=== PATIENT | female | born 1940 | race Caucasian/White ===

== ENCOUNTER → 2019-09-20 | Outpatient (CLI) | payer MEDICARE ==
--- NOTE | 2019-09-20 10:32 | Diagnostic Imaging Report ---
INDICATION: Pain. COMPARISON: Imaging of the pelvis from same date. TECHNIQUE: 3 radiographs lumbar spine dated 09/20/2019. FINDINGS: 5 lumbar type vertebral bodies are present. Mild apex left curvature of the visualized thoracolumbar spine. 6 mm grade 1 anterolisthesis of L5 on S1. Minimal 2 mm retrolisthesis of L4 on L5. Besides endplate degenerative changes, vertebral body heights are otherwise well-maintained. Severe disc space height loss at L5/S1. Moderate disc space height loss at L2/L3, L3/L4, and L4/L5. Multilevel small anterior osteophytes. Scattered facet joint degenerative changes, including severe degenerative changes on the left at L4/L5 and L5/S1. No acute fracture. Advanced vascular calcifications. IMPRESSION: Moderate to severe multilevel degenerative changes as described above, by far greatest within the lower lumbar spine on the left. Grade 1 anterolisthesis of L5 on S1 with minimal retrolisthesis of L4 on L5. Morrison left curvature of the spine. Advanced vascular calcifications. Dictated by: Dictated on workstation # [id number]
--- NOTE | 2019-09-20 10:34 | Diagnostic Imaging Report ---
INDICATION: Pelvic pain COMPARISON: Imaging from same date. TECHNIQUE: Single radiograph of the pelvis dated 09/20/2019. FINDINGS: Degenerative changes are noted within the lower lumbar spine, including advanced degenerative changes with sclerosis of the facet joints on the left. Chronic right inferior pubic ramus fracture. No acute fracture or dislocation. Moderate degenerative changes within the bilateral hips with joint space narrowing and sclerosis of the acetabular roof. Sacroiliac joints are intact. Advanced vascular calcifications. Pubic symphysis is intact. IMPRESSION: No acute osseous abnormality with scattered degenerative changes, particularly within the left lower lumbar spine and bilateral hips. Advanced vascular calcifications. Dictated by: Dictated on workstation # [id number]
== END ==
LOC: RAD 09:39
PROVIDERS: ATTEND Chiropractor Sports Physician
DX: M47.816 Spondylosis without myelopathy or radiculopathy, lumbar region (principal); M16.10 Unilateral primary osteoarthritis, unspecified hip
CPT/HCPCS: 72100; 72170

== ENCOUNTER 2020-05-13 05:29 | Outpatient (RCR) | payer MEDICARE ==
[~2020-05-13] VITALS: Ht 170.2 cm; Wt 41.8 kg
[~2020-05-13 05:29] MED LIST: ASPI-999 PO; LOSA25TA41 PO; MULT-974 PO
== END 2020-05-13 09:43 | disposition home or self-care (01) ==
LOC: PREOP 05:29
PROVIDERS: ATTEND Internal Medicine
DX: Z01.812 Encounter for preprocedural laboratory examination (principal); Z20.822 Contact with and (suspected) exposure to COVID-19
CPT/HCPCS: 87635

== ENCOUNTER 2020-05-15 07:00 | Day surgery (SDC) | payer MEDICARE ==
--- NOTE | 2020-05-04 07:40 | HISTORY AND PHYSICAL ---
DATE OF SERVICE: COLONOSCOPY HISTORY AND PHYSICAL DATE OF ADMISSION: 05/08/2020. HISTORY OF PRESENT ILLNESS: The patient is an 80-year-old white female referred for screening colonoscopy by Dr. Mccormick. The patient reports that she has had about a 20-pound weight loss over the past 1 to 2 years and it likely may have begun after the of her four years ago. She has not previously had colonoscopy. She was concerned about her weight loss. She denies any change in bowel habit, diarrhea or constipation. She has noted no bright red blood per rectum, melena or abdominal pain. PAST MEDICAL HISTORY: Significant for hypertension and no known history for coronary artery disease or stroke. MEDICATIONS: She does take a baby aspirin for primary prevention. Other medications include losartan 25 mg daily and carvedilol 6.25 mg b.i.d. FAMILY HISTORY: She had one sister, who of gastric cancer. She is not aware of any family history for colon cancer. She is the youngest of 12 with her only two living siblings that remain. She is not aware of any other family history for malignancy. SOCIAL HISTORY: She has a 50 plus pack year smoking history, but quit over 10 years ago. She reports one glass of wine most evenings with no reported heavier consumption. She is . REVIEW OF SYSTEMS: CONSTITUTIONAL: Positive for weight loss. Denies night sweats, chills or fever. GASTROINTESTINAL: As noted in the HPI. The patient also denies dysphagia, indigestion or in need of an acid medication. PULMONARY: The patient denies dyspnea on exertion, wheezing or cough. CARDIOVASCULAR: The patient did report some chronic dizziness with no presyncope or syncope. No chest discomfort, orthopnea, PND or pedal edema noted. PHYSICAL EXAMINATION: GENERAL: Reveals a thin white female in no acute distress. VITAL SIGNS: Weight 91 pounds, BMI 19 and blood pressure 120/80. NECK: Revealed no JVD, adenopathy or bruits. CHEST: Clear to auscultation. CARDIOVASCULAR: Revealed a regular rate and rhythm without significant murmur, S3 or S4. ABDOMEN: Soft, supple without mass, organomegaly or tenderness. No axillary adenopathy noted. No inguinal adenopathy noted and no pain to palpation. No bruits appreciated. EXTREMITIES: Revealed no cyanosis, clubbing or edema. ASSESSMENT AND PLAN: The patient is set up for screening colonoscopy on . She is to hold the aspirin and continue her other medications unchanged. We will be performing the procedure under anesthesia due to smoking history and age. I thank you for the referral of this pleasant lady. Job ID: [id number] DocumentID: [id number] Dictated Date: 04/30/2020 11:08:36 Laundry Agent Date: 04/30/2020 11:23:56 Dictated By: PAVAN MENESES MD
[2020-05-15] VITALS (7 sets, daily range): BP systolic 102–162; BP diastolic 53–79
[~2020-05-15] VITALS: Ht 170.2 cm; Wt 41.8 kg
[2020-05-15] MEDS ORDERED: LACTATED RINGERS 1,000 ML IV ONE (07:06)
[2020-05-15] MEDS ORDERED: LACTATED RINGERS 1,000 ML IV STA (07:10)
[2020-05-15] MEDS ORDERED: LIDOCAINE JELLY 2% 6 ML SYRINGE MM PRN (07:15)
[2020-05-15] MEDS ORDERED: PROPOFOL INJECTION 50 ML IV ONE (07:19)
[2020-05-15] MEDS ORDERED: LIDOCAINE JELLY 2% 6 ML SYRINGE ONE (07:56)
--- NOTE | 2020-05-15 08:33 | Pre-Op Note & Conscious Sedat ---
Pre-Operative Progress Note H&P Reviewed The H&P was reviewed, patient examined and no changes noted. Date H&P Reviewed: May 15, 2020 Time H&P Reviewed: 07:45 Conscious Sedation Pre-Proced ASA Score 2 For ASA 3 and 4: Consider anesthesia and medical clearance. Also, for patients with a history of failed moderate sedation consider anesthesia. Airway Lungs Heart ASA score ASA 1: a normal healthy patient ASA 2: a patient with a mild systemic disease (mid diabetes, controlled hypertension, obesity ASA 3: a patient with a severe systemic disease that limits activity (angina, COPD, prior Myocardial infarction) ASA 4: a patient with an incapacitating disease that is a constant threat to life (CHF, renal failure) ASA 5: a moribund patient not expected to survive 24 hrs. (ruptured aneurysm) ASA 6: a declared brain- patient whose organs are being harvested. For emergent operations, add the letter E after the classification Mallampati Classification Grade 2 Sedation Plan Analgesia, Amnesia, Plan communicated to team members, Discussed options with patient/fam, Discussed risks with patient/fam The patient is an appropriate candidate to undergo the planned procedure, sedation, and anesthesia. The patient immediately re-assessed prior to indication. PAVAN MENESES MD May 15, 2020 08:33
--- NOTE | 2020-05-15 10:15 | Anesthesia-General Post-Op ---
MAC Patient Condition Mental Status/LOC: Same as Preop Cardiovascular: Satisfactory Nausea/Vomiting: Absent Respiratory: Satisfactory Pain: Controlled Complications: Absent Post Op Complications Complications None Follow Up Care/Instructions Patient Instructions None needed. Anesthesiology Discharge Order Discharge Order Patient is doing well, no complaints, stable vital signs, no apparent adverse anesthesia problems. No complications reported per nursing. SANTA HUA CRNA May 15, 2020 10:15
--- NOTE | 2020-05-15 13:52 | OPERATIVE REPORT ---
DATE OF SERVICE: COLONOSCOPY SUMMARY INDICATION FOR THE PROCEDURE: Screening colonoscopy. DESCRIPTION OF PROCEDURE: The patient was placed in the left lateral decubitus position. Prior to undergoing colonoscopy, digital rectal evaluation was performed. Anal sphincter tone was normal and the perianal reflexes intact. No abnormalities were noted on digital inspection of anal canal or distal rectal vault. The colonoscope was then inserted into the rectum and under direct visualization advanced to cecum. The cecum was identified by identification of the ileocecal valve and cecal strap. Photographic documentation was obtained. Quality of prep was good. FINDINGS: There was no evidence for internal or external hemorrhoids and the rectum was unremarkable. A moderate number of small to medium size sigmoid diverticulum were present with haustral hypertrophy, but no endoscopic evidence for diverticulitis. No other sigmoid abnormalities were noted. The descending colon, splenic flexure, transverse colon, ascending colon and hepatic flexure were unremarkable. Present in the cecum was vascular lesion compatible with angiodysplasia. No stigmata for increased bleeding risk was noted and there was no blood noted. Photograph was obtained. No other cecal abnormalities were identified. ASSESSMENT: 1. Moderate diverticular disease confined to the sigmoid colon was present without evidence for diverticulitis. 2. Lesion compatible with angiodysplasia noted in the cecum with no evidence for bleeding. The patient was reassured by today's findings, considering age and medical comorbidities, would not advocate future screening colonoscopy. I thank you for the referral of this pleasant lady. Job ID: [id number] DocumentID: [id number] Dictated Date: 05/15/2020 09:28:43 Electronic Equipment Maint Tech Date: 05/15/2020 13:52:14 Dictated By: PAVAN MENESES MD [facility]
== END 2020-05-15 09:30 | disposition home or self-care (01) ==
LOC: ENDO 07:00
PROVIDERS: ATTEND Internal Medicine
DX: Z12.11 Encounter for screening for malignant neoplasm of colon (principal); K57.30 Diverticulosis of large intestine without perforation or abscess without bleeding; I10 Essential (primary) hypertension; Z79.899 Other long term (current) drug therapy; Z79.82 Long term (current) use of aspirin; Z88.0 Allergy status to penicillin; Z88.2 Allergy status to sulfonamides; Z88.5 Allergy status to narcotic agent; Z87.891 Personal history of nicotine dependence; Z80.0 Family history of malignant neoplasm of digestive organs

== ENCOUNTER → 2020-07-21 | Outpatient (CLI) | payer MEDICARE ==
[~2020-07-21] MED LIST changes: +CATHETER FLUSH 10 ML SYR IV PRN; +HOLD METFORMIN - RECEIVED CONTRAST 20 ML VIAL IV SCH; +IOHEXOL 350 MG/ML 100 ML (OMNIPAQUE 350) VIAL IV ONE; +NS 100 ML (IVPB) BAG IV ONE
--- NOTE | 2020-07-21 12:16 | Diagnostic Imaging Report ---
EXAMINATION: CT head and neck with and without contrast. INDICATION: Lump in throat. Contiguous axial sections were taken from skull both before and after administration of intravenous contrast. Additional images were also taken from the midportion of the skull to the lung apices after contrast was administered. All CT scans use one or more of the following dose optimizing techniques: automated exposure control, MA and/or KvP adjustment based on patient size and exam type or iterative reconstruction. There are no prior studies available for comparison. By history the patient has a palpable abnormality involving the neck in the right supraclavicular region. Reportedly, a marker was placed over the area of concern but the marker is not well-visualized on this exam. There is no discrete solid or cystic mass within the right supraclavicular region of the neck. There is no clear evidence for adenopathy either. However the images through the lung apices do show that there is a pleural-based somewhat spiculated mass along the anterior aspect of the right upper lobe. This measures 1.3 x 1.3 cm. This finding is worrisome for neoplasm. I would recommend that a CT of the chest be performed for further evaluation. If previous CT examinations are available they would be helpful for comparison as well. There are also mild emphysematous changes involving both upper lobes. There is no acute cardiopulmonary abnormality noted. The submandibular and parotid glands are symmetrical and within normal limits. The thyroid gland does not seem to be enlarged and there is no definite nodule associated with the thyroid gland. The tracheal air shadow is not compressed or deviated. The bone windows show reversal of the normal lordosis of the cervical spine. There is also severe degenerative disc and bony disease at C4-C5, C5-C6, C6-C7 and C7-T1. There is moderate central stenosis at C6-C7 and C7-T1. The images through the skull show no mass, shift of the midline or hemorrhage. The ventricles are not abnormally dilated. There is no abnormal enhancement on the postcontrast series to suggest a neoplastic or infectious process. There is cortical atrophy and periventricular encephalomalacia. The bone windows are unremarkable for a fracture or for a destructive lesion. There is no acute abnormality involving the orbits. There does appear to have been a prior scleral banding procedure. The sinuses are generally clear. IMPRESSION: 1. There is no mass identified in the right supraclavicular region in the area of the patient's palpable abnormality. 2. The spiculated mass along the right upper lobe is worrisome for malignancy. Recommendations as above. 3. There is no acute intracranial abnormality noted and there is no abnormal enhancement to indicate a neoplastic or infectious process. 4. If clinical concern regarding an underlying intracranial abnormality persists, then MRI would be recommended for additional study. Dictated by: Dictated on workstation # [id number]
== END ==
LOC: RAD 10:26
PROVIDERS: ATTEND Nurse Practitioner Family
DX: J43.9 Emphysema, unspecified (principal); M50.33 Other cervical disc degeneration, cervicothoracic region; M48.03 Spinal stenosis, cervicothoracic region; G31.9 Degenerative disease of nervous system, unspecified; G93.89 Other specified disorders of brain; R91.8 Other nonspecific abnormal finding of lung field; R59.1 Generalized enlarged lymph nodes
CPT/HCPCS: 70470; 70491

== ENCOUNTER → 2020-07-28 | Outpatient (CLI) | payer MEDICARE ==
--- NOTE | 2020-07-28 10:47 | Diagnostic Imaging Report ---
PROCEDURE: CT chest with contrast only. TECHNIQUE: Multiple contiguous axial images were obtained through the chest after administration of intravenous contrast. Auto Exposure Controls were utilized during the CT exam to meet ALARA standards for radiation dose reduction. INDICATION: Pulmonary mass. CORRELATION STUDY: CT neck 07/21/2020. FINDINGS: There is rather advanced emphysematous change about the lung parenchyma. In the anterior aspect of the right upper lobe, there is a 14 x 12 x 15 mm spiculated mass. This extends to the pleural surface with adjacent pleural thickening. Heart size is enlarged with scattered coronary artery calcification. Rather extensive atherosclerotic change of the thoracic aorta. No dissection or aneurysm. No pathologically enlarged mediastinal and/or hilar lymph nodes. Extensive calcification of the visualized upper abdominal aorta. Visualized osseous structures demonstrate no acute abnormality. IMPRESSION: 15 mm right upper lobe pulmonary mass, highly worrisome for primary lung cancer. No findings to suggest thoracic metastatic disease. Dictated by: Dictated on workstation # [id number]
== END ==
LOC: RAD 09:51
PROVIDERS: ATTEND Family Medicine
DX: R91.8 Other nonspecific abnormal finding of lung field (principal)
CPT/HCPCS: 71260

== ENCOUNTER 2020-09-26 09:51 | Emergency (ER) | payer MEDICARE ==
[~2020-09-26] VITALS: Ht 170 cm; Wt 40.0 kg
[~2020-09-26 09:51] MED LIST changes: -CATHETER FLUSH 10 ML SYR IV PRN; -HOLD METFORMIN - RECEIVED CONTRAST 20 ML VIAL IV SCH; -IOHEXOL 350 MG/ML 100 ML (OMNIPAQUE 350) VIAL IV ONE; -NS 100 ML (IVPB) BAG IV ONE
[2020-09-26 10:27] LABS: BASOPHILS % (AUTO) 1 % (0-10); EOSINOPHILS # (AUTO) 0.1 10^3/uL (0.0-0.3); EOSINOPHILS % (AUTO) 1 % (0-10); HEMATOCRIT 39 % (35-52); HEMOGLOBIN 13.6 g/dL (11.5-16.0); LYMPHOCYTES # (AUTO) 1.1 10^3/uL (1.0-4.0); LYMPHOCYTES % (AUTO) 14 % (12-44); MEAN CORPUSCULAR HEMOGLOBIN 35 pg (25-34); MEAN CORPUSCULAR HGB CONC 35 g/dL (32-36); MEAN CORPUSCULAR VOLUME 102 fL (80-99); MEAN PLATELET VOLUME 9.2 fL (9.0-12.2); MONOCYTES # (AUTO) 0.7 10^3/uL (0.0-1.0); MONOCYTES % (AUTO) 8 % (0-12); NEUTROPHILS # (AUTO) 5.9 10^3/uL (1.8-7.8); NEUTROPHILS % (AUTO) 76 % (42-75); PLATELET COUNT 206 10^3/uL (130-400); WHITE BLOOD COUNT 7.7 10^3/uL (4.3-11.0)
[2020-09-26 10:37] LABS: CHLORIDE 98 MMOL/L (98-107); POTASSIUM 4.8 MMOL/L (3.6-5.0); SODIUM 131 MMOL/L (135-145)
[2020-09-26 10:38] LABS: CALCIUM 9.1 MG/DL (8.5-10.1)
[2020-09-26 10:39] LABS: GLUCOSE 108 MG/DL (70-105); TOTAL PROTEIN 6.6 GM/DL (6.4-8.2)
[2020-09-26 10:40] LABS: CARBON DIOXIDE 21 MMOL/L (21-32)
[2020-09-26 10:41] LABS: BILIRUBIN,TOTAL 1.2 MG/DL (0.1-1.0)
[2020-09-26 10:43] LABS: ALKALINE PHOSPHATASE 70 U/L (40-136); CREATININE SERUM 0.75 MG/DL (0.60-1.30); GFR ESTIMATED > 60
[2020-09-26 10:44] LABS: BUN/CREATININE RATIO 16
[2020-09-26 10:46] LABS: ALANINE AMINOTRANSFERASE 17 U/L (0-55); MAGNESIUM 2.1 MG/DL (1.6-2.4)
--- NOTE | 2020-09-26 11:13 | Diagnostic Imaging Report ---
PROCEDURE: CT head and CT cervical spine without contrast. TECHNIQUE: Multiple contiguous axial images were obtained through the brain and cervical spine without the use of intravenous contrast. Sagittal and coronal reformations through the cervical spine were then performed. Auto Exposure Controls were utilized during the CT exam to meet ALARA standards for radiation dose reduction. INDICATION: Fall from syncope, head and neck pain. COMPARISON: Head CT 07/21/2020. DISCUSSION: Head: Diffuse brain volume loss is stable, likely age related. White matter hypoattenuation is nonspecific though not greater than expected for age related chronic small vessel ischemic disease, stable. Chronic lacunar infarct within the left basal ganglia is stable. No acute intracranial hemorrhage, mass, midline shift, or hydrocephalus. The orbits, sinuses, mastoid air cells, and calvarium are unremarkable. Cervical spine: Reversal of the normal cervical lordosis is again noted, chronic. Advanced degenerative disc disease is noted diffusely. Grade 1 anterolisthesis of C3 on C4 and C4 on C5 and grade 1 retrolisthesis of C5 on C6 and C6 on C7 is stable. There are acute mildly displaced posterior spinous process fractures involving the 6th and 7th levels. Severe atherosclerotic plaque noted within the bilateral carotid bifurcations. Emphysema and scarring noted within the lung apices. IMPRESSION: 1. No acute intracranial abnormality identified. 2. Acute spinous process fractures at the C6 and C7 levels. Dictated by: Dictated on workstation # [id number]
--- NOTE | 2020-09-26 11:15 | Diagnostic Imaging Report ---
PROCEDURE: CT lumbar spine without contrast. TECHNIQUE: Multiple contiguous axial images were obtained through the lumbar spine without the use of intravenous contrast. Sagittal and coronal reformations were then performed. Auto Exposure Controls were utilized during the CT exam to meet ALARA standards for radiation dose reduction. INDICATION: Fall with low back pain. COMPARISON: None. DISCUSSION: Levoscoliosis is noted within the lumbar spine. Advanced degenerative disc disease is present at L4-L5 and L5-S1. Advanced facet arthropathy is noted diffusely. Grade 1 anterolisthesis of L5 on S1, likely chronic. No acute compression fracture identified. Severe atherosclerotic plaque is noted throughout the aorta which is normal in caliber otherwise. Soft tissues are unremarkable. IMPRESSION: 1. Advanced degenerative disease noted within the lumbar spine with malalignment as described. No acute fracture. Dictated by: Dictated on workstation # [id number]
--- NOTE | 2020-09-26 11:33 | Diagnostic Imaging Report ---
PROCEDURE: CT pelvis without contrast. TECHNIQUE: Multiple contiguous axial images were obtained through the pelvis without the use of intravenous contrast. Sagittal and coronal reformations were performed. Auto Exposure Controls were utilized during the CT exam to meet ALARA standards for radiation dose reduction. INDICATION: Trauma, fall, pain. CORRELATION STUDY: None FINDINGS: There is rather pronounced bony demineralization present. Findings are positive for prior old right pubic rami fractures. No definitive acute displaced fracture is present. However, subtle fractures could go undetected owing to the pronounced bony demineralization. Pubic symphysis and SI joints are maintained. Very slight cortical irregularity inferior aspect of the sacrum, however, without definitive fracture. Sacrum otherwise appears intact. Bilateral hip joints demonstrate mild to moderately advanced degenerative changes to be present. The femoral head acetabular relationships are maintained. Rather significant aortoiliac vascular calcification. Moderate stool retention with extensive colonic diverticulosis. No significant pelvic fluid or soft tissue hematoma. IMPRESSION: 1. Negative for acute displaced pelvic fracture. There is rather pronounced bony demineralization. If symptoms persist, short-term follow-up repeat imaging and/or MRI would be recommended. Dictated by: Dictated on workstation # [id number]
[2020-09-26] MEDS ORDERED: TETANUS,DIPTH,PERTUSS P/F (BOOSTRIX) 0.5 ML VIAL IM ONE (11:45)
[2020-09-26] MEDS ORDERED: ACETAMINOPHEN 325 MG TABLET PO ONE (11:45)
[2020-09-26 12:02] VITALS: BP_SYST 157; BP_SYST 173; BP_SYST 174; BP_DIAS 84; BP_DIAS 87; BP_DIAS 90
[2020-09-26 12:05] LABS: BILIRUBIN,URINE NEGATIVE (NEGATIVE); CLARITY,URINE CLOUDY; COLOR,URINE YELLOW; GLUCOSE, URINE (UA) NEGATIVE (NEGATIVE); KETONES,URINE NEGATIVE (NEGATIVE); LEUKOCYTE ESTERASE ,URINE 2+ (NEGATIVE); NITRITE,URINE NEGATIVE (NEGATIVE); PH,URINE 6.5 (5-9); PROTEIN,URINE TRACE (NEGATIVE)
[2020-09-26 12:20] LABS: WBC,URINE 50-100 /HPF
[2020-09-26 12:21] LABS: BACTERIA,URINE FEW /HPF; SQUAMOUS EPITHELIAL CELL,UR 0-2 /HPF
--- NOTE | 2020-09-26 14:07 | ED Syncope ---
General Chief Complaint: Trauma-Non Activation Stated Complaint: FALL/MULTIPLE R SIDE INJURIES Nursing Triage Note: ARRIVED VIA AMB TO ROOM 06. STATES SHE WAS SITTING IN HER CHAIR LAST NIGHT ABOUT 6PM AND THE NEXT THING SHE KNEW SHE WAS ON THE FLOOR. DOES NOT REMEMBER FALLING. POSITIVE LOC FOR APPX 15 MINUTES. TODAY COMPLAINS OF LOW BACK, RIGHT SHOULDER, RIGHT ELBOW, AND THE BACK OF HER HEAD HURTING. PT DOES NOT TAKE BLOOD THINNERS. Source of Information: Patient, Family Exam Limitations: No Limitations History of Present Illness Date Seen by Provider: Sep 26, 2020 Time Seen by Provider: 09:56 Initial Comments This 80-year-old woman presents to the emergency room with injuries related to a fall, possibly related to a syncopal episode. Injuries occurred last night. She reports remembering setting her alarm in the laundry room. The next thing she remembered was waking up on the floor with injuries to her posterior scalp, neck, shoulder, and lower back. She has a scabbed skin wound on the posterior scalp. She has a skin tear on the right elbow. There is neck tenderness and a cervical collar was applied during assessment. Patient has been ambulatory. She does not know exactly how long she was unconscious but believes it was several minutes but not hours. She denies any chest pain or shortness of breath. Patient reports recently being evaluated for a pulmonary lesion. She was referred to pulmonology in [place] and underwent PET scanning. Further evaluation is pending. Allergies and Home Medications Allergies Coded Allergies: Penicillins (Verified Allergy, Unknown, 05/08/20) Sulfa (Sulfonamide Antibiotics) (Verified Allergy, Unknown, 05/08/20) codeine (Verified Allergy, Unknown, 05/08/20) Home Medications Aspirin 81 Mg Tab.chew, 81 MG PO DAILY, (Reported) Losartan Potassium 25 Mg Tablet, 25 MG PO DAILY, (Reported) Multivitamin 1 Each Tablet, 1 EACH PO DAILY, (Reported) Patient Home Medication List Home Medication List Reviewed: Yes Review of Systems Constitutional: no symptoms reported EENTM: see HPI Respiratory: no symptoms reported Cardiovascular: see HPI Gastrointestinal: no symptoms reported Genitourinary: no symptoms reported : No Musculoskeletal: see HPI Skin: see HPI Psychiatric/Neurological: See HPI Past Icricwp-Odxhfc-Ehkmxb Hx Past Med/Social Hx: Reviewed Nursing Past Med/Soc Hx Patient Social History Alcohol Use: Occasionally Uses Number of Drinks Today: Alcohol Beverage of Choice: Wine Smoking Status: Former Smoker Type Used: Cigarettes Former Smoker, Quit: Apr 27, 2011 2nd Hand Smoke Exposure: No Recent Infectious Disease Expo: No Recent Hopitalizations: No Immunizations Up To Date Tetanus Booster (TDap): Unknown Seasonal Allergies Seasonal Allergies: No Past Medical History Surgeries: Yes (VARICOSE VEIN STRIPPING) Appendectomy, Hysterectomy, Tonsillectomy Respiratory: Yes (Pulmonary lesion) Currently Using CPAP: No Currently Using BIPAP: No Cardiac: Yes ("WEAK HEART MUSCLE") Neurological: No Female Reproductive Disorders: Denies [employer] 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 oz. kg; 13.00 BMI Method: General Appearance: WD/WN, Mild Distress HEENT: PERRL/EOMI, Normal ENT Inspection, Other (Scabbed wound on the right posterior scalp) Neck: Normal Inspection, Tender Midline Cardiovascular: Regular Rate, Rhythm, No Edema, No Murmur Respiratory: Lungs Clear, Normal Breath Sounds, No Accessory Muscle Use, No Respiratory Distress Gastrointestinal: Normal Bowel Sounds, Non Tender, Soft Back: Normal Inspection, No Vertebral Tenderness (Lumbar spine) Extremities: Normal Inspection, No Pedal Edema, Other (Pain with range of motion of the right shoulder but no pain with palpation. 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 Norm as Tested Cranial Nerves: Normal Hearing, Normal Speech, PERRL Motor/Sensory: No Motor Deficit, No Sensory Deficit Skin: Normal Color, Warm/Dry Progress/Results/Core Measures Results/Orders Lab Results Laboratory Tests Test 09/26/20 10:20 09/26/20 11:59 09/26/20 12:20 Range/Units White Blood Count 7.7 4.3-11.0 10^3/uL Red Blood Count 3.87 3.80-5.11 10^6/uL Hemoglobin 13.6 11.5-16.0 g/dL Hematocrit 39 35-52 % Mean Corpuscular Volume 102 H 80-99 fL Mean Corpuscular Hemoglobin 35 H 25-34 pg Mean Corpuscular Hemoglobin Concent 35 32-36 g/dL Red Cell Distribution Width 12.2 10.0-14.5 % Platelet Count 206 130-400 10^3/uL Mean Platelet Volume 9.2 9.0-12.2 fL Immature Granulocyte % (Auto) 0 % Neutrophils (%) (Auto) 76 H 42-75 % Lymphocytes (%) (Auto) 14 12-44 % Monocytes (%) (Auto) 8 0-12 % Eosinophils (%) (Auto) 1 0-10 % Basophils (%) (Auto) 1 0-10 % Neutrophils # (Auto) 5.9 1.8-7.8 10^3/uL Lymphocytes # (Auto) 1.1 1.0-4.0 10^3/uL Monocytes # (Auto) 0.7 0.0-1.0 10^3/uL Eosinophils # (Auto) 0.1 0.0-0.3 10^3/uL Basophils # (Auto) 0.0 0.0-0.1 10^3/uL Immature Granulocyte # (Auto) 0.0 0.0-0.1 10^3/uL Sodium Level 131 L 135-145 MMOL/L Potassium Level 4.8 3.6-5.0 MMOL/L Chloride Level 98 98-107 MMOL/L Carbon Dioxide Level 21 21-32 MMOL/L Anion Gap 12 5-14 MMOL/L Blood Urea Nitrogen 12 7-18 MG/DL Creatinine 0.75 0.60-1.30 MG/DL Estimat Glomerular Filtration Rate > 60 BUN/Creatinine Ratio 16 Glucose Level 108 H 70-105 MG/DL Calcium Level 9.1 8.5-10.1 MG/DL Corrected Calcium 9.1 8.5-10.1 MG/DL Magnesium Level 2.1 1.6-2.4 MG/DL Total Bilirubin 1.2 H 0.1-1.0 MG/DL Aspartate Amino Transf (AST/SGOT) 21 5-34 U/L Alanine Aminotransferase (ALT/SGPT) 17 0-55 U/L Alkaline Phosphatase 70 40-136 U/L Troponin I 0.029 H < 0.028 <0.028 NG/ML Total Protein 6.6 6.4-8.2 GM/DL Albumin 4.0 3.2-4.5 GM/DL Serum Alcohol < 10 <10 MG/DL Urine Color YELLOW Urine Clarity CLOUDY Urine pH 6.5 5-9 Urine Specific [place] 1.020 1.016-1.022 Urine Protein TRACE H NEGATIVE Urine Glucose (UA) NEGATIVE NEGATIVE Urine Ketones NEGATIVE NEGATIVE Urine Nitrite NEGATIVE NEGATIVE Urine Bilirubin NEGATIVE NEGATIVE Urine Urobilinogen 0.2 < = 1.0 MG/DL Urine Leukocyte Esterase 2+ H NEGATIVE Urine RBC (Auto) 2+ H NEGATIVE Urine RBC 5-10 H /HPF Urine WBC 50-100 H /HPF Urine Squamous Epithelial Cells 0-2 /HPF Urine Crystals NONE /LPF Urine Bacteria FEW H /HPF Urine Casts NONE /LPF Urine Mucus NEGATIVE /LPF Urine Culture Indicated YES My Orders Orders - RADHA SCOTT MD Ct Head/Cervical Spine Wo (09/26/20 10:17) Ct Lumbar Spine Wo (09/26/20 10:17) Ct Pelvis Wo (09/26/20 10:17) Cbc With Automated Diff (09/26/20 10:17) Comprehensive Metabolic Panel (09/26/20 10:17) Magnesium (09/26/20 10:17) Troponin I (09/26/20 10:17) Ua Culture If Indicated (09/26/20 10:17) Ed Iv/Invasive Line Start (09/26/20 10:17) Ekg Tracing (09/26/20 10:17) Monitor-Rhythm Ecg Trace Only (09/26/20 10:17) Orthostatic Vital Signs (Adult (09/26/20 10:17) Troponin I (09/26/20 12:20) Alcohol (09/26/20 10:59) Dipht,Pertuss(Acell),Tet Adult (Boostrix (09/26/20 11:45) Acetaminophen Tablet/Caplet (Tylenol T (09/26/20 11:45) Urine Culture (09/26/20 11:59) Medications Given in ED Current Medications Medications Dose Ordered Sig/Murtaza Route Start Time Stop Time Status Last Admin Dose Admin Acetaminophen 650 mg ONCE ONCE PO 09/26/20 11:45 09/26/20 11:46 DC 09/26/20 12:04 650 MG Diphtheria/ Tetanus/Acell Pertussis 0.5 ml ONCE ONCE IM 09/26/20 11:45 09/26/20 11:46 DC 09/26/20 12:05 0.5 ML Vital Signs/I&O 09/26/20 09/26/20 09/26/20 10:00 12:02 14:13 Temp 37.3 Pulse 63 62 79 64 66 Resp 16 16 B/P (MAP) 159/64 (95) 157/84 (108) 179/81 174/87 (116) 173/90 (117) Pulse Ox 99 96 O2 Delivery Room Air Room Air Blood Pressure Mean: 108 Progress Progress Note : Progress Note C-collar was applied and imaging studies were obtained. CT of the cervical spine demonstrated spinous processes fractures of C6 and C7. These were discussed with Dr. Kaiser as orthopedic surgery is not available today. Dr. Kaiser and I agree that these injuries do not require emergent orthopedic or general surgical attention. Patient was given a soft collar for support and comfort. Tylenol was given for pain. The remaining imaging studies showed no significant traumatic injuries. The cause of her syncope was not determined. EKG demonstrated a left bundle branch block with no prior EKG for comparison. Patient denied chest pain. I discussed the case with Dr. Daniel. He and I agree the patient should be admitted for further observation. Patient declined admission. Benefits and needs for admission were reviewed with the patient. She expressed understanding but declined admission. We discussed her urinary tract infection as well. She wishes to take the Cipro she has at home to treat this. Close follow-up is recommended. She has an appointment with Dr. Daniel on Monday which she plans to keep. She is establishing with him as a transfer of her cardiology care from [place]. Initial ECG Impression Date: Sep 26, 2020 Initial ECG Impression Time: 10:52 Initial ECG Rate: 57 Comment Sinus rhythm with left bundle branch block. No STEMI appreciated. Diagnostic Imaging Diagonstic Imaging: CT Plain Films/CT/US/NM/MRI: c-spine, head Comments CT of the head and cervical spine viewed by me and report reviewed. See report below: NAME: JAMMIE SPRAGUENATALI ALCANTAR REC#: [id number] PT STATUS: DEP ER : 1940 PHYSICIAN: RADHA SCOTT MD ADMIT DATE: 09/26/20/ER Signed Date of Exam:09/26/20 CT HEAD/CERVICAL SPINE WO PROCEDURE: CT head and CT cervical spine without contrast. TECHNIQUE: Multiple contiguous axial images were obtained through the brain and cervical spine without the use of intravenous contrast. Sagittal and coronal reformations through the cervical spine were then performed. Auto Exposure Controls were utilized during the CT exam to meet ALARA standards for radiation dose reduction. INDICATION: Fall from syncope, head and neck pain. COMPARISON: Head CT 07/21/2020. DISCUSSION: Head: Diffuse brain volume loss is stable, likely age related. White matter hypoattenuation is nonspecific though not greater than expected for age related chronic small vessel ischemic disease, stable. Chronic lacunar infarct within the left basal ganglia is stable. No acute intracranial hemorrhage, mass, midline shift, or hydrocephalus. The orbits, sinuses, mastoid air cells, and calvarium are unremarkable. Cervical spine: Reversal of the normal cervical lordosis is again noted, chronic. Advanced degenerative disc disease is noted diffusely. Grade 1 anterolisthesis of C3 on C4 and C4 on C5 and grade 1 retrolisthesis of C5 on C6 and C6 on C7 is stable. There are acute mildly displaced posterior spinous process fractures involving the 6th and 7th levels. Severe atherosclerotic plaque noted within the bilateral carotid bifurcations. Emphysema and scarring noted within the lung apices. IMPRESSION: 1. No acute intracranial abnormality identified. 2. Acute spinous process fractures at the C6 and C7 levels. Dictated by: Dictated on workstation # [id number] Dict: 09/26/20 1046 Trans: 09/26/20 1530 [facility] [id number] Interpreted by: EJ BECK MD Electronically signed by: EJ BECK MD 09/26/20 1530 Diagonstic Imaging: CT Plain Films/CT/US/NM/MRI: other (Lumbar spine) Comments CT lumbar spine viewed by me and report reviewed. See report below: NAME: ELI SPRAGUE [facility] REC#: [id number] PT STATUS: DEP ER : 1940 PHYSICIAN: RADHA SCOTT MD ADMIT DATE: 09/26/20/ER Signed Date of Exam:09/26/20 CT LUMBAR SPINE WO PROCEDURE: CT lumbar spine without contrast. TECHNIQUE: Multiple contiguous axial images were obtained through the lumbar spine without the use of intravenous contrast. Sagittal and coronal reformations were then performed. Auto Exposure Controls were utilized during the CT exam to meet ALARA standards for radiation dose reduction. INDICATION: Fall with low back pain. COMPARISON: None. DISCUSSION: Levoscoliosis is noted within the lumbar spine. Advanced degenerative disc disease is present at L4-L5 and L5-S1. Advanced facet arthropathy is noted diffusely. Grade 1 anterolisthesis of L5 on S1, likely chronic. No acute compression fracture identified. Severe atherosclerotic plaque is noted throughout the aorta which is normal in caliber otherwise. Soft tissues are unremarkable. IMPRESSION: 1. Advanced degenerative disease noted within the lumbar spine with malalignment as described. No acute fracture. Dictated by: Dictated on workstation # [id number] Dict: 09/26/20 1052 Trans: 09/26/20 1530 [facility] [id number] Interpreted by: EJ BECK MD Electronically signed by: EJ BECK MD 09/26/20 1530 Diagonstic Imaging: CT Plain Films/CT/US/NM/MRI: pelvis Comments NAME: ELI SPRAGUE [facility] REC#: [id number] PT STATUS: REG ER : 1940 PHYSICIAN: RADHA SCOTT MD ADMIT DATE: 09/26/20/ER Draft Date of Exam:09/26/20 CT PELVIS WO PROCEDURE: CT pelvis without contrast. TECHNIQUE: Multiple contiguous axial images were obtained through the pelvis without the use of intravenous contrast. Sagittal and coronal reformations were performed. Auto Exposure Controls were utilized during the CT exam to meet ALARA standards for radiation dose reduction. INDICATION: Trauma, fall, pain. CORRELATION STUDY: None FINDINGS: There is rather pronounced bony demineralization present. Findings are positive for prior old right pubic rami fractures. No definitive acute displaced fracture is present. However, subtle fractures could go undetected owing to the pronounced bony demineralization. Pubic symphysis and SI joints are maintained. Very slight cortical irregularity inferior aspect of the sacrum, however, without definitive fracture. Sacrum otherwise appears intact. Bilateral hip joints demonstrate mild to moderately advanced degenerative changes to be present. The femoral head acetabular relationships are maintained. Rather significant aortoiliac vascular calcification. Moderate stool retention with extensive colonic diverticulosis. No significant pelvic fluid or soft tissue hematoma. IMPRESSION: 1. Negative for acute displaced pelvic fracture. There is rather pronounced bony demineralization. If symptoms persist, short-term follow-up repeat imaging and/or MRI would be recommended. Dictated on workstation # [id number] Dict: 09/26/20 1052 Trans: 09/26/20 1133 [facility] [id number] Interpreted by: ERWIN KURTZ DO Reviewed: Reviewed by Me Departure Impression Primary Impression: Syncope Qualified Codes: R55 - Syncope and collapse Additional Impressions: Urinary tract infection Qualified Codes: N39.0 - Urinary tract infection, site not specified; R31.9 - Hematuria, unspecified Fracture of spinous process of cervical vertebra Qualified Codes: S12.9XXA - Fracture of neck, unspecified, initial encounter Scalp contusion Qualified Codes: S00.03XA - Contusion of scalp, initial encounter Low back pain Qualified Codes: M54.5 - Low back pain Left bundle branch block Disposition: HOME, SELF-CARE Condition: Improved Departure-Patient Inst. Decision time for Depature: 14:05 Referrals: ROBSON MO DO (PCP/Family) Primary Care Physician Patient Instructions: Urinary Tract Infection, Adult ED, Syncope (Fainting) (DC) Add. Discharge Instructions: Keep your appointment with Dr. Daniel on Monday. Follow-up with your primary care provider soon as possible. Review urine culture results at that appointment. Use the Cipro you have at home. Take 500 mg twice daily for at least 5 days. Drink plenty of water to stay well-hydrated. You may take Tylenol (acetaminophen) up to 650 mg every 6 hours as needed for pain. Icing injured areas such as the back of your neck in 20-minute intervals may be helpful for treating pain and swelling as well. Call with questions or concerns. Return to the emergency room if you have worsening symptoms. All discharge instructions reviewed with patient and/or family. Voiced understanding. Copy Copies To 1: ROBSON MO DO Copies To 2: TEMITOPE DANIEL MD FACP FACC CCDS RADHA SCOTT MD Sep 26, 2020 14:07
[2020-09-26 14:13] VITALS: BP 179/81
== END 2020-09-26 14:13 | disposition home or self-care (01) ==
LOC: EDUNIT# 09:51 → ER 09:52
DX: S12.500A Unspecified displaced fracture of sixth cervical vertebra, initial encounter for closed fracture (principal); S12.600A Unspecified displaced fracture of seventh cervical vertebra, initial encounter for closed fracture; S00.03XA Contusion of scalp, initial encounter; M54.5 Low back pain; R55 Syncope and collapse; N39.0 Urinary tract infection, site not specified; I44.7 Left bundle-branch block, unspecified; Z87.891 Personal history of nicotine dependence; Z88.0 Allergy status to penicillin; Z88.2 Allergy status to sulfonamides; Z23 Encounter for immunization; W07.XXXA Fall from chair, initial encounter
CPT/HCPCS: 70450; 72125; 72131; 72192; 80053; 81000; 83735; 84484; 85025; 87088; 93041; 99284; G0480; L0150; 36415; 80320; 90715; 93005

== ENCOUNTER → 2020-10-06 | Outpatient (CLI) | payer MEDICARE ==
[~2020-10-06] VITALS: Ht 170 cm; Wt 40.0 kg
[~2020-10-06] MED LIST changes: +CATHETER FLUSH 10 ML SYR IV PRN; +REGADENOSON 0.4 MG/5 ML SYR (LEXISCAN) IV ONE
[2020-10-06 09:46] VITALS: BP 142/67
--- NOTE | 2020-10-06 18:05 | STRESS TEST ---
DATE OF SERVICE: 10/06/2020 RESTING AND POST REGADENOSON TECHNETIUM-99M TETROFOSMIN SPECT CT IMAGING ORDERING PHYSICIAN: Dr. Daniel. PRIMARY PHYSICIAN: Dr. Mccormick. CLINICAL DIAGNOSIS: Syncope. Baseline images were carried out after injection of 10.9 mCi of technetium-99m Tetrofosmin. This was followed by 0.4 mg Regadenoson and 31 mCi of technetium-99m Tetrofosmin for stress imaging. The electrocardiogram showed sinus rhythm with a left bundle branch block and the electrocardiogram did not change significantly with the Regadenoson infusion. Review of images at rest and following stress indicates a dilated left ventricle with left ventricular end-diastolic volume 121 mL. TID is absent (1.09). There is global hypokinesia, left ventricle and left ventricular ejection fraction is calculated to be 35%. There appears to be posterobasal akinesis and there appears to be a small amount of basal inferior ischemia. CONCLUSIONS: 1. Dilated cardiomyopathy with global hypokinesis of left ventricle and left ventricular ejection fraction of 35%. 2. Basal inferior infarction with a small amount of andrew-infarct ischemia. Job ID: [id number] DocumentID: [id number] Dictated Date: 10/06/2020 16:15:59 Director Video Date: 10/06/2020 18:04:47 Dictated By: TEMITOPE DANIEL MD, MA, FACP, FACC,
== END ==
LOC: CARD 08:30
PROVIDERS: ATTEND Internal Medicine Cardiovascular Disease
DX: R55 Syncope and collapse (principal)
CPT/HCPCS: 78452; 93017; A9502

== ENCOUNTER → 2020-10-08 | Outpatient (CLI) | payer MEDICARE ==
[~2020-10-08] MED LIST changes: +ATOR40TA PO; -CATHETER FLUSH 10 ML SYR IV PRN; +CLOP75TA28 PO; -REGADENOSON 0.4 MG/5 ML SYR (LEXISCAN) IV ONE
== END ==
LOC: CARD 10:00
PROVIDERS: ATTEND Internal Medicine Cardiovascular Disease
DX: I51.7 Cardiomegaly (principal); I34.0 Nonrheumatic mitral (valve) insufficiency; R55 Syncope and collapse
CPT/HCPCS: 93225; 93226; 93306

== ENCOUNTER 2020-10-13 11:00 | Day surgery (SDC) | payer MEDICARE ==
[2020-10-13] VITALS (15 sets, daily range): BP systolic 121–173; BP diastolic 59–105
[~2020-10-13] VITALS: Ht 170 cm; Wt 39.0 kg
[2020-10-13 09:38] LABS: HEMATOCRIT 43 % (35-52); HEMOGLOBIN 14.5 g/dL (11.5-16.0); MEAN CORPUSCULAR HEMOGLOBIN 35 pg (25-34); MEAN CORPUSCULAR HGB CONC 34 g/dL (32-36); MEAN CORPUSCULAR VOLUME 103 fL (80-99); MEAN PLATELET VOLUME 9.2 fL (9.0-12.2); PLATELET COUNT 306 10^3/uL (130-400); WHITE BLOOD COUNT 6.8 10^3/uL (4.3-11.0)
[2020-10-13 09:49] LABS: INR 1.1 (0.8-1.4); PROTHROMBIN TIME PATIENT 15.1 SEC (12.2-14.7)
[2020-10-13 09:57] LABS: ALANINE AMINOTRANSFERASE 18 U/L (0-55); ALBUMIN 4.2 GM/DL (3.2-4.5); ALKALINE PHOSPHATASE 133 U/L (40-136); BILIRUBIN,TOTAL 0.9 MG/DL (0.1-1.0); BUN/CREATININE RATIO 21; CALCIUM 9.5 MG/DL (8.5-10.1); CARBON DIOXIDE 25 MMOL/L (21-32); CHLORIDE 97 MMOL/L (98-107); CHOLESTEROL 185 MG/DL (< 200); GFR ESTIMATED > 60; GLUCOSE 107 MG/DL (70-105); HDL CHOLESTEROL 65 MG/DL (40-60); POTASSIUM 5.2 MMOL/L (3.6-5.0); SODIUM 128 MMOL/L (135-145); TOTAL PROTEIN 7.8 GM/DL (6.4-8.2); TRIGLYCERIDES 158 MG/DL (<150); VLDL CHOLESTEROL 32 MG/DL (5-40)
[~2020-10-13 11:00] MED LIST changes: -ATOR40TA PO; -CLOP75TA28 PO; +NS IV 1000 ML 1,000 ML IV SCH
[2020-10-13] MEDS ORDERED: MIDAZOLAM 5 MG/5 ML (VERSED) VIAL ONE (11:17)
[2020-10-13] MEDS ORDERED: fentaNYL INJ 100 MCG/2 ML AMP ONE ×2 (11:17→15:18)
[2020-10-13] MEDS ORDERED: HEParin 1000 UNIT/ML (10ML VIAL) FOR BOLUS ONE (11:46)
[2020-10-13] MEDS ORDERED: EPTIFIBATIDE BOLUS 20 ML IV ONE (11:49)
[2020-10-13] MEDS ORDERED: CLOPIDOGREL 300 MG (PLAVIX) TABLET PO ONE (12:32)
[2020-10-13] MEDS ORDERED: ASPIRIN 81 MG CHEW (CHILDREN'S ASA) ONE (12:32)
--- NOTE | 2020-10-13 12:55 | Cardiac Procedure Note-CS/ASA ---
Pre-Procedure Note Pre-Op Procedure Note H&P Reviewed The H&P was reviewed, patient examined and no changes noted. Date H&P Reviewed: Oct 13, 2020 Time H&P Reviewed: 11:30 Conscious Sedation Pre-Proced Time 11:30 ASA Score 3 For ASA 3 and 4: Consider anesthesia and medical clearance. Also, for patients with a history of failed moderate sedation consider anesthesia. Airway Lungs Heart ASA score ASA 1: a normal healthy patient ASA 2: a patient with a mild systemic disease (mid diabetes, controlled hypertension, obesity ASA 3: a patient with a severe systemic disease that limits activity (angina, COPD, prior Myocardial infarction) ASA 4: a patient with an incapacitating disease that is a constant threat to life (CHF, renal failure) ASA 5: a moribund patient not expected to survive 24 hrs. (ruptured aneurysm) ASA 6: a declared brain- patient whose organs are being harvested. For emergent operations, add the letter E after the classification Mallampati Classification Grade 2 Sedation Plan Analgesia, Amnesia, Plan communicated to team members, Discussed options with patient/fam, Discussed risks with patient/fam The patient is an appropriate candidate to undergo the planned procedure, sedation, and anesthesia. The patient immediately re-assessed prior to indication. TEMITOPE KUO MD FACP FAC CCDS Oct 13, 2020 12:55
[2020-10-13] MEDS ORDERED: ACETAMINOPHEN 325 MG TABLET PO PRN (13:00)
[2020-10-13] MEDS: NS IV 1000 ML 1,000 ML IV SCH (13:00)
[2020-10-13] MEDS ORDERED: PATIENT MAY USE OWN MEDS, ALL PO SCH (13:00)
--- NOTE | 2020-10-13 13:49 | CARDIAC CATHETERIZATION ---
DATE OF SERVICE: CARDIAC CATHETERIZATION AND CORONARY INTERVENTION REPORT The patient is an 80-year-old lady, who has been experiencing shortness of breath and has had one episode of syncope. A myocardial perfusion imaging was abnormal. She was found to have impaired left ventricular systolic function and considerable inferoapical ischemia. Cardiac catheterization was carried out today after having obtained informed consent for cardiac catheterization and possible ad hoc coronary intervention. DESCRIPTION OF PROCEDURE: She was brought to the cardiac catheterization laboratory in a fasting state. Right groin was prepared and draped in the usual sterile fashion. Lidocaine 1% was used for local anesthesia. Modified Seldinger technique was used to advance a 5-[place] sheath in right femoral artery, 5-[place] JL4 catheter for left coronary angiography, 5-[place] JR4 catheter for right coronary angiography, 5-[place] pigtail catheter was used for left heart catheterization and left ventricular angiography. Subsequently, percutaneous intervention was carried out in the left anterior descending artery and it is described below. PERCUTANEOUS INTERVENTION TO THE LEFT ANTERIOR DESCENDING: We exchanged the sheath over a wire for a 6-[place]izen [place] sheath. She received 4000 units of intravenous heparin and a double bolus of Integrilin during the interventional procedure. We engaged the left coronary artery with 6-[place] JL4 guide catheter. Multiple wires were used in an attempt to cross the very severe lesion in the mid left anterior descending. Finally, we were able to cross with a [employer] wire. We carried out balloon angioplasty with a 2.0 x 30 mm balloon. Multiple balloon inflations were carried out. The balloon was then removed. We were able then to advance an Alpine Mary 2.5 x 28 mm stent to cover the lesions. This was accomplished with moderate difficulty. The stent was deployed at 14 atmospheres. Full stent expansion was achieved. Subsequent angiography revealed 0% residual stenosis at the previous sites of approximately 99% stenosis at two spots in the left anterior descending. The sheath was sutured in place. The patient was transferred to the floor for manual sheath removal. HEMODYNAMICS: Left ventricular end-diastolic pressure following coronary angiography was 8 mmHg. There is no significant pressure gradient on pullback across the aortic valve. Ascending aortic pressure was 116/53 with a mean of 76 mmHg. CORONARY ANGIOGRAPHY: Diffuse coronary calcification is seen. Left main coronary artery does not exhibit significant disease. Left anterior descending artery had two tandem 99% stenosis in the mid left anterior descending to which successful stenting was carried out as noted above. The left anterior descending has diffuse moderate disease. The stent utilized was Alpine Mary 2.5 x 28 mm stent. The left circumflex artery has mild diffuse plaque. Right coronary artery has 95% mid vessel stenosis that was not intervened on at this time. LEFT VENTRICULAR ANGIOGRAPHY: Left ventricular angiography showed a moderate impairment of global left ventricular systolic function with global hypokinesis and left ventricular ejection fraction approximately 40%. CONCLUSIONS: 1. Coronary artery disease primarily consisting of tandem 99% stenosis in the mid left anterior descending, which were successfully treated with deployment of a Mary 2.5 x 28 mm stent. The left circumflex artery has mild plaques. Right coronary artery has 95% mid vessel stenosis. 2. Normal left ventricular end-diastolic pressure. 3. Moderate impairment of global left ventricular systolic function with ejection fraction approximately 40%. DISCUSSION AND RECOMMENDATIONS: We addressed the most severe lesions today (left anterior descending). She may need further intervention (right coronary) at a later date. Dual antiplatelet therapy is being initiated. Risk factor modification has been reviewed. She remains hospitalized at the time of this dictation. Job ID: [id number] DocumentID: [id number] Dictated Date: 10/13/2020 13:05:32 Fishing Rod Marker Date: 10/13/2020 13:49:13 Dictated By: TEMITOPE KUO MD, MA, FACP, FACC, MTDD
[2020-10-13] MEDS ORDERED: ATROPINE INJ 0.4 MG/ML SDV ONE (15:17)
[2020-10-13] MEDS ORDERED: diphenhydrAMINE 25 MG TAB (BENADRYL) PO NR (20:30)
[2020-10-14] VITALS (8 sets, daily range): BP systolic 110–134; BP diastolic 56–65
[2020-10-14] MEDS: NS IV 1000 ML 1,000 ML IV SCH (01:44)
[2020-10-14 03:19] LABS: BASOPHILS # (AUTO) 0.1 10^3/uL (0.0-0.1); BASOPHILS % (AUTO) 1 % (0-10); EOSINOPHILS # (AUTO) 0.3 10^3/uL (0.0-0.3); EOSINOPHILS % (AUTO) 3 % (0-10); HEMATOCRIT 35 % (35-52); HEMOGLOBIN 12.3 g/dL (11.5-16.0); LYMPHOCYTES # (AUTO) 1.9 10^3/uL (1.0-4.0); LYMPHOCYTES % (AUTO) 22 % (12-44); MEAN CORPUSCULAR HEMOGLOBIN 34 pg (25-34); MEAN CORPUSCULAR HGB CONC 35 g/dL (32-36); MEAN CORPUSCULAR VOLUME 99 fL (80-99); MEAN PLATELET VOLUME 9.2 fL (9.0-12.2); MONOCYTES # (AUTO) 0.6 10^3/uL (0.0-1.0); MONOCYTES % (AUTO) 7 % (0-12); NEUTROPHILS # (AUTO) 5.6 10^3/uL (1.8-7.8); NEUTROPHILS % (AUTO) 67 % (42-75); PLATELET COUNT 253 10^3/uL (130-400); WHITE BLOOD COUNT 8.4 10^3/uL (4.3-11.0)
[2020-10-14 03:40] LABS: BUN/CREATININE RATIO 25; CALCIUM 8.6 MG/DL (8.5-10.1); CARBON DIOXIDE 21 MMOL/L (21-32); CHLORIDE 98 MMOL/L (98-107); CREATININE SERUM 0.59 MG/DL (0.60-1.30); GFR ESTIMATED > 60; GLUCOSE 96 MG/DL (70-105); POTASSIUM 4.1 MMOL/L (3.6-5.0); SODIUM 127 MMOL/L (135-145)
[2020-10-14] MEDS ORDERED: MULTIVIT W/MINERALS TAB (THERAGRAN M) PO SCH (07:00)
--- NOTE | 2020-10-14 07:42 | Tele-ICU Progress Note ---
Subjective Date Seen by a Provider: Oct 14, 2020 Time Seen by a Provider: 10:12 Subjective/Events-last exam Went to CCL yesterday, had stent placed LAD, on ASA 81/Plavix Sepsis Event Evaluation Height, Weight, BMI Height: '" Weight: lbs. oz. kg; 13.49 BMI Method: Exam Exam Patient acknowledged, consented, and participated in this virtual visit which was conducted using real time audio/video Vital Signs Date Time Temp Pulse Resp B/P (MAP) Pulse Ox O2 Delivery O2 Flow Rate FiO2 10/14/20 07:16 58 16 134/64 (87) 98 Room Air 10/14/20 06:00 50 20 130/63 (77) 98 Room Air 10/14/20 05:00 54 29 125/56 (87) 99 Room Air 10/14/20 04:00 52 18 120/65 (86) 98 Room Air 10/14/20 03:00 60 25 110/58 (75) 97 Room Air 10/14/20 02:45 36.3 10/14/20 02:05 73 11 131/63 (85) Room Air 10/14/20 01:00 50 25 132/56 (81) 97 Room Air 10/14/20 01:00 50 10/14/20 00:00 54 20 125/61 (82) 99 Room Air 10/13/20 23:05 36.3 10/13/20 23:00 62 35 135/93 (107) 98 Room Air 10/13/20 22:00 56 18 121/59 (78) 97 Room Air 10/13/20 21:00 61 22 137/69 (90) 98 Room Air 10/13/20 20:18 99 Room Air 10/13/20 20:00 61 28 159/84 (109) 100 Room Air 10/13/20 19:42 36.6 10/13/20 19:00 65 165/80 (108) 100 Room Air 10/13/20 19:00 65 10/13/20 16:06 36.2 10/13/20 16:00 68 53 173/66 (101) 100 Room Air 10/13/20 15:00 63 12 163/73 (103) 100 Room Air 10/13/20 14:30 60 16 171/78 (109) 100 Room Air 10/13/20 14:15 69 8 134/105 (115) 100 Room Air 10/13/20 14:00 69 39 162/76 (104) 100 Room Air 10/13/20 13:45 62 19 162/76 (104) 100 Room Air 10/13/20 13:30 60 18 162/82 (108) 100 Room Air 10/13/20 13:15 60 21 166/72 (103) 99 Room Air 10/13/20 13:00 57 14 168/74 (105) 98 Room Air 10/13/20 12:49 60 10/13/20 09:20 36.6 64 18 162/68 (99) 96 Room Air I & O 10/14/20 07:00 Intake Total 1200 ml Output Total 600 ml Balance 600 ml Height & Weight Laboratory Tests 10/13/20 09:33: White Blood Count 6.8, Red Blood Count 4.19, Hemoglobin 14.5, Hematocrit 43, Mean Corpuscular Volume 103H, Mean Corpuscular Hemoglobin 35H, Mean Corpuscular Hemoglobin Concent 34, Red Cell Distribution Width 11.8, Platelet Count 306, Mean Platelet Volume 9.2, Prothrombin Time 15.1H, INR Comment 1.1, Activated Partial Thromboplast Time 29, Sodium Level 128L, Potassium Level 5.2H, Chloride Level 97L, Carbon Dioxide Level 25, Anion Gap 6, Blood Urea Nitrogen 15, Creatinine 0.70, Estimat Glomerular Filtration Rate > 60, BUN/Creatinine Ratio 21, Glucose Level 107H, Calcium Level 9.5, Corrected Calcium 9.3, Total Bilirubin 0.9, Aspartate Amino Transf (AST/SGOT) 33, Alanine Aminotransferase (ALT/SGPT) 18, Alkaline Phosphatase 133, Total Protein 7.8, Albumin 4.2, Triglycerides Level 158H, Cholesterol Level 185, LDL Cholesterol Direct 101, VLDL Cholesterol 32, HDL Cholesterol 65H 10/14/20 03:08: White Blood Count 8.4, Red Blood Count 3.58L, Hemoglobin 12.3, Hematocrit 35, Mean Corpuscular Volume 99, Mean Corpuscular Hemoglobin 34, Mean Corpuscular Hemoglobin Concent 35, Red Cell Distribution Width 11.4, Platelet Count 253, Mean Platelet Volume 9.2, Sodium Level 127L, Potassium Level 4.1, Chloride Level 98, Carbon Dioxide Level 21, Anion Gap 8, Blood Urea Nitrogen 15, Creatinine 0.59L, Estimat Glomerular Filtration Rate > 60, BUN/Creatinine Ratio 25, Glucose Level 96, Calcium Level 8.6, Immature Granulocyte % (Auto) 0, Neutrophils (%) (Auto) 67, Lymphocytes (%) (Auto) 22, Monocytes (%) (Auto) 7, Eosinophils (%) (Auto) 3, Basophils (%) (Auto) 1, Neutrophils # (Auto) 5.6, Lymphocytes # (Auto) 1.9, Monocytes # (Auto) 0.6, Eosinophils # (Auto) 0.3, Basophils # (Auto) 0.1, Immature Granulocyte # (Auto) 0.0 Microbiology 10/13/20 MRSA Screen - Final, Complete MRSA not isolated Height: '" Weight: lbs. oz. kg; 13.49 BMI Method: General Appearance: No Apparent Distress Capillary Refill: Less Than 3 Seconds Results Lab Laboratory Tests 10/13/20 09:33 10/14/20 03:08 Assessment/Plan Assessment/Plan S/P LAD stent, Na still low, chronic?, to go home today Critical Care: Critically Ill Patient Time spent with patient (mins): 10 BEKAH LLANES MD Oct 14, 2020 07:41
--- NOTE | 2020-10-14 07:58 | Progress Note - Cardiology ---
Cardiology SOAP Progress Note Subjective: Sitting up in bed Wants to go home No c/o CP, SOB, palpitations No c/o right groin discomfort Objective: I&O/Vital Signs 10/13/20 10/13/20 10/13/20 10/13/20 21:00 22:00 23:00 23:05 Temp 36.3 Pulse 61 56 62 Resp 22 18 35 B/P (MAP) 137/69 (90) 121/59 (78) 135/93 (107) Pulse Ox 98 97 98 O2 Delivery Room Air Room Air Room Air 10/14/20 10/14/20 10/14/20 10/14/20 00:00 01:00 01:00 02:05 Pulse 54 50 50 73 Resp 20 25 11 B/P (MAP) 125/61 (82) 132/56 (81) 131/63 (85) Pulse Ox 99 97 O2 Delivery Room Air Room Air Room Air 10/14/20 10/14/20 10/14/20 10/14/20 02:45 03:00 04:00 05:00 Temp 36.3 Pulse 60 52 54 Resp 25 18 29 B/P (MAP) 110/58 (75) 120/65 (86) 125/56 (87) Pulse Ox 97 98 99 O2 Delivery Room Air Room Air Room Air 10/14/20 10/14/20 10/14/20 10/14/20 06:00 07:16 07:43 08:00 Temp 35.1 Pulse 50 58 Resp 20 16 B/P (MAP) 130/63 (77) 134/64 (87) Pulse Ox 98 98 O2 Delivery Room Air Room Air Room Air 10/14/20 00:00 Intake Total 650 ml Output Total 400 ml Balance 250 ml Side: right Groin site without hematoma: Yes Condition: DP/PT pulses palpable, extremity w/d/p Bruising: moderated bruising Constitutional: AAO x 3, well-developed, other (thin) Respiratory: No accessory muscle use, No respiratory distress; chest expansion is symmetric, chest is bilaterally symmetric, lungs clear to auscultation Cardiovascular: regular rate-rhythm; No JVD; S1 and S2 Gastrointestional: No tender; soft, audible bowel sounds Extremities: no lower extremity edema bilateral Neurologic/Psychiatric: grossly intact (moves all extremities) Skin: No rash on exposed areas, No ulcerations on exposed areas Results/Procedures: Labs Laboratory Tests 10/13/20 09:33: White Blood Count 6.8, Red Blood Count 4.19, Hemoglobin 14.5, Hematocrit 43, Mean Corpuscular Volume 103H, Mean Corpuscular Hemoglobin 35H, Mean Corpuscular Hemoglobin Concent 34, Red Cell Distribution Width 11.8, Platelet Count 306, Mean Platelet Volume 9.2, Prothrombin Time 15.1H, INR Comment 1.1, Activated Partial Thromboplast Time 29, Sodium Level 128L, Potassium Level 5.2H, Chloride Level 97L, Carbon Dioxide Level 25, Anion Gap 6, Blood Urea Nitrogen 15, Creatinine 0.70, Estimat Glomerular Filtration Rate > 60, BUN/Creatinine Ratio 21, Glucose Level 107H, Calcium Level 9.5, Corrected Calcium 9.3, Total Bilirubin 0.9, Aspartate Amino Transf (AST/SGOT) 33, Alanine Aminotransferase (ALT/SGPT) 18, Alkaline Phosphatase 133, Total Protein 7.8, Albumin 4.2, Triglycerides Level 158H, Cholesterol Level 185, LDL Cholesterol Direct 101, VLDL Cholesterol 32, HDL Cholesterol 65H 10/14/20 03:08: White Blood Count 8.4, Red Blood Count 3.58L, Hemoglobin 12.3, Hematocrit 35, Mean Corpuscular Volume 99, Mean Corpuscular Hemoglobin 34, Mean Corpuscular Hemoglobin Concent 35, Red Cell Distribution Width 11.4, Platelet Count 253, Mean Platelet Volume 9.2, Sodium Level 127L, Potassium Level 4.1, Chloride Level 98, Carbon Dioxide Level 21, Anion Gap 8, Blood Urea Nitrogen 15, Creatinine 0.59L, Estimat Glomerular Filtration Rate > 60, BUN/Creatinine Ratio 25, Glucose Level 96, Calcium Level 8.6, Immature Granulocyte % (Auto) 0, Neutrophils (%) (A uto) 67, Lymphocytes (%) (Auto) 22, Monocytes (%) (Auto) 7, Eosinophils (%) (Auto) 3, Basophils (%) (Auto) 1, Neutrophils # (Auto) 5.6, Lymphocytes # (Auto) 1.9, Monocytes # (Auto) 0.6, Eosinophils # (Auto) 0.3, Basophils # (Auto) 0.1, Immature Granulocyte # (Auto) 0.0 Microbiology 10/13/20 MRSA Screen - Final, Complete MRSA not isolated Procedures S/P cardiac cath with successful intervention on 10-13-20. Please refer to cardiac cath report of same date for details A/P: Assessment: Coronary artery disease: - primarily consisting of tandem 99% stenosis in the mid left anterior descending, which were successfully treated with deployment of a Mary 2.5 x 28 mm stent. The left circumflex artery has mild plaques. Right coronary artery has 95% mid vessel stenosis (not intervented on) . Normal left ventricular end diastolic pressure. Moderate impairment of global left ventricular systolic function with ejection fraction approximately 40%. Syncope of undetermined etiology on 09/25/20 Hypertension, treated chronically with losartan Musculoskeletal w/u in the ER after syncope of 09/25/20 showed acute spinous precess fractures of C6 and C7 Underweight (BMI approx 14). Considerable, unintentional wgt loss since 2018 Quit smoking in 2011 Mild hyponatremia of undetermined etiology Plan: S/P cardiac cath with successful intervention to LAD. RCA has a 95% lesion which we schedule for intervention at a later date. D/C home today Continue DAPT, statin and ARB Hyponatremia of undetermined etiology - advise f/u with her PCP for further w/u FACUNDO SANTO Oct 14, 2020 07:58
[2020-10-14] MEDS ORDERED: ATOR40TA PO (07:59)
[2020-10-14] MEDS ORDERED: CLOP75TA28 PO (07:59)
--- NOTE | 2020-10-14 07:59 | Discharge Inst-Cardiology ---
Discharge Inst-Cardiac Discharge Medications New Medications: Atorvastatin Calcium (Lipitor) 40 Mg Tablet 40 MG PO HS, #90 TAB 3 Refills Clopidogrel Bisulfate (Clopidogrel) 75 Mg Tablet 75 MG PO DAILY, #90 TAB 3 Refills Continued Medications: Aspirin (Aspirin) 81 Mg Tab.chew 81 MG PO DAILY, TAB Losartan Potassium (Losartan Potassium) 25 Mg Tablet 25 MG PO DAILY, TAB Multivitamin (Multi-Vitamin Daily) 1 Each Tablet 1 EACH PO DAILY, TAB New, Converted or Re-Newed RX: Transmitted to Pharmacy FACUNDO SANTO Oct 14, 2020 07:59
[2020-10-14] MEDS ORDERED: CLOPIDOGREL 75 MG (PLAVIX) TABLET PO SCH (09:00)
[2020-10-14] MEDS ORDERED: LOSARTAN 25 MG (COZAAR) TAB PO SCH (09:00)
[2020-10-14] MEDS ORDERED: ASPIRIN 81 MG CHEW (CHILDREN'S ASA) PO SCH (09:00)
--- NOTE | 2020-10-14 12:49 | Progress Note - Cardiology ---
Cardiology SOAP Progress Note Subjective: No cp or palp or syncope or shortness of breath Gen malaise (chronic) No n/v/d No groin or leg discomfort or discoloration Wishes to go home Objective: I&O/Vital Signs 10/14/20 10/14/20 10/14/20 10/14/20 01:00 01:00 02:05 02:45 Temp 36.3 Pulse 50 50 73 Resp 25 11 B/P (MAP) 132/56 (81) 131/63 (85) Pulse Ox 97 O2 Delivery Room Air Room Air 10/14/20 10/14/20 10/14/20 10/14/20 03:00 04:00 05:00 06:00 Pulse 60 52 54 50 Resp 25 18 29 20 B/P (MAP) 110/58 (75) 120/65 (86) 125/56 (87) 130/63 (77) Pulse Ox 97 98 99 98 O2 Delivery Room Air Room Air Room Air Room Air 10/14/20 10/14/20 10/14/20 10/14/20 06:53 07:16 07:43 08:00 Temp 35.1 Pulse 65 58 Resp 16 B/P (MAP) 134/64 (87) Pulse Ox 98 O2 Delivery Room Air Room Air 10/14/20 10:02 B/P (MAP) 10/14/20 00:00 Intake Total 650 ml Output Total 400 ml Balance 250 ml Side: right Groin site without hematoma: Yes Condition: DP/PT pulses palpable, extremity w/d/p Bruising: moderated bruising Constitutional: AAO x 3, well-developed, other (thin) Respiratory: No accessory muscle use, No respiratory distress; chest expansion is symmetric, chest is bilaterally symmetric, lungs clear to auscultation Cardiovascular: regular rate-rhythm; No JVD; S1 and S2 Gastrointestional: No tender; soft, audible bowel sounds Extremities: no lower extremity edema bilateral Neurologic/Psychiatric: oriented x 3, other (moves all limbs equally) Skin: No rash on exposed areas, No ulcerations on exposed areas Results/Procedures: Labs Laboratory Tests 10/14/20 03:08: White Blood Count 8.4, Red Blood Count 3.58L, Hemoglobin 12.3, Hematocrit 35, Mean Corpuscular Volume 99, Mean Corpuscular Hemoglobin 34, Mean Corpuscular Hemoglobin Concent 35, Red Cell Distribution Width 11.4, Platelet Count 253, Mean Platelet Volume 9.2, Immature Granulocyte % (Auto) 0, Neutrophils (%) (Auto) 67, Lymphocytes (%) (Auto) 22, Monocytes (%) (Auto) 7, Eosinophils (%) (Auto) 3, Basophils (%) (Auto) 1, Neutrophils # (Auto) 5.6, Lymphocytes # (Auto) 1.9, Monocytes # (Auto) 0.6, Eosinophils # (Auto) 0.3, Basophils # (Auto) 0.1, Immature Granulocyte # (Auto) 0.0, Sodium Level 127L, Potassium Level 4.1, Chloride Level 98, Carbon Dioxide Level 21, Anion Gap 8, Blood Urea Nitrogen 15, Creatinine 0.59L, Estimat Glomerular Filtration Rate > 60, BUN/Creatinine Ratio 25, Glucose Level 96, Calcium Level 8.6 Microbiology 10/13/20 MRSA Screen - Final, Complete MRSA not isolated Laboratory Tests 10/13/20 09:33 10/14/20 03:08 A/P: Assessment: Coronary artery disease: - Cath of 10/13/20: tandem 99% stenoses in the mid left anterior descending, which were successfully treated with deployment of a Mary 2.5 x 28 mm stent. The left circumflex artery has mild plaques. Right coronary artery has 95% mid vessel stenosis (not intervented on) . Normal left ventricular end diastolic pressure. Moderate impairment of global left ventricular systolic function with ejection fraction approximately 40%. Syncope of undetermined etiology on 09/25/20 Hypertension, treated chronically with losartan Musculoskeletal w/u in the ER after syncope of 09/25/20 showed acute spinous precess fractures of C6 and C7 Underweight (BMI approx 14). Considerable, unintentional wgt loss since 2018, managed by her pcp Quit smoking in 2011 Mild, chronic, hyponatremia of undetermined etiology, managed by her pcp Plan: S/P cardiac cath with successful intervention to LAD. RCA has a 95% lesion for which we recommended intervention at a later date, but she has not agreed. States will let us if she changes her mind. We have advised her not drive or operate machinery and also to avoid situations were syncope may result in injury to self or others. She understands and states will comply. Continue DAPT, statin and ARB For wgt loss and hyponatremia of undetermined etiology - advise f/u with her PCP for further w/u. She understands and states will comply Close clinical f/u for now TEMITOPE KUO MD FACP [facility] Oct 14, 2020 12:49
== END 2020-10-14 10:02 | disposition home or self-care (01) ==
LOC: CATH 11:00 → ICU 12:40 → CATH 10-14 10:02
PROVIDERS: ATTEND Internal Medicine Cardiovascular Disease
DX: I25.10 Atherosclerotic heart disease of native coronary artery without angina pectoris (principal); S12.500A Unspecified displaced fracture of sixth cervical vertebra, initial encounter for closed fracture; S12.600A Unspecified displaced fracture of seventh cervical vertebra, initial encounter for closed fracture; R55 Syncope and collapse; N39.0 Urinary tract infection, site not specified; E87.1 Hypo-osmolality and hyponatremia; I10 Essential (primary) hypertension; R63.6 Underweight; Z79.82 Long term (current) use of aspirin; Z79.899 Other long term (current) drug therapy
CPT/HCPCS: 80048; 80053; 80061; 85025; 85027; 85610; 85730; 87081; 93005; 93458; C1725 ×2; C1769 ×3; C1874; C1887; C1894 ×2; C9600; 36415

== ENCOUNTER → 2020-10-27 | Outpatient (CLI) | payer MEDICARE ==
[~2020-10-27] MED LIST changes: +ATOR40TA PO; +CLOP75TA28 PO; -NS IV 1000 ML 1,000 ML IV SCH
[2020-10-27 11:01] LABS: BASOPHILS # (AUTO) 0.1 10^3/uL (0.0-0.1); BASOPHILS % (AUTO) 1 % (0-10); EOSINOPHILS # (AUTO) 0.3 10^3/uL (0.0-0.3); EOSINOPHILS % (AUTO) 4 % (0-10); HEMATOCRIT 31 % (35-52); HEMOGLOBIN 10.1 g/dL (11.5-16.0); LYMPHOCYTES # (AUTO) 1.3 10^3/uL (1.0-4.0); LYMPHOCYTES % (AUTO) 20 % (12-44); MEAN CORPUSCULAR HEMOGLOBIN 34 pg (25-34); MEAN CORPUSCULAR HGB CONC 33 g/dL (32-36); MEAN CORPUSCULAR VOLUME 104 fL (80-99); MEAN PLATELET VOLUME 8.9 fL (9.0-12.2); MONOCYTES # (AUTO) 0.5 10^3/uL (0.0-1.0); MONOCYTES % (AUTO) 7 % (0-12); NEUTROPHILS # (AUTO) 4.3 10^3/uL (1.8-7.8); NEUTROPHILS % (AUTO) 68 % (42-75); PLATELET COUNT 243 10^3/uL (130-400); WHITE BLOOD COUNT 6.4 10^3/uL (4.3-11.0)
--- NOTE | 2020-10-27 12:48 | Diagnostic Imaging Report ---
INDICATION: Right leg pain. Right leg venous Doppler study was performed in the routine fashion with color flow Doppler and waveform analysis. FINDINGS: The right common femoral vein, superficial femoral vein, popliteal vein and visualized portion of the tibial veins show normal compressibility and venous flow patterns. There is normal augmentation. IMPRESSION: No evidence of deep vein thrombosis of the major veins of the right leg. Dictated by: Dictated on workstation # [id number]
--- NOTE | 2020-10-27 12:55 | Diagnostic Imaging Report ---
INDICATION: Right leg pain post catheterization. TECHNIQUE: Right leg arterial Doppler study performed in the routine fashion with color flow Doppler and waveform analysis. FINDINGS: The right common femoral artery was patent with biphasic flow. The profunda femoris artery and SFA are patent with biphasic flow. Popliteal artery is patent with biphasic flow. The dorsalis pedis is patent with biphasic flow. There is monophasic flow in the distal posterior tibial artery. There are scattered areas of plaquing visualized. There is no pseudoaneurysm or hematoma. IMPRESSION: Scattered areas of plaquing are seen without major vessel stenosis or occlusion. There is no evidence of pseudoaneurysm or significant hematoma. Dictated by: Dictated on workstation # [id number]
== END ==
LOC: RAD 10:38
PROVIDERS: ATTEND Nurse Practitioner Family
DX: M79.604 Pain in right leg (principal); Z98.890 Other specified postprocedural states
CPT/HCPCS: 36415; 85025; 93926

== ENCOUNTER 2020-12-09 08:21 | Inpatient (IN) | payer MEDICARE ==
[~2020-12-09] VITALS: Ht 162 cm; Wt 41.1 kg
[2020-12-09] VITALS (12 sets, daily range): BP systolic 130–156; BP diastolic 62–70
[2020-12-09 09:10] LABS: BASOPHILS % (AUTO) 1 % (0-10); EOSINOPHILS # (AUTO) 0.1 10^3/uL (0.0-0.3); EOSINOPHILS % (AUTO) 3 % (0-10); LYMPHOCYTES # (AUTO) 0.6 10^3/uL (1.0-4.0); LYMPHOCYTES % (AUTO) 11 % (12-44); MEAN CORPUSCULAR HEMOGLOBIN 29 pg (25-34); MEAN CORPUSCULAR HGB CONC 31 g/dL (32-36); MEAN CORPUSCULAR VOLUME 94 fL (80-99); MEAN PLATELET VOLUME 9.3 fL (9.0-12.2); MONOCYTES # (AUTO) 0.6 10^3/uL (0.0-1.0); MONOCYTES % (AUTO) 12 % (0-12); NEUTROPHILS % (AUTO) 74 % (42-75); PLATELET COUNT 362 10^3/uL (130-400); WHITE BLOOD COUNT 5.4 10^3/uL (4.3-11.0)
[2020-12-09 09:13] LABS: HEMATOCRIT 18 % (35-52); HEMOGLOBIN 5.4 g/dL (11.5-16.0)
[2020-12-09 09:20] LABS: ALBUMIN 3.7 GM/DL (3.2-4.5); POTASSIUM 4.2 MMOL/L (3.6-5.0)
[2020-12-09 09:21] LABS: CALCIUM 8.7 MG/DL (8.5-10.1); INR 1.1 (0.8-1.4); PROTHROMBIN TIME PATIENT 14.6 SEC (12.2-14.7)
[2020-12-09 09:22] LABS: TOTAL PROTEIN 6.4 GM/DL (6.4-8.2)
[2020-12-09 09:24] LABS: BILIRUBIN,TOTAL 0.5 MG/DL (0.1-1.0)
[2020-12-09 09:26] LABS: CREATININE SERUM 0.71 MG/DL (0.60-1.30)
[2020-12-09 09:28] LABS: MAGNESIUM 2.1 MG/DL (1.6-2.4)
--- NOTE | 2020-12-09 10:11 | Diagnostic Imaging Report ---
INDICATION: Back and chest pain. COMPARISON: None. FINDINGS: A single view of the chest demonstrates hyperinflation, compatible with COPD. The heart is slightly enlarged. Otherwise, the lungs are clear. There is no pneumothorax. No large effusion is seen. The osseous structures are normal. IMPRESSION: 1. Suspect COPD. 2. Cardiac enlargement without pulmonary edema or acute infiltrate. Dictated by: Dictated on workstation # [id number]
--- NOTE | 2020-12-09 10:12 | Diagnostic Imaging Report ---
EXAM: THORACIC SPINE, 2 VIEWS ONLY INDICATION: Intermittent severe back pain started Monday. COMPARISON: None. FINDINGS: Moderate right apex thoracic curvature. Mild degenerative endplate changes. No fractures identified. Demineralization. Calcified aorta. Cardiomegaly. IMPRESSION: No acute radiographic findings in the thoracic spine. This could be better evaluated with CT or MRI if clinically warranted. Dictated by: Dictated on workstation # [id number]
--- NOTE | 2020-12-09 10:21 | ED General ---
General Chief Complaint: Back Problems Stated Complaint: BACK PAIN Nursing Triage Note: PT AMB TO FT1 PT CO OF BACK PAIN STARTED ON MONDAY RATES 01/31 INTERMITTENTLY Source of Information: Patient, Old Records History of Present Illness Date Seen by Provider: Dec 09, 2020 Time Seen by Provider: 08:35 Initial Comments This 80-year-old woman presents to the emergency room with primary complaint of left upper back pain that started several days ago and the last night kept her from sleeping. She denies any injury. Pain does not seem to change much with activity or deep breathing. She states she has "felt terrible" since having a heart cath performed in September. She had an intervention with stenting at that time and was instructed to follow-up for additional interventions. She has not yet had a repeat cath but has followed up with Dr. Daniel. Patient also later revealed that she had experienced some melena recently and is also being followed for a right lung mass by Dr. South in [place]. She also recently had a consultation with Dr. Martinez at the [facility]. She is on aspirin and Plavix due to recent stent placement. Trazodone was recently prescribed for her back pain and to help with sleep, but it did not seem to be effective. Allergies and Home Medications Allergies Coded Allergies: Penicillins (Verified Allergy, Unknown, 05/08/20) hydrocodone (Verified Allergy, Unknown, 10/13/20) Home Medications Acetaminophen 500 Mg Tablet, 500 MG PO Q8H PRN for PAIN-MILD (1-4), (Reported) Last Action: Reviewed Aspirin 81 Mg Tablet.dr, 81 MG PO DAILY, (Reported) Last Action: Reviewed Atorvastatin Calcium 40 Mg Tablet, 40 MG PO 1200 W/MEAL, (Reported) Last Action: Reviewed Clopidogrel Bisulfate 75 Mg Tablet, 75 MG PO DAILY, (Reported) Last Action: Reviewed Losartan Potassium 50 Mg Tablet, 50 MG PO 1800 W/MEAL, (Reported) Last Action: Reviewed [Balance Of Nature] , 1 EACH PO DAILY, (Reported) Last Action: Reviewed Patient Home Medication List Home Medication List Reviewed: Yes Review of Systems Review of Systems Constitutional: see HPI, weakness EENTM: no symptoms reported Respiratory: see HPI Cardiovascular: see HPI Gastrointestinal: no symptoms reported Genitourinary: no symptoms reported : No Musculoskeletal: see HPI Skin: no symptoms reported Psychiatric/Neurological: No Symptoms Reported Hematologic/Lymphatic: See HPI Immunological/Allergic: see HPI Past Xpcdyok-Htiqna-Cmozyk Hx Patient Social History Tobacco Use?: No Smoking Status: Former Smoker Substance use?: No Alcohol Use?: Yes Alcohol type: Wine Alcohol Frequency: Rarely Pt feels they are or have been: No Immunizations Up To Date Tetanus Booster (TDap): Unknown First/Initial COVID19 Vaccinat: 07/19/18 COVID19 Vaccine Media Marketing Coordinator: J & j Seasonal Allergies Seasonal Allergies: No Past Medical History Surgeries: Yes (VARICOSE VEIN STRIPPING) Appendectomy, Coronary Stent, Hysterectomy, Tonsillectomy Respiratory: Yes (Pulmonary lesion) Currently Using CPAP: No Currently Using BIPAP: No Cardiac: Yes ("WEAK HEART MUSCLE") Coronary Artery Disease Neurological: No : No Female Reproductive Disorders: Denies 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 oz. kg; 14.00 BMI Method: General Appearance: No Apparent Distress, WD/WN, Thin HEENT: PERRL/EOMI, Normal ENT Inspection Neck: Normal Inspection Respiratory: Lungs Clear, Normal Breath Sounds, No Accessory Muscle Use, No Respiratory Distress Cardiovascular: Regular Rate, Rhythm, No Edema, No Murmur Gastrointestinal: Non Tender, Soft Back: No Vertebral Tenderness, Other (No point tenderness or visible abnormality at the site of pain.) Extremity: Normal Inspection Neurologic/Psychiatric: Alert, Oriented x3, No Motor/Sensory Deficits, Normal Mood/Affect, stone layout marker II-XII Norm as Tested Skin: Normal Color, Warm/Dry; No Rash Progress/Results/Core Measures Suspected Sepsis SIRS Temperature: Pulse: 95 Respiratory Rate: 20 Laboratory Tests 12/09/20 09:00: White Blood Count 5.4 Blood Pressure 135 /75 Mean: 95 Laboratory Tests 12/09/20 09:00: Creatinine 0.71, INR Comment 1.1, Platelet Count 362, Total Bilirubin 0.5 Results/Orders Lab Results Laboratory Tests Test 12/09/20 09:00 12/09/20 10:03 Range/Units White Blood Count 5.4 4.3-11.0 10^3/uL Red Blood Count 1.89 L 3.80-5.11 10^6/uL Hemoglobin 5.4 *L 11.5-16.0 g/dL Hematocrit 18 *L 35-52 % Mean Corpuscular Volume 94 80-99 fL Mean Corpuscular Hemoglobin 29 25-34 pg Mean Corpuscular Hemoglobin Concent 31 L 32-36 g/dL Red Cell Distribution Width 17.1 H 10.0-14.5 % Platelet Count 362 130-400 10^3/uL Mean Platelet Volume 9.3 9.0-12.2 fL Immature Granulocyte % (Auto) 0 % Neutrophils (%) (Auto) 74 42-75 % Lymphocytes (%) (Auto) 11 L 12-44 % Monocytes (%) (Auto) 12 0-12 % Eosinophils (%) (Auto) 3 0-10 % Basophils (%) (Auto) 1 0-10 % Neutrophils # (Auto) 4.0 1.8-7.8 10^3/uL Lymphocytes # (Auto) 0.6 L 1.0-4.0 10^3/uL Monocytes # (Auto) 0.6 0.0-1.0 10^3/uL Eosinophils # (Auto) 0.1 0.0-0.3 10^3/uL Basophils # (Auto) 0.0 0.0-0.1 10^3/uL Immature Granulocyte # (Auto) 0.0 0.0-0.1 10^3/uL Prothrombin Time 14.6 12.2-14.7 SEC INR Comment 1.1 0.8-1.4 Activated Partial Thromboplast Time 29 24-35 SEC Sodium Level 128 L 135-145 MMOL/L Potassium Level 4.2 3.6-5.0 MMOL/L Chloride Level 100 98-107 MMOL/L Carbon Dioxide Level 19 L 21-32 MMOL/L Anion Gap 9 5-14 MMOL/L Blood Urea Nitrogen 13 7-18 MG/DL Creatinine 0.71 0.60-1.30 MG/DL Estimat Glomerular Filtration Rate 79 BUN/Creatinine Ratio 18 Glucose Level 101 70-105 MG/DL Calcium Level 8.7 8.5-10.1 MG/DL Corrected Calcium 8.9 8.5-10.1 MG/DL Magnesium Level 2.1 1.6-2.4 MG/DL Total Bilirubin 0.5 0.1-1.0 MG/DL Aspartate Amino Transf (AST/SGOT) 62 H 5-34 U/L Alanine Aminotransferase (ALT/SGPT) 73 H 0-55 U/L Alkaline Phosphatase 625 H 40-136 U/L Myoglobin 44.8 10.0-92.0 NG/ML Troponin I < 0.028 <0.028 NG/ML Total Protein 6.4 6.4-8.2 GM/DL Albumin 3.7 3.2-4.5 GM/DL Urine Color YELLOW Urine Clarity CLEAR Urine pH 7.0 5-9 Urine Specific [place] 1.010 L 1.016-1.022 Urine Protein NEGATIVE NEGATIVE Urine Glucose (UA) NEGATIVE NEGATIVE Urine Ketones NEGATIVE NEGATIVE Urine Nitrite NEGATIVE NEGATIVE Urine Bilirubin NEGATIVE NEGATIVE Urine Urobilinogen 0.2 < = 1.0 MG/DL Urine Leukocyte Esterase NEGATIVE NEGATIVE Urine RBC (Auto) NEGATIVE NEGATIVE Urine RBC RARE /HPF Urine WBC NONE /HPF Urine Squamous Epithelial Cells 0-2 /HPF Urine Crystals NONE /LPF Urine Bacteria NEGATIVE /HPF Urine Casts NONE /LPF Urine Mucus NEGATIVE /LPF Urine Culture Indicated NO My Orders Orders - RADHA SCOTT MD Cbc With Automated Diff (12/09/20 08:51) Magnesium (12/09/20 08:51) Chest 1 View, Ap/Pa Only (12/09/20 08:51) Ekg Tracing (12/09/20 08:51) Comprehensive Metabolic Panel (12/09/20 08:51) Myoglobin Serum (12/09/20 08:51) Protime With Inr (12/09/20 08:51) Partial Thromboplastin Time (12/09/20 08:51) O2 (12/09/20 08:51) Monitor-Rhythm Ecg Trace Only (12/09/20 08:51) Lipid Panel (12/10/20 06:00) Ed Iv/Invasive Line Start (12/09/20 08:51) Troponin I (12/09/20 08:51) Thoracic Spine, 2 Views Only (12/09/20 08:51) Tramadol Tablet (Ultram Tablet) (12/09/20 09:00) Red Cells Leukocytes Reduced (12/09/20 09:19) Type And Screen (12/09/20 09:19) Medications Given in ED Vital Signs/I&O 12/09/20 08:40 Temp 36.2 Pulse 95 Resp 20 B/P (MAP) 135/75 (95) Pulse Ox 98 Capillary Refill : Less Than 3 Seconds Blood Pressure Mean: 95 Progress Note : Progress Note Since there is no obvious musculoskeletal etiology to explain the patient's pain, chest pain work-up was pursued to evaluate for a chest pain equivalent represented by this back pain. During that work-up severe anemia was noted along with elevated alkaline phosphatase. Transfusion of 1 unit of packed red blood cells was ordered. Dr. Daniel and Dr. Kaiser were consulted. Patient is in a precarious situation with possible GI bleed as the source of her severe anemia yet need to continue on antiplatelet therapy due to recent stent placement. I did discuss CODE STATUS with the patient and she requests a DO NOT RESUSCITATE status. Ultram was administered for pain control. ECG Initial ECG Impression Date: Dec 09, 2020 Initial ECG Impression Time: 08:56 Initial ECG Rate: 76 Comment Sinus arrhythmia with no acute ischemic changes. Chronic left bundle branch block appears unchanged. No axis deviation. Diagnostic Imaging Diagonstic Imaging: Xray Plain Films/CT/US/NM/MRI: other (Thoracic spine) Comments Thoracic spine x-rays viewed by me and preliminary report reviewed. See report below: NAME: ELI SPRAGUE [facility] REC#: [id number] PT STATUS: REG ER : 1940 PHYSICIAN: RADHA SCOTT MD ADMIT DATE: 12/09/20/ER Draft Date of Exam:12/09/20 THORACIC SPINE, 2 VIEWS ONLY EXAM: THORACIC SPINE, 2 VIEWS ONLY INDICATION: Intermittent severe back pain started Monday. COMPARISON: None. FINDINGS: Moderate right apex thoracic curvature. Mild degenerative endplate changes. No fractures identified. Demineralization. Calcified aorta. Cardiomegaly. IMPRESSION: No acute radiographic findings in the thoracic spine. This could be better evaluated with CT or MRI if clinically warranted. Dictated on workstation # [id number] Dict: 12/09/20 1008 Trans: 12/09/20 1012 [facility] [id number] Interpreted by: CHEVY MADRID MD Diagonstic Imaging: Xray Plain Films/CT/US/NM/MRI: chest Comments Chest x-ray viewed by me and preliminary report reviewed. See report below: NAME: ELI SPRAGUE REC#: [id number] PT STATUS: REG ER : 1940 PHYSICIAN: RADHA SCOTT MD ADMIT DATE: 12/09/20/ER Draft Date of Exam:12/09/20 CHEST 1 VIEW, AP/PA ONLY INDICATION: Back and chest pain. COMPARISON: None. FINDINGS: A single view of the chest demonstrates hyperinflation, compatible with COPD. The heart is slightly enlarged. Otherwise, the lungs are clear. There is no pneumothorax. No large effusion is seen. The osseous structures are normal. IMPRESSION: 1. Suspect COPD. 2. Cardiac enlargement without pulmonary edema or acute infiltrate. Dictated on workstation # [id number] Dict: 12/09/20 1009 Trans: 12/09/20 1011 [id number] Interpreted by: JACKI FINN Departure Communication (Admissions) Time/Spoke to Admitting Phy: 10:19 Anny Daniel at [address] Dr. Kaiser at 1014 Impression Primary Impression: Severe anemia Additional Impressions: Elevated alkaline phosphatase level Melena Upper back pain on left side Disposition: ADMITTED INPATIENT Condition: Stable Admissions Decision to Admit Reason: Admit from ER (General) Decision to Admit/Date: Dec 09, 2020 Time/Decision to Admit Time: 09:15 Departure-Patient Inst. Referrals: ROBSON MO DO (PCP/Family) Primary Care Physician RADHA SCOTT MD Dec 09, 2020 10:21
[2020-12-09] MEDS ORDERED: NS IV 500 ML 500 ML ONE (10:48)
[2020-12-09 11:39] LABS: BILIRUBIN,URINE NEGATIVE (NEGATIVE); CLARITY,URINE CLEAR; COLOR,URINE YELLOW; GLUCOSE, URINE (UA) NEGATIVE (NEGATIVE); KETONES,URINE NEGATIVE (NEGATIVE); LEUKOCYTE ESTERASE ,URINE NEGATIVE (NEGATIVE); NITRITE,URINE NEGATIVE (NEGATIVE); PROTEIN,URINE NEGATIVE (NEGATIVE)
[2020-12-09] MEDS ORDERED: ACETAMINOPHEN 325 MG TABLET PO PRN (11:45)
[2020-12-09] MEDS ORDERED: ONDANSETRON 4 MG/2 ML (SDV) Z0FRAN IV PRN (11:45)
[2020-12-09 11:48] LABS: BACTERIA,URINE NEGATIVE /HPF; RBC,URINE RARE /HPF; SQUAMOUS EPITHELIAL CELL,UR 0-2 /HPF
--- NOTE | 2020-12-09 12:16 | Consultation-Cardiology ---
HPI-Cardiology Cardiology Consultation: Date of Consultation 12/09/20 Time Seen by a Provider: 13:00 Date of Admission Attending Physician Ericka Mccormick DO Admitting Physician Ericka Mccormick DO Consulting Physician TEMITOPE KUO MD, MA, FACP, FACC, FSCAI, CCDS HPI: Chief Complaint: Marked weakness, L shoulder discomfort 80 yo woman who presented to the ER for eval of marked, increasing fatigue and malaise. Also has has continuous discomfort in the L shoulder and the L shoulder blade for several days, continuously. Has had intermittent constipation and has intermittently had dark/black stools. Appetite has been poor. She has been trying to eat to maintain wgt but has had increasing wgt loss. Denies swelling. Denies cp. Denies focal weakness. Denies palp or syncope Review of Systems-Cardiology Review of Systems Constitutional: As described under HPI Eyes: No vision change Ears/Nose/Throat: chronic hearing loss; No ear discharge, No nasal drainage, No recent hearing loss Respiratory: As described under HPI Cardiovascular: As described under HPI Gastrointestinal: As described under HPI Genitourinary: No dysuria, No hematuria, No urine frequency changes : No Musculoskeletal: back pain (chronic); No joint pain Skin: No rash on exposed areas, No ulcerations on exposed areas Psychiatric/Neurological: No seizure, No focal weakness, No syncope Hematologic: As described under HPI VCK-Wukqwy-Yltzan Hx Patient Social History Smoking Status: Former Smoker 2nd Hand Smoke Exposure: No Have you traveled recently?: No Alcohol Use?: Yes Pt feels they are or have been: No Immunizations Up To Date Tetanus Booster (TDap): Unknown Date of Pneumonia Vaccine: Dec 25, 2017 Past Medical History PMH As described under Assessment. Family Medical History Family Medical History: She does not report fam h/o early CAD Allergies and Home Medications Allergies Coded Allergies: Penicillins (Verified Allergy, Unknown, 05/08/20) hydrocodone (Verified Allergy, Unknown, 10/13/20) Home Medications Acetaminophen 500 Mg Tablet, 500 MG PO Q8H PRN for PAIN-MILD (1-4), (Reported) Last Action: Reviewed Aspirin 81 Mg Tablet.dr, 81 MG PO DAILY, (Reported) Last Action: Reviewed Atorvastatin Calcium 40 Mg Tablet, 40 MG PO 1200 W/MEAL, (Reported) Last Action: Reviewed Clopidogrel Bisulfate 75 Mg Tablet, 75 MG PO DAILY, (Reported) Last Action: Reviewed Losartan Potassium 50 Mg Tablet, 50 MG PO 1800 W/MEAL, (Reported) Last Action: Reviewed [Balance Of Nature] , 1 EACH PO DAILY, (Reported) Last Action: Reviewed Patient Home Medication List Home Medication List Reviewed: Yes Physical Exam-Cardiology Physical Exam Vital Signs/I&O 12/09/20 12/09/20 12/09/20 12/09/20 08:40 10:59 11:15 11:17 Temp 36.2 36.6 36.5 Pulse 95 67 66 64 Resp 20 18 17 18 B/P (MAP) 135/75 (95) 140/67 138/67 138/77 (91) Pulse Ox 98 100 100 100 12/09/20 12/09/20 12/09/20 12/09/20 11:30 11:33 11:34 11:47 Temp 36.5 36.3 Pulse 67 63 67 61 Resp 18 20 B/P (MAP) 144/68 (93) 146/68 150/67 Pulse Ox 98 98 O2 Delivery Room Air Room Air 12/09/20 12/09/20 12/09/20 12/09/20 11:53 12:00 12:01 13:38 Temp 36.3 Pulse 61 61 60 Resp 20 20 B/P (MAP) 148/65 (92) 148/65 Pulse Ox 98 97 97 O2 Delivery Room Air Room Air Room Air 12/09/20 12/09/20 15:58 16:00 Pulse 70 Resp 23 B/P (MAP) 140/70 (93) Pulse Ox 98 O2 Delivery Room Air Room Air Capillary Refill : Less Than 3 Seconds Constitutional: AAO x 3, well-developed, well-nourished HEENT: EOMI, hearing is well preserved, xanthelasmas are seen Neck: carotid pulses are 2 + bilaterally, with good upstrokes Respiratory: No accessory muscle use; other (fair, bilateral air entry; prolong ed exp) Cardiovascular: regular rate-rhythm, S1 and S2, systolic murmur (soft JOLE at card base) Gastrointestinal: No tender; soft; No guarding, No rebound; audible bowel sounds Extremities: No clubbing, No cyanosis, No significant edema Neurologic/Psychiatric: oriented x 3, other (moves all limbs equally) Skin: No rash on exposed areas, No ulcerations on exposed areas Data Review Labs Laboratory Tests 12/09/20 09:00: White Blood Count 5.4, Red Blood Count 1.89L, Hemoglobin 5.4*L, Hematocrit 18*L, Mean Corpuscular Volume 94, Mean Corpuscular Hemoglobin 29, Mean Corpuscular Hemoglobin Concent 31L, Red Cell Distribution Width 17.1H, Platelet Count 362, Mean Platelet Volume 9.3, Immature Granulocyte % (Auto) 0, Neutrophils (%) (Auto) 74, Lymphocytes (%) (Auto) 11L, Monocytes (%) (Auto) 12, Eosinophils (%) (Auto) 3, Basophils (%) (Auto) 1, Neutrophils # (Auto) 4.0, Lymphocytes # (Auto) 0.6L, Monocytes # (Auto) 0.6, Eosinophils # (Auto) 0.1, Basophils # (Auto) 0.0, Immature Granulocyte # (Auto) 0.0, Prothrombin Time 14.6, INR Comment 1.1, Activated Partial Thromboplast Time 29, Sodium Level 128L, Potassium Level 4.2, Chloride Level 100, Carbon Dioxide Level 19L, Anion Gap 9, Blood Urea Nitrogen 13, Creatinine 0.71, Estimat Glomerular Filtration Rate 79, BUN/Creatinine Ratio 18, Glucose Level 101, Calcium Level 8.7, Corrected Calcium 8.9, Magnesium Level 2.1, Total Bilirubin 0.5, Aspartate Amino Transf (AST/SGOT) 62H, Alanine Aminotransferase (ALT/SGPT) 73H, Alkaline Phosphatase 625H, Myoglobin 44.8, Troponin I < 0.028, Total Protein 6.4, Albumin 3.7 12/09/20 10:03: Urine Color YELLOW, Urine Clarity CLEAR, Urine pH 7.0, Urine Specific [place] 1.010L, Urine Protein NEGATIVE, Urine Glucose (UA) NEGATIVE, Urine Ketones NEGATIVE, Urine Nitrite NEGATIVE, Urine Bilirubin NEGATIVE, Urine Urobilinogen 0.2, Urine Leukocyte Esterase NEGATIVE, Urine RBC (Auto) NEGATIVE, Urine RBC RARE, Urine WBC NONE, Urine Squamous Epithelial Cells 0-2, Urine Crystals NONE, Urine Bacteria NEGATIVE, Urine Casts NONE, Urine Mucus NEGATIVE, Urine Culture Indicated NO 12/09/20 14:52: Hemoglobin 6.8#*L, Hematocrit 22L Laboratory Tests 12/09/20 09:00 12/09/20 14:52 A/P-Cardiology Assessment/Admission Diagnosis Severe anemia, likely due to GI bleed of undetermined etiology Coronary artery disease: - Cath of 10/13/20: tandem 99% stenoses in the mid left anterior descending, which were successfully treated with deployment of a Mary 2.5 x 28 mm stent. The left circumflex artery has mild plaques. Right coronary artery has 95% mid vessel stenosis (not intervented on, she has not agreed yet) . Normal left ventricular end diastolic pressure. Moderate impairment of global left ventricular systolic function with ejection fraction approximately 40%. Syncope of undetermined etiology on 09/25/20, none since cor intervention Hypertension, treated chronically with losartan Musculoskeletal w/u in the ER after syncope of 09/25/20 showed acute spinous precess fractures of C6 and C7 Underweight (BMI approx 15). Considerable, unintentional wgt loss since 2017, managed by her pcp Quit smoking in 2011 Mild, chronic, hyponatremia of undetermined etiology, managed by her pcp Hard of hearing Discussion and Recomendations * Complex management due to multiple comorbidities * We recommend blood transfusion to restore hemoglobin around 10 g/dL and investigation for and treatment of cause of anemia * Stopping Plavix would be associated high risk of fatal NH, given recent ISAIAS of proximal/mid LAD. ASA can be stopped for a few days if active bleeding is suspected * Monitor labs TEMITOPE KUO MD FACP [facility] CCDS Dec 09, 2020 12:16
[2020-12-09] MEDS ORDERED: LOSA50TA63 PO (14:41)
[2020-12-09] MEDS ORDERED: CLOP75TA28 PO (14:41)
[2020-12-09] MEDS ORDERED: BALANCE OF NATURE PO (14:41)
[2020-12-09] MEDS ORDERED: ATOR40TA70 PO (14:41)
[2020-12-09] MEDS ORDERED: ACET-2267 PO (14:41)
[2020-12-09] MEDS ORDERED: ASPI-1238 PO (14:41)
[2020-12-09 15:25] LABS: HEMOGLOBIN 6.8 g/dL (11.5-16.0)
--- NOTE | 2020-12-09 15:28 | CONSULTATION REPORT ---
DATE OF SERVICE: 12/09/2020 ADMITTING PRIMARY CARE PHYSICIAN: Ericka Mccormick DO. HISTORY OF PRESENT ILLNESS: The patient is an 80-year-old female, who presented to the Emergency Department with left upper back pain. She also had mentioned fatigue, but also upon further questioning, has had dark tarry stools. Labs were drawn and she was found to be significantly anemic with a hemoglobin of 5.4. She recently underwent a cardiac catheterization as well as a stent placement for coronary artery disease. She is also being evaluated for a right lung lesion in [place]. She is on anticoagulation for her coronary artery disease with aspirin and Plavix. PAST MEDICAL HISTORY: Coronary artery disease and congestive heart failure. PAST SURGICAL HISTORY: 1. Cardiac catheterization and stent placement. 2. Hysterectomy. 3. Tonsillectomy. 4. Appendectomy. ALLERGIES: HYDROCODONE, PENICILLIN. MEDICATIONS: Aspirin 81 mg daily, Plavix 75 mg daily, atorvastatin 40 mg daily and losartan 25 mg daily. SOCIAL HISTORY: Previous smoker. She does drink alcohol socially. FAMILY HISTORY: Noncontributory. REVIEW OF SYSTEMS: A well-nourished, thin-appearing female, currently in no acute distress. She is not experiencing any shortness of breath nor difficulty breathing. No chest pain; however, does report left upper back pain. No new cough or sputum production. No nausea, vomiting; however, does report a history of peptic ulcer disease. No hematemesis. She has had melena on an intermittent basis for the past several weeks. No red blood per rectum. No fever, chills, no recent inadvertent weight loss. All other review of systems negative. PHYSICAL EXAMINATION: VITAL SIGNS: Temperature 36.2, blood pressure 135/75, pulse 95, respirations 20, and pulse ox 98% on room air. CHEST: Few are distant breath sounds and scattered wheezes bilaterally. HEART: Regular, no murmurs. EXTREMITIES: No lower extremity edema and negative Homans sign. HEENT: No scleral icterus. NECK: No cervical lymphadenopathy. ABDOMEN: Soft and nondistended. There is mild discomfort in the epigastric region upon deep palpation. SKIN: Warm, dry. LABORATORY DATA: WBC 5.4, hemoglobin 5.4, hematocrit 18, platelets 362, BUN 13, and creatinine 0.71. ASSESSMENT AND PLAN: An 80-year-old female with anemia and melena. We will treat her medically with resuscitation with blood products; however, also a PPI acid racker octave board on a b.i.d. basis. We will also proceed with an EGD on this admission. Job ID: [id number] DocumentID: [id number] Dictated Date: 12/09/2020 15:03:05 Harness Worker Date: 12/09/2020 15:27:15 Dictated By: GODWIN CHASE MD
[2020-12-09] MEDS ORDERED: LORazepam INJ 2 MG/ML (ATIVAN) VIAL IVP PRN (16:00)
[2020-12-09] MEDS ORDERED: NS IV 500 ML 500 ML IV SCH (20:00)
--- NOTE | 2020-12-09 20:02 | History & Physical ---
History of Present Illness History of Present Illness Reason for visit/HPI This is an 80 year old female who underwent cardiac catheterization with stent placement by Dr. Daniel in September of 2020. She has been on plavix and aspirin since that intervention. She was supposed to undergo a repeat cardiac catheterization for a second intervention but she refused to do that stating she needed more time. She states she has not felt well since having the cardiac catheterization done in September. She presented to the emergency room due to fatigue and upper back pain. She did admit she has been having dark stools over the last few weeks. She was found to be severely anemic with a H/H of 5.4/18. She will be admitted for blood transfusion and further evaluation. Date of Admission Dec 09, 2020 at 10:22 Date Seen by a Provider: Dec 09, 2020 Time Seen by a Provider: 19:59 I consulted on this patient on 12/09/20 19:56 Attending Physician Ericka Mccormick DO Admitting Physician Ericka Mccormick DO Consult Allergies and Home Medications Allergies Coded Allergies: Penicillins (Verified Allergy, Unknown, 05/08/20) hydrocodone (Verified Allergy, Unknown, 10/13/20) Home Medications Acetaminophen 500 Mg Tablet, 500 MG PO Q8H PRN for PAIN-MILD (1-4), (Reported) Last Action: Reviewed Aspirin 81 Mg Tablet.dr, 81 MG PO DAILY, (Reported) Last Action: Reviewed Atorvastatin Calcium 40 Mg Tablet, 40 MG PO 1200 W/MEAL, (Reported) Last Action: Reviewed Clopidogrel Bisulfate 75 Mg Tablet, 75 MG PO DAILY, (Reported) Last Action: Reviewed Losartan Potassium 50 Mg Tablet, 50 MG PO 1800 W/MEAL, (Reported) Last Action: Reviewed [Balance Of Nature] , 1 EACH PO DAILY, (Reported) Last Action: Reviewed Patient Home Medication List Home Medication List Reviewed: Yes Past Kgwpdqw-Ajjwft-Vghith Hx Patient Social History Marrital Status: single Tobacco Use?: No Smoking Status: Former Smoker Substance use?: No Alcohol Use?: Yes Alcohol type: Wine Additional alcohol type: RED Alcohol Frequency: Once in a while Pt feels they are or have been: No Immunizations Up To Date First/Initial COVID19 Vaccinat: 07/19/18 Second COVID19 Vaccination Sivakumar: 07/19/18 Tetanus Booster (TDap): Unknown Date of Pneumonia Vaccine: Dec 25, 2017 Seasonal Allergies Seasonal Allergies: No Current Status Advance Directives: Yes Advance Directive Location: Copy from prev record Communicates: Verbally Primary Language: Gibraltarian Preferred Spoken Language: [place]tarian Is interpretation needed?: No Sensory deficits: Hearing impairment Implanted or Applied Medical D: Stents, Other Past Medical History Surgeries: Appendectomy, Coronary Stent, Hysterectomy, Tonsillectomy Currently Using CPAP: No Currently Using BIPAP: No 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 Sexually Transmitted Disease: No HIV/AIDS: No Blood Disorders: No Review of Systems Constitutional: weakness, weight loss EENTM: No see HPI, No no symptoms reported, No ear discharge, No hearing loss, No ear pain, No blurred vision, No double vision, No eye pain, No tearing, No vision loss, No dental problems, No hoarseness, No mouth pain, No mouth swelling, No epistaxis, No nose congestion, No nose pain, No throat pain, No throat swelling, No other Respiratory: No no symptoms reported, No see HPI, No cough, No dyspnea on exertion, No hemoptysis, No orthopnea, No phlegm, No short of breath, No stridor, No wheezing, No other Cardiovascular: No no symptoms reported, No see HPI, No chest pain, No edema, No Hx of Intervention, No palpitations, No syncope, No vascular heart diseas, No other Gastrointestinal: melena Genitourinary: No no symptoms reported, No see HPI, No decreased output, No discharge, No dysuria, No frequency, No hematuria, No hesitancy, No incontinence, No nocturia, No pain, No other Musculoskeletal: back pain, muscle weakness Skin: No no symptoms reported, No see HPI, No change in color, No change in hair/nails, No dryness, No hx of skin cancer, No lesions, No lumps, No pruritus, No rash, No other Psychiatric/Neurological: Weakness Physical Exam Vital Signs Vital Signs - First Documented 12/09/20 12/09/20 08:40 11:33 Temp 36.2 Pulse 95 Resp 20 B/P (MAP) 135/75 (95) Pulse Ox 98 O2 Delivery Room Air Capillary Refill : Less Than 3 Seconds Height, Weight, BMI Height: '" Weight: lbs. oz. kg; 15.66 BMI Method: General Appearance: No Apparent Distress HEENT: Pale Conjunctivae (L), Pale Conjunctivae (R) Neck: Supple Respiratory: Lungs Clear, Decreased Breath Sounds Cardiovascular: Gallop/S4, Tachycardia Gastrointestinal: Normal Bowel Sounds, Non Tender, Soft Rectal: Deferred Back: No CVA Tenderness Extremity: Non Tender, No Calf Tenderness, No Pedal Edema Neurologic/Psychiatric: Alert, Oriented x3 Skin: Pallor Comments Laboratory Tests 12/09/20 09:00: White Blood Count 5.4, Red Blood Count 1.89L, Hemoglobin 5.4*L, Hematocrit 18*L, Mean Corpuscular Volume 94, Mean Corpuscular Hemoglobin 29, Mean Corpuscular Hemoglobin Concent 31L, Red Cell Distribution Width 17.1H, Platelet Count 362, Mean Platelet Volume 9.3, Immature Granulocyte % (Auto) 0, Neutrophils (%) (Auto) 74, Lymphocytes (%) (Auto) 11L, Monocytes (%) (Auto) 12, Eosinophils (%) (Auto) 3, Basophils (%) (Auto) 1, Neutrophils # (Auto) 4.0, Lymphocytes # (Auto) 0.6L, Monocytes # (Auto) 0.6, Eosinophils # (Auto) 0.1, Basophils # (Auto) 0.0, Immature Granulocyte # (Auto) 0.0, Prothrombin Time 14.6, INR Comment 1.1, Activated Partial Thromboplast Time 29, Sodium Level 128L, Potassium Level 4.2, Chloride Level 100, Carbon Dioxide Level 19L, Anion Gap 9, Blood Urea Nitrogen 13, Creatinine 0.71, Estimat Glomerular Filtration Rate 79, BUN/Creatinine Ratio 18, Glucose Level 101, Calcium Level 8.7, Corrected Calcium 8.9, Magnesium Level 2.1, Total Bilirubin 0.5, Aspartate Amino Transf (AST/SGOT) 62H, Alanine Aminotransferase (ALT/SGPT) 73H, Alkaline Phosphatase 625H, Myoglobin 44.8, Troponin I < 0.028, Total Protein 6.4, Albumin 3.7 12/09/20 10:03: Urine Color YELLOW, Urine Clarity CLEAR, Urine pH 7.0, Urine Specific Gilliam 1.010L, Urine Protein NEGATIVE, Urine Glucose (UA) NEGATIVE, Urine Ketones NEGATIVE, Urine Nitrite NEGATIVE, Urine Bilirubin NEGATIVE, Urine Urobilinogen 0.2, Urine Leukocyte Esterase NEGATIVE, Urine RBC (Auto) NEGATIVE, Urine RBC RARE, Urine WBC NONE, Urine Squamous Epithelial Cells 0-2, Urine Crystals NONE, Urine Bacteria NEGATIVE, Urine Casts NONE, Urine Mucus NEGATIVE, Urine Culture Indicated NO 12/09/20 14:52: Hemoglobin 6.8#*L, Hematocrit 22L Assessment/Plan Assessment and Plan 1. Severe Anemia due to Acute Upper GI Hemorrhage--transfuse to get H/H above 8--cardiology wanting up to closer to 10 2. Melena--start IV protonix and sucralfate, EGD by surgery, had normal colonoscopy at beginning of 2020 3. CAD with recent stent placement and need for further intervention--patient high risk being off plavix and aspirin for coronary event but due to GI Bleed will get EGD done and resume plavix YOUNG 4. COPD--stable 5. Right Lung Mass--being followed by pulmonology and has seen Dr. Rosario recently as well 6. Anxiety--xanax prn Admission Diagnosis Admission Status: Inpatient Order (span 2 midnights) Reason for Inpatient Admission: Will need monitoring of H/H and further workup for GI bleed ERICKA MCCORIMCK DO Dec 09, 2020 20:02
[2020-12-09] MEDS: PANTOPRAZOLE 40 MG (PROTONIX) VIAL IV SCH (21:14)
[2020-12-09] MEDS: SUCRALFATE 1 GM (CARAFATE) TAB PO SCH (21:14)
[2020-12-10] VITALS (13 sets, daily range): BP systolic 107–168; BP diastolic 44–71
[2020-12-10] MEDS: ALPRAZolam 0.25 MG (XANAX) TAB PO PRN (06:10)
[2020-12-10] MEDS: SUCRALFATE 1 GM (CARAFATE) TAB PO SCH ×4 (06:10→19:59)
[2020-12-10 06:29] LABS: BASOPHILS # (AUTO) 0.1 10^3/uL (0.0-0.1); BASOPHILS % (AUTO) 1 % (0-10); EOSINOPHILS # (AUTO) 0.3 10^3/uL (0.0-0.3); EOSINOPHILS % (AUTO) 4 % (0-10); HEMATOCRIT 28 % (35-52); HEMOGLOBIN 8.9 g/dL (11.5-16.0); LYMPHOCYTES # (AUTO) 0.8 10^3/uL (1.0-4.0); LYMPHOCYTES % (AUTO) 10 % (12-44); MEAN CORPUSCULAR HEMOGLOBIN 29 pg (25-34); MEAN CORPUSCULAR HGB CONC 32 g/dL (32-36); MEAN CORPUSCULAR VOLUME 90 fL (80-99); MEAN PLATELET VOLUME 9.4 fL (9.0-12.2); MONOCYTES # (AUTO) 0.5 10^3/uL (0.0-1.0); MONOCYTES % (AUTO) 7 % (0-12); NEUTROPHILS # (AUTO) 6.2 10^3/uL (1.8-7.8); NEUTROPHILS % (AUTO) 78 % (42-75); PLATELET COUNT 308 10^3/uL (130-400); WHITE BLOOD COUNT 7.9 10^3/uL (4.3-11.0)
[2020-12-10 06:35] LABS: POTASSIUM 4.1 MMOL/L (3.6-5.0)
[2020-12-10 06:37] LABS: CALCIUM 8.8 MG/DL (8.5-10.1)
[2020-12-10 06:41] LABS: CREATININE SERUM 0.73 MG/DL (0.60-1.30)
[2020-12-10] MEDS: PANTOPRAZOLE 40 MG (PROTONIX) VIAL IV SCH ×2 (08:40→19:58)
[2020-12-10] MEDS: LIDOCAINE 4% (SALONPAS) PATCH TOP SCH (08:58)
[2020-12-10] MEDS: PARoxetine 10 MG (PAXIL) TAB PO SCH (08:58)
--- NOTE | 2020-12-10 10:19 | Progress Note-Pre Operative ---
Pre-Operative Progress Note H&P Reviewed The H&P was reviewed, patient examined and no changes noted. Date Seen by Provider: Dec 10, 2020 Time Seen by Provider: 10:15 Date H&P Reviewed: Dec 10, 2020 Time H&P Reviewed: 10:10 Pre-Operative Diagnosis: Anemia and Melena SANDIE NATHAN APRN Dec 10, 2020 10:19
[2020-12-10] MEDS ORDERED: LACTATED RINGERS 1,000 ML IV STA (15:59)
[2020-12-10] MEDS ORDERED: LIDOCAINE JELLY 2% 6 ML SYRINGE MM PRN (16:00)
[2020-12-10] MEDS ORDERED: HURRICAINE EXT TUBE (BENZOCAINE) XX PRN (16:00)
[2020-12-10] MEDS ORDERED: LACTATED RINGERS 1,000 ML IV ONE (16:05)
[2020-12-10] MEDS ORDERED: LIDOCAINE JELLY 2% 6 ML SYRINGE ONE (16:08)
[2020-12-10] MEDS ORDERED: HURRICAINE EXT TUBE (BENZOCAINE) ONE (16:08)
[2020-12-10] MEDS ORDERED: proPOfol 200 MG/20 ML (DIPRIVAN) VIAL IV ONE (16:34)
--- NOTE | 2020-12-10 16:34 | Progress Note - Cardiology ---
Cardiology SOAP Progress Note Subjective: Persistent gen malaise and weakness Poor appetite No cp or palp or syncope No focal weakness Objective: I&O/Vital Signs 12/10/20 12/10/20 12/10/20 12/10/20 04:33 07:00 07:36 08:00 Temp 36.8 36.5 Pulse 57 70 62 Resp 17 20 B/P (MAP) 132/63 (86) 145/71 (95) Pulse Ox 92 99 O2 Delivery Room Air Room Air Room Air 12/10/20 12/10/20 12:00 13:00 Temp 35.9 Pulse 59 62 Resp 20 B/P (MAP) 136/57 (83) Pulse Ox 93 O2 Delivery Room Air 12/10/20 00:00 Intake Total 900 ml Balance 900 ml Constitutional: AAO x 3, well-developed, well-nourished Respiratory: No accessory muscle use; other (fair, bilateral air entry; prolonged exp) Cardiovascular: regular rate-rhythm, S1 and S2, systolic murmur (soft JOEL at card base) Gastrointestional: No tender; soft; No guarding, No rebound; audible bowel sounds Extremities: No clubbing, No cyanosis, No significant edema Neurologic/Psychiatric: oriented x 3, other (moves all limbs equally) Skin: No rash on exposed areas, No ulcerations on exposed areas Results/Procedures: Labs Laboratory Tests 12/10/20 05:59: White Blood Count 7.9, Red Blood Count 3.06L, Hemoglobin 8.9#L, Hematocrit 28L, Mean Corpuscular Volume 90, Mean Corpuscular Hemoglobin 29, Mean Corpuscular Hemoglobin Concent 32, Red Cell Distribution Width 16.3H, Platelet Count 308, Mean Platelet Volume 9.4, Immature Granulocyte % (Auto) 0, Neutrophils (%) (Auto) 78H, Lymphocytes (%) (Auto) 10L, Monocytes (%) (Auto) 7, Eosinophils (%) (Auto) 4, Basophils (%) (Auto) 1, Neutrophils # (Auto) 6.2, Lymphocytes # (Auto) 0.8L, Monocytes # (Auto) 0.5, Eosinophils # (Auto) 0.3, Basophils # (Auto) 0.1, Immature Granulocyte # (Auto) 0.0, Sodium Level 130L, Potassium Level 4.1, Chloride Level 101, Carbon Dioxide Level 18L, Anion Gap 11, Blood Urea Nitrogen 11, Creatinine 0.73, Estimat Glomerular Filtration Rate 77, BUN/Creatinine Ratio 15, Glucose Level 97, Calcium Level 8.8, Triglycerides Level 79, Cholesterol Level 128, LDL Cholesterol Direct 32, VLDL Cholesterol 16, HDL Cholesterol 71H 12/10/20 10:40: SARS-CoV-2 RNA (RT-PCR) Not Detected 12/10/20 13:13: Lab Scanned Report Transfusion Reaction Form Laboratory Tests 12/09/20 09:00 12/09/20 14:52 12/10/20 05:59 A/P: Assessment: Severe anemia, likely due to GI bleed of undetermined etiology Coronary artery disease: - Cath of 10/13/20: tandem 99% stenoses in the mid left anterior descending, which were successfully treated with deployment of a Mary 2.5 x 28 mm stent. The left circumflex artery has mild plaques. Right coronary artery has 95% mid vessel stenosis (not intervented on, she has not agreed yet) . Normal left ventricular end diastolic pressure. Moderate impairment of global left ventr icular systolic function with ejection fraction approximately 40%. Syncope of undetermined etiology on 09/25/20, none since cor intervention Hypertension, treated chronically with losartan Musculoskeletal w/u in the ER after syncope of 09/25/20 showed acute spinous precess fractures of C6 and C7 Underweight (BMI approx 15). Considerable, unintentional wgt loss since 2018, managed by her pcp Quit smoking in 2011 Mild, chronic, hyponatremia of undetermined etiology, managed by her pcp Hard of hearing Plan: * Complex management due to multiple comorbidities * We recommend blood transfusion to restore hemoglobin around 10 g/dL and investigation for and treatment of cause of anemia * Stopping Plavix would be associated high risk of fatal CA, given recent ISAIAS of proximal/mid LAD. We recommend that Plavix not be stopped. ASA can be stopped for a few days if active bleeding is suspected * Monitor labs TEMITOPE KUO MD FACP [facility] Dec 10, 2020 16:34
--- NOTE | 2020-12-10 17:12 | Progress Note-Post Operative ---
Post-Operative Progess Note Surgeon (s)/Fire Crew Worker (s) Surgeon GODWIN CHASE MD Fire Crew Worker: none Pre-Operative Diagnosis Anemia and Melena Post-Operative Diagnosis reflux esophagitis(stage 2), small HH(2cm), moderate gastritis, small healed prepyloric ulcer, no active bleed. Procedure & Operative Findings Date of Procedure 12/10/20 Procedure Performed/Findings EGD with bx. Anesthesia Type mac Estimated Blood Loss Estimated blood loss (mL): minimal Specimens/Packing Specimens Removed prepyloric ulcer, antrum, ge jxn. GODWIN CHASE MD Dec 10, 2020 17:12
--- NOTE | 2020-12-10 17:27 | OPERATIVE REPORT ---
DATE OF SERVICE: 12/10/2020 ATTENDING PRIMARY CARE PHYSICIAN: Ericka Mccormick DO PREOPERATIVE DIAGNOSIS: Anemia with dark tarry stools. POSTOPERATIVE DIAGNOSES: Reflux esophagitis stage II, small hiatal hernia 2 cm in size, old small chronic prepyloric ulcer, which has mostly healed. Moderate gastritis. No duodenal ulcers, no active bleeding. PROCEDURE PERFORMED: EGD with biopsy. SURGEON: Godwin Chase MD ANESTHESIA: Monitored anesthesia care. ESTIMATED BLOOD LOSS: Minimal. FINDINGS: Reflux esophagitis stage II, small hiatal hernia 2 cm in size, old small chronic prepyloric ulcer, which has mostly healed. Moderate gastritis. No duodenal ulcers, no active bleeding. DISPOSITION: The patient tolerated the procedure well. INDICATIONS: The patient is an 80-year-old female who presented with fatigue and was found to be severely anemic with a hemoglobin of 5.1. She has received packed red blood cell transfusions and her hemoglobin has gone up appropriately. She did have a recent cardiac catheterization and was placed on aspirin and Plavix as well. A stent was also placed at that time. Upon further questioning, she reports that she has been under a tremendous amount of stress lately due to the of family members as well as friends. DESCRIPTION OF PROCEDURE: The patient was brought to the endoscopy suite, laid in the left lateral decubitus position. After adequate IV pain and sedative medications and monitored anesthesia care, a mouth piece was applied. The endoscope was then placed in the mouth to visualize the pharynx hypopharyngeal region. Vocal cords, epiglottis and vallecula identified and appeared to be normal. Endoscope was then gently via the esophageal opening and esophagus and insufflated. Endoscope was then advanced through the first, second, third portion of the esophagus at the level of the GE junction. Reflux esophagitis stage II identified. There were no ulcers or strictures identified in this region. A biopsy was taken with forceps with visualization of good hemostasis. The endoscope was then advanced in the stomach and then the scope retroflexed, visualizing a small hiatal hernia approximately 2 cm in size. There was a moderate severity gastritis; however, at the prepyloric region, there was an old almost healed chronic ulcer identified, which was small, approximately 2 mm in size. This was biopsied using forceps with visualization was good hemostasis. A biopsy was also taken to the antrum to rule out H. pylori with visualization of good hemostasis as well. The endoscope was then advanced to the pylorus and the first and second portion of the duodenum, which appeared normal with no ulcerations and no active bleeding source was identified. The endoscope was then slowly withdrawn while taking a second look and suctioning of residual air with no additional findings. The patient tolerated the procedure well. At this time, we feel that her bleeding was a chronic process. However, by the time she became symptomatic, the source which was the prepyloric ulcer had mostly healed and at this time, there are no signs or symptoms of active bleeding and we will recommend after discharge to continue with proton pump inhibitor acid clinical trials assistant as well as Carafate for approximately one week. At this time, there is no contraindication to restarting aspirin and Plavix. Job ID: [id number] DocumentID: [id number] Dictated Date: 12/10/2020 17:03:13 Applications Engineer Date: 12/10/2020 17:26:58 Dictated By: GODWIN CHASE MD
--- NOTE | 2020-12-10 18:22 | Progress Note ---
Subjective Date Seen by a Provider: Dec 10, 2020 Time Seen by a Provider: 08:35 Subjective/Events-last exam Fwup acute Upper GI hemorrhage with severe anemia, CAD with recent stent placement, COPD, Anxiety, upper thoracic pain, Left lung mass. Complains of upper back pain and anxiety. Objective Exam Vital Signs Date Time Temp Pulse Resp B/P (MAP) Pulse Ox O2 Delivery O2 Flow Rate FiO2 12/10/20 17:28 63 16 92 Room Air 12/10/20 17:23 59 16 93 Room Air 12/10/20 17:18 60 16 96 OxyMask 2 12/10/20 17:13 63 16 90 Room Air 12/10/20 17:08 55 16 99 OxyMask 5 12/10/20 17:03 57 16 99 OxyMask 10 12/10/20 16:00 36.5 67 18 168/70 (102) 93 Room Air 12/10/20 13:00 62 12/10/20 12:00 35.9 59 20 136/57 (83) 93 Room Air 12/10/20 08:00 36.5 62 20 145/71 (95) 99 Room Air 12/10/20 07:36 Room Air 12/10/20 07:00 70 12/10/20 04:33 36.8 57 17 132/63 (86) 92 Room Air 12/10/20 03:00 98 Room Air 12/10/20 01:00 60 12/10/20 00:00 36.6 60 17 117/48 (71) 92 Room Air 12/10/20 00:00 36.6 60 18 117/48 93 Room Air 12/09/20 22:45 98 Room Air 12/09/20 22:04 36.2 62 20 156/68 94 Room Air 12/09/20 21:44 36.8 64 20 152/66 93 Room Air 12/09/20 20:00 36.4 69 22 130/62 (84) 93 Room Air 12/09/20 19:36 98 Room Air 12/09/20 19:00 67 I & O 12/10/20 07:00 Intake Total 1100 ml Output Total 400 ml Balance 700 ml Capillary Refill : Less Than 3 Seconds General Appearance: Mild Distress Respiratory: Lungs Clear Gastrointestinal: normal bowel sounds, non tender, soft Extremity: Non Tender, No Calf Tenderness, No Pedal Edema Neurologic/Psychiatric: Alert, Oriented x3, Other (anxious) Skin: Pallor Results Lab Laboratory Tests 12/10/20 05:59: White Blood Count 7.9, Red Blood Count 3.06L, Hemoglobin 8.9#L, Hematocrit 28L, Mean Corpuscular Volume 90, Mean Corpuscular Hemoglobin 29, Mean Corpuscular He moglobin Concent 32, Red Cell Distribution Width 16.3H, Platelet Count 308, Mean Platelet Volume 9.4, Immature Granulocyte % (Auto) 0, Neutrophils (%) (Auto) 78H , Lymphocytes (%) (Auto) 10L, Monocytes (%) (Auto) 7, Eosinophils (%) (Auto) 4, Basophils (%) (Auto) 1, Neutrophils # (Auto) 6.2, Lymphocytes # (Auto) 0.8L, Monocytes # (Auto) 0.5, Eosinophils # (Auto) 0.3, Basophils # (Auto) 0.1, Immature Granulocyte # (Auto) 0.0, Sodium Level 130L, Potassium Level 4.1, Chloride Level 101, Carbon Dioxide Level 18L, Anion Gap 11, Blood Urea Nitrogen 11, Creatinine 0.73, Estimat Glomerular Filtration Rate 77, BUN/Creatinine Ratio 15, Glucose Level 97, Calcium Level 8.8, Triglycerides Level 79, Cholesterol Level 128, LDL Cholesterol Direct 32, VLDL Cholesterol 16, HDL Cholesterol 71H 12/10/20 10:40: SARS-CoV-2 RNA (RT-PCR) Not Detected 12/10/20 13:13: Lab Scanned Report Transfusion Reaction Form Assessment/Plan Assessment/Plan Assess & Plan/Chief Complaint 1. Severe Anemia due to Acute Upper GI Hemorrhage--S/P transfusion--hemoglobin up to 8.9, EGD today, continue IV protonix and sucralfate 2. CAD with recent stent placement and need for further intervention--patient high risk being off plavix and aspirin for coronary event but due to GI Bleed will get EGD done today and resume plavix tomorrow if H/H stable 3. COPD--stable 4. Right Lung Mass--being followed by pulmonology and has seen Dr. Rosario recently as well 5. Anxiety--start paxil, xanax prn Clinical Quality Measures Admission Status Admission Dx 1. Severe Anemia due to Acute Upper GI Hemorrhage--transfuse to get H/H above 8--cardiology wanting up to closer to 10 2. Melena--start IV protonix and sucralfate, EGD by surgery, had normal colonoscopy at beginning of 2020 3. CAD with recent stent placement and need for further intervention--patient high risk being off plavix and aspirin for coronary event but due to GI Bleed will get EGD done and resume plavix YOUNG 4. COPD--stable 5. Right Lung Mass--being followed by pulmonology and has seen Dr. Rosario recently as well 6. Anxiety--xanax ROBSON Storm DO Dec 10, 2020 18:22
[2020-12-10 18:30] LABS: HEMOGLOBIN 9.3 g/dL (11.5-16.0)
[2020-12-10] MEDS: LIDOCAINE PATCH REMOVAL TP SCH (20:30)
--- NOTE | 2020-12-10 23:41 | Anesthesia-General Post-Op ---
MAC Patient Condition Mental Status/LOC: Same as Preop Cardiovascular: Satisfactory Nausea/Vomiting: Absent Respiratory: Satisfactory Pain: Controlled Complications: Absent Post Op Complications Complications None Follow Up Care/Instructions Patient Instructions None needed. Anesthesiology Discharge Order Discharge Order Patient is doing well, no complaints, stable vital signs, no apparent adverse anesthesia problems. No complications reported per nursing. MAIN TAN CRNA Dec 10, 2020 23:41
[2020-12-11 03:10] VITALS: BP 119/56
[2020-12-11 05:17] LABS: HEMATOCRIT 25 % (35-52); HEMOGLOBIN 8.1 g/dL (11.5-16.0); MEAN CORPUSCULAR HEMOGLOBIN 29 pg (25-34); MEAN CORPUSCULAR HGB CONC 32 g/dL (32-36); MEAN CORPUSCULAR VOLUME 88 fL (80-99); MEAN PLATELET VOLUME 9.3 fL (9.0-12.2); PLATELET COUNT 288 10^3/uL (130-400); WHITE BLOOD COUNT 8.5 10^3/uL (4.3-11.0)
[2020-12-11] MEDS: ALPRAZolam 0.25 MG (XANAX) TAB PO PRN ×2 (06:40→17:33)
[2020-12-11] MEDS: SUCRALFATE 1 GM (CARAFATE) TAB PO SCH ×4 (06:40→20:55)
[2020-12-11 08:14] VITALS: BP 122/60
[2020-12-11] MEDS: PARoxetine 10 MG (PAXIL) TAB PO SCH (08:22)
[2020-12-11] MEDS: CLOPIDOGREL 75 MG (PLAVIX) TABLET PO SCH (08:22)
[2020-12-11] MEDS: PANTOPRAZOLE 40 MG (PROTONIX) VIAL IV SCH ×2 (08:22→20:55)
[2020-12-11] MEDS: ASPIRIN E.C. 81 MG (ECOTRIN) TAB PO SCH (08:22)
[2020-12-11] MEDS: LIDOCAINE 4% (SALONPAS) PATCH TOP SCH (08:23)
[2020-12-11] MEDS ORDERED: IRON SUCROSE 200 MG/10 ML (VENOFER) VIAL IV ONE (10:45)
--- NOTE | 2020-12-11 10:55 | Progress Note ---
Subjective Date Seen by a Provider: Dec 11, 2020 Time Seen by a Provider: 10:30 Subjective/Events-last exam doing better. tolerating diet. chronic healed prepyloric ulcer on EGD. Objective Exam Vital Signs Date Time Temp Pulse Resp B/P (MAP) Pulse Ox O2 Delivery O2 Flow Rate FiO2 12/11/20 08:14 36.3 68 18 122/60 (80) 91 Room Air 12/11/20 08:00 Room Air 12/11/20 07:00 62 12/11/20 03:10 36.2 68 18 119/56 (77) 91 Room Air 12/11/20 01:00 70 12/10/20 23:30 36.8 82 16 107/44 (65) 90 Room Air 12/10/20 22:23 98 Room Air 12/10/20 20:39 36.7 82 18 146/61 (89) 92 Room Air 12/10/20 19:00 73 12/10/20 17:28 63 16 92 Room Air 12/10/20 17:23 59 16 93 Room Air 12/10/20 17:18 60 16 96 OxyMask 2 12/10/20 17:13 63 16 90 Room Air 12/10/20 17:08 55 16 99 OxyMask 5 12/10/20 17:03 57 16 99 OxyMask 10 12/10/20 16:00 36.5 67 18 168/70 (102) 93 Room Air 12/10/20 13:00 62 12/10/20 12:00 35.9 59 20 136/57 (83) 93 Room Air I & O 12/11/20 07:00 Intake Total 1100 ml Output Total 1000 ml Balance 100 ml Capillary Refill : Less Than 3 Seconds General Appearance: No Apparent Distress HEENT: PERRL/EOMI Neck: Full Range of Motion Respiratory: Chest Non Tender, Decreased Breath Sounds Cardiovascular: Regular Rate, Rhythm Gastrointestinal: normal bowel sounds, non tender, soft Extremity: Normal Capillary Refill Neurologic/Psychiatric: Alert, Oriented x3 Skin: Normal Color Lymphatic: No Adenopathy Results Lab Laboratory Tests 12/10/20 13:13: Lab Scanned Report Transfusion Reaction Form 12/10/20 18:20: Hemoglobin 9.3L, Hematocrit 28L 12/11/20 04:30: Hemoglobin 8.1L, Hematocrit 25L, White Blood Count 8.5, Red Blood Count 2.84L, Mean Corpuscular Volume 88, Mean Corpuscular Hemoglobin 29, Mean Corpuscular Hemoglobin Concent 32, Red Cell Distribution Width 16.3H, Platelet Count 288, Mean Platelet Volume 9.3 Microbiology 12/10/20 MRSA Screen - Final, Complete MRSA not isolated Assessment/Plan Assessment/Plan Assess & Plan/Chief Complaint upper GI bleed secondary to chronic ashu prepyloric ulcer. PUD diet. cont PPI. ok for asa and plavix. GODWIN CHASE MD Dec 11, 2020 10:55
--- NOTE | 2020-12-11 11:00 | Progress Note ---
Subjective Date Seen by a Provider: Dec 11, 2020 Time Seen by a Provider: 10:55 Subjective/Events-last exam Fwup acute Upper GI hemorrhage with severe anemia, CAD with recent stent placement, COPD, Anxiety, upper thoracic pain, Left lung mass. Feeling better. EGD showed healing pyloric ulcer. Objective Exam Vital Signs Date Time Temp Pulse Resp B/P (MAP) Pulse Ox O2 Delivery O2 Flow Rate FiO2 12/11/20 08:14 36.3 68 18 122/60 (80) 91 Room Air 12/11/20 08:00 Room Air 12/11/20 07:00 62 12/11/20 03:10 36.2 68 18 119/56 (77) 91 Room Air 12/11/20 01:00 70 12/10/20 23:30 36.8 82 16 107/44 (65) 90 Room Air 12/10/20 22:23 98 Room Air 12/10/20 20:39 36.7 82 18 146/61 (89) 92 Room Air 12/10/20 19:00 73 12/10/20 17:28 63 16 92 Room Air 12/10/20 17:23 59 16 93 Room Air 12/10/20 17:18 60 16 96 OxyMask 2 12/10/20 17:13 63 16 90 Room Air 12/10/20 17:08 55 16 99 OxyMask 5 12/10/20 17:03 57 16 99 OxyMask 10 12/10/20 16:00 36.5 67 18 168/70 (102) 93 Room Air 12/10/20 13:00 62 12/10/20 12:00 35.9 59 20 136/57 (83) 93 Room Air I & O 12/11/20 07:00 Intake Total 1100 ml Output Total 1000 ml Balance 100 ml Capillary Refill : Less Than 3 Seconds General Appearance: No Apparent Distress Neck: Supple Respiratory: Lungs Clear Cardiovascular: Regular Rate, Rhythm Gastrointestinal: normal bowel sounds, non tender, soft Neurologic/Psychiatric: Alert, Oriented x3 Results Lab Laboratory Tests 12/10/20 13:13: Lab Scanned Report Transfusion Reaction Form 12/10/20 18:20: Hemoglobin 9.3L, Hematocrit 28L 12/11/20 04:30: Hemoglobin 8.1L, Hematocrit 25L, White Blood Count 8.5, Red Blood Count 2.84L, Mean Corpuscular Volume 88, Mean Corpuscular Hemoglobin 29, Mean Corpuscular Hemoglobin Concent 32, Red Cell Distribution Width 16.3H, Platelet Count 288, Mean Platelet Volume 9.3 Microbiology 12/10/20 MRSA Screen - Final, Complete MRSA not isolated Assessment/Plan Assessment/Plan Assess & Plan/Chief Complaint 1. Severe Anemia due to Acute Upper GI Hemorrhage--S/P transfusion--hemoglobin down to 8.1 after restarting Plavix/aspirin, EGD showed healing pyloric ulcer, continue IV protonix and sucralfate, give IV iron, repeat H/H in AM 2. CAD with recent stent placement and need for further intervention--restarted plavix/aspirin and will monitor H/H as above 3. COPD--stable 4. Right Lung Mass--being followed by pulmonology and has seen Dr. Rosario recently as well 5. Anxiety--started paxil, using xanax prn, less anxious today Clinical Quality Measures Admission Status Admission Dx 1. Severe Anemia due to Acute Upper GI Hemorrhage--transfuse to get H/H above 8--cardiology wanting up to closer to 10 2. Melena--start IV protonix and sucralfate, EGD by surgery, had normal colonoscopy at beginning of 2020 3. CAD with recent stent placement and need for further intervention--patient high risk being off plavix and aspirin for coronary event but due to GI Bleed will get EGD done and resume plavix YOUNG 4. COPD--stable 5. Right Lung Mass--being followed by pulmonology and has seen Dr. Rosario recently as well 6. Anxiety--xanax prn ROBSON MO DO Dec 11, 2020 11:00
[2020-12-11 12:07] VITALS: BP 137/71
[2020-12-11 15:48] VITALS: BP 146/63
--- NOTE | 2020-12-11 17:31 | Progress Note - Cardiology ---
Cardiology SOAP Progress Note Subjective: Feels better today No cp or palp or syncope No shortness of breath at rest No n/v/d Gen weakness persistent Objective: I&O/Vital Signs 12/11/20 12/11/20 12/11/20 12/11/20 07:00 08:00 08:14 12:07 Temp 36.3 36.3 Pulse 62 68 63 Resp 18 20 B/P (MAP) 122/60 (80) 137/71 (93) Pulse Ox 91 96 O2 Delivery Room Air Room Air Room Air 12/11/20 12/11/20 12:48 15:48 Temp 36.6 Pulse 65 63 Resp 18 B/P (MAP) 146/63 (90) Pulse Ox 93 O2 Delivery Room Air 12/11/20 00:00 Intake Total 900 ml Output Total 850 ml Balance 50 ml Constitutional: AAO x 3, well-developed, well-nourished Respiratory: No accessory muscle use; other (fair, bilateral air entry; prolonged exp) Cardiovascular: regular rate-rhythm, S1 and S2, systolic murmur (soft JOEL at card base) Gastrointestional: No tender; soft; No guarding, No rebound; audible bowel sounds Extremities: No clubbing, No cyanosis, No significant edema Neurologic/Psychiatric: oriented x 3, other (moves all limbs equally) Skin: No rash on exposed areas, No ulcerations on exposed areas Results/Procedures: Labs Laboratory Tests 12/10/20 18:20: Hemoglobin 9.3L, Hematocrit 28L 12/11/20 04:30: Hemoglobin 8.1L, Hematocrit 25L, White Blood Count 8.5, Red Blood Count 2.84L, Mean Corpuscular Volume 88, Mean Corpuscular Hemoglobin 29, Mean Corpuscular Hemoglobin Concent 32, Red Cell Distribution Width 16.3H, Platelet Count 288, Mean Platelet Volume 9.3 Microbiology 12/10/20 MRSA Screen - Final, Complete MRSA not isolated A/P: Assessment: Severe anemia, due to GI bleed from PUD as documented on upper endoscopy by Dr Kaiser Coronary artery disease: - Cath of 10/13/20: tandem 99% stenoses in the mid left anterior descending, which were successfully treated with deployment of a Mary 2.5 x 28 mm stent. The left circumflex artery has mild plaques. Right coronary artery has 95% mid vessel stenosis (not intervented on, she has not agreed yet) . Normal left ventricular end diastolic pressure. Moderate impairment of global left ventricular systolic function with ejection fraction approximately 40%. Syncope of undetermined etiology on 09/25/20, none since cor intervention Hypertension, treated chronically with losartan Musculoskeletal w/u in the ER after syncope of 09/25/20 showed acute spinous precess fractures of C6 and C7 Underweight (BMI approx 15). Considerable, unintentional wgt loss since 2017, managed by her pcp Quit smoking in 2011 Mild, chronic, hyponatremia of undetermined etiology, managed by her pcp Hard of hearing Plan: * Complex management due to multiple comorbidities * We recommend blood transfusion to restore hemoglobin around 10 g/dL and investigation for and treatment of cause of anemia * She is on treatment for PUD/GERD and Med/Surg svces have placed her back on ASA and Plavix * Monitor labs TEMITOPE KUO MD FACP FAC CCDS Dec 11, 2020 17:31
[2020-12-11 19:24] VITALS: BP 131/63
[2020-12-11] MEDS: LIDOCAINE PATCH REMOVAL TP SCH (21:00)
[2020-12-12 00:01] VITALS: BP 122/52
[2020-12-12 04:18] VITALS: BP 151/64
[2020-12-12] MEDS: SUCRALFATE 1 GM (CARAFATE) TAB PO SCH ×2 (05:37→10:03)
[2020-12-12 06:09] LABS: HEMATOCRIT 25 % (35-52); MEAN CORPUSCULAR HEMOGLOBIN 29 pg (25-34); MEAN CORPUSCULAR HGB CONC 32 g/dL (32-36); MEAN CORPUSCULAR VOLUME 91 fL (80-99); MEAN PLATELET VOLUME 9.4 fL (9.0-12.2); PLATELET COUNT 278 10^3/uL (130-400); WHITE BLOOD COUNT 7.1 10^3/uL (4.3-11.0)
[2020-12-12 08:00] VITALS: BP_SYST 145; BP_SYST 163; BP_DIAS 70; BP_DIAS 77
[2020-12-12] MEDS: CLOPIDOGREL 75 MG (PLAVIX) TABLET PO SCH (10:03)
[2020-12-12] MEDS: ASPIRIN E.C. 81 MG (ECOTRIN) TAB PO SCH (10:03)
[2020-12-12] MEDS: PARoxetine 10 MG (PAXIL) TAB PO SCH (10:03)
[2020-12-12] MEDS: LIDOCAINE 4% (SALONPAS) PATCH TOP SCH (10:04)
[2020-12-12] MEDS: PANTOPRAZOLE 40 MG (PROTONIX) VIAL IV SCH (10:05)
--- NOTE | 2020-12-12 11:25 | Progress Note ---
Subjective Subjective Date Seen by Provider: Dec 12, 2020 Time Seen by Provider: 09:00 No overnight events- patient reports doing well. She would like to be discharged to home today- her bench scientist will be with her today and tomorrow and that will give her time to be monitored and make sure she does alright to start the week. Patient sat up in bed and raised her legs to demonstrate she is strong enough to get around. She notes the hospital bed is one of the most uncomfortable beds she has laid in and this reason alone is enough for her to go home. Review of Systems General: No Chills, No Night Sweats HEENT: No Head Aches Pulmonary: No Dyspnea, No Cough Cardiovascular: No: Chest Pain, Palpitations Gastrointestinal: No: Nausea, Vomiting Genitourinary: No Dysuria Neurological: Weakness Objective Exam Vital Signs Vital Signs Date Time Temp Pulse Resp B/P (MAP) Pulse Ox O2 Delivery O2 Flow Rate FiO2 12/12/20 08:00 36.7 62 20 145/70 (95) 95 Room Air 12/12/20 08:00 Room Air 12/12/20 07:00 66 12/12/20 04:18 36.7 64 16 151/64 (93) 95 Room Air 12/12/20 01:00 60 12/12/20 00:01 36.0 60 18 122/52 (75) 92 Room Air 12/11/20 21:00 Room Air 12/11/20 19:24 36.9 66 18 131/63 (85) 94 Room Air 12/11/20 19:00 60 12/11/20 15:48 36.6 63 18 146/63 (90) 93 Room Air 12/11/20 12:48 65 12/11/20 12:07 36.3 63 20 137/71 (93) 96 Room Air I & O 12/12/20 07:00 Intake Total 540 ml Output Total 1250 ml Balance -710 ml General Appearance: No Apparent Distress HEENT: PERRL/EOMI Neck: Supple Respiratory: Lungs Clear Cardiovascular: Regular Rate, Rhythm Gastrointestinal: Non Tender, Soft Rectal: Deferred Back: No Vertebral Tenderness, Other (No point tenderness or visible abnormality at the site of pain.) Extremity: Normal Capillary Refill Neurologic/Psychiatric: Alert, Oriented x3 Skin: Normal Color Lymphatic: No Adenopathy Results Lab Laboratory Tests 12/12/20 05:31: White Blood Count 7.1, Red Blood Count 2.77L, Hemoglobin 8.0L, Hematocrit 25L, Mean Corpuscular Volume 91, Mean Corpuscular Hemoglobin 29, Mean Corpuscular Hemoglobin Concent 32, Red Cell Distribution Width 16.3H, Platelet Count 278, Mean Platelet Volume 9.4 Microbiology 12/10/20 MRSA Screen - Final, Complete MRSA not isolated Assessment/Plan Assessment/Plan Assessment and Plan 1. Severe Anemia due to Acute Upper GI Hemorrhage--S/P 2 units pRBC transfusion--on Plavix/aspirin, EGD showed healing pyloric ulcer, continue protonix and sucralfate, give IV iron, Hgb 8. 2. CAD with recent stent placement and need for further intervention--restarted plavix/aspirin and will monitor H/H as above 3. COPD--stable 4. Right Lung Mass--being followed by pulmonology and has seen Dr. Rosario recently as well 5. Anxiety-- paxil, using xanax prn 6. chronic hyponatremia- at 130, likely malignancy related. Dispo: patient would like to home- I would discharge her to home if consults agree. Though hgb of 10 is our goal- she is currently at 8. POPEYE ERAZO MD Dec 12, 2020 11:25
[2020-12-12 12:12] VITALS: BP 139/67
[2020-12-12] MEDS: ALPRAZolam 0.25 MG (XANAX) TAB PO PRN (14:30)
[2020-12-12 15:52] VITALS: BP 157/62
--- NOTE | 2020-12-12 16:19 | Progress Note - Cardiology ---
Cardiology SOAP Progress Note Subjective: No cp or palp or syncope Malaise and weakness have improved. Wishes to go home Objective: I&O/Vital Signs 12/12/20 12/12/20 12/12/20 12/12/20 04:18 07:00 08:00 08:00 Temp 36.7 36.7 Pulse 64 66 62 Resp 16 20 B/P (MAP) 151/64 (93) 145/70 (95) Pulse Ox 95 95 O2 Delivery Room Air Room Air Room Air 12/12/20 12/12/20 12/12/20 12:12 13:00 15:52 Temp 36.8 35.6 Pulse 60 61 60 Resp 20 22 B/P (MAP) 139/67 (91) 157/62 (93) Pulse Ox 96 97 O2 Delivery Room Air Room Air 12/12/20 00:00 Intake Total 540 ml Output Total 850 ml Balance -310 ml Constitutional: AAO x 3, well-developed, well-nourished Respiratory: No accessory muscle use; other (fair, bilateral air entry; prolonged exp) Cardiovascular: regular rate-rhythm, S1 and S2, systolic murmur (soft JOEL at card base) Gastrointestional: No tender; soft; No guarding, No rebound; audible bowel sounds Extremities: No clubbing, No cyanosis, No significant edema Neurologic/Psychiatric: oriented x 3, other (moves all limbs equally) Skin: No rash on exposed areas, No ulcerations on exposed areas Results/Procedures: Labs Laboratory Tests 12/12/20 05:31: White Blood Count 7.1, Red Blood Count 2.77L, Hemoglobin 8.0L, Hematocrit 25L, Mean Corpuscular Volume 91, Mean Corpuscular Hemoglobin 29, Mean Corpuscular Hemoglobin Concent 32, Red Cell Distribution Width 16.3H, Platelet Count 278, Mean Platelet Volume 9.4 Microbiology 12/10/20 MRSA Screen - Final, Complete MRSA not isolated Laboratory Tests 12/10/20 18:20 12/11/20 04:30 12/12/20 05:31 A/P: Assessment: Severe anemia, due to GI bleed from PUD as documented on upper endoscopy by Dr Kaiser Coronary artery disease: - Cath of 10/13/20: tandem 99% stenoses in the mid left anterior descending, which were successfully treated with deployment of a Mary 2.5 x 28 mm stent. T he left circumflex artery has mild plaques. Right coronary artery has 95% mid vessel stenosis (not intervented on, she has not agreed yet) . Normal left ventricular end diastolic pressure. Moderate impairment of global left ventricular systolic function with ejection fraction approximately 40%. Syncope of undetermined etiology on 09/25/20, none since cor intervention Hypertension, treated chronically with losartan Musculoskeletal w/u in the ER after syncope of 09/25/20 showed acute spinous pre cess fractures of C6 and C7 Underweight (BMI approx 15). Considerable, unintentional wgt loss since 2018, managed by her pcp Quit smoking in 2011 Mild, chronic, hyponatremia of undetermined etiology, managed by her pcp Hard of hearing Plan: * Complex management due to multiple comorbidities * She is on treatment for PUD/GERD and Med/Surg svces have placed her back on A and Plavix * Ok to d/c from cardiac standpoint. Outpt f/u advised TEMITOPE KUO MD FACP FACC CCDS Dec 12, 2020 16:18
[2020-12-12] MEDS ORDERED: PANT40TA52 PO (16:23)
[2020-12-12] MEDS ORDERED: PARO10TA3 PO (16:23)
[2020-12-12] MEDS ORDERED: SUCR1TAB PO (16:23)
--- NOTE | 2020-12-12 16:32 | Discharge Summary ---
Discharge Summary Hospital Course Hospital Course Date of Admission: Dec 09, 2020 at 10:22 Admission Diagnosis : 1. Severe Anemia due to Acute Upper GI Hemorrhage-- 2. CAD 3. COPD--stable 4. Right Lung Mass- 5. Anxiety-- Family Physician/Provider: Ericka Mccormick DO Date of Discharge: 12/12/20 Discharge Diagnosis: 1. Severe Anemia due to Acute Upper GI Hemorrhage-- 2. CAD 3. COPD--stable 4. Right Lung Mass- 5. Anxiety-- 6. chronic hyponatremia- Hospital Course: This is an 80 year old female who underwent cardiac catheterization with stent placement by Dr. Daniel in September of 2020. She has been on plavix and aspirin since that intervention. She was supposed to undergo a repeat cardiac catheterization for a second intervention but she refused to do that stating she needed more time. She states she has not felt well since having the cardiac catheterization done in September. She presented to the emergency room due to fatigue and upper back pain. She did admit she has been having dark stools over the last few weeks. She was found to be severely anemic with a H/H of 5.4/18. She will be admitted for blood transfusion and further evaluation. She was found to have a peptic ulcer (healing) on EGD. Dr. Kaiser was consulted. She was started on sucralfate and PPI (pantoprazole). She was given 2 units of pRBC with improvement of hgb to 8. It has remained at 8 for 2 days. With her cardiac history we would like her hgb to be closer to 10. She continued to improve and did not have any more bleeding. Her plavix and aspirin were restarted. SSRI was started for her anxiety/mood- this may be discontinued at follow up visit. Labs and Pending Lab Test: Laboratory Tests 12/12/20 05:31: White Blood Count 7.1, Red Blood Count 2.77L, Hemoglobin 8.0L, Hematocrit 25L, Mean Corpuscular Volume 91, Mean Corpuscular Hemoglobin 29, Mean Corpuscular Hemoglobin Concent 32, Red Cell Distribution Width 16.3H, Platelet Count 278, Mean Platelet Volume 9.4 Microbiology 12/10/20 MRSA Screen - Final, Complete MRSA not isolated Home Meds Active Reported [Balance Of Nature] 1 Each PO DAILY Tylenol Extra Strength (Acetaminophen) 500 Mg Tablet 500 Mg PO Q8H PRN Clopidogrel (Clopidogrel Bisulfate) 75 Mg Tablet 75 Mg PO DAILY Atorvastatin Calcium 40 Mg Tablet 40 Mg PO 1200 W/MEAL Losartan Potassium 50 Mg Tablet 50 Mg PO 1800 W/MEAL Aspirin EC (Aspirin) 81 Mg Tablet.dr 81 Mg PO DAILY Assessment/Pt Instructions Follow up with Dr. Mccormick in 1-2 weeks Follow up with Dr. Kaiser in 1-2 weeks Follow up with Dr. Daniel in 1-2 weeks. Complete your pantoprazole for your peptic ulcer. Sucralfate will help with coating your stomach and improve pain. Return to ER if bleeding occurs via vomiting or in stools. Discharge Planning: >30 minutes discharge planning Discharge Instructions Discharge Diet: Other Diet (advance diet as tolerated.) Activity as Tolerated: Yes Discharge Physical Examination Vital Signs Vital Signs Date Time Temp Pulse Resp B/P (MAP) Pulse Ox O2 Delivery O2 Flow Rate FiO2 12/12/20 15:52 35.6 60 22 157/62 (93) 97 Room Air 12/10/20 17:18 2 General Appearance: No Apparent Distress HEENT: PERRL/EOMI Respiratory: Lungs Clear, Normal Breath Sounds Cardiovascular: Regular Rate, Rhythm Gastrointestinal: Non Tender, Soft Skin: Normal Color, Warm/Dry Neurologic/Psychiatric: Alert, Oriented x3 Allergies: Coded Allergies: Penicillins (Verified Allergy, Unknown, 05/08/20) hydrocodone (Verified Allergy, Unknown, 10/13/20) Discharge Summary Date of Admission Dec 09, 2020 at 10:22 Date of Discharge Dec 12 2020 POPEYE ERAZO MD Dec 12, 2020 16:31
== END 2020-12-12 16:51 | disposition home or self-care (01) | DRG 368 ==
LOC: EDUNIT# 08:21 → ER 08:23 → CSD 10:22 → 4TH 18:05
PROVIDERS: ADMIT Family Medicine; ATTEND Family Medicine
PROC: 0DB78ZX Excision of Stomach, Pylorus, Via Natural or Artificial Opening Endoscopic, Diagnostic (ICD-10-PCS; 2020-12-10)
PROC: 0DB48ZX Excision of Esophagogastric Junction, Via Natural or Artificial Opening Endoscopic, Diagnostic (ICD-10-PCS; principal; 2020-12-10 16:39)
DX: K21.01 Gastro-esophageal reflux disease with esophagitis, with bleeding (principal); K29.71 Gastritis, unspecified, with bleeding; E87.1 Hypo-osmolality and hyponatremia; M54.9 Dorsalgia, unspecified; Z20.822 Contact with and (suspected) exposure to COVID-19; Z86.711 Personal history of pulmonary embolism; Z95.5 Presence of coronary angioplasty implant and graft; I25.10 Atherosclerotic heart disease of native coronary artery without angina pectoris; Z87.891 Personal history of nicotine dependence; Z79.82 Long term (current) use of aspirin; Z79.899 Other long term (current) drug therapy; I50.9 Heart failure, unspecified; R91.8 Other nonspecific abnormal finding of lung field; J44.9 Chronic obstructive pulmonary disease, unspecified; F41.9 Anxiety disorder, unspecified; K44.9 Diaphragmatic hernia without obstruction or gangrene
CPT/HCPCS: 36415; 71045; 72070; 80048; 80053; 80061; 81000; 83735; 83874; 84484; 85014; 85018; 85025; 85027; 85610; 85730; 86850; 86900; 86901; 86920; 87081; 87636; 93005; 93041

== ENCOUNTER 2020-12-17 16:14 | Emergency (ER) | payer MEDICARE ==
[~2020-12-17] VITALS: Ht 162 cm; Wt 39.4 kg
[~2020-12-17 16:14] MED LIST changes: +ACET-2267 PO; +ASPI-1238 PO; +ATOR40TA70 PO; +BALANCE OF NATURE PO; +LOSA50TA63 PO; +PANT40TA52 PO; +PARO10TA3 PO; +SUCR1TAB PO
--- OUTSIDE RECORDS SUMMARY | 2020-12-17 16:19 | XMS REPORT | CCD ---
Author Author Erica Mccormick D.O. 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 Name Role Phone PP Unavailable CCM Unavailable Summary Purpose Interface Exchange Insurance Providers Payer name Policy type / Coverage type Covered alliance party ID Effective Begin Date Effective End Date WPS MEDICARE PART B [place] Medicare Part B [id number] Unknown Unknown [employer]UE [employer] [place] MEDICARE [place] Medicare Part B X [id number] Unknown Unknown Family History Family History data not found Social History Social History Element Codes Description Effective Dates Marital status Unknown 09/10/2019 Number of children Unknown 1 09/10/2019 Employment Unknown Retired 09/10/[address]: 9778406 Former smoker quit 201109/10/[address]: 603948 Currently drinks alcohol 09/09 Frequency of drinks SNOMED CT: 946545874 1-4 drinks per week Allergies, Adverse Reactions, Alerts Substance Reaction Codes Entered Date Inactivated Date Status PENICILLINS reaction, Unknown 09/10/2019 No Inactive Date Active * NO KNOWN FOOD ALLERGIES Unknown 09/10/2019 No Inactiv e Date Active NITROFURAN ANALOGUES reaction Unknown 09/10/2019 No Inactive Sivakumar e Active CODEINE reaction Unknown 09/10/2019 No Inactive Date Active * NO KNOWN ENVIRONMENTAL ALLERGIES Unknown 09/10/2019 N o Inactive Date Active _ Unknown 09/10/2019 No Inactive Date Active Problems Condition Codes Effective Dates Condition Status Coronary artery disease ICD-10: I25.10 ICD-9: 414.00 09/10/2019 Active Essential (primary) hypertension ICD-10: I10 ICD-9: 401.9 09/10/2019 Active Insomnia ICD-10: G47.00 ICD-9: 780.52 04/09/2020 Active Pulmonary nodule ICD-10: R91.1 ICD-9: 793.11 11/10/2020 Active Stress reaction ICD-10: F43.0 ICD-9: 308.9 11/10/2020 Active Mass of upper lobe of right lung ICD-10: R91.8 ICD-9: 786.6 07/29/2020 Active Fatigue ICD-10: R53.83 ICD-9: 780.79 11/22/2019 Active History of melanoma ICD-10: Z85.820 ICD-9: V10.82 07/20/2020 Active Lymphadenopathy of head and neck ICD-10: R59.1 ICD-9: 785.6 07/20/2020 Active Skin lesion ICD-10: L98.9 ICD-9: 709.9 07/20/2020 Active Weight loss, non-intentional ICD-10: R63.4 ICD-9: 783.21 07/20/2020 Active Urinary tract infection ICD-10: N39.0 ICD-9: 599.0 04/30/2020 Active Depressed mood with feeling of loneliness ICD-10: F32. 9 ICD-9: 311 04/09/2020 Active Dizziness ICD-10: R42 ICD-9: 780.4 04/09/2020 Active Type 2 diabetes mellitus with hyperglycemia ICD-10: E1 1.65 ICD-9: 250.02 04/09/2020 Active Encounter for general adult medical examination with a bnormal findings ICD-10: Z00.01 ICD-9: V70.0 09/30/2019 Active Hypertension Unknown 09/10/2019 Active Aortic valve stenosis with insufficiency ICD-10: I35.2 ICD-9: 424.1 09/10/2019 Active Medications Medication Codes Instructions Start Date Stop Date Status Fill Instructions paroxetine 20 mg tablet RxNorm: 3447911 1 Tablet(s) Oral QD 021 01/13/2021 Active paroxetine 20 mg tablet RxNorm: 8728163 1 Tablet(s) Oral QD 021 12/15/2020 Inactive MagOx 400 mg (241.3 mg magnesium) tablet RxNorm: 787921 Take 1 Tablet(s) Oral every night at bedtime with melatonin 11/23/2020 No Stop Date Active melatonin 3 mg tablet RxNorm: 584059 Take 1-2 Tablet(s) Oral every night at bedtime 11/18/2020 No Stop Date Active atorvastatin 40 mg tablet RxNorm: 199811 Take 1 Tablet( s) Oral every night at bedtime 11/10/2020 No Stop Date Active Plavix 75 mg tablet RxNorm: 732602 Take 1 Tablet(s) Oral QD No Stop Date Active trazodone 50 mg tablet RxNorm: 647311 Take 1-2 Tablet(s ) Oral QPM as needed for sleep 11/10/2020 11/22/2020 Inactive alprazolam 0.25 mg tablet RxNorm: 585341 1/2-1 Tablet(s ) Oral QPM as needed for sleep 08/03/2020 09/01/2020 Inactive alprazolam 0.25 mg tablet RxNorm: 107331 /2-1 Tablet(s ) Oral QPM as needed for sleep 08/03/2020 08/02/2020 Inactive Aspirin Low Dose 81 mg tablet,delayed release RxNorm: 795967 1 Tablet(s) Oral QD 09/10/2019 No Stop Date Active losartan 25 mg tablet RxNorm: 456924 1 Tablet(s) Oral QD 09/10/2019 No Stop Date Active carvedilol 6.25 mg tablet RxNorm: 991645 1 Tablet(s) Oral two t imes a day 09/10/2019 11/09/2020 Inactive Fish Oil 1,000 mg (120 mg-180 mg) capsule RxNorm: 1 Caps ule(s) Oral QD 09/10/2019 11/25/2019 Inactive Medication Administered No Medication Administered data Immunizations No Immunization data Results Observation Observation Code Item Item Code Result Date S ervice Location COMPREHENSIVE METABOLIC 82037 AST 16 U/L 2019 Unknown COMPREHENSIVE METABOLIC 97603 ALT 12 U/L 2019 Unknown COMPREHENSIVE METABOLIC 85357 BUN 13 mg/dL 2019 Unknown COMPREHENSIVE METABOLIC 01172 ALBUMIN 4.1 g/dL 2019 Unknown COMPREHENSIVE METABOLIC 06156 CHLORIDE 96 mmol/L 2019 Unknown COMPREHENSIVE METABOLIC 42781 Bili Total 1.1 mg/dL 04/09 Unknown COMPREHENSIVE METABOLIC 77885 ALK PHOS 80 U/L 2019 Unknown COMPREHENSIVE METABOLIC 85420 SODIUM 131 mmol/L 04/09 Unknown COMPREHENSIVE METABOLIC 21315 CREATININE 0.76 mg/dL 03/24 Unknown COMPREHENSIVE METABOLIC 21444 CALCIUM 9.0 mg/dL 2019 Unknown COMPREHENSIVE METABOLIC 93901 POTASSIUM 4.2 mmol/L 04/09 Unknown COMPREHENSIVE METABOLIC 42878 Total Protein 6.8 g/dL Unknown COMPREHENSIVE METABOLIC 55751 Glucose 101 mg/dL 2019 Unknown COMPREHENSIVE METABOLIC 26435 Bicarbonate 25 mmol/L 03/24 Unknown COMPREHENSIVE METABOLIC 01585 AGAP 10 mmol/L 2019 Unknown GFR CALC [id number] GFR Non Afr Amr >60 mL/min 04/09/2020 Un known GFR CALC 6506900 GFR Afr Amr >60 mL/min 04/09/2020 Unknow n GAMMA GLUTAMYL TRANSFERASE 39711 GGT 19 U/L Unknown COMPLETE BLOOD COUNT 3688190 WBC 6.3 10e9/L 04/07/20 20 Unknown COMPLETE BLOOD COUNT [id number] RBC 4.36 10e12/L 2019 Unknown COMPLETE BLOOD COUNT 5868176 HEMOGLOBIN 15.2 g/dL 04/07/20 20 Unknown COMPLETE BLOOD COUNT 0173552 HEMATOCRIT 43.8 % 04/07/20 20 Unknown COMPLETE BLOOD COUNT 1246987 MCV 100.5 fL 0 Unknown COMPLETE BLOOD COUNT [id number] MCH 34.9 pg 0 Unknown COMPLETE BLOOD COUNT 8793838 MCHC 34.7 g/dL 0 Unknown COMPLETE BLOOD COUNT 7593522 PLATELET COUNT 254 10e9/L Unknown COMPLETE BLOOD COUNT 9642501 Mean Plt Volume 9.9 fL Unknown COMPLETE BLOOD COUNT 0056629 Neut Auto 63.3 % 0 Unknown COMPLETE BLOOD COUNT 7909143 Lymph Auto 24.5 % 04/07/20 20 Unknown COMPLETE BLOOD COUNT 8777225 Graham Auto 8.4 % 0 Unknown COMPLETE BLOOD COUNT 1150328 RDW 12.8 % 0 Unknown COMPLETE BLOOD COUNT 0695303 Eos Auto 3.2 % 0 Unknown COMPLETE BLOOD COUNT 7343613 Baso Auto 0.6 % 0 Unknown COMPLETE BLOOD COUNT 9327827 Neutrophil Abs 3.99 10e9/L Unknown COMPLETE BLOOD COUNT 3436319 Lymphocyte Abs 1.54 10e9/L Unknown COMPLETE BLOOD COUNT [id number] Monocyte Abs 0.53 10e9/L 03/24 Unknown COMPLETE BLOOD COUNT [id number] Eosinophil Abs 0.20 10e9/L Unknown COMPLETE BLOOD COUNT [id number] Basophil Abs 0.04 10e9/L 03/24 Unknown COMPLETE BLOOD COUNT 6384800 RDW-SD 47.6 fL 0 Unknown VITAMIN B 12 39943 VITAMIN B12 661 pg/mL 04/07/2020 Unkn own LIPID GROUP 48861 Cholesterol 168 mg/dL 09/30/2019 Unkno wn LIPID GROUP 74695 Triglyceride 141 mg/dL 09/30/2019 Unkn own LIPID GROUP 24742 HDL CHOLESTEROL 66 mg/dL 09/30/2019 U nknown LIPID GROUP 28733 Chol/HDL Ratio 2.55 ratio 09/30/2019 U nknown LIPID GROUP 02002 NON-HDL Chol 102 mg/dL 09/30/2019 Unkn own LIPID GROUP 44793 LDL Cholesterol 74 mg/dL 09/30/2019 U nknown FREE T4 62149 T4 Free 0.76 ng/dL 09/30/2019 Unknown THYROID STIMULATING HORMONE 19187 TSH 2.186 uIU/mL 09/30/2019 Unknown GFR CALC 9394923 GFR Non Afr Amr >60 mL/min 09/30/2019 Un known GFR CALC 8402774 GFR Afr Amr >60 mL/min 09/30/2019 Unknow n COMPREHENSIVE METABOLIC 34874 AST 14 U/L 2019 Unknown COMPREHENSIVE METABOLIC 09897 ALT 11 U/L 2019 Unknown COMPREHENSIVE METABOLIC 58304 BUN 15 mg/dL 2019 Unknown COMPREHENSIVE METABOLIC 68895 ALBUMIN 4.0 g/dL 2019 Unknown COMPREHENSIVE METABOLIC 64014 CHLORIDE 96 mmol/L 2019 Unknown COMPREHENSIVE METABOLIC 39520 Bili Total 0.9 mg/dL 09/29 Unknown COMPREHENSIVE METABOLIC 20967 ALK PHOS 72 U/L 2019 Unknown COMPREHENSIVE METABOLIC 70021 SODIUM 132 mmol/L 09/29 Unknown COMPREHENSIVE METABOLIC 79307 CREATININE 0.73 mg/dL 11/2019 Unknown COMPREHENSIVE METABOLIC 93603 CALCIUM 9.1 mg/dL 2019 Unknown COMPREHENSIVE METABOLIC 27583 POTASSIUM 4.6 mmol/L 09/29 Unknown COMPREHENSIVE METABOLIC 99874 Total Protein 6.4 g/dL Unknown COMPREHENSIVE METABOLIC 18247 Glucose 97 mg/dL 2019 Unknown COMPREHENSIVE METABOLIC 71803 Bicarbonate 25 mmol/L 11/2019 Unknown COMPREHENSIVE METABOLIC 21841 AGAP 11 mmol/L 2019 Unknown COMPLETE BLOOD COUNT 0961789 WBC 5.3 10e9/L 09/30/19 20 Unknown COMPLETE BLOOD COUNT 5138892 RBC 4.16 10e12/L 2019 Unknown COMPLETE BLOOD COUNT [id number] HEMOGLOBIN 14.1 g/dL 09/30/19 20 Unknown COMPLETE BLOOD COUNT 2917672 HEMATOCRIT 42.6 % 09/30/19 20 Unknown COMPLETE BLOOD COUNT 7105269 MCV 102.4 fL 0 Unknown COMPLETE BLOOD COUNT 5837598 MCH 33.9 pg 0 Unknown COMPLETE BLOOD COUNT 9235737 MCHC 33.1 g/dL 0 Unknown COMPLETE BLOOD COUNT 5757161 PLATELET COUNT 273 10e9/L 11/2019 Unknown COMPLETE BLOOD COUNT 7453678 Mean Plt Volume 9.4 fL 11/2019 Unknown COMPLETE BLOOD COUNT 8974956 Neut Auto 57.3 % 0 Unknown COMPLETE BLOOD COUNT 4098986 Lymph Auto 29.3 % 09/30/19 20 Unknown COMPLETE BLOOD COUNT [id number] Graham Auto 7.6 % 0 Unknown COMPLETE BLOOD COUNT 2705303 Eos Auto 4.5 % 0 Unknown COMPLETE BLOOD COUNT 5654173 RDW 13.8 % 0 Unknown COMPLETE BLOOD COUNT 6081664 Baso Auto 1.3 % 0 Unknown COMPLETE BLOOD COUNT [id number] Neutrophil Abs 3.04 10e9/L Unknown COMPLETE BLOOD COUNT 0726740 Lymphocyte Abs 1.55 10e9/L Unknown COMPLETE BLOOD COUNT 9713913 Monocyte Abs 0.40 10e9/L 11/2019 Unknown COMPLETE BLOOD COUNT 6563884 Eosinophil Abs 0.24 10e9/L Unknown COMPLETE BLOOD COUNT 5357853 RDW-SD 50.7 fL 0 Unknown COMPLETE BLOOD COUNT [id number] Basophil Abs 0.07 10e9/L 11/2019 Unknown Procedures Procedure Codes Date ROUTINE VENIPUNCTURE CPT-4: 20599 07/20/2020 COMPREHEN METABOLIC PANEL CPT-4: 16035 07/20/2020 ASSAY OF FREE THYROXINE CPT-4: 26182 07/20/2020 ASSAY THYROID STIM HORMONE CPT-4: 07569 07/20/2020 COMPLETE CBC W/AUTO DIFF WBC CPT-4: 69919 07/20/2020 RBC SED RATE AUTOMATED CPT-4: 08562 07/20/2020 URINALYSIS NONAUTO W/O SCOPE CPT-4: 36468 04/30/2020 URINE CULTURE/ COLONY COUNT CPT-4: 60066 04/30/2020 ROUTINE VENIPUNCTURE CPT-4: 72581 04/07/2020 COMPLETE CBC W/AUTO DIFF WBC CPT-4: 90800 04/07/2020 VITAMIN B-12 CPT-4: 26243 04/07/2020 ASSAY OF GGT CPT-4: 56184 04/07/2020 ROUTINE VENIPUNCTURE CPT-4: 95213 09/30/2019 ASSAY OF FREE THYROXINE CPT-4: 46812 09/30/2019 ASSAY THYROID STIM HORMONE CPT-4: 27883 09/30/2019 COMPREHEN METABOLIC PANEL CPT-4: 61032 09/30/2019 COMPLETE CBC W/AUTO DIFF WBC CPT-4: 48460 09/30/2019 LIPID PANEL CPT-4: 83697 09/30/2019 Vital Signs Date Vital 11/10/2020 Blood Pressure 1: 130/74 Code: 8480-6 Heart Rate 1: 56 bpm Respiratory Rate: 20 bpm SpO2: 98% Temperature: 36.3 (C) / 97.4 (F) We ight: 85 lbs Code: 42718-2 07/29/2020 Blood Pressure 1: 121/65 Code: 8480-6 BMI: 14.3 Code: 16775-1 Heart Rate 1: 58 bpm Height: 5'5" Code: 8302-2 Respiratory Rate: 15 bpm SpO2: 98% Temperature: 36.9 (C) / 98.4 (F) Weight: 86 lbs Code: 34695-3 07/20/2020 Blood Pressure 1: 123/69 Code: 8480-6 Heart Rate 1: 68 bpm Respiratory Rate: 15 bpm SpO2: 99% Temperature: 36.6 (C) / 97.8 (F) We ight: 83 lbs Code: 98181-4 04/30/2020 Blood Pressure 1: 128/82 Code: 8480-6 Heart Rate 1: 68 bpm Respiratory Rate: 20 bpm SpO2: 95% Temperature: 36.5 (C) / 97.7 (F) We ight: 91 lbs Code: 58632-3 04/09/2020 Blood Pressure 1: 130/78 Code: 8480-6 Heart Rate 1: 68 bpm Respiratory Rate: 20 bpm SpO2: 99% Temperature: 36.3 (C) / 97.4 (F) We ight: 90 lbs Code: 94621-1 11/22/2019 Temperature: 36.3 (C) / 97.3 (F) 09/10/2019 Blood Pressure 1: 128/72 Code: 8480-6 BMI: 15.6 Code: 30837-0 Heart Rate 1: 68 bpm Height: 5'5" Code: 8302-2 Respiratory Rate: 20 bpm SpO2: 97% Temperature: 36.6 (C) / 97.9 (F) Weight: 94 lbs Code: 32303-2 Functional Status No Functional Status data Reason For Visit Reason For Visit Effective Dates Notes insomnia 11/10/[address] had stent [address] acement done September [address] Daniel follow up 07/29/2020 Patient is here toda y to discuss results of CT. 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 Removed 10 years ago, site has been festered up for the last 6 months frequent urination 04/30/2020 follow up 04/09/2020 Discuss labs---amilcar nt has been holding iron and vitamin b12. She has started taking nature balance mutivitamins fatigue 11/22/2019 ~generic 09/10/2019 New Patient---julio russo visit Encounters Encounter Performer Location Codes Date () OFFICE/OUTPATIENT VISIT EST Diagnosis: Coronary artery disease[ICD10: I25.10] Diagnosis: Essential (primary) hypertension[ICD10: I10] Diagnosis: Stress reaction[ICD10: F43.0] Diagnosis: Insomnia[ICD10: G47.00] Diagnosis: Pulmonary nodule[ICD10: R91.1] Robson MCCORMICK [facility] CPT-4: 90885 11/10/2020 ([id number]) NO CHARGE Diagnosis: Mass of upper lobe of right lung[ICD10: R91.8] Robson MCCORMICK [facility] CPT-4: 80885 07/29/2020 ([id number]) OFFICE/OUTPATIENT VISIT EST Diagnosis: Fatigue[ICD10: R53.83] Diagnosis: Lymphadenopathy of head and neck[ICD10: R59.1] Diagnosis: Weight loss, non-intentional[ICD10: R63.4] Diagnosis: History of melanoma[ICD10: Z85.820] Diagnosis: Skin lesion[ICD10: L98.9] Sara NUNEZ [facility] CPT-4: 46385 07/20/2020 ([id number]) OFFICE/OUTPATIENT VISIT EST Diagnosis: Urinary tract infection[ICD10: N39.0] Meena MCCORMICK [facility] CPT-4: 96035 04/30/2020 ([id number]) OFFICE/OUTPATIENT VISIT EST Diagnosis: Dizziness[ICD10: R42] Diagnosis: Depressed mood with feeling of loneliness[ICD10: F32.9] Diagnosis: Insomnia[ICD10: G47.00] Robson CHANEL [facility] CPT-4: 01695 04/09/2020 ([id number]) NURSE/OUTPATIENT VISIT EST Diagnosis: Coronary artery disease[ICD10: I25.10] Diagnosis: Fatigue[ICD10: R53.83] Diagnosis: Essential (primary) hypertension[ICD10: I10] Robson Garcíacurtispromise MCCORMICK [facility] CPT-4: 06147 04/07/2020 ([id number]) OFFICE/OUTPATIENT VISIT EST Diagnosis: Fatigue[ICD10: R53.83] Meena Li [facility] CPT-4: 80850 11/22/2019 ([id number]) NURSE/OUTPATIENT VISIT EST Diagnosis: Essential (primary) hypertension[ICD10: I10] Diagnosis: Coronary artery disease[ICD10: I25.10] Diagnosis: Encounter for general adult medical examination with abnormal findings[ICD10: Z00.01] Robson Garcíadeysi ROBSON MCCORMICK [facility] CPT-4: 88026 09/30/2019 ([id number]) OFFICE/OUTPATIENT VISIT NEW Diagnosis: Essential (primary) hypertension[ICD10: I10] Diagnosis: Coronary artery disease[ICD10: I25.10] Diagnosis: Aortic valve stenosis with insufficiency[ICD10: I35.2] Robson MCCORMICK DO [facility] CPT-4: 94055 09/10/2019 Plan of Care Planned Activity Notes Codes Status Date Visit Diagnosis Plan: Insomnia Discussion: Trial of tr azadone--call in 1 week on how doing ICD-9 : 780.52 ICD-10 : G47.00 11/10/2020 Visit Diagnosis Plan: Coronary artery disease Discussi on: Had stent placed in September--on plavix, aspirin, lipitor Sees Cardiology on November 26--was told needs another stent placed ICD-9 : 414.00 ICD-10 : I25.10 11/10/2020 Visit Diagnosis Plan: Stress reaction Discussion: Stre ss Reducers ICD-9 : 308.9 ICD-10 : F43.0 11/10/2020 Appointment: Robson Mccormick WPtel: [address] [place], [place] [phone] FOLLOW UP 11/10/2020 Patient Education: trazodone- [employer] Coupon [phone] [email or web address] Completed 11/10/2020 Visit Diagnosis Plan: Mass of upper lobe of right lung Discussion: CT scan of lung results discussed with patient and told this looks like cancer Agrees to see pulmonology to see if will be amenable to bronchoscopy to get cells/washings ICD-9 : 786.6 ICD-10 : R91.8 07/29/2020 Appointment: Robson Mccormick WPtel: [facility] WORK IN 07/29/2020 Care Plan: Referral Order SNOMED-CT : 30 0899659 Pending 07/29/2020 Care Plan: CT SFT TSUE NCK W/O & W/DYE L OIMI : 16968-3 Pending 07/21/2020 Visit Diagnosis Plan: Fatigue Discussion: Labs done to day (CBC, CMP, TSH, sed rate) ICD-9 : 780.79 ICD-10 : R53.83 07/20/2020 Visit Diagnosis Plan: Lymphadenopathy of head and neck Discussion: Will order head neck CT with and wo contrast. ICD-9 : 785.6 ICD-10 : R59.1 07/20/2020 Visit Diagnosis Plan: Weight loss, non-intentional Dis cussion: Labs drawn today, will f/u after results ICD-9 : 783.21 ICD-10 : R63.4 07/20/2020 Visit Diagnosis Plan: Skin lesion Discussion: Patient states she'd like to contact the doctor who excised her melanoma, Dr. Medrano, in - before surgery referral. She will let us know who she'd like to see. ICD-9 : 709.9 ICD-10 : L98.9 07/20/2020 Appointment: Sara Aguila WPtel: [phone] [facility] ACUTE ILLNESS 07/20/2020 Patient Education: Patient Medication Summary Completed 07/20/2020 Visit Diagnosis Plan: Urinary tract infection Discussi on: will send urine for culture. patient stated she had antibiotics at home for uti so she would like to use those. instructed patient to call office with the mg, medication, and how many. push fluids and call office with any concerns. ICD-9 : 599.0 ICD-10 : N39.0 04/30/2020 Appointment: Meena Li [address] [employer], [place] [phone] ACUTE ILLNESS 04/30/2020 Appointment: Meena Li [address] [employer] [phone] 04/21/2020 1020---patient needed seen fo r appointment due to new urinary symptoms. She refused appt because wanted to just leave urine sample (km) CANCELED 04/21/2020 Visit Diagnosis Plan: Dizziness Discussion: Add CMP Pa tient never accomplished colonoscopy ICD-9 : 780.4 ICD-10 : R42 04/09/2020 Visit Diagnosis Plan: Depressed mood with feeling of l oneliness Discussion: Recommend low dose antidepressant for both stress/insomnia but patient defers ICD-9 : 311 ICD-10 : F32.9 04/09/2020 Appointment: Robson Mccormick WPtel: [address] [place] [address] FOLLOW UP 04/09/2020 Care Plan: COMPREH[place] : 48[address]-1 Pending 04/09/2020 Appointment: Robson Mccormick WPtel: [address] [place] [address] US LAB 04/07/2020 Visit Diagnosis Plan: Fatigue Discussion: no other sym ptoms other than fatigue for 4 weeks so will update labs. order sent to [facility] for blood work and ua with c&s. instructed to call office with new or worsening symptoms. ICD-9 : 780.79 ICD-10 : R53.83 11/22/2019 Appointment: Meena Li [address] [place], [place] [address] [address] TELEMEDICINE 11/22/2019 Appointment: Robson Mccormick WPtel: [address] [place] [address] US LAB 09/30/2019 Visit Diagnosis Plan: Coronary artery disease Discussi on: Sees Dr. Crowley every 6mos ICD-9 : 414.00 ICD-10 : I25.10 09/10/2019 Visit Diagnosis Plan: Aortic valve stenosis with insuf ficiency Discussion: Sees Dr. Crowley every 6mos Does labwork every 6mos so due end of September Patient states has a living will and is a DNR Discussion: Sees Dr. Crowley every 6mos Does labwork every 6mos so due end of September ICD-9 : 424.1 ICD-10 : I35.2 09/10/2019 Visit Diagnosis Plan: Essential (primary) hypertension Discussion: Stable Follow Up: 6 months ICD-9 : 401.9 ICD-10 : I10 09/10/2019 Appointment: Robson Mccormick WPtel: [address] [place], [place] [phone] NEW PATIENT 09/10/2019 Patient Education: carvedilol- [employer] Elvin [phone] [email or web address] Completed 09/10/2019 Appointment: Robson Mccormick WPtel: [phone] [facility] US RESCHEDULED 08/20/2019 Appointment: [facility] [phone] [facility] [facility] CANCELED 07/22/2019 Referral: Vikram Maguire WPtel: [phone] [facility] [address] [id number] [place] Referral Appointment Requested Instructions No Instructions Medical Equipment No Medical Equipment data Health Concerns Section Health Concerns data not found Goals Section Goals data not found Interventions Section Interventions data not found Health Status Evaluations/Outcomes Section Health Status Evaluations/Outcomes data not found Advance Directives No Advance Directive data
[2020-12-17 17:42] LABS: BASOPHILS # (AUTO) 0.1 10^3/uL (0.0-0.1); BASOPHILS % (AUTO) 1 % (0-10); EOSINOPHILS # (AUTO) 0.2 10^3/uL (0.0-0.3); EOSINOPHILS % (AUTO) 2 % (0-10); HEMATOCRIT 30 % (35-52); HEMOGLOBIN 9.4 g/dL (11.5-16.0); LYMPHOCYTES # (AUTO) 0.8 10^3/uL (1.0-4.0); LYMPHOCYTES % (AUTO) 7 % (12-44); MEAN CORPUSCULAR HEMOGLOBIN 29 pg (25-34); MEAN CORPUSCULAR HGB CONC 31 g/dL (32-36); MEAN CORPUSCULAR VOLUME 93 fL (80-99); MEAN PLATELET VOLUME 9.4 fL (9.0-12.2); MONOCYTES # (AUTO) 0.8 10^3/uL (0.0-1.0); MONOCYTES % (AUTO) 7 % (0-12); NEUTROPHILS # (AUTO) 8.9 10^3/uL (1.8-7.8); NEUTROPHILS % (AUTO) 82 % (42-75); PLATELET COUNT 230 10^3/uL (130-400); WHITE BLOOD COUNT 10.8 10^3/uL (4.3-11.0)
[2020-12-17 17:50] LABS: URIC ACID 2.6 MG/DL (2.6-7.2)
[2020-12-17 18:00] LABS: BAND NEUTROPHILS 0 %; BASOPHILS % (MANUAL) 0 %; EOSINOPHILS % (MANUAL) 3 %; LYMPHOCYTES % (MANUAL) 9 %; MONOCYTES % (MANUAL) 4 %; NEUTROPHILS % (MANUAL) 84 %
[2020-12-17 18:01] LABS: ANISOCYTOSIS MODERATE; HYPOCHROMASIA MODERATE; MICROCYTOSIS SLIGHT; POIKILOCYTOSIS SLIGHT; POLYCHROMASIA SLIGHT; ROULEAUX SLIGHT; SCHISTOCYTES SLIGHT; TARGET CELLS SLIGHT; TEAR DROP CELLS SLIGHT
--- NOTE | 2020-12-17 18:09 | ED General ---
General Chief Complaint: General Problems/Pain Stated Complaint: HEART STENT X 2 MO/DIZZY/RASH/HAND SWOLLEN Nursing Triage Note: PT AMB TO [facility] PT CO OF R THUMB AND WRIST PAIN, SWELLING STARTED YESTERDAY AND RASH TO BACK STARTED ON MONDAY Source of Information: Patient Exam Limitations: No Limitations History of Present Illness Date Seen by Provider: Dec 17, 2020 Time Seen by Provider: 17:00 Allergies and Home Medications Allergies Coded Allergies: Penicillins (Verified Allergy, Unknown, 05/08/20) hydrocodone (Verified Allergy, Unknown, 10/13/20) Home Medications Acetaminophen 500 Mg Tablet, 500 MG PO Q8H PRN for PAIN-MILD (1-4), (Reported) Aspirin 81 Mg Tablet.dr, 81 MG PO DAILY, (Reported) Atorvastatin Calcium 40 Mg Tablet, 40 MG PO 1200 W/MEAL, (Reported) Clopidogrel Bisulfate 75 Mg Tablet, 75 MG PO DAILY, (Reported) Losartan Potassium 50 Mg Tablet, 50 MG PO 1800 W/MEAL, (Reported) Pantoprazole Sodium 40 Mg Tablet.dr, 40 MG PO DAILY Prescribed by: POPEYE ERAZO on 12/12/201622 Paroxetine HCl 10 Mg Tablet, 10 MG PO DAILY Prescribed by: POPEYE ERAZO on 12/12/201622 Sucralfate 1 Gm Tablet, 1 GM PO ACHS Prescribed by: POPEYE ERAZO on 12/12/20 162 [Balance Of Nature] , 1 EACH PO DAILY, (Reported) Past Mjczpmf-Metoic-Zpsqoe Hx Patient Social History Tobacco Use?: No Smoking Status: Former Smoker Substance use?: No Alcohol Use?: No Pt feels they are or have been: No Immunizations Up To Date Tetanus Booster (TDap): Unknown First/Initial COVID19 Vaccinat: 07/19/18 Second COVID19 Vaccination Sivakumar: 07/19/18 Seasonal Allergies Seasonal Allergies: No Past Medical History Surgery/Hospitalization HX: appendectomy, tonsilectomy, hysterectomy, varicose vein stripping Surgeries: Yes (VARICOSE VEIN STRIPPING) Appendectomy, Coronary Stent, Hysterectomy, Tonsillectomy Respiratory: Yes (Pulmonary lesion) Currently Using CPAP: No Currently Using BIPAP: No Cardiac: Yes ("WEAK HEART MUSCLE") Coronary Artery Disease Neurological: No Female Reproductive Disorders: Denies 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 oz. kg; 15.00 BMI Method: Progress/Results/Core Measures Suspected Sepsis SIRS Temperature: Pulse: 68 Respiratory Rate: 18 Laboratory Tests 12/17/20 17:30: White Blood Count 10.8 Blood Pressure 153 /77 Mean: 102 Laboratory Tests 12/17/20 17:30: Platelet Count 230 Results/Orders Lab Results Laboratory Tests Test 12/17/20 17:30 Range/Units White Blood Count 10.8 4.3-11.0 10^3/uL Red Blood Count 3.24 L 3.80-5.11 10^6/uL Hemoglobin 9.4 L 11.5-16.0 g/dL Hematocrit 30 L 35-52 % Mean Corpuscular Volume 93 80-99 fL Mean Corpuscular Hemoglobin 29 25-34 pg Mean Corpuscular Hemoglobin Concent 31 L 32-36 g/dL Red Cell Distribution Width 17.2 H 10.0-14.5 % Platelet Count 230 130-400 10^3/uL Mean Platelet Volume 9.4 9.0-12.2 fL Immature Granulocyte % (Auto) 1 % Neutrophils (%) (Auto) 82 H 42-75 % Lymphocytes (%) (Auto) 7 L 12-44 % Monocytes (%) (Auto) 7 0-12 % Eosinophils (%) (Auto) 2 0-10 % Basophils (%) (Auto) 1 0-10 % Neutrophils # (Auto) 8.9 H 1.8-7.8 10^3/uL Lymphocytes # (Auto) 0.8 L 1.0-4.0 10^3/uL Monocytes # (Auto) 0.8 0.0-1.0 10^3/uL Eosinophils # (Auto) 0.2 0.0-0.3 10^3/uL Basophils # (Auto) 0.1 0.0-0.1 10^3/uL Immature Granulocyte # (Auto) 0.1 0.0-0.1 10^3/uL Neutrophils % (Manual) 84 % Lymphocytes % (Manual) 9 % Monocytes % (Manual) 4 % Eosinophils % (Manual) 3 % Basophils % (Manual) 0 % Band Neutrophils 0 % Polychromasia SLIGHT Hypochromasia MODERATE Poikilocytosis SLIGHT Anisocytosis MODERATE Microcytosis SLIGHT Macrocytosis MODERATE Target Cells SLIGHT Tear Drop Cells SLIGHT Rouleau SLIGHT Schistocytes SLIGHT Uric Acid 2.6 2.6-7.2 MG/DL C-Reactive Protein High Sensitivity 0.41 0.00-0.50 MG/DL My Orders Orders - RADHA SCOTT MD Cbc With Automated Diff (12/17/20 17:09) Hs C Reactive Protein (12/17/20 17:09) Uric Acid (12/17/20 17:09) Manual Differential (12/17/20 17:30) Ra Factor (Rheumatoid Factor) (12/17/20 18:09) Vital Signs/I&O 12/17/20 16:53 Temp 36.7 Pulse 68 Resp 18 B/P (MAP) 153/77 (102) Pulse Ox 98 Capillary Refill : Less Than 3 Seconds Blood Pressure Mean: 102 Departure Impression Primary Impression: Skin rash Additional Impression: Right wrist pain Disposition: 01 HOME, SELF-CARE Condition: Stable Departure-Patient Inst. Decision time for Depature: 18:10 Referrals: ROBSON MO DO (PCP/Family) Primary Care Physician Patient Instructions: Joint Pain Add. Discharge Instructions: The exact cause of the rash and the right wrist pain are uncertain. Rash may be related to mites. If it does not continue to improve, try the permethrin cream as prescribed. You may use Tylenol (acetaminophen) up to 650 mg every 6 hours as needed for pain. Gentle icing may also help. You may try the topical diclofenac as prescribed as well. If symptoms are worsening, call your doctor. If your doctor is not available, you may call the emergency room. Call with questions or concerns. Return to care if you have worsening symptoms. All discharge instructions reviewed with patient and/or family. Voiced understanding. Scripts Diclofenac Sodium (Arthritis Pain) 100 Gm Gel..gram. 2 GM TP QID PRN for PAIN-MODERATE (5-7), #1 EA Prov: RADHA SCOTT MD 12/17/20 Permethrin (Permethrin) 60 Gm Cream..g. 60 GM TP ONCE, #1 EA 1 Refill Apply head to toe and leave on overnight. Repeat in 1 week if needed. Prov: RADHA SCOTT MD 12/17/20 RADHA SCOTT MD Dec 17, 2020 18:09
[2020-12-17] MEDS ORDERED: PERM60CR4 TP (18:17)
[2020-12-17] MEDS ORDERED: DICL100G61 TP (18:17)
[2020-12-17 18:22] VITALS: BP 153/77
== END 2020-12-17 18:22 | disposition home or self-care (01) ==
LOC: EDUNIT# 16:14 → ER 16:16
DX: R21 Rash and other nonspecific skin eruption (principal); M25.531 Pain in right wrist; I25.10 Atherosclerotic heart disease of native coronary artery without angina pectoris; Z87.891 Personal history of nicotine dependence; Z79.82 Long term (current) use of aspirin; Z79.01 Long term (current) use of anticoagulants; Z79.899 Other long term (current) drug therapy
CPT/HCPCS: 36415; 84550; 85007; 85027; 86141; 86431; 99281

== ENCOUNTER 2021-02-15 10:17 | Outpatient (RCR) | payer MEDICARE ==
[~2021-02-15 10:17] MED LIST changes: +DICL100G61 TP; +PERM60CR4 TP
[2021-02-16] MEDS ORDERED: ASPI-1238 PO (09:46)
[2021-02-16] MEDS ORDERED: PANT20TA18 PO (09:46)
[2021-02-18] MEDS ORDERED: PANT40TA52 PO (10:44)
[2021-02-18] MEDS ORDERED: PARO10TA3 PO (10:44)
[2021-02-18] MEDS ORDERED: TRM50T PO (10:44)
[2021-02-23] MEDS ORDERED: ASPI-1238 PO (15:55)
[2021-02-23] MEDS ORDERED: BALANCE OF NATURE PO (15:55)
[2021-02-23] MEDS ORDERED: PANT20TA18 PO (15:55)
== END 2021-02-28 | disposition home or self-care (01) ==
LOC: ONC 10:17
PROVIDERS: ATTEND Radiology Radiation Oncology
DX: R91.1 Solitary pulmonary nodule (principal); J44.9 Chronic obstructive pulmonary disease, unspecified; I25.10 Atherosclerotic heart disease of native coronary artery without angina pectoris; Z87.891 Personal history of nicotine dependence; J43.9 Emphysema, unspecified; Z88.0 Allergy status to penicillin; Z88.2 Allergy status to sulfonamides; Z88.5 Allergy status to narcotic agent; Z79.82 Long term (current) use of aspirin; Z79.899 Other long term (current) drug therapy; Z79.02 Long term (current) use of antithrombotics/antiplatelets
CPT/HCPCS: 77334; 99204

== ENCOUNTER 2021-02-15 18:48 | Inpatient (IN) | payer MEDICARE ==
[~2021-02-15] VITALS: Ht 163 cm; Wt 39.0 kg
--- OUTSIDE RECORDS SUMMARY | 2021-02-15 18:53 | XMS REPORT | CCD ---
Author Author Erica Mccormick D.O. Organization [facility]BSON MCCORMICK DO [facility] Address [address] [place] [address] Phone Care Team Providers Care Production Potter Name Role Phone PP Unavailable CCM Unavailable Summary Purpose Interface Exchange Insurance Providers Payer name Policy type / Coverage type Covered alliance party ID Effective Begin Date Effective End Date WPS MEDICARE PART B [place] Medicare Part B [id number] Unknown Unknown [employer]UE [employer] [place] MEDIC[place] Medicare Part B X [id number] Unknown Unknown Family History Family History data not found Social History Social History Element Codes Description Effective Dates Marital status Unknown 09/10/2019 Number of children Unknown 1 09/10/2019 Employment Unknown Retired 09/10/[address]: 5709302 Former smoker quit 201109/10/[address]: 812010 Currently drinks alcohol 09/09 Frequency of drinks SNOMED CT: 408565573 1-4 drinks per week Allergies, Adverse Reactions, [...] N o Inactive Date Active _ Unknown 12/30/2020 No Inactive Date Active Problems Condition Codes Effective Dates Condition Status Urinary tract infection ICD-10: N39.0 ICD-9: 599.0 04/30/2020 Active Hematuria ICD-10: R31.9 ICD-9: 599.70 01/25/2021 Active Blood loss anemia ICD-10: D50.0 ICD-9: 280.0 12/30/2020 Active Coronary artery disease ICD-10: I25.10 ICD-9: 414.00 09/10/2019 Active Fatigue ICD-10: R53.83 ICD-9: 780.79 11/22/2019 Active Anxiety ICD-10: F41.9 ICD-9: 300.00 12/30/2020 Active Duodenal ulcer ICD-10: K26.9 ICD-9: 532.90 12/30/2020 Active GERD (gastroesophageal reflux disease) ICD-10: K21.9 ICD-9: 530.81 12/30/2020 Active Edema ICD-10: R60.9 ICD-9: 782.3 12/21/2020 Active Essential (primary) hypertension ICD-10: I10 ICD-9: 401.9 09/10/2019 Active Insomnia ICD-10: G47.00 ICD-9: 780.52 04/09/2020 Active Pulmonary nodule ICD-10: R91.1 ICD-9: 793.11 11/10/2020 Active Stress reaction ICD-10: F43.0 ICD-9: 308.9 11/10/2020 Active Mass of upper lobe of right lung ICD-10: R91.8 ICD-9: 786.6 07/29/2020 Active History of melanoma ICD-10: Z85.820 ICD-9: V10.82 07/20/2020 Active Lymphadenopathy of head and neck ICD-10: R59.1 ICD-9: 785.6 07/20/2020 Active Skin lesion ICD-10: L98.9 ICD-9: 709.9 07/20/2020 Active Weight loss, non-intentional ICD-10: R63.4 ICD-9: 783.21 07/20/2020 Active Depressed mood with feeling of loneliness [...] Start Date Stop Date Status Fill Instructions ferrous sulfate 325 mg (65 mg iron) tablet RxNorm: 660175 Take 1 Tablet(s) Oral QD 01/28/2021 No Stop Date Active paroxetine 20 mg tablet RxNorm: 9763106 1 Tablet(s) Oral QD 01/20/2021 Inactive pantoprazole 20 mg tablet,delayed release RxNorm: 603610 1 Tablet(s) Oral two times a day 12/22/2020 03/21/2021 Active pantoprazole 20 mg tablet,delayed release RxNorm: 689042 1 Tablet(s) Oral two times a day 12/22/2020 12/22/2020 Inactive paroxetine 20 mg tablet RxNorm: 1523719 1 Tablet(s) Oral QD 12/15/2020 Inactive paroxetine 20 mg tablet RxNorm: 5675376 1 Tablet(s) Oral QD 12/15/2020 Inactive MagOx 400 mg (241.3 mg magnesium) tablet RxNorm: 279786 Take 1 Tablet(s) Oral every night at bedtime with melatonin 11/23/2020 01/24/2021 Inactive melatonin 3 mg tablet RxNorm: 162154 Take 1-2 Tablet(s) Oral every night at bedtime 11/18/2020 No Stop Date Active atorvastatin 40 mg tablet RxNorm: 939988 Take 1 Tablet( s) Oral every night at bedtime 11/10/2020 No Stop Date Active Plavix 75 mg tablet RxNorm: 522923 Take 1 Tablet(s) Oral QD No Stop Date Active trazodone 50 mg tablet RxNorm: 127324 Take 1-2 Tablet(s ) Oral QPM as needed for sleep 11/10/2020 11/22/2020 Inactive alprazolam 0.25 mg tablet RxNorm: 501459 1/2-1 Tablet(s ) Oral QPM as needed for sleep 08/03/2020 09/01/2020 Inactive alprazolam 0.25 mg tablet RxNorm: 406159 1/2-1 Tablet(s ) Oral QPM as needed for sleep 08/03/2020 08/02/2020 Inactive Aspirin Low Dose 81 mg tablet,delayed release RxNorm: 736428 1 Tablet(s) Oral QD 09/10/2019 No Stop Date Active losartan 25 mg tablet RxNorm: 438181 1 Tablet(s) Oral QD 09/10/2019 No Stop Date Active carvedilol 6.25 mg tablet RxNorm: 331576 1 Tablet(s) Oral two t imes a day 09/10/2019 11/09/2020 Inactive Fish Oil 1,000 mg (120 mg-180 mg) capsule RxNorm: 1 Caps ule(s) Oral QD 09/10/2019 11/25/2019 Inactive Medication Administered No Medication Administered data Immunizations No Immunization data Results Observation Observation Code Item Item Code Result Date S ervice Location UA W/MICR 56565 UA Protein TNP:Specimen Integrity 01/27 Unknown UA W/MICR 32939 UA Hemoglobin TNP:Specimen Integrity Unknown UA W/MICR 35138 UA Glucose TNP:Specimen Integrity 01/27 Unknown UA W/MICR 31815 UA Ketones TNP:Specimen Integrity 01/27 Unknown UA W/MICR 76251 UA pH TNP:Specimen Integrity 2020 Unknown UA W/MICR 49598 U Spec Perry TNP:Specimen Integrity 1 Unknown UA W/MICR 96599 UA Bilirubin TNP:Specimen Integrity 09/2020 Unknown UA W/MICR 15905 UA Leuk Esteras TNP:Specimen Integrity 01/27/2021 Unknown UA W/MICR 59181 UA Nitrite TNP:Specimen Integrity 01/27 Unknown UA W/MICR 96660 UA WBC/hpf TNP:Specimen Integrity 01/27 Unknown UA W/MICR 99479 UA RBC hpf TNP:Specimen Integrity 01/27 Unknown COMPLETE BLOOD COUNT [id number] WBC 6.1 10e9/L 01/26/20 21 Unknown COMPLETE BLOOD COUNT [id number] RBC 3.34 10e12/L 2020 Unknown COMPLETE BLOOD COUNT [id number] HEMOGLOBIN 8.8 g/dL 01/26/20 21 Unknown COMPLETE BLOOD COUNT [id number] HEMATOCRIT 28.5 % 01/26/20 21 Unknown COMPLETE BLOOD COUNT [id number] MCV 85.3 fL Unknown COMPLETE BLOOD COUNT [id number] MCH 26.3 pg 10/04/202 1 Unknown COMPLETE BLOOD COUNT [id number] MCHC 30.9 g/dL 1 Unknown COMPLETE BLOOD COUNT [id number] PLATELET COUNT 268 10e9/L 07/2020 Unknown COMPLETE BLOOD COUNT [id number] Mean Plt Volume 8.7 fL 07/2020 Unknown COMPLETE BLOOD COUNT [id number] Neut Auto 67.7 % 1 Unknown COMPLETE BLOOD COUNT [id number] Lymph Auto 19.4 % 01/26/20 21 Unknown COMPLETE BLOOD COUNT [id number] Dale Auto 8.4 % 1 Unknown COMPLETE BLOOD COUNT [id number] RDW 16.7 % 1 Unknown COMPLETE BLOOD COUNT 2259527 Eos Auto 3.8 % 1 Unknown COMPLETE BLOOD COUNT 1064333 Baso Auto 0.7 % 1 Unknown COMPLETE BLOOD COUNT [id number] Neutrophil Abs 4.13 10e9/L Unknown COMPLETE BLOOD COUNT [id number] Lymphocyte Abs 1.18 10e9/L Unknown COMPLETE BLOOD COUNT [id number] Monocyte Abs 0.51 10e9/L 07/2020 Unknown COMPLETE BLOOD COUNT [id number] Eosinophil Abs 0.23 10e9/L Unknown COMPLETE BLOOD COUNT [id number] RDW-SD 50.9 fL 1 Unknown COMPLETE BLOOD COUNT [id number] Basophil Abs 0.04 10e9/L 07/2020 Unknown GFR CALC [id number] GFR Non Afr Amr >60 mL/min 01/25/2021 Un known GFR CALC [id number] GFR Afr Amr >60 mL/min 01/25/2021 Unknow n COMPREHENSIVE METABOLIC 36313 AST 17 U/L 2020 Unknown COMPREHENSIVE METABOLIC 40980 ALT 13 U/L 2020 Unknown COMPREHENSIVE METABOLIC 83383 BUN 14 mg/dL 2020 Unknown COMPREHENSIVE METABOLIC 89823 ALBUMIN 4.1 g/dL 2020 Unknown COMPREHENSIVE METABOLIC 08238 CHLORIDE 102 mmol/L 01/25 Unknown COMPREHENSIVE METABOLIC 57369 Bili Total 0.4 mg/dL 01/25 Unknown COMPREHENSIVE METABOLIC 44132 ALK PHOS 85 U/L 2020 Unknown COMPREHENSIVE METABOLIC 71246 SODIUM 134 mmol/L 01/25 Unknown COMPREHENSIVE METABOLIC 01352 CREATININE 0.71 mg/dL 07/2020 Unknown COMPREHENSIVE METABOLIC 03765 CALCIUM 9.3 mg/dL 2020 Unknown COMPREHENSIVE METABOLIC 85417 POTASSIUM 4.3 mmol/L 01/25 Unknown COMPREHENSIVE METABOLIC 05402 Total Protein 7.0 g/dL Unknown COMPREHENSIVE METABOLIC 57419 Glucose 111 mg/dL 2020 Unknown COMPREHENSIVE METABOLIC 29383 Bicarbonate 24 mmol/L 07/2020 Unknown COMPREHENSIVE METABOLIC 03235 AGAP 8 mmol/L 2020 Unknown COMPREHENSIVE METABOLIC 58190 AST 16 U/L 2019 Unknown COMPREHENSIVE METABOLIC 09261 ALT 12 U/L 2019 Unknown COMPREHENSIVE METABOLIC 14257 BUN 13 mg/dL 2019 Unknown COMPREHENSIVE METABOLIC 14567 ALBUMIN 4.1 g/dL 2019 Unknown COMPREHENSIVE METABOLIC 62004 CHLORIDE 96 mmol/L 2019 Unknown COMPREHENSIVE METABOLIC 94835 Bili Total 1.1 mg/dL 04/09 Unknown COMPREHENSIVE METABOLIC 71716 ALK PHOS 80 U/L 2019 Unknown COMPREHENSIVE METABOLIC 15840 SODIUM 131 mmol/L 04/09 Unknown COMPREHENSIVE METABOLIC 36377 CREATININE 0.76 mg/dL 03/24 Unknown COMPREHENSIVE METABOLIC 26825 CALCIUM 9.0 mg/dL 2019 Unknown COMPREHENSIVE METABOLIC 79472 POTASSIUM 4.2 mmol/L 04/09 Unknown COMPREHENSIVE METABOLIC 85140 Total Protein 6.8 g/dL Unknown COMPREHENSIVE METABOLIC 44495 Glucose 101 mg/dL 2019 Unknown COMPREHENSIVE METABOLIC 46168 Bicarbonate 25 mmol/L 03/24 Unknown COMPREHENSIVE METABOLIC 27429 AGAP 10 mmol/L 2019 Unknown GFR CALC [id number] GFR Non Afr Amr >60 mL/min 04/09/2020 Un known GFR CALC [id number] GFR Afr Amr >60 mL/min 04/09/2020 Unknow n GAMMA GLUTAMYL TRANSFERASE 80460 GGT 19 U/L Unknown COMPLETE BLOOD COUNT [id number] WBC 6.3 10e9/L 04/07/20 20 Unknown COMPLETE BLOOD COUNT [id number] RBC 4.36 10e12/L 2019 Unknown COMPLETE BLOOD COUNT 4471740 HEMOGLOBIN 15.2 g/dL 04/07/20 20 Unknown COMPLETE BLOOD COUNT 8784899 HEMATOCRIT 43.8 % 04/07/20 20 Unknown COMPLETE BLOOD COUNT 5898095 MCV 100.5 fL 0 Unknown COMPLETE BLOOD COUNT 3809282 MCH 34.9 pg 0 Unknown COMPLETE BLOOD COUNT 9953431 MCHC 34.7 g/dL 0 Unknown COMPLETE BLOOD COUNT 1102134 PLATELET COUNT 254 10e9/L Unknown COMPLETE BLOOD COUNT 4298959 Mean Plt Volume 9.9 fL Unknown COMPLETE BLOOD COUNT 1989876 Neut Auto 63.3 % 0 Unknown COMPLETE BLOOD COUNT [id number] Lymph Auto 24.5 % 04/07/20 20 Unknown COMPLETE BLOOD COUNT [id number] Dale Auto 8.4 % 0 Unknown COMPLETE BLOOD COUNT 6505628 RDW 12.8 % 0 Unknown COMPLETE BLOOD COUNT 3251856 Eos Auto 3.2 % 0 Unknown COMPLETE BLOOD COUNT 6026140 Baso Auto 0.6 % 0 Unknown COMPLETE BLOOD COUNT 7569707 Neutrophil Abs 3.99 10e9/L Unknown COMPLETE BLOOD COUNT 7952088 Lymphocyte Abs 1.54 10e9/L Unknown COMPLETE BLOOD COUNT 6053243 Monocyte Abs 0.53 10e9/L 03/24 Unknown COMPLETE BLOOD COUNT 5507029 Eosinophil Abs 0.20 10e9/L Unknown COMPLETE BLOOD COUNT 1291222 RDW-SD 47.6 fL 0 Unknown COMPLETE BLOOD COUNT 1896912 Basophil Abs 0.04 10e9/L 03/24 Unknown VITAMIN B 12 02209 VITAMIN B12 661 pg/mL 04/07/2020 Unkn own LIPID GROUP 70155 Cholesterol 168 mg/dL 09/30/2019 Unkno wn LIPID GROUP 34032 Triglyceride 141 mg/dL 09/30/2019 Unkn own LIP[facility] GROUP 41789 HDL CHOLESTEROL 66 mg/dL 09/30/2019 U nknown LIPID GROUP 61332 Chol/HDL Ratio 2.55 ratio 09/30/2019 U nknown LIPID GROUP 94305 NON-HDL Chol 102 mg/dL 09/30/2019 Unkn own LIPID GROUP 95398 LDL Cholesterol 74 mg/dL 09/30/2019 U nknown FREE T4 02020 T4 Free 0.76 ng/dL 09/30/2019 Unknown THYROID STIMULATING HORMONE 18963 TSH 2.186 uIU/mL 09/30/2019 Unknown GFR CALC 4373095 GFR Non Afr Amr >60 mL/min 09/30/2019 Un known GFR CALC 8751858 GFR Afr Amr >60 mL/min 09/30/2019 Unknow n COMPREHENSIVE METABOLIC 40582 AST 14 U/L 2019 Unknown COMPREHENSIVE METABOLIC 78797 ALT 11 U/L 2019 Unknown COMPREHENSIVE METABOLIC 26061 BUN 15 mg/dL 2019 Unknown COMPREHENSIVE METABOLIC 86163 ALBUMIN 4.0 g/dL 2019 Unknown COMPREHENSIVE METABOLIC 23503 CHLORIDE 96 mmol/L 2019 Unknown COMPREHENSIVE METABOLIC 89679 Bili Total 0.9 mg/dL 09/29 Unknown COMPREHENSIVE METABOLIC 26206 ALK PHOS 72 U/L 2019 Unknown COMPREHENSIVE METABOLIC 01882 SODIUM 132 mmol/L 09/29 Unknown COMPREHENSIVE METABOLIC 06716 CREATININE 0.73 mg/dL 11/2019 Unknown COMPREHENSIVE METABOLIC 11706 CALCIUM 9.1 mg/dL 2019 Unknown COMPREHENSIVE METABOLIC 68606 POTASSIUM 4.6 mmol/L 09/29 Unknown COMPREHENSIVE METABOLIC 80273 Total Protein 6.4 g/dL Unknown COMPREHENSIVE METABOLIC 97022 Glucose 97 mg/dL 2019 Unknown COMPREHENSIVE METABOLIC 37635 Bicarbonate 25 mmol/L 11/2019 Unknown COMPREHENSIVE METABOLIC 48517 AGAP 11 mmol/L 2019 Unknown COMPLETE BLOOD COUNT 3410952 WBC 5.3 10e9/L 09/30/19 20 Unknown COMPLETE BLOOD COUNT 1851496 RBC 4.16 10e12/L 2019 Unknown COMPLETE BLOOD COUNT 4668553 HEMOGLOBIN 14.1 g/dL 09/30/19 20 Unknown COMPLETE BLOOD COUNT 7584240 HEMATOCRIT 42.6 % 09/30/19 20 Unknown COMPLETE BLOOD COUNT 1622421 MCV 102.4 fL 0 Unknown COMPLETE BLOOD COUNT 6069464 MCH 33.9 pg 0 Unknown COMPLETE BLOOD COUNT 2634776 MCHC 33.1 g/dL 0 Unknown COMPLETE BLOOD COUNT 6768541 PLATELET COUNT 273 10e9/L 11/2019 Unknown COMPLETE BLOOD COUNT 5917939 Mean Plt Volume 9.4 fL 11/2019 Unknown COMPLETE BLOOD COUNT 6408623 Neut Auto 57.3 % 0 Unknown COMPLETE BLOOD COUNT 1325828 Lymph Auto 29.3 % 09/30/19 20 Unknown COMPLETE BLOOD COUNT 4088378 Dale Auto 7.6 % 0 Unknown COMPLETE BLOOD COUNT 9453439 RDW 13.8 % 0 Unknown COMPLETE BLOOD COUNT 7385987 Eos Auto 4.5 % 0 Unknown COMPLETE BLOOD COUNT 0513540 Baso Auto 1.3 % 0 Unknown COMPLETE BLOOD COUNT 4959959 Neutrophil Abs 3.04 10e9/L Unknown COMPLETE BLOOD COUNT 9285744 Lymphocyte Abs 1.55 10e9/L Unknown COMPLETE BLOOD COUNT 8582648 Monocyte Abs 0.40 10e9/L 11/2019 Unknown COMPLETE BLOOD COUNT 4493225 Eosinophil Abs 0.24 10e9/L Unknown COMPLETE BLOOD COUNT 5158574 RDW-SD 50.7 fL 0 Unknown COMPLETE BLOOD COUNT [id number] Basophil Abs 0.07 10e9/L 11/2019 Unknown Procedures Procedure Codes Date URINE CULTURE/ COLONY COUNT CPT-4: 70745 02/02/2021 ROUTINE VENIPUNCTURE CPT-4: 58026 01/25/2021 COMPREHEN METABOLIC PANEL CPT-4: 96261 01/25/2021 COMPLETE CBC W/AUTO DIFF WBC CPT-4: 22279 01/25/2021 URINE CULTURE/ COLONY COUNT CPT-4: 57229 01/25/2021 URINALYSIS NONAUTO W/O SCOPE CPT-4: 09135 01/25/2021 ROUTINE VENIPUNCTURE CPT-4: 66270 07/20/2020 COMPREHEN METABOLIC PANEL CPT-4: 54193 07/20/2020 ASSAY OF FREE THYROXINE CPT-4: 87941 07/20/2020 ASSAY THYROID STIM HORMONE CPT-4: 55265 07/20/2020 COMPLETE CBC W/AUTO DIFF WBC CPT-4: 97752 07/20/2020 RBC SED RATE AUTOMATED CPT-4: 22881 07/20/2020 URINALYSIS NONAUTO W/O SCOPE CPT-4: 79398 04/30/2020 URINE CULTURE/ COLONY COUNT CPT-4: 54415 04/30/2020 ROUTINE VENIPUNCTURE CPT-4: 99246 04/07/2020 COMPLETE CBC W/AUTO DIFF WBC CPT-4: 37401 04/07/2020 VITAMIN B-12 CPT-4: 30287 04/07/2020 ASSAY OF GGT CPT-4: 60137 04/07/2020 ROUTINE VENIPUNCTURE CPT-4: 33917 09/30/2019 ASSAY OF FREE THYROXINE CPT-4: 59403 09/30/2019 ASSAY THYROID STIM HORMONE CPT-4: 01821 09/30/2019 COMPREHEN METABOLIC PANEL CPT-4: 26312 09/30/2019 COMPLETE CBC W/AUTO DIFF WBC CPT-4: 94853 09/30/2019 LIPID PANEL CPT-4: 70193 09/30/2019 Vital Signs Date Vital 01/25/2021 Blood Pressure 1: 102/68 Code: 8480-6 Heart Rate 1: 76 bpm Respiratory Rate: 20 bpm SpO2: 100% Temperature: 36.9 (C) / 98.5 (F) We ight: 87 lbs Code: 14652-1 12/30/2020 Blood Pressure 1: 134/80 Code: 8480-6 BMI: 14.1 Code: 13352-2 Heart Rate 1: 72 bpm Height: 5'5" Code: 8302-2 Respiratory Rate: 18 bpm SpO2: 97% Temperature: 36.6 (C) / 97.8 (F) Weight: 85 lbs Code: 51868-8 11/10/2020 Blood Pressure 1: 130/74 Code: 8480-6 Heart Rate 1: 56 bpm Respiratory Rate: 20 bpm SpO2: 98% Temperature: 36.3 (C) / 97.4 (F) We ight: 85 lbs Code: 79118-2 07/29/2020 Blood Pressure 1: 121/65 Code: 8480-6 BMI: 14.3 Code: 46916-6 Heart Rate 1: 58 bpm Height: 5'5" Code: 8302-2 Respiratory Rate: 15 bpm SpO2: 98% Temperature: 36.9 (C) / 98.4 (F) Weight: 86 lbs Code: 08819-5 07/20/2020 Blood Pressure 1: 123/69 Code: 8480-6 Heart Rate 1: 68 bpm Respiratory Rate: 15 bpm SpO2: 99% Temperature: 36.6 (C) / 97.8 (F) We ight: 83 lbs Code: 41215-0 04/30/2020 Blood Pressure 1: 128/82 Code: 8480-6 Heart Rate 1: 68 bpm Respiratory Rate: 20 bpm SpO2: 95% Temperature: 36.5 (C) / 97.7 (F) We ight: 91 lbs Code: 43133-4 04/09/2020 Blood Pressure 1: 130/78 Code: 8480-6 Heart Rate 1: 68 bpm Respiratory Rate: 20 bpm SpO2: 99% Temperature: 36.3 (C) / 97.4 (F) We ight: 90 lbs Code: 80811-3 11/22/2019 Temperature: 36.3 (C) / 97.3 (F) 09/10/2019 Blood Pressure 1: 128/72 Code: 8480-6 BMI: 15.6 Code: 95626-7 Heart Rate 1: 68 bpm Height: 5'5" Code: 8302-2 Respiratory Rate: 20 bpm SpO2: 97% Temperature: 36.6 (C) / 97.9 (F) Weight: 94 lbs Code: 22703-2 Functional Status No Functional Status data Reason For Visit Reason For Visit Effective Dates Notes fatigue 01/25/2021 follow up 12/30/2020 Patient had bleeding ulcer insomnia 11/10/[address] acement [...] Encounters Encounter Performer Location Codes Date () NURSE/OUTPATIENT VISIT EST Diagnosis: Urinary tract infection[ICD10: N39.0] Robson MCCORMICK DO [facility] CPT-4: 43932 02/02/2021 ([id number]) OFFICE/OUTPATIENT VISIT EST Diagnosis: Fatigue[ICD10: R53.83] Diagnosis: Blood loss anemia[ICD10: D50.0] Diagnosis: Coronary artery disease[ICD10: I25.10] Diagnosis: Hematuria[ICD10: R31.9] Robson CHANEL [facility] CPT-4: 23841 01/25/2021 ([id number]) OFFICE/OUTPATIENT VISIT EST Diagnosis: GERD (gastroesophageal reflux disease)[ICD10: K21.9] Diagnosis: Duodenal ulcer[ICD10: K26.9] Diagnosis: Coronary artery disease[ICD10: I25.10] Diagnosis: Anxiety[ICD10: F41.9] Diagnosis: Blood loss anemia[ICD10: D50.0] Robson MCCORMICK [facility] CPT-4: 96211 12/30/2020 ([id number]) NURSE/OUTPATIENT VISIT EST Diagnosis: Edema[ICD10: R60.9] Robson MCCORMICK [facility] CPT-4: 99122 12/21/2020 ([id number]) OFFICE/OUTPATIENT VISIT EST Diagnosis: Coronary artery disease[ICD10: I25.10] Diagnosis: Essential (primary) hypertension[ICD10: I10] Diagnosis: Stress reaction[ICD10: F43.0] Diagnosis: Insomnia[ICD10: G47.00] Diagnosis: Pulmonary nodule[ICD10: R91.1] Robson MCCORMICK [facility] CPT-4: 57239 11/10/2020 ([id number]) NO CHARGE Diagnosis: Mass of upper lobe of right lung[ICD10: R91.8] Robson MCCORMICK [facility] CPT-4: 10350 07/29/2020 ([id number]) OFFICE/OUTPATIENT VISIT EST Diagnosis: Fatigue[ICD10: R53.83] Diagnosis: Lymphadenopathy of head and neck[ICD10: R59.1] Diagnosis: Weight loss, non-intentional[ICD10: R63.4] Diagnosis: History of melanoma[ICD10: Z85.820] Diagnosis: Skin lesion[ICD10: L98.9] Sara Aguila ROBSON NUNEZ [facility] CPT-4: 53176 07/20/2020 ([id number]) OFFICE/OUTPATIENT VISIT EST Diagnosis: Urinary tract infection[ICD10: N39.0] Meena MCCORMICK DO [facility] CPT-4: 03695 04/30/2020 ([id number]) OFFICE/OUTPATIENT VISIT EST Diagnosis: Dizziness[ICD10: R42] Diagnosis: Depressed mood with feeling of loneliness[ICD10: F32.9] Diagnosis: Insomnia[ICD10: G47.00] Robson CHANEL [facility] CPT-4: 09515 04/09/2020 ([id number]) NURSE/OUTPATIENT VISIT EST Diagnosis: Coronary artery disease[ICD10: I25.10] Diagnosis: Fatigue[ICD10: R53.83] Diagnosis: Essential (primary) hypertension[ICD10: I10] Robson MCCORMICK [facility] CPT-4: 11550 04/07/2020 ([id number]) OFFICE/OUTPATIENT VISIT EST Diagnosis: Fatigue[ICD10: R53.83] Meena Li [facility] CPT-4: 95870 11/22/2019 ([id number]) NURSE/OUTPATIENT VISIT EST Diagnosis: Essential (primary) hypertension[ICD10: I10] Diagnosis: Coronary artery disease[ICD10: I25.10] Diagnosis: Encounter for general adult medical examination with abnormal findings[ICD10: Z00.01] Robson MCCORMICK [facility] CPT-4: 40887 09/30/2019 ([id number]) OFFICE/OUTPATIENT VISIT NEW Diagnosis: Essential (primary) hypertension[ICD10: I10] Diagnosis: Coronary artery disease[ICD10: I25.10] Diagnosis: Aortic valve stenosis with insufficiency[ICD10: I35.2] Robson MCCORMICK [facility] CPT-4: 56525 09/10/2019 Plan of Care Planned Activity Notes Codes Status Date Care Plan: UA W/MICR ADD ON ORDER LOINC : 34528-1 Pending 01/26/2021 Visit Diagnosis Plan: Hematuria Discussion: Culture ur ine ICD-9 : 599.70 ICD-10 : R31.9 01/25/2021 Visit Diagnosis Plan: Blood loss anemia Discussion: Ch real CBC now ICD-9 : 280.0 ICD-10 : D50.0 01/25/2021 Appointment: Robson Mccormick WPtel: [address] [place], [place] [phone] ACUTE ILLNESS 01/25/2021 Appointment[facility]oSara lo[facility] [phone] [facility] [facility] 01/01/2021 Visit Diagnosis Plan: Anxiety Discussion: Seems calmer today ICD-9 : 300.00 ICD-10 : F41.9 12/30/2020 Visit Diagnosis Plan: Blood loss anemia Discussion: Up date CBC in 1month ICD-9 : 280.0 ICD-10 : D50.0 12/30/2020 Visit Diagnosis Plan: Coronary artery disease Discussi on: Has decided to wait on repeat cardiac cath and see cardiology in 2mos ICD-9 : 414.00 ICD-10 : I25.10 12/30/2020 Visit Diagnosis Plan: GERD (gastroesophageal reflux di sease) Discussion: Stable on pantoprazole ICD-9 : 530.81 ICD-10 : K21.9 12/30/2020 Appointment: Robson Mccormick WPtel: [address] [place], [place] [phone] FOLLOW UP 12/30/2020 Appointment: Robson Mccormick WPtel: [address] [place], [place] [phone] NURSE SERVICES 12/21/2020 Visit Diagnosis Plan: Insomnia Discussion: Trial of [...] 308.9 ICD-10 : F43.0 11/10/2020 [facility]ment[facility]orm[facility] [phone] [facility] [facility] 11/10/2020 Patient Education: [email or web address]- [email or web address] Coupon [id number] [email or web address] Completed 11/10/2020 Visit Diagnosis Plan: Mass of upper lobe of right lung Discussion: CT scan of lung results discussed with patient and told this looks like cancer Agrees to see pulmonology to see if will be amenable to bronchoscopy to get cells/washings ICD-9 : 786.6 ICD-10 : R91.8 07/29/2020 Appointment: [facility]ccormick [facility] [phone] [facility] [facility] IN 07/29/2020 Care Plan: Referral Order SNOMED-CT : [id number] Pending 07/29/2020 Care Plan: CT SFT TSUE NCK W/O & W/DYE L OINC : 11770-2 Pending 07/21/2020 Visit Diagnosis Plan: Fatigue Discussion: [...] 07/20/2020 Appointment: Sara Aguila WPtel: [phone] [facility] ACUTE ILLNESS 07/20/2020 Patient Education: Patient Medication [...] ICD-10 : N39.0 04/30/2020 Appointment: Meena Li [address] [place] [address] ACUTE ILLNESS 04/30/2020 Appointment: Meena Li [address] [place], [place] [id number] 04/21/2020 1020---patient needed seen fo r appointment [...] : F32.9 04/09/2020 Appointment: Robson Mccormick WPtel: [phone] [place] [phone] FOLLOW UP 04/09/2020 Care Plan: COMPREH[place] : [address]-8 Pending 04/09/2020 Appointment: Robson Mccormick WPtel: [phone] [facility] US LAB 04/07/2020 Visit Diagnosis Plan: Fatigue Discussion: no other sym ptoms other than fatigue for 4 weeks so will update labs. order sent to [facility] for blood work and ua with c&s. instructed to call office with new or worsening symptoms. ICD-9 : 780.79 ICD-10 : R53.83 11/22/2019 Appointment: Meena Li [address] [place], [place] [phone] TELEMEDICINE 11/22/2019 Appointment: Robson Mccormick WPtel: [address] [place], [place] [phone] US LAB 09/30/2019 Visit Diagnosis Plan: Coronary [...] : I10 09/10/2019 Appointment: Robson Mccormick WPtel: [address] [place], [place] [phone] NEW PATIENT 09/10/2019 Patient Education: [email or web address]- [email or web address] Coupon [id number] [email or web address] Completed 09/10/2019 Appointment: Robson Mccormick WPtel: [address] [place], [place] [phone] US RESCHEDULED 08/20/2019 Appointment: Robson Mccormick WPtel: [address] [place], [place] [phone] US CANCELED 07/22/2019 Referral: Vikram Maguire WPtel: [address] [facility] [address] [id number] [place] Referral Appointment Requested Instructions No Instructions Medical Equipment No Medical Equipment data Health Concerns Section Health Concerns data not found Goals Section Goals data not found Interventions Section Interventions data not found Health Status Evaluations/Outcomes Section Health Status Evaluations/Outcomes data not found Advance Directives No Advance Directive data
--- OUTSIDE RECORDS SUMMARY | 2021-02-15 18:53 | XMS REPORT | CCD ---
Author Author Erica Mccormick D.O. 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 Name Role Phone PP Unavailable CCM Unavailable Summary Purpose Interface Exchange Insurance Providers Payer name Policy type / Coverage type Covered alliance party ID Effective Begin Date Effective End Date WPS MEDICARE PART B [place] Medicare Part B [id number] Unknown Unknown BLUE [employer] [place] MEDIC[place] SU[place] Medicare Part B X [id number] Unknown Unknown Family History Family History data not found Social History Social History Element Codes Description Effective Dates Marital status Unknown 09/10/2019 Number of children Unknown 1 09/10/2019 Employment Unknown Retired 09/10/[address]: 6986345 Former smoker quit 201109/10/[address]: 675919 Currently drinks alcohol 09/09 Frequency of drinks SNOMED CT: 819484303 1-4 drinks per week Allergies, Adverse Reactions, [...] Problems Condition Codes Effective Dates Condition Status Blood loss anemia ICD-10: D50.0 ICD-9: 280.0 12/30/2020 Active Coronary artery disease ICD-10: I25.10 ICD-9: 414.00 09/10/2019 Active Fatigue ICD-10: R53.83 ICD-9: 780.79 11/22/2019 Active Hematuria ICD-10: R31.9 ICD-9: 599.70 01/25/2021 Active Anxiety ICD-10: F41.9 ICD-9: 300.00 12/30/2020 [...] Fill Instructions paroxetine 20 mg tablet RxNorm: 0434357 1 Tablet(s) Oral QD 01/20/2021 Inactive pantoprazole 20 mg tablet,delayed release RxNorm: 773757 1 Tablet(s) Oral two times a day 12/22/2020 03/21/2021 Active pantoprazole 20 mg tablet,delayed release RxNorm: 150861 1 Tablet(s) Oral two times a day 12/22/2020 12/22/2020 Inactive paroxetine 20 mg tablet RxNorm: 9142232 1 Tablet(s) Oral QD 021 12/15/2020 Inactive paroxetine 20 mg tablet RxNorm: 3811064 1 Tablet(s) Oral QD 021 12/15/2020 Inactive MagOx 400 mg (241.3 mg magnesium) tablet RxNorm: 603766 Take 1 Tablet(s) Oral every night at bedtime with melatonin 11/23/2020 01/24/2021 Inactive melatonin 3 mg tablet RxNorm: 616174 Take 1-2 Tablet(s) Oral every night at bedtime 11/18/2020 No Stop Date Active atorvastatin 40 mg tablet RxNorm: 542805 Take 1 Tablet( s) Oral every night at bedtime 11/10/2020 No Stop Date Active Plavix 75 mg tablet RxNorm: 535405 Take 1 Tablet(s) Oral QD No Stop Date Active trazodone 50 mg tablet RxNorm: 361349 Take 1-2 Tablet(s ) Oral QPM as needed for sleep 11/10/2020 11/22/2020 Inactive alprazolam 0.25 mg tablet RxNorm: 647847 1/2-1 Tablet(s ) Oral QPM as needed for sleep 08/03/2020 09/01/2020 Inactive alprazolam 0.25 mg tablet RxNorm: 150211 1/2-1 Tablet(s ) Oral QPM as needed for sleep 08/03/2020 08/02/2020 Inactive Aspirin Low Dose 81 mg tablet,delayed release RxNorm: 295262 1 Tablet(s) Oral QD 09/10/2019 No Stop Date Active losartan 25 mg tablet RxNorm: 397423 1 Tablet(s) Oral QD 09/10/2019 No Stop Date Active carvedilol 6.25 mg tablet RxNorm: 554209 1 Tablet(s) Oral two t imes a day 09/10/2019 11/09/2020 Inactive Fish Oil 1,000 mg (120 mg-180 mg) capsule RxNorm: 1 Caps ule(s) Oral QD 09/10/2019 11/25/2019 Inactive Medication Administered No Medication Administered data Immunizations No Immunization data Results Observation Observation Code Item Item Code Result Date S ervice Location COMPLETE BLOOD COUNT [id number] WBC 6.1 10e9/L 01/26/20 21 Unknown COMPLETE BLOOD COUNT [id number] RBC 3.34 10e12/L 2020 Unknown COMPLETE BLOOD COUNT [id number] HEMOGLOBIN 8.8 g/dL 01/26/20 21 Unknown COMPLETE BLOOD COUNT [id number] HEMATOCRIT 28.5 % 01/26/20 21 Unknown COMPLETE BLOOD COUNT [id number] MCV 85.3 fL 1 Unknown COMPLETE BLOOD COUNT [id number] MCH 26.3 pg 1 Unknown COMPLETE BLOOD COUNT 0832381 MCHC 30.9 g/dL 1 Unknown COMPLETE BLOOD COUNT [id number] PLATELET COUNT 268 10e9/L 07/2020 Unknown COMPLETE BLOOD COUNT [id number] Mean Plt Volume 8.7 fL 07/2020 Unknown COMPLETE BLOOD COUNT [id number] Neut Auto 67.7 % 1 Unknown COMPLETE BLOOD COUNT [id number] Lymph Auto 19.4 % 01/26/20 21 Unknown COMPLETE BLOOD COUNT [id number] Leslie Auto 8.4 % 1 Unknown COMPLETE BLOOD COUNT [id number] RDW 16.7 % 1 Unknown COMPLETE BLOOD COUNT 0088406 Eos Auto 3.8 % 1 Unknown COMPLETE BLOOD COUNT 0641961 Baso Auto 0.7 % 1 Unknown COMPLETE BLOOD COUNT [id number] Neutrophil Abs 4.13 10e9/L Unknown COMPLETE BLOOD COUNT [id number] Lymphocyte Abs 1.18 10e9/L Unknown COMPLETE BLOOD COUNT [id number] Monocyte Abs 0.51 10e9/L 07/2020 Unknown COMPLETE BLOOD COUNT [id number] Eosinophil Abs 0.23 10e9/L Unknown COMPLETE BLOOD COUNT [id number] RDW-SD 50.9 fL Unknown COMPLETE BLOOD COUNT [id number] Basophil Abs 0.04 10e9/L 07/2020 Unknown GFR CALC 8326055 GFR Non Afr Amr >60 mL/min 01/25/2021 Un known GFR CALC [id number] GFR Afr Amr >60 mL/min 01/25/2021 Unknow n COMPREHENSIVE METABOLIC 18373 AST 17 U/L 2020 Unknown COMPREHENSIVE METABOLIC 50870 ALT 13 U/L 2020 Unknown COMPREHENSIVE METABOLIC 43926 BUN 14 mg/dL 2020 Unknown COMPREHENSIVE METABOLIC 96849 ALBUMIN 4.1 g/dL 2020 Unknown COMPREHENSIVE METABOLIC 54270 CHLORIDE 102 mmol/L 01/25 Unknown COMPREHENSIVE METABOLIC 44264 Bili Total 0.4 mg/dL 01/25 Unknown COMPREHENSIVE METABOLIC 58818 ALK PHOS 85 U/L 2020 Unknown COMPREHENSIVE METABOLIC 63267 SODIUM 134 mmol/L 01/25 Unknown COMPREHENSIVE METABOLIC 53559 CREATININE 0.71 mg/dL 07/2020 Unknown COMPREHENSIVE METABOLIC 23316 CALCIUM 9.3 mg/dL 2020 Unknown COMPREHENSIVE METABOLIC 70403 POTASSIUM 4.3 mmol/L 01/25 Unknown COMPREHENSIVE METABOLIC 51911 Total Protein 7.0 g/dL Unknown COMPREHENSIVE METABOLIC 05907 Glucose 111 mg/dL 2020 Unknown COMPREHENSIVE METABOLIC 59318 Bicarbonate 24 mmol/L 07/2020 Unknown COMPREHENSIVE METABOLIC 20250 AGAP 8 mmol/L 2020 Unknown COMPREHENSIVE METABOLIC 81053 AST 16 U/L 2019 Unknown COMPREHENSIVE METABOLIC 61750 ALT 12 U/L 2019 Unknown COMPREHENSIVE METABOLIC 61193 BUN 13 mg/dL 2019 Unknown COMPREHENSIVE METABOLIC 21251 ALBUMIN 4.1 g/dL 2019 Unknown COMPREHENSIVE METABOLIC 72307 CHLORIDE 96 mmol/L 2019 Unknown COMPREHENSIVE METABOLIC 27256 Bili Total 1.1 mg/dL 04/09 Unknown COMPREHENSIVE METABOLIC 58618 ALK PHOS 80 U/L 2019 Unknown COMPREHENSIVE METABOLIC 22678 SODIUM 131 mmol/L 04/09 Unknown COMPREHENSIVE METABOLIC 88870 CREATININE 0.76 mg/dL 03/24 Unknown COMPREHENSIVE METABOLIC 23285 CALCIUM 9.0 mg/dL 2019 Unknown COMPREHENSIVE METABOLIC 45806 POTASSIUM 4.2 mmol/L 04/09 Unknown COMPREHENSIVE METABOLIC 78415 Total Protein 6.8 g/dL Unknown COMPREHENSIVE METABOLIC 20254 Glucose 101 mg/dL 2019 Unknown COMPREHENSIVE METABOLIC 23978 Bicarbonate 25 mmol/L 03/24 Unknown COMPREHENSIVE METABOLIC 69734 AGAP 10 mmol/L 2019 Unknown GFR CALC 4495594 GFR Non Afr Amr >60 mL/min 04/09/2020 Un known GFR CALC 3497196 GFR Afr Amr >60 mL/min 04/09/2020 Unknow n GAMMA GLUTAMYL TRANSFERASE 85248 GGT 19 U/L Unknown COMPLETE BLOOD COUNT [id number] WBC 6.3 10e9/L 04/07/20 20 Unknown COMPLETE BLOOD COUNT [id number] RBC 4.36 10e12/L 2019 Unknown COMPLETE BLOOD COUNT 4345733 HEMOGLOBIN 15.2 g/dL 04/07/20 20 Unknown COMPLETE BLOOD COUNT [id number] HEMATOCRIT 43.8 % 04/07/20 20 Unknown COMPLETE BLOOD COUNT 6127343 MCV 100.5 fL 0 Unknown COMPLETE BLOOD COUNT 8017586 MCH 34.9 pg 0 Unknown COMPLETE BLOOD COUNT 7465697 MCHC 34.7 g/dL 0 Unknown COMPLETE BLOOD COUNT 9461491 PLATELET COUNT 254 10e9/L Unknown COMPLETE BLOOD COUNT 8555293 Mean Plt Volume 9.9 fL Unknown COMPLETE BLOOD COUNT 3012715 Neut Auto 63.3 % 0 Unknown COMPLETE BLOOD COUNT 6658283 Lymph Auto 24.5 % 04/07/20 20 Unknown COMPLETE BLOOD COUNT 2322205 Leslie Auto 8.4 % 0 Unknown COMPLETE BLOOD COUNT 9204092 RDW 12.8 % 0 Unknown COMPLETE BLOOD COUNT 8404513 Eos Auto 3.2 % 0 Unknown COMPLETE BLOOD COUNT 8977109 Baso Auto 0.6 % 0 Unknown COMPLETE BLOOD COUNT 5385361 Neutrophil Abs 3.99 10e9/L Unknown COMPLETE BLOOD COUNT 3806808 Lymphocyte Abs 1.54 10e9/L Unknown COMPLETE BLOOD COUNT 4258400 Monocyte Abs 0.53 10e9/L 03/24 Unknown COMPLETE BLOOD COUNT 5614689 Eosinophil Abs 0.20 10e9/L Unknown COMPLETE BLOOD COUNT 1148432 RDW-SD 47.6 fL 0 Unknown COMPLETE BLOOD COUNT 6428557 Basophil Abs 0.04 10e9/L 03/24 Unknown VITAMIN B 12 23710 VITAMIN B12 661 pg/mL 04/07/2020 Unkn own LIPID GROUP 50498 Cholesterol 168 mg/dL 09/30/2019 Unkno wn LIPID GROUP 34417 Triglyceride 141 mg/dL 09/30/2019 Unkn own LIPID GROUP 77786 HDL CHOLESTEROL 66 mg/dL 09/30/2019 U nknown LIPID GROUP 67247 Chol/HDL Ratio 2.55 ratio 09/30/2019 U nknown LIPID GROUP 49344 NON-HDL Chol 102 mg/dL 09/30/2019 Unkn own LIPID GROUP 12125 LDL Cholesterol 74 mg/dL 09/30/2019 U nknown FREE T4 84479 T4 Free 0.76 ng/dL 09/30/2019 Unknown THYROID STIMULATING HORMONE 82947 TSH 2.186 uIU/mL 09/30/2019 Unknown GFR CALC 3988359 GFR Non Afr Amr >60 mL/min 09/30/2019 Un known GFR CALC 6891512 GFR Afr Amr >60 mL/min 09/30/2019 Unknow n COMPREHENSIVE METABOLIC 86587 AST 14 U/L 2019 Unknown COMPREHENSIVE METABOLIC 05213 ALT 11 U/L 2019 Unknown COMPREHENSIVE METABOLIC 67125 BUN 15 mg/dL 2019 Unknown COMPREHENSIVE METABOLIC 21418 ALBUMIN 4.0 g/dL 2019 Unknown COMPREHENSIVE METABOLIC 13420 CHLORIDE 96 mmol/L 2019 Unknown COMPREHENSIVE METABOLIC 25111 Bili Total 0.9 mg/dL 09/29 Unknown COMPREHENSIVE METABOLIC 00563 ALK PHOS 72 U/L 2019 Unknown COMPREHENSIVE METABOLIC 50030 SODIUM 132 mmol/L 09/29 Unknown COMPREHENSIVE METABOLIC 13012 CREATININE 0.73 mg/dL 11/2019 Unknown COMPREHENSIVE METABOLIC 12801 CALCIUM 9.1 mg/dL 2019 Unknown COMPREHENSIVE METABOLIC 49231 POTASSIUM 4.6 mmol/L 09/29 Unknown COMPREHENSIVE METABOLIC 05468 Total Protein 6.4 g/dL Unknown COMPREHENSIVE METABOLIC 17346 Glucose 97 mg/dL 2019 Unknown COMPREHENSIVE METABOLIC 93996 Bicarbonate 25 mmol/L 11/2019 Unknown COMPREHENSIVE METABOLIC 90764 AGAP 11 mmol/L 2019 Unknown COMPLETE BLOOD COUNT 4731215 WBC 5.3 10e9/L 09/30/19 20 Unknown COMPLETE BLOOD COUNT 5437506 RBC 4.16 10e12/L 2019 Unknown COMPLETE BLOOD COUNT 1763386 HEMOGLOBIN 14.1 g/dL 09/30/19 20 Unknown COMPLETE BLOOD COUNT 3456177 HEMATOCRIT 42.6 % 09/30/19 20 Unknown COMPLETE BLOOD COUNT 3767351 MCV 102.4 fL 0 Unknown COMPLETE BLOOD COUNT 4252027 MCH 33.9 pg 0 Unknown COMPLETE BLOOD COUNT 2301372 MCHC 33.1 g/dL 0 Unknown COMPLETE BLOOD COUNT 0312946 PLATELET COUNT 273 10e9/L 11/2019 Unknown COMPLETE BLOOD COUNT 2226777 Mean Plt Volume 9.4 fL 11/2019 Unknown COMPLETE BLOOD COUNT 0290515 Neut Auto 57.3 % 0 Unknown COMPLETE BLOOD COUNT 9371499 Lymph Auto 29.3 % 09/30/19 20 Unknown COMPLETE BLOOD COUNT 0083144 Leslie Auto 7.6 % 0 Unknown COMPLETE BLOOD COUNT 6640214 RDW 13.8 % 0 Unknown COMPLETE BLOOD COUNT 3848730 Eos Auto 4.5 % 0 Unknown COMPLETE BLOOD COUNT 2129818 Baso Auto 1.3 % 0 Unknown COMPLETE BLOOD COUNT 9675028 Neutrophil Abs 3.04 10e9/L Unknown COMPLETE BLOOD COUNT 0527292 Lymphocyte Abs 1.55 10e9/L Unknown COMPLETE BLOOD COUNT 7153954 Monocyte Abs 0.40 10e9/L 11/2019 Unknown COMPLETE BLOOD COUNT 9437692 Eosinophil Abs 0.24 10e9/L Unknown COMPLETE BLOOD COUNT 5593079 RDW-SD 50.7 fL 0 Unknown COMPLETE BLOOD COUNT 7537014 Basophil Abs 0.07 10e9/L 11/2019 Unknown Procedures Procedure Codes Date ROUTINE VENIPUNCTURE CPT-4: 03527 01/25/2021 COMPREHEN METABOLIC PANEL CPT-4: 06861 01/25/2021 COMPLETE CBC W/AUTO DIFF WBC CPT-4: 71736 01/25/2021 URINE CULTURE/ COLONY COUNT CPT-4: 42163 01/25/2021 URINALYSIS NONAUTO W/O SCOPE CPT-4: 89292 01/25/2021 ROUTINE VENIPUNCTURE CPT-4: 29868 07/20/2020 COMPREHEN METABOLIC PANEL CPT-4: 30620 07/20/2020 ASSAY OF FREE THYROXINE CPT-4: 38066 07/20/2020 ASSAY THYROID STIM HORMONE CPT-4: 41065 07/20/2020 COMPLETE CBC W/AUTO DIFF WBC CPT-4: 59662 07/20/2020 RBC SED RATE AUTOMATED CPT-4: 86034 07/20/2020 URINALYSIS NONAUTO W/O SCOPE CPT-4: 74423 04/30/2020 URINE CULTURE/ COLONY COUNT CPT-4: 48454 04/30/2020 ROUTINE VENIPUNCTURE CPT-4: 29982 04/07/2020 COMPLETE CBC W/AUTO DIFF WBC CPT-4: 99933 04/07/2020 VITAMIN B-12 CPT-4: 51013 04/07/2020 ASSAY OF GGT CPT-4: 62793 04/07/2020 ROUTINE VENIPUNCTURE CPT-4: 59183 09/30/2019 ASSAY OF FREE THYROXINE CPT-4: 08889 09/30/2019 ASSAY THYROID STIM HORMONE CPT-4: 26492 09/30/2019 COMPREHEN METABOLIC PANEL CPT-4: 98648 09/30/2019 COMPLETE CBC W/AUTO DIFF WBC CPT-4: 56727 09/30/2019 LIPID PANEL CPT-4: 48272 09/30/2019 Vital Signs Date Vital 01/25/2021 Blood Pressure 1: 102/68 Code: 8480-6 Heart Rate 1: 76 bpm Respiratory Rate: 20 bpm SpO2: 100% Temperature: 36.9 (C) / 98.5 (F) We ight: 87 lbs Code: 85835-7 12/30/2020 Blood Pressure 1: 134/80 Code: 8480-6 BMI: 14.1 Code: 44427-0 Heart Rate 1: 72 bpm Height: 5'5" Code: 8302-2 Respiratory Rate: 18 bpm SpO2: 97% Temperature: 36.6 (C) / 97.8 (F) Weight: 85 lbs Code: 49323-4 11/10/2020 Blood Pressure 1: 130/74 Code: 8480-6 Heart Rate 1: 56 bpm Respiratory Rate: 20 bpm SpO2: 98% Temperature: 36.3 (C) / 97.4 (F) We ight: 85 lbs Code: 64249-2 07/29/2020 Blood Pressure 1: 121/65 Code: 8480-6 BMI: 14.3 Code: 32423-1 Heart Rate 1: 58 bpm Height: 5'5" Code: 8302-2 Respiratory Rate: 15 bpm SpO2: 98% Temperature: 36.9 (C) / 98.4 (F) Weight: 86 lbs Code: 07726-7 07/20/2020 Blood Pressure 1: 123/69 Code: 8480-6 Heart Rate 1: 68 bpm Respiratory Rate: 15 bpm SpO2: 99% Temperature: 36.6 (C) / 97.8 (F) We ight: 83 lbs Code: 73915-2 04/30/2020 Blood Pressure 1: 128/82 Code: 8480-6 Heart Rate 1: 68 bpm Respiratory Rate: 20 bpm SpO2: 95% Temperature: 36.5 (C) / 97.7 (F) We ight: 91 lbs Code: 92137-2 04/09/2020 Blood Pressure 1: 130/78 Code: 8480-6 Heart Rate 1: 68 bpm Respiratory Rate: 20 bpm SpO2: 99% Temperature: 36.3 (C) / 97.4 (F) We ight: 90 lbs Code: 42201-6 11/22/2019 Temperature: 36.3 (C) / 97.3 (F) 09/10/2019 Blood Pressure 1: 128/72 Code: 8480-6 BMI: 15.6 Code: 46116-6 Heart Rate 1: 68 bpm Height: 5'5" Code: 8302-2 Respiratory Rate: 20 bpm SpO2: 97% Temperature: 36.6 (C) / 97.9 (F) Weight: 94 lbs Code: 55480-8 Functional Status No Functional Status data Reason [...] frequent urination 04/30/2020 follow up 04/09/2020 Discuss labs---patie nt has been holding iron and vitamin b12. She has started taking nature balance mutivitamins fatigue 11/22/2019 ~generic 09/10/2019 New Patient---establ ishing visit Encounters Encounter Performer Location Codes Date ([id number]) OFFICE/OUTPATIENT VISIT EST Diagnosis: Fatigue[ICD10: R53.83] Diagnosis: Blood loss anemia[ICD10: D50.0] Diagnosis: Coronary artery disease[ICD10: I25.10] Diagnosis: Hematuria[ICD10: R31.9] Ericka CHANCE KatherineNilda [employer] CPT-4: 46100 01/25/2021 ([id number]) OFFICE/OUTPATIENT VISIT EST Diagnosis: GERD (gastroesophageal reflux disease)[ICD10: K21.9] Diagnosis: Duodenal ulcer[ICD10: K26.9] Diagnosis: Coronary artery disease[ICD10: I25.10] Diagnosis: Anxiety[ICD10: F41.9] Diagnosis: Blood loss anemia[ICD10: D50.0] Ericka CHANCE KatherineNilda [employer] CPT-4: 74569 12/30/2020 ([id number]) NURSE/OUTPATIENT VISIT EST Diagnosis: Edema[ICD10: R60.9] Ericka WEEMSQUELINE KatherineNilda [employer] CPT-4: 85194 12/21/2020 ([id number]) OFFICE/OUTPATIENT VISIT EST Diagnosis: Coronary artery disease[ICD10: I25.10] Diagnosis: Essential (primary) hypertension[ICD10: I10] Diagnosis: Stress reaction[ICD10: F43.0] Diagnosis: Insomnia[ICD10: G47.00] Diagnosis: Pulmonary nodule[ICD10: R91.1] Ericka CHANCE Katherine Nilda [employer] CPT-4: 27521 11/10/2020 ([id number]) NO CHARGE Diagnosis: Mass of upper lobe of right lung[ICD10: R91.8] Ericka MCCORMICK DO [facility] CPT-4: 00237 07/29/2020 ([id number]) OFFICE/OUTPATIENT VISIT EST Diagnosis: Fatigue[ICD10: R53.83] Diagnosis: Lymphadenopathy of head and neck[ICD10: R59.1] Diagnosis: Weight loss, non-intentional[ICD10: R63.4] Diagnosis: History of melanoma[ICD10: Z85.820] Diagnosis: Skin lesion[ICD10: L98.9] Sara NUNEZ [employer] CPT-4: 48756 07/20/2020 ([id number]) OFFICE/OUTPATIENT VISIT EST Diagnosis: Urinary tract infection[ICD10: N39.0] Meena Ferreiradi MICHOACANO MCCORMICK [employer] CPT-4: 03849 04/30/2020 ([id number]) OFFICE/OUTPATIENT VISIT EST Diagnosis: Dizziness[ICD10: R42] Diagnosis: Depressed mood with feeling of loneliness[ICD10: F32.9] Diagnosis: Insomnia[ICD10: G47.00] Ericka CHANEL [employer] CPT-4: 18524 04/09/2020 ([id number]) NURSE/OUTPATIENT VISIT EST Diagnosis: Coronary artery disease[ICD10: I25.10] Diagnosis: Fatigue[ICD10: R53.83] Diagnosis: Essential (primary) hypertension[ICD10: I10] Ericka Garcíacurtispromise MCCORMICK [employer] CPT-4: 52619 04/07/2020 ([id number]) OFFICE/OUTPATIENT VISIT EST Diagnosis: Fatigue[ICD10: R53.83] Meena Li [facility] CPT-4: 09696 11/22/2019 ([id number]) NURSE/OUTPATIENT VISIT EST Diagnosis: Essential (primary) hypertension[ICD10: I10] Diagnosis: Coronary artery disease[ICD10: I25.10] Diagnosis: Encounter for general adult medical examination with abnormal findings[ICD10: Z00.01] Ericka Garcíadeysi ERICKA MurphyNilda CHELY [employer] CPT-4: 25783 09/30/2019 ([id number]) OFFICE/OUTPATIENT VISIT NEW Diagnosis: Essential (primary) hypertension[ICD10: I10] Diagnosis: Coronary artery disease[ICD10: I25.10] Diagnosis: Aortic valve stenosis with insufficiency[ICD10: I35.2] Ericka MCCORMICK DO [facility] CPT-4: 39906 09/10/2019 Plan of Care Planned Activity Notes Codes Status Date Visit Diagnosis Plan: Hematuria Discussion: Culture ur ine ICD-9 : 599.70 ICD-10 : R31.9 01/25/2021 Visit Diagnosis Plan: Blood loss anemia Discussion: Ch real CBC now ICD-9 : 280.0 ICD-10 : D50.0 01/25/2021 Appointment: Ericka Mccormick WPtel: [address] [place] [address] ACUTE ILLNESS 01/25/2021 Appointment: Sara Aguila WPtel: [address] [place] [address] US CANCELED 01/01/2021 Visit Diagnosis Plan: Anxiety [...] : 530.81 ICD-10 : K21.9 12/30/2020 Appointment: Ericka Mccormick WPtel: [address] [place], [place] [phone] US FOLLOW UP 12/30/2020 Appointment: Ericka Mccormick WPtel: [address] [place], [place] [phone] NURSE SERVICES 12/21/2020 Visit Diagnosis Plan: Insomnia [...] : 308.9 ICD-10 : F43.0 11/10/2020 Appointment: Ericka Mccormick WPtel: [facility] FOLLOW UP 11/10/2020 Patient Education: [email or web address]- [email or web address] Coupon [phone] [email or web address] Completed 11/10/2020 Visit Diagnosis Plan: Mass of upper lobe of right lung Discussion: CT scan of lung results discussed with patient and told this looks like cancer Agrees to see pulmonology to see if will be amenable to bronchoscopy to get cells/washings ICD-9 : 786.6 ICD-10 : R91.8 07/29/2020 Appointment: Eric[facility]ccormick [facility]el[facility] [facility] 07/29/2020 Care Plan: Referral Order SNOMED-CT : 30 [id number] Pending 07/29/2020 Care Plan: CT SFT TSUE NCK W/O & W/DYE L OINC : 69800-5 Pending 07/21/2020 Visit Diagnosis Plan: Fatigue Discussion: [...] : 709.9 ICD-10 : L98.9 07/20/2020 Appointment: Mingo Sara WPtel: [address] [facility] ACUTE ILLNESS 07/20/2020 Patient Education: Patient Medication [...] ICD-10 : N39.0 04/30/2020 Appointment: Meena Li [address] [place], [place] [id number] ACUTE ILLNESS 04/30/2020 Appointment: Meena Li [address] [place] [address] 04/21/2020 1020---patient needed seen fo r appointment [...] : 311 ICD-10 : F32.9 04/09/2020 Appointment: Ericka Mccormick WPtel: [address] [facility] FOLLOW UP 04/09/2020 Care Plan: COMPREHEN METABOLIC [place] : 03054-5 Pending 04/09/2020 Appointment: Ericka Mccormick WPtel: [address] [place], [place] [phone] US LAB 04/07/2020 Visit Diagnosis Plan: Fatigue Discussion: no other sym ptoms other than fatigue for 4 weeks so will update labs. order sent [place] [facility] [place] blood work and ua with c&s. instructed to call office with new or worsening symptoms. ICD-9 : 780.79 ICD-10 : R53.83 11/22/2019 Appointment: Meena Li [address] [place] [address] TELEMEDICINE 11/22/2019 Appointment: Ericka Mccormick WPtel: [address] [place] [address] US LAB 09/30/2019 Visit Diagnosis Plan: Coronary [...] : 401.9 ICD-10 : I10 09/10/2019 Appointment: Ericka Mccormick WPtel: [address] [place], [place] [phone] NEW PATIENT 09/10/2019 Patient Education: [email or web address]- [email or web address] Coupon [phone] [email or web address] Completed 09/10/2019 Appointment: Ericka Mccormick WPtel: [address] [place], [place] [address] RESCHEDULED 08/20/2019 Appointment: Ericka Mccormicktel: [phone] [id number] US CANCELED 07/22/2019 Referral: Vikram Maguire WPtel: [address] [facility] [address] [id number] [place] Referral Appointment Requested Instructions No Instructions Medical Equipment No Medical Equipment data Health Concerns Section Health Concerns data not found Goals Section Goals data not found Interventions Section Interventions data not found Health Status Evaluations/Outcomes Section Health Status Evaluations/Outcomes data not found Advance Directives No Advance Directive data
--- OUTSIDE RECORDS SUMMARY | 2021-02-15 18:53 | XMS REPORT | CCD ---
Author Author Erica Mccormick D.O. Organization ERICKA MCCORMICK DO [facility] Address [address] [place] [address] Phone Care Team Providers Care Office Workforce Planner Name Role Phone PP Unavailable CCM Unavailable Summary Purpose Interface Exchange Insurance Providers Payer name Policy type / Coverage type Covered democrat ID Effective Begin Date Effective End Date WPS MEDICARE PART B [place] Medicare Part B [id number] Unknown Unknown BLUE CROSS [place] MEDIC[place] SU[place] Medicare Part B X [id number] Unknown Unknown Family History Family History data not found Social History Social History Element Codes Description Effective Dates Marital status Unknown 09/10/2019 Number of children Unknown 1 09/10/2019 Employment Unknown Retired 09/10/[address]: 8191501 Former smoker quit 201109/10/[address]: 524862 Currently drinks alcohol 09/09 Frequency of drinks SNOMED CT: 483698636 1-4 drinks per week Allergies, Adverse Reactions, [...] Problems Condition Codes Effective Dates Condition Status Hematuria ICD-10: R31.9 ICD-9: 599.70 01/25/2021 Active [...] Fill Instructions paroxetine 20 mg tablet RxNorm: 2521477 1 Tablet(s) Oral QD 01/20/2021 Inactive pantoprazole 20 mg tablet,delayed release RxNorm: 203122 1 Tablet(s) Oral two times a day 12/22/2020 03/21/2021 Active pantoprazole 20 mg tablet,delayed release RxNorm: 581355 1 Tablet(s) Oral two times a day 12/22/2020 12/22/2020 Inactive paroxetine 20 mg tablet RxNorm: 2584374 1 Tablet(s) Oral QD 021 12/15/2020 Inactive paroxetine 20 mg tablet RxNorm: 4976888 1 Tablet(s) Oral QD 021 12/15/2020 Inactive MagOx 400 mg (241.3 mg magnesium) tablet RxNorm: 086098 Take 1 Tablet(s) Oral every night at bedtime with melatonin 11/23/2020 01/24/2021 Inactive melatonin 3 mg tablet RxNorm: 030945 Take 1-2 Tablet(s) Oral every night at bedtime 11/18/2020 No Stop Date Active atorvastatin 40 mg tablet RxNorm: 636207 Take 1 Tablet( s) Oral every night at bedtime 11/10/2020 No Stop Date Active Plavix 75 mg tablet RxNorm: 157272 Take 1 Tablet(s) Oral QD No Stop Date Active trazodone 50 mg tablet RxNorm: 626151 Take 1-2 Tablet(s ) Oral QPM as needed for sleep 11/10/2020 11/22/2020 Inactive alprazolam 0.25 mg tablet RxNorm: 634900 1/2-1 Tablet(s ) Oral QPM as needed for sleep 08/03/2020 09/01/2020 Inactive alprazolam 0.25 mg tablet RxNorm: 407412 1/2-1 Tablet(s ) Oral QPM as needed for sleep 08/03/2020 08/02/2020 Inactive Aspirin Low Dose 81 mg tablet,delayed release RxNorm: 526108 1 Tablet(s) Oral QD 09/10/2019 No Stop Date Active losartan 25 mg tablet RxNorm: 958786 1 Tablet(s) Oral QD 09/10/2019 No Stop Date Active carvedilol 6.25 mg tablet RxNorm: 788343 1 Tablet(s) Oral two t imes a day 09/10/2019 11/09/2020 Inactive Fish Oil 1,000 mg (120 mg-180 mg) capsule RxNorm: 1 Caps ule(s) Oral QD 09/10/2019 11/25/2019 Inactive Medication Administered No Medication Administered data Immunizations No Immunization data Results Observation Observation Code Item Item Code Result Date S ervice Location COMPLETE BLOOD COUNT [id number] WBC 6.1 10e9/L 01/26/20 21 Unknown COMPLETE BLOOD COUNT [id number] RBC 3.34 10e12/L 2020 Unknown COMPLETE BLOOD COUNT [id number] HEMOGLOBIN 8.8 g/dL 01/26/20 21 Unknown COMPLETE BLOOD COUNT [id number] HEMATOCRIT 28.5 % 01/26/20 21 Unknown COMPLETE BLOOD COUNT [id number] MCV 85.3 fL 1 Unknown COMPLETE BLOOD COUNT [id number] MCH 26.3 pg 1 Unknown COMPLETE BLOOD COUNT 2249916 MCHC 30.9 g/dL 1 Unknown COMPLETE BLOOD COUNT [id number] PLATELET COUNT 268 10e9/L 07/2020 Unknown COMPLETE BLOOD COUNT [id number] Mean Plt Volume 8.7 fL 07/2020 Unknown COMPLETE BLOOD COUNT [id number] Neut Auto 67.7 % 1 Unknown COMPLETE BLOOD COUNT [id number] Lymph Auto 19.4 % 01/26/20 21 Unknown COMPLETE BLOOD COUNT [id number] [place] Auto 8.4 % 1 Unknown COMPLETE BLOOD COUNT [id number] RDW 16.7 % 1 Unknown COMPLETE BLOOD COUNT [id number] Eos Auto 3.8 % 1 Unknown COMPLETE BLOOD COUNT 6484619 Baso Auto 0.7 % 1 Unknown COMPLETE BLOOD COUNT [id number] Neutrophil Abs 4.13 10e9/L Unknown COMPLETE BLOOD COUNT 0508184 Lymphocyte Abs 1.18 10e9/L Unknown COMPLETE BLOOD COUNT [id number] Monocyte Abs 0.51 10e9/L 07/2020 Unknown COMPLETE BLOOD COUNT 8245709 Eosinophil Abs 0.23 10e9/L Unknown COMPLETE BLOOD COUNT [id number] RDW-SD 50.9 fL Unknown COMPLETE BLOOD COUNT [id number] Basophil Abs 0.04 10e9/L 07/2020 Unknown GFR CALC 2155900 GFR Non Afr Amr >60 mL/min 01/25/2021 Un known GFR CALC 3469831 GFR Afr Amr >60 mL/min 01/25/2021 Unknow n COMPREHENSIVE METABOLIC 96945 AST 17 U/L 2020 Unknown COMPREHENSIVE METABOLIC 84167 ALT 13 U/L 2020 Unknown COMPREHENSIVE METABOLIC 77046 BUN 14 mg/dL 2020 Unknown COMPREHENSIVE METABOLIC 06158 ALBUMIN 4.1 g/dL 2020 Unknown COMPREHENSIVE METABOLIC 40628 CHLORIDE 102 mmol/L 01/25 Unknown COMPREHENSIVE METABOLIC 17750 Bili Total 0.4 mg/dL 01/25 Unknown COMPREHENSIVE METABOLIC 44669 ALK PHOS 85 U/L 2020 Unknown COMPREHENSIVE METABOLIC 64997 SODIUM 134 mmol/L 01/25 Unknown COMPREHENSIVE METABOLIC 39111 CREATININE 0.71 mg/dL 07/2020 Unknown COMPREHENSIVE METABOLIC 98058 CALCIUM 9.3 mg/dL 2020 Unknown COMPREHENSIVE METABOLIC 71426 POTASSIUM 4.3 mmol/L 01/25 Unknown COMPREHENSIVE METABOLIC 87895 Total Protein 7.0 g/dL Unknown COMPREHENSIVE METABOLIC 52986 Glucose 111 mg/dL 2020 Unknown COMPREHENSIVE METABOLIC 42407 Bicarbonate 24 mmol/L 07/2020 Unknown COMPREHENSIVE METABOLIC 99971 AGAP 8 mmol/L 2020 Unknown COMPREHENSIVE METABOLIC 33072 AST 16 U/L 2019 Unknown COMPREHENSIVE METABOLIC 60939 ALT 12 U/L 2019 Unknown COMPREHENSIVE METABOLIC 07158 BUN 13 mg/dL 2019 Unknown COMPREHENSIVE METABOLIC 17074 ALBUMIN 4.1 g/dL 2019 Unknown COMPREHENSIVE METABOLIC 47087 CHLORIDE 96 mmol/L 2019 Unknown COMPREHENSIVE METABOLIC 38278 Bili Total 1.1 mg/dL 04/09 Unknown COMPREHENSIVE METABOLIC 23522 ALK PHOS 80 U/L 2019 Unknown COMPREHENSIVE METABOLIC 01036 SODIUM 131 mmol/L 04/09 Unknown COMPREHENSIVE METABOLIC 73293 CREATININE 0.76 mg/dL 03/24 Unknown COMPREHENSIVE METABOLIC 03365 CALCIUM 9.0 mg/dL 2019 Unknown COMPREHENSIVE METABOLIC 31720 POTASSIUM 4.2 mmol/L 04/09 Unknown COMPREHENSIVE METABOLIC 03006 Total Protein 6.8 g/dL Unknown COMPREHENSIVE METABOLIC 32627 Glucose 101 mg/dL 2019 Unknown COMPREHENSIVE METABOLIC 21837 Bicarbonate 25 mmol/L 03/24 Unknown COMPREHENSIVE METABOLIC 35546 AGAP 10 mmol/L 2019 Unknown GFR CALC 2910600 GFR Non Afr Amr >60 mL/min 04/09/2020 Un known GFR CALC 3774338 GFR Afr Amr >60 mL/min 04/09/2020 Unknow n GAMMA GLUTAMYL TRANSFERASE 53030 GGT 19 U/L Unknown COMPLETE BLOOD COUNT 5354045 WBC 6.3 10e9/L 04/07/20 20 Unknown COMPLETE BLOOD COUNT [id number] RBC 4.36 10e12/L 2019 Unknown COMPLETE BLOOD COUNT 6347328 HEMOGLOBIN 15.2 g/dL 04/07/20 20 Unknown COMPLETE BLOOD COUNT 9094154 HEMATOCRIT 43.8 % 04/07/20 20 Unknown COMPLETE BLOOD COUNT 0518885 MCV 100.5 fL 0 Unknown COMPLETE BLOOD COUNT 9860890 MCH 34.9 pg 0 Unknown COMPLETE BLOOD COUNT 0347937 MCHC 34.7 g/dL 0 Unknown COMPLETE BLOOD COUNT 9839461 PLATELET COUNT 254 10e9/L Unknown COMPLETE BLOOD COUNT 6678575 Mean Plt Volume 9.9 fL Unknown COMPLETE BLOOD COUNT 7411891 Neut Auto 63.3 % 0 Unknown COMPLETE BLOOD COUNT 6815240 Lymph Auto 24.5 % 04/07/20 20 Unknown COMPLETE BLOOD COUNT 9336304 [place] Auto 8.4 % 0 Unknown COMPLETE BLOOD COUNT 9570398 RDW 12.8 % 0 Unknown COMPLETE BLOOD COUNT 2761226 Eos Auto 3.2 % 0 Unknown COMPLETE BLOOD COUNT 9802156 Baso Auto 0.6 % 0 Unknown COMPLETE BLOOD COUNT 1641518 Neutrophil Abs 3.99 10e9/L Unknown COMPLETE BLOOD COUNT 2668106 Lymphocyte Abs 1.54 10e9/L Unknown COMPLETE BLOOD COUNT 9949807 Monocyte Abs 0.53 10e9/L 03/24 Unknown COMPLETE BLOOD COUNT 2961076 Eosinophil Abs 0.20 10e9/L Unknown COMPLETE BLOOD COUNT 5187023 RDW-SD 47.6 fL 0 Unknown COMPLETE BLOOD COUNT 3793781 Basophil Abs 0.04 10e9/L 03/24 Unknown VITAMIN B 12 05012 VITAMIN B12 661 pg/mL 04/07/2020 Unkn own LIPID GROUP 06143 Cholesterol 168 mg/dL 09/30/2019 Unkno wn LIPID GROUP 43974 Triglyceride 141 mg/dL 09/30/2019 Unkn own LIPID GROUP 26695 HDL CHOLESTEROL 66 mg/dL 09/30/2019 U nknown LIPID GROUP 86327 Chol/HDL Ratio 2.55 ratio 09/30/2019 U nknown LIPID GROUP 31622 NON-HDL Chol 102 mg/dL 09/30/2019 Unkn own LIPID GROUP 63986 LDL Cholesterol 74 mg/dL 09/30/2019 U nknown FREE T4 67524 T4 Free 0.76 ng/dL 09/30/2019 Unknown THYROID STIMULATING HORMONE 68147 TSH 2.186 uIU/mL 09/30/2019 Unknown GFR CALC 7250192 GFR Non Afr Amr >60 mL/min 09/30/2019 Un known GFR CALC 1193143 GFR Afr Amr >60 mL/min 09/30/2019 Unknow n COMPREHENSIVE METABOLIC 45065 AST 14 U/L 2019 Unknown COMPREHENSIVE METABOLIC 42729 ALT 11 U/L 2019 Unknown COMPREHENSIVE METABOLIC 98392 BUN 15 mg/dL 2019 Unknown COMPREHENSIVE METABOLIC 89371 ALBUMIN 4.0 g/dL 2019 Unknown COMPREHENSIVE METABOLIC 56506 CHLORIDE 96 mmol/L 2019 Unknown COMPREHENSIVE METABOLIC 01850 Bili Total 0.9 mg/dL 09/29 Unknown COMPREHENSIVE METABOLIC 08841 ALK PHOS 72 U/L 2019 Unknown COMPREHENSIVE METABOLIC 33876 SODIUM 132 mmol/L 09/29 Unknown COMPREHENSIVE METABOLIC 36269 CREATININE 0.73 mg/dL 11/2019 Unknown COMPREHENSIVE METABOLIC 45535 CALCIUM 9.1 mg/dL 2019 Unknown COMPREHENSIVE METABOLIC 99907 POTASSIUM 4.6 mmol/L 09/29 Unknown COMPREHENSIVE METABOLIC 88630 Total Protein 6.4 g/dL Unknown COMPREHENSIVE METABOLIC 17930 Glucose 97 mg/dL 2019 Unknown COMPREHENSIVE METABOLIC 09878 Bicarbonate 25 mmol/L 11/2019 Unknown COMPREHENSIVE METABOLIC 70733 AGAP 11 mmol/L 2019 Unknown COMPLETE BLOOD COUNT 9752469 WBC 5.3 10e9/L 09/30/19 20 Unknown COMPLETE BLOOD COUNT [id number] RBC 4.16 10e12/L 2019 Unknown COMPLETE BLOOD COUNT 7769471 HEMOGLOBIN 14.1 g/dL 09/30/19 20 Unknown COMPLETE BLOOD COUNT 9275386 HEMATOCRIT 42.6 % 09/30/19 20 Unknown COMPLETE BLOOD COUNT 0534756 MCV 102.4 fL 0 Unknown COMPLETE BLOOD COUNT 1042992 MCH 33.9 pg 0 Unknown COMPLETE BLOOD COUNT 3466688 MCHC 33.1 g/dL 0 Unknown COMPLETE BLOOD COUNT 1610403 PLATELET COUNT 273 10e9/L 11/2019 Unknown COMPLETE BLOOD COUNT 4013682 Mean Plt Volume 9.4 fL 11/2019 Unknown COMPLETE BLOOD COUNT 4592267 Neut Auto 57.3 % 0 Unknown COMPLETE BLOOD COUNT 8470779 Lymph Auto 29.3 % 09/30/19 20 Unknown COMPLETE BLOOD COUNT 1439858 [place] Auto 7.6 % 0 Unknown COMPLETE BLOOD COUNT 3789758 RDW 13.8 % 0 Unknown COMPLETE BLOOD COUNT 9280341 Eos Auto 4.5 % 0 Unknown COMPLETE BLOOD COUNT 5817212 Baso Auto 1.3 % 0 Unknown COMPLETE BLOOD COUNT 5990356 Neutrophil Abs 3.04 10e9/L Unknown COMPLETE BLOOD COUNT 4045562 Lymphocyte Abs 1.55 10e9/L Unknown COMPLETE BLOOD COUNT 9864448 Monocyte Abs 0.40 10e9/L 11/2019 Unknown COMPLETE BLOOD COUNT 4876017 Eosinophil Abs 0.24 10e9/L Unknown COMPLETE BLOOD COUNT 2846014 RDW-SD 50.7 fL 0 Unknown COMPLETE BLOOD COUNT 1275494 Basophil Abs 0.07 10e9/L 11/2019 Unknown Procedures Procedure Codes Date ROUTINE VENIPUNCTURE CPT-4: 40878 01/25/2021 COMPREHEN METABOLIC PANEL CPT-4: 49733 01/25/2021 COMPLETE CBC W/AUTO DIFF WBC CPT-4: 74503 01/25/2021 URINE CULTURE/ COLONY COUNT CPT-4: 72531 01/25/2021 URINALYSIS NONAUTO W/O SCOPE CPT-4: 87716 01/25/2021 ROUTINE VENIPUNCTURE CPT-4: 44477 07/20/2020 COMPREHEN METABOLIC PANEL CPT-4: 36376 07/20/2020 ASSAY OF FREE THYROXINE CPT-4: 72458 07/20/2020 ASSAY THYROID STIM HORMONE CPT-4: 42173 07/20/2020 COMPLETE CBC W/AUTO DIFF WBC CPT-4: 18580 07/20/2020 RBC SED RATE AUTOMATED CPT-4: 61561 07/20/2020 URINALYSIS NONAUTO W/O SCOPE CPT-4: 73702 04/30/2020 URINE CULTURE/ COLONY COUNT CPT-4: 28649 04/30/2020 ROUTINE VENIPUNCTURE CPT-4: 16637 04/07/2020 COMPLETE CBC W/AUTO DIFF WBC CPT-4: 21358 04/07/2020 VITAMIN B-12 CPT-4: 88361 04/07/2020 ASSAY OF GGT CPT-4: 97456 04/07/2020 ROUTINE VENIPUNCTURE CPT-4: 44732 09/30/2019 ASSAY OF FREE THYROXINE CPT-4: 46645 09/30/2019 ASSAY THYROID STIM HORMONE CPT-4: 20720 09/30/2019 COMPREHEN METABOLIC PANEL CPT-4: 25764 09/30/2019 COMPLETE CBC W/AUTO DIFF WBC CPT-4: 83716 09/30/2019 LIPID PANEL CPT-4: 83037 09/30/2019 Vital Signs Date Vital 01/25/2021 Blood Pressure 1: 102/68 Code: 8480-6 Heart Rate 1: 76 bpm Respiratory Rate: 20 bpm SpO2: 100% Temperature: 36.9 (C) / 98.5 (F) We ight: 87 lbs Code: 69967-5 12/30/2020 Blood Pressure 1: 134/80 Code: 8480-6 BMI: 14.1 Code: 46874-1 Heart Rate 1: 72 bpm Height: 5'5" Code: 8302-2 Respiratory Rate: 18 bpm SpO2: 97% Temperature: 36.6 (C) / 97.8 (F) Weight: 85 lbs Code: 48493-7 11/10/2020 Blood Pressure 1: 130/74 Code: 8480-6 Heart Rate 1: 56 bpm Respiratory Rate: 20 bpm SpO2: 98% Temperature: 36.3 (C) / 97.4 (F) We ight: 85 lbs Code: 53238-3 07/29/2020 Blood Pressure 1: 121/65 Code: 8480-6 BMI: 14.3 Code: 80470-6 Heart Rate 1: 58 bpm Height: 5'5" Code: 8302-2 Respiratory Rate: 15 bpm SpO2: 98% Temperature: 36.9 (C) / 98.4 (F) Weight: 86 lbs Code: 75898-0 07/20/2020 Blood Pressure 1: 123/69 Code: 8480-6 Heart Rate 1: 68 bpm Respiratory Rate: 15 bpm SpO2: 99% Temperature: 36.6 (C) / 97.8 (F) We ight: 83 lbs Code: 75279-4 04/30/2020 Blood Pressure 1: 128/82 Code: 8480-6 Heart Rate 1: 68 bpm Respiratory Rate: 20 bpm SpO2: 95% Temperature: 36.5 (C) / 97.7 (F) We ight: 91 lbs Code: 40766-6 04/09/2020 Blood Pressure 1: 130/78 Code: 8480-6 Heart Rate 1: 68 bpm Respiratory Rate: 20 bpm SpO2: 99% Temperature: 36.3 (C) / 97.4 (F) We ight: 90 lbs Code: 97796-6 11/22/2019 Temperature: 36.3 (C) / 97.3 (F) 09/10/2019 Blood Pressure 1: 128/72 Code: 8480-6 BMI: 15.6 Code: 59196-6 Heart Rate 1: 68 bpm Height: 5'5" Code: 8302-2 Respiratory Rate: 20 bpm SpO2: 97% Temperature: 36.6 (C) / 97.9 (F) Weight: 94 lbs Code: 88577-1 Functional Status No Functional Status data Reason [...] visit Encounters Encounter Performer Location Codes Date ([id number]) OFFICE/OUTPATIENT VISIT EST Diagnosis: Fatigue[ICD10: R53.83] Diagnosis: Blood loss anemia[ICD10: D50.0] Diagnosis: Coronary artery disease[ICD10: I25.10] Diagnosis: Hematuria[ICD10: R31.9] Ericka CHANCE GirishNilda Reso[facility]TIS [employer] CPT-4: 57833 01/25/2021 ([id number]) OFFICE/OUTPATIENT VISIT EST Diagnosis: GERD (gastroesophageal reflux disease)[ICD10: K21.9] Diagnosis: Duodenal ulcer[ICD10: K26.9] Diagnosis: Coronary artery disease[ICD10: I25.10] Diagnosis: Anxiety[ICD10: F41.9] Diagnosis: Blood loss anemia[ICD10: D50.0] Ericka CHANCE GirishNilda [facility] CPT-4: 97250 12/30/2020 ([id number]) NURSE/OUTPATIENT VISIT EST Diagnosis: Edema[ICD10: R60.9] Ericka WEEMSQUELINE GirishNilda [facility] CPT-4: 05573 12/21/2020 ([id number]) OFFICE/OUTPATIENT VISIT EST Diagnosis: Coronary artery disease[ICD10: I25.10] Diagnosis: Essential (primary) hypertension[ICD10: I10] Diagnosis: Stress reaction[ICD10: F43.0] Diagnosis: Insomnia[ICD10: G47.00] Diagnosis: Pulmonary nodule[ICD10: R91.1] Ericka CHANCE Girish Nilda [facility] CPT-4: 92481 11/10/2020 ([id number]) NO CHARGE Diagnosis: Mass of upper lobe of right lung[ICD10: R91.8] Ericka MCCORMICK DO [facility] CPT-4: 55780 07/29/2020 ([id number]) OFFICE/OUTPATIENT VISIT EST Diagnosis: Fatigue[ICD10: R53.83] Diagnosis: Lymphadenopathy of head and neck[ICD10: R59.1] Diagnosis: Weight loss, non-intentional[ICD10: R63.4] Diagnosis: History of melanoma[ICD10: Z85.820] Diagnosis: Skin lesion[ICD10: L98.9] Sara NUNEZ [employer] CPT-4: 04501 07/20/2020 ([id number]) OFFICE/OUTPATIENT VISIT EST Diagnosis: Urinary tract infection[ICD10: N39.0] Meena Ferreiradi MICHOACANO MCCORMICK [employer] CPT-4: 42992 04/30/2020 ([id number]) OFFICE/OUTPATIENT VISIT EST Diagnosis: Dizziness[ICD10: R42] Diagnosis: Depressed mood with feeling of loneliness[ICD10: F32.9] Diagnosis: Insomnia[ICD10: G47.00] Ericka CHANEL [employer] CPT-4: 95666 04/09/2020 ([id number]) NURSE/OUTPATIENT VISIT EST Diagnosis: Coronary artery disease[ICD10: I25.10] Diagnosis: Fatigue[ICD10: R53.83] Diagnosis: Essential (primary) hypertension[ICD10: I10] Ericka Garcíacurtispromise MCCORMICK [employer] CPT-4: 26879 04/07/2020 ([id number]) OFFICE/OUTPATIENT VISIT EST Diagnosis: Fatigue[ICD10: R53.83] Meena Li [facility] CPT-4: 80057 11/22/2019 ([id number]) NURSE/OUTPATIENT VISIT EST Diagnosis: Essential (primary) hypertension[ICD10: I10] Diagnosis: Coronary artery disease[ICD10: I25.10] Diagnosis: Encounter for general adult medical examination with abnormal findings[ICD10: Z00.01] Ericka Garcíadeysi ERICKA MurphyNilda CHELY [employer] CPT-4: 94094 09/30/2019 ([id number]) OFFICE/OUTPATIENT VISIT NEW Diagnosis: Essential (primary) hypertension[ICD10: I10] Diagnosis: Coronary artery disease[ICD10: I25.10] Diagnosis: Aortic valve stenosis with insufficiency[ICD10: I35.2] Ericka MCCORMICK DO [facility] CPT-4: 12760 09/10/2019 Plan of Care Planned Activity Notes Codes Status Date Care Plan: UA W/MICR ADD ON ORDER LOINC : 91276-4 Pending 01/26/2021 Visit Diagnosis Plan: Hematuria Discussion: Culture ur ine ICD-9 : 599.70 ICD-10 : R31.9 01/25/2021 Visit Diagnosis Plan: Blood loss anemia Discussion: Ch real CBC now ICD-9 : 280.0 ICD-10 : D50.0 01/25/2021 Appointment: Ericka Mccormick WPtel: [address] [place], [place] [phone] ACUTE ILLNESS 01/25/2021 Appointment: Sara Aguila WPtel: [phone] [facility] US CANCELED 01/01/2021 Visit Diagnosis Plan: Anxiety [...] : K21.9 12/30/2020 Appointment: Ericka Mccormick WPtel: [address] [place], [place] [phone] [place] FOLLOW UP 12/30/2020 Appointment: Ericka Mccormick WPtel: [address] [place], [place] [id number] NURSE SERVICES 12/21/2020 Visit Diagnosis Plan: Insomnia [...] : F43.0 11/10/2020 Appointment: Ericka Mccormick WPtel: [address] [place], [place] [phone] FOLLOW UP 11/10/2020 Patient Education: trazodone- [employer] Coupon [phone] [email or web address]/[email or web address] Completed 11/10/2020 Visit Diagnosis Plan: Mass of upper lobe of right lung Discussion: CT scan of lung results discussed with patient and told this looks like cancer Agrees to see pulmonology to see if will be amenable to bronchoscopy to get cells/washings ICD-9 : 786.6 ICD-10 : R91.8 07/29/2020 Appointment: Ericka Mccormick WPtel: [address] [place], [place] [id number] WORK IN 07/29/2020 Care Plan: Referral Order SNOMED-CT : 30 [id number] Pending 07/29/2020 Care Plan: CT SFT TSUE NCK W/O & W/DYE L OINC : 96981-8 Pending 07/21/2020 Visit Diagnosis Plan: Fatigue Discussion: [...] 07/20/2020 Appointment: Sara Aguila WPtel: [phone] [facility] ACUTE ILLNESS 07/20/2020 Patient Education: Patient Medication [...] ICD-10 : N39.0 04/30/2020 Appointment: Meena Li [address] [place] [address] ACUTE ILLNESS 04/30/2020 Appointment: Meena Li [address] [place] [address] 04/21/2020 1020---patient needed seen fo r appointment [...] : F32.9 04/09/2020 Appointment: Ericka Mccormick WPtel: [phone] [facility] FOLLOW UP 04/09/2020 Care Plan: COMPREH[place] METAB[place] : [address]-3 Pending 04/09/2020 Appointment: Ericka Mccormick WPtel: [facility] [facility] US LAB 04/07/2020 Visit Diagnosis Plan: Fatigue Discussion: no other sym ptoms other than fatigue for 4 weeks so will update labs. order sent to [facility] for blood work and ua with c&s. instructed to call office with new or worsening symptoms. ICD-9 : 780.79 ICD-10 : R53.83 11/22/2019 Appointment: Meena Li [facility] TELEMEDICINE 11/22/2019 Appointment: Ericka Mccormick WPtel: [address] [place] [address] US LAB 09/30/2019 Visit Diagnosis Plan: Coronary artery disease Discussi on: Sees Dr. Crowley every 6mos ICD-9 : 414.00 ICD-10 : I25.10 09/10/2019 Visit Diagnosis Plan: Aortic valve stenosis with insuf ficiency Discussion: Sees Dr. Crowley every 6mos Does labwork every 6mos so due end of September Patient states has a living will and is a DNR Discussion: Seegirish Crowley every 6mos Does labwork every 6mos so due end of September ICD-9 : 424.1 ICD-10 : I35.2 09/10/2019 Visit Diagnosis Plan: Essential (primary) hypertension Discussion: Stable Follow Up: 6 months ICD-9 : 401.9 ICD-10 : I10 09/10/2019 Appointment: Ericka Mccormick WPtel: [address] [place], [place] [phone] [place] NEW PATIENT 09/10/2019 Patient Education: carvedilol- Opt[employer]RX Elvin [phone] [email or web address] Completed 09/10/2019 Appointment: Ericka Mccormick WPtel: [address] [place], [place] [phone] US RESCHEDULED 08/20/2019 Appointment: Eric[facility]ccormick [facility]Ptel[facility] [phone] [facility] [facility] 07/22/2019 Referral: Vikram Maguire WPtel: [address] [facility] [address] [id number] [place] Referral Appointment Requested Instructions No Instructions Medical Equipment No Medical Equipment data Health Concerns Section Health Concerns data not found Goals Section Goals data not found Interventions Section Interventions data not found Health Status Evaluations/Outcomes Section Health Status Evaluations/Outcomes data not found Advance Directives No Advance Directive data
--- OUTSIDE RECORDS SUMMARY | 2021-02-15 18:53 | XMS REPORT | CCD ---
Author Author Erica Mccormick D.O. Organization ERICKA MCCORMICK DO [facility] Address [address] [place] [address] Phone Care Team Providers Care Phone Counselor Name Role Phone PP Unavailable CCM Unavailable Summary Purpose Interface Exchange Insurance Providers Payer name Policy type / Coverage type Covered democrat ID Effective Begin Date Effective End Date WPS MEDICARE PART B [place] Medicare Part B [id number] Unknown Unknown BLUE [employer] [place] MEDICARE [place] Medicare Part B X [id number] Unknown Unknown Family History Family History data not found Social History Social History Element Codes Description Effective Dates Marital status Unknown 09/10/2019 Number of children Unknown 1 09/10/2019 Employment Unknown Retired 09/10/[address]: 8285076 Former smoker quit 201109/10/[address]: 741669 Currently drinks alcohol 09/09 Frequency of drinks SNOMED CT: 686567474 1-4 drinks per week Allergies, Adverse Reactions, [...] Fill Instructions paroxetine 20 mg tablet RxNorm: 4144528 1 Tablet(s) Oral QD 01/20/2021 Inactive pantoprazole 20 mg tablet,delayed release RxNorm: 620490 1 Tablet(s) Oral two times a day 12/22/2020 03/21/2021 Active pantoprazole 20 mg tablet,delayed release RxNorm: 671701 1 Tablet(s) Oral two times a day 12/22/2020 12/22/2020 Inactive paroxetine 20 mg tablet RxNorm: 6498362 1 Tablet(s) Oral QD 021 12/15/2020 Inactive paroxetine 20 mg tablet RxNorm: 9607511 1 Tablet(s) Oral QD 021 12/15/2020 Inactive MagOx 400 mg (241.3 mg magnesium) tablet RxNorm: 789385 Take 1 Tablet(s) Oral every night at bedtime with melatonin 11/23/2020 01/24/2021 Inactive melatonin 3 mg tablet RxNorm: 986176 Take 1-2 Tablet(s) Oral every night at bedtime 11/18/2020 No Stop Date Active atorvastatin 40 mg tablet RxNorm: 229737 Take 1 Tablet( s) Oral every night at bedtime 11/10/2020 No Stop Date Active Plavix 75 mg tablet RxNorm: 649624 Take 1 Tablet(s) Oral QD No Stop Date Active trazodone 50 mg tablet RxNorm: 004563 Take 1-2 Tablet(s ) Oral QPM as needed for sleep 11/10/2020 11/22/2020 Inactive alprazolam 0.25 mg tablet RxNorm: 205312 1/2-1 Tablet(s ) Oral QPM as needed for sleep 08/03/2020 09/01/2020 Inactive alprazolam 0.25 mg tablet RxNorm: 964097 1/2-1 Tablet(s ) Oral QPM as needed for sleep 08/03/2020 08/02/2020 Inactive Aspirin Low Dose 81 mg tablet,delayed release RxNorm: 888696 1 Tablet(s) Oral QD 09/10/2019 No Stop Date Active losartan 25 mg tablet RxNorm: 710318 1 Tablet(s) Oral QD 09/10/2019 No Stop Date Active carvedilol 6.25 mg tablet RxNorm: 117668 1 Tablet(s) Oral two t imes a day 09/10/2019 11/09/2020 Inactive Fish Oil 1,000 mg (120 mg-180 mg) capsule RxNorm: 1 Caps ule(s) Oral QD 09/10/2019 11/25/2019 Inactive Medication Administered No Medication Administered data Immunizations No Immunization data Results Observation Observation Code Item Item Code Result Date S ervice Location COMPLETE BLOOD COUNT [id number] WBC 6.1 10e9/L 01/26/20 21 Unknown COMPLETE BLOOD COUNT [id number] RBC 3.34 10e12/L 2020 Unknown COMPLETE BLOOD COUNT 9755489 HEMOGLOBIN 8.8 g/dL 01/26/20 21 Unknown COMPLETE BLOOD COUNT [id number] HEMATOCRIT 28.5 % 01/26/20 21 Unknown COMPLETE BLOOD COUNT [id number] MCV 85.3 fL 1 Unknown COMPLETE BLOOD COUNT 0888326 MCH 26.3 pg 1 Unknown COMPLETE BLOOD COUNT 5698492 MCHC 30.9 g/dL 1 Unknown COMPLETE BLOOD COUNT 9982830 PLATELET COUNT 268 10e9/L 07/2020 Unknown COMPLETE BLOOD COUNT [id number] Mean Plt Volume 8.7 fL 07/2020 Unknown COMPLETE BLOOD COUNT 5613442 Neut Auto 67.7 % 1 Unknown COMPLETE BLOOD COUNT [id number] Lymph Auto 19.4 % 01/26/20 21 Unknown COMPLETE BLOOD COUNT [id number] Karnes Auto 8.4 % 1 Unknown COMPLETE BLOOD COUNT [id number] RDW 16.7 % 1 Unknown COMPLETE BLOOD COUNT 1145003 Eos Auto 3.8 % 1 Unknown COMPLETE BLOOD COUNT 8918628 Baso Auto 0.7 % 1 Unknown COMPLETE BLOOD COUNT [id number] Neutrophil Abs 4.13 10e9/L Unknown COMPLETE BLOOD COUNT [id number] Lymphocyte Abs 1.18 10e9/L Unknown COMPLETE BLOOD COUNT [id number] Monocyte Abs 0.51 10e9/L 07/2020 Unknown COMPLETE BLOOD COUNT [id number] Eosinophil Abs 0.23 10e9/L Unknown COMPLETE BLOOD COUNT [id number] RDW-SD 50.9 fL Unknown COMPLETE BLOOD COUNT [id number] Basophil Abs 0.04 10e9/L 07/2020 Unknown GFR CALC 4245927 GFR Non Afr Amr >60 mL/min 01/25/2021 Un known GFR CALC 8271004 GFR Afr Amr >60 mL/min 01/25/2021 Unknow n COMPREHENSIVE METABOLIC 96823 AST 17 U/L 2020 Unknown COMPREHENSIVE METABOLIC 13206 ALT 13 U/L 2020 Unknown COMPREHENSIVE METABOLIC 63376 BUN 14 mg/dL 2020 Unknown COMPREHENSIVE METABOLIC 32279 ALBUMIN 4.1 g/dL 2020 Unknown COMPREHENSIVE METABOLIC 64574 CHLORIDE 102 mmol/L 01/25 Unknown COMPREHENSIVE METABOLIC 08323 Bili Total 0.4 mg/dL 01/25 Unknown COMPREHENSIVE METABOLIC 29960 ALK PHOS 85 U/L 2020 Unknown COMPREHENSIVE METABOLIC 63135 SODIUM 134 mmol/L 01/25 Unknown COMPREHENSIVE METABOLIC 28890 CREATININE 0.71 mg/dL 07/2020 Unknown COMPREHENSIVE METABOLIC 10079 CALCIUM 9.3 mg/dL 2020 Unknown COMPREHENSIVE METABOLIC 40234 POTASSIUM 4.3 mmol/L 01/25 Unknown COMPREHENSIVE METABOLIC 55369 Total Protein 7.0 g/dL Unknown COMPREHENSIVE METABOLIC 92553 Glucose 111 mg/dL 2020 Unknown COMPREHENSIVE METABOLIC 01733 Bicarbonate 24 mmol/L 07/2020 Unknown COMPREHENSIVE METABOLIC 65343 AGAP 8 mmol/L 2020 Unknown COMPREHENSIVE METABOLIC 91250 AST 16 U/L 2019 Unknown COMPREHENSIVE METABOLIC 04461 ALT 12 U/L 2019 Unknown COMPREHENSIVE METABOLIC 16316 BUN 13 mg/dL 2019 Unknown COMPREHENSIVE METABOLIC 45619 ALBUMIN 4.1 g/dL 2019 Unknown COMPREHENSIVE METABOLIC 54205 CHLORIDE 96 mmol/L 2019 Unknown COMPREHENSIVE METABOLIC 18396 Bili Total 1.1 mg/dL 04/09 Unknown COMPREHENSIVE METABOLIC 28754 ALK PHOS 80 U/L 2019 Unknown COMPREHENSIVE METABOLIC 82924 SODIUM 131 mmol/L 04/09 Unknown COMPREHENSIVE METABOLIC 73856 CREATININE 0.76 mg/dL 03/24 Unknown COMPREHENSIVE METABOLIC 20993 CALCIUM 9.0 mg/dL 2019 Unknown COMPREHENSIVE METABOLIC 66842 POTASSIUM 4.2 mmol/L 04/09 Unknown COMPREHENSIVE METABOLIC 02827 Total Protein 6.8 g/dL Unknown COMPREHENSIVE METABOLIC 03272 Glucose 101 mg/dL 2019 Unknown COMPREHENSIVE METABOLIC 41040 Bicarbonate 25 mmol/L 03/24 Unknown COMPREHENSIVE METABOLIC 81490 AGAP 10 mmol/L 2019 Unknown GFR CALC 4810734 GFR Non Afr Amr >60 mL/min 04/09/2020 Un known GFR CALC [id number] GFR Afr Amr >60 mL/min 04/09/2020 Unknow n GAMMA GLUTAMYL TRANSFERASE 39153 GGT 19 U/L Unknown COMPLETE BLOOD COUNT 2396997 WBC 6.3 10e9/L 04/07/20 20 Unknown COMPLETE BLOOD COUNT 0353158 RBC 4.36 10e12/L 2019 Unknown COMPLETE BLOOD COUNT 8205932 HEMOGLOBIN 15.2 g/dL 04/07/20 20 Unknown COMPLETE BLOOD COUNT 7437675 HEMATOCRIT 43.8 % 04/07/20 20 Unknown COMPLETE BLOOD COUNT 9741627 MCV 100.5 fL 0 Unknown COMPLETE BLOOD COUNT 9019915 MCH 34.9 pg 0 Unknown COMPLETE BLOOD COUNT 5043635 MCHC 34.7 g/dL 0 Unknown COMPLETE BLOOD COUNT 0808903 PLATELET COUNT 254 10e9/L Unknown COMPLETE BLOOD COUNT 1918990 Mean Plt Volume 9.9 fL Unknown COMPLETE BLOOD COUNT 9818847 Neut Auto 63.3 % 0 Unknown COMPLETE BLOOD COUNT 2023250 Lymph Auto 24.5 % 04/07/20 20 Unknown COMPLETE BLOOD COUNT 2858512 Karnes Auto 8.4 % 0 Unknown COMPLETE BLOOD COUNT 5736397 RDW 12.8 % 0 Unknown COMPLETE BLOOD COUNT 8087120 Eos Auto 3.2 % 0 Unknown COMPLETE BLOOD COUNT 1901844 Baso Auto 0.6 % 0 Unknown COMPLETE BLOOD COUNT 0338015 Neutrophil Abs 3.99 10e9/L Unknown COMPLETE BLOOD COUNT 6493599 Lymphocyte Abs 1.54 10e9/L Unknown COMPLETE BLOOD COUNT 5279595 Monocyte Abs 0.53 10e9/L 03/24 Unknown COMPLETE BLOOD COUNT 8760165 Eosinophil Abs 0.20 10e9/L Unknown COMPLETE BLOOD COUNT 3430453 RDW-SD 47.6 fL 0 Unknown COMPLETE BLOOD COUNT 4035773 Basophil Abs 0.04 10e9/L 03/24 Unknown VITAMIN B 12 14763 VITAMIN B12 661 pg/mL 04/07/2020 Unkn own LIPID GROUP 07703 Cholesterol 168 mg/dL 09/30/2019 Unkno wn LIPID GROUP 79047 Triglyceride 141 mg/dL 09/30/2019 Unkn own LIPID GROUP 94031 HDL CHOLESTEROL 66 mg/dL 09/30/2019 U nknown LIPID GROUP 54697 Chol/HDL Ratio 2.55 ratio 09/30/2019 U nknown LIPID GROUP 47411 NON-HDL Chol 102 mg/dL 09/30/2019 Unkn own LIPID GROUP 19941 LDL Cholesterol 74 mg/dL 09/30/2019 U nknown FREE T4 57106 T4 Free 0.76 ng/dL 09/30/2019 Unknown THYROID STIMULATING HORMONE 25280 TSH 2.186 uIU/mL 09/30/2019 Unknown GFR CALC 0927836 GFR Non Afr Amr >60 mL/min 09/30/2019 Un known GFR CALC 8618371 GFR Afr Amr >60 mL/min 09/30/2019 Unknow n COMPREHENSIVE METABOLIC 04975 AST 14 U/L 2019 Unknown COMPREHENSIVE METABOLIC 44390 ALT 11 U/L 2019 Unknown COMPREHENSIVE METABOLIC 04659 BUN 15 mg/dL 2019 Unknown COMPREHENSIVE METABOLIC 05211 ALBUMIN 4.0 g/dL 2019 Unknown COMPREHENSIVE METABOLIC 68411 CHLORIDE 96 mmol/L 2019 Unknown COMPREHENSIVE METABOLIC 56026 Bili Total 0.9 mg/dL 09/29 Unknown COMPREHENSIVE METABOLIC 22158 ALK PHOS 72 U/L 2019 Unknown COMPREHENSIVE METABOLIC 50948 SODIUM 132 mmol/L 09/29 Unknown COMPREHENSIVE METABOLIC 67698 CREATININE 0.73 mg/dL 11/2019 Unknown COMPREHENSIVE METABOLIC 23019 CALCIUM 9.1 mg/dL 2019 Unknown COMPREHENSIVE METABOLIC 32393 POTASSIUM 4.6 mmol/L 09/29 Unknown COMPREHENSIVE METABOLIC 34404 Total Protein 6.4 g/dL Unknown COMPREHENSIVE METABOLIC 13430 Glucose 97 mg/dL 2019 Unknown COMPREHENSIVE METABOLIC 15558 Bicarbonate 25 mmol/L 11/2019 Unknown COMPREHENSIVE METABOLIC 27875 AGAP 11 mmol/L 2019 Unknown COMPLETE BLOOD COUNT 2667200 WBC 5.3 10e9/L 09/30/19 20 Unknown COMPLETE BLOOD COUNT 4142241 RBC 4.16 10e12/L 2019 Unknown COMPLETE BLOOD COUNT 0478539 HEMOGLOBIN 14.1 g/dL 09/30/19 20 Unknown COMPLETE BLOOD COUNT 1974748 HEMATOCRIT 42.6 % 09/30/19 20 Unknown COMPLETE BLOOD COUNT 3460605 MCV 102.4 fL 0 Unknown COMPLETE BLOOD COUNT 1994898 MCH 33.9 pg 0 Unknown COMPLETE BLOOD COUNT 1336983 MCHC 33.1 g/dL 0 Unknown COMPLETE BLOOD COUNT 5352771 PLATELET COUNT 273 10e9/L 11/2019 Unknown COMPLETE BLOOD COUNT 9285476 Mean Plt Volume 9.4 fL 11/2019 Unknown COMPLETE BLOOD COUNT 6598890 Neut Auto 57.3 % 0 Unknown COMPLETE BLOOD COUNT 0151506 Lymph Auto 29.3 % 09/30/19 20 Unknown COMPLETE BLOOD COUNT 8789773 Karnes Auto 7.6 % 0 Unknown COMPLETE BLOOD COUNT 1864277 RDW 13.8 % 0 Unknown COMPLETE BLOOD COUNT 2825740 Eos Auto 4.5 % 0 Unknown COMPLETE BLOOD COUNT 2283637 Baso Auto 1.3 % 0 Unknown COMPLETE BLOOD COUNT 3653862 Neutrophil Abs 3.04 10e9/L Unknown COMPLETE BLOOD COUNT 5084375 Lymphocyte Abs 1.55 10e9/L Unknown COMPLETE BLOOD COUNT 1901216 Monocyte Abs 0.40 10e9/L 11/2019 Unknown COMPLETE BLOOD COUNT 1495507 Eosinophil Abs 0.24 10e9/L Unknown COMPLETE BLOOD COUNT 7755183 RDW-SD 50.7 fL 0 Unknown COMPLETE BLOOD COUNT 9241303 Basophil Abs 0.07 10e9/L 11/2019 Unknown Procedures Procedure Codes Date ROUTINE VENIPUNCTURE CPT-4: 24634 01/25/2021 COMPREHEN METABOLIC PANEL CPT-4: 84620 01/25/2021 COMPLETE CBC W/AUTO DIFF WBC CPT-4: 35012 01/25/2021 URINE CULTURE/ COLONY COUNT CPT-4: 37749 01/25/2021 URINALYSIS NONAUTO W/O SCOPE CPT-4: 87828 01/25/2021 ROUTINE VENIPUNCTURE CPT-4: 81286 07/20/2020 COMPREHEN METABOLIC PANEL CPT-4: 25400 07/20/2020 ASSAY OF FREE THYROXINE CPT-4: 21021 07/20/2020 ASSAY THYROID STIM HORMONE CPT-4: 63129 07/20/2020 COMPLETE CBC W/AUTO DIFF WBC CPT-4: 58864 07/20/2020 RBC SED RATE AUTOMATED CPT-4: 15879 07/20/2020 URINALYSIS NONAUTO W/O SCOPE CPT-4: 35174 04/30/2020 URINE CULTURE/ COLONY COUNT CPT-4: 60879 04/30/2020 ROUTINE VENIPUNCTURE CPT-4: 02704 04/07/2020 COMPLETE CBC W/AUTO DIFF WBC CPT-4: 25868 04/07/2020 VITAMIN B-12 CPT-4: 29025 04/07/2020 ASSAY OF GGT CPT-4: 97387 04/07/2020 ROUTINE VENIPUNCTURE CPT-4: 28974 09/30/2019 ASSAY OF FREE THYROXINE CPT-4: 77785 09/30/2019 ASSAY THYROID STIM HORMONE CPT-4: 27047 09/30/2019 COMPREHEN METABOLIC PANEL CPT-4: 68556 09/30/2019 COMPLETE CBC W/AUTO DIFF WBC CPT-4: 18290 09/30/2019 LIPID PANEL CPT-4: 25255 09/30/2019 Vital Signs Date Vital 01/25/2021 Blood Pressure 1: 102/68 Code: 8480-6 Heart Rate 1: 76 bpm Respiratory Rate: 20 bpm SpO2: 100% Temperature: 36.9 (C) / 98.5 (F) We ight: 87 lbs Code: 77969-8 12/30/2020 Blood Pressure 1: 134/80 Code: 8480-6 BMI: 14.1 Code: 87431-9 Heart Rate 1: 72 bpm Height: 5'5" Code: 8302-2 Respiratory Rate: 18 bpm SpO2: 97% Temperature: 36.6 (C) / 97.8 (F) Weight: 85 lbs Code: 15403-9 11/10/2020 Blood Pressure 1: 130/74 Code: 8480-6 Heart Rate 1: 56 bpm Respiratory Rate: 20 bpm SpO2: 98% Temperature: 36.3 (C) / 97.4 (F) We ight: 85 lbs Code: 41901-9 07/29/2020 Blood Pressure 1: 121/65 Code: 8480-6 BMI: 14.3 Code: 26371-7 Heart Rate 1: 58 bpm Height: 5'5" Code: 8302-2 Respiratory Rate: 15 bpm SpO2: 98% Temperature: 36.9 (C) / 98.4 (F) Weight: 86 lbs Code: 27463-5 07/20/2020 Blood Pressure 1: 123/69 Code: 8480-6 Heart Rate 1: 68 bpm Respiratory Rate: 15 bpm SpO2: 99% Temperature: 36.6 (C) / 97.8 (F) We ight: 83 lbs Code: 47831-6 04/30/2020 Blood Pressure 1: 128/82 Code: 8480-6 Heart Rate 1: 68 bpm Respiratory Rate: 20 bpm SpO2: 95% Temperature: 36.5 (C) / 97.7 (F) We ight: 91 lbs Code: 44173-4 04/09/2020 Blood Pressure 1: 130/78 Code: 8480-6 Heart Rate 1: 68 bpm Respiratory Rate: 20 bpm SpO2: 99% Temperature: 36.3 (C) / 97.4 (F) We ight: 90 lbs Code: 70946-7 11/22/2019 Temperature: 36.3 (C) / 97.3 (F) 09/10/2019 Blood Pressure 1: 128/72 Code: 8480-6 BMI: 15.6 Code: 43579-9 Heart Rate 1: 68 bpm Height: 5'5" Code: 8302-2 Respiratory Rate: 20 bpm SpO2: 97% Temperature: 36.6 (C) / 97.9 (F) Weight: 94 lbs Code: 09556-9 Functional Status No Functional Status data Reason [...] visit Encounters Encounter Performer Location Codes Date ([id number]) OFFICE/OUTPATIENT VISIT EST Diagnosis: Fatigue[ICD10: R53.83] Diagnosis: Blood loss anemia[ICD10: D50.0] Diagnosis: Coronary artery disease[ICD10: I25.10] Diagnosis: Hematuria[ICD10: R31.9] Ericka CHANCE KatherineNilda [employer] CPT-4: 37421 01/25/2021 ([id number]) OFFICE/OUTPATIENT VISIT EST Diagnosis: GERD (gastroesophageal reflux disease)[ICD10: K21.9] Diagnosis: Duodenal ulcer[ICD10: K26.9] Diagnosis: Coronary artery disease[ICD10: I25.10] Diagnosis: Anxiety[ICD10: F41.9] Diagnosis: Blood loss anemia[ICD10: D50.0] Ericka CHANCE KatherineiNlda [employer] CPT-4: 37278 12/30/2020 ([id number]) NURSE/OUTPATIENT VISIT EST Diagnosis: Edema[ICD10: R60.9] Ericka WEEMSQUELINE KatherineNilda [employer] CPT-4: 90436 12/21/2020 ([id number]) OFFICE/OUTPATIENT VISIT EST Diagnosis: Coronary artery disease[ICD10: I25.10] Diagnosis: Essential (primary) hypertension[ICD10: I10] Diagnosis: Stress reaction[ICD10: F43.0] Diagnosis: Insomnia[ICD10: G47.00] Diagnosis: Pulmonary nodule[ICD10: R91.1] Ericka CHANCE Katherine Nilda [employer] CPT-4: 71081 11/10/2020 ([id number]) NO CHARGE Diagnosis: Mass of upper lobe of right lung[ICD10: R91.8] Ericka MCCORMICK DO [facility] CPT-4: 34740 07/29/2020 ([id number]) OFFICE/OUTPATIENT VISIT EST Diagnosis: Fatigue[ICD10: R53.83] Diagnosis: Lymphadenopathy of head and neck[ICD10: R59.1] Diagnosis: Weight loss, non-intentional[ICD10: R63.4] Diagnosis: History of melanoma[ICD10: Z85.820] Diagnosis: Skin lesion[ICD10: L98.9] Sara NUNEZ [employer] CPT-4: 61500 07/20/2020 ([id number]) OFFICE/OUTPATIENT VISIT EST Diagnosis: Urinary tract infection[ICD10: N39.0] Meena Ferreiradi MICHOACANO MCCORMICK [employer] CPT-4: 58903 04/30/2020 ([id number]) OFFICE/OUTPATIENT VISIT EST Diagnosis: Dizziness[ICD10: R42] Diagnosis: Depressed mood with feeling of loneliness[ICD10: F32.9] Diagnosis: Insomnia[ICD10: G47.00] Ericka CHANEL [employer] CPT-4: 29464 04/09/2020 ([id number]) NURSE/OUTPATIENT VISIT EST Diagnosis: Coronary artery disease[ICD10: I25.10] Diagnosis: Fatigue[ICD10: R53.83] Diagnosis: Essential (primary) hypertension[ICD10: I10] Ericka Garcíacurtispromise MCCORMICK [employer] CPT-4: 67720 04/07/2020 ([id number]) OFFICE/OUTPATIENT VISIT EST Diagnosis: Fatigue[ICD10: R53.83] Meena Li [facility] CPT-4: 29118 11/22/2019 ([id number]) NURSE/OUTPATIENT VISIT EST Diagnosis: Essential (primary) hypertension[ICD10: I10] Diagnosis: Coronary artery disease[ICD10: I25.10] Diagnosis: Encounter for general adult medical examination with abnormal findings[ICD10: Z00.01] Ericka Garcíadeysi ERICKA MurphyNilda CHELY [employer] CPT-4: 45724 09/30/2019 ([id number]) OFFICE/OUTPATIENT VISIT NEW Diagnosis: Essential (primary) hypertension[ICD10: I10] Diagnosis: Coronary artery disease[ICD10: I25.10] Diagnosis: Aortic valve stenosis with insufficiency[ICD10: I35.2] Ericka MCCORMICK DO [facility] CPT-4: 63123 09/10/2019 Plan of Care Planned Activity Notes Codes Status Date Visit Diagnosis Plan: Hematuria Discussion: Culture ur ine ICD-9 : 599.70 ICD-10 : R31.9 01/25/2021 Visit Diagnosis Plan: Blood loss anemia Discussion: Ch real CBC now ICD-9 : 280.0 ICD-10 : D50.0 01/25/2021 Appointment: Ericka Mccormick WPtel: [address] [place] [address] ACUTE ILLNESS 01/25/2021 Appointment: Sara Aguila WPtel: [address] [place] [address] US CANCELED 01/01/2021 Visit Diagnosis Plan: Anxiety [...] : K21.9 12/30/2020 Appointment: Ericka Mccormick WPtel: [address] [place], [place] [phone] US FOLLOW UP 12/30/2020 Appointment: Ericka Mccormick WPtel: [address] [place], [place] [phone] NURSE SERVICES 12/21/2020 Visit Diagnosis Plan: Insomnia [...] : F43.0 11/10/2020 Appointment: Ericka Mccormick WPtel: [facility] FOLLOW UP 11/10/2020 Patient Education: trazodone- Optimize[employer] Coupon [phone] [email or web address] Completed 11/10/2020 Visit Diagnosis Plan: Mass of upper lobe of right lung Discussion: CT scan of lung results discussed with patient and told this looks like cancer Agrees to see pulmonology to see if will be amenable to bronchoscopy to get cells/washings ICD-9 : 786.6 ICD-10 : R91.8 07/29/2020 Appointment: Ericka Mccormick WPtel: [facility] [facility] 07/29/2020 Care Plan: Referral Order SNOMED-CT : [id number] Pending 07/29/2020 Care Plan: CT SFT TSUE NCK W/O & W/DYE L OINC : 42695-7 Pending 07/21/2020 Visit Diagnosis Plan: Fatigue Discussion: [...] 07/20/2020 Appointment: Mingo Sara WPtel: [phone] [facility] ACUTE ILLNESS 07/20/2020 Patient Education: Patient Medication [...] : N39.0 04/30/2020 Appointment: Meena Li [address] [place], [place] [phone] ACUTE ILLNESS 04/30/2020 Appointment: Meena Li [address] [place] [address] 04/21/2020 1020---patient needed seen fo r appointment [...] : F32.9 04/09/2020 Appointment: Ericka Mccormick WPtel: [phone] [facility] FOLLOW UP 04/09/2020 Care Plan: COMPREH[place] : [address]-8 Pending 04/09/2020 Appointment: Ericka Mccormick WPtel: [address] [place], [place] [phone] US LAB 04/07/2020 Visit Diagnosis Plan: Fatigue Discussion: no other sym ptoms other than fatigue for 4 weeks so will update labs. order sent [place] [facility] [place] blood work and ua with c&s. instructed to call office with new or worsening symptoms. ICD-9 : 780.79 ICD-10 : R53.83 11/22/2019 Appointment: Meena Li [address] [place] [address] TELEMEDICINE 11/22/2019 Appointment: Ericka Mccormick WPtel: [address] [place] [address] US LAB 09/30/2019 Visit Diagnosis Plan: Coronary [...] : I10 09/10/2019 Appointment: Ericka Mccormick WPtel: [address] [place], [place] [phone] NEW PATIENT 09/10/2019 Patient Education: carvedilol- Opt[employer]RX Coupon [phone] [email or web address] Completed 09/10/2019 Appointment: Ericka Mccormick WPtel: [address] [place], [place] [address] RESCHEDULED 08/20/2019 Appointment: Ericka Mccormicktel: [phone] [id number] US CANCELED 07/22/2019 Referral: Vikram Maguire WPtel: [address] [facility] [address] [id number] [place] Referral Appointment Requested Instructions No Instructions Medical Equipment No Medical Equipment data Health Concerns Section Health Concerns data not found Goals Section Goals data not found Interventions Section Interventions data not found Health Status Evaluations/Outcomes Section Health Status Evaluations/Outcomes data not found Advance Directives No Advance Directive data
--- OUTSIDE RECORDS SUMMARY | 2021-02-15 18:53 | XMS REPORT | CCD ---
Author Author Erica Mccormick D.O. 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 Name Role Phone PP Unavailable CCM Unavailable Summary Purpose Interface Exchange Insurance Providers Payer name Policy type / Coverage type Covered alliance party ID Effective Begin Date Effective End Date WPS MEDICARE PART B [place] Medicare Part B [id number] Unknown Unknown BLUE [employer] [place] MEDIC[place] SU[place] Medicare Part B X [id number] Unknown Unknown Family History Family History data not found Social History Social History Element Codes Description Effective Dates Marital status Unknown 09/10/2019 Number of children Unknown 1 09/10/2019 Employment Unknown Retired 09/10/[address]: 4224421 Former smoker quit 201109/10/[address]: 184617 Currently drinks alcohol 09/09 Frequency of drinks SNOMED CT: 765654453 1-4 drinks per week Allergies, Adverse Reactions, [...] 325 mg (65 mg iron) tablet RxNorm: 136798 Take 1 Tablet(s) Oral QD 01/28/2021 No Stop Date Active paroxetine 20 mg tablet RxNorm: 1592164 1 Tablet(s) Oral QD 01/20/2021 Inactive pantoprazole 20 mg tablet,delayed release RxNorm: 323622 1 Tablet(s) Oral two times a day 12/22/2020 03/21/2021 Active pantoprazole 20 mg tablet,delayed release RxNorm: 967947 1 Tablet(s) Oral two times a day 12/22/2020 12/22/2020 Inactive paroxetine 20 mg tablet RxNorm: 2015797 1 Tablet(s) Oral QD 12/15/2020 Inactive paroxetine 20 mg tablet RxNorm: 3811423 1 Tablet(s) Oral QD 12/15/2020 Inactive MagOx 400 mg (241.3 mg magnesium) tablet RxNorm: 140171 Take 1 Tablet(s) Oral every night at bedtime with melatonin 11/23/2020 01/24/2021 Inactive melatonin 3 mg tablet RxNorm: 769604 Take 1-2 Tablet(s) Oral every night at bedtime 11/18/2020 No Stop Date Active atorvastatin 40 mg tablet RxNorm: 540018 Take 1 Tablet( s) Oral every night at bedtime 11/10/2020 No Stop Date Active Plavix 75 mg tablet RxNorm: 205896 Take 1 Tablet(s) Oral QD No Stop Date Active trazodone 50 mg tablet RxNorm: 649855 Take 1-2 Tablet(s ) Oral QPM as needed for sleep 11/10/2020 11/22/2020 Inactive alprazolam 0.25 mg tablet RxNorm: 671866 1/2-1 Tablet(s ) Oral QPM as needed for sleep 08/03/2020 09/01/2020 Inactive alprazolam 0.25 mg tablet RxNorm: 651031 1/2-1 Tablet(s ) Oral QPM as needed for sleep 08/03/2020 08/02/2020 Inactive Aspirin Low Dose 81 mg tablet,delayed release RxNorm: 129708 1 Tablet(s) Oral QD 09/10/2019 No Stop Date Active losartan 25 mg tablet RxNorm: 808114 1 Tablet(s) Oral QD 09/10/2019 No Stop Date Active carvedilol 6.25 mg tablet RxNorm: 172466 1 Tablet(s) Oral two t imes a day 09/10/2019 11/09/2020 Inactive Fish Oil 1,000 mg (120 mg-180 mg) capsule RxNorm: 1 Caps ule(s) Oral QD 09/10/2019 11/25/2019 Inactive Medication Administered No Medication Administered data Immunizations No Immunization data Results Observation Observation Code Item Item Code Result Date S ervice Location UA W/MICR 50038 UA Protein TNP:Specimen Integrity 01/27 Unknown UA W/MICR 18578 UA Hemoglobin TNP:Specimen Integrity Unknown UA W/MICR 24841 UA Glucose TNP:Specimen Integrity 01/27 Unknown UA W/MICR 06958 UA Ketones TNP:Specimen Integrity 01/27 Unknown UA W/MICR 36985 UA pH TNP:Specimen Integrity 2020 Unknown UA W/MICR 59149 U Spec [place] TNP:Specimen Integrity 1 Unknown UA W/MICR 76922 UA Bilirubin TNP:Specimen Integrity 09/2020 Unknown UA W/MICR 27324 UA Leuk [place] TNP:Specimen Integrity 01/27/2021 Unknown UA W/MICR 97767 UA Nitrite TNP:Specimen Integrity 01/27 Unknown UA W/MICR 38566 UA WBC/hpf TNP:Specimen Integrity 01/27 Unknown UA W/MICR 01746 UA RBC hpf TNP:Specimen Integrity 01/27 Unknown COMPLETE BLOOD COUNT [id number] WBC 6.1 10e9/L 01/26/20 21 Unknown COMPLETE BLOOD COUNT [id number] RBC 3.34 10e12/L 2020 Unknown COMPLETE BLOOD COUNT [id number] HEMOGLOBIN 8.8 g/dL 01/26/20 21 Unknown COMPLETE BLOOD COUNT [id number] HEMATOCRIT 28.5 % 01/26/20 21 Unknown COMPLETE BLOOD COUNT [id number] MCV 85.3 fL Unknown COMPLETE BLOOD COUNT [id number] MCH 26.3 pg 10/04/202 1 Unknown COMPLETE BLOOD COUNT 5698802 MCHC 30.9 g/dL 1 Unknown COMPLETE BLOOD COUNT 1429036 PLATELET COUNT 268 10e9/L 07/2020 Unknown COMPLETE BLOOD COUNT [id number] Mean Plt Volume 8.7 fL 07/2020 Unknown COMPLETE BLOOD COUNT [id number] Neut Auto 67.7 % 1 Unknown COMPLETE BLOOD COUNT [id number] Lymph Auto 19.4 % 01/26/20 21 Unknown COMPLETE BLOOD COUNT [id number] [place] Auto 8.4 % 1 Unknown COMPLETE BLOOD COUNT 5665179 RDW 16.7 % 1 Unknown COMPLETE BLOOD COUNT 1932132 Eos Auto 3.8 % 1 Unknown COMPLETE BLOOD COUNT 1987078 Baso Auto 0.7 % 1 Unknown COMPLETE BLOOD COUNT [id number] Neutrophil Abs 4.13 10e9/L Unknown COMPLETE BLOOD COUNT [id number] Lymphocyte Abs 1.18 10e9/L Unknown COMPLETE BLOOD COUNT [id number] Monocyte Abs 0.51 10e9/L 07/2020 Unknown COMPLETE BLOOD COUNT 8249794 Eosinophil Abs 0.23 10e9/L Unknown COMPLETE BLOOD COUNT 2066506 RDW-SD 50.9 fL 1 Unknown COMPLETE BLOOD COUNT [id number] Basophil Abs 0.04 10e9/L 07/2020 Unknown GFR CALC [id number] GFR Non Afr Amr >60 mL/min 01/25/2021 Un known GFR CALC [id number] GFR Afr Amr >60 mL/min 01/25/2021 Unknow n COMPREHENSIVE METABOLIC 32588 AST 17 U/L 2020 Unknown COMPREHENSIVE METABOLIC 56510 ALT 13 U/L 2020 Unknown COMPREHENSIVE METABOLIC 53927 BUN 14 mg/dL 2020 Unknown COMPREHENSIVE METABOLIC 61141 ALBUMIN 4.1 g/dL 2020 Unknown COMPREHENSIVE METABOLIC 55891 CHLORIDE 102 mmol/L 01/25 Unknown COMPREHENSIVE METABOLIC 66690 Bili Total 0.4 mg/dL 01/25 Unknown COMPREHENSIVE METABOLIC 23677 ALK PHOS 85 U/L 2020 Unknown COMPREHENSIVE METABOLIC 83376 SODIUM 134 mmol/L 01/25 Unknown COMPREHENSIVE METABOLIC 56728 CREATININE 0.71 mg/dL 07/2020 Unknown COMPREHENSIVE METABOLIC 71645 CALCIUM 9.3 mg/dL 2020 Unknown COMPREHENSIVE METABOLIC 69900 POTASSIUM 4.3 mmol/L 01/25 Unknown COMPREHENSIVE METABOLIC 17068 Total Protein 7.0 g/dL Unknown COMPREHENSIVE METABOLIC 33775 Glucose 111 mg/dL 2020 Unknown COMPREHENSIVE METABOLIC 45693 Bicarbonate 24 mmol/L 07/2020 Unknown COMPREHENSIVE METABOLIC 16283 AGAP 8 mmol/L 2020 Unknown COMPREHENSIVE METABOLIC 54546 AST 16 U/L 2019 Unknown COMPREHENSIVE METABOLIC 79351 ALT 12 U/L 2019 Unknown COMPREHENSIVE METABOLIC 78702 BUN 13 mg/dL 2019 Unknown COMPREHENSIVE METABOLIC 92734 ALBUMIN 4.1 g/dL 2019 Unknown COMPREHENSIVE METABOLIC 01550 CHLORIDE 96 mmol/L 2019 Unknown COMPREHENSIVE METABOLIC 96670 Bili Total 1.1 mg/dL 04/09 Unknown COMPREHENSIVE METABOLIC 83687 ALK PHOS 80 U/L 2019 Unknown COMPREHENSIVE METABOLIC 30785 SODIUM 131 mmol/L 04/09 Unknown COMPREHENSIVE METABOLIC 29416 CREATININE 0.76 mg/dL 03/24 Unknown COMPREHENSIVE METABOLIC 36831 CALCIUM 9.0 mg/dL 2019 Unknown COMPREHENSIVE METABOLIC 89073 POTASSIUM 4.2 mmol/L 04/09 Unknown COMPREHENSIVE METABOLIC 63929 Total Protein 6.8 g/dL Unknown COMPREHENSIVE METABOLIC 22083 Glucose 101 mg/dL 2019 Unknown COMPREHENSIVE METABOLIC 40518 Bicarbonate 25 mmol/L 03/24 Unknown COMPREHENSIVE METABOLIC 30517 AGAP 10 mmol/L 2019 Unknown GFR CALC [id number] GFR Non Afr Amr >60 mL/min 04/09/2020 Un known GFR CALC [id number] GFR Afr Amr >60 mL/min 04/09/2020 Unknow n GAMMA GLUTAMYL TRANSFERASE 20532 GGT 19 U/L Unknown COMPLETE BLOOD COUNT 0533877 WBC 6.3 10e9/L 04/07/20 20 Unknown COMPLETE BLOOD COUNT 6029892 RBC 4.36 10e12/L 2019 Unknown COMPLETE BLOOD COUNT 3475536 HEMOGLOBIN 15.2 g/dL 04/07/20 20 Unknown COMPLETE BLOOD COUNT 0085651 HEMATOCRIT 43.8 % 04/07/20 20 Unknown COMPLETE BLOOD COUNT 8897769 MCV 100.5 fL 0 Unknown COMPLETE BLOOD COUNT 5039962 MCH 34.9 pg 0 Unknown COMPLETE BLOOD COUNT 5006527 MCHC 34.7 g/dL 0 Unknown COMPLETE BLOOD COUNT 5562436 PLATELET COUNT 254 10e9/L Unknown COMPLETE BLOOD COUNT 0107522 Mean Plt Volume 9.9 fL Unknown COMPLETE BLOOD COUNT 1256654 Neut Auto 63.3 % 0 Unknown COMPLETE BLOOD COUNT 9328369 Lymph Auto 24.5 % 04/07/20 20 Unknown COMPLETE BLOOD COUNT 1286425 [place] Auto 8.4 % 0 Unknown COMPLETE BLOOD COUNT 4955664 RDW 12.8 % 0 Unknown COMPLETE BLOOD COUNT 1739914 Eos Auto 3.2 % 0 Unknown COMPLETE BLOOD COUNT 7508822 Baso Auto 0.6 % 0 Unknown COMPLETE BLOOD COUNT 7165328 Neutrophil Abs 3.99 10e9/L Unknown COMPLETE BLOOD COUNT 4023807 Lymphocyte Abs 1.54 10e9/L Unknown COMPLETE BLOOD COUNT 8856182 Monocyte Abs 0.53 10e9/L 03/24 Unknown COMPLETE BLOOD COUNT 4094724 Eosinophil Abs 0.20 10e9/L Unknown COMPLETE BLOOD COUNT 6612692 RDW-SD 47.6 fL 0 Unknown COMPLETE BLOOD COUNT 5943237 Basophil Abs 0.04 10e9/L 03/24 Unknown VITAMIN B 12 78810 VITAMIN B12 661 pg/mL 04/07/2020 Unkn own LIPID GROUP 48240 Cholesterol 168 mg/dL 09/30/2019 Unkno wn LIPID GROUP 10637 Triglyceride 141 mg/dL 09/30/2019 Unkn own LIPID GROUP 27196 HDL CHOLESTEROL 66 mg/dL 09/30/2019 U nknown LIPID GROUP 68902 Chol/HDL Ratio 2.55 ratio 09/30/2019 U nknown LIPID GROUP 19774 NON-HDL Chol 102 mg/dL 09/30/2019 Unkn own LIPID GROUP 52220 LDL Cholesterol 74 mg/dL 09/30/2019 U nknown FREE T4 52333 T4 Free 0.76 ng/dL 09/30/2019 Unknown THYROID STIMULATING HORMONE 94636 TSH 2.186 uIU/mL 09/30/2019 Unknown GFR CALC 4311137 GFR Non Afr Amr >60 mL/min 09/30/2019 Un known GFR CALC 1845182 GFR Afr Amr >60 mL/min 09/30/2019 Unknow n COMPREHENSIVE METABOLIC 69438 AST 14 U/L 2019 Unknown COMPREHENSIVE METABOLIC 21396 ALT 11 U/L 2019 Unknown COMPREHENSIVE METABOLIC 57472 BUN 15 mg/dL 2019 Unknown COMPREHENSIVE METABOLIC 73383 ALBUMIN 4.0 g/dL 2019 Unknown COMPREHENSIVE METABOLIC 01087 CHLORIDE 96 mmol/L 2019 Unknown COMPREHENSIVE METABOLIC 28070 Bili Total 0.9 mg/dL 09/29 Unknown COMPREHENSIVE METABOLIC 81635 ALK PHOS 72 U/L 2019 Unknown COMPREHENSIVE METABOLIC 25764 SODIUM 132 mmol/L 09/29 Unknown COMPREHENSIVE METABOLIC 73359 CREATININE 0.73 mg/dL 11/2019 Unknown COMPREHENSIVE METABOLIC 07351 CALCIUM 9.1 mg/dL 2019 Unknown COMPREHENSIVE METABOLIC 05831 POTASSIUM 4.6 mmol/L 09/29 Unknown COMPREHENSIVE METABOLIC 05180 Total Protein 6.4 g/dL Unknown COMPREHENSIVE METABOLIC 85105 Glucose 97 mg/dL 2019 Unknown COMPREHENSIVE METABOLIC 75149 Bicarbonate 25 mmol/L 11/2019 Unknown COMPREHENSIVE METABOLIC 89407 AGAP 11 mmol/L 2019 Unknown COMPLETE BLOOD COUNT 0562098 WBC 5.3 10e9/L 09/30/19 20 Unknown COMPLETE BLOOD COUNT 0598890 RBC 4.16 10e12/L 2019 Unknown COMPLETE BLOOD COUNT 3486568 HEMOGLOBIN 14.1 g/dL 09/30/19 20 Unknown COMPLETE BLOOD COUNT 5548498 HEMATOCRIT 42.6 % 09/30/19 20 Unknown COMPLETE BLOOD COUNT 5280892 MCV 102.4 fL 0 Unknown COMPLETE BLOOD COUNT 1830816 MCH 33.9 pg 0 Unknown COMPLETE BLOOD COUNT 6943970 MCHC 33.1 g/dL 0 Unknown COMPLETE BLOOD COUNT 9905162 PLATELET COUNT 273 10e9/L 11/2019 Unknown COMPLETE BLOOD COUNT 6208297 Mean Plt Volume 9.4 fL 11/2019 Unknown COMPLETE BLOOD COUNT 7231708 Neut Auto 57.3 % 0 Unknown COMPLETE BLOOD COUNT 2415689 Lymph Auto 29.3 % 09/30/19 20 Unknown COMPLETE BLOOD COUNT 7906898 [place] Auto 7.6 % 0 Unknown COMPLETE BLOOD COUNT 8711658 RDW 13.8 % 0 Unknown COMPLETE BLOOD COUNT 6736472 Eos Auto 4.5 % 0 Unknown COMPLETE BLOOD COUNT 4804458 Baso Auto 1.3 % 0 Unknown COMPLETE BLOOD COUNT 3469266 Neutrophil Abs 3.04 10e9/L Unknown COMPLETE BLOOD COUNT 9656629 Lymphocyte Abs 1.55 10e9/L Unknown COMPLETE BLOOD COUNT 0535260 Monocyte Abs 0.40 10e9/L 11/2019 Unknown COMPLETE BLOOD COUNT 8706372 Eosinophil Abs 0.24 10e9/L Unknown COMPLETE BLOOD COUNT 6172524 RDW-SD 50.7 fL 0 Unknown COMPLETE BLOOD COUNT 1126109 Basophil Abs 0.07 10e9/L 11/2019 Unknown Procedures Procedure Codes Date URINE CULTURE/ COLONY COUNT CPT-4: 16537 02/02/2021 ROUTINE VENIPUNCTURE CPT-4: 46586 01/25/2021 COMPREHEN METABOLIC PANEL CPT-4: 79700 01/25/2021 COMPLETE CBC W/AUTO DIFF WBC CPT-4: 37574 01/25/2021 URINE CULTURE/ COLONY COUNT CPT-4: 40257 01/25/2021 URINALYSIS NONAUTO W/O SCOPE CPT-4: 50836 01/25/2021 ROUTINE VENIPUNCTURE CPT-4: 73202 07/20/2020 COMPREHEN METABOLIC PANEL CPT-4: 01820 07/20/2020 ASSAY OF FREE THYROXINE CPT-4: 61143 07/20/2020 ASSAY THYROID STIM HORMONE CPT-4: 66131 07/20/2020 COMPLETE CBC W/AUTO DIFF WBC CPT-4: 69469 07/20/2020 RBC SED RATE AUTOMATED CPT-4: 79752 07/20/2020 URINALYSIS NONAUTO W/O SCOPE CPT-4: 80335 04/30/2020 URINE CULTURE/ COLONY COUNT CPT-4: 81980 04/30/2020 ROUTINE VENIPUNCTURE CPT-4: 39975 04/07/2020 COMPLETE CBC W/AUTO DIFF WBC CPT-4: 53807 04/07/2020 VITAMIN B-12 CPT-4: 42210 04/07/2020 ASSAY OF GGT CPT-4: 72172 04/07/2020 ROUTINE VENIPUNCTURE CPT-4: 94072 09/30/2019 ASSAY OF FREE THYROXINE CPT-4: 44531 09/30/2019 ASSAY THYROID STIM HORMONE CPT-4: 12682 09/30/2019 COMPREHEN METABOLIC PANEL CPT-4: 56271 09/30/2019 COMPLETE CBC W/AUTO DIFF WBC CPT-4: 27846 09/30/2019 LIPID PANEL CPT-4: 34983 09/30/2019 Vital Signs Date Vital 01/25/2021 Blood Pressure 1: 102/68 Code: 8480-6 Heart Rate 1: 76 bpm Respiratory Rate: 20 bpm SpO2: 100% Temperature: 36.9 (C) / 98.5 (F) We ight: 87 lbs Code: 75605-9 12/30/2020 Blood Pressure 1: 134/80 Code: 8480-6 BMI: 14.1 Code: 59601-0 Heart Rate 1: 72 bpm Height: 5'5" Code: 8302-2 Respiratory Rate: 18 bpm SpO2: 97% Temperature: 36.6 (C) / 97.8 (F) Weight: 85 lbs Code: 05793-6 11/10/2020 Blood Pressure 1: 130/74 Code: 8480-6 Heart Rate 1: 56 bpm Respiratory Rate: 20 bpm SpO2: 98% Temperature: 36.3 (C) / 97.4 (F) We ight: 85 lbs Code: 58528-3 07/29/2020 Blood Pressure 1: 121/65 Code: 8480-6 BMI: 14.3 Code: 29896-8 Heart Rate 1: 58 bpm Height: 5'5" Code: 8302-2 Respiratory Rate: 15 bpm SpO2: 98% Temperature: 36.9 (C) / 98.4 (F) Weight: 86 lbs Code: 90914-7 07/20/2020 Blood Pressure 1: 123/69 Code: 8480-6 Heart Rate 1: 68 bpm Respiratory Rate: 15 bpm SpO2: 99% Temperature: 36.6 (C) / 97.8 (F) We ight: 83 lbs Code: 15987-7 04/30/2020 Blood Pressure 1: 128/82 Code: 8480-6 Heart Rate 1: 68 bpm Respiratory Rate: 20 bpm SpO2: 95% Temperature: 36.5 (C) / 97.7 (F) We ight: 91 lbs Code: 49743-8 04/09/2020 Blood Pressure 1: 130/78 Code: 8480-6 Heart Rate 1: 68 bpm Respiratory Rate: 20 bpm SpO2: 99% Temperature: 36.3 (C) / 97.4 (F) We ight: 90 lbs Code: 07414-0 11/22/2019 Temperature: 36.3 (C) / 97.3 (F) 09/10/2019 Blood Pressure 1: 128/72 Code: 8480-6 BMI: 15.6 Code: 47541-2 Heart Rate 1: 68 bpm Height: 5'5" Code: 8302-2 Respiratory Rate: 20 bpm SpO2: 97% Temperature: 36.6 (C) / 97.9 (F) Weight: 94 lbs Code: 64058-6 Functional Status No Functional Status data Reason [...] Urinary tract infection[ICD10: N39.0] Robson MCCORMICK DO [facility] CPT-4: 72505 02/02/2021 ([id number]) OFFICE/OUTPATIENT VISIT EST Diagnosis: Fatigue[ICD10: R53.83] Diagnosis: Blood loss anemia[ICD10: D50.0] Diagnosis: Coronary artery disease[ICD10: I25.10] Diagnosis: Hematuria[ICD10: R31.9] Robson CHANEL [facility] CPT-4: 04757 01/25/2021 ([id number]) OFFICE/OUTPATIENT VISIT EST Diagnosis: GERD (gastroesophageal reflux disease)[ICD10: K21.9] Diagnosis: Duodenal ulcer[ICD10: K26.9] Diagnosis: Coronary artery disease[ICD10: I25.10] Diagnosis: Anxiety[ICD10: F41.9] Diagnosis: Blood loss anemia[ICD10: D50.0] Robson MCCORMICK [facility] CPT-4: 09866 12/30/2020 ([id number]) NURSE/OUTPATIENT VISIT EST Diagnosis: Edema[ICD10: R60.9] Robson MCCORMICK [facility] CPT-4: 46613 12/21/2020 ([id number]) OFFICE/OUTPATIENT VISIT EST Diagnosis: Coronary artery disease[ICD10: I25.10] Diagnosis: Essential (primary) hypertension[ICD10: I10] Diagnosis: Stress reaction[ICD10: F43.0] Diagnosis: Insomnia[ICD10: G47.00] Diagnosis: Pulmonary nodule[ICD10: R91.1] Robson MCCORMICK [facility] CPT-4: 35751 11/10/2020 ([id number]) NO CHARGE Diagnosis: Mass of upper lobe of right lung[ICD10: R91.8] Robson MCCORMICK [facility] CPT-4: 69171 07/29/2020 ([id number]) OFFICE/OUTPATIENT VISIT EST Diagnosis: Fatigue[ICD10: R53.83] Diagnosis: Lymphadenopathy of head and neck[ICD10: R59.1] Diagnosis: Weight loss, non-intentional[ICD10: R63.4] Diagnosis: History of melanoma[ICD10: Z85.820] Diagnosis: Skin lesion[ICD10: L98.9] Sara Aguila [facility]UNE[facility] CPT-4: 82884 07/20/2020 ([id number]) OFFICE/OUTPATIENT VISIT EST Diagnosis: Urinary tract infection[ICD10: N39.0] Meena MCCORMICK DO [facility] CPT-4: 79575 04/30/2020 ([id number]) OFFICE/OUTPATIENT VISIT EST Diagnosis: Dizziness[ICD10: R42] Diagnosis: Depressed mood with feeling of loneliness[ICD10: F32.9] Diagnosis: Insomnia[ICD10: G47.00] Robson CHANEL [facility] CPT-4: 12160 04/09/2020 ([id number]) NURSE/OUTPATIENT VISIT EST Diagnosis: Coronary artery disease[ICD10: I25.10] Diagnosis: Fatigue[ICD10: R53.83] Diagnosis: Essential (primary) hypertension[ICD10: I10] Robson MCCORMICK [facility] CPT-4: 82198 04/07/2020 ([id number]) OFFICE/OUTPATIENT VISIT EST Diagnosis: Fatigue[ICD10: R53.83] Meena Li [facility] CPT-4: 58159 11/22/2019 ([id number]) NURSE/OUTPATIENT VISIT EST Diagnosis: Essential (primary) hypertension[ICD10: I10] Diagnosis: Coronary artery disease[ICD10: I25.10] Diagnosis: Encounter for general adult medical examination with abnormal findings[ICD10: Z00.01] Robson MCCORMICK [facility] CPT-4: 98938 09/30/2019 ([id number]) OFFICE/OUTPATIENT VISIT NEW Diagnosis: Essential (primary) hypertension[ICD10: I10] Diagnosis: Coronary artery disease[ICD10: I25.10] Diagnosis: Aortic valve stenosis with insufficiency[ICD10: I35.2] Robson MCCORMICK [facility] CPT-4: 42740 09/10/2019 Plan of Care Planned Activity Notes Codes Status Date Care Plan: UA W/MICR ADD ON ORDER LOINC : 18895-3 Pending 01/26/2021 Visit Diagnosis Plan: Hematuria Discussion: Culture ur ine ICD-9 : 599.70 ICD-10 : R31.9 01/25/2021 Visit Diagnosis Plan: Blood loss anemia Discussion: Ch real CBC now ICD-9 : 280.0 ICD-10 : D50.0 01/25/2021 Appointment: Robson Mccormick WPtel: [address] [place], [place] [phone] ACUTE ILLNESS 01/25/2021 Appointment[facility] [phone] [id number] [facility] 01/01/2021 Visit Diagnosis [...] : K21.9 12/30/2020 Appointment: Robson Mccormick WPtel: [address] [place], [place] [phone] FOLLOW UP 12/30/2020 Appointment: Robson Mccormick WPtel: [address] [place], [place] [phone] NURSE SERVICES 12/21/2020 Visit Diagnosis Plan: Insomnia [...] : F43.0 11/10/2020 [facility]ment[facility]orm[facility] [phone] [facility] [facility] 11/10/2020 Patient Education: [email or web address]- [email or web address] Coupon [phone] [email or web address] Completed 11/10/2020 Visit Diagnosis Plan: Mass of upper lobe of right lung Discussion: CT scan of lung results discussed with patient and told this looks like cancer Agrees to see pulmonology to see if will be amenable to bronchoscopy to get cells/washings ICD-9 : 786.6 ICD-10 : R91.8 07/29/2020 Appointment: Rob[facility] Mccormick [facility] [phone] [facility] [facility] IN 07/29/2020 Care Plan: Referral Order SNOMED-CT : [id number] Pending 07/29/2020 Care Plan: CT SFT TSUE NCK W/O & W/DYE L OINC : 81067-6 Pending 07/21/2020 Visit Diagnosis Plan: Fatigue Discussion: [...] 07/20/2020 Appointment: Sara Aguila WPtel: [phone] [id number] ACUTE ILLNESS 07/20/2020 Patient Education: Patient [...] ICD-10 : N39.0 04/30/2020 Appointment: Meena Li [address] [place] [address] ACUTE ILLNESS 04/30/2020 Appointment: Meena Li [address] [place], [place] [address] 04/21/2020 1020---patient needed seen fo r [...] F32.9 04/09/2020 Appointment: Robson Mccormick WPtel: [phone] [place] [phone] FOLLOW UP 04/09/2020 Care Plan: COMPREHEN METABOLIC [place] : 56161-1 Pending 04/09/2020 Appointment: Robson Mccormick WPtel: [phone] [facility] US LAB 04/07/2020 Visit Diagnosis Plan: Fatigue Discussion: no other sym ptoms other than fatigue for 4 weeks so will update labs. order sent to [facility] for blood work and ua with c&s. instructed to call office with new or worsening symptoms. ICD-9 : 780.79 ICD-10 : R53.83 11/22/2019 Appointment: Meena Li [address] [place], [place] [phone] TELEMEDICINE 11/22/2019 Appointment: Robson Mccormick WPtel: [address] [place], [place] [phone] US LAB 09/30/2019 Visit Diagnosis Plan: Coronary [...] : I10 09/10/2019 Appointment: Robson Mccormick WPtel: [address] [place], [place] [phone] NEW PATIENT 09/10/2019 Patient Education: [email or web address]- [email or web address] Coupon [id number] [email or web address] Completed 09/10/2019 Appointment: Robson Mccormick WPtel: [address] [place], [place] [phone] US RESCHEDULED 08/20/2019 Appointment: Robson Mccormick WPtel: [address] [place], [place] [phone] US CANCELED 07/22/2019 Referral: Vikram Maguire WPtel: [address] [facility] [address] [id number] US Referral Appointment Requested Instructions No Instructions Medical Equipment No Medical Equipment data Health Concerns Section Health Concerns data not found Goals Section Goals data not found Interventions Section Interventions data not found Health Status Evaluations/Outcomes Section Health Status Evaluations/Outcomes data not found Advance Directives No Advance Directive data
--- OUTSIDE RECORDS SUMMARY | 2021-02-15 18:53 | XMS REPORT | CCD ---
Author Author Erica Mccormick D.O. Organization [facility] Address [address] [place] [address] Phone Care Team Providers Care Range Technician Name Role Phone PP Unavailable CCM Unavailable Summary Purpose Interface Exchange Insurance Providers Payer name Policy type / Coverage type Covered alliance party ID Effective Begin Date Effective End Date WPS MEDICARE PART B [place] Medicare Part B [id number] Unknown Unknown BLUE [place] [place] MEDIC[place] Medicare Part B X [id number] Unknown Unknown Family History Family History data not found Social History Social History Element Codes Description Effective Dates Marital status Unknown 09/10/2019 Number of children Unknown 1 09/10/2019 Employment Unknown Retired 09/10/[address]: 8826579 Former smoker quit 201109/10/[address]: 085081 Currently drinks alcohol 09/09 Frequency of drinks SNOMED CT: 836040347 1-4 drinks per week Allergies, Adverse Reactions, [...] 325 mg (65 mg iron) tablet RxNorm: 556737 Take 1 Tablet(s) Oral QD 01/28/2021 No Stop Date Active paroxetine 20 mg tablet RxNorm: 5742320 1 Tablet(s) Oral QD 01/20/2021 Inactive pantoprazole 20 mg tablet,delayed release RxNorm: 782095 1 Tablet(s) Oral two times a day 12/22/2020 03/21/2021 Active pantoprazole 20 mg tablet,delayed release RxNorm: 371325 1 Tablet(s) Oral two times a day 12/22/2020 12/22/2020 Inactive paroxetine 20 mg tablet RxNorm: 7953427 1 Tablet(s) Oral QD 12/15/2020 Inactive paroxetine 20 mg tablet RxNorm: 5349918 1 Tablet(s) Oral QD 12/15/2020 Inactive MagOx 400 mg (241.3 mg magnesium) tablet RxNorm: 526539 Take 1 Tablet(s) Oral every night at bedtime with melatonin 11/23/2020 01/24/2021 Inactive melatonin 3 mg tablet RxNorm: 369571 Take 1-2 Tablet(s) Oral every night at bedtime 11/18/2020 No Stop Date Active atorvastatin 40 mg tablet RxNorm: 800558 Take 1 Tablet( s) Oral every night at bedtime 11/10/2020 No Stop Date Active Plavix 75 mg tablet RxNorm: 744553 Take 1 Tablet(s) Oral QD No Stop Date Active trazodone 50 mg tablet RxNorm: 916915 Take 1-2 Tablet(s ) Oral QPM as needed for sleep 11/10/2020 11/22/2020 Inactive alprazolam 0.25 mg tablet RxNorm: 334261 1/2-1 Tablet(s ) Oral QPM as needed for sleep 08/03/2020 09/01/2020 Inactive alprazolam 0.25 mg tablet RxNorm: 109391 1/2-1 Tablet(s ) Oral QPM as needed for sleep 08/03/2020 08/02/2020 Inactive Aspirin Low Dose 81 mg tablet,delayed release RxNorm: 763737 1 Tablet(s) Oral QD 09/10/2019 No Stop Date Active losartan 25 mg tablet RxNorm: 999982 1 Tablet(s) Oral QD 09/10/2019 No Stop Date Active carvedilol 6.25 mg tablet RxNorm: 057849 1 Tablet(s) Oral two t imes a day 09/10/2019 11/09/2020 Inactive Fish Oil 1,000 mg (120 mg-180 mg) capsule RxNorm: 1 Caps ule(s) Oral QD 09/10/2019 11/25/2019 Inactive Medication Administered No Medication Administered data Immunizations No Immunization data Results Observation Observation Code Item Item Code Result Date S ervice Location UA W/MICR 09296 UA Protein TNP:Specimen Integrity 01/27 Unknown UA W/MICR 13908 UA Hemoglobin TNP:Specimen Integrity Unknown UA W/MICR 80386 UA Glucose TNP:Specimen Integrity 01/27 Unknown UA W/MICR 85589 UA Ketones TNP:Specimen Integrity 01/27 Unknown UA W/MICR 43930 UA pH TNP:Specimen Integrity 2020 Unknown UA W/MICR 39860 U Spec Le[place]on TNP:Specimen Integrity 1 Unknown UA W/MICR 04901 UA Bilirubin TNP:Specimen Integrity 09/2020 Unknown UA W/MICR 39151 UA Leuk Esteras TNP:Specimen Integrity 01/27/2021 Unknown UA W/MICR 48812 UA Nitrite TNP:Specimen Integrity 01/27 Unknown UA W/MICR 81158 UA WBC/hpf TNP:Specimen Integrity 01/27 Unknown UA W/MICR 72987 UA RBC hpf TNP:Specimen Integrity 01/27 Unknown COMPLETE BLOOD COUNT [id number] WBC 6.1 10e9/L 01/26/20 21 Unknown COMPLETE BLOOD COUNT [id number] RBC 3.34 10e12/L 2020 Unknown COMPLETE BLOOD COUNT [id number] HEMOGLOBIN 8.8 g/dL 01/26/20 21 Unknown COMPLETE BLOOD COUNT [id number] HEMATOCRIT 28.5 % 01/26/20 21 Unknown COMPLETE BLOOD COUNT [id number] MCV 85.3 fL Unknown COMPLETE BLOOD COUNT [id number] MCH 26.3 pg 10/04/202 1 Unknown COMPLETE BLOOD COUNT [id number] MCHC 30.9 g/dL 1 Unknown COMPLETE BLOOD COUNT [id number] PLATELET COUNT 268 10e9/L 07/2020 Unknown COMPLETE BLOOD COUNT 6423029 Mean Plt Volume 8.7 fL 07/2020 Unknown COMPLETE BLOOD COUNT 7433036 Neut Auto 67.7 % 1 Unknown COMPLETE BLOOD COUNT 6042110 Lymph Auto 19.4 % 01/26/20 21 Unknown COMPLETE BLOOD COUNT 1021529 Barry Auto 8.4 % 1 Unknown COMPLETE BLOOD COUNT 7751377 RDW 16.7 % 1 Unknown COMPLETE BLOOD COUNT 7831849 Eos Auto 3.8 % 1 Unknown COMPLETE BLOOD COUNT [id number] Baso Auto 0.7 % 1 Unknown COMPLETE BLOOD COUNT [id number] Neutrophil Abs 4.13 10e9/L Unknown COMPLETE BLOOD COUNT [id number] Lymphocyte Abs 1.18 10e9/L Unknown COMPLETE BLOOD COUNT [id number] Monocyte Abs 0.51 10e9/L 07/2020 Unknown COMPLETE BLOOD COUNT [id number] Eosinophil Abs 0.23 10e9/L Unknown COMPLETE BLOOD COUNT [id number] RDW-SD 50.9 fL 1 Unknown COMPLETE BLOOD COUNT [id number] Basophil Abs 0.04 10e9/L 07/2020 Unknown GFR CALC 9784768 GFR Non Afr Amr >60 mL/min 01/25/2021 Un known GFR CALC 7175064 GFR Afr Amr >60 mL/min 01/25/2021 Unknow n COMPREHENSIVE METABOLIC 45521 AST 17 U/L 2020 Unknown COMPREHENSIVE METABOLIC 20301 ALT 13 U/L 2020 Unknown COMPREHENSIVE METABOLIC 94326 BUN 14 mg/dL 2020 Unknown COMPREHENSIVE METABOLIC 11560 ALBUMIN 4.1 g/dL 2020 Unknown COMPREHENSIVE METABOLIC 55881 CHLORIDE 102 mmol/L 01/25 Unknown COMPREHENSIVE METABOLIC 77092 Bili Total 0.4 mg/dL 01/25 Unknown COMPREHENSIVE METABOLIC 22960 ALK PHOS 85 U/L 2020 Unknown COMPREHENSIVE METABOLIC 72002 SODIUM 134 mmol/L 01/25 Unknown COMPREHENSIVE METABOLIC 40492 CREATININE 0.71 mg/dL 07/2020 Unknown COMPREHENSIVE METABOLIC 54535 CALCIUM 9.3 mg/dL 2020 Unknown COMPREHENSIVE METABOLIC 12343 POTASSIUM 4.3 mmol/L 01/25 Unknown COMPREHENSIVE METABOLIC 37637 Total Protein 7.0 g/dL Unknown COMPREHENSIVE METABOLIC 98053 Glucose 111 mg/dL 2020 Unknown COMPREHENSIVE METABOLIC 09156 Bicarbonate 24 mmol/L 07/2020 Unknown COMPREHENSIVE METABOLIC 16240 AGAP 8 mmol/L 2020 Unknown COMPREHENSIVE METABOLIC 50276 AST 16 U/L 2019 Unknown COMPREHENSIVE METABOLIC 01552 ALT 12 U/L 2019 Unknown COMPREHENSIVE METABOLIC 21406 BUN 13 mg/dL 2019 Unknown COMPREHENSIVE METABOLIC 27420 ALBUMIN 4.1 g/dL 2019 Unknown COMPREHENSIVE METABOLIC 48796 CHLORIDE 96 mmol/L 2019 Unknown COMPREHENSIVE METABOLIC 05374 Bili Total 1.1 mg/dL 04/09 Unknown COMPREHENSIVE METABOLIC 74080 ALK PHOS 80 U/L 2019 Unknown COMPREHENSIVE METABOLIC 75551 SODIUM 131 mmol/L 04/09 Unknown COMPREHENSIVE METABOLIC 99206 CREATININE 0.76 mg/dL 03/24 Unknown COMPREHENSIVE METABOLIC 13440 CALCIUM 9.0 mg/dL 2019 Unknown COMPREHENSIVE METABOLIC 25275 POTASSIUM 4.2 mmol/L 04/09 Unknown COMPREHENSIVE METABOLIC 87305 Total Protein 6.8 g/dL Unknown COMPREHENSIVE METABOLIC 44529 Glucose 101 mg/dL 2019 Unknown COMPREHENSIVE METABOLIC 79041 Bicarbonate 25 mmol/L 03/24 Unknown COMPREHENSIVE METABOLIC 09355 AGAP 10 mmol/L 2019 Unknown GFR CALC 1313743 GFR Afr Amr >60 mL/min 04/09/2020 Unknow n GFR CALC [id number] GFR Non Afr Amr >60 mL/min 04/09/2020 Un known GAMMA GLUTAMYL TRANSFERASE 00175 GGT 19 U/L Unknown COMPLETE BLOOD COUNT 1483533 WBC 6.3 10e9/L 04/07/20 20 Unknown COMPLETE BLOOD COUNT [id number] RBC 4.36 10e12/L 2019 Unknown COMPLETE BLOOD COUNT 9350128 HEMOGLOBIN 15.2 g/dL 04/07/20 20 Unknown COMPLETE BLOOD COUNT 8777064 HEMATOCRIT 43.8 % 04/07/20 20 Unknown COMPLETE BLOOD COUNT 8443955 MCV 100.5 fL 0 Unknown COMPLETE BLOOD COUNT 7933545 MCH 34.9 pg 0 Unknown COMPLETE BLOOD COUNT 5900791 MCHC 34.7 g/dL 0 Unknown COMPLETE BLOOD COUNT 8363352 PLATELET COUNT 254 10e9/L Unknown COMPLETE BLOOD COUNT 4381511 Mean Plt Volume 9.9 fL Unknown COMPLETE BLOOD COUNT 9361862 Neut Auto 63.3 % 0 Unknown COMPLETE BLOOD COUNT 4497644 Lymph Auto 24.5 % 04/07/20 20 Unknown COMPLETE BLOOD COUNT 9151964 Barry Auto 8.4 % 0 Unknown COMPLETE BLOOD COUNT 8212422 Eos Auto 3.2 % 0 Unknown COMPLETE BLOOD COUNT 0799576 RDW 12.8 % 0 Unknown COMPLETE BLOOD COUNT 7607125 Baso Auto 0.6 % 0 Unknown COMPLETE BLOOD COUNT 3866932 Neutrophil Abs 3.99 10e9/L Unknown COMPLETE BLOOD COUNT 5531003 Lymphocyte Abs 1.54 10e9/L Unknown COMPLETE BLOOD COUNT [id number] Monocyte Abs 0.53 10e9/L 03/24 Unknown COMPLETE BLOOD COUNT 5337513 Eosinophil Abs 0.20 10e9/L Unknown COMPLETE BLOOD COUNT 8382558 Basophil Abs 0.04 10e9/L 03/24 Unknown COMPLETE BLOOD COUNT 6776613 RDW-SD 47.6 fL 0 Unknown VITAMIN B 12 66976 VITAMIN B12 661 pg/mL 04/07/2020 Unkn own LIPID GROUP 39246 Cholesterol 168 mg/dL 09/30/2019 Unkno wn LIPID GROUP 00664 Triglyceride 141 mg/dL 09/30/2019 Unkn own LIPID GROUP 48661 HDL CHOLESTEROL 66 mg/dL 09/30/2019 U nknown LIPID GROUP 99934 Chol/HDL Ratio 2.55 ratio 09/30/2019 U nknown LIPID GROUP 03261 NON-HDL Chol 102 mg/dL 09/30/2019 Unkn own LIPID GROUP 30934 LDL Cholesterol 74 mg/dL 09/30/2019 U nknown FREE T4 88749 T4 Free 0.76 ng/dL 09/30/2019 Unknown THYROID STIMULATING HORMONE 42232 TSH 2.186 uIU/mL 09/30/2019 Unknown GFR CALC 6109020 GFR Non Afr Amr >60 mL/min 09/30/2019 Un known GFR CALC 5575802 GFR Afr Amr >60 mL/min 09/30/2019 Unknow n COMPREHENSIVE METABOLIC 62123 AST 14 U/L 2019 Unknown COMPREHENSIVE METABOLIC 63898 ALT 11 U/L 2019 Unknown COMPREHENSIVE METABOLIC 54585 BUN 15 mg/dL 2019 Unknown COMPREHENSIVE METABOLIC 32790 ALBUMIN 4.0 g/dL 2019 Unknown COMPREHENSIVE METABOLIC 12183 CHLORIDE 96 mmol/L 2019 Unknown COMPREHENSIVE METABOLIC 99184 Bili Total 0.9 mg/dL 09/29 Unknown COMPREHENSIVE METABOLIC 20538 ALK PHOS 72 U/L 2019 Unknown COMPREHENSIVE METABOLIC 43064 SODIUM 132 mmol/L 09/29 Unknown COMPREHENSIVE METABOLIC 75087 CREATININE 0.73 mg/dL 11/2019 Unknown COMPREHENSIVE METABOLIC 27374 CALCIUM 9.1 mg/dL 2019 Unknown COMPREHENSIVE METABOLIC 53341 POTASSIUM 4.6 mmol/L 09/29 Unknown COMPREHENSIVE METABOLIC 89520 Total Protein 6.4 g/dL Unknown COMPREHENSIVE METABOLIC 98336 Glucose 97 mg/dL 2019 Unknown COMPREHENSIVE METABOLIC 35270 Bicarbonate 25 mmol/L 11/2019 Unknown COMPREHENSIVE METABOLIC 65603 AGAP 11 mmol/L 2019 Unknown COMPLETE BLOOD COUNT 1212640 WBC 5.3 10e9/L 09/30/19 20 Unknown COMPLETE BLOOD COUNT 8085396 RBC 4.16 10e12/L 2019 Unknown COMPLETE BLOOD COUNT 7749085 HEMOGLOBIN 14.1 g/dL 09/30/19 20 Unknown COMPLETE BLOOD COUNT 1422956 HEMATOCRIT 42.6 % 09/30/19 20 Unknown COMPLETE BLOOD COUNT 0516896 MCV 102.4 fL 0 Unknown COMPLETE BLOOD COUNT 8981635 MCH 33.9 pg 0 Unknown COMPLETE BLOOD COUNT 9347050 MCHC 33.1 g/dL 0 Unknown COMPLETE BLOOD COUNT 7389411 PLATELET COUNT 273 10e9/L 11/2019 Unknown COMPLETE BLOOD COUNT 0875078 Mean Plt Volume 9.4 fL 11/2019 Unknown COMPLETE BLOOD COUNT 5963767 Neut Auto 57.3 % 0 Unknown COMPLETE BLOOD COUNT 6171038 Lymph Auto 29.3 % 09/30/19 20 Unknown COMPLETE BLOOD COUNT 1853698 Barry Auto 7.6 % 0 Unknown COMPLETE BLOOD COUNT 5123298 RDW 13.8 % 0 Unknown COMPLETE BLOOD COUNT 1657767 Eos Auto 4.5 % 0 Unknown COMPLETE BLOOD COUNT 4701055 Baso Auto 1.3 % 0 Unknown COMPLETE BLOOD COUNT 4047140 Neutrophil Abs 3.04 10e9/L Unknown COMPLETE BLOOD COUNT 5065443 Lymphocyte Abs 1.55 10e9/L Unknown COMPLETE BLOOD COUNT 8960930 Monocyte Abs 0.40 10e9/L 11/2019 Unknown COMPLETE BLOOD COUNT 9214742 Eosinophil Abs 0.24 10e9/L Unknown COMPLETE BLOOD COUNT 8717565 Basophil Abs 0.07 10e9/L 11/2019 Unknown COMPLETE BLOOD COUNT 7381703 RDW-SD 50.7 fL 0 Unknown Procedures Procedure Codes Date URINE CULTURE/ COLONY COUNT CPT-4: 62741 02/02/2021 ROUTINE VENIPUNCTURE CPT-4: 70828 01/25/2021 COMPREHEN METABOLIC PANEL CPT-4: 02481 01/25/2021 COMPLETE CBC W/AUTO DIFF WBC CPT-4: 69658 01/25/2021 URINE CULTURE/ COLONY COUNT CPT-4: 18323 01/25/2021 URINALYSIS NONAUTO W/O SCOPE CPT-4: 23816 01/25/2021 ROUTINE VENIPUNCTURE CPT-4: 19958 07/20/2020 COMPREHEN METABOLIC PANEL CPT-4: 39256 07/20/2020 ASSAY OF FREE THYROXINE CPT-4: 51446 07/20/2020 ASSAY THYROID STIM HORMONE CPT-4: 54228 07/20/2020 COMPLETE CBC W/AUTO DIFF WBC CPT-4: 25301 07/20/2020 RBC SED RATE AUTOMATED CPT-4: 81780 07/20/2020 URINALYSIS NONAUTO W/O SCOPE CPT-4: 06503 04/30/2020 URINE CULTURE/ COLONY COUNT CPT-4: 14194 04/30/2020 ROUTINE VENIPUNCTURE CPT-4: 16120 04/07/2020 COMPLETE CBC W/AUTO DIFF WBC CPT-4: 22571 04/07/2020 VITAMIN B-12 CPT-4: 34593 04/07/2020 ASSAY OF GGT CPT-4: 61552 04/07/2020 ROUTINE VENIPUNCTURE CPT-4: 27826 09/30/2019 ASSAY OF FREE THYROXINE CPT-4: 78425 09/30/2019 ASSAY THYROID STIM HORMONE CPT-4: 40325 09/30/2019 COMPREHEN METABOLIC PANEL CPT-4: 84036 09/30/2019 COMPLETE CBC W/AUTO DIFF WBC CPT-4: 74277 09/30/2019 LIPID PANEL CPT-4: 16685 09/30/2019 Vital Signs Date Vital 01/25/2021 Blood Pressure 1: 102/68 Code: 8480-6 Heart Rate 1: 76 bpm Respiratory Rate: 20 bpm SpO2: 100% Temperature: 36.9 (C) / 98.5 (F) We ight: 87 lbs Code: 56091-4 12/30/2020 Blood Pressure 1: 134/80 Code: 8480-6 BMI: 14.1 Code: 87749-5 Heart Rate 1: 72 bpm Height: 5'5" Code: 8302-2 Respiratory Rate: 18 bpm SpO2: 97% Temperature: 36.6 (C) / 97.8 (F) Weight: 85 lbs Code: 41152-7 11/10/2020 Blood Pressure 1: 130/74 Code: 8480-6 Heart Rate 1: 56 bpm Respiratory Rate: 20 bpm SpO2: 98% Temperature: 36.3 (C) / 97.4 (F) We ight: 85 lbs Code: 01674-3 07/29/2020 Blood Pressure 1: 121/65 Code: 8480-6 BMI: 14.3 Code: 78173-8 Heart Rate 1: 58 bpm Height: 5'5" Code: 8302-2 Respiratory Rate: 15 bpm SpO2: 98% Temperature: 36.9 (C) / 98.4 (F) Weight: 86 lbs Code: 64833-9 07/20/2020 Blood Pressure 1: 123/69 Code: 8480-6 Heart Rate 1: 68 bpm Respiratory Rate: 15 bpm SpO2: 99% Temperature: 36.6 (C) / 97.8 (F) We ight: 83 lbs Code: 85485-9 04/30/2020 Blood Pressure 1: 128/82 Code: 8480-6 Heart Rate 1: 68 bpm Respiratory Rate: 20 bpm SpO2: 95% Temperature: 36.5 (C) / 97.7 (F) We ight: 91 lbs Code: 81402-8 04/09/2020 Blood Pressure 1: 130/78 Code: 8480-6 Heart Rate 1: 68 bpm Respiratory Rate: 20 bpm SpO2: 99% Temperature: 36.3 (C) / 97.4 (F) We ight: 90 lbs Code: 24889-3 11/22/2019 Temperature: 36.3 (C) / 97.3 (F) 09/10/2019 Blood Pressure 1: 128/72 Code: 8480-6 BMI: 15.6 Code: 21758-7 Heart Rate 1: 68 bpm Height: 5'5" Code: 8302-2 Respiratory Rate: 20 bpm SpO2: 97% Temperature: 36.6 (C) / 97.9 (F) Weight: 94 lbs Code: 05580-7 Functional Status No Functional Status data Reason [...] Urinary tract infection[ICD10: N39.0] Robson MCCORMICK DO [facility] CPT-4: 19067 02/02/2021 ([id number]) OFFICE/OUTPATIENT VISIT EST Diagnosis: Fatigue[ICD10: R53.83] Diagnosis: Blood loss anemia[ICD10: D50.0] Diagnosis: Coronary artery disease[ICD10: I25.10] Diagnosis: Hematuria[ICD10: R31.9] Robson CHANEL [facility] CPT-4: 87592 01/25/2021 ([id number]) OFFICE/OUTPATIENT VISIT EST Diagnosis: GERD (gastroesophageal reflux disease)[ICD10: K21.9] Diagnosis: Duodenal ulcer[ICD10: K26.9] Diagnosis: Coronary artery disease[ICD10: I25.10] Diagnosis: Anxiety[ICD10: F41.9] Diagnosis: Blood loss anemia[ICD10: D50.0] Robson MCCORMICK [facility] CPT-4: 72913 12/30/2020 ([id number]) NURSE/OUTPATIENT VISIT EST Diagnosis: Edema[ICD10: R60.9] Robson MCCORMICK [facility] CPT-4: 41929 12/21/2020 ([id number]) OFFICE/OUTPATIENT VISIT EST Diagnosis: Coronary artery disease[ICD10: I25.10] Diagnosis: Essential (primary) hypertension[ICD10: I10] Diagnosis: Stress reaction[ICD10: F43.0] Diagnosis: Insomnia[ICD10: G47.00] Diagnosis: Pulmonary nodule[ICD10: R91.1] Robson MCCORMICK [facility] CPT-4: 05576 11/10/2020 ([id number]) NO CHARGE Diagnosis: Mass of upper lobe of right lung[ICD10: R91.8] Robson MCCORMICK [facility] CPT-4: 21530 07/29/2020 ([id number]) OFFICE/OUTPATIENT VISIT EST Diagnosis: Fatigue[ICD10: R53.83] Diagnosis: Lymphadenopathy of head and neck[ICD10: R59.1] Diagnosis: Weight loss, non-intentional[ICD10: R63.4] Diagnosis: History of melanoma[ICD10: Z85.820] Diagnosis: Skin lesion[ICD10: L98.9] Sara Aguila ROBSON NUNEZ [facility] CPT-4: 87369 07/20/2020 ([id number]) OFFICE/OUTPATIENT VISIT EST Diagnosis: Urinary tract infection[ICD10: N39.0] Meena MCCORMICK DO [facility] CPT-4: 99614 04/30/2020 ([id number]) OFFICE/OUTPATIENT VISIT EST Diagnosis: Dizziness[ICD10: R42] Diagnosis: Depressed mood with feeling of loneliness[ICD10: F32.9] Diagnosis: Insomnia[ICD10: G47.00] Robson CHANEL [facility] CPT-4: 60928 04/09/2020 ([id number]) NURSE/OUTPATIENT VISIT EST Diagnosis: Coronary artery disease[ICD10: I25.10] Diagnosis: Fatigue[ICD10: R53.83] Diagnosis: Essential (primary) hypertension[ICD10: I10] Robson MCCORMICK [facility] CPT-4: 41933 04/07/2020 ([id number]) OFFICE/OUTPATIENT VISIT EST Diagnosis: Fatigue[ICD10: R53.83] Meena Li [facility] CPT-4: 33451 11/22/2019 ([id number]) NURSE/OUTPATIENT VISIT EST Diagnosis: Essential (primary) hypertension[ICD10: I10] Diagnosis: Coronary artery disease[ICD10: I25.10] Diagnosis: Encounter for general adult medical examination with abnormal findings[ICD10: Z00.01] Robson MCCORMICK [facility] CPT-4: 64538 09/30/2019 ([id number]) OFFICE/OUTPATIENT VISIT NEW Diagnosis: Essential (primary) hypertension[ICD10: I10] Diagnosis: Coronary artery disease[ICD10: I25.10] Diagnosis: Aortic valve stenosis with insufficiency[ICD10: I35.2] Robson MCCORMICK [facility] CPT-4: 90387 09/10/2019 Plan of Care Planned Activity Notes Codes Status Date Care Plan: UA W/MICR ADD ON ORDER LOINC : 78609-5 Pending 01/26/2021 Visit Diagnosis Plan: Hematuria Discussion: Culture ur ine ICD-9 : 599.70 ICD-10 : R31.9 01/25/2021 Visit Diagnosis Plan: Blood loss anemia Discussion: Ch real CBC now ICD-9 : 280.0 ICD-10 : D50.0 01/25/2021 Appointment: Robson Mccormick WPtel: [address] [place], [place] [phone] ACUTE ILLNESS 01/25/2021 Appointment[facility] MemoSara looney [facility] [phone] [facility] [place] CANC[facility]ED 01/01/2021 Visit Diagnosis Plan: Anxiety [...] : K21.9 12/30/2020 Appointment: Robson Mccormick WPtel: [address] [place], [place] [phone] FOLLOW UP 12/30/2020 Appointment: Robson Mccormick WPtel: [address] [place], [place] [phone] NURSE SERVICES 12/21/2020 Visit Diagnosis Plan: Insomnia [...] : F43.0 11/10/2020 [facility] [phone] [facility] [facility] 11/10/2020 Patient Education: [email or web address]- [employer] Coupon [id number] [email or web address] Completed 11/10/2020 Visit Diagnosis Plan: Mass of upper lobe of right lung Discussion: CT scan of lung results discussed with patient and told this looks like cancer Agrees to see pulmonology to see if will be amenable to bronchoscopy to get cells/washings ICD-9 : 786.6 ICD-10 : R91.8 07/29/2020 Appointment: [facility]ccorm[facility] [phone] [facility] [facility] 07/29/2020 Care Plan: Referral Order SNOMED-CT : [id number] Pending 07/29/2020 Care Plan: CT SFT TSUE NCK W/O & W/DYE L OINC : 17842-8 Pending 07/21/2020 Visit Diagnosis Plan: Fatigue Discussion: [...] 07/20/2020 Appointment: Sara Aguila WPtel: [phone] [facility] ACUTE ILLNESS 07/20/2020 Patient Education: [...] ICD-10 : N39.0 04/30/2020 Appointment: Meena Li [address] [place] [address] ACUTE ILLNESS 04/30/2020 Appointment: Meena Li [address] [place], [place] [phone] 04/21/2020 1020---patient needed seen fo [...] F32.9 04/09/2020 Appointment: Robson Mccormick WPtel: [phone] [place] [phone] FOLLOW UP 04/09/2020 Care Plan: COMPREHEN METABOLIC [place] : 07271-3 Pending 04/09/2020 Appointment: Robson Mccormick WPtel: [phone] [facility] US LAB 04/07/2020 Visit Diagnosis Plan: Fatigue Discussion: no other sym ptoms other than fatigue for 4 weeks so will update labs. order sent to [facility] for blood work and ua with c&s. instructed to call office with new or worsening symptoms. ICD-9 : 780.79 ICD-10 : R53.83 11/22/2019 Appointment: Meena Li [address] [place], [place] [phone] TELEMEDICINE 11/22/2019 Appointment: Robson Mccormick WPtel: [address] [place], [place] [phone] US LAB 09/30/2019 Visit Diagnosis Plan: Coronary [...] : I10 09/10/2019 Appointment: Robson Mccormick WPtel: [address] [place], [place] [phone] NEW PATIENT 09/10/2019 Patient Education: [email or web address]- [email or web address] Coupon [id number] [email or web address] Completed 09/10/2019 Appointment: Robson Mccormick WPtel: [address] [place], [place] [phone] US RESCHEDULED 08/20/2019 Appointment: Robson Mccormick WPtel: [address] [place], [place] [phone] US CANCELED 07/22/2019 Referral: Vikram Maguire WPtel: [address] [facility] [address] [id number] US Referral Appointment Requested Instructions No Instructions Medical Equipment No Medical Equipment data Health Concerns Section Health Concerns data not found Goals Section Goals data not found Interventions Section Interventions data not found Health Status Evaluations/Outcomes Section Health Status Evaluations/Outcomes data not found Advance Directives No Advance Directive data
--- OUTSIDE RECORDS SUMMARY | 2021-02-15 18:53 | XMS REPORT | CCD ---
Author Author Erica Mccormick D.O. Organization [facility] Address [address] [place] [address] Phone Care Team Providers Care Jet Worker Name Role Phone PP Unavailable CCM Unavailable Summary Purpose Interface Exchange Insurance Providers Payer name Policy type / Coverage type Covered libertarian ID Effective Begin Date Effective End Date WPS MEDICARE PART B [place] Medicare Part B [id number] Unknown Unknown BLUE [employer] [place] MEDIC[place] Medicare Part B X [id number] Unknown Unknown Family History Family History data not found Social History Social History Element Codes Description Effective Dates Marital status Unknown 09/10/2019 Number of children Unknown 1 09/10/2019 Employment Unknown Retired 09/10/[address]: 5819668 Former smoker quit 201109/10/[address]: 978569 Currently drinks alcohol 09/09 Frequency of drinks SNOMED CT: 787747760 1-4 drinks per week Allergies, Adverse Reactions, [...] 325 mg (65 mg iron) tablet RxNorm: 633687 Take 1 Tablet(s) Oral QD 01/28/2021 No Stop Date Active paroxetine 20 mg tablet RxNorm: 0265391 1 Tablet(s) Oral QD 01/20/2021 Inactive pantoprazole 20 mg tablet,delayed release RxNorm: 804840 1 Tablet(s) Oral two times a day 12/22/2020 03/21/2021 Active pantoprazole 20 mg tablet,delayed release RxNorm: 083001 1 Tablet(s) Oral two times a day 12/22/2020 12/22/2020 Inactive paroxetine 20 mg tablet RxNorm: 0139186 1 Tablet(s) Oral QD 12/15/2020 Inactive paroxetine 20 mg tablet RxNorm: 2328192 1 Tablet(s) Oral QD 12/15/2020 Inactive MagOx 400 mg (241.3 mg magnesium) tablet RxNorm: 285585 Take 1 Tablet(s) Oral every night at bedtime with melatonin 11/23/2020 01/24/2021 Inactive melatonin 3 mg tablet RxNorm: 892262 Take 1-2 Tablet(s) Oral every night at bedtime 11/18/2020 No Stop Date Active atorvastatin 40 mg tablet RxNorm: 411600 Take 1 Tablet( s) Oral every night at bedtime 11/10/2020 No Stop Date Active Plavix 75 mg tablet RxNorm: 344284 Take 1 Tablet(s) Oral QD No Stop Date Active trazodone 50 mg tablet RxNorm: 683034 Take 1-2 Tablet(s ) Oral QPM as needed for sleep 11/10/2020 11/22/2020 Inactive alprazolam 0.25 mg tablet RxNorm: 900143 1/2-1 Tablet(s ) Oral QPM as needed for sleep 08/03/2020 09/01/2020 Inactive alprazolam 0.25 mg tablet RxNorm: 939389 1/2-1 Tablet(s ) Oral QPM as needed for sleep 08/03/2020 08/02/2020 Inactive Aspirin Low Dose 81 mg tablet,delayed release RxNorm: 706700 1 Tablet(s) Oral QD 09/10/2019 No Stop Date Active losartan 25 mg tablet RxNorm: 962890 1 Tablet(s) Oral QD 09/10/2019 No Stop Date Active carvedilol 6.25 mg tablet RxNorm: 340843 1 Tablet(s) Oral two t imes a day 09/10/2019 11/09/2020 Inactive Fish Oil 1,000 mg (120 mg-180 mg) capsule RxNorm: 1 Caps ule(s) Oral QD 09/10/2019 11/25/2019 Inactive Medication Administered No Medication Administered data Immunizations No Immunization data Results Observation Observation Code Item Item Code Result Date S ervice Location UA W/MICR 34712 UA Protein TNP:Specimen Integrity 01/27 Unknown UA W/MICR 80494 UA Hemoglobin TNP:Specimen Integrity Unknown UA W/MICR 40189 UA Glucose TNP:Specimen Integrity 01/27 Unknown UA W/MICR 78584 UA Ketones TNP:Specimen Integrity 01/27 Unknown UA W/MICR 14088 UA pH TNP:Specimen Integrity 2020 Unknown UA W/MICR 02567 U Spec [place] TNP:Specimen Integrity 1 Unknown UA W/MICR 14825 UA Bilirubin TNP:Specimen Integrity 09/2020 Unknown UA W/MICR 30945 UA Leuk [place] TNP:Specimen Integrity 01/27/2021 Unknown UA W/MICR 75435 UA Nitrite TNP:Specimen Integrity 01/27 Unknown UA W/MICR 06891 UA WBC/hpf TNP:Specimen Integrity 01/27 Unknown UA W/MICR 78577 UA RBC hpf TNP:Specimen Integrity 01/27 Unknown COMPLETE BLOOD COUNT [id number] WBC 6.1 10e9/L 01/26/20 21 Unknown COMPLETE BLOOD COUNT [id number] RBC 3.34 10e12/L 2020 Unknown COMPLETE BLOOD COUNT [id number] HEMOGLOBIN 8.8 g/dL 01/26/20 21 Unknown COMPLETE BLOOD COUNT [id number] HEMATOCRIT 28.5 % 01/26/20 21 Unknown COMPLETE BLOOD COUNT [id number] MCV 85.3 fL Unknown COMPLETE BLOOD COUNT [id number] MCH 26.3 pg 10/04/202 1 Unknown COMPLETE BLOOD COUNT 3663088 MCHC 30.9 g/dL 1 Unknown COMPLETE BLOOD COUNT 1087090 PLATELET COUNT 268 10e9/L 07/2020 Unknown COMPLETE BLOOD COUNT 2756045 Mean Plt Volume 8.7 fL 07/2020 Unknown COMPLETE BLOOD COUNT 8028011 Neut Auto 67.7 % 1 Unknown COMPLETE BLOOD COUNT [id number] Lymph Auto 19.4 % 01/26/20 21 Unknown COMPLETE BLOOD COUNT [id number] Sharp Auto 8.4 % 1 Unknown COMPLETE BLOOD COUNT 1283069 RDW 16.7 % 1 Unknown COMPLETE BLOOD COUNT 8800496 Eos Auto 3.8 % 1 Unknown COMPLETE BLOOD COUNT 7611324 Baso Auto 0.7 % 1 Unknown COMPLETE BLOOD COUNT [id number] Neutrophil Abs 4.13 10e9/L Unknown COMPLETE BLOOD COUNT [id number] Lymphocyte Abs 1.18 10e9/L Unknown COMPLETE BLOOD COUNT [id number] Monocyte Abs 0.51 10e9/L 07/2020 Unknown COMPLETE BLOOD COUNT [id number] Eosinophil Abs 0.23 10e9/L Unknown COMPLETE BLOOD COUNT 1577843 RDW-SD 50.9 fL 1 Unknown COMPLETE BLOOD COUNT [id number] Basophil Abs 0.04 10e9/L 07/2020 Unknown GFR CALC 7687925 GFR Non Afr Amr >60 mL/min 01/25/2021 Un known GFR CALC [id number] GFR Afr Amr >60 mL/min 01/25/2021 Unknow n COMPREHENSIVE METABOLIC 67150 AST 17 U/L 2020 Unknown COMPREHENSIVE METABOLIC 40190 ALT 13 U/L 2020 Unknown COMPREHENSIVE METABOLIC 85341 BUN 14 mg/dL 2020 Unknown COMPREHENSIVE METABOLIC 52530 ALBUMIN 4.1 g/dL 2020 Unknown COMPREHENSIVE METABOLIC 70276 CHLORIDE 102 mmol/L 01/25 Unknown COMPREHENSIVE METABOLIC 13650 Bili Total 0.4 mg/dL 01/25 Unknown COMPREHENSIVE METABOLIC 64769 ALK PHOS 85 U/L 2020 Unknown COMPREHENSIVE METABOLIC 85712 SODIUM 134 mmol/L 01/25 Unknown COMPREHENSIVE METABOLIC 48507 CREATININE 0.71 mg/dL 07/2020 Unknown COMPREHENSIVE METABOLIC 99080 CALCIUM 9.3 mg/dL 2020 Unknown COMPREHENSIVE METABOLIC 22318 POTASSIUM 4.3 mmol/L 01/25 Unknown COMPREHENSIVE METABOLIC 10901 Total Protein 7.0 g/dL Unknown COMPREHENSIVE METABOLIC 95429 Glucose 111 mg/dL 2020 Unknown COMPREHENSIVE METABOLIC 87956 Bicarbonate 24 mmol/L 07/2020 Unknown COMPREHENSIVE METABOLIC 74920 AGAP 8 mmol/L 2020 Unknown COMPREHENSIVE METABOLIC 30792 AST 16 U/L 2019 Unknown COMPREHENSIVE METABOLIC 26939 ALT 12 U/L 2019 Unknown COMPREHENSIVE METABOLIC 60754 BUN 13 mg/dL 2019 Unknown COMPREHENSIVE METABOLIC 59662 ALBUMIN 4.1 g/dL 2019 Unknown COMPREHENSIVE METABOLIC 61414 CHLORIDE 96 mmol/L 2019 Unknown COMPREHENSIVE METABOLIC 79327 Bili Total 1.1 mg/dL 04/09 Unknown COMPREHENSIVE METABOLIC 66962 ALK PHOS 80 U/L 2019 Unknown COMPREHENSIVE METABOLIC 95753 SODIUM 131 mmol/L 04/09 Unknown COMPREHENSIVE METABOLIC 90584 CREATININE 0.76 mg/dL 03/24 Unknown COMPREHENSIVE METABOLIC 61349 CALCIUM 9.0 mg/dL 2019 Unknown COMPREHENSIVE METABOLIC 12326 POTASSIUM 4.2 mmol/L 04/09 Unknown COMPREHENSIVE METABOLIC 03236 Total Protein 6.8 g/dL Unknown COMPREHENSIVE METABOLIC 05184 Glucose 101 mg/dL 2019 Unknown COMPREHENSIVE METABOLIC 30275 Bicarbonate 25 mmol/L 03/24 Unknown COMPREHENSIVE METABOLIC 72656 AGAP 10 mmol/L 2019 Unknown GFR CALC 3023232 GFR Non Afr Amr >60 mL/min 04/09/2020 Un known GFR CALC [id number] GFR Afr Amr >60 mL/min 04/09/2020 Unknow n GAMMA GLUTAMYL TRANSFERASE 57815 GGT 19 U/L Unknown COMPLETE BLOOD COUNT [id number] WBC 6.3 10e9/L 04/07/20 20 Unknown COMPLETE BLOOD COUNT 0265337 RBC 4.36 10e12/L 2019 Unknown COMPLETE BLOOD COUNT 8998874 HEMOGLOBIN 15.2 g/dL 04/07/20 20 Unknown COMPLETE BLOOD COUNT 8961439 HEMATOCRIT 43.8 % 04/07/20 20 Unknown COMPLETE BLOOD COUNT [id number] MCV 100.5 fL 0 Unknown COMPLETE BLOOD COUNT 4438711 MCH 34.9 pg 0 Unknown COMPLETE BLOOD COUNT 9033634 MCHC 34.7 g/dL 0 Unknown COMPLETE BLOOD COUNT 8115751 PLATELET COUNT 254 10e9/L Unknown COMPLETE BLOOD COUNT 8429234 Mean Plt Volume 9.9 fL Unknown COMPLETE BLOOD COUNT 0917987 Neut Auto 63.3 % 0 Unknown COMPLETE BLOOD COUNT 3419882 Lymph Auto 24.5 % 04/07/20 20 Unknown COMPLETE BLOOD COUNT 6826565 Sharp Auto 8.4 % 0 Unknown COMPLETE BLOOD COUNT 7431687 RDW 12.8 % 0 Unknown COMPLETE BLOOD COUNT 1406521 Eos Auto 3.2 % 0 Unknown COMPLETE BLOOD COUNT 7932909 Baso Auto 0.6 % 0 Unknown COMPLETE BLOOD COUNT 2832216 Neutrophil Abs 3.99 10e9/L Unknown COMPLETE BLOOD COUNT 2042360 Lymphocyte Abs 1.54 10e9/L Unknown COMPLETE BLOOD COUNT [id number] Monocyte Abs 0.53 10e9/L 03/24 Unknown COMPLETE BLOOD COUNT 8295212 Eosinophil Abs 0.20 10e9/L Unknown COMPLETE BLOOD COUNT 2145861 RDW-SD 47.6 fL 0 Unknown COMPLETE BLOOD COUNT 7839375 Basophil Abs 0.04 10e9/L 03/24 Unknown VITAMIN B 12 54020 VITAMIN B12 661 pg/mL 04/07/2020 Unkn own LIPID GROUP 64011 Cholesterol 168 mg/dL 09/30/2019 Unkno wn LIPID GROUP 08947 Triglyceride 141 mg/dL 09/30/2019 Unkn own LIPID GROUP 15851 HDL CHOLESTEROL 66 mg/dL 09/30/2019 U nknown LIPID GROUP 26980 Chol/HDL Ratio 2.55 ratio 09/30/2019 U nknown LIPID GROUP 08889 NON-HDL Chol 102 mg/dL 09/30/2019 Unkn own LIPID GROUP 99475 LDL Cholesterol 74 mg/dL 09/30/2019 U nknown FREE T4 46083 T4 Free 0.76 ng/dL 09/30/2019 Unknown THYROID STIMULATING HORMONE 88208 TSH 2.186 uIU/mL 09/30/2019 Unknown GFR CALC 3656399 GFR Non Afr Amr >60 mL/min 09/30/2019 Un known GFR CALC 9290216 GFR Afr Amr >60 mL/min 09/30/2019 Unknow n COMPREHENSIVE METABOLIC 35245 AST 14 U/L 2019 Unknown COMPREHENSIVE METABOLIC 50197 ALT 11 U/L 2019 Unknown COMPREHENSIVE METABOLIC 05680 BUN 15 mg/dL 2019 Unknown COMPREHENSIVE METABOLIC 12716 ALBUMIN 4.0 g/dL 2019 Unknown COMPREHENSIVE METABOLIC 02527 CHLORIDE 96 mmol/L 2019 Unknown COMPREHENSIVE METABOLIC 84198 Bili Total 0.9 mg/dL 09/29 Unknown COMPREHENSIVE METABOLIC 87276 ALK PHOS 72 U/L 2019 Unknown COMPREHENSIVE METABOLIC 43085 SODIUM 132 mmol/L 09/29 Unknown COMPREHENSIVE METABOLIC 67942 CREATININE 0.73 mg/dL 11/2019 Unknown COMPREHENSIVE METABOLIC 71641 CALCIUM 9.1 mg/dL 2019 Unknown COMPREHENSIVE METABOLIC 09056 POTASSIUM 4.6 mmol/L 09/29 Unknown COMPREHENSIVE METABOLIC 12418 Total Protein 6.4 g/dL Unknown COMPREHENSIVE METABOLIC 26387 Glucose 97 mg/dL 2019 Unknown COMPREHENSIVE METABOLIC 84521 Bicarbonate 25 mmol/L 11/2019 Unknown COMPREHENSIVE METABOLIC 29989 AGAP 11 mmol/L 2019 Unknown COMPLETE BLOOD COUNT 7954169 WBC 5.3 10e9/L 09/30/19 20 Unknown COMPLETE BLOOD COUNT 6932906 RBC 4.16 10e12/L 2019 Unknown COMPLETE BLOOD COUNT 8331568 HEMOGLOBIN 14.1 g/dL 09/30/19 20 Unknown COMPLETE BLOOD COUNT 8527824 HEMATOCRIT 42.6 % 09/30/19 20 Unknown COMPLETE BLOOD COUNT 4385639 MCV 102.4 fL 0 Unknown COMPLETE BLOOD COUNT 9544602 MCH 33.9 pg 0 Unknown COMPLETE BLOOD COUNT 9217470 MCHC 33.1 g/dL 0 Unknown COMPLETE BLOOD COUNT 8957572 PLATELET COUNT 273 10e9/L 11/2019 Unknown COMPLETE BLOOD COUNT 9276512 Mean Plt Volume 9.4 fL 11/2019 Unknown COMPLETE BLOOD COUNT 8917078 Neut Auto 57.3 % 0 Unknown COMPLETE BLOOD COUNT 6678476 Lymph Auto 29.3 % 09/30/19 20 Unknown COMPLETE BLOOD COUNT 4434615 Sharp Auto 7.6 % 0 Unknown COMPLETE BLOOD COUNT 8413485 RDW 13.8 % 0 Unknown COMPLETE BLOOD COUNT 7747925 Eos Auto 4.5 % 0 Unknown COMPLETE BLOOD COUNT 1016391 Baso Auto 1.3 % 0 Unknown COMPLETE BLOOD COUNT 5976931 Neutrophil Abs 3.04 10e9/L Unknown COMPLETE BLOOD COUNT 9305617 Lymphocyte Abs 1.55 10e9/L Unknown COMPLETE BLOOD COUNT 4076024 Monocyte Abs 0.40 10e9/L 11/2019 Unknown COMPLETE BLOOD COUNT 5515861 Eosinophil Abs 0.24 10e9/L Unknown COMPLETE BLOOD COUNT 2821581 RDW-SD 50.7 fL 0 Unknown COMPLETE BLOOD COUNT [id number] Basophil Abs 0.07 10e9/L 11/2019 Unknown Procedures Procedure Codes Date URINE CULTURE/ COLONY COUNT CPT-4: 97535 02/02/2021 ROUTINE VENIPUNCTURE CPT-4: 18299 01/25/2021 COMPREHEN METABOLIC PANEL CPT-4: 31962 01/25/2021 COMPLETE CBC W/AUTO DIFF WBC CPT-4: 36880 01/25/2021 URINE CULTURE/ COLONY COUNT CPT-4: 51676 01/25/2021 URINALYSIS NONAUTO W/O SCOPE CPT-4: 21022 01/25/2021 ROUTINE VENIPUNCTURE CPT-4: 88011 07/20/2020 COMPREHEN METABOLIC PANEL CPT-4: 33990 07/20/2020 ASSAY OF FREE THYROXINE CPT-4: 53836 07/20/2020 ASSAY THYROID STIM HORMONE CPT-4: 14060 07/20/2020 COMPLETE CBC W/AUTO DIFF WBC CPT-4: 31717 07/20/2020 RBC SED RATE AUTOMATED CPT-4: 38645 07/20/2020 URINALYSIS NONAUTO W/O SCOPE CPT-4: 51606 04/30/2020 URINE CULTURE/ COLONY COUNT CPT-4: 87223 04/30/2020 ROUTINE VENIPUNCTURE CPT-4: 86511 04/07/2020 COMPLETE CBC W/AUTO DIFF WBC CPT-4: 09198 04/07/2020 VITAMIN B-12 CPT-4: 34931 04/07/2020 ASSAY OF GGT CPT-4: 95881 04/07/2020 ROUTINE VENIPUNCTURE CPT-4: 84592 09/30/2019 ASSAY OF FREE THYROXINE CPT-4: 54858 09/30/2019 ASSAY THYROID STIM HORMONE CPT-4: 64633 09/30/2019 COMPREHEN METABOLIC PANEL CPT-4: 83737 09/30/2019 COMPLETE CBC W/AUTO DIFF WBC CPT-4: 16760 09/30/2019 LIPID PANEL CPT-4: 71534 09/30/2019 Vital Signs Date Vital 01/25/2021 Blood Pressure 1: 102/68 Code: 8480-6 Heart Rate 1: 76 bpm Respiratory Rate: 20 bpm SpO2: 100% Temperature: 36.9 (C) / 98.5 (F) We ight: 87 lbs Code: 68177-1 12/30/2020 Blood Pressure 1: 134/80 Code: 8480-6 BMI: 14.1 Code: 63662-5 Heart Rate 1: 72 bpm Height: 5'5" Code: 8302-2 Respiratory Rate: 18 bpm SpO2: 97% Temperature: 36.6 (C) / 97.8 (F) Weight: 85 lbs Code: 94251-6 11/10/2020 Blood Pressure 1: 130/74 Code: 8480-6 Heart Rate 1: 56 bpm Respiratory Rate: 20 bpm SpO2: 98% Temperature: 36.3 (C) / 97.4 (F) We ight: 85 lbs Code: 99081-6 07/29/2020 Blood Pressure 1: 121/65 Code: 8480-6 BMI: 14.3 Code: 62697-7 Heart Rate 1: 58 bpm Height: 5'5" Code: 8302-2 Respiratory Rate: 15 bpm SpO2: 98% Temperature: 36.9 (C) / 98.4 (F) Weight: 86 lbs Code: 13667-9 07/20/2020 Blood Pressure 1: 123/69 Code: 8480-6 Heart Rate 1: 68 bpm Respiratory Rate: 15 bpm SpO2: 99% Temperature: 36.6 (C) / 97.8 (F) We ight: 83 lbs Code: 67818-4 04/30/2020 Blood Pressure 1: 128/82 Code: 8480-6 Heart Rate 1: 68 bpm Respiratory Rate: 20 bpm SpO2: 95% Temperature: 36.5 (C) / 97.7 (F) We ight: 91 lbs Code: 09556-1 04/09/2020 Blood Pressure 1: 130/78 Code: 8480-6 Heart Rate 1: 68 bpm Respiratory Rate: 20 bpm SpO2: 99% Temperature: 36.3 (C) / 97.4 (F) We ight: 90 lbs Code: 34718-5 11/22/2019 Temperature: 36.3 (C) / 97.3 (F) 09/10/2019 Blood Pressure 1: 128/72 Code: 8480-6 BMI: 15.6 Code: 77446-9 Heart Rate 1: 68 bpm Height: 5'5" Code: 8302-2 Respiratory Rate: 20 bpm SpO2: 97% Temperature: 36.6 (C) / 97.9 (F) Weight: 94 lbs Code: 51372-4 Functional Status No Functional Status data Reason [...] Urinary tract infection[ICD10: N39.0] Robson [facility] CPT-4: 29104 02/02/2021 ([id number]) OFFICE/OUTPATIENT VISIT EST Diagnosis: Fatigue[ICD10: R53.83] Diagnosis: Blood loss anemia[ICD10: D50.0] Diagnosis: Coronary artery disease[ICD10: I25.10] Diagnosis: Hematuria[ICD10: R31.9] Robson HCANEL [facility] CPT-4: 60397 01/25/2021 ([id number]) OFFICE/OUTPATIENT VISIT EST Diagnosis: GERD (gastroesophageal reflux disease)[ICD10: K21.9] Diagnosis: Duodenal ulcer[ICD10: K26.9] Diagnosis: Coronary artery disease[ICD10: I25.10] Diagnosis: Anxiety[ICD10: F41.9] Diagnosis: Blood loss anemia[ICD10: D50.0] Robson MCCORMICK [facility] CPT-4: 41213 12/30/2020 ([id number]) NURSE/OUTPATIENT VISIT EST Diagnosis: Edema[ICD10: R60.9] Robson MCCORMICK [facility] CPT-4: 03150 12/21/2020 ([id number]) OFFICE/OUTPATIENT VISIT EST Diagnosis: Coronary artery disease[ICD10: I25.10] Diagnosis: Essential (primary) hypertension[ICD10: I10] Diagnosis: Stress reaction[ICD10: F43.0] Diagnosis: Insomnia[ICD10: G47.00] Diagnosis: Pulmonary nodule[ICD10: R91.1] Robson MCCORMICK [facility] CPT-4: 47179 11/10/2020 ([id number]) NO CHARGE Diagnosis: Mass of upper lobe of right lung[ICD10: R91.8] Robson MCCORMICK [facility] CPT-4: 17002 07/29/2020 ([id number]) OFFICE/OUTPATIENT VISIT EST Diagnosis: Fatigue[ICD10: R53.83] Diagnosis: Lymphadenopathy of head and neck[ICD10: R59.1] Diagnosis: Weight loss, non-intentional[ICD10: R63.4] Diagnosis: History of melanoma[ICD10: Z85.820] Diagnosis: Skin lesion[ICD10: L98.9] Sara Aguila [facility]UNE[facility] CPT-4: 38057 07/20/2020 ([id number]) OFFICE/OUTPATIENT VISIT EST Diagnosis: Urinary tract infection[ICD10: N39.0] Meena MCCORMICK DO [facility] CPT-4: 25960 04/30/2020 ([id number]) OFFICE/OUTPATIENT VISIT EST Diagnosis: Dizziness[ICD10: R42] Diagnosis: Depressed mood with feeling of loneliness[ICD10: F32.9] Diagnosis: Insomnia[ICD10: G47.00] Robson CHANEL [facility] CPT-4: 33731 04/09/2020 ([id number]) NURSE/OUTPATIENT VISIT EST Diagnosis: Coronary artery disease[ICD10: I25.10] Diagnosis: Fatigue[ICD10: R53.83] Diagnosis: Essential (primary) hypertension[ICD10: I10] Robson MCCORMICK [facility] CPT-4: 00087 04/07/2020 ([id number]) OFFICE/OUTPATIENT VISIT EST Diagnosis: Fatigue[ICD10: R53.83] Meena Li [facility] CPT-4: 77043 11/22/2019 ([id number]) NURSE/OUTPATIENT VISIT EST Diagnosis: Essential (primary) hypertension[ICD10: I10] Diagnosis: Coronary artery disease[ICD10: I25.10] Diagnosis: Encounter for general adult medical examination with abnormal findings[ICD10: Z00.01] Robson MCCORMICK [facility] CPT-4: 79320 09/30/2019 ([id number]) OFFICE/OUTPATIENT VISIT NEW Diagnosis: Essential (primary) hypertension[ICD10: I10] Diagnosis: Coronary artery disease[ICD10: I25.10] Diagnosis: Aortic valve stenosis with insufficiency[ICD10: I35.2] Robson MCCORMICK [facility] CPT-4: 47387 09/10/2019 Plan of Care Planned Activity Notes Codes Status Date Care Plan: UA W/MICR ADD ON ORDER LOINC : 93481-2 Pending 01/26/2021 Visit Diagnosis Plan: Hematuria Discussion: Culture ur ine ICD-9 : 599.70 ICD-10 : R31.9 01/25/2021 Visit Diagnosis Plan: Blood loss anemia Discussion: Ch real CBC now ICD-9 : 280.0 ICD-10 : D50.0 01/25/2021 Appointment: Robson Mccormick WPtel: [address] [place], [place] [phone] ACUTE ILLNESS 01/25/2021 Appointment[facility] MemoSara lo[facility] [phone] [facility] [facility] 01/01/2021 Visit Diagnosis Plan: [...] : K21.9 12/30/2020 Appointment: Robson Mccormick WPtel: [address] [place], [place] [phone] FOLLOW UP 12/30/2020 Appointment: Robson Mccormick WPtel: [address] [place], [place] [phone] NURSE SERVICES 12/21/2020 Visit Diagnosis Plan: Insomnia [...] : F43.0 11/10/2020 [facility]ointment[facility]orm[facility] [phone] [facility] [facility] 11/10/2020 Patient Education: [email or web address]- [email or web address] Coupon [id number] [email or web address] Completed 11/10/2020 Visit Diagnosis Plan: Mass of upper lobe of right lung Discussion: CT scan of lung results discussed with patient and told this looks like cancer Agrees to see pulmonology to see if will be amenable to bronchoscopy to get cells/washings ICD-9 : 786.6 ICD-10 : R91.8 07/29/2020 Appointment: [facility]ccorm[facility] [phone] [facility] [facility] IN 07/29/2020 Care Plan: Referral Order SNOMED-CT : [id number] Pending 07/29/2020 Care Plan: CT SFT TSUE NCK W/O & W/DYE L OINC : 41619-0 Pending 07/21/2020 Visit Diagnosis Plan: Fatigue Discussion: [...] 07/20/2020 Appointment: Sara Aguila WPtel: [phone] [facility] ACUTE ILLNESS 07/20/2020 Patient Education: [...] ICD-10 : N39.0 04/30/2020 Appointment: Meena Li [address] [place] [address] ACUTE ILLNESS 04/30/2020 Appointment: Meena Li [address] [place], [place] [id number] 04/21/2020 1020---patient needed seen fo [...] F32.9 04/09/2020 Appointment: Robson Mccormick WPtel: [phone] [phone] FOLLOW UP 04/09/2020 Care Plan: COMPREHEN METABOLIC [place] : 13011-7 Pending 04/09/2020 Appointment: Robson Mccormick WPtel: [phone] [facility] US LAB 04/07/2020 Visit Diagnosis Plan: Fatigue Discussion: no other sym ptoms other than fatigue for 4 weeks so will update labs. order sent to [facility] for blood work and ua with c&s. instructed to call office with new or worsening symptoms. ICD-9 : 780.79 ICD-10 : R53.83 11/22/2019 Appointment: Meena Li [address] [place], [place] [phone] TELEMEDICINE 11/22/2019 Appointment: Robson Mccormick WPtel: [address] [place], [place] [phone] US LAB 09/30/2019 Visit Diagnosis Plan: Coronary [...] : I10 09/10/2019 Appointment: Robson Mccormick WPtel: [address] [place], [place] [phone] NEW PATIENT 09/10/2019 Patient Education: carvedilol- [employer] Coupon [phone] [email or web address] Completed 09/10/2019 Appointment: Robson Mccormick WPtel: [address] [place], [place] [phone] US RESCHEDULED 08/20/2019 Appointment: Robson Mccormick WPtel: [address] [place], [place] [phone] US CANCELED 07/22/2019 Referral: Vikram Maguire WPtel: [address] [facility] [address] [id number] [place] Referral Appointment Requested Instructions No Instructions Medical Equipment No Medical Equipment data Health Concerns Section Health Concerns data not found Goals Section Goals data not found Interventions Section Interventions data not found Health Status Evaluations/Outcomes Section Health Status Evaluations/Outcomes data not found Advance Directives No Advance Directive data
--- OUTSIDE RECORDS SUMMARY | 2021-02-15 18:53 | XMS REPORT | CCD ---
Author Author Erica Mccormick D.O. 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 Name Role Phone PP Unavailable CCM Unavailable Summary Purpose Interface Exchange Insurance Providers Payer name Policy type / Coverage type Covered libertarian ID Effective Begin Date Effective End Date WPS MEDICARE PART B [place] Medicare Part B [id number] Unknown Unknown BLUE [employer] [place] MEDIC[place] Medicare Part B X [id number] Unknown Unknown Family History Family History data not found Social History Social History Element Codes Description Effective Dates Marital status Unknown 09/10/2019 Number of children Unknown 1 09/10/2019 Employment Unknown Retired 09/10/[address]: 5828205 Former smoker quit 201109/10/[address]: 581147 Currently drinks alcohol 09/09 Frequency of drinks SNOMED CT: 887610354 1-4 drinks per week Allergies, Adverse Reactions, [...] Hematuria ICD-10: R31.9 ICD-9: 599.70 01/25/2021 Active Urinary tract infection ICD-10: N39.0 ICD-9: 599.0 04/30/2020 Active Blood loss anemia ICD-10: D50.0 ICD-9: [...] 325 mg (65 mg iron) tablet RxNorm: 137161 Take 1 Tablet(s) Oral QD 01/28/2021 No Stop Date Active paroxetine 20 mg tablet RxNorm: 1874793 1 Tablet(s) Oral QD 01/20/2021 Inactive pantoprazole 20 mg tablet,delayed release RxNorm: 239623 1 Tablet(s) Oral two times a day 12/22/2020 03/21/2021 Active pantoprazole 20 mg tablet,delayed release RxNorm: 867576 1 Tablet(s) Oral two times a day 12/22/2020 12/22/2020 Inactive paroxetine 20 mg tablet RxNorm: 1496233 1 Tablet(s) Oral QD 12/15/2020 Inactive paroxetine 20 mg tablet RxNorm: 8003646 1 Tablet(s) Oral QD 12/15/2020 Inactive MagOx 400 mg (241.3 mg magnesium) tablet RxNorm: 435135 Take 1 Tablet(s) Oral every night at bedtime with melatonin 11/23/2020 01/24/2021 Inactive melatonin 3 mg tablet RxNorm: 381724 Take 1-2 Tablet(s) Oral every night at bedtime 11/18/2020 No Stop Date Active atorvastatin 40 mg tablet RxNorm: 655403 Take 1 Tablet( s) Oral every night at bedtime 11/10/2020 No Stop Date Active Plavix 75 mg tablet RxNorm: 168496 Take 1 Tablet(s) Oral QD No Stop Date Active trazodone 50 mg tablet RxNorm: 312990 Take 1-2 Tablet(s ) Oral QPM as needed for sleep 11/10/2020 11/22/2020 Inactive alprazolam 0.25 mg tablet RxNorm: 277120 1/2-1 Tablet(s ) Oral QPM as needed for sleep 08/03/2020 09/01/2020 Inactive alprazolam 0.25 mg tablet RxNorm: 048387 1/2-1 Tablet(s ) Oral QPM as needed for sleep 08/03/2020 08/02/2020 Inactive Aspirin Low Dose 81 mg tablet,delayed release RxNorm: 208844 1 Tablet(s) Oral QD 09/10/2019 No Stop Date Active losartan 25 mg tablet RxNorm: 979636 1 Tablet(s) Oral QD 09/10/2019 No Stop Date Active carvedilol 6.25 mg tablet RxNorm: 228865 1 Tablet(s) Oral two t imes a day 09/10/2019 11/09/2020 Inactive Fish Oil 1,000 mg (120 mg-180 mg) capsule RxNorm: 1 Caps ule(s) Oral QD 09/10/2019 11/25/2019 Inactive Medication Administered No Medication Administered data Immunizations No Immunization data Results Observation Observation Code Item Item Code Result Date S ervice Location UA W/MICR [id number] UA Protein TNP:Specimen Integrity 01/27 Unknown UA W/MICR 75519 UA Hemoglobin TNP:Specimen Integrity Unknown UA W/MICR 08258 UA Glucose TNP:Specimen Integrity 01/27 Unknown UA W/MICR 71581 UA Ketones TNP:Specimen Integrity 01/27 Unknown UA W/MICR 39966 UA pH TNP:Specimen Integrity 2020 Unknown UA W/MICR 49600 U Spec [place] TNP:Specimen Integrity 1 Unknown UA W/MICR 37602 UA Bilirubin TNP:Specimen Integrity 09/2020 Unknown UA W/MICR 57281 UA Leuk [place] TNP:Specimen Integrity 01/27/2021 Unknown UA W/MICR 84477 UA Nitrite TNP:Specimen Integrity 01/27 Unknown UA W/MICR 32322 UA WBC/hpf TNP:Specimen Integrity 01/27 Unknown UA W/MICR 04219 UA RBC hpf TNP:Specimen Integrity 01/27 Unknown COMPLETE BLOOD COUNT [id number] WBC 6.1 10e9/L 01/26/20 21 Unknown COMPLETE BLOOD COUNT [id number] RBC 3.34 10e12/L 2020 Unknown COMPLETE BLOOD COUNT 0374431 HEMOGLOBIN 8.8 g/dL 01/26/20 21 Unknown COMPLETE BLOOD COUNT [id number] HEMATOCRIT 28.5 % 01/26/20 21 Unknown COMPLETE BLOOD COUNT [id number] MCV 85.3 fL Unknown COMPLETE BLOOD COUNT [id number] MCH 26.3 pg 10/04/202 1 Unknown COMPLETE BLOOD COUNT 4071452 MCHC 30.9 g/dL 1 Unknown COMPLETE BLOOD COUNT 8404160 PLATELET COUNT 268 10e9/L 07/2020 Unknown COMPLETE BLOOD COUNT [id number] Mean Plt Volume 8.7 fL 07/2020 Unknown COMPLETE BLOOD COUNT 0244994 Neut Auto 67.7 % 1 Unknown COMPLETE BLOOD COUNT [id number] Lymph Auto 19.4 % 01/26/20 21 Unknown COMPLETE BLOOD COUNT 1598804 Bond Auto 8.4 % 1 Unknown COMPLETE BLOOD COUNT [id number] RDW 16.7 % 1 Unknown COMPLETE BLOOD COUNT 8174406 Eos Auto 3.8 % 1 Unknown COMPLETE BLOOD COUNT [id number] Baso Auto 0.7 % 1 Unknown COMPLETE BLOOD COUNT 0832630 Neutrophil Abs 4.13 10e9/L Unknown COMPLETE BLOOD COUNT 5366026 Lymphocyte Abs 1.18 10e9/L Unknown COMPLETE BLOOD COUNT [id number] Monocyte Abs 0.51 10e9/L 07/2020 Unknown COMPLETE BLOOD COUNT 2398873 Eosinophil Abs 0.23 10e9/L Unknown COMPLETE BLOOD COUNT [id number] RDW-SD 50.9 fL 1 Unknown COMPLETE BLOOD COUNT [id number] Basophil Abs 0.04 10e9/L 07/2020 Unknown GFR CALC 5303035 GFR Non Afr Amr >60 mL/min 01/25/2021 Un known GFR CALC [id number] GFR Afr Amr >60 mL/min 01/25/2021 Unknow n COMPREHENSIVE METABOLIC 15457 AST 17 U/L 2020 Unknown COMPREHENSIVE METABOLIC 68889 ALT 13 U/L 2020 Unknown COMPREHENSIVE METABOLIC 32500 BUN 14 mg/dL 2020 Unknown COMPREHENSIVE METABOLIC 21667 ALBUMIN 4.1 g/dL 2020 Unknown COMPREHENSIVE METABOLIC 03151 CHLORIDE 102 mmol/L 01/25 Unknown COMPREHENSIVE METABOLIC 79519 Bili Total 0.4 mg/dL 01/25 Unknown COMPREHENSIVE METABOLIC 24205 ALK PHOS 85 U/L 2020 Unknown COMPREHENSIVE METABOLIC 35015 SODIUM 134 mmol/L 01/25 Unknown COMPREHENSIVE METABOLIC 17881 CREATININE 0.71 mg/dL 07/2020 Unknown COMPREHENSIVE METABOLIC 41613 CALCIUM 9.3 mg/dL 2020 Unknown COMPREHENSIVE METABOLIC 07867 POTASSIUM 4.3 mmol/L 01/25 Unknown COMPREHENSIVE METABOLIC 93710 Total Protein 7.0 g/dL Unknown COMPREHENSIVE METABOLIC 26112 Glucose 111 mg/dL 2020 Unknown COMPREHENSIVE METABOLIC 09442 Bicarbonate 24 mmol/L 07/2020 Unknown COMPREHENSIVE METABOLIC 42205 AGAP 8 mmol/L 2020 Unknown COMPREHENSIVE METABOLIC 11668 AST 16 U/L 2019 Unknown COMPREHENSIVE METABOLIC 72899 ALT 12 U/L 2019 Unknown COMPREHENSIVE METABOLIC 07348 BUN 13 mg/dL 2019 Unknown COMPREHENSIVE METABOLIC 82102 ALBUMIN 4.1 g/dL 2019 Unknown COMPREHENSIVE METABOLIC 83208 CHLORIDE 96 mmol/L 2019 Unknown COMPREHENSIVE METABOLIC 96658 Bili Total 1.1 mg/dL 04/09 Unknown COMPREHENSIVE METABOLIC 77508 ALK PHOS 80 U/L 2019 Unknown COMPREHENSIVE METABOLIC 37567 SODIUM 131 mmol/L 04/09 Unknown COMPREHENSIVE METABOLIC 53172 CREATININE 0.76 mg/dL 03/24 Unknown COMPREHENSIVE METABOLIC 76022 CALCIUM 9.0 mg/dL 2019 Unknown COMPREHENSIVE METABOLIC 68269 POTASSIUM 4.2 mmol/L 04/09 Unknown COMPREHENSIVE METABOLIC 95114 Total Protein 6.8 g/dL Unknown COMPREHENSIVE METABOLIC 02114 Glucose 101 mg/dL 2019 Unknown COMPREHENSIVE METABOLIC 39548 Bicarbonate 25 mmol/L 03/24 Unknown COMPREHENSIVE METABOLIC 98682 AGAP 10 mmol/L 2019 Unknown GFR CALC 0947668 GFR Non Afr Amr >60 mL/min 04/09/2020 Un known GFR CALC [id number] GFR Afr Amr >60 mL/min 04/09/2020 Unknow n GAMMA GLUTAMYL TRANSFERASE 12503 GGT 19 U/L Unknown COMPLETE BLOOD COUNT 8608906 WBC 6.3 10e9/L 04/07/20 20 Unknown COMPLETE BLOOD COUNT 3784634 RBC 4.36 10e12/L 2019 Unknown COMPLETE BLOOD COUNT 3635278 HEMOGLOBIN 15.2 g/dL 04/07/20 20 Unknown COMPLETE BLOOD COUNT [id number] HEMATOCRIT 43.8 % 04/07/20 20 Unknown COMPLETE BLOOD COUNT 7215656 MCV 100.5 fL 0 Unknown COMPLETE BLOOD COUNT 8384696 MCH 34.9 pg 0 Unknown COMPLETE BLOOD COUNT 9583032 MCHC 34.7 g/dL 0 Unknown COMPLETE BLOOD COUNT 8940267 PLATELET COUNT 254 10e9/L Unknown COMPLETE BLOOD COUNT 9841496 Mean Plt Volume 9.9 fL Unknown COMPLETE BLOOD COUNT 2962145 Neut Auto 63.3 % 0 Unknown COMPLETE BLOOD COUNT 5055259 Lymph Auto 24.5 % 04/07/20 20 Unknown COMPLETE BLOOD COUNT 8475910 Bond Auto 8.4 % 0 Unknown COMPLETE BLOOD COUNT 0427793 RDW 12.8 % 0 Unknown COMPLETE BLOOD COUNT 5651997 Eos Auto 3.2 % 0 Unknown COMPLETE BLOOD COUNT 3149449 Baso Auto 0.6 % 0 Unknown COMPLETE BLOOD COUNT 6376543 Neutrophil Abs 3.99 10e9/L Unknown COMPLETE BLOOD COUNT 2145761 Lymphocyte Abs 1.54 10e9/L Unknown COMPLETE BLOOD COUNT 3550445 Monocyte Abs 0.53 10e9/L 03/24 Unknown COMPLETE BLOOD COUNT 1578462 Eosinophil Abs 0.20 10e9/L Unknown COMPLETE BLOOD COUNT 7288908 RDW-SD 47.6 fL 0 Unknown COMPLETE BLOOD COUNT 0228304 Basophil Abs 0.04 10e9/L 03/24 Unknown VITAMIN B 12 78677 VITAMIN B12 661 pg/mL 04/07/2020 Unkn own LIPID GROUP 49887 Cholesterol 168 mg/dL 09/30/2019 Unkno wn LIPID GROUP 72846 Triglyceride 141 mg/dL 09/30/2019 Unkn own LIPID GROUP 33752 HDL CHOLESTEROL 66 mg/dL 09/30/2019 U nknown LIPID GROUP 55915 Chol/HDL Ratio 2.55 ratio 09/30/2019 U nknown LIPID GROUP 66822 NON-HDL Chol 102 mg/dL 09/30/2019 Unkn own LIPID GROUP 12333 LDL Cholesterol 74 mg/dL 09/30/2019 U nknown FREE T4 09710 T4 Free 0.76 ng/dL 09/30/2019 Unknown THYROID STIMULATING HORMONE 58439 TSH 2.186 uIU/mL 09/30/2019 Unknown GFR CALC 6431454 GFR Non Afr Amr >60 mL/min 09/30/2019 Un known GFR CALC 4183118 GFR Afr Amr >60 mL/min 09/30/2019 Unknow n COMPREHENSIVE METABOLIC 02850 AST 14 U/L 2019 Unknown COMPREHENSIVE METABOLIC 05724 ALT 11 U/L 2019 Unknown COMPREHENSIVE METABOLIC 92600 BUN 15 mg/dL 2019 Unknown COMPREHENSIVE METABOLIC 73714 ALBUMIN 4.0 g/dL 2019 Unknown COMPREHENSIVE METABOLIC 19509 CHLORIDE 96 mmol/L 2019 Unknown COMPREHENSIVE METABOLIC 52580 Bili Total 0.9 mg/dL 09/29 Unknown COMPREHENSIVE METABOLIC 03318 ALK PHOS 72 U/L 2019 Unknown COMPREHENSIVE METABOLIC 83987 SODIUM 132 mmol/L 09/29 Unknown COMPREHENSIVE METABOLIC 94118 CREATININE 0.73 mg/dL 11/2019 Unknown COMPREHENSIVE METABOLIC 95382 CALCIUM 9.1 mg/dL 2019 Unknown COMPREHENSIVE METABOLIC 01192 POTASSIUM 4.6 mmol/L 09/29 Unknown COMPREHENSIVE METABOLIC 48129 Total Protein 6.4 g/dL Unknown COMPREHENSIVE METABOLIC 07357 Glucose 97 mg/dL 2019 Unknown COMPREHENSIVE METABOLIC 43404 Bicarbonate 25 mmol/L 11/2019 Unknown COMPREHENSIVE METABOLIC 82451 AGAP 11 mmol/L 2019 Unknown COMPLETE BLOOD COUNT 5270311 WBC 5.3 10e9/L 09/30/19 20 Unknown COMPLETE BLOOD COUNT 0886362 RBC 4.16 10e12/L 2019 Unknown COMPLETE BLOOD COUNT 6263553 HEMOGLOBIN 14.1 g/dL 09/30/19 20 Unknown COMPLETE BLOOD COUNT 9807860 HEMATOCRIT 42.6 % 09/30/19 20 Unknown COMPLETE BLOOD COUNT 8050791 MCV 102.4 fL 0 Unknown COMPLETE BLOOD COUNT 7764973 MCH 33.9 pg 0 Unknown COMPLETE BLOOD COUNT 0122065 MCHC 33.1 g/dL 0 Unknown COMPLETE BLOOD COUNT 8401373 PLATELET COUNT 273 10e9/L 11/2019 Unknown COMPLETE BLOOD COUNT 2657952 Mean Plt Volume 9.4 fL 11/2019 Unknown COMPLETE BLOOD COUNT 5890606 Neut Auto 57.3 % 0 Unknown COMPLETE BLOOD COUNT 5345748 Lymph Auto 29.3 % 09/30/19 20 Unknown COMPLETE BLOOD COUNT 2115233 Bond Auto 7.6 % 0 Unknown COMPLETE BLOOD COUNT 1729928 RDW 13.8 % 0 Unknown COMPLETE BLOOD COUNT 7321843 Eos Auto 4.5 % 0 Unknown COMPLETE BLOOD COUNT 0793173 Baso Auto 1.3 % 0 Unknown COMPLETE BLOOD COUNT 8241608 Neutrophil Abs 3.04 10e9/L Unknown COMPLETE BLOOD COUNT 3198396 Lymphocyte Abs 1.55 10e9/L Unknown COMPLETE BLOOD COUNT 2656054 Monocyte Abs 0.40 10e9/L 11/2019 Unknown COMPLETE BLOOD COUNT 1824753 Eosinophil Abs 0.24 10e9/L Unknown COMPLETE BLOOD COUNT 8990744 RDW-SD 50.7 fL 0 Unknown COMPLETE BLOOD COUNT [id number] Basophil Abs 0.07 10e9/L 11/2019 Unknown Procedures Procedure Codes Date UA W/MICR CPT-4: 83194 02/15/2021 URINE CULTURE/ COLONY COUNT CPT-4: 75546 02/02/2021 ROUTINE VENIPUNCTURE CPT-4: 68994 01/25/2021 COMPREHEN METABOLIC PANEL CPT-4: 51643 01/25/2021 COMPLETE CBC W/AUTO DIFF WBC CPT-4: 73400 01/25/2021 URINE CULTURE/ COLONY COUNT CPT-4: 42724 01/25/2021 URINALYSIS NONAUTO W/O SCOPE CPT-4: 21233 01/25/2021 ROUTINE VENIPUNCTURE CPT-4: 44198 07/20/2020 COMPREHEN METABOLIC PANEL CPT-4: 85319 07/20/2020 ASSAY OF FREE THYROXINE CPT-4: 14254 07/20/2020 ASSAY THYROID STIM HORMONE CPT-4: 54571 07/20/2020 COMPLETE CBC W/AUTO DIFF WBC CPT-4: 38563 07/20/2020 RBC SED RATE AUTOMATED CPT-4: 14949 07/20/2020 URINALYSIS NONAUTO W/O SCOPE CPT-4: 40711 04/30/2020 URINE CULTURE/ COLONY COUNT CPT-4: 26881 04/30/2020 ROUTINE VENIPUNCTURE CPT-4: 68342 04/07/2020 COMPLETE CBC W/AUTO DIFF WBC CPT-4: 46813 04/07/2020 VITAMIN B-12 CPT-4: 85612 04/07/2020 ASSAY OF GGT CPT-4: 52370 04/07/2020 ROUTINE VENIPUNCTURE CPT-4: 94329 09/30/2019 ASSAY OF FREE THYROXINE CPT-4: 14501 09/30/2019 ASSAY THYROID STIM HORMONE CPT-4: 19707 09/30/2019 COMPREHEN METABOLIC PANEL CPT-4: 10765 09/30/2019 COMPLETE CBC W/AUTO DIFF WBC CPT-4: 48597 09/30/2019 LIPID PANEL CPT-4: 50471 09/30/2019 Vital Signs Date Vital 01/25/2021 Blood Pressure 1: 102/68 Code: 8480-6 Heart Rate 1: 76 bpm Respiratory Rate: 20 bpm SpO2: 100% Temperature: 36.9 (C) / 98.5 (F) We ight: 87 lbs Code: 71490-0 12/30/2020 Blood Pressure 1: 134/80 Code: 8480-6 BMI: 14.1 Code: 91763-8 Heart Rate 1: 72 bpm Height: 5'5" Code: 8302-2 Respiratory Rate: 18 bpm SpO2: 97% Temperature: 36.6 (C) / 97.8 (F) Weight: 85 lbs Code: 22943-6 11/10/2020 Blood Pressure 1: 130/74 Code: 8480-6 Heart Rate 1: 56 bpm Respiratory Rate: 20 bpm SpO2: 98% Temperature: 36.3 (C) / 97.4 (F) We ight: 85 lbs Code: 52376-0 07/29/2020 Blood Pressure 1: 121/65 Code: 8480-6 BMI: 14.3 Code: 67427-7 Heart Rate 1: 58 bpm Height: 5'5" Code: 8302-2 Respiratory Rate: 15 bpm SpO2: 98% Temperature: 36.9 (C) / 98.4 (F) Weight: 86 lbs Code: 65259-3 07/20/2020 Blood Pressure 1: 123/69 Code: 8480-6 Heart Rate 1: 68 bpm Respiratory Rate: 15 bpm SpO2: 99% Temperature: 36.6 (C) / 97.8 (F) We ight: 83 lbs Code: 41953-0 04/30/2020 Blood Pressure 1: 128/82 Code: 8480-6 Heart Rate 1: 68 bpm Respiratory Rate: 20 bpm SpO2: 95% Temperature: 36.5 (C) / 97.7 (F) We ight: 91 lbs Code: 33386-9 04/09/2020 Blood Pressure 1: 130/78 Code: 8480-6 Heart Rate 1: 68 bpm Respiratory Rate: 20 bpm SpO2: 99% Temperature: 36.3 (C) / 97.4 (F) We ight: 90 lbs Code: 40268-4 11/22/2019 Temperature: 36.3 (C) / 97.3 (F) 09/10/2019 Blood Pressure 1: 128/72 Code: 8480-6 BMI: 15.6 Code: 59452-4 Heart Rate 1: 68 bpm Height: 5'5" Code: 8302-2 Respiratory Rate: 20 bpm SpO2: 97% Temperature: 36.6 (C) / 97.9 (F) Weight: 94 lbs Code: 43549-6 Functional Status No Functional Status data Reason For Visit Reason For Visit Effective Dates Notes blood in urine 02/15/2021 urine for microscopy per Dr pires 01/25/2021 follow up 12/30/2020 Patient had bleeding [...] frequent urination 04/30/2020 follow up 04/09/2020 Discuss labs---patimarco nt has been holding iron and vitamin b12. She has started taking nature balance mutivitamins fatigue 11/22/2019 ~generic 09/10/2019 New Patient---julio russo visit Encounters Encounter Performer Location Codes Date () NURSE/OUTPATIENT VISIT EST Diagnosis: Urinary tract infection[ICD10: N39.0] Robson MCCORMICK DO [facility] CPT-4: 52089 02/02/2021 ([id number]) OFFICE/OUTPATIENT VISIT EST Diagnosis: Fatigue[ICD10: R53.83] Diagnosis: Blood loss anemia[ICD10: D50.0] Diagnosis: Coronary artery disease[ICD10: I25.10] Diagnosis: Hematuria[ICD10: R31.9] Robson CHANEL DO [facility] CPT-4: 03449 01/25/2021 ([id number]) OFFICE/OUTPATIENT VISIT EST Diagnosis: GERD (gastroesophageal reflux disease)[ICD10: K21.9] Diagnosis: Duodenal ulcer[ICD10: K26.9] Diagnosis: Coronary artery disease[ICD10: I25.10] Diagnosis: Anxiety[ICD10: F41.9] Diagnosis: Blood loss anemia[ICD10: D50.0] Robson MCCORMICK DO [facility] CPT-4: 12425 12/30/2020 ([id number]) NURSE/OUTPATIENT VISIT EST Diagnosis: Edema[ICD10: R60.9] Robson MCCORMICK DO [facility] CPT-4: 52131 12/21/2020 ([id number]) OFFICE/OUTPATIENT VISIT EST Diagnosis: Coronary artery disease[ICD10: I25.10] Diagnosis: Essential (primary) hypertension[ICD10: I10] Diagnosis: Stress reaction[ICD10: F43.0] Diagnosis: Insomnia[ICD10: G47.00] Diagnosis: Pulmonary nodule[ICD10: R91.1] Robson MCCORMICK DO [facility] CPT-4: 43260 11/10/2020 ([id number]) NO CHARGE Diagnosis: Mass of upper lobe of right lung[ICD10: R91.8] Robson MCCORMICK DO [facility] CPT-4: 15327 07/29/2020 ([id number]) OFFICE/OUTPATIENT VISIT EST Diagnosis: Fatigue[ICD10: R53.83] Diagnosis: Lymphadenopathy of head and neck[ICD10: R59.1] Diagnosis: Weight loss, non-intentional[ICD10: R63.4] Diagnosis: History of melanoma[ICD10: Z85.820] Diagnosis: Skin lesion[ICD10: L98.9] Sara Aguila ROBSONGÓMEZ NUNEZ DO [facility] CPT-4: 51516 07/20/2020 ([id number]) OFFICE/OUTPATIENT VISIT EST Diagnosis: Urinary tract infection[ICD10: N39.0] Meena MCCORMICK DO [facility] CPT-4: 70341 04/30/2020 ([id number]) OFFICE/OUTPATIENT VISIT EST Diagnosis: Dizziness[ICD10: R42] Diagnosis: Depressed mood with feeling of loneliness[ICD10: F32.9] Diagnosis: Insomnia[ICD10: G47.00] Robson CHANCE KatherineNilda EVGENY CHANEL [employer] [facility] CPT-4: 23245 04/09/2020 ([id number]) NURSE/OUTPATIENT VISIT EST Diagnosis: Coronary artery disease[ICD10: I25.10] Diagnosis: Fatigue[ICD10: R53.83] Diagnosis: Essential (primary) hypertension[ICD10: I10] Robson CHANCE KatherineNilda CHELY [employer] CPT-4: 42528 04/07/2020 ([id number]) OFFICE/OUTPATIENT VISIT EST Diagnosis: Fatigue[ICD10: R53.83] Meena Li [facility] CPT-4: 68719 11/22/2019 ([id number]) NURSE/OUTPATIENT VISIT EST Diagnosis: Essential (primary) hypertension[ICD10: I10] Diagnosis: Coronary artery disease[ICD10: I25.10] Diagnosis: Encounter for general adult medical examination with abnormal findings[ICD10: Z00.01] Robson CHANCE KatherineNilda CHELY [facility] CPT-4: 73232 09/30/2019 ([id number]) OFFICE/OUTPATIENT VISIT NEW Diagnosis: Essential (primary) hypertension[ICD10: I10] Diagnosis: Coronary artery disease[ICD10: I25.10] Diagnosis: Aortic valve stenosis with insufficiency[ICD10: I35.2] Robson CHANCE KatherineNilda CHELY JACOBS [facility] CPT-4: 77599 09/10/2019 Plan of Care Planned Activity Notes Codes Status Date Appointment: [phone] [facility] [facility] 02/02/2021 Appointment: Robson Mccormick WPtel: [address] [place], [place] [id number] UA 02/02/2021 Care Plan: UA W/MICR ADD ON ORDER LOINC : 28031-8 Pending 01/26/2021 Visit Diagnosis Plan: Hematuria Discussion: Culture ur ine ICD-9 : 599.70 ICD-10 : R31.9 01/25/2021 Visit Diagnosis Plan: Blood loss anemia Discussion: Ch real CBC now ICD-9 : 280.0 ICD-10 : D50.0 01/25/2021 Appointment: Robson Mccormick WPtel: [address] [place], [place] [phone] ACUTE ILLNESS 01/25/2021 Appointment: Sara Aguila WPtel: [phone] [facility] [facility] CANCELED 01/01/2021 Visit Diagnosis Plan: Anxiety [...] : K21.9 12/30/2020 Appointment: Robson Mccormick WPtel: [address] [place], [place] [phone] US FOLLOW UP 12/30/2020 Appointment: Robson Mccormick WPtel: [address] [place], [place] [id number] NURSE SERVICES 12/21/2020 Visit Diagnosis Plan: Insomnia [...] : F43.0 11/10/2020 Appointment: Rob[facility]ccormick [facility]el[facility] [phone] [facility] [facility] 11/10/2020 Patient Education: trazodone- Optimize[employer] Coupon [id number] [email or web address]/resources/getResource/[email or web address] Completed 11/10/2020 Visit Diagnosis Plan: Mass of upper lobe of right lung Discussion: CT scan of lung results discussed with patient and told this looks like cancer Agrees to see pulmonology to see if will be amenable to bronchoscopy to get cells/washings ICD-9 : 786.6 ICD-10 : R91.8 07/29/2020 Appointment: Robson Mccormick [facility]el[facility] [phone] [facility] [facility] IN 07/29/2020 Care Plan: Referral Order SNOMED-CT : [id number] Pending 07/29/2020 Care Plan: CT SFT TSUE NCK W/O & W/DYE L OIRI : 25429-4 Pending 07/21/2020 Visit Diagnosis Plan: Fatigue Discussion: [...] : 709.9 ICD-10 : L98.9 07/20/2020 Appointment: MingoSara WPtel: [phone] ACUTE ILLNESS 07/20/2020 Patient Education: Patient Medication [...] ICD-10 : N39.0 04/30/2020 Appointment: Meena Li [address] [place] [address] ACUTE ILLNESS 04/30/2020 Appointment: Meena Li [address] [place] [address] 04/21/2020 1020---patient needed seen fo r appointment [...] F32.9 04/09/2020 Appointment: Robson Mccormick WPtel: [phone] FOLLOW UP 04/09/2020 Care Plan: COMPREHEN [place]AB[place] : 26294-0 Pending 04/09/2020 Appointment: Robson Mccormick WPtel: [address] [place], [place] [phone] US LAB 04/07/2020 Visit Diagnosis Plan: Fatigue Discussion: no other sym ptoms other than fatigue for 4 weeks so will update labs. order sent to [facility] for blood work and ua with c&s. instructed to call office with new or worsening symptoms. ICD-9 : 780.79 ICD-10 : R53.83 11/22/2019 Appointment: Meena Li [facility] [address] TELEMEDICINE 11/22/2019 Appointment: Robson Mccormick WPtel: [address] [place], [place] [phone] US LAB 09/30/2019 Visit Diagnosis Plan: Coronary [...] : I10 09/10/2019 Appointment: Robson Mccormick WPtel: [address] [place], [place] [phone] NEW PATIENT 09/10/2019 Patient Education: carvedilol- [employer] Coupon [id number] [email or web address]/resources/getResource/61/[email or web address] Completed 09/10/2019 Appointment: Robson Mccormick WPtel: [address] [place], [place] [phone] RESCHEDULED 08/20/2019 Appointment: Robson Mccormick WPtel: [address] [place], [place] [address] [place] CANCELED 07/22/2019 Referral: Vikram Maguire WPtel: [phone] [facility] 201 [id number] [place] Referral Appointment Requested Instructions No Instructions Medical Equipment No Medical Equipment data Health Concerns Section Health Concerns data not found Goals Section Goals data not found Interventions Section Interventions data not found Health Status Evaluations/Outcomes Section Health Status Evaluations/Outcomes data not found Advance Directives No Advance Directive data
--- OUTSIDE RECORDS SUMMARY | 2021-02-15 18:53 | XMS REPORT | CCD ---
Author Author Erica Mccormick D.O. Organization [facility] Address [address] [place] [address] Phone Care Team Providers Care Diet Aide Name Role Phone PP Unavailable CCM Unavailable Summary Purpose Interface Exchange Insurance Providers Payer name Policy type / Coverage type Covered constitution party ID Effective Begin Date Effective End Date WPS MEDICARE PART B [place] Medicare Part B [id number] Unknown Unknown [employer] [place] [employer] [place] MEDIC[place] SU[place] Medicare Part B X [id number] Unknown Unknown Family History Family History data not found Social History Social History Element Codes Description Effective Dates Marital status Unknown 09/10/2019 Number of children Unknown 1 09/10/2019 Employment Unknown Retired 09/10/[address]: 0308250 Former smoker quit 201109/10/[address]: 508425 Currently drinks alcohol 09/09 Frequency of drinks SNOMED CT: 161901807 1-4 drinks per week Allergies, Adverse Reactions, [...] 325 mg (65 mg iron) tablet RxNorm: 371956 Take 1 Tablet(s) Oral QD 01/28/2021 No Stop Date Active paroxetine 20 mg tablet RxNorm: 0939720 1 Tablet(s) Oral QD 01/20/2021 Inactive pantoprazole 20 mg tablet,delayed release RxNorm: 173693 1 Tablet(s) Oral two times a day 12/22/2020 03/21/2021 Active pantoprazole 20 mg tablet,delayed release RxNorm: 550348 1 Tablet(s) Oral two times a day 12/22/2020 12/22/2020 Inactive paroxetine 20 mg tablet RxNorm: 8890149 1 Tablet(s) Oral QD 12/15/2020 Inactive paroxetine 20 mg tablet RxNorm: 5019677 1 Tablet(s) Oral QD 12/15/2020 Inactive MagOx 400 mg (241.3 mg magnesium) tablet RxNorm: 378345 Take 1 Tablet(s) Oral every night at bedtime with melatonin 11/23/2020 01/24/2021 Inactive melatonin 3 mg tablet RxNorm: 330201 Take 1-2 Tablet(s) Oral every night at bedtime 11/18/2020 No Stop Date Active atorvastatin 40 mg tablet RxNorm: 345584 Take 1 Tablet( s) Oral every night at bedtime 11/10/2020 No Stop Date Active Plavix 75 mg tablet RxNorm: 075809 Take 1 Tablet(s) Oral QD No Stop Date Active trazodone 50 mg tablet RxNorm: 294712 Take 1-2 Tablet(s ) Oral QPM as needed for sleep 11/10/2020 11/22/2020 Inactive alprazolam 0.25 mg tablet RxNorm: 131458 1/2-1 Tablet(s ) Oral QPM as needed for sleep 08/03/2020 09/01/2020 Inactive alprazolam 0.25 mg tablet RxNorm: 716512 1/2-1 Tablet(s ) Oral QPM as needed for sleep 08/03/2020 08/02/2020 Inactive Aspirin Low Dose 81 mg tablet,delayed release RxNorm: 342807 1 Tablet(s) Oral QD 09/10/2019 No Stop Date Active losartan 25 mg tablet RxNorm: 495234 1 Tablet(s) Oral QD 09/10/2019 No Stop Date Active carvedilol 6.25 mg tablet RxNorm: 136389 1 Tablet(s) Oral two t imes a day 09/10/2019 11/09/2020 Inactive Fish Oil 1,000 mg (120 mg-180 mg) capsule RxNorm: 1 Caps ule(s) Oral QD 09/10/2019 11/25/2019 Inactive Medication Administered No Medication Administered data Immunizations No Immunization data Results Observation Observation Code Item Item Code Result Date S ervice Location UA W/MICR 58008 UA Protein TNP:Specimen Integrity 01/27 Unknown UA W/MICR 28180 UA Hemoglobin TNP:Specimen Integrity Unknown UA W/MICR 12142 UA Glucose TNP:Specimen Integrity 01/27 Unknown UA W/MICR 61938 UA Ketones TNP:Specimen Integrity 01/27 Unknown UA W/MICR 17713 UA pH TNP:Specimen Integrity 2020 Unknown UA W/MICR 64599 U Spec [place] TNP:Specimen Integrity 1 Unknown UA W/MICR 07449 UA Bilirubin TNP:Specimen Integrity 09/2020 Unknown UA W/MICR 84330 UA Leuk [place]ster[place] TNP:Specimen Integrity 01/27/2021 Unknown UA W/MICR 70337 UA Nitrite TNP:Specimen Integrity 01/27 Unknown UA W/MICR 24118 UA WBC/hpf TNP:Specimen Integrity 01/27 Unknown UA W/MICR 50975 UA RBC hpf TNP:Specimen Integrity 01/27 Unknown COMPLETE BLOOD COUNT [id number] WBC 6.1 10e9/L 01/26/20 21 Unknown COMPLETE BLOOD COUNT [id number] RBC 3.34 10e12/L 2020 Unknown COMPLETE BLOOD COUNT [id number] HEMOGLOBIN 8.8 g/dL 01/26/20 21 Unknown COMPLETE BLOOD COUNT [id number] HEMATOCRIT 28.5 % 01/26/20 21 Unknown COMPLETE BLOOD COUNT [id number] MCV 85.3 fL Unknown COMPLETE BLOOD COUNT [id number] MCH 26.3 pg 10/04/202 1 Unknown COMPLETE BLOOD COUNT [id number] MCHC 30.9 g/dL 1 Unknown COMPLETE BLOOD COUNT [id number] PLATELET COUNT 268 10e9/L 07/2020 Unknown COMPLETE BLOOD COUNT [id number] Mean Plt Volume 8.7 fL 07/2020 Unknown COMPLETE BLOOD COUNT [id number] Neut Auto 67.7 % 1 Unknown COMPLETE BLOOD COUNT [id number] Lymph Auto 19.4 % 01/26/20 21 Unknown COMPLETE BLOOD COUNT 4277159 [place] Auto 8.4 % 1 Unknown COMPLETE BLOOD COUNT [id number] RDW 16.7 % 1 Unknown COMPLETE BLOOD COUNT 9266894 Eos Auto 3.8 % 1 Unknown COMPLETE BLOOD COUNT 7878198 Baso Auto 0.7 % 1 Unknown COMPLETE BLOOD COUNT 7888406 Neutrophil Abs 4.13 10e9/L Unknown COMPLETE BLOOD COUNT [id number] Lymphocyte Abs 1.18 10e9/L Unknown COMPLETE BLOOD COUNT [id number] Monocyte Abs 0.51 10e9/L 07/2020 Unknown COMPLETE BLOOD COUNT [id number] Eosinophil Abs 0.23 10e9/L Unknown COMPLETE BLOOD COUNT [id number] RDW-SD 50.9 fL 1 Unknown COMPLETE BLOOD COUNT [id number] Basophil Abs 0.04 10e9/L 07/2020 Unknown GFR CALC 0693236 GFR Afr Amr >60 mL/min 01/25/2021 Unknow n GFR CALC [id number] GFR Non Afr Amr >60 mL/min 01/25/2021 Un known COMPREHENSIVE METABOLIC 91129 AST 17 U/L 2020 Unknown COMPREHENSIVE METABOLIC 02877 ALT 13 U/L 2020 Unknown COMPREHENSIVE METABOLIC 85229 BUN 14 mg/dL 2020 Unknown COMPREHENSIVE METABOLIC 47238 ALBUMIN 4.1 g/dL 2020 Unknown COMPREHENSIVE METABOLIC 59757 CHLORIDE 102 mmol/L 01/25 Unknown COMPREHENSIVE METABOLIC 49650 Bili Total 0.4 mg/dL 01/25 Unknown COMPREHENSIVE METABOLIC 76712 ALK PHOS 85 U/L 2020 Unknown COMPREHENSIVE METABOLIC 44216 SODIUM 134 mmol/L 01/25 Unknown COMPREHENSIVE METABOLIC 24409 CREATININE 0.71 mg/dL 07/2020 Unknown COMPREHENSIVE METABOLIC 70673 CALCIUM 9.3 mg/dL 2020 Unknown COMPREHENSIVE METABOLIC 89061 POTASSIUM 4.3 mmol/L 01/25 Unknown COMPREHENSIVE METABOLIC 08026 Total Protein 7.0 g/dL Unknown COMPREHENSIVE METABOLIC 27661 Glucose 111 mg/dL 2020 Unknown COMPREHENSIVE METABOLIC 90280 Bicarbonate 24 mmol/L 07/2020 Unknown COMPREHENSIVE METABOLIC 37299 AGAP 8 mmol/L 2020 Unknown COMPREHENSIVE METABOLIC 53916 AST 16 U/L 2019 Unknown COMPREHENSIVE METABOLIC 13346 ALT 12 U/L 2019 Unknown COMPREHENSIVE METABOLIC 77144 BUN 13 mg/dL 2019 Unknown COMPREHENSIVE METABOLIC 26865 ALBUMIN 4.1 g/dL 2019 Unknown COMPREHENSIVE METABOLIC 46697 CHLORIDE 96 mmol/L 2019 Unknown COMPREHENSIVE METABOLIC 58150 Bili Total 1.1 mg/dL 04/09 Unknown COMPREHENSIVE METABOLIC 71706 ALK PHOS 80 U/L 2019 Unknown COMPREHENSIVE METABOLIC 65218 SODIUM 131 mmol/L 04/09 Unknown COMPREHENSIVE METABOLIC 70082 CREATININE 0.76 mg/dL 03/24 Unknown COMPREHENSIVE METABOLIC 86408 CALCIUM 9.0 mg/dL 2019 Unknown COMPREHENSIVE METABOLIC 66289 POTASSIUM 4.2 mmol/L 04/09 Unknown COMPREHENSIVE METABOLIC 10561 Total Protein 6.8 g/dL Unknown COMPREHENSIVE METABOLIC 90742 Glucose 101 mg/dL 2019 Unknown COMPREHENSIVE METABOLIC 03701 Bicarbonate 25 mmol/L 03/24 Unknown COMPREHENSIVE METABOLIC 25698 AGAP 10 mmol/L 2019 Unknown GFR CALC 2993873 GFR Afr Amr >60 mL/min 04/09/2020 Unknow n GFR CALC [id number] GFR Non Afr Amr >60 mL/min 04/09/2020 Un known GAMMA GLUTAMYL TRANSFERASE 64988 GGT 19 U/L Unknown COMPLETE BLOOD COUNT 8993873 WBC 6.3 10e9/L 04/07/20 20 Unknown COMPLETE BLOOD COUNT 0980759 RBC 4.36 10e12/L 2019 Unknown COMPLETE BLOOD COUNT 2136883 HEMOGLOBIN 15.2 g/dL 04/07/20 20 Unknown COMPLETE BLOOD COUNT 3582079 HEMATOCRIT 43.8 % 04/07/20 20 Unknown COMPLETE BLOOD COUNT 5741461 MCV 100.5 fL 0 Unknown COMPLETE BLOOD COUNT 5456183 MCH 34.9 pg 0 Unknown COMPLETE BLOOD COUNT 7610817 MCHC 34.7 g/dL 0 Unknown COMPLETE BLOOD COUNT 7875043 PLATELET COUNT 254 10e9/L Unknown COMPLETE BLOOD COUNT 0234795 Mean Plt Volume 9.9 fL Unknown COMPLETE BLOOD COUNT 2543615 Neut Auto 63.3 % 0 Unknown COMPLETE BLOOD COUNT 1869035 Lymph Auto 24.5 % 04/07/20 20 Unknown COMPLETE BLOOD COUNT 7361096 [place] Auto 8.4 % 0 Unknown COMPLETE BLOOD COUNT 6254291 RDW 12.8 % 0 Unknown COMPLETE BLOOD COUNT 8508064 Eos Auto 3.2 % 0 Unknown COMPLETE BLOOD COUNT 5015182 Baso Auto 0.6 % 0 Unknown COMPLETE BLOOD COUNT 1624566 Neutrophil Abs 3.99 10e9/L Unknown COMPLETE BLOOD COUNT 0515518 Lymphocyte Abs 1.54 10e9/L Unknown COMPLETE BLOOD COUNT [id number] Monocyte Abs 0.53 10e9/L 03/24 Unknown COMPLETE BLOOD COUNT 4422700 Eosinophil Abs 0.20 10e9/L Unknown COMPLETE BLOOD COUNT 4231394 RDW-SD 47.6 fL 0 Unknown COMPLETE BLOOD COUNT 7697348 Basophil Abs 0.04 10e9/L 03/24 Unknown VITAMIN B 12 02353 VITAMIN B12 661 pg/mL 04/07/2020 Unkn own LIPID GROUP 20747 Cholesterol 168 mg/dL 09/30/2019 Unkno wn LIPID GROUP 39290 Triglyceride 141 mg/dL 09/30/2019 Unkn own LIPID GROUP 83503 HDL CHOLESTEROL 66 mg/dL 09/30/2019 U nknown LIPID GROUP 43942 Chol/HDL Ratio 2.55 ratio 09/30/2019 U nknown LIPID GROUP 74863 NON-HDL Chol 102 mg/dL 09/30/2019 Unkn own LIPID GROUP 90639 LDL Cholesterol 74 mg/dL 09/30/2019 U nknown FREE T4 88212 T4 Free 0.76 ng/dL 09/30/2019 Unknown THYROID STIMULATING HORMONE 80979 TSH 2.186 uIU/mL 09/30/2019 Unknown GFR CALC 2713184 GFR Non Afr Amr >60 mL/min 09/30/2019 Un known GFR CALC 8556687 GFR Afr Amr >60 mL/min 09/30/2019 Unknow n COMPREHENSIVE METABOLIC 54538 AST 14 U/L 2019 Unknown COMPREHENSIVE METABOLIC 19820 ALT 11 U/L 2019 Unknown COMPREHENSIVE METABOLIC 85420 BUN 15 mg/dL 2019 Unknown COMPREHENSIVE METABOLIC 44890 ALBUMIN 4.0 g/dL 2019 Unknown COMPREHENSIVE METABOLIC 87389 CHLORIDE 96 mmol/L 2019 Unknown COMPREHENSIVE METABOLIC 25048 Bili Total 0.9 mg/dL 09/29 Unknown COMPREHENSIVE METABOLIC 73012 ALK PHOS 72 U/L 2019 Unknown COMPREHENSIVE METABOLIC 23417 SODIUM 132 mmol/L 09/29 Unknown COMPREHENSIVE METABOLIC 98191 CREATININE 0.73 mg/dL 11/2019 Unknown COMPREHENSIVE METABOLIC 67269 CALCIUM 9.1 mg/dL 2019 Unknown COMPREHENSIVE METABOLIC 64848 POTASSIUM 4.6 mmol/L 09/29 Unknown COMPREHENSIVE METABOLIC 23699 Total Protein 6.4 g/dL Unknown COMPREHENSIVE METABOLIC 53516 Glucose 97 mg/dL 2019 Unknown COMPREHENSIVE METABOLIC 57933 Bicarbonate 25 mmol/L 11/2019 Unknown COMPREHENSIVE METABOLIC 10631 AGAP 11 mmol/L 2019 Unknown COMPLETE BLOOD COUNT 2107100 WBC 5.3 10e9/L 09/30/19 20 Unknown COMPLETE BLOOD COUNT 3704773 RBC 4.16 10e12/L 2019 Unknown COMPLETE BLOOD COUNT 0277952 HEMOGLOBIN 14.1 g/dL 09/30/19 20 Unknown COMPLETE BLOOD COUNT 8439205 HEMATOCRIT 42.6 % 09/30/19 20 Unknown COMPLETE BLOOD COUNT 2130149 MCV 102.4 fL 0 Unknown COMPLETE BLOOD COUNT 8287415 MCH 33.9 pg 0 Unknown COMPLETE BLOOD COUNT 8909680 MCHC 33.1 g/dL 0 Unknown COMPLETE BLOOD COUNT 1473913 PLATELET COUNT 273 10e9/L 11/2019 Unknown COMPLETE BLOOD COUNT 5128003 Mean Plt Volume 9.4 fL 11/2019 Unknown COMPLETE BLOOD COUNT 3072290 Neut Auto 57.3 % 0 Unknown COMPLETE BLOOD COUNT 0415105 Lymph Auto 29.3 % 09/30/19 20 Unknown COMPLETE BLOOD COUNT 5818909 [place] Auto 7.6 % 0 Unknown COMPLETE BLOOD COUNT 1364508 RDW 13.8 % 0 Unknown COMPLETE BLOOD COUNT 4846115 Eos Auto 4.5 % 0 Unknown COMPLETE BLOOD COUNT 0237451 Baso Auto 1.3 % 0 Unknown COMPLETE BLOOD COUNT 0356638 Neutrophil Abs 3.04 10e9/L Unknown COMPLETE BLOOD COUNT 8800022 Lymphocyte Abs 1.55 10e9/L Unknown COMPLETE BLOOD COUNT 9438819 Monocyte Abs 0.40 10e9/L 11/2019 Unknown COMPLETE BLOOD COUNT 7945844 Eosinophil Abs 0.24 10e9/L Unknown COMPLETE BLOOD COUNT 9280993 RDW-SD 50.7 fL 0 Unknown COMPLETE BLOOD COUNT 1851483 Basophil Abs 0.07 10e9/L 11/2019 Unknown Procedures Procedure Codes Date UA W/MICR CPT-4: 30946 02/15/2021 URINE CULTURE/ COLONY COUNT CPT-4: 57577 02/02/2021 ROUTINE VENIPUNCTURE CPT-4: 37074 01/25/2021 COMPREHEN METABOLIC PANEL CPT-4: 07865 01/25/2021 COMPLETE CBC W/AUTO DIFF WBC CPT-4: 65566 01/25/2021 URINE CULTURE/ COLONY COUNT CPT-4: 02882 01/25/2021 URINALYSIS NONAUTO W/O SCOPE CPT-4: 80178 01/25/2021 ROUTINE VENIPUNCTURE CPT-4: 30837 07/20/2020 COMPREHEN METABOLIC PANEL CPT-4: 83084 07/20/2020 ASSAY OF FREE THYROXINE CPT-4: 01622 07/20/2020 ASSAY THYROID STIM HORMONE CPT-4: 32391 07/20/2020 COMPLETE CBC W/AUTO DIFF WBC CPT-4: 74236 07/20/2020 RBC SED RATE AUTOMATED CPT-4: 94041 07/20/2020 URINALYSIS NONAUTO W/O SCOPE CPT-4: 53809 04/30/2020 URINE CULTURE/ COLONY COUNT CPT-4: 59305 04/30/2020 ROUTINE VENIPUNCTURE CPT-4: 50100 04/07/2020 COMPLETE CBC W/AUTO DIFF WBC CPT-4: 52875 04/07/2020 VITAMIN B-12 CPT-4: 68211 04/07/2020 ASSAY OF GGT CPT-4: 46280 04/07/2020 ROUTINE VENIPUNCTURE CPT-4: 93961 09/30/2019 ASSAY OF FREE THYROXINE CPT-4: 73330 09/30/2019 ASSAY THYROID STIM HORMONE CPT-4: 76489 09/30/2019 COMPREHEN METABOLIC PANEL CPT-4: 32485 09/30/2019 COMPLETE CBC W/AUTO DIFF WBC CPT-4: 42615 09/30/2019 LIPID PANEL CPT-4: 96918 09/30/2019 Vital Signs Date Vital 01/25/2021 Blood Pressure 1: 102/68 Code: 8480-6 Heart Rate 1: 76 bpm Respiratory Rate: 20 bpm SpO2: 100% Temperature: 36.9 (C) / 98.5 (F) We ight: 87 lbs Code: 63866-4 12/30/2020 Blood Pressure 1: 134/80 Code: 8480-6 BMI: 14.1 Code: 24820-3 Heart Rate 1: 72 bpm Height: 5'5" Code: 8302-2 Respiratory Rate: 18 bpm SpO2: 97% Temperature: 36.6 (C) / 97.8 (F) Weight: 85 lbs Code: 43427-1 11/10/2020 Blood Pressure 1: 130/74 Code: 8480-6 Heart Rate 1: 56 bpm Respiratory Rate: 20 bpm SpO2: 98% Temperature: 36.3 (C) / 97.4 (F) We ight: 85 lbs Code: 35658-4 07/29/2020 Blood Pressure 1: 121/65 Code: 8480-6 BMI: 14.3 Code: 21387-3 Heart Rate 1: 58 bpm Height: 5'5" Code: 8302-2 Respiratory Rate: 15 bpm SpO2: 98% Temperature: 36.9 (C) / 98.4 (F) Weight: 86 lbs Code: 75592-3 07/20/2020 Blood Pressure 1: 123/69 Code: 8480-6 Heart Rate 1: 68 bpm Respiratory Rate: 15 bpm SpO2: 99% Temperature: 36.6 (C) / 97.8 (F) We ight: 83 lbs Code: 87341-8 04/30/2020 Blood Pressure 1: 128/82 Code: 8480-6 Heart Rate 1: 68 bpm Respiratory Rate: 20 bpm SpO2: 95% Temperature: 36.5 (C) / 97.7 (F) We ight: 91 lbs Code: 42693-2 04/09/2020 Blood Pressure 1: 130/78 Code: 8480-6 Heart Rate 1: 68 bpm Respiratory Rate: 20 bpm SpO2: 99% Temperature: 36.3 (C) / 97.4 (F) We ight: 90 lbs Code: 86327-1 11/22/2019 Temperature: 36.3 (C) / 97.3 (F) 09/10/2019 Blood Pressure 1: 128/72 Code: 8480-6 BMI: 15.6 Code: 90745-7 Heart Rate 1: 68 bpm Height: 5'5" Code: 8302-2 Respiratory Rate: 20 bpm SpO2: 97% Temperature: 36.6 (C) / 97.9 (F) Weight: 94 lbs Code: 41230-5 Functional Status No Functional Status data Reason [...] Robson MCCORMICK DO [facility] CPT-4: 38620 02/02/2021 ([id number]) OFFICE/OUTPATIENT VISIT EST Diagnosis: Fatigue[ICD10: R53.83] Diagnosis: Blood loss anemia[ICD10: D50.0] Diagnosis: Coronary artery disease[ICD10: I25.10] Diagnosis: Hematuria[ICD10: R31.9] Robson CHANEL DO [facility] CPT-4: 78056 01/25/2021 ([id number]) OFFICE/OUTPATIENT VISIT EST Diagnosis: GERD (gastroesophageal reflux disease)[ICD10: K21.9] Diagnosis: Duodenal ulcer[ICD10: K26.9] Diagnosis: Coronary artery disease[ICD10: I25.10] Diagnosis: Anxiety[ICD10: F41.9] Diagnosis: Blood loss anemia[ICD10: D50.0] Robson MCCORMICK DO [facility] CPT-4: 86761 12/30/2020 ([id number]) NURSE/OUTPATIENT VISIT EST Diagnosis: Edema[ICD10: R60.9] Robson MCCORMICK DO [facility] CPT-4: 59165 12/21/2020 ([id number]) OFFICE/OUTPATIENT VISIT EST Diagnosis: Coronary artery disease[ICD10: I25.10] Diagnosis: Essential (primary) hypertension[ICD10: I10] Diagnosis: Stress reaction[ICD10: F43.0] Diagnosis: Insomnia[ICD10: G47.00] Diagnosis: Pulmonary nodule[ICD10: R91.1] Robson MCCORMICK DO [facility] CPT-4: 25954 11/10/2020 ([id number]) NO CHARGE Diagnosis: Mass of upper lobe of right lung[ICD10: R91.8] Robson MCCORMICK DO [facility] CPT-4: 51364 07/29/2020 ([id number]) OFFICE/OUTPATIENT VISIT EST Diagnosis: Fatigue[ICD10: R53.83] Diagnosis: Lymphadenopathy of head and neck[ICD10: R59.1] Diagnosis: Weight loss, non-intentional[ICD10: R63.4] Diagnosis: History of melanoma[ICD10: Z85.820] Diagnosis: Skin lesion[ICD10: L98.9] Sara Aguila ROBSONGÓMEZ NUNEZ DO [facility] CPT-4: 20709 07/20/2020 ([id number]) OFFICE/OUTPATIENT VISIT EST Diagnosis: Urinary tract infection[ICD10: N39.0] Meena MCCORMICK DO [facility] CPT-4: 39062 04/30/2020 ([id number]) OFFICE/OUTPATIENT VISIT EST Diagnosis: Dizziness[ICD10: R42] Diagnosis: Depressed mood with feeling of loneliness[ICD10: F32.9] Diagnosis: Insomnia[ICD10: G47.00] Robson CHANCE KatherineNilda EVGENY CHANEL [employer] [facility] CPT-4: 24096 04/09/2020 ([id number]) NURSE/OUTPATIENT VISIT EST Diagnosis: Coronary artery disease[ICD10: I25.10] Diagnosis: Fatigue[ICD10: R53.83] Diagnosis: Essential (primary) hypertension[ICD10: I10] Robson CHANCE KatherineNilda CHELY [employer] [facility] CPT-4: 08174 04/07/2020 ([id number]) OFFICE/OUTPATIENT VISIT EST Diagnosis: Fatigue[ICD10: R53.83] Meena Li [facility] CPT-4: 38067 11/22/2019 ([id number]) NURSE/OUTPATIENT VISIT EST Diagnosis: Essential (primary) hypertension[ICD10: I10] Diagnosis: Coronary artery disease[ICD10: I25.10] Diagnosis: Encounter for general adult medical examination with abnormal findings[ICD10: Z00.01] Robson CHANCE KatherineNilda CHELY [employer] CPT-4: 59243 09/30/2019 ([id number]) OFFICE/OUTPATIENT VISIT NEW Diagnosis: Essential (primary) hypertension[ICD10: I10] Diagnosis: Coronary artery disease[ICD10: I25.10] Diagnosis: Aortic valve stenosis with insufficiency[ICD10: I35.2] Robson CHANCE KatherineNilda CHELY JACOBS [facility] CPT-4: 28567 09/10/2019 Plan of Care Planned Activity Notes Codes Status Date Appointment: [phone] [facility] [facility]/02/2021 Appointment: Robson Mccormick WPtel: [address] [place], [place] [id number] UA 02/02/2021 Care Plan: UA W/MICR ADD ON ORDER LOINC : 35921-8 Pending 01/26/2021 Visit Diagnosis Plan: Hematuria Discussion: Culture ur ine ICD-9 : 599.70 ICD-10 : R31.9 01/25/2021 Visit Diagnosis Plan: Blood loss anemia Discussion: Ch real CBC now ICD-9 : 280.0 ICD-10 : D50.0 01/25/2021 Appointment: Robson Mccormick WPtel: [address] [place], [place] [phone] ACUTE ILLNESS 01/25/2021 Appointment: [facility] [phone] [facility] [facility] 01/01/2021 Visit Diagnosis Plan: Anxiety [...] : K21.9 12/30/2020 Appointment: Robson Mccormick WPtel: [address] [place], [place] [phone] US FOLLOW UP 12/30/2020 Appointment: Robson Mccormick WPtel: [address] [place], [place] [id number] NURSE SERVICES 12/21/2020 Visit Diagnosis Plan: Insomnia [...] F43.0 11/10/2020 Appointment: [facility]ccorm[facility] [phone] [facility] [facility] 11/10/2020 Patient Education: [email or web address]- Optimize[employer] Coupon [id number] [email or web address] Completed 11/10/2020 Visit Diagnosis Plan: Mass of upper lobe of right lung Discussion: CT scan of lung results discussed with patient and told this looks like cancer Agrees to see pulmonology to see if will be amenable to bronchoscopy to get cells/washings ICD-9 : 786.6 ICD-10 : R91.8 07/29/2020 Appointment: [facility]ccorm[facility] [phone] [facility] [facility] IN 07/29/2020 Care Plan: Referral Order SNOMED-CT : [id number] Pending 07/29/2020 Care Plan: CT SFT TSUE NCK W/O & W/DYE L OIFL : 79002-4 Pending 07/21/2020 Visit Diagnosis Plan: Fatigue Discussion: [...] L98.9 07/20/2020 Appointment: MingoSara WPtel: [phone] ACUTE ILLNESS 07/20/2020 Patient Education: Patient [...] ICD-10 : N39.0 04/30/2020 Appointment: Meena Li [address] [place] [address] ACUTE ILLNESS 04/30/2020 Appointment: Meena Li [address] [place] [address] 04/21/2020 1020---patient needed seen fo r appointment [...] 04/09/2020 Appointment: Robson Mccormick WPtel: [phone] FOLLOW UP 04/09/2020 Care Plan: COMPREHEN METAB[place] : 46326-8 Pending 04/09/2020 Appointment: Robson Mccormick WPtel: [address] [place], [place] [phone] US LAB 04/07/2020 Visit Diagnosis Plan: Fatigue Discussion: no other sym ptoms other than fatigue for 4 weeks so will update labs. order sent to [facility] for blood work and ua with c&s. instructed to call office with new or worsening symptoms. ICD-9 : 780.79 ICD-10 : R53.83 11/22/2019 Appointment: Meena Li [facility] [place] [address] TELEMEDICINE 11/22/2019 Appointment: Robson Mccormick WPtel: [address] [place], [place] [phone] US LAB 09/30/2019 Visit Diagnosis Plan: Coronary [...] : I10 09/10/2019 Appointment: Robson Mccormick WPtel: [address] [place], [place] [phone] NEW PATIENT 09/10/2019 Patient Education: carvedilol- Opt[employer]RX Coupon [phone] [email or web address] Completed 09/10/2019 Appointment: Robson Mccormick WPtel: [address] [place], [place] [phone] RESCHEDULED 08/20/2019 Appointment: Robson Mccormick WPtel: [address] [place] [address] [place] CANCELED 07/22/2019 Referral: Vikram Maguire WPtel: [phone] [facility] 201 [id number] US Referral Appointment Requested Instructions No Instructions Medical Equipment No Medical Equipment data Health Concerns Section Health Concerns data not found Goals Section Goals data not found Interventions Section Interventions data not found Health Status Evaluations/Outcomes Section Health Status Evaluations/Outcomes data not found Advance Directives No Advance Directive data
--- OUTSIDE RECORDS SUMMARY | 2021-02-15 18:54 | XMS REPORT | CCD ---
Author Author Erica Mccormick D.O. Organization ROBSON MCCORMICK DO [facility] Address [address] [place] [address] Phone Care Team Providers Care Java Solutions Architect Name Role Phone PP Unavailable CCM Unavailable Summary Purpose Interface Exchange Insurance Providers Payer name Policy type / Coverage type Covered republican ID Effective Begin Date Effective End Date WPS MEDICARE PART B [place] Medicare Part B [id number] Unknown Unknown BLUE [place] MEDIC[place] Medicare Part B X [id number] Unknown Unknown Family History Family History data not found Social History Social History Element Codes Description Effective Dates Marital status Unknown 09/10/2019 Number of children Unknown 1 09/10/2019 Employment Unknown Retired 09/10/[address]: 8001010 Former smoker quit 201109/10/[address]: 812431 Currently drinks alcohol 09/09 Frequency of drinks SNOMED CT: 946867950 1-4 drinks per week Allergies, Adverse Reactions, [...] Problems Condition Codes Effective Dates Condition Status Anxiety ICD-10: F41.9 ICD-9: 300.00 12/30/2020 Active Blood loss anemia ICD-10: D50.0 ICD-9: 280.0 12/30/2020 Active Coronary artery disease ICD-10: I25.10 ICD-9: 414.00 09/10/2019 Active Duodenal ulcer ICD-10: K26.9 ICD-9: 532.90 [...] Fill Instructions paroxetine 20 mg tablet RxNorm: 4498188 1 Tablet(s) Oral QD 01/20/2021 Active pantoprazole 20 mg tablet,delayed release RxNorm: 286503 1 Tablet(s) Oral two times a day 12/22/2020 03/21/2021 Active pantoprazole 20 mg tablet,delayed release RxNorm: 742681 1 Tablet(s) Oral two times a day 12/22/2020 12/22/2020 Inactive paroxetine 20 mg tablet RxNorm: 8968490 1 Tablet(s) Oral QD 021 12/15/2020 Inactive paroxetine 20 mg tablet RxNorm: 4818499 1 Tablet(s) Oral QD 021 12/15/2020 Inactive MagOx 400 mg (241.3 mg magnesium) tablet RxNorm: 086745 Take 1 Tablet(s) Oral every night at bedtime with melatonin 11/23/2020 No Stop Date Active melatonin 3 mg tablet RxNorm: 965948 Take 1-2 Tablet(s) Oral every night at bedtime 11/18/2020 No Stop Date Active atorvastatin 40 mg tablet RxNorm: 044535 Take 1 Tablet( s) Oral every night at bedtime 11/10/2020 No Stop Date Active Plavix 75 mg tablet RxNorm: 972997 Take 1 Tablet(s) Oral QD No Stop Date Active trazodone 50 mg tablet RxNorm: 123399 Take 1-2 Tablet(s ) Oral QPM as needed for sleep 11/10/2020 11/22/2020 Inactive alprazolam 0.25 mg tablet RxNorm: 037644 1/2-1 Tablet(s ) Oral QPM as needed for sleep 08/03/2020 09/01/2020 Inactive alprazolam 0.25 mg tablet RxNorm: 842317 1/2-1 Tablet(s ) Oral QPM as needed for sleep 08/03/2020 08/02/2020 Inactive Aspirin Low Dose 81 mg tablet,delayed release RxNorm: 311964 1 Tablet(s) Oral QD 09/10/2019 No Stop Date Active losartan 25 mg tablet RxNorm: 738237 1 Tablet(s) Oral QD 09/10/2019 No Stop Date Active carvedilol 6.25 mg tablet RxNorm: 831986 1 Tablet(s) Oral two t imes a day 09/10/2019 11/09/2020 Inactive Fish Oil 1,000 mg (120 mg-180 mg) capsule RxNorm: 1 Caps ule(s) Oral QD 09/10/2019 11/25/2019 Inactive Medication Administered No Medication Administered data Immunizations No Immunization data Results Observation Observation Code Item Item Code Result Date S ervice Location COMPREHENSIVE METABOLIC 43909 AST 16 U/L 2019 Unknown COMPREHENSIVE METABOLIC 12202 ALT 12 U/L 2019 Unknown COMPREHENSIVE METABOLIC 35667 BUN 13 mg/dL 2019 Unknown COMPREHENSIVE METABOLIC 82545 ALBUMIN 4.1 g/dL 2019 Unknown COMPREHENSIVE METABOLIC 14535 CHLORIDE 96 mmol/L 2019 Unknown COMPREHENSIVE METABOLIC 17710 Bili Total 1.1 mg/dL 04/09 Unknown COMPREHENSIVE METABOLIC 62783 ALK PHOS 80 U/L 2019 Unknown COMPREHENSIVE METABOLIC 49226 SODIUM 131 mmol/L 04/09 Unknown COMPREHENSIVE METABOLIC 41566 CREATININE 0.76 mg/dL 03/24 Unknown COMPREHENSIVE METABOLIC 05282 CALCIUM 9.0 mg/dL 2019 Unknown COMPREHENSIVE METABOLIC 79367 POTASSIUM 4.2 mmol/L 04/09 Unknown COMPREHENSIVE METABOLIC 85867 Total Protein 6.8 g/dL Unknown COMPREHENSIVE METABOLIC 65216 Glucose 101 mg/dL 2019 Unknown COMPREHENSIVE METABOLIC 43733 Bicarbonate 25 mmol/L 03/24 Unknown COMPREHENSIVE METABOLIC 16292 AGAP 10 mmol/L 2019 Unknown GFR CALC 0640696 GFR Non Afr Amr >60 mL/min 04/09/2020 Un known GFR CALC [id number] GFR Afr Amr >60 mL/min 04/09/2020 Unknow n GAMMA GLUTAMYL TRANSFERASE 57794 GGT 19 U/L Unknown COMPLETE BLOOD COUNT [id number] WBC 6.3 10e9/L 04/07/20 20 Unknown COMPLETE BLOOD COUNT 1666577 RBC 4.36 10e12/L 2019 Unknown COMPLETE BLOOD COUNT 0406546 HEMOGLOBIN 15.2 g/dL 04/07/20 20 Unknown COMPLETE BLOOD COUNT 8808097 HEMATOCRIT 43.8 % 04/07/20 20 Unknown COMPLETE BLOOD COUNT 9375963 MCV 100.5 fL 0 Unknown COMPLETE BLOOD COUNT 3280899 MCH 34.9 pg 0 Unknown COMPLETE BLOOD COUNT 3687627 MCHC 34.7 g/dL 0 Unknown COMPLETE BLOOD COUNT 1944931 PLATELET COUNT 254 10e9/L Unknown COMPLETE BLOOD COUNT 5469985 Mean Plt Volume 9.9 fL Unknown COMPLETE BLOOD COUNT 0155924 Neut Auto 63.3 % 0 Unknown COMPLETE BLOOD COUNT 4540170 Lymph Auto 24.5 % 04/07/20 20 Unknown COMPLETE BLOOD COUNT 0882415 [place] Auto 8.4 % 0 Unknown COMPLETE BLOOD COUNT 5536678 RDW 12.8 % 0 Unknown COMPLETE BLOOD COUNT 8977604 Eos Auto 3.2 % 0 Unknown COMPLETE BLOOD COUNT 1584754 Baso Auto 0.6 % 0 Unknown COMPLETE BLOOD COUNT 4016904 Neutrophil Abs 3.99 10e9/L Unknown COMPLETE BLOOD COUNT 4044104 Lymphocyte Abs 1.54 10e9/L Unknown COMPLETE BLOOD COUNT [id number] Monocyte Abs 0.53 10e9/L 03/24 Unknown COMPLETE BLOOD COUNT 4262476 Eosinophil Abs 0.20 10e9/L Unknown COMPLETE BLOOD COUNT 2479689 RDW-SD 47.6 fL 0 Unknown COMPLETE BLOOD COUNT [id number] Basophil Abs 0.04 10e9/L 03/24 Unknown VITAMIN B 12 41267 VITAMIN B12 661 pg/mL 04/07/2020 Unkn own LIPID GROUP 95259 Cholesterol 168 mg/dL 09/30/2019 Unkno wn LIPID GROUP 80737 Triglyceride 141 mg/dL 09/30/2019 Unkn own LIPID GROUP 43397 HDL CHOLESTEROL 66 mg/dL 09/30/2019 U nknown LIPID GROUP 87215 Chol/HDL Ratio 2.55 ratio 09/30/2019 U nknown LIPID GROUP 31253 NON-HDL Chol 102 mg/dL 09/30/2019 Unkn own LIPID GROUP 29528 LDL Cholesterol 74 mg/dL 09/30/2019 U nknown FREE T4 42200 T4 Free 0.76 ng/dL 09/30/2019 Unknown THYROID STIMULATING HORMONE 20330 TSH 2.186 uIU/mL 09/30/2019 Unknown GFR CALC 8174182 GFR Non Afr Amr >60 mL/min 09/30/2019 Un known GFR CALC 6766618 GFR Afr Amr >60 mL/min 09/30/2019 Unknow n COMPREHENSIVE METABOLIC 56617 AST 14 U/L 2019 Unknown COMPREHENSIVE METABOLIC 76069 ALT 11 U/L 2019 Unknown COMPREHENSIVE METABOLIC 57398 BUN 15 mg/dL 2019 Unknown COMPREHENSIVE METABOLIC 53957 ALBUMIN 4.0 g/dL 2019 Unknown COMPREHENSIVE METABOLIC 76391 CHLORIDE 96 mmol/L 2019 Unknown COMPREHENSIVE METABOLIC 90899 Bili Total 0.9 mg/dL 09/29 Unknown COMPREHENSIVE METABOLIC 24672 ALK PHOS 72 U/L 2019 Unknown COMPREHENSIVE METABOLIC 18688 SODIUM 132 mmol/L 09/29 Unknown COMPREHENSIVE METABOLIC 93731 CREATININE 0.73 mg/dL 11/2019 Unknown COMPREHENSIVE METABOLIC 47589 CALCIUM 9.1 mg/dL 2019 Unknown COMPREHENSIVE METABOLIC 79920 POTASSIUM 4.6 mmol/L 09/29 Unknown COMPREHENSIVE METABOLIC 64648 Total Protein 6.4 g/dL Unknown COMPREHENSIVE METABOLIC 75041 Glucose 97 mg/dL 2019 Unknown COMPREHENSIVE METABOLIC 71148 Bicarbonate 25 mmol/L 11/2019 Unknown COMPREHENSIVE METABOLIC 15873 AGAP 11 mmol/L 2019 Unknown COMPLETE BLOOD COUNT 5269579 WBC 5.3 10e9/L 09/30/19 20 Unknown COMPLETE BLOOD COUNT 2708284 RBC 4.16 10e12/L 2019 Unknown COMPLETE BLOOD COUNT 5384137 HEMOGLOBIN 14.1 g/dL 09/30/19 20 Unknown COMPLETE BLOOD COUNT 3511733 HEMATOCRIT 42.6 % 09/30/19 20 Unknown COMPLETE BLOOD COUNT 9173743 MCV 102.4 fL 0 Unknown COMPLETE BLOOD COUNT 0892544 MCH 33.9 pg 0 Unknown COMPLETE BLOOD COUNT 1414406 MCHC 33.1 g/dL 0 Unknown COMPLETE BLOOD COUNT 4612155 PLATELET COUNT 273 10e9/L 11/2019 Unknown COMPLETE BLOOD COUNT 3590249 Mean Plt Volume 9.4 fL 11/2019 Unknown COMPLETE BLOOD COUNT 9258342 Neut Auto 57.3 % 0 Unknown COMPLETE BLOOD COUNT 2050390 Lymph Auto 29.3 % 09/30/19 20 Unknown COMPLETE BLOOD COUNT 6587237 [place] Auto 7.6 % 0 Unknown COMPLETE BLOOD COUNT 3859361 RDW 13.8 % 0 Unknown COMPLETE BLOOD COUNT 2557697 Eos Auto 4.5 % 0 Unknown COMPLETE BLOOD COUNT 2680857 Baso Auto 1.3 % 0 Unknown COMPLETE BLOOD COUNT 8459717 Neutrophil Abs 3.04 10e9/L Unknown COMPLETE BLOOD COUNT 6940421 Lymphocyte Abs 1.55 10e9/L Unknown COMPLETE BLOOD COUNT 5156098 Monocyte Abs 0.40 10e9/L 11/2019 Unknown COMPLETE BLOOD COUNT 9489696 Eosinophil Abs 0.24 10e9/L Unknown COMPLETE BLOOD COUNT 9728412 RDW-SD 50.7 fL 0 Unknown COMPLETE BLOOD COUNT 7177551 Basophil Abs 0.07 10e9/L 11/2019 Unknown Procedures Procedure Codes Date ROUTINE VENIPUNCTURE CPT-4: 75467 07/20/2020 COMPREHEN METABOLIC PANEL CPT-4: 10196 07/20/2020 ASSAY OF FREE THYROXINE CPT-4: 27986 07/20/2020 ASSAY THYROID STIM HORMONE CPT-4: 65253 07/20/2020 COMPLETE CBC W/AUTO DIFF WBC CPT-4: 83967 07/20/2020 RBC SED RATE AUTOMATED CPT-4: 24364 07/20/2020 URINALYSIS NONAUTO W/O SCOPE CPT-4: 94637 04/30/2020 URINE CULTURE/ COLONY COUNT CPT-4: 19723 04/30/2020 ROUTINE VENIPUNCTURE CPT-4: 94518 04/07/2020 COMPLETE CBC W/AUTO DIFF WBC CPT-4: 56693 04/07/2020 VITAMIN B-12 CPT-4: 88849 04/07/2020 ASSAY OF GGT CPT-4: 69750 04/07/2020 ROUTINE VENIPUNCTURE CPT-4: 31404 09/30/2019 ASSAY OF FREE THYROXINE CPT-4: 35486 09/30/2019 ASSAY THYROID STIM HORMONE CPT-4: 42864 09/30/2019 COMPREHEN METABOLIC PANEL CPT-4: 73735 09/30/2019 COMPLETE CBC W/AUTO DIFF WBC CPT-4: 32568 09/30/2019 LIPID PANEL CPT-4: 58459 09/30/2019 Vital Signs Date Vital 12/30/2020 Blood Pressure 1: 134/80 Code: 8480-6 BMI: 14.1 Code: 25130-6 Heart Rate 1: 72 bpm Height: 5'5" Code: 8302-2 Respiratory Rate: 18 bpm SpO2: 97% Temperature: 36.6 (C) / 97.8 (F) Weight: 85 lbs Code: 88971-8 11/10/2020 Blood Pressure 1: 130/74 Code: 8480-6 Heart Rate 1: 56 bpm Respiratory Rate: 20 bpm SpO2: 98% Temperature: 36.3 (C) / 97.4 (F) We ight: 85 lbs Code: 14919-3 07/29/2020 Blood Pressure 1: 121/65 Code: 8480-6 BMI: 14.3 Code: 05042-3 Heart Rate 1: 58 bpm Height: 5'5" Code: 8302-2 Respiratory Rate: 15 bpm SpO2: 98% Temperature: 36.9 (C) / 98.4 (F) Weight: 86 lbs Code: 34982-7 07/20/2020 Blood Pressure 1: 123/69 Code: 8480-6 Heart Rate 1: 68 bpm Respiratory Rate: 15 bpm SpO2: 99% Temperature: 36.6 (C) / 97.8 (F) We ight: 83 lbs Code: 79893-8 04/30/2020 Blood Pressure 1: 128/82 Code: 8480-6 Heart Rate 1: 68 bpm Respiratory Rate: 20 bpm SpO2: 95% Temperature: 36.5 (C) / 97.7 (F) We ight: 91 lbs Code: 92501-9 04/09/2020 Blood Pressure 1: 130/78 Code: 8480-6 Heart Rate 1: 68 bpm Respiratory Rate: 20 bpm SpO2: 99% Temperature: 36.3 (C) / 97.4 (F) We ight: 90 lbs Code: 84885-3 11/22/2019 Temperature: 36.3 (C) / 97.3 (F) 09/10/2019 Blood Pressure 1: 128/72 Code: 8480-6 BMI: 15.6 Code: 78595-9 Heart Rate 1: 68 bpm Height: 5'5" Code: 8302-2 Respiratory Rate: 20 bpm SpO2: 97% Temperature: 36.6 (C) / 97.9 (F) Weight: 94 lbs Code: 15559-4 Functional Status No Functional Status data Reason For Visit Reason For Visit Effective Dates Notes follow up 12/30/2020 Patient had bleeding ulcer [...] mutivitamins fatigue 11/22/2019 ~generic 09/10/2019 New Patient---establ karan visit Encounters Encounter Performer Location Codes Date () OFFICE/OUTPATIENT VISIT EST Diagnosis: GERD (gastroesophageal reflux disease)[ICD10: K21.9] Diagnosis: Duodenal ulcer[ICD10: K26.9] Diagnosis: Coronary artery disease[ICD10: I25.10] Diagnosis: Anxiety[ICD10: F41.9] Diagnosis: Blood loss anemia[ICD10: D50.0] Robson CHANCE SSEV CPT-4: 61693 12/30/2020 ([id number]) NURSE/OUTPATIENT VISIT EST Diagnosis: Edema[ICD10: R60.9] Robson CHANCE [employer] [employer] CPT-4: 93025 12/21/2020 ([id number]) OFFICE/OUTPATIENT VISIT EST Diagnosis: Coronary artery disease[ICD10: I25.10] Diagnosis: Essential (primary) hypertension[ICD10: I10] Diagnosis: Stress reaction[ICD10: F43.0] Diagnosis: Insomnia[ICD10: G47.00] Diagnosis: Pulmonary nodule[ICD10: R91.1] Robson CHANCE [employer] [employer]stick[employer] CPT-4: 81977 11/10/2020 ([id number]) NO CHARGE Diagnosis: Mass of upper lobe of right lung[ICD10: R91.8] Robson MCCORMICK DO [facility] CPT-4: 31581 07/29/2020 ([id number]) OFFICE/OUTPATIENT VISIT EST Diagnosis: Fatigue[ICD10: R53.83] Diagnosis: Lymphadenopathy of head and neck[ICD10: R59.1] Diagnosis: Weight loss, non-intentional[ICD10: R63.4] Diagnosis: History of melanoma[ICD10: Z85.820] Diagnosis: Skin lesion[ICD10: L98.9] Sara NUNEZ [facility] CPT-4: 65805 07/20/2020 ([id number]) OFFICE/OUTPATIENT VISIT EST Diagnosis: Urinary tract infection[ICD10: N39.0] Meena MCCORMICK DO [facility] CPT-4: 62136 04/30/2020 ([id number]) OFFICE/OUTPATIENT VISIT EST Diagnosis: Dizziness[ICD10: R42] Diagnosis: Depressed mood with feeling of loneliness[ICD10: F32.9] Diagnosis: Insomnia[ICD10: G47.00] Robson CHANEL [place] CPT-4: 40500 04/09/2020 ([id number]) NURSE/OUTPATIENT VISIT EST Diagnosis: Coronary artery disease[ICD10: I25.10] Diagnosis: Fatigue[ICD10: R53.83] Diagnosis: Essential (primary) hypertension[ICD10: I10] Robson MCCORMICK [employer] [facility] CPT-4: 98206 04/07/2020 ([id number]) OFFICE/OUTPATIENT VISIT EST Diagnosis: Fatigue[ICD10: R53.83] Meena Li [facility] CPT-4: 19982 11/22/2019 ([id number]) NURSE/OUTPATIENT VISIT EST Diagnosis: Essential (primary) hypertension[ICD10: I10] Diagnosis: Coronary artery disease[ICD10: I25.10] Diagnosis: Encounter for general adult medical examination with abnormal findings[ICD10: Z00.01] Robson MCCORMICK [employer] [facility] CPT-4: 88219 09/30/2019 ([id number]) OFFICE/OUTPATIENT VISIT NEW Diagnosis: Essential (primary) hypertension[ICD10: I10] Diagnosis: Coronary artery disease[ICD10: I25.10] Diagnosis: Aortic valve stenosis with insufficiency[ICD10: I35.2] Robson MCCORMICK DO [facility] CPT-4: 06690 09/10/2019 Plan of Care Planned Activity Notes Codes Status Date Visit Diagnosis Plan: Anxiety Discussion: Seems calmer [...] : K21.9 12/30/2020 Appointment: Robson Mccormick WPtel: [address] [place], [place] [phone] NURSE SERVICES 12/21/2020 Visit Diagnosis Plan: Insomnia [...] : F43.0 11/10/2020 Appointment: Robson Mccormick WPtel: [facility] FOLLOW UP 11/10/2020 Patient Education: trazodone- OptimizeRX Coupon [phone] [email or web address] Completed 11/10/2020 Visit Diagnosis Plan: Mass of upper lobe of right lung Discussion: CT scan of lung results discussed with patient and told this looks like cancer Agrees to see pulmonology to see if will be amenable to bronchoscopy to get cells/washings ICD-9 : 786.6 ICD-10 : R91.8 07/29/2020 App[facility]ment: [facility]ccorm[facility] [phone] [facility] [facility] 07/29/2020 Care Plan: Referral Order SNOMED-CT : 30 0466834 Pending 07/29/2020 Care Plan: CT SFT TSUE NCK W/O & W/DYE L OIVT : 66148-2 Pending 07/21/2020 Visit Diagnosis Plan: Fatigue Discussion: [...] who excised her melanoma, Dr. Medrano, in [place]- before surgery referral. She will let us know who she'd like to see. ICD-9 : 709.9 ICD-10 : L98.9 07/20/2020 Appointment: DannyruthieSara looney [facility] [phone] [facility] [facility] 07/20/2020 Patient Education: Patient Medication [...] ICD-10 : N39.0 04/30/2020 Appointment: Meena Li [address] [facility] ACUTE ILLNESS 04/30/2020 Appointment: GuillermoMeena rodriguez [address] [place], [place] [phone] 04/21/2020 1020---patient needed seen fo r appointment due to new urinary symptoms. She refused appt because wanted to just leave urine sample (km) CANCELED 04/21/2020 Visit Diagnosis Plan: Dizziness Discussion: Add CMP Pa agnes never accomplished colonoscopy ICD-9 : 780.4 ICD-10 : R42 04/09/2020 Visit Diagnosis Plan: Depressed mood with feeling of l oneliness Discussion: Recommend low dose antidepressant for both stress/insomnia but patient defers ICD-9 : 311 ICD-10 : F32.9 04/09/2020 Appointment: Robson Mccormick WPtel: [address] [place], [place] [phone] FOLLOW UP 04/09/2020 Care Plan: COMPREHEN METABOLIC [place] : 04797-4 Pending 04/09/2020 Appointment: Robson Mccormick WPtel: [address] [place], [place] [phone] US LAB 04/07/2020 Visit Diagnosis Plan: Fatigue Discussion: no other sym ptoms other than fatigue for 4 weeks so will update labs. order sent to [facility] for blood work and ua with c&s. instructed to call office with new or worsening symptoms. ICD-9 : 780.79 ICD-10 : R53.83 11/22/2019 Appointment: Meena Li [address] [facility] US TELEMEDICINE 11/22/2019 Appointment: Robson Mccormick WPtel: [address] [place], [place] [phone] US LAB 09/30/2019 Visit Diagnosis Plan: Coronary [...] : I10 09/10/2019 Appointment: Robson Mccormick WPtel: [address] [place] [address] US NEW PATIENT 09/10/2019 Patient Education: carvedilol- OptimizeRX Coupon [phone] [email or web address] Completed 09/10/2019 Appointment: Robson Mccormick WPtel: [address] [place], [place] [phone] US RESCHEDULED 08/20/2019 Appointment: Robson Mccormick WPtel: [address] [place], [place] [phone] US CANCELED 07/22/2019 Referral: Vikram Maguire WPtel: [address] [facility] [address] [id number] US Referral Appointment Requested Instructions No Instructions Medical Equipment No Medical Equipment data Health Concerns Section Health Concerns data not found Goals Section Goals data not found Interventions Section Interventions data not found Health Status Evaluations/Outcomes Section Health Status Evaluations/Outcomes data not found Advance Directives No Advance Directive data
--- OUTSIDE RECORDS SUMMARY | 2021-02-15 18:54 | XMS REPORT | CCD ---
Author Author Erica Mccormick D.O. Organization ERICKA MCCORMICK DO [facility] Address [address] [place] [address] Phone Care Team Providers Care Insurance Account Representative Name Role Phone PP Unavailable CCM Unavailable Summary Purpose Interface Exchange Insurance Providers Payer name Policy type / Coverage type Covered democrat ID Effective Begin Date Effective End Date WPS MEDICARE PART B [place] Medicare Part B [id number] Unknown Unknown [employer]UE [employer] [place] MEDIC[place] Medicare Part B X [id number] Unknown Unknown Family History Family History data not found Social History Social History Element Codes Description Effective Dates Marital status Unknown 09/10/2019 Number of children Unknown 1 09/10/2019 Employment Unknown Retired 09/10/[address]: 0339521 Former smoker quit 201109/10/[address]: 902244 Currently drinks alcohol 09/09 Frequency of drinks SNOMED CT: 134314186 1-4 drinks per week Allergies, Adverse Reactions, [...] Problems Condition Codes Effective Dates Condition Status Edema ICD-10: R60.9 ICD-9: 782.3 12/21/2020 Active Coronary artery disease ICD-10: I25.10 ICD-9: [...] Fill Instructions paroxetine 20 mg tablet RxNorm: 9111863 1 Tablet(s) Oral QD 021 01/13/2021 Active paroxetine 20 mg tablet RxNorm: 7499624 1 Tablet(s) Oral QD 021 12/15/2020 Inactive MagOx 400 mg (241.3 mg magnesium) tablet RxNorm: 682802 Take 1 Tablet(s) Oral every night at bedtime with melatonin 11/23/2020 No Stop Date Active melatonin 3 mg tablet RxNorm: 376783 Take 1-2 Tablet(s) Oral every night at bedtime 11/18/2020 No Stop Date Active atorvastatin 40 mg tablet RxNorm: 531718 Take 1 Tablet( s) Oral every night at bedtime 11/10/2020 No Stop Date Active Plavix 75 mg tablet RxNorm: 368393 Take 1 Tablet(s) Oral QD No Stop Date Active trazodone 50 mg tablet RxNorm: 233560 Take 1-2 Tablet(s ) Oral QPM as needed for sleep 11/10/2020 11/22/2020 Inactive alprazolam 0.25 mg tablet RxNorm: 517742 1/2-1 Tablet(s ) Oral QPM as needed for sleep 08/03/2020 09/01/2020 Inactive alprazolam 0.25 mg tablet RxNorm: 817499 1/2-1 Tablet(s ) Oral QPM as needed for sleep 08/03/2020 08/02/2020 Inactive Aspirin Low Dose 81 mg tablet,delayed release RxNorm: 007145 1 Tablet(s) Oral QD 09/10/2019 No Stop Date Active losartan 25 mg tablet RxNorm: 176088 1 Tablet(s) Oral QD 09/10/2019 No Stop Date Active carvedilol 6.25 mg tablet RxNorm: 747233 1 Tablet(s) Oral two t imes a day 09/10/2019 11/09/2020 Inactive Fish Oil 1,000 mg (120 mg-180 mg) capsule RxNorm: 1 Caps ule(s) Oral QD 09/10/2019 11/25/2019 Inactive Medication Administered No Medication Administered data Immunizations No Immunization data Results Observation Observation Code Item Item Code Result Date S ervice Location COMPREHENSIVE METABOLIC 19467 AST 16 U/L 2019 Unknown COMPREHENSIVE METABOLIC 70814 ALT 12 U/L 2019 Unknown COMPREHENSIVE METABOLIC 20871 BUN 13 mg/dL 2019 Unknown COMPREHENSIVE METABOLIC 45366 ALBUMIN 4.1 g/dL 2019 Unknown COMPREHENSIVE METABOLIC 91327 CHLORIDE 96 mmol/L 2019 Unknown COMPREHENSIVE METABOLIC 45995 Bili Total 1.1 mg/dL 04/09 Unknown COMPREHENSIVE METABOLIC 12550 ALK PHOS 80 U/L 2019 Unknown COMPREHENSIVE METABOLIC 10457 SODIUM 131 mmol/L 04/09 Unknown COMPREHENSIVE METABOLIC 00023 CREATININE 0.76 mg/dL 03/24 Unknown COMPREHENSIVE METABOLIC 23135 CALCIUM 9.0 mg/dL 2019 Unknown COMPREHENSIVE METABOLIC 08120 POTASSIUM 4.2 mmol/L 04/09 Unknown COMPREHENSIVE METABOLIC 45517 Total Protein 6.8 g/dL Unknown COMPREHENSIVE METABOLIC 99493 Glucose 101 mg/dL 2019 Unknown COMPREHENSIVE METABOLIC 95106 Bicarbonate 25 mmol/L 03/24 Unknown COMPREHENSIVE METABOLIC 65686 AGAP 10 mmol/L 2019 Unknown GFR CALC 9028916 GFR Non Afr Amr >60 mL/min 04/09/2020 Un known GFR CALC 6296342 GFR Afr Amr >60 mL/min 04/09/2020 Unknow n GAMMA GLUTAMYL TRANSFERASE 95091 GGT 19 U/L Unknown COMPLETE BLOOD COUNT [id number] WBC 6.3 10e9/L 04/07/20 20 Unknown COMPLETE BLOOD COUNT 0979275 RBC 4.36 10e12/L 2019 Unknown COMPLETE BLOOD COUNT 4680823 HEMOGLOBIN 15.2 g/dL 04/07/20 20 Unknown COMPLETE BLOOD COUNT [id number] HEMATOCRIT 43.8 % 04/07/20 20 Unknown COMPLETE BLOOD COUNT 6035098 MCV 100.5 fL 0 Unknown COMPLETE BLOOD COUNT 4874454 MCH 34.9 pg 0 Unknown COMPLETE BLOOD COUNT 3538045 MCHC 34.7 g/dL 0 Unknown COMPLETE BLOOD COUNT 6206020 PLATELET COUNT 254 10e9/L Unknown COMPLETE BLOOD COUNT 4609282 Mean Plt Volume 9.9 fL Unknown COMPLETE BLOOD COUNT 7269509 Neut Auto 63.3 % 0 Unknown COMPLETE BLOOD COUNT 2140470 Lymph Auto 24.5 % 04/07/20 20 Unknown COMPLETE BLOOD COUNT 5280099 Childress Auto 8.4 % 0 Unknown COMPLETE BLOOD COUNT 9039224 RDW 12.8 % 0 Unknown COMPLETE BLOOD COUNT 4014396 Eos Auto 3.2 % 0 Unknown COMPLETE BLOOD COUNT 7278605 Baso Auto 0.6 % 0 Unknown COMPLETE BLOOD COUNT 0743778 Neutrophil Abs 3.99 10e9/L Unknown COMPLETE BLOOD COUNT 9898943 Lymphocyte Abs 1.54 10e9/L Unknown COMPLETE BLOOD COUNT 2373550 Monocyte Abs 0.53 10e9/L 03/24 Unknown COMPLETE BLOOD COUNT 4235705 Eosinophil Abs 0.20 10e9/L Unknown COMPLETE BLOOD COUNT [id number] RDW-SD 47.6 fL 0 Unknown COMPLETE BLOOD COUNT [id number] Basophil Abs 0.04 10e9/L 03/24 Unknown VITAMIN B 12 15906 VITAMIN B12 661 pg/mL 04/07/2020 Unkn own LIPID GROUP 22117 Cholesterol 168 mg/dL 09/30/2019 Unkno wn LIPID GROUP 72337 Triglyceride 141 mg/dL 09/30/2019 Unkn own L[facility] GROUP 93223 HDL CHOLESTEROL 66 mg/dL 09/30/2019 U nknown LIPID GROUP 22305 Chol/HDL Ratio 2.55 ratio 09/30/2019 U nknown LIPID GROUP 93922 NON-HDL Chol 102 mg/dL 09/30/2019 Unkn own LIPID GROUP 71260 LDL Cholesterol 74 mg/dL 09/30/2019 U nknown FREE T4 72892 T4 Free 0.76 ng/dL 09/30/2019 Unknown THYROID STIMULATING HORMONE 65741 TSH 2.186 uIU/mL 09/30/2019 Unknown GFR CALC 4120284 GFR Non Afr Amr >60 mL/min 09/30/2019 Un known GFR CALC 1262733 GFR Afr Amr >60 mL/min 09/30/2019 Unknow n COMPREHENSIVE METABOLIC 02879 AST 14 U/L 2019 Unknown COMPREHENSIVE METABOLIC 75628 ALT 11 U/L 2019 Unknown COMPREHENSIVE METABOLIC 71609 BUN 15 mg/dL 2019 Unknown COMPREHENSIVE METABOLIC 46624 ALBUMIN 4.0 g/dL 2019 Unknown COMPREHENSIVE METABOLIC 56107 CHLORIDE 96 mmol/L 2019 Unknown COMPREHENSIVE METABOLIC 55968 Bili Total 0.9 mg/dL 09/29 Unknown COMPREHENSIVE METABOLIC 55105 ALK PHOS 72 U/L 2019 Unknown COMPREHENSIVE METABOLIC 30289 SODIUM 132 mmol/L 09/29 Unknown COMPREHENSIVE METABOLIC 43821 CREATININE 0.73 mg/dL 11/2019 Unknown COMPREHENSIVE METABOLIC 16168 CALCIUM 9.1 mg/dL 2019 Unknown COMPREHENSIVE METABOLIC 88833 POTASSIUM 4.6 mmol/L 09/29 Unknown COMPREHENSIVE METABOLIC 35935 Total Protein 6.4 g/dL Unknown COMPREHENSIVE METABOLIC 17748 Glucose 97 mg/dL 2019 Unknown COMPREHENSIVE METABOLIC 24804 Bicarbonate 25 mmol/L 11/2019 Unknown COMPREHENSIVE METABOLIC 29302 AGAP 11 mmol/L 2019 Unknown COMPLETE BLOOD COUNT 1700581 WBC 5.3 10e9/L 09/30/19 20 Unknown COMPLETE BLOOD COUNT 0758015 RBC 4.16 10e12/L 2019 Unknown COMPLETE BLOOD COUNT 1563381 HEMOGLOBIN 14.1 g/dL 09/30/19 20 Unknown COMPLETE BLOOD COUNT 2714016 HEMATOCRIT 42.6 % 09/30/19 20 Unknown COMPLETE BLOOD COUNT 9712567 MCV 102.4 fL 0 Unknown COMPLETE BLOOD COUNT 8496610 MCH 33.9 pg 0 Unknown COMPLETE BLOOD COUNT 7451442 MCHC 33.1 g/dL 0 Unknown COMPLETE BLOOD COUNT 1781074 PLATELET COUNT 273 10e9/L 11/2019 Unknown COMPLETE BLOOD COUNT 5107640 Mean Plt Volume 9.4 fL 11/2019 Unknown COMPLETE BLOOD COUNT 5326765 Neut Auto 57.3 % 0 Unknown COMPLETE BLOOD COUNT 3930652 Lymph Auto 29.3 % 09/30/19 20 Unknown COMPLETE BLOOD COUNT 1311561 Childress Auto 7.6 % 0 Unknown COMPLETE BLOOD COUNT 2219044 RDW 13.8 % 0 Unknown COMPLETE BLOOD COUNT 7922854 Eos Auto 4.5 % 0 Unknown COMPLETE BLOOD COUNT 8859540 Baso Auto 1.3 % 0 Unknown COMPLETE BLOOD COUNT 1987797 Neutrophil Abs 3.04 10e9/L Unknown COMPLETE BLOOD COUNT 4180276 Lymphocyte Abs 1.55 10e9/L Unknown COMPLETE BLOOD COUNT 7339610 Monocyte Abs 0.40 10e9/L 11/2019 Unknown COMPLETE BLOOD COUNT 6168870 Eosinophil Abs 0.24 10e9/L Unknown COMPLETE BLOOD COUNT 8721943 RDW-SD 50.7 fL 0 Unknown COMPLETE BLOOD COUNT 6172481 Basophil Abs 0.07 10e9/L 0 11/2019 Unknown Procedures Procedure Codes Date ROUTINE VENIPUNCTURE CPT-4: 03573 07/20/2020 COMPREHEN METABOLIC PANEL CPT-4: 66313 07/20/2020 ASSAY OF FREE THYROXINE CPT-4: 30213 07/20/2020 ASSAY THYROID STIM HORMONE CPT-4: 31903 07/20/2020 COMPLETE CBC W/AUTO DIFF WBC CPT-4: 62638 07/20/2020 RBC SED RATE AUTOMATED CPT-4: 70722 07/20/2020 URINALYSIS NONAUTO W/O SCOPE CPT-4: 57167 04/30/2020 URINE CULTURE/ COLONY COUNT CPT-4: 40007 04/30/2020 ROUTINE VENIPUNCTURE CPT-4: 03035 04/07/2020 COMPLETE CBC W/AUTO DIFF WBC CPT-4: 12767 04/07/2020 VITAMIN B-12 CPT-4: 30581 04/07/2020 ASSAY OF GGT CPT-4: 18372 04/07/2020 ROUTINE VENIPUNCTURE CPT-4: 19610 09/30/2019 ASSAY OF FREE THYROXINE CPT-4: 82495 09/30/2019 ASSAY THYROID STIM HORMONE CPT-4: 91322 09/30/2019 COMPREHEN METABOLIC PANEL CPT-4: 07985 09/30/2019 COMPLETE CBC W/AUTO DIFF WBC CPT-4: 73843 09/30/2019 LIPID PANEL CPT-4: 63571 09/30/2019 Vital Signs Date Vital 11/10/2020 Blood Pressure 1: 130/74 Code: 8480-6 Heart Rate 1: 56 bpm Respiratory Rate: 20 bpm SpO2: 98% Temperature: 36.3 (C) / 97.4 (F) We ight: 85 lbs Code: 98575-3 07/29/2020 Blood Pressure 1: 121/65 Code: 8480-6 BMI: 14.3 Code: 17024-5 Heart Rate 1: 58 bpm Height: 5'5" Code: 8302-2 Respiratory Rate: 15 bpm SpO2: 98% Temperature: 36.9 (C) / 98.4 (F) Weight: 86 lbs Code: 85870-5 07/20/2020 Blood Pressure 1: 123/69 Code: 8480-6 Heart Rate 1: 68 bpm Respiratory Rate: 15 bpm SpO2: 99% Temperature: 36.6 (C) / 97.8 (F) We ight: 83 lbs Code: 56816-3 04/30/2020 Blood Pressure 1: 128/82 Code: 8480-6 Heart Rate 1: 68 bpm Respiratory Rate: 20 bpm SpO2: 95% Temperature: 36.5 (C) / 97.7 (F) We ight: 91 lbs Code: 44594-6 04/09/2020 Blood Pressure 1: 130/78 Code: 8480-6 Heart Rate 1: 68 bpm Respiratory Rate: 20 bpm SpO2: 99% Temperature: 36.3 (C) / 97.4 (F) We ight: 90 lbs Code: 81246-8 11/22/2019 Temperature: 36.3 (C) / 97.3 (F) 09/10/2019 Blood Pressure 1: 128/72 Code: 8480-6 BMI: 15.6 Code: 15352-6 Heart Rate 1: 68 bpm Height: 5'5" Code: 8302-2 Respiratory Rate: 20 bpm SpO2: 97% Temperature: 36.6 (C) / 97.9 (F) Weight: 94 lbs Code: 37186-9 Functional Status No Functional Status data Reason For Visit Reason For Visit Effective Dates Notes insomnia 11/10/2020 Patient had stent pl acement done September [address] Dnaiel follow up 07/29/2020 Patient is here toda [...] balance mutivitamins fatigue 11/22/2019 ~generic 09/10/2019 New Patient---pennyabdoul laureanodestin visit Encounters Encounter Performer Location Codes Date () NURSE/OUTPATIENT VISIT EST Diagnosis: Edema[ICD10: R60.9] Ericka MCCORMICK DO [facility] CPT-4: 08931 12/21/2020 ([id number]) OFFICE/OUTPATIENT VISIT EST Diagnosis: Coronary artery disease[ICD10: I25.10] Diagnosis: Essential (primary) hypertension[ICD10: I10] Diagnosis: Stress reaction[ICD10: F43.0] Diagnosis: Insomnia[ICD10: G47.00] Diagnosis: Pulmonary nodule[ICD10: R91.1] Ericka MCCORMICK [employer] CPT-4: 29019 11/10/2020 ([id number]) NO CHARGE Diagnosis: Mass of upper lobe of right lung[ICD10: R91.8] Ericka MCCORMICK [employer] CPT-4: 14600 07/29/2020 ([id number]) OFFICE/OUTPATIENT VISIT EST Diagnosis: Fatigue[ICD10: R53.83] Diagnosis: Lymphadenopathy of head and neck[ICD10: R59.1] Diagnosis: Weight loss, non-intentional[ICD10: R63.4] Diagnosis: History of melanoma[ICD10: Z85.820] Diagnosis: Skin lesion[ICD10: L98.9] Sara Memoaure NUNEZ [employer] CPT-4: 61333 07/20/2020 ([id number]) OFFICE/OUTPATIENT VISIT EST Diagnosis: Urinary tract infection[ICD10: N39.0] Meena MCCORMICK [employer] CPT-4: 11115 04/30/2020 ([id number]) OFFICE/OUTPATIENT VISIT EST Diagnosis: Dizziness[ICD10: R42] Diagnosis: Depressed mood with feeling of loneliness[ICD10: F32.9] Diagnosis: Insomnia[ICD10: G47.00] Ericka CHANEL [employer] CPT-4: 15468 04/09/2020 ([id number]) NURSE/OUTPATIENT VISIT EST Diagnosis: Coronary artery disease[ICD10: I25.10] Diagnosis: Fatigue[ICD10: R53.83] Diagnosis: Essential (primary) hypertension[ICD10: I10] Ericka MCCORMICK [employer] CPT-4: 95820 04/07/2020 ([id number]) OFFICE/OUTPATIENT VISIT EST Diagnosis: Fatigue[ICD10: R53.83] Meena Li [facility] CPT-4: 61771 11/22/2019 ([id number]) NURSE/OUTPATIENT VISIT EST Diagnosis: Essential (primary) hypertension[ICD10: I10] Diagnosis: Coronary artery disease[ICD10: I25.10] Diagnosis: Encounter for general adult medical examination with abnormal findings[ICD10: Z00.01] Ericka Garcíacurtispromise MCCORMICK [employer] CPT-4: 04257 09/30/2019 ([id number]) OFFICE/OUTPATIENT VISIT NEW Diagnosis: Essential (primary) hypertension[ICD10: I10] Diagnosis: Coronary artery disease[ICD10: I25.10] Diagnosis: Aortic valve stenosis with insufficiency[ICD10: I35.2] Ericka Sanchezpromise MCCORMICK [employer] CPT-4: 93737 09/10/2019 Plan of Care Planned Activity Notes [...] : F43.0 11/10/2020 Appointment: Ericka Mccormick WPtel: [address] [place], [place] [id number] FOLLOW UP 11/10/2020 Patient Education: trazodone- [employer] Coupon [phone] [email or web address] Completed 11/10/2020 Visit Diagnosis Plan: Mass of upper lobe of right lung Discussion: CT scan of lung results discussed with patient and told this looks like cancer Agrees to see pulmonology to see if will be amenable to bronchoscopy to get cells/washings ICD-9 : 786.6 ICD-10 : R91.8 07/29/2020 Appointment: [facility]ccormick [facility]Ptel[facility] [phone] [facility] [facility] 07/29/2020 Care Plan: Referral Order SNOMED-CT : 30 5073415 Pending 07/29/2020 Care Plan: CT SFT TSUE NCK W/O & W/DYE L OINY : 05175-7 Pending 07/21/2020 Visit Diagnosis Plan: Fatigue Discussion: [...] 07/20/2020 Appointment: Sara Aguila [facility]Ptel[facility] [phone] [facility] AC[facility] ILL[facility] 07/20/2020 Patient Education: Patient Medication [...] ICD-10 : N39.0 04/30/2020 Appointment: Meena Li [address] [place], [place] [id number] ACUTE ILLNESS 04/30/2020 Appointment: Meena Li [address] [place], [place] [id number] 04/21/2020 1020---patient needed seen fo [...] : F32.9 04/09/2020 Appointment: Ericka Mccormick WPtel: [address] [place] [address] [place] FOLLOW UP 04/09/2020 Care Plan: COMPREHEN METAB[place] : 79830-3 Pending 04/09/2020 Appointment: Ericka Mccormick WPtel: [address] [place] [address] [place] LAB 04/07/2020 Visit Diagnosis Plan: Fatigue Discussion: no other sym ptoms other than fatigue for 4 weeks so will update labs. order sent to [facility] for blood work and ua with c&s. instructed to call office with new or worsening symptoms. ICD-9 : 780.79 ICD-10 : R53.83 11/22/2019 Appointment: Meena Li [address] [place], [place] [address] [address] TELEMEDICINE 11/22/2019 Appointment: Ericka Mccormick WPtel: [address] [place] [address] US LAB 09/30/2019 Visit Diagnosis Plan: Coronary [...] : I10 09/10/2019 Appointment: Ericka Mccormick WPtel: [phone] [place], [place] [id number] [place] NEW PATIENT 09/10/2019 Patient Education: carvedilol- [employer] Elvin [id number] [email or web address] Completed 09/10/2019 Appointment: Ericka Mccormick WPtel: [phone] [facility] [place] RESCHEDULED 08/20/2019 Appointment: Ericka Mccormick WPtel: [address] [place], [place] [phone] [place] CANCELED 07/22/2019 Referral: Vikram Maguire WPtel: [phone] [facility] [address] [id number] [place] Referral Appointment Requested Instructions No Instructions Medical Equipment No Medical Equipment data Health Concerns Section Health Concerns data not found Goals Section Goals data not found Interventions Section Interventions data not found Health Status Evaluations/Outcomes Section Health Status Evaluations/Outcomes data not found Advance Directives No Advance Directive data
--- OUTSIDE RECORDS SUMMARY | 2021-02-15 18:54 | XMS REPORT | CCD ---
Author Author Erica Mccormick D.O. Organization [facility] Address [address] [place] [address] Phone Care Team Providers Care Birdcage Assembler Name Role Phone PP Unavailable CCM Unavailable Summary Purpose Interface Exchange Insurance Providers Payer name Policy type / Coverage type Covered republican ID Effective Begin Date Effective End Date WPS MEDICARE PART B [place] Medicare Part B [id number] Unknown Unknown BLUE [place] [place] MEDICARE SU[place] Medicare Part B X [id number] Unknown Unknown Family History Family History data not found Social History Social History Element Codes Description Effective Dates Marital status Unknown 09/10/2019 Number of children Unknown 1 09/10/2019 Employment Unknown Retired 09/10/[address]: 4605393 Former smoker quit 201109/10/[address]: 973099 Currently drinks alcohol 09/09 Frequency of drinks SNOMED CT: 328748981 1-4 drinks per week Allergies, Adverse Reactions, [...] Fill Instructions paroxetine 20 mg tablet RxNorm: 2345285 1 Tablet(s) Oral QD 01/20/2021 Active pantoprazole 20 mg tablet,delayed release RxNorm: 361988 1 Tablet(s) Oral two times a day 12/22/2020 03/21/2021 Active pantoprazole 20 mg tablet,delayed release RxNorm: 889565 1 Tablet(s) Oral two times a day 12/22/2020 12/22/2020 Inactive paroxetine 20 mg tablet RxNorm: 1692676 1 Tablet(s) Oral QD 021 12/15/2020 Inactive paroxetine 20 mg tablet RxNorm: 5539984 1 Tablet(s) Oral QD 021 12/15/2020 Inactive MagOx 400 mg (241.3 mg magnesium) tablet RxNorm: 376515 Take 1 Tablet(s) Oral every night at bedtime with melatonin 11/23/2020 No Stop Date Active melatonin 3 mg tablet RxNorm: 524182 Take 1-2 Tablet(s) Oral every night at bedtime 11/18/2020 No Stop Date Active atorvastatin 40 mg tablet RxNorm: 016562 Take 1 Tablet( s) Oral every night at bedtime 11/10/2020 No Stop Date Active Plavix 75 mg tablet RxNorm: 869412 Take 1 Tablet(s) Oral QD No Stop Date Active trazodone 50 mg tablet RxNorm: 659378 Take 1-2 Tablet(s ) Oral QPM as needed for sleep 11/10/2020 11/22/2020 Inactive alprazolam 0.25 mg tablet RxNorm: 954354 1/2-1 Tablet(s ) Oral QPM as needed for sleep 08/03/2020 09/01/2020 Inactive alprazolam 0.25 mg tablet RxNorm: 299937 1/2-1 Tablet(s ) Oral QPM as needed for sleep 08/03/2020 08/02/2020 Inactive Aspirin Low Dose 81 mg tablet,delayed release RxNorm: 961965 1 Tablet(s) Oral QD 09/10/2019 No Stop Date Active losartan 25 mg tablet RxNorm: 902510 1 Tablet(s) Oral QD 09/10/2019 No Stop Date Active carvedilol 6.25 mg tablet RxNorm: 025419 1 Tablet(s) Oral two t imes a day 09/10/2019 11/09/2020 Inactive Fish Oil 1,000 mg (120 mg-180 mg) capsule RxNorm: 1 Caps ule(s) Oral QD 09/10/2019 11/25/2019 Inactive Medication Administered No Medication Administered data Immunizations No Immunization data Results Observation Observation Code Item Item Code Result Date S ervice Location COMPREHENSIVE METABOLIC 52691 AST 16 U/L 2019 Unknown COMPREHENSIVE METABOLIC 69296 ALT 12 U/L 2019 Unknown COMPREHENSIVE METABOLIC 28170 BUN 13 mg/dL 2019 Unknown COMPREHENSIVE METABOLIC 36907 ALBUMIN 4.1 g/dL 2019 Unknown COMPREHENSIVE METABOLIC 13909 CHLORIDE 96 mmol/L 2019 Unknown COMPREHENSIVE METABOLIC 24028 Bili Total 1.1 mg/dL 04/09 Unknown COMPREHENSIVE METABOLIC 36105 ALK PHOS 80 U/L 2019 Unknown COMPREHENSIVE METABOLIC 54358 SODIUM 131 mmol/L 04/09 Unknown COMPREHENSIVE METABOLIC 10911 CREATININE 0.76 mg/dL 03/24 Unknown COMPREHENSIVE METABOLIC 91908 CALCIUM 9.0 mg/dL 2019 Unknown COMPREHENSIVE METABOLIC 62858 POTASSIUM 4.2 mmol/L 04/09 Unknown COMPREHENSIVE METABOLIC 84160 Total Protein 6.8 g/dL Unknown COMPREHENSIVE METABOLIC 87354 Glucose 101 mg/dL 2019 Unknown COMPREHENSIVE METABOLIC 65646 Bicarbonate 25 mmol/L 03/24 Unknown COMPREHENSIVE METABOLIC 79001 AGAP 10 mmol/L 2019 Unknown GFR CALC 1800158 GFR Non Afr Amr >60 mL/min 04/09/2020 Un known GFR CALC 0184825 GFR Afr Amr >60 mL/min 04/09/2020 Unknow n GAMMA GLUTAMYL TRANSFERASE 88164 GGT 19 U/L Unknown COMPLETE BLOOD COUNT [id number] WBC 6.3 10e9/L 04/07/20 20 Unknown COMPLETE BLOOD COUNT 8852800 RBC 4.36 10e12/L 2019 Unknown COMPLETE BLOOD COUNT 8956772 HEMOGLOBIN 15.2 g/dL 04/07/20 20 Unknown COMPLETE BLOOD COUNT 3444575 HEMATOCRIT 43.8 % 04/07/20 20 Unknown COMPLETE BLOOD COUNT [id number] MCV 100.5 fL 0 Unknown COMPLETE BLOOD COUNT 3460727 MCH 34.9 pg 0 Unknown COMPLETE BLOOD COUNT 7982211 MCHC 34.7 g/dL 0 Unknown COMPLETE BLOOD COUNT 2546929 PLATELET COUNT 254 10e9/L Unknown COMPLETE BLOOD COUNT 3206854 Mean Plt Volume 9.9 fL Unknown COMPLETE BLOOD COUNT 3487905 Neut Auto 63.3 % 0 Unknown COMPLETE BLOOD COUNT [id number] Lymph Auto 24.5 % 04/07/20 20 Unknown COMPLETE BLOOD COUNT [id number] [place] Auto 8.4 % 0 Unknown COMPLETE BLOOD COUNT 9431014 RDW 12.8 % 0 Unknown COMPLETE BLOOD COUNT 6233746 Eos Auto 3.2 % 0 Unknown COMPLETE BLOOD COUNT 4155877 Baso Auto 0.6 % 0 Unknown COMPLETE BLOOD COUNT 3019161 Neutrophil Abs 3.99 10e9/L Unknown COMPLETE BLOOD COUNT 5392085 Lymphocyte Abs 1.54 10e9/L Unknown COMPLETE BLOOD COUNT 7054590 Monocyte Abs 0.53 10e9/L 03/24 Unknown COMPLETE BLOOD COUNT 6104657 Eosinophil Abs 0.20 10e9/L Unknown COMPLETE BLOOD COUNT 7576262 RDW-SD 47.6 fL 0 Unknown COMPLETE BLOOD COUNT 9148571 Basophil Abs 0.04 10e9/L 03/24 Unknown VITAMIN B 12 54950 VITAMIN B12 661 pg/mL 04/07/2020 Unkn own LIPID GROUP 91619 Cholesterol 168 mg/dL 09/30/2019 Unkno wn LIPID GROUP 17644 Triglyceride 141 mg/dL 09/30/2019 Unkn own LIPID GROUP 46614 HDL CHOLESTEROL 66 mg/dL 09/30/2019 U nknown LIPID GROUP 71470 Chol/HDL Ratio 2.55 ratio 09/30/2019 U nknown LIPID GROUP 59121 NON-HDL Chol 102 mg/dL 09/30/2019 Unkn own LIPID GROUP 38988 LDL Cholesterol 74 mg/dL 09/30/2019 U nknown FREE T4 64409 T4 Free 0.76 ng/dL 09/30/2019 Unknown THYROID STIMULATING HORMONE 93054 TSH 2.186 uIU/mL 09/30/2019 Unknown GFR CALC 4994009 GFR Non Afr Amr >60 mL/min 09/30/2019 Un known GFR CALC 8649262 GFR Afr Amr >60 mL/min 09/30/2019 Unknow n COMPREHENSIVE METABOLIC 45663 AST 14 U/L 2019 Unknown COMPREHENSIVE METABOLIC 44421 ALT 11 U/L 2019 Unknown COMPREHENSIVE METABOLIC 61208 BUN 15 mg/dL 2019 Unknown COMPREHENSIVE METABOLIC 88677 ALBUMIN 4.0 g/dL 2019 Unknown COMPREHENSIVE METABOLIC 40678 CHLORIDE 96 mmol/L 2019 Unknown COMPREHENSIVE METABOLIC 30869 Bili Total 0.9 mg/dL 09/29 Unknown COMPREHENSIVE METABOLIC 65049 ALK PHOS 72 U/L 2019 Unknown COMPREHENSIVE METABOLIC 24438 SODIUM 132 mmol/L 09/29 Unknown COMPREHENSIVE METABOLIC 93609 CREATININE 0.73 mg/dL 11/2019 Unknown COMPREHENSIVE METABOLIC 12225 CALCIUM 9.1 mg/dL 2019 Unknown COMPREHENSIVE METABOLIC 55644 POTASSIUM 4.6 mmol/L 09/29 Unknown COMPREHENSIVE METABOLIC 05968 Total Protein 6.4 g/dL Unknown COMPREHENSIVE METABOLIC 48539 Glucose 97 mg/dL 2019 Unknown COMPREHENSIVE METABOLIC 61257 Bicarbonate 25 mmol/L 11/2019 Unknown COMPREHENSIVE METABOLIC 10317 AGAP 11 mmol/L 2019 Unknown COMPLETE BLOOD COUNT 9323210 WBC 5.3 10e9/L 09/30/19 20 Unknown COMPLETE BLOOD COUNT [id number] RBC 4.16 10e12/L 2019 Unknown COMPLETE BLOOD COUNT 2963268 HEMOGLOBIN 14.1 g/dL 09/30/19 20 Unknown COMPLETE BLOOD COUNT 7239898 HEMATOCRIT 42.6 % 09/30/19 20 Unknown COMPLETE BLOOD COUNT 2238160 MCV 102.4 fL 0 Unknown COMPLETE BLOOD COUNT 8092730 MCH 33.9 pg 0 Unknown COMPLETE BLOOD COUNT 0853225 MCHC 33.1 g/dL 0 Unknown COMPLETE BLOOD COUNT 8721143 PLATELET COUNT 273 10e9/L 11/2019 Unknown COMPLETE BLOOD COUNT 7980523 Mean Plt Volume 9.4 fL 11/2019 Unknown COMPLETE BLOOD COUNT 1628049 Neut Auto 57.3 % 0 Unknown COMPLETE BLOOD COUNT 7445287 Lymph Auto 29.3 % 09/30/19 20 Unknown COMPLETE BLOOD COUNT 0611526 [place] Auto 7.6 % 0 Unknown COMPLETE BLOOD COUNT 7058773 RDW 13.8 % 0 Unknown COMPLETE BLOOD COUNT 9989192 Eos Auto 4.5 % 0 Unknown COMPLETE BLOOD COUNT 3746692 Baso Auto 1.3 % 0 Unknown COMPLETE BLOOD COUNT 2628467 Neutrophil Abs 3.04 10e9/L Unknown COMPLETE BLOOD COUNT 1989938 Lymphocyte Abs 1.55 10e9/L Unknown COMPLETE BLOOD COUNT 6704110 Monocyte Abs 0.40 10e9/L 11/2019 Unknown COMPLETE BLOOD COUNT 6230644 Eosinophil Abs 0.24 10e9/L Unknown COMPLETE BLOOD COUNT 4921934 RDW-SD 50.7 fL 0 Unknown COMPLETE BLOOD COUNT 3710829 Basophil Abs 0.07 10e9/L 11/2019 Unknown Procedures Procedure Codes Date ROUTINE VENIPUNCTURE CPT-4: 17934 07/20/2020 COMPREHEN METABOLIC PANEL CPT-4: 76061 07/20/2020 ASSAY OF FREE THYROXINE CPT-4: 08705 07/20/2020 ASSAY THYROID STIM HORMONE CPT-4: 05947 07/20/2020 COMPLETE CBC W/AUTO DIFF WBC CPT-4: 59599 07/20/2020 RBC SED RATE AUTOMATED CPT-4: 07258 07/20/2020 URINALYSIS NONAUTO W/O SCOPE CPT-4: 86013 04/30/2020 URINE CULTURE/ COLONY COUNT CPT-4: 28788 04/30/2020 ROUTINE VENIPUNCTURE CPT-4: 83615 04/07/2020 COMPLETE CBC W/AUTO DIFF WBC CPT-4: 70638 04/07/2020 VITAMIN B-12 CPT-4: 24789 04/07/2020 ASSAY OF GGT CPT-4: 32809 04/07/2020 ROUTINE VENIPUNCTURE CPT-4: 27989 09/30/2019 ASSAY OF FREE THYROXINE CPT-4: 79445 09/30/2019 ASSAY THYROID STIM HORMONE CPT-4: 43413 09/30/2019 COMPREHEN METABOLIC PANEL CPT-4: 69152 09/30/2019 COMPLETE CBC W/AUTO DIFF WBC CPT-4: 86557 09/30/2019 LIPID PANEL CPT-4: 61212 09/30/2019 Vital Signs Date Vital 12/30/2020 Blood Pressure 1: 134/80 Code: 8480-6 BMI: 14.1 Code: 17599-4 Heart Rate 1: 72 bpm Height: 5'5" Code: 8302-2 Respiratory Rate: 18 bpm SpO2: 97% Temperature: 36.6 (C) / 97.8 (F) Weight: 85 lbs Code: 11512-4 11/10/2020 Blood Pressure 1: 130/74 Code: 8480-6 Heart Rate 1: 56 bpm Respiratory Rate: 20 bpm SpO2: 98% Temperature: 36.3 (C) / 97.4 (F) We ight: 85 lbs Code: 67237-5 07/29/2020 Blood Pressure 1: 121/65 Code: 8480-6 BMI: 14.3 Code: 15139-0 Heart Rate 1: 58 bpm Height: 5'5" Code: 8302-2 Respiratory Rate: 15 bpm SpO2: 98% Temperature: 36.9 (C) / 98.4 (F) Weight: 86 lbs Code: 96127-8 07/20/2020 Blood Pressure 1: 123/69 Code: 8480-6 Heart Rate 1: 68 bpm Respiratory Rate: 15 bpm SpO2: 99% Temperature: 36.6 (C) / 97.8 (F) We ight: 83 lbs Code: 05661-3 04/30/2020 Blood Pressure 1: 128/82 Code: 8480-6 Heart Rate 1: 68 bpm Respiratory Rate: 20 bpm SpO2: 95% Temperature: 36.5 (C) / 97.7 (F) We ight: 91 lbs Code: 72452-1 04/09/2020 Blood Pressure 1: 130/78 Code: 8480-6 Heart Rate 1: 68 bpm Respiratory Rate: 20 bpm SpO2: 99% Temperature: 36.3 (C) / 97.4 (F) We ight: 90 lbs Code: 89620-2 11/22/2019 Temperature: 36.3 (C) / 97.3 (F) 09/10/2019 Blood Pressure 1: 128/72 Code: 8480-6 BMI: 15.6 Code: 96928-6 Heart Rate 1: 68 bpm Height: 5'5" Code: 8302-2 Respiratory Rate: 20 bpm SpO2: 97% Temperature: 36.6 (C) / 97.9 (F) Weight: 94 lbs Code: 67242-4 Functional Status No Functional Status data Reason [...] Diagnosis: Blood loss anemia[ICD10: D50.0] Robson CHANCE [employer] CPT-4: 18447 12/30/2020 ([id number]) NURSE/OUTPATIENT VISIT EST Diagnosis: Edema[ICD10: R60.9] Robson CHANCE [employer] AgencyNilda EnhanCV CPT-4: 08790 12/21/2020 ([id number]) OFFICE/OUTPATIENT VISIT EST Diagnosis: Coronary artery disease[ICD10: I25.10] Diagnosis: Essential (primary) hypertension[ICD10: I10] Diagnosis: Stress reaction[ICD10: F43.0] Diagnosis: Insomnia[ICD10: G47.00] Diagnosis: Pulmonary nodule[ICD10: R91.1] Robson CHANCE [employer] Nilda EnhanCV CPT-4: 07960 11/10/2020 ([id number]) NO CHARGE Diagnosis: Mass of upper lobe of right lung[ICD10: R91.8] Robson [facility] CPT-4: 93772 07/29/2020 ([id number]) OFFICE/OUTPATIENT VISIT EST Diagnosis: Fatigue[ICD10: R53.83] Diagnosis: Lymphadenopathy of head and neck[ICD10: R59.1] Diagnosis: Weight loss, non-intentional[ICD10: R63.4] Diagnosis: History of melanoma[ICD10: Z85.820] Diagnosis: Skin lesion[ICD10: L98.9] Sara NUNEZ [facility] CPT-4: 63060 07/20/2020 ([id number]) OFFICE/OUTPATIENT VISIT EST Diagnosis: Urinary tract infection[ICD10: N39.0] Meena [facility] CPT-4: 44246 04/30/2020 ([id number]) OFFICE/OUTPATIENT VISIT EST Diagnosis: Dizziness[ICD10: R42] Diagnosis: Depressed mood with feeling of loneliness[ICD10: F32.9] Diagnosis: Insomnia[ICD10: G47.00] Robson CHANEL [employer] CPT-4: 28310 04/09/2020 ([id number]) NURSE/OUTPATIENT VISIT EST Diagnosis: Coronary artery disease[ICD10: I25.10] Diagnosis: Fatigue[ICD10: R53.83] Diagnosis: Essential (primary) hypertension[ICD10: I10] Robson MCCORMICK [employer] [facility] CPT-4: 56471 04/07/2020 ([id number]) OFFICE/OUTPATIENT VISIT EST Diagnosis: Fatigue[ICD10: R53.83] Meena Li [facility] CPT-4: 97019 11/22/2019 ([id number]) NURSE/OUTPATIENT VISIT EST Diagnosis: Essential (primary) hypertension[ICD10: I10] Diagnosis: Coronary artery disease[ICD10: I25.10] Diagnosis: Encounter for general adult medical examination with abnormal findings[ICD10: Z00.01] Robson MCCORMICK [employer] [facility] CPT-4: 81013 09/30/2019 ([id number]) OFFICE/OUTPATIENT VISIT NEW Diagnosis: Essential (primary) hypertension[ICD10: I10] Diagnosis: Coronary artery disease[ICD10: I25.10] Diagnosis: Aortic valve stenosis with insufficiency[ICD10: I35.2] Robson [facility] CPT-4: 24450 09/10/2019 Plan of Care Planned Activity Notes Codes Status Date Visit Plan: 12/30/2020 Visit Diagnosis Plan: Anxiety Discussion: Seems calmer today ICD-9 : 300.00 ICD-10 : F41.9 12/30/2020 Visit Diagnosis Plan: Coronary artery disease Discussi on: Has decided to wait on repeat cardiac cath and see cardiology in 2mos ICD-9 : 414.00 ICD-10 : I25.10 12/30/2020 Visit Diagnosis Plan: GERD (gastroesophageal reflux di sease) Discussion: Stable on pantoprazole ICD-9 : 530.81 ICD-10 : K21.9 12/30/2020 Appointment: Robson Mccormick WPtel: [address] [place], [place] [phone] NURSE SERVICES 12/21/2020 Visit Diagnosis Plan: Insomnia [...] F43.0 11/10/2020 Appointment: [facility]ccorm[facility] [phone] [id number] [facility] 11/10/2020 Patient Education: trazodone- [employer] Elvin [phone] [email or web address] Completed 11/10/2020 Visit Diagnosis Plan: Mass of upper lobe of right lung Discussion: CT scan of lung results discussed with patient and told this looks like cancer Agrees to see pulmonology to see if will be amenable to bronchoscopy to get cells/washings ICD-9 : 786.6 ICD-10 : R91.8 07/29/2020 Appointment: [facility]ccormick [facility] [phone] [id number] [facility] 07/29/2020 Care Plan: Referral Order SNOMED-CT : 30 [id number] Pending 07/29/2020 Care Plan: CT SFT TSUE NCK W/O & W/DYE L OINC : 61041-4 Pending 07/21/2020 Visit Diagnosis Plan: Fatigue Discussion: [...] 07/20/2020 [facility]ment: [facility] [phone] [id number] [facility] 07/20/2020 Patient Education: Patient Medication [...] : 599.0 ICD-10 : N39.0 04/30/2020 Appointment: Nino Liyson RNilda [address] [facility] ACUTE ILLNESS 04/30/2020 Appointment: Meena Li [address] [place], [place] [phone] 04/21/2020 1020---patient needed seen fo r appointment [...] : F32.9 04/09/2020 Appointment: Robson Mccormick WPtel: [address] [place], [place] [phone] [place] FOLLOW UP 04/09/2020 Care Plan: COMPREHEN [place]AB[place] : 67986-6 Pending 04/09/2020 Appointment: Robson Mccormick WPtel: [address] [place], [place] [phone] US LAB 04/07/2020 Visit Diagnosis Plan: Fatigue Discussion: no other sym ptoms other than fatigue for 4 weeks so will update labs. order sent to [facility] for blood work and ua with c&s. instructed to call office with new or worsening symptoms. ICD-9 : 780.79 ICD-10 : R53.83 11/22/2019 Appointment: Meena Li [address] [place], [place] [phone] TELEMEDICINE 11/22/2019 Appointment: Robson Mccormick WPtel: [address] [place], [place] [phone] US LAB 09/30/2019 Visit Diagnosis Plan: Coronary [...] : I10 09/10/2019 Appointment: Robson Mccormick WPtel: [address] [place], [place] [phone] [place] NEW PATIENT 09/10/2019 Patient Education: [email or web address]- [email or web address] Coupon [phone] [email or web address] Completed 09/10/2019 Appointment: Robson Mccormick WPtel: [address] [place], [place] [phone] US RESCHEDULED 08/20/2019 Appointment: Robson Mccormick WPtel: [address] [place], [place] [phone] [place] CANCELED 07/22/2019 Referral: Vikram Maguire WPtel: [address] [facility] [address] [id number] [place] Referral Appointment Requested Instructions No Instructions Medical Equipment No Medical Equipment data Health Concerns Section Health Concerns data not found Goals Section Goals data not found Interventions Section Interventions data not found Health Status Evaluations/Outcomes Section Health Status Evaluations/Outcomes data not found Advance Directives No Advance Directive data
--- OUTSIDE RECORDS SUMMARY | 2021-02-15 18:54 | XMS REPORT | CCD ---
Author Author Erica Mccormick D.O. Organization [facility] Address [address] [place] [address] Phone Care Team Providers Care Armhole Raiser Lockstitch Name Role Phone PP Unavailable CCM Unavailable Summary Purpose Interface Exchange Insurance Providers Payer name Policy type / Coverage type Covered constitution party ID Effective Begin Date Effective End Date WPS MEDICARE PART B [place] Medicare Part B [id number] Unknown Unknown [employer]UE [place] [place] MEDIC[place] SU[place] Medicare Part B X [id number] Unknown Unknown Family History Family History data not found Social History Social History Element Codes Description Effective Dates Marital status Unknown 09/10/2019 Number of children Unknown 1 09/10/2019 Employment Unknown Retired 09/10/[address]: 5735693 Former smoker quit 201109/10/[address]: 619095 Currently drinks alcohol 09/09 Frequency of drinks SNOMED CT: 199714253 1-4 drinks per week Allergies, Adverse Reactions, [...] Fill Instructions paroxetine 20 mg tablet RxNorm: 9388171 1 Tablet(s) Oral QD 01/20/2021 Inactive pantoprazole 20 mg tablet,delayed release RxNorm: 241547 1 Tablet(s) Oral two times a day 12/22/2020 03/21/2021 Active pantoprazole 20 mg tablet,delayed release RxNorm: 193232 1 Tablet(s) Oral two times a day 12/22/2020 12/22/2020 Inactive paroxetine 20 mg tablet RxNorm: 3613796 1 Tablet(s) Oral QD 021 12/15/2020 Inactive paroxetine 20 mg tablet RxNorm: 7590270 1 Tablet(s) Oral QD 021 12/15/2020 Inactive MagOx 400 mg (241.3 mg magnesium) tablet RxNorm: 650793 Take 1 Tablet(s) Oral every night at bedtime with melatonin 11/23/2020 01/24/2021 Inactive melatonin 3 mg tablet RxNorm: 865336 Take 1-2 Tablet(s) Oral every night at bedtime 11/18/2020 No Stop Date Active atorvastatin 40 mg tablet RxNorm: 873956 Take 1 Tablet( s) Oral every night at bedtime 11/10/2020 No Stop Date Active Plavix 75 mg tablet RxNorm: 274615 Take 1 Tablet(s) Oral QD No Stop Date Active trazodone 50 mg tablet RxNorm: 798971 Take 1-2 Tablet(s ) Oral QPM as needed for sleep 11/10/2020 11/22/2020 Inactive alprazolam 0.25 mg tablet RxNorm: 802760 1/2-1 Tablet(s ) Oral QPM as needed for sleep 08/03/2020 09/01/2020 Inactive alprazolam 0.25 mg tablet RxNorm: 050521 1/2-1 Tablet(s ) Oral QPM as needed for sleep 08/03/2020 08/02/2020 Inactive Aspirin Low Dose 81 mg tablet,delayed release RxNorm: 085383 1 Tablet(s) Oral QD 09/10/2019 No Stop Date Active losartan 25 mg tablet RxNorm: 135933 1 Tablet(s) Oral QD 09/10/2019 No Stop Date Active carvedilol 6.25 mg tablet RxNorm: 756331 1 Tablet(s) Oral two t imes a day 09/10/2019 11/09/2020 Inactive Fish Oil 1,000 mg (120 mg-180 mg) capsule RxNorm: 1 Caps ule(s) Oral QD 09/10/2019 11/25/2019 Inactive Medication Administered No Medication Administered data Immunizations No Immunization data Results Observation Observation Code Item Item Code Result Date S ervice Location COMPLETE BLOOD COUNT [id number] WBC 6.1 10e9/L 01/26/20 21 Unknown COMPLETE BLOOD COUNT [id number] RBC 3.34 10e12/L 2020 Unknown COMPLETE BLOOD COUNT [id number] HEMOGLOBIN 8.8 g/dL 01/26/20 21 Unknown COMPLETE BLOOD COUNT [id number] HEMATOCRIT 28.5 % 01/26/20 21 Unknown COMPLETE BLOOD COUNT [id number] MCV 85.3 fL 1 Unknown COMPLETE BLOOD COUNT [id number] MCH 26.3 pg 1 Unknown COMPLETE BLOOD COUNT 5193840 MCHC 30.9 g/dL 1 Unknown COMPLETE BLOOD COUNT [id number] PLATELET COUNT 268 10e9/L 07/2020 Unknown COMPLETE BLOOD COUNT [id number] Mean Plt Volume 8.7 fL 07/2020 Unknown COMPLETE BLOOD COUNT [id number] Neut Auto 67.7 % 1 Unknown COMPLETE BLOOD COUNT [id number] Lymph Auto 19.4 % 01/26/20 21 Unknown COMPLETE BLOOD COUNT [id number] Lamb Auto 8.4 % 1 Unknown COMPLETE BLOOD COUNT [id number] RDW 16.7 % 1 Unknown COMPLETE BLOOD COUNT [id number] Eos Auto 3.8 % 1 Unknown COMPLETE BLOOD COUNT [id number] Baso Auto 0.7 % 1 Unknown COMPLETE BLOOD COUNT [id number] Neutrophil Abs 4.13 10e9/L Unknown COMPLETE BLOOD COUNT [id number] Lymphocyte Abs 1.18 10e9/L Unknown COMPLETE BLOOD COUNT [id number] Monocyte Abs 0.51 10e9/L 07/2020 Unknown COMPLETE BLOOD COUNT [id number] Eosinophil Abs 0.23 10e9/L Unknown COMPLETE BLOOD COUNT [id number] RDW-SD 50.9 fL 1 Unknown COMPLETE BLOOD COUNT [id number] Basophil Abs 0.04 10e9/L 07/2020 Unknown COMPREHENSIVE METABOLIC 69635 AST 16 U/L 2019 Unknown COMPREHENSIVE METABOLIC 97204 ALT 12 U/L 2019 Unknown COMPREHENSIVE METABOLIC 07560 BUN 13 mg/dL 2019 Unknown COMPREHENSIVE METABOLIC 93663 ALBUMIN 4.1 g/dL 2019 Unknown COMPREHENSIVE METABOLIC 07862 CHLORIDE 96 mmol/L 2019 Unknown COMPREHENSIVE METABOLIC 53927 Bili Total 1.1 mg/dL 04/09 Unknown COMPREHENSIVE METABOLIC 33599 ALK PHOS 80 U/L 2019 Unknown COMPREHENSIVE METABOLIC 03153 SODIUM 131 mmol/L 04/09 Unknown COMPREHENSIVE METABOLIC 78344 CREATININE 0.76 mg/dL 03/24 Unknown COMPREHENSIVE METABOLIC 45414 CALCIUM 9.0 mg/dL 2019 Unknown COMPREHENSIVE METABOLIC 46674 POTASSIUM 4.2 mmol/L 04/09 Unknown COMPREHENSIVE METABOLIC 31369 Total Protein 6.8 g/dL Unknown COMPREHENSIVE METABOLIC 50572 Glucose 101 mg/dL 2019 Unknown COMPREHENSIVE METABOLIC 36827 Bicarbonate 25 mmol/L 03/24 Unknown COMPREHENSIVE METABOLIC 45481 AGAP 10 mmol/L 2019 Unknown GFR CALC 0637625 GFR Non Afr Amr >60 mL/min 04/09/2020 Un known GFR CALC [id number] GFR Afr Amr >60 mL/min 04/09/2020 Unknow n GAMMA GLUTAMYL TRANSFERASE 41786 GGT 19 U/L Unknown COMPLETE BLOOD COUNT 2149759 WBC 6.3 10e9/L 04/07/20 20 Unknown COMPLETE BLOOD COUNT [id number] RBC 4.36 10e12/L 2019 Unknown COMPLETE BLOOD COUNT 1979110 HEMOGLOBIN 15.2 g/dL 04/07/20 20 Unknown COMPLETE BLOOD COUNT [id number] HEMATOCRIT 43.8 % 04/07/20 20 Unknown COMPLETE BLOOD COUNT [id number] MCV 100.5 fL 0 Unknown COMPLETE BLOOD COUNT [id number] MCH 34.9 pg 0 Unknown COMPLETE BLOOD COUNT 7811508 MCHC 34.7 g/dL 0 Unknown COMPLETE BLOOD COUNT 0814844 PLATELET COUNT 254 10e9/L Unknown COMPLETE BLOOD COUNT 1136987 Mean Plt Volume 9.9 fL Unknown COMPLETE BLOOD COUNT 3461323 Neut Auto 63.3 % 0 Unknown COMPLETE BLOOD COUNT 4042006 Lymph Auto 24.5 % 04/07/20 20 Unknown COMPLETE BLOOD COUNT 0344872 Lamb Auto 8.4 % 0 Unknown COMPLETE BLOOD COUNT 5848174 RDW 12.8 % 0 Unknown COMPLETE BLOOD COUNT 5296197 Eos Auto 3.2 % 0 Unknown COMPLETE BLOOD COUNT 0479915 Baso Auto 0.6 % 0 Unknown COMPLETE BLOOD COUNT 1463004 Neutrophil Abs 3.99 10e9/L Unknown COMPLETE BLOOD COUNT 5777255 Lymphocyte Abs 1.54 10e9/L Unknown COMPLETE BLOOD COUNT [id number] Monocyte Abs 0.53 10e9/L 03/24 Unknown COMPLETE BLOOD COUNT 0745949 Eosinophil Abs 0.20 10e9/L Unknown COMPLETE BLOOD COUNT 7976844 RDW-SD 47.6 fL 0 Unknown COMPLETE BLOOD COUNT 7403566 Basophil Abs 0.04 10e9/L 03/24 Unknown VITAMIN B 12 51484 VITAMIN B12 661 pg/mL 04/07/2020 Unkn own LIPID GROUP 44002 Cholesterol 168 mg/dL 09/30/2019 Unkno wn LIPID GROUP 47768 Triglyceride 141 mg/dL 09/30/2019 Unkn own LIPID GROUP 07748 HDL CHOLESTEROL 66 mg/dL 09/30/2019 U nknown LIPID GROUP 91281 Chol/HDL Ratio 2.55 ratio 09/30/2019 U nknown LIPID GROUP 50709 NON-HDL Chol 102 mg/dL 09/30/2019 Unkn own LIPID GROUP 57965 LDL Cholesterol 74 mg/dL 09/30/2019 U nknown FREE T4 77477 T4 Free 0.76 ng/dL 09/30/2019 Unknown THYROID STIMULATING HORMONE 99732 TSH 2.186 uIU/mL 09/30/2019 Unknown GFR CALC 2518579 GFR Non Afr Amr >60 mL/min 09/30/2019 Un known GFR CALC 8542190 GFR Afr Amr >60 mL/min 09/30/2019 Unknow n COMPREHENSIVE METABOLIC 72598 AST 14 U/L 2019 Unknown COMPREHENSIVE METABOLIC 52376 ALT 11 U/L 2019 Unknown COMPREHENSIVE METABOLIC 69119 BUN 15 mg/dL 2019 Unknown COMPREHENSIVE METABOLIC 79210 ALBUMIN 4.0 g/dL 2019 Unknown COMPREHENSIVE METABOLIC 67629 CHLORIDE 96 mmol/L 2019 Unknown COMPREHENSIVE METABOLIC 04991 Bili Total 0.9 mg/dL 09/29 Unknown COMPREHENSIVE METABOLIC 61992 ALK PHOS 72 U/L 2019 Unknown COMPREHENSIVE METABOLIC 85292 SODIUM 132 mmol/L 09/29 Unknown COMPREHENSIVE METABOLIC 81340 CREATININE 0.73 mg/dL 11/2019 Unknown COMPREHENSIVE METABOLIC 37935 CALCIUM 9.1 mg/dL 2019 Unknown COMPREHENSIVE METABOLIC 27587 POTASSIUM 4.6 mmol/L 09/29 Unknown COMPREHENSIVE METABOLIC 62127 Total Protein 6.4 g/dL Unknown COMPREHENSIVE METABOLIC 74560 Glucose 97 mg/dL 2019 Unknown COMPREHENSIVE METABOLIC 23977 Bicarbonate 25 mmol/L 11/2019 Unknown COMPREHENSIVE METABOLIC 22202 AGAP 11 mmol/L 2019 Unknown COMPLETE BLOOD COUNT 9844540 WBC 5.3 10e9/L 09/30/19 20 Unknown COMPLETE BLOOD COUNT 6121684 RBC 4.16 10e12/L 2019 Unknown COMPLETE BLOOD COUNT 9853381 HEMOGLOBIN 14.1 g/dL 09/30/19 20 Unknown COMPLETE BLOOD COUNT 2813535 HEMATOCRIT 42.6 % 09/30/19 20 Unknown COMPLETE BLOOD COUNT 9573300 MCV 102.4 fL 0 Unknown COMPLETE BLOOD COUNT 9387406 MCH 33.9 pg 0 Unknown COMPLETE BLOOD COUNT 5168340 MCHC 33.1 g/dL 0 Unknown COMPLETE BLOOD COUNT 2707252 PLATELET COUNT 273 10e9/L 11/2019 Unknown COMPLETE BLOOD COUNT 6337150 Mean Plt Volume 9.4 fL 11/2019 Unknown COMPLETE BLOOD COUNT 7853844 Neut Auto 57.3 % 0 Unknown COMPLETE BLOOD COUNT 6806284 Lymph Auto 29.3 % 09/30/19 20 Unknown COMPLETE BLOOD COUNT 3334257 Lamb Auto 7.6 % 0 Unknown COMPLETE BLOOD COUNT 8533728 RDW 13.8 % 0 Unknown COMPLETE BLOOD COUNT 2080178 Eos Auto 4.5 % 0 Unknown COMPLETE BLOOD COUNT 2103147 Baso Auto 1.3 % 0 Unknown COMPLETE BLOOD COUNT 3139138 Neutrophil Abs 3.04 10e9/L Unknown COMPLETE BLOOD COUNT 2611169 Lymphocyte Abs 1.55 10e9/L Unknown COMPLETE BLOOD COUNT 4046145 Monocyte Abs 0.40 10e9/L 11/2019 Unknown COMPLETE BLOOD COUNT 5218821 Eosinophil Abs 0.24 10e9/L Unknown COMPLETE BLOOD COUNT 4269289 RDW-SD 50.7 fL 0 Unknown COMPLETE BLOOD COUNT 9949489 Basophil Abs 0.07 10e9/L 11/2019 Unknown Procedures Procedure Codes Date ROUTINE VENIPUNCTURE CPT-4: 84946 01/25/2021 COMPREHEN METABOLIC PANEL CPT-4: 41002 01/25/2021 COMPLETE CBC W/AUTO DIFF WBC CPT-4: 42629 01/25/2021 URINE CULTURE/ COLONY COUNT CPT-4: 11769 01/25/2021 URINALYSIS NONAUTO W/O SCOPE CPT-4: 25103 01/25/2021 ROUTINE VENIPUNCTURE CPT-4: 33270 07/20/2020 COMPREHEN METABOLIC PANEL CPT-4: 74544 07/20/2020 ASSAY OF FREE THYROXINE CPT-4: 64329 07/20/2020 ASSAY THYROID STIM HORMONE CPT-4: 64548 07/20/2020 COMPLETE CBC W/AUTO DIFF WBC CPT-4: 83378 07/20/2020 RBC SED RATE AUTOMATED CPT-4: 90123 07/20/2020 URINALYSIS NONAUTO W/O SCOPE CPT-4: 46589 04/30/2020 URINE CULTURE/ COLONY COUNT CPT-4: 68325 04/30/2020 ROUTINE VENIPUNCTURE CPT-4: 92576 04/07/2020 COMPLETE CBC W/AUTO DIFF WBC CPT-4: 61166 04/07/2020 VITAMIN B-12 CPT-4: 22454 04/07/2020 ASSAY OF GGT CPT-4: 86062 04/07/2020 ROUTINE VENIPUNCTURE CPT-4: 42678 09/30/2019 ASSAY OF FREE THYROXINE CPT-4: 68764 09/30/2019 ASSAY THYROID STIM HORMONE CPT-4: 20980 09/30/2019 COMPREHEN METABOLIC PANEL CPT-4: 65735 09/30/2019 COMPLETE CBC W/AUTO DIFF WBC CPT-4: 56855 09/30/2019 LIPID PANEL CPT-4: 18811 09/30/2019 Vital Signs Date Vital 01/25/2021 Blood Pressure 1: 102/68 Code: 8480-6 Heart Rate 1: 76 bpm Respiratory Rate: 20 bpm SpO2: 100% Temperature: 36.9 (C) / 98.5 (F) We ight: 87 lbs Code: 59487-4 12/30/2020 Blood Pressure 1: 134/80 Code: 8480-6 BMI: 14.1 Code: 02982-3 Heart Rate 1: 72 bpm Height: 5'5" Code: 8302-2 Respiratory Rate: 18 bpm SpO2: 97% Temperature: 36.6 (C) / 97.8 (F) Weight: 85 lbs Code: 18220-4 11/10/2020 Blood Pressure 1: 130/74 Code: 8480-6 Heart Rate 1: 56 bpm Respiratory Rate: 20 bpm SpO2: 98% Temperature: 36.3 (C) / 97.4 (F) We ight: 85 lbs Code: 69197-2 07/29/2020 Blood Pressure 1: 121/65 Code: 8480-6 BMI: 14.3 Code: 93790-7 Heart Rate 1: 58 bpm Height: 5'5" Code: 8302-2 Respiratory Rate: 15 bpm SpO2: 98% Temperature: 36.9 (C) / 98.4 (F) Weight: 86 lbs Code: 14840-0 07/20/2020 Blood Pressure 1: 123/69 Code: 8480-6 Heart Rate 1: 68 bpm Respiratory Rate: 15 bpm SpO2: 99% Temperature: 36.6 (C) / 97.8 (F) We ight: 83 lbs Code: 11011-2 04/30/2020 Blood Pressure 1: 128/82 Code: 8480-6 Heart Rate 1: 68 bpm Respiratory Rate: 20 bpm SpO2: 95% Temperature: 36.5 (C) / 97.7 (F) We ight: 91 lbs Code: 07552-8 04/09/2020 Blood Pressure 1: 130/78 Code: 8480-6 Heart Rate 1: 68 bpm Respiratory Rate: 20 bpm SpO2: 99% Temperature: 36.3 (C) / 97.4 (F) We ight: 90 lbs Code: 22176-6 11/22/2019 Temperature: 36.3 (C) / 97.3 (F) 09/10/2019 Blood Pressure 1: 128/72 Code: 8480-6 BMI: 15.6 Code: 87937-8 Heart Rate 1: 68 bpm Height: 5'5" Code: 8302-2 Respiratory Rate: 20 bpm SpO2: 97% Temperature: 36.6 (C) / 97.9 (F) Weight: 94 lbs Code: 93720-8 Functional Status No Functional Status data Reason [...] balance mutivitamins fatigue 11/22/2019 ~generic 09/10/2019 New Patient---pennyl karan visit Encounters Encounter Performer Location Codes Date ([id number]) OFFICE/OUTPATIENT VISIT EST Diagnosis: Fatigue[ICD10: R53.83] Diagnosis: Blood loss anemia[ICD10: D50.0] Diagnosis: Coronary artery disease[ICD10: I25.10] Diagnosis: Hematuria[ICD10: R31.9] Robson [facility]EL [facility] CPT-4: 02566 01/25/2021 ([id number]) OFFICE/OUTPATIENT VISIT EST Diagnosis: GERD (gastroesophageal reflux disease)[ICD10: K21.9] Diagnosis: Duodenal ulcer[ICD10: K26.9] Diagnosis: Coronary artery disease[ICD10: I25.10] Diagnosis: Anxiety[ICD10: F41.9] Diagnosis: Blood loss anemia[ICD10: D50.0] [facility] CPT-4: 87519 12/30/2020 ([id number]) NURSE/OUTPATIENT VISIT EST Diagnosis: Edema[ICD10: R60.9] [facility] CPT-4: 75831 12/21/2020 ([id number]) OFFICE/OUTPATIENT VISIT EST Diagnosis: Coronary artery disease[ICD10: I25.10] Diagnosis: Essential (primary) hypertension[ICD10: I10] Diagnosis: Stress reaction[ICD10: F43.0] Diagnosis: Insomnia[ICD10: G47.00] Diagnosis: Pulmonary nodule[ICD10: R91.1] Robson [facility] CPT-4: 61122 11/10/2020 ([id number]) NO CHARGE Diagnosis: Mass of upper lobe of right lung[ICD10: R91.8] Robson [facility] CPT-4: 85573 07/29/2020 ([id number]) OFFICE/OUTPATIENT VISIT EST Diagnosis: Fatigue[ICD10: R53.83] Diagnosis: Lymphadenopathy of head and neck[ICD10: R59.1] Diagnosis: Weight loss, non-intentional[ICD10: R63.4] Diagnosis: History of melanoma[ICD10: Z85.820] Diagnosis: Skin lesion[ICD10: L98.9] Sara Mingo [facility] NUNEZ [facility] CPT-4: 17656 07/20/2020 ([id number]) OFFICE/OUTPATIENT VISIT EST Diagnosis: Urinary tract infection[ICD10: N39.0] Meena [facility] CPT-4: 49492 04/30/2020 ([id number]) OFFICE/OUTPATIENT VISIT EST Diagnosis: Dizziness[ICD10: R42] Diagnosis: Depressed mood with feeling of loneliness[ICD10: F32.9] Diagnosis: Insomnia[ICD10: G47.00] Robson CHANEL [facility] CPT-4: 54468 04/09/2020 ([id number]) NURSE/OUTPATIENT VISIT EST Diagnosis: Coronary artery disease[ICD10: I25.10] Diagnosis: Fatigue[ICD10: R53.83] Diagnosis: Essential (primary) hypertension[ICD10: I10] Robson [facility] CPT-4: 26725 04/07/2020 ([id number]) OFFICE/OUTPATIENT VISIT EST Diagnosis: Fatigue[ICD10: R53.83] Meena Li [facility] CPT-4: 65471 11/22/2019 ([id number]) NURSE/OUTPATIENT VISIT EST Diagnosis: Essential (primary) hypertension[ICD10: I10] Diagnosis: Coronary artery disease[ICD10: I25.10] Diagnosis: Encounter for general adult medical examination with abnormal findings[ICD10: Z00.01] Robson [facility] CPT-4: 02375 09/30/2019 ([id number]) OFFICE/OUTPATIENT VISIT NEW Diagnosis: Essential (primary) hypertension[ICD10: I10] Diagnosis: Coronary artery disease[ICD10: I25.10] Diagnosis: Aortic valve stenosis with insufficiency[ICD10: I35.2] Robson [facility] CPT-4: 50313 09/10/2019 Plan of Care Planned Activity Notes Codes Status Date Visit Diagnosis Plan: Hematuria Discussion: Culture ur ine ICD-9 : 599.70 ICD-10 : R31.9 01/25/2021 Visit Diagnosis Plan: Blood loss anemia Discussion: Ch real CBC now ICD-9 : 280.0 ICD-10 : D50.0 01/25/2021 Appointment: Sara Aguila WPtel: [phone] [facility] [id number] CANCELED 01/01/2021 Visit Diagnosis Plan: Anxiety Discussion: [...] 530.81 ICD-10 : K21.9 12/30/2020 Appointment: Robson Mccormicktel: [address] [place], [place] [phone] US FOLLOW UP 12/30/2020 Appointment: Robson Mccormick WPtel: [address] [place], [place] [phone] NURSE SERVICES 12/21/2020 Visit Diagnosis Plan: Insomnia [...] 308.9 ICD-10 : F43.0 11/10/2020 Appointment: Robson Mccormicktel: [address] [place], [place] [phone] US FOLLOW UP 11/10/2020 Patient Education: trazodone- [employer] Coupon [phone] [email or web address] Completed 11/10/2020 Visit Diagnosis Plan: Mass of upper lobe of right lung Discussion: CT scan of lung results discussed with patient and told this looks like cancer Agrees to see pulmonology to see if will be amenable to bronchoscopy to get cells/washings ICD-9 : 786.6 ICD-10 : R91.8 07/29/2020 Appointment: Robson Mccormick WPtel: [address] [place], [place] [phone] US WORK IN 07/29/2020 Care Plan: Referral Order SNOMED-CT : 30 [id number] Pending 07/29/2020 Care Plan: CT SFT TSUE NCK W/O & W/DYE L OIDC : 64958-5 Pending 07/21/2020 Visit Diagnosis Plan: Fatigue Discussion: [...] : 709.9 ICD-10 : L98.9 07/20/2020 Appointment: iMngo Sara WPtel: [phone] ACUTE ILLNESS 07/20/2020 Patient Education: Patient [...] ICD-10 : N39.0 04/30/2020 Appointment: Meena Li [address] [place], [place] [phone] ACUTE ILLNESS 04/30/2020 Appointment: Meena Li [address] [place], [place] [phone] 04/21/2020 1020---patient needed seen [...] : F32.9 04/09/2020 Appointment: Robson Mccormick WPtel: [address] [place] [address] US FOLLOW UP 04/09/2020 Care Plan: COMPREHEN [place]AB[place] : 09181-4 Pending 04/09/2020 Appointment: Robson Mccormick WPtel: [address] [place] [address] US LAB 04/07/2020 Visit Diagnosis Plan: Fatigue Discussion: no other sym ptoms other than fatigue for 4 weeks so will update labs. order sent to [facility] for blood work and ua with c&s. instructed to call office with new or worsening symptoms. ICD-9 : 780.79 ICD-10 : R53.83 11/22/2019 Appointment: Meena Li [address] [place] [address] US TELEMEDICINE 11/22/2019 Appointment: Robson Mccormick WPtel: [address] [place] [address] US LAB 09/30/2019 Visit Diagnosis Plan: Coronary [...] : I10 09/10/2019 Appointment: Robson Mccormick WPtel: [address] [place], [place] [phone] [place] NEW PATIENT 09/10/2019 Patient Education: carvedilol- Opt[employer] Elvin [phone] [email or web address] Completed 09/10/2019 Appointment: Robson Mccormick WPtel: [address] [place], [place] [phone] US RESCHEDULED 08/20/2019 Appointment: Robson Mccormick WPtel: [address] [place], [place] [phone] US CANCELED 07/22/2019 Referral: Vikram Maguire WPtel: [phone] [facility] [address] [id number] [place] Referral Appointment Requested Instructions No Instructions Medical Equipment No Medical Equipment data Health Concerns Section Health Concerns data not found Goals Section Goals data not found Interventions Section Interventions data not found Health Status Evaluations/Outcomes Section Health Status Evaluations/Outcomes data not found Advance Directives No Advance Directive data
--- OUTSIDE RECORDS SUMMARY | 2021-02-15 18:54 | XMS REPORT | CCD ---
Author Author Erica Mccormick D.O. Organization [facility] DO 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 Name Role Phone PP Unavailable CCM Unavailable Summary Purpose Interface Exchange Insurance Providers Payer name Policy type / Coverage type Covered democrat ID Effective Begin Date Effective End Date WPS MEDICARE PART B [place] Medicare Part B [id number] Unknown Unknown [employer]UE [employer] [place] MEDIC[place] SU[place] Medicare Part B X [id number] Unknown Unknown Family History Family History data not found Social History Social History Element Codes Description Effective Dates Marital status Unknown 09/10/2019 Number of children Unknown 1 09/10/2019 Employment Unknown Retired 09/10/[address]: 0256569 Former smoker quit 201109/10/[address]: 398611 Currently drinks alcohol 09/09 Frequency of drinks SNOMED CT: 035298338 1-4 drinks per week Allergies, Adverse Reactions, [...] Fill Instructions paroxetine 20 mg tablet RxNorm: 1287169 1 Tablet(s) Oral QD 01/20/2021 Active pantoprazole 20 mg tablet,delayed release RxNorm: 642853 1 Tablet(s) Oral two times a day 12/22/2020 03/21/2021 Active pantoprazole 20 mg tablet,delayed release RxNorm: 024706 1 Tablet(s) Oral two times a day 12/22/2020 12/22/2020 Inactive paroxetine 20 mg tablet RxNorm: 3888470 1 Tablet(s) Oral QD 021 12/15/2020 Inactive paroxetine 20 mg tablet RxNorm: 5813146 1 Tablet(s) Oral QD 021 12/15/2020 Inactive MagOx 400 mg (241.3 mg magnesium) tablet RxNorm: 568837 Take 1 Tablet(s) Oral every night at bedtime with melatonin 11/23/2020 No Stop Date Active melatonin 3 mg tablet RxNorm: 411468 Take 1-2 Tablet(s) Oral every night at bedtime 11/18/2020 No Stop Date Active atorvastatin 40 mg tablet RxNorm: 551398 Take 1 Tablet( s) Oral every night at bedtime 11/10/2020 No Stop Date Active Plavix 75 mg tablet RxNorm: 518513 Take 1 Tablet(s) Oral QD No Stop Date Active trazodone 50 mg tablet RxNorm: 425905 Take 1-2 Tablet(s ) Oral QPM as needed for sleep 11/10/2020 11/22/2020 Inactive alprazolam 0.25 mg tablet RxNorm: 689513 1/2-1 Tablet(s ) Oral QPM as needed for sleep 08/03/2020 09/01/2020 Inactive alprazolam 0.25 mg tablet RxNorm: 597669 1/2-1 Tablet(s ) Oral QPM as needed for sleep 08/03/2020 08/02/2020 Inactive Aspirin Low Dose 81 mg tablet,delayed release RxNorm: 254393 1 Tablet(s) Oral QD 09/10/2019 No Stop Date Active losartan 25 mg tablet RxNorm: 278207 1 Tablet(s) Oral QD 09/10/2019 No Stop Date Active carvedilol 6.25 mg tablet RxNorm: 351340 1 Tablet(s) Oral two t imes a day 09/10/2019 11/09/2020 Inactive Fish Oil 1,000 mg (120 mg-180 mg) capsule RxNorm: 1 Caps ule(s) Oral QD 09/10/2019 11/25/2019 Inactive Medication Administered No Medication Administered data Immunizations No Immunization data Results Observation Observation Code Item Item Code Result Date S ervice Location COMPREHENSIVE METABOLIC 54796 AST 16 U/L 2019 Unknown COMPREHENSIVE METABOLIC 75891 ALT 12 U/L 2019 Unknown COMPREHENSIVE METABOLIC 49468 BUN 13 mg/dL 2019 Unknown COMPREHENSIVE METABOLIC 75444 ALBUMIN 4.1 g/dL 2019 Unknown COMPREHENSIVE METABOLIC 81759 CHLORIDE 96 mmol/L 2019 Unknown COMPREHENSIVE METABOLIC 49884 Bili Total 1.1 mg/dL 04/09 Unknown COMPREHENSIVE METABOLIC 75581 ALK PHOS 80 U/L 2019 Unknown COMPREHENSIVE METABOLIC 17752 SODIUM 131 mmol/L 04/09 Unknown COMPREHENSIVE METABOLIC 52141 CREATININE 0.76 mg/dL 03/24 Unknown COMPREHENSIVE METABOLIC 06852 CALCIUM 9.0 mg/dL 2019 Unknown COMPREHENSIVE METABOLIC 21307 POTASSIUM 4.2 mmol/L 04/09 Unknown COMPREHENSIVE METABOLIC 26770 Total Protein 6.8 g/dL Unknown COMPREHENSIVE METABOLIC 10470 Glucose 101 mg/dL 2019 Unknown COMPREHENSIVE METABOLIC 75080 Bicarbonate 25 mmol/L 03/24 Unknown COMPREHENSIVE METABOLIC 97370 AGAP 10 mmol/L 2019 Unknown GFR CALC 6278372 GFR Non Afr Amr >60 mL/min 04/09/2020 Un known GFR CALC 4955111 GFR Afr Amr >60 mL/min 04/09/2020 Unknow n GAMMA GLUTAMYL TRANSFERASE 53259 GGT 19 U/L Unknown COMPLETE BLOOD COUNT 9386745 WBC 6.3 10e9/L 04/07/20 20 Unknown COMPLETE BLOOD COUNT 7083513 RBC 4.36 10e12/L 2019 Unknown COMPLETE BLOOD COUNT 7411076 HEMOGLOBIN 15.2 g/dL 04/07/20 20 Unknown COMPLETE BLOOD COUNT 6687791 HEMATOCRIT 43.8 % 04/07/20 20 Unknown COMPLETE BLOOD COUNT 8348453 MCV 100.5 fL 0 Unknown COMPLETE BLOOD COUNT 6250240 MCH 34.9 pg 0 Unknown COMPLETE BLOOD COUNT 2727564 MCHC 34.7 g/dL 0 Unknown COMPLETE BLOOD COUNT 6941431 PLATELET COUNT 254 10e9/L Unknown COMPLETE BLOOD COUNT 4997961 Mean Plt Volume 9.9 fL Unknown COMPLETE BLOOD COUNT 5653245 Neut Auto 63.3 % 0 Unknown COMPLETE BLOOD COUNT 9580846 Lymph Auto 24.5 % 04/07/20 20 Unknown COMPLETE BLOOD COUNT 8453511 [place] Auto 8.4 % 0 Unknown COMPLETE BLOOD COUNT 3159102 RDW 12.8 % 0 Unknown COMPLETE BLOOD COUNT 0179956 Eos Auto 3.2 % 0 Unknown COMPLETE BLOOD COUNT 3400595 Baso Auto 0.6 % 0 Unknown COMPLETE BLOOD COUNT 8429008 Neutrophil Abs 3.99 10e9/L Unknown COMPLETE BLOOD COUNT 4424170 Lymphocyte Abs 1.54 10e9/L Unknown COMPLETE BLOOD COUNT 8841184 Monocyte Abs 0.53 10e9/L 03/24 Unknown COMPLETE BLOOD COUNT 0792025 Eosinophil Abs 0.20 10e9/L Unknown COMPLETE BLOOD COUNT 6593682 RDW-SD 47.6 fL 0 Unknown COMPLETE BLOOD COUNT 1615719 Basophil Abs 0.04 10e9/L 03/24 Unknown VITAMIN B 12 77444 VITAMIN B12 661 pg/mL 04/07/2020 Unkn own LIPID GROUP 98774 Cholesterol 168 mg/dL 09/30/2019 Unkno wn LIPID GROUP 98502 Triglyceride 141 mg/dL 09/30/2019 Unkn own LIPID GROUP 16832 HDL CHOLESTEROL 66 mg/dL 09/30/2019 U nknown LIPID GROUP 53393 Chol/HDL Ratio 2.55 ratio 09/30/2019 U nknown LIPID GROUP 63417 NON-HDL Chol 102 mg/dL 09/30/2019 Unkn own LIPID GROUP 15009 LDL Cholesterol 74 mg/dL 09/30/2019 U nknown FREE T4 28061 T4 Free 0.76 ng/dL 09/30/2019 Unknown THYROID STIMULATING HORMONE 97386 TSH 2.186 uIU/mL 09/30/2019 Unknown GFR CALC 3249782 GFR Non Afr Amr >60 mL/min 09/30/2019 Un known GFR CALC 0205189 GFR Afr Amr >60 mL/min 09/30/2019 Unknow n COMPREHENSIVE METABOLIC 96719 AST 14 U/L 2019 Unknown COMPREHENSIVE METABOLIC 20086 ALT 11 U/L 2019 Unknown COMPREHENSIVE METABOLIC 32251 BUN 15 mg/dL 2019 Unknown COMPREHENSIVE METABOLIC 25231 ALBUMIN 4.0 g/dL 2019 Unknown COMPREHENSIVE METABOLIC 34428 CHLORIDE 96 mmol/L 2019 Unknown COMPREHENSIVE METABOLIC 18446 Bili Total 0.9 mg/dL 09/29 Unknown COMPREHENSIVE METABOLIC 56810 ALK PHOS 72 U/L 2019 Unknown COMPREHENSIVE METABOLIC 98635 SODIUM 132 mmol/L 09/29 Unknown COMPREHENSIVE METABOLIC 60236 CREATININE 0.73 mg/dL 11/2019 Unknown COMPREHENSIVE METABOLIC 54985 CALCIUM 9.1 mg/dL 2019 Unknown COMPREHENSIVE METABOLIC 87951 POTASSIUM 4.6 mmol/L 09/29 Unknown COMPREHENSIVE METABOLIC 74950 Total Protein 6.4 g/dL Unknown COMPREHENSIVE METABOLIC 51367 Glucose 97 mg/dL 2019 Unknown COMPREHENSIVE METABOLIC 81115 Bicarbonate 25 mmol/L 11/2019 Unknown COMPREHENSIVE METABOLIC 01255 AGAP 11 mmol/L 2019 Unknown COMPLETE BLOOD COUNT 8458715 WBC 5.3 10e9/L 09/30/19 20 Unknown COMPLETE BLOOD COUNT 9372913 RBC 4.16 10e12/L 2019 Unknown COMPLETE BLOOD COUNT 4793068 HEMOGLOBIN 14.1 g/dL 09/30/19 20 Unknown COMPLETE BLOOD COUNT 0945503 HEMATOCRIT 42.6 % 09/30/19 20 Unknown COMPLETE BLOOD COUNT 0733641 MCV 102.4 fL 0 Unknown COMPLETE BLOOD COUNT 7394351 MCH 33.9 pg 0 Unknown COMPLETE BLOOD COUNT 5325399 MCHC 33.1 g/dL 0 Unknown COMPLETE BLOOD COUNT 3293134 PLATELET COUNT 273 10e9/L 11/2019 Unknown COMPLETE BLOOD COUNT 0737678 Mean Plt Volume 9.4 fL 11/2019 Unknown COMPLETE BLOOD COUNT 5963708 Neut Auto 57.3 % 0 Unknown COMPLETE BLOOD COUNT 8536495 Lymph Auto 29.3 % 09/30/19 20 Unknown COMPLETE BLOOD COUNT 2031658 [place] Auto 7.6 % 0 Unknown COMPLETE BLOOD COUNT 5050185 RDW 13.8 % 0 Unknown COMPLETE BLOOD COUNT 5096469 Eos Auto 4.5 % 0 Unknown COMPLETE BLOOD COUNT 7988618 Baso Auto 1.3 % 0 Unknown COMPLETE BLOOD COUNT 4083537 Neutrophil Abs 3.04 10e9/L Unknown COMPLETE BLOOD COUNT 5875007 Lymphocyte Abs 1.55 10e9/L Unknown COMPLETE BLOOD COUNT 8044947 Monocyte Abs 0.40 10e9/L 11/2019 Unknown COMPLETE BLOOD COUNT 7364017 Eosinophil Abs 0.24 10e9/L Unknown COMPLETE BLOOD COUNT 5094897 RDW-SD 50.7 fL 0 Unknown COMPLETE BLOOD COUNT 5026655 Basophil Abs 0.07 10e9/L 11/2019 Unknown Procedures Procedure Codes Date ROUTINE VENIPUNCTURE CPT-4: 33885 07/20/2020 COMPREHEN METABOLIC PANEL CPT-4: 25686 07/20/2020 ASSAY OF FREE THYROXINE CPT-4: 02339 07/20/2020 ASSAY THYROID STIM HORMONE CPT-4: 32365 07/20/2020 COMPLETE CBC W/AUTO DIFF WBC CPT-4: 95130 07/20/2020 RBC SED RATE AUTOMATED CPT-4: 74701 07/20/2020 URINALYSIS NONAUTO W/O SCOPE CPT-4: 46100 04/30/2020 URINE CULTURE/ COLONY COUNT CPT-4: 85732 04/30/2020 ROUTINE VENIPUNCTURE CPT-4: 10752 04/07/2020 COMPLETE CBC W/AUTO DIFF WBC CPT-4: 96308 04/07/2020 VITAMIN B-12 CPT-4: 71746 04/07/2020 ASSAY OF GGT CPT-4: 68804 04/07/2020 ROUTINE VENIPUNCTURE CPT-4: 74608 09/30/2019 ASSAY OF FREE THYROXINE CPT-4: 71674 09/30/2019 ASSAY THYROID STIM HORMONE CPT-4: 45212 09/30/2019 COMPREHEN METABOLIC PANEL CPT-4: 11667 09/30/2019 COMPLETE CBC W/AUTO DIFF WBC CPT-4: 59993 09/30/2019 LIPID PANEL CPT-4: 66635 09/30/2019 Vital Signs Date Vital 12/30/2020 Blood Pressure 1: 134/80 Code: 8480-6 BMI: 14.1 Code: 35348-6 Heart Rate 1: 72 bpm Height: 5'5" Code: 8302-2 Respiratory Rate: 18 bpm SpO2: 97% Temperature: 36.6 (C) / 97.8 (F) Weight: 85 lbs Code: 77711-6 11/10/2020 Blood Pressure 1: 130/74 Code: 8480-6 Heart Rate 1: 56 bpm Respiratory Rate: 20 bpm SpO2: 98% Temperature: 36.3 (C) / 97.4 (F) We ight: 85 lbs Code: 14040-2 07/29/2020 Blood Pressure 1: 121/65 Code: 8480-6 BMI: 14.3 Code: 18660-6 Heart Rate 1: 58 bpm Height: 5'5" Code: 8302-2 Respiratory Rate: 15 bpm SpO2: 98% Temperature: 36.9 (C) / 98.4 (F) Weight: 86 lbs Code: 88502-1 07/20/2020 Blood Pressure 1: 123/69 Code: 8480-6 Heart Rate 1: 68 bpm Respiratory Rate: 15 bpm SpO2: 99% Temperature: 36.6 (C) / 97.8 (F) We ight: 83 lbs Code: 33540-0 04/30/2020 Blood Pressure 1: 128/82 Code: 8480-6 Heart Rate 1: 68 bpm Respiratory Rate: 20 bpm SpO2: 95% Temperature: 36.5 (C) / 97.7 (F) We ight: 91 lbs Code: 19379-5 04/09/2020 Blood Pressure 1: 130/78 Code: 8480-6 Heart Rate 1: 68 bpm Respiratory Rate: 20 bpm SpO2: 99% Temperature: 36.3 (C) / 97.4 (F) We ight: 90 lbs Code: 78610-4 11/22/2019 Temperature: 36.3 (C) / 97.3 (F) 09/10/2019 Blood Pressure 1: 128/72 Code: 8480-6 BMI: 15.6 Code: 76963-9 Heart Rate 1: 68 bpm Height: 5'5" Code: 8302-2 Respiratory Rate: 20 bpm SpO2: 97% Temperature: 36.6 (C) / 97.9 (F) Weight: 94 lbs Code: 67864-7 Functional Status No Functional Status data Reason [...] Diagnosis: Blood loss anemia[ICD10: D50.0] Robson CHANCE [employer] CPT-4: 34872 12/30/2020 ([id number]) NURSE/OUTPATIENT VISIT EST Diagnosis: Edema[ICD10: R60.9] Robson CHANCE [employer] CPT-4: 10701 12/21/2020 ([id number]) OFFICE/OUTPATIENT VISIT EST Diagnosis: Coronary artery disease[ICD10: I25.10] Diagnosis: Essential (primary) hypertension[ICD10: I10] Diagnosis: Stress reaction[ICD10: F43.0] Diagnosis: Insomnia[ICD10: G47.00] Diagnosis: Pulmonary nodule[ICD10: R91.1] Robson CHANCE [employer] CPT-4: 62065 11/10/2020 ([id number]) NO CHARGE Diagnosis: Mass of upper lobe of right lung[ICD10: R91.8] Robson MCCORMICK DO [facility] CPT-4: 72342 07/29/2020 (77505) OFFICE/OUTPATIENT VISIT EST Diagnosis: Fatigue[ICD10: R53.83] Diagnosis: Lymphadenopathy of head and neck[ICD10: R59.1] Diagnosis: Weight loss, non-intentional[ICD10: R63.4] Diagnosis: History of melanoma[ICD10: Z85.820] Diagnosis: Skin lesion[ICD10: L98.9] Sara NUNEZ [facility] CPT-4: 46251 07/20/2020 ([id number]) OFFICE/OUTPATIENT VISIT EST Diagnosis: Urinary tract infection[ICD10: N39.0] Meena MCCORMICK DO [facility] CPT-4: 81441 04/30/2020 ([id number]) OFFICE/OUTPATIENT VISIT EST Diagnosis: Dizziness[ICD10: R42] Diagnosis: Depressed mood with feeling of loneliness[ICD10: F32.9] Diagnosis: Insomnia[ICD10: G47.00] Robson CHANEL [employer] CPT-4: 94801 04/09/2020 (40763) NURSE/OUTPATIENT VISIT EST Diagnosis: Coronary artery disease[ICD10: I25.10] Diagnosis: Fatigue[ICD10: R53.83] Diagnosis: Essential (primary) hypertension[ICD10: I10] Robson MCCORMICK [facility] CPT-4: 05199 04/07/2020 (07450) OFFICE/OUTPATIENT VISIT EST Diagnosis: Fatigue[ICD10: R53.83] Meena Li [facility] CPT-4: 87683 11/22/2019 ([id number]) NURSE/OUTPATIENT VISIT EST Diagnosis: Essential (primary) hypertension[ICD10: I10] Diagnosis: Coronary artery disease[ICD10: I25.10] Diagnosis: Encounter for general adult medical examination with abnormal findings[ICD10: Z00.01] Robson MCCORMICK [facility] CPT-4: 91809 09/30/2019 ([id number]) OFFICE/OUTPATIENT VISIT NEW Diagnosis: Essential (primary) hypertension[ICD10: I10] Diagnosis: Coronary artery disease[ICD10: I25.10] Diagnosis: Aortic valve stenosis with insufficiency[ICD10: I35.2] Robson MCCORMICK DO [facility] CPT-4: 72581 09/10/2019 Plan of Care Planned Activity Notes [...] : K21.9 12/30/2020 Appointment: Robson Mccormick WPtel: [address] [place], [place] [phone] NURSE SERVICES 12/21/2020 Visit Diagnosis Plan: Insomnia [...] : F43.0 11/10/2020 Appointment: Robson Mccormick WPtel: [facility] FOLLOW UP 11/10/2020 Patient Education: [email or web address]- [email or web address] Coupon [id number] [email or web address] Completed 11/10/2020 Visit Diagnosis Plan: Mass of upper lobe of right lung Discussion: CT scan of lung results discussed with patient and told this looks like cancer Agrees to see pulmonology to see if will be amenable to bronchoscopy to get cells/washings ICD-9 : 786.6 ICD-10 : R91.8 07/29/2020 Appointment: [facility] Mccormick [facility] [phone] [facility] [facility] 07/29/2020 Care Plan: Referral Order SNOMED-CT : 30 [id number] Pending 07/29/2020 Care Plan: CT SFT TSUE NCK W/O & W/DYE L OIMS : 71638-8 Pending 07/21/2020 Visit Diagnosis Plan: Fatigue Discussion: [...] 07/20/2020 Appointment: DannyruthieSara looney [facility] [phone] [facility] [facility] 07/20/2020 Patient Education: Patient Medication [...] : N39.0 04/30/2020 Appointment: Meena Li [address] [facility] ACUTE ILLNESS 04/30/2020 Appointment: GuillermoMeena rodriguez [address] [place], [place] [phone] 04/21/2020 1020---patient needed seen fo r appointment [...] : F32.9 04/09/2020 Appointment: Robson Mccormick WPtel: [address] [place], [place] [phone] FOLLOW UP 04/09/2020 Care Plan: COMPREH[place] : [address]-7 Pending 04/09/2020 Appointment: Robson Mccormick WPtel: [address] [place], [place] [phone] US LAB 04/07/2020 Visit Diagnosis Plan: Fatigue Discussion: no other sym ptoms other than fatigue for 4 weeks so will update labs. order sent to [facility] for blood work and ua with c&s. instructed to call office with new or worsening symptoms. ICD-9 : 780.79 ICD-10 : R53.83 11/22/2019 Appointment: Meena Li [address] [facility] US TELEMEDICINE 11/22/2019 Appointment: Robson Mccormick WPtel: [address] [place], [place] [phone] US LAB 09/30/2019 Visit Diagnosis Plan: Coronary [...] : I10 09/10/2019 Appointment: Robson Mccormick WPtel: [address] [place] [address] US NEW PATIENT 09/10/2019 Patient Education: [email or web address]- [email or web address] Coupon [phone] [email or web address] Completed 09/10/2019 Appointment: Robson Mccormick WPtel: [address] [place], [place] [phone] US RESCHEDULED 08/20/2019 Appointment: Robson Mccormick WPtel: [address] [place], [place] [phone] US CANCELED 07/22/2019 Referral: Vikram Maguire WPtel: [phone] [facility] [address] [id number] [place] Referral Appointment Requested Instructions No Instructions Medical Equipment No Medical Equipment data Health Concerns Section Health Concerns data not found Goals Section Goals data not found Interventions Section Interventions data not found Health Status Evaluations/Outcomes Section Health Status Evaluations/Outcomes data not found Advance Directives No Advance Directive data
--- OUTSIDE RECORDS SUMMARY | 2021-02-15 18:54 | XMS REPORT | CCD ---
Author Author Erica Mccormick D.O. Organization [facility]BSON MCCORMICK DO [facility] Address [address] [place] [address] Phone Care Team Providers Care Weir Fisherman Name Role Phone PP Unavailable CCM Unavailable Summary Purpose Interface Exchange Insurance Providers Payer name Policy type / Coverage type Covered green party ID Effective Begin Date Effective End Date WPS MEDICARE PART B [place] Medicare Part B [id number] Unknown Unknown BLUE [place] [place] MEDIC[place] SU[place] Medicare Part B X [id number] Unknown Unknown Family History Family History data not found Social History Social History Element Codes Description Effective Dates Marital status Unknown 09/10/2019 Number of children Unknown 1 09/10/2019 Employment Unknown Retired 09/10/[address]: 4799516 Former smoker quit 201109/10/[address]: 865795 Currently drinks alcohol 09/09 Frequency of drinks SNOMED CT: 108211080 1-4 drinks per week Allergies, Adverse Reactions, [...] Fill Instructions paroxetine 20 mg tablet RxNorm: 7278112 1 Tablet(s) Oral QD 01/20/2021 Active pantoprazole 20 mg tablet,delayed release RxNorm: 494529 1 Tablet(s) Oral two times a day 12/22/2020 03/21/2021 Active pantoprazole 20 mg tablet,delayed release RxNorm: 453726 1 Tablet(s) Oral two times a day 12/22/2020 12/22/2020 Inactive paroxetine 20 mg tablet RxNorm: 4543294 1 Tablet(s) Oral QD 021 12/15/2020 Inactive paroxetine 20 mg tablet RxNorm: 8083342 1 Tablet(s) Oral QD 021 12/15/2020 Inactive MagOx 400 mg (241.3 mg magnesium) tablet RxNorm: 123668 Take 1 Tablet(s) Oral every night at bedtime with melatonin 11/23/2020 No Stop Date Active melatonin 3 mg tablet RxNorm: 822437 Take 1-2 Tablet(s) Oral every night at bedtime 11/18/2020 No Stop Date Active atorvastatin 40 mg tablet RxNorm: 758899 Take 1 Tablet( s) Oral every night at bedtime 11/10/2020 No Stop Date Active Plavix 75 mg tablet RxNorm: 698093 Take 1 Tablet(s) Oral QD No Stop Date Active trazodone 50 mg tablet RxNorm: 558510 Take 1-2 Tablet(s ) Oral QPM as needed for sleep 11/10/2020 11/22/2020 Inactive alprazolam 0.25 mg tablet RxNorm: 270439 1/2-1 Tablet(s ) Oral QPM as needed for sleep 08/03/2020 09/01/2020 Inactive alprazolam 0.25 mg tablet RxNorm: 927539 1/2-1 Tablet(s ) Oral QPM as needed for sleep 08/03/2020 08/02/2020 Inactive Aspirin Low Dose 81 mg tablet,delayed release RxNorm: 557069 1 Tablet(s) Oral QD 09/10/2019 No Stop Date Active losartan 25 mg tablet RxNorm: 011907 1 Tablet(s) Oral QD 09/10/2019 No Stop Date Active carvedilol 6.25 mg tablet RxNorm: 055460 1 Tablet(s) Oral two t imes a day 09/10/2019 11/09/2020 Inactive Fish Oil 1,000 mg (120 mg-180 mg) capsule RxNorm: 1 Caps ule(s) Oral QD 09/10/2019 11/25/2019 Inactive Medication Administered No Medication Administered data Immunizations No Immunization data Results Observation Observation Code Item Item Code Result Date S ervice Location COMPREHENSIVE METABOLIC 48884 AST 16 U/L 2019 Unknown COMPREHENSIVE METABOLIC 80321 ALT 12 U/L 2019 Unknown COMPREHENSIVE METABOLIC 38211 BUN 13 mg/dL 2019 Unknown COMPREHENSIVE METABOLIC 01361 ALBUMIN 4.1 g/dL 2019 Unknown COMPREHENSIVE METABOLIC 51934 CHLORIDE 96 mmol/L 2019 Unknown COMPREHENSIVE METABOLIC 30077 Bili Total 1.1 mg/dL 04/09 Unknown COMPREHENSIVE METABOLIC 59321 ALK PHOS 80 U/L 2019 Unknown COMPREHENSIVE METABOLIC 10152 SODIUM 131 mmol/L 04/09 Unknown COMPREHENSIVE METABOLIC 77018 CREATININE 0.76 mg/dL 03/24 Unknown COMPREHENSIVE METABOLIC 63353 CALCIUM 9.0 mg/dL 2019 Unknown COMPREHENSIVE METABOLIC 33062 POTASSIUM 4.2 mmol/L 04/09 Unknown COMPREHENSIVE METABOLIC 13333 Total Protein 6.8 g/dL Unknown COMPREHENSIVE METABOLIC 92523 Glucose 101 mg/dL 2019 Unknown COMPREHENSIVE METABOLIC 51360 Bicarbonate 25 mmol/L 03/24 Unknown COMPREHENSIVE METABOLIC 41739 AGAP 10 mmol/L 2019 Unknown GFR CALC 4845804 GFR Non Afr Amr >60 mL/min 04/09/2020 Un known GFR CALC 6902776 GFR Afr Amr >60 mL/min 04/09/2020 Unknow n GAMMA GLUTAMYL TRANSFERASE 01227 GGT 19 U/L Unknown COMPLETE BLOOD COUNT 8449763 WBC 6.3 10e9/L 04/07/20 20 Unknown COMPLETE BLOOD COUNT 4335284 RBC 4.36 10e12/L 2019 Unknown COMPLETE BLOOD COUNT 6762851 HEMOGLOBIN 15.2 g/dL 04/07/20 20 Unknown COMPLETE BLOOD COUNT 0145510 HEMATOCRIT 43.8 % 04/07/20 20 Unknown COMPLETE BLOOD COUNT 7078170 MCV 100.5 fL 0 Unknown COMPLETE BLOOD COUNT 5615231 MCH 34.9 pg 0 Unknown COMPLETE BLOOD COUNT 7824043 MCHC 34.7 g/dL 0 Unknown COMPLETE BLOOD COUNT 2190019 PLATELET COUNT 254 10e9/L Unknown COMPLETE BLOOD COUNT 1056954 Mean Plt Volume 9.9 fL Unknown COMPLETE BLOOD COUNT 6672236 Neut Auto 63.3 % 0 Unknown COMPLETE BLOOD COUNT 7618974 Lymph Auto 24.5 % 04/07/20 20 Unknown COMPLETE BLOOD COUNT 4848908 [place] Auto 8.4 % 0 Unknown COMPLETE BLOOD COUNT 9576896 RDW 12.8 % 0 Unknown COMPLETE BLOOD COUNT 9817999 Eos Auto 3.2 % 0 Unknown COMPLETE BLOOD COUNT 0453333 Baso Auto 0.6 % 0 Unknown COMPLETE BLOOD COUNT 7268556 Neutrophil Abs 3.99 10e9/L Unknown COMPLETE BLOOD COUNT 5589863 Lymphocyte Abs 1.54 10e9/L Unknown COMPLETE BLOOD COUNT 7286214 Monocyte Abs 0.53 10e9/L 03/24 Unknown COMPLETE BLOOD COUNT 0332038 Eosinophil Abs 0.20 10e9/L Unknown COMPLETE BLOOD COUNT 5028803 RDW-SD 47.6 fL 0 Unknown COMPLETE BLOOD COUNT [id number] Basophil Abs 0.04 10e9/L 03/24 Unknown VITAMIN B 12 53148 VITAMIN B12 661 pg/mL 04/07/2020 Unkn own LIPID GROUP 58884 Cholesterol 168 mg/dL 09/30/2019 Unkno wn LIPID GROUP 24059 Triglyceride 141 mg/dL 09/30/2019 Unkn own LIPID GROUP 82703 HDL CHOLESTEROL 66 mg/dL 09/30/2019 U nknown LIPID GROUP 14019 Chol/HDL Ratio 2.55 ratio 09/30/2019 U nknown LIPID GROUP 62298 NON-HDL Chol 102 mg/dL 09/30/2019 Unkn own LIPID GROUP 28584 LDL Cholesterol 74 mg/dL 09/30/2019 U nknown FREE T4 33285 T4 Free 0.76 ng/dL 09/30/2019 Unknown THYROID STIMULATING HORMONE 01968 TSH 2.186 uIU/mL 09/30/2019 Unknown GFR CALC 1530520 GFR Afr Amr >60 mL/min 09/30/2019 Unknow n GFR CALC 3026639 GFR Non Afr Amr >60 mL/min 09/30/2019 Un known COMPREHENSIVE METABOLIC 97729 AST 14 U/L 2019 Unknown COMPREHENSIVE METABOLIC 20990 ALT 11 U/L 2019 Unknown COMPREHENSIVE METABOLIC 40885 BUN 15 mg/dL 2019 Unknown COMPREHENSIVE METABOLIC 77752 ALBUMIN 4.0 g/dL 2019 Unknown COMPREHENSIVE METABOLIC 00603 CHLORIDE 96 mmol/L 2019 Unknown COMPREHENSIVE METABOLIC 63638 Bili Total 0.9 mg/dL 09/29 Unknown COMPREHENSIVE METABOLIC 83187 ALK PHOS 72 U/L 2019 Unknown COMPREHENSIVE METABOLIC 86505 SODIUM 132 mmol/L 09/29 Unknown COMPREHENSIVE METABOLIC 97245 CREATININE 0.73 mg/dL 11/2019 Unknown COMPREHENSIVE METABOLIC 20571 CALCIUM 9.1 mg/dL 2019 Unknown COMPREHENSIVE METABOLIC 06005 POTASSIUM 4.6 mmol/L 09/29 Unknown COMPREHENSIVE METABOLIC 07784 Total Protein 6.4 g/dL Unknown COMPREHENSIVE METABOLIC 57464 Glucose 97 mg/dL 2019 Unknown COMPREHENSIVE METABOLIC 49162 Bicarbonate 25 mmol/L 11/2019 Unknown COMPREHENSIVE METABOLIC 64657 AGAP 11 mmol/L 2019 Unknown COMPLETE BLOOD COUNT 3722273 WBC 5.3 10e9/L 09/30/19 20 Unknown COMPLETE BLOOD COUNT 1433733 RBC 4.16 10e12/L 2019 Unknown COMPLETE BLOOD COUNT 5972531 HEMOGLOBIN 14.1 g/dL 09/30/19 20 Unknown COMPLETE BLOOD COUNT 7733918 HEMATOCRIT 42.6 % 09/30/19 20 Unknown COMPLETE BLOOD COUNT 9120573 MCV 102.4 fL 0 Unknown COMPLETE BLOOD COUNT 9874742 MCH 33.9 pg 0 Unknown COMPLETE BLOOD COUNT 5941567 MCHC 33.1 g/dL 0 Unknown COMPLETE BLOOD COUNT 1902340 PLATELET COUNT 273 10e9/L 11/2019 Unknown COMPLETE BLOOD COUNT 2987700 Mean Plt Volume 9.4 fL 11/2019 Unknown COMPLETE BLOOD COUNT 0849891 Neut Auto 57.3 % 0 Unknown COMPLETE BLOOD COUNT 7320235 Lymph Auto 29.3 % 09/30/19 20 Unknown COMPLETE BLOOD COUNT 3364342 [place] Auto 7.6 % 0 Unknown COMPLETE BLOOD COUNT 0303358 Eos Auto 4.5 % 0 Unknown COMPLETE BLOOD COUNT 9647460 RDW 13.8 % 0 Unknown COMPLETE BLOOD COUNT 9652405 Baso Auto 1.3 % 0 Unknown COMPLETE BLOOD COUNT 6243949 Neutrophil Abs 3.04 10e9/L Unknown COMPLETE BLOOD COUNT 5179024 Lymphocyte Abs 1.55 10e9/L Unknown COMPLETE BLOOD COUNT 4095011 Monocyte Abs 0.40 10e9/L 11/2019 Unknown COMPLETE BLOOD COUNT 1010965 Eosinophil Abs 0.24 10e9/L Unknown COMPLETE BLOOD COUNT 1330122 RDW-SD 50.7 fL 0 Unknown COMPLETE BLOOD COUNT 3533088 Basophil Abs 0.07 10e9/L 11/2019 Unknown Procedures Procedure Codes Date ROUTINE VENIPUNCTURE CPT-4: 86147 07/20/2020 COMPREHEN METABOLIC PANEL CPT-4: 27478 07/20/2020 ASSAY OF FREE THYROXINE CPT-4: 76434 07/20/2020 ASSAY THYROID STIM HORMONE CPT-4: 39014 07/20/2020 COMPLETE CBC W/AUTO DIFF WBC CPT-4: 34896 07/20/2020 RBC SED RATE AUTOMATED CPT-4: 93007 07/20/2020 URINALYSIS NONAUTO W/O SCOPE CPT-4: 60170 04/30/2020 URINE CULTURE/ COLONY COUNT CPT-4: 96379 04/30/2020 ROUTINE VENIPUNCTURE CPT-4: 20478 04/07/2020 COMPLETE CBC W/AUTO DIFF WBC CPT-4: 10389 04/07/2020 VITAMIN B-12 CPT-4: 18317 04/07/2020 ASSAY OF GGT CPT-4: 47412 04/07/2020 ROUTINE VENIPUNCTURE CPT-4: 03427 09/30/2019 ASSAY OF FREE THYROXINE CPT-4: 20386 09/30/2019 ASSAY THYROID STIM HORMONE CPT-4: 00712 09/30/2019 COMPREHEN METABOLIC PANEL CPT-4: 22852 09/30/2019 COMPLETE CBC W/AUTO DIFF WBC CPT-4: 83876 09/30/2019 LIPID PANEL CPT-4: 41264 09/30/2019 Vital Signs Date Vital 12/30/2020 Blood Pressure 1: 134/80 Code: 8480-6 BMI: 14.1 Code: 35389-0 Heart Rate 1: 72 bpm Height: 5'5" Code: 8302-2 Respiratory Rate: 18 bpm SpO2: 97% Temperature: 36.6 (C) / 97.8 (F) Weight: 85 lbs Code: 54454-6 11/10/2020 Blood Pressure 1: 130/74 Code: 8480-6 Heart Rate 1: 56 bpm Respiratory Rate: 20 bpm SpO2: 98% Temperature: 36.3 (C) / 97.4 (F) We ight: 85 lbs Code: 28921-4 07/29/2020 Blood Pressure 1: 121/65 Code: 8480-6 BMI: 14.3 Code: 17205-8 Heart Rate 1: 58 bpm Height: 5'5" Code: 8302-2 Respiratory Rate: 15 bpm SpO2: 98% Temperature: 36.9 (C) / 98.4 (F) Weight: 86 lbs Code: 13851-7 07/20/2020 Blood Pressure 1: 123/69 Code: 8480-6 Heart Rate 1: 68 bpm Respiratory Rate: 15 bpm SpO2: 99% Temperature: 36.6 (C) / 97.8 (F) We ight: 83 lbs Code: 87978-3 04/30/2020 Blood Pressure 1: 128/82 Code: 8480-6 Heart Rate 1: 68 bpm Respiratory Rate: 20 bpm SpO2: 95% Temperature: 36.5 (C) / 97.7 (F) We ight: 91 lbs Code: 89610-8 04/09/2020 Blood Pressure 1: 130/78 Code: 8480-6 Heart Rate 1: 68 bpm Respiratory Rate: 20 bpm SpO2: 99% Temperature: 36.3 (C) / 97.4 (F) We ight: 90 lbs Code: 53069-4 11/22/2019 Temperature: 36.3 (C) / 97.3 (F) 09/10/2019 Blood Pressure 1: 128/72 Code: 8480-6 BMI: 15.6 Code: 52058-3 Heart Rate 1: 68 bpm Height: 5'5" Code: 8302-2 Respiratory Rate: 20 bpm SpO2: 97% Temperature: 36.6 (C) / 97.9 (F) Weight: 94 lbs Code: 05143-7 Functional Status No Functional Status data Reason [...] Diagnosis: Blood loss anemia[ICD10: D50.0] Robson [employer]ANCE [employer] CPT-4: 17626 12/30/2020 ([id number]) NURSE/OUTPATIENT VISIT EST Diagnosis: Edema[ICD10: R60.9] Robson CHANCE AdenyoNilda Red Aril CPT-4: 53167 12/21/2020 ([id number]) OFFICE/OUTPATIENT VISIT EST Diagnosis: Coronary artery disease[ICD10: I25.10] Diagnosis: Essential (primary) hypertension[ICD10: I10] Diagnosis: Stress reaction[ICD10: F43.0] Diagnosis: Insomnia[ICD10: G47.00] Diagnosis: Pulmonary nodule[ICD10: R91.1] Rboson CHANCE Adenyo Nilda Red Aril CPT-4: 54611 11/10/2020 ([id number]) NO CHARGE Diagnosis: Mass of upper lobe of right lung[ICD10: R91.8] Robson MCCORMICK DO [facility] CPT-4: 06547 07/29/2020 ([id number]) OFFICE/OUTPATIENT VISIT EST Diagnosis: Fatigue[ICD10: R53.83] Diagnosis: Lymphadenopathy of head and neck[ICD10: R59.1] Diagnosis: Weight loss, non-intentional[ICD10: R63.4] Diagnosis: History of melanoma[ICD10: Z85.820] Diagnosis: Skin lesion[ICD10: L98.9] Sara NUNEZ [facility] CPT-4: 92544 07/20/2020 ([id number]) OFFICE/OUTPATIENT VISIT EST Diagnosis: Urinary tract infection[ICD10: N39.0] Meena MCCORMICK DO [facility] CPT-4: 16013 04/30/2020 ([id number]) OFFICE/OUTPATIENT VISIT EST Diagnosis: Dizziness[ICD10: R42] Diagnosis: Depressed mood with feeling of loneliness[ICD10: F32.9] Diagnosis: Insomnia[ICD10: G47.00] Robson CHANEL [employer] CPT-4: 93162 04/09/2020 ([id number]) NURSE/OUTPATIENT VISIT EST Diagnosis: Coronary artery disease[ICD10: I25.10] Diagnosis: Fatigue[ICD10: R53.83] Diagnosis: Essential (primary) hypertension[ICD10: I10] Robson MCCORMICK [employer] [facility] CPT-4: 28193 04/07/2020 ([id number]) OFFICE/OUTPATIENT VISIT EST Diagnosis: Fatigue[ICD10: R53.83] Meena Li [facility] CPT-4: 69498 11/22/2019 ([id number]) NURSE/OUTPATIENT VISIT EST Diagnosis: Essential (primary) hypertension[ICD10: I10] Diagnosis: Coronary artery disease[ICD10: I25.10] Diagnosis: Encounter for general adult medical examination with abnormal findings[ICD10: Z00.01] Robson MCCORMICK [employer] [facility] CPT-4: 94721 09/30/2019 ([id number]) OFFICE/OUTPATIENT VISIT NEW Diagnosis: Essential (primary) hypertension[ICD10: I10] Diagnosis: Coronary artery disease[ICD10: I25.10] Diagnosis: Aortic valve stenosis with insufficiency[ICD10: I35.2] Robson MCCORMICK DO [facility] CPT-4: 40407 09/10/2019 Plan of Care Planned Activity Notes [...] : K21.9 12/30/2020 Appointment: Robson Mccormick WPtel: [facility] [place] [facility] 12/21/2020 Visit Diagnosis Plan: Insomnia [...] F43.0 11/10/2020 Appointment: Robson Mccormick WPtel[facility] [phone] [facility] [facility] 11/10/2020 Patient Education: [email or web address]- [employer] Coupon [phone] [email or web address] Completed 11/10/2020 Visit Diagnosis Plan: Mass of upper lobe of right lung Discussion: CT scan of lung results discussed with patient and told this looks like cancer Agrees to see pulmonology to see if will be amenable to bronchoscopy to get cells/washings ICD-9 : 786.6 ICD-10 : R91.8 07/29/2020 Appointment: Robson Mccormick WPtel[facility] [phone] [facility] [facility] IN 07/29/2020 Care Plan: Referral Order SNOMED-CT : 30 [id number] Pending 07/29/2020 Care Plan: CT SFT TSUE NCK W/O & W/DYE L OINC : 08579-6 Pending 07/21/2020 Visit Diagnosis Plan: Fatigue Discussion: [...] [facility]Ptel[facility] [phone] [facility] ACUTE ILLNESS 07/20/2020 Patient Education: Patient Medication [...] : N39.0 04/30/2020 Appointment: Meena Li [address] [facility] ACUTE ILLNESS 04/30/2020 Appointment: Meena Li [facility] 04/21/2020 1020---patient needed seen fo r appointment [...] : F32.9 04/09/2020 Appointment: Robson Mccormick WPtel: [address] [place], [place] [id number] [place] FOLLOW UP 04/09/2020 Care Plan: COMPREH[place] : 37[address]-1 Pending 04/09/2020 Appointment: Robson Mccormick WPtel: [address] [place], [place] [phone] [place] LAB 04/07/2020 Visit Diagnosis Plan: Fatigue Discussion: no other sym ptoms other than fatigue for 4 weeks so will update labs. order sent to [facility] for blood work and ua with c&s. instructed to call office with new or worsening symptoms. ICD-9 : 780.79 ICD-10 : R53.83 11/22/2019 Appointment: Meena Li [address] [place], [place] [id number] TELEMEDICINE 11/22/2019 Appointment: Robson Mccormick WPtel: [address] [place], [place] [phone] [place] LAB 09/30/2019 Visit Diagnosis Plan: Coronary [...] : 401.9 ICD-10 : I10 09/10/2019 Appointment: Rosbon Mccormick WPtel: [address] [place], [place] [phone] [place] NEW PATIENT 09/10/2019 Patient Education: [email or web address]- [email or web address] Coupon [phone] [email or web address] Completed 09/10/2019 Appointment: Robson Mccormick WPtel[facility] [phone] [facility] [facility] RESCHEDULED 08/20/2019 Appointment: Robson Mccormick WPtel: [phone] [facility] [place] CANCELED 07/22/2019 Referral: Vikram Maguire WPtel: [phone] [facility] [address] [id number] [place] Referral Appointment Requested Instructions No Instructions Medical Equipment No Medical Equipment data Health Concerns Section Health Concerns data not found Goals Section Goals data not found Interventions Section Interventions data not found Health Status Evaluations/Outcomes Section Health Status Evaluations/Outcomes data not found Advance Directives No Advance Directive data
--- OUTSIDE RECORDS SUMMARY | 2021-02-15 18:54 | XMS REPORT | CCD ---
Author Author Erica Mccormick D.O. 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 Name Role Phone PP Unavailable CCM Unavailable Summary Purpose Interface Exchange Insurance Providers Payer name Policy type / Coverage type Covered libertarian ID Effective Begin Date Effective End Date WPS MEDICARE PART [place] Medicare Part B [id number] Unknown Unknown BLUE [employer] [place] MEDIC[place] Medicare Part B X [id number] Unknown Unknown Family History Family History data not found Social History Social History Element Codes Description Effective Dates Marital status Unknown 09/10/2019 Number of children Unknown 1 09/10/2019 Employment Unknown Retired 09/10/[address]: 4445857 Former smoker quit 201109/10/[address]: 676908 Currently drinks alcohol 09/09 Frequency of drinks SNOMED CT: 332521853 1-4 drinks per week Allergies, Adverse Reactions, [...] Fill Instructions paroxetine 20 mg tablet RxNorm: 7231271 1 Tablet(s) Oral QD 021 01/13/2021 Active paroxetine 20 mg tablet RxNorm: 6387277 1 Tablet(s) Oral QD 021 12/15/2020 Inactive MagOx 400 mg (241.3 mg magnesium) tablet RxNorm: 613517 Take 1 Tablet(s) Oral every night at bedtime with melatonin 11/23/2020 No Stop Date Active melatonin 3 mg tablet RxNorm: 350221 Take 1-2 Tablet(s) Oral every night at bedtime 11/18/2020 No Stop Date Active atorvastatin 40 mg tablet RxNorm: 455115 Take 1 Tablet( s) Oral every night at bedtime 11/10/2020 No Stop Date Active Plavix 75 mg tablet RxNorm: 374279 Take 1 Tablet(s) Oral QD No Stop Date Active trazodone 50 mg tablet RxNorm: 811227 Take 1-2 Tablet(s ) Oral QPM as needed for sleep 11/10/2020 11/22/2020 Inactive alprazolam 0.25 mg tablet RxNorm: 455737 1/2-1 Tablet(s ) Oral QPM as needed for sleep 08/03/2020 09/01/2020 Inactive alprazolam 0.25 mg tablet RxNorm: 798265 1/2-1 Tablet(s ) Oral QPM as needed for sleep 08/03/2020 08/02/2020 Inactive Aspirin Low Dose 81 mg tablet,delayed release RxNorm: 477860 1 Tablet(s) Oral QD 09/10/2019 No Stop Date Active losartan 25 mg tablet RxNorm: 536844 1 Tablet(s) Oral QD 09/10/2019 No Stop Date Active carvedilol 6.25 mg tablet RxNorm: 577510 1 Tablet(s) Oral two t imes a day 09/10/2019 11/09/2020 Inactive Fish Oil 1,000 mg (120 mg-180 mg) capsule RxNorm: 1 Caps ule(s) Oral QD 09/10/2019 11/25/2019 Inactive Medication Administered No Medication Administered data Immunizations No Immunization data Results Observation Observation Code Item Item Code Result Date S ervice Location COMPREHENSIVE METABOLIC 31984 AST 16 U/L 2019 Unknown COMPREHENSIVE METABOLIC 34743 ALT 12 U/L 2019 Unknown COMPREHENSIVE METABOLIC 47523 BUN 13 mg/dL 2019 Unknown COMPREHENSIVE MET[facility]OLIC 43176 ALBUMIN 4.1 g/dL 2019 Unknown COMPREHENSIVE METABOLIC 49193 CHLORIDE 96 mmol/L 2019 Unknown COMPREHENSIVE METABOLIC 73529 Bili Total 1.1 mg/dL 04/09 Unknown COMPREHENSIVE METABOLIC 63494 ALK PHOS 80 U/L 2019 Unknown COMPREHENSIVE METABOLIC 27422 SODIUM 131 mmol/L 04/09 Unknown COMPREHENSIVE METABOLIC 59726 CREATININE 0.76 mg/dL 03/24 Unknown COMPREHENSIVE METABOLIC 84055 CALCIUM 9.0 mg/dL 2019 Unknown COMPREHENSIVE METABOLIC 03731 POTASSIUM 4.2 mmol/L 04/09 Unknown COMPREHENSIVE METABOLIC 74820 Total Protein 6.8 g/dL Unknown COMPREHENSIVE METABOLIC 78113 Glucose 101 mg/dL 2019 Unknown COMPREHENSIVE METABOLIC 01824 Bicarbonate 25 mmol/L 03/24 Unknown COMPREHENSIVE METABOLIC 45992 AGAP 10 mmol/L 2019 Unknown GFR CALC 4618354 GFR Non Afr Amr >60 mL/min 04/09/2020 Un known GFR CALC 1501812 GFR Afr Amr >60 mL/min 04/09/2020 Unknow n GAMMA GLUTAMYL TRANSFERASE 61525 GGT 19 U/L Unknown COMPLETE BLOOD COUNT 6751222 WBC 6.3 10e9/L 04/07/20 20 Unknown COMPLETE BLOOD COUNT 0775172 RBC 4.36 10e12/L 2019 Unknown COMPLETE BLOOD COUNT 0143077 HEMOGLOBIN 15.2 g/dL 04/07/20 20 Unknown COMPLETE BLOOD COUNT 6703298 HEMATOCRIT 43.8 % 04/07/20 20 Unknown COMPLETE BLOOD COUNT [id number] MCV 100.5 fL 0 Unknown COMPLETE BLOOD COUNT [id number] MCH 34.9 pg 0 Unknown COMPLETE BLOOD COUNT 0489534 MCHC 34.7 g/dL 0 Unknown COMPLETE BLOOD COUNT 8031574 PLATELET COUNT 254 10e9/L Unknown COMPLETE BLOOD COUNT 1283091 Mean Plt Volume 9.9 fL Unknown COMPLETE BLOOD COUNT 9032806 Neut Auto 63.3 % 0 Unknown COMPLETE BLOOD COUNT 0161396 Lymph Auto 24.5 % 04/07/20 20 Unknown COMPLETE BLOOD COUNT 8010681 Reynolds Auto 8.4 % 0 Unknown COMPLETE BLOOD COUNT 5762991 RDW 12.8 % 0 Unknown COMPLETE BLOOD COUNT 4807766 Eos Auto 3.2 % 0 Unknown COMPLETE BLOOD COUNT 6960502 Baso Auto 0.6 % 0 Unknown COMPLETE BLOOD COUNT 3190094 Neutrophil Abs 3.99 10e9/L Unknown COMPLETE BLOOD COUNT 0637632 Lymphocyte Abs 1.54 10e9/L Unknown COMPLETE BLOOD COUNT 1030587 Monocyte Abs 0.53 10e9/L 03/24 Unknown COMPLETE BLOOD COUNT 7468918 Eosinophil Abs 0.20 10e9/L Unknown COMPLETE BLOOD COUNT 5928772 RDW-SD 47.6 fL 0 Unknown COMPLETE BLOOD COUNT 6560492 Basophil Abs 0.04 10e9/L 03/24 Unknown VITAMIN B 12 17881 VITAMIN B12 661 pg/mL 04/07/2020 Unkn own LIPID GROUP 88428 Cholesterol 168 mg/dL 09/30/2019 Unkno wn LIPID GROUP 27882 Triglyceride 141 mg/dL 09/30/2019 Unkn own LIPID GROUP 27535 HDL CHOLESTEROL 66 mg/dL 09/30/2019 U nknown LIPID GROUP 10459 Chol/HDL Ratio 2.55 ratio 09/30/2019 U nknown LIPID GROUP 19456 NON-HDL Chol 102 mg/dL 09/30/2019 Unkn own LIPID GROUP 21532 LDL Cholesterol 74 mg/dL 09/30/2019 U nknown FREE T4 35621 T4 Free 0.76 ng/dL 09/30/2019 Unknown THYROID STIMULATING HORMONE 09548 TSH 2.186 uIU/mL 09/30/2019 Unknown GFR CALC 3867848 GFR Non Afr Amr >60 mL/min 09/30/2019 Un known GFR CALC 5032338 GFR Afr Amr >60 mL/min 09/30/2019 Unknow n COMPREHENSIVE METABOLIC 64868 AST 14 U/L 2019 Unknown COMPREHENSIVE METABOLIC 07961 ALT 11 U/L 2019 Unknown COMPREHENSIVE METABOLIC 07942 BUN 15 mg/dL 2019 Unknown COMPREHENSIVE METABOLIC 15556 ALBUMIN 4.0 g/dL 2019 Unknown COMPREHENSIVE METABOLIC 59260 CHLORIDE 96 mmol/L 2019 Unknown COMPREHENSIVE METABOLIC 37461 Bili Total 0.9 mg/dL 09/29 Unknown COMPREHENSIVE METABOLIC 29746 ALK PHOS 72 U/L 2019 Unknown COMPREHENSIVE METABOLIC 14109 SODIUM 132 mmol/L 09/29 Unknown COMPREHENSIVE METABOLIC 21255 CREATININE 0.73 mg/dL 11/2019 Unknown COMPREHENSIVE METABOLIC 73193 CALCIUM 9.1 mg/dL 2019 Unknown COMPREHENSIVE METABOLIC 91491 POTASSIUM 4.6 mmol/L 09/29 Unknown COMPREHENSIVE METABOLIC 18741 Total Protein 6.4 g/dL Unknown COMPREHENSIVE METABOLIC 45825 Glucose 97 mg/dL 2019 Unknown COMPREHENSIVE METABOLIC 20075 Bicarbonate 25 mmol/L 11/2019 Unknown COMPREHENSIVE METABOLIC 41232 AGAP 11 mmol/L 2019 Unknown COMPLETE BLOOD COUNT 4377675 WBC 5.3 10e9/L 09/30/19 20 Unknown COMPLETE BLOOD COUNT 7568439 RBC 4.16 10e12/L 2019 Unknown COMPLETE BLOOD COUNT 8885034 HEMOGLOBIN 14.1 g/dL 09/30/19 20 Unknown COMPLETE BLOOD COUNT 0746989 HEMATOCRIT 42.6 % 09/30/19 20 Unknown COMPLETE BLOOD COUNT 7061464 MCV 102.4 fL 0 Unknown COMPLETE BLOOD COUNT 6222341 MCH 33.9 pg 0 Unknown COMPLETE BLOOD COUNT 0185356 MCHC 33.1 g/dL 0 Unknown COMPLETE BLOOD COUNT 0524724 PLATELET COUNT 273 10e9/L 11/2019 Unknown COMPLETE BLOOD COUNT 0327633 Mean Plt Volume 9.4 fL 11/2019 Unknown COMPLETE BLOOD COUNT 9587729 Neut Auto 57.3 % 0 Unknown COMPLETE BLOOD COUNT 1874165 Lymph Auto 29.3 % 09/30/19 20 Unknown COMPLETE BLOOD COUNT 1354541 Reynolds Auto 7.6 % 0 Unknown COMPLETE BLOOD COUNT 1029280 RDW 13.8 % 0 Unknown COMPLETE BLOOD COUNT 0422340 Eos Auto 4.5 % 0 Unknown COMPLETE BLOOD COUNT 0659392 Baso Auto 1.3 % 0 Unknown COMPLETE BLOOD COUNT 5059326 Neutrophil Abs 3.04 10e9/L Unknown COMPLETE BLOOD COUNT 8706963 Lymphocyte Abs 1.55 10e9/L Unknown COMPLETE BLOOD COUNT 5786697 Monocyte Abs 0.40 10e9/L 11/2019 Unknown COMPLETE BLOOD COUNT 4572288 Eosinophil Abs 0.24 10e9/L Unknown COMPLETE BLOOD COUNT 1916242 RDW-SD 50.7 fL 0 Unknown COMPLETE BLOOD COUNT 7774666 Basophil Abs 0.07 10e9/L 0 11/2019 Unknown Procedures Procedure Codes Date ROUTINE VENIPUNCTURE CPT-4: 81493 07/20/2020 COMPREHEN METABOLIC PANEL CPT-4: 85137 07/20/2020 ASSAY OF FREE THYROXINE CPT-4: 24058 07/20/2020 ASSAY THYROID STIM HORMONE CPT-4: 64319 07/20/2020 COMPLETE CBC W/AUTO DIFF WBC CPT-4: 46910 07/20/2020 RBC SED RATE AUTOMATED CPT-4: 85211 07/20/2020 URINALYSIS NONAUTO W/O SCOPE CPT-4: 73112 04/30/2020 URINE CULTURE/ COLONY COUNT CPT-4: 00580 04/30/2020 ROUTINE VENIPUNCTURE CPT-4: 78256 04/07/2020 COMPLETE CBC W/AUTO DIFF WBC CPT-4: 98464 04/07/2020 VITAMIN B-12 CPT-4: 57483 04/07/2020 ASSAY OF GGT CPT-4: 93892 04/07/2020 ROUTINE VENIPUNCTURE CPT-4: 56489 09/30/2019 ASSAY OF FREE THYROXINE CPT-4: 65630 09/30/2019 ASSAY THYROID STIM HORMONE CPT-4: 42083 09/30/2019 COMPREHEN METABOLIC PANEL CPT-4: 53254 09/30/2019 COMPLETE CBC W/AUTO DIFF WBC CPT-4: 03785 09/30/2019 LIPID PANEL CPT-4: 06863 09/30/2019 Vital Signs Date Vital 11/10/2020 Blood Pressure 1: 130/74 Code: 8480-6 Heart Rate 1: 56 bpm Respiratory Rate: 20 bpm SpO2: 98% Temperature: 36.3 (C) / 97.4 (F) We ight: 85 lbs Code: 35256-8 07/29/2020 Blood Pressure 1: 121/65 Code: 8480-6 BMI: 14.3 Code: 58169-9 Heart Rate 1: 58 bpm Height: 5'5" Code: 8302-2 Respiratory Rate: 15 bpm SpO2: 98% Temperature: 36.9 (C) / 98.4 (F) Weight: 86 lbs Code: 24182-4 07/20/2020 Blood Pressure 1: 123/69 Code: 8480-6 Heart Rate 1: 68 bpm Respiratory Rate: 15 bpm SpO2: 99% Temperature: 36.6 (C) / 97.8 (F) We ight: 83 lbs Code: 55131-1 04/30/2020 Blood Pressure 1: 128/82 Code: 8480-6 Heart Rate 1: 68 bpm Respiratory Rate: 20 bpm SpO2: 95% Temperature: 36.5 (C) / 97.7 (F) We ight: 91 lbs Code: 76546-3 04/09/2020 Blood Pressure 1: 130/78 Code: 8480-6 Heart Rate 1: 68 bpm Respiratory Rate: 20 bpm SpO2: 99% Temperature: 36.3 (C) / 97.4 (F) We ight: 90 lbs Code: 92636-1 11/22/2019 Temperature: 36.3 (C) / 97.3 (F) 09/10/2019 Blood Pressure 1: 128/72 Code: 8480-6 BMI: 15.6 Code: 78380-1 Heart Rate 1: 68 bpm Height: 5'5" Code: 8302-2 Respiratory Rate: 20 bpm SpO2: 97% Temperature: 36.6 (C) / 97.9 (F) Weight: 94 lbs Code: 32290-3 Functional Status No Functional Status data Reason [...] EST Diagnosis: Edema[ICD10: R60.9] Ericka MCCORMICK DO [facility] CPT-4: 19095 12/21/2020 ([id number]) OFFICE/OUTPATIENT VISIT EST Diagnosis: Coronary artery disease[ICD10: I25.10] Diagnosis: Essential (primary) hypertension[ICD10: I10] Diagnosis: Stress reaction[ICD10: F43.0] Diagnosis: Insomnia[ICD10: G47.00] Diagnosis: Pulmonary nodule[ICD10: R91.1] Ericka [facility] CPT-4: 25619 11/10/2020 ([id number]) NO CHARGE Diagnosis: Mass of upper lobe of right lung[ICD10: R91.8] Ericka MCCORMICK [facility] CPT-4: 18416 07/29/2020 ([id number]) OFFICE/OUTPATIENT VISIT EST Diagnosis: Fatigue[ICD10: R53.83] Diagnosis: Lymphadenopathy of head and neck[ICD10: R59.1] Diagnosis: Weight loss, non-intentional[ICD10: R63.4] Diagnosis: History of melanoma[ICD10: Z85.820] Diagnosis: Skin lesion[ICD10: L98.9] Sara Memoaure NUNEZ [facility] CPT-4: 61860 07/20/2020 ([id number]) OFFICE/OUTPATIENT VISIT EST Diagnosis: Urinary tract infection[ICD10: N39.0] Meena MCC[facility]ICK [facility] CPT-4: 06475 04/30/2020 ([id number]) OFFICE/OUTPATIENT VISIT EST Diagnosis: Dizziness[ICD10: R42] Diagnosis: Depressed mood with feeling of loneliness[ICD10: F32.9] Diagnosis: Insomnia[ICD10: G47.00] Ericka CHANEL [facility] CPT-4: 72238 04/09/2020 ([id number]) NURSE/OUTPATIENT VISIT EST Diagnosis: Coronary artery disease[ICD10: I25.10] Diagnosis: Fatigue[ICD10: R53.83] Diagnosis: Essential (primary) hypertension[ICD10: I10] Ericka MCCORMICK [facility] CPT-4: 05432 04/07/2020 ([id number]) OFFICE/OUTPATIENT VISIT EST Diagnosis: Fatigue[ICD10: R53.83] Meena Li [facility] CPT-4: 28601 11/22/2019 ([id number]) NURSE/OUTPATIENT VISIT EST Diagnosis: Essential (primary) hypertension[ICD10: I10] Diagnosis: Coronary artery disease[ICD10: I25.10] Diagnosis: Encounter for general adult medical examination with abnormal findings[ICD10: Z00.01] Ericka Garcíacurtispromise MCCORMICK [facility] CPT-4: 31079 09/30/2019 ([id number]) OFFICE/OUTPATIENT VISIT NEW Diagnosis: Essential (primary) hypertension[ICD10: I10] Diagnosis: Coronary artery disease[ICD10: I25.10] Diagnosis: Aortic valve stenosis with insufficiency[ICD10: I35.2] Ericka Sanchezpromise MCCORMICK [facility] CPT-4: 50207 09/10/2019 Plan of Care Planned Activity Notes [...] : F43.0 11/10/2020 Appointment: Ericka Mccormick WPtel: [address] [place], [place] [id number] FOLLOW UP 11/10/2020 Patient Education: trazodone- [employer] Coupon [phone] [email or web address] Completed 11/10/2020 Visit Diagnosis Plan: Mass of upper lobe of right lung Discussion: CT scan of lung results discussed with patient and told this looks like cancer Agrees to see pulmonology to see if will be amenable to bronchoscopy to get cells/washings ICD-9 : 786.6 ICD-10 : R91.8 07/29/2020 Appointment: [facility] [phone] [id number] [facility] 07/29/2020 Care Plan: Referral Order SNOMED-CT : [id number] Pending 07/29/2020 Care Plan: CT SFT TSUE NCK W/O & W/DYE L OIIN : 55319-0 Pending 07/21/2020 Visit Diagnosis Plan: Fatigue Discussion: [...] 07/20/2020 [facility]ment[facility] [phone] [id number] [facility] 07/20/2020 Patient Education: Patient [...] : N39.0 04/30/2020 Appointment: Meena Li [address] [place], [place] [phone] ACUTE ILLNESS 04/30/2020 Appointment: Meena Li [address] [place], [place] [phone] 04/21/2020 1020---patient needed seen fo r [...] : F32.9 04/09/2020 Appointment: Ericka Mccormick WPtel: [address] [place] [address] [place] FOLLOW UP 04/09/2020 Care Plan: COMPREHEN [place]AB[place] : 47544-6 Pending 04/09/2020 Appointment: Ericka Mccormick WPtel: [address] [place] [address] US LAB 04/07/2020 Visit Diagnosis Plan: Fatigue Discussion: no other sym ptoms other than fatigue for 4 weeks so will update labs. order sent to [facility] for blood work and ua with c&s. instructed to call office with new or worsening symptoms. ICD-9 : 780.79 ICD-10 : R53.83 11/22/2019 Appointment: Meena Li [address] [place], [place] [address] [address] TELEMEDICINE 11/22/2019 Appointment: Ericka Mccormick WPtel: [address] [place] [address] US LAB 09/30/2019 Visit Diagnosis Plan: Coronary [...] : I10 09/10/2019 Appointment: Ericka Mccormick WPtel: [address] [place], [place] [phone] [place] NEW PATIENT 09/10/2019 Patient Education: carvedilol- [employer] Elvin [phone] [email or web address] Completed 09/10/2019 Appointment: Ericka Mccormick WPtel: [phone] [facility] US RESCHEDULED 08/20/2019 Appointment: Ericka Mccormick WPtel: [address] [place], [place] [phone] [place] CANCELED 07/22/2019 Referral: Vikram Maguire WPtel: [phone] [facility] [address] [id number] [place] Referral Appointment Requested Instructions No Instructions Medical Equipment No Medical Equipment data Health Concerns Section Health Concerns data not found Goals Section Goals data not found Interventions Section Interventions data not found Health Status Evaluations/Outcomes Section Health Status Evaluations/Outcomes data not found Advance Directives No Advance Directive data
--- OUTSIDE RECORDS SUMMARY | 2021-02-15 18:54 | XMS REPORT | CCD ---
Author Author Erica Mccormick D.O. Organization [facility] Address [address] [place] [address] Phone Care Team Providers Care Assistant Chief Train Dispatcher Name Role Phone PP Unavailable CCM Unavailable Summary Purpose Interface Exchange Insurance Providers Payer name Policy type / Coverage type Covered democrat ID Effective Begin Date Effective End Date WPS MEDICARE PART B [place] Medicare Part B [id number] Unknown Unknown BLUE [place] MEDIC[place] Medicare Part B X [id number] Unknown Unknown Family History Family History data not found Social History Social History Element Codes Description Effective Dates Marital status Unknown 09/10/2019 Number of children Unknown 1 09/10/2019 Employment Unknown Retired 09/10/[address]: 4185427 Former smoker quit 201109/10/[address]: 807230 Currently drinks alcohol 09/09 Frequency of drinks SNOMED CT: 432480112 1-4 drinks per week Allergies, Adverse Reactions, [...] Fill Instructions paroxetine 20 mg tablet RxNorm: 6007541 1 Tablet(s) Oral QD 01/20/2021 Inactive pantoprazole 20 mg tablet,delayed release RxNorm: 586470 1 Tablet(s) Oral two times a day 12/22/2020 03/21/2021 Active pantoprazole 20 mg tablet,delayed release RxNorm: 437014 1 Tablet(s) Oral two times a day 12/22/2020 12/22/2020 Inactive paroxetine 20 mg tablet RxNorm: 2815357 1 Tablet(s) Oral QD 021 12/15/2020 Inactive paroxetine 20 mg tablet RxNorm: 1412056 1 Tablet(s) Oral QD 021 12/15/2020 Inactive MagOx 400 mg (241.3 mg magnesium) tablet RxNorm: 960230 Take 1 Tablet(s) Oral every night at bedtime with melatonin 11/23/2020 01/24/2021 Inactive melatonin 3 mg tablet RxNorm: 154543 Take 1-2 Tablet(s) Oral every night at bedtime 11/18/2020 No Stop Date Active atorvastatin 40 mg tablet RxNorm: 493851 Take 1 Tablet( s) Oral every night at bedtime 11/10/2020 No Stop Date Active Plavix 75 mg tablet RxNorm: 431345 Take 1 Tablet(s) Oral QD No Stop Date Active trazodone 50 mg tablet RxNorm: 463543 Take 1-2 Tablet(s ) Oral QPM as needed for sleep 11/10/2020 11/22/2020 Inactive alprazolam 0.25 mg tablet RxNorm: 647516 1/2-1 Tablet(s ) Oral QPM as needed for sleep 08/03/2020 09/01/2020 Inactive alprazolam 0.25 mg tablet RxNorm: 301801 1/2-1 Tablet(s ) Oral QPM as needed for sleep 08/03/2020 08/02/2020 Inactive Aspirin Low Dose 81 mg tablet,delayed release RxNorm: 098566 1 Tablet(s) Oral QD 09/10/2019 No Stop Date Active losartan 25 mg tablet RxNorm: 547942 1 Tablet(s) Oral QD 09/10/2019 No Stop Date Active carvedilol 6.25 mg tablet RxNorm: 806876 1 Tablet(s) Oral two t imes a day 09/10/2019 11/09/2020 Inactive Fish Oil 1,000 mg (120 mg-180 mg) capsule RxNorm: 1 Caps ule(s) Oral QD 09/10/2019 11/25/2019 Inactive Medication Administered No Medication Administered data Immunizations No Immunization data Results Observation Observation Code Item Item Code Result Date S ervice Location COMPLETE BLOOD COUNT [id number] WBC 6.1 10e9/L 01/26/20 21 Unknown COMPLETE BLOOD COUNT [id number] RBC 3.34 10e12/L 2020 Unknown COMPLETE BLOOD COUNT [id number] HEMOGLOBIN 8.8 g/dL 01/26/20 21 Unknown COMPLETE BLOOD COUNT [id number] HEMATOCRIT 28.5 % 01/26/20 21 Unknown COMPLETE BLOOD COUNT [id number] MCV 85.3 fL 1 Unknown COMPLETE BLOOD COUNT [id number] MCH 26.3 pg 1 Unknown COMPLETE BLOOD COUNT 9449842 MCHC 30.9 g/dL 1 Unknown COMPLETE BLOOD COUNT [id number] PLATELET COUNT 268 10e9/L 07/2020 Unknown COMPLETE BLOOD COUNT [id number] Mean Plt Volume 8.7 fL 07/2020 Unknown COMPLETE BLOOD COUNT 1503163 Neut Auto 67.7 % 1 Unknown COMPLETE BLOOD COUNT [id number] Lymph Auto 19.4 % 01/26/20 21 Unknown COMPLETE BLOOD COUNT [id number] [place] Auto 8.4 % 1 Unknown COMPLETE BLOOD COUNT [id number] RDW 16.7 % 1 Unknown COMPLETE BLOOD COUNT 6345509 Eos Auto 3.8 % 1 Unknown COMPLETE BLOOD COUNT 9108473 Baso Auto 0.7 % 1 Unknown COMPLETE BLOOD COUNT [id number] Neutrophil Abs 4.13 10e9/L Unknown COMPLETE BLOOD COUNT [id number] Lymphocyte Abs 1.18 10e9/L Unknown COMPLETE BLOOD COUNT [id number] Monocyte Abs 0.51 10e9/L 07/2020 Unknown COMPLETE BLOOD COUNT [id number] Eosinophil Abs 0.23 10e9/L Unknown COMPLETE BLOOD COUNT [id number] RDW-SD 50.9 fL 1 Unknown COMPLETE BLOOD COUNT [id number] Basophil Abs 0.04 10e9/L 07/2020 Unknown COMPREHENSIVE METABOLIC 16712 AST 16 U/L 2019 Unknown COMPREHENSIVE METABOLIC 31599 ALT 12 U/L 2019 Unknown COMPREHENSIVE METABOLIC 66190 BUN 13 mg/dL 2019 Unknown COMPREHENSIVE METABOLIC 49697 ALBUMIN 4.1 g/dL 2019 Unknown COMPREHENSIVE METABOLIC 33376 CHLORIDE 96 mmol/L 2019 Unknown COMPREHENSIVE METABOLIC 64395 Bili Total 1.1 mg/dL 04/09 Unknown COMPREHENSIVE METABOLIC 17531 ALK PHOS 80 U/L 2019 Unknown COMPREHENSIVE METABOLIC 70726 SODIUM 131 mmol/L 04/09 Unknown COMPREHENSIVE METABOLIC 50294 CREATININE 0.76 mg/dL 03/24 Unknown COMPREHENSIVE METABOLIC 48296 CALCIUM 9.0 mg/dL 2019 Unknown COMPREHENSIVE METABOLIC 53729 POTASSIUM 4.2 mmol/L 04/09 Unknown COMPREHENSIVE METABOLIC 88247 Total Protein 6.8 g/dL Unknown COMPREHENSIVE METABOLIC 02838 Glucose 101 mg/dL 2019 Unknown COMPREHENSIVE METABOLIC 53304 Bicarbonate 25 mmol/L 03/24 Unknown COMPREHENSIVE METABOLIC 14280 AGAP 10 mmol/L 2019 Unknown GFR CALC 0199447 GFR Non Afr Amr >60 mL/min 04/09/2020 Un known GFR CALC [id number] GFR Afr Amr >60 mL/min 04/09/2020 Unknow n GAMMA GLUTAMYL TRANSFERASE 79099 GGT 19 U/L Unknown COMPLETE BLOOD COUNT [id number] WBC 6.3 10e9/L 04/07/20 20 Unknown COMPLETE BLOOD COUNT [id number] RBC 4.36 10e12/L 2019 Unknown COMPLETE BLOOD COUNT 7585559 HEMOGLOBIN 15.2 g/dL 04/07/20 20 Unknown COMPLETE BLOOD COUNT [id number] HEMATOCRIT 43.8 % 04/07/20 20 Unknown COMPLETE BLOOD COUNT [id number] MCV 100.5 fL 0 Unknown COMPLETE BLOOD COUNT [id number] MCH 34.9 pg 0 Unknown COMPLETE BLOOD COUNT 6502531 MCHC 34.7 g/dL 0 Unknown COMPLETE BLOOD COUNT 9174037 PLATELET COUNT 254 10e9/L Unknown COMPLETE BLOOD COUNT 4961300 Mean Plt Volume 9.9 fL Unknown COMPLETE BLOOD COUNT 4017993 Neut Auto 63.3 % 0 Unknown COMPLETE BLOOD COUNT 8560216 Lymph Auto 24.5 % 04/07/20 20 Unknown COMPLETE BLOOD COUNT 7436004 [place] Auto 8.4 % 0 Unknown COMPLETE BLOOD COUNT 3511086 RDW 12.8 % 0 Unknown COMPLETE BLOOD COUNT 5357917 Eos Auto 3.2 % 0 Unknown COMPLETE BLOOD COUNT 1675560 Baso Auto 0.6 % 0 Unknown COMPLETE BLOOD COUNT 1323162 Neutrophil Abs 3.99 10e9/L Unknown COMPLETE BLOOD COUNT 5855145 Lymphocyte Abs 1.54 10e9/L Unknown COMPLETE BLOOD COUNT 4846756 Monocyte Abs 0.53 10e9/L 03/24 Unknown COMPLETE BLOOD COUNT 9319958 Eosinophil Abs 0.20 10e9/L Unknown COMPLETE BLOOD COUNT 2477234 RDW-SD 47.6 fL 0 Unknown COMPLETE BLOOD COUNT 7518239 Basophil Abs 0.04 10e9/L 03/24 Unknown VITAMIN B 12 29802 VITAMIN B12 661 pg/mL 04/07/2020 Unkn own LIPID GROUP 85303 Cholesterol 168 mg/dL 09/30/2019 Unkno wn LIPID GROUP 94517 Triglyceride 141 mg/dL 09/30/2019 Unkn own LIPID GROUP 00098 HDL CHOLESTEROL 66 mg/dL 09/30/2019 U nknown LIPID GROUP 77243 Chol/HDL Ratio 2.55 ratio 09/30/2019 U nknown LIPID GROUP 83666 NON-HDL Chol 102 mg/dL 09/30/2019 Unkn own LIPID GROUP 85314 LDL Cholesterol 74 mg/dL 09/30/2019 U nknown FREE T4 80450 T4 Free 0.76 ng/dL 09/30/2019 Unknown THYROID STIMULATING HORMONE 46639 TSH 2.186 uIU/mL 09/30/2019 Unknown GFR CALC 3369051 GFR Non Afr Amr >60 mL/min 09/30/2019 Un known GFR CALC 5885841 GFR Afr Amr >60 mL/min 09/30/2019 Unknow n COMPREHENSIVE METABOLIC 07595 AST 14 U/L 2019 Unknown COMPREHENSIVE METABOLIC 14303 ALT 11 U/L 2019 Unknown COMPREHENSIVE METABOLIC 37744 BUN 15 mg/dL 2019 Unknown COMPREHENSIVE METABOLIC 10844 ALBUMIN 4.0 g/dL 2019 Unknown COMPREHENSIVE METABOLIC 27522 CHLORIDE 96 mmol/L 2019 Unknown COMPREHENSIVE METABOLIC 81328 Bili Total 0.9 mg/dL 09/29 Unknown COMPREHENSIVE METABOLIC 43411 ALK PHOS 72 U/L 2019 Unknown COMPREHENSIVE METABOLIC 44969 SODIUM 132 mmol/L 09/29 Unknown COMPREHENSIVE METABOLIC 43507 CREATININE 0.73 mg/dL 11/2019 Unknown COMPREHENSIVE METABOLIC 05375 CALCIUM 9.1 mg/dL 2019 Unknown COMPREHENSIVE METABOLIC 28812 POTASSIUM 4.6 mmol/L 09/29 Unknown COMPREHENSIVE METABOLIC 23703 Total Protein 6.4 g/dL Unknown COMPREHENSIVE METABOLIC 66611 Glucose 97 mg/dL 2019 Unknown COMPREHENSIVE METABOLIC 29481 Bicarbonate 25 mmol/L 11/2019 Unknown COMPREHENSIVE METABOLIC 10850 AGAP 11 mmol/L 2019 Unknown COMPLETE BLOOD COUNT 5680587 WBC 5.3 10e9/L 09/30/19 20 Unknown COMPLETE BLOOD COUNT 7264706 RBC 4.16 10e12/L 2019 Unknown COMPLETE BLOOD COUNT 1736875 HEMOGLOBIN 14.1 g/dL 09/30/19 20 Unknown COMPLETE BLOOD COUNT 7718883 HEMATOCRIT 42.6 % 09/30/19 20 Unknown COMPLETE BLOOD COUNT 2002082 MCV 102.4 fL 0 Unknown COMPLETE BLOOD COUNT 3134879 MCH 33.9 pg 0 Unknown COMPLETE BLOOD COUNT 3481750 MCHC 33.1 g/dL 0 Unknown COMPLETE BLOOD COUNT 4179894 PLATELET COUNT 273 10e9/L 11/2019 Unknown COMPLETE BLOOD COUNT 7157530 Mean Plt Volume 9.4 fL 11/2019 Unknown COMPLETE BLOOD COUNT 3116232 Neut Auto 57.3 % 0 Unknown COMPLETE BLOOD COUNT 2656628 Lymph Auto 29.3 % 09/30/19 20 Unknown COMPLETE BLOOD COUNT 5244015 [place] Auto 7.6 % 0 Unknown COMPLETE BLOOD COUNT 3523470 RDW 13.8 % 0 Unknown COMPLETE BLOOD COUNT 6719864 Eos Auto 4.5 % 0 Unknown COMPLETE BLOOD COUNT 5020757 Baso Auto 1.3 % 0 Unknown COMPLETE BLOOD COUNT 6437734 Neutrophil Abs 3.04 10e9/L Unknown COMPLETE BLOOD COUNT 2667388 Lymphocyte Abs 1.55 10e9/L Unknown COMPLETE BLOOD COUNT 4187027 Monocyte Abs 0.40 10e9/L 11/2019 Unknown COMPLETE BLOOD COUNT 4069339 Eosinophil Abs 0.24 10e9/L Unknown COMPLETE BLOOD COUNT 4473766 RDW-SD 50.7 fL 0 Unknown COMPLETE BLOOD COUNT 1959379 Basophil Abs 0.07 10e9/L 11/2019 Unknown Procedures Procedure Codes Date ROUTINE VENIPUNCTURE CPT-4: 70401 01/25/2021 COMPREHEN METABOLIC PANEL CPT-4: 19957 01/25/2021 COMPLETE CBC W/AUTO DIFF WBC CPT-4: 67605 01/25/2021 URINE CULTURE/ COLONY COUNT CPT-4: 46905 01/25/2021 URINALYSIS NONAUTO W/O SCOPE CPT-4: 66817 01/25/2021 ROUTINE VENIPUNCTURE CPT-4: 38703 07/20/2020 COMPREHEN METABOLIC PANEL CPT-4: 11320 07/20/2020 ASSAY OF FREE THYROXINE CPT-4: 23164 07/20/2020 ASSAY THYROID STIM HORMONE CPT-4: 13568 07/20/2020 COMPLETE CBC W/AUTO DIFF WBC CPT-4: 60392 07/20/2020 RBC SED RATE AUTOMATED CPT-4: 60920 07/20/2020 URINALYSIS NONAUTO W/O SCOPE CPT-4: 08280 04/30/2020 URINE CULTURE/ COLONY COUNT CPT-4: 22390 04/30/2020 ROUTINE VENIPUNCTURE CPT-4: 95835 04/07/2020 COMPLETE CBC W/AUTO DIFF WBC CPT-4: 41015 04/07/2020 VITAMIN B-12 CPT-4: 56869 04/07/2020 ASSAY OF GGT CPT-4: 32017 04/07/2020 ROUTINE VENIPUNCTURE CPT-4: 36476 09/30/2019 ASSAY OF FREE THYROXINE CPT-4: 27407 09/30/2019 ASSAY THYROID STIM HORMONE CPT-4: 06130 09/30/2019 COMPREHEN METABOLIC PANEL CPT-4: 75793 09/30/2019 COMPLETE CBC W/AUTO DIFF WBC CPT-4: 51005 09/30/2019 LIPID PANEL CPT-4: 23265 09/30/2019 Vital Signs Date Vital 01/25/2021 Blood Pressure 1: 102/68 Code: 8480-6 Heart Rate 1: 76 bpm Respiratory Rate: 20 bpm SpO2: 100% Temperature: 36.9 (C) / 98.5 (F) We ight: 87 lbs Code: 12223-2 12/30/2020 Blood Pressure 1: 134/80 Code: 8480-6 BMI: 14.1 Code: 97165-6 Heart Rate 1: 72 bpm Height: 5'5" Code: 8302-2 Respiratory Rate: 18 bpm SpO2: 97% Temperature: 36.6 (C) / 97.8 (F) Weight: 85 lbs Code: 37331-3 11/10/2020 Blood Pressure 1: 130/74 Code: 8480-6 Heart Rate 1: 56 bpm Respiratory Rate: 20 bpm SpO2: 98% Temperature: 36.3 (C) / 97.4 (F) We ight: 85 lbs Code: 53428-1 07/29/2020 Blood Pressure 1: 121/65 Code: 8480-6 BMI: 14.3 Code: 94558-0 Heart Rate 1: 58 bpm Height: 5'5" Code: 8302-2 Respiratory Rate: 15 bpm SpO2: 98% Temperature: 36.9 (C) / 98.4 (F) Weight: 86 lbs Code: 35510-8 07/20/2020 Blood Pressure 1: 123/69 Code: 8480-6 Heart Rate 1: 68 bpm Respiratory Rate: 15 bpm SpO2: 99% Temperature: 36.6 (C) / 97.8 (F) We ight: 83 lbs Code: 92618-1 04/30/2020 Blood Pressure 1: 128/82 Code: 8480-6 Heart Rate 1: 68 bpm Respiratory Rate: 20 bpm SpO2: 95% Temperature: 36.5 (C) / 97.7 (F) We ight: 91 lbs Code: 34791-3 04/09/2020 Blood Pressure 1: 130/78 Code: 8480-6 Heart Rate 1: 68 bpm Respiratory Rate: 20 bpm SpO2: 99% Temperature: 36.3 (C) / 97.4 (F) We ight: 90 lbs Code: 20598-1 11/22/2019 Temperature: 36.3 (C) / 97.3 (F) 09/10/2019 Blood Pressure 1: 128/72 Code: 8480-6 BMI: 15.6 Code: 85073-2 Heart Rate 1: 68 bpm Height: 5'5" Code: 8302-2 Respiratory Rate: 20 bpm SpO2: 97% Temperature: 36.6 (C) / 97.9 (F) Weight: 94 lbs Code: 35876-9 Functional Status No Functional Status data Reason [...] visit Encounters Encounter Performer Location Codes Date ([id number]) OFFICE/OUTPATIENT VISIT EST Diagnosis: Fatigue[ICD10: R53.83] Diagnosis: Blood loss anemia[ICD10: D50.0] Diagnosis: Coronary artery disease[ICD10: I25.10] Diagnosis: Hematuria[ICD10: R31.9] Robson [facility]EL [facility] CPT-4: 34607 01/25/2021 ([id number]) OFFICE/OUTPATIENT VISIT EST Diagnosis: GERD (gastroesophageal reflux disease)[ICD10: K21.9] Diagnosis: Duodenal ulcer[ICD10: K26.9] Diagnosis: Coronary artery disease[ICD10: I25.10] Diagnosis: Anxiety[ICD10: F41.9] Diagnosis: Blood loss anemia[ICD10: D50.0] Robson MCCORMICK [facility] CPT-4: 90491 12/30/2020 ([id number]) NURSE/OUTPATIENT VISIT EST Diagnosis: Edema[ICD10: R60.9] Robson MCCORMICK DO [facility] CPT-4: 04295 12/21/2020 ([id number]) OFFICE/OUTPATIENT VISIT EST Diagnosis: Coronary artery disease[ICD10: I25.10] Diagnosis: Essential (primary) hypertension[ICD10: I10] Diagnosis: Stress reaction[ICD10: F43.0] Diagnosis: Insomnia[ICD10: G47.00] Diagnosis: Pulmonary nodule[ICD10: R91.1] Robson MCCORMICK [facility] CPT-4: 56426 11/10/2020 ([id number]) NO CHARGE Diagnosis: Mass of upper lobe of right lung[ICD10: R91.8] Robson MCCORMICK [facility] CPT-4: 83721 07/29/2020 ([id number]) OFFICE/OUTPATIENT VISIT EST Diagnosis: Fatigue[ICD10: R53.83] Diagnosis: Lymphadenopathy of head and neck[ICD10: R59.1] Diagnosis: Weight loss, non-intentional[ICD10: R63.4] Diagnosis: History of melanoma[ICD10: Z85.820] Diagnosis: Skin lesion[ICD10: L98.9] Sara Mingo [facility]ON [facility]UNE[facility] CPT-4: 95229 07/20/2020 ([id number]) OFFICE/OUTPATIENT VISIT EST Diagnosis: Urinary tract infection[ICD10: N39.0] Meena MCCORMICK [facility] CPT-4: 71640 04/30/2020 ([id number]) OFFICE/OUTPATIENT VISIT EST Diagnosis: Dizziness[ICD10: R42] Diagnosis: Depressed mood with feeling of loneliness[ICD10: F32.9] Diagnosis: Insomnia[ICD10: G47.00] Robson [facility] CPT-4: 25472 04/09/2020 ([id number]) NURSE/OUTPATIENT VISIT EST Diagnosis: Coronary artery disease[ICD10: I25.10] Diagnosis: Fatigue[ICD10: R53.83] Diagnosis: Essential (primary) hypertension[ICD10: I10] Robson MCCORMICK [facility] CPT-4: 68037 04/07/2020 ([id number]) OFFICE/OUTPATIENT VISIT EST Diagnosis: Fatigue[ICD10: R53.83] Meena Li [facility] CPT-4: 01768 11/22/2019 ([id number]) NURSE/OUTPATIENT VISIT EST Diagnosis: Essential (primary) hypertension[ICD10: I10] Diagnosis: Coronary artery disease[ICD10: I25.10] Diagnosis: Encounter for general adult medical examination with abnormal findings[ICD10: Z00.01] Robson MCCORMICK [facility] CPT-4: 41457 09/30/2019 ([id number]) OFFICE/OUTPATIENT VISIT NEW Diagnosis: Essential (primary) hypertension[ICD10: I10] Diagnosis: Coronary artery disease[ICD10: I25.10] Diagnosis: Aortic valve stenosis with insufficiency[ICD10: I35.2] Robson [facility] [employer] CPT-4: 35272 09/10/2019 Plan of Care Planned Activity Notes Codes Status Date Visit Diagnosis Plan: Hematuria Discussion: Culture ur ine ICD-9 : 599.70 ICD-10 : R31.9 01/25/2021 Visit Diagnosis Plan: Blood loss anemia Discussion: Ch real CBC now ICD-9 : 280.0 ICD-10 : D50.0 01/25/2021 Appointment: [facility]ila [facility] [phone] [id number] [facility] 01/01/2021 Visit Diagnosis Plan: Anxiety Discussion: [...] ICD-10 : K21.9 12/30/2020 Appointment: Robson Mccormicktel: [address] [place], [place] [phone] [place] FOLLOW UP 12/30/2020 Appointment: Robson Mccormick WPtel: [address] [place], [place] [phone] NURSE SERVICES 12/21/2020 Visit Diagnosis Plan: Insomnia [...] ICD-10 : F43.0 11/10/2020 Appointment: Robson Mccormicktel: [address] [place], [place] [phone] [place] FOLLOW UP 11/10/2020 Patient Education: trazodone- [employer] Coupon [phone] [email or web address]/[email or web address] Completed 11/10/2020 Visit Diagnosis Plan: Mass of upper lobe of right lung Discussion: CT scan of lung results discussed with patient and told this looks like cancer Agrees to see pulmonology to see if will be amenable to bronchoscopy to get cells/washings ICD-9 : 786.6 ICD-10 : R91.8 07/29/2020 Appointment: Robson Mccormick WPtel: [address] [place], [place] [phone] [place] WORK IN 07/29/2020 Care Plan: Referral Order SNOMED-CT : 30 [id number] Pending 07/29/2020 Care Plan: CT SFT TSUE NCK W/O & W/DYE L OIMT : 16743-4 Pending 07/21/2020 Visit Diagnosis Plan: Fatigue Discussion: [...] 07/20/2020 Appointment: Mingo Sara WPtel: [phone] ACUTE ILLNESS 07/20/2020 Patient Education: Patient [...] ICD-10 : N39.0 04/30/2020 Appointment: Meena Li [address] [place], [place] [id number] ACUTE ILLNESS 04/30/2020 Appointment: Meena Li [address] [place], [place] [id number] 04/21/2020 1020---patient needed seen [...] : F32.9 04/09/2020 Appointment: Robson Mccormick WPtel: [address] [place] [address] [place] FOLLOW UP 04/09/2020 Care Plan: COMPREHEN METABOLIC PAN[place] : 04984-9 Pending 04/09/2020 Appointment: Robson Mccormick WPtel: [address] [place] [address] US LAB 04/07/2020 Visit Diagnosis Plan: Fatigue Discussion: no other sym ptoms other than fatigue for 4 weeks so will update labs. order sent to [facility] for blood work and ua with c&s. instructed to call office with new or worsening symptoms. ICD-9 : 780.79 ICD-10 : R53.83 11/22/2019 Appointment: Meena Li [address] [place] [address] [place] TELEMEDICINE 11/22/2019 Appointment: Robson Mccormick WPtel: [address] [place] [address] US LAB 09/30/2019 Visit Diagnosis Plan: Coronary [...] : I10 09/10/2019 Appointment: Robson Mccormick WPtel: [address] [place], [place] [phone] [place] NEW PATIENT 09/10/2019 Patient Education: carvedilol- [employer] Elvin [phone] [email or web address] Completed 09/10/2019 Appointment: Robson Mccormick WPtel: [address] [place], [place] [phone] [place] RESCHEDULED 08/20/2019 Appointment: Robson Mccormick WPtel: [address] [place], [place] [phone] [place] CANCELED 07/22/2019 Referral: Vikram Maguire WPtel: [phone] [id number] [place] Referral Appointment Requested Instructions No Instructions Medical Equipment No Medical Equipment data Health Concerns Section Health Concerns data not found Goals Section Goals data not found Interventions Section Interventions data not found Health Status Evaluations/Outcomes Section Health Status Evaluations/Outcomes data not found Advance Directives No Advance Directive data
--- OUTSIDE RECORDS SUMMARY | 2021-02-15 18:54 | XMS REPORT | CCD ---
Author Author Erica Mccormick D.O. Organization ERICKA MCCORMICK DO [facility] Address [address] [place] [address] Phone Care Team Providers Care Tracer Clerk Name Role Phone PP Unavailable CCM Unavailable Summary Purpose Interface Exchange Insurance Providers Payer name Policy type / Coverage type Covered democrat ID Effective Begin Date Effective End Date WPS MEDICARE PART B [place] Medicare Part B [id number] Unknown Unknown BLUE [employer] [place] MEDICARE [place] Medicare Part B X [id number] Unknown Unknown Family History Family History data not found Social History Social History Element Codes Description Effective Dates Marital status Unknown 09/10/2019 Number of children Unknown 1 09/10/2019 Employment Unknown Retired 09/10/[address]: 8571778 Former smoker quit 201109/10/[address]: 312265 Currently drinks alcohol 09/09 Frequency of drinks SNOMED CT: 359941403 1-4 drinks per week Allergies, Adverse Reactions, [...] Fill Instructions paroxetine 20 mg tablet RxNorm: 6648488 1 Tablet(s) Oral QD 01/20/2021 Inactive pantoprazole 20 mg tablet,delayed release RxNorm: 829140 1 Tablet(s) Oral two times a day 12/22/2020 03/21/2021 Active pantoprazole 20 mg tablet,delayed release RxNorm: 030344 1 Tablet(s) Oral two times a day 12/22/2020 12/22/2020 Inactive paroxetine 20 mg tablet RxNorm: 0608377 1 Tablet(s) Oral QD 021 12/15/2020 Inactive paroxetine 20 mg tablet RxNorm: 5407286 1 Tablet(s) Oral QD 021 12/15/2020 Inactive MagOx 400 mg (241.3 mg magnesium) tablet RxNorm: 280797 Take 1 Tablet(s) Oral every night at bedtime with melatonin 11/23/2020 01/24/2021 Inactive melatonin 3 mg tablet RxNorm: 413439 Take 1-2 Tablet(s) Oral every night at bedtime 11/18/2020 No Stop Date Active atorvastatin 40 mg tablet RxNorm: 815228 Take 1 Tablet( s) Oral every night at bedtime 11/10/2020 No Stop Date Active Plavix 75 mg tablet RxNorm: 201923 Take 1 Tablet(s) Oral QD No Stop Date Active trazodone 50 mg tablet RxNorm: 841095 Take 1-2 Tablet(s ) Oral QPM as needed for sleep 11/10/2020 11/22/2020 Inactive alprazolam 0.25 mg tablet RxNorm: 740519 1/2-1 Tablet(s ) Oral QPM as needed for sleep 08/03/2020 09/01/2020 Inactive alprazolam 0.25 mg tablet RxNorm: 322823 1/2-1 Tablet(s ) Oral QPM as needed for sleep 08/03/2020 08/02/2020 Inactive Aspirin Low Dose 81 mg tablet,delayed release RxNorm: 643635 1 Tablet(s) Oral QD 09/10/2019 No Stop Date Active losartan 25 mg tablet RxNorm: 961066 1 Tablet(s) Oral QD 09/10/2019 No Stop Date Active carvedilol 6.25 mg tablet RxNorm: 771175 1 Tablet(s) Oral two t imes a day 09/10/2019 11/09/2020 Inactive Fish Oil 1,000 mg (120 mg-180 mg) capsule RxNorm: 1 Caps ule(s) Oral QD 09/10/2019 11/25/2019 Inactive Medication Administered No Medication Administered data Immunizations No Immunization data Results Observation Observation Code Item Item Code Result Date S ervice Location COMPLETE BLOOD COUNT [id number] WBC 6.1 10e9/L 01/26/20 21 Unknown COMPLETE BLOOD COUNT [id number] RBC 3.34 10e12/L 2020 Unknown COMPLETE BLOOD COUNT [id number] HEMOGLOBIN 8.8 g/dL 01/26/20 21 Unknown COMPLETE BLOOD COUNT [id number] HEMATOCRIT 28.5 % 01/26/20 21 Unknown COMPLETE BLOOD COUNT [id number] MCV 85.3 fL 1 Unknown COMPLETE BLOOD COUNT [id number] MCH 26.3 pg 1 Unknown COMPLETE BLOOD COUNT [id number] MCHC 30.9 g/dL 1 Unknown COMPLETE BLOOD COUNT [id number] PLATELET COUNT 268 10e9/L 07/2020 Unknown COMPLETE BLOOD COUNT 0772148 Mean Plt Volume 8.7 fL 07/2020 Unknown COMPLETE BLOOD COUNT [id number] Neut Auto 67.7 % 1 Unknown COMPLETE BLOOD COUNT [id number] Lymph Auto 19.4 % 01/26/20 21 Unknown COMPLETE BLOOD COUNT [id number] [place] Auto 8.4 % 1 Unknown COMPLETE BLOOD COUNT [id number] RDW 16.7 % 1 Unknown COMPLETE BLOOD COUNT [id number] Eos Auto 3.8 % 1 Unknown COMPLETE BLOOD COUNT 6130278 Baso Auto 0.7 % 1 Unknown COMPLETE BLOOD COUNT [id number] Neutrophil Abs 4.13 10e9/L Unknown COMPLETE BLOOD COUNT 9349776 Lymphocyte Abs 1.18 10e9/L Unknown COMPLETE BLOOD COUNT [id number] Monocyte Abs 0.51 10e9/L 07/2020 Unknown COMPLETE BLOOD COUNT [id number] Eosinophil Abs 0.23 10e9/L Unknown COMPLETE BLOOD COUNT [id number] RDW-SD 50.9 fL 1 Unknown COMPLETE BLOOD COUNT 0125112 Basophil Abs 0.04 10e9/L 07/2020 Unknown COMPREHENSIVE METABOLIC 77317 AST 16 U/L 2019 Unknown COMPREHENSIVE METABOLIC 55836 ALT 12 U/L 2019 Unknown COMPREHENSIVE METABOLIC 74875 BUN 13 mg/dL 2019 Unknown COMPREHENSIVE METABOLIC 56367 ALBUMIN 4.1 g/dL 2019 Unknown COMPREHENSIVE METABOLIC 57743 CHLORIDE 96 mmol/L 2019 Unknown COMPREHENSIVE METABOLIC 03529 Bili Total 1.1 mg/dL 04/09 Unknown COMPREHENSIVE METABOLIC 49099 ALK PHOS 80 U/L 2019 Unknown COMPREHENSIVE METABOLIC 27238 SODIUM 131 mmol/L 04/09 Unknown COMPREHENSIVE METABOLIC 24335 CREATININE 0.76 mg/dL 03/24 Unknown COMPREHENSIVE METABOLIC 63592 CALCIUM 9.0 mg/dL 2019 Unknown COMPREHENSIVE METABOLIC 03854 POTASSIUM 4.2 mmol/L 04/09 Unknown COMPREHENSIVE METABOLIC 38230 Total Protein 6.8 g/dL Unknown COMPREHENSIVE METABOLIC 45434 Glucose 101 mg/dL 2019 Unknown COMPREHENSIVE METABOLIC 78924 Bicarbonate 25 mmol/L 03/24 Unknown COMPREHENSIVE METABOLIC 13137 AGAP 10 mmol/L 2019 Unknown GFR CALC 7661159 GFR Non Afr Amr >60 mL/min 04/09/2020 Un known GFR CALC [id number] GFR Afr Amr >60 mL/min 04/09/2020 Unknow n GAMMA GLUTAMYL TRANSFERASE 69904 GGT 19 U/L Unknown COMPLETE BLOOD COUNT [id number] WBC 6.3 10e9/L 04/07/20 20 Unknown COMPLETE BLOOD COUNT [id number] RBC 4.36 10e12/L 2019 Unknown COMPLETE BLOOD COUNT 0734060 HEMOGLOBIN 15.2 g/dL 04/07/20 20 Unknown COMPLETE BLOOD COUNT [id number] HEMATOCRIT 43.8 % 04/07/20 20 Unknown COMPLETE BLOOD COUNT [id number] MCV 100.5 fL 0 Unknown COMPLETE BLOOD COUNT 4811201 MCH 34.9 pg 0 Unknown COMPLETE BLOOD COUNT 2740175 MCHC 34.7 g/dL 0 Unknown COMPLETE BLOOD COUNT 0750315 PLATELET COUNT 254 10e9/L Unknown COMPLETE BLOOD COUNT 4120437 Mean Plt Volume 9.9 fL Unknown COMPLETE BLOOD COUNT 9347299 Neut Auto 63.3 % 0 Unknown COMPLETE BLOOD COUNT 1098838 Lymph Auto 24.5 % 04/07/20 20 Unknown COMPLETE BLOOD COUNT 4711716 [place] Auto 8.4 % 0 Unknown COMPLETE BLOOD COUNT 8370871 RDW 12.8 % 0 Unknown COMPLETE BLOOD COUNT 8005956 Eos Auto 3.2 % 0 Unknown COMPLETE BLOOD COUNT 3982492 Baso Auto 0.6 % 0 Unknown COMPLETE BLOOD COUNT 7922100 Neutrophil Abs 3.99 10e9/L Unknown COMPLETE BLOOD COUNT 1977870 Lymphocyte Abs 1.54 10e9/L Unknown COMPLETE BLOOD COUNT 6290292 Monocyte Abs 0.53 10e9/L 03/24 Unknown COMPLETE BLOOD COUNT 4151881 Eosinophil Abs 0.20 10e9/L Unknown COMPLETE BLOOD COUNT 5403591 RDW-SD 47.6 fL 0 Unknown COMPLETE BLOOD COUNT [id number] Basophil Abs 0.04 10e9/L 03/24 Unknown VITAMIN B 12 93724 VITAMIN B12 661 pg/mL 04/07/2020 Unkn own LIPID GROUP 18056 Cholesterol 168 mg/dL 09/30/2019 Unkno wn LIPID GROUP 60927 Triglyceride 141 mg/dL 09/30/2019 Unkn own LIP[facility] GROUP 99929 HDL CHOLESTEROL 66 mg/dL 09/30/2019 U nknown LIPID GROUP 99267 Chol/HDL Ratio 2.55 ratio 09/30/2019 U nknown LIPID GROUP 01887 NON-HDL Chol 102 mg/dL 09/30/2019 Unkn own LIPID GROUP 64308 LDL Cholesterol 74 mg/dL 09/30/2019 U nknown FREE T4 59340 T4 Free 0.76 ng/dL 09/30/2019 Unknown THYROID STIMULATING HORMONE 39406 TSH 2.186 uIU/mL 09/30/2019 Unknown GFR CALC 1487182 GFR Non Afr Amr >60 mL/min 09/30/2019 Un known GFR CALC 0514789 GFR Afr Amr >60 mL/min 09/30/2019 Unknow n COMPREHENSIVE METABOLIC 32084 AST 14 U/L 2019 Unknown COMPREHENSIVE METABOLIC 92513 ALT 11 U/L 2019 Unknown COMPREHENSIVE METABOLIC 34212 BUN 15 mg/dL 2019 Unknown COMPREHENSIVE METABOLIC 93599 ALBUMIN 4.0 g/dL 2019 Unknown COMPREHENSIVE METABOLIC 17289 CHLORIDE 96 mmol/L 2019 Unknown COMPREHENSIVE METABOLIC 40496 Bili Total 0.9 mg/dL 09/29 Unknown COMPREHENSIVE METABOLIC 21725 ALK PHOS 72 U/L 2019 Unknown COMPREHENSIVE METABOLIC 74970 SODIUM 132 mmol/L 09/29 Unknown COMPREHENSIVE METABOLIC 63509 CREATININE 0.73 mg/dL 11/2019 Unknown COMPREHENSIVE METABOLIC 09375 CALCIUM 9.1 mg/dL 2019 Unknown COMPREHENSIVE METABOLIC 44240 POTASSIUM 4.6 mmol/L 09/29 Unknown COMPREHENSIVE METABOLIC 20379 Total Protein 6.4 g/dL Unknown COMPREHENSIVE METABOLIC 94352 Glucose 97 mg/dL 2019 Unknown COMPREHENSIVE METABOLIC 09404 Bicarbonate 25 mmol/L 11/2019 Unknown COMPREHENSIVE METABOLIC 27424 AGAP 11 mmol/L 2019 Unknown COMPLETE BLOOD COUNT 5558501 WBC 5.3 10e9/L 09/30/19 20 Unknown COMPLETE BLOOD COUNT 4802600 RBC 4.16 10e12/L 2019 Unknown COMPLETE BLOOD COUNT 2512691 HEMOGLOBIN 14.1 g/dL 09/30/19 20 Unknown COMPLETE BLOOD COUNT 3574827 HEMATOCRIT 42.6 % 09/30/19 20 Unknown COMPLETE BLOOD COUNT 6593902 MCV 102.4 fL 0 Unknown COMPLETE BLOOD COUNT 0155449 MCH 33.9 pg 0 Unknown COMPLETE BLOOD COUNT 1734690 MCHC 33.1 g/dL 0 Unknown COMPLETE BLOOD COUNT 2180298 PLATELET COUNT 273 10e9/L 11/2019 Unknown COMPLETE BLOOD COUNT 1223882 Mean Plt Volume 9.4 fL 11/2019 Unknown COMPLETE BLOOD COUNT 6898095 Neut Auto 57.3 % 0 Unknown COMPLETE BLOOD COUNT 9108032 Lymph Auto 29.3 % 09/30/19 20 Unknown COMPLETE BLOOD COUNT 6870091 [place] Auto 7.6 % 0 Unknown COMPLETE BLOOD COUNT 8195354 Eos Auto 4.5 % 0 Unknown COMPLETE BLOOD COUNT 8045116 RDW 13.8 % 0 Unknown COMPLETE BLOOD COUNT 6366965 Baso Auto 1.3 % 0 Unknown COMPLETE BLOOD COUNT 0506885 Neutrophil Abs 3.04 10e9/L Unknown COMPLETE BLOOD COUNT 9479700 Lymphocyte Abs 1.55 10e9/L Unknown COMPLETE BLOOD COUNT 6073102 Monocyte Abs 0.40 10e9/L 11/2019 Unknown COMPLETE BLOOD COUNT 7158159 Eosinophil Abs 0.24 10e9/L Unknown COMPLETE BLOOD COUNT 7617073 Basophil Abs 0.07 10e9/L 11/2019 Unknown COMPLETE BLOOD COUNT 0075559 RDW-SD 50.7 fL 0 Unknown Procedures Procedure Codes Date ROUTINE VENIPUNCTURE CPT-4: 04900 07/20/2020 COMPREHEN METABOLIC PANEL CPT-4: 40201 07/20/2020 ASSAY OF FREE THYROXINE CPT-4: 30896 07/20/2020 ASSAY THYROID STIM HORMONE CPT-4: 88237 07/20/2020 COMPLETE CBC W/AUTO DIFF WBC CPT-4: 12185 07/20/2020 RBC SED RATE AUTOMATED CPT-4: 46764 07/20/2020 URINALYSIS NONAUTO W/O SCOPE CPT-4: 14251 04/30/2020 URINE CULTURE/ COLONY COUNT CPT-4: 96961 04/30/2020 ROUTINE VENIPUNCTURE CPT-4: 02231 04/07/2020 COMPLETE CBC W/AUTO DIFF WBC CPT-4: 77184 04/07/2020 VITAMIN B-12 CPT-4: 93146 04/07/2020 ASSAY OF GGT CPT-4: 78740 04/07/2020 ROUTINE VENIPUNCTURE CPT-4: 89686 09/30/2019 ASSAY OF FREE THYROXINE CPT-4: 35218 09/30/2019 ASSAY THYROID STIM HORMONE CPT-4: 06747 09/30/2019 COMPREHEN METABOLIC PANEL CPT-4: 16241 09/30/2019 COMPLETE CBC W/AUTO DIFF WBC CPT-4: 36354 09/30/2019 LIPID PANEL CPT-4: 61100 09/30/2019 Vital Signs Date Vital 12/30/2020 Blood Pressure 1: 134/80 Code: 8480-6 BMI: 14.1 Code: 58885-3 Heart Rate 1: 72 bpm Height: 5'5" Code: 8302-2 Respiratory Rate: 18 bpm SpO2: 97% Temperature: 36.6 (C) / 97.8 (F) Weight: 85 lbs Code: 17292-5 11/10/2020 Blood Pressure 1: 130/74 Code: 8480-6 Heart Rate 1: 56 bpm Respiratory Rate: 20 bpm SpO2: 98% Temperature: 36.3 (C) / 97.4 (F) We ight: 85 lbs Code: 70000-2 07/29/2020 Blood Pressure 1: 121/65 Code: 8480-6 BMI: 14.3 Code: 34158-6 Heart Rate 1: 58 bpm Height: 5'5" Code: 8302-2 Respiratory Rate: 15 bpm SpO2: 98% Temperature: 36.9 (C) / 98.4 (F) Weight: 86 lbs Code: 88994-4 07/20/2020 Blood Pressure 1: 123/69 Code: 8480-6 Heart Rate 1: 68 bpm Respiratory Rate: 15 bpm SpO2: 99% Temperature: 36.6 (C) / 97.8 (F) We ight: 83 lbs Code: 80911-7 04/30/2020 Blood Pressure 1: 128/82 Code: 8480-6 Heart Rate 1: 68 bpm Respiratory Rate: 20 bpm SpO2: 95% Temperature: 36.5 (C) / 97.7 (F) We ight: 91 lbs Code: 51867-3 04/09/2020 Blood Pressure 1: 130/78 Code: 8480-6 Heart Rate 1: 68 bpm Respiratory Rate: 20 bpm SpO2: 99% Temperature: 36.3 (C) / 97.4 (F) We ight: 90 lbs Code: 91021-5 11/22/2019 Temperature: 36.3 (C) / 97.3 (F) 09/10/2019 Blood Pressure 1: 128/72 Code: 8480-6 BMI: 15.6 Code: 86484-8 Heart Rate 1: 68 bpm Height: 5'5" Code: 8302-2 Respiratory Rate: 20 bpm SpO2: 97% Temperature: 36.6 (C) / 97.9 (F) Weight: 94 lbs Code: 49530-1 Functional Status No Functional Status data Reason [...] visit Encounters Encounter Performer Location Codes Date (93326) OFFICE/OUTPATIENT VISIT EST Diagnosis: GERD (gastroesophageal reflux disease)[ICD10: K21.9] Diagnosis: Duodenal ulcer[ICD10: K26.9] Diagnosis: Coronary artery disease[ICD10: I25.10] Diagnosis: Anxiety[ICD10: F41.9] Diagnosis: Blood loss anemia[ICD10: D50.0] Ericka CHANCE [employer] CPT-4: 23218 12/30/2020 ([id number]) NURSE/OUTPATIENT VISIT EST Diagnosis: Edema[ICD10: R60.9] Ericka [facility] [employer] CPT-4: 68511 12/21/2020 ([id number]) OFFICE/OUTPATIENT VISIT EST Diagnosis: Coronary artery disease[ICD10: I25.10] Diagnosis: Essential (primary) hypertension[ICD10: I10] Diagnosis: Stress reaction[ICD10: F43.0] Diagnosis: Insomnia[ICD10: G47.00] Diagnosis: Pulmonary nodule[ICD10: R91.1] Ericka Garcíac[facility]isp[facility]ise [facility] CPT-4: 28890 11/10/2020 ([id number]) NO CHARGE Diagnosis: Mass of upper lobe of right lung[ICD10: R91.8] Ericka [facility] [employer] [employer] CPT-4: 94815 07/29/2020 ([id number]) OFFICE/OUTPATIENT VISIT EST Diagnosis: Fatigue[ICD10: R53.83] Diagnosis: Lymphadenopathy of head and neck[ICD10: R59.1] Diagnosis: Weight loss, non-intentional[ICD10: R63.4] Diagnosis: History of melanoma[ICD10: Z85.820] Diagnosis: Skin lesion[ICD10: L98.9] Sara Aguila ERICKA KatherineNilda GARCÍA [facility] [employer] CPT-4: 37777 07/20/2020 ([id number]) OFFICE/OUTPATIENT VISIT EST Diagnosis: Urinary tract infection[ICD10: N39.0] Meena MurphyNilda EVGENY [facility] CPT-4: 48444 04/30/2020 ([id number]) OFFICE/OUTPATIENT VISIT EST Diagnosis: Dizziness[ICD10: R42] Diagnosis: Depressed mood with feeling of loneliness[ICD10: F32.9] Diagnosis: Insomnia[ICD10: G47.00] Ericka CHANCE KatherineNilda EVGENY CHAN[facility] [employer] CPT-4: 78467 04/09/2020 ([id number]) NURSE/OUTPATIENT VISIT EST Diagnosis: Coronary artery disease[ICD10: I25.10] Diagnosis: Fatigue[ICD10: R53.83] Diagnosis: Essential (primary) hypertension[ICD10: I10] Ericka CHANCE KatherineNilda CHELY [facility] CPT-4: 36580 04/07/2020 ([id number]) OFFICE/OUTPATIENT VISIT EST Diagnosis: Fatigue[ICD10: R53.83] Meena Li [facility] CPT-4: 50130 11/22/2019 ([id number]) NURSE/OUTPATIENT VISIT EST Diagnosis: Essential (primary) hypertension[ICD10: I10] Diagnosis: Coronary artery disease[ICD10: I25.10] Diagnosis: Encounter for general adult medical examination with abnormal findings[ICD10: Z00.01] Ericka Milan [employer]GENY [employer] CPT-4: 08823 09/30/2019 ([id number]) OFFICE/OUTPATIENT VISIT NEW Diagnosis: Essential (primary) hypertension[ICD10: I10] Diagnosis: Coronary artery disease[ICD10: I25.10] Diagnosis: Aortic valve stenosis with insufficiency[ICD10: I35.2] Ericka [facility]ANCE [facility] CPT-4: 41104 09/10/2019 Plan of Care Planned Activity Notes Codes Status Date Appointment: Sara Aguila WPtel: [phone] [facility] US CANCELED 01/01/2021 Visit Diagnosis Plan: Anxiety [...] : K21.9 12/30/2020 Appointment: Ericka Mccormick WPtel: [address] [place], [place] [phone] US FOLLOW UP 12/30/2020 Appointment: Ericka Mccormick WPtel: [address] [place], [place] [phone] US NURSE SERVICES 12/21/2020 Visit Diagnosis Plan: Insomnia [...] : F43.0 11/10/2020 Appointment: Ericka Mccormick WPtel: [address] [place], [place] [phone] US FOLLOW UP 11/10/2020 Patient Education: trazodone- [employer] Coupon [id number] [email or web address] Completed 11/10/2020 Visit Diagnosis Plan: Mass of upper lobe of right lung Discussion: CT scan of lung results discussed with patient and told this looks like cancer Agrees to see pulmonology to see if will be amenable to bronchoscopy to get cells/washings ICD-9 : 786.6 ICD-10 : R91.8 07/29/2020 Appointment: [facility] [phone] [facility] [facility] 07/29/2020 Care Plan: Referral Order SNOMED-CT : 30 [id number] Pending 07/29/2020 Care Plan: CT SFT TSUE NCK W/O & W/DYE L OINC : 70118-4 Pending 07/21/2020 Visit Diagnosis Plan: Fatigue Discussion: [...] 07/20/2020 Appointment: Sara [facility]ila [facility]el[facility] [phone] [facility] [facility] 07/20/2020 Patient Education: Patient Medication [...] ICD-10 : N39.0 04/30/2020 Appointment: Meena Li [address] [place] [address] ACUTE ILLNESS 04/30/2020 Appointment: Meena Li [address] [place] [address] 04/21/2020 1020---patient needed seen fo r appointment [...] : F32.9 04/09/2020 Appointment: Ericka Mccormick WPtel: [address] [place] [address] FOLLOW UP 04/09/2020 Care Plan: COMPREH[place] : 28168-8 Pending 04/09/2020 Appointment: Ericka Mccormick WPtel: [address] [place] [address] US LAB 04/07/2020 Visit Diagnosis Plan: Fatigue Discussion: no other sym ptoms other than fatigue for 4 weeks so will update labs. order sent to [facility] for blood work and ua with c&s. instructed to call office with new or worsening symptoms. ICD-9 : 780.79 ICD-10 : R53.83 11/22/2019 Appointment: Meena Li [address] [place], [place] [phone] TELEMEDICINE 11/22/2019 Appointment: Ericka Mccormick WPtel: [address] [place] [address] US LAB 09/30/2019 Visit Diagnosis Plan: Coronary [...] : I10 09/10/2019 Appointment: Ericka Mccormick WPtel: [address] [place] [address] US NEW PATIENT 09/10/2019 Patient Education: carvedilol- [employer] Coupon [phone] [email or web address] Completed 09/10/2019 Appointment: Ericka Mccormick WPtel: [address] [place] [address] US RESCHEDULED 08/20/2019 Appointment: Ericka Mccormick WPtel: [address] [place] [address] US CANCELED 07/22/2019 Referral: Vikram Maguire WPtel: [phone] [facility] [address] [id number] [place] Referral Appointment Requested Instructions No Instructions Medical Equipment No Medical Equipment data Health Concerns Section Health Concerns data not found Goals Section Goals data not found Interventions Section Interventions data not found Health Status Evaluations/Outcomes Section Health Status Evaluations/Outcomes data not found Advance Directives No Advance Directive data
--- OUTSIDE RECORDS SUMMARY | 2021-02-15 18:54 | XMS REPORT | CCD ---
Author Author Erica Mccormick D.O. Organization ERICKA MCCORMICK DO [facility] Address [address] [place] [address] Phone Care Team Providers Care Cold Press Operator Name Role Phone PP Unavailable CCM Unavailable Summary Purpose Interface Exchange Insurance Providers Payer name Policy type / Coverage type Covered alliance party ID Effective Begin Date Effective End Date WPS MEDICARE PART B [place] Medicare Part B [id number] Unknown Unknown [employer]UE [employer] [place] MEDIC[place] Medicare Part B X [id number] Unknown Unknown Family History Family History data not found Social History Social History Element Codes Description Effective Dates Marital status Unknown 09/10/2019 Number of children Unknown 1 09/10/2019 Employment Unknown Retired 09/10/[address]: 8464590 Former smoker quit 201109/10/[address]: 263627 Currently drinks alcohol 09/09 Frequency of drinks SNOMED CT: 784513666 1-4 drinks per week Allergies, Adverse Reactions, [...] Start Date Stop Date Status Fill Instructions pantoprazole 20 mg tablet,delayed release RxNorm: 497782 1 Tablet(s) Oral two times a day 12/22/2020 12/22/2020 Inactive paroxetine 20 mg tablet RxNorm: 1909858 1 Tablet(s) Oral QD 021 01/20/2021 Active pantoprazole 20 mg tablet,delayed release RxNorm: 300817 1 Tablet(s) Oral two times a day 12/22/2020 03/21/2021 Active paroxetine 20 mg tablet RxNorm: 5306820 1 Tablet(s) Oral QD 021 12/15/2020 Inactive paroxetine 20 mg tablet RxNorm: 3410056 1 Tablet(s) Oral QD 021 12/15/2020 Inactive MagOx 400 mg (241.3 mg magnesium) tablet RxNorm: 173505 Take 1 Tablet(s) Oral every night at bedtime with melatonin 11/23/2020 No Stop Date Active melatonin 3 mg tablet RxNorm: 245304 Take 1-2 Tablet(s) Oral every night at bedtime 11/18/2020 No Stop Date Active atorvastatin 40 mg tablet RxNorm: 283555 Take 1 Tablet( s) Oral every night at bedtime 11/10/2020 No Stop Date Active Plavix 75 mg tablet RxNorm: 995002 Take 1 Tablet(s) Oral QD No Stop Date Active trazodone 50 mg tablet RxNorm: 704453 Take 1-2 Tablet(s ) Oral QPM as needed for sleep 11/10/2020 11/22/2020 Inactive alprazolam 0.25 mg tablet RxNorm: 013207 1/2-1 Tablet(s ) Oral QPM as needed for sleep 08/03/2020 09/01/2020 Inactive alprazolam 0.25 mg tablet RxNorm: 918076 1/2-1 Tablet(s ) Oral QPM as needed for sleep 08/03/2020 08/02/2020 Inactive Aspirin Low Dose 81 mg tablet,delayed release RxNorm: 307952 1 Tablet(s) Oral QD 09/10/2019 No Stop Date Active losartan 25 mg tablet RxNorm: 376737 1 Tablet(s) Oral QD 09/10/2019 No Stop Date Active carvedilol 6.25 mg tablet RxNorm: 360985 1 Tablet(s) Oral two t imes a day 09/10/2019 11/09/2020 Inactive Fish Oil 1,000 mg (120 mg-180 mg) capsule RxNorm: 1 Caps ule(s) Oral QD 09/10/2019 11/25/2019 Inactive Medication Administered No Medication Administered data Immunizations No Immunization data Results Observation Observation Code Item Item Code Result Date S ervice Location COMPREHENSIVE METABOLIC 98635 AST 16 U/L 2019 Unknown COMPREHENSIVE METABOLIC 51020 ALT 12 U/L 2019 Unknown COMPREHENSIVE METABOLIC 85954 BUN 13 mg/dL 2019 Unknown COMPREHENSIVE METABOLIC 91020 ALBUMIN 4.1 g/dL 2019 Unknown COMPREHENSIVE METABOLIC 82128 CHLORIDE 96 mmol/L 2019 Unknown COMPREHENSIVE METABOLIC 14873 Bili Total 1.1 mg/dL 04/09 Unknown COMPREHENSIVE METABOLIC 99764 ALK PHOS 80 U/L 2019 Unknown COMPREHENSIVE METABOLIC 91514 SODIUM 131 mmol/L 04/09 Unknown COMPREHENSIVE METABOLIC 23884 CREATININE 0.76 mg/dL 03/24 Unknown COMPREHENSIVE METABOLIC 45884 CALCIUM 9.0 mg/dL 2019 Unknown COMPREHENSIVE METABOLIC 70957 POTASSIUM 4.2 mmol/L 04/09 Unknown COMPREHENSIVE METABOLIC 29030 Total Protein 6.8 g/dL Unknown COMPREHENSIVE METABOLIC 74372 Glucose 101 mg/dL 2019 Unknown COMPREHENSIVE METABOLIC 71891 Bicarbonate 25 mmol/L 03/24 Unknown COMPREHENSIVE METABOLIC 78292 AGAP 10 mmol/L 2019 Unknown GFR CALC [id number] GFR Afr Amr >60 mL/min 04/09/2020 Unknow n GFR CALC 9280187 GFR Non Afr Amr >60 mL/min 04/09/2020 Un known GAMMA GLUTAMYL TRANSFERASE 90342 GGT 19 U/L Unknown COMPLETE BLOOD COUNT [id number] WBC 6.3 10e9/L 04/07/20 20 Unknown COMPLETE BLOOD COUNT 1176949 RBC 4.36 10e12/L 2019 Unknown COMPLETE BLOOD COUNT [id number] HEMOGLOBIN 15.2 g/dL 04/07/20 20 Unknown COMPLETE BLOOD COUNT [id number] HEMATOCRIT 43.8 % 04/07/20 20 Unknown COMPLETE BLOOD COUNT [id number] MCV 100.5 fL 0 Unknown COMPLETE BLOOD COUNT 0805387 MCH 34.9 pg 0 Unknown COMPLETE BLOOD COUNT 0340793 MCHC 34.7 g/dL 0 Unknown COMPLETE BLOOD COUNT 6486837 PLATELET COUNT 254 10e9/L Unknown COMPLETE BLOOD COUNT 9762046 Mean Plt Volume 9.9 fL Unknown COMPLETE BLOOD COUNT 4390402 Neut Auto 63.3 % 0 Unknown COMPLETE BLOOD COUNT [id number] Lymph Auto 24.5 % 04/07/20 20 Unknown COMPLETE BLOOD COUNT [id number] Kerr Auto 8.4 % 0 Unknown COMPLETE BLOOD COUNT 2358438 Eos Auto 3.2 % 0 Unknown COMPLETE BLOOD COUNT 2256949 RDW 12.8 % 0 Unknown COMPLETE BLOOD COUNT 0082356 Baso Auto 0.6 % 0 Unknown COMPLETE BLOOD COUNT [id number] Neutrophil Abs 3.99 10e9/L Unknown COMPLETE BLOOD COUNT [id number] Lymphocyte Abs 1.54 10e9/L Unknown COMPLETE BLOOD COUNT [id number] Monocyte Abs 0.53 10e9/L 03/24 Unknown COMPLETE BLOOD COUNT [id number] Eosinophil Abs 0.20 10e9/L Unknown COMPLETE BLOOD COUNT [id number] Basophil Abs 0.04 10e9/L 03/24 Unknown COMPLETE BLOOD COUNT 1219978 RDW-SD 47.6 fL 0 Unknown VITAMIN B 12 73201 VITAMIN B12 661 pg/mL 04/07/2020 Unkn own LIPID GROUP 51492 Cholesterol 168 mg/dL 09/30/2019 Unkno wn LIPID GROUP 83192 Triglyceride 141 mg/dL 09/30/2019 Unkn own LIPID GROUP 87886 HDL CHOLESTEROL 66 mg/dL 09/30/2019 U nknown LIPID GROUP 55359 Chol/HDL Ratio 2.55 ratio 09/30/2019 U nknown LIPID GROUP 73508 NON-HDL Chol 102 mg/dL 09/30/2019 Unkn own LIPID GROUP 48472 LDL Cholesterol 74 mg/dL 09/30/2019 U nknown FREE T4 67725 T4 Free 0.76 ng/dL 09/30/2019 Unknown THYROID STIMULATING HORMONE 37038 TSH 2.186 uIU/mL 09/30/2019 Unknown GFR CALC 3806620 GFR Non Afr Amr >60 mL/min 09/30/2019 Un known GFR CALC 4275890 GFR Afr Amr >60 mL/min 09/30/2019 Unknow n COMPREHENSIVE METABOLIC 06126 AST 14 U/L 2019 Unknown COMPREHENSIVE METABOLIC 17225 ALT 11 U/L 2019 Unknown COMPREHENSIVE METABOLIC 94262 BUN 15 mg/dL 2019 Unknown COMPREHENSIVE METABOLIC 84579 ALBUMIN 4.0 g/dL 2019 Unknown COMPREHENSIVE METABOLIC 33489 CHLORIDE 96 mmol/L 2019 Unknown COMPREHENSIVE METABOLIC 14569 Bili Total 0.9 mg/dL 09/29 Unknown COMPREHENSIVE METABOLIC 71421 ALK PHOS 72 U/L 2019 Unknown COMPREHENSIVE METABOLIC 91377 SODIUM 132 mmol/L 09/29 Unknown COMPREHENSIVE METABOLIC 93297 CREATININE 0.73 mg/dL 11/2019 Unknown COMPREHENSIVE METABOLIC 80651 CALCIUM 9.1 mg/dL 2019 Unknown COMPREHENSIVE METABOLIC 18325 POTASSIUM 4.6 mmol/L 09/29 Unknown COMPREHENSIVE METABOLIC 74635 Total Protein 6.4 g/dL Unknown COMPREHENSIVE METABOLIC 08376 Glucose 97 mg/dL 2019 Unknown COMPREHENSIVE METABOLIC 01558 Bicarbonate 25 mmol/L 11/2019 Unknown COMPREHENSIVE METABOLIC 96350 AGAP 11 mmol/L 2019 Unknown COMPLETE BLOOD COUNT 4602546 WBC 5.3 10e9/L 09/30/19 20 Unknown COMPLETE BLOOD COUNT 1389252 RBC 4.16 10e12/L 2019 Unknown COMPLETE BLOOD COUNT 9866684 HEMOGLOBIN 14.1 g/dL 09/30/19 20 Unknown COMPLETE BLOOD COUNT 3644134 HEMATOCRIT 42.6 % 09/30/19 20 Unknown COMPLETE BLOOD COUNT 9579975 MCV 102.4 fL 0 Unknown COMPLETE BLOOD COUNT 4468148 MCH 33.9 pg 0 Unknown COMPLETE BLOOD COUNT 9619155 MCHC 33.1 g/dL 0 Unknown COMPLETE BLOOD COUNT 2035304 PLATELET COUNT 273 10e9/L 11/2019 Unknown COMPLETE BLOOD COUNT 7511305 Mean Plt Volume 9.4 fL 11/2019 Unknown COMPLETE BLOOD COUNT 0579388 Neut Auto 57.3 % 0 Unknown COMPLETE BLOOD COUNT 2188571 Lymph Auto 29.3 % 09/30/19 20 Unknown COMPLETE BLOOD COUNT 0230743 Kerr Auto 7.6 % 0 Unknown COMPLETE BLOOD COUNT 0742197 RDW 13.8 % 0 Unknown COMPLETE BLOOD COUNT 8298836 Eos Auto 4.5 % 0 Unknown COMPLETE BLOOD COUNT 1327171 Baso Auto 1.3 % 0 Unknown COMPLETE BLOOD COUNT 8407424 Neutrophil Abs 3.04 10e9/L Unknown COMPLETE BLOOD COUNT 1211871 Lymphocyte Abs 1.55 10e9/L Unknown COMPLETE BLOOD COUNT 5065626 Monocyte Abs 0.40 10e9/L 11/2019 Unknown COMPLETE BLOOD COUNT 1376399 Eosinophil Abs 0.24 10e9/L Unknown COMPLETE BLOOD COUNT 5876606 RDW-SD 50.7 fL 0 Unknown COMPLETE BLOOD COUNT [id number] Basophil Abs 0.07 10e9/L 11/2019 Unknown Procedures Procedure Codes Date ROUTINE VENIPUNCTURE CPT-4: 17658 07/20/2020 COMPREHEN METABOLIC PANEL CPT-4: 53922 07/20/2020 ASSAY OF FREE THYROXINE CPT-4: 37682 07/20/2020 ASSAY THYROID STIM HORMONE CPT-4: 20364 07/20/2020 COMPLETE CBC W/AUTO DIFF WBC CPT-4: 47520 07/20/2020 RBC SED RATE AUTOMATED CPT-4: 09263 07/20/2020 URINALYSIS NONAUTO W/O SCOPE CPT-4: 87867 04/30/2020 URINE CULTURE/ COLONY COUNT CPT-4: 84813 04/30/2020 ROUTINE VENIPUNCTURE CPT-4: 92170 04/07/2020 COMPLETE CBC W/AUTO DIFF WBC CPT-4: 44218 04/07/2020 VITAMIN B-12 CPT-4: 23129 04/07/2020 ASSAY OF GGT CPT-4: 35780 04/07/2020 ROUTINE VENIPUNCTURE CPT-4: 14119 09/30/2019 ASSAY OF FREE THYROXINE CPT-4: 01420 09/30/2019 ASSAY THYROID STIM HORMONE CPT-4: 64168 09/30/2019 COMPREHEN METABOLIC PANEL CPT-4: 77453 09/30/2019 COMPLETE CBC W/AUTO DIFF WBC CPT-4: 06656 09/30/2019 LIPID PANEL CPT-4: 25166 09/30/2019 Vital Signs Date Vital 11/10/2020 Blood Pressure 1: 130/74 Code: 8480-6 Heart Rate 1: 56 bpm Respiratory Rate: 20 bpm SpO2: 98% Temperature: 36.3 (C) / 97.4 (F) We ight: 85 lbs Code: 10104-2 07/29/2020 Blood Pressure 1: 121/65 Code: 8480-6 BMI: 14.3 Code: 71865-3 Heart Rate 1: 58 bpm Height: 5'5" Code: 8302-2 Respiratory Rate: 15 bpm SpO2: 98% Temperature: 36.9 (C) / 98.4 (F) Weight: 86 lbs Code: 22202-5 07/20/2020 Blood Pressure 1: 123/69 Code: 8480-6 Heart Rate 1: 68 bpm Respiratory Rate: 15 bpm SpO2: 99% Temperature: 36.6 (C) / 97.8 (F) We ight: 83 lbs Code: 06360-1 04/30/2020 Blood Pressure 1: 128/82 Code: 8480-6 Heart Rate 1: 68 bpm Respiratory Rate: 20 bpm SpO2: 95% Temperature: 36.5 (C) / 97.7 (F) We ight: 91 lbs Code: 86374-0 04/09/2020 Blood Pressure 1: 130/78 Code: 8480-6 Heart Rate 1: 68 bpm Respiratory Rate: 20 bpm SpO2: 99% Temperature: 36.3 (C) / 97.4 (F) We ight: 90 lbs Code: 31234-4 11/22/2019 Temperature: 36.3 (C) / 97.3 (F) 09/10/2019 Blood Pressure 1: 128/72 Code: 8480-6 BMI: 15.6 Code: 36911-2 Heart Rate 1: 68 bpm Height: 5'5" Code: 8302-2 Respiratory Rate: 20 bpm SpO2: 97% Temperature: 36.6 (C) / 97.9 (F) Weight: 94 lbs Code: 53795-2 Functional Status No Functional Status data Reason [...] frequent urination 04/30/2020 follow up 04/09/2020 Discuss labs---elmiramarco nt has been holding iron and vitamin b12. She has started taking nature balance mutivitamins fatigue 11/22/2019 ~generic 09/10/2019 New Patient---establ ishing visit Encounters Encounter Performer Location Codes Date ([id number]) NURSE/OUTPATIENT VISIT EST Diagnosis: Edema[ICD10: R60.9] Ericka MCCORMICK DO [facility] CPT-4: 83664 12/21/2020 ([id number]) OFFICE/OUTPATIENT VISIT EST Diagnosis: Coronary artery disease[ICD10: I25.10] Diagnosis: Essential (primary) hypertension[ICD10: I10] Diagnosis: Stress reaction[ICD10: F43.0] Diagnosis: Insomnia[ICD10: G47.00] Diagnosis: Pulmonary nodule[ICD10: R91.1] Ericka MCCORMICK DO [employer] CPT-4: 15825 11/10/2020 ([id number]) NO CHARGE Diagnosis: Mass of upper lobe of right lung[ICD10: R91.8] Ericka MCCORMICK DO [employer] CPT-4: 57443 07/29/2020 ([id number]) OFFICE/OUTPATIENT VISIT EST Diagnosis: Fatigue[ICD10: R53.83] Diagnosis: Lymphadenopathy of head and neck[ICD10: R59.1] Diagnosis: Weight loss, non-intentional[ICD10: R63.4] Diagnosis: History of melanoma[ICD10: Z85.820] Diagnosis: Skin lesion[ICD10: L98.9] Sara Mingo ERICKA NUNEZ [employer] CPT-4: 14086 07/20/2020 ([id number]) OFFICE/OUTPATIENT VISIT EST Diagnosis: Urinary tract infection[ICD10: N39.0] Meena Guillermo MICHOACANO MCCORMICK [employer] CPT-4: 06949 04/30/2020 ([id number]) OFFICE/OUTPATIENT VISIT EST Diagnosis: Dizziness[ICD10: R42] Diagnosis: Depressed mood with feeling of loneliness[ICD10: F32.9] Diagnosis: Insomnia[ICD10: G47.00] Ericka CHANEL [employer] CPT-4: 83892 04/09/2020 ([id number]) NURSE/OUTPATIENT VISIT EST Diagnosis: Coronary artery disease[ICD10: I25.10] Diagnosis: Fatigue[ICD10: R53.83] Diagnosis: Essential (primary) hypertension[ICD10: I10] Ericka Sanchezpromise ERICKAHO MCCORMICK [employer] CPT-4: 73188 04/07/2020 ([id number]) OFFICE/OUTPATIENT VISIT EST Diagnosis: Fatigue[ICD10: R53.83] [facility]PT-[facility]: 06657 11/22/2019 ([id number]) NURSE/OUTPATIENT VISIT EST Diagnosis: Essential (primary) hypertension[ICD10: I10] Diagnosis: Coronary artery disease[ICD10: I25.10] Diagnosis: Encounter for general adult medical examination with abnormal findings[ICD10: Z00.01] Ericka Mccormick ERICKA Kayli MCCORMICK [employer] CPT-4: 43488 09/30/2019 ([id number]) OFFICE/OUTPATIENT VISIT NEW Diagnosis: Essential (primary) hypertension[ICD10: I10] Diagnosis: Coronary artery disease[ICD10: I25.10] Diagnosis: Aortic valve stenosis with insufficiency[ICD10: I35.2] Ericka CHANCE KatherineNilda [employer] CPT-4: 18962 09/10/2019 Plan of Care Planned Activity Notes Codes Status Date Appointment: Ericka Mccormicktel: [address] [place], [place] [phone] NURSE SERVICES 12/21/2020 Visit Diagnosis Plan: Insomnia [...] : F43.0 11/10/2020 Appointment: Ericka Mccormick WPtel: [facility] FOLLOW UP 11/10/2020 Patient Education: trazodone- [employer] Coupon [phone] [email or web address] Completed 11/10/2020 Visit Diagnosis Plan: Mass of upper lobe of right lung Discussion: CT scan of lung results discussed with patient and told this looks like cancer Agrees to see pulmonology to see if will be amenable to bronchoscopy to get cells/washings ICD-9 : 786.6 ICD-10 : R91.8 07/29/2020 Appointment: [facility]ormick [facility] [phone] [facility] [facility] 07/29/2020 Care Plan: Referral Order SNOMED-CT : 30 [id number] Pending 07/29/2020 Care Plan: CT SFT TSUE NCK W/O & W/DYE L OINC : 63280-8 Pending 07/21/2020 Visit Diagnosis Plan: Fatigue Discussion: [...] Sara Aguila [facility]el[facility] [phone] [facility] [facility] 07/20/2020 Patient Education: Patient Medication [...] : N39.0 04/30/2020 Appointment: Meena Li [address] [place] [address] ACUTE ILLNESS 04/30/2020 Appointment: Meena Li [address] [place], [place] [address] 04/21/2020 1020---patient needed seen fo r appointment due to new urinary symptoms. She refused appt because wanted to just leave urine sample (km) CANCELED 04/21/2020 Visit Diagnosis Plan: Dizziness Discussion: Add CMP Pa tievinay never accomplished colonoscopy ICD-9 : 780.4 ICD-10 : R42 04/09/2020 Visit Diagnosis Plan: Depressed mood with feeling of l oneliness Discussion: Recommend low dose antidepressant for both stress/insomnia but patient defers ICD-9 : 311 ICD-10 : F32.9 04/09/2020 Appointment: Ericka Mccormick WPtel: [address] [place] [address] FOLLOW UP 04/09/2020 Care Plan: COMPREHEN METAB[place]IC [place] : 80800-0 Pending 04/09/2020 Appointment: Ericka Mccormick WPtel: [address] [place], [place] [phone] US LAB 04/07/2020 Visit Diagnosis Plan: Fatigue Discussion: no other sym ptoms other than fatigue for 4 weeks so will update labs. order sent to [facility] [place] blood work and ua with c&s. instructed to call office with new or worsening symptoms. ICD-9 : 780.79 ICD-10 : R53.83 11/22/2019 Appointment: Meena Li [address] [place], [place] [id number] TELEMEDICINE 11/22/2019 Appointment: Ericka Mccormick WPtel: [address] [facility] US LAB 09/30/2019 Visit Diagnosis Plan: Coronary [...] : I10 09/10/2019 Appointment: Ericka Mccormick WPtel: [address] [place] [address] US NEW PATIENT 09/10/2019 Patient Education: carvedilol- [employer] Coupon [phone] [email or web address] Completed 09/10/2019 Appointment: Ericka Mccormick WPtel: [address] [place] [address] US RESCHEDULED 08/20/2019 Appointment: Ericka Mccormick WPtel: [address] [place], [place] [phone] US CANCELED 07/22/2019 Referral: Vikram Maguire WPtel: [address] [facility] [address] [id number] [place] Referral Appointment Requested Instructions No Instructions Medical Equipment No Medical Equipment data Health Concerns Section Health Concerns data not found Goals Section Goals data not found Interventions Section Interventions data not found Health Status Evaluations/Outcomes Section Health Status Evaluations/Outcomes data not found Advance Directives No Advance Directive data
--- OUTSIDE RECORDS SUMMARY | 2021-02-15 18:54 | XMS REPORT | CCD ---
Author Author Erica Mccormick D.O. Organization [facility]ICKA MCCORMICK DO [facility] Address [address] [place] [address] Phone Care Team Providers Care Associate Dentist Name Role Phone PP Unavailable CCM Unavailable Summary Purpose Interface Exchange Insurance Providers Payer name Policy type / Coverage type Covered republican ID Effective Begin Date Effective End Date WPS MEDICARE PART B [place] Medicare Part B [id number] Unknown Unknown [employer]UE [employer] [place] [employer] [place] MEDICARE SU[place] Medicare Part B X [id number] Unknown Unknown Family History Family History data not found Social History Social History Element Codes Description Effective Dates Marital status Unknown 09/10/2019 Number of children Unknown 1 09/10/2019 Employment Unknown Retired 09/10/[address]: 1171457 Former smoker quit 201109/10/[address]: 456708 Currently drinks alcohol 09/09 Frequency of drinks SNOMED CT: 446066251 1-4 drinks per week Allergies, Adverse Reactions, [...] Fill Instructions paroxetine 20 mg tablet RxNorm: 7877602 1 Tablet(s) Oral QD 021 01/13/2021 Active paroxetine 20 mg tablet RxNorm: 1947235 1 Tablet(s) Oral QD 021 12/15/2020 Inactive MagOx 400 mg (241.3 mg magnesium) tablet RxNorm: 203910 Take 1 Tablet(s) Oral every night at bedtime with melatonin 11/23/2020 No Stop Date Active melatonin 3 mg tablet RxNorm: 174378 Take 1-2 Tablet(s) Oral every night at bedtime 11/18/2020 No Stop Date Active atorvastatin 40 mg tablet RxNorm: 181126 Take 1 Tablet( s) Oral every night at bedtime 11/10/2020 No Stop Date Active Plavix 75 mg tablet RxNorm: 485565 Take 1 Tablet(s) Oral QD No Stop Date Active trazodone 50 mg tablet RxNorm: 516994 Take 1-2 Tablet(s ) Oral QPM as needed for sleep 11/10/2020 11/22/2020 Inactive alprazolam 0.25 mg tablet RxNorm: 686132 1/2-1 Tablet(s ) Oral QPM as needed for sleep 08/03/2020 09/01/2020 Inactive alprazolam 0.25 mg tablet RxNorm: 321560 1/2-1 Tablet(s ) Oral QPM as needed for sleep 08/03/2020 08/02/2020 Inactive Aspirin Low Dose 81 mg tablet,delayed release RxNorm: 064065 1 Tablet(s) Oral QD 09/10/2019 No Stop Date Active losartan 25 mg tablet RxNorm: 058209 1 Tablet(s) Oral QD 09/10/2019 No Stop Date Active carvedilol 6.25 mg tablet RxNorm: 624583 1 Tablet(s) Oral two t imes a day 09/10/2019 11/09/2020 Inactive Fish Oil 1,000 mg (120 mg-180 mg) capsule RxNorm: 1 Caps ule(s) Oral QD 09/10/2019 11/25/2019 Inactive Medication Administered No Medication Administered data Immunizations No Immunization data Results Observation Observation Code Item Item Code Result Date S ervice Location COMPREHENSIVE METABOLIC 60640 AST 16 U/L 2019 Unknown COMPREHENSIVE METABOLIC 81753 ALT 12 U/L 2019 Unknown COMPREHENSIVE METABOLIC 34273 BUN 13 mg/dL 2019 Unknown COMPREHENSIVE METABOLIC 81451 ALBUMIN 4.1 g/dL 2019 Unknown COMPREHENSIVE METABOLIC 74626 CHLORIDE 96 mmol/L 2019 Unknown COMPREHENSIVE METABOLIC 80754 Bili Total 1.1 mg/dL 04/09 Unknown COMPREHENSIVE METABOLIC 75754 ALK PHOS 80 U/L 2019 Unknown COMPREHENSIVE METABOLIC 34302 SODIUM 131 mmol/L 04/09 Unknown COMPREHENSIVE METABOLIC 87481 CREATININE 0.76 mg/dL 03/24 Unknown COMPREHENSIVE METABOLIC 21339 CALCIUM 9.0 mg/dL 2019 Unknown COMPREHENSIVE METABOLIC 93068 POTASSIUM 4.2 mmol/L 04/09 Unknown COMPREHENSIVE METABOLIC 57861 Total Protein 6.8 g/dL Unknown COMPREHENSIVE METABOLIC 83230 Glucose 101 mg/dL 2019 Unknown COMPREHENSIVE METABOLIC 59510 Bicarbonate 25 mmol/L 03/24 Unknown COMPREHENSIVE METABOLIC 89553 AGAP 10 mmol/L 2019 Unknown GFR CALC 5286676 GFR Non Afr Amr >60 mL/min 04/09/2020 Un known GFR CALC 6276129 GFR Afr Amr >60 mL/min 04/09/2020 Unknow n GAMMA GLUTAMYL TRANSFERASE 36133 GGT 19 U/L Unknown COMPLETE BLOOD COUNT 2553427 WBC 6.3 10e9/L 04/07/20 20 Unknown COMPLETE BLOOD COUNT 7840452 RBC 4.36 10e12/L 2019 Unknown COMPLETE BLOOD COUNT 2135915 HEMOGLOBIN 15.2 g/dL 04/07/20 20 Unknown COMPLETE BLOOD COUNT 5445183 HEMATOCRIT 43.8 % 04/07/20 20 Unknown COMPLETE BLOOD COUNT 2221578 MCV 100.5 fL 0 Unknown COMPLETE BLOOD COUNT 9004508 MCH 34.9 pg 0 Unknown COMPLETE BLOOD COUNT 2870354 MCHC 34.7 g/dL 0 Unknown COMPLETE BLOOD COUNT 6581956 PLATELET COUNT 254 10e9/L Unknown COMPLETE BLOOD COUNT 3805922 Mean Plt Volume 9.9 fL Unknown COMPLETE BLOOD COUNT 1968293 Neut Auto 63.3 % 0 Unknown COMPLETE BLOOD COUNT 6268081 Lymph Auto 24.5 % 04/07/20 20 Unknown COMPLETE BLOOD COUNT 2985228 [place] Auto 8.4 % 0 Unknown COMPLETE BLOOD COUNT 9210573 RDW 12.8 % 0 Unknown COMPLETE BLOOD COUNT 8743191 Eos Auto 3.2 % 0 Unknown COMPLETE BLOOD COUNT 8673232 Baso Auto 0.6 % 0 Unknown COMPLETE BLOOD COUNT 5429281 Neutrophil Abs 3.99 10e9/L Unknown COMPLETE BLOOD COUNT 0957941 Lymphocyte Abs 1.54 10e9/L Unknown COMPLETE BLOOD COUNT 5507535 Monocyte Abs 0.53 10e9/L 03/24 Unknown COMPLETE BLOOD COUNT 2628487 Eosinophil Abs 0.20 10e9/L Unknown COMPLETE BLOOD COUNT 3089163 RDW-SD 47.6 fL 0 Unknown COMPLETE BLOOD COUNT 8269298 Basophil Abs 0.04 10e9/L 03/24 Unknown VITAMIN B 12 81730 VITAMIN B12 661 pg/mL 04/07/2020 Unkn own LIPID GROUP 27251 Cholesterol 168 mg/dL 09/30/2019 Unkno wn LIPID GROUP 89039 Triglyceride 141 mg/dL 09/30/2019 Unkn own LIPID GROUP 30892 HDL CHOLESTEROL 66 mg/dL 09/30/2019 U nknown LIPID GROUP 18142 Chol/HDL Ratio 2.55 ratio 09/30/2019 U nknown LIPID GROUP 33924 NON-HDL Chol 102 mg/dL 09/30/2019 Unkn own LIPID GROUP 42606 LDL Cholesterol 74 mg/dL 09/30/2019 U nknown FREE T4 54568 T4 Free 0.76 ng/dL 09/30/2019 Unknown THYROID STIMULATING HORMONE 74875 TSH 2.186 uIU/mL 09/30/2019 Unknown GFR CALC 7024466 GFR Non Afr Amr >60 mL/min 09/30/2019 Un known GFR CALC 0399237 GFR Afr Amr >60 mL/min 09/30/2019 Unknow n COMPREHENSIVE METABOLIC 93613 AST 14 U/L 2019 Unknown COMPREHENSIVE METABOLIC 73815 ALT 11 U/L 2019 Unknown COMPREHENSIVE METABOLIC 68524 BUN 15 mg/dL 2019 Unknown COMPREHENSIVE METABOLIC 62585 ALBUMIN 4.0 g/dL 2019 Unknown COMPREHENSIVE METABOLIC 73710 CHLORIDE 96 mmol/L 2019 Unknown COMPREHENSIVE METABOLIC 77795 Bili Total 0.9 mg/dL 09/29 Unknown COMPREHENSIVE METABOLIC 65352 ALK PHOS 72 U/L 2019 Unknown COMPREHENSIVE METABOLIC 40035 SODIUM 132 mmol/L 09/29 Unknown COMPREHENSIVE METABOLIC 86783 CREATININE 0.73 mg/dL 11/2019 Unknown COMPREHENSIVE METABOLIC 09607 CALCIUM 9.1 mg/dL 2019 Unknown COMPREHENSIVE METABOLIC 82847 POTASSIUM 4.6 mmol/L 09/29 Unknown COMPREHENSIVE METABOLIC 84375 Total Protein 6.4 g/dL Unknown COMPREHENSIVE METABOLIC 47504 Glucose 97 mg/dL 2019 Unknown COMPREHENSIVE METABOLIC 83657 Bicarbonate 25 mmol/L 11/2019 Unknown COMPREHENSIVE METABOLIC 58824 AGAP 11 mmol/L 2019 Unknown COMPLETE BLOOD COUNT 7389998 WBC 5.3 10e9/L 09/30/19 20 Unknown COMPLETE BLOOD COUNT 6330683 RBC 4.16 10e12/L 2019 Unknown COMPLETE BLOOD COUNT 3605684 HEMOGLOBIN 14.1 g/dL 09/30/19 20 Unknown COMPLETE BLOOD COUNT 0103848 HEMATOCRIT 42.6 % 09/30/19 20 Unknown COMPLETE BLOOD COUNT 7842428 MCV 102.4 fL 0 Unknown COMPLETE BLOOD COUNT 7598559 MCH 33.9 pg 0 Unknown COMPLETE BLOOD COUNT 6908198 MCHC 33.1 g/dL 0 Unknown COMPLETE BLOOD COUNT 5953121 PLATELET COUNT 273 10e9/L 11/2019 Unknown COMPLETE BLOOD COUNT 8409182 Mean Plt Volume 9.4 fL 11/2019 Unknown COMPLETE BLOOD COUNT 9015709 Neut Auto 57.3 % 0 Unknown COMPLETE BLOOD COUNT 4947064 Lymph Auto 29.3 % 09/30/19 20 Unknown COMPLETE BLOOD COUNT 3837345 [place] Auto 7.6 % 0 Unknown COMPLETE BLOOD COUNT 8154315 RDW 13.8 % 0 Unknown COMPLETE BLOOD COUNT 2670644 Eos Auto 4.5 % 0 Unknown COMPLETE BLOOD COUNT 8400682 Baso Auto 1.3 % 0 Unknown COMPLETE BLOOD COUNT 8810432 Neutrophil Abs 3.04 10e9/L Unknown COMPLETE BLOOD COUNT 6012310 Lymphocyte Abs 1.55 10e9/L Unknown COMPLETE BLOOD COUNT 6337331 Monocyte Abs 0.40 10e9/L 11/2019 Unknown COMPLETE BLOOD COUNT 1605306 Eosinophil Abs 0.24 10e9/L Unknown COMPLETE BLOOD COUNT 7783310 RDW-SD 50.7 fL 0 Unknown COMPLETE BLOOD COUNT 6472108 Basophil Abs 0.07 10e9/L 0 11/2019 Unknown Procedures Procedure Codes Date ROUTINE VENIPUNCTURE CPT-4: 39282 07/20/2020 COMPREHEN METABOLIC PANEL CPT-4: 00644 07/20/2020 ASSAY OF FREE THYROXINE CPT-4: 31708 07/20/2020 ASSAY THYROID STIM HORMONE CPT-4: 23266 07/20/2020 COMPLETE CBC W/AUTO DIFF WBC CPT-4: 74676 07/20/2020 RBC SED RATE AUTOMATED CPT-4: 57075 07/20/2020 URINALYSIS NONAUTO W/O SCOPE CPT-4: 51107 04/30/2020 URINE CULTURE/ COLONY COUNT CPT-4: 69671 04/30/2020 ROUTINE VENIPUNCTURE CPT-4: 70292 04/07/2020 COMPLETE CBC W/AUTO DIFF WBC CPT-4: 74621 04/07/2020 VITAMIN B-12 CPT-4: 50128 04/07/2020 ASSAY OF GGT CPT-4: 12052 04/07/2020 ROUTINE VENIPUNCTURE CPT-4: 79610 09/30/2019 ASSAY OF FREE THYROXINE CPT-4: 67176 09/30/2019 ASSAY THYROID STIM HORMONE CPT-4: 73404 09/30/2019 COMPREHEN METABOLIC PANEL CPT-4: 77762 09/30/2019 COMPLETE CBC W/AUTO DIFF WBC CPT-4: 48908 09/30/2019 LIPID PANEL CPT-4: 36219 09/30/2019 Vital Signs Date Vital 11/10/2020 Blood Pressure 1: 130/74 Code: 8480-6 Heart Rate 1: 56 bpm Respiratory Rate: 20 bpm SpO2: 98% Temperature: 36.3 (C) / 97.4 (F) We ight: 85 lbs Code: 24737-0 07/29/2020 Blood Pressure 1: 121/65 Code: 8480-6 BMI: 14.3 Code: 92397-0 Heart Rate 1: 58 bpm Height: 5'5" Code: 8302-2 Respiratory Rate: 15 bpm SpO2: 98% Temperature: 36.9 (C) / 98.4 (F) Weight: 86 lbs Code: 70079-2 07/20/2020 Blood Pressure 1: 123/69 Code: 8480-6 Heart Rate 1: 68 bpm Respiratory Rate: 15 bpm SpO2: 99% Temperature: 36.6 (C) / 97.8 (F) We ight: 83 lbs Code: 99363-7 04/30/2020 Blood Pressure 1: 128/82 Code: 8480-6 Heart Rate 1: 68 bpm Respiratory Rate: 20 bpm SpO2: 95% Temperature: 36.5 (C) / 97.7 (F) We ight: 91 lbs Code: 98400-3 04/09/2020 Blood Pressure 1: 130/78 Code: 8480-6 Heart Rate 1: 68 bpm Respiratory Rate: 20 bpm SpO2: 99% Temperature: 36.3 (C) / 97.4 (F) We ight: 90 lbs Code: 21856-8 11/22/2019 Temperature: 36.3 (C) / 97.3 (F) 09/10/2019 Blood Pressure 1: 128/72 Code: 8480-6 BMI: 15.6 Code: 98670-1 Heart Rate 1: 68 bpm Height: 5'5" Code: 8302-2 Respiratory Rate: 20 bpm SpO2: 97% Temperature: 36.6 (C) / 97.9 (F) Weight: 94 lbs Code: 50669-8 Functional Status No Functional Status data Reason [...] EST Diagnosis: Edema[ICD10: R60.9] Ericka MCCORMICK DO [facility] CPT-4: 62711 12/21/2020 ([id number]) OFFICE/OUTPATIENT VISIT EST Diagnosis: Coronary artery disease[ICD10: I25.10] Diagnosis: Essential (primary) hypertension[ICD10: I10] Diagnosis: Stress reaction[ICD10: F43.0] Diagnosis: Insomnia[ICD10: G47.00] Diagnosis: Pulmonary nodule[ICD10: R91.1] Ericka MCCORMICK AT[facility] CPT-4: 61412 11/10/2020 ([id number]) NO CHARGE Diagnosis: Mass of upper lobe of right lung[ICD10: R91.8] Ericka MCCORMICK AT[facility] CPT-4: 55186 07/29/2020 ([id number]) OFFICE/OUTPATIENT VISIT EST Diagnosis: Fatigue[ICD10: R53.83] Diagnosis: Lymphadenopathy of head and neck[ICD10: R59.1] Diagnosis: Weight loss, non-intentional[ICD10: R63.4] Diagnosis: History of melanoma[ICD10: Z85.820] Diagnosis: Skin lesion[ICD10: L98.9] Sara Memoaure NUNEZ AT[facility] Access CPT-4: 03993 07/20/2020 ([id number]) OFFICE/OUTPATIENT VISIT EST Diagnosis: Urinary tract infection[ICD10: N39.0] Meena MCCORMICK [facility] CPT-4: 81633 04/30/2020 ([id number]) OFFICE/OUTPATIENT VISIT EST Diagnosis: Dizziness[ICD10: R42] Diagnosis: Depressed mood with feeling of loneliness[ICD10: F32.9] Diagnosis: Insomnia[ICD10: G47.00] Ericka CHANEL [facility] CPT-4: 45365 04/09/2020 ([id number]) NURSE/OUTPATIENT VISIT EST Diagnosis: Coronary artery disease[ICD10: I25.10] Diagnosis: Fatigue[ICD10: R53.83] Diagnosis: Essential (primary) hypertension[ICD10: I10] Ericka MCCORMICK [facility] CPT-4: 29775 04/07/2020 (55644) OFFICE/OUTPATIENT VISIT EST Diagnosis: Fatigue[ICD10: R53.83] Meena Li [facility] CPT-4: 39197 11/22/2019 ([id number]) NURSE/OUTPATIENT VISIT EST Diagnosis: Essential (primary) hypertension[ICD10: I10] Diagnosis: Coronary artery disease[ICD10: I25.10] Diagnosis: Encounter for general adult medical examination with abnormal findings[ICD10: Z00.01] Ericka Garcíacurtispromise MCCORMICK AT[facility] Access CPT-4: 82911 09/30/2019 ([id number]) OFFICE/OUTPATIENT VISIT NEW Diagnosis: Essential (primary) hypertension[ICD10: I10] Diagnosis: Coronary artery disease[ICD10: I25.10] Diagnosis: Aortic valve stenosis with insufficiency[ICD10: I35.2] Ericka Sanchezpromise MCCORMICK AT[facility] Access CPT-4: 56954 09/10/2019 Plan of Care Planned Activity Notes [...] : F43.0 11/10/2020 Appointment: Ericka Mccormick WPtel: [address] [place], [place] [phone] FOLLOW UP 11/10/2020 Patient Education: [email or web address]- [email or web address] Coupon [id number] [phone] [email or web address] Completed 11/10/2020 Visit Diagnosis Plan: Mass of upper lobe of right lung Discussion: CT scan of lung results discussed with patient and told this looks like cancer Agrees to see pulmonology to see if will be amenable to bronchoscopy to get cells/washings ICD-9 : 786.6 ICD-10 : R91.8 07/29/2020 Appointment: Eric[facility] Mccormick WPtel: [phone] [facility] [id number] [place] 07/29/2020 Care Plan: Referral Order SNOMED-CT : 30 [id number] Pending 07/29/2020 Care Plan: CT SFT TSUE NCK W/O & W/DYE L OIKY : 77883-5 Pending 07/21/2020 Visit Diagnosis Plan: Fatigue Discussion: [...] ICD-10 : N39.0 04/30/2020 Appointment: Meena Li [address] [place], [place] [phone] ACUTE ILLNESS 04/30/2020 Appointment: Meena Li [address] [place], [place] [phone] 04/21/2020 1020---patient needed seen fo [...] : F32.9 04/09/2020 Appointment: Ericka Mccormick WPtel: [address] [place] [address] [place] FOLLOW UP 04/09/2020 Care Plan: COMPREHEN [place] : 647[address]-6 Pending 04/09/2020 Appointment: Ericka Mccormick WPtel: [address] [place] [address] [place] LAB 04/07/2020 Visit Diagnosis Plan: Fatigue Discussion: no other sym ptoms other than fatigue for 4 weeks so will update labs. order sent to [facility] for blood work and ua with c&s. instructed to call office with new or worsening symptoms. ICD-9 : 780.79 ICD-10 : R53.83 11/22/2019 Appointment: Meena Li [address] [place], [place] [address] [address] TELEMEDICINE 11/22/2019 Appointment: Ericka Mccormick WPtel: [address] [place] [address] [place] LAB 09/30/2019 Visit Diagnosis Plan: Coronary [...] : I10 09/10/2019 Appointment: Ericka Mccormick WPtel: [phone] [place], [place] [phone] [place] NEW PATIENT 09/10/2019 Patient Education: [email or web address]- [email or web address] Elvin [phone] [email or web address] Completed 09/10/2019 Appointment: Ericka Mccormick WPtel: [phone] [facility] [place] RESCHEDULED 08/20/2019 Appointment: Ericka Mccormick WPtel: [address] [place], [place] [phone] [place] CANCELED 07/22/2019 Referral: Vikram Maguire WPtel: [phone] [facility] [address] [id number] [place] Referral Appointment Requested Instructions No Instructions Medical Equipment No Medical Equipment data Health Concerns Section Health Concerns data not found Goals Section Goals data not found Interventions Section Interventions data not found Health Status Evaluations/Outcomes Section Health Status Evaluations/Outcomes data not found Advance Directives No Advance Directive data
--- OUTSIDE RECORDS SUMMARY | 2021-02-15 18:54 | XMS REPORT | CCD ---
Author Author Erica Mccormick D.O. Organization ERICKA MCCORMICK DO [facility] Address [address] [place] [address] Phone Care Team Providers Care Bagel Maker Name Role Phone PP Unavailable CCM Unavailable Summary Purpose Interface Exchange Insurance Providers Payer name Policy type / Coverage type Covered democrat ID Effective Begin Date Effective End Date WPS MEDICARE PART B [place] Medicare Part B [id number] Unknown Unknown [employer]UE [place] [place] MEDIC[place] SUPP Medicare Part B X [id number] Unknown Unknown Family History Family History data not found Social History Social History Element Codes Description Effective Dates Marital status Unknown 09/10/2019 Number of children Unknown 1 09/10/2019 Employment Unknown Retired 09/10/[address]: 7897621 Former smoker quit 201109/10/[address]: 271353 Currently drinks alcohol 09/09 Frequency of drinks SNOMED CT: 629756109 1-4 drinks per week Allergies, Adverse Reactions, [...] Fill Instructions paroxetine 20 mg tablet RxNorm: 5737475 1 Tablet(s) Oral QD 021 01/13/2021 Active paroxetine 20 mg tablet RxNorm: 1798137 1 Tablet(s) Oral QD 021 12/15/2020 Inactive MagOx 400 mg (241.3 mg magnesium) tablet RxNorm: 829213 Take 1 Tablet(s) Oral every night at bedtime with melatonin 11/23/2020 No Stop Date Active melatonin 3 mg tablet RxNorm: 879497 Take 1-2 Tablet(s) Oral every night at bedtime 11/18/2020 No Stop Date Active atorvastatin 40 mg tablet RxNorm: 590704 Take 1 Tablet( s) Oral every night at bedtime 11/10/2020 No Stop Date Active Plavix 75 mg tablet RxNorm: 079952 Take 1 Tablet(s) Oral QD No Stop Date Active trazodone 50 mg tablet RxNorm: 126061 Take 1-2 Tablet(s ) Oral QPM as needed for sleep 11/10/2020 11/22/2020 Inactive alprazolam 0.25 mg tablet RxNorm: 793683 1/2-1 Tablet(s ) Oral QPM as needed for sleep 08/03/2020 09/01/2020 Inactive alprazolam 0.25 mg tablet RxNorm: 945198 1/2-1 Tablet(s ) Oral QPM as needed for sleep 08/03/2020 08/02/2020 Inactive Aspirin Low Dose 81 mg tablet,delayed release RxNorm: 100542 1 Tablet(s) Oral QD 09/10/2019 No Stop Date Active losartan 25 mg tablet RxNorm: 500102 1 Tablet(s) Oral QD 09/10/2019 No Stop Date Active carvedilol 6.25 mg tablet RxNorm: 961812 1 Tablet(s) Oral two t imes a day 09/10/2019 11/09/2020 Inactive Fish Oil 1,000 mg (120 mg-180 mg) capsule RxNorm: 1 Caps ule(s) Oral QD 09/10/2019 11/25/2019 Inactive Medication Administered No Medication Administered data Immunizations No Immunization data Results Observation Observation Code Item Item Code Result Date S ervice Location COMPREHENSIVE METABOLIC 85610 AST 16 U/L 2019 Unknown COMPREHENSIVE METABOLIC 71380 ALT 12 U/L 2019 Unknown COMPREHENSIVE METABOLIC 61283 BUN 13 mg/dL 2019 Unknown COMPREHENSIVE METABOLIC 94936 ALBUMIN 4.1 g/dL 2019 Unknown COMPREHENSIVE METABOLIC 12183 CHLORIDE 96 mmol/L 2019 Unknown COMPREHENSIVE METABOLIC 18624 Bili Total 1.1 mg/dL 04/09 Unknown COMPREHENSIVE METABOLIC 34200 ALK PHOS 80 U/L 2019 Unknown COMPREHENSIVE METABOLIC 56038 SODIUM 131 mmol/L 04/09 Unknown COMPREHENSIVE METABOLIC 26919 CREATININE 0.76 mg/dL 03/24 Unknown COMPREHENSIVE METABOLIC 19732 CALCIUM 9.0 mg/dL 2019 Unknown COMPREHENSIVE METABOLIC 26399 POTASSIUM 4.2 mmol/L 04/09 Unknown COMPREHENSIVE METABOLIC 69028 Total Protein 6.8 g/dL Unknown COMPREHENSIVE METABOLIC 37803 Glucose 101 mg/dL 2019 Unknown COMPREHENSIVE METABOLIC 04535 Bicarbonate 25 mmol/L 03/24 Unknown COMPREHENSIVE METABOLIC 15917 AGAP 10 mmol/L 2019 Unknown GFR CALC [id number] GFR Non Afr Amr >60 mL/min 04/09/2020 Un known GFR CALC [id number] GFR Afr Amr >60 mL/min 04/09/2020 Unknow n GAMMA GLUTAMYL TRANSFERASE 54740 GGT 19 U/L Unknown COMPLETE BLOOD COUNT 1073284 WBC 6.3 10e9/L 04/07/20 20 Unknown COMPLETE BLOOD COUNT [id number] RBC 4.36 10e12/L 2019 Unknown COMPLETE BLOOD COUNT [id number] HEMOGLOBIN 15.2 g/dL 04/07/20 20 Unknown COMPLETE BLOOD COUNT [id number] HEMATOCRIT 43.8 % 04/07/20 20 Unknown COMPLETE BLOOD COUNT [id number] MCV 100.5 fL 0 Unknown COMPLETE BLOOD COUNT [id number] MCH 34.9 pg 0 Unknown COMPLETE BLOOD COUNT 7333459 MCHC 34.7 g/dL 0 Unknown COMPLETE BLOOD COUNT 1408890 PLATELET COUNT 254 10e9/L Unknown COMPLETE BLOOD COUNT 0167160 Mean Plt Volume 9.9 fL Unknown COMPLETE BLOOD COUNT 9274626 Neut Auto 63.3 % 0 Unknown COMPLETE BLOOD COUNT 0735907 Lymph Auto 24.5 % 04/07/20 20 Unknown COMPLETE BLOOD COUNT [id number] [place] Auto 8.4 % 0 Unknown COMPLETE BLOOD COUNT 5843411 RDW 12.8 % 0 Unknown COMPLETE BLOOD COUNT 4612564 Eos Auto 3.2 % 0 Unknown COMPLETE BLOOD COUNT 6620098 Baso Auto 0.6 % 0 Unknown COMPLETE BLOOD COUNT 9056634 Neutrophil Abs 3.99 10e9/L Unknown COMPLETE BLOOD COUNT [id number] Lymphocyte Abs 1.54 10e9/L Unknown COMPLETE BLOOD COUNT 0745625 Monocyte Abs 0.53 10e9/L 03/24 Unknown COMPLETE BLOOD COUNT [id number] Eosinophil Abs 0.20 10e9/L Unknown COMPLETE BLOOD COUNT [id number] RDW-SD 47.6 fL 0 Unknown COMPLETE BLOOD COUNT [id number] Basophil Abs 0.04 10e9/L 03/24 Unknown VITAMIN B 12 91019 VITAMIN B12 661 pg/mL 04/07/2020 Unkn own LIPID GROUP 77244 Cholesterol 168 mg/dL 09/30/2019 Unkno wn LIPID GROUP 32183 Triglyceride 141 mg/dL 09/30/2019 Unkn own LIPID GROUP 99677 HDL CHOLESTEROL 66 mg/dL 09/30/2019 U nknown LIPID GROUP 89879 Chol/HDL Ratio 2.55 ratio 09/30/2019 U nknown LIPID GROUP 80304 NON-HDL Chol 102 mg/dL 09/30/2019 Unkn own LIPID GROUP 22261 LDL Cholesterol 74 mg/dL 09/30/2019 U nknown FREE T4 10415 T4 Free 0.76 ng/dL 09/30/2019 Unknown THYROID STIMULATING HORMONE 49017 TSH 2.186 uIU/mL 09/30/2019 Unknown GFR CALC 5778265 GFR Non Afr Amr >60 mL/min 09/30/2019 Un known GFR CALC 0602543 GFR Afr Amr >60 mL/min 09/30/2019 Unknow n COMPREHENSIVE METABOLIC 98610 AST 14 U/L 2019 Unknown COMPREHENSIVE METABOLIC 74410 ALT 11 U/L 2019 Unknown COMPREHENSIVE METABOLIC 43964 BUN 15 mg/dL 2019 Unknown COMPREHENSIVE METABOLIC 91213 ALBUMIN 4.0 g/dL 2019 Unknown COMPREHENSIVE METABOLIC 31940 CHLORIDE 96 mmol/L 2019 Unknown COMPREHENSIVE METABOLIC 54357 Bili Total 0.9 mg/dL 09/29 Unknown COMPREHENSIVE METABOLIC 84205 ALK PHOS 72 U/L 2019 Unknown COMPREHENSIVE METABOLIC 93773 SODIUM 132 mmol/L 09/29 Unknown COMPREHENSIVE METABOLIC 62186 CREATININE 0.73 mg/dL 11/2019 Unknown COMPREHENSIVE METABOLIC 23482 CALCIUM 9.1 mg/dL 2019 Unknown COMPREHENSIVE METABOLIC 99707 POTASSIUM 4.6 mmol/L 09/29 Unknown COMPREHENSIVE METABOLIC 74800 Total Protein 6.4 g/dL Unknown COMPREHENSIVE METABOLIC 69068 Glucose 97 mg/dL 2019 Unknown COMPREHENSIVE METABOLIC 36844 Bicarbonate 25 mmol/L 11/2019 Unknown COMPREHENSIVE METABOLIC 59680 AGAP 11 mmol/L 2019 Unknown COMPLETE BLOOD COUNT 8914375 WBC 5.3 10e9/L 09/30/19 20 Unknown COMPLETE BLOOD COUNT 0783954 RBC 4.16 10e12/L 2019 Unknown COMPLETE BLOOD COUNT 2693721 HEMOGLOBIN 14.1 g/dL 09/30/19 20 Unknown COMPLETE BLOOD COUNT 1606823 HEMATOCRIT 42.6 % 09/30/19 20 Unknown COMPLETE BLOOD COUNT 2654537 MCV 102.4 fL 0 Unknown COMPLETE BLOOD COUNT 1115726 MCH 33.9 pg 0 Unknown COMPLETE BLOOD COUNT 2971286 MCHC 33.1 g/dL 0 Unknown COMPLETE BLOOD COUNT 2567447 PLATELET COUNT 273 10e9/L 11/2019 Unknown COMPLETE BLOOD COUNT 5696311 Mean Plt Volume 9.4 fL 11/2019 Unknown COMPLETE BLOOD COUNT 1511100 Neut Auto 57.3 % 0 Unknown COMPLETE BLOOD COUNT 1536812 Lymph Auto 29.3 % 09/30/19 20 Unknown COMPLETE BLOOD COUNT 8151169 [place] Auto 7.6 % 0 Unknown COMPLETE BLOOD COUNT 6307423 RDW 13.8 % 0 Unknown COMPLETE BLOOD COUNT 5247003 Eos Auto 4.5 % 0 Unknown COMPLETE BLOOD COUNT 9105142 Baso Auto 1.3 % 0 Unknown COMPLETE BLOOD COUNT 2759763 Neutrophil Abs 3.04 10e9/L Unknown COMPLETE BLOOD COUNT 5748300 Lymphocyte Abs 1.55 10e9/L Unknown COMPLETE BLOOD COUNT 9632949 Monocyte Abs 0.40 10e9/L 11/2019 Unknown COMPLETE BLOOD COUNT 7748290 Eosinophil Abs 0.24 10e9/L Unknown COMPLETE BLOOD COUNT 7717726 RDW-SD 50.7 fL 0 Unknown COMPLETE BLOOD COUNT 6397229 Basophil Abs 0.07 10e9/L 0 11/2019 Unknown Procedures Procedure Codes Date ROUTINE VENIPUNCTURE CPT-4: 27079 07/20/2020 COMPREHEN METABOLIC PANEL CPT-4: 58333 07/20/2020 ASSAY OF FREE THYROXINE CPT-4: 98912 07/20/2020 ASSAY THYROID STIM HORMONE CPT-4: 89319 07/20/2020 COMPLETE CBC W/AUTO DIFF WBC CPT-4: 64819 07/20/2020 RBC SED RATE AUTOMATED CPT-4: 29594 07/20/2020 URINALYSIS NONAUTO W/O SCOPE CPT-4: 25935 04/30/2020 URINE CULTURE/ COLONY COUNT CPT-4: 61798 04/30/2020 ROUTINE VENIPUNCTURE CPT-4: 53106 04/07/2020 COMPLETE CBC W/AUTO DIFF WBC CPT-4: 99917 04/07/2020 VITAMIN B-12 CPT-4: 98897 04/07/2020 ASSAY OF GGT CPT-4: 39684 04/07/2020 ROUTINE VENIPUNCTURE CPT-4: 61813 09/30/2019 ASSAY OF FREE THYROXINE CPT-4: 26515 09/30/2019 ASSAY THYROID STIM HORMONE CPT-4: 42260 09/30/2019 COMPREHEN METABOLIC PANEL CPT-4: 91093 09/30/2019 COMPLETE CBC W/AUTO DIFF WBC CPT-4: 13626 09/30/2019 LIPID PANEL CPT-4: 64023 09/30/2019 Vital Signs Date Vital 11/10/2020 Blood Pressure 1: 130/74 Code: 8480-6 Heart Rate 1: 56 bpm Respiratory Rate: 20 bpm SpO2: 98% Temperature: 36.3 (C) / 97.4 (F) We ight: 85 lbs Code: 98143-3 07/29/2020 Blood Pressure 1: 121/65 Code: 8480-6 BMI: 14.3 Code: 12654-6 Heart Rate 1: 58 bpm Height: 5'5" Code: 8302-2 Respiratory Rate: 15 bpm SpO2: 98% Temperature: 36.9 (C) / 98.4 (F) Weight: 86 lbs Code: 49659-5 07/20/2020 Blood Pressure 1: 123/69 Code: 8480-6 Heart Rate 1: 68 bpm Respiratory Rate: 15 bpm SpO2: 99% Temperature: 36.6 (C) / 97.8 (F) We ight: 83 lbs Code: 97507-9 04/30/2020 Blood Pressure 1: 128/82 Code: 8480-6 Heart Rate 1: 68 bpm Respiratory Rate: 20 bpm SpO2: 95% Temperature: 36.5 (C) / 97.7 (F) We ight: 91 lbs Code: 35961-2 04/09/2020 Blood Pressure 1: 130/78 Code: 8480-6 Heart Rate 1: 68 bpm Respiratory Rate: 20 bpm SpO2: 99% Temperature: 36.3 (C) / 97.4 (F) We ight: 90 lbs Code: 12615-7 11/22/2019 Temperature: 36.3 (C) / 97.3 (F) 09/10/2019 Blood Pressure 1: 128/72 Code: 8480-6 BMI: 15.6 Code: 65702-2 Heart Rate 1: 68 bpm Height: 5'5" Code: 8302-2 Respiratory Rate: 20 bpm SpO2: 97% Temperature: 36.6 (C) / 97.9 (F) Weight: 94 lbs Code: 10772-2 Functional Status No Functional Status data Reason [...] EST Diagnosis: Edema[ICD10: R60.9] Ericka MCCORMICK DO [facility] CPT-4: 73543 12/21/2020 ([id number]) OFFICE/OUTPATIENT VISIT EST Diagnosis: Coronary artery disease[ICD10: I25.10] Diagnosis: Essential (primary) hypertension[ICD10: I10] Diagnosis: Stress reaction[ICD10: F43.0] Diagnosis: Insomnia[ICD10: G47.00] Diagnosis: Pulmonary nodule[ICD10: R91.1] Ericka MCCORMICK [facility] CPT-4: 30097 11/10/2020 ([id number]) NO CHARGE Diagnosis: Mass of upper lobe of right lung[ICD10: R91.8] Ericka MCCORMICK [facility] CPT-4: 24429 07/29/2020 ([id number]) OFFICE/OUTPATIENT VISIT EST Diagnosis: Fatigue[ICD10: R53.83] Diagnosis: Lymphadenopathy of head and neck[ICD10: R59.1] Diagnosis: Weight loss, non-intentional[ICD10: R63.4] Diagnosis: History of melanoma[ICD10: Z85.820] Diagnosis: Skin lesion[ICD10: L98.9] Sara Memoaure NUNEZ [facility] CPT-4: 67554 07/20/2020 ([id number]) OFFICE/OUTPATIENT VISIT EST Diagnosis: Urinary tract infection[ICD10: N39.0] Meena MCCORMICK [facility] CPT-4: 23564 04/30/2020 ([id number]) OFFICE/OUTPATIENT VISIT EST Diagnosis: Dizziness[ICD10: R42] Diagnosis: Depressed mood with feeling of loneliness[ICD10: F32.9] Diagnosis: Insomnia[ICD10: G47.00] Ericka CHANEL [facility] CPT-4: 47406 04/09/2020 ([id number]) NURSE/OUTPATIENT VISIT EST Diagnosis: Coronary artery disease[ICD10: I25.10] Diagnosis: Fatigue[ICD10: R53.83] Diagnosis: Essential (primary) hypertension[ICD10: I10] Ericka MCCORMICK [facility] CPT-4: 00498 04/07/2020 ([id number]) OFFICE/OUTPATIENT VISIT EST Diagnosis: Fatigue[ICD10: R53.83] Meena Li [facility] CPT-4: 39996 11/22/2019 ([id number]) NURSE/OUTPATIENT VISIT EST Diagnosis: Essential (primary) hypertension[ICD10: I10] Diagnosis: Coronary artery disease[ICD10: I25.10] Diagnosis: Encounter for general adult medical examination with abnormal findings[ICD10: Z00.01] Ericka Garcíacurtispromise MCCORIMCK [facility] CPT-4: 04181 09/30/2019 ([id number]) OFFICE/OUTPATIENT VISIT NEW Diagnosis: Essential (primary) hypertension[ICD10: I10] Diagnosis: Coronary artery disease[ICD10: I25.10] Diagnosis: Aortic valve stenosis with insufficiency[ICD10: I35.2] Ericka Sanchezpromise MCCORMICK [facility] CPT-4: 19545 09/10/2019 Plan of Care Planned Activity Notes [...] : F43.0 11/10/2020 Appointment: Ericka Mccormick WPtel: [address] [place], [place] [id number] FOLLOW UP 11/10/2020 Patient Education: trazodone- Optimize[employer] Coupon [phone] [email or web address] Completed 11/10/2020 Visit Diagnosis Plan: Mass of upper lobe of right lung Discussion: CT scan of lung results discussed with patient and told this looks like cancer Agrees to see pulmonology to see if will be amenable to bronchoscopy to get cells/washings ICD-9 : 786.6 ICD-10 : R91.8 07/29/2020 Appointment: [facility] [phone] [facility] [facility] 07/29/2020 Care Plan: Referral Order SNOMED-CT : 30 2042659 Pending 07/29/2020 Care Plan: CT SFT TSUE NCK W/O & W/DYE L OILA : 13451-9 Pending 07/21/2020 Visit Diagnosis Plan: Fatigue Discussion: [...] 07/20/2020 Appointment: Sara Aguila WPtel: [phone] [facility] ACUTE ILLNESS 07/20/2020 Patient Education: Patient Medication [...] ICD-10 : N39.0 04/30/2020 Appointment: Meena Li [address] [place], [place] [id number] ACUTE ILLNESS 04/30/2020 Appointment: Meena Li [address] [place], [place] [phone] 04/21/2020 1020---patient needed seen fo r appointment [...] : F32.9 04/09/2020 Appointment: Ericka Mccormick WPtel: [address] [place] [address] [place] FOLLOW UP 04/09/2020 Care Plan: COMPREHEN METAB[place] : 58546-9 Pending 04/09/2020 Appointment: Ericka Mccormick WPtel: [address] [place] [address] [place] LAB 04/07/2020 Visit Diagnosis Plan: Fatigue Discussion: no other sym ptoms other than fatigue for 4 weeks so will update labs. order sent to [facility] [place] [place] lab for blood work and ua with c&s. instructed to call office with new or worsening symptoms. ICD-9 : 780.79 ICD-10 : R53.83 11/22/2019 Appointment: Meena Li [address] [place], [place] [id number] [address] TELEMEDICINE 11/22/2019 Appointment: Ericka Mccormick WPtel: [address] [place] [address] [place] LAB 09/30/2019 Visit Diagnosis Plan: Coronary [...] : I10 09/10/2019 Appointment: Ericka Mccormick WPtel: [address] [place], [place] [phone] [place] NEW PATIENT 09/10/2019 Patient Education: carvedilol- OptimizeRX Elvin [phone] [email or web address] Completed 09/10/2019 Appointment: Ericka Mccormick WPtel: [phone] [facility] [place] RESCHEDULED 08/20/2019 Appointment: Ericka Mccormick WPtel: [address] [place], [place] [phone] [place] CANCELED 07/22/2019 Referral: Vikram Maguire WPtel: [phone] [facility] [address] [id number] [place] Referral Appointment Requested Instructions No Instructions Medical Equipment No Medical Equipment data Health Concerns Section Health Concerns data not found Goals Section Goals data not found Interventions Section Interventions data not found Health Status Evaluations/Outcomes Section Health Status Evaluations/Outcomes data not found Advance Directives No Advance Directive data
--- NOTE | 2021-02-15 19:10 | ED Fall/Injury ---
General Stated Complaint: R KNEE PAIN - FALL Source: patient Exam Limitations: no limitations History of Present Illness Date Seen by Provider: Feb 15, 2021 Time Seen by Provider: 19:00 Initial Comments 80yoF with PMH of CAD with stenting on Plavix was in the kitchen around 16:30 and reached for something behind her and then fell straight down onto right knee vs wooden floor. Didn't hit her head or have LOC. Pain is 10/10, did not take any meds. Worse with movement and better with rest. Friend carried her to a car to get her here since she cannot put weight on it. Allergies and Home Medications Allergies Coded Allergies: Penicillins (Verified Allergy, Unknown, 05/08/20) hydrocodone (Verified Allergy, Unknown, 10/13/20) Patient Home Medication List Home Medication List Reviewed: Yes Acetaminophen (Tylenol Extra Strength) 500 Mg Tablet, 500 MG PO Q8H PRN for PAIN-MILD (1-4), (Reported) Entered as Reported by: ARTEM BLUM on 12/09/20 144 Aspirin (Aspirin EC) 81 Mg Tablet.dr, 81 MG PO DAILY, (Reported) Entered as Reported by: ARTEM BLUM on 12/09/20 144 Atorvastatin Calcium (Atorvastatin Calcium) 40 Mg Tablet, 40 MG PO 1200 W/MEAL, (Reported) Entered as Reported by: ARTEM BLUM on 12/09/20 144 Clopidogrel Bisulfate (Clopidogrel) 75 Mg Tablet, 75 MG PO DAILY, (Reported) Entered as Reported by: ARTEM BLUM on 12/09/20 144 Diclofenac Sodium (Arthritis Pain) 100 Gm Gel..gram., 2 GM TP QID PRN for PAIN- MODERATE (5-7) Prescribed by: RADHA SCHMIDT on 12/17/201816 Losartan Potassium (Losartan Potassium) 50 Mg Tablet, 50 MG PO 1800 W/MEAL, (Reported) Entered as Reported by: ARTEM BLUM on 12/09/20 144 Pantoprazole Sodium (Pantoprazole Sodium) 40 Mg Tablet.dr, 40 MG PO DAILY Prescribed by: POPEYE ERAZO on 12/12/20 162 Paroxetine HCl (Paroxetine HCl) 10 Mg Tablet, 10 MG PO DAILY Prescribed by: POPEYE ERAZO on 12/12/20 162 Permethrin (Permethrin) 60 Gm Cream..g., 60 GM TP ONCE Prescribed by: RADHA SCHMIDT on 12/17/20 1817 Sucralfate (Sucralfate) 1 Gm Tablet, 1 GM PO ACHS Prescribed by: POPEYE ERAZO on 12/12/20 1623 [Balance Of Nature] , 1 EACH PO DAILY, (Reported) Entered as Reported by: ARTEM BLUM on 12/09/20 1441 Review of Systems Review of Systems Constitutional: No chills, No fever Eyes: Denies Blurred Vision Ears, Nose, Mouth, Throat: no symptoms reported Respiratory: no symptoms reported Cardiovascular: no symptoms reported Gastrointestinal: no symptoms reported Genitourinary: no symptoms reported Musculoskeletal: joint pain Skin: no symptoms reported Psychiatric/Neurological: No Symptoms Reported All Other Systems Reviewed Negative Unless Noted: Yes Past Gdyyftg-Ugpbri-Bczwot Hx Patient Social History Tobacco Use?: No Immunizations Up To Date Tetanus Booster (TDap): Unknown First/Initial COVID19 Vaccinat: 07/19/18 Second COVID19 Vaccination Sivakumar: 07/19/18 Third COVID19 Vaccination Date: 07/19/18 Seasonal Allergies Seasonal Allergies: No Past Medical History Surgery/Hospitalization HX: appendectomy, tonsilectomy, hysterectomy, varicose vein stripping Surgeries: Yes (VARICOSE VEIN STRIPPING) Appendectomy, Coronary Stent, Hysterectomy, Tonsillectomy Respiratory: Yes (Pulmonary lesion) Currently Using CPAP: No Currently Using BIPAP: No Cardiac: Yes ("WEAK HEART MUSCLE") Coronary Artery Disease Neurological: No Female Reproductive Disorders: Denies 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 oz. kg; 15.00 BMI Method: General Appearance: WD/WN, no apparent distress HEENT: PERRL/EOMI, normal ENT inspection, TMs normal, pharynx normal Neck: non-tender, full range of motion, supple, normal inspection Cardiovascular: regular rate, rhythm, no edema, no murmur Respiratory: chest non-tender, lungs clear, normal breath sounds, no respiratory distress, no accessory muscle use Gastrointestinal: normal bowel sounds, non tender, soft; No distended, No guarding, No rebound Back: normal inspection, no CVA tenderness Extremities: swelling, other (Right knee swelling with bruising and hematoma, medial joint line tenderness more so than anywhere else, loss of range of motion but is able to gently flex and extend it, she does have her extensor mechanism intact, normal distal pulses and sensation, dorsiflexes and plantar flexes her foot without difficulty) Neurologic/Psychiatric: no motor/sensory deficits, alert, normal mood/affect, oriented x 3 Skin: normal color, warm/dry Lymphatic: no adenopathy Savery Coma Score Best Eye Response: (4) Open Spontaneously Best Verbal Response: (5) Oriented Best Motor Response: (6) Obeys Commands Savery Total: 15 Progress/Results/Core Measures Results/Orders My Orders Orders - BETSEY DEL RIO MD Acetaminophen Tablet (Tylenol Tablet) (02/15/21 19:30) Ct Extremity Lower Right Wo (02/15/21 20:09) Medications Given in ED Current Medications Medications Dose Ordered Sig/Murtaza Route Start Time Stop Time Status Last Admin Dose Admin Acetaminophen 1,000 mg ONCE ONCE PO 02/15/21 19:30 02/15/21 19:31 DC 02/15/21 19:29 1,000 MG Vital Signs/I&O 02/15/21 19:00 Temp 36.8 Pulse 88 Resp 16 B/P (MAP) 142/65 (90) Pulse Ox 100 O2 Delivery Room Air Progress Progress Note : Progress Note 80-year-old female with above history coming in after mechanical fall with right knee pain. ABCs were intact, GCS 15, vital stable on presentation. She never is sure she fully fell or if she just hit her knee on a chair. Did not hit her head, did not pass out, no neck or back pain. Did not believe advanced imaging of her head and cervical spine are warranted at this time. X-ray of the right knee ordered. Given Tylenol for pain as she does not want something stronger at this time. X-ray my interpretation with the patella fracture in the inferior pole and possible medial plateau fracture of the tibia. CT then ordered which only showed the patella fracture. She was placed in a knee immobilizer. I contacted Dr. Hendricks orthopedics and he recommended she come in for potential surgery. I then contacted Dr. Mccormick who will admit the patient as inpatient status. Given her h/o CAD also consulted Dr. Bustillos. Departure Impression Primary Impression: Right patella fracture Qualified Codes: S82.031A - Displaced transverse fracture of right patella, initial encounter for closed fracture Disposition: ADMITTED INPATIENT Condition: Stable Departure-Patient Inst. Referrals: ROBSON MCCORMICK DO (PCP/Family) Primary Care Physician BETSEY DEL RIO MD Feb 15, 2021 19:10
[2021-02-15] MEDS ORDERED: ACETAMINOPHEN 500 MG TAB (TYLENOL) PO ONE (19:30)
--- NOTE | 2021-02-15 19:55 | Diagnostic Imaging Report ---
INDICATION: Knee pain. No relevant comparison available. FINDINGS: There is diffuse soft tissue swelling demonstrated about the knee predominantly in the prepatellar soft tissues. There is a fracture off of the inferior pole of the patella which is inferiorly displaced. There additionally appears to be a fracture involving the most medial aspect of the medial tibial plateau. This is demonstrated on only the oblique view. There is no significant depression. The bones are diffusely osteopenic. There is no significant knee joint effusion. There is advanced atherosclerosis. IMPRESSION: 1. Displaced fracture of the inferior pole of the patella with prepatellar soft tissue swelling. 2. There is also a questioned nondisplaced and nondepressed fracture involving the most medial aspect of the medial and tibial plateau. Dictated by: Dictated on workstation # [id number]
--- NOTE | 2021-02-15 20:55 | Diagnostic Imaging Report ---
PROCEDURE: CT right lower extremity without contrast. TECHNIQUE: Axially acquired CT was obtained through the right lower extremity without intravenous contrast. Coronal and sagittal reformations were also performed. Auto Exposure Controls were utilized during the CT exam to meet ALARA standards for radiation dose reduction. INDICATION: Assess for tibial plateau fracture. CORRELATION is made with prior radiographs from earlier in the same day. FINDINGS: The displaced and avulsive fracture off the inferior pole of the patella with overlying prepatellar soft tissue swelling is unchanged. By CT, there is no convincing evidence of a tibial plateau fracture. The lucency on radiographs appears to be secondary to marked multifocal low density secondary to what is likely low bone mineral density and osteoporosis. No cortical disruption within the femur, or the visualized portion of the tibia or fibula identified. There is no significant knee joint effusion. The regional soft tissues otherwise are unremarkable. Note is made of vascular calcifications. IMPRESSION: 1. Unchanged avulsed fracture off the lower pole of the patella. 2. No additional fracture is evident. Lucency on prior radiographs appears secondary to marked focal regions of low bone mineral density and loss of bone matrix likely secondary to osteoporosis. 3. No knee joint effusion. Dictated by: Dictated on workstation # [id number]
[2021-02-15 21:53] VITALS: BP 142/65
[2021-02-15] MEDS ORDERED: RT-ALBUTEROL SULF 2.5 MG/3 ML PRE-MIX VIAL INH PRN (22:00)
[2021-02-15] MEDS: ACETAMINOPHEN 500 MG TAB (TYLENOL) PO PRN (22:37)
[2021-02-15] MEDS: LACTATED RINGERS 1,000 ML IV SCH (22:37)
[2021-02-15 22:42] LABS: BASOPHILS % (AUTO) 0 % (0-10); EOSINOPHILS % (AUTO) 0 % (0-10); HEMATOCRIT 26 % (35-52); HEMOGLOBIN 8.2 g/dL (11.5-16.0); LYMPHOCYTES # (AUTO) 0.6 10^3/uL (1.0-4.0); LYMPHOCYTES % (AUTO) 7 % (12-44); MEAN CORPUSCULAR HEMOGLOBIN 26 pg (25-34); MEAN CORPUSCULAR HGB CONC 31 g/dL (32-36); MEAN CORPUSCULAR VOLUME 84 fL (80-99); MEAN PLATELET VOLUME 9.3 fL (9.0-12.2); MONOCYTES # (AUTO) 0.5 10^3/uL (0.0-1.0); MONOCYTES % (AUTO) 5 % (0-12); NEUTROPHILS # (AUTO) 8.1 10^3/uL (1.8-7.8); NEUTROPHILS % (AUTO) 88 % (42-75); PLATELET COUNT 270 10^3/uL (130-400); WHITE BLOOD COUNT 9.2 10^3/uL (4.3-11.0)
[2021-02-15 22:52] LABS: ALBUMIN 3.9 GM/DL (3.2-4.5)
[2021-02-15 22:54] LABS: CALCIUM 9.2 MG/DL (8.5-10.1)
[2021-02-15 22:55] LABS: TOTAL PROTEIN 6.5 GM/DL (6.4-8.2)
[2021-02-15 22:57] LABS: BILIRUBIN,TOTAL 0.4 MG/DL (0.1-1.0)
[2021-02-15 22:59] LABS: CREATININE SERUM 0.75 MG/DL (0.60-1.30)
[2021-02-15 23:03] LABS: HYPOCHROMASIA MODERATE; LYMPHOCYTES % (MANUAL) 5 %; MICROCYTOSIS MODERATE; MONOCYTES % (MANUAL) 1 %; NEUTROPHILS % (MANUAL) 94 %
[2021-02-15 23:04] LABS: TARGET CELLS SLIGHT
[2021-02-16] VITALS (13 sets, daily range): BP systolic 111–155; BP diastolic 54–94
[2021-02-16] MEDS: ACETAMINOPHEN 500 MG TAB (TYLENOL) PO PRN (06:42)
--- NOTE | 2021-02-16 07:54 | History & Physical ---
SHERRY MORALES 02/16/21 0754: History of Present Illness History of Present Illness Reason for visit/HPI 80yo F with history of CAD presents with trauma to her R knee yesterday. Pt reports losing balance while turning around in her kitchen and hit her knee on a wooden drawer. Pt then went to ED where xray showed patella fracture.Denies any trauma to head or loss of consciousness. Pain worse upon movement and pressure. Minimal improvement with Tylenol. Pt rates pain 7/10 today. Denies any numbness, tingling, fever, chills, nausea, vomiting, or diarrhea. Expected surgery by Dr. Hendricks today. Date of Admission Feb 15, 2021 at 20:21 Date Seen by a Provider: Feb 16, 2021 Time Seen by a Provider: 07:54 I consulted on this patient on 02/16/21 07:47 Attending Physician Robson Mccormick DO Admitting Physician Robson Mccormick DO Consult Allergies and Home Medications Allergies Coded Allergies: Penicillins (Verified Allergy, Mild, Skin rash Several years ago, 02/16/21) hydrocodone (Verified Allergy, Unknown, The patient states that the hydrocodone made her feel "goofy, 02/16/21) Patient Home Medication List Aspirin (Aspirin EC) 81 Mg Tablet.dr, 81 MG PO DAILY, (Reported) Entered as Reported by: ARTEM BLUM on 12/09/201440 Last Action: Reviewed Aspirin (Aspirin EC) 81 Mg Tablet.dr, 162 MG PO HS PRN for RESTLESSNESS, (Reported) Entered as Reported by: ARTEM BLUM on 02/16/21945 Last Action: Reviewed Clopidogrel Bisulfate (Clopidogrel) 75 Mg Tablet, 75 MG PO 1200, (Reported) Entered as Reported by: ARTEM BLUM on 12/09/201440 Last Action: Reviewed Pantoprazole Sodium (Pantoprazole Sodium) 20 Mg Tablet., 20 MG PO BID WITH MEALS, (Reported) Entered as Reported by: ARTEM BLUM on 02/16/21945 Last Action: Reviewed [Balance Of Nature] , 1 EACH PO DAILY, (Reported) Entered as Reported by: ARTEM BLUM on 12/09/201440 Last Action: Reviewed Discontinued Medications Acetaminophen (Tylenol Extra Strength) 500 Mg Tablet, 500 MG PO Q8H PRN for PAIN-MILD (1-4), (Reported) Discontinued Reason: No Longer Taking Entered as Reported by: ARTEM BLUM on 12/09/201440 Last Action: Discontinued Atorvastatin Calcium (Atorvastatin Calcium) 40 Mg Tablet, 40 MG PO 1200 W/MEAL, (Reported) Discontinued Reason: No Longer Taking Entered as Reported by: ARTEM BLUM on 12/09/201440 Last Action: Discontinued Diclofenac Sodium (Arthritis Pain) 100 Gm Gel..gram., 2 GM TP QID PRN for PAIN- MODERATE (5-7) Discontinued Reason: No Longer Taking Prescribed by: RADHA SCHMIDT on 12/17/201816 Last Action: Discontinued Losartan Potassium (Losartan Potassium) 50 Mg Tablet, 50 MG PO 1800 W/MEAL, (Reported) Discontinued Reason: No Longer Taking Entered as Reported by: ARTEM BLUM on 12/09/201440 Last Action: Discontinued Pantoprazole Sodium (Pantoprazole Sodium) 40 Mg Tablet.dr, 40 MG PO DAILY Discontinued Reason: No Longer Taking Prescribed by: POPEYE ERAZO on 12/12/201622 Last Action: Discontinued Paroxetine HCl (Paroxetine HCl) 10 Mg Tablet, 10 MG PO DAILY Discontinued Reason: No Longer Taking Prescribed by: POPEYE ERAZO on 12/12/201622 Last Action: Discontinued Permethrin (Permethrin) 60 Gm Cream..g., 60 GM TP ONCE Discontinued Reason: No Longer Taking Prescribed by: RADHA SCHMIDT on 12/17/201816 Last Action: Discontinued Sucralfate (Sucralfate) 1 Gm Tablet, 1 GM PO ACHS Discontinued Reason: No Longer Taking Prescribed by: POPEYE ERAZO on 12/12/201622 Last Action: Discontinued Past Ogfuopp-Dvmxfn-Vqzmlf Hx Patient Social History Tobacco Use?: No Use of E-Cig and/or Vaping dev: No Substance use?: No Alcohol Use?: Yes Alcohol type: Wine Alcohol Frequency: Couple times a week Pt feels they are or have been: No Immunizations Up To Date First/Initial COVID19 Vaccinat: UNKNOWN Second COVID19 Vaccination Sivakumar: 07/19/18 Tetanus Booster (TDap): Unknown Hepatitis A: Yes Hepatitis B: Yes Date of Pneumonia Vaccine: Dec 25, 2017 Seasonal Allergies Seasonal Allergies: No Current Status status: No status: No Advance Directives: Yes Advance Directive Location: Copy from prev record Communicates: Verbally Primary Language: Turkish Preferred Spoken Language: Turkish Is interpretation needed?: No Past Medical History Surgeries: Appendectomy, Coronary Stent, Hysterectomy, Tonsillectomy Currently Using CPAP: No Currently Using BIPAP: No 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 Sexually Transmitted Disease: No HIV/AIDS: No Blood Disorders: No Review of Systems Constitutional: No chills, No fever EENTM: No ear pain, No eye pain, No vision loss Respiratory: No cough, No short of breath, No wheezing Cardiovascular: No chest pain, No palpitations, No syncope Gastrointestinal: No abdominal pain, No nausea, No vomiting Genitourinary: No dysuria, No frequency, No incontinence Musculoskeletal: joint pain (R knee pain) Skin: lesions; No pruritus, No rash Psychiatric/Neurological: Denies Headache, Denies Numbness, Denies Tingling Physical Exam Vital Signs Vital Signs - First Documented 02/15/21 02/15/21 19:00 21:53 Temp 36.8 Pulse 88 Resp 16 B/P (MAP) 142/65 (90) Pulse Ox 100 O2 Delivery Room Air FiO2 21 Capillary Refill : Less Than 3 Seconds Height, Weight, BMI Height: '" Weight: lbs. oz. kg; 14.67 BMI Method: General Appearance: No Apparent Distress, Thin HEENT: PERRL/EOMI Neck: Non Tender, Supple Respiratory: Chest Non Tender, Lungs Clear, Normal Breath Sounds, No Accessory Muscle Use, No Respiratory Distress Cardiovascular: Regular Rate, Rhythm Gastrointestinal: Non Tender, Soft Extremity: Other (R Knee patellar fracture) Neurologic/Psychiatric: Alert, Oriented x3, Normal Mood/Affect Skin: Warm/Dry Assessment/Plan Assessment and Plan 1. R Patellar Fracture--NPO, Dr. Hendricks expected to perform surgery today, will monitor H&H 2. H/o CAD--held plavix 3. H/o GI Ulcer--protonix 4. H/o Pulmonary Lesion--follows with oncology Admission Diagnosis Admission Status: Inpatient Order (span 2 midnights) ROBSON MCCORMICK DO 02/16/21 0107: Allergies and Home Medications Allergies Coded Allergies: Penicillins (Verified Allergy, Mild, Skin rash Several years ago, 02/16/21) hydrocodone (Verified Allergy, Unknown, The patient states that the hydrocodone made her feel "goofy, 02/16/21) Patient Home Medication List Home Medication List Reviewed: Yes Aspirin (Aspirin EC) 81 Mg Tablet.dr, 81 MG PO DAILY, (Reported) Entered as Reported by: ARTEM BLUM on 12/09/201440 Last Action: Reviewed Aspirin (Aspirin EC) 81 Mg Tablet.dr, 162 MG PO HS PRN for RESTLESSNESS, (Reported) Entered as Reported by: ARTEM BLUM on 02/16/21945 Last Action: Reviewed Clopidogrel Bisulfate (Clopidogrel) 75 Mg Tablet, 75 MG PO 1200, (Reported) Entered as Reported by: ARTEM BLUM on 12/09/201440 Last Action: Reviewed Pantoprazole Sodium (Pantoprazole Sodium) 20 Mg Tablet.dr, 20 MG PO BID WITH MEALS, (Reported) Entered as Reported by: ARTEM BLUM on 02/16/21945 Last Action: Reviewed [Balance Of Nature] , 1 EACH PO DAILY, (Reported) Entered as Reported by: ARTEM BLUM on 12/09/201440 Last Action: Reviewed Discontinued Medications Acetaminophen (Tylenol Extra Strength) 500 Mg Tablet, 500 MG PO Q8H PRN for PAIN-MILD (1-4), (Reported) Discontinued Reason: No Longer Taking Entered as Reported by: ARTEM BLUM on 12/09/201440 Last Action: Discontinued Atorvastatin Calcium (Atorvastatin Calcium) 40 Mg Tablet, 40 MG PO 1200 W/MEAL, (Reported) Discontinued Reason: No Longer Taking Entered as Reported by: ARTEM BLUM on 12/09/201440 Last Action: Discontinued Diclofenac Sodium (Arthritis Pain) 100 Gm Gel..gram., 2 GM TP QID PRN for PAIN- MODERATE (5-7) Discontinued Reason: No Longer Taking Prescribed by: RADHA SCHMIDT on 12/17/201816 Last Action: Discontinued Losartan Potassium (Losartan Potassium) 50 Mg Tablet, 50 MG PO 1800 W/MEAL, (Reported) Discontinued Reason: No Longer Taking Entered as Reported by: ARTEM BLUM on 12/09/201440 Last Action: Discontinued Pantoprazole Sodium (Pantoprazole Sodium) 40 Mg Tablet., 40 MG PO DAILY Discontinued Reason: No Longer Taking Prescribed by: POPEYE ERAZO on 12/12/201622 Last Action: Discontinued Paroxetine HCl (Paroxetine HCl) 10 Mg Tablet, 10 MG PO DAILY Discontinued Reason: No Longer Taking Prescribed by: POPEYE ERAZO on 12/12/201622 Last Action: Discontinued Permethrin (Permethrin) 60 Gm Cream..g., 60 GM TP ONCE Discontinued Reason: No Longer Taking Prescribed by: RADHA SCHMIDT on 12/17/201816 Last Action: Discontinued Sucralfate (Sucralfate) 1 Gm Tablet, 1 GM PO ACHS Discontinued Reason: No Longer Taking Prescribed by: POPEYE ERAZO on 12/12/201622 Last Action: Discontinued Assessment/Plan Admission Diagnosis Admission Status: Inpatient Order (span 2 midnights) Reason for Inpatient Admission: Patient will need surgery then monitored post-op Supervisory-Addendum Brief Verification & Attestation Participated in pt care: history, physical Personally performed: exam, history, supervision of care Care discussed with: Medical Student Procedures: n/a Results interpretation: Verified all documentation Patient seen and evaluated. Resting in bed with right knee immobilizer in place. Has only taken tylenol for pain so far. Had marking to chest wall yesterday for upcoming radiation to right lung mass. Cardiology is also seeing for cardiac clearance. Plan is for surgery today. Will need to monitor H/H post-op and will resume plavix/aspirin postop as well. Agree with rest of above exam/plan. SHERRY MORALES Feb 16, 2021 07:54 ROBSON MCCORMICK DO Feb 16, 2021 18:47
[2021-02-16] MEDS ORDERED: ONDANSETRON 4 MG/2 ML (SDV) Z0FRAN IVP PRN ×2 (08:45→13:45)
--- NOTE | 2021-02-16 08:54 | Consultation-Cardiology ---
HPI-Cardiology Cardiology Consultation Date of Consultation 02/16/21 Date of Admission Time Seen by Provider: 08:47 Indication: Coronary artery disease HPI 80-year-old lady with a history of coronary artery disease, hypertension hyperlipidemia. Sustained trauma to her right knee resulted in patellar fracture. She denied any chest pain or shortness of breath. He denied any pa lpitation, no syncope or near syncopal episodes. We were called for preoperative cardiac evaluation Home Medications & Allergies Allergies: Coded Allergies: Penicillins (Verified Allergy, Unknown, 05/08/20) hydrocodone (Verified Allergy, Unknown, 10/13/20) Home Medication List Reviewed: Yes EHB-Tqebyw-Ruyulq Hx Patient Social History Employed/Student: retired Type Used: Cigarettes 2nd Hand Smoke Exposure: No Recent Hopitalizations: No Have you traveled recently?: No Alcohol Use?: Yes Immunizations Up To Date Tetanus Booster (TDap): Unknown Date of Pneumonia Vaccine: Dec 25, 2017 Past Medical History Discussed below Family Medical History Family Medical Hx Noncontributory to her current condition Review of Systems-General Review of Systems Constitutional: No chills, No fever; malaise EENTM: see HPI; No ear pain, No eye pain, No vision loss Respiratory: see HPI; No cough, No dyspnea on exertion, No hemoptysis, No orthopnea, No phlegm, No short of breath, No stridor, No wheezing, No other Cardiovascular: see HPI; No chest pain, No edema, No Hx of Intervention, No palpitations, No syncope, No vascular heart diseas, No other Gastrointestinal: see HPI; No abdominal pain, No nausea, No vomiting Genitourinary: see HPI; No dysuria, No frequency, No incontinence Musculoskeletal: see HPI, joint pain (R knee pain) Skin: see HPI, lesions; No pruritus, No rash Psychiatric/Neurological: See HPI; Denies Headache, Denies Numbness, Denies Tingling All Other Systems Reviewed Negative Unless Noted: Yes Reviewed Test Results Reviewed Test Results Lab Laboratory Tests Test 02/15/21 22:34 Range/Units White Blood Count 9.2 4.3-11.0 10^3/uL Red Blood Count 3.15 L 3.80-5.11 10^6/uL Hemoglobin 8.2 L 11.5-16.0 g/dL Hematocrit 26 L 35-52 % Mean Corpuscular Volume 84 80-99 fL Mean Corpuscular Hemoglobin 26 25-34 pg Mean Corpuscular Hemoglobin Concent 31 L 32-36 g/dL Red Cell Distribution Width 18.2 H 10.0-14.5 % Platelet Count 270 130-400 10^3/uL Mean Platelet Volume 9.3 9.0-12.2 fL Immature Granulocyte % (Auto) 0 % Neutrophils (%) (Auto) 88 H 42-75 % Lymphocytes (%) (Auto) 7 L 12-44 % Monocytes (%) (Auto) 5 0-12 % Eosinophils (%) (Auto) 0 0-10 % Basophils (%) (Auto) 0 0-10 % Neutrophils # (Auto) 8.1 H 1.8-7.8 10^3/uL Lymphocytes # (Auto) 0.6 L 1.0-4.0 10^3/uL Monocytes # (Auto) 0.5 0.0-1.0 10^3/uL Eosinophils # (Auto) 0.0 0.0-0.3 10^3/uL Basophils # (Auto) 0.0 0.0-0.1 10^3/uL Immature Granulocyte # (Auto) 0.0 0.0-0.1 10^3/uL Neutrophils % (Manual) 94 % Lymphocytes % (Manual) 5 % Monocytes % (Manual) 1 % Hypochromasia MODERATE Microcytosis MODERATE Target Cells SLIGHT Sodium Level 134 L 135-145 MMOL/L Potassium Level 4.0 3.6-5.0 MMOL/L Chloride Level 103 98-107 MMOL/L Carbon Dioxide Level 21 21-32 MMOL/L Anion Gap 10 5-14 MMOL/L Blood Urea Nitrogen 21 H 7-18 MG/DL Creatinine 0.75 0.60-1.30 MG/DL Estimat Glomerular Filtration Rate 74 BUN/Creatinine Ratio 28 Glucose Level 124 H 70-105 MG/DL Calcium Level 9.2 8.5-10.1 MG/DL Corrected Calcium 9.3 8.5-10.1 MG/DL Total Bilirubin 0.4 0.1-1.0 MG/DL Aspartate Amino Transf (AST/SGOT) 14 5-34 U/L Alanine Aminotransferase (ALT/SGPT) 13 0-55 U/L Alkaline Phosphatase 69 40-136 U/L Total Protein 6.5 6.4-8.2 GM/DL Albumin 3.9 3.2-4.5 GM/DL Physical Exam Physical Exam Vital Signs Vital Signs - First Documented 02/15/21 02/15/21 19:00 21:53 Temp 36.8 Pulse 88 Resp 16 B/P (MAP) 142/65 (90) Pulse Ox 100 O2 Delivery Room Air FiO2 21 Capillary Refill : Less Than 3 Seconds Height, Weight, BMI Height: '" Weight: lbs. oz. kg; 14.67 BMI Method: General Appearance: No Apparent Distress, Thin Eyes: Bilateral Eye Normal Inspection, Bilateral Eye PERRL, Bilateral Eye EOMI HEENT: PERRL/EOMI Neck: Non Tender, Supple Respiratory: Chest Non Tender, Lungs Clear, Normal Breath Sounds, No Accessory Muscle Use, No Respiratory Distress Cardiovascular: Regular Rate, Rhythm Gastrointestinal: Non Tender, Soft Back: Normal Inspection, No CVA Tenderness, No Vertebral Tenderness Extremity: Other (R Knee patellar fracture) Neurologic/Psychiatric: Alert, Oriented x3, Normal Mood/Affect Skin: Warm/Dry Lymphatic: No Adenopathy A/P-Cardiology Admission Diagnosis Right patella fracture Coronary artery disease Anemia Peptic ulcer disease Assessment/Plan YearsRight patella fracture, Ortho were consulted Coronary artery disease, cardiac catheterization done by Dr. Daniel on October 13, 2020 showing severe stenosis in the mid LAD, had a long drug-eluting Mary stent 2.5 x 28 mm deployed to the mid LAD with excellent results. Has severe stenosis/95% stenosis in the mid right coronary artery, patient did not agree on the intervention at that time. No active chest pain, maintained on aspirin and Plavix Congestive heart failure, chronic compensated left ventricular systolic dysfunction, ejection fraction 40%, will repeat 2D echocardiogram Abnormal baseline EKG with left bundle branch block, chronic, repeat EKG today showed no change from baseline. History of peptic ulcer disease, GI bleed, maintained on PPI, managed by Dr. Kaiser Hypertension, has been on losartan as an outpatient History of syncope in September 2020, no further episodes were reported. Continue to monitor Pulmonary nodule, has been followed as an outpatient by primary care physician Extobaccoism, stopped smoking 2011. Anemia, monitor H&H Preoperative cardiac evaluation, patient is considered at high risk for per ioperative cardiovascular complication due to her extensive coronary artery disease and stents in the mid right coronary artery that was untreated in addition to the recent stent, she is maintained on aspirin and Plavix. Decision regarding the surgery, risk versus benefit is deferred to the surgeon AL BRITO MD Feb 16, 2021 08:54
[2021-02-16] MEDS ORDERED: CATHETER FLUSH 10 ML SYR IV PRN (09:15)
[2021-02-16] MEDS ORDERED: PANT20TA18 PO (09:46)
[2021-02-16] MEDS ORDERED: ASPI-1238 PO (09:46)
--- NOTE | 2021-02-16 09:47 | Consultation - Ortho ---
Consult - Ortho Subjective Date of Exam 02/16/21 Chief Complaint Fracture inferior pole right patella HPI/Events since last exam Mrs. Pantoja is an 80-year-old white female who bumped her right knee against the edge of a cabinet yesterday afternoon. She states she did not fall. She noted immediate swelling and pain and was not able to maintain weightbearing on the right lower extremity. She was seen in the emergency room where she was evaluated and x-rayed and noted to have a Fracture inferior pole of the right patella with displacement approximately 1.5 cm. Initially there was thought to be a fracture of the medial tibial plateau but CT scan showed no fracture involving the femur or the tibia. She was placed in a knee immobilizer. She lives at home. I recommended she be admitted for surgical treatment and help at home after discharge or placement in a [place] [facility] [place] facility or rehab. She denies any previous injury to the right knee.She does not use a cane or walker. Medical, Surgical History Reviewed and no additions or change Social History Reviewed and no additions or changes. Patient does live at home by herself Family History Reviewed and no additions or changes Review of Systems Reviewed and no additions or changes Allergies: Coded Allergies: Penicillins (Verified Allergy, Mild, Skin rash Several years ago, 02/16/21) hydrocodone (Verified Allergy, Unknown, The patient states that the hydrocodone made her feel "goofy, 02/16/21) Home Meds Active Scripts Diclofenac Sodium (Arthritis Pain) 100 Gm Gel..gram., 2 GM TP QID PRN for PAIN- MODERATE (5-7), #1 EA Prov:RADHA SCOTT MD 12/17/20 Permethrin (Permethrin) 60 Gm Cream..g., 60 GM TP ONCE, #1 EA 1 Refill Apply head to toe and leave on overnight. Repeat in 1 week if needed. Prov:RADHA SCOTT MD 12/17/20 Pantoprazole Sodium (Pantoprazole Sodium) 40 Mg Tablet.dr, 40 MG PO DAILY, #28 TAB Prov:POPEYE ERAZO MD 12/12/20 Sucralfate (Sucralfate) 1 Gm Tablet, 1 GM PO ACHS, #28 TAB Prov:POPEYE ERAZO MD 12/12/20 Paroxetine HCl (Paroxetine HCl) 10 Mg Tablet, 10 MG PO DAILY for 30 Days, #30 TAB Prov:POPEYE ERAZO MD 12/12/20 Reported Medications [Balance Of Nature] No Conflict Check, 1 EACH PO DAILY 12/09/20 Acetaminophen (Tylenol Extra Strength) 500 Mg Tablet, 500 MG PO Q8H PRN for PAIN-MILD (1-4), TAB 12/09/20 Clopidogrel Bisulfate (Clopidogrel) 75 Mg Tablet, 75 MG PO DAILY, TAB 12/09/20 Atorvastatin Calcium (Atorvastatin Calcium) 40 Mg Tablet, 40 MG PO 1200 W/MEAL, TAB 12/09/20 Losartan Potassium (Losartan Potassium) 50 Mg Tablet, 50 MG PO 1800 W/MEAL, TAB 12/09/20 Aspirin (Aspirin EC) 81 Mg Tablet.dr, 81 MG PO DAILY, TAB 12/09/20 Objective Exam Constitutional: [] HEENT: [] Neck: [No pain with palpation or range of motion] Cardiovascular: [] Respiratory: [] Gastrointestinal: [] Genitourinary: [] Skin: [] Back/Spine: [No pain with palpation or range of motion] Extremities: [Upper extremitiesfull range of motion without pain. No deformity. No crepitation. She has normal sensation with good cap refill good radial pulses. Multiple areas of bruising noted Lower extremitiespain swelling anterior knee. Bruising noted inferior to patella. Defect in the proximal patella tendon insertion of the inferior aspect of the patella. Minimal effusion. No instability on varus valgus stress at 0 and 30 degrees. No pain either hip. No pain left knee. No pain other ankle. Normal sensation to the foot and toes with good cap refill and good pulses.Multiple bruising noted throughout the lower extremities. No skin breakdown.] Neurologic: [] Psychiatric: [] Hematologic/lymphatic/immunologic: [] Vital Signs Vital Signs Date Time Temp Pulse Resp B/P (MAP) Pulse Ox O2 Delivery O2 Flow Rate FiO2 02/16/21 08:00 98 Room Air 02/16/21 07:55 37.0 66 15 145/67 (93) 98 Room Air 02/16/21 04:06 36.1 66 18 138/63 (88) 98 Room Air 02/16/21 00:00 35.3 70 18 155/81 (105) 99 Room Air 02/15/21 22:20 94 16 136/72 100 Room Air 02/15/21 21:53 36.8 88 100 21 02/15/21 21:50 Room Air 02/15/21 19:00 36.8 88 16 142/65 (90) 100 Room Air I & O 02/16/21 07:00 Intake Total 30 ml Output Total 350 ml Balance -320 ml Lab Results Laboratory Tests 02/15/21 22:34: White Blood Count 9.2, Red Blood Count 3.15L, Hemoglobin 8.2L, Hematocrit 26L, Mean Corpuscular Volume 84, Mean Corpuscular Hemoglobin 26, Mean Corpuscular Hemoglobin Concent 31L, Red Cell Distribution Width 18.2H, Platelet Count 270, Mean Platelet Volume 9.3, Immature Granulocyte % (Auto) 0, Neutrophils (%) (Auto) 88H, Lymphocytes (%) (Auto) 7L, Monocytes (%) (Auto) 5, Eosinophils (%) (Auto) 0, Basophils (%) (Auto) 0, Neutrophils # (Auto) 8.1H, Lymphocytes # (Auto) 0.6L, Monocytes # (Auto) 0.5, Eosinophils # (Auto) 0.0, Basophils # ( Auto) 0.0, Immature Granulocyte # (Auto) 0.0, Neutrophils % (Manual) 94, Lymphocytes % (Manual) 5, Monocytes % (Manual) 1, Hypochromasia MODERATE, Microcytosis MODERATE, Target Cells SLIGHT, Sodium Level 134L, Potassium Level 4.0, Chloride Level 103, Carbon Dioxide Level 21, Anion Gap 10, Blood Urea Nitrogen 21H, Creatinine 0.75, Estimat Glomerular Filtration Rate 74, BUN/Creatinine Ratio 28, Glucose Level 124H, Calcium Level 9.2, Corrected Calc ium 9.3, Total Bilirubin 0.4, Aspartate Amino Transf (AST/SGOT) 14, Alanine Aminotransferase (ALT/SGPT) 13, Alkaline Phosphatase 69, Total Protein 6.5, Albumin 3.9 Imaging X-rays were reviewed which shows no evidence of fracture of the tibia or femur on either the x-rays or the CT scan. She does have an avulsion fracture off the inferior pole of patella which is displaced approximately 1.5 cm. Assessment and Plan Assessment Fracture inferior pole patella right knee Problem List Unchanged Plan Treatment options were discussed with the patient. I talked her about nonoperative treatment and if she proceeded with nonoperative treatment she would not have the ability to fully extend the knee. She would not be able to weight-bear without a brace. She would be limited in activity and probably need to use a walker as well. Surgical options were discussed With repair of the patella tendon to the inferior pole of patella. She would like to proceed with surgery understanding the procedure, risks and complications.She understands she isAt increased risk due to her cardiac disease. She is on Plavix and aspirin but has not taken her Plavix since noon yesterday. She understands increased risk of bleeding due to Plavix. We talked about using antibiotics pre and postop to decrease risk of infection. We will restart her Plavix 48 hours postop. She understands the risk of DVT. She also understands that she is not able to bear weight initially after the procedure and that it may take up to 12 weeks of healing and rehab before she returns to "normal activity"Again she would like to proceed with surgery. Is scheduled for noon today.She is n.p.o. Final Diagonsis Fracture inferior pole patella right knee Level of the visit: Level 3 ATIYA TIERNEY MD Feb 16, 2021 09:47
[2021-02-16] MEDS: PANTOPRAZOLE 40 MG (PROTONIX) VIAL IV SCH ×2 (10:06→20:15)
[2021-02-16] MEDS: PARoxetine 10 MG (PAXIL) TAB PO SCH (10:21)
[2021-02-16] MEDS ORDERED: ceFAZolin INJECTION 1,000 MG ONE (12:00)
[2021-02-16] MEDS ORDERED: LACTATED RINGERS 1,000 ML IV PRN (12:00)
[2021-02-16] MEDS ORDERED: 0.9% SODIUM CHLORIDE PF INJ 20 ML VIAL ONE (12:00)
[2021-02-16] MEDS ORDERED: fentaNYL INJ 100 MCG/2 ML AMP ONE (12:01)
[2021-02-16] MEDS ORDERED: proPOfol 200 MG/20 ML (DIPRIVAN) VIAL IV ONE (12:01)
[2021-02-16] MEDS ORDERED: LIDOCAINE PF 2% 5 ML (XYLOCAINE) VIAL ONE (12:01)
[2021-02-16] MEDS ORDERED: BUPIVACAINE 0.25% 30 ML (SENSORCAINE) VIAL ONE (12:18)
[2021-02-16] MEDS ORDERED: LIDOCAINE/EPI 1%-1:100,000 (XYLOCAINE) 20ML ONE (12:18)
[2021-02-16] MEDS ORDERED: BACITRACIN OINTMENT 28 GM TUBE ONE (12:54)
[2021-02-16] MEDS ORDERED: ONDANSETRON 4 MG/2 ML (SDV) Z0FRAN ONE (13:08)
[2021-02-16] MEDS ORDERED: SEVOFLURANE (ULTANE) 15 ML INHAL SOLN ONE (13:09)
--- NOTE | 2021-02-16 13:42 | Anesthesia-General Post-Op ---
General Patient Condition Mental Status/LOC: Same as Preop Cardiovascular: Satisfactory Nausea/Vomiting: Absent Respiratory: Satisfactory Pain: Controlled Complications: Absent Post Op Complications Complications None Follow Up Care/Instructions Patient Instructions None needed. Anesthesia/Patient Condition Patient Condition Patient is doing well, no complaints, stable vital signs, no apparent adverse anesthesia problems. No complications reported per nursing. CALE PULLIAM CRNA Feb 16, 2021 13:42
--- NOTE | 2021-02-16 13:42 | Operative Report - Ortho ---
Operative Report Surgeon (s)/Game Trapper (s) Surgeon ATIYA TIERNEY MD Game Trapper n/a Pre-Operative Diagnosis Fracture inferior pole patella right knee Post-Operative Diagnosis same Operative Report Date of Procedure: Feb 16, 2021 Name of Procedure Performed: Repair of patella tendon inferior pole patella right knee Description & Findings Patient was seen in the preoperative area and the right leg was marked. The patient had no questions or concerns. She was taken to the operating room and placed on the OR table. After administration of general anesthesia she was given 1 g of Ancef IV. She had no reaction. A tourniquet was placed on the right thigh and the right leg was prepped and draped in the usual sterile manner The tourniquet was elevated after elevation of the leg for prepping and draping. Tourniquet was 250 mmHg. An incision was made slightly medial to the central aspect the patella and medial to the tibial tubercle. This was taken down through subtenons tissue. Bleeders were cauterized. The peritenon was split over the patella tendon and the disruption of the patella tendon off the inferior aspect patella was noted. There was some bone still attached to the tendon. This was removed. A trough was made in the inferior aspect the patella just anterior to the articular cartilage. At this point to modified Krakauer sutures were placed medial and laterally in the patella tendon using #2 FiberWire. Drill holes were then made through the patella from inferior to superior central lateral and medial. The sutures were placed through the patella with the 2 anterior sutures through the central hole in the medial lateral through the lateral and medial holes. The knee was then placed into ex tension and the sutures were tied over the superior aspect patella bringing the tendon up to the inferior pole of patella where the trough was made. After tying good position of the patella tendon was noted. I was able to flex the knee up to 45 degrees with minimal tension on the repair. No retinaculum was disrupted. This point the tourniquet was deflated after 33 minutes. Small bleeders are cauterized. Wound was irrigated with pressurized irrigation. Subcutaneous tissue was closed with 2-0 Vicryl and the skin with april. Also the peritenon was closed with 2-0 Vicryl. Wound was injected with 20 mL of the 50-50 mixture of 0.25% Marcaine and 1% Xylocaine with epinephrine. Wound was dressed with antibiotic ointment Adaptic 4 x 4's and wrapped with Kerlix and a 6 inch Jean Pierre wrap. The leg was placed back in the knee immobilizer. Patient had good cap refill and good pulses after the procedure. She was then transferred to recovery room in good condition she tolerated the procedure well. [id number] minutes at 250 mmHg Blood loss25 mL Drainsnone Specimennone Complicationsnone n/a Anesthesia Type General Estimated Blood Loss minimal Packing none. Specimen(s) collected/removed None ATIYA TIERNEY MD Feb 16, 2021 13:42
[2021-02-16] MEDS ORDERED: fentaNYL INJ 100 MCG/2 ML AMP IVP ONE (13:45)
[2021-02-16] MEDS: LACTATED RINGERS 1,000 ML IV SCH (16:23)
[2021-02-16] MEDS: ceFAZolin INJECTION 1,000 MG in WATER (STERILE) FOR INJECTION 10 ML IV SCH (20:15)
[2021-02-16] MEDS: fentaNYL INJ 100 MCG/2 ML AMP IVP PRN (23:32)
[2021-02-17] VITALS (10 sets, daily range): BP systolic 108–157; BP diastolic 47–74
[2021-02-17] MEDS: ACETAMINOPHEN 500 MG TAB (TYLENOL) PO PRN ×3 (01:15→20:00)
[2021-02-17] MEDS: LACTATED RINGERS 1,000 ML IV SCH ×3 (03:32→22:29)
[2021-02-17] MEDS: ceFAZolin INJECTION 1,000 MG in WATER (STERILE) FOR INJECTION 10 ML IV SCH ×2 (03:33→12:55)
[2021-02-17 05:38] LABS: HEMOGLOBIN 6.3 g/dL (11.5-16.0)
[2021-02-17] MEDS ORDERED: NS IV 500 ML 500 ML IV SCH ×2 (06:15→07:15)
[2021-02-17] MEDS: PARoxetine 10 MG (PAXIL) TAB PO SCH (08:29)
[2021-02-17] MEDS: PANTOPRAZOLE 40 MG (PROTONIX) VIAL IV SCH ×2 (08:29→20:05)
--- NOTE | 2021-02-17 08:37 | Progress Note ---
Subjective Subjective Date Seen by Provider: Feb 17, 2021 Time Seen by Provider: 08:00 80yo F follow up for day 1 post op R patellar fracture repair and history of CAD, GI Ulcer, and pulmonary lesion. Pt reports R lateral knee pain with RLE swelling. Pt states hasn't been using incentive spirometer, but will start using it 10x/hr. Hgb at 6.3 today and will be transfused 4u pRBC. Denies any fever, chills, nausea, vomiting, diarrhea, chest pain, or SOB. Review of Systems General: No Chills, No Night Sweats HEENT: No Head Aches, No Visual Changes, No Ear Pain Pulmonary: No Dyspnea, No Cough Cardiovascular: Edema (RLE distal); No: Chest Pain, Palpitations Gastrointestinal: No: Nausea, Vomiting, Diarrhea Genitourinary: No Dysuria, No Frequency, No Incontinence Musculoskeletal: leg pain (R lateral knee); No: neck pain, back pain Neurological: No: Numbness, Confusion, Seizures All Other Systems Reviewed All Other Systems Reviewed: Yes Objective Exam Vital Signs Vital Signs Date Time Temp Pulse Resp B/P (MAP) Pulse Ox O2 Delivery O2 Flow Rate FiO2 02/17/21 08:19 36.3 62 18 129/57 96 Room Air 02/17/21 08:00 Room Air 02/17/21 08:00 36.4 71 18 122/62 (82) 96 Room Air 02/17/21 07:58 36.4 65 18 122/62 94 02/17/21 04:00 36.8 69 18 108/60 (76) 97 Room Air 02/16/21 23:30 37.2 72 20 137/61 (86) 95 Room Air 02/16/21 20:20 Room Air 02/16/21 20:12 36.0 74 18 111/54 (73) 97 Room Air 02/16/21 16:05 36.4 71 16 124/59 (80) 98 Room Air 02/16/21 15:03 Room Air 02/16/21 14:00 Room Air 02/16/21 14:00 37.2 20 115/94 (101) 98 Room Air 02/16/21 13:50 20 120/94 (103) 98 Room Air 02/16/21 13:45 Room Air 02/16/21 13:40 20 127/61 (83) 100 OxyMask 3 02/16/21 13:30 OxyMask 4 02/16/21 13:30 20 125/58 (80) 100 OxyMask 3 02/16/21 13:20 20 125/56 (79) 100 OxyMask 4 02/16/21 13:16 OxyMask 4 02/16/21 13:16 37.2 20 131/60 (83) 100 OxyMask 4 02/16/21 11:23 98 Room Air 02/16/21 11:20 37.2 64 22 135/62 (86) 98 Room Air I & O 02/17/21 07:00 Intake Total 1590 ml Output Total 520 ml Balance 1070 ml General Appearance: No Apparent Distress, Thin Eyes: Bilateral Eye Normal Inspection, Bilateral Eye PERRL, Bilateral Eye EOMI HEENT: PERRL/EOMI Neck: Non Tender, Supple Respiratory: Chest Non Tender, Lungs Clear, Normal Breath Sounds, No Accessory Muscle Use, No Respiratory Distress Cardiovascular: Regular Rate, Rhythm Gastrointestinal: Non Tender, Soft Extremity: Swelling (RLE) Neurologic/Psychiatric: Alert, Oriented x3, Normal Mood/Affect Skin: Warm/Dry Lymphatic: No Adenopathy Results Lab Laboratory Tests 02/17/21 05:25: Hemoglobin 6.3#*L, Hematocrit 21L Microbiology 02/16/21 MRSA Screen - Final, Complete MRSA not isolated Assessment/Plan Assessment/Plan Assessment and Plan 1. s/p R Patellar Fracture repair--day 1 post op, Hgb at 6.3 and will transfuse 4u pRBCs, PT/OT, IVF, Cefazolin abx, Fentanyl for pain 2. R Patellar Fracture--surgery by Dr. Hendricks performed 3. H/o CAD--resume plavix 4. H/o GI Ulcer--protonix 5. H/o Pulmonary Lesion--follows with oncology Admission Dx 1. R Patellar Fracture--NPO, Dr. Hendricks expected to perform surgery today, will monitor H&H 2. H/o CAD--held plavix 3. H/o GI Ulcer--protonix 4. H/o Pulmonary Lesion--follows with oncology Clinical Quality Measures Admission Status Admission Dx 1. R Patellar Fracture--NPO, Dr. Hendricks expected to perform surgery today, will monitor H&H 2. H/o CAD--held plavix 3. H/o GI Ulcer--protonix 4. H/o Pulmonary Lesion--follows with oncology Supervisory-Addendum Brief Verification & Attestation Participated in pt care: history, physical Personally performed: exam Care discussed with: Medical Student Procedures: n/a Results interpretation: Verified all documentation Patient seen and examined. She has acute on chronic anemia--nurse just hung first unit of blood. She complains of some burning to right lateral knee. Wanting to know when she can go home. Also worried about starting her radiation treatments. Otherwise agree with above assessment and plan. SHERRY MORALES Feb 17, 2021 08:37 ROBSON MO DO Feb 17, 2021 19:51
--- NOTE | 2021-02-17 09:27 | Progress Note - Ortho ---
Progress Note Subjective Date of Exam 02/17/21 Chief Complaint POD#1 Repair patella tendon right knee HPI/Events since last exam Mrs. Pantoja is 1 day postop repair of patella tendon to the right knee. States she is having constant pain. She has not been up yet today as she is getting transfused for hemoglobin of 6.3 Review of Systems Unchanged Allergies: Coded Allergies: Penicillins (Verified Allergy, Mild, Skin rash Several years ago, 02/16/21) hydrocodone (Verified Allergy, Mild, The patient states that the hydrocodone made her feel "goofy, 02/16/21) Home Meds Reported Medications Aspirin (Aspirin EC) 81 Mg Tablet.dr, 162 MG PO HS PRN for RESTLESSNESS, TAB TAKES 2 (81MG) TABS 02/16/21 Pantoprazole Sodium (Pantoprazole Sodium) 20 Mg Tablet.dr, 20 MG PO BID WITH MEALS, TAB 02/16/21 [Balance Of Nature] No Conflict Check, 1 EACH PO DAILY 12/09/20 Clopidogrel Bisulfate (Clopidogrel) 75 Mg Tablet, 75 MG PO 1200, TAB 12/09/20 Aspirin (Aspirin EC) 81 Mg Tablet.dr, 81 MG PO DAILY, TAB 12/09/20 Discontinued Reported Medications Acetaminophen (Tylenol Extra Strength) 500 Mg Tablet, 500 MG PO Q8H PRN for PAIN-MILD (1-4), TAB 12/09/20 Atorvastatin Calcium (Atorvastatin Calcium) 40 Mg Tablet, 40 MG PO 1200 W/MEAL, TAB 12/09/20 Losartan Potassium (Losartan Potassium) 50 Mg Tablet, 50 MG PO 1800 W/MEAL, TAB 12/09/20 Discontinued Scripts Diclofenac Sodium (Arthritis Pain) 100 Gm Gel..gram., 2 GM TP QID PRN for PAIN- MODERATE (5-7), #1 EA Prov:RADHA SCOTT MD 12/17/20 Permethrin (Permethrin) 60 Gm Cream..g., 60 GM TP ONCE, #1 EA 1 Refill Apply head to toe and leave on overnight. Repeat in 1 week if needed. Prov:RADHA SCOTT MD 12/17/20 Pantoprazole Sodium (Pantoprazole Sodium) 40 Mg Tablet.dr, 40 MG PO DAILY, #28 TAB Prov:POPEYE ERAZO MD 12/12/20 Sucralfate (Sucralfate) 1 Gm Tablet, 1 GM PO ACHS, #28 TAB Prov:POPEYE ERAZO MD 12/12/20 Paroxetine HCl (Paroxetine HCl) 10 Mg Tablet, 10 MG PO DAILY for 30 Days, #30 TAB Prov:POPEYE ERAZO MD 12/12/20 Objective Exam Constitutional: [] HEENT: [] Neck: [] Cardiovascular: [] Respiratory: [] Gastrointestinal: [] Genitourinary: [] Skin: [] Back/Spine: [] Extremities: [] Neurologic: [] Psychiatric: [] Hematologic/lymphatic/immunologic: [] Vital Signs Vital Signs Date Time Temp Pulse Resp B/P (MAP) Pulse Ox O2 Delivery O2 Flow Rate FiO2 02/17/21 08:19 36.3 62 18 129/57 96 Room Air 02/17/21 08:00 Room Air 02/17/21 08:00 36.4 71 18 122/62 (82) 96 Room Air 02/17/21 07:58 36.4 65 18 122/62 94 02/17/21 04:00 36.8 69 18 108/60 (76) 97 Room Air 02/16/21 23:30 37.2 72 20 137/61 (86) 95 Room Air 02/16/21 20:20 Room Air 02/16/21 20:12 36.0 74 18 111/54 (73) 97 Room Air 02/16/21 16:05 36.4 71 16 124/59 (80) 98 Room Air 02/16/21 15:03 Room Air 02/16/21 14:00 Room Air 02/16/21 14:00 37.2 20 115/94 (101) 98 Room Air 02/16/21 13:50 20 120/94 (103) 98 Room Air 02/16/21 13:45 Room Air 02/16/21 13:40 20 127/61 (83) 100 OxyMask 3 02/16/21 13:30 OxyMask 4 02/16/21 13:30 20 125/58 (80) 100 OxyMask 3 02/16/21 13:20 20 125/56 (79) 100 OxyMask 4 02/16/21 13:16 OxyMask 4 02/16/21 13:16 37.2 20 131/60 (83) 100 OxyMask 4 02/16/21 11:23 98 Room Air 02/16/21 11:20 37.2 64 22 135/62 (86) 98 Room Air I & O 02/17/21 06:59 Intake Total 1590 ml Output Total 520 ml Balance 1070 ml Lab Results Laboratory Tests 02/17/21 05:25: Hemoglobin 6.3#*L, Hematocrit 21L Microbiology 02/16/21 MRSA Screen - Final, Complete MRSA not isolated Assessment and Plan Assessment Doing as expected 1 day postop Problem List Unchanged except for a drop in her hemoglobin which I would say this is not secondary to blood loss anemia at surgery as I only lost approximately 25 mL of blood. She is on Plavix which was last taken on Thursday 02/15 Plan Walker ambulation nonweightbearing on the right. Continue with knee immobilizer. Plan on dressing change tomorrow. Final Diagonsis Fracture inferior pole patella right knee 1 day postop repair of patella tendon Level of the visit: Level 3 ATIYA TIERNEY MD Feb 17, 2021 09:27
[2021-02-17] MEDS: fentaNYL INJ 100 MCG/2 ML AMP IVP PRN (09:43)
--- NOTE | 2021-02-17 09:54 | Cardiology Progress Note ---
Subjective Date Seen by Provider: Feb 17, 2021 Time Seen by Provider: 09:50 Subjective/Events-last exam Patient is sitting up in bed, c/o headache. Denies any chest pain or dyspnea. Review of Systems General: No Chills, No Night Sweats, No Fatigue, No Malaise, No Appetite, No Other HEENT: No Head Aches, No Visual Changes, No Eye Pain, No Ear Pain, No Dysphasia, No Sinus Congestion, No Post Nasal Drip, No Sore Throat, No Other Pulmonary: No Dyspnea, No Cough, No Pleuritic Chest Pain, No Other Cardiovascular: No: Chest Pain, Palpitations, Orthopnea, Paroxysmal Noc. Dyspnea, Edema, Lt Headedness, Other Objective-Cardiology Exam Last Set of Vital Signs Vital Signs 02/15/21 02/16/21 02/17/21 21:53 13:40 14:23 Temp 36.3 Pulse 68 Resp 18 B/P (MAP) 157/74 Pulse Ox 95 O2 Delivery Room Air O2 Flow Rate 3 FiO2 21 I&O Intake and Output 02/16/21 23:59 Intake Total 1440 ml Output Total 745 ml Balance 695 ml Intake Oral 340 ml IV Total 1100 ml Output Urine Total 745 ml General: Alert, Oriented X3, Cooperative HEENT: Atraumatic, PERRLA Neck: No JVD Lungs: Clear to Auscultation, Normal Air Movement Heart: Regular Rate, Normal S1, Normal S2 Abdomen: Normal Bowel Sounds, Soft Extremities: No Edema Skin: No Rashes, No Significant Lesion Neuro: Normal Speech, Cranial Nerves 3-12 NL Psych/Mental Status: Mood NL Results Lab Laboratory Tests 02/17/21 05:25 A/P-Cardiology Admission Diagnosis Right patella fracture Coronary artery disease Anemia Peptic ulcer disease Assessment/Plan Right patella fracture, s/p repair with Dr. Mart yesterday. Coronary artery disease, cardiac catheterization done by Dr. Daniel on October 13, 2020 showing severe stenosis in the mid LAD, had a long drug-eluting Mary stent 2.5 x 28 mm deployed to the mid LAD with excellent results. Has severe stenosis/95% stenosis in the mid right coronary artery, patient did not agree on the intervention at that time. No active chest pain, maintained on aspirin and Plavix, currently on hold. Will need to resume ASA and Plavix d/t recent stenting to the LAD. Anemia, worsening, Hgb 6.3 this morning. Currently receiving blood transfusion, continue to monitor closely. Congestive heart failure, chronic compensated left ventricular systolic dysfunction, ejection fraction 40%, will repeat 2D echocardiogram Abnormal baseline EKG with left bundle branch block, chronic, repeat EKG today showed no change from baseline. History of peptic ulcer disease, GI bleed, maintained on PPI, managed by Dr. Kaiser Hypertension, has been on losartan as an outpatient History of syncope in September 2020, no further episodes were reported. Continue to monitor Pulmonary nodule, has been followed as an outpatient by primary care physician Extobaccoism, stopped smoking 2011. Patient was seen and evaluated with Yari, examination performed, management plan was discussed, agree with the current scribed note, I made few changes to the note using Italic font Patient was seen at bedside laying down in bed, complaining of pain in her knee She was noted to have significant drop in her hemoglobin I proceeded with ordering blood transfusion and monitoring H&H Need to resume aspirin and Plavix as soon as possible when deemed reasonable by the surgeon Continue to monitor blood pressure and lipids Start physical therapy YARI HARGROVE Feb 17, 2021 09:54 AL BRITO MD Feb 17, 2021 15:01
--- NOTE | 2021-02-17 09:54 | Physical Therapy Evaluation ---
PT Evaluation-General Medical Diagnosis Admission Date Feb 15, 2021 at 20:21 Medical Diagnosis: patella tendon repair Onset Date: Feb 15, 2021 Therapy Diagnosis Therapy Diagnosis: impaired mobility, strength, endurance Precautions Precautions/Isolations: Fall Prevention, Standard Precautions Weight Bear Status Right Lower Extremity: Right Non Weight Bearing Left Lower Extremity: Left Full Weight Bearing Referral Physician: Eladio Reason for Referral: Evaluation/Treatment Medical History Additional Medical History Past Medical History Surgeries: Appendectomy, Coronary Stent, Hysterectomy, Tonsillectomy Currently Using CPAP: No Currently Using BIPAP: No Coronary Artery Disease 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 3-Qaddskwjtv-cwdkyyz completes the activity by him/herself with no assistance from a helper. 5-Set-up or Clean-up Assistance-helper sets up or cleans up; patient completes activity. Gilson assists only prior to or following the activity. 4-Supervision or Touching Assistance-helper provides verbal cues and/or touching/steadying and/or contact guard assistance as patient completes activ ity. Assistance may be provided throughout the activity or intermittently. 3-Partial/Moderate Assistance-helper does LESS THAN HALF the effort. Gilson lifts, holds or supports trunk or limbs, but provides less than half the effort. 2-Substantial/Maximal Assistance-helper does MORE THAN HALF the effort. Gilson lifts or holds trunk or limbs and provides more than half the effort. 4-Irfgljpmy-rjywkk does ALL the effort. Patient does none of the effort to complete the activity. Or, the assistance of 2 or more helpers is required for the patient to complete the activity. If activity was not attempted, code reason: 7-Patient Refused. 9-Not Applicable-not attempted and the patient did not perform the activity before the current illness, exacerbation or injury. 10-Not Attempted due to Environmental Limitations-(lack of equipment, weather restraints, etc.). 88-Not Attempted due to Medical Conditions or Safety Concerns. Bed Mobility: 6 Transfers (B,C,W/C): 6 Gait: 6 Stairs: 6 Indoor Mobility (Ambulation): Independent Stairs: Independent PT Evaluation-Current Subjective Patient in bed pre tx, agrees to PT, has 7/10 pain in right leg. Pt/Family Goals "to reduce pain" Objective Patient Orientation: Person, Place, Situation ROM/Strength ROM Lower Extremities WNL LLE Sensory Hearing: Functional Sensation Right Lower Extremit: Intact Sensation Left Lower Extremity: Intact Transfers Roll Left to Right (QC): 3 Sit to Lying (QC): 3 Lying to Sitting/Side of Bed(Q: 3 Sit to Stand (QC): 3 Patient was min assist for supine <-> sit, min assist to stand. Patient was able to stand for about 30 seconds before needing to sit. Balance Sitting Static: Normal Sitting Dynamic: Normal Standing Static: Fair Standing Dynamic: Fair Treatment BLE supine exercises x20 (AP, QS) Assessment/Needs Patient in bed post tx with nurse call, phone, tray, all needs met. Patient needs min assist for supine <-> sit and sit <-> stand. She seems to be able to maintain NWB on right leg most of the time. Patient has a lot of pain and was 10/10 post tx, nurse notified. Rehab Potential: Fair PT Shelter Goals Shelter Goals PT Shelter Goals Time Frame: Feb 24, 2021 Roll Left & Right (QC): 6 Sit to Lying (QC): 6 Lying-Sitting on Side/Bed(QC): 6 Sit to Stand (QC): 4 Chair/Xuq-up-Jvrdq Xfer(QC): 4 Walk 10 feet (QC): 4 PT Plan Problem List Problem List: Activity Tolerance, Functional Strength, Safety, Balance, Gait, Transfer, Bed Mobility, ROM Treatment/Plan Treatment Plan: Continue Plan of Care Treatment Plan: Bed Mobility, Education, Functional Activity Kerry, Functional Strength, Gait, Safety, Therapeutic Exercise, Transfers Treatment Duration: Feb 24, 2021 Frequency: 11 times per week Estimated Hrs Per Day: .25 hour per day Patient and/or Family Agrees t: Yes Safety Risks/Education Patient Education: Reviewed Precautions, Correct Positioning, Safety Issues Teaching Recipient: Patient Teaching Methods: Demonstration, Discussion Response to Teaching: Reinforcement Needed Discharge Recommendations Plan Patient will perform bed mobility and transfer training, balance and endurance training, functional strengthening, gait training, and education, to improve functional mobility and independence at home. Therapy Discharge Recommendati: Scheduled Assistance, Post Acute PT Time/GCodes Time In: 925 Time Out: 936 Total Billed Treatment Time: 11 Total Billed Treatment 1 visit EVM 11' CHEKO BURGESS PT Feb 17, 2021 09:54
[2021-02-17] MEDS ORDERED: NS IV 500 ML 500 ML ONE (11:40)
--- NOTE | 2021-02-17 14:41 | Occupational Therapy Eval ---
OT Evaluation-General/PLF Medical Diagnosis Admission Date Referral Physician: Eladio ADL-Prior Level of Function SCALE: Activities may be completed with or without assistive devices. 1-Njsaucpfyq-xwpuyfz completes the activity by him/herself with no assistance from a helper. 5-Set-up or Clean-up Assistance-helper sets up or cleans up; patient completes activity. [place] assists only prior to or following the activity. 4-Supervision or Touching Assistance-helper provides verbal cues and/or touching/steadying and/or contact guard assistance as patient completes activity. Assistance may be provided throughout the activity or intermittently. 3-Partial/Moderate Assistance-helper does LESS THAN HALF the effort. [place] lifts, holds or supports trunk or limbs, but provides less than half the effort. 2-Substantial/Maximal Assistance-helper does MORE THAN HALF the effort. [place] lifts or holds trunk or limbs and provides more than half the effort. 8-Ibxwyhfro-umuvjh does ALL the effort. Patient does none of the effort to complete the activity. Or, the assistance of 2 or more helpers is required for the patient to complete the activity. If activity was not attempted, code reason: 7-Patient Refused. 9-Not Applicable-not attempted and the patient did not perform the activity before the current illness, exacerbation or injury. 10-Not Attempted due to Environmental Limitations-(lack of equipment, weather restraints, etc.). 88-Not Attempted due to Medical Conditions or Safety Concerns. OT Nursing Home Goals Structural Iron Erector Goals 1=Demonstrate adherence to instructed precautions during ADL tasks. 2=Patient will verbalize/demonstrate understanding of assistive devices/modifications for ADL. 3=Patient will improve strength/tolerance for activity to enable patient to perform ADL's. OT Education/Plan Treatment Plan/Plan of Care Patient would benefit from OT for education, treatment and training to promote independence in ADL's, mobility, safety and/or upper extremity function for ADL's. Sis Bragg OT Feb 17, 2021 14:41
--- NOTE | 2021-02-17 14:43 | Physical Therapy Daily Note ---
PT Daily Note-Current Subjective Patient in bed pre tx, agrees to PT, has 7/10 pain in right leg. Appearance Patient in bed post tx with nurse call, phone, tray, all needs met. Mental Status Patient Orientation: Person, Place, Situation Transfers SCALE: Activities may be completed with or without assistive devices. 7-Vcqbuseybs-tvawxhl completes the activity by him/herself with no assistance from a helper. 5-Set-up or Clean-up Assistance-helper sets up or cleans up; patient completes activity. [place] assists only prior to or following the activity. 4-Supervision or Touching Assistance-helper provides verbal cues and/or touching/steadying and/or contact guard assistance as patient completes activity. Assistance may be provided throughout the activity or intermittently. 3-Partial/Moderate Assistance-helper does LESS THAN HALF the effort. [place] lifts, holds or supports trunk or limbs, but provides less than half the effort. 2-Substantial/Maximal Assistance-helper does MORE THAN HALF the effort. [place] l ifts or holds trunk or limbs and provides more than half the effort. 3-Mpbwbffas-wetnno does ALL the effort. Patient does none of the effort to complete the activity. Or, the assistance of 2 or more helpers is required for the patient to complete the activity. If activity was not attempted, code reason: 7-Patient Refused. 9-Not Applicable-not attempted and the patient did not perform the activity before the current illness, exacerbation or injury. 10-Not Attempted due to Environmental Limitations-(lack of equipment, weather restraints, etc.). 88-Not Attempted due to Medical Conditions or Safety Concerns. Roll Left & Right (QC): 6 Sit to Lying (QC): 3 Lying to Sitting/Side of Bed(Q: 3 Sit to Stand (QC): 3 Patient min assist for supine <-> sit and sit <-> stand, patient is able to stand for about 30 seconds before needing to sit, she is compliant with her NWB on right leg. She refuses to try to take any steps at this time Weight Bearing Right Lower Extremity: Right Non Weight Bearing Left Lower Extremity: Left Full Weight Bearing Exercises Supine Ex: Ankle pumps Supine Reps: 20 Treatments bed mobility, standing, ankle ROM Assessment Current Status: Poor Progress no change in mobility, slightly less pain PT Analytic Programmer Goals Analytic Programmer Goals PT Care Home Goals Time Frame: Feb 24, 2021 Roll Left & Right (QC): 6 Sit to Lying (QC): 6 Lying-Sitting on Side/Bed(QC): 6 Sit to Stand (QC): 4 Chair/Lza-kj-Ljwab Xfer(QC): 4 Walk 10 feet (QC): 4 PT Plan Problem List Problem List: Activity Tolerance, Functional Strength, Safety, Balance, Gait, Transfer, Bed Mobility, ROM Treatment/Plan Treatment Plan: Continue Plan of Care Treatment Plan: Bed Mobility, Education, Functional Activity Kerry, Functional Strength, Gait, Safety, Therapeutic Exercise, Transfers Treatment Duration: Feb 24, 2021 Frequency: 11 times per week Estimated Hrs Per Day: .25 hour per day Patient and/or Family Agrees t: Yes Safety Risks/Education Patient Education: Reviewed Precautions, Correct Positioning, Safety Issues Teaching Recipient: Patient Teaching Methods: Demonstration, Discussion Response to Teaching: Reinforcement Needed Time/GCodes Time In: 1424 Time Out: 1437 Total Billed Treatment Time: 13 Total Billed Treatment 1 visit FA CHEKO EUGENE PT Feb 17, 2021 14:43
--- NOTE | 2021-02-17 14:50 | Occupational Therapy Eval ---
OT Evaluation-General/PLF Medical Diagnosis Admission Date Feb 15, 2021 at 20:21 Medical Diagnosis: patella tendon repair Onset Date: Feb 15, 2021 Therapy Diagnosis Therapy Diagnosis: Impaired adls, balance, endurance, iadls Precautions Precautions/Isolations: Fall Prevention, Standard Precautions Weight Bear Status Weight Bearing Restriction: Non Weight Bearing Location Restriction: R LE Referral Physician: Eladio Mcneil Reason: Evaluation/Treatment Medical History Pertinent Medical History: CAD Current History Pt presents to hospital following trauma to R knee secondary to losing balance while turning around in her kitchen. She hit her knee on a wooden drawer. She is now POD1 for a patella tendon repair. NWB RLE. She is currently in a knee immobilizer. Pt reports that she was living alone in a single story home. She was indep with all adls and iadls. She reports that she will not do rehab and will instead hire extra help at her home post d/c. She owns a cane and fww but was not using prior. Reviewed History: Yes Social History Home: Single Level (has basement) Current Living Status: Alone Entry Into Home: Stairs With Railing Steps Into Home: 2 ADL-Prior Level of Function SCALE: Activities may be completed with or without assistive devices. 6-Gwbxehduyp-adndnbb completes the activity by him/herself with no assistance from a helper. 5-Set-up or Clean-up Assistance-helper sets up or cleans up; patient completes activity. [place] assists only prior to or following the activity. 4-Supervision or Touching Assistance-helper provides verbal cues and/or touching/steadying and/or contact guard assistance as patient completes activity. Assistance may be provided throughout the activity or intermittently. 3-Partial/Moderate Assistance-helper does LESS THAN HALF the effort. [place] lifts, holds or supports trunk or limbs, but provides less than half the effort. 2-Substantial/Maximal Assistance-helper does MORE THAN HALF the effort. [place] lifts or holds trunk or limbs and provides more than half the effort. 3-Pmzxljjcj-juwozb does ALL the effort. Patient does none of the effort to complete the activity. Or, the assistance of 2 or more helpers is required for the patient to complete the activity. If activity was not attempted, code reason: 7-Patient Refused. 9-Not Applicable-not attempted and the patient did not perform the activity before the current illness, exacerbation or injury. 10-Not Attempted due to Environmental Limitations-(lack of equipment, weather restraints, etc.). 88-Not Attempted due to Medical Conditions or Safety Concerns. Self Care: Independent Functional Cognition: Independent DME/Equipment: Bath Chair, Shower, Tall Toilet Drive Self: Yes OT Current Status Subjective Pt reports pain as 9/10. She is currently receiving blood transfusion at OT arrival. Appearance Pt returned to supine in bed, all needs within reach. Mental Status/Objective Patient Orientation: Person, Place, Situation Attachments: [place] Catheter, IV Current Upper Extremity ROM WNL Upper Extremity Strength 3+/5 grossly ADL-Treatment Eating (QC): 6 (per clinical judgement) Upper Body Dressing (QC): 4 (per clinical judgement) Lower Body Dressing (QC): 2 On/Off Footwear (QC): 3 (dep for R foot) Pt resting in bed at OT arrival. Poor insight into reason for OT and need for compensatory/adaptive strategies secondary to being NWB and with immobolizer on RLE. She requires min a to transition RLE off edge of bed secondary to reports that it is too heavy with immobolizer donned. Good sitting balance once edge of bed. She was able to don/doff L sock without difficulty, unable to reach R foot, again due to immobolizer. Sit<>stand: min A, unable to tolerate standing for >20 seconds. Heavy reliance on UE support on walker. At this time, she would require assist with clothing management due to inability to remove hand from walker. Min a to return to supine with assist to lift RLE into bed. Pt often screaming out in pain throughout all session. Education OT Patient Education: Correct positioning, Energy conservation, Modified ADL techniques, Progress toward Goal/Update tx plan, Purpose of tx/functional activities, Reviewed precautions, Rehab process, Safety issues, Transfer techniques Teaching Recipient: Patient Teaching Methods: Demonstration, Discussion Response to Teaching: Verbalize Understanding, Return Demonstration, Reinforcement Needed OT Detention Goals Detention Goals Time Frame: Mar 05, 2021 Eating (QC): 6 Oral Hygiene (QC): 4 Toileting Hygiene (QC): 4 Lower Body Dressing (QC): 4 On/Off Footwear (QC): 4 1=Demonstrate adherence to instructed precautions during ADL tasks. 2=Patient will verbalize/demonstrate understanding of assistive devices/modifications for ADL. 3=Patient will improve strength/tolerance for activity to enable patient to perform ADL's. OT Education/Plan Problem List/Assessment Assessment: Decreased Activ Tolerance, Decreased Safety Aware, Decreased UE Strength, Impaired Funct Balance, Impaired I ADL's, Impaired Self-Care Skills Discharge Recommendations Plan/Recommendations: Continue POC Therapy Discharge Recommendati: Post Acute OT Equpiment Recommendations-D/C: Wire Preparation Worker, Sock Aide Treatment Plan/Plan of Care Treatment,Training & Education: Yes Patient would benefit from OT for education, treatment and training to promote independence in ADL's, mobility, safety and/or upper extremity function for ADL's. Plan of Care: ADL Retraining, Functional Mobility, Group Exercise/Act as Ind, Orthotic Fitting/Training, UE Funct Exercise/Act Treatment Duration: Mar 05, 2021 Frequency: 5 times per week Estimated Hrs Per Day: .25 hour per day Rehab Potential: Fair Time/GCodes Start Time: 13:42 Stop Time: 14:05 Total Time Billed (hr/min): 23 Billed Treatment Time 1 visit, MICH (10 min) DONTA (13 min) Sis Bragg OT Feb 17, 2021 14:50
[2021-02-17] MEDS ORDERED: IRON SUCROSE 200 MG/10 ML (VENOFER) VIAL IV SCH (20:00)
[2021-02-17] MEDS: SENNA W/DOCUSATE (SENOKOT S) TABLET PO SCH (20:05)
[2021-02-17] MEDS: RT-ALBUTEROL/IPRATROPIUM 3 ML (DUONEB) VIAL INH SCH (21:00)
[2021-02-18 00:21] VITALS: BP 131/67
[2021-02-18 03:44] VITALS: BP 139/64
[2021-02-18] MEDS: ACETAMINOPHEN 500 MG TAB (TYLENOL) PO PRN (04:06)
[2021-02-18 05:55] LABS: HEMOGLOBIN 9.5 g/dL (11.5-16.0)
[2021-02-18] MEDS: RT-ALBUTEROL/IPRATROPIUM 3 ML (DUONEB) VIAL INH SCH (07:34)
[2021-02-18 07:59] VITALS: BP 137/63
--- NOTE | 2021-02-18 08:30 | Progress Note ---
Subjective Subjective Date Seen by Provider: Feb 18, 2021 Time Seen by Provider: 08:45 80yo F follow up for day 2 post op R patellar fracture repair and history of CAD, GI Ulcer, and pulmonary lesion. Pt reports some lower back pain with RLE swelling/tenderness. Hgb at 9.5 today. Denies any fever, chills, nausea, vo miting, diarrhea, chest pain, or SOB. Pt expects to be start rehab today. Review of Systems General: No Chills, No Night Sweats HEENT: No Head Aches, No Visual Changes, No Ear Pain Pulmonary: No Dyspnea, No Cough Cardiovascular: Edema (RLE distal); No: Chest Pain, Palpitations Gastrointestinal: No: Nausea, Vomiting, Diarrhea Genitourinary: No Dysuria, No Frequency, No Incontinence Musculoskeletal: leg pain (RLE); No: neck pain, back pain Neurological: No: Numbness, Confusion, Seizures All Other Systems Reviewed All Other Systems Reviewed: Yes Objective Exam Vital Signs Vital Signs Date Time Temp Pulse Resp B/P (MAP) Pulse Ox O2 Delivery O2 Flow Rate FiO2 02/18/21 07:59 36.6 58 18 137/63 (87) 95 Room Air 02/18/21 07:34 93 Room Air 02/18/21 03:44 37.2 64 18 139/64 (89) 93 Room Air 02/18/21 00:21 37.1 67 22 131/67 (88) 93 Room Air 02/17/21 21:00 90 Room Air 02/17/21 20:05 Room Air 02/17/21 19:38 37.6 65 20 126/57 (80) 92 Room Air 02/17/21 16:00 37.4 70 20 128/60 (82) 92 Room Air 02/17/21 14:23 36.3 68 18 157/74 95 Room Air 02/17/21 12:08 36.3 65 18 119/47 96 Room Air 02/17/21 11:51 35.9 63 18 144/67 (92) 94 Room Air 02/17/21 11:51 35.9 63 18 144/67 94 Room Air 02/17/21 11:19 36.6 65 18 136/62 96 Room Air I & O 02/18/21 07:00 Intake Total 1320 ml Output Total 1150 ml Balance 170 ml General Appearance: No Apparent Distress, Thin Eyes: Bilateral Eye Normal Inspection, Bilateral Eye PERRL, Bilateral Eye EOMI HEENT: PERRL/EOMI Neck: Non Tender, Supple Respiratory: Chest Non Tender, Lungs Clear, Normal Breath Sounds, No Accessory Muscle Use, No Respiratory Distress Cardiovascular: Regular Rate, Rhythm Gastrointestinal: Non Tender, Soft Extremity: Calf Tenderness (R calf tenderness), Swelling (RLE) Neurologic/Psychiatric: Alert, Oriented x3, Normal Mood/Affect Skin: Warm/Dry Lymphatic: No Adenopathy Results Lab Laboratory Tests 02/17/21 14:52: Hemoglobin 9.9L 02/18/21 05:14: Hemoglobin 9.5#L, Hematocrit 29L Microbiology 02/16/21 MRSA Screen - Final, Complete MRSA not isolated Assessment/Plan Assessment/Plan Assessment and Plan 1. s/p R Patellar Fracture repair--day 2 post op, IVF, Cefazolin abx, Fentanyl for pain, will move to rehab today 2. Acute on chronic anemia due to post op blood loss--resolved, transfused 4u pRBCs yesterday and Hgb 9.5 today 3. R Patellar Fracture--surgery by Dr. Hendricks performed 4. H/o CAD--resume plavix and aspirin 5. H/o GI Ulcer--protonix 6. H/o Pulmonary Lesion--follows with oncology Supervisory-Addendum Brief Verification & Attestation Participated in pt care: history, physical Personally performed: exam, history, supervision of care Care discussed with: Medical Student Procedures: n/a Results interpretation: Verified all documentation See DC summary. Discharged to inpatient rehab today. SHERRY MORALES Feb 18, 2021 08:30 [place] MO DO Feb 18, 2021 18:29
--- NOTE | 2021-02-18 08:40 | Cardiology Progress Note ---
Subjective Date Seen by Provider: Feb 18, 2021 Time Seen by Provider: 08:38 Subjective/Events-last exam Patient is sitting up in bed, reports improvement in her knee pain. Denies any chest pain Review of Systems General: No Chills, No Night Sweats; Fatigue, Malaise; No Appetite, No Other HEENT: No Head Aches, No Visual Changes, No Eye Pain, No Ear Pain, No Dysphasia , No Sinus Congestion, No Post Nasal Drip, No Sore Throat, No Other Pulmonary: No Dyspnea, No Cough, No Pleuritic Chest Pain, No Other Cardiovascular: No: Chest Pain, Palpitations, Orthopnea, Paroxysmal Noc. Dyspnea, Edema, Lt Headedness, Other Objective-Cardiology Exam Last Set of Vital Signs Vital Signs 02/15/21 02/16/21 02/18/21 02/18/21 21:53 13:40 07:59 09:37 Temp 36.6 Pulse 58 Resp 18 B/P (MAP) 137/63 (87) Pulse Ox 95 O2 Delivery Room Air O2 Flow Rate 3 FiO2 21 I&O Intake and Output 02/18/21 00:00 Intake Total 2370 ml Output Total 850 ml Balance 1520 ml Intake Oral 1150 ml IV Total 1120 ml Other 100 ml Output Urine Total 850 ml General: Alert, Oriented X3, Cooperative HEENT: Atraumatic, PERRLA Neck: No JVD Lungs: Clear to Auscultation, Normal Air Movement Heart: Regular Rate, Normal S1, Normal S2 Abdomen: Normal Bowel Sounds, Soft Extremities: No Edema Skin: No Rashes, No Significant Lesion Neuro: Normal Speech, Cranial Nerves 3-12 NL Psych/Mental Status: Mood NL Results Lab Laboratory Tests 02/17/21 14:52 02/18/21 05:14 A/P-Cardiology Admission Diagnosis Right patella fracture Coronary artery disease Anemia Peptic ulcer disease Assessment/Plan Right patella fracture, s/p repair 02/16/21 Coronary artery disease, cardiac catheterization done by Dr. Daniel on October 13, 2020 showing severe stenosis in the mid LAD, had a long drug-eluting Mary stent 2.5 x 28 mm deployed to the mid LAD with excellent results. Has severe stenosis/95% stenosis in the mid right coronary artery, patient did not agree on the intervention at that time. No active chest pain, maintained on aspirin and Plavix which were restarted this morning. Anemia, s/p transfusion. Continue to monitor H/H Congestive heart failure, chronic compensated left ventricular systolic dysfunction, ejection fraction 40% Abnormal baseline EKG with left bundle branch block, chronic, repeat EKG today showed no change from baseline. History of peptic ulcer disease, GI bleed, maintained on PPI, managed by Dr. Kaiser Hypertension, has been on losartan as an outpatient History of syncope in September 2020, no further episodes were reported. Continue to monitor Pulmonary nodule, has been followed as an outpatient by primary care physician Extobaccoism, stopped smoking 2011. Patient was seen and evaluated with Radha, examination performed, management plan was discussed, agree with the current scribed note, I made few changes to the note using Italic font Patient was seen at bedside, laying down comfortably, denied any chest pain Complaining of back pain and knee pain Continue to monitor H&H Supervisory-Addendum Brief Supervisory Addendum Participated in pt care: history, MDM, physical Personally performed: exam, history, MDM Care discussed with: VANESSA Results interpretation: Verified all documentation RADHA HARGROVE Feb 18, 2021 08:40 AL BRITO MD Feb 18, 2021 09:42
[2021-02-18] MEDS: SENNA W/DOCUSATE (SENOKOT S) TABLET PO SCH (08:53)
[2021-02-18] MEDS: PARoxetine 10 MG (PAXIL) TAB PO SCH (08:54)
[2021-02-18] MEDS ORDERED: CLOPIDOGREL 75 MG (PLAVIX) TABLET PO SCH (09:00)
[2021-02-18] MEDS ORDERED: PANTOPRAZOLE 40 MG (PROTONIX) TAB PO SCH (09:00)
[2021-02-18] MEDS ORDERED: ASPIRIN E.C. 81 MG (ECOTRIN) TAB PO SCH (09:00)
--- NOTE | 2021-02-18 10:07 | Progress Note - Ortho ---
Progress Note Subjective Date of Exam 02/18/21 Chief Complaint POD#2 Reattachment of patella tendon to inferior pole of patella right knee HPI/Events since last exam Mrs. Pantoja is 2 days postop. She continues with pain although it is improved. No other complaints. She is being transferred to rehab today. Review of Systems Reviewed and no additions or change Allergies: Coded Allergies: Penicillins (Verified Allergy, Mild, Skin rash Several years ago, 02/16/21) hydrocodone (Verified Allergy, Mild, The patient states that the hydrocodone made her feel "goofy, 02/16/21) Home Meds Reported Medications Aspirin (Aspirin EC) 81 Mg Tablet.dr, 162 MG PO HS PRN for RESTLESSNESS, TAB TAKES 2 (81MG) TABS 02/16/21 Pantoprazole Sodium (Pantoprazole Sodium) 20 Mg Tablet.dr, 20 MG PO BID WITH MEALS, TAB 02/16/21 [Balance Of Nature] No Conflict Check, 1 EACH PO DAILY 12/09/20 Clopidogrel Bisulfate (Clopidogrel) 75 Mg Tablet, 75 MG PO 1200, TAB 12/09/20 Aspirin (Aspirin EC) 81 Mg Tablet.dr, 81 MG PO DAILY, TAB 12/09/20 Discontinued Reported Medications Acetaminophen (Tylenol Extra Strength) 500 Mg Tablet, 500 MG PO Q8H PRN for P AIN-MILD (1-4), TAB 12/09/20 Atorvastatin Calcium (Atorvastatin Calcium) 40 Mg Tablet, 40 MG PO 1200 W/MEAL, TAB 12/09/20 Losartan Potassium (Losartan Potassium) 50 Mg Tablet, 50 MG PO 1800 W/MEAL, TAB 12/09/20 Discontinued Scripts Diclofenac Sodium (Arthritis Pain) 100 Gm Gel..gram., 2 GM TP QID PRN for PAIN- MODERATE (5-7), #1 EA Prov:RADHA SCOTT MD 12/17/20 Permethrin (Permethrin) 60 Gm Cream..g., 60 GM TP ONCE, #1 EA 1 Refill Apply head to toe and leave on overnight. Repeat in 1 week if needed. Prov:RADHA SCOTT MD 12/17/20 Pantoprazole Sodium (Pantoprazole Sodium) 40 Mg Tablet.dr, 40 MG PO DAILY, #28 TAB Prov:POPEYE ERAZO MD 12/12/20 Sucralfate (Sucralfate) 1 Gm Tablet, 1 GM PO ACHS, #28 TAB Prov:POPEYE ERAZO MD 12/12/20 Paroxetine HCl (Paroxetine HCl) 10 Mg Tablet, 10 MG PO DAILY for 30 Days, #30 TAB Prov:POPEYE ERAZO MD 12/12/20 Objective Exam Constitutional: [] HEENT: [] Neck: [] Cardiovascular: [] Respiratory: [] Gastrointestinal: [] Genitourinary: [] Skin: [] Back/Spine: [] Extremities: [Her splint was removed. Her wound looks good. Her dressing was changed. She is unable to do a straight leg raise but is able to fire off her quadriceps. Her splint was reapplied. She has normal sensation to her foot and toes with good cap refill and good pulses. No calf tenderness negative Homans] Neurologic: [] Psychiatric: [] Hematologic/lymphatic/immunologic: [] Vital Signs Vital Signs Date Time Temp Pulse Resp B/P (MAP) Pulse Ox O2 Delivery O2 Flow Rate FiO2 02/18/21 09:37 Room Air 02/18/21 07:59 36.6 58 18 137/63 (87) 95 Room Air 02/18/21 07:34 93 Room Air 02/18/21 03:44 37.2 64 18 139/64 (89) 93 Room Air 02/18/21 00:21 37.1 67 22 131/67 (88) 93 Room Air 02/17/21 21:00 90 Room Air 02/17/21 20:05 Room Air 02/17/21 19:38 37.6 65 20 126/57 (80) 92 Room Air 02/17/21 16:00 37.4 70 20 128/60 (82) 92 Room Air 02/17/21 14:23 36.3 68 18 157/74 95 Room Air 02/17/21 12:08 36.3 65 18 119/47 96 Room Air 02/17/21 11:51 35.9 63 18 144/67 (92) 94 Room Air 02/17/21 11:51 35.9 63 18 144/67 94 Room Air 02/17/21 11:19 36.6 65 18 136/62 96 Room Air I & O 02/18/21 07:00 Intake Total 1320 ml Output Total 1150 ml Balance 170 ml Lab Results Laboratory Tests 02/17/21 14:52: Hemoglobin 9.9L 02/18/21 05:14: Hemoglobin 9.5#L, Hematocrit 29L Microbiology 02/16/21 MRSA Screen - Final, Complete MRSA not isolated Assessment and Plan Assessment Doing well 2 days postop Problem List Unchanged Plan Continue with walker ambulation nonweightbearing on the right. Continue with knee immobilizer. Final Diagonsis Fracture inferior pole patella right knee status post reattachment of patella tendon Level of the visit: Level 3 ATIYA TIERNEY MD Feb 18, 2021 10:07
[2021-02-18] MEDS ORDERED: TRM50T PO (10:44)
[2021-02-18] MEDS ORDERED: PARO10TA3 PO (10:44)
[2021-02-18] MEDS ORDERED: PANT40TA52 PO (10:44)
[2021-02-18 12:00] VITALS: BP 147/67
[2021-02-18 13:05] VITALS: BP 147/67
--- NOTE | 2021-02-18 18:34 | Discharge Summary ---
Diagnosis/Chief Complaint Date of Admission Feb 15, 2021 at 20:21 Date of Discharge Feb 18, 2021 at 13:14 Discharge Date: Feb 18, 2021 Discharge Diagnosis 1. Right Patellar Fracture--S/P surgery, pain well controlled, in knee immobilizer, plan is for DC to IRF today 2. Acute on Chronic Anemia--post op anemia from normal blood loss--S/P blood transfusion--will start iron today, monitor H/H 3. CAD with need for another stent--resume plavix and aspirin 4. History of Bleeding Ulcer--on protonix 5. Right Lung Lesion--is supposed to start radiation with Dr. Christensen next week 6. Anxiety--paxil restarted Discharge Summary Hospital Course Was the Problem List Reviewed?: Yes Hospital Course This is a 80 year old female with a known history of CAD with recent bleeding ulcer and anemia who presented to the emergency room after a fall. She sustained a fracture of her right patella. She was admitted to the medical floor in a knee immobilizer and taken to surgery the next day by Dr. Hendricks. Prior to surgery she was only using tylenol for pain control but postoperatively she was given fentanyl. Her hemoglobin prior to surgery was 8.2 and dropped to 6.3 postoperatively. She received 3 units of pRBCs and her hemoglobin is stable at 9.2. Her plavix and aspirin have been restarted. PT and OT have also been started. She will need rehab due to non weight bearing status. She has been continued on protonix at BID dosing due to her history of bleeding ulcers. She is supposed to start radiation with Dr. Christensen next week at the cancer center so they will be notified of her admission. She will be transferred to rehab to continue OT/PT and monitor her H/H. Labs Laboratory Tests 02/15/21 22:34: Red Blood Count 3.15L, Hemoglobin 8.2L, Hematocrit 26L, Mean Corpuscular Hemoglobin Concent 31L, Red Cell Distribution Width 18.2H, Neutrophils (%) (Auto) 88H, Lymphocytes (%) (Auto) 7L, Neutrophils # (Auto) 8.1H, Lymphocytes # (Auto) 0.6L, Sodium Level 134L, Blood Urea Nitrogen 21H, Glucose Level 124H 02/17/21 05:25: Hemoglobin 6.3#*L, Hematocrit 21L 02/17/21 14:52: Hemoglobin 9.9L 02/18/21 05:14: Hemoglobin 9.5#L, Hematocrit 29L Procedures None. Discharge Physical Examination Allergies: Coded Allergies: Penicillins (Verified Allergy, Mild, Skin rash Several years ago, 02/16) hydrocodone (Verified Allergy, Mild, The patient states that the hydrocodone made her feel "goofy, 02/16/21) Vitals & I&Os Vital Signs Date Time Temp Pulse Resp B/P (MAP) Pulse Ox O2 Delivery O2 Flow Rate FiO2 02/18/21 13:05 36.4 96 18 147/67 96 Room Air 3.00 02/15/21 21:53 21 General Appearance: Alert, Oriented X3 Respiratory: Clear to Auscultation Cardiovascular: Regular Rate Abdominal: Normal Bowel Sounds, Soft Extremities: Other (RLE swelling/bruising) Skin: Other (Right knee dressing in place with right leg immobilizer in place) Psych/Mental Status: Mental Status NL Discharge Home Medications Reviewed and agree with Discharge Medication list on patient's Discharge Instruction sheet Instructions to Patient/Family Please see electronic discharge instructions given to patient. ROBSON MO DO Feb 18, 2021 18:34
== END 2021-02-18 13:14 | DRG 501 ==
LOC: EDUNIT# 18:48 → ER 18:49 → 4TH 20:21
PROVIDERS: ADMIT Family Medicine; ATTEND Family Medicine
PROC: 0LMQ0ZZ Reattachment of Right Knee Tendon, Open Approach (ICD-10-PCS; principal; 2021-02-16 12:03)
DX: S82.031A Displaced transverse fracture of right patella, initial encounter for closed fracture (principal); D62 Acute posthemorrhagic anemia; I50.22 Chronic systolic (congestive) heart failure; I25.10 Atherosclerotic heart disease of native coronary artery without angina pectoris; W18.30XA Fall on same level, unspecified, initial encounter; K25.9 Gastric ulcer, unspecified as acute or chronic, without hemorrhage or perforation; J98.4 Other disorders of lung; F41.9 Anxiety disorder, unspecified; I11.0 Hypertensive heart disease with heart failure; R91.1 Solitary pulmonary nodule; Z87.891 Personal history of nicotine dependence; Z95.5 Presence of coronary angioplasty implant and graft; Z88.5 Allergy status to narcotic agent; Z88.0 Allergy status to penicillin; Z79.82 Long term (current) use of aspirin; Z79.899 Other long term (current) drug therapy
CPT/HCPCS: 36415; 73562; 73700; 80053; 82607; 83540; 85007; 85014; 85018; 85027; 86850; 86900; 86901; 86920; 87081; 93005; 94640; 94664; 94760

== ENCOUNTER 2021-02-18 13:25 | Inpatient (IN) | payer MEDICARE ==
[~2021-02-18] VITALS: Ht 163 cm; Wt 43.3 kg
[~2021-02-18 13:25] MED LIST changes: +ACETAMINOPHEN 500 MG TAB (TYLENOL) PO PRN; +BISACODYL 10 MG SUPP (DULCOLAX) PR PRN; +DOCUSATE SODIUM 100 MG (COLACE) CAP PO PRN; +FLEET ENEMA ADULT 1 EA BTL PR PRN; +LACTULOSE SYRUP 10GM/15ML (ENULOSE) 30ML UDC PO PRN; +MELATONIN 3 MG TABLET PO PRN; +ONDANSETRON 4 MG (ZOFRAN) ORAL DISSOLVE TAB PO PRN; +PANT20TA18 PO; +TRM50T PO; +diphenhydrAMINE 25 MG TAB (BENADRYL) PO PRN; +guaiFENesin/CODEINE (ROBITUSSIN AC) 10ML UDC PO PRN
--- NOTE | 2021-02-18 13:41 | Progress Note ---
ADRIANA GONZÁLES MED STUDENT 02/18/21 1341: Progress Note H&P CC: R patellar fx s/p repair 02/16/21 HPI: Erica is an 80yo female presenting to [facility] for PT/OT rehab s/p R patellar fx repair. She states that on Monday, she was in her kitchen preparing a meal when she pivoted and inadvertently hit her R knee on a partially open cabinet door. Denies falling or losing consciousness. She subsequently experienced severe pain and called an acquaintance for assistance, after which she was taken by EMS to the ED. She had the repair done by Dr. Hendricks on Friday 02/16; her Hgb post-op was 6.3 so she was transfused 4U PRBC. She has history of significant CAD with severe LAD stenosis with stent placement in September, severe RCA stenosis with no intervention. She had an UGIB in November r/t PUD and antiplatelet medication that required 2U PRBC transfusion. Currently, she has complaint of 7/10 pain to her RLE knee/lower leg, she has been taking 1000mg Tylenol with minimal relief but does not feel like she needs more medication, improves with rest. Per Ortho, she is NWB to her RLE and limit knee flexion. Casanova in place draining clear yellow, no dysuria. Last bm on Monday, 4 days ago prior to the incident. No complaints of chest pain, SOB, N/V, abd pain, fevers/chills. ROS: Denies headache, chest pain, SOB, N/V, fevers/chills, numbness, tingling, dysuria PMHx: CAD w/ 1x stent in September 2020, CHF EF 40%, PVD, HTN, Anemia, Hematuria, Pulmonary nodule PSHx: R patellar fx repair 02/16/21, appendectomy, hysterectomy, coronary stent x1 FHx: Reports significant cardiac disease history in siblings and parents Medications: Active Scripts Active Pantoprazole Sodium 40 Mg Tablet. 40 Mg PO BID Paroxetine HCl 10 Mg Tablet 10 Mg PO DAILY Tramadol HCl 50 Mg Tablet 50 Mg PO Q6H PRN Reported Clopidogrel (Clopidogrel Bisulfate) 75 Mg Tablet 75 Mg PO 1200 Aspirin EC (Aspirin) 81 Mg Tablet. 81 Mg PO DAILY Allergies Coded Allergies Penicillins (Verified Allergy, Mild, Skin rash Several years ago, 02/16/21) hydrocodone (Verified Allergy, Mild, The patient states that the hydrocodone made her feel "goofy, 02/16/21) SocialHx: denies history of tobacco use, drinks a couple glasses of wine weekly, denies recreational drug use. about 5 years ago and she appears to be affected significantly. Daughter lives in [place]. Has family in [place]. PE: VS: Pending Labs: Pending General: awake, alert, pleasant. NAD. gaunt/cachectic appearance. Neuro: A&Ox3. HEENT: PERRLA, EOMI. moist mucosa, no lymphadenopathy CV: RRR, systolic murmur, pulses +2/4 x4 extremities, no JVD Pulm: Lungs CTAB, no accessory muscle use Abd: BS active x4, mild distention/tenderness lower abd/pelvis : casanova in place draining clear yellow MSK: R knee anterior midline incision secured with april, dressing with moderate serosanguinous drainage, moderate soft tissue swelling mid-thigh to ankle. R ankle sensation intact, +4/5 strength, R knee immobilized in brace. All other extremities full ROM, strength +4/5. Skin: warm, dry, thin/frail skin, no rash/lesions Psych: trouble with coping from loss of 5 years ago A/P: POD#2 s/p R patellar fracture repair 02/16 RLE immobilized in brace, currently NWB per Dr. Hendricks PT/OT assessment and rehab Dressing changes QOD Pain managed with Tylenol, Tramadol Last BM 4 days ago, Anemia History of multiple transfusions, received 4U PRBC 02/16 Hgb on 02/17 9.5 after transfusion Iron/B12 labs ordered CAD w/ 1x stent Followed by Cardiology Continue Aspirin/Plavix PUD Hx bleeding requiring transfusion Continue PPI Cachexia Dietary consult CHF PVD HTN AIYANA COSTA DO 02/19/21 0750: Supervisory-Addendum Brief Verification & Attestation Participated in pt care: history, MDM, physical Personally performed: exam, history, MDM, supervision of care Care discussed with: Medical Student Procedures: n/a Results interpretation: Verified all documentation Verification and Attestation of Medical Student E/M Service A medical student performed and documented this service in my presence. I reviewed and verified all information documented by the medical student and made modifications to such information, when appropriate. I personally performed the physical exam and medical decision making. Aiyana Costa, Feb 19, 2021,05:50 ADRIANA GONZÁLES MED STUDENT Feb 18, 2021 13:41 AIYANA COSTA DO Feb 19, 2021 05:50
--- OUTSIDE RECORDS SUMMARY | 2021-02-18 13:43 | XMS REPORT | CCD ---
Author Author Erica Mccormick D.O. Organization [facility] Address [address] [place] [address] Phone Care Team Providers Care Lead Shop Operator Name Role Phone PP Unavailable CCM Unavailable Summary Purpose Interface Exchange Insurance Providers Payer name Policy type / Coverage type Covered democrat ID Effective Begin Date Effective End Date WPS MEDICARE PART B [place] Medicare Part B [id number] Unknown Unknown [employer] [place] MEDIC[place] SU[place] Medicare Part B X [id number] Unknown Unknown Family History Family History data not found Social History Social History Element Codes Description Effective Dates Marital status Unknown 09/10/2019 Number of children Unknown 1 09/10/2019 Employment Unknown Retired 09/10/[address]: 2698453 Former smoker quit 201109/10/[address]: 010726 Currently drinks alcohol 09/09 Frequency of drinks SNOMED CT: 088949759 1-4 drinks per week Allergies, Adverse Reactions, [...] 325 mg (65 mg iron) tablet RxNorm: 797618 Take 1 Tablet(s) Oral QD 01/28/2021 No Stop Date Active paroxetine 20 mg tablet RxNorm: 9445056 1 Tablet(s) Oral QD 01/20/2021 Inactive pantoprazole 20 mg tablet,delayed release RxNorm: 229791 1 Tablet(s) Oral two times a day 12/22/2020 03/21/2021 Active pantoprazole 20 mg tablet,delayed release RxNorm: 906341 1 Tablet(s) Oral two times a day 12/22/2020 12/22/2020 Inactive paroxetine 20 mg tablet RxNorm: 4605731 1 Tablet(s) Oral QD 12/15/2020 Inactive paroxetine 20 mg tablet RxNorm: 2288027 1 Tablet(s) Oral QD 12/15/2020 Inactive MagOx 400 mg (241.3 mg magnesium) tablet RxNorm: 309244 Take 1 Tablet(s) Oral every night at bedtime with melatonin 11/23/2020 01/24/2021 Inactive melatonin 3 mg tablet RxNorm: 432180 Take 1-2 Tablet(s) Oral every night at bedtime 11/18/2020 No Stop Date Active atorvastatin 40 mg tablet RxNorm: 744528 Take 1 Tablet( s) Oral every night at bedtime 11/10/2020 No Stop Date Active Plavix 75 mg tablet RxNorm: 625353 Take 1 Tablet(s) Oral QD No Stop Date Active trazodone 50 mg tablet RxNorm: 058531 Take 1-2 Tablet(s ) Oral QPM as needed for sleep 11/10/2020 11/22/2020 Inactive alprazolam 0.25 mg tablet RxNorm: 515144 1/2-1 Tablet(s ) Oral QPM as needed for sleep 08/03/2020 09/01/2020 Inactive alprazolam 0.25 mg tablet RxNorm: 777072 1/2-1 Tablet(s ) Oral QPM as needed for sleep 08/03/2020 08/02/2020 Inactive Aspirin Low Dose 81 mg tablet,delayed release RxNorm: 991290 1 Tablet(s) Oral QD 09/10/2019 No Stop Date Active losartan 25 mg tablet RxNorm: 964446 1 Tablet(s) Oral QD 09/10/2019 No Stop Date Active carvedilol 6.25 mg tablet RxNorm: 201805 1 Tablet(s) Oral two t imes a day 09/10/2019 11/09/2020 Inactive Fish Oil 1,000 mg (120 mg-180 mg) capsule RxNorm: 1 Caps ule(s) Oral QD 09/10/2019 11/25/2019 Inactive Medication Administered No Medication Administered data Immunizations No Immunization data Results Observation Observation Code Item Item Code Result Date S ervice Location UA W/MICR 53533 UA Protein TNP:Specimen Not Received Unknown UA W/MICR 23713 UA Hemoglobin TNP:Specimen Not Received 02/17/2021 Unknown UA W/MICR 96325 UA Glucose TNP:Specimen Not Received Unknown UA W/MICR 16336 UA Ketones TNP:Specimen Not Received Unknown UA W/MICR 43057 UA pH TNP:Specimen Not Received Unknown UA W/MICR 39473 U Spec [place] TNP:Specimen Not Received 02/17/2021 Unknown UA W/MICR 42671 UA Bilirubin TNP:Specimen Not Received 02/17/2021 Unknown UA W/MICR 72752 UA Leuk [place]ster[place] TNP:Specimen Not Receive d 02/17/2021 Unknown UA W/MICR 77493 UA Nitrite TNP:Specimen Not Received Unknown UA W/MICR 21466 UA WBC/hpf TNP:Specimen Not Received Unknown UA W/MICR 61246 UA RBC hpf TNP:Specimen Not Received Unknown UA W/MICR 03604 UA Protein TNP:Specimen Integrity 01/27 Unknown UA W/MICR 90326 UA Hemoglobin TNP:Specimen Integrity Unknown UA W/MICR 98454 UA Glucose TNP:Specimen Integrity 01/27 Unknown UA W/MICR 42613 UA Ketones TNP:Specimen Integrity 01/27 Unknown UA W/MICR 39088 UA pH TNP:Specimen Integrity 2020 Unknown UA W/MICR 26052 U Spec [place] TNP:Specimen Integrity 1 Unknown UA W/MICR 27663 UA Bilirubin TNP:Specimen Integrity 09/2020 Unknown UA W/MICR 43208 UA Leuk [place] TNP:Specimen Integrity 01/27/2021 Unknown UA W/MICR 19986 UA Nitrite TNP:Specimen Integrity 01/27 Unknown UA W/MICR 46110 UA WBC/hpf TNP:Specimen Integrity 01/27 Unknown UA W/MICR 28049 UA RBC hpf TNP:Specimen Integrity 01/27 Unknown COMPLETE BLOOD COUNT [id number] WBC 6.1 10e9/L 01/26/20 21 Unknown COMPLETE BLOOD COUNT [id number] RBC 3.34 10e12/L 2020 Unknown COMPLETE BLOOD COUNT [id number] HEMOGLOBIN 8.8 g/dL 01/26/20 21 Unknown COMPLETE BLOOD COUNT [id number] HEMATOCRIT 28.5 % 01/26/20 21 Unknown COMPLETE BLOOD COUNT [id number] MCV 85.3 fL 1 Unknown COMPLETE BLOOD COUNT 1532016 MCH 26.3 pg 1 Unknown COMPLETE BLOOD COUNT [id number] MCHC 30.9 g/dL 1 Unknown COMPLETE BLOOD COUNT [id number] PLATELET COUNT 268 10e9/L 07/2020 Unknown COMPLETE BLOOD COUNT [id number] Mean Plt Volume 8.7 fL 07/2020 Unknown COMPLETE BLOOD COUNT [id number] Neut Auto 67.7 % 1 Unknown COMPLETE BLOOD COUNT 0376803 Lymph Auto 19.4 % 01/26/20 21 Unknown COMPLETE BLOOD COUNT 1122981 Banner Auto 8.4 % 1 Unknown COMPLETE BLOOD COUNT [id number] RDW 16.7 % 1 Unknown COMPLETE BLOOD COUNT [id number] Eos Auto 3.8 % 1 Unknown COMPLETE BLOOD COUNT [id number] Baso Auto 0.7 % 1 Unknown COMPLETE BLOOD COUNT [id number] Neutrophil Abs 4.13 10e9/L Unknown COMPLETE BLOOD COUNT [id number] Lymphocyte Abs 1.18 10e9/L Unknown COMPLETE BLOOD COUNT [id number] Monocyte Abs 0.51 10e9/L 10/0 07/2020 Unknown COMPLETE BLOOD COUNT [id number] Eosinophil Abs 0.23 10e9/L Unknown COMPLETE BLOOD COUNT [id number] Basophil Abs 0.04 10e9/L 07/2020 Unknown COMPLETE BLOOD COUNT [id number] RDW-SD 50.9 fL Unknown COMPREHENSIVE METABOLIC 30006 AST 17 U/L 2020 Unknown COMPREHENSIVE METABOLIC 78313 ALT 13 U/L 2020 Unknown COMPREHENSIVE METABOLIC 31752 BUN 14 mg/dL 2020 Unknown COMPREHENSIVE METABOLIC 42323 ALBUMIN 4.1 g/dL 2020 Unknown COMPREHENSIVE METABOLIC 61871 CHLORIDE 102 mmol/L 01/25 Unknown COMPREHENSIVE METABOLIC 77391 Bili Total 0.4 mg/dL 01/25 Unknown COMPREHENSIVE METABOLIC 09959 ALK PHOS 85 U/L 2020 Unknown COMPREHENSIVE METABOLIC 70345 SODIUM 134 mmol/L 01/25 Unknown COMPREHENSIVE METABOLIC 90787 CREATININE 0.71 mg/dL 07/2020 Unknown COMPREHENSIVE METABOLIC 79526 CALCIUM 9.3 mg/dL 2020 Unknown COMPREHENSIVE METABOLIC 30817 POTASSIUM 4.3 mmol/L 01/25 Unknown COMPREHENSIVE METABOLIC 34375 Total Protein 7.0 g/dL Unknown COMPREHENSIVE METABOLIC 20857 Glucose 111 mg/dL 2020 Unknown COMPREHENSIVE METABOLIC 28745 Bicarbonate 24 mmol/L 07/2020 Unknown COMPREHENSIVE METABOLIC 42363 AGAP 8 mmol/L 2020 Unknown GFR CALC 0028994 GFR Non Afr Amr >60 mL/min 01/25/2021 Un known GFR CALC [id number] GFR Afr Amr >60 mL/min 01/25/2021 Unknow n COMPREHENSIVE METABOLIC 12493 AST 16 U/L 2019 Unknown COMPREHENSIVE METABOLIC 43565 ALT 12 U/L 2019 Unknown COMPREHENSIVE METABOLIC 33893 BUN 13 mg/dL 2019 Unknown COMPREHENSIVE METABOLIC 51623 ALBUMIN 4.1 g/dL 2019 Unknown COMPREHENSIVE METABOLIC 79521 CHLORIDE 96 mmol/L 2019 Unknown COMPREHENSIVE METABOLIC 93584 Bili Total 1.1 mg/dL 04/09 Unknown COMPREHENSIVE METABOLIC 15200 ALK PHOS 80 U/L 2019 Unknown COMPREHENSIVE METABOLIC 22423 SODIUM 131 mmol/L 04/09 Unknown COMPREHENSIVE METABOLIC 31801 CREATININE 0.76 mg/dL 03/24 Unknown COMPREHENSIVE METABOLIC 97460 CALCIUM 9.0 mg/dL 2019 Unknown COMPREHENSIVE METABOLIC 92142 POTASSIUM 4.2 mmol/L 04/09 Unknown COMPREHENSIVE METABOLIC 26069 Total Protein 6.8 g/dL Unknown COMPREHENSIVE METABOLIC 58671 Glucose 101 mg/dL 2019 Unknown COMPREHENSIVE METABOLIC 20534 Bicarbonate 25 mmol/L 03/24 Unknown COMPREHENSIVE METABOLIC 40915 AGAP 10 mmol/L 2019 Unknown GFR CALC 1184689 GFR Non Afr Amr >60 mL/min 04/09/2020 Un known GFR CALC [id number] GFR Afr Amr >60 mL/min 04/09/2020 Unknow n GAMMA GLUTAMYL TRANSFERASE 49641 GGT 19 U/L Unknown COMPLETE BLOOD COUNT 1521853 WBC 6.3 10e9/L 04/07/20 20 Unknown COMPLETE BLOOD COUNT [id number] RBC 4.36 10e12/L 2019 Unknown COMPLETE BLOOD COUNT 4869447 HEMOGLOBIN 15.2 g/dL 04/07/20 20 Unknown COMPLETE BLOOD COUNT [id number] HEMATOCRIT 43.8 % 04/07/20 20 Unknown COMPLETE BLOOD COUNT [id number] MCV 100.5 fL 0 Unknown COMPLETE BLOOD COUNT [id number] MCH 34.9 pg 0 Unknown COMPLETE BLOOD COUNT 6906547 MCHC 34.7 g/dL 0 Unknown COMPLETE BLOOD COUNT 1795502 PLATELET COUNT 254 10e9/L Unknown COMPLETE BLOOD COUNT 4500601 Mean Plt Volume 9.9 fL Unknown COMPLETE BLOOD COUNT 0954131 Neut Auto 63.3 % 0 Unknown COMPLETE BLOOD COUNT [id number] Lymph Auto 24.5 % 04/07/20 20 Unknown COMPLETE BLOOD COUNT 9228315 Banner Auto 8.4 % 0 Unknown COMPLETE BLOOD COUNT 5197665 RDW 12.8 % 0 Unknown COMPLETE BLOOD COUNT 3604158 Eos Auto 3.2 % 0 Unknown COMPLETE BLOOD COUNT 1311396 Baso Auto 0.6 % 0 Unknown COMPLETE BLOOD COUNT 5908367 Neutrophil Abs 3.99 10e9/L Unknown COMPLETE BLOOD COUNT 1392642 Lymphocyte Abs 1.54 10e9/L Unknown COMPLETE BLOOD COUNT [id number] Monocyte Abs 0.53 10e9/L 03/24 Unknown COMPLETE BLOOD COUNT [id number] Eosinophil Abs 0.20 10e9/L Unknown COMPLETE BLOOD COUNT 8877190 RDW-SD 47.6 fL 0 Unknown COMPLETE BLOOD COUNT 8714588 Basophil Abs 0.04 10e9/L 03/24 Unknown VITAMIN B 12 79471 VITAMIN B12 661 pg/mL 04/07/2020 Unkn own GFR CALC [id number] GFR Non Afr Amr >60 mL/min 09/30/2019 Un known GFR CALC 3899481 GFR Afr Amr >60 mL/min 09/30/2019 Unknow n COMPLETE BLOOD COUNT 8799419 WBC 5.3 10e9/L 09/30/19 20 Unknown COMPLETE BLOOD COUNT 7939622 RBC 4.16 10e12/L 2019 Unknown COMPLETE BLOOD COUNT 4921363 HEMOGLOBIN 14.1 g/dL 09/30/19 20 Unknown COMPLETE BLOOD COUNT [id number] HEMATOCRIT 42.6 % 09/30/19 20 Unknown COMPLETE BLOOD COUNT 6228990 MCV 102.4 fL 0 Unknown COMPLETE BLOOD COUNT 7615749 MCH 33.9 pg 0 Unknown COMPLETE BLOOD COUNT 5311528 MCHC 33.1 g/dL 0 Unknown COMPLETE BLOOD COUNT 2318027 PLATELET COUNT 273 10e9/L 11/2019 Unknown COMPLETE BLOOD COUNT 5076273 Mean Plt Volume 9.4 fL 11/2019 Unknown COMPLETE BLOOD COUNT 2849298 Neut Auto 57.3 % 0 Unknown COMPLETE BLOOD COUNT 8637522 Lymph Auto 29.3 % 09/30/19 20 Unknown COMPLETE BLOOD COUNT 6645649 Banner Auto 7.6 % 0 Unknown COMPLETE BLOOD COUNT 6729720 RDW 13.8 % 0 Unknown COMPLETE BLOOD COUNT 5872385 Eos Auto 4.5 % 0 Unknown COMPLETE BLOOD COUNT 8079231 Baso Auto 1.3 % 0 Unknown COMPLETE BLOOD COUNT 7545249 Neutrophil Abs 3.04 10e9/L Unknown COMPLETE BLOOD COUNT 9455196 Lymphocyte Abs 1.55 10e9/L Unknown COMPLETE BLOOD COUNT 5343789 Monocyte Abs 0.40 10e9/L 11/2019 Unknown COMPLETE BLOOD COUNT 0635701 Eosinophil Abs 0.24 10e9/L Unknown COMPLETE BLOOD COUNT 9593112 RDW-SD 50.7 fL 0 Unknown COMPLETE BLOOD COUNT [id number] Basophil Abs 0.07 10e9/L 11/2019 Unknown COMPREHENSIVE METABOLIC 01926 AST 14 U/L 2019 Unknown COMPREHENSIVE METABOLIC 75024 ALT 11 U/L 2019 Unknown COMPREHENSIVE METABOLIC 35330 BUN 15 mg/dL 2019 Unknown COMPREHENSIVE METABOLIC 60946 ALBUMIN 4.0 g/dL 2019 Unknown COMPREHENSIVE METABOLIC 64715 CHLORIDE 96 mmol/L 2019 Unknown COMPREHENSIVE METABOLIC 30527 Bili Total 0.9 mg/dL 09/29 Unknown COMPREHENSIVE METABOLIC 22441 ALK PHOS 72 U/L 2019 Unknown COMPREHENSIVE METABOLIC 12830 SODIUM 132 mmol/L 09/29 Unknown COMPREHENSIVE METABOLIC 96578 CREATININE 0.73 mg/dL 11/2019 Unknown COMPREHENSIVE METABOLIC 30363 CALCIUM 9.1 mg/dL 2019 Unknown COMPREHENSIVE METABOLIC 74653 POTASSIUM 4.6 mmol/L 09/29 Unknown COMPREHENSIVE METABOLIC 70564 Total Protein 6.4 g/dL Unknown COMPREHENSIVE METABOLIC 23270 Glucose 97 mg/dL 2019 Unknown COMPREHENSIVE METABOLIC 28931 Bicarbonate 25 mmol/L 11/2019 Unknown COMPREHENSIVE METABOLIC 09403 AGAP 11 mmol/L 2019 Unknown THYROID STIMULATING HORMONE 94174 TSH 2.186 uIU/mL 09/30/2019 Unknown FREE T4 52860 T4 Free 0.76 ng/dL 09/30/2019 Unknown LIPID GROUP 22722 Cholesterol 168 mg/dL 09/30/2019 Unkno wn LIPID GROUP 93136 Triglyceride 141 mg/dL 09/30/2019 Unkn own LIPID GROUP 82463 HDL CHOLESTEROL 66 mg/dL 09/30/2019 U nknown LIPID GROUP 53753 Chol/HDL Ratio 2.55 ratio 09/30/2019 U nknown LIPID GROUP 72867 NON-HDL Chol 102 mg/dL 09/30/2019 Unkn own LIPID GROUP 73731 LDL Cholesterol 74 mg/dL 09/30/2019 U nknown Procedures Procedure Codes Date UA W/MICR CPT-4: 19795 02/15/2021 URINE CULTURE/ COLONY COUNT CPT-4: 46614 02/02/2021 ROUTINE VENIPUNCTURE CPT-4: 75138 01/25/2021 COMPREHEN METABOLIC PANEL CPT-4: 96480 01/25/2021 COMPLETE CBC W/AUTO DIFF WBC CPT-4: 44153 01/25/2021 URINE CULTURE/ COLONY COUNT CPT-4: 31892 01/25/2021 URINALYSIS NONAUTO W/O SCOPE CPT-4: 45886 01/25/2021 ROUTINE VENIPUNCTURE CPT-4: 57573 07/20/2020 COMPREHEN METABOLIC PANEL CPT-4: 38643 07/20/2020 ASSAY OF FREE THYROXINE CPT-4: 10456 07/20/2020 ASSAY THYROID STIM HORMONE CPT-4: 13376 07/20/2020 COMPLETE CBC W/AUTO DIFF WBC CPT-4: 38945 07/20/2020 RBC SED RATE AUTOMATED CPT-4: 39221 07/20/2020 URINALYSIS NONAUTO W/O SCOPE CPT-4: 43004 04/30/2020 URINE CULTURE/ COLONY COUNT CPT-4: 38544 04/30/2020 ROUTINE VENIPUNCTURE CPT-4: 73235 04/07/2020 COMPLETE CBC W/AUTO DIFF WBC CPT-4: 26665 04/07/2020 VITAMIN B-12 CPT-4: 49813 04/07/2020 ASSAY OF GGT CPT-4: 34585 04/07/2020 ROUTINE VENIPUNCTURE CPT-4: 04763 09/30/2019 ASSAY OF FREE THYROXINE CPT-4: 95940 09/30/2019 ASSAY THYROID STIM HORMONE CPT-4: 75409 09/30/2019 COMPREHEN METABOLIC PANEL CPT-4: 88465 09/30/2019 COMPLETE CBC W/AUTO DIFF WBC CPT-4: 65483 09/30/2019 LIPID PANEL CPT-4: 69633 09/30/2019 Vital Signs Date Vital 01/25/2021 Blood Pressure 1: 102/68 Code: 8480-6 Heart Rate 1: 76 bpm Respiratory Rate: 20 bpm SpO2: 100% Temperature: 36.9 (C) / 98.5 (F) We ight: 87 lbs Code: 09127-2 12/30/2020 Blood Pressure 1: 134/80 Code: 8480-6 BMI: 14.1 Code: 49648-5 Heart Rate 1: 72 bpm Height: 5'5" Code: 8302-2 Respiratory Rate: 18 bpm SpO2: 97% Temperature: 36.6 (C) / 97.8 (F) Weight: 85 lbs Code: 03820-8 11/10/2020 Blood Pressure 1: 130/74 Code: 8480-6 Heart Rate 1: 56 bpm Respiratory Rate: 20 bpm SpO2: 98% Temperature: 36.3 (C) / 97.4 (F) We ight: 85 lbs Code: 64032-6 07/29/2020 Blood Pressure 1: 121/65 Code: 8480-6 BMI: 14.3 Code: 07473-7 Heart Rate 1: 58 bpm Height: 5'5" Code: 8302-2 Respiratory Rate: 15 bpm SpO2: 98% Temperature: 36.9 (C) / 98.4 (F) Weight: 86 lbs Code: 78600-7 07/20/2020 Blood Pressure 1: 123/69 Code: 8480-6 Heart Rate 1: 68 bpm Respiratory Rate: 15 bpm SpO2: 99% Temperature: 36.6 (C) / 97.8 (F) We ight: 83 lbs Code: 92896-0 04/30/2020 Blood Pressure 1: 128/82 Code: 8480-6 Heart Rate 1: 68 bpm Respiratory Rate: 20 bpm SpO2: 95% Temperature: 36.5 (C) / 97.7 (F) We ight: 91 lbs Code: 85969-8 04/09/2020 Blood Pressure 1: 130/78 Code: 8480-6 Heart Rate 1: 68 bpm Respiratory Rate: 20 bpm SpO2: 99% Temperature: 36.3 (C) / 97.4 (F) We ight: 90 lbs Code: 30554-6 11/22/2019 Temperature: 36.3 (C) / 97.3 (F) 09/10/2019 Blood Pressure 1: 128/72 Code: 8480-6 BMI: 15.6 Code: 68141-4 Heart Rate 1: 68 bpm Height: 5'5" Code: 8302-2 Respiratory Rate: 20 bpm SpO2: 97% Temperature: 36.6 (C) / 97.9 (F) Weight: 94 lbs Code: 56955-7 Functional Status No Functional Status data Reason [...] balance mutivitamins fatigue 11/22/2019 ~generic 09/10/2019 New Patient---estababdoul russo visit Encounters Encounter Performer Location Codes Date () NURSE/OUTPATIENT VISIT EST Diagnosis: Urinary tract infection[ICD10: N39.0] Robson MCCORM[facility] CPT-4: 01124 02/02/2021 ([id number]) OFFICE/OUTPATIENT VISIT EST Diagnosis: Fatigue[ICD10: R53.83] Diagnosis: Blood loss anemia[ICD10: D50.0] Diagnosis: Coronary artery disease[ICD10: I25.10] Diagnosis: Hematuria[ICD10: R31.9] Robson Milan WeilosSHANTANU CHANEL [facility] CPT-4: 97609 01/25/2021 ([id number]) OFFICE/OUTPATIENT VISIT EST Diagnosis: GERD (gastroesophageal reflux disease)[ICD10: K21.9] Diagnosis: Duodenal ulcer[ICD10: K26.9] Diagnosis: Coronary artery disease[ICD10: I25.10] Diagnosis: Anxiety[ICD10: F41.9] Diagnosis: Blood loss anemia[ICD10: D50.0] Robson MCCORMICK [facility] CPT-4: 98091 12/30/2020 ([id number]) NURSE/OUTPATIENT VISIT EST Diagnosis: Edema[ICD10: R60.9] Robson MCCORMICK [facility] CPT-4: 75338 12/21/2020 ([id number]) OFFICE/OUTPATIENT VISIT EST Diagnosis: Coronary artery disease[ICD10: I25.10] Diagnosis: Essential (primary) hypertension[ICD10: I10] Diagnosis: Stress reaction[ICD10: F43.0] Diagnosis: Insomnia[ICD10: G47.00] Diagnosis: Pulmonary nodule[ICD10: R91.1] Robson [facility] CPT-4: 37241 11/10/2020 ([id number]) NO CHARGE Diagnosis: Mass of upper lobe of right lung[ICD10: R91.8] Robson [facility]CCORM[facility] CPT-4: 52769 07/29/2020 ([id number]) OFFICE/OUTPATIENT VISIT EST Diagnosis: Fatigue[ICD10: R53.83] Diagnosis: Lymphadenopathy of head and neck[ICD10: R59.1] Diagnosis: Weight loss, non-intentional[ICD10: R63.4] Diagnosis: History of melanoma[ICD10: Z85.820] Diagnosis: Skin lesion[ICD10: L98.9] Sara Mingo ROBSON [facility]UNE[facility] CPT-4: 32094 07/20/2020 ([id number]) OFFICE/OUTPATIENT VISIT EST Diagnosis: Urinary tract infection[ICD10: N39.0] [facility] MAC [facility]: 01111 04/30/2020 ([id number]) OFFICE/OUTPATIENT VISIT EST Diagnosis: Dizziness[ICD10: R42] Diagnosis: Depressed mood with feeling of loneliness[ICD10: F32.9] Diagnosis: Insomnia[ICD10: G47.00] Robson [facility] CPT-4: 65823 04/09/2020 ([id number]) NURSE/OUTPATIENT VISIT EST Diagnosis: Coronary artery disease[ICD10: I25.10] Diagnosis: Fatigue[ICD10: R53.83] Diagnosis: Essential (primary) hypertension[ICD10: I10] Robson [facility]CCORM[facility] CPT-4: 03477 04/07/2020 ([id number]) OFFICE/OUTPATIENT VISIT EST Diagnosis: Fatigue[ICD10: R53.83] Meena Li [facility] CPT-4: 32694 11/22/2019 ([id number]) NURSE/OUTPATIENT VISIT EST Diagnosis: Essential (primary) hypertension[ICD10: I10] Diagnosis: Coronary artery disease[ICD10: I25.10] Diagnosis: Encounter for general adult medical examination with abnormal findings[ICD10: Z00.01] Robson MCCORMICK [facility] CPT-4: 97398 09/30/2019 ([id number]) OFFICE/OUTPATIENT VISIT NEW Diagnosis: Essential (primary) hypertension[ICD10: I10] Diagnosis: Coronary artery disease[ICD10: I25.10] Diagnosis: Aortic valve stenosis with insufficiency[ICD10: I35.2] Robson MCCORMICK [facility] CPT-4: 86289 09/10/2019 Plan of Care Planned Activity Notes Codes Status Date Appointment: Robson Mccormick WPtel: [address] [place] [address] patient unable to leave urine CANCELED Appointment: Robson Mccormick WPtel: [address] [place] [address] US CANCELED 02/02/2021 Appointment: Robson Mccormick WPtel: [address] [place] [address] US UA 02/02/2021 Care Plan: [facility]A W/MICR [facility] Pending 01/26/2021 Visit Diagnosis Plan: Hematuria Discussion: Culture ur ine ICD-9 : 599.70 ICD-10 : R31.9 01/25/2021 Visit Diagnosis Plan: Blood loss anemia Discussion: Ch real CBC now ICD-9 : 280.0 ICD-10 : D50.0 01/25/2021 Appointment: Robson Mccormick WPtel: [address] [place] [address] ACUTE ILLNESS 01/25/2021 Appointment: [facility] [phone] [id number] [place] CANC[facility]ED 01/01/2021 Visit Diagnosis Plan: [...] ICD-10 : K21.9 12/30/2020 Appointment: Robson Mccormicktel: [address] [place] [address] US FOLLOW UP 12/30/2020 Appointment: Robson Mccormicktel: [address] [place], [place] [phone] 12/21/2020 Visit Diagnosis Plan: Insomnia [...] ICD-10 : F43.0 11/10/2020 Appointment: Robson Mccormicktel: [address] [place], [place] [phone] US FOLLOW UP 11/10/2020 Patient Education: trazodone- [employer] Coupon [phone] [email or web address]/resources/getResource/[email or web address] Completed 11/10/2020 Visit Diagnosis Plan: Mass of upper lobe of right lung Discussion: CT scan of lung results discussed with patient and told this looks like cancer Agrees to see pulmonology to see if will be amenable to bronchoscopy to get cells/washings ICD-9 : 786.6 ICD-10 : R91.8 07/29/2020 Appointment: Robson Mccormick [facility]Ptel[facility] [phone] [id number] [facility] IN 07/29/2020 Care Plan: Referral Order SNOMED-CT : [id number] Pending 07/29/2020 Care Plan: CT SFT TSUE NCK W/O & W/DYE L OIME : 96296-6 Pending 07/21/2020 Visit Diagnosis Plan: Fatigue Discussion: [...] 07/20/2020 Appointment: [facility] [phone] [facility] [facility] 07/20/2020 Patient Education: Patient [...] ICD-10 : N39.0 04/30/2020 Appointment: Meena Li [address] [place], [place] [phone] ACUTE ILLNESS 04/30/2020 Appointment: GuillermoMeena rodriguez [address] [place], [place] [phone] 04/21/2020 1020---patient needed seen fo r appointment [...] : F32.9 04/09/2020 Appointment: Robson Mccormick WPtel: [address] [place] [address] FOLLOW UP 04/09/2020 Care Plan: COMPREHEN [place]AB[place] : 24503-0 Pending 04/09/2020 Appointment: Robson Mccormick WPtel: [address] [place], [place] [phone] [place] LAB 04/07/2020 Visit Diagnosis Plan: Fatigue Discussion: no other sym ptoms other than fatigue for 4 weeks so will update labs. order [facility] [place] [facility] [place] work and ua with c&s. instructed to call office with new or worsening symptoms. ICD-9 : 780.79 ICD-10 : R53.83 11/22/2019 Appointment: Meena Li [address] [place], [place] [phone] US TELEMEDICINE 11/22/2019 Appointment: Robson Mccormick WPtel: [address] [place], [place] [phone] US LAB 09/30/2019 Visit Diagnosis Plan: Coronary [...] : I10 09/10/2019 Appointment: Robson Mccormick WPtel: [address] [place] [address] US NEW PATIENT 09/10/2019 Patient Education: carvedilol- [employer] Coupon [phone] [email or web address]/[email or web address] Completed 09/10/2019 Appointment: Robson Mccormick WPtel: [address] [place], [place] [phone] US RESCHEDULED 08/20/2019 Appointment: Robson Mccormick WPtel: [address] [place] [address] US CANCELED 07/22/2019 Referral: Vikram Maguire WPtel: [address] [facility] [address] [id number] [place] Referral Appointment Requested Instructions No Instructions Medical Equipment No Medical Equipment data Health Concerns Section Health Concerns data not found Goals Section Goals data not found Interventions Section Interventions data not found Health Status Evaluations/Outcomes Section Health Status Evaluations/Outcomes data not found Advance Directives No Advance Directive data
--- NOTE | 2021-02-18 14:13 | Physical Therapy Evaluation ---
PT Evaluation-General Medical Diagnosis Admission Date Feb 18, 2021 at 13:25 Medical Diagnosis: R patellar fx s/p repair Onset Date: Feb 16, 2021 Therapy Diagnosis Therapy Diagnosis: Gait deficit, strength deficit Precautions Precautions/Isolations: Fall Prevention Weight Bear Status Right Lower Extremity: Right Non Weight Bearing Referral Physician: Dr. Jones Reason for Referral: Evaluation/Treatment Medical History Pertinent Medical History: CAD Social History Home: Single Level Current Living Status: Alone Entry Into Home: Stairs With Railing PT Steps Into Home: 2 Prior Prior Level of Function SCALE: Activities may be completed with or without assistive devices. 8-Umgosfpyrx-tobrlhv completes the activity by him/herself with no assistance from a helper. 5-Set-up or Clean-up Assistance-helper sets up or cleans up; patient completes activity. [place] assists only prior to or following the activity. 4-Supervision or Touching Assistance-helper provides verbal cues and/or touching/steadying and/or contact guard assistance as patient completes activity. Assistance may be provided throughout the activity or intermittently. 3-Partial/Moderate Assistance-helper does LESS THAN HALF the effort. [place] lifts, holds or supports trunk or limbs, but provides less than half the effort. 2-Substantial/Maximal Assistance-helper does MORE THAN HALF the effort. [place] lifts or holds trunk or limbs and provides more than half the effort. 9-Zhnmqhglv-bxlgkm does ALL the effort. Patient does none of the effort to complete the activity. Or, the assistance of 2 or more helpers is required for the patient to complete the activity. If activity was not attempted, code reason: 7-Patient Refused. 9-Not Applicable-not attempted and the patient did not perform the activity before the current illness, exacerbation or injury. 10-Not Attempted due to Environmental Limitations-(lack of equipment, weather restraints, etc.). 88-Not Attempted due to Medical Conditions or Safety Concerns. Bed Mobility: 6 Transfers (B,C,W/C): 6 Gait: 6 Stairs: 6 Indoor Mobility (Ambulation): Independent Stairs: Independent Prior Devices Use: None PT Evaluation-Current Subjective Patient lying supine in bed upon PT arrival, agreeable to treatment. Rates pain at 6-7/10 currently in the right knee. Reports she had Tylenol at 5:30 am and cannot remember if she has had any other pain medicine since then. Objective Patient Orientation: Person, Place, Time, Situation Attachments: Knee Immobilizer ROM/Strength ROM Lower Extremities Right knee in immobilizer, ROM not assessed officially. ROM left LE and right Hip/ankle all appear WFLs via visual observation. Strength Lower Extremities Right LE N/A due to recent surgery, however patient unable to lift right LE off the bed in supine without UEs and unable to lift right LE into the simulated car without assistance from PT and use of UEs. Left LE 4/5 throughout all planes. Sensory Vision: Functional Hearing: Functional Sensation Right Lower Extremit: Intact Sensation Left Lower Extremity: Intact Transfers Roll Left & Right (QC): 4 Sit to Lying (QC): 4 Lying to Sitting/Side of Bed(Q: 4 Sit to Stand (QC): 3 Chair/Jhh-wp-Ytqec Xfer(QC): 3 Toilet Transfer (QC): 3 Car Transfer (QC): 3 Gait Does the Patient Walk?: Yes Mode of Locomotion: Walk Anticipated Mode of Locomotion: Walk Walk 10 feet (QC): 3 Walk 50 ft with 2 Turns(QC): 88 Walk 150 ft (QC): 88 Walking 10ft/uneven surface-QC: 88 Distance: 10 feet Gait Assistive Device: FWW Wheelchair Training Does the Pt Use a Wheelchair?: Yes Distance: 30 Wheel 50 ft with 2 turns (QC): 88 Wheel 150 ft (QC): 88 Type of Wheelchair: Manual Stairs #of Steps: 0 1 Step (curb) (QC): 88 4 Steps (QC): 88 12 Steps (QC): 88 Balance Sitting Static: Good Sitting Dynamic: Good Standing Static: Fair Standing Dynamic: Fair Picking up an Object (QC): 3 Assessment/Needs Patient tolerated evaluation fair. Requires frequent rest breaks and reports significant increase in pain with most movements of the right LE. Patient performs all bed mobility with SBA, sit to stand and all transfers with mod A. Patient ambulates 10 feet with FWW, with min A and verbal cues for safety, progression, balance, NWB right LE and posture. Patient is able to maintain NWB right LE ~ 50% of the time. As she fatigues, she demonstrates increased difficulty maintaining NWB. Patient is able to perform car transfer with mod A, however requires extra time to scoot her gluts back in the seat to allow for increased room for the right LE to be moved into the car as she is unable to bend it. Patient Performs Ankle pumps and glut sets while lying supine in bed. Patient transferred to second PT to finish treatment. Patient in bed post treatment, with all needs met, nursing notified, call light in reach and PT in the room. Rehab Potential: Fair PT Short Term Goals Short Term Goals Time Frame: Mar 03, 2021 Roll Left & Right: 5 Sit to lyin Lying to sitting on side of be: 5 Sit to stand: 5 Chair/dbn-fg-mxhzi transfer: 5 Toilet transfer: 5 Car transfer: 5 Walk 10 feet: 5 Walk 50 feet with two turns: 5 Walk 150 feet: 4 Does pt use a wc or scooter: No Wheel 50ft w/2 turns: 6 Wheel 150 feet: 5 Type: Manual PT Long-Term Goals Long-Term Goals PT Long-Term Goals Time Frame: Mar 23, 2021 Roll Left & Right (QC): 6 Sit to Lying (QC): 6 Lying-Sitting on Side/Bed(QC): 6 Sit to Stand (QC): 6 Chair/Wiw-nd-Nqcxr Xfer(QC): 6 Toilet Transfer (QC): 6 Car Transfer (QC): 6 Does the Patient Walk: Yes Walk 10 feet (QC): 6 Walk 50ft with 2 Turns (QC): 6 Walk 150 ft (QC): 5 Walking 10ft on Uneven Surface: 4 1 Step (curb) (QC): 4 4 Steps (QC): 4 12 Steps (QC): 4 Picking up an Object (QC): 6 Does the Pt use WC or Scooter?: Yes Wheel 50 feet with 2 turns (QC: 6 Wheel 150 feet: 6 Type: Manual PT Plan Problem List Problem List: Activity Tolerance, Functional Strength, Safety, Balance, Gait, Transfer, Bed Mobility, ROM Treatment/Plan Treatment Plan: Continue Plan of Care Treatment Plan: Bed Mobility, Education, Functional Activity Kerry, Functional Strength, Group Therapy, Gait, Safety, Therapeutic Exercise, Transfers Treatment Duration: Apr 21, 2021 Frequency: At least 5 of 7 days/Wk (IRF) Estimated Hrs Per Day: 1.5 hours per day Patient and/or Family Agrees t: Yes Safety Risks/Education Patient Education: Gait Training, Transfer Techniques, Reviewed Precautions Teaching Recipient: Patient Teaching Methods: Demonstration, Discussion Response to Teaching: Verbalize Understanding, Return Demonstration Time/GCodes Time In: 1310 Time Out: 1320 Total Billed Treatment Time: 10 Total Billed Treatment Visit, EDWIN Phillips PT Feb 18, 2021 14:13
--- NOTE | 2021-02-18 14:54 | Occupational Therapy Eval ---
OT Evaluation-General/PLF Medical Diagnosis Admission Date Feb 18, 2021 at 13:25 Medical Diagnosis: R patellar fx s/p repair Onset Date: Feb 16, 2021 Therapy Diagnosis Therapy Diagnosis: Impaired adls, balance, safety, activity tolerance Precautions Precautions/Isolations: Fall Prevention, Standard Precautions, Pressure Ulcer Weight Bear Status Weight Bearing Restriction: Non Weight Bearing Location Restriction: R LE Referral Physician: Dr. Jones Referral Reason: Evaluation/Treatment Medical History Pertinent Medical History: CAD Current History Pt presents to hospital following trauma to R knee secondary to losing balance while turning around in her kitchen. She hit her knee on a wooden drawer. She is now POD2 for a patella tendon repair. NWB RLE. She is currently in a knee immobilizer. Pt reports that she was living alone in a single story home. She was indep with all adls and iadls, except having a continuity reader 1x/week. She owns a cane and fww but was not using prior. She reports that she is planning to hire assistance post d/c. Reviewed History: Yes Social History Home: Single Level Current Living Status: Alone Entry Into Home: Stairs With Railing Steps Into Home: 2 ADL-Prior Level of Function SCALE: Activities may be completed with or without assistive devices. 4-Zhwmkenfal-nudojzr completes the activity by him/herself with no assistance from a helper. 5-Set-up or Clean-up Assistance-helper sets up or cleans up; patient completes activity. [place] assists only prior to or following the activity. 4-Supervision or Touching Assistance-helper provides verbal cues and/or touching/steadying and/or contact guard assistance as patient completes activity. Assistance may be provided throughout the activity or intermittently. 3-Partial/Moderate Assistance-helper does LESS THAN HALF the effort. [place] lifts, holds or supports trunk or limbs, but provides less than half the effort. 2-Substantial/Maximal Assistance-helper does MORE THAN HALF the effort. [place] lifts or holds trunk or limbs and provides more than half the effort. 0-Gocsyeqak-zejgqw does ALL the effort. Patient does none of the effort to complete the activity. Or, the assistance of 2 or more helpers is required for the patient to complete the activity. If activity was not attempted, code reason: 7-Patient Refused. 9-Not Applicable-not attempted and the patient did not perform the activity before the current illness, exacerbation or injury. 10-Not Attempted due to Environmental Limitations-(lack of equipment, weather restraints, etc.). 88-Not Attempted due to Medical Conditions or Safety Concerns. Self Care: Independent Functional Cognition: Independent DME/Equipment: Bath Chair, Shower, Tall Toilet Drive Self: Yes OT Current Status Subjective At start of session, pt reports pain as 7/10 in R knee. With activity, pain increases to 10/10. RN notified. Pain Improves with rest. Appearance Pt left supine in bed, all needs within reach. Mental Status/Objective Patient Orientation: Person, Place, Situation Current Hand Dominance: Right Upper Extremity ROM WNL Upper Extremity Strength 3+/5 grossly ADL-Treatment Eating (QC): 5 (Per clinical judgement) Oral Hygiene (QC): 3 (balance assist) Shower/Bathe Self (QC): 3 Upper Body Dressing (QC): 4 Lower Body Dressing (QC): 3 On/Off Footwear (QC): 3 Toileting Hygiene (QC): 3 Co-treat with PT secondary to poor activity tolerance, endurance, pain tolerance, balance, and safety. Supine<>sit: initially pt able to perform with SBA, yet as fatigue worsens, Min a needed to lift/transition RLE. Pt reports difficult to move due to increased weight from immobolizer. Sponge bath performed sitting EOB. Trash can with pillow placed under RLE for comfort and to keep from dangling. Pt able to wash upper body, thighs, and down to L foot without assist. RLE not addressed secondary to immobolizer donned. Assist needed only to wash R foot. Pt stood with Min A, able to remove single UE support to wash andrew area and buttocks. Mod cues for adherence to NWB with prolonged standing. Clothing donned seated EOB. Extra time/effort and min a required to thread RLE secondary to immobolizer and limited knee mobility. She stood again with Min a, and managed clothing up to waist with L hand only. Pt fearful to remove R hand from walker. Min a needed to tack puller machine R hip. She was able to hop ~8 feet with cues to maintain NWB as pt has tendency to put weight on toes. Pt requires several lenghty rest breaks secondary to pain and fatigue. Education OT Patient Education: Correct positioning, Energy conservation, Modified ADL techniques, Progress toward Goal/Update tx plan, Purpose of tx/functional activities, Reviewed precautions, Rehab process, Safety issues, Transfer techniques, W/C management Teaching Recipient: Patient Teaching Methods: Demonstration, Discussion Response to Teaching: Verbalize Understanding, Return Demonstration, Reinforcement Needed OT Short Term Goals Short Term Goals Time Frame: Feb 26, 2021 Eatin Oral hygiene: 4 Toileting hygiene: 4 Shower/bathe self: 4 Upper body dressin Lower body dressin Putting on/taking off footwear: 4 OT [facility] Goals Blood Donor Recruiter Supervisor Goals Time Frame: Mar 12, 2021 Eating (QC): 6 Oral Hygiene (QC): 6 Toileting Hygiene (QC): 6 Shower/Bathe Self (QC): 5 Upper Body Dressing (QC): 6 Lower Body Dressing (QC): 5 On/Off Footwear (QC): 6 1=Demonstrate adherence to instructed precautions during ADL tasks. 2=Patient will verbalize/demonstrate understanding of assistive devices/modifications for ADL. 3=Patient will improve strength/tolerance for activity to enable patient to perform ADL's. OT Education/Plan Problem List/Assessment Assessment: Decreased Activ Tolerance, Decreased Safety Aware, Decreased UE Strength, Impaired Funct Balance, Impaired I ADL's, Impaired Self-Care Skills Discharge Recommendations Plan/Recommendations: Continue POC Equpiment Recommendations-D/C: Rails on Tub/Shower Comment continue to assess Target Placement home health Treatment Plan/Plan of Care Treatment,Training & Education: Yes Patient would benefit from OT for education, treatment and training to promote independence in ADL's, mobility, safety and/or upper extremity function for ADL's. Plan of Care: ADL Retraining, Functional Mobility, Group Exercise/Act as Ind, UE Funct Exercise/Act Treatment Duration: Mar 12, 2021 Frequency: At least 5 of 7 days/Wk (IRF) Estimated Hrs Per Day: 1.5 hours per day Agreement: Yes Rehab Potential: Fair Time/GCodes Start Time: 13:20 Stop Time: 14:50 Total Time Billed (hr/min): 90 Billed Treatment Time 1 visit EVM (10 min) ADL x3 (45 min) FA x2 (35 min) PT eval ([id number]), OT eval ([id number]), Co-treat ([id number]) Sis Bragg OT Feb 18, 2021 14:54
--- NOTE | 2021-02-18 14:59 | Physical Therapy Daily Note ---
PT Daily Note-Current Subjective Patient agrees to continued therapy. Mental Status Patient Orientation: Normal For Age Transfers SCALE: Activities may be completed with or without assistive devices. 5-Sgaqhgjeed-zyoiugk completes the activity by him/herself with no assistance from a helper. 5-Set-up or Clean-up Assistance-helper sets up or cleans up; patient completes activity. [place] assists only prior to or following the activity. 4-Supervision or Touching Assistance-helper provides verbal cues and/or touching/steadying and/or contact guard assistance as patient completes activity. Assistance may be provided throughout the activity or intermittently. 3-Partial/Moderate Assistance-helper does LESS THAN HALF the effort. [place] lifts, holds or supports trunk or limbs, but provides less than half the effort. 2-Substantial/Maximal Assistance-helper does MORE THAN HALF the effort. [place] lifts or holds trunk or limbs and provides more than half the effort. 1-Upjobgaqk-hgnzvq does ALL the effort. Patient does none of the effort to complete the activity. Or, the assistance of 2 or more helpers is required for the patient to complete the activity. If activity was not attempted, code reason: 7-Patient Refused. 9-Not Applicable-not attempted and the patient did not perform the activity before the current illness, exacerbation or injury. 10-Not Attempted due to Environmental Limitations-(lack of equipment, weather restraints, etc.). 88-Not Attempted due to Medical Conditions or Safety Concerns. Sit to Lying (QC): 3 Lying to Sitting/Side of Bed(Q: 3 Sit to Stand (QC): 3 Chair/Kns-ha-Rnjco Xfer(QC): 3 PT assist right LE with bed mobility and addressed standing balance with OT address lower body ADL's Weight Bearing Right Lower Extremity: Right Non Weight Bearing Gait Training Distance: 10' x 2 Walk 10 feet (QC): 3 Gait Assistive Device: FWW fatigued requiring VC's for NWB right LE Treatments OT/PT co-treat([id number]), 2 clinicians required for skilled instruction to decrease fall risk, increase pain tolerance, increase transfers and functional mobility. PT focusing on transfers, standing balance and gait while OT focusing on ADLs and functional mobility. Assessment Patient very fatigued and is in bed with needs met. PT to increase activity as tolerated by patient. PT Short Term Goals Short Term Goals Time Frame: Mar 03, 2021 Roll Left & Right: 5 Sit to lyin Lying to sitting on side of be: 5 Sit to stand: 5 Chair/xho-um-eyves transfer: 5 Toilet transfer: 5 Car transfer: 5 Walk 10 feet: 5 Walk 50 feet with two turns: 5 Walk 150 feet: 4 Does pt use a wc or scooter: No Wheel 50ft w/2 turns: 6 Wheel 150 feet: 5 Type: Manual PT Park Maintainer Goals Park Maintainer Goals PT Park Maintainer Goals Time Frame: Mar 23, 2021 Roll Left & Right (QC): 6 Sit to Lying (QC): 6 Lying-Sitting on Side/Bed(QC): 6 Sit to Stand (QC): 6 Chair/Aoi-ur-Umnpa Xfer(QC): 6 Toilet Transfer (QC): 6 Car Transfer (QC): 6 Does the Patient Walk: Yes Walk 10 feet (QC): 6 Walk 50ft with 2 Turns (QC): 6 Walk 150 ft (QC): 5 Walking 10ft on Uneven Surface: 4 1 Step (curb) (QC): 4 4 Steps (QC): 4 12 Steps (QC): 4 Picking up an Object (QC): 6 Does the Pt use WC or Scooter?: Yes Wheel 50 feet with 2 turns (QC: 6 Wheel 150 feet: 6 Type: Manual PT Plan Treatment/Plan Treatment Plan: Continue Plan of Care Treatment Plan: Bed Mobility, Education, Functional Activity Kerry, Functional Strength, Group Therapy, Gait, Safety, Therapeutic Exercise, Transfers Treatment Duration: Apr 21, 2021 Frequency: At least 5 of 7 days/Wk (IRF) Estimated Hrs Per Day: 1.5 hours per day Patient and/or Family Agrees t: Yes Time/GCodes Time In: 1330 Time Out: 1450 Total Billed Treatment Time: 80 Total Billed Treatment 1 visit FA x 5 80 min (cotreat with OT) RADHA BELL PT Feb 18, 2021 14:59
[2021-02-18 15:00] VITALS: BP 125/64
--- NOTE | 2021-02-18 15:33 | ST Cognitive Linguistic Eval ---
Speech Evaluation-General Medical Diagnosis R patellar fx s/p repair Onset Date: Feb 16, 2021 Therapy Diagnosis Therapy Diagnosis: Cognitive-communication Referral Referring Physician: Dr. Jones Medical History Pertinent Medical History: CAD Reviewed History: Yes Social History Current Living Status: Alone Speech PLF-Current Status Prior Level of Function Patient lives home alone where she is independent for her daily needs. Subjective Patient was pleasant and cooperative with the cognitive assessment. Language Eval: Auditory Comprehends Simple Yes/No Ques: Functional Indent/Objects Multiple [place]: Functional Ident/Pics in Multiple [place]: Functional Follows 1-Step Commands: Functional Follows Complex Directions: Functional Follows General Conversations: Functional Language Eval: Verbal Language Completes Spontaneous Greeting: Functional Produces Auto, Serial Info: Functional Imitates Simple Words/Phrases: Functional Word Finding: Functional Requests Basic Needs: Functional States Basic Personal Info: Functional Expresses Complex Ideas: Functional Cognitive Patient Orientation Patient is oriented to all concepts. Objective Cognitive Domain Attention: WNL Memory: WNL Problem Solving: Functional Executive Functions: WNL Visuospatial Skills: WNL Composite Severity Rating: WNL Clock Drawing Severity Rating: WNL Objective Formal/Standardized Tests [facility] Mental Status ([facility]) Results 28/30, within normal range of function Oral Motor/Speech Production Within Normal Limits Impression Patient is a pleasant 80 y/o female who was admitted to the ARU s/p fall with knee injury which required surgery. The patient was given the SLUMS at bedside with a score of 28/30 obtained. This score is within normal range of function and does not indicate the need for further ST services. Speech Patient Assess Expression of Ideas/Wants: Expression (4) Understanding Verbal Content: Understands (4) Brief Interview-Mental Status: Yes Repetition of Three Words: Three (3) Temporal Orientation: Year: Correct (3) Temporal Orientation: Month: Accurate within 5 days(2) Temporal Orientation: Day: Correct (1) Recall : Wear to say "Sock": Yes, no cue required (2) Recall : Color: Yes, no cue required (2) Recall : Bed: Yes,after cueing (1) Memory/Recall Ability: Current season, That he or she is in a hsp/hsp unit Speech-Plan Patient/Family Goals Patient/Family Goals: Patient plans on returning to her home where she lives alone. She does have assistance with her household duties. Treatment Plan Speech Therapy Treatment Plan: Discontinue ST Treatment Duration: Feb 18, 2021 Frequency: 1 time per week Estimated Hrs Per Day: .5 hour per day Rehab Potential: Fair Barriers to Learning: Patient's age and fall with injury Pt/Family Agrees to Plan: Yes Safety Risks/Education Teaching Recipient: Patient Teaching Methods: Discussion Response to Teaching: Verbalize Understanding Education Topics Provided: Safety within her room, communication of wants/needs Time Speech Therapy Time In: 15:00 Speech Therapy Time Out: 15:30 Total Billed Time: 30 Billed Treatment Time 1, TYLER OGLESBY [address] ST Feb 18, 2021 15:33
[2021-02-18 20:00] VITALS: BP 151/70
[2021-02-18] MEDS ORDERED: ONDANSETRON 4 MG/2 ML (SDV) Z0FRAN IVP PRN (20:45)
[2021-02-18] MEDS ORDERED: CATHETER FLUSH 10 ML SYR IV PRN (20:45)
[2021-02-18] MEDS ORDERED: RT-ALBUTEROL SULF 2.5 MG/3 ML PRE-MIX VIAL INH PRN (20:45)
[2021-02-18] MEDS ORDERED: fentaNYL INJ 100 MCG/2 ML AMP IVP PRN (20:45)
--- NOTE | 2021-02-18 20:45 | PM&R Post Admission Assessment ---
PM&R HP Date of Visit: Feb 18, 2021 Time of Visit: 14:00 History of Present Illness Chief complaint: Debility following right patellar fracture repair History of present illness: This is an 80-year-old white female who sustained a patellar fracture while at home when she pivoted her right leg and had an u ncomplicated repair but she has required transfusions due to acute blood loss anemia. She has a recent history of upper GI bleed in November requiring 2 units of blood. At this current time she wants her catheter out and her bowels have not moved since admission. She wants to minimize pain medication. Her BMI is 16 but albumin remained stable. She has a history of a recent stent placement in September. Previously independent. H&P from [facility]: R patellar fx s/p repair 02/16/21 HPI: Erica is an 80yo female presenting to [facility] for PT/OT rehab s/p R patellar fx repair. She states that on Monday, she was in her kitchen preparing a meal when she pivoted and inadvertently hit her R knee on a partially open cabinet door. Denies falling or losing consciousness. She subsequently experienced severe pain and called an acquaintance for assistance, after which she was taken by EMS to the ED. She had the repair done by Dr. Hendricks on Friday 02/16; her Hgb post-op was 6.3 so she was transfused 4U PRBC. She has history of significant CAD with severe LAD stenosis with stent placement in September, severe RCA stenosis with no intervention. She had an UGIB in November r/t PUD and antiplatelet medication that required 2U PRBC transfusion. Currently, she has complaint of 7/10 pain to her RLE knee/lower leg, she has been taking 1000mg Tylenol with minimal relief but does not feel like she needs more medication, improves with rest. Per Ortho, she is NWB to her RLE and limit knee flexion. Casanova in place draining clear yellow, no dysuria. Last bm on Monday, 4 days ago prior to the incident. No complaints of chest pain, SOB, N/V, abd pain, fevers/chills. ROS: Denies headache, chest pain, SOB, N/V, fevers/chills, numbness, tingling, dysuria PMHx: CAD w/ 1x stent in September 2020, CHF EF 40%, PVD, HTN, Anemia, Hematuria, Pulmonary nodule PSHx: R patellar fx repair 02/16/21, appendectomy, hysterectomy, coronary stent x1 FHx: Reports significant cardiac disease history in siblings and parents Medications: Active Scripts Active Pantoprazole Sodium 40 Mg Tablet. 40 Mg PO BID Paroxetine HCl 10 Mg Tablet 10 Mg PO DAILY Tramadol HCl 50 Mg Tablet 50 Mg PO Q6H PRN Reported Clopidogrel (Clopidogrel Bisulfate) 75 Mg Tablet 75 Mg PO 1200 Aspirin EC (Aspirin) 81 Mg Tablet. 81 Mg PO DAILY Allergies Coded Allergies Penicillins (Verified Allergy, Mild, Skin rash Several years ago, 02/16/21) hydrocodone (Verified Allergy, Mild, The patient states that the hydrocodone made her feel "goofy, 02/16/21) SocialHx: denies history of tobacco use, drinks a couple glasses of wine weekly, denies recreational drug use. about 5 years ago and she appears to be affected significantly. Daughter lives in [place]. Has family in [place]. PE: VS: Pending Labs: Pending General: awake, alert, pleasant. NAD. gaunt/cachectic appearance. Neuro: A&Ox3. HEENT: PERRLA, EOMI. moist mucosa, no lymphadenopathy CV: RRR, systolic murmur, pulses +2/4 x4 extremities, no JVD Pulm: Lungs CTAB, no accessory muscle use Abd: BS active x4, mild distention/tenderness lower abd/pelvis : casanova in place draining clear yellow MSK: R knee anterior midline incision secured with april, dressing with moderate serosanguinous drainage, moderate soft tissue swelling mid-thigh to ankle. R ankle sensation intact, +4/5 strength, R knee immobilized in brace. All other extremities full ROM, strength +4/5. Skin: warm, dry, thin/frail skin, no rash/lesions Psych: trouble with coping from loss of 5 years ago A/P: POD#2 s/p R patellar fracture repair 02/16 RLE immobilized in brace, currently NWB per Dr. Hendricks PT/OT assessment and rehab Dressing changes QOD Pain managed with Tylenol, Tramadol Last BM 4 days ago, Anemia History of multiple transfusions, received 4U PRBC 02/16 Hgb on 02/17 9.5 after transfusion Iron/B12 labs ordered CAD w/ 1x stent Followed by Cardiology Continue Aspirin/Plavix PUD Hx bleeding requiring transfusion Continue PPI Cachexia Dietary consult CHF PVD HTN ADRIANA GONZÁLES MED STUDENT Feb 18, 2021 13:41 Past Moydabx-Mvecab-Vmvltm Hx Past Med/Social Hx: Reviewed Nursing Past Med/Soc Hx, Reviewed and Corrections made Patient Social History Marrital Status: Employed/Student: retired Alcohol Beverage of Choice: Wine Smoking Status: Former Smoker Former Smoker, Quit: Apr 27, 2011 Type Used: Cigarettes 2nd Hand Smoke Exposure: No Recent Foreign Travel: No Contact w/other who traveled: No Recent Hopitalizations: No Immunizations Up To Date Tetanus Booster (TDap): Unknown Date of Pneumonia Vaccine: Dec 25, 2017 Seasonal Allergies Seasonal Allergies: No Past Medical History Surgeries: Appendectomy, Coronary Stent, Hysterectomy, Orthopedic, Tonsillectomy Currently Using CPAP: No Currently Using BIPAP: No Cardiac: Coronary Artery Disease, High Cholesterol, Hypertension Sexually Transmitted Disease: No HIV/AIDS: No Female Reproductive Disorders: Denies Hysterectomy Gastrointestinal: Gastrointestinal Bleed Musculoskeletal: Arthritis History of Blood Disorders: No Prior Level of Function Bed Mobility: 6 Transfers: 6 Gait: 6 Stairs: 6 Indoor Mobility (Ambulation): Independent Stairs: Independent Prior Devices Use: None Self Care: Independent Functional Cognition: Independent Drive Self: Yes Current Level of Fuctioning Roll Left to Right: 4 Sit to Lyin Lying to Sitting/Side of Bed: 3 Sit to Stand: 3 Chair/Xte-on-Idvok Xfer: 3 Car Transfer: 3 Does the Patient Walk: Yes Mode of Locomotion: Walk Anticipated Mode of Locomotion: Walk Walk 10 feet: 3 Walk 50 ft with 2 Turns: 88 Walk 150 ft: 88 Walking 10ft on uneven surface: 88 Gait Assistive Device: FWW Does the Pt Use a Wheelchair: Yes Wheelchair Distance: 30 Wheel 50 ft with 2 turns: 88 Wheel 150 ft: 88 Type of Wheelchair: Manual #of Steps: 0 1 Step (curb): 88 4 Steps: 88 12 Steps: 88 Picking up an Object: 3 Eatin (Per clinical judgement) Oral Hygiene: 3 (balance assist) Shower/Bathe Self: 3 Upper Body Dressin Lower Body Dressin On/Off Footwear: 3 Toileting Hygiene: 3 PM&R Allergy/Meds/Data Review Allergies Coded Allergies: Penicillins (Verified Allergy, Mild, Skin rash Several years ago, 02/16/21) hydrocodone (Verified Allergy, Mild, The patient states that the hydrocodone made her feel "goofy, 02/16/21) Home Medications Scheduled Aspirin (Aspirin EC), 81 MG PO DAILY, (Reported) Clopidogrel Bisulfate (Clopidogrel), 75 MG PO 1200, (Reported) Pantoprazole Sodium (Pantoprazole Sodium), 40 MG PO BID Paroxetine HCl (Paroxetine HCl), 10 MG PO DAILY Scheduled PRN Tramadol HCl (Tramadol HCl), 50 MG PO Q6H PRN for PAIN-MODERATE (5-7) Discontinued Medications Acetaminophen (Tylenol Extra Strength), 500 MG PO Q8H PRN for PAIN-MILD (1-4), (Reported) Discontinued Reason: No Longer Taking Aspirin (Aspirin EC), 162 MG PO HS PRN for RESTLESSNESS, (Reported) Atorvastatin Calcium (Atorvastatin Calcium), 40 MG PO 1200 W/MEAL, (Reported) Discontinued Reason: No Longer Taking Diclofenac Sodium (Arthritis Pain), 2 GM TP QID PRN for PAIN-MODERATE (5-7) Discontinued Reason: No Longer Taking Losartan Potassium (Losartan Potassium), 50 MG PO 1800 W/MEAL, (Reported) Discontinued Reason: No Longer Taking Pantoprazole Sodium (Pantoprazole Sodium), 40 MG PO DAILY Discontinued Reason: No Longer Taking Pantoprazole Sodium (Pantoprazole Sodium), 20 MG PO BID WITH MEALS, (Reported) Paroxetine HCl (Paroxetine HCl), 10 MG PO DAILY Discontinued Reason: No Longer Taking Permethrin (Permethrin), 60 GM TP ONCE Discontinued Reason: No Longer Taking Sucralfate (Sucralfate), 1 GM PO ACHS Discontinued Reason: No Longer Taking [Balance Of Nature], 1 EACH PO DAILY, (Reported) Current Medications Current Medications Reviewed Review of Systems Constitutional: see HPI, malaise, weakness EENTM: no symptoms reported Respiratory: no symptoms reported Cardiovascular: no symptoms reported Gastrointestinal: constipation Genitourinary: no symptoms reported Musculoskeletal: back pain, joint pain Skin: no symptoms reported Psychiatric/Neurological: Anxiety, Depressed All Other Systems Reviewed Negative Unless Noted: Yes Physical Exam Physical Exam Vital Signs Vital Signs - First Documented 02/18/21 15:00 Temp 36.4 Pulse 75 Resp 20 B/P (MAP) 125/64 (84) Pulse Ox 99 O2 Delivery Room Air Capillary Refill : Height, Weight, BMI Height: '" Weight: lbs. oz. kg; 16.18 BMI Method: General Appearance: No Apparent Distress, WD/WN, Chronically ill, Thin Eyes: Bilateral Eye Normal Inspection, Bilateral Eye PERRL HEENT: PERRL/EOMI, Normal ENT Inspection, Pharynx Normal Neck: Full Range of Motion, Normal Inspection, Non Tender, Supple, Carotid Bruit Respiratory: Chest Non Tender, Lungs Clear, Normal Breath Sounds, No Accessory Muscle Use, No Respiratory Distress Cardiovascular: Regular Rate, Rhythm, No Edema, No Gallop, No JVD, No Murmur, Normal Peripheral Pulses Gastrointestinal: Normal Bowel Sounds, No Organomegaly, No Pulsatile Mass, Non Tender, Soft Back: Normal Inspection, No CVA Tenderness, No Vertebral Tenderness Extremity: Normal Capillary Refill, Normal Inspection, Normal Range of Motion (Right leg in immobilizer), Non Tender, No Calf Tenderness, No Pedal Edema Neurologic/Psychiatric: Alert, Oriented x3, No Motor/Sensory Deficits, Normal Mood/Affect, hand binder cutter II-XII Norm as Tested, Abnormal Gait, Motor Weakness (Right leg) Skin: Normal Color, Warm/Dry Lymphatic: No Adenopathy PM&R Medical Assessment & Plan REHAB/MEDICAL ASSESSMENT AND PLAN: REHAB IMPAIRMENT GROUP: Right patellar fracture ETIOLOGIC DIAGNOSIS: Right patellar fracture The comorbidities that impact the patients function and/or functional outcome by: Acute blood loss anemia, Plavix requirement, recent stent placement, advanced age REHAB PLAN: The patient is being admitted to our comprehensive inpatient rehabilitation facility and can tolerate the intensity of service consisting of at least: 180 minutes of therapy a day, 5 out of 7 days a week Rehab treatment will consist of: PT and OT will focus on regaining function with ambulatory devices considering right leg immobilizer and will help increase ADL independence The patient/family has a good understanding of our discharge process and will benefit from an interdisciplinary inpatient rehabilitation program. The patient has potential to make improvement and is in need of at least two of the following multidisciplinary therapies including but not limited to physical, occupational, speech, and prosthetics and orthotics. Additionally the patient will need services from respiratory, nutritional services, wound care, psychology, etc. (Customize this to each patient). Given the patients complex condition and risk of further medical complications, rehabilitation services cannot be safely or effectively provided at a lower level of care such as a intermediate facility. BARRIERS TO DISCHARGE: Right leg immobilizer ESTIMATED LOS: 14 days DISPOSITION: Home RELEVANT CHANGES SINCE PREADMISSION SCREENING: I have compared the patients medical and functional status at the time of the preadmission screening and there are: No changes PROGNOSIS: Fair REHABILITATION GOALS: 1. PT and OT will focus on regaining function with ambulatory devices considering right leg immobilizer and will help increase ADL independence All the above goals were reviewed with the patient and he/she is in agreement. By signing this document, I acknowledge that I have personally performed a full physical examination on this patient within 24 hours of admission to this inpatient rehabilitation facility and have determined the patient to be able to tolerate the above course of treatment at an intensive level for a reasonable period of time. I will be completing a detailed individualized Plan of Care for this patient by day #4 of the patients stay based upon the Preadmission Screen, the Post-Admission Evaluation, and the therapy evaluations. Admission Dx/Comorbidities: (1) Right patella fracture Status: Acute ICD Codes: S82.001A - Unspecified fracture of right patella, initial encounter for closed fracture (2) CAD (coronary artery disease) ICD Codes: I25.10 - Atherosclerotic heart disease of [place] coronary artery without angina pectoris (3) Stented coronary artery ICD Codes: Z95.5 - Presence of coronary angioplasty implant and graft (4) History of GI bleed ICD Codes: Z87.19 - Personal history of other diseases of the digestive system (5) Transfusion of blood during current hospitalisation (6) Low BMI (7) Risk for falls ICD Codes: Z91.81 - History of falling (8) Depression ICD Codes: F32.9 - Major depressive disorder, single episode, unspecified (9) Constipation ICD Codes: K59.00 - Constipation, unspecified (10) Severe anemia Status: Acute ICD Codes: D64.9 - Anemia, unspecified Assessment/Plan Assessment and Plan Assess & Plan/Chief Complaint Assessment: Status post right patellar fracture now in immobilizer status post uncomplicated repair Acute blood loss anemia requiring transfusion Recent GI bleed requiring transfusion Iron deficiency on iron infusions CAD recent stent Depression Constipation Casanova cath in place Plan: Transfuse as necessary Supportive care Inpatient rehab protocol Regain independence Immobilizer CASIE COSTA DO Feb 18, 2021 20:45
[2021-02-18] MEDS: ALPRAZolam 0.25 MG (XANAX) TAB PO PRN (20:59)
[2021-02-18] MEDS ORDERED: SENNA W/DOCUSATE (SENOKOT S) TABLET PO SCH (21:00)
[2021-02-18] MEDS: DOCUSATE SODIUM 100 MG (COLACE) CAP PO SCH (21:16)
[2021-02-18] MEDS: polyethylene glycoL POWDER 17 GM (MIRALAX) PACK PO SCH (21:16)
[2021-02-18] MEDS: SENNA W/DOCUSATE (SENOKOT S) TABLET PO SCH (21:16)
[2021-02-18] MEDS ORDERED: PANTOPRAZOLE 40 MG (PROTONIX) TAB PO ONE (21:17)
[2021-02-18] MEDS: RT-ALBUTEROL/IPRATROPIUM 3 ML (DUONEB) VIAL INH SCH (21:28)
[2021-02-19 06:16] LABS: BASOPHILS % (AUTO) 0 % (0-10); EOSINOPHILS # (AUTO) 0.2 10^3/uL (0.0-0.3); EOSINOPHILS % (AUTO) 3 % (0-10); HEMATOCRIT 29 % (35-52); HEMOGLOBIN 9.3 g/dL (11.5-16.0); LYMPHOCYTES # (AUTO) 0.6 10^3/uL (1.0-4.0); LYMPHOCYTES % (AUTO) 7 % (12-44); MEAN CORPUSCULAR HEMOGLOBIN 27 pg (25-34); MEAN CORPUSCULAR HGB CONC 32 g/dL (32-36); MEAN CORPUSCULAR VOLUME 84 fL (80-99); MEAN PLATELET VOLUME 9.2 fL (9.0-12.2); MONOCYTES # (AUTO) 0.6 10^3/uL (0.0-1.0); MONOCYTES % (AUTO) 7 % (0-12); NEUTROPHILS # (AUTO) 6.6 10^3/uL (1.8-7.8); NEUTROPHILS % (AUTO) 82 % (42-75); PLATELET COUNT 180 10^3/uL (130-400)
[2021-02-19 06:23] LABS: POTASSIUM 3.3 MMOL/L (3.6-5.0)
[2021-02-19 06:24] LABS: CALCIUM 8.1 MG/DL (8.5-10.1)
[2021-02-19 06:25] LABS: TOTAL PROTEIN 5.2 GM/DL (6.4-8.2)
[2021-02-19 06:27] LABS: BILIRUBIN,TOTAL 0.9 MG/DL (0.1-1.0)
[2021-02-19 06:28] LABS: CREATININE SERUM 0.58 MG/DL (0.60-1.30)
[2021-02-19] MEDS: KCL 20 MEQ TAB (K-DUR) PO SCH (06:52)
[2021-02-19] MEDS: PANTOPRAZOLE 40 MG (PROTONIX) TAB PO SCH ×2 (06:52→16:53)
[2021-02-19] MEDS: RT-ALBUTEROL/IPRATROPIUM 3 ML (DUONEB) VIAL INH SCH (07:26)
[2021-02-19 07:56] VITALS: BP 130/60
[2021-02-19] MEDS: polyethylene glycoL POWDER 17 GM (MIRALAX) PACK PO SCH ×2 (09:00→20:54)
[2021-02-19] MEDS: SENNA W/DOCUSATE (SENOKOT S) TABLET PO SCH ×2 (09:00→20:53)
[2021-02-19] MEDS: DOCUSATE SODIUM 100 MG (COLACE) CAP PO SCH ×2 (09:00→20:54)
[2021-02-19] MEDS: ASPIRIN E.C. 81 MG (ECOTRIN) TAB PO SCH (09:01)
[2021-02-19] MEDS: CLOPIDOGREL 75 MG (PLAVIX) TABLET PO SCH (09:01)
[2021-02-19] MEDS: PARoxetine 10 MG (PAXIL) TAB PO SCH (09:03)
--- NOTE | 2021-02-19 09:04 | Occupational Ther Daily Note ---
OT Current Status-Daily Note Subjective Pt reports discomfort in R knee, but no significant pain at start of session. Agreeable to co-treat. OT/PT co-treat([id number]), 2 clinicians required for skilled instruction to decrease fall risk, increase pain tolerance, increase activity tolerance/endurance, and functional mobility. Appearance Pt returned to supine in bed, all needs within reach. Mental Status/Objective Patient Orientation: Person, Place, Time, Situation ADL-Treatment Therapy Code Descriptions/Definitions Functional [place] Measure: 0=Not Assessed/NA 4=Minimal Assistance 1=Total Assistance 5=Supervision or Setup 2=Maximal Assistance 6=Modified [place] 3=Moderate Assistance 7=Complete IndependenceSCALE: Activities may be completed with or without assistive devices. 0-Zrhmudplgz-qbxcxbi completes the activity by him/herself with no assistance from a helper. 5-Set-up or Clean-up Assistance-helper sets up or cleans up; patient completes activity. [place] assists only prior to or following the activity. 4-Supervision or Touching Assistance-helper provides verbal cues and/or touching/steadying and/or contact guard assistance as patient completes activity. Assistance may be provided throughout the activity or intermittently. 3-Partial/Moderate Assistance-helper does LESS THAN HALF the effort. [place] lifts, holds or supports trunk or limbs, but provides less than half the effort. 2-Substantial/Maximal Assistance-helper does MORE THAN HALF the effort. [place] lifts or holds trunk or limbs and provides more than half the effort. 5-Hywcvmmft-btttnz does ALL the effort. Patient does none of the effort to complete the activity. Or, the assistance of 2 or more helpers is required for the patient to complete the activity. If activity was not attempted, code reason: 7-Patient Refused. 9-Not Applicable-not attempted and the patient did not perform the activity before the current illness, exacerbation or injury. 10-Not Attempted due to Environmental Limitations-(lack of equipment, weather restraints, etc.). 88-Not Attempted due to Medical Conditions or Safety Concerns. Oral Hygiene (QC): 5 Upper Body Dressing (QC): 5 Toileting Hygiene (QC): 2 Toilet Transfer (QC): 3 Pt resting in bed at therapy arrival. Agreeable to treatment. With extra time, she was able to transfer to EOB without assist, requires use of UE's to lift/handle RLE/immobolizer. She sat EOB to don shirt, set up only. Sit<>stand: CGA. She hopped ~10-12 feet, mod cues for adherence to NWB as pt appears to be placing weight through toes. Grooming activities performed at w/c level with set up only. Toilet transfer: Min a with use of grab bars. Cues needed for completion of pivot prior to pulling clothing below hips. Kate care completed indep while in sitting. Max a needed this date to manage clothing up to waist secondary to fatigue following therapeutic activities. Again, sequencing cues required to pull clothing up prior to turning towards w/c. Other Treatment Pt participated in static standing activity with focus on promoting increased balance, LLE strength, sequencing, and activity tolerance/endurance. Initially, pt appears to be placing weight through toes. Thus OT tapped crackers to bottom of patients foot with education that force/weight would smash the crackers. Good follow through initially, yet as fatigue worsens, pt then switches weight to back of heel. In standing, pt requires min a for balance as she maintained single UE support on parallel bar. Post instruction of activity (checkers), pt required mod cues for recall of game rules, sequencing, and strategic game play. Longest standing time: 7:15. Several rest breaks needed throughout session due to poor endurance. Education OT Patient Education: Correct positioning, Energy conservation, Modified ADL techniques, Progress toward Goal/Update tx plan, Purpose of tx/functional activities, Reviewed precautions, Rehab process, Safety issues, Transfer techniques, W/C management Teaching Recipient: Patient Teaching Methods: Demonstration, Discussion Response to Teaching: Verbalize Understanding, Return Demonstration, Reinforcement Needed OT Short Term Goals Short Term Goals Time Frame: Feb 26, 2021 Eatin Oral hygiene: 4 Toileting hygiene: 4 Shower/bathe self: 4 Upper body dressin Lower body dressin Putting on/taking off footwear: 4 OT Diathermy Equipment Repairer Goals Fpc Goals Time Frame: Mar 12, 2021 Eating (QC): 6 Oral Hygiene (QC): 6 Toileting Hygiene (QC): 6 Shower/Bathe Self (QC): 5 Upper Body Dressing (QC): 6 Lower Body Dressing (QC): 5 On/Off Footwear (QC): 6 1=Demonstrate adherence to instructed precautions during ADL tasks. 2=Patient will verbalize/demonstrate understanding of assistive devices/modifications for ADL. 3=Patient will improve strength/tolerance for activity to enable patient to perform ADL's. OT Education/Plan Problem List/Assessment Assessment: Decreased Activ Tolerance, Decreased Safety Aware, Decreased UE Strength, Impaired Funct Balance, Impaired I ADL's, Impaired Self-Care Skills Discharge Recommendations Plan/Recommendations: Continue POC Treatment Plan/Plan of Care Treatment,Training & Education: Yes Patient would benefit from OT for education, treatment and training to promote independence in ADL's, mobility, safety and/or upper extremity function for ADL's. Plan of Care: ADL Retraining, Functional Mobility, Group Exercise/Act as Ind, UE Funct Exercise/Act Treatment Duration: Mar 12, 2021 Frequency: At least 5 of 7 days/Wk ([facility]) Estimated Hrs Per Day: 1.5 hours per day Agreement: Yes Rehab Potential: Fair Time/GCodes Start Time: 08:00 Stop Time: 09:00 Total Time Billed (hr/min): 60 Billed Treatment Time 1 visit ADL x2 FA x2 co-treat with PT for 60 min Sis Bragg OT Feb 19, 2021 09:04
--- NOTE | 2021-02-19 09:07 | Physical Therapy Daily Note ---
PT Daily Note-Current Subjective Pt in bed upon arrival and agrees to co-treat. Pt states discomfort in back of R knee. Use of 2 skilled clinicians due to pt low activity tolerance, weakness, poor mobility, safety, and decrease risk of falls. Pain Location: Right, Dorsal Location Body Site: Face Mental Status Patient Orientation: Person, Place Transfers SCALE: Activities may be completed with or without assistive devices. 0-Fxvpbmeubg-dezqeac completes the activity by him/herself with no assistance from a helper. 5-Set-up or Clean-up Assistance-helper sets up or cleans up; patient completes activity. [place] assists only prior to or following the activity. 4-Supervision or Touching Assistance-helper provides verbal cues and/or touching/steadying and/or contact guard assistance as patient completes activity. Assistance may be provided throughout the activity or intermittently. 3-Partial/Moderate Assistance-helper does LESS THAN HALF the effort. [place] l ifts, holds or supports trunk or limbs, but provides less than half the effort. 2-Substantial/Maximal Assistance-helper does MORE THAN HALF the effort. [place] lifts or holds trunk or limbs and provides more than half the effort. 6-Rdyfuogle-bvbkjx does ALL the effort. Patient does none of the effort to complete the activity. Or, the assistance of 2 or more helpers is required for t he patient to complete the activity. If activity was not attempted, code reason: 7-Patient Refused. 9-Not Applicable-not attempted and the patient did not perform the activity before the current illness, exacerbation or injury. 10-Not Attempted due to Environmental Limitations-(lack of equipment, weather restraints, etc.). 88-Not Attempted due to Medical Conditions or Safety Concerns. Roll Left & Right (QC): 5 Sit to Lying (QC): 5 Lying to Sitting/Side of Bed(Q: 5 Sit to Stand (QC): 4 Weight Bearing Right Lower Extremity: Right Non Weight Bearing Gait Training Does the Patient Walk?: Yes Distance: 10' Walk 10 feet (QC): 3 Gait Assistive Device: FWW Pt amb 10' in room w/ FWW and required VC to keep NWB precautions. Pt tends to put weight on R toes during amb. Pt has extremely slow, swing to gait pattern Wheelchair Training Does the Pt Use a Wheelchair?: Yes Wheel 50 ft with 2 turns (QC): 4 Wheel 150 ft (QC): 4 Type of Wheelchair: Manual VC given for placement and sequencing Treatments OT focused on dressing, ADLs, and functional mobility. PT focused on gait, mobility, and balance. Pt in bed and completes bed mobility to sit EOB. Pt able to complete SBA. Pt completes dressing (see OT note) then completes sit to stand CGA and amb 10' to sink in bathroom. Pt sits in WC and completes ADLs (see OT n ote). Pt then propels WC 100' to // bars in therapy gym. Pt completes static standing balance activity w/ WB on L LE and using L UE for support on // bars while using R UE in [employer] game. Pt requires CGA to complete standing, and requiring VC to keep NWB in R LE. When standing, pt seemed to WB in R heel when instructed not to. Pt then sits in WC and propels self back to room. Pt uses bathroom Ronal, and then transfers back to bed. Pt remains in bed with all needs met, call light in hand. Assessment Current Status: Fair Progress Pt requires Max VC to keep NWB precautions when standing/amb. Pt fatigues quickly and requires frequent rest breaks. PT Short Term Goals Short Term Goals Time Frame: Mar 03, 2021 Roll Left & Right: 5 Sit to lyin Lying to sitting on side of be: 5 Sit to stand: 5 Chair/fox-zw-jcjys transfer: 5 Toilet transfer: 5 Car transfer: 5 Walk 10 feet: 5 Walk 50 feet with two turns: 5 Walk 150 feet: 4 Does pt use a wc or scooter: No Wheel 50ft w/2 turns: 6 Wheel 150 feet: 5 Type: Manual PT Continuous Process Coffee Roaster Goals Continuous Process Coffee Roaster Goals PT Care Home Goals Time Frame: Mar 23, 2021 Roll Left & Right (QC): 6 Sit to Lying (QC): 6 Lying-Sitting on Side/Bed(QC): 6 Sit to Stand (QC): 6 Chair/Nfq-kc-Uaguw Xfer(QC): 6 Toilet Transfer (QC): 6 Car Transfer (QC): 6 Does the Patient Walk: Yes Walk 10 feet (QC): 6 Walk 50ft with 2 Turns (QC): 6 Walk 150 ft (QC): 5 Walking 10ft on Uneven Surface: 4 1 Step (curb) (QC): 4 4 Steps (QC): 4 12 Steps (QC): 4 Picking up an Object (QC): 6 Does the Pt use WC or Scooter?: Yes Wheel 50 feet with 2 turns (QC: 6 Wheel 150 feet: 6 Type: Manual PT Plan Treatment/Plan Treatment Plan: Continue Plan of Care Treatment Plan: Bed Mobility, Education, Functional Activity Kerry, Functional Strength, Group Therapy, Gait, Safety, Therapeutic Exercise, Transfers Treatment Duration: Apr 21, 2021 Frequency: At least 5 of 7 days/Wk (IRF) Estimated Hrs Per Day: 1.5 hours per day Patient and/or Family Agrees t: Yes Time/GCodes Time In: 800 Time Out: 900 Total Billed Treatment Time: 60 Total Billed Treatment 1, [facility] x2, FA, [place] JOSE G ONEILL PTA Feb 19, 2021 09:07
--- NOTE | 2021-02-19 11:06 | Individualized Plan of Care ---
Individualized Plan of Care Rehab Nursing IPOC Order Admission Date Feb 18, 2021 at 13:25 Current Orders Orders Admission Order(Inpt,Obs,Sdc) (02/18/21 10:13) Vital Signs: Per Unit Policy ( 08,16,00 (02/18/21 10:13) Walt Pierre (02/18/21 10:13) Sequential Compression Device .admit (02/18/21 10:13) Furniture Sander-Inpt Rehab Con (02/18/21 10:13) Rehab Nursing Orders-Ipoc (02/18/21 10:13) Physical Therapy Rehab Orders (02/18/21 10:13) Occupational Therapy Rehab Ord (02/18/21 10:13) Speech Therapy Rehab Orders (02/18/21 10:13) Cbc With Automated Diff (02/19/21 06:00) Comprehensive Metabolic Panel (02/19/21 06:00) Precautions (Aru) (02/18/21 10:13) Rehab-Intensity Of Therapy (02/18/21 10:13) Initiate Admission Nursing Pro .admission (02/18/21 10:13) Alprazolam Tablet (Xanax Tablet) (02/18/21 10:15) Calcium Carbonate Chew Tablet (Antacid C (02/18/21 10:15) Diphenhydramine Tablet (Benadryl Tablet) (02/18/21 10:15) Docusate Sodium Capsule (Colace Capsule) (02/18/21 21:00) Docusate Sodium Capsule (Colace Capsule) (02/18/21 10:15) Bisacodyl Suppository (Dulcolax Supposit (02/18/21 10:15) Lactulose Oral Solution (Enulose Oral So (02/18/21 10:15) Na Phos/Na Biphos Enema (Fleet Enema Richard (02/18/21 10:15) Guaifenesin/Codeine Syrup (Robitussin Ac (02/18/21 10:15) Loperamide Tablet (Imodium Tablet) (02/18/21 10:15) Melatonin Tablet (Melatonin Tablet) (02/18/21 10:15) Polyethylene Glycol Powder Pkt (Miralax (02/18/21 21:00) Ondansetron Oral Dissolve Tab (Zofran (02/18/21 10:15) Senna S Tablet (Senokot S Tablet) (02/18/21 21:00) Acetaminophen Tablet (Tylenol Tablet) (02/18/21 10:15) Admission Arrival Bed Request (02/18/21 13:31) Admission Arrival Bed Request (02/18/21 13:33) Patient Visit (02/18/21 ) Pt Eval Moderate Complexity (02/18/21 ) Patient Visit (02/18/21 ) Functional Activities, Ea 15 (02/18/21 ) General/Regular (02/18/21 Dinner) Patient Visit (02/18/21 ) Speech Sound Lang Comp (02/18/21 ) Treat. Speech/Lang/Voice (02/18/21 ) Code/Resuscitation (02/18/21 20:43) Incentive Spirometry (Nursing) Q2H (02/18/21 20:43) General/Regular (02/19/21 Breakfast) Acetaminophen Tablet (Tylenol Tablet) (02/18/21 20:45) Albuterol Pre-Mix Nebs (Rt) (Proventil (02/18/21 20:45) Albuterol/Ipra Inhalation Soln (Duoneb I (02/18/21 21:00) Aspirin Enteric Coated Tablet (Ecotrin T (02/19/21 09:00) Clopidogrel Tablet (Plavix Tablet) (02/19/21 09:00) Iron Sucrose Injection (Venofer Injectio (02/20/21 09:00) Paroxetine Tablet (Paxil Tablet) (02/19/21 09:00) Senna S Tablet (Senokot S Tablet) (02/18/21 21:00) Sodium Chloride Flush (Catheter Flush Sy (02/18/21 20:45) Ondansetron Injection (Zofran Injectio (02/18/21 20:45) Fentanyl Inj (Sublimaze Injection) (02/18/21 20:45) Tramadol Tablet (Ultram Tablet) (02/18/21 20:45) Consult Cardiology (02/18/21 20:43) Consult Orthopedic Surgery (02/18/21 20:43) Mat Initiate Protocol (02/18/21 20:43) Oxygen Delivery Set Up (02/18/21 20:43) Svn Small Volume Nebulizer (02/18/21 20:43) Svn Small Volume Nebulizer (02/18/21 20:43) Svn Small Volume Nebulizer (02/18/21 20:43) Pantoprazole Tablet (Protonix Tablet) (02/19/21 07:00) Tramadol Tablet (Ultram Tablet) (02/18/21 20:58) Pantoprazole Tablet (Protonix Tablet) (02/18/21 21:17) Potassium Chloride (Tablet) (K Dur Table (02/19/21 07:00) Bisacodyl Suppository (Dulcolax Supposit (02/19/21 11:30) Albuterol/Ipra Inhalation Soln (Duoneb I (02/19/21 14:45) Patient Visit (02/19/21 ) Wheelchair Mgmt/Propulsn 15min (02/19/21 ) Functional Activities, Ea 15 (02/19/21 ) Ex Neuromuscular, Ea 15 Min (02/19/21 ) Gait Training, Ea 15 Min (02/19/21 ) Rehab Nursing Orders: Ongoing Assess. of Function Status, Bladder Management, Bladder Scan, Bladder Training, Bowel Management, Bowel Training, Disease Management & Educaiton, DVT Prophylaxis, Fall Prevention, Fluid/Electrolyte/Nutrition Mgmt, Infection Prevention, Medication Management & Education, Management of Risks & Complications, Management of Skin Intergrity, Nutrition Management, Pain Management, Patient/Family Support, Safety Management, Wound Management Intensity of Therapy to be met Patient to be seen: Min.3h per day/5 of 7d PT IPOC Problem List: Activity Tolerance, Functional Strength, Safety, Balance, Gait, Transfer, Bed Mobility, ROM Treatment Plan: Continue Plan of Care Bed Mobility, Education, Functional Activity Kerry, Functional Strength, Group Therapy, Gait, Safety, Therapeutic Exercise, Transfers Treatment Duration: Apr 21, 2021 Frequency: At least 5 of 7 days/Wk (IRF) Estimated Hrs Per Day: 1.5 hours per day OT IPOC Problems: Decreased Activ Tolerance, Decreased Safety Aware, Decreased UE Stren gth, Impaired Funct Balance, Impaired I ADL's, Impaired Self-Care Skills OT Treatment, Training and Edu: Yes Plan of Care: ADL Retraining, Functional Mobility, Group Exercise/Act as Ind, UE Funct Exercise/Act Treatment Duration: Mar 12, 2021 Frequency: At least 5 of 7 days/Wk (IRF) Estimated Hrs Per Day: 1.[address] IPOC Speech Therapy Treatment Plan: Discontinue ST Treatment Duration: Feb 18, 2021 Frequency: 1 time per week Estimated Hrs Per Day: .5 hour per day Furniture Sander/Case Mgmt Furniture Sander/Case Managemen: Discharge Planning Dietitian/Teacher Advisor Dietitian/Teacher Advisor to monitor nutritional status and make changes and/or recommendations as needed and work with speech pathology on dietary upgrades as the occur. Physician IPOC Medical Issues being managed closely and that require the 24 hour availability of a physician: Recent patellar fracture with immobilizer and will place her at fall risk and recent transfusions and recent stent placement will require close monitoring for any decompensation Medical Issues: Bowel/Bladder Function, DVT Prophylaxis, Falls Precautions, Fluid/Electrolyte/Nutrition Balance, Infection Protection, Pain Management, Wound Care Brief Synthesis of Preadmission Screen, Post-Admission Evaluation, and Therapy Evaluations: PT and OT will focus on regaining function with use of an ambulatory assistive device and increase ADLs in order to return back to independent living Medical Prognosis: Good Anticipated Length of Stay: 14 days CASIE COSTA DO Feb 19, 2021 11:06
--- NOTE | 2021-02-19 11:06 | PM&R Progress Note ---
Subjective HPI/CC On Admission Date Seen by Provider: Feb 19, 2021 Time Seen by Provider: 11:15 Subjective/Events-last exam 02/19/2021: Patient doing well Family visiting Pain is pretty well controlled Hemoglobin stable Adding potassium due to hypokalemia Check meds and labs Participating in therapy Review of Systems General: Fatigue, Malaise Musculoskeletal: leg pain Objective Exam Vital Signs Vital Signs Date Time Temp Pulse Resp B/P (MAP) Pulse Ox O2 Delivery O2 Flow Rate FiO2 02/19/21 20:55 Room Air 02/19/21 20:00 36.6 72 18 144/65 (91) 94 Capillary Refill : General Appearance: No Apparent Distress, WD/WN, Chronically ill, Thin HEENT: PERRL/EOMI, Normal ENT Inspection, Pharynx Normal Neck: Full Range of Motion, Normal Inspection, Non Tender, Supple, Carotid Bruit Respiratory: Chest Non Tender, Lungs Clear, Normal Breath Sounds, No Accessory Muscle Use, No Respiratory Distress Cardiovascular: Regular Rate, Rhythm, No Edema, No Gallop, No JVD, No Murmur, Normal Peripheral Pulses Gastrointestinal: Normal Bowel Sounds, No Organomegaly, No Pulsatile Mass, Non Tender, Soft Back: Normal Inspection, No CVA Tenderness, No Vertebral Tenderness Extremity: Normal Capillary Refill, Normal Inspection, Normal Range of Motion (Right leg in immobilizer), Non Tender, No Calf Tenderness, No Pedal Edema Neurologic/Psychiatric: Alert, Oriented x3, No Motor/Sensory Deficits, Normal Mood/Affect, aircrewman II-XII Norm as Tested, Abnormal Gait, Motor Weakness (Right leg) Skin: Normal Color, Warm/Dry Lymphatic: No Adenopathy Results/Procedures Lab Patient resulted labs reviewed. FIM Transfers Therapy Code Descriptions/Definitions Functional [place] Measure: 0=Not Assessed/NA 4=Minimal Assistance 1=Total Assistance 5=Supervision or Setup 2=Maximal Assistance 6=Modified [place] 3=Moderate Assistance 7=Complete IndependenceSCALE: Activities may be completed with or without assistive devices. 2-Oiogymryek-mvhuxtb completes the activity by him/herself with no assistance from a helper. 5-Set-up or Clean-up Assistance-helper sets up or cleans up; patient completes activity. [place] assists only prior to or following the activity. 4-Supervision or Touching Assistance-helper provides verbal cues and/or touching/steadying and/or contact guard assistance as patient completes activity. Assistance may be provided throughout the activity or intermittently. 3-Partial/Moderate Assistance-helper does LESS THAN HALF the effort. [place] lifts, holds or supports trunk or limbs, but provides less than half the effort. 2-Substantial/Maximal Assistance-helper does MORE THAN HALF the effort. [place] lifts or holds trunk or limbs and provides more than half the effort. 6-Rndnhkhdm-axdmnh does ALL the effort. Patient does none of the effort to complete the activity. Or, the assistance of 2 or more helpers is required for the patient to complete the activity. If activity was not attempted, code reason: 7-Patient Refused. 9-Not Applicable-not attempted and the patient did not perform the activity before the current illness, exacerbation or injury. 10-Not Attempted due to Environmental Limitations-(lack of equipment, weather restraints, etc.). 88-Not Attempted due to Medical Conditions or Safety Concerns. Roll Left to Right (QC): 5 Sit to Lying (QC): 5 Sit to Stand (QC): 4 Chair/Zbm-md-Jtkiv Xfer(QC): 3 Car Transfer (QC): 3 Gait Training Does the Patient Walk?: Yes Distance: 10' Walk 10 feet (QC): 3 Walk 50 ft with 2 Turns(QC): 88 Walk 150 ft (QC): 88 Walking 10ft/uneven surface-QC: 88 Gait Assistive Device: FWW Wheelchair Training Does the Pt Use a Wheelchair?: Yes Distance: 30 Wheel 50 ft with 2 turns (QC): 4 Wheel 150 ft (QC): 4 Type of Wheelchair: Manual Stair Training #of Steps: 0 1 Step (curb) (QC): 88 4 Steps (QC): 88 12 Steps (QC): 88 Balance Picking up an Object (QC): 3 ADL-Treatment Eating (QC): 5 (Per clinical judgement) Oral Hygiene (QC): 5 Shower/Bathe Self (QC): 3 Upper Body Dressing (QC): 5 Lower Body Dressing (QC): 3 On/Off Footwear (QC): 3 Toileting Hygiene (QC): 2 Toilet Transfer (QC): 3 Assessment/Plan Assessment and Plan Assess & Plan/Chief Complaint Assessment: Status post right patellar fracture now in immobilizer status post uncomplicated repair Acute blood loss anemia requiring transfusion Recent GI bleed requiring transfusion Iron deficiency on iron infusions CAD recent stent Depression Constipation laxatives ordered [place]cl[place] cath in place now discontinued Plan: Transfuse as necessary Supportive care Inpatient rehab protocol Regain independence Immobilizer 02/19/2021: Supportive care Aggressive therapy Add potassium (1) Right patella fracture Status: Acute (2) CAD (coronary artery disease) (3) Stented coronary artery (4) History of GI bleed (5) Transfusion of blood during current hospitalisation (6) Low BMI (7) Risk for falls (8) Depression (9) Constipation (10) Severe anemia Status: Acute CASIE COSTA DO Feb 19, 2021 11:06
[2021-02-19] MEDS ORDERED: BISACODYL 10 MG SUPP (DULCOLAX) PR NR (11:30)
--- NOTE | 2021-02-19 13:34 | Occupational Ther Daily Note ---
OT Current Status-Daily Note Subjective Pt finishing lunch at OT arrival, agreeable to treatment. Appearance Pt left supine in bed, all needs within reach. ADL-Treatment Therapy Code Descriptions/Definitions Functional [place] Measure: 0=Not Assessed/NA 4=Minimal Assistance 1=Total Assistance 5=Supervision or Setup 2=Maximal Assistance 6=Modified [place] 3=Moderate Assistance 7=Complete IndependenceSCALE: Activities may be completed with or without assistive devices. 0-Iovnowrzxt-cfgsamb completes the activity by him/herself with no assistance from a helper. 5-Set-up or Clean-up Assistance-helper sets up or cleans up; patient completes activity. [place] assists only prior to or following the activity. 4-Supervision or Touching Assistance-helper provides verbal cues and/or touching/steadying and/or contact guard assistance as patient completes activity. Assistance may be provided throughout the activity or intermittently. 3-Partial/Moderate Assistance-helper does LESS THAN HALF the effort. [place] lifts, holds or supports trunk or limbs, but provides less than half the effort. 2-Substantial/Maximal Assistance-helper does MORE THAN HALF the effort. [place] lifts or holds trunk or limbs and provides more than half the effort. 1-Vtibqjfxv-enhgtw does ALL the effort. Patient does none of the effort to complete the activity. Or, the assistance of 2 or more helpers is required for the patient to complete the activity. If activity was not attempted, code reason: 7-Patient Refused. 9-Not Applicable-not attempted and the patient did not perform the activity before the current illness, exacerbation or injury. 10-Not Attempted due to Environmental Limitations-(lack of equipment, weather restraints, etc.). 88-Not Attempted due to Medical Conditions or Safety Concerns. Other Treatment Pt participated in UE exercises with goal to promote increased strength and endurance for adls, transfers and ambulation (while maintaining NWB on LE). 2# dumbbell utilized for all exercises. 11x2 in all planes. Pt able to complete through full range, min cues for technique and control of movement. Short rest breaks needed between sets. Education OT Patient Education: Correct positioning, Energy conservation, Exercise program, Progress toward Goal/Update tx plan, Purpose of tx/functional activities Teaching Recipient: Patient Teaching Methods: Demonstration, Discussion Response to Teaching: Verbalize Understanding, Return Demonstration, Reinforcement Needed OT Short Term Goals Short Term Goals Time Frame: Feb 26, 2021 Eatin Oral hygiene: 4 Toileting hygiene: 4 Shower/bathe self: 4 Upper body dressin Lower body dressin Putting on/taking off footwear: 4 OT Transcription Typist Goals Transcription Typist Goals Time Frame: Mar 12, 2021 Eating (QC): 6 Oral Hygiene (QC): 6 Toileting Hygiene (QC): 6 Shower/Bathe Self (QC): 5 Upper Body Dressing (QC): 6 Lower Body Dressing (QC): 5 On/Off Footwear (QC): 6 1=Demonstrate adherence to instructed precautions during ADL tasks. 2=Patient will verbalize/demonstrate understanding of assistive devices/modifications for ADL. 3=Patient will improve strength/tolerance for activity to enable patient to perform ADL's. OT Education/Plan Problem List/Assessment Assessment: Decreased Activ Tolerance, Decreased Safety Aware, Decreased UE Strength, Impaired Funct Balance, Impaired I ADL's, Impaired Self-Care Skills Discharge Recommendations Plan/Recommendations: Continue POC Treatment Plan/Plan of Care Treatment,Training & Education: Yes Patient would benefit from OT for education, treatment and training to promote independence in ADL's, mobility, safety and/or upper extremity function for ADL's. Plan of Care: ADL Retraining, Functional Mobility, Group Exercise/Act as Ind, UE Funct Exercise/Act Treatment Duration: Mar 12, 2021 Frequency: At least 5 of 7 days/Wk (IRF) Estimated Hrs Per Day: 1.5 hours per day Agreement: Yes Rehab Potential: Fair Time/GCodes Start Time: 13:00 Stop Time: 13:30 Total Time Billed (hr/min): 30 Billed Treatment Time 1 visit EX Sis Diaz OT Feb 19, 2021 13:34
--- NOTE | 2021-02-19 14:28 | Physical Therapy Daily Note ---
PT Daily Note-Current Subjective Pt in bed upon arrival w/ RN in room and agrees to tx. Pt states pain 7/10 in R knee. Pain Numeric Pain Scale: 7 Location: Right Location Body Site: Knee Pain Description: Burning Mental Status Patient Orientation: Person, Place Transfers SCALE: Activities may be completed with or without assistive devices. 0-Xqopejotni-lsgjdbe completes the activity by him/herself with no assistance from a helper. 5-Set-up or Clean-up Assistance-helper sets up or cleans up; patient completes activity. [place] assists only prior to or following the activity. 4-Supervision or Touching Assistance-helper provides verbal cues and/or touching/steadying and/or contact guard assistance as patient completes activity. Assistance may be provided throughout the activity or intermittently. 3-Partial/Moderate Assistance-helper does LESS THAN HALF the effort. [place] lifts, holds or supports trunk or limbs, but provides less than half the effort. 2-Substantial/Maximal Assistance-helper does MORE THAN HALF the effort. [place] lifts or holds trunk or limbs and provides more than half the effort. 7-Wixyztixx-fngtio does ALL the effort. Patient does none of the effort to complete the activity. Or, the assistance of 2 or more helpers is required for the patient to complete the activity. If activity was not attempted, code reason: 7-Patient Refused. 9-Not Applicable-not attempted and the patient did not perform the activity before the current illness, exacerbation or injury. 10-Not Attempted due to Environmental Limitations-(lack of equipment, weather restraints, etc.). 88-Not Attempted due to Medical Conditions or Safety Concerns. Roll Left & Right (QC): 5 Sit to Lying (QC): 5 Lying to Sitting/Side of Bed(Q: 5 Sit to Stand (QC): 3 Weight Bearing Right Lower Extremity: Right Non Weight Bearing Gait Training Does the Patient Walk?: Yes Distance: 15' x2 Walk 10 feet (QC): 3 Gait Assistive Device: FWW Pt has extremely slow, swing to gait. When fatigued, pt seems to WB through toes on R LE. VC given for NWB precautions. Treatments Pt completes bed mobility, practicing supine to/from sit transfers. Pt then sits EOB, sit to stand and amb 15' in room to WC placed on other side of room. Pt amb another 15' back to bed, sit to supine, and is able to scoot self to center of bed and towards HOB. Pt is left with all needs met, call light in hand. Assessment Current Status: Fair Progress Pt limited by pain and NWB precautions. VC given to keep precautions, but pt seems to WB through toes when fatigued during amb. PT Short Term Goals Short Term Goals Time Frame: Mar 03, 2021 Roll Left & Right: 5 Sit to lyin Lying to sitting on side of be: 5 Sit to stand: 5 Chair/aqb-zq-qmxfo transfer: 5 Toilet transfer: 5 Car transfer: 5 Walk 10 feet: 5 Walk 50 feet with two turns: 5 Walk 150 feet: 4 Does pt use a wc or scooter: No Wheel 50ft w/2 turns: 6 Wheel 150 feet: 5 Type: Manual PT Senior Care Goals Durable Medical Equipment Repairer Goals PT Senior Care Goals Time Frame: Mar 23, 2021 Roll Left & Right (QC): 6 Sit to Lying (QC): 6 Lying-Sitting on Side/Bed(QC): 6 Sit to Stand (QC): 6 Chair/Lnb-at-Viqkh Xfer(QC): 6 Toilet Transfer (QC): 6 Car Transfer (QC): 6 Does the Patient Walk: Yes Walk 10 feet (QC): 6 Walk 50ft with 2 Turns (QC): 6 Walk 150 ft (QC): 5 Walking 10ft on Uneven Surface: 4 1 Step (curb) (QC): 4 4 Steps (QC): 4 12 Steps (QC): 4 Picking up an Object (QC): 6 Does the Pt use WC or Scooter?: Yes Wheel 50 feet with 2 turns (QC: 6 Wheel 150 feet: 6 Type: Manual PT Plan Treatment/Plan Treatment Plan: Continue Plan of Care Treatment Plan: Bed Mobility, Education, Functional Activity Kerry, Functional Strength, Group Therapy, Gait, Safety, Therapeutic Exercise, Transfers Treatment Duration: Apr 21, 2021 Frequency: At least 5 of 7 days/Wk (IRF) Estimated Hrs Per Day: 1.5 hours per day Patient and/or Family Agrees t: Yes Time/GCodes Time In: 1400 Time Out: 1430 Total Billed Treatment 1, GT, JOSE G JOHN CONSUMER ADVOCATE Feb 19, 2021 14:28
[2021-02-19] MEDS ORDERED: RT-ALBUTEROL/IPRATROPIUM 3 ML (DUONEB) VIAL INH PRN (14:45)
--- NOTE | 2021-02-19 15:02 | Progress Note ---
Subjective Date Seen by a Provider: Feb 19, 2021 Time Seen by a Provider: 14:56 Subjective/Events-last exam Fwup Right patellar fracture, Acute on Chronic Anemia, CAD, Hx. of PUD, Anxiety. C/O no BM for several days. Passing gas. Pain fairly well controlled. Objective Exam Vital Signs Date Time Temp Pulse Resp B/P (MAP) Pulse Ox O2 Delivery O2 Flow Rate FiO2 02/19/21 09:00 Room Air 02/19/21 07:56 37.1 77 14 130/60 (83) 97 Room Air 02/19/21 07:26 95 Room Air 02/19/21 06:52 36.4 02/18/21 21:29 36.4 02/18/21 21:28 Room Air 02/18/21 21:00 95 Room Air 02/18/21 20:59 36.4 02/18/21 20:00 37.2 73 20 151/70 (97) 95 Room Air 02/18/21 15:07 99 Room Air 02/18/21 15:00 36.4 75 20 125/64 (84) 99 Room Air Capillary Refill : General Appearance: No Apparent Distress Neck: Supple Respiratory: Lungs Clear Cardiovascular: Regular Rate, Rhythm Gastrointestinal: normal bowel sounds, non tender, soft Extremity: Pedal Edema (right LE swelling) Neurologic/Psychiatric: Alert, Oriented x3 Skin: Ecchymosis (Right lower leg) Results Lab Laboratory Tests 02/19/21 06:05: White Blood Count 8.0, Red Blood Count 3.49L, Hemoglobin 9.3L, Hematocrit 29L, Mean Corpuscular Volume 84, Mean Corpuscular Hemoglobin 27, Mean Corpuscular Hemoglobin Concent 32, Red Cell Distribution Width 17.3H, Platelet Count 180, Mean Platelet Volume 9.2, Immature Granulocyte % (Auto) 0, Neutrophils (%) (Auto) 82H, Lymphocytes (%) (Auto) 7L, Monocytes (%) (Auto) 7, Eosinophils (%) (Auto) 3, Basophils (%) (Auto) 0, Neutrophils # (Auto) 6.6, Lymphocytes # (Auto) 0.6L, Monocytes # (Auto) 0.6, Eosinophils # (Auto) 0.2, Basophils # (Auto) 0.0, Immature Granulocyte # (Auto) 0.0, Sodium Level 133L, Potassium Level 3.3L, Chloride Level 102, Carbon Dioxide Level 22, Anion Gap 9, Blood Urea Nitrogen 7, Creatinine 0.58L, Estimat Glomerular Filtration Rate 100, BUN/Creatinine Ratio 12, Glucose Level 99, Calcium Level 8.1L, Corrected Calcium 8.9, Total Bilirubin 0.9, Aspartate Amino Transf (AST/SGOT) 11, Alanine Aminotransferase (ALT/SGPT) 9, Alkaline Phosphatase 77, Total Protein 5.2L, Albumin 3.0L Assessment/Plan Assessment/Plan Assess & Plan/Chief Complaint 1. Right Patellar Fracture--S/P surgery, pain control, in knee immobilizer with no weight bearing so doing PT/OT, no lovenox done due to recent GI bleed and post-op anemia requiring blood transfusion 2. Acute on Chronic Anemia--History of Bleeding Ulcer and Post-op Anemia--S/P transfusion, H/H stable, iron started 3. History of Bleeding Ulcer--on protonix BID 4. CAD--back on plavix and aspirin 5. Anxiety--on paxil 6. Constipation--on colace/senokot with prns--discussed bisacodyl suppository if needed which is on JUN for prn ROBSON MO DO Feb 19, 2021 15:02
[2021-02-19 20:00] VITALS: BP 144/65
[2021-02-20] MEDS: PANTOPRAZOLE 40 MG (PROTONIX) TAB PO SCH ×2 (06:49→16:16)
[2021-02-20] MEDS: KCL 20 MEQ TAB (K-DUR) PO SCH (06:49)
[2021-02-20] MEDS: ASPIRIN E.C. 81 MG (ECOTRIN) TAB PO SCH (07:24)
[2021-02-20] MEDS: SENNA W/DOCUSATE (SENOKOT S) TABLET PO SCH ×2 (07:24→21:17)
[2021-02-20] MEDS: PARoxetine 10 MG (PAXIL) TAB PO SCH (07:24)
[2021-02-20] MEDS: CLOPIDOGREL 75 MG (PLAVIX) TABLET PO SCH (07:25)
[2021-02-20 07:30] VITALS: BP 124/60
[2021-02-20] MEDS: ACETAMINOPHEN 500 MG TAB (TYLENOL) PO PRN ×2 (07:39→16:17)
[2021-02-20] MEDS ORDERED: IRON SUCROSE 200 MG/10 ML (VENOFER) VIAL IV SCH (09:00)
--- NOTE | 2021-02-20 10:48 | Physical Therapy Daily Note ---
PT Daily Note-Current Subjective Pt agreeable. Asking how long she will be NWB and have to wear the immobilizer. Denies pain at rest, reports pain with sit->supine but not rated. Mental Status Patient Orientation: Person, Place, Time, Situation Attachments: Knee Immobilizer, SCD's Transfers SCALE: Activities may be completed with or without assistive devices. 7-Tjqkcbgdlv-dhfgxni completes the activity by him/herself with no assistance from a helper. 5-Set-up or Clean-up Assistance-helper sets up or cleans up; patient completes activity. [place] assists only prior to or following the activity. 4-Supervision or Touching Assistance-helper provides verbal cues and/or touching/steadying and/or contact guard assistance as patient completes activity. Assistance may be provided throughout the activity or intermittently. 3-Partial/Moderate Assistance-helper does LESS THAN HALF the effort. [place] lifts, holds or supports trunk or limbs, but provides less than half the effort. 2-Substantial/Maximal Assistance-helper does MORE THAN HALF the effort. [place] lifts or holds trunk or limbs and provides more than half the effort. 2-Xomjheyhy-okjozz does ALL the effort. Patient does none of the effort to complete the activity. Or, the assistance of 2 or more helpers is required for the patient to complete the activity. If activity was not attempted, code reason: 7-Patient Refused. 9-Not Applicable-not attempted and the patient did not perform the activity before the current illness, exacerbation or injury. 10-Not Attempted due to Environmental Limitations-(lack of equipment, weather restraints, etc.). 88-Not Attempted due to Medical Conditions or Safety Concerns. Sit to Lying (QC): 3 Lying to Sitting/Side of Bed(Q: 5 Sit to Stand (QC): 5 Toilet Transfer (QC): 4 CGA for balance with toilet transfer Weight Bearing Right Lower Extremity: Right Non Weight Bearing Gait Training Does the Patient Walk?: Yes Distance: 15 Walk 10 feet (QC): 4 Walk 50 ft with 2 Turns(QC): 88 Walk 150 ft (QC): 88 Gait Persons Needed: 1 Gait Assistive Device: FWW Pt ambulated 15' x 2 with FWW with CGA x 1 with seated recovery break. When fa tigued, Pt tends to WB on toes for balance, VCS for NWB status. Returned to bed with all needs met, LE elevated with heels floated. Treatments Gait training with FWW. Assessment Current Status: Fair Progress Pt tolerated well. Tendency to demonstrate TTWB on (R) with fatigue despite VCS. PT Short Term Goals Short Term Goals Time Frame: Mar 03, 2021 Roll Left & Right: 5 Sit to lyin Lying to sitting on side of be: 5 Sit to stand: 5 Chair/wfy-uz-bzpbk transfer: 5 Toilet transfer: 5 Car transfer: 5 Walk 10 feet: 5 Walk 50 feet with two turns: 5 Walk 150 feet: 4 Does pt use a wc or scooter: No Wheel 50ft w/2 turns: 6 Wheel 150 feet: 5 Type: Manual PT Systems Auditor Goals Systems Auditor Goals PT Systems Auditor Goals Time Frame: Mar 23, 2021 Roll Left & Right (QC): 6 Sit to Lying (QC): 6 Lying-Sitting on Side/Bed(QC): 6 Sit to Stand (QC): 6 Chair/Zgq-kt-Ulbar Xfer(QC): 6 Toilet Transfer (QC): 6 Car Transfer (QC): 6 Does the Patient Walk: Yes Walk 10 feet (QC): 6 Walk 50ft with 2 Turns (QC): 6 Walk 150 ft (QC): 5 Walking 10ft on Uneven Surface: 4 1 Step (curb) (QC): 4 4 Steps (QC): 4 12 Steps (QC): 4 Picking up an Object (QC): 6 Does the Pt use WC or Scooter?: Yes Wheel 50 feet with 2 turns (QC: 6 Wheel 150 feet: 6 Type: Manual PT Plan Problem List Problem List: Activity Tolerance, Functional Strength, Safety, Balance, Gait, Transfer, Bed Mobility, ROM Treatment/Plan Treatment Plan: Continue Plan of Care Treatment Plan: Bed Mobility, Education, Functional Activity Kerry, Functional Strength, Group Therapy, Gait, Safety, Therapeutic Exercise, Transfers Treatment Duration: Apr 21, 2021 Frequency: At least 5 of 7 days/Wk (IRF) Estimated Hrs Per Day: 1.5 hours per day Patient and/or Family Agrees t: Yes Time/GCodes Time In: 923 Time Out: 946 Total Billed Treatment Time: 23 Total Billed Treatment 1, GT x 23' ALBERT STEPHENSON DPT Feb 20, 2021 10:48
--- NOTE | 2021-02-20 12:36 | PM&R Progress Note ---
Subjective HPI/CC On Admission Date Seen by Provider: Feb 20, 2021 Time Seen by Provider: 12:40 Subjective/Events-last exam 02/20/2021: Patient doing well Does not really want to be here but she says she has no choice Does not want iron infusions due to perceived side effects so we will disconti nue Labs remained stable Bowels moved last night Family member at the bedside Constantly complaining of right leg immobilizer 02/19/2021: Patient doing well Family visiting Pain is pretty well controlled Hemoglobin stable Adding potassium due to hypokalemia Check meds and labs Participating in therapy Review of Systems General: Fatigue Musculoskeletal: leg pain Objective Exam Vital Signs Vital Signs Date Time Temp Pulse Resp B/P (MAP) Pulse Ox O2 Delivery O2 Flow Rate FiO2 02/20/21 21:19 Room Air 02/20/21 19:56 36.9 65 18 131/77 (95) 94 Capillary Refill : General Appearance: No Apparent Distress, WD/WN, Chronically ill, Thin HEENT: PERRL/EOMI, Normal ENT Inspection, Pharynx Normal Neck: Full Range of Motion, Normal Inspection, Non Tender, Supple, Carotid Bruit Respiratory: Chest Non Tender, Lungs Clear, Normal Breath Sounds, No Accessory Muscle Use, No Respiratory Distress Cardiovascular: Regular Rate, Rhythm, No Edema, No Gallop, No JVD, No Murmur, Normal Peripheral Pulses Gastrointestinal: Normal Bowel Sounds, No Organomegaly, No Pulsatile Mass, Non Tender, Soft Back: Normal Inspection, No CVA Tenderness, No Vertebral Tenderness Extremity: Normal Capillary Refill, Normal Inspection, Normal Range of Motion (Right leg in immobilizer), Non Tender, No Calf Tenderness, No Pedal Edema Neurologic/Psychiatric: Alert, Oriented x3, No Motor/Sensory Deficits, Normal Mood/Affect, hand stripper II-XII Norm as Tested, Abnormal Gait, Motor Weakness (Right l eg) Skin: Normal Color, Warm/Dry Lymphatic: No Adenopathy Results/Procedures Lab Patient resulted labs reviewed. FIM Transfers Therapy Code Descriptions/Definitions Functional [place] Measure: 0=Not Assessed/NA 4=Minimal Assistance 1=Total Assistance 5=Supervision or Setup 2=Maximal Assistance 6=Modified [place] 3=Moderate Assistance 7=Complete IndependenceSCALE: Activities may be completed with or without assistive devices. 4-Lxmevctvwf-ypgjzap completes the activity by him/herself with no assistance from a helper. 5-Set-up or Clean-up Assistance-helper sets up or cleans up; patient completes activity. [place] assists only prior to or following the activity. 4-Supervision or Touching Assistance-helper provides verbal cues and/or touching/steadying and/or contact guard assistance as patient completes activity. Assistance may be provided throughout the activity or intermittently. 3-Partial/Moderate Assistance-helper does LESS THAN HALF the effort. [place] lifts, holds or supports trunk or limbs, but provides less than half the effort. 2-Substantial/Maximal Assistance-helper does MORE THAN HALF the effort. [place] lifts or holds trunk or limbs and provides more than half the effort. 8-Eravwbcrq-nnpzqo does ALL the effort. Patient does none of the effort to complete the activity. Or, the assistance of 2 or more helpers is required for the patient to complete the activity. If activity was not attempted, code reason: 7-Patient Refused. 9-Not Applicable-not attempted and the patient did not perform the activity before the current illness, exacerbation or injury. 10-Not Attempted due to Environmental Limitations-(lack of equipment, weather restraints, etc.). 88-Not Attempted due to Medical Conditions or Safety Concerns. Roll Left to Right (QC): 5 Sit to Lying (QC): 3 Sit to Stand (QC): 5 Chair/Mvt-yy-Uirqn Xfer(QC): 3 Car Transfer (QC): 3 Gait Training Does the Patient Walk?: Yes Distance: 15 Walk 10 feet (QC): 4 Walk 50 ft with 2 Turns(QC): 88 Walk 150 ft (QC): 88 Walking 10ft/uneven surface-QC: 88 Gait Persons Needed: 1 Gait Assistive Device: FWW Wheelchair Training Does the Pt Use a Wheelchair?: Yes Distance: 30 Wheel 50 ft with 2 turns (QC): 4 Wheel 150 ft (QC): 4 Type of Wheelchair: Manual Stair Training #of Steps: 0 1 Step (curb) (QC): 88 4 Steps (QC): 88 12 Steps (QC): 88 Balance Picking up an Object (QC): 3 ADL-Treatment Eating (QC): 5 (Per clinical judgement) Oral Hygiene (QC): 5 Shower/Bathe Self (QC): 3 Upper Body Dressing (QC): 5 Lower Body Dressing (QC): 3 On/Off Footwear (QC): 3 Toileting Hygiene (QC): 2 Toilet Transfer (QC): 3 Assessment/Plan Assessment and Plan Assess & Plan/Chief Complaint Assessment: Status post right patellar fracture now in immobilizer status post uncomplicated repair Acute blood loss anemia requiring transfusion Recent GI bleed requiring transfusion Iron deficiency on iron infusions CAD recent stent Depression Constipation laxatives ordered Mcclure cath in place now discontinued Plan: Transfuse as necessary Supportive care Inpatient rehab protocol Regain independence Immobilizer 02/19/2021: Supportive care Aggressive therapy Add potassium 02/20/2021: Maintain pain control Bowel regimen (1) Right patella fracture Status: Acute (2) CAD (coronary artery disease) (3) Stented coronary artery (4) History of GI bleed (5) Transfusion of blood during current hospitalisation (6) Low BMI (7) Risk for falls (8) Depression (9) Constipation (10) Severe anemia Status: Acute CASIE COSTA DO Feb 20, 2021 12:36
[2021-02-20] MEDS: DOCUSATE SODIUM 100 MG (COLACE) CAP PO SCH ×2 (16:16→21:17)
[2021-02-20] MEDS: polyethylene glycoL POWDER 17 GM (MIRALAX) PACK PO SCH ×3 (16:16→21:18)
[2021-02-20] MEDS: ALPRAZolam 0.25 MG (XANAX) TAB PO PRN (16:16)
[2021-02-20 19:56] VITALS: BP 131/77
[2021-02-21] MEDS: PANTOPRAZOLE 40 MG (PROTONIX) TAB PO SCH ×2 (06:44→17:24)
[2021-02-21] MEDS: KCL 20 MEQ TAB (K-DUR) PO SCH (06:44)
--- NOTE | 2021-02-21 07:14 | PM&R Progress Note ---
Subjective HPI/CC On Admission Date Seen by Provider: Feb 21, 2021 Time Seen by Provider: 12:30 Subjective/Events-last exam 02/21/2021: Patient doing well Her birthday is today Check labs in the morning Pain is well controlled Complains about immobilizer 02/20/2021: Patient doing well Does not really want to be here but she says she has no choice Does not want iron infusions due to perceived side effects so we will dis continue Labs remained stable Bowels moved last night Family member at the bedside Constantly complaining of right leg immobilizer 02/19/2021: Patient doing well Family visiting Pain is pretty well controlled Hemoglobin stable Adding potassium due to hypokalemia Check meds and labs Participating in therapy Review of Systems General: Fatigue, Malaise Objective Exam Vital Signs Vital Signs Date Time Temp Pulse Resp B/P (MAP) Pulse Ox O2 Delivery O2 Flow Rate FiO2 02/21/21 21:35 Room Air 02/21/21 19:42 35.8 65 19 141/65 (90) 95 Capillary Refill : General Appearance: No Apparent Distress, WD/WN, Chronically ill, Thin HEENT: PERRL/EOMI, Normal ENT Inspection, Pharynx Normal Neck: Full Range of Motion, Normal Inspection, Non Tender, Supple, Carotid Bruit Respiratory: Chest Non Tender, Lungs Clear, Normal Breath Sounds, No Accessory Muscle Use, No Respiratory Distress Cardiovascular: Regular Rate, Rhythm, No Edema, No Gallop, No JVD, No Murmur, Normal Peripheral Pulses Gastrointestinal: Normal Bowel Sounds, No Organomegaly, No Pulsatile Mass, Non Tender, Soft Back: Normal Inspection, No CVA Tenderness, No Vertebral Tenderness Extremity: Normal Capillary Refill, Normal Inspection, Normal Range of Motion (Right leg in immobilizer), Non Tender, No Calf Tenderness, No Pedal Edema Neurologic/Psychiatric: Alert, Oriented x3, No Motor/Sensory Deficits, Normal Mood/Affect, formula room worker II-XII Norm as Tested, Abnormal Gait, Motor Weakness (Right leg) Skin: Normal Color, Warm/Dry Lymphatic: No Adenopathy Results/Procedures Lab Patient resulted labs reviewed. FIM Transfers Therapy Code Descriptions/Definitions Functional [place] Measure: 0=Not Assessed/NA 4=Minimal Assistance 1=Total Assistance 5=Supervision or Setup 2=Maximal Assistance 6=Modified [place] 3=Moderate Assistance 7=Complete IndependenceSCALE: Activities may be completed with or without assistive devices. 5-Sjpuvslvwn-letsfjw completes the activity by him/herself with no assistance from a helper. 5-Set-up or Clean-up Assistance-helper sets up or cleans up; patient completes activity. [place] assists only prior to or following the activity. 4-Supervision or Touching Assistance-helper provides verbal cues and/or touching/steadying and/or contact guard assistance as patient completes activity. Assistance may be provided throughout the activity or intermittently. 3-Partial/Moderate Assistance-helper does LESS THAN HALF the effort. [place] lifts, holds or supports trunk or limbs, but provides less than half the effort. 2-Substantial/Maximal Assistance-helper does MORE THAN HALF the effort. [place] lifts or holds trunk or limbs and provides more than half the effort. 1-Mjklmugrd-ekswdf does ALL the effort. Patient does none of the effort to complete the activity. Or, the assistance of 2 or more helpers is required for the patient to complete the activity. If activity was not attempted, code reason: 7-Patient Refused. 9-Not Applicable-not attempted and the patient did not perform the activity before the current illness, exacerbation or injury. 10-Not Attempted due to Environmental Limitations-(lack of equipment, weather restraints, etc.). 88-Not Attempted due to Medical Conditions or Safety Concerns. Roll Left to Right (QC): 5 Sit to Lying (QC): 3 Sit to Stand (QC): 5 Chair/Xrd-jj-Ipmkd Xfer(QC): 3 Car Transfer (QC): 3 Gait Training Does the Patient Walk?: Yes Distance: 15 Walk 10 feet (QC): 4 Walk 50 ft with 2 Turns(QC): 88 Walk 150 ft (QC): 88 Walking 10ft/uneven surface-QC: 88 Gait Persons Needed: 1 Gait Assistive Device: FWW Wheelchair Training Does the Pt Use a Wheelchair?: Yes Distance: 30 Wheel 50 ft with 2 turns (QC): 4 Wheel 150 ft (QC): 4 Type of Wheelchair: Manual Stair Training #of Steps: 0 1 Step (curb) (QC): 88 4 Steps (QC): 88 12 Steps (QC): 88 Balance Picking up an Object (QC): 3 ADL-Treatment Eating (QC): 5 (Per clinical judgement) Oral Hygiene (QC): 5 Shower/Bathe Self (QC): 3 Upper Body Dressing (QC): 5 Lower Body Dressing (QC): 3 On/Off Footwear (QC): 3 Toileting Hygiene (QC): 2 Toilet Transfer (QC): 3 Assessment/Plan Assessment and Plan Assess & Plan/Chief Complaint Assessment: Status post right patellar fracture now in immobilizer status post uncomplicated repair Acute blood loss anemia requiring transfusion Recent GI bleed requiring transfusion Iron deficiency on iron infusions CAD recent stent Depression Constipation laxatives ordered Mcclure cath in place now discontinued Plan: Transfuse as necessary Supportive care Inpatient rehab protocol Regain independence Immobilizer 02/19/2021: Supportive care Aggressive therapy Add potassium 02/20/2021: Maintain pain control Bowel regimen 02/21/2021: Continue pain control Monitor hemoglobin Refuses iron infusion (1) Right patella fracture Status: Acute (2) CAD (coronary artery disease) (3) Stented coronary artery (4) History of GI bleed (5) Transfusion of blood during current hospitalisation (6) Low BMI (7) Risk for falls (8) Depression (9) Constipation (10) Severe anemia Status: Acute CASIE COSTA DO Feb 21, 2021 07:14
[2021-02-21 07:30] VITALS: BP 130/60
[2021-02-21] MEDS: polyethylene glycoL POWDER 17 GM (MIRALAX) PACK PO SCH ×2 (10:31→21:45)
[2021-02-21] MEDS: DOCUSATE SODIUM 100 MG (COLACE) CAP PO SCH ×2 (10:31→21:45)
[2021-02-21] MEDS: SENNA W/DOCUSATE (SENOKOT S) TABLET PO SCH ×2 (10:32→21:45)
[2021-02-21] MEDS: CLOPIDOGREL 75 MG (PLAVIX) TABLET PO SCH (10:32)
[2021-02-21] MEDS: PARoxetine 10 MG (PAXIL) TAB PO SCH (10:32)
[2021-02-21] MEDS: ASPIRIN E.C. 81 MG (ECOTRIN) TAB PO SCH (10:32)
[2021-02-21 19:42] VITALS: BP 141/65
[2021-02-22] MEDS: ALPRAZolam 0.25 MG (XANAX) TAB PO PRN (04:54)
[2021-02-22 05:56] LABS: BASOPHILS # (AUTO) 0.1 10^3/uL (0.0-0.1); BASOPHILS % (AUTO) 1 % (0-10); EOSINOPHILS # (AUTO) 0.4 10^3/uL (0.0-0.3); EOSINOPHILS % (AUTO) 6 % (0-10); HEMATOCRIT 30 % (35-52); HEMOGLOBIN 9.6 g/dL (11.5-16.0); LYMPHOCYTES % (AUTO) 15 % (12-44); MEAN CORPUSCULAR HEMOGLOBIN 27 pg (25-34); MEAN CORPUSCULAR HGB CONC 32 g/dL (32-36); MEAN CORPUSCULAR VOLUME 85 fL (80-99); MEAN PLATELET VOLUME 9.3 fL (9.0-12.2); MONOCYTES # (AUTO) 0.7 10^3/uL (0.0-1.0); MONOCYTES % (AUTO) 10 % (0-12); NEUTROPHILS # (AUTO) 4.5 10^3/uL (1.8-7.8); NEUTROPHILS % (AUTO) 67 % (42-75); PLATELET COUNT 189 10^3/uL (130-400); WHITE BLOOD COUNT 6.7 10^3/uL (4.3-11.0)
[2021-02-22 06:06] LABS: ALBUMIN 2.9 GM/DL (3.2-4.5); POTASSIUM 3.9 MMOL/L (3.6-5.0)
[2021-02-22 06:07] LABS: CALCIUM 8.2 MG/DL (8.5-10.1)
[2021-02-22 06:09] LABS: TOTAL PROTEIN 5.3 GM/DL (6.4-8.2)
[2021-02-22 06:11] LABS: BILIRUBIN,TOTAL 0.8 MG/DL (0.1-1.0)
[2021-02-22 06:12] LABS: CREATININE SERUM 0.58 MG/DL (0.60-1.30)
[2021-02-22] MEDS: PANTOPRAZOLE 40 MG (PROTONIX) TAB PO SCH ×2 (06:31→16:59)
[2021-02-22] MEDS: KCL 20 MEQ TAB (K-DUR) PO SCH (06:31)
[2021-02-22 07:38] VITALS: BP 152/72
[2021-02-22] MEDS: PARoxetine 10 MG (PAXIL) TAB PO SCH (08:26)
[2021-02-22] MEDS: CLOPIDOGREL 75 MG (PLAVIX) TABLET PO SCH (08:26)
[2021-02-22] MEDS: ASPIRIN E.C. 81 MG (ECOTRIN) TAB PO SCH (08:26)
[2021-02-22] MEDS: SODIUM CHLORIDE 1 GM TABLET PO SCH ×2 (08:27→20:58)
[2021-02-22] MEDS: DOCUSATE SODIUM 100 MG (COLACE) CAP PO SCH ×2 (08:29→20:56)
[2021-02-22] MEDS: polyethylene glycoL POWDER 17 GM (MIRALAX) PACK PO SCH ×2 (08:29→20:56)
[2021-02-22] MEDS: SENNA W/DOCUSATE (SENOKOT S) TABLET PO SCH ×2 (08:29→20:56)
--- NOTE | 2021-02-22 09:03 | Occupational Ther Daily Note ---
OT Current Status-Daily Note Subjective Pt reports discomfort in R knee and complains of immobolizer often, but no numerical value given. Meds given during treatment. Appearance Pt returned to supine in bed, all needs within reach. Mental Status/Objective Patient Orientation: Person, Place, Time, Situation ADL-Treatment Therapy Code Descriptions/Definitions Functional [place] Measure: 0=Not Assessed/NA 4=Minimal Assistance 1=Total Assistance 5=Supervision or Setup 2=Maximal Assistance 6=Modified [place] 3=Moderate Assistance 7=Complete IndependenceSCALE: Activities may be completed with or without assistive devices. 5-Jeecloicgw-zffibql completes the activity by him/herself with no assistance from a helper. 5-Set-up or Clean-up Assistance-helper sets up or cleans up; patient completes activity. [place] assists only prior to or following the activity. 4-Supervision or Touching Assistance-helper provides verbal cues and/or t ouching/steadying and/or contact guard assistance as patient completes activity. Assistance may be provided throughout the activity or intermittently. 3-Partial/Moderate Assistance-helper does LESS THAN HALF the effort. [place] lifts, holds or supports trunk or limbs, but provides less than half the effort. 2-Substantial/Maximal Assistance-helper does MORE THAN HALF the effort. [place] lifts or holds trunk or limbs and provides more than half the effort. 8-Kendggkjx-vsyvuq does ALL the effort. Patient does none of the effort to complete the activity. Or, the assistance of 2 or more helpers is required for the patient to complete the activity. If activity was not attempted, code reason: 7-Patient Refused. 9-Not Applicable-not attempted and the patient did not perform the activity before the current illness, exacerbation or injury. 10-Not Attempted due to Environmental Limitations-(lack of equipment, weather restraints, etc.). 88-Not Attempted due to Medical Conditions or Safety Concerns. Oral Hygiene (QC): 6 Upper Body Dressing (QC): 5 Lower Body Dressing (QC): 3 Toileting Hygiene (QC): 3 Toilet Transfer (QC): 3 Pt sleeping in bed at OT arrival, easy to rouse. Refuses shower. Supine>sit: SBA, extra time to transition RLE, but no assist needed. Sit<>Stand: CGA. She hopped to/from bathroom with CGA and use of walker. Pt initially adheres to NWB, yet with prolong standing, increased cues to maintain precautions needed. Toilet transfer: min a with cue to utilize grab bar. Lifting assist from toilet required. OT positioned commode over toilet to increase height for future use. Extra time/effort to thread RLE into LB clothing secondary to immobolizer. Post instruction on shoe singer, min cues still needed. Good recall to alternate UE support on walker while managing clothing up to waist. Continues to require cues to maintain NWB during task. Grooming tasks completed seated in w/c, extra time but no assist required. Pt is very talkative and requires several cues to redirect back to task. Education OT Patient Education: Correct positioning, Energy conservation, Modified ADL techniques, Progress toward Goal/Update tx plan, Purpose of tx/functional activities, Reviewed precautions, Rehab process, Safety issues, Transfer techniques, Use of adapted equipment Teaching Recipient: Patient Teaching Methods: Demonstration, Discussion Response to Teaching: Verbalize Understanding, Return Demonstration, Reinforcement Needed OT Short Term Goals Short Term Goals Time Frame: Feb 26, 2021 Eatin Oral hygiene: 4 Toileting hygiene: 4 Shower/bathe self: 4 Upper body dressin Lower body dressin Putting on/taking off footwear: 4 OT [facility] Goals Tooth Cutter Clutch Goals Time Frame: Mar 12, 2021 Eating (QC): 6 Oral Hygiene (QC): 6 Toileting Hygiene (QC): 6 Shower/Bathe Self (QC): 5 Upper Body Dressing (QC): 6 Lower Body Dressing (QC): 5 On/Off Footwear (QC): 6 1=Demonstrate adherence to instructed precautions during ADL tasks. 2=Patient will verbalize/demonstrate understanding of assistive devices/modifications for ADL. 3=Patient will improve strength/tolerance for activity to enable patient to perform ADL's. OT Education/Plan Problem List/Assessment Assessment: Decreased Activ Tolerance, Decreased Safety Aware, Decreased UE Strength, Impaired Funct Balance, Impaired I ADL's, Impaired Self-Care Skills Discharge Recommendations Plan/Recommendations: Continue POC Equpiment Recommendations-D/C: Toilet Riser with Rails, Wholesale Loan Processor Treatment Plan/Plan of Care Patient would benefit from OT for education, treatment and training to promote independence in ADL's, mobility, safety and/or upper extremity function for ADL's. Plan of Care: ADL Retraining, Functional Mobility, Group Exercise/Act as Ind, UE Funct Exercise/Act Treatment Duration: Mar 12, 2021 Frequency: At least 5 of 7 days/Wk (IRF) Estimated Hrs Per Day: 1.5 hours per day Agreement: Yes Rehab Potential: Fair Time/GCodes Start Time: 07:55 Stop Time: 09:00 Total Time Billed (hr/min): 65 Billed Treatment Time 1 visit, ADL x4 Sis Bragg OT Feb 22, 2021 09:03
--- NOTE | 2021-02-22 10:49 | PM&R Progress Note ---
Subjective HPI/CC On Admission Date Seen by Provider: Feb 22, 2021 Time Seen by Provider: 10:45 Subjective/Events-last exam 02/22/2021: Dr. Hendricks changed her immobilizer and she thinks it is worse This all she talks about is the immobilizer We will try to make it more comfortable for her Very frail status Fluid restriction along with salt tablets ordered 02/21/2021: Patient doing well Her birthday is today Check labs in the morning Pain is well controlled Complains about immobilizer 02/20/2021: Patient doing well Does not really want to be here but she says she has no choice Does not want iron infusions due to perceived side effects so we will discontinue Labs remained stable Bowels moved last night Family member at the bedside Constantly complaining of right leg immobilizer 02/19/2021: Patient doing well Family visiting Pain is pretty well controlled Hemoglobin stable Adding potassium due to hypokalemia Check meds and labs Participating in therapy Review of Systems General: Fatigue, Malaise Musculoskeletal: leg pain Objective Exam Vital Signs Vital Signs Date Time Temp Pulse Resp B/P (MAP) Pulse Ox O2 Delivery O2 Flow Rate FiO2 02/22/21 20:58 Room Air 02/22/21 20:00 37.0 68 16 149/72 (97) 93 Capillary Refill : General Appearance: No Apparent Distress, WD/WN, Chronically ill, Thin HEENT: PERRL/EOMI, Normal ENT Inspection, Pharynx Normal Neck: Full Range of Motion, Normal Inspection, Non Tender, Supple, Carotid Bruit Respiratory: Chest Non Tender, Lungs Clear, Normal Breath Sounds, No Accessory Muscle Use, No Respiratory Distress Cardiovascular: Regular Rate, Rhythm, No Edema, No Gallop, No JVD, No Murmur, Normal Peripheral Pulses Gastrointestinal: Normal Bowel Sounds, No Organomegaly, No Pulsatile Mass, Non Tender, Soft Back: Normal Inspection, No CVA Tenderness, No Vertebral Tenderness Extremity: Normal Capillary Refill, Normal Inspection, Normal Range of Motion (Right leg in immobilizer), Non Tender, No Calf Tenderness, No Pedal Edema Neurologic/Psychiatric: Alert, Oriented x3, No Motor/Sensory Deficits, Normal Mood/Affect, resizer operator II-XII Norm as Tested, Abnormal Gait, Motor Weakness (Right leg) Skin: Normal Color, Warm/Dry Lymphatic: No Adenopathy Results/Procedures Lab Laboratory Tests 02/22/21 05:46 Patient resulted labs reviewed. FIM Transfers Therapy Code Descriptions/Definitions Functional [place] Measure: 0=Not Assessed/NA 4=Minimal Assistance 1=Total Assistance 5=Supervision or Setup 2=Maximal Assistance 6=Modified [place] 3=Moderate Assistance 7=Complete IndependenceSCALE: Activities may be completed with or without assistive devices. 7-Woifzrvqvp-zfqalpp completes the activity by him/herself with no assistance from a helper. 5-Set-up or Clean-up Assistance-helper sets up or cleans up; patient completes activity. [place] assists only prior to or following the activity. 4-Supervision or Touching Assistance-helper provides verbal cues and/or touching/steadying and/or contact guard assistance as patient completes activity. Assistance may be provided throughout the activity or intermittently. 3-Partial/Moderate Assistance-helper does LESS THAN HALF the effort. [place] lifts, holds or supports trunk or limbs, but provides less than half the effort. 2-Substantial/Maximal Assistance-helper does MORE THAN HALF the effort. [place] lifts or holds trunk or limbs and provides more than half the effort. 7-Iwrdpnmxz-urabqw does ALL the effort. Patient does none of the effort to complete the activity. Or, the assistance of 2 or more helpers is required for the patient to complete the activity. If activity was not attempted, code reason: 7-Patient Refused. 9-Not Applicable-not attempted and the patient did not perform the activity before the current illness, exacerbation or injury. 10-Not Attempted due to Environmental Limitations-(lack of equipment, weather restraints, etc.). 88-Not Attempted due to Medical Conditions or Safety Concerns. Roll Left to Right (QC): 5 Sit to Lying (QC): 3 Sit to Stand (QC): 5 Chair/Qdd-rz-Gdjid Xfer(QC): 3 Car Transfer (QC): 3 Gait Training Does the Patient Walk?: Yes Distance: 15 Walk 10 feet (QC): 4 Walk 50 ft with 2 Turns(QC): 88 Walk 150 ft (QC): 88 Walking 10ft/uneven surface-QC: 88 Gait Persons Needed: 1 Gait Assistive Device: FWW Wheelchair Training Does the Pt Use a Wheelchair?: Yes Distance: 30 Wheel 50 ft with 2 turns (QC): 4 Wheel 150 ft (QC): 4 Type of Wheelchair: Manual Stair Training #of Steps: 0 1 Step (curb) (QC): 88 4 Steps (QC): 88 12 Steps (QC): 88 Balance Picking up an Object (QC): 3 ADL-Treatment Eating (QC): 5 (Per clinical judgement) Oral Hygiene (QC): 6 Shower/Bathe Self (QC): 3 Upper Body Dressing (QC): 5 Lower Body Dressing (QC): 3 On/Off Footwear (QC): 3 Toileting Hygiene (QC): 3 Toilet Transfer (QC): 3 Assessment/Plan Assessment and Plan Assess & Plan/Chief Complaint Assessment: Status post right patellar fracture now in immobilizer status post uncomplicated repair Acute blood loss anemia requiring transfusion Recent GI bleed requiring transfusion Iron deficiency on iron infusions CAD recent stent Depression Constipation laxatives ordered Mcclure cath in place now discontinued Hyponatremia requiring fluid restriction along with salt tablets on 02/22/2021 Plan: Transfuse as necessary Supportive care Inpatient rehab protocol Regain independence Immobilizer 02/19/2021: Supportive care Aggressive therapy Add potassium 02/20/2021: Maintain pain control Bowel regimen 02/21/2021: Continue pain control Monitor hemoglobin Refuses iron infusion 02/22/2021: Immobilizer management Supportive care Fluid restriction (1) Right patella fracture Status: Acute (2) CAD (coronary artery disease) (3) Stented coronary artery (4) History of GI bleed (5) Transfusion of blood during current hospitalisation (6) Low BMI (7) Risk for falls (8) Depression (9) Constipation (10) Severe anemia Status: Acute CASIE COSTA DO Feb 22, 2021 10:49
--- NOTE | 2021-02-22 11:04 | Physical Therapy Daily Note ---
PT Daily Note-Current Subjective Pt in bed upon arrival and agrees to tx. Pt states pain in R LE prior to start of tx, during tx DR changes knee immobilizer, pt states pain 20/10 in R LE at this time. Pt states new knee immobilizer is "much worse" than prior. Pt states "I would rather leave out the window than wear this thing." Mental Status Patient Orientation: Person, Confused, Place Transfers SCALE: Activities may be completed with or without assistive devices. 3-Vjqkimtduf-dnuvcad completes the activity by him/herself with no assistance from a helper. 5-Set-up or Clean-up Assistance-helper sets up or cleans up; patient completes activity. [place] assists only prior to or following the activity. 4-Supervision or Touching Assistance-helper provides verbal cues and/or touching/steadying and/or contact guard assistance as patient completes activity. Assistance may be provided throughout the activity or intermittently. 3-Partial/Moderate Assistance-helper does LESS THAN HALF the effort. [place] lifts, holds or supports trunk or limbs, but provides less than half the effort. 2-Substantial/Maximal Assistance-helper does MORE THAN HALF the effort. [place] lifts or holds trunk or limbs and provides more than half the effort. 9-Jpqbjqfsm-xnfdzr does ALL the effort. Patient does none of the effort to complete the activity. Or, the assistance of 2 or more helpers is required for the patient to complete the activity. If activity was not attempted, code reason: 7-Patient Refused. 9-Not Applicable-not attempted and the patient did not perform the activity before the current illness, exacerbation or injury. 10-Not Attempted due to Environmental Limitations-(lack of equipment, weather restraints, etc.). 88-Not Attempted due to Medical Conditions or Safety Concerns. Sit to Stand (QC): 4 Chair/Gkb-ii-Bthdx Xfer(QC): 4 Weight Bearing Right Lower Extremity: Right Non Weight Bearing Gait Training Does the Patient Walk?: Yes Distance: 17' Walk 10 feet (QC): 4 Gait Persons Needed: 1 Gait Assistive Device: FWW VC given to keep WB precautions as pt tends to TTWB on R LE during gait and transfers. With VC pt will correct for a step or two, then continue w/ TTWB. Wheelchair Training Does the Pt Use a Wheelchair?: Yes Wheel 50 ft with 2 turns (QC): 4 Wheel 150 ft (QC): 4 Type of Wheelchair: Manual VC given for sequencing/positioning for turns, pt didn't follow instructions at this time Treatments Pt supine to sit EOB, sit to stand CGA and amb 17'. Pt states she is unable to amb farther today d/t pain. Pt propels WC 125' on ARU and enters therapy gym. pt completes static standing balance w/ balloon under R LE to keep NWB. Pt has seated RB, enters room at this time and switches pt knee immobilizer. Pt attempts sit to stand with static stance, unable to hold longer than 10 seconds d/t amount of pain. Pt propels WC back to room and SPT to bed CGA. Sit to supine CGA and remains in bed with all needs met, call light in hand. Assessment Current Status: Fair Progress Pt extremely limited by pain, states she is unable to amb. Pt is unmotivated and is ready to DC PT Short Term Goals Short Term Goals Time Frame: Mar 03, 2021 Roll Left & Right: 5 Sit to lyin Lying to sitting on side of be: 5 Sit to stand: 5 Chair/fta-nd-ivqmj transfer: 5 Toilet transfer: 5 Car transfer: 5 Walk 10 feet: 5 Walk 50 feet with two turns: 5 Walk 150 feet: 4 Does pt use a wc or scooter: No Wheel 50ft w/2 turns: 6 Wheel 150 feet: 5 Type: Manual PT Prison Goals Freezer Laboratory Technician Goals PT Prison Goals Time Frame: Mar 23, 2021 Roll Left & Right (QC): 6 Sit to Lying (QC): 6 Lying-Sitting on Side/Bed(QC): 6 Sit to Stand (QC): 6 Chair/Izf-ww-Fpwig Xfer(QC): 6 Toilet Transfer (QC): 6 Car Transfer (QC): 6 Does the Patient Walk: Yes Walk 10 feet (QC): 6 Walk 50ft with 2 Turns (QC): 6 Walk 150 ft (QC): 5 Walking 10ft on Uneven Surface: 4 1 Step (curb) (QC): 4 4 Steps (QC): 4 12 Steps (QC): 4 Picking up an Object (QC): 6 Does the Pt use WC or Scooter?: Yes Wheel 50 feet with 2 turns (QC: 6 Wheel 150 feet: 6 Type: Manual PT Plan Treatment/Plan Treatment Plan: Continue Plan of Care Treatment Plan: Bed Mobility, Education, Functional Activity [place], Functional Strength, Group Therapy, Gait, Safety, Therapeutic Exercise, Transfers Treatment Duration: Apr 21, 2021 Frequency: At least 5 of 7 days/Wk (IRF) Estimated Hrs Per Day: 1.5 hours per day Patient and/or Family Agrees t: Yes Safety Risks/Education Patient Education: Gait Training, Transfer Techniques, Correct Positioning, W/C Management, Safety Issues Teaching Recipient: Patient Teaching Methods: Demonstration, Discussion Response to Teaching: Verbalize Understanding, Reinforcement Needed Time/GCodes Time In: 1000 Time Out: 1100 Total Billed Treatment Time: 60 Total Billed Treatment 1, GT, NM, FA x2 JOSE G ONEILL DISABILITY INSURANCE HEARING OFFICER Feb 22, 2021 11:04
--- NOTE | 2021-02-22 11:11 | Progress Note - Ortho ---
Progress Note Subjective Date of Exam 02/22/21 Chief Complaint POD#5 Reattachment of the patella tendon to the inferior pole patella right knee is status For avulsion fracture inferior pole of patella HPI/Events since last exam Mrs. Pantoja is 5 days postop. She is complaining of the knee immobilizer. She states she has sharp tearing pain anterior knee. She is complaining of some bruising in her thigh. Other than that she seems to be doing fairly well. I saw her in the rehab gym this morning. Review of Systems Reviewed and no additions or change Allergies: Coded Allergies: Penicillins (Verified Allergy, Mild, Skin rash Several years ago, 02/16/21) hydrocodone (Verified Allergy, Mild, The patient states that the hydrocodone made her feel "goofy, 02/16/21) Home Meds Active Scripts Pantoprazole Sodium (Pantoprazole Sodium) 40 Mg Tablet.dr, 40 MG PO BID, #60 TAB Prov:ROBSON MO DO 02/18/21 Paroxetine HCl (Paroxetine HCl) 10 Mg Tablet, 10 MG PO DAILY, #30 TAB Prov:ROBSON MO DO 02/18/21 Tramadol HCl (Tramadol HCl) 50 Mg Tablet, 50 MG PO Q6H PRN for PAIN-MODERATE (5- 7), #30 TAB Prov:ROBSON MO DO 02/18/21 Reported Medications Clopidogrel Bisulfate (Clopidogrel) 75 Mg Tablet, 75 MG PO 1200, TAB 12/09/20 Aspirin (Aspirin EC) 81 Mg Tablet.dr, 81 MG PO DAILY, TAB 12/09/20 Discontinued Reported Medications Aspirin (Aspirin EC) 81 Mg Tablet.dr, 162 MG PO HS PRN for RESTLESSNESS, TAB TAKES 2 (81MG) TABS 02/16/21 Pantoprazole Sodium (Pantoprazole Sodium) 20 Mg Tablet.dr, 20 MG PO BID WITH MEALS, TAB 02/16/21 [Balance Of Nature] No Conflict Check, 1 EACH PO DAILY 12/09/20 Acetaminophen (Tylenol Extra Strength) 500 Mg Tablet, 500 MG PO Q8H PRN for PAIN-MILD (1-4), TAB 12/09/20 Atorvastatin Calcium (Atorvastatin Calcium) 40 Mg Tablet, 40 MG PO 1200 W/MEAL, TAB 12/09/20 Losartan Potassium (Losartan Potassium) 50 Mg Tablet, 50 MG PO 1800 W/MEAL, TAB 12/09/20 Discontinued Scripts Diclofenac Sodium (Arthritis Pain) 100 Gm Gel..gram., 2 GM TP QID PRN for PAIN- MODERATE (5-7), #1 EA Prov:RADHA SCOTT MD 12/17/20 Permethrin (Permethrin) 60 Gm Cream..g., 60 GM TP ONCE, #1 EA 1 Refill Apply head to toe and leave on overnight. Repeat in 1 week if needed. Prov:RADHA SCOTT MD 12/17/20 Pantoprazole Sodium (Pantoprazole Sodium) 40 Mg Tablet.dr, 40 MG PO DAILY, #28 TAB Prov:POPEYE ERAZO MD 12/12/20 Sucralfate (Sucralfate) 1 Gm Tablet, 1 GM PO ACHS, #28 TAB Prov:POPEYE ERAZO MD 12/12/20 Paroxetine HCl (Paroxetine HCl) 10 Mg Tablet, 10 MG PO DAILY for 30 Days, #30 TAB Prov:POPEYE ERAZO MD 12/12/20 Objective Exam Constitutional: [] HEENT: [] Neck: [] Cardiovascular: [] Respiratory: [] Gastrointestinal: [] Genitourinary: [] Skin: [] Back/Spine: [] Extremities: [Her dressing was removed. Her incision looks good without redness or drainage. She has associated bruising around the incision but again was on Plavix prior to her fall/fracture. She has a little bit of bruising upper medial thigh. No calf tenderness negative Homans. She still having trouble doing a straight leg raise but is able to fire off her quad. There appears to be no defect at the repair site. Change her dressing and painted the wound with Betadine then applied 4 x 4's and an [place] wrap. Because the knee immobilizer was not keeping her out in extension and she was complaining of it being uncomfortable I put her in an I ROM brace. I locked the brace out at 0. I was not able to get a great fit because she has such a thin leg but I did tighten the straps is tight as I could get him before the buckle was hitting the fitting and there was some [place] looseness but at least it kept the knee straight. After applying the brace she complained about pressure from the pads but there was no pressure area again because the brace was still loose but functioning.] Neurologic: [] Psychiatric: [] Hematologic/lymphatic/immunologic: [] Vital Signs Vital Signs Date Time Temp Pulse Resp B/P (MAP) Pulse Ox O2 Delivery O2 Flow Rate FiO2 02/22/21 10:55 Room Air 02/22/21 07:38 37.2 71 18 152/72 (98) 95 Room Air 02/21/21 21:35 Room Air 02/21/21 19:42 35.8 65 19 141/65 (90) 95 Room Air Lab Results Laboratory Tests 02/22/21 05:46: White Blood Count 6.7, Red Blood Count 3.52L, Hemoglobin 9.6L, Hematocrit 30L, Mean Corpuscular Volume 85, Mean Corpuscular Hemoglobin 27, Mean Corpuscular Hemoglobin Concent 32, Red Cell Distribution Width 18.5H, Platelet Count 189, Mean Platelet Volume 9.3, Immature Granulocyte % (Auto) 0, Neutrophils (%) (Auto) 67, Lymphocytes (%) (Auto) 15, Monocytes (%) (Auto) 10, Eosinophils (%) (Auto) 6, Basophils (%) (Auto) 1, Neutrophils # (Auto) 4.5, Lymphocytes # (Auto) 1.0, Monocytes # (Auto) 0.7, Eosinophils # (Auto) 0.4H, Basophils # (Auto) 0.1, Immature Granulocyte # (Auto) 0.0, Sodium Level 128L, Potassium Level 3.9, Chloride Level 99, Carbon Dioxide Level 20L, Anion Gap 9, Blood Urea Nitrogen 11, Creatinine 0.58L, Estimat Glomerular Filtration Rate 100, BUN/Creatinine Ratio 19, Glucose Level 94, Calcium Level 8.2L, Corrected Calcium 9.1, Total Bilirubin 0.8, Aspartate Amino Transf (AST/SGOT) 13, Alanine Aminotransferase (ALT/SGPT) 8, Alkaline Phosphatase 87, Total Protein 5.3L, Albumin 2.9L Assessment and Plan Assessment Doing fairly well 5 days postop Problem List Unchanged Plan Continue with walker ambulation nonweightbearing on the right. Dressing change every other day. Continue with the I ROM brace at full extension.If she does not like the I ROM brace she can go back to the knee immobilizer but we need to keep 1 or the other on her at all times. No flexion of the knee. Continue with straight leg raise and quad sets for strengthening Final Diagonsis Avulsion fracture inferior pole right patella status post reattachment of patella tendon Level of the visit: Level 3 ATIYA TIERNEY MD Feb 22, 2021 11:11
--- NOTE | 2021-02-22 13:15 | Occupational Ther Daily Note ---
OT Current Status-Daily Note Subjective Pt reports increased pain (9/10) on RLE since placement of knee immobolizer. RN aware. Appearance Pt remained supine in bed, all needs within reach, friend entering room. Mental Status/Objective Patient Orientation: Person, Place, Time, Situation ADL-Treatment Therapy Code Descriptions/Definitions Functional [place] Measure: 0=Not Assessed/NA 4=Minimal Assistance 1=Total Assistance 5=Supervision or Setup 2=Maximal Assistance 6=Modified [place] 3=Moderate Assistance 7=Complete IndependenceSCALE: Activities may be completed with or without assistive devices. 1-Wfhrskagqn-ugeijdq completes the activity by him/herself with no assistance from a helper. 5-Set-up or Clean-up Assistance-helper sets up or cleans up; patient completes activity. [place] assists only prior to or following the activity. 4-Supervision or Touching Assistance-helper provides verbal cues and/or touching/steadying and/or contact guard assistance as patient completes activity. Assistance may be provided throughout the activity or intermittently. 3-Partial/Moderate Assistance-helper does LESS THAN HALF the effort. [place] lifts, holds or supports trunk or limbs, but provides less than half the effort. 2-Substantial/Maximal Assistance-helper does MORE THAN HALF the effort. [place] lifts or holds trunk or limbs and provides more than half the effort. 5-Pasiajxil-lvzier does ALL the effort. Patient does none of the effort to complete the activity. Or, the assistance of 2 or more helpers is required for the patient to complete the activity. If activity was not attempted, code reason: 7-Patient Refused. 9-Not Applicable-not attempted and the patient did not perform the activity before the current illness, exacerbation or injury. 10-Not Attempted due to Environmental Limitations-(lack of equipment, weather restraints, etc.). 88-Not Attempted due to Medical Conditions or Safety Concerns. Other Treatment Pt participated in UE exercises with goal to promote increased strength and endurance for adls, transfers and ambulation (while maintaining NWB on LE). 2# dumbbell utilized for all exercises. 12x2 in all planes. Pt able to complete through full range, min cues for technique and control of movement. Short rest breaks needed between sets. Cues for attention back to task needed often. Education OT Patient Education: Correct positioning, Energy conservation, Exercise prog heather, Progress toward Goal/Update tx plan, Purpose of tx/functional activities, Reviewed precautions, Rehab process Teaching Recipient: Patient Teaching Methods: Demonstration, Discussion Response to Teaching: Verbalize Understanding, Return Demonstration, Reinforcement Needed OT Short Term Goals Short Term Goals Time Frame: Feb 26, 2021 Eatin Oral hygiene: 4 Toileting hygiene: 4 Shower/bathe self: 4 Upper body dressin Lower body dressin Putting on/taking off footwear: 4 OT Fci Goals Fci Goals Time Frame: Mar 12, 2021 Eating (QC): 6 Oral Hygiene (QC): 6 Toileting Hygiene (QC): 6 Shower/Bathe Self (QC): 5 Upper Body Dressing (QC): 6 Lower Body Dressing (QC): 5 On/Off Footwear (QC): 6 1=Demonstrate adherence to instructed precautions during ADL tasks. 2=Patient will verbalize/demonstrate understanding of assistive devices/modifications for ADL. 3=Patient will improve strength/tolerance for activity to enable patient to perform ADL's. OT Education/Plan Problem List/Assessment Assessment: Decreased Activ Tolerance, Decreased Safety Aware, Decreased UE Strength, Impaired Funct Balance, Impaired I ADL's, Impaired Self-Care Skills Discharge Recommendations Plan/Recommendations: Continue POC Treatment Plan/Plan of Care Treatment,Training & Education: Yes Patient would benefit from OT for education, treatment and training to promote independence in ADL's, mobility, safety and/or upper extremity function for ADL's. Plan of Care: ADL Retraining, Functional Mobility, Group Exercise/Act as Ind, UE Funct Exercise/Act Treatment Duration: Mar 12, 2021 Frequency: At least 5 of 7 days/Wk (IRF) Estimated Hrs Per Day: 1.5 hours per day Agreement: Yes Rehab Potential: Fair Time/GCodes Start Time: 11:45 Stop Time: 12:10 Total Time Billed (hr/min): 25 Billed Treatment Time 1 visit, EX Sis Diaz OT Feb 22, 2021 13:15
--- NOTE | 2021-02-22 13:34 | Physical Therapy Daily Note ---
PT Daily Note-Current Subjective Pt in bed upon arrival and agrees to tx. Pt states extreme pain in R LE, but doesn't rate out of 10. Pt states she can't amb today d/t pain Mental Status Patient Orientation: Person, Place, Situation Transfers SCALE: Activities may be completed with or without assistive devices. 1-Eehqbnyjpb-mestltf completes the activity by him/herself with no assistance from a helper. 5-Set-up or Clean-up Assistance-helper sets up or cleans up; patient completes activity. [place] assists only prior to or following the activity. 4-Supervision or Touching Assistance-helper provides verbal cues and/or touching/steadying and/or contact guard assistance as patient completes activity. Assistance may be provided throughout the activity or intermittently. 3-Partial/Moderate Assistance-helper does LESS THAN HALF the effort. [place] lifts, holds or supports trunk or limbs, but provides less than half the effort. 2-Substantial/Maximal Assistance-helper does MORE THAN HALF the effort. [place] lifts or holds trunk or limbs and provides more than half the effort. 3-Hwkesogpr-gmakkw does ALL the effort. Patient does none of the effort to complete the activity. Or, the assistance of 2 or more helpers is required for the patient to complete the activity. If activity was not attempted, code reason: 7-Patient Refused. 9-Not Applicable-not attempted and the patient did not perform the activity befo re the current illness, exacerbation or injury. 10-Not Attempted due to Environmental Limitations-(lack of equipment, weather re straints, etc.). 88-Not Attempted due to Medical Conditions or Safety Concerns. Sit to Lying (QC): 5 Lying to Sitting/Side of Bed(Q: 5 Sit to Stand (QC): 4 Weight Bearing Right Lower Extremity: Right Non Weight Bearing Wheelchair Training Does the Pt Use a Wheelchair?: Yes Wheel 50 ft with 2 turns (QC): 4 Wheel 150 ft (QC): 4 Type of Wheelchair: Manual Pt able to turn WC sharply, pulling rim back on one side and forward with the other, but only at times. When instructed to turn this way pt didn't complete. Treatments Pt supine to sit and sit to stand to TF to WC CGA. VC for WB precautions. Pt TTWB w/ R LE even w/ VC for NWB. Pt propels WC on ARU, using factory representative to grab ron bags placed throughout unit at various heights. With VC and TC pt able to find all ron bags and navigate WC in tight spaces. Pt propels WC back to room, SPT back to bed and was left with all needs met. Pt given hot pack and call light in hand. Assessment Current Status: Fair Progress Pt unmotivated to improve, limits self d/t pain . PT Short Term Goals Short Term Goals Time Frame: Mar 03, 2021 Roll Left & Right: 5 Sit to lyin Lying to sitting on side of be: 5 Sit to stand: 5 Chair/gcd-rw-idfsm transfer: 5 Toilet transfer: 5 Car transfer: 5 Walk 10 feet: 5 Walk 50 feet with two turns: 5 Walk 150 feet: 4 Does pt use a wc or scooter: No Wheel 50ft w/2 turns: 6 Wheel 150 feet: 5 Type: Manual PT Shelter Goals Caul Puller Goals PT Shelter Goals Time Frame: Mar 23, 2021 Roll Left & Right (QC): 6 Sit to Lying (QC): 6 Lying-Sitting on Side/Bed(QC): 6 Sit to Stand (QC): 6 Chair/Xnu-rk-Cibkj Xfer(QC): 6 Toilet Transfer (QC): 6 Car Transfer (QC): 6 Does the Patient Walk: Yes Walk 10 feet (QC): 6 Walk 50ft with 2 Turns (QC): 6 Walk 150 ft (QC): 5 Walking 10ft on Uneven Surface: 4 1 Step (curb) (QC): 4 4 Steps (QC): 4 12 Steps (QC): 4 Picking up an Object (QC): 6 Does the Pt use WC or Scooter?: Yes Wheel 50 feet with 2 turns (QC: 6 Wheel 150 feet: 6 Type: Manual PT Plan Treatment/Plan Treatment Plan: Continue Plan of Care Treatment Plan: Bed Mobility, Education, Functional Activity [place], Functional Strength, Group Therapy, Gait, Safety, Therapeutic Exercise, Transfers Treatment Duration: Apr 21, 2021 Frequency: At least 5 of 7 days/Wk (IRF) Estimated Hrs Per Day: 1.5 hours per day Patient and/or Family Agrees t: Yes Time/GCodes Time In: 1300 Time Out: 1330 Total Billed Treatment Time: 30 Total Billed Treatment [place], DONTA, JOSE G PLATA PTA Feb 22, 2021 13:34
[2021-02-22] MEDS: ACETAMINOPHEN 500 MG TAB (TYLENOL) PO PRN (14:43)
--- NOTE | 2021-02-22 15:49 | Progress Note ---
ADRIANA GONZÁLES STUDENT 02/22/21 1549: Progress Note Assessment: Erica presents to IRF s/p R patellar fx repair with resulting impaired mobility. Age and multiple comorbid conditions including CHF, CAD, anemia, HTN, and malnutrition contribute to a slow recovery from the procedure. OT: Demonstrates minimal assistance required for ADL tasks. Fair progress with fair prognosis. PT: Utilizes wheelchair. Pt able to transfer well with minimal assistance. NWB RLE. Able to use manual wheelchair proficiently with some limitations due to pain. Fair progress with fair prognosis. Plan: Review on 02/24. Discharge to home when able with home health care. AIYANA COSTA DO 02/23/21 0502: Supervisory-Addendum Brief Verification & Attestation Participated in pt care: history, MDM, physical Personally performed: exam, history, MDM, supervision of care Care discussed with: Medical Student Procedures: n/a Results interpretation: Verified all documentation Verification and Attestation of Medical Student E/M Service A medical student performed and documented this service in my presence. I reviewed and verified all information documented by the medical student and made modifications to such information, when appropriate. I personally performed the physical exam and medical decision making. Aiyana Costa, Feb 23, 2021,05:02 ADRIANA GONZÁLES MED STUDENT Feb 22, 2021 15:49 AIYANA COSTA DO Feb 23, 2021 05:02
[2021-02-22 20:00] VITALS: BP 149/72
[2021-02-23] MEDS: KCL 20 MEQ TAB (K-DUR) PO SCH (06:46)
[2021-02-23] MEDS: PANTOPRAZOLE 40 MG (PROTONIX) TAB PO SCH ×2 (06:46→16:51)
[2021-02-23] MEDS: SODIUM CHLORIDE 1 GM TABLET PO SCH ×2 (07:43→21:10)
[2021-02-23] MEDS: ASPIRIN E.C. 81 MG (ECOTRIN) TAB PO SCH (07:44)
[2021-02-23] MEDS: DOCUSATE SODIUM 100 MG (COLACE) CAP PO SCH ×2 (07:44→21:16)
[2021-02-23] MEDS: PARoxetine 10 MG (PAXIL) TAB PO SCH (07:44)
[2021-02-23] MEDS: SENNA W/DOCUSATE (SENOKOT S) TABLET PO SCH ×2 (07:44→21:16)
[2021-02-23] MEDS: CLOPIDOGREL 75 MG (PLAVIX) TABLET PO SCH (07:44)
[2021-02-23 07:53] VITALS: BP 144/65
[2021-02-23] MEDS: polyethylene glycoL POWDER 17 GM (MIRALAX) PACK PO SCH ×2 (09:06→21:16)
--- NOTE | 2021-02-23 09:09 | PM&R Progress Note ---
Subjective HPI/CC On Admission Date Seen by Provider: Feb 23, 2021 Time Seen by Provider: 09:15 Subjective/Events-last exam 02/23/2021: Patient now wearing her old brace Much improved status Feels much better In less distress today Decreasing pain 02/22/2021: Dr. Hendricks changed her immobilizer and she thinks it is worse This all she talks about is the immobilizer We will try to make it more comfortable for her Very frail status Fluid restriction along with salt tablets ordered 02/21/2021: Patient doing well Her birthday is today Check labs in the morning Pain is well controlled Complains about immobilizer 02/20/2021: Patient doing well Does not really want to be here but she says she has no choice Does not want iron infusions due to perceived side effects so we will discontinue Labs remained stable Bowels moved last night Family member at the bedside Constantly complaining of right leg immobilizer 02/19/2021: Patient doing well Family visiting Pain is pretty well controlled Hemoglobin stable Adding potassium due to hypokalemia Check meds and labs Participating in therapy Review of Systems Musculoskeletal: leg pain Objective Exam Vital Signs Vital Signs Date Time Temp Pulse Resp B/P (MAP) Pulse Ox O2 Delivery O2 Flow Rate FiO2 02/23/21 21:40 36.5 02/23/21 21:00 Room Air 02/23/21 20:00 70 20 169/75 (106) 98 Capillary Refill : General Appearance: No Apparent Distress, WD/WN, Chronically ill, Thin HEENT: PERRL/EOMI, Normal ENT Inspection, Pharynx Normal Neck: Full Range of Motion, Normal Inspection, Non Tender, Supple, Carotid Bruit Respiratory: Chest Non Tender, Lungs Clear, Normal Breath Sounds, No Accessory Muscle Use, No Respiratory Distress Cardiovascular: Regular Rate, Rhythm, No Edema, No Gallop, No JVD, No Murmur, Normal Peripheral Pulses Gastrointestinal: Normal Bowel Sounds, No Organomegaly, No Pulsatile Mass, Non Tender, Soft Back: Normal Inspection, No CVA Tenderness, No Vertebral Tenderness Extremity: Normal Capillary Refill, Normal Inspection, Normal Range of Motion (Right leg in immobilizer), Non Tender, No Calf Tenderness, No Pedal Edema Neurologic/Psychiatric: Alert, Oriented x3, No Motor/Sensory Deficits, Normal Mood/Affect, supervisor microbiology technologists II-XII Norm as Tested, Abnormal Gait, Motor Weakness (Right leg) Skin: Normal Color, Warm/Dry Lymphatic: No Adenopathy Results/Procedures Lab Patient resulted labs reviewed. FIM Transfers Therapy Code Descriptions/Definitions Functional [place] Measure: 0=Not Assessed/NA 4=Minimal Assistance 1=Total Assistance 5=Supervision or Setup 2=Maximal Assistance 6=Modified [place] 3=Moderate Assistance 7=Complete IndependenceSCALE: Activities may be completed with or without assistive devices. 5-Upaefipotn-yvapkqy completes the activity by him/herself with no assistance from a helper. 5-Set-up or Clean-up Assistance-helper sets up or cleans up; patient completes activity. [place] assists only prior to or following the activity. 4-Supervision or Touching Assistance-helper provides verbal cues and/or touching/steadying and/or contact guard assistance as patient completes activity. Assistance may be provided throughout the activity or intermittently. 3-Partial/Moderate Assistance-helper does LESS THAN HALF the effort. [place] lifts, holds or supports trunk or limbs, but provides less than half the effort. 2-Substantial/Maximal Assistance-helper does MORE THAN HALF the effort. [place] lifts or holds trunk or limbs and provides more than half the effort. 3-Evpcddxsi-bpjrrk does ALL the effort. Patient does none of the effort to complete the activity. Or, the assistance of 2 or more helpers is required for the patient to complete the activity. If activity was not attempted, code reason: 7-Patient Refused. 9-Not Applicable-not attempted and the patient did not perform the activity before the current illness, exacerbation or injury. 10-Not Attempted due to Environmental Limitations-(lack of equipment, weather restraints, etc.). 88-Not Attempted due to Medical Conditions or Safety Concerns. Roll Left to Right (QC): 5 Sit to Lying (QC): 5 Sit to Stand (QC): 4 Chair/Svm-qg-Sycjs Xfer(QC): 4 Car Transfer (QC): 3 Gait Training Does the Patient Walk?: Yes Distance: 17' Walk 10 feet (QC): 4 Walk 50 ft with 2 Turns(QC): 88 Walk 150 ft (QC): 88 Walking 10ft/uneven surface-QC: 88 Gait Persons Needed: 1 Gait Assistive Device: FWW Wheelchair Training Does the Pt Use a Wheelchair?: Yes Distance: 30 Wheel 50 ft with 2 turns (QC): 4 Wheel 150 ft (QC): 4 Type of Wheelchair: Manual Stair Training #of Steps: 0 1 Step (curb) (QC): 88 4 Steps (QC): 88 12 Steps (QC): 88 Balance Picking up an Object (QC): 3 ADL-Treatment Eating (QC): 5 (Per clinical judgement) Oral Hygiene (QC): 6 Shower/Bathe Self (QC): 3 Upper Body Dressing (QC): 5 Lower Body Dressing (QC): 3 On/Off Footwear (QC): 3 Toileting Hygiene (QC): 3 Toilet Transfer (QC): 3 Assessment/Plan Assessment and Plan Assess & Plan/Chief Complaint Assessment: Status post right patellar fracture now in immobilizer status post uncomplicated repair Acute blood loss anemia requiring transfusion Recent GI bleed requiring transfusion Iron deficiency on iron infusions CAD recent stent Depression Constipation laxatives ordered [place]clure cath in place now discontinued Hyponatremia requiring fluid restriction along with salt tablets on 02/22/2021 Plan: Transfuse as necessary Supportive care Inpatient rehab protocol Regain independence Immobilizer 02/19/2021: Supportive care Aggressive therapy Add potassium 02/20/2021: Maintain pain control Bowel regimen 02/21/2021: Continue pain control Monitor hemoglobin Refuses iron infusion 02/22/2021: Immobilizer management Supportive care Fluid restriction 02/23/2021: Dramatic improvement in pain with old brace Check meds and labs (1) Right patella fracture Status: Acute (2) CAD (coronary artery disease) (3) Stented coronary artery (4) History of GI bleed (5) Transfusion of blood during current hospitalisation (6) Low BMI (7) Risk for falls (8) Depression (9) Constipation (10) Severe anemia Status: Acute CASIE COSTA DO Feb 23, 2021 09:09
--- NOTE | 2021-02-23 10:48 | Physical Therapy Daily Note ---
PT Daily Note-Current Subjective Pt in bed upon arrival and agrees to tx. Prior to tx, pt states little pain, but doesn't rate out of 10. Post amb, pt states "I can't stand to do this anymore. I am in too much pain to walk and I can't sit in this chair. I need to go back." Pt states "the brace is cutting into my leg. It hurts so bad I can't even move." PT placed wash cloth between knee immobilizer and pt leg, pt states it helped with pain but still refused to do OOB activity. Mental Status Patient Orientation: Person, Place, Time Transfers SCALE: Activities may be completed with or without assistive devices. 8-Yfrcctehil-ozqkopy completes the activity by him/herself with no assistance from a helper. 5-Set-up or Clean-up Assistance-helper sets up or cleans up; patient completes activity. [place] assists only prior to or following the activity. 4-Supervision or Touching Assistance-helper provides verbal cues and/or touching/steadying and/or contact guard assistance as patient completes activity. Assistance may be provided throughout the activity or intermittently. 3-Partial/Moderate Assistance-helper does LESS THAN HALF the effort. [place] lifts, holds or supports trunk or limbs, but provides less than half the effort. 2-Substantial/Maximal Assistance-helper does MORE THAN HALF the effort. [place] lifts or holds trunk or limbs and provides more than half the effort. 1-Vnaknnwmh-vbrakm does ALL the effort. Patient does none of the effort to complete the activity. Or, the assistance of 2 or more helpers is required for the patient to complete the activity. If activity was not attempted, code reason: 7-Patient Refused. 9-Not Applicable-not attempted and the patient did not perform the activity before the current illness, exacerbation or injury. 10-Not Attempted due to Environmental Limitations-(lack of equipment, weather restraints, etc.). 88-Not Attempted due to Medical Conditions or Safety Concerns. Roll Left & Right (QC): 6 Sit to Lying (QC): 6 Lying to Sitting/Side of Bed(Q: 6 Sit to Stand (QC): 5 Chair/Xob-ma-Vftvt Xfer(QC): 4 Toilet Transfer (QC): 4 Weight Bearing Right Lower Extremity: Right Non Weight Bearing Gait Training Does the Patient Walk?: Yes Distance: 15' x2 Walk 10 feet (QC): 4 Gait Persons Needed: 1 Gait Assistive Device: FWW Pt able to amb 15', when fatigued pt has tendency to TTWB on R LE. When instructed to not put weight through R LE pt states "Yes I know I'm not supposed to" then continued to TTWB. Pt has slow amb, requires frequent rest breaks Exercises Supine Ex: Bridging, Ankle pumps, Quad Set, Rolling, Glut sets, Heel Slides, Short Arc Quads, Scooting, Straight leg raise, Hip abd/add Supine Reps: 10 Treatments Pt sits EOB and SPT to BSC. Pt able to doff/don pants and clean self SBA. Pt amb 15' to doorway in room, then has seated rest break. Pt amb another 15' on ARU, then suddenly sits in WC. At this time pt states she can't do any more amb or WC mob. Pt returns to bed in room and completes bed mobility, able to scoot to HOB SBA. Pt completes supine ex, only SLR, hip abd/add, and ankle pumps on R LE. Pt remains in bed with all needs met, call light in hand. Assessment Current Status: Poor Progress Pt refuses to improve amb or WC mobility during this tx d/t pain from knee immobilizer. Pt has poor motivation, says she will have help at home. Encouragement required for pt to participate in therapeutic activities during this tx. PT Short Term Goals Short Term Goals Time Frame: Mar 03, 2021 Roll Left & Right: 5 Sit to lyin Lying to sitting on side of be: 5 Sit to stand: 5 Chair/kxm-vp-faovs transfer: 5 Toilet transfer: 5 Car transfer: 5 Walk 10 feet: 5 Walk 50 feet with two turns: 5 Walk 150 feet: 4 Does pt use a wc or scooter: No Wheel 50ft w/2 turns: 6 Wheel 150 feet: 5 Type: Manual PT Energy Sales Broker Goals Energy Sales Broker Goals PT Mcfp Goals Time Frame: Mar 23, 2021 Roll Left & Right (QC): 6 Sit to Lying (QC): 6 Lying-Sitting on Side/Bed(QC): 6 Sit to Stand (QC): 6 Chair/Ryg-ch-Wzkci Xfer(QC): 6 Toilet Transfer (QC): 6 Car Transfer (QC): 6 Does the Patient Walk: Yes Walk 10 feet (QC): 6 Walk 50ft with 2 Turns (QC): 6 Walk 150 ft (QC): 5 Walking 10ft on Uneven Surface: 4 1 Step (curb) (QC): 4 4 Steps (QC): 4 12 Steps (QC): 4 Picking up an Object (QC): 6 Does the Pt use WC or Scooter?: Yes Wheel 50 feet with 2 turns (QC: 6 Wheel 150 feet: 6 Type: Manual PT Plan Problem List Problem List: Activity Tolerance, Functional Strength, Safety, Balance, Gait Treatment/Plan Treatment Plan: Continue Plan of Care Treatment Plan: Bed Mobility, Education, Functional Activity [place], Functional Strength, Group Therapy, Gait, Safety, Therapeutic Exercise, Transfers Treatment Duration: Apr 21, 2021 Frequency: At least 5 of 7 days/Wk (IRF) Estimated Hrs Per Day: 1.5 hours per day Patient and/or Family Agrees t: Yes Safety Risks/Education Patient Education: Gait Training, Transfer Techniques Teaching Recipient: Patient Teaching Methods: Demonstration, Discussion Response to Teaching: Verbalize Understanding, Reinforcement Needed Time/GCodes Time In: 1000 Time Out: 1100 Total Billed Treatment Time: 60 Total Billed Treatment 1, GT, EX, FA JOSE G Hopkins ENGINE MECHANIC Feb 23, 2021 10:48
--- NOTE | 2021-02-23 13:27 | Occupational Ther Daily Note ---
OT Current Status-Daily Note Subjective Pt reports pain in RLE, she reports changing immobolizer back to original. Appearance Pt left supine in bed, all needs within reach at end of treatment. Mental Status/Objective Patient Orientation: Person, Place, Time, Situation Attachments: IV ADL-Treatment Therapy Code Descriptions/Definitions Functional [place] Measure: 0=Not Assessed/NA 4=Minimal Assistance 1=Total Assistance 5=Supervision or Setup 2=Maximal Assistance 6=Modified [place] 3=Moderate Assistance 7=Complete IndependenceSCALE: Activities may be completed with or without assistive devices. 1-Nrhiccslyz-duswbjj completes the activity by him/herself with no assistance from a helper. 5-Set-up or Clean-up Assistance-helper sets up or cleans up; patient completes activity. [place] assists only prior to or following the activity. 4-Supervision or Touching Assistance-helper provides verbal cues and/or to uching/steadying and/or contact guard assistance as patient completes activity. Assistance may be provided throughout the activity or intermittently. 3-Partial/Moderate Assistance-helper does LESS THAN HALF the effort. [place] lifts, holds or supports trunk or limbs, but provides less than half the effort. 2-Substantial/Maximal Assistance-helper does MORE THAN HALF the effort. [place] lifts or holds trunk or limbs and provides more than half the effort. 0-Mjbpqxsgh-rcrscg does ALL the effort. Patient does none of the effort to complete the activity. Or, the assistance of 2 or more helpers is required for the patient to complete the activity. If activity was not attempted, code reason: 7-Patient Refused. 9-Not Applicable-not attempted and the patient did not perform the activity before the current illness, exacerbation or injury. 10-Not Attempted due to Environmental Limitations-(lack of equipment, weather restraints, etc.). 88-Not Attempted due to Medical Conditions or Safety Concerns. Oral Hygiene (QC): 5 Upper Body Dressing (QC): 5 Toileting Hygiene (QC): 3 Toilet Transfer (QC): 4 Pt sitting on commode at therapy arrival. Sit<>stand: SBA. Mod cues needed for adherence to NWB while standing for clothing management. Pt follows commands ~50% of the time. Pt reports new increased urgency to void and during that time she also experiences numbness and tingling sensations in her hands and feet. No c/o burning while voiding. She hopped to/from bathroom with CGA, initially good adherence to NWB. As distance increases, pt appears to bear weight on RLE. Education on resting if needed. Grooming activities performed at w/c level with set up only. Other Treatment Pt propelled w/c to/from therapy gym with SBA. Once in gym, she participated in dynamic standing activity. Goal to increase standing tolerance, adherence to NWB RLE, functional reach, and balance in order to complete simple IADLs/ADLs. OT demonstrated correct use of plan manager to gather things from low height as pt will be unable to bend R knee at this time. She hopped around gym with use of walker and cga. As fatigue worsens, increased cues needed to maintain precautions. Re- education on resting vs bearing weight in order to finish task. Pt only able to tolerate short distances, ~15 feet before needing to rest. Min cues for walker placement and safety with reaching too far out of LUBNA. Education OT Patient Education: Correct positioning, Energy conservation, Modified ADL techniques, Progress toward Goal/Update tx plan, Purpose of tx/functional activities, Reviewed precautions, Rehab process, Safety issues, Transfer techniques, Use of adapted equipment, W/C management Teaching Recipient: Patient Teaching Methods: Demonstration, Discussion Response to Teaching: Verbalize Understanding, Return Demonstration, Reinforcement Needed OT Short Term Goals Short Term Goals Time Frame: Feb 26, 2021 Eatin Oral hygiene: 4 Toileting hygiene: 4 Shower/bathe self: 4 Upper body dressin Lower body dressin Putting on/taking off footwear: 4 OT Tooth Cutter [place]ur Goals Tooth Cutter [place]ur Goals Time Frame: Mar 12, 2021 Eating (QC): 6 Oral Hygiene (QC): 6 Toileting Hygiene (QC): 6 Shower/Bathe Self (QC): 5 Upper Body Dressing (QC): 6 Lower Body Dressing (QC): 5 On/Off Footwear (QC): 6 1=Demonstrate adherence to instructed precautions during ADL tasks. 2=Patient will verbalize/demonstrate understanding of assistive devices/modifications for ADL. 3=Patient will improve strength/tolerance for activity to enable patient to perform ADL's. OT Education/Plan Problem List/Assessment Assessment: Decreased Activ Tolerance, Decreased Safety Aware, Decreased UE Strength, Impaired Funct Balance, Impaired I ADL's, Impaired Self-Care Skills Discharge Recommendations Plan/Recommendations: Continue POC Equpiment Recommendations-D/C: Reproduction Artist Treatment Plan/Plan of Care Treatment,Training & Education: Yes Patient would benefit from OT for education, treatment and training to promote independence in ADL's, mobility, safety and/or upper extremity function for ADL's. Plan of Care: ADL Retraining, Functional Mobility, Group Exercise/Act as Ind, UE Funct Exercise/Act Treatment Duration: Mar 12, 2021 Frequency: At least 5 of 7 days/Wk (IRF) Estimated Hrs Per Day: 1.5 hours per day Agreement: Yes Rehab Potential: Fair Time/GCodes Start Time: 08:15 Stop Time: 09:00 Total Time Billed (hr/min): 45 Billed Treatment Time 1 visit ADL (20 min) FA x2 (25 min) Sis Bragg OT Feb 23, 2021 13:27
--- NOTE | 2021-02-23 13:29 | Physical Therapy Daily Note ---
PT Daily Note-Current Subjective Pt in bed upon arrival and agrees to tx. Pt states she is in too much pain to do OOB activity. RN notified and administers pain medication during tx. Mental Status Patient Orientation: Person, Place, Time, Situation Transfers SCALE: Activities may be completed with or without assistive devices. 6-Mlcxpxnpza-vgtctdi completes the activity by him/herself with no assistance from a helper. 5-Set-up or Clean-up Assistance-helper sets up or cleans up; patient completes activity. [place] assists only prior to or following the activity. 4-Supervision or Touching Assistance-helper provides verbal cues and/or touching/steadying and/or contact guard assistance as patient completes activity. Assistance may be provided throughout the activity or intermittently. 3-Partial/Moderate Assistance-helper does LESS THAN HALF the effort. [place] lifts, holds or supports trunk or limbs, but provides less than half the effort. 2-Substantial/Maximal Assistance-helper does MORE THAN HALF the effort. [place] lifts or holds trunk or limbs and provides more than half the effort. 2-Pktelybte-weisaj does ALL the effort. Patient does none of the effort to complete the activity. Or, the assistance of 2 or more helpers is required for the patient to complete the activity. If activity was not attempted, code reason: 7-Patient Refused. 9-Not Applicable-not attempted and the patient did not perform the activity before the current illness, exacerbation or injury. 10-Not Attempted due to Environmental Limitations-(lack of equipment, weather restraints, etc.). 88-Not Attempted due to Medical Conditions or Safety Concerns. Roll Left & Right (QC): 6 Sit to Lying (QC): 6 Lying to Sitting/Side of Bed(Q: 6 Sit to Stand (QC): 5 Weight Bearing Right Lower Extremity: Right Non Weight Bearing Treatments Pt completes bed mobility and sits EOB. Pt completes static seated balance activity, unsupported from B UE and no back support. Pt able to hold seated balance 10 minutes. Pt then request to use BSC. Pt SPT CGA to BSC, requiring A to doff pants, but pt able to don pants and clean self CGA. Pt SPT back to bed, pt remains in bed with all needs met and call light in hand. Assessment Current Status: Fair Progress Pt limited by pain PT Short Term Goals Short Term Goals Time Frame: Mar 03, 2021 Roll Left & Right: 5 Sit to lyin Lying to sitting on side of be: 5 Sit to stand: 5 Chair/lkj-dq-pckqc transfer: 5 Toilet transfer: 5 Car transfer: 5 Walk 10 feet: 5 Walk 50 feet with two turns: 5 Walk 150 feet: 4 Does pt use a wc or scooter: No Wheel 50ft w/2 turns: 6 Wheel 150 feet: 5 Type: Manual PT Fdc Goals Fdc Goals PT Director Of Radio Services Goals Time Frame: Mar 23, 2021 Roll Left & Right (QC): 6 Sit to Lying (QC): 6 Lying-Sitting on Side/Bed(QC): 6 Sit to Stand (QC): 6 Chair/Zut-ib-Ykpxt Xfer(QC): 6 Toilet Transfer (QC): 6 Car Transfer (QC): 6 Does the Patient Walk: Yes Walk 10 feet (QC): 6 Walk 50ft with 2 Turns (QC): 6 Walk 150 ft (QC): 5 Walking 10ft on Uneven Surface: 4 1 Step (curb) (QC): 4 4 Steps (QC): 4 12 Steps (QC): 4 Picking up an Object (QC): 6 Does the Pt use WC or Scooter?: Yes Wheel 50 feet with 2 turns (QC: 6 Wheel 150 feet: 6 Type: Manual PT Plan Treatment/Plan Treatment Plan: Continue Plan of Care Treatment Plan: Bed Mobility, Education, Functional Activity [place], Functional Strength, Group Therapy, Gait, Safety, Therapeutic Exercise, Transfers Treatment Duration: Apr 21, 2021 Frequency: At least 5 of 7 days/Wk (IRF) Estimated Hrs Per Day: 1.5 hours per day Patient and/or Family Agrees t: Yes Time/GCodes Time In: 1300 Time Out: 1330 Total Billed Treatment Time: 30 Total Billed Treatment 1, FA x2 JOSE G ONEILL DIRECTOR C[facility] Feb 23, 2021 13:29
--- NOTE | 2021-02-23 13:36 | Occupational Ther Daily Note ---
OT Current Status-Daily Note Subjective Pt agreeable to treatment. Reports urgency to void. Appearance Left supine in bed, all needs within reach. ADL-Treatment Therapy Code Descriptions/Definitions Functional [place] Measure: 0=Not Assessed/NA 4=Minimal Assistance 1=Total Assistance 5=Supervision or Setup 2=Maximal Assistance 6=Modified [place] 3=Moderate Assistance 7=Complete IndependenceSCALE: Activities may be completed with or without assistive devices. 9-Unuqvcznby-syfnwnm completes the activity by him/herself with no assistance from a helper. 5-Set-up or Clean-up Assistance-helper sets up or cleans up; patient completes activity. [place] assists only prior to or following the activity. 4-Supervision or Touching Assistance-helper provides verbal cues and/or touching/steadying and/or contact guard assistance as patient completes activity. Assistance may be provided throughout the activity or intermittently. 3-Partial/Moderate Assistance-helper does LESS THAN HALF the effort. [place] lifts, holds or supports trunk or limbs, but provides less than half the effort. 2-Substantial/Maximal Assistance-helper does MORE THAN HALF the effort. [place] lifts or holds trunk or limbs and provides more than half the effort. 5-Fosiegqqh-vyxrss does ALL the effort. Patient does none of the effort to complete the activity. Or, the assistance of 2 or more helpers is required for the patient to complete the activity. If activity was not attempted, code reason: 7-Patient Refused. 9-Not Applicable-not attempted and the patient did not perform the activity before the current illness, exacerbation or injury. 10-Not Attempted due to Environmental Limitations-(lack of equipment, weather restraints, etc.). 88-Not Attempted due to Medical Conditions or Safety Concerns. Toileting Hygiene (QC): 3 Toilet Transfer (QC): 4 At therapy arrival, pt reports urgency to use toilet. Again, she reports numbness in fingertips but states that it only lasts for short time. [facility] OT discussed time voiding and proper positioning to eliminate bladder fully. She continues to require cues for adherence to NWB during clothing management. Other Treatment OT issued and instructed pt on UE exercises with yellow theraband with goal to increase strength and endurance needed for adls and transfers. 10x2 in all planes. Min visual/tactile cues for correct form with theraband. Pt able to complete all movements through full range, short rest breaks needed between sets. Education OT Patient Education: Exercise program, Modified ADL techniques, Progress toward Goal/Update tx plan, Purpose of tx/functional activities, Reviewed precautions, Rehab process, Safety issues, Transfer techniques Teaching Recipient: Patient Teaching Methods: Demonstration, Discussion Response to Teaching: Verbalize Understanding, Return Demonstration, Reinforcement Needed OT Short Term Goals Short Term Goals Time Frame: Feb 26, 2021 Eatin Oral hygiene: 4 Toileting hygiene: 4 Shower/bathe self: 4 Upper body dressin Lower body dressin Putting on/taking off footwear: 4 OT Fpc Goals Fpc Goals Time Frame: Mar 12, 2021 Eating (QC): 6 Oral Hygiene (QC): 6 Toileting Hygiene (QC): 6 Shower/Bathe Self (QC): 5 Upper Body Dressing (QC): 6 Lower Body Dressing (QC): 5 On/Off Footwear (QC): 6 1=Demonstrate adherence to instructed precautions during ADL tasks. 2=Patient will verbalize/demonstrate understanding of assistive devices/modifications for ADL. 3=Patient will improve strength/tolerance for activity to enable patient to perform ADL's. OT Education/Plan Problem List/Assessment Assessment: Decreased Activ Tolerance, Decreased Safety Aware, Decreased UE Strength, Impaired Funct Balance, Impaired I ADL's, Impaired Self-Care Skills Discharge Recommendations Plan/Recommendations: Continue POC Treatment Plan/Plan of Care Treatment,Training & Education: Yes Patient would benefit from OT for education, treatment and training to promote independence in ADL's, mobility, safety and/or upper extremity function for ADL's. Plan of Care: ADL Retraining, Functional Mobility, Group Exercise/Act as Ind, UE Funct Exercise/Act Treatment Duration: Mar 12, 2021 Frequency: At least 5 of 7 days/Wk (IRF) Estimated Hrs Per Day: 1.5 hours per day Agreement: Yes Rehab Potential: Fair Time/GCodes Start Time: 11:00 Stop Time: 11:45 Total Time Billed (hr/min): 45 Billed Treatment Time 1 visit ADL (10 min) EXx2 (35 min) Sis Bragg OT Feb 23, 2021 13:36
--- NOTE | 2021-02-23 13:58 | Physical Therapy Daily Note ---
PT Daily Note-Current Subjective Pt in recliner w/ daughter in room upon arrival and agrees to tx Mental Status Patient Orientation: Person, Place, Time, Situation Transfers SCALE: Activities may be completed with or without assistive devices. 1-Huliralmls-bkcgduk completes the activity by him/herself with no assistance from a helper. 5-Set-up or Clean-up Assistance-helper sets up or cleans up; patient completes activity. [place] assists only prior to or following the activity. 4-Supervision or Touching Assistance-helper provides verbal cues and/or touching/steadying and/or contact guard assistance as patient completes activity. Assistance may be provided throughout the activity or intermittently. 3-Partial/Moderate Assistance-helper does LESS THAN HALF the effort. [place] lifts, holds or supports trunk or limbs, but provides less than half the effort. 2-Substantial/Maximal Assistance-helper does MORE THAN HALF the effort. [place] lifts or holds trunk or limbs and provides more than half the effort. 1-Nxzjktqlo-gntfkt does ALL the effort. Patient does none of the effort to complete the activity. Or, the assistance of 2 or more helpers is required for the patient to complete the activity. If activity was not attempted, code reason: 7-Patient Refused. 9-Not Applicable-not attempted and the patient did not perform the activity before the current illness, exacerbation or injury. 10-Not Attempted due to Environmental Limitations-(lack of equipment, weather restraints, etc.). 88-Not Attempted due to Medical Conditions or Safety Concerns. Sit to Stand (QC): 3 Weight Bearing Right Lower Extremity: Right Non Weight Bearing Gait Training Does the Patient Walk?: Yes Distance: 50' x2 Walk 10 feet (QC): 3 Walk 50 ft with 2 Turns(QC): 3 Gait Assistive Device: FWW Pt has forward flexed posture, pushes FWW too far in front of himself, and tends to drag R LE. With VC pt will correct temporarily, but begins to do all with fatigue Treatments Pt sit to stand from recliner and enters bathroom. Pt requires A to doff/don pants, clean self, and change brief. Pt then amb 50' x2 on ARU and returns to recliner. Pt remains in recliner w/ daughter in room with all needs met and call light in hand. Assessment Current Status: Fair Progress Pt has low activity tolerance, requiring frequent rest breaks throughout tx. PT Short Term Goals Short Term Goals Time Frame: Mar 03, 2021 Roll Left & Right: 5 Sit to lyin Lying to sitting on side of be: 5 Sit to stand: 5 Chair/hzi-jk-rikql transfer: 5 Toilet transfer: 5 Car transfer: 5 Walk 10 feet: 5 Walk 50 feet with two turns: 5 Walk 150 feet: 4 Does pt use a wc or scooter: No Wheel 50ft w/2 turns: 6 Wheel 150 feet: 5 Type: Manual PT Director Of Graduate Admissions Goals Sn[facility] Goals PT Director Of Graduate Admissions Goals Time Frame: Mar 23, 2021 Roll Left & Right (QC): 6 Sit to Lying (QC): 6 Lying-Sitting on Side/Bed(QC): 6 Sit to Stand (QC): 6 Chair/Ndj-ug-Ilsbd Xfer(QC): 6 Toilet Transfer (QC): 6 Car Transfer (QC): 6 Does the Patient Walk: Yes Walk 10 feet (QC): 6 Walk 50ft with 2 Turns (QC): 6 Walk 150 ft (QC): 5 Walking 10ft on Uneven Surface: 4 1 Step (curb) (QC): 4 4 Steps (QC): 4 12 Steps (QC): 4 Picking up an Object (QC): 6 Does the Pt use WC or Scooter?: Yes Wheel 50 feet with 2 turns (QC: 6 Wheel 150 feet: 6 Type: Manual PT Plan Treatment/Plan Treatment Plan: Continue Plan of Care Treatment Plan: Bed Mobility, Education, Functional Activity [place], Functional Strength, Group Therapy, Gait, Safety, Therapeutic Exercise, Transfers Treatment Duration: Apr 21, 2021 Frequency: At least 5 of 7 days/Wk (IRF) Estimated Hrs Per Day: 1.5 hours per day Patient and/or Family Agrees t: Yes Time/GCodes Time In: 1330 Time Out: 1400 Total Billed Treatment Time: 30 Total Billed Treatment 1, FA, JOSE G BERNARDO EXTRUSION UTILITY WORKER Feb 23, 2021 13:58
[2021-02-23] MEDS ORDERED: BALANCE OF NATURE PO (15:55)
[2021-02-23] MEDS ORDERED: ASPI-1238 PO (15:55)
[2021-02-23] MEDS ORDERED: PANT20TA18 PO (15:55)
[2021-02-23 20:00] VITALS: BP 169/75
[2021-02-24] MEDS: PANTOPRAZOLE 40 MG (PROTONIX) TAB PO SCH ×2 (06:55→15:38)
[2021-02-24] MEDS: KCL 20 MEQ TAB (K-DUR) PO SCH (06:55)
--- NOTE | 2021-02-24 07:09 | PM&R Progress Note ---
Subjective HPI/CC On Admission Date Seen by Provider: Feb 24, 2021 Time Seen by Provider: 11:15 Subjective/Events-last exam 02/24/2021: Pt having a nosebleed Contacted PCP: Dr. Mccormick Overall doing well otherwise Pain is still an issues Will hire private caregivers in order to go home Aspirin and Plavix will be maintained until decides to change Urinary issues reported PCP will address 02/23/2021: Patient now wearing her old brace Much improved status Feels much better In less distress today Decreasing pain 02/22/2021: Dr. Hendricks changed her immobilizer and she thinks it is worse This all she talks about is the immobilizer We will try to make it more comfortable for her Very frail status Fluid restriction along with salt tablets ordered 02/21/2021: Patient doing well Her birthday is today Check labs in the morning Pain is well controlled Complains about immobilizer 02/20/2021: Patient doing well Does not really want to be here but she says she has no choice Does not want iron infusions due to perceived side effects so we will disco ntinue Labs remained stable Bowels moved last night Family member at the bedside Constantly complaining of right leg immobilizer 02/19/2021: Patient doing well Family visiting Pain is pretty well controlled Hemoglobin stable Adding potassium due to hypokalemia Check meds and labs Participating in therapy Review of Systems General: Fatigue, Malaise HEENT: Other (Nosebleed) Musculoskeletal: leg pain Objective Exam Vital Signs Vital Signs Date Time Temp Pulse Resp B/P (MAP) Pulse Ox O2 Delivery O2 Flow Rate FiO2 02/24/21 21:00 Room Air 02/24/21 20:00 37.0 63 18 154/70 (98) 95 Capillary Refill : General Appearance: No Apparent Distress, WD/WN, Chronically ill, Thin HEENT: PERRL/EOMI, Normal ENT Inspection, Pharynx Normal Neck: Full Range of Motion, Normal Inspection, Non Tender, Supple, Carotid Bruit Respiratory: Chest Non Tender, Lungs Clear, Normal Breath Sounds, No Accessory Muscle Use, No Respiratory Distress Cardiovascular: Regular Rate, Rhythm, No Edema, No Gallop, No JVD, No Murmur, Normal Peripheral Pulses Gastrointestinal: Normal Bowel Sounds, No Organomegaly, No Pulsatile Mass, Non Tender, Soft Back: Normal Inspection, No CVA Tenderness, No Vertebral Tenderness Extremity: Normal Capillary Refill, Normal Inspection, Normal Range of Motion (Right leg in immobilizer), Non Tender, No Calf Tenderness, No Pedal Edema Neurologic/Psychiatric: Alert, Oriented x3, No Motor/Sensory Deficits, Normal Mood/Affect, roll slicing machine tender II-XII Norm as Tested, Abnormal Gait, Motor Weakness (Right leg) Skin: Normal Color, Warm/Dry Lymphatic: No Adenopathy Results/Procedures Lab Patient resulted labs reviewed. FIM Transfers Therapy Code Descriptions/Definitions Functional [place] Measure: 0=Not Assessed/NA 4=Minimal Assistance 1=Total Assistance 5=Supervision or Setup 2=Maximal Assistance 6=Modified [place] 3=Moderate Assistance 7=Complete IndependenceSCALE: Activities may be completed with or without assistive devices. 4-Ucqzyvywze-dxsvmtu completes the activity by him/herself with no assistance from a helper. 5-Set-up or Clean-up Assistance-helper sets up or cleans up; patient completes activity. [place] assists only prior to or following the activity. 4-Supervision or Touching Assistance-helper provides verbal cues and/or touching/steadying and/or contact guard assistance as patient completes activity. Assistance may be provided throughout the activity or intermittently. 3-Partial/Moderate Assistance-helper does LESS THAN HALF the effort. [place] lifts, holds or supports trunk or limbs, but provides less than half the effort. 2-Substantial/Maximal Assistance-helper does MORE THAN HALF the effort. [place] lifts or holds trunk or limbs and provides more than half the effort. 2-Kkylikgwn-osarpe does ALL the effort. Patient does none of the effort to complete the activity. Or, the assistance of 2 or more helpers is required for the patient to complete the activity. If activity was not attempted, code reason: 7-Patient Refused. 9-Not Applicable-not attempted and the patient did not perform the activity before the current illness, exacerbation or injury. 10-Not Attempted due to Environmental Limitations-(lack of equipment, weather restraints, etc.). 88-Not Attempted due to Medical Conditions or Safety Concerns. Roll Left to Right (QC): 6 Sit to Lying (QC): 6 Sit to Stand (QC): 3 Chair/Meo-hd-Gpzuj Xfer(QC): 4 Car Transfer (QC): 3 Gait Training Does the Patient Walk?: Yes Distance: 50' x2 Walk 10 feet (QC): 3 Walk 50 ft with 2 Turns(QC): 3 Walk 150 ft (QC): 88 Walking 10ft/uneven surface-QC: 88 Gait Persons Needed: 1 Gait Assistive Device: FWW Wheelchair Training Does the Pt Use a Wheelchair?: Yes Distance: 30 Wheel 50 ft with 2 turns (QC): 4 Wheel 150 ft (QC): 4 Type of Wheelchair: Manual Stair Training #of Steps: 0 1 Step (curb) (QC): 88 4 Steps (QC): 88 12 Steps (QC): 88 Balance Picking up an Object (QC): 3 ADL-Treatment Eating (QC): 5 (Per clinical judgement) Oral Hygiene (QC): 5 Shower/Bathe Self (QC): 3 Upper Body Dressing (QC): 5 Lower Body Dressing (QC): 3 On/Off Footwear (QC): 3 Toileting Hygiene (QC): 3 Toilet Transfer (QC): 4 Assessment/Plan Assessment and Plan Assess & Plan/Chief Complaint Assessment: Status post right patellar fracture now in immobilizer status post uncomplicated repair Acute blood loss anemia requiring transfusion Recent GI bleed requiring transfusion Iron deficiency on iron infusions CAD recent stent Depression Constipation laxatives ordered Mcclure cath in place now discontinued Hyponatremia requiring fluid restriction along with salt tablets on 02/22/2021 Nosebleed UTI placed on Omnicef by PCP on 02/24/2021 Plan: Transfuse as necessary Supportive care Inpatient rehab protocol Regain independence Immobilizer 02/19/2021: Supportive care Aggressive therapy Add potassium 02/20/2021: Maintain pain control Bowel regimen 02/21/2021: Continue pain control Monitor hemoglobin Refuses iron infusion 02/22/2021: Immobilizer management Supportive care Fluid restriction 02/23/2021: Dramatic improvement in pain with old brace Check meds and labs 02/24/2021: Nosebleed management UTI treatment (1) Right patella fracture Status: Acute (2) CAD (coronary artery disease) (3) Stented coronary artery (4) History of GI bleed (5) Transfusion of blood during current hospitalisation (6) Low BMI (7) Risk for falls (8) Depression (9) Constipation (10) Severe anemia Status: Acute CASIE COSTA DO Feb 24, 2021 07:09
[2021-02-24 07:53] VITALS: BP 156/68
[2021-02-24] MEDS: PARoxetine 10 MG (PAXIL) TAB PO SCH (09:06)
[2021-02-24] MEDS: DOCUSATE SODIUM 100 MG (COLACE) CAP PO SCH ×2 (09:06→20:53)
[2021-02-24] MEDS: SENNA W/DOCUSATE (SENOKOT S) TABLET PO SCH ×2 (09:06→20:53)
[2021-02-24] MEDS: CLOPIDOGREL 75 MG (PLAVIX) TABLET PO SCH (09:07)
[2021-02-24] MEDS: SODIUM CHLORIDE 1 GM TABLET PO SCH ×2 (09:07→20:54)
[2021-02-24] MEDS: ASPIRIN E.C. 81 MG (ECOTRIN) TAB PO SCH (09:07)
[2021-02-24] MEDS: polyethylene glycoL POWDER 17 GM (MIRALAX) PACK PO SCH ×2 (09:07→21:00)
--- NOTE | 2021-02-24 10:20 | Occupational Ther Daily Note ---
OT Current Status-Daily Note Subjective No pain reported. Appearance Pt. in bed when OT enters. Pt. having nose bleed. Nursing at bedside. Mental Status/Objective Patient Orientation: Person, Place, Time, Situation ADL-Treatment Therapy Code Descriptions/Definitions Functional [place] Measure: 0=Not Assessed/NA 4=Minimal Assistance 1=Total Assistance 5=Supervision or Setup 2=Maximal Assistance 6=Modified [place] 3=Moderate Assistance 7=Complete IndependenceSCALE: Activities may be completed with or without assistive devices. 1-Ugjqmactgx-juxlrsk completes the activity by him/herself with no assistance from a helper. 5-Set-up or Clean-up Assistance-helper sets up or cleans up; patient completes activity. [place] assists only prior to or following the activity. 4-Supervision or Touching Assistance-helper provides verbal cues and/or touching/steadying and/or contact guard assistance as patient completes activity. Assistance may be provided throughout the activity or intermittently. 3-Partial/Moderate Assistance-helper does LESS THAN HALF the effort. [place] lifts, holds or supports trunk or limbs, but provides less than half the effort. 2-Substantial/Maximal Assistance-helper does MORE THAN HALF the effort. [place] lifts or holds trunk or limbs and provides more than half the effort. 0-Dtgnqycmd-bxsxjk does ALL the effort. Patient does none of the effort to complete the activity. Or, the assistance of 2 or more helpers is required for the patient to complete the activity. If activity was not attempted, code reason: 7-Patient Refused. 9-Not Applicable-not attempted and the patient did not perform the activity before the current illness, exacerbation or injury. 10-Not Attempted due to Environmental Limitations-(lack of equipment, weather restraints, etc.). 88-Not Attempted due to Medical Conditions or Safety Concerns. Eating (QC): 5 Oral Hygiene (QC): 5 (SBA at sink per pt.) Upper Body Dressing (QC): 5 Other Treatment Pt. in bed with a bloody nose this date. She has already dressed due to having bled on self, with assist. Pt. unable to get bleeding to stop, so has gauze in nose and is waiting. Declines OOB activity, but agrees to work with OT on discharge education. OT and pt. talked in depth regarding home set up, and any equipment needed. Pt. has a shower chair, and walker. She has a couple of steps, both in her garage and at front door. She plans to practice before discharge. Pt. requests information about hiring help for someone to be at her home when she leaves. OT lets her know that social work has list, but also educates her about process of leaving and having home health therapy. Talked with her about assistance from friends for things like shopping, or being taken to Dr. cleve. Talked to her regarding home set up to make tasks easier. Pt. verbalizes understanding. Pt. also states that she is toileting self with SBA. OT removed bottom strap of brace and completed gentle retrograde massage to foot and lower calf, as pt has swelling. Pt. continues to have bloody nose throughout session and nursing notified. Education OT Patient Education: Correct positioning, Modified ADL techniques, Progress toward Goal/Update tx plan, Purpose of tx/functional activities, Reviewed precautions, Rehab process Teaching Recipient: Patient Teaching Methods: Discussion Response to Teaching: Verbalize Understanding OT Short Term Goals Short Term Goals Time Frame: Feb 26, 2021 Eatin Oral hygiene: 4 Toileting hygiene: 4 Shower/bathe self: 4 Upper body dressin Lower body dressin Putting on/taking off footwear: 4 OT Switch Technician Goals Switch Technician Goals Time Frame: Mar 12, 2021 Eating (QC): 6 Oral Hygiene (QC): 6 Toileting Hygiene (QC): 6 Shower/Bathe Self (QC): 5 Upper Body Dressing (QC): 6 Lower Body Dressing (QC): 5 On/Off Footwear (QC): 6 1=Demonstrate adherence to instructed precautions during ADL tasks. 2=Patient will verbalize/demonstrate understanding of assistive devices/modifications for ADL. 3=Patient will improve strength/tolerance for activity to enable patient to perform ADL's. OT Education/Plan Problem List/Assessment Assessment: Decreased Activ Tolerance, Impaired I ADL's, Impaired Self-Care Skills Discharge Recommendations Plan/Recommendations: Continue POC Therapy Discharge Recommendati: Post Acute OT Treatment Plan/Plan of Care Treatment,Training & Education: Yes Patient would benefit from OT for education, treatment and training to promote independence in ADL's, mobility, safety and/or upper extremity function for ADL's. Plan of Care: ADL Retraining, Functional Mobility, Group Exercise/Act as Ind, UE Funct Exercise/Act Treatment Duration: Mar 12, 2021 Frequency: At least 5 of 7 days/Wk (IRF) Estimated Hrs Per Day: 1.5 hours per day Agreement: Yes Rehab Potential: Fair Time/GCodes Start Time: 09:00 Stop Time: 10:30 Total Time Billed (hr/min): 90 Billed Treatment Time 1, ADL x 6 DORA RAND OT Feb 24, 2021 10:20
--- NOTE | 2021-02-24 11:58 | Physical Therapy Progress Note ---
Therapy Progress Note [employer]IP[employer]ARDS checked on pt at 11:30 for tx, pt on hold per RN request d/t pt having continuous nose bleed most of am. Will check back on pt in pm. JOSE G ONEILL [employer] Feb 24, 2021 11:58
--- NOTE | 2021-02-24 12:56 | Progress Note ---
Subjective Date Seen by a Provider: Feb 24, 2021 Time Seen by a Provider: 12:53 Subjective/Events-last exam Fwup Right patellar fracture, Acute on Chronic Anemia, CAD, Hx. of PUD, Anxiety. Nose bleed today on left side. Also c/o polyuria. Objective Exam Vital Signs Date Time Temp Pulse Resp B/P (MAP) Pulse Ox O2 Delivery O2 Flow Rate FiO2 02/24/21 09:56 Room Air 02/24/21 07:53 36.2 73 16 156/68 (97) 97 Room Air 02/24/21 06:55 36.5 02/23/21 21:40 36.5 02/23/21 21:10 36.5 02/23/21 21:00 Room Air 02/23/21 20:00 36.5 70 20 169/75 (106) 98 Room Air I & O 02/24/21 07:00 Intake Total 850 ml Output Total 751 ml Balance 99 ml Capillary Refill : General Appearance: Mild Distress HEENT: Other (left nares with gauze packing in place) Respiratory: Lungs Clear Cardiovascular: Regular Rate, Rhythm Gastrointestinal: normal bowel sounds, non tender, soft Neurologic/Psychiatric: Alert Assessment/Plan Assessment/Plan Assess & Plan/Chief Complaint 1. Right Patellar Fracture--S/P surgery, pain control, in knee immobilizer with no weight bearing so doing PT/OT, no lovenox done due to recent GI bleed and post-op anemia requiring blood transfusion 2. Acute on Chronic Anemia--History of Bleeding Ulcer and Post-op Anemia--S/P transfusion, H/H stable, iron started 3. History of Bleeding Ulcer--on protonix BID 4. CAD--back on plavix and aspirin 5. Anxiety--on paxil 6. Constipation--improved 7. Acute Epistaxis on left--will try afrin with nasal packing and covert to nasal rocket if needed, call in to Dr. Carvalho to see if he is in town as may need cautery 8. Urinary Frequency--check ROBSON ANDREWS DO Feb 24, 2021 12:56
[2021-02-24 13:36] LABS: BILIRUBIN,URINE NEGATIVE (NEGATIVE); CLARITY,URINE SL CLOUDY; COLOR,URINE YELLOW; GLUCOSE, URINE (UA) NEGATIVE (NEGATIVE); KETONES,URINE NEGATIVE (NEGATIVE); LEUKOCYTE ESTERASE ,URINE 2+ (NEGATIVE); NITRITE,URINE POSITIVE (NEGATIVE); PH,URINE 6.5 (5-9); PROTEIN,URINE NEGATIVE (NEGATIVE)
--- NOTE | 2021-02-24 13:50 | Physical Therapy Daily Note ---
PT Daily Note-Current Subjective Pt in bed upon arrival and agrees to tx. Pt still having nose bleed, per RN reques no OOB activity for pm tx. Mental Status Patient Orientation: Person, Place, Time, Situation Transfers SCALE: Activities may be completed with or without assistive devices. 6-Ytfcpkbbyc-cxhilpz completes the activity by him/herself with no assistance from a helper. 5-Set-up or Clean-up Assistance-helper sets up or cleans up; patient completes activity. [place] assists only prior to or following the activity. 4-Supervision or Touching Assistance-helper provides verbal cues and/or touching/steadying and/or contact guard assistance as patient completes activity. Assistance may be provided throughout the activity or intermittently. 3-Partial/Moderate Assistance-helper does LESS THAN HALF the effort. [place] lifts, holds or supports trunk or limbs, but provides less than half the effort. 2-Substantial/Maximal Assistance-helper does MORE THAN HALF the effort. [place] lifts or holds trunk or limbs and provides more than half the effort. 7-Cedxkddoz-lfuqtd does ALL the effort. Patient does none of the effort to complete the activity. Or, the assistance of 2 or more helpers is required for the patient to complete the activity. If activity was not attempted, code reason: 7-Patient Refused. 9-Not Applicable-not attempted and the patient did not perform the activity before the current illness, exacerbation or injury. 10-Not Attempted due to Environmental Limitations-(lack of equipment, weather restraints, etc.). 88-Not Attempted due to Medical Conditions or Safety Concerns. Roll Left & Right (QC): 6 Weight Bearing Right Lower Extremity: Right Non Weight Bearing Exercises Supine Ex: Bridging, Ankle pumps, Quad Set, Rolling, Glut sets, Heel Slides (L LE only), Scooting, Straight leg raise (R LE only 5 d/t pain), Hip abd/add Supine Reps: 10 Treatments Pt in bed during tx, completes supine exercise. Pt then completes bed mobility and scoots to HOB. Pt remains in bed post tx with all needs met and call light in hand. Assessment Current Status: Fair Progress Pt limited to supine activity d/t nursing hold on pt for continuous nose bleeds. Pt limited d/t pain in R LE PT Short Term Goals Short Term Goals Time Frame: Mar 03, 2021 Roll Left & Right: 5 Sit to lyin Lying to sitting on side of be: 5 Sit to stand: 5 Chair/iny-xt-vckbo transfer: 5 Toilet transfer: 5 Car transfer: 5 Walk 10 feet: 5 Walk 50 feet with two turns: 5 Walk 150 feet: 4 Does pt use a wc or scooter: No Wheel 50ft w/2 turns: 6 Wheel 150 feet: 5 Type: Manual PT Filter Assembler Goals Longterm Goals PT Filter Assembler Goals Time Frame: Mar 23, 2021 Roll Left & Right (QC): 6 Sit to Lying (QC): 6 Lying-Sitting on Side/Bed(QC): 6 Sit to Stand (QC): 6 Chair/Lcy-ia-Eimiu Xfer(QC): 6 Toilet Transfer (QC): 6 Car Transfer (QC): 6 Does the Patient Walk: Yes Walk 10 feet (QC): 6 Walk 50ft with 2 Turns (QC): 6 Walk 150 ft (QC): 5 Walking 10ft on Uneven Surface: 4 1 Step (curb) (QC): 4 4 Steps (QC): 4 12 Steps (QC): 4 Picking up an Object (QC): 6 Does the Pt use WC or Scooter?: Yes Wheel 50 feet with 2 turns (QC: 6 Wheel 150 feet: 6 Type: Manual PT Plan Treatment/Plan Treatment Plan: Continue Plan of Care Treatment Plan: Bed Mobility, Education, Functional Activity [place], Functional Strength, Group Therapy, Gait, Safety, Therapeutic Exercise, Transfers Treatment Duration: Apr 21, 2021 Frequency: At least 5 of 7 days/Wk (IRF) Estimated Hrs Per Day: 1.5 hours per day Patient and/or Family Agrees t: Yes Time/GCodes Time In: 1330 Time Out: 1400 Total Billed Treatment Time: 30 Total Billed Treatment 1, FA, EX JOSE G ONEILL BEER BREWER Feb 24, 2021 13:50
[2021-02-24 13:57] LABS: BACTERIA,URINE MODERATE /HPF; RBC,URINE RARE /HPF; SQUAMOUS EPITHELIAL CELL,UR RARE /HPF; WBC,URINE 50-100 /HPF
[2021-02-24 20:00] VITALS: BP 154/70
[2021-02-24] MEDS ORDERED: SALINE NASAL SPRAY (OCEAN) 45 ML BTL PRN (20:15)
[2021-02-24] MEDS ORDERED: OXYMETAZOLINE (AFRIN) 0.05% NA 30 ML BTL PRN (20:15)
[2021-02-24] MEDS: CEFDINIR 300 MG (OMNICEF) CAP PO SCH (20:53)
[2021-02-24] MEDS ORDERED: OXYMETAZOLINE (AFRIN) 0.05% NA 30 ML BTL SCH (21:00)
[2021-02-25 05:46] LABS: HEMATOCRIT 32 % (35-52); HEMOGLOBIN 10.2 g/dL (11.5-16.0); MEAN CORPUSCULAR HEMOGLOBIN 27 pg (25-34); MEAN CORPUSCULAR HGB CONC 32 g/dL (32-36); MEAN CORPUSCULAR VOLUME 85 fL (80-99); MEAN PLATELET VOLUME 9.5 fL (9.0-12.2); PLATELET COUNT 268 10^3/uL (130-400); WHITE BLOOD COUNT 6.1 10^3/uL (4.3-11.0)
[2021-02-25 06:08] LABS: CALCIUM 8.5 MG/DL (8.5-10.1); CREATININE SERUM 0.6 MG/DL (0.60-1.30); POTASSIUM 4.1 MMOL/L (3.6-5.0)
[2021-02-25] MEDS: KCL 20 MEQ TAB (K-DUR) PO SCH (06:37)
[2021-02-25] MEDS: PANTOPRAZOLE 40 MG (PROTONIX) TAB PO SCH ×2 (06:37→17:35)
--- NOTE | 2021-02-25 07:08 | Progress Note ---
Standard Progress Note Progress Notes/Assess & Plan Date Seen by a Provider: Feb 25, 2021 Time Seen by a Provider: 06:30 Progress/Assessment & Plan SRS-Ijxkg-02/4 No further bleeding overnight has ocan nasal spray and epistaxis instrucitons call if has recurrent persistent bleeding-thanks full note dictated for consult 11 PM Thanks Final Diagnosis Left Anterior Epistaxis YANNI PRICE MD Feb 25, 2021 07:07
[2021-02-25 07:42] VITALS: BP 148/67
[2021-02-25] MEDS: SODIUM CHLORIDE 1 GM TABLET PO SCH (07:48)
[2021-02-25] MEDS: CLOPIDOGREL 75 MG (PLAVIX) TABLET PO SCH (07:48)
[2021-02-25] MEDS: SENNA W/DOCUSATE (SENOKOT S) TABLET PO SCH ×2 (07:48→20:29)
[2021-02-25] MEDS: PARoxetine 10 MG (PAXIL) TAB PO SCH (07:48)
[2021-02-25] MEDS: CEFDINIR 300 MG (OMNICEF) CAP PO SCH ×2 (07:48→20:29)
[2021-02-25] MEDS: DOCUSATE SODIUM 100 MG (COLACE) CAP PO SCH ×2 (07:48→20:29)
[2021-02-25] MEDS: polyethylene glycoL POWDER 17 GM (MIRALAX) PACK PO SCH ×2 (09:01→20:26)
--- NOTE | 2021-02-25 09:33 | Physical Therapy Daily Note ---
PT Daily Note-Current Subjective Pt in bed upon arrival and agrees to co-treat. Pt states no pain prior to tx, during tx pt expresses signs of pain and states R knee is hurting post amb. Co- treat with 2 skilled clinicians due to pt poor mobility, low activity tolerance, safety, and decrease risk of falls. Pain Location: Right Location Body Site: Knee Mental Status Patient Orientation: Person, Place, Time, Situation Transfers SCALE: Activities may be completed with or without assistive devices. 6-Yfercbdfop-lmpnpyi completes the activity by him/herself with no assistance from a helper. 5-Set-up or Clean-up Assistance-helper sets up or cleans up; patient completes activity. [place] assists only prior to or following the activity. 4-Supervision or Touching Assistance-helper provides verbal cues and/or touching/steadying and/or contact guard assistance as patient completes activity. Assistance may be provided throughout the activity or intermittently. 3-Partial/Moderate Assistance-helper does LESS THAN HALF the effort. [place] lifts, holds or supports trunk or limbs, but provides less than half the effort. 2-Substantial/Maximal Assistance-helper does MORE THAN HALF the effort. [place] lifts or holds trunk or limbs and provides more than half the effort. 5-Avzcclzro-levyjl does ALL the effort. Patient does none of the effort to complete the activity. Or, the assistance of 2 or more helpers is required for the patient to complete the activity. If activity was not attempted, code reason: 7-Patient Refused. 9-Not Applicable-not attempted and the patient did not perform the activity b efore the current illness, exacerbation or injury. 10-Not Attempted due to Environmental Limitations-(lack of equipment, weather restraints, etc.). 88-Not Attempted due to Medical Conditions or Safety Concerns. Roll Left & Right (QC): 5 Sit to Lying (QC): 5 Lying to Sitting/Side of Bed(Q: 5 Sit to Stand (QC): 5 Weight Bearing Right Lower Extremity: Right Non Weight Bearing Gait Training Does the Patient Walk?: Yes Distance: 15' x4 Walk 10 feet (QC): 4 Gait Assistive Device: FWW Pt has swing to gait pattern with NWB on R LE. Pt has tendency to WB on R LE, VC given to correct and pt will correct approx 50% of the time. Wheelchair Training Does the Pt Use a Wheelchair?: Yes Type of Wheelchair: Manual Treatments OT focused on bathing, dressing, and ADLs. PT focused on mobility, gait, and LE positioning. Pt completes bed mobility and sits EOB. Pt amb to bathroom and request to use toilet. Pt able to doff/don pants and clean self SBA. Pt transfers to shower bench to complete shower. Pt then gets dressed and completes ADLs in bathroom seated in WC. Pt then amb 15' x2 in halls of ARU, requiring rest breaks d/t fatigue and pain. Pt then returns to room and request to return to the bathroom. Pt transfers to toilet CGA. Pt then amb back to bed. Pt remains in bed with all needs met, call light in hand. Assessment Current Status: Fair Progress Pt more willing to work with PT when co-treating with OT. Pt increasing endurance, strength, and mobility. PT Short Term Goals Short Term Goals Time Frame: Mar 03, 2021 Roll Left & Right: 5 Sit to lyin Lying to sitting on side of be: 5 Sit to stand: 5 Chair/yse-xa-beaqf transfer: 5 Toilet transfer: 5 Car transfer: 5 Walk 10 feet: 5 Walk 50 feet with two turns: 5 Walk 150 feet: 4 Does pt use a wc or scooter: No Wheel 50ft w/2 turns: 6 Wheel 150 feet: 5 Type: Manual PT Inspector And Tester Goals Mcc Goals PT Inspector And Tester Goals Time Frame: Mar 23, 2021 Roll Left & Right (QC): 6 Sit to Lying (QC): 6 Lying-Sitting on Side/Bed(QC): 6 Sit to Stand (QC): 6 Chair/Inv-jl-Kkfjw Xfer(QC): 6 Toilet Transfer (QC): 6 Car Transfer (QC): 6 Does the Patient Walk: Yes Walk 10 feet (QC): 6 Walk 50ft with 2 Turns (QC): 6 Walk 150 ft (QC): 5 Walking 10ft on Uneven Surface: 4 1 Step (curb) (QC): 4 4 Steps (QC): 4 12 Steps (QC): 4 Picking up an Object (QC): 6 Does the Pt use WC or Scooter?: Yes Wheel 50 feet with 2 turns (QC: 6 Wheel 150 feet: 6 Type: Manual PT Plan Problem List Problem List: Activity Tolerance, Functional Strength, Safety Treatment/Plan Treatment Plan: Continue Plan of Care Treatment Plan: Bed Mobility, Education, Functional Activity [place], Functional Strength, Group Therapy, Gait, Safety, Therapeutic Exercise, Transfers Treatment Duration: Apr 21, 2021 Frequency: At least 5 of 7 days/Wk (IRF) Estimated Hrs Per Day: 1.5 hours per day Patient and/or Family Agrees t: Yes Safety Risks/Education Patient Education: Gait Training, Transfer Techniques, Safety Issues Teaching Recipient: Patient Teaching Methods: Demonstration, Discussion Response to Teaching: Verbalize Understanding, Return Demonstration, Reinforcement Needed Time/GCodes Time In: 800 Time Out: 930 Total Billed Treatment Time: 90 Total Billed Treatment 1, FA x4, GT x2 JOSE G ONEILL ACTIVITY SPECIALIST Feb 25, 2021 09:33
--- NOTE | 2021-02-25 09:33 | Occupational Ther Daily Note ---
OT Current Status-Daily Note Subjective Pt was lying supine in bed upon OT/PT arrival. Pt stated she wanted a shower and agreed to cotreat this date. Mental Status/Objective Patient Orientation: Person, Place, Time, Situation Attachments: Knee Immobilizer ADL-Treatment Therapy Code Descriptions/Definitions Functional [place] Measure: 0=Not Assessed/NA 4=Minimal Assistance 1=Total Assistance 5=Supervision or Setup 2=Maximal Assistance 6=Modified [place] 3=Moderate Assistance 7=Complete IndependenceSCALE: Activities may be completed with or without assistive devices. 7-Xixcuzoabg-udrjhze completes the activity by him/herself with no assistance from a helper. 5-Set-up or Clean-up Assistance-helper sets up or cleans up; patient completes activity. [place] assists only prior to or following the activity. 4-Supervision or Touching Assistance-helper provides verbal cues and/or touching/steadying and/or contact guard assistance as patient completes activity. Assistance may be provided throughout the activity or intermittently. 3-Partial/Moderate Assistance-helper does LESS THAN HALF the effort. [place] lifts, holds or supports trunk or limbs, but provides less than half the effort. 2-Substantial/Maximal Assistance-helper does MORE THAN HALF the effort. [place] lifts or holds trunk or limbs and provides more than half the effort. 4-Uxebtyvqo-jlksly does ALL the effort. Patient does none of the effort to complete the activity. Or, the assistance of 2 or more helpers is required for the patient to complete the activity. If activity was not attempted, code reason: 7-Patient Refused. 9-Not Applicable-not attempted and the patient did not perform the activity before the current illness, exacerbation or injury. 10-Not Attempted due to Environmental Limitations-(lack of equipment, weather restraints, etc.). 88-Not Attempted due to Medical Conditions or Safety Concerns. Eating (QC): 6 (Pt is IND per pt report. ) Oral Hygiene (QC): 5 (Pt required set up for oral care and grooming sink side while seated in w/c.) Shower/Bathe Self (QC): 4 (Pt required CGA when standing to wash backside and andrew area, able to wash all parts, utilizing a LHS.) Upper Body Dressing (QC): 5 (Pt requires set up for task while seated in w/c. ) Lower Body Dressing (QC): 4 (Pt required CGA when standing for pant hike, VC's utilizing language therapist to doff and wilfredo LB garments. ) On/Off Footwear: 4 (Pt requires VC's when doffing socks w/ language therapist and when donning R gripper sock w/ sock aide. ) Toileting Hygiene (QC): 4 (Pt required CGA when standing for pant hike for task . ) Toilet Transfer (QC): 4 (Pt required CGA during task for safety. ) Other Treatment Pt was lying supine in bed upon OT/PT arrival. Pt stated she wanted a shower and agreed to cotreat this date. Due to skill of 2 clinicians required which a rehabilitation teacher could not perform in order to coordinate UE/LEs, decrease fall risk, and due to pt's limitations in standing balance, transfers/mobility, problem solving, sequencing, and safety awareness. OT focused on UE placement, cues for sequencing, safety, and ADLs. PT focused on LE placement, gross overall movements, and transfers/mobility. Pt performed bed mobility from supine to EOB, Min assist to brings legs to side of bed. Pt transferred from sit to stand w/ FWW at [facility]. Pt performed functional mobility w/ FWW to toilet, [facility]. Pt performed toileting task, shower, UBD, LBD, footwear, oral care and grooming see above QC's. Knee immobilizer left on throughout shower, covered and remained dry post shower, foot propped up. Pt was taken into hallway via w/c to complete functional mobility w/ FWW, please refer to PT notes for assistance levels and distance. Pt requested to utilize the bathroom and was taken to toilet in w/c. Pt transferred from w/c to toilet at [facility]. Pt performed toileting task. Pt performed functional mobility w/ FWW to bed, [facility]. Pt then transferred from standing w/ FWW to EOB, [facility]. Pt performed bed mobility from EOB to supine, mod assist to bring legs up onto bed and cushion correctly to prevent skin breakdown. Pt requested personal items in room to be brought to her in bed. Post tx session, pt had personal items placed in bed w/ her, lying supine w/ HOB elevated, R and L legs cushioned w/ pillows for safety, call light within reach, and all needs met. Education OT Patient Education: Correct positioning, Energy conservation, Modified ADL techniques, Progress toward Goal/Update tx plan, Purpose of tx/functional activities, Safety issues, Transfer techniques, Use of adapted equipment, W/C management Teaching Recipient: Patient Teaching Methods: Demonstration, Discussion Response to Teaching: Verbalize Understanding, Return Demonstration, Reinforcement Needed OT Short Term Goals Short Term Goals Time Frame: Feb 26, 2021 Eatin Oral hygiene: 4 Toileting hygiene: 4 Shower/bathe self: 4 Upper body dressin Lower body dressin Putting on/taking off footwear: 4 OT Nursing Home Goals Nursing Home Goals Time Frame: Mar 12, 2021 Eating (QC): 6 Oral Hygiene (QC): 6 Toileting Hygiene (QC): 6 Shower/Bathe Self (QC): 5 Upper Body Dressing (QC): 6 Lower Body Dressing (QC): 5 On/Off Footwear (QC): 6 1=Demonstrate adherence to instructed precautions during ADL tasks. 2=Patient will verbalize/demonstrate understanding of assistive devices/modifications for ADL. 3=Patient will improve strength/tolerance for activity to enable patient to perform ADL's. OT Education/Plan Problem List/Assessment Assessment: Decreased Activ Tolerance, Decreased UE Strength, Impaired Bed Mobility, Impaired Coordination, Impaired Funct Balance, Impaired I ADL's, Impaired Self-Care Skills Discharge Recommendations Plan/Recommendations: Continue POC Treatment Plan/Plan of Care Patient would benefit from OT for education, treatment and training to promote independence in ADL's, mobility, safety and/or upper extremity function for ADL's. Plan of Care: ADL Retraining, Functional Mobility, Group Exercise/Act as Ind, UE Funct Exercise/Act Treatment Duration: Mar 12, 2021 Frequency: At least 5 of 7 days/Wk (IRF) Estimated Hrs Per Day: 1.5 hours per day Agreement: Yes Rehab Potential: Fair Time/GCodes Start Time: 08:00 Stop Time: 09:30 Total Time Billed (hr/min): 90 Billed Treatment Time 08:00 - 09:30 Cotreat 1 Visit, ADL 5 (80'), FA (10') SAM MCCORD OT Feb 25, 2021 09:33
--- NOTE | 2021-02-25 12:41 | PM&R Progress Note ---
Subjective HPI/CC On Admission Date Seen by Provider: Feb 25, 2021 Time Seen by Provider: 12:45 Subjective/Events-last exam 02/25/2021: Patient doing better [place] nasal spray helpful for nosebleeds Dr. Carvalho evaluated the patient last night We will discontinue the salt tablets per PCP UTI being treated with Omnicef 02/24/2021: Pt having a nosebleed Contacted PCP: Dr. Mccormick Overall doing well otherwise Pain is still an issues Will hire private caregivers in order to go home Aspirin and Plavix will be maintained until decides to change Urinary issues reported PCP will address 02/23/2021: Patient now wearing her old brace Much improved status Feels much better In less distress today Decreasing pain 02/22/2021: Dr. Hendricks changed her immobilizer and she thinks it is worse This all she talks about is the immobilizer We will try to make it more comfortable for her Very frail status Fluid restriction along with salt tablets ordered 02/21/2021: Patient doing well Her birthday is today Check labs in the morning Pain is well controlled Complains about immobilizer 02/20/2021: Patient doing well Does not really want to be here but she says she has no choice Does not want iron infusions due to perceived side effects so we will discontinue Labs remained stable Bowels moved last night Family member at the bedside Constantly complaining of right leg immobilizer 02/19/2021: Patient doing well Family visiting Pain is pretty well controlled Hemoglobin stable Adding potassium due to hypokalemia Check meds and labs Participating in therapy Review of Systems General: Fatigue Musculoskeletal: leg pain Objective Exam Vital Signs Vital Signs Date Time Temp Pulse Resp B/P (MAP) Pulse Ox O2 Delivery O2 Flow Rate FiO2 02/25/21 20:30 Room Air 02/25/21 20:00 36.6 65 18 149/65 (93) 95 Capillary Refill : General Appearance: No Apparent Distress, WD/WN, Chronically ill, Thin HEENT: PERRL/EOMI, Normal ENT Inspection, Pharynx Normal Neck: Full Range of Motion, Normal Inspection, Non Tender, Supple, Carotid Bruit Respiratory: Chest Non Tender, Lungs Clear, Normal Breath Sounds, No Accessory Muscle Use, No Respiratory Distress Cardiovascular: Regular Rate, Rhythm, No Edema, No Gallop, No JVD, No Murmur, Normal Peripheral Pulses Gastrointestinal: Normal Bowel Sounds, No Organomegaly, No Pulsatile Mass, Non Tender, Soft Back: Normal Inspection, No CVA Tenderness, No Vertebral Tenderness Extremity: Normal Capillary Refill, Normal Inspection, Normal Range of Motion (Right leg in immobilizer), Non Tender, No Calf Tenderness, No Pedal Edema Neurologic/Psychiatric: Alert, Oriented x3, No Motor/Sensory Deficits, Normal Mood/Affect, dining services director II-XII Norm as Tested, Abnormal Gait, Motor Weakness (Right leg) Skin: Normal Color, Warm/Dry Lymphatic: No Adenopathy Results/Procedures Lab Laboratory Tests 02/25/21 05:16 Patient resulted labs reviewed. FIM Transfers Therapy Code Descriptions/Definitions Functional [place] Measure: 0=Not Assessed/NA 4=Minimal Assistance 1=Total Assistance 5=Supervision or Setup 2=Maximal Assistance 6=Modified [place] 3=Moderate Assistance 7=Complete IndependenceSCALE: Activities may be completed with or without assistive devices. 0-Sazcdyzgqg-elyqldn completes the activity by him/herself with no assistance from a helper. 5-Set-up or Clean-up Assistance-helper sets up or cleans up; patient completes activity. [place] assists only prior to or following the activity. 4-Supervision or Touching Assistance-helper provides verbal cues and/or touching/steadying and/or contact guard assistance as patient completes activity. Assistance may be provided throughout the activity or intermittently. 3-Partial/Moderate Assistance-helper does LESS THAN HALF the effort. [place] lifts, holds or supports trunk or limbs, but provides less than half the effort. 2-Substantial/Maximal Assistance-helper does MORE THAN HALF the effort. [place] lifts or holds trunk or limbs and provides more than half the effort. 4-Yggetxsxb-oijvke does ALL the effort. Patient does none of the effort to complete the activity. Or, the assistance of 2 or more helpers is required for the patient to complete the activity. If activity was not attempted, code reason: 7-Patient Refused. 9-Not Applicable-not attempted and the patient did not perform the activity before the current illness, exacerbation or injury. 10-Not Attempted due to Environmental Limitations-(lack of equipment, weather restraints, etc.). 88-Not Attempted due to Medical Conditions or Safety Concerns. Roll Left to Right (QC): 5 Sit to Lying (QC): 5 Sit to Stand (QC): 5 Chair/Yaq-vd-Bdjzx Xfer(QC): 4 Car Transfer (QC): 3 Gait Training Does the Patient Walk?: Yes Distance: 15' x4 Walk 10 feet (QC): 4 Walk 50 ft with 2 Turns(QC): 3 Walk 150 ft (QC): 88 Walking 10ft/uneven surface-QC: 88 Gait Persons Needed: 1 Gait Assistive Device: FWW Wheelchair Training Does the Pt Use a Wheelchair?: Yes Distance: 30 Wheel 50 ft with 2 turns (QC): 4 Wheel 150 ft (QC): 4 Type of Wheelchair: Manual Stair Training #of Steps: 0 1 Step (curb) (QC): 88 4 Steps (QC): 88 12 Steps (QC): 88 Balance Picking up an Object (QC): 3 ADL-Treatment Eating (QC): 6 (Pt is IND per pt report. ) Oral Hygiene (QC): 5 (Pt required set up for oral care and grooming sink side w hile seated in w/c.) Shower/Bathe Self (QC): 4 (Pt required CGA when standing to wash backside and andrew area, able to wash all parts, utilizing a LHS.) Upper Body Dressing (QC): 5 (Pt requires set up for task while seated in w/c. ) Lower Body Dressing (QC): 4 (Pt required CGA when standing for pant hike, VC's utilizing operations staff specialist security to doff and wilfredo LB garments. ) On/Off Footwear (QC): 4 (Pt requires VC's when doffing socks w/ operations staff specialist security and when donning R gripper sock w/ sock aide. ) Toileting Hygiene (QC): 4 (Pt required CGA when standing for pant hike for task. ) Toilet Transfer (QC): 4 (Pt required CGA during task for safety. ) Assessment/Plan Assessment and Plan Assess & Plan/Chief Complaint Assessment: Status post right patellar fracture now in immobilizer status post uncomplicated repair Acute blood loss anemia requiring transfusion Recent GI bleed requiring transfusion Iron deficiency on iron infusions CAD recent stent Depression Constipation laxatives ordered Mcclure cath in place now discontinued Hyponatremia requiring fluid restriction along with salt tablets on 02/22/2021 Nosebleed UTI placed on Omnicef by PCP on 02/24/2021 Plan: Transfuse as necessary Supportive care Inpatient rehab protocol Regain independence Immobilizer 02/19/2021: Supportive care Aggressive therapy Add potassium 02/20/2021: Maintain pain control Bowel regimen 02/21/2021: Continue pain control Monitor hemoglobin Refuses iron infusion 02/22/2021: Immobilizer management Supportive care Fluid restriction 02/23/2021: Dramatic improvement in pain with old brace Check meds and labs 02/24/2021: Nosebleed management UTI treatment 02/25/2021: UTI treatment Appreciate Dr. Carvalho (1) Right patella fracture Status: Acute (2) CAD (coronary artery disease) (3) Stented coronary artery (4) History of GI bleed (5) Transfusion of blood during current hospitalisation (6) Low BMI (7) Risk for falls (8) Depression (9) Constipation (10) Severe anemia Status: Acute CASIE COSTA DO Feb 25, 2021 12:41
--- NOTE | 2021-02-25 12:45 | Progress Note ---
Subjective Date Seen by a Provider: Feb 25, 2021 Time Seen by a Provider: 12:41 Subjective/Events-last exam Fwup Right patellar fracture, Acute on Chronic Anemia, CAD, Hx. of PUD, Anxiety, epistasis, hyponatremia, right lung mass. Nose bleed stopped. C/O left ankle hurting but is more swollen. Objective Exam Vital Signs Date Time Temp Pulse Resp B/P (MAP) Pulse Ox O2 Delivery O2 Flow Rate FiO2 02/25/21 08:48 Room Air 02/25/21 07:42 36.9 70 18 148/67 (94) 95 Room Air 02/24/21 21:00 Room Air 02/24/21 20:00 37.0 63 18 154/70 (98) 95 Room Air 02/24/21 14:06 97 Room Air I & O 02/25/21 07:00 Intake Total 1090 ml Output Total 1025 ml Balance 65 ml Capillary Refill : General Appearance: No Apparent Distress Respiratory: Lungs Clear Cardiovascular: Regular Rate, Rhythm Gastrointestinal: normal bowel sounds, non tender, soft Extremity: Non Tender, No Calf Tenderness, Pedal Edema (right lower leg) Neurologic/Psychiatric: Alert, Oriented x3 Results Lab Laboratory Tests 02/24/21 13:05: Urine Color YELLOW, Urine Clarity SL CLOUDY, Urine pH 6.5, Urine Specific [place] 1.015L, Urine Protein NEGATIVE, Urine Glucose (UA) NEGATIVE, Urine Ketones NEGATIVE, Urine Nitrite POSITIVEH, Urine Bilirubin NEGATIVE, Urine Urobilinogen 1.0, Urine Leukocyte Esterase 2+H, Urine RBC (Auto) 1+H, Urine RBC RARE, Urine WBC 50-100H, Urine Squamous Epithelial Cells RARE, Urine Crystals NONE, Urine Bacteria MODERATEH, Urine Casts NONE, Urine Mucus NEGATIVE, Urine Culture Indicated YES 02/25/21 05:16: White Blood Count 6.1, Red Blood Count 3.73L, Hemoglobin 10.2L, Hematocrit 32L, Mean Corpuscular Volume 85, Mean Corpuscular Hemoglobin 27, Mean Corpuscular Hemoglobin Concent 32, Red Cell Distribution Width 18.6H, Platelet Count 268, Mean Platelet Volume 9.5, Sodium Level 129L, Potassium Level 4.1, Chloride Level 99, Carbon Dioxide Level 20L, Anion Gap 10, Blood Urea Nitrogen 13, Creatinine 0.60, Estimat Glomerular Filtration Rate 96, BUN/Creatinine Ratio 22, Glucose Level 102, Calcium Level 8.5 Assessment/Plan Assessment/Plan Assess & Plan/Chief Complaint 1. Right Patellar Fracture--S/P surgery, pain control, in knee immobilizer with no weight bearing so doing PT/OT, no lovenox done due to recent GI bleed and post-op anemia requiring blood transfusion 2. Acute on Chronic Anemia--History of Bleeding Ulcer and Post-op Anemia--S/P transfusion, H/H stable, iron started 3. History of Bleeding Ulcer--on protonix BID 4. CAD--back on plavix, aspirin held due to nosebleed 5. Anxiety--on paxil 6. Constipation--improved 7. Acute Epistaxis on left--resolved so Dr. Carvalho did not have to cauterize, will use afrin with nasal packing prn if returns and started on saline nasal mist 8. UTI--Cefdinir started 9. Hyponatremia--same so will DC NaCL tabs due to increased BP and increased edema, on fluid restriction, may be associated with right lung mass 10. Hypertension--DC NaCl tab and see if improves ROBSON MO DO Feb 25, 2021 12:45
[2021-02-25 20:00] VITALS: BP 149/65
[2021-02-26] MEDS: KCL 20 MEQ TAB (K-DUR) PO SCH (06:47)
[2021-02-26] MEDS: PANTOPRAZOLE 40 MG (PROTONIX) TAB PO SCH ×2 (06:47→16:00)
--- NOTE | 2021-02-26 07:07 | PM&R Progress Note ---
Subjective HPI/CC On Admission Date Seen by Provider: Feb 26, 2021 Time Seen by Provider: 09:00 Subjective/Events-last exam 02/26/2021: Patient had emesis after potassium We will discontinue potassium pill New complaint every day Very slow progress 02/25/2021: Patient doing better [place] nasal spray helpful for nosebleeds Dr. Carvalho evaluated the patient last night We will discontinue the salt tablets per PCP UTI being treated with Omnicef 02/24/2021: Pt having a nosebleed Contacted PCP: Dr. Mccormick Overall doing well otherwise Pain is still an issues Will hire private caregivers in order to go home Aspirin and Plavix will be maintained until decides to change Urinary issues reported PCP will address 02/23/2021: Patient now wearing her old brace Much improved status Feels much better In less distress today Decreasing pain 02/22/2021: Dr. Hendricks changed her immobilizer and she thinks it is worse This all she talks about is the immobilizer We will try to make it more comfortable for her Very frail status Fluid restriction along with salt tablets ordered 02/21/2021: Patient doing well Her birthday is today Check labs in the morning Pain is well controlled Complains about immobilizer 02/20/2021: Patient doing well Does not really want to be here but she says she has no choice Does not want iron infusions due to perceived side effects so we will discontinue Labs remained stable Bowels moved last night Family member at the bedside Constantly complaining of right leg immobilizer 02/19/2021: Patient doing well Family visiting Pain is pretty well controlled Hemoglobin stable Adding potassium due to hypokalemia Check meds and labs Participating in therapy Review of Systems General: Fatigue, Malaise Musculoskeletal: leg pain Objective Exam Vital Signs Vital Signs Date Time Temp Pulse Resp B/P (MAP) Pulse Ox O2 Delivery O2 Flow Rate FiO2 02/26/21 20:30 94 Room Air 02/26/21 20:00 36.5 68 16 148/72 (97) Capillary Refill : General Appearance: No Apparent Distress, WD/WN, Chronically ill, Thin HEENT: PERRL/EOMI, Normal ENT Inspection, Pharynx Normal Neck: Full Range of Motion, Normal Inspection, Non Tender, Supple, Carotid Bruit Respiratory: Chest Non Tender, Lungs Clear, Normal Breath Sounds, No Accessory Muscle Use, No Respiratory Distress Cardiovascular: Regular Rate, Rhythm, No Edema, No Gallop, No JVD, No Murmur, Normal Peripheral Pulses Gastrointestinal: Normal Bowel Sounds, No Organomegaly, No Pulsatile Mass, Non Tender, Soft Back: Normal Inspection, No CVA Tenderness, No Vertebral Tenderness Extremity: Normal Capillary Refill, Normal Inspection, Normal Range of Motion (Right leg in immobilizer), Non Tender, No Calf Tenderness, No Pedal Edema Neurologic/Psychiatric: Alert, Oriented x3, No Motor/Sensory Deficits, Normal Mood/Affect, professional advisor II-XII Norm as Tested, Abnormal Gait, Motor Weakness (Right leg) Skin: Normal Color, Warm/Dry Lymphatic: No Adenopathy Results/Procedures Lab Patient resulted labs reviewed. FIM Transfers Therapy Code Descriptions/Definitions Functional [place] Measure: 0=Not Assessed/NA 4=Minimal Assistance 1=Total Assistance 5=Supervision or Setup 2=Maximal Assistance 6=Modified Banks 3=Moderate Assistance 7=Complete IndependenceSCALE: Activities may be completed with or without assistive devices. 7-Unzeamjikv-scdwyqw completes the activity by him/herself with no assistance from a helper. 5-Set-up or Clean-up Assistance-helper sets up or cleans up; patient completes activity. [place] assists only prior to or following the activity. 4-Supervision or Touching Assistance-helper provides verbal cues and/or touching/steadying and/or contact guard assistance as patient completes activity. Assistance may be provided throughout the activity or intermittently. 3-Partial/Moderate Assistance-helper does LESS THAN HALF the effort. [place] lifts, holds or supports trunk or limbs, but provides less than half the effort. 2-Substantial/Maximal Assistance-helper does MORE THAN HALF the effort. [place] lifts or holds trunk or limbs and provides more than half the effort. 6-Oeepyohti-skhdqn does ALL the effort. Patient does none of the effort to complete the activity. Or, the assistance of 2 or more helpers is required for the patient to complete the activity. If activity was not attempted, code reason: 7-Patient Refused. 9-Not Applicable-not attempted and the patient did not perform the activity before the current illness, exacerbation or injury. 10-Not Attempted due to Environmental Limitations-(lack of equipment, weather restraints, etc.). 88-Not Attempted due to Medical Conditions or Safety Concerns. Roll Left to Right (QC): 5 Sit to Lying (QC): 5 Sit to Stand (QC): 5 Chair/Hlg-ac-Sxpzf Xfer(QC): 4 Car Transfer (QC): 3 Gait Training Does the Patient Walk?: Yes Distance: 15' x4 Walk 10 feet (QC): 4 Walk 50 ft with 2 Turns(QC): 3 Walk 150 ft (QC): 88 Walking 10ft/uneven surface-QC: 88 Gait Persons Needed: 1 Gait Assistive Device: FWW Wheelchair Training Does the Pt Use a Wheelchair?: Yes Distance: 30 Wheel 50 ft with 2 turns (QC): 4 Wheel 150 ft (QC): 4 Type of Wheelchair: Manual Stair Training #of Steps: 0 1 Step (curb) (QC): 88 4 Steps (QC): 88 12 Steps (QC): 88 Balance Picking up an Object (QC): 3 ADL-Treatment Eating (QC): 6 (Pt is IND per pt report. ) Oral Hygiene (QC): 5 (Pt required set up for oral care and grooming sink side while seated in w/c.) Shower/Bathe Self (QC): 4 (Pt required CGA when standing to wash backside and andrew area, able to wash all parts, utilizing a LHS.) Upper Body Dressing (QC): 5 (Pt requires set up for task while seated in w/c. ) Lower Body Dressing (QC): 4 (Pt required CGA when standing for pant hike, VC's utilizing infrastructure director to doff and wilfredo LB garments. ) On/Off Footwear (QC): 4 (Pt requires VC's when doffing socks w/ infrastructure director and when donning R gripper sock w/ sock aide. ) Toileting Hygiene (QC): 4 (Pt required CGA when standing for pant hike for task. ) Toilet Transfer (QC): 4 (Pt required CGA during task for safety. ) Assessment/Plan Assessment and Plan Assess & Plan/Chief Complaint Assessment: Status post right patellar fracture now in immobilizer status post uncomplicated repair Acute blood loss anemia requiring transfusion Recent GI bleed requiring transfusion Iron deficiency on iron infusions CAD recent stent Depression Constipation laxatives ordered [place] cath in place now discontinued Hyponatremia requiring fluid restriction along with salt tablets on 02/22/2021 then DC'd for patient request Nosebleed UTI placed on Omnicef by PCP on 02/24/2021 Plan: Transfuse as necessary Supportive care Inpatient rehab protocol Regain independence Immobilizer 02/19/2021: Supportive care Aggressive therapy Add potassium 02/20/2021: Maintain pain control Bowel regimen 02/21/2021: Continue pain control Monitor hemoglobin Refuses iron infusion 02/22/2021: Immobilizer management Supportive care Fluid restriction 02/23/2021: Dramatic improvement in pain with old brace Check meds and labs 02/24/2021: Nosebleed management UTI treatment 02/25/2021: UTI treatment Appreciate Dr. Carvalho 02/26/2021: DC potassium pills Monitor closely (1) Right patella fracture Status: Acute (2) CAD (coronary artery disease) (3) Stented coronary artery (4) History of GI bleed (5) Transfusion of blood during current hospitalisation (6) Low BMI (7) Risk for falls (8) Depression (9) Constipation (10) Severe anemia Status: Acute CASIE COSTA DO Feb 26, 2021 07:07
[2021-02-26 07:56] VITALS: BP 159/72
--- NOTE | 2021-02-26 10:06 | Progress Note ---
Subjective Date Seen by a Provider: Feb 26, 2021 Time Seen by a Provider: 10:02 Subjective/Events-last exam Fwup Right patellar fracture, Acute on Chronic Anemia, CAD, Hx. of PUD, Anxiety, epistasis, hyponatremia, right lung mass, UTI, HTN. Got choked on potassium pill this morning. Feeling better now. C/O burning to kneecap. Objective Exam Vital Signs Date Time Temp Pulse Resp B/P (MAP) Pulse Ox O2 Delivery O2 Flow Rate FiO2 02/26/21 08:31 Room Air 02/26/21 07:56 36.2 77 12 159/72 (101) 95 Room Air 02/25/21 20:30 Room Air 02/25/21 20:00 36.6 65 18 149/65 (93) 95 Room Air I & O 02/26/21 07:00 Intake Total 700 ml Output Total 1050 ml Balance -350 ml Capillary Refill : General Appearance: No Apparent Distress Respiratory: Lungs Clear Cardiovascular: Regular Rate, Rhythm Gastrointestinal: normal bowel sounds, non tender, soft Extremity: Pedal Edema (improving to right leg) Neurologic/Psychiatric: Alert, Oriented x3 Results Lab Microbiology 02/24/21 Urine Culture - Preliminary, Resulted Enterobacter Cloacae Complex Assessment/Plan Assessment/Plan Assess & Plan/Chief Complaint 1. Right Patellar Fracture--S/P surgery, pain control, in knee immobilizer with no weight bearing so doing PT/OT, no lovenox done due to recent GI bleed and post-op anemia requiring blood transfusion, offered low dose gabapentin at bedtime to see if would help with burning sensation in knee but patient defers 2. Acute on Chronic Anemia--History of Bleeding Ulcer and Post-op Anemia--S/P transfusion, H/H stable, iron started 3. History of Bleeding Ulcer--on protonix BID 4. CAD--back on plavix, aspirin held due to nosebleed 5. Anxiety--on paxil 6. Constipation--improved 7. Acute Epistaxis on left--resolved so Dr. Carvalho did not have to cauterize, will use afrin with nasal packing prn if returns and started on saline nasal mist 8. UTI--growing out Enterobacter Cloacae--on Cefdinir 9. Hyponatremia--DCed NaCL tabs due to increased BP and increased edema, on fluid restriction, may be associated with right lung mass 10. Hypertension--DC NaCl tab and see if improves 11. Hypokalemia--improved so will DC K-dur and monitor ROBSON MO DO Feb 26, 2021 10:06
--- NOTE | 2021-02-26 10:09 | CONSULTATION REPORT ---
DATE OF SERVICE: 02/25/2021 ENT CONSULT ROOM: [address] [facility] REASON FOR CONSULTATION: Epistaxis. REFERRING PHYSICIAN: Dr. Mccormick HISTORY OF PRESENT ILLNESS: The patient had the acute onset of nosebleed earlier today. It bled off and on for a couple of hours. It was mostly anterior rather than posterior. It stopped at the midafternoon and has not recurred. She is on aspirin and Plavix. She had a heart stent placed in September. She also had recent knee surgery. She has no prior history of marked nosebleeds. She gets a little bit of bleeding when she travels to atmospheric drier tender climates and in the higher altitude. PHYSICAL EXAMINATION: GENERAL: She is in no acute distress. She was having no active bleeding when I saw her. NOSE: External nose normal. Intranasally on the right side that was normal. On the left side, she had a small amount of old blood anterior within the nose. Septum is deviated to the left. There is no new or old blood seen posterior within the nose. Nasopharynx was clear. Oral cavity is clear. Pharynx showed no sign of new or old blood. NECK: Negative to palpation. IMPRESSION: 1. Left anterior epistaxis -- resolved. 2. Aspirin/Plavix anticoagulation. RECOMMENDATIONS: Findings were discussed with the patient. Epistaxis instructions were stressed. She may use the Afrin if she has recurrent bleeding. I have asked her to keep the nose moist with [place] nasal spray on a regular basis for the foreseeable future. I will follow up with her tomorrow to make sure that she has had no further bleeding. Job ID: [id number] DocumentID: [id number] Dictated Date: 02/25/2021 06:13:27 [place] Turner Date: 02/25/2021 06:48:53 Dictated By: YANNI PRICE MD
--- NOTE | 2021-02-26 10:35 | Physical Therapy Daily Note ---
PT Daily Note-Current Subjective Pt. agreeable to Rx but states she fatigues quickly. Pt. shares her story of her near fall and fracture to patella. Pt plans to return to home and hire assistance in her home. Pt. c/o pain in right LE at knee at 8/10. Nurse present at end of Rx to address pain Pain Numeric Pain Scale: 8 Location: Right Location Body Site: Knee Pain Description: Stabbing Mental Status Patient Orientation: Normal For Age Attachments: Other-See Comments (mask) Transfers SCALE: Activities may be completed with or without assistive devices. 7-Wwqqpgkhbt-ezfkhok completes the activity by him/herself with no assistance from a helper. 5-Set-up or Clean-up Assistance-helper sets up or cleans up; patient completes activity. [place] assists only prior to or following the activity. 4-Supervision or Touching Assistance-helper provides verbal cues and/or touching/steadying and/or contact guard assistance as patient completes activity. Assistance may be provided throughout the activity or intermittently. 3-Partial/Moderate Assistance-helper does LESS THAN HALF the effort. [place] lifts, holds or supports trunk or limbs, but provides less than half the effort. 2-Substantial/Maximal Assistance-helper does MORE THAN HALF the effort. [place] lifts or holds trunk or limbs and provides more than half the effort. 5-Dremdfuci-okzupm does ALL the effort. Patient does none of the effort to c omplete the activity. Or, the assistance of 2 or more helpers is required for the patient to complete the activity. If activity was not attempted, code reason: 7-Patient Refused. 9-Not Applicable-not attempted and the patient did not perform the activity before the current illness, exacerbation or injury. 10-Not Attempted due to Environmental Limitations-(lack of equipment, weather restraints, etc.). 88-Not Attempted due to Medical Conditions or Safety Concerns. Roll Left & Right (QC): 6 Sit to Lying (QC): 6 Lying to Sitting/Side of Bed(Q: 6 Sit to Stand (QC): 5 Chair/Vqz-ze-Aqtje Xfer(QC): 5 Toilet Transfer (QC): 5 Weight Bearing Right Lower Extremity: Right Non Weight Bearing Gait Training Does the Patient Walk?: Yes Walk 10 feet (QC): 4 Gait Persons Needed: 1 Gait Assistive Device: FWW Pt. ambulated 25 ft x 3 FWW CGA and instruction for safety and wt bearing precau tions. Pts shoe was donned on left only to facilitate wt bearing on this foot only and for advantage of increased height. WC close behind via OT Wheelchair Training Does the Pt Use a Wheelchair?: Yes Wheel 50 ft with 2 turns (QC): 6 Type of Wheelchair: Manual pt. is indep with brakes but does require assist to put leg rest under right leg and off again Exercises Supine Ex: Ankle pumps, Rolling, Heel Slides, Scooting (up in bed indep), Straight leg raise, Hip abd/add Supine Reps: 12 (left leg only) Seated Therapy Exercises: Ankle pumps, Sit to stand, Long arc quads, Hip flexion Seated Reps: 12 NuStep Minutes: 5 NuStep Workload: 1 Treatments OT PT co Rx 75m as 2 skilled clinicians are required secondary to poor mobility, low activity tolerance, and need for safety Assessment Current Status: Good Progress pt. giving good effort, pt. is at risk for falls but is improving with w/c skills and gait, pt. has plans to have help for safe return to home PT Short Term Goals Short Term Goals Time Frame: Mar 03, 2021 Roll Left & Right: 5 Sit to lyin Lying to sitting on side of be: 5 Sit to stand: 5 Chair/vro-it-pjjnv transfer: 5 Toilet transfer: 5 Car transfer: 5 Walk 10 feet: 5 Walk 50 feet with two turns: 5 Walk 150 feet: 4 Does pt use a wc or scooter: No Wheel 50ft w/2 turns: 6 Wheel 150 feet: 5 Type: Manual PT Jigsaw Operator Goals Long-Term Goals PT Jigsaw Operator Goals Time Frame: Mar 23, 2021 Roll Left & Right (QC): 6 Sit to Lying (QC): 6 Lying-Sitting on Side/Bed(QC): 6 Sit to Stand (QC): 6 Chair/Rai-fu-Ukggn Xfer(QC): 6 Toilet Transfer (QC): 6 Car Transfer (QC): 6 Does the Patient Walk: Yes Walk 10 feet (QC): 6 Walk 50ft with 2 Turns (QC): 6 Walk 150 ft (QC): 5 Walking 10ft on Uneven Surface: 4 1 Step (curb) (QC): 4 4 Steps (QC): 4 12 Steps (QC): 4 Picking up an Object (QC): 6 Does the Pt use WC or Scooter?: Yes Wheel 50 feet with 2 turns (QC: 6 Wheel 150 feet: 6 Type: Manual PT Plan Treatment/Plan Treatment Plan: Continue Plan of Care Treatment Plan: Bed Mobility, Education, Functional Activity [place], Functional Strength, Group Therapy, Gait, Safety, Therapeutic Exercise, Transfers Treatment Duration: Apr 21, 2021 Frequency: At least 5 of 7 days/Wk (IRF) Estimated Hrs Per Day: 1.5 hours per day Patient and/or Family Agrees t: Yes Safety Risks/Education Patient Education: Gait Training, Transfer Techniques, Correct Positioning, W/C Management, Disease Process, Safety Issues Teaching Recipient: Patient Teaching Methods: Demonstration, Discussion Response to Teaching: Verbalize Understanding, Return Demonstration, Reinforcement Needed Time/GCodes Time In: 900 Time Out: 1030 Total Billed Treatment Time: 90 Total Billed Treatment 1,EX25m,WC20m,FA30m,GT15m (75 min PT OT co Rx) GEN NG FOLD SKIVER Feb 26, 2021 10:35
--- NOTE | 2021-02-26 10:42 | Occupational Ther Daily Note ---
OT Current Status-Daily Note Subjective Pt alert, with PT when OT entered. Pt agreed to therapy. No c/o pain reported. Mental Status/Objective Patient Orientation: Person, Place, Time, Situation ADL-Treatment Co-treat with PT ([phone]) due to skill of 2 clinicians required which a clinical rehabilitation aide could not perform in order to coordinate UE/LEs, decrease fall risk, and due to pt's limitations in standing balance, transfers/mobility, problem solving, sequencing, and safety awareness. OT focused on UE placement, safety, UE exercises and ADLs. PT focused on LE placement, gross overall movements, LE exercises and transfers/mobility. PT taking pt to restroom when OT entered. Pt ambulated to bathroom and transferred to toilet with CGA. Pt able to maintain R NWB throughout treatment. Pt sit-stand from toilet using grab bars to complete toilet hygine and hike LB dressing with CGA. Pt transferred to w/c and completed oral hygiene and grooming task independently while seated in w/c at sink. Pt declined changing of UB/LB dressing. Therapy Code Descriptions/Definitions Functional [place] Measure: 0=Not Assessed/NA 4=Minimal Assistance 1=Total Assistance 5=Supervision or Setup 2=Maximal Assistance 6=Modified [place] 3=Moderate Assistance 7=Complete IndependenceSCALE: Activities may be completed with or without assistive devices. 7-Eakmuxnicy-dsvdgqk completes the activity by him/herself with no assistance from a helper. 5-Set-up or Clean-up Assistance-helper sets up or cleans up; patient completes activity. [place] assists only prior to or following the activity. 4-Supervision or Touching Assistance-helper provides verbal cues and/or touching/steadying and/or contact guard assistance as patient completes activity. Assistance may be provided throughout the activity or intermittently. 3-Partial/Moderate Assistance-helper does LESS THAN HALF the effort. [place] lifts, holds or supports trunk or limbs, but provides less than half the effort. 2-Substantial/Maximal Assistance-helper does MORE THAN HALF the effort. [place] lifts or holds trunk or limbs and provides more than half the effort. 7-Tgzniwdgd-rpsdto does ALL the effort. Patient does none of the effort to complete the activity. Or, the assistance of 2 or more helpers is required for the patient to complete the activity. If activity was not attempted, code reason: 7-Patient Refused. 9-Not Applicable-not attempted and the patient did not perform the activity before the current illness, exacerbation or injury. 10-Not Attempted due to Environmental Limitations-(lack of equipment, weather restraints, etc.). 88-Not Attempted due to Medical Conditions or Safety Concerns. Other Treatment Pt participated in functional mobility task of propelling self in w/c from room to gym for increased independence and safety. Pt required increase time to complete task due to decreased activity tolerance. Once in gym, pt SPT from w/c to nu-step, see PT notes for transfers. Pt participated in 3 mins of no resistance of nu-step exercise for increased UE strength for improved activity tolerance. Pt tolerated exercise well, fatigued quickly and requested to stop before 5 min vidya. Pt sit-stand to FWW with CGA and ambulated to w/c. Skilled instruction provided of B UE 1 lb weighted exercises. Pt participated in x10 reps 1 set of 1 lb BUE exercises of shoulder flexion, shoulder abd/adduction, elbow flexion, wrist flexion, wrist supination/pronation. Pt required multiple resting breaks throughout exercise due to decreased endurance. Pt propelled self back to room in w/c. Pt sit-stand from w/c to FWW with CGA. Pt ambulated using FWW and transferred to EOB with CGA. Pt transferred from EOB-supine independently. After session, pt laying in bed with HOB raised. Call light in reach and all needs met. Education OT Patient Education: Correct positioning, Energy conservation, Exercise program, Home exercise program, Modified ADL techniques, Purpose of tx/functional activities, Reviewed precautions, Safety issues, Transfer techniques, W/C management Teaching Recipient: Patient Teaching Methods: Demonstration, Discussion Response to Teaching: Verbalize Understanding, Return Demonstration OT Short Term Goals Short Term Goals Time Frame: Feb 26, 2021 Eatin Oral hygiene: 4 Toileting hygiene: 4 Shower/bathe self: 4 Upper body dressin Lower body dressin Putting on/taking off footwear: 4 OT Skilled Nursing Goals Skilled Nursing Goals Time Frame: Mar 12, 2021 Eating (QC): 6 Oral Hygiene (QC): 6 Toileting Hygiene (QC): 6 Shower/Bathe Self (QC): 5 Upper Body Dressing (QC): 6 Lower Body Dressing (QC): 5 On/Off Footwear (QC): 6 1=Demonstrate adherence to instructed precautions during ADL tasks. 2=Patient will verbalize/demonstrate understanding of assistive devices/modifications for ADL. 3=Patient will improve strength/tolerance for activity to enable patient to perform ADL's. OT Education/Plan Problem List/Assessment Assessment: Decreased Activ Tolerance, Decreased Safety Aware, Decreased UE Strength, Impaired Coordination, Impaired Funct Balance, Impaired I ADL's, Impaired Self-Care Skills Discharge Recommendations Plan/Recommendations: Continue POC Treatment Plan/Plan of Care Patient would benefit from OT for education, treatment and training to promote independence in ADL's, mobility, safety and/or upper extremity function for ADL's. Plan of Care: ADL Retraining, Functional Mobility, Group Exercise/Act as Ind, UE Funct Exercise/Act Treatment Duration: Mar 12, 2021 Frequency: At least 5 of 7 days/Wk (IRF) Estimated Hrs Per Day: 1.5 hours per day Agreement: Yes Rehab Potential: Fair Time/GCodes Start Time: 09:15 Stop Time: 10:45 Total Time Billed (hr/min): 90 Billed Treatment Time 1 visit- ADL 2 ( 30 mins) EX 2 (36 mins) FA 2 (24mins) 90 mins Co-treat [phone] Individual [phone] HORACE GILLIAM Feb 26, 2021 10:42
[2021-02-26] MEDS: CEFDINIR 300 MG (OMNICEF) CAP PO SCH ×2 (10:47→20:17)
[2021-02-26] MEDS: DOCUSATE SODIUM 100 MG (COLACE) CAP PO SCH ×2 (10:47→20:17)
[2021-02-26] MEDS: SENNA W/DOCUSATE (SENOKOT S) TABLET PO SCH ×2 (10:47→20:18)
[2021-02-26] MEDS: PARoxetine 10 MG (PAXIL) TAB PO SCH (10:47)
[2021-02-26] MEDS: CLOPIDOGREL 75 MG (PLAVIX) TABLET PO SCH (10:47)
[2021-02-26] MEDS: polyethylene glycoL POWDER 17 GM (MIRALAX) PACK PO SCH ×2 (11:27→20:18)
[2021-02-26] MEDS: CALCIUM CARBONATE 500 MG (TUMS) TAB.CHEW PO PRN ×2 (12:28→18:02)
[2021-02-26 20:00] VITALS: BP 148/72
[2021-02-27 07:30] VITALS: BP 161/72
[2021-02-27] MEDS: CLOPIDOGREL 75 MG (PLAVIX) TABLET PO SCH (09:48)
[2021-02-27] MEDS: CEFDINIR 300 MG (OMNICEF) CAP PO SCH ×2 (09:48→21:37)
[2021-02-27] MEDS: PARoxetine 10 MG (PAXIL) TAB PO SCH (09:48)
[2021-02-27] MEDS: PANTOPRAZOLE 40 MG (PROTONIX) TAB PO SCH ×2 (09:49→18:51)
[2021-02-27] MEDS: polyethylene glycoL POWDER 17 GM (MIRALAX) PACK PO SCH ×2 (09:50→21:36)
[2021-02-27] MEDS: SENNA W/DOCUSATE (SENOKOT S) TABLET PO SCH ×2 (09:50→21:36)
[2021-02-27] MEDS: DOCUSATE SODIUM 100 MG (COLACE) CAP PO SCH ×2 (09:50→21:36)
--- NOTE | 2021-02-27 09:55 | Physical Therapy Daily Note ---
PT Daily Note-Current Subjective Pt denies pain, agreeable to treatment. Pt requests BR privileges and brushing teeth. Mental Status Patient Orientation: Person, Place, Situation Transfers SCALE: Activities may be completed with or without assistive devices. 8-Aujgvxivro-czgauky completes the activity by him/herself with no assistance from a helper. 5-Set-up or Clean-up Assistance-helper sets up or cleans up; patient completes activity. [place] assists only prior to or following the activity. 4-Supervision or Touching Assistance-helper provides verbal cues and/or touching/steadying and/or contact guard assistance as patient completes activity. Assistance may be provided throughout the activity or intermittently. 3-Partial/Moderate Assistance-helper does LESS THAN HALF the effort. [place] lifts, holds or supports trunk or limbs, but provides less than half the effort. 2-Substantial/Maximal Assistance-helper does MORE THAN HALF the effort. [place] lifts or holds trunk or limbs and provides more than half the effort. 6-Parosfsgc-jwpzic does ALL the effort. Patient does none of the effort to complete the activity. Or, the assistance of 2 or more helpers is required for the patient to complete the activity. If activity was not attempted, code reason: 7-Patient Refused. 9-Not Applicable-not attempted and the patient did not perform the activity before the current illness, exacerbation or injury. 10-Not Attempted due to Environmental Limitations-(lack of equipment, weather restraints, etc.). 88-Not Attempted due to Medical Conditions or Safety Concerns. Weight Bearing Right Lower Extremity: Right Non Weight Bearing Gait Training Gait Assistive Device: FWW Pt amb 2 x 20ft with CGA and NWB (R) LE. Pt uses toilet, doffing and donning clothes (I). Exercises Supine Ex: Ankle pumps Supine Reps: 20 Treatments Pt transferred to w/c and sat at sink for brushing teeth. Pt amb back to bed, all transfers mod (I). Assessment Current Status: Good Progress Pt progressing nicely with functional mobility. Pt is SBA-CGA for all moblity. Pt resting with compression pump (L) LE and (R) LE elevated on pillow. Pt with call light and all needs met. PT Short Term Goals Short Term Goals Time Frame: Mar 03, 2021 Roll Left & Right: 5 Sit to lyin Lying to sitting on side of be: 5 Sit to stand: 5 Chair/aeq-tn-wliyw transfer: 5 Toilet transfer: 5 Car transfer: 5 Walk 10 feet: 5 Walk 50 feet with two turns: 5 Walk 150 feet: 4 Does pt use a wc or scooter: No Wheel 50ft w/2 turns: 6 Wheel 150 feet: 5 Type: Manual PT Cq Developer Goals Shelter Goals PT Shelter Goals Time Frame: Mar 23, 2021 Roll Left & Right (QC): 6 Sit to Lying (QC): 6 Lying-Sitting on Side/Bed(QC): 6 Sit to Stand (QC): 6 Chair/Xze-ty-Ryrjq Xfer(QC): 6 Toilet Transfer (QC): 6 Car Transfer (QC): 6 Does the Patient Walk: Yes Walk 10 feet (QC): 6 Walk 50ft with 2 Turns (QC): 6 Walk 150 ft (QC): 5 Walking 10ft on Uneven Surface: 4 1 Step (curb) (QC): 4 4 Steps (QC): 4 12 Steps (QC): 4 Picking up an Object (QC): 6 Does the Pt use WC or Scooter?: Yes Wheel 50 feet with 2 turns (QC: 6 Wheel 150 feet: 6 Type: Manual PT Plan Treatment/Plan Treatment Plan: Continue Plan of Care Treatment Plan: Bed Mobility, Education, Functional Activity [place], Functional Strength, Group Therapy, Gait, Safety, Therapeutic Exercise, Transfers Treatment Duration: Apr 21, 2021 Frequency: At least 5 of 7 days/Wk (IRF) Estimated Hrs Per Day: 1.5 hours per day Patient and/or Family Agrees t: Yes Time/GCodes Time In: 845 Time Out: 910 Total Billed Treatment Time: 25 Total Billed Treatment 1, FA x 15', gait x 10' ROSSY MCNALLY CPTA Feb 27, 2021 09:55
--- NOTE | 2021-02-27 13:12 | PM&R Progress Note ---
Subjective HPI/CC On Admission Date Seen by Provider: Feb 27, 2021 Time Seen by Provider: 13:15 Subjective/Events-last exam 02/27/2021: Patient doing well Out of bed today Protonix maintained Omnicef completing Slow progress 02/26/2021: Patient had emesis after potassium We will discontinue potassium pill New complaint every day Very slow progress 02/25/2021: Patient doing better [place] nasal spray helpful for nosebleeds Dr. Carvalho evaluated the patient last night We will discontinue the salt tablets per PCP UTI being treated with Omnicef 02/24/2021: Pt having a nosebleed Contacted PCP: Dr. Mccormick Overall doing well otherwise Pain is still an issues Will hire private caregivers in order to go home Aspirin and Plavix will be maintained until decides to change Urinary issues reported PCP will address 02/23/2021: Patient now wearing her old brace Much improved status Feels much better In less distress today Decreasing pain 02/22/2021: Dr. Hendricks changed her immobilizer and she thinks it is worse This all she talks about is the immobilizer We will try to make it more comfortable for her Very frail status Fluid restriction along with salt tablets ordered 02/21/2021: Patient doing well Her birthday is today Check labs in the morning Pain is well controlled Complains about immobilizer 02/20/2021: Patient doing well Does not really want to be here but she says she has no choice Does not want iron infusions due to perceived side effects so we will discontinue Labs remained stable Bowels moved last night Family member at the bedside Constantly complaining of right leg immobilizer 02/19/2021: Patient doing well Family visiting Pain is pretty well controlled Hemoglobin stable Adding potassium due to hypokalemia Check meds and labs Participating in therapy Review of Systems Musculoskeletal: leg pain Objective Exam Vital Signs Vital Signs Date Time Temp Pulse Resp B/P (MAP) Pulse Ox O2 Delivery O2 Flow Rate FiO2 02/27/21 20:30 95 Room Air 02/27/21 20:00 36.8 70 20 133/60 (84) Capillary Refill : General Appearance: No Apparent Distress, WD/WN, Chronically ill, Thin HEENT: PERRL/EOMI, Normal ENT Inspection, Pharynx Normal Neck: Full Range of Motion, Normal Inspection, Non Tender, Supple, Carotid Bruit Respiratory: Chest Non Tender, Lungs Clear, Normal Breath Sounds, No Accessory Muscle Use, No Respiratory Distress Cardiovascular: Regular Rate, Rhythm, No Edema, No Gallop, No JVD, No Murmur, Normal Peripheral Pulses Gastrointestinal: Normal Bowel Sounds, No Organomegaly, No Pulsatile Mass, Non Tender, Soft Back: Normal Inspection, No CVA Tenderness, No Vertebral Tenderness Extremity: Normal Capillary Refill, Normal Inspection, Normal Range of Motion (Right leg in immobilizer), Non Tender, No Calf Tenderness, No Pedal Edema Neurologic/Psychiatric: Alert, Oriented x3, No Motor/Sensory Deficits, Normal Mood/Affect, hot dog vender II-XII Norm as Tested, Abnormal Gait, Motor Weakness (Right l eg) Skin: Normal Color, Warm/Dry Lymphatic: No Adenopathy Results/Procedures Lab Patient resulted labs reviewed. FIM Transfers Therapy Code Descriptions/Definitions Functional [place] Measure: 0=Not Assessed/NA 4=Minimal Assistance 1=Total Assistance 5=Supervision or Setup 2=Maximal Assistance 6=Modified [place] 3=Moderate Assistance 7=Complete IndependenceSCALE: Activities may be completed with or without assistive devices. 2-Uftfyenpii-fqeauhk completes the activity by him/herself with no assistance from a helper. 5-Set-up or Clean-up Assistance-helper sets up or cleans up; patient completes activity. [place] assists only prior to or following the activity. 4-Supervision or Touching Assistance-helper provides verbal cues and/or touching/steadying and/or contact guard assistance as patient completes activity. Assistance may be provided throughout the activity or intermittently. 3-Partial/Moderate Assistance-helper does LESS THAN HALF the effort. [place] lifts, holds or supports trunk or limbs, but provides less than half the effort. 2-Substantial/Maximal Assistance-helper does MORE THAN HALF the effort. [place] lifts or holds trunk or limbs and provides more than half the effort. 6-Ixoqosulp-mhxowu does ALL the effort. Patient does none of the effort to complete the activity. Or, the assistance of 2 or more helpers is required for the patient to complete the activity. If activity was not attempted, code reason: 7-Patient Refused. 9-Not Applicable-not attempted and the patient did not perform the activity before the current illness, exacerbation or injury. 10-Not Attempted due to Environmental Limitations-(lack of equipment, weather restraints, etc.). 88-Not Attempted due to Medical Conditions or Safety Concerns. Roll Left to Right (QC): 6 Sit to Lying (QC): 6 Sit to Stand (QC): 5 Chair/Yql-ut-Ydcqq Xfer(QC): 5 Car Transfer (QC): 3 Gait Training Does the Patient Walk?: Yes Distance: 15' x4 Walk 10 feet (QC): 4 Walk 50 ft with 2 Turns(QC): 3 Walk 150 ft (QC): 88 Walking 10ft/uneven surface-QC: 88 Gait Persons Needed: 1 Gait Assistive Device: FWW Wheelchair Training Does the Pt Use a Wheelchair?: Yes Distance: 30 Wheel 50 ft with 2 turns (QC): 6 Wheel 150 ft (QC): 4 Type of Wheelchair: Manual Stair Training #of Steps: 0 1 Step (curb) (QC): 88 4 Steps (QC): 88 12 Steps (QC): 88 Balance Picking up an Object (QC): 3 ADL-Treatment Eating (QC): 6 (Pt is IND per pt report. ) Oral Hygiene (QC): 5 (Pt required set up for oral care and grooming sink side w hile seated in w/c.) Shower/Bathe Self (QC): 4 (Pt required CGA when standing to wash backside and andrew area, able to wash all parts, utilizing a LHS.) Upper Body Dressing (QC): 5 (Pt requires set up for task while seated in w/c. ) Lower Body Dressing (QC): 4 (Pt required CGA when standing for pant hike, VC's utilizing territory account representative to doff and wilfredo LB garments. ) On/Off Footwear (QC): 4 (Pt requires VC's when doffing socks w/ territory account representative and when donning R gripper sock w/ sock aide. ) Toileting Hygiene (QC): 4 (Pt required CGA when standing for pant hike for task. ) Toilet Transfer (QC): 4 (Pt required CGA during task for safety. ) Assessment/Plan Assessment and Plan Assess & Plan/Chief Complaint Assessment: Status post right patellar fracture now in immobilizer status post uncomplicated repair Acute blood loss anemia requiring transfusion Recent GI bleed requiring transfusion Iron deficiency on iron infusions CAD recent stent Depression Constipation laxatives ordered Mcclure cath in place now discontinued Hyponatremia requiring fluid restriction along with salt tablets on 02/22/2021 then DC'd for patient request Nosebleed UTI placed on Omnicef by PCP on 02/24/2021 Plan: Transfuse as necessary Supportive care Inpatient rehab protocol Regain independence Immobilizer 02/19/2021: Supportive care Aggressive therapy Add potassium 02/20/2021: Maintain pain control Bowel regimen 02/21/2021: Continue pain control Monitor hemoglobin Refuses iron infusion 02/22/2021: Immobilizer management Supportive care Fluid restriction 02/23/2021: Dramatic improvement in pain with old brace Check meds and labs 02/24/2021: Nosebleed management UTI treatment 02/25/2021: UTI treatment Appreciate Dr. Carvalho 02/26/2021: DC potassium pills Monitor closely 02/27/2021: Supportive care Pain control (1) Right patella fracture Status: Acute (2) CAD (coronary artery disease) (3) Stented coronary artery (4) History of GI bleed (5) Transfusion of blood during current hospitalisation (6) Low BMI (7) Risk for falls (8) Depression (9) Constipation (10) Severe anemia Status: Acute CASIE COSTA DO Feb 27, 2021 13:12
[2021-02-27 20:00] VITALS: BP 133/60
[2021-02-28] MEDS: PANTOPRAZOLE 40 MG (PROTONIX) TAB PO SCH ×2 (06:52→16:57)
[2021-02-28 07:30] VITALS: BP 148/66
[2021-02-28] MEDS: CEFDINIR 300 MG (OMNICEF) CAP PO SCH ×2 (08:05→20:23)
[2021-02-28] MEDS: PARoxetine 10 MG (PAXIL) TAB PO SCH (08:05)
[2021-02-28] MEDS: CLOPIDOGREL 75 MG (PLAVIX) TABLET PO SCH (08:05)
[2021-02-28] MEDS: DOCUSATE SODIUM 100 MG (COLACE) CAP PO SCH ×2 (08:06→20:04)
[2021-02-28] MEDS: SENNA W/DOCUSATE (SENOKOT S) TABLET PO SCH ×2 (08:07→20:05)
[2021-02-28] MEDS: polyethylene glycoL POWDER 17 GM (MIRALAX) PACK PO SCH ×2 (08:07→20:04)
--- NOTE | 2021-02-28 12:18 | PM&R Progress Note ---
Subjective HPI/CC On Admission Date Seen by Provider: Feb 28, 2021 Time Seen by Provider: 12:20 Subjective/Events-last exam 02/28/2021: Patient doing well pain is controlled Assessment the right knee incision line No drainage looks good Loose stools from antibiotic 02/27/2021: Patient doing well Out of bed today Protonix maintained Omnicef completing Slow progress 02/26/2021: Patient had emesis after potassium We will discontinue potassium pill New complaint every day Very slow progress 02/25/2021: Patient doing better [place] nasal spray helpful for nosebleeds Dr. Carvalho evaluated the patient last night We will discontinue the salt tablets per PCP UTI being treated with Omnicef 02/24/2021: Pt having a nosebleed Contacted PCP: Dr. Mccormick Overall doing well otherwise Pain is still an issues Will hire private caregivers in order to go home Aspirin and Plavix will be maintained until decides to change Urinary issues reported PCP will address 02/23/2021: Patient now wearing her old brace Much improved status Feels much better In less distress today Decreasing pain 02/22/2021: Dr. Hendricks changed her immobilizer and she thinks it is worse This all she talks about is the immobilizer We will try to make it more comfortable for her Very frail status Fluid restriction along with salt tablets ordered 02/21/2021: Patient doing well Her birthday is today Check labs in the morning Pain is well controlled Complains about immobilizer 02/20/2021: Patient doing well Does not really want to be here but she says she has no choice Does not want iron infusions due to perceived side effects so we will discontinue Labs remained stable Bowels moved last night Family member at the bedside Constantly complaining of right leg immobilizer 02/19/2021: Patient doing well Family visiting Pain is pretty well controlled Hemoglobin stable Adding potassium due to hypokalemia Check meds and labs Participating in therapy Review of Systems Musculoskeletal: leg pain Objective Exam Vital Signs Vital Signs Date Time Temp Pulse Resp B/P (MAP) Pulse Ox O2 Delivery O2 Flow Rate FiO2 02/28/21 10:35 92 Room Air 02/28/21 07:30 36.6 64 18 148/66 (93) Capillary Refill : General Appearance: No Apparent Distress, WD/WN, Chronically ill, Thin HEENT: PERRL/EOMI, Normal ENT Inspection, Pharynx Normal Neck: Full Range of Motion, Normal Inspection, Non Tender, Supple, Carotid Bruit Respiratory: Chest Non Tender, Lungs Clear, Normal Breath Sounds, No Accessory Muscle Use, No Respiratory Distress Cardiovascular: Regular Rate, Rhythm, No Edema, No Gallop, No JVD, No Murmur, Normal Peripheral Pulses Gastrointestinal: Normal Bowel Sounds, No Organomegaly, No Pulsatile Mass, Non Tender, Soft Back: Normal Inspection, No CVA Tenderness, No Vertebral Tenderness Extremity: Normal Capillary Refill, Normal Inspection, Normal Range of Motion (Right leg in immobilizer), Non Tender, No Calf Tenderness, No Pedal Edema Neurologic/Psychiatric: Alert, Oriented x3, No Motor/Sensory Deficits, Normal Mood/Affect, clinical partner II-XII Norm as Tested, Abnormal Gait, Motor Weakness (Right leg) Skin: Normal Color, Warm/Dry Lymphatic: No Adenopathy Results/Procedures Lab Patient resulted labs reviewed. FIM Transfers Therapy Code Descriptions/Definitions Functional [place] Measure: 0=Not Assessed/NA 4=Minimal Assistance 1=Total Assistance 5=Supervision or Setup 2=Maximal Assistance 6=Modified [place] 3=Moderate Assistance 7=Complete IndependenceSCALE: Activities may be completed with or without assistive devices. 9-Gogxklcqkk-bhfzdev completes the activity by him/herself with no assistance from a helper. 5-Set-up or Clean-up Assistance-helper sets up or cleans up; patient completes activity. [place] assists only prior to or following the activity. 4-Supervision or Touching Assistance-helper provides verbal cues and/or touching/steadying and/or contact guard assistance as patient completes activity. Assistance may be provided throughout the activity or intermittently. 3-Partial/Moderate Assistance-helper does LESS THAN HALF the effort. [place] lifts, holds or supports trunk or limbs, but provides less than half the effort. 2-Substantial/Maximal Assistance-helper does MORE THAN HALF the effort. [place] lifts or holds trunk or limbs and provides more than half the effort. 1-Eohaxbuzl-tuljgr does ALL the effort. Patient does none of the effort to complete the activity. Or, the assistance of 2 or more helpers is required for the patient to complete the activity. If activity was not attempted, code reason: 7-Patient Refused. 9-Not Applicable-not attempted and the patient did not perform the activity before the current illness, exacerbation or injury. 10-Not Attempted due to Environmental Limitations-(lack of equipment, weather restraints, etc.). 88-Not Attempted due to Medical Conditions or Safety Concerns. Roll Left to Right (QC): 6 Sit to Lying (QC): 6 Sit to Stand (QC): 5 Chair/Jju-rm-[place] Xfer(QC): 5 Car Transfer (QC): 3 Gait Training Does the Patient Walk?: Yes Distance: 15' x4 Walk 10 feet (QC): 4 Walk 50 ft with 2 Turns(QC): 3 Walk 150 ft (QC): 88 Walking 10ft/uneven surface-QC: 88 Gait Persons Needed: 1 Gait Assistive Device: FWW Wheelchair Training Does the Pt Use a Wheelchair?: Yes Distance: 30 Wheel 50 ft with 2 turns (QC): 6 Wheel 150 ft (QC): 4 Type of Wheelchair: Manual Stair Training #of Steps: 0 1 Step (curb) (QC): 88 4 Steps (QC): 88 12 Steps (QC): 88 Balance Picking up an Object (QC): 3 ADL-Treatment Eating (QC): 6 (Pt is IND per pt report. ) Oral Hygiene (QC): 5 (Pt required set up for oral care and grooming sink side while seated in w/c.) Shower/Bathe Self (QC): 4 (Pt required CGA when standing to wash backside and andrew area, able to wash all parts, utilizing a LHS.) Upper Body Dressing (QC): 5 (Pt requires set up for task while seated in w/c. ) Lower Body Dressing (QC): 4 (Pt required CGA when standing for pant hike, VC's utilizing line patrolman to doff and wilfredo LB garments. ) On/Off Footwear (QC): 4 (Pt requires VC's when doffing socks w/ line patrolman and when donning R gripper sock w/ sock aide. ) Toileting Hygiene (QC): 4 (Pt required CGA when standing for pant hike for task. ) Toilet Transfer (QC): 4 (Pt required CGA during task for safety. ) Assessment/Plan Assessment and Plan Assess & Plan/Chief Complaint Assessment: Status post right patellar fracture now in immobilizer status post uncomplicated repair Acute blood loss anemia requiring transfusion Recent GI bleed requiring transfusion Iron deficiency on iron infusions CAD recent stent Depression Constipation laxatives ordered Mccl[place] cath in place now discontinued Hyponatremia requiring fluid restriction along with salt tablets on 02/22/2021 then DC'd for patient request Nosebleed UTI placed on Omnicef by PCP on 02/24/2021 Plan: Transfuse as necessary Supportive care Inpatient rehab protocol Regain independence Immobilizer 02/19/2021: Supportive care Aggressive therapy Add potassium 02/20/2021: Maintain pain control Bowel regimen 02/21/2021: Continue pain control Monitor hemoglobin Refuses iron infusion 02/22/2021: Immobilizer management Supportive care Fluid restriction 02/23/2021: Dramatic improvement in pain with old brace Check meds and labs 02/24/2021: Nosebleed management UTI treatment 02/25/2021: UTI treatment Appreciate Dr. Carvalho 02/26/2021: DC potassium pills Monitor closely 02/27/2021: Supportive care Pain control 02/28/2021: Supportive care (1) Right patella fracture Status: Acute (2) CAD (coronary artery disease) (3) Stented coronary artery (4) History of GI bleed (5) Transfusion of blood during current hospitalisation (6) Low BMI (7) Risk for falls (8) Depression (9) Constipation (10) Severe anemia Status: Acute CASIE COSTA DO Feb 28, 2021 12:18
[2021-02-28] MEDS: LOPERAMIDE 2 MG (IMODIUM) TABLET PO PRN (13:46)
[2021-02-28 19:59] VITALS: BP 120/58
[2021-03-01] MEDS: PANTOPRAZOLE 40 MG (PROTONIX) TAB PO SCH ×2 (05:18→17:01)
--- NOTE | 2021-03-01 05:48 | PM&R Progress Note ---
Subjective HPI/CC On Admission Date Seen by Provider: Mar 01, 2021 Time Seen by Provider: 10:00 Subjective/Events-last exam 03/01/2021: Patient doing well Refused last day of Omnicef Loose stools continue Multiple complaints 02/28/2021: Patient doing well pain is controlled Assessment the right knee incision line No drainage looks good Loose stools from antibiotic 02/27/2021: Patient doing well Out of bed today Protonix maintained Omnicef completing Slow progress 02/26/2021: Patient had emesis after potassium We will discontinue potassium pill New complaint every day Very slow progress 02/25/2021: Patient doing better [place] nasal spray helpful for nosebleeds Dr. Carvalho evaluated the patient last night We will discontinue the salt tablets per PCP UTI being treated with Omnicef 02/24/2021: Pt having a nosebleed Contacted PCP: Dr. Mccormick Overall doing well otherwise Pain is still an issues Will hire private caregivers in order to go home Aspirin and Plavix will be maintained until decides to change Urinary issues reported PCP will address 02/23/2021: Patient now wearing her old brace Much improved status Feels much better In less distress today Decreasing pain 02/22/2021: Dr. Hendricks changed her immobilizer and she thinks it is worse This all she talks about is the immobilizer We will try to make it more comfortable for her Very frail status Fluid restriction along with salt tablets ordered 02/21/2021: Patient doing well Her birthday is today Check labs in the morning Pain is well controlled Complains about immobilizer 02/20/2021: Patient doing well Does not really want to be here but she says she has no choice Does not want iron infusions due to perceived side effects so we will discontinue Labs remained stable Bowels moved last night Family member at the bedside Constantly complaining of right leg immobilizer 02/19/2021: Patient doing well Family visiting Pain is pretty well controlled Hemoglobin stable Adding potassium due to hypokalemia Check meds and labs Participating in therapy Review of Systems Musculoskeletal: leg pain Objective Exam Vital Signs Vital Signs Date Time Temp Pulse Resp B/P (MAP) Pulse Ox O2 Delivery O2 Flow Rate FiO2 03/01/21 20:30 Room Air 03/01/21 20:00 36.6 67 16 140/67 (91) 96 Capillary Refill : General Appearance: No Apparent Distress, WD/WN, Chronically ill, Thin HEENT: PERRL/EOMI, Normal ENT Inspection, Pharynx Normal Neck: Full Range of Motion, Normal Inspection, Non Tender, Supple, Carotid Bruit Respiratory: Chest Non Tender, Lungs Clear, Normal Breath Sounds, No Accessory Muscle Use, No Respiratory Distress Cardiovascular: Regular Rate, Rhythm, No Edema, No Gallop, No JVD, No Murmur, Normal Peripheral Pulses Gastrointestinal: Normal Bowel Sounds, No Organomegaly, No Pulsatile Mass, Non Tender, Soft Back: Normal Inspection, No CVA Tenderness, No Vertebral Tenderness Extremity: Normal Capillary Refill, Normal Inspection, Normal Range of Motion (Right leg in immobilizer), Non Tender, No Calf Tenderness, No Pedal Edema Neurologic/Psychiatric: Alert, Oriented x3, No Motor/Sensory Deficits, Normal Mood/Affect, location analyst II-XII Norm as Tested, Abnormal Gait, Motor Weakness (Right leg) Skin: Normal Color, Warm/Dry Lymphatic: No Adenopathy Results/Procedures Lab Patient resulted labs reviewed. FIM Transfers Therapy Code Descriptions/Definitions Functional [place] Measure: 0=Not Assessed/NA 4=Minimal Assistance 1=Total Assistance 5=Supervision or Setup 2=Maximal Assistance 6=Modified [place] 3=Moderate Assistance 7=Complete IndependenceSCALE: Activities may be completed with or without assistive devices. 9-Szfmehkrua-gwogsyj completes the activity by him/herself with no assistance from a helper. 5-Set-up or Clean-up Assistance-helper sets up or cleans up; patient completes activity. [place] assists only prior to or following the activity. 4-Supervision or Touching Assistance-helper provides verbal cues and/or touching/steadying and/or contact guard assistance as patient completes activ ity. Assistance may be provided throughout the activity or intermittently. 3-Partial/Moderate Assistance-helper does LESS THAN HALF the effort. [place] lifts, holds or supports trunk or limbs, but provides less than half the effort. 2-Substantial/Maximal Assistance-helper does MORE THAN HALF the effort. [place] lifts or holds trunk or limbs and provides more than half the effort. 4-Qwnvifjqc-lqsuwk does ALL the effort. Patient does none of the effort to complete the activity. Or, the assistance of 2 or more helpers is required for the patient to complete the activity. If activity was not attempted, code reason: 7-Patient Refused. 9-Not Applicable-not attempted and the patient did not perform the activity before the current illness, exacerbation or injury. 10-Not Attempted due to Environmental Limitations-(lack of equipment, weather restraints, etc.). 88-Not Attempted due to Medical Conditions or Safety Concerns. Roll Left to Right (QC): 6 Sit to Lying (QC): 6 Sit to Stand (QC): 5 Chair/Zkv-rr-Xuobt Xfer(QC): 5 Car Transfer (QC): 3 Gait Training Does the Patient Walk?: Yes Distance: 15' x4 Walk 10 feet (QC): 4 Walk 50 ft with 2 Turns(QC): 3 Walk 150 ft (QC): 88 Walking 10ft/uneven surface-QC: 88 Gait Persons Needed: 1 Gait Assistive Device: FWW Wheelchair Training Does the Pt Use a Wheelchair?: Yes Distance: 30 Wheel 50 ft with 2 turns (QC): 6 Wheel 150 ft (QC): 4 Type of Wheelchair: Manual Stair Training #of Steps: 0 1 Step (curb) (QC): 88 4 Steps (QC): 88 12 Steps (QC): 88 Balance Picking up an Object (QC): 3 ADL-Treatment Eating (QC): 6 (Pt is IND per pt report. ) Oral Hygiene (QC): 5 (Pt required set up for oral care and grooming sink side while seated in w/c.) Shower/Bathe Self (QC): 4 (Pt required CGA when standing to wash backside and andrew area, able to wash all parts, utilizing a LHS.) Upper Body Dressing (QC): 5 (Pt requires set up for task while seated in w/c. ) Lower Body Dressing (QC): 4 (Pt required CGA when standing for pant hike, VC's utilizing machine i cutter to doff and wilfredo LB garments. ) On/Off Footwear (QC): 4 (Pt requires VC's when doffing socks w/ machine i cutter and when donning R gripper sock w/ sock aide. ) Toileting Hygiene (QC): 4 (Pt required CGA when standing for pant hike for task. ) Toilet Transfer (QC): 4 (Pt required CGA during task for safety. ) Assessment/Plan Assessment and Plan Assess & Plan/Chief Complaint Assessment: Status post right patellar fracture now in immobilizer status post uncomplicated repair Acute blood loss anemia requiring transfusion Recent GI bleed requiring transfusion Iron deficiency on iron infusions CAD recent stent Depression Constipation laxatives ordered Mcclure cath in place now discontinued Hyponatremia requiring fluid restriction along with salt tablets on 02/22/2021 then DC'd for patient request Nosebleed UTI placed on Omnicef by PCP on 02/24/2021 Plan: Transfuse as necessary Supportive care Inpatient rehab protocol Regain independence Immobilizer 02/19/2021: Supportive care Aggressive therapy Add potassium 02/20/2021: Maintain pain control Bowel regimen 02/21/2021: Continue pain control Monitor hemoglobin Refuses iron infusion 02/22/2021: Immobilizer management Supportive care Fluid restriction 02/23/2021: Dramatic improvement in pain with old brace Check meds and labs 02/24/2021: Nosebleed management UTI treatment 02/25/2021: UTI treatment Kathleen Carvalho 02/26/2021: DC potassium pills Monitor closely 02/27/2021: Supportive care Pain control 02/28/2021: Supportive care 03/01/2021: Supportive care Discharge plan on Monday (1) Right patella fracture Status: Acute (2) CAD (coronary artery disease) (3) Stented coronary artery (4) History of GI bleed (5) Transfusion of blood during current hospitalisation (6) Low BMI (7) Risk for falls (8) Depression (9) Constipation (10) Severe anemia Status: Acute CASIE COSTA DO Mar 01, 2021 05:48
[2021-03-01 05:50] LABS: BASOPHILS # (AUTO) 0.1 10^3/uL (0.0-0.1); BASOPHILS % (AUTO) 2 % (0-10); EOSINOPHILS # (AUTO) 0.3 10^3/uL (0.0-0.3); EOSINOPHILS % (AUTO) 5 % (0-10); HEMATOCRIT 35 % (35-52); HEMOGLOBIN 10.9 g/dL (11.5-16.0); LYMPHOCYTES % (AUTO) 19 % (12-44); MEAN CORPUSCULAR HEMOGLOBIN 28 pg (25-34); MEAN CORPUSCULAR HGB CONC 31 g/dL (32-36); MEAN CORPUSCULAR VOLUME 88 fL (80-99); MEAN PLATELET VOLUME 9.6 fL (9.0-12.2); MONOCYTES # (AUTO) 0.5 10^3/uL (0.0-1.0); MONOCYTES % (AUTO) 9 % (0-12); NEUTROPHILS # (AUTO) 3.4 10^3/uL (1.8-7.8); NEUTROPHILS % (AUTO) 64 % (42-75); PLATELET COUNT 384 10^3/uL (130-400); WHITE BLOOD COUNT 5.3 10^3/uL (4.3-11.0)
[2021-03-01 06:04] LABS: ALBUMIN 3.5 GM/DL (3.2-4.5); POTASSIUM 4.2 MMOL/L (3.6-5.0)
[2021-03-01 06:05] LABS: CALCIUM 8.9 MG/DL (8.5-10.1)
[2021-03-01 06:07] LABS: TOTAL PROTEIN 6.2 GM/DL (6.4-8.2)
[2021-03-01 06:09] LABS: BILIRUBIN,TOTAL 0.6 MG/DL (0.1-1.0)
[2021-03-01 06:10] LABS: CREATININE SERUM 0.69 MG/DL (0.60-1.30)
[2021-03-01] MEDS: CLOPIDOGREL 75 MG (PLAVIX) TABLET PO SCH (07:49)
[2021-03-01] MEDS: PARoxetine 10 MG (PAXIL) TAB PO SCH (07:49)
[2021-03-01] MEDS: SENNA W/DOCUSATE (SENOKOT S) TABLET PO SCH ×2 (07:50→19:32)
[2021-03-01] MEDS: CEFDINIR 300 MG (OMNICEF) CAP PO SCH ×2 (07:50→07:53)
[2021-03-01] MEDS: DOCUSATE SODIUM 100 MG (COLACE) CAP PO SCH ×2 (07:50→19:32)
[2021-03-01] MEDS: polyethylene glycoL POWDER 17 GM (MIRALAX) PACK PO SCH ×2 (07:50→19:32)
[2021-03-01 08:00] VITALS: BP 145/65
[2021-03-01] MEDS: LOPERAMIDE 2 MG (IMODIUM) TABLET PO PRN ×2 (08:07→13:45)
--- NOTE | 2021-03-01 10:27 | Occupational Ther Daily Note ---
OT Current Status-Daily Note Subjective Pt denies pain, agreeable to treatment. Appearance Returned to supine in bed, all needs within reach. Mental Status/Objective Patient Orientation: Person, Place, Time, Situation ADL-Treatment Therapy Code Descriptions/Definitions Functional [place] Measure: 0=Not Assessed/NA 4=Minimal Assistance 1=Total Assistance 5=Supervision or Setup 2=Maximal Assistance 6=Modified [place] 3=Moderate Assistance 7=Complete IndependenceSCALE: Activities may be completed with or without assistive devices. 1-Iteuuduidb-pzvxnzs completes the activity by him/herself with no assistance from a helper. 5-Set-up or Clean-up Assistance-helper sets up or cleans up; patient completes activity. [place] assists only prior to or following the activity. 4-Supervision or Touching Assistance-helper provides verbal cues and/or touching/steadying and/or contact guard assistance as patient completes activity. Assistance may be provided throughout the activity or intermittently. 3-Partial/Moderate Assistance-helper does LESS THAN HALF the effort. [place] lifts, holds or supports trunk or limbs, but provides less than half the effort. 2-Substantial/Maximal Assistance-helper does MORE THAN HALF the effort. [place] lifts or holds trunk or limbs and provides more than half the effort. 9-Inmsynagw-ofwuyw does ALL the effort. Patient does none of the effort to complete the activity. Or, the assistance of 2 or more helpers is required for the patient to complete the activity. If activity was not attempted, code reason: 7-Patient Refused. 9-Not Applicable-not attempted and the patient did not perform the activity before the current illness, exacerbation or injury. 10-Not Attempted due to Environmental Limitations-(lack of equipment, weather restraints, etc.). 88-Not Attempted due to Medical Conditions or Safety Concerns. Oral Hygiene (QC): 6 Upper Body Dressing (QC): 5 Lower Body Dressing (QC): 4 Toileting Hygiene (QC): 4 Toilet Transfer (QC): 4 Supine>sit: SBA. Pt stood and hopped to/from bathroom with SBA and use of walker. Good adherence to NWB this date with no cues needed. Partial sponge bath performed seated at sink. She washed upper body only with set up assist. Pt able to set up and complete grooming tasks at w/c level without assist/cues. She sat EOB to don clothing. Pt initially donned pants onto LLE first and then was unable thread RLE into clothing. Reminder cue to thread RLE first due to immobolizer and being unable to bend knee. Post cue, pt restarted and was able to complete with SBA. She performed clothing managed at supine level and bridging at hips; no assist. Education OT Patient Education: Correct positioning, Energy conservation, Modified ADL techniques, Progress toward Goal/Update tx plan, Purpose of tx/functional activities, Reviewed precautions, Rehab process, Safety issues Teaching Recipient: Patient Teaching Methods: Demonstration, Discussion Response to Teaching: Verbalize Understanding, Return Demonstration OT Short Term Goals Short Term Goals Time Frame: Feb 26, 2021 Eatin Oral hygiene: 4 Toileting hygiene: 4 Shower/bathe self: 4 Upper body dressin Lower body dressin Putting on/taking off footwear: 4 OT Fur Blender Goals Fur Blender Goals Time Frame: Mar 12, 2021 Eating (QC): 6 Oral Hygiene (QC): 6 Toileting Hygiene (QC): 6 Shower/Bathe Self (QC): 5 Upper Body Dressing (QC): 6 Lower Body Dressing (QC): 5 On/Off Footwear (QC): 6 1=Demonstrate adherence to instructed precautions during ADL tasks. 2=Patient will verbalize/demonstrate understanding of assistive devices/modifications for ADL. 3=Patient will improve strength/tolerance for activity to enable patient to perform ADL's. OT Education/Plan Problem List/Assessment Assessment: Decreased Activ Tolerance, Decreased Safety Aware, Decreased UE Strength, Impaired Funct Balance, Impaired I ADL's, Impaired Self-Care Skills Discharge Recommendations Plan/Recommendations: Continue POC Equpiment Recommendations-D/C: Machine Shop Lead Man, Sock Aide Treatment Plan/Plan of Care Treatment,Training & Education: Yes Patient would benefit from OT for education, treatment and training to promote independence in ADL's, mobility, safety and/or upper extremity function for ADL's. Plan of Care: ADL Retraining, Functional Mobility, Group Exercise/Act as Ind, UE Funct Exercise/Act Treatment Duration: Mar 12, 2021 Frequency: At least 5 of 7 days/Wk (IRF) Estimated Hrs Per Day: 1.5 hours per day Agreement: Yes Rehab Potential: Fair Time/GCodes Start Time: 09:15 Stop Time: 10:15 Total Time Billed (hr/min): 60 Billed Treatment Time 1 visit ADL x4 Sis Bragg OT Mar 01, 2021 10:27
--- NOTE | 2021-03-01 10:54 | Progress Note - Ortho ---
Progress Note Subjective Date of Exam 03/01/21 Chief Complaint POD#13 Reattachment of patella tendon to inferior pole of patella status post inferior pole patella fractureRight knee HPI/Events since last exam Mrs. Pantoja is 13 days postop. She states her pain is less. She states she could not tolerate the hinged knee brace and is now back in the knee immobilizer. Review of Systems No additions or change Allergies: Coded Allergies: Penicillins (Verified Allergy, Mild, Skin rash Several years ago, 02/16/21) hydrocodone (Verified Allergy, Mild, The patient states that the hydrocodone made her feel "goofy, 02/16/21) Home Meds Reported Medications Aspirin (Aspirin EC) 81 Mg Tablet.dr, 162 MG PO HS PRN for RESTLESSNESS, TAB 02/23/21 Pantoprazole Sodium (Pantoprazole Sodium) 20 Mg Tablet.dr, 20 MG PO BID, TAB 02/23/21 [Balance Of Nature] No Conflict Check, 1 EA PO DAILY 02/23/21 Clopidogrel Bisulfate (Clopidogrel) 75 Mg Tablet, 75 MG PO 1200, TAB 12/09/20 Aspirin (Aspirin EC) 81 Mg Tablet.dr, 81 MG PO DAILY, TAB 12/09/20 Objective Exam Constitutional: [] HEENT: [] Neck: [] Cardiovascular: [] Respiratory: [] Gastrointestinal: [] Genitourinary: [] Skin: [] Back/Spine: [] Extremities: []Again she is in a knee immobilizer. The knee is flexed about 30 degrees and the knee immobilizer. I removed her dressing her incision looks good without redness or drainage.Arlin are intact. She was able to do a straight leg raise without her immobilizer on. Neurologic: [] Psychiatric: [] Hematologic/lymphatic/immunologic: [] Vital Signs Vital Signs Date Time Temp Pulse Resp B/P (MAP) Pulse Ox O2 Delivery O2 Flow Rate FiO2 03/01/21 08:00 36.7 72 14 145/65 (91) 95 Room Air 03/01/21 05:48 36.6 03/01/21 05:18 36.6 02/28/21 22:28 Room Air 02/28/21 21:00 95 Room Air 02/28/21 19:59 36.6 68 20 120/58 (78) 94 Room Air I & O 03/01/21 06:59 Intake Total 730 ml Output Total 1000 ml Balance -270 ml Lab Results Laboratory Tests 03/01/21 05:10: White Blood Count 5.3, Red Blood Count 3.96, Hemoglobin 10.9L, Hematocrit 35, Mean Corpuscular Volume 88, Mean Corpuscular Hemoglobin 28, Mean Corpuscular Hemoglobin Concent 31L, Red Cell Distribution Width 20.0H, Platelet Count 384, Mean Platelet Volume 9.6, Immature Granulocyte % (Auto) 0, Neutrophils (%) (Auto) 64, Lymphocytes (%) (Auto) 19, Monocytes (%) (Auto) 9, Eosinophils (%) (Auto) 5, Basophils (%) (Auto) 2, Neutrophils # (Auto) 3.4, Lymphocytes # (Auto) 1.0, Monocytes # (Auto) 0.5, Eosinophils # (Auto) 0.3, Basophils # (Auto) 0.1, Immature Granulocyte # (Auto) 0.0, Sodium Level 135, Potassium Level 4.2, Chloride Level 102, Carbon Dioxide Level 21, Anion Gap 12, Blood Urea Nitrogen 22H, Creatinine 0.69, Estimat Glomerular Filtration Rate 81, BUN/Creatinine Ratio 32, Glucose Level 100, Calcium Level 8.9, Corrected Calcium 9.3, Total Bilirubin 0.6, Aspartate Amino Transf (AST/SGOT) 15, Alanine Aminotransferase (ALT/SGPT) 9, Alkaline Phosphatase 78, Total Protein 6.2L, Albumin 3.5 Microbiology 02/24/21 Urine Culture - Final, Complete Enterobacter Cloacae Complex Enterobacter cloacae complex Assessment and Plan Assessment Doing well 13 days postop Problem List Unchanged Plan Continue with knee immobilizer or hinged knee brace. Continue with strengthening exercises. Again no flexion of the knee at this point.Staple removal tomorrow Final Diagonsis Status post tendon repair inferior pole patella right knee Level of the visit: Level 3 ATIYA TIERNEY MD Mar 01, 2021 10:54
--- NOTE | 2021-03-01 12:01 | Physical Therapy Daily Note ---
PT Daily Note-Current Subjective Pt in bed upon arrival and agrees to tx. Pt has no c/o pain prior to tx, states sharp pain in knee during amb. Mental Status Patient Orientation: Person, Place, Time, Situation Transfers SCALE: Activities may be completed with or without assistive devices. 7-Qurnpqoeoi-wpnaqty completes the activity by him/herself with no assistance from a helper. 5-Set-up or Clean-up Assistance-helper sets up or cleans up; patient completes activity. [place] assists only prior to or following the activity. 4-Supervision or Touching Assistance-helper provides verbal cues and/or touching/steadying and/or contact guard assistance as patient completes activity. Assistance may be provided throughout the activity or intermittently. 3-Partial/Moderate Assistance-helper does LESS THAN HALF the effort. [place] lifts, holds or supports trunk or limbs, but provides less than half the effort. 2-Substantial/Maximal Assistance-helper does MORE THAN HALF the effort. [place] lifts or holds trunk or limbs and provides more than half the effort. 1-Iynzooxgr-jizksv does ALL the effort. Patient does none of the effort to complete the activity. Or, the assistance of 2 or more helpers is required for the patient to complete the activity. If activity was not attempted, code reason: 7-Patient Refused. 9-Not Applicable-not attempted and the patient did not perform the activity before the current illness, exacerbation or injury. 10-Not Attempted due to Environmental Limitations-(lack of equipment, weather restraints, etc.). 88-Not Attempted due to Medical Conditions or Safety Concerns. Roll Left & Right (QC): 5 Sit to Lying (QC): 5 Lying to Sitting/Side of Bed(Q: 5 Sit to Stand (QC): 5 Weight Bearing Right Lower Extremity: Right Non Weight Bearing Gait Training Does the Patient Walk?: Yes Distance: 15' x2 Walk 10 feet (QC): 5 Gait Assistive Device: FWW Pt amb 15' x2 with NWB on R LE, able to hold precautions during entire gait bout Stair Training Stair Training: Handrails/: uses walker #of Steps: 1 1 Step (curb) (QC): 3 Stairs: Pattern: Hops Pt attempted curb step w/ FWW and hopping, pt completes ModA but states she wouldn't attempt again d/t pain it caused. Exercises Supine Ex: Bridging, Ankle pumps, Heel Slides, Straight leg raise, Hip abd/add Supine Reps: 10 Seated Therapy Exercises: Sit to stand, Long arc quads Seated Reps: 10 Treatments 11-1130: Pt completes bed mobility and amb 15' to bathroom. Pt able to doff/don pants and use toilet. Pt requires A for cleaning as pt is having diarrhea. Pt then amb back to bed and completes seated ex EOB, then supine ex. OT enters tx at this time. 1130-12 Co-treat: Use of 2 skilled clinicians d/t pt poor mobility, weakness, low activity tolerance, fatigue, and safety. OT focused on UE positioning and functional mobility. PT focused on LE strengthening/positioning and amb. Pt in bed, discussed needs for when pt DCs. Pt states she has 2 steps at home with no hand rails. Pt attempts 1 curb step, ModA but pt refuses to complete again d/t pain and some anxiety. Pt then returns to bed. Pt remains in bed with all needs met, call light in hand. Assessment Current Status: Fair Progress Pt states at home she will have somebody carry her up the steps to get into the house. States she will hire people to help her PT Short Term Goals Short Term Goals Time Frame: Mar 03, 2021 Roll Left & Right: 5 Sit to lyin Lying to sitting on side of be: 5 Sit to stand: 5 Chair/yel-hf-xznle transfer: 5 Toilet transfer: 5 Car transfer: 5 Walk 10 feet: 5 Walk 50 feet with two turns: 5 Walk 150 feet: 4 Does pt use a wc or scooter: No Wheel 50ft w/2 turns: 6 Wheel 150 feet: 5 Type: Manual PT Single End Sewer Goals Skilled Nursing Goals PT Skilled Nursing Goals Time Frame: Mar 23, 2021 Roll Left & Right (QC): 6 Sit to Lying (QC): 6 Lying-Sitting on Side/Bed(QC): 6 Sit to Stand (QC): 6 Chair/Frx-hk-Srwmj Xfer(QC): 6 Toilet Transfer (QC): 6 Car Transfer (QC): 6 Does the Patient Walk: Yes Walk 10 feet (QC): 6 Walk 50ft with 2 Turns (QC): 6 Walk 150 ft (QC): 5 Walking 10ft on Uneven Surface: 4 1 Step (curb) (QC): 4 4 Steps (QC): 4 12 Steps (QC): 4 Picking up an Object (QC): 6 Does the Pt use WC or Scooter?: Yes Wheel 50 feet with 2 turns (QC: 6 Wheel 150 feet: 6 Type: Manual PT Plan Problem List Problem List: Activity Tolerance, Functional Strength, Safety Treatment/Plan Treatment Plan: Continue Plan of Care Treatment Plan: Bed Mobility, Education, Functional Activity [place], Functional Strength, Group Therapy, Gait, Safety, Therapeutic Exercise, Transfers Treatment Duration: Apr 21, 2021 Frequency: At least 5 of 7 days/Wk (IRF) Estimated Hrs Per Day: 1.5 hours per day Patient and/or Family Agrees t: Yes Safety Risks/Education Patient Education: Gait Training, Steps Teaching Recipient: Patient Teaching Methods: Demonstration, Discussion Response to Teaching: Verbalize Understanding, Return Demonstration Time/GCodes Time In: 1100 Time Out: 1200 Total Billed Treatment Time: 60 Total Billed Treatment 1, GT, Ex, FA x2 JOSE G ONEILL FIBER OPTIC SPLICER Mar 01, 2021 12:01
--- NOTE | 2021-03-01 12:31 | Occupational Ther Daily Note ---
OT Current Status-Daily Note Subjective Pt reports discomfort from immobolizer but no significant pain. Appearance Returned to supine, all needs within reach at therapy departure. Mental Status/Objective Patient Orientation: Person, Place, Situation ADL-Treatment Therapy Code Descriptions/Definitions Functional [place] Measure: 0=Not Assessed/NA 4=Minimal Assistance 1=Total Assistance 5=Supervision or Setup 2=Maximal Assistance 6=Modified [place] 3=Moderate Assistance 7=Complete IndependenceSCALE: Activities may be completed with or without assistive devices. 0-Zghcuasnel-rovnusz completes the activity by him/herself with no assistance from a helper. 5-Set-up or Clean-up Assistance-helper sets up or cleans up; patient completes activity. [place] assists only prior to or following the activity. 4-Supervision or Touching Assistance-helper provides verbal cues and/or touching/steadying and/or contact guard assistance as patient completes activity. Assistance may be provided throughout the activity or intermittently. 3-Partial/Moderate Assistance-helper does LESS THAN HALF the effort. [place] lifts, holds or supports trunk or limbs, but provides less than half the effort. 2-Substantial/Maximal Assistance-helper does MORE THAN HALF the effort. [place] lifts or holds trunk or limbs and provides more than half the effort. 7-Cwxecbvzy-kknplk does ALL the effort. Patient does none of the effort to complete the activity. Or, the assistance of 2 or more helpers is required for the patient to complete the activity. If activity was not attempted, code reason: 7-Patient Refused. 9-Not Applicable-not attempted and the patient did not perform the activity before the current illness, exacerbation or injury. 10-Not Attempted due to Environmental Limitations-(lack of equipment, weather restraints, etc.). 88-Not Attempted due to Medical Conditions or Safety Concerns. Other Treatment Co-treat with PT: Use of 2 skilled clinicians d/t pt poor mobility, weakness, low activity tolerance, fatigue, and safety. Pt with multiple questions regarding discharge and DME. Education provided from both OT and PT. She states she has 2 steps at home with no hand rails. Pt completes 1 curb step, ModA x2. Refuses any more d/t pain and anxiety. Discussed possibility of other options such as bumping up stairs or use of adjustable shower chair to sit on with each step as pt has difficulty jumping high enough while also maintaining NWB and immobilization of R knee. Pt reports hiring extra help and having them "lift and carry" her into the home. Education OT Patient Education: Correct positioning, Energy conservation, Modified ADL techniques, Progress toward Goal/Update tx plan, Purpose of tx/functional activities, Reviewed precautions, Rehab process, Safety issues, Transfer techniques, Use of adapted equipment Teaching Recipient: Patient Teaching Methods: Demonstration, Discussion Response to Teaching: Verbalize Understanding, Return Demonstration, Reinforcement Needed OT Short Term Goals Short Term Goals Time Frame: Feb 26, 2021 Eatin Oral hygiene: 4 Toileting hygiene: 4 Shower/bathe self: 4 Upper body dressin Lower body dressin Putting on/taking off footwear: 4 OT Penitentiary Goals Penitentiary Goals Time Frame: Mar 12, 2021 Eating (QC): 6 Oral Hygiene (QC): 6 Toileting Hygiene (QC): 6 Shower/Bathe Self (QC): 5 Upper Body Dressing (QC): 6 Lower Body Dressing (QC): 5 On/Off Footwear (QC): 6 1=Demonstrate adherence to instructed precautions during ADL tasks. 2=Patient will verbalize/demonstrate understanding of assistive devices/modifications for ADL. 3=Patient will improve strength/tolerance for activity to enable patient to perform ADL's. OT Education/Plan Problem List/Assessment Assessment: Decreased Activ Tolerance, Decreased UE Strength, Impaired Funct Balance, Impaired I ADL's, Impaired Self-Care Skills Discharge Recommendations Plan/Recommendations: Continue POC Treatment Plan/Plan of Care Treatment,Training & Education: Yes Patient would benefit from OT for education, treatment and training to promote independence in ADL's, mobility, safety and/or upper extremity function for ADL's. Plan of Care: ADL Retraining, Functional Mobility, Group Exercise/Act as Ind, UE Funct Exercise/Act Treatment Duration: Mar 12, 2021 Frequency: At least 5 of 7 days/Wk (IRF) Estimated Hrs Per Day: 1.5 hours per day Agreement: Yes Rehab Potential: Fair Time/GCodes Start Time: 11:30 Stop Time: 12:00 Total Time Billed (hr/min): 30 Billed Treatment Time 1 visit, FA x2 Co-treat for 30 min Sis Bragg OT Mar 01, 2021 12:31
--- NOTE | 2021-03-01 13:27 | Physical Therapy Daily Note ---
PT Daily Note-Current Subjective Pt in bed upon arrival w/ visitor in room and agrees to PT. Pt states pain in R LE, but doesn't rate out of 10. RN notified. Mental Status Patient Orientation: Person, Place, Time, Situation Transfers SCALE: Activities may be completed with or without assistive devices. 7-Hkflcmajxc-swjuwou completes the activity by him/herself with no assistance from a helper. 5-Set-up or Clean-up Assistance-helper sets up or cleans up; patient completes activity. [place] assists only prior to or following the activity. 4-Supervision or Touching Assistance-helper provides verbal cues and/or touching/steadying and/or contact guard assistance as patient completes activity. Assistance may be provided throughout the activity or intermittently. 3-Partial/Moderate Assistance-helper does LESS THAN HALF the effort. [place] lifts, holds or supports trunk or limbs, but provides less than half the effort. 2-Substantial/Maximal Assistance-helper does MORE THAN HALF the effort. [place] lifts or holds trunk or limbs and provides more than half the effort. 7-Udejpjxle-plcvmw does ALL the effort. Patient does none of the effort to complete the activity. Or, the assistance of 2 or more helpers is required for the patient to complete the activity. If activity was not attempted, code reason: 7-Patient Refused. 9-Not Applicable-not attempted and the patient did not perform the activity before the current illness, exacerbation or injury. 10-Not Attempted due to Environmental Limitations-(lack of equipment, weather restraints, etc.). 88-Not Attempted due to Medical Conditions or Safety Concerns. Roll Left & Right (QC): 5 Sit to Lying (QC): 5 Lying to Sitting/Side of Bed(Q: 5 Sit to Stand (QC): 5 Weight Bearing Right Lower Extremity: Right Non Weight Bearing Gait Training Does the Patient Walk?: Yes Distance: 30', 15' Walk 10 feet (QC): 5 Gait Assistive Device: FWW Pt has swing to gait pattern Treatments Pt completes bed mobility and amb 30' in hallways. Pt request to use bathroom, PT propels WC back to room for pt, pt transfers to toilet and able to doff/don pants SBA. Pt sit to stand and begins to amb, then states she needs to go back to toilet. Pt turns and amb back, doffs pants SBA. Pt sit to stand SBA, requires A with cleaning self, and amb 15' back to bed. Pt remains in bed with all needs met, call light in hand. Assessment Current Status: Fair Progress Pt increasing endurance, strength, and mobility PT Short Term Goals Short Term Goals Time Frame: Mar 03, 2021 Roll Left & Right: 5 Sit to lyin Lying to sitting on side of be: 5 Sit to stand: 5 Chair/vue-ax-sicsw transfer: 5 Toilet transfer: 5 Car transfer: 5 Walk 10 feet: 5 Walk 50 feet with two turns: 5 Walk 150 feet: 4 Does pt use a wc or scooter: No Wheel 50ft w/2 turns: 6 Wheel 150 feet: 5 Type: Manual PT Despatching And Receiving Clerk Goals Despatching And Receiving Clerk Goals PT Despatching And Receiving Clerk Goals Time Frame: Mar 23, 2021 Roll Left & Right (QC): 6 Sit to Lying (QC): 6 Lying-Sitting on Side/Bed(QC): 6 Sit to Stand (QC): 6 Chair/Ezu-er-Ufedf Xfer(QC): 6 Toilet Transfer (QC): 6 Car Transfer (QC): 6 Does the Patient Walk: Yes Walk 10 feet (QC): 6 Walk 50ft with 2 Turns (QC): 6 Walk 150 ft (QC): 5 Walking 10ft on Uneven Surface: 4 1 Step (curb) (QC): 4 4 Steps (QC): 4 12 Steps (QC): 4 Picking up an Object (QC): 6 Does the Pt use WC or Scooter?: Yes Wheel 50 feet with 2 turns (QC: 6 Wheel 150 feet: 6 Type: Manual PT Plan Problem List Problem List: Activity Tolerance, Functional Strength, Safety Treatment/Plan Treatment Plan: Continue Plan of Care Treatment Plan: Bed Mobility, Education, Functional Activity [place], Functional Strength, Group Therapy, Gait, Safety, Therapeutic Exercise, Transfers Treatment Duration: Apr 21, 2021 Frequency: At least 5 of 7 days/Wk (IRF) Estimated Hrs Per Day: 1.5 hours per day Patient and/or Family Agrees t: Yes Safety Risks/Education Patient Education: Gait Training Teaching Recipient: Patient Teaching Methods: Discussion Response to Teaching: Verbalize Understanding Time/GCodes Time In: 1300 Time Out: 1330 Total Billed Treatment Time: 30 Total Billed Treatment 1, GT, JOSE G JOHN DIRECTOR PERIOPERATIVE Mar 01, 2021 13:27
[2021-03-01] MEDS: ACETAMINOPHEN 500 MG TAB (TYLENOL) PO PRN (13:45)
[2021-03-01 20:00] VITALS: BP 140/67
[2021-03-02] MEDS: PANTOPRAZOLE 40 MG (PROTONIX) TAB PO SCH ×2 (06:46→17:22)
[2021-03-02 07:30] VITALS: BP 140/64
[2021-03-02] MEDS: CLOPIDOGREL 75 MG (PLAVIX) TABLET PO SCH (08:45)
[2021-03-02] MEDS: PARoxetine 10 MG (PAXIL) TAB PO SCH (08:45)
--- NOTE | 2021-03-02 08:56 | PM&R Progress Note ---
Subjective HPI/CC On Admission Date Seen by Provider: Mar 02, 2021 Time Seen by Provider: 08:35 Subjective/Events-last exam 03/02/2021: Pt will be discharged tomorrow DC the april today I did all of her DC meds and sent to [facility] 03/01/2021: Patient doing well Refused last day of Omnicef Loose stools continue Multiple complaints 02/28/2021: Patient doing well pain is controlled Assessment the right knee incision line No drainage looks good Loose stools from antibiotic 02/27/2021: Patient doing well Out of bed today Protonix maintained Omnicef completing Slow progress 02/26/2021: Patient had emesis after potassium We will discontinue potassium pill New complaint every day Very slow progress 02/25/2021: Patient doing better [place] nasal spray helpful for nosebleeds Dr. Carvalho evaluated the patient last night We will discontinue the salt tablets per PCP UTI being treated with Omnicef 02/24/2021: Pt having a nosebleed Contacted PCP: Dr. Mccormick Overall doing well otherwise Pain is still an issues Will hire private caregivers in order to go home Aspirin and Plavix will be maintained until decides to change Urinary issues reported PCP will address 02/23/2021: Patient now wearing her old brace Much improved status Feels much better In less distress today Decreasing pain 02/22/2021: Dr. Hendricks changed her immobilizer and she thinks it is worse This all she talks about is the immobilizer We will try to make it more comfortable for her Very frail status Fluid restriction along with salt tablets ordered 02/21/2021: Patient doing well Her birthday is today Check labs in the morning Pain is well controlled Complains about immobilizer 02/20/2021: Patient doing well Does not really want to be here but she says she has no choice Does not want iron infusions due to perceived side effects so we will discontinue Labs remained stable Bowels moved last night Family member at the bedside Constantly complaining of right leg immobilizer 02/19/2021: Patient doing well Family visiting Pain is pretty well controlled Hemoglobin stable Adding potassium due to hypokalemia Check meds and labs Participating in therapy Review of Systems General: Fatigue Musculoskeletal: leg pain Objective Exam Vital Signs Vital Signs Date Time Temp Pulse Resp B/P (MAP) Pulse Ox O2 Delivery O2 Flow Rate FiO2 11/9/21 20:53 Room Air 03/02/21 20:09 36.8 66 20 156/64 (94) 96 Capillary Refill : General Appearance: No Apparent Distress, WD/WN, Chronically ill, Thin HEENT: PERRL/EOMI, Normal ENT Inspection, Pharynx Normal Neck: Full Range of Motion, Normal Inspection, Non Tender, Supple, Carotid Bruit Respiratory: Chest Non Tender, Lungs Clear, Normal Breath Sounds, No Accessory Muscle Use, No Respiratory Distress Cardiovascular: Regular Rate, Rhythm, No Edema, No Gallop, No JVD, No Murmur, Normal Peripheral Pulses Gastrointestinal: Normal Bowel Sounds, No Organomegaly, No Pulsatile Mass, Non Tender, Soft Back: Normal Inspection, No CVA Tenderness, No Vertebral Tenderness Extremity: Normal Capillary Refill, Normal Inspection, Normal Range of Motion (Right leg in immobilizer), Non Tender, No Calf Tenderness, No Pedal Edema Neurologic/Psychiatric: Alert, Oriented x3, No Motor/Sensory Deficits, Normal Mood/Affect, shoe puller II-XII Norm as Tested, Abnormal Gait, Motor Weakness (Right leg) Skin: Normal Color, Warm/Dry Lymphatic: No Adenopathy Results/Procedures Lab Patient resulted labs reviewed. FIM Transfers Therapy Code Descriptions/Definitions Functional [place] Measure: 0=Not Assessed/NA 4=Minimal Assistance 1=Total Assistance 5=Supervision or Setup 2=Maximal Assistance 6=Modified [place] 3=Moderate Assistance 7=Complete IndependenceSCALE: Activities may be completed with or without assistive devices. 3-Dtgscmxoax-zrgvewp completes the activity by him/herself with no assistance from a helper. 5-Set-up or Clean-up Assistance-helper sets up or cleans up; patient completes activity. [place] assists only prior to or following the activity. 4-Supervision or Touching Assistance-helper provides verbal cues and/or touching/steadying and/or contact guard assistance as patient completes activity. Assistance may be provided throughout the activity or intermittently. 3-Partial/Moderate Assistance-helper does LESS THAN HALF the effort. [place] lifts, holds or supports trunk or limbs, but provides less than half the effort. 2-Substantial/Maximal Assistance-helper does MORE THAN HALF the effort. [place] lifts or holds trunk or limbs and provides more than half the effort. 1-Ykkclxfnw-pxykfg does ALL the effort. Patient does none of the effort to complete the activity. Or, the assistance of 2 or more helpers is required for the patient to complete the activity. If activity was not attempted, code reason: 7-Patient Refused. 9-Not Applicable-not attempted and the patient did not perform the activity before the current illness, exacerbation or injury. 10-Not Attempted due to Environmental Limitations-(lack of equipment, weather restraints, etc.). 88-Not Attempted due to Medical Conditions or Safety Concerns. Roll Left to Right (QC): 5 Sit to Lying (QC): 5 Sit to Stand (QC): 5 Chair/Oyw-pr-Pawqr Xfer(QC): 5 Car Transfer (QC): 3 Gait Training Does the Patient Walk?: Yes Distance: 30', 15' Walk 10 feet (QC): 5 Walk 50 ft with 2 Turns(QC): 3 Walk 150 ft (QC): 88 Walking 10ft/uneven surface-QC: 88 Gait Persons Needed: 1 Gait Assistive Device: FWW Wheelchair Training Does the Pt Use a Wheelchair?: Yes Distance: 30 Wheel 50 ft with 2 turns (QC): 6 Wheel 150 ft (QC): 4 Type of Wheelchair: Manual Stair Training Stair Training: Handrails/: uses walker #of Steps: 1 1 Step (curb) (QC): 3 4 Steps (QC): 88 12 Steps (QC): 88 Stairs: Pattern: Hops Balance Picking up an Object (QC): 3 ADL-Treatment Eating (QC): 6 (Pt is IND per pt report. ) Oral Hygiene (QC): 6 Shower/Bathe Self (QC): 4 (Pt required CGA when standing to wash backside and andrew area, able to wash all parts, utilizing a LHS.) Upper Body Dressing (QC): 5 Lower Body Dressing (QC): 4 On/Off Footwear (QC): 4 (Pt requires VC's when doffing socks w/ craniologist and when donning R gripper sock w/ sock aide. ) Toileting Hygiene (QC): 4 Toilet Transfer (QC): 4 Assessment/Plan Assessment and Plan Assess & Plan/Chief Complaint Assessment: Status post right patellar fracture now in immobilizer status post uncomplicated repair Acute blood loss anemia requiring transfusion Recent GI bleed requiring transfusion Iron deficiency on iron infusions CAD recent stent Depression Constipation laxatives ordered [place]cl[place] cath in place now discontinued Hyponatremia requiring fluid restriction along with salt tablets on 02/22/2021 then DC'd for patient request Nosebleed UTI placed on Omnicef by PCP on 02/24/2021 Plan: Transfuse as necessary Supportive care Inpatient rehab protocol Regain independence Immobilizer 02/19/2021: Supportive care Aggressive therapy Add potassium 02/20/2021: Maintain pain control Bowel regimen 02/21/2021: Continue pain control Monitor hemoglobin Refuses iron infusion 02/22/2021: Immobilizer management Supportive care Fluid restriction 02/23/2021: Dramatic improvement in pain with old brace Check meds and labs 02/24/2021: Nosebleed management UTI treatment 02/25/2021: UTI treatment Appreciate Dr. Carvalho 02/26/2021: DC potassium pills Monitor closely 02/27/2021: Supportive care Pain control 02/28/2021: Supportive care 03/01/2021: Supportive care Discharge plan on Monday03/02/2021: Supportive care Discharge home tomorrow (1) Right patella fracture Status: Acute (2) CAD (coronary artery disease) (3) Stented coronary artery (4) History of GI bleed (5) Transfusion of blood during current hospitalisation (6) Low BMI (7) Risk for falls (8) Depression (9) Constipation (10) Severe anemia Status: Acute CASIE COSTA DO Mar 02, 2021 08:56
[2021-03-02] MEDS ORDERED: PARO10TA3 PO (08:59)
[2021-03-02] MEDS ORDERED: TRM50T PO (08:59)
[2021-03-02] MEDS ORDERED: PANT40TA52 PO (08:59)
--- NOTE | 2021-03-02 09:02 | D/C HH Face to Face Order ---
D/C Face to Face Orders Reconcile Patient Problems Problems Reviewed?: Yes Instructions for Patient Via [facility], Patient Instructions/FollowUp: Dr Mccormick 2 weeks Physician to follow Patient: Anny Discharge Diet for Home: No Restrictions Patient Problems: Right patella fracture Goals for Patient: [place] Patient Data-Allergies,Ht & Wt Patient Allergies: Coded Allergies: Penicillins (Verified Allergy, Mild, Skin rash Several years ago, 02/16/21) hydrocodone (Verified Allergy, Mild, The patient states that the hydrocodone made her feel "goofy, 02/16/21) Home Health Need/Face to Face Date of Face to Face: Mar 02, 2021 Clinical Findings: Generalized weakness and fatigue, Instability, Muscle weakness, Non or partial weight bearing, Pain with ambulation, Unsteady gait I have seen Pt kmlq-es-hmco: Yes Discharged To: Home Diagnosis/Conditions: Right patella fracture Patient is Homebound due to: Ligia fall risk due to instabilty, Muscle weakness, Non-weight bearing, Pain w/ambulation Homebound Status Due to the above stated illness, injury or surgical procedure (medical con dition or diagnosis) and associated clinical findings, the patient is homebound because of his/her inability to leave home except with aid of a supportive device and/or person AND leaving the home requires a considerable and taxing effort or is medically contraindicated. Pt req the following assistanc: Walker, Wheelchair Home Health Nursing Orders Home Health Services Order: Nursing Services, Catechist-Evaluate & Treat, Physical Therapy-Evaluate & Treat Certify Stmt I certify that this patient is under my care and that I, a nurse practitioner or a physician; a technical support assistant working with me, had a face to face encounter that - meets the physician face to face encounter requirements with this patient as dated. CASIE COSTA DO Mar 02, 2021 09:02
[2021-03-02] MEDS: DOCUSATE SODIUM 100 MG (COLACE) CAP PO SCH ×2 (09:03→19:31)
[2021-03-02] MEDS: polyethylene glycoL POWDER 17 GM (MIRALAX) PACK PO SCH ×2 (09:03→19:31)
[2021-03-02] MEDS: SENNA W/DOCUSATE (SENOKOT S) TABLET PO SCH ×2 (09:03→19:31)
--- NOTE | 2021-03-02 09:35 | Occupational Ther Daily Note ---
OT Current Status-Daily Note Subjective Pt denies pain, agreeable to treatment. Appearance Pt returned to supine in bed, all needs within reach at end of treatment. Mental Status/Objective Patient Orientation: Person, Place, Time, Situation ADL-Treatment Therapy Code Descriptions/Definitions Functional [place] Measure: 0=Not Assessed/NA 4=Minimal Assistance 1=Total Assistance 5=Supervision or Setup 2=Maximal Assistance 6=Modified [place] 3=Moderate Assistance 7=Complete IndependenceSCALE: Activities may be completed with or without assistive devices. 9-Ctdjyjzzsb-usbzabc completes the activity by him/herself with no assistance from a helper. 5-Set-up or Clean-up Assistance-helper sets up or cleans up; patient completes activity. [place] assists only prior to or following the activity. 4-Supervision or Touching Assistance-helper provides verbal cues and/or touching/steadying and/or contact guard assistance as patient completes activity. Assistance may be provided throughout the activity or intermittently. 3-Partial/Moderate Assistance-helper does LESS THAN HALF the effort. [place] lifts, holds or supports trunk or limbs, but provides less than half the effort. 2-Substantial/Maximal Assistance-helper does MORE THAN HALF the effort. [place] lifts or holds trunk or limbs and provides more than half the effort. 9-Qkmakdzll-txnqor does ALL the effort. Patient does none of the effort to complete the activity. Or, the assistance of 2 or more helpers is required for the patient to complete the activity. If activity was not attempted, code reason: 7-Patient Refused. 9-Not Applicable-not attempted and the patient did not perform the activity before the current illness, exacerbation or injury. 10-Not Attempted due to Environmental Limitations-(lack of equipment, weather restraints, etc.). 88-Not Attempted due to Medical Conditions or Safety Concerns. Eating (QC): 6 Oral Hygiene (QC): 6 Shower/Bathe Self (QC): 5 (if performing a full shower, pt will need assist with covering immobolizer. ) Upper Body Dressing (QC): 6 Lower Body Dressing (QC): 6 On/Off Footwear: 6 Toileting Hygiene (QC): 6 Toilet Transfer (QC): 6 Pt declines shower, agreeable to sponge bath. Task completed seated at sink. She was able to reach/wash all body parts without assist. RLE not addressed secondary to immobolizer. She washed buttocks while performing lateral pelvic leans. She retrieved and donned clothing while seated in the w/c. Extra time to thread RLE into clothing, but no physical assist or cues needed. Good recall to thread R first this date. No unsteadiness and good adherence to NWB when standing to manage clothing up to waist. She donned socks seated at EOB. OT provided use of sock aid, yet pt was able to reach R foot by bending at waist this date. Other Treatment Education/instruction on w/c management including locking brakes, and removing/placing footrests. Education OT Patient Education: Correct positioning, Energy conservation, Modified ADL techniques, Progress toward Goal/Update tx plan, Purpose of tx/functional activities, W/C management Teaching Recipient: Patient Teaching Methods: Demonstration, Discussion Response to Teaching: Verbalize Understanding, Return Demonstration OT Short Term Goals Short Term Goals Time Frame: Feb 26, 2021 Eatin Oral hygiene: 4 Toileting hygiene: 4 Shower/bathe self: 4 Upper body dressin Lower body dressin Putting on/taking off footwear: 4 OT Senior Care Goals Senior Care Goals Time Frame: Mar 12, 2021 Eating (QC): 6 Oral Hygiene (QC): 6 Toileting Hygiene (QC): 6 Shower/Bathe Self (QC): 5 Upper Body Dressing (QC): 6 Lower Body Dressing (QC): 5 On/Off Footwear (QC): 6 1=Demonstrate adherence to instructed precautions during ADL tasks. 2=Patient will verbalize/demonstrate understanding of assistive devices/modifications for ADL. 3=Patient will improve strength/tolerance for activity to enable patient to perform ADL's. OT Education/Plan Problem List/Assessment Assessment: Decreased UE Strength, Impaired I ADL's Discharge Recommendations Plan/Recommendations: Continue POC Equpiment Recommendations-D/C: Toilet Riser with Rails, Bath Chair, Clinical Microbiologist Treatment Plan/Plan of Care Treatment,Training & Education: Yes Patient would benefit from OT for education, treatment and training to promote independence in ADL's, mobility, safety and/or upper extremity function for ADL's. Plan of Care: ADL Retraining, Functional Mobility, Group Exercise/Act as Ind, UE Funct Exercise/Act Treatment Duration: Mar 12, 2021 Frequency: At least 5 of 7 days/Wk (IRF) Estimated Hrs Per Day: 1.5 hours per day Agreement: Yes Rehab Potential: Fair Time/GCodes Start Time: 08:35 Stop Time: 09:35 Total Time Billed (hr/min): 60 Billed Treatment Time 1 visit, ADL x4 Sis Bragg OT Mar 02, 2021 09:35
--- NOTE | 2021-03-02 11:51 | Physical Therapy Daily Note ---
PT Daily Note-Current Subjective Pt in bed upon arrival and agrees to tx, has no c/o pain prior to tx. During tx, pt states brace is causing pain in back of mid-thigh and that she feels light headed. Pain Location: Posterior, Right Location Body Site: Thigh Mental Status Patient Orientation: Person, Place, Time, Situation Transfers SCALE: Activities may be completed with or without assistive devices. 7-Khklqrykss-ztyvdai completes the activity by him/herself with no assistance from a helper. 5-Set-up or Clean-up Assistance-helper sets up or cleans up; patient completes activity. Cord assists only prior to or following the activity. 4-Supervision or Touching Assistance-helper provides verbal cues and/or to uching/steadying and/or contact guard assistance as patient completes activity. Assistance may be provided throughout the activity or intermittently. 3-Partial/Moderate Assistance-helper does LESS THAN HALF the effort. Cord lifts, holds or supports trunk or limbs, but provides less than half the effort. 2-Substantial/Maximal Assistance-helper does MORE THAN HALF the effort. Cord lifts or holds trunk or limbs and provides more than half the effort. 2-Cmnaprmqf-xaejeg does ALL the effort. Patient does none of the effort to complete the activity. Or, the assistance of 2 or more helpers is required for the patient to complete the activity. If activity was not attempted, code reason: 7-Patient Refused. 9-Not Applicable-not attempted and the patient did not perform the activity before the current illness, exacerbation or injury. 10-Not Attempted due to Environmental Limitations-(lack of equipment, weather restraints, etc.). 88-Not Attempted due to Medical Conditions or Safety Concerns. Roll Left & Right (QC): 6 Sit to Lying (QC): 6 Lying to Sitting/Side of Bed(Q: 6 Sit to Stand (QC): 6 Chair/Ede-hf-Tvjlo Xfer(QC): 6 Toilet Transfer (QC): 6 Car Transfer (QC): 6 Weight Bearing Right Lower Extremity: Right Non Weight Bearing Gait Training Does the Patient Walk?: Yes Distance: 50', 25' Walk 10 feet (QC): 5 Walk 50 ft with 2 Turns(QC): 5 Walk 150 ft (QC): 88 Walking 10ft/uneven surface-QC: 5 Gait Persons Needed: 1 Gait Assistive Device: FWW Pt amb 50' with 2 turns and at least 10' over an uneven surface, SBA and WC follow d/t pt easily fatigued. Wheelchair Training Does the Pt Use a Wheelchair?: Yes Wheel 50 ft with 2 turns (QC): 6 Wheel 150 ft (QC): 6 Type of Wheelchair: Manual Pt able to propel 150' with rest breaks throughout Stair Training Stair Training: Handrails/: uses walker #of Steps: 1 1 Step (curb) (QC): 4 4 Steps (QC): 7 12 Steps (QC): 88 Stairs: Pattern: Hops Pt completes curb step w/ FWW, refuses to complete 4 steps and states she can have somebody carry her up the 2 steps at her house. Balance Picking up an Object (QC): 6 Special Test Comments Pt instructed to supervisor opening and picking cone from ground while standing, able to complete with no LOB Exercises Supine Ex: Bridging, Ankle pumps, Rolling, Scooting, Straight leg raise, Hip abd/add Treatments [id number]: Pt in bed upon arrival and agrees to tx. Pt completes bed mobility and supine ex, then sits EOB. Pt request to use toilet and amb to bathroom SBA, able to doff/don pants and clean self Ind. OT enters tx at this time. [id number] Co-treat: Pt amb 50' on ARU, then sits in WC. Pt edu on mechanics of personal WC, shown how to lock/unlock chair and place/remove foot rest. Pt then propels WC to car and completes car transfer SBA. Pt edu on possibly using backseat of car or reclining passenger seat so pt can place R LE into car while extended. Pt then transfers back to and enters therapy gym. Pt R leg rest of WC is unable to elevate, attempted to place board under R LE to hold up and keep extension but it wasn't successful. Leg rest from PT WC placed on pt WC for today, SW contacted and new leg rest should be ordered/delivered before DC tomorrow. OT exits tx at this time. 1115-12: Pt amb on uneven surface, picks cone up from ground, and completes curb step. Pt then propels WC 150' on ARU and returns to room. Pt transfers to bed, sit to supine and is able to positioning B LE Ind. in bed. Pt remains in bed with all needs met, call light in hand. Assessment Current Status: Fair Progress Pt needs new R leg rest for private WC that is able to lift and keep R LE in ex tension. Pt ready to DC tomorrow PT Short Term Goals Short Term Goals Time Frame: Mar 03, 2021 Roll Left & Right: 5 Sit to lyin Lying to sitting on side of be: 5 Sit to stand: 5 Chair/uzs-lt-tthod transfer: 5 Toilet transfer: 5 Car transfer: 5 Walk 10 feet: 5 Walk 50 feet with two turns: 5 Walk 150 feet: 4 Does pt use a wc or scooter: No Wheel 50ft w/2 turns: 6 Wheel 150 feet: 5 Type: Manual PT Dormitory Counselor Goals Dormitory Counselor Goals PT Prison Goals Time Frame: Mar 23, 2021 Roll Left & Right (QC): 6 Sit to Lying (QC): 6 Lying-Sitting on Side/Bed(QC): 6 Sit to Stand (QC): 6 Chair/Nfj-su-Rtfbx Xfer(QC): 6 Toilet Transfer (QC): 6 Car Transfer (QC): 6 Does the Patient Walk: Yes Walk 10 feet (QC): 6 Walk 50ft with 2 Turns (QC): 6 Walk 150 ft (QC): 5 Walking 10ft on Uneven Surface: 4 1 Step (curb) (QC): 4 4 Steps (QC): 4 12 Steps (QC): 4 Picking up an Object (QC): 6 Does the Pt use WC or Scooter?: Yes Wheel 50 feet with 2 turns (QC: 6 Wheel 150 feet: 6 Type: Manual PT Plan Treatment/Plan Treatment Plan: Continue Plan of Care Treatment Plan: Bed Mobility, Education, Functional Activity [place], Functional Strength, Group Therapy, Gait, Safety, Therapeutic Exercise, Transfers Treatment Duration: Apr 21, 2021 Frequency: At least 5 of 7 days/Wk (IRF) Estimated Hrs Per Day: 1.5 hours per day Patient and/or Family Agrees t: Yes Safety Risks/Education Patient Education: Gait Training, Transfer Techniques, Steps, W/C Management, Safety Issues Teaching Recipient: Patient Teaching Methods: Demonstration, Discussion Response to Teaching: Verbalize Understanding, Return Demonstration Time/GCodes Time In: 1030 Time Out: 12 Total Billed Treatment Time: 90 Total Billed Treatment 1, GT x2, FA x4 [facility] Mar 02, 2021 11:51
--- NOTE | 2021-03-02 12:11 | Occupational Ther Daily Note ---
OT Current Status-Daily Note Subjective Pt reports fatigue at OT arrival, requires encouragement to continue. Appearance Left sitting in therapy gym with physical therapist. Mental Status/Objective Patient Orientation: Person, Place, Time, Situation ADL-Treatment Therapy Code Descriptions/Definitions Functional [place] Measure: 0=Not Assessed/NA 4=Minimal Assistance 1=Total Assistance 5=Supervision or Setup 2=Maximal Assistance 6=Modified [place] 3=Moderate Assistance 7=Complete IndependenceSCALE: Activities may be completed with or without assistive devices. 6-Obfhuumfap-tymcjws completes the activity by him/herself with no assistance from a helper. 5-Set-up or Clean-up Assistance-helper sets up or cleans up; patient completes activity. Cost assists only prior to or following the activity. 4-Supervision or Touching Assistance-helper provides verbal cues and/or touching/steadying and/or contact guard assistance as patient completes activity. Assistance may be provided throughout the activity or intermittently. 3-Partial/Moderate Assistance-helper does LESS THAN HALF the effort. Cost lifts, holds or supports trunk or limbs, but provides less than half the effort. 2-Substantial/Maximal Assistance-helper does MORE THAN HALF the effort. Cost lifts or holds trunk or limbs and provides more than half the effort. 2-Jnztjhvyg-ephfye does ALL the effort. Patient does none of the effort to complete the activity. Or, the assistance of 2 or more helpers is required for the patient to complete the activity. If activity was not attempted, code reason: 7-Patient Refused. 9-Not Applicable-not attempted and the patient did not perform the activity before the current illness, exacerbation or injury. 10-Not Attempted due to Environmental Limitations-(lack of equipment, weather restraints, etc.). 88-Not Attempted due to Medical Conditions or Safety Concerns. Toileting Hygiene (QC): 6 Toilet Transfer (QC): 6 Pt hopping to bathroom with PT at OT arrival. Mod I for toileting. Other Treatment co-treat with PT due to limited endurance/activity tolerance and education for safety. Pt's personal w/c arrived. OT/PT educated pt on pieces and correct use. Current W/c does not have elevated foot rest and pt appears to have slight flexion in knee when resting leg on floor. OT discussed with rehabilitation worker about getting pt an elevated foot rest for personal w/c. At this time, pt utilizing hospital elevated foot rest. Pt propelled w/c throughout unit cues only to lock brakes prior to transfer. Fatigues easily this afternoon and requires several rest breaks. Education OT Patient Education: Correct positioning, Energy conservation, Modified ADL techniques, Progress toward Goal/Update tx plan, Purpose of tx/functional activi ties, Rehab process, Safety issues, W/C management Teaching Recipient: Patient Teaching Methods: Demonstration, Discussion Response to Teaching: Verbalize Understanding, Return Demonstration OT Short Term Goals Short Term Goals Time Frame: Feb 26, 2021 Eatin Oral hygiene: 4 Toileting hygiene: 4 Shower/bathe self: 4 Upper body dressin Lower body dressin Putting on/taking off footwear: 4 OT Access Services Assistant Goals Access Services Assistant Goals Time Frame: Mar 12, 2021 Eating (QC): 6 Oral Hygiene (QC): 6 Toileting Hygiene (QC): 6 Shower/Bathe Self (QC): 5 Upper Body Dressing (QC): 6 Lower Body Dressing (QC): 5 On/Off Footwear (QC): 6 1=Demonstrate adherence to instructed precautions during ADL tasks. 2=Patient will verbalize/demonstrate understanding of assistive devices/modifications for ADL. 3=Patient will improve strength/tolerance for activity to enable patient to perform ADL's. OT Education/Plan Problem List/Assessment Assessment: Decreased Activ Tolerance, Decreased UE Strength, Impaired I ADL's Discharge Recommendations Plan/Recommendations: Discharge/Goals Met Therapy Discharge Recommendati: Bath Aide Target Placement home with home health Treatment Plan/Plan of Care Treatment,Training & Education: Yes Patient would benefit from OT for education, treatment and training to promote independence in ADL's, mobility, safety and/or upper extremity function for ADL's. Plan of Care: ADL Retraining, Functional Mobility, Group Exercise/Act as Ind, UE Funct Exercise/Act Treatment Duration: Mar 12, 2021 Frequency: At least 5 of 7 days/Wk (IRF) Estimated Hrs Per Day: 1.5 hours per day Agreement: Yes Rehab Potential: Fair Time/GCodes Start Time: 10:45 Stop Time: 11:15 Total Time Billed (hr/min): 30 Billed Treatment Time 1 visit, Sis Guallpa OT Mar 02, 2021 12:11
--- NOTE | 2021-03-02 12:43 | Progress Note ---
Subjective Date Seen by a Provider: Mar 02, 2021 Time Seen by a Provider: 12:40 Subjective/Events-last exam Fwup Right patellar fracture, Acute on Chronic Anemia, CAD, Hx. of PUD, Anxiety, epistasis, hyponatremia, right lung mass, UTI, HTN. Plan is to go home tomorrow with home health and in home care. Objective Exam Vital Signs Date Time Temp Pulse Resp B/P (MAP) Pulse Ox O2 Delivery O2 Flow Rate FiO2 03/02/21 08:58 Room Air 03/02/21 07:30 36.2 62 14 140/64 (89) 97 Room Air 03/01/21 20:30 Room Air 03/01/21 20:00 36.6 67 16 140/67 (91) 96 Room Air I & O 03/02/21 07:00 Intake Total 780 ml Output Total 850 ml Balance -70 ml Capillary Refill : General Appearance: No Apparent Distress Neck: Supple Respiratory: Lungs Clear Cardiovascular: Regular Rate, Rhythm Gastrointestinal: normal bowel sounds, non tender, soft Extremity: Non Tender, No Calf Tenderness, Pedal Edema (improving to RLE), Other (knee immobilizer in place) Neurologic/Psychiatric: Alert, Oriented x3 Skin: Warm/Dry Results Lab Microbiology 02/24/21 Urine Culture - Final, Complete Enterobacter Cloacae Complex Enterobacter cloacae complex Assessment/Plan Assessment/Plan Assess & Plan/Chief Complaint 1. Right Patellar Fracture--S/P surgery, pain control, in knee immobilizer with no weight bearing so doing PT/OT, no lovenox done due to recent GI bleed and post-op anemia requiring blood transfusion, home tomorrow with and in home ca re 2. Acute on Chronic Anemia--History of Bleeding Ulcer and Post-op Anemia--S/P transfusion, H/H stable, iron started 3. History of Bleeding Ulcer--on protonix BID 4. CAD--back on plavix, aspirin held due to nosebleed 5. Anxiety--on paxil 6. Constipation--improved 7. Acute Epistaxis on left--resolved so Dr. Carvalho did not have to cauterize, will use afrin with nasal packing prn if returns and started on saline nasal mist 8. UTI--growing out Enterobacter Cloacae--on Cefdinir 9. Hyponatremia--improved 10. Hypertension--improving since DC of NaCl 11. Hypokalemia--improved without oral K ROBSON MO DO Mar 02, 2021 12:43
[2021-03-02 20:09] VITALS: BP 156/64
[2021-03-03] MEDS: ACETAMINOPHEN 500 MG TAB (TYLENOL) PO PRN ×2 (00:07→08:40)
[2021-03-03] MEDS: PANTOPRAZOLE 40 MG (PROTONIX) TAB PO SCH (05:58)
--- NOTE | 2021-03-03 06:57 | Discharge Summary ---
Diagnosis/Chief Complaint Date of Admission Feb 18, 2021 at 13:25 Date of Discharge Discharge Date: Mar 03, 2021 Discharge Diagnosis Assessment: Status post right patellar fracture now in immobilizer status post uncomplicated repair Acute blood loss anemia requiring transfusion Recent GI bleed requiring transfusion Iron deficiency on iron infusions CAD recent stent Depression Constipation laxatives ordered Mcclure cath in place now discontinued Hyponatremia requiring fluid restriction along with salt tablets on 02/22/2021 then DC'd for patient request Nosebleed UTI placed on Omnicef by PCP on 02/24/2021 Plan: Transfuse as necessary Supportive care Inpatient rehab protocol Regain independence Immobilizer 02/19/2021: Supportive care Aggressive therapy Add potassium 02/20/2021: Maintain pain control Bowel regimen 02/21/2021: Continue pain control Monitor hemoglobin Refuses iron infusion 02/22/2021: Immobilizer management Supportive care Fluid restriction 02/23/2021: Dramatic improvement in pain with old brace Check meds and labs 02/24/2021: Nosebleed management UTI treatment 02/25/2021: UTI treatment Appreciate Dr. Carvalho 02/26/2021: DC potassium pills Monitor closely 02/27/2021: Supportive care Pain control 02/28/2021: Supportive care 03/01/2021: Supportive care Discharge plan on Monday03/02/2021: Supportive care Discharge home tomorrow (1) Right patella fracture Status: Acute (2) CAD (coronary artery disease) (3) Stented coronary artery (4) History of GI bleed (5) Transfusion of blood during current hospitalisation (6) Low BMI (7) Risk for falls (8) Depression (9) Constipation (10) Severe anemia Status: Acute Discharge Summary Discharge Physical Examination Allergies: Coded Allergies: Penicillins (Verified Allergy, Mild, Skin rash Several years ago, 02/16/21) hydrocodone (Verified Allergy, Mild, The patient states that the hydrocodone made her feel "goofy, 02/16/21) Vitals & I&Os Vital Signs Date Time Temp Pulse Resp B/P (MAP) Pulse Ox O2 Delivery O2 Flow Rate FiO2 03/03/21 13:28 36.6 86 16 142/66 97 Room Air General Appearance: Alert, Oriented X3, Cooperative Respiratory: Clear to Auscultation Cardiovascular: Regular Rate Psych/Mental Status: Mental Status NL Hospital Course Was the Problem List Reviewed?: Yes Hospital Course: Pt had an uneventful hospital course for 14 days. She was admitted for right patella fracture s/p repair. Pt overall had no new issues except for UTI. She did have some loose diarrhea, PCP managed most of those medical issues and overall she was deemed stable for DC. She was able to have private caregivers in her home and will have a close follow up in the meantime. Labs (last 24 hrs) Laboratory Tests 02/18/21 13:25: Lab Scanned Report Referred Lab Report 02/19/21 06:05: White Blood Count 8.0, Red Blood Count 3.49L, Hemoglobin 9.3L, Hematocrit 29L, Mean Corpuscular Volume 84, Mean Corpuscular Hemoglobin 27, Mean Corpuscular Hemoglobin Concent 32, Red Cell Distribution Width 17.3H, Platelet Count 180, Mean Platelet Volume 9.2, Immature Granulocyte % (Auto) 0, Neutrophils (%) (Auto) 82H, Lymphocytes (%) (Auto) 7L, Monocytes (%) (Auto) 7, Eosinophils (%) (Auto) 3, Basophils (%) (Auto) 0, Neutrophils # (Auto) 6.6, Lymphocytes # (Auto) 0.6L, Monocytes # (Auto) 0.6, Eosinophils # (Auto) 0.2, Basophils # (Auto) 0.0, Immature Granulocyte # (Auto) 0.0, Sodium Level 133L, Potassium Level 3.3L, Chloride Level 102, Carbon Dioxide Level 22, Anion Gap 9, Blood Urea Nitrogen 7, Creatinine 0.58L, Estimat Glomerular Filtration Rate 100, BUN/Creatinine Ratio 12, Glucose Level 99, Calcium Level 8.1L, Corrected Calcium 8.9, Total Bilirubin 0.9, Aspartate Amino Transf (AST/SGOT) 11, Alanine Aminotransferase (ALT/SGPT) 9, Alkaline Phosphatase 77, Total Protein 5.2L, Albumin 3.0L 02/22/21 05:46: White Blood Count 6.7, Red Blood Count 3.52L, Hemoglobin 9.6L, Hematocrit 30L, Mean Corpuscular Volume 85, Mean Corpuscular Hemoglobin 27, Mean Corpuscular Hemoglobin Concent 32, Red Cell Distribution Width 18.5H, Platelet Count 189, Mean Platelet Volume 9.3, Immature Granulocyte % (Auto) 0, Neutrophils (%) (Auto) 67, Lymphocytes (%) (Auto) 15, Monocytes (%) (Auto) 10, Eosinophils (%) (Auto) 6, Basophils (%) (Auto) 1, Neutrophils # (Auto) 4.5, Lymphocytes # (Auto) 1.0, Monocytes # (Auto) 0.7, Eosinophils # (Auto) 0.4H, Basophils # (Auto) 0.1, Immature Granulocyte # (Auto) 0.0, Sodium Level 128L, Potassium Level 3.9, Chloride Level 99, Carbon Dioxide Level 20L, Anion Gap 9, Blood Urea Nitrogen 11, Creatinine 0.58L, Estimat Glomerular Filtration Rate 100, BUN/Creatinine Ratio 19, Glucose Level 94, Calcium Level 8.2L, Corrected Calcium 9.1, Total Bilirubin 0.8, Aspartate Amino Transf (AST/SGOT) 13, Alanine Aminotransferase (ALT/SGPT) 8, Alkaline Phosphatase 87, Total Protein 5.3L, Albumin 2.9L 02/24/21 13:05: Urine Color YELLOW, Urine Clarity SL CLOUDY, Urine pH 6.5, Urine Specific [place] 1.015L, Urine Protein NEGATIVE, Urine Glucose (UA) NEGATIVE, Urine Ketones NEGATIVE, Urine Nitrite POSITIVEH, Urine Bilirubin NEGATIVE, Urine Urobilinogen 1.0, Urine Leukocyte Esterase 2+H, Urine RBC (Auto) 1+H, Urine RBC RARE, Urine WBC 50-100H, Urine Squamous Epithelial Cells RARE, Urine Crystals NONE, Urine Bacteria MODERATEH, Urine Casts NONE, Urine Mucus NEGATIVE, Urine Culture Indicated YES 02/25/21 05:16: White Blood Count 6.1, Red Blood Count 3.73L, Hemoglobin 10.2L, Hematocrit 32L, Mean Corpuscular Volume 85, Mean Corpuscular Hemoglobin 27, Mean Corpuscular Hemoglobin Concent 32, Red Cell Distribution Width 18.6H, Platelet Count 268, Mean Platelet Volume 9.5, Sodium Level 129L, Potassium Level 4.1, Chloride Level 99, Carbon Dioxide Level 20L, Anion Gap 10, Blood Urea Nitrogen 13, Creatinine 0.60, Estimat Glomerular Filtration Rate 96, BUN/Creatinine Ratio 22, Glucose Level 102, Calcium Level 8.5 03/01/21 05:10: White Blood Count 5.3, Red Blood Count 3.96, Hemoglobin 10.9L, Hematocrit 35, Mean Corpuscular Volume 88, Mean Corpuscular Hemoglobin 28, Mean Corpuscular Hemoglobin Concent 31L, Red Cell Distribution Width 20.0H, Platelet Count 384, Mean Platelet Volume 9.6, Sodium Level 135, Potassium Level 4.2, Chloride Level 102, Carbon Dioxide Level 21, Anion Gap 12, Blood Urea Nitrogen 22H, Creatinine 0.69, Estimat Glomerular Filtration Rate 81, BUN/Creatinine Ratio 32, Glucose Level 100, Calcium Level 8.9, Immature Granulocyte % (Auto) 0, Neutrophils (%) (Auto) 64, Lymphocytes (%) (Auto) 19, Monocytes (%) (Auto) 9, Eosinophils (%) (Auto) 5, Basophils (%) (Auto) 2, Neutrophils # (Auto) 3.4, Lymphocytes # (Auto) 1.0, Monocytes # (Auto) 0.5, Eosinophils # (Auto) 0.3, Basophils # (Auto) 0.1, Immature Granulocyte # (Auto) 0.0, Corrected Calcium 9.3, Total Bilirubin 0.6, Aspartate Amino Transf (AST/SGOT) 15, Alanine Aminotransferase (ALT/SGPT) 9, Alkaline Phosphatase 78, Total Protein 6.2L, Albumin 3.5 Microbiology 02/24/21 Urine Culture - Final, Complete Enterobacter Cloacae Complex Enterobacter cloacae complex Pending Labs Microbiology Date/Time Source Procedure Growth Status 02/24/21 13:05 Urine Clean Catch Urine Culture - Final Enterobacter Cloacae Complex Enterobacter cloacae complex Complete Laboratory Tests 02/18/21 13:25: Lab Scanned Report Referred Lab Report 02/19/21 06:05: White Blood Count 8.0, Red Blood Count 3.49, Hemoglobin 9.3, Hematocrit 29, Mean Corpuscular Volume 84, Mean Corpuscular Hemoglobin 27, Mean Corpuscular Hemoglobin Concent 32, Red Cell Distribution Width 17.3, Platelet Count 180, Mean Platelet Volume 9.2, Immature Granulocyte % (Auto) 0, Neutrophils (%) (Auto) 82, Lymphocytes (%) (Auto) 7, Monocytes (%) (Auto) 7, Eosinophils (%) (Auto) 3, Basophils (%) (Auto) 0, Neutrophils # (Auto) 6.6, Lymphocytes # (Auto) 0.6, Monocytes # (Auto) 0.6, Eosinophils # (Auto) 0.2, Basophils # (Auto) 0.0, Immature Granulocyte # (Auto) 0.0, Sodium Level 133, Potassium Level 3.3, Chloride Level 102, Carbon Dioxide Level 22, Anion Gap 9, Blood Urea Nitrogen 7, Creatinine 0.58, Estimat Glomerular Filtration Rate 100, BUN/Creatinine Ratio 12, Glucose Level 99, Calcium Level 8.1, Corrected Calcium 8.9, Total Bilirubin 0.9, Aspartate Amino Transf (AST/SGOT) 11, Alanine Aminotransferase (ALT/SGPT) 9, Alkaline Phosphatase 77, Total Protein 5.2, Albumin 3.0 02/22/21 05:46: White Blood Count 6.7, Red Blood Count 3.52, Hemoglobin 9.6, Hematocrit 30, Mean Corpuscular Volume 85, Mean Corpuscular Hemoglobin 27, Mean Corpuscular Hemoglobin Concent 32, Red Cell Distribution Width 18.5, Platelet Count 189, Mean Platelet Volume 9.3, Immature Granulocyte % (Auto) 0, Neutrophils (%) (Auto) 67, Lymphocytes (%) (Auto) 15, Monocytes (%) (Auto) 10, Eosinophils (%) (Auto) 6, Basophils (%) (Auto) 1, Neutrophils # (Auto) 4.5, Lymphocytes # (Auto) 1.0, Monocytes # (Auto) 0.7, Eosinophils # (Auto) 0.4, Basophils # (Auto) 0.1, Immature Granulocyte # (Auto) 0.0, Sodium Level 128, Potassium Level 3.9, Chloride Level 99, Carbon Dioxide Level 20, Anion Gap 9, Blood Urea Nitrogen 11, Creatinine 0.58, Estimat Glomerular Filtration Rate 100, BUN/Creatinine Ratio 19, Glucose Level 94, Calcium Level 8.2, Corrected Calcium 9.1, Total Bilirubin 0.8, Aspartate Amino Transf (AST/SGOT) 13, Alanine Aminotransferase (ALT/SGPT) 8, Alkaline Phosphatase 87, Total Protein 5.3, Albumin 2.9 02/24/21 13:05: Urine Color YELLOW, Urine Clarity SL CLOUDY, Urine pH 6.5, Urine Specific [place] 1.015, Urine Protein NEGATIVE, Urine Glucose (UA) NEGATIVE, Urine Ketones NEGATIVE, Urine Nitrite POSITIVE, Urine Bilirubin NEGATIVE, Urine Urobilinogen 1.0, Urine Leukocyte Esterase 2+, Urine RBC (Auto) 1+, Urine RBC RARE, Urine WBC 50-100, Urine Squamous Epithelial Cells RARE, Urine Crystals NONE, Urine Bacteria MODERATE, Urine Casts NONE, Urine Mucus NEGATIVE, Urine Culture Indicated YES 02/25/21 05:16: White Blood Count 6.1, Red Blood Count 3.73, Hemoglobin 10.2, Hematocrit 32, Mean Corpuscular Volume 85, Mean Corpuscular Hemoglobin 27, Mean Corpuscular Hemoglobin Concent 32, Red Cell Distribution Width 18.6, Platelet Count 268, Mean Platelet Volume 9.5, Sodium Level 129, Potassium Level 4.1, Chloride Level 99, Carbon Dioxide Level 20, Anion Gap 10, Blood Urea Nitrogen 13, Creatinine 0.60, Estimat Glomerular Filtration Rate 96, BUN/Creatinine Ratio 22, Glucose Level 102, Calcium Level 8.5 03/01/21 05:10: White Blood Count 5.3, Red Blood Count 3.96, Hemoglobin 10.9, Hematocrit 35, Mean Corpuscular Volume 88, Mean Corpuscular Hemoglobin 28, Mean Corpuscular Hemoglobin Concent 31, Red Cell Distribution Width 20.0, Platelet Count 384, Mean Platelet Volume 9.6, Sodium Level 135, Potassium Level 4.2, Chloride Level 102, Carbon Dioxide Level 21, Anion Gap 12, Blood Urea Nitrogen 22, Creatinine 0.69, Estimat Glomerular Filtration Rate 81, BUN/Creatinine Ratio 32, Glucose Level 100, Calcium Level 8.9, Immature Granulocyte % (Auto) 0, Neutrophils (%) (Auto) 64, Lymphocytes (%) (Auto) 19, Monocytes (%) (Auto) 9, Eosinophils (%) (Auto) 5, Basophils (%) (Auto) 2, Neutrophils # (Auto) 3.4, Lymphocytes # (Auto) 1.0, Monocytes # (Auto) 0.5, Eosinophils # (Auto) 0.3, Basophils # (Auto) 0.1, Immature Granulocyte # (Auto) 0.0, Corrected Calcium 9.3, Total Bilirubin 0.6, Aspartate Amino Transf (AST/SGOT) 15, Alanine Aminotransferase (ALT/SGPT) 9, Alkaline Phosphatase 78, Total Protein 6.2, Albumin 3.5 Discharge Home Medications: Active Scripts Active Pantoprazole Sodium 40 Mg Tablet.dr 40 Mg PO BIDAC Paroxetine HCl 10 Mg Tablet 10 Mg PO DAILY Tramadol HCl 50 Mg Tablet 50 Mg PO Q6H PRN Reported [Balance Of Nature] 1 Ea PO DAILY Clopidogrel (Clopidogrel Bisulfate) 75 Mg Tablet 75 Mg PO 1200 Instructions to patient/family Please see electronic discharge instructions given to patient. Diagnosis/Problems Diagnosis/Problems (1) Right patella fracture Status: Acute (2) CAD (coronary artery disease) (3) Stented coronary artery (4) History of GI bleed (5) Transfusion of blood during current hospitalisation (6) Low BMI (7) Risk for falls (8) Depression (9) Constipation (10) Severe anemia Status: Acute CASIE COSTA DO Mar 03, 2021 06:57
[2021-03-03 08:00] VITALS: BP 142/66
[2021-03-03] MEDS: PARoxetine 10 MG (PAXIL) TAB PO SCH (08:40)
[2021-03-03] MEDS: CLOPIDOGREL 75 MG (PLAVIX) TABLET PO SCH (08:40)
[2021-03-03] MEDS: DOCUSATE SODIUM 100 MG (COLACE) CAP PO SCH (08:46)
[2021-03-03] MEDS: polyethylene glycoL POWDER 17 GM (MIRALAX) PACK PO SCH (08:46)
[2021-03-03] MEDS: SENNA W/DOCUSATE (SENOKOT S) TABLET PO SCH (08:47)
[2021-03-03 13:28] VITALS: BP 142/66
--- NOTE | 2021-03-03 15:31 | Therapy Team Discharge Summary ---
Therapy Discharge Summary Discharge Recommendations Date of Discharge Mar 03, 2021 at 13:28 Therapy D/C Recommendations: Bath Aide, Occupational Therapy Home Care, Homemaker Support Occupational Therapy Pt presents to ARU following trauma to R knee and s/p patella tendon repair. NWB RLE with a knee immobilizer. At time of eval, pt was min-mod a for toileting, footwear, lb dressing, bathing, oral care, sba for upper body dressing, and set up for eating. While on rehab, OT focused on improving balance, UE strength, endurance, energy conservation, safety, and compensatory/adaptive techniques all while maintaining NWB on RLE. 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 She is now mod I for all adls except bathing which she is set up for. Pt is now discharge from the hospital and will be discharged from OT. Decreased Activ Tolerance, Decreased UE Strength, Impaired I ADL's PT [facility] Goals Breadman Goals PT Senior Care Goals Time Frame: Mar 23, 2021 Roll Left to Right (QC): 6 Sit to Lying (QC): 6 Lying-Sitting on Side/Bed(QC): 6 Sit to Stand (QC): 6 Chair/Qsb-nj-Qphct Xfer(QC): 6 Car Transfer (QC): 6 Does the Patient Walk: Yes Walk 10 feet (QC): 6 Walk 10ft-Uneven Surface(QC): 4 Walk 50ft with 2 Turns (QC): 6 Walk 150 ft (QC): 5 Does the Pt use WC or Scooter?: Yes Wheel 50 feet with 2 turns (QC: 6 1 Step (curb) (QC): 4 4 Steps (QC): 4 12 Steps (QC): 4 Picking up an Object (QC): 6 OT [facility] Goals Senior Care Goals Time Frame: Mar 12, 2021 Eating (QC): 6 (met) Oral Hygiene (QC): 6 (met) Shower/Bathe Self (QC): 5 (met) Upper Body Dressing (QC): 6 (met) Lower Body Dressing (QC): 5 (met) On/Off Footwear (QC): 6 (met) Toileting Hygiene (QC): 6 (met) Toilet/Commode Transfer (QC): 6 (met) 1=Demonstrate adherence to instructed precautions during ADL tasks. 2=Patient will verbalize/demonstrate understanding of assistive devices/modifications for ADL. 3=Patient will improve strength/tolerance for activity to enable patient to perform ADL's. Sis Bragg OT Mar 03, 2021 15:31
--- NOTE | 2021-03-03 15:31 | Therapy Team Discharge Summary ---
Therapy Discharge Summary Discharge Recommendations Date of Discharge Mar 03, 2021 at 13:28 Physical Therapy Patient came to rehab R patellar fx s/p repair. Upon evaluation patient performed supine <-> sit with SBA, sit <-> stand and transfers min/mod assist, car transfer min/mod assist, ambulated 10' with a rolling walker with min/mod assist, propelled a manual WC 30' with SBA, and picked up an object from the floor with min assist. Patient has been performing bed mobility and transfer training, balance and endurance training, functional strengthening, stair traini ng, gait training, and education. 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 Patient has been discharged from this facility and will be discharged from PT at this time. Occupational Therapy Decreased Activ Tolerance, Decreased UE Strength, Impaired I ADL's PT Senior Living Goals Loadmaster Goals PT Loadmaster Goals Time Frame: Mar 23, 2021 Roll Left to Right (QC): 6 Sit to Lying (QC): 6 Lying-Sitting on Side/Bed(QC): 6 Sit to Stand (QC): 6 Chair/[id number] Xfer(QC): 6 Car Transfer (QC): 6 Does the Patient Walk: Yes Walk 10 feet (QC): 6 Walk 10ft-Uneven Surface(QC): 4 Walk 50ft with 2 Turns (QC): 6 Walk 150 ft (QC): 5 Does the Pt use WC or Scooter?: Yes Wheel 50 feet with 2 turns (QC: 6 1 Step (curb) (QC): 4 4 Steps (QC): 4 12 Steps (QC): 4 Picking up an Object (QC): 6 OT Senior Living Goals Senior Living Goals Time Frame: Mar 12, 2021 Eating (QC): 6 Oral Hygiene (QC): 6 Shower/Bathe Self (QC): 5 Upper Body Dressing (QC): 6 Lower Body Dressing (QC): 5 On/Off Footwear (QC): 6 Toileting Hygiene (QC): 6 Toilet/Commode Transfer (QC): 6 1=Demonstrate adherence to instructed precautions during ADL tasks. 2=Patient will verbalize/demonstrate understanding of assistive devices/modifications for ADL. 3=Patient will improve strength/tolerance for activity to enable patient to perform ADL's. CHEKO BURGESS PT Mar 03, 2021 15:31
== END 2021-03-03 13:28 | disposition home health service (06) | DRG 560 ==
PROVIDERS: ADMIT Internal Medicine; ATTEND Internal Medicine
DX: S82.001D Unspecified fracture of right patella, subsequent encounter for closed fracture with routine healing (principal); D62 Acute posthemorrhagic anemia; E46 Unspecified protein-calorie malnutrition; Z68.1 Body mass index [BMI] 19.9 or less, adult; R64 Cachexia; N39.0 Urinary tract infection, site not specified; E87.1 Hypo-osmolality and hyponatremia; R26.81 Unsteadiness on feet; R35.0 Frequency of micturition; R04.0 Epistaxis; I25.10 Atherosclerotic heart disease of native coronary artery without angina pectoris; I11.0 Hypertensive heart disease with heart failure; I50.9 Heart failure, unspecified; F32.A Depression, unspecified; K59.00 Constipation, unspecified; E87.6 Hypokalemia; F41.9 Anxiety disorder, unspecified; I73.9 Peripheral vascular disease, unspecified; K27.9 Peptic ulcer, site unspecified, unspecified as acute or chronic, without hemorrhage or perforation; E78.00 Pure hypercholesterolemia, unspecified; M19.91 Primary osteoarthritis, unspecified site; B96.89 Other specified bacterial agents as the cause of diseases classified elsewhere; Z91.81 History of falling; Z88.6 Allergy status to analgesic agent; Z88.0 Allergy status to penicillin; Z95.5 Presence of coronary angioplasty implant and graft; Z79.02 Long term (current) use of antithrombotics/antiplatelets; Z79.82 Long term (current) use of aspirin; W22.8XXD Striking against or struck by other objects, subsequent encounter
CPT/HCPCS: 36415; 80048; 80053; 81000; 85025; 85027; 87077; 87088; 87186; 94640; 94760

== ENCOUNTER → 2021-03-17 | Outpatient (CLI) | payer MEDICARE ==
[~2021-03-17] MED LIST changes: -ACETAMINOPHEN 500 MG TAB (TYLENOL) PO PRN; -BISACODYL 10 MG SUPP (DULCOLAX) PR PRN; -DOCUSATE SODIUM 100 MG (COLACE) CAP PO PRN; -FLEET ENEMA ADULT 1 EA BTL PR PRN; -LACTULOSE SYRUP 10GM/15ML (ENULOSE) 30ML UDC PO PRN; -MELATONIN 3 MG TABLET PO PRN; -ONDANSETRON 4 MG (ZOFRAN) ORAL DISSOLVE TAB PO PRN; -diphenhydrAMINE 25 MG TAB (BENADRYL) PO PRN; -guaiFENesin/CODEINE (ROBITUSSIN AC) 10ML UDC PO PRN
== END ==
LOC: ORTHO 09:03
PROVIDERS: ATTEND Orthopaedic Surgery
DX: S82.001A Unspecified fracture of right patella, initial encounter for closed fracture (principal); X58.XXXA Exposure to other specified factors, initial encounter

== ENCOUNTER 2021-03-25 11:09 | Outpatient (RCR) | payer MEDICARE | END 2021-04-23 | disposition home or self-care (01) | LOC: ONC 11:09 | PROVIDERS: ATTEND Radiology Radiation Oncology | DX: R91.1 Solitary pulmonary nodule (principal); J44.9 Chronic obstructive pulmonary disease, unspecified; I25.10 Atherosclerotic heart disease of native coronary artery without angina pectoris; Z87.891 Personal history of nicotine dependence | CPT/HCPCS: 77293; 77300; 77301; 77336; 77338; 77370; 77373; 77470 ==

== ENCOUNTER → 2021-04-26 | Outpatient (CLI) | payer MEDICARE | LOC: ORTHO 11:35 | PROVIDERS: ATTEND Orthopaedic Surgery | DX: S82.001A Unspecified fracture of right patella, initial encounter for closed fracture (principal); X58.XXXA Exposure to other specified factors, initial encounter ==

== ENCOUNTER → 2021-05-17 | Outpatient (CLI) | payer MEDICARE | LOC: ORTHO 09:45 | PROVIDERS: ATTEND Orthopaedic Surgery | DX: S82.001D Unspecified fracture of right patella, subsequent encounter for closed fracture with routine healing (principal); X58.XXXD Exposure to other specified factors, subsequent encounter ==

== ENCOUNTER 2021-05-18 11:00 | Day surgery (SDC) | payer MEDICARE ==
[~2021-05-18] VITALS: Ht 170 cm; Wt 36.0 kg
--- OUTSIDE RECORDS SUMMARY | 2021-05-18 09:15 | XMS REPORT | CCD ---
Author Author Erica Mccormick D.O. Organization [facility] Address [address] [place] [address] Phone Care Team Providers Care Study Director Name Role Phone PP Unavailable CCM Unavailable Summary Purpose Interface Exchange Insurance Providers Payer name Policy type / Coverage type Covered constitution party ID Effective Begin Date Effective End Date WPS MEDICARE PART B [place] Medicare Part B [id number] Unknown Unknown [employer] [place] [employer] [place] MEDIC[place] Medicare Part B X [id number] Unknown Unknown Family History Family History data not found Social History Social History Element Codes Description Effective Dates Marital status Unknown 09/10/2019 Number of children Unknown 1 09/10/2019 Employment Unknown Retired 09/10/[address]: 4919115 Former smoker quit 201109/10/[address]: 957229 Currently drinks alcohol 09/09 Frequency of drinks SNOMED CT: 593061657 1-4 drinks per week Allergies, Adverse Reactions, [...] Problems Condition Codes Effective Dates Condition Status Abnormal weight loss ICD-10: R63.4 ICD-9: 783.21 07/20/2020 Active Coronary artery arteriosclerosis ICD-10: I25.10 ICD-9: 414.00 09/10/2019 Active Fatigue ICD-10: R53.83 ICD-9: 780.79 11/22/2019 Active Mass of right lung ICD-10: R91.8 ICD-9: 786.6 07/29/2020 Active Right patella fracture ICD-10: S82.001A ICD-9: 822.0 05/05/2021 Active Blood loss anemia ICD-10: D50.0 ICD-9: 280.0 12/30/2020 Active Essential (primary) hypertension ICD-10: I10 ICD-9: 401.9 09/10/2019 Active Hematuria ICD-10: R31.9 ICD-9: 599.70 01/25/2021 Active Urinary tract infection ICD-10: N39.0 ICD-9: 599.0 04/30/2020 Active Anxiety ICD-10: F41.9 ICD-9: 300.00 12/30/2020 Active Duodenal ulcer ICD-10: K26.9 ICD-9: 532.90 12/30/2020 Active GERD (gastroesophageal reflux disease) ICD-10: K21.9 ICD-9: 530.81 12/30/2020 Active Edema ICD-10: R60.9 ICD-9: 782.3 12/21/2020 Active Insomnia ICD-10: G47.00 ICD-9: 780.52 04/09/2020 Active Pulmonary nodule ICD-10: R91.1 ICD-9: 793.11 11/10/2020 Active Stress reaction ICD-10: F43.0 ICD-9: 308.9 11/10/2020 Active History of melanoma ICD-10: Z85.820 ICD-9: V10.82 07/20/2020 Active Lymphadenopathy of head and neck ICD-10: R59.1 ICD-9: 785.6 07/20/2020 Active Skin lesion ICD-10: L98.9 ICD-9: 709.9 07/20/2020 Active Depressed mood with feeling of [...] Instructions pantoprazole 20 mg tablet,delayed release RxNorm: 055009 1 Tablet(s) Oral two times a day 05/06/2021 11/01/2021 Active tramadol 50 mg tablet RxNorm: 091773 1 Tablet(s) Oral t wo times a day as needed for pain 03/15/2021 No Stop Date Active ferrous sulfate 325 mg (65 mg iron) tablet RxNorm: 923233 Take 1 Tablet(s) Oral QD 01/28/2021 05/04/2021 Inactive pantoprazole 20 mg tablet,delayed release RxNorm: 683452 1 Tablet(s) Oral two times a day 12/22/2020 12/22/2020 Inactive paroxetine 20 mg tablet RxNorm: 8350890 1 Tablet(s) Oral QD 05/04/2021 Inactive pantoprazole 20 mg tablet,delayed release RxNorm: 174453 1 Tablet(s) Oral two times a day 12/22/2020 12/22/2020 Inactive paroxetine 20 mg tablet RxNorm: 8800004 1 Tablet(s) Oral QD 021 12/15/2020 Inactive paroxetine 20 mg tablet RxNorm: 7459503 1 Tablet(s) Oral QD 021 12/15/2020 Inactive MagOx 400 mg (241.3 mg magnesium) tablet RxNorm: 191933 Take 1 Tablet(s) Oral every night at bedtime with melatonin 11/23/2020 01/24/2021 Inactive melatonin 3 mg tablet RxNorm: 985409 Take 1-2 Tablet(s) Oral every night at bedtime 11/18/2020 No Stop Date Active Plavix 75 mg tablet RxNorm: 562711 Take 1 Tablet(s) Oral QD No Stop Date Active trazodone 50 mg tablet RxNorm: 120123 Take 1-2 Tablet(s ) Oral QPM as needed for sleep 11/10/2020 11/22/2020 Inactive atorvastatin 40 mg tablet RxNorm: 950862 Take 1 Tablet( s) Oral every night at bedtime 11/10/2020 05/04/2021 Inactive alprazolam 0.25 mg tablet RxNorm: 178873 2-1 Tablet(s ) Oral QPM as needed for sleep 08/03/2020 09/01/2020 Inactive alprazolam 0.25 mg tablet RxNorm: 020698 /2-1 Tablet(s ) Oral QPM as needed for sleep 08/03/2020 08/02/2020 Inactive Aspirin Low Dose 81 mg tablet,delayed release RxNorm: 245912 1 Tablet(s) Oral QD 09/10/2019 No Stop Date Active carvedilol 6.25 mg tablet RxNorm: 058268 1 Tablet(s) Oral two t imes a day 09/10/2019 11/09/2020 Inactive Fish Oil 1,000 mg (120 mg-180 mg) capsule RxNorm: 1 Caps ule(s) Oral QD 09/10/2019 11/25/2019 Inactive losartan 25 mg tablet RxNorm: 317562 1 Tablet(s) Oral QD 09/10/2019 0 05/04/2021 Inactive Medication Administered No Medication Administered data Immunizations No Immunization data Results Observation Observation Code Item Item Code Result Date S ervice Location GFR CALC [id number] GFR Non Afr Amr >60 mL/min 04/30/2021 Un known GFR CALC [id number] GFR Afr Amr >60 mL/min 04/30/2021 Unknow n COMPREHENSIVE METABOLIC 29566 AST 13 U/L 2021 Unknown COMPREHENSIVE METABOLIC 54447 ALT 12 U/L 2021 Unknown COMPREHENSIVE METABOLIC 27207 BUN 15 mg/dL 2021 Unknown COMPREHENSIVE METABOLIC 74745 ALBUMIN 4.0 g/dL 2021 Unknown COMPREHENSIVE METABOLIC 85315 CHLORIDE 103 mmol/L 04/30 Unknown COMPREHENSIVE METABOLIC 27169 Bili Total 0.4 mg/dL 04/30 Unknown COMPREHENSIVE METABOLIC 21791 ALK PHOS 75 U/L 2021 Unknown COMPREHENSIVE METABOLIC 61618 SODIUM 136 mmol/L 04/30 Unknown COMPREHENSIVE METABOLIC 88214 CREATININE 0.69 mg/dL 10/2021 Unknown COMPREHENSIVE METABOLIC 33296 CALCIUM 8.9 mg/dL 2021 Unknown COMPREHENSIVE METABOLIC 14825 POTASSIUM 4.3 mmol/L 04/30 Unknown COMPREHENSIVE METABOLIC 04380 Total Protein 6.7 g/dL Unknown COMPREHENSIVE METABOLIC 73588 Glucose 94 mg/dL 2021 Unknown COMPREHENSIVE METABOLIC 07070 Bicarbonate 25 mmol/L 10/2021 Unknown COMPREHENSIVE METABOLIC 77265 AGAP 8 mmol/L 2021 Unknown COMPLETE BLOOD COUNT [id number] WBC 4.6 10e9/L 04/30/19 22 Unknown COMPLETE BLOOD COUNT [id number] RBC 3.76 10e12/L 2021 Unknown COMPLETE BLOOD COUNT [id number] HEMOGLOBIN 10.9 g/dL 04/30/19 22 Unknown COMPLETE BLOOD COUNT [id number] HEMATOCRIT 35.3 % 04/30/19 22 Unknown COMPLETE BLOOD COUNT [id number] MCV 93.9 fL 2 Unknown COMPLETE BLOOD COUNT [id number] MCH 29.0 pg 2 Unknown COMPLETE BLOOD COUNT [id number] MCHC 30.9 g/dL 2 Unknown COMPLETE BLOOD COUNT [id number] PLATELET COUNT 254 10e9/L 10/2021 Unknown COMPLETE BLOOD COUNT 1377518 Mean Plt Volume 9.0 fL 10/2021 Unknown COMPLETE BLOOD COUNT [id number] Neut Auto 73.2 % 2 Unknown COMPLETE BLOOD COUNT [id number] Lymph Auto 14.3 % 04/30/19 22 Unknown COMPLETE BLOOD COUNT [id number] [place] Auto 8.1 % 2 Unknown COMPLETE BLOOD COUNT [id number] RDW 17.8 % 2 Unknown COMPLETE BLOOD COUNT [id number] Eos Auto 3.7 % 2 Unknown COMPLETE BLOOD COUNT [id number] Baso Auto 0.7 % 2 Unknown COMPLETE BLOOD COUNT [id number] Neutrophil Abs 3.37 10e9/L Unknown COMPLETE BLOOD COUNT [id number] Lymphocyte Abs 0.66 10e9/L Unknown COMPLETE BLOOD COUNT [id number] Monocyte Abs 0.37 10e9/L 10/2021 Unknown COMPLETE BLOOD COUNT [id number] Eosinophil Abs 0.17 10e9/L Unknown COMPLETE BLOOD COUNT [id number] RDW-SD 59.5 fL 2 Unknown COMPLETE BLOOD COUNT [id number] Basophil Abs 0.03 10e9/L /0 10/2021 Unknown UA W/MICR 17371 UA Protein TNP:Specimen Not Received Unknown UA W/MICR 48919 UA Hemoglobin TNP:Specimen Not Received 02/17/2021 Unknown UA W/MICR 17847 UA Glucose TNP:Specimen Not Received Unknown UA W/MICR 76426 UA Ketones TNP:Specimen Not Received Unknown UA W/MICR 56458 UA pH TNP:Specimen Not Received Unknown UA W/MICR 56854 U Spec [place] TNP:Specimen Not Received 02/17/2021 Unknown UA W/MICR 48897 UA Bilirubin TNP:Specimen Not Received 02/17/2021 Unknown UA W/MICR 76353 UA Leuk Ester[place] TNP:Specimen Not Receive d 02/17/2021 Unknown UA W/MICR 54492 UA Nitrite TNP:Specimen Not Received Unknown UA W/MICR 30976 UA WBC/hpf TNP:Specimen Not Received Unknown UA W/MICR 85386 UA RBC hpf TNP:Specimen Not Received Unknown UA W/MICR 93868 UA Protein TNP:Specimen Integrity 01/27 Unknown UA W/MICR 39241 UA Hemoglobin TNP:Specimen Integrity Unknown UA W/MICR 80094 UA Glucose TNP:Specimen Integrity 01/27 Unknown UA W/MICR 66886 UA Ketones TNP:Specimen Integrity 01/27 Unknown UA W/MICR 51417 UA pH TNP:Specimen Integrity 2020 Unknown UA W/MICR 76821 U Spec [place] TNP:Specimen Integrity 1 Unknown UA W/MICR 59550 UA Bilirubin TNP:Specimen Integrity 09/2020 Unknown UA W/MICR 16253 UA Leuk Ester[place] TNP:Specimen Integrity 01/27/2021 Unknown UA W/MICR 02133 UA Nitrite TNP:Specimen Integrity 01/27 Unknown UA W/MICR 53556 UA WBC/hpf TNP:Specimen Integrity 01/27 Unknown UA W/MICR 16518 UA RBC hpf TNP:Specimen Integrity 01/27 Unknown COMPLETE BLOOD COUNT [id number] WBC 6.1 10e9/L 01/26/20 21 Unknown COMPLETE BLOOD COUNT [id number] RBC 3.34 10e12/L 2020 Unknown COMPLETE BLOOD COUNT [id number] HEMOGLOBIN 8.8 g/dL 01/26/20 21 Unknown COMPLETE BLOOD COUNT [id number] HEMATOCRIT 28.5 % 01/26/20 21 Unknown COMPLETE BLOOD COUNT [id number] MCV 85.3 fL 1 Unknown COMPLETE BLOOD COUNT [id number] MCH 26.3 pg 1 Unknown COMPLETE BLOOD COUNT [id number] MCHC 30.9 g/dL 1 Unknown COMPLETE BLOOD COUNT 0597039 PLATELET COUNT 268 10e9/L 07/2020 Unknown COMPLETE BLOOD COUNT [id number] Mean Plt Volume 8.7 fL 07/2020 Unknown COMPLETE BLOOD COUNT 8286330 Neut Auto 67.7 % 1 Unknown COMPLETE BLOOD COUNT [id number] Lymph Auto 19.4 % 01/26/20 21 Unknown COMPLETE BLOOD COUNT [id number] [place] Auto 8.4 % 1 Unknown COMPLETE BLOOD COUNT 4958640 RDW 16.7 % 1 Unknown COMPLETE BLOOD COUNT 0338704 Eos Auto 3.8 % 1 Unknown COMPLETE BLOOD COUNT [id number] Baso Auto 0.7 % 1 Unknown COMPLETE BLOOD COUNT [id number] Neutrophil Abs 4.13 10e9/L Unknown COMPLETE BLOOD COUNT [id number] Lymphocyte Abs 1.18 10e9/L Unknown COMPLETE BLOOD COUNT [id number] Monocyte Abs 0.51 10e9/L 07/2020 Unknown COMPLETE BLOOD COUNT [id number] Eosinophil Abs 0.23 10e9/L Unknown COMPLETE BLOOD COUNT [id number] RDW-SD 50.9 fL 1 Unknown COMPLETE BLOOD COUNT [id number] Basophil Abs 0.04 10e9/L 07/2020 Unknown GFR CALC [id number] GFR Non Afr Amr >60 mL/min 01/25/2021 Un known GFR CALC [id number] GFR Afr Amr >60 mL/min 01/25/2021 Unknow n COMPREHENSIVE METABOLIC 57766 AST 17 U/L 2020 Unknown COMPREHENSIVE METABOLIC 06806 ALT 13 U/L 2020 Unknown COMPREHENSIVE METABOLIC 89652 BUN 14 mg/dL 2020 Unknown COMPREHENSIVE METABOLIC 14732 ALBUMIN 4.1 g/dL 2020 Unknown COMPREHENSIVE METABOLIC 23147 CHLORIDE 102 mmol/L 01/25 Unknown COMPREHENSIVE METABOLIC 88336 Bili Total 0.4 mg/dL 01/25 Unknown COMPREHENSIVE METABOLIC 81452 ALK PHOS 85 U/L 2020 Unknown COMPREHENSIVE METABOLIC 42676 SODIUM 134 mmol/L 01/25 Unknown COMPREHENSIVE METABOLIC 20833 CREATININE 0.71 mg/dL 07/2020 Unknown COMPREHENSIVE METABOLIC 34316 CALCIUM 9.3 mg/dL 2020 Unknown COMPREHENSIVE METABOLIC 63280 POTASSIUM 4.3 mmol/L 01/25 Unknown COMPREHENSIVE METABOLIC 00605 Total Protein 7.0 g/dL Unknown COMPREHENSIVE METABOLIC 22425 Glucose 111 mg/dL 2020 Unknown COMPREHENSIVE METABOLIC 62441 Bicarbonate 24 mmol/L 07/2020 Unknown COMPREHENSIVE METABOLIC 80206 AGAP 8 mmol/L 2020 Unknown COMPREHENSIVE METABOLIC 68690 AST 16 U/L 2019 Unknown COMPREHENSIVE METABOLIC 23691 ALT 12 U/L 2019 Unknown COMPREHENSIVE METABOLIC 13546 BUN 13 mg/dL 2019 Unknown COMPREHENSIVE METABOLIC 28581 ALBUMIN 4.1 g/dL 2019 Unknown COMPREHENSIVE METABOLIC 12212 CHLORIDE 96 mmol/L 2019 Unknown COMPREHENSIVE METABOLIC 32383 Bili Total 1.1 mg/dL 04/09 Unknown COMPREHENSIVE METABOLIC 15574 ALK PHOS 80 U/L 2019 Unknown COMPREHENSIVE METABOLIC 76583 SODIUM 131 mmol/L 04/09 Unknown COMPREHENSIVE METABOLIC 68806 CREATININE 0.76 mg/dL 03/24 Unknown COMPREHENSIVE METABOLIC 45646 CALCIUM 9.0 mg/dL 2019 Unknown COMPREHENSIVE METABOLIC 56372 POTASSIUM 4.2 mmol/L 04/09 Unknown COMPREHENSIVE METABOLIC 75271 Total Protein 6.8 g/dL Unknown COMPREHENSIVE METABOLIC 63617 Glucose 101 mg/dL 2019 Unknown COMPREHENSIVE METABOLIC 77830 Bicarbonate 25 mmol/L 03/24 Unknown COMPREHENSIVE METABOLIC 13575 AGAP 10 mmol/L 2019 Unknown GFR CALC [id number] GFR Non Afr Amr >60 mL/min 04/09/2020 Un known GFR CALC [id number] GFR Afr Amr >60 mL/min 04/09/2020 Unknow n GAMMA GLUTAMYL TRANSFERASE 60118 GGT 19 U/L Unknown COMPLETE BLOOD COUNT [id number] WBC 6.3 10e9/L 04/07/20 20 Unknown COMPLETE BLOOD COUNT [id number] RBC 4.36 10e12/L 2019 Unknown COMPLETE BLOOD COUNT [id number] HEMOGLOBIN 15.2 g/dL 04/07/20 20 Unknown COMPLETE BLOOD COUNT [id number] HEMATOCRIT 43.8 % 04/07/20 20 Unknown COMPLETE BLOOD COUNT 1116900 MCV 100.5 fL 0 Unknown COMPLETE BLOOD COUNT 6110902 MCH 34.9 pg 0 Unknown COMPLETE BLOOD COUNT 9581122 MCHC 34.7 g/dL 0 Unknown COMPLETE BLOOD COUNT 0265302 PLATELET COUNT 254 10e9/L Unknown COMPLETE BLOOD COUNT 2225236 Mean Plt Volume 9.9 fL Unknown COMPLETE BLOOD COUNT 3275750 Neut Auto 63.3 % 0 Unknown COMPLETE BLOOD COUNT [id number] Lymph Auto 24.5 % 04/07/20 20 Unknown COMPLETE BLOOD COUNT 3847807 [place] Auto 8.4 % 0 Unknown COMPLETE BLOOD COUNT 8955664 RDW 12.8 % 0 Unknown COMPLETE BLOOD COUNT 0778474 Eos Auto 3.2 % 0 Unknown COMPLETE BLOOD COUNT 1879102 Baso Auto 0.6 % 0 Unknown COMPLETE BLOOD COUNT 8574384 Neutrophil Abs 3.99 10e9/L Unknown COMPLETE BLOOD COUNT [id number] Lymphocyte Abs 1.54 10e9/L Unknown COMPLETE BLOOD COUNT [id number] Monocyte Abs 0.53 10e9/L 03/24 Unknown COMPLETE BLOOD COUNT [id number] Eosinophil Abs 0.20 10e9/L Unknown COMPLETE BLOOD COUNT 1273545 RDW-SD 47.6 fL 0 Unknown COMPLETE BLOOD COUNT [id number] Basophil Abs 0.04 10e9/L 03/24 Unknown VITAMIN B 12 13198 VITAMIN B12 661 pg/mL 04/07/2020 Unkn own LIPID GROUP 46450 Cholesterol 168 mg/dL 09/30/2019 Unkno wn LIPID GROUP 13470 Triglyceride 141 mg/dL 09/30/2019 Unkn own [facility] GROUP 77944 HDL CHOLESTEROL 66 mg/dL 09/30/2019 U nknown LIPID GROUP 26014 Chol/HDL Ratio 2.55 ratio 09/30/2019 U nknown LIPID GROUP 60789 NON-HDL Chol 102 mg/dL 09/30/2019 Unkn own LIP[facility] GROUP 24402 LDL Cholesterol 74 mg/dL 09/30/2019 U nknown FREE T4 42173 T4 Free 0.76 ng/dL 09/30/2019 Unknown THYROID STIMULATING HORMONE 62453 TSH 2.186 uIU/mL 09/30/2019 Unknown GFR CALC 1143619 GFR Non Afr Amr >60 mL/min 09/30/2019 Un known GFR CALC 8676241 GFR Afr Amr >60 mL/min 09/30/2019 Unknow n COMPREHENSIVE METABOLIC 53043 AST 14 U/L 2019 Unknown COMPREHENSIVE METABOLIC 43865 ALT 11 U/L 2019 Unknown COMPREHENSIVE METABOLIC 53233 BUN 15 mg/dL 2019 Unknown COMPREHENSIVE METABOLIC 07655 ALBUMIN 4.0 g/dL 2019 Unknown COMPREHENSIVE METABOLIC 09930 CHLORIDE 96 mmol/L 2019 Unknown COMPREHENSIVE METABOLIC 82889 Bili Total 0.9 mg/dL 09/29 Unknown COMPREHENSIVE METABOLIC 60259 ALK PHOS 72 U/L 2019 Unknown COMPREHENSIVE METABOLIC 60943 SODIUM 132 mmol/L 09/29 Unknown COMPREHENSIVE METABOLIC 85310 CREATININE 0.73 mg/dL 11/2019 Unknown COMPREHENSIVE METABOLIC 65178 CALCIUM 9.1 mg/dL 2019 Unknown COMPREHENSIVE METABOLIC 38150 POTASSIUM 4.6 mmol/L 09/29 Unknown COMPREHENSIVE METABOLIC 28041 Total Protein 6.4 g/dL Unknown COMPREHENSIVE METABOLIC 26147 Glucose 97 mg/dL 2019 Unknown COMPREHENSIVE METABOLIC 33101 Bicarbonate 25 mmol/L 11/2019 Unknown COMPREHENSIVE METABOLIC 22771 AGAP 11 mmol/L 2019 Unknown COMPLETE BLOOD COUNT [id number] WBC 5.3 10e9/L 09/30/19 Unknown COMPLETE BLOOD COUNT [id number] RBC 4.16 10e12/L 2019 Unknown COMPLETE BLOOD COUNT 9577894 HEMOGLOBIN 14.1 g/dL 09/30/19 20 Unknown COMPLETE BLOOD COUNT 6874197 HEMATOCRIT 42.6 % 09/30/19 Unknown COMPLETE BLOOD COUNT 6622922 MCV 102.4 fL 0 Unknown COMPLETE BLOOD COUNT 3157358 MCH 33.9 pg 0 Unknown COMPLETE BLOOD COUNT 0634467 MCHC 33.1 g/dL 0 Unknown COMPLETE BLOOD COUNT 5410555 PLATELET COUNT 273 10e9/L 11/2019 Unknown COMPLETE BLOOD COUNT 8434188 Mean Plt Volume 9.4 fL 11/2019 Unknown COMPLETE BLOOD COUNT 3848290 Neut Auto 57.3 % 0 Unknown COMPLETE BLOOD COUNT 5980985 Lymph Auto 29.3 % 09/30/19 20 Unknown COMPLETE BLOOD COUNT 1464376 [place] Auto 7.6 % 0 Unknown COMPLETE BLOOD COUNT 4441840 RDW 13.8 % 0 Unknown COMPLETE BLOOD COUNT 5142070 Eos Auto 4.5 % 0 Unknown COMPLETE BLOOD COUNT 2294529 Baso Auto 1.3 % 0 Unknown COMPLETE BLOOD COUNT 9775787 Neutrophil Abs 3.04 10e9/L Unknown COMPLETE BLOOD COUNT [id number] Lymphocyte Abs 1.55 10e9/L Unknown COMPLETE BLOOD COUNT [id number] Monocyte Abs 0.40 10e9/L 11/2019 Unknown COMPLETE BLOOD COUNT 7623675 Eosinophil Abs 0.24 10e9/L Unknown COMPLETE BLOOD COUNT 9488436 RDW-SD 50.7 fL 0 Unknown COMPLETE BLOOD COUNT [id number] Basophil Abs 0.07 10e9/L 11/2019 Unknown Procedures Procedure Codes Date ROUTINE VENIPUNCTURE CPT-4: 78954 04/30/2021 COMPREHEN METABOLIC PANEL CPT-4: 29591 04/30/2021 COMPLETE CBC W/AUTO DIFF WBC CPT-4: 65310 04/30/2021 UA W/MICR CPT-4: 68401 02/15/2021 URINE CULTURE/ COLONY COUNT CPT-4: 05296 02/02/2021 ROUTINE VENIPUNCTURE CPT-4: 28812 01/25/2021 COMPREHEN METABOLIC PANEL CPT-4: 14060 01/25/2021 COMPLETE CBC W/AUTO DIFF WBC CPT-4: 37761 01/25/2021 URINE CULTURE/ COLONY COUNT CPT-4: 31572 01/25/2021 URINALYSIS NONAUTO W/O SCOPE CPT-4: 86606 01/25/2021 ROUTINE VENIPUNCTURE CPT-4: 70775 07/20/2020 COMPREHEN METABOLIC PANEL CPT-4: 09544 07/20/2020 ASSAY OF FREE THYROXINE CPT-4: 83690 07/20/2020 ASSAY THYROID STIM HORMONE CPT-4: 81343 07/20/2020 COMPLETE CBC W/AUTO DIFF WBC CPT-4: 42379 07/20/2020 RBC SED RATE AUTOMATED CPT-4: 12683 07/20/2020 URINALYSIS NONAUTO W/O SCOPE CPT-4: 99192 04/30/2020 URINE CULTURE/ COLONY COUNT CPT-4: 67531 04/30/2020 ROUTINE VENIPUNCTURE CPT-4: 10784 04/07/2020 COMPLETE CBC W/AUTO DIFF WBC CPT-4: 55748 04/07/2020 VITAMIN B-12 CPT-4: 12196 04/07/2020 ASSAY OF GGT CPT-4: 43376 04/07/2020 ROUTINE VENIPUNCTURE CPT-4: 06843 09/30/2019 ASSAY OF FREE THYROXINE CPT-4: 59585 09/30/2019 ASSAY THYROID STIM HORMONE CPT-4: 32544 09/30/2019 COMPREHEN METABOLIC PANEL CPT-4: 24667 09/30/2019 COMPLETE CBC W/AUTO DIFF WBC CPT-4: 64423 09/30/2019 LIPID PANEL CPT-4: 67063 09/30/2019 Vital Signs Date Vital 05/05/2021 Blood Pressure 1: 118/76 Code: 8480-6 BMI: 13.1 Code: 34260-9 Heart Rate 1: 67 bpm Height: 5'5" Code: 8302-2 Respiratory Rate: 16 bpm Temperatu re: 36.4 (C) / 97.5 (F) Weight: 79 lbs Code: 38699-8 01/25/2021 Blood Pressure 1: 102/68 Code: 8480-6 Heart Rate 1: 76 bpm Respiratory Rate: 20 bpm SpO2: 100% Temperature: 36.9 (C) / 98.5 (F) We ight: 87 lbs Code: 55140-6 12/30/2020 Blood Pressure 1: 134/80 Code: 8480-6 BMI: 14.1 Code: 65998-2 Heart Rate 1: 72 bpm Height: 5'5" Code: 8302-2 Respiratory Rate: 18 bpm SpO2: 97% Temperature: 36.6 (C) / 97.8 (F) Weight: 85 lbs Code: 93796-3 11/10/2020 Blood Pressure 1: 130/74 Code: 8480-6 Heart Rate 1: 56 bpm Respiratory Rate: 20 bpm SpO2: 98% Temperature: 36.3 (C) / 97.4 (F) We ight: 85 lbs Code: 52836-9 07/29/2020 Blood Pressure 1: 121/65 Code: 8480-6 BMI: 14.3 Code: 93518-5 Heart Rate 1: 58 bpm Height: 5'5" Code: 8302-2 Respiratory Rate: 15 bpm SpO2: 98% Temperature: 36.9 (C) / 98.4 (F) Weight: 86 lbs Code: 02360-7 07/20/2020 Blood Pressure 1: 123/69 Code: 8480-6 Heart Rate 1: 68 bpm Respiratory Rate: 15 bpm SpO2: 99% Temperature: 36.6 (C) / 97.8 (F) We ight: 83 lbs Code: 27446-9 04/30/2020 Blood Pressure 1: 128/82 Code: 8480-6 Heart Rate 1: 68 bpm Respiratory Rate: 20 bpm SpO2: 95% Temperature: 36.5 (C) / 97.7 (F) We ight: 91 lbs Code: 45976-3 04/09/2020 Blood Pressure 1: 130/78 Code: 8480-6 Heart Rate 1: 68 bpm Respiratory Rate: 20 bpm SpO2: 99% Temperature: 36.3 (C) / 97.4 (F) We ight: 90 lbs Code: 58671-6 11/22/2019 Temperature: 36.3 (C) / 97.3 (F) 09/10/2019 Blood Pressure 1: 128/72 Code: 8480-6 BMI: 15.6 Code: 56271-3 Heart Rate 1: 68 bpm Height: 5'5" Code: 8302-2 Respiratory Rate: 20 bpm SpO2: 97% Temperature: 36.6 (C) / 97.9 (F) Weight: 94 lbs Code: 05303-9 Functional Status No Functional Status data Reason For Visit Reason For Visit Effective Dates Notes follow up 05/05/2021 blood in urine 02/15/2021 urine for microscopy [...] visit Encounters Encounter Performer Location Codes Date ([id number]) OFFICE/OUTPATIENT VISIT EST Diagnosis: Mass of right lung[ICD10: R91.8] Diagnosis: Right patella fracture[ICD10: S82.001A] Diagnosis: Abnormal weight loss[ICD10: R63.4] Diagnosis: Coronary artery arteriosclerosis[ICD10: I25.10] Diagnosis: Fatigue[ICD10: R53.83] Robson Maharaj [facility] CPT-4: 91242 05/05/2021 ([id number]) NURSE/OUTPATIENT VISIT EST Diagnosis: Essential (primary) hypertension[ICD10: I10] Diagnosis: Fatigue[ICD10: R53.83] Diagnosis: Blood loss anemia[ICD10: D50.0] Robson MCCORMICK [facility] CPT-4: 68621 04/30/2021 ([id number]) NURSE/OUTPATIENT VISIT EST Diagnosis: Urinary tract infection[ICD10: N39.0] Robson MCCORMICK [facility] CPT-4: 04167 02/02/2021 ([id number]) OFFICE/OUTPATIENT VISIT EST Diagnosis: Fatigue[ICD10: R53.83] Diagnosis: Blood loss anemia[ICD10: D50.0] Diagnosis: Coronary artery disease[ICD10: I25.10] Diagnosis: Hematuria[ICD10: R31.9] Robson CHANEL [facility] CPT-4: 75434 01/25/2021 ([id number]) OFFICE/OUTPATIENT VISIT EST Diagnosis: GERD (gastroesophageal reflux disease)[ICD10: K21.9] Diagnosis: Duodenal ulcer[ICD10: K26.9] Diagnosis: Coronary artery disease[ICD10: I25.10] Diagnosis: Anxiety[ICD10: F41.9] Diagnosis: Blood loss anemia[ICD10: D50.0] Robson MCCORMICK [facility] CPT-4: 03325 12/30/2020 ([id number]) NURSE/OUTPATIENT VISIT EST Diagnosis: Edema[ICD10: R60.9] Robson MCCORMICK [facility] CPT-4: 91365 12/21/2020 ([id number]) OFFICE/OUTPATIENT VISIT EST Diagnosis: Coronary artery disease[ICD10: I25.10] Diagnosis: Essential (primary) hypertension[ICD10: I10] Diagnosis: Stress reaction[ICD10: F43.0] Diagnosis: Insomnia[ICD10: G47.00] Diagnosis: Pulmonary nodule[ICD10: R91.1] Robson MCCORMICK [facility] CPT-4: 46227 11/10/2020 ([id number]) NO CHARGE Diagnosis: Mass of upper lobe of right lung[ICD10: R91.8] Robson MCCORMICK [facility] CPT-4: 18043 07/29/2020 ([id number]) OFFICE/OUTPATIENT VISIT EST Diagnosis: Fatigue[ICD10: R53.83] Diagnosis: Lymphadenopathy of head and neck[ICD10: R59.1] Diagnosis: Weight loss, non-intentional[ICD10: R63.4] Diagnosis: History of melanoma[ICD10: Z85.820] Diagnosis: Skin lesion[ICD10: L98.9] Sara Aguila ROBSON NUNEZ [facility] CPT-4: 00089 07/20/2020 ([id number]) OFFICE/OUTPATIENT VISIT EST Diagnosis: Urinary tract infection[ICD10: N39.0] Meena Li [facility] CPT-4: 37456 04/30/2020 ([id number]) OFFICE/OUTPATIENT VISIT EST Diagnosis: Dizziness[ICD10: R42] Diagnosis: Depressed mood with feeling of loneliness[ICD10: F32.9] Diagnosis: Insomnia[ICD10: G47.00] Robson Anny CHANEL [facility] CPT-4: 40131 04/09/2020 ([id number]) NURSE/OUTPATIENT VISIT EST Diagnosis: Coronary artery disease[ICD10: I25.10] Diagnosis: Fatigue[ICD10: R53.83] Diagnosis: Essential (primary) hypertension[ICD10: I10] Robson Anny MCCORMICK [facility] CPT-4: 10019 04/07/2020 ([id number]) OFFICE/OUTPATIENT VISIT EST Diagnosis: Fatigue[ICD10: R53.83] Meena Li [facility] CPT-4: 31559 11/22/2019 ([id number]) NURSE/OUTPATIENT VISIT EST Diagnosis: Essential (primary) hypertension[ICD10: I10] Diagnosis: Coronary artery disease[ICD10: I25.10] Diagnosis: Encounter for general adult medical examination with abnormal findings[ICD10: Z00.01] Robson Anny MCCORMICK [place] CPT-4: 84763 09/30/2019 ([id number]) OFFICE/OUTPATIENT VISIT NEW Diagnosis: Essential (primary) hypertension[ICD10: I10] Diagnosis: Coronary artery disease[ICD10: I25.10] Diagnosis: Aortic valve stenosis with insufficiency[ICD10: I35.2] Robson Anny MCCORMICK [facility] CPT-4: 17809 09/10/2019 Plan of Care Planned Activity Notes Codes Status Date Visit Diagnosis Plan: Right patella fracture Discussio n: Improving Doing PT ICD-9 : 822.0 ICD-10 : S82.001A 05/05/2021 Visit Diagnosis Plan: Mass of right lung Discussion: F inished all radiation and sees Dr. Christensen in May ICD-9 : 786.6 ICD-10 : R91.8 05/05/2021 Visit Diagnosis Plan: Coronary artery arteriosclerosis Discussion: Needs to proceed with second stent ICD-9 : 414.00 ICD-10 : I25.10 05/05/2021 Appointment: Robson Mccormick WPtel: [phone] [id number] US FOLLOW UP 05/05/2021 Visit Plan: 04/30/2021 Appointment: Robson Mccormick WPtel: [phone] [id number] US LAB 04/30/2021 Appointment: Robson Mccormick WPtel: [phone] [place] [address] US scheduled by VC CANCELED 03/10/2021 Appointment: Robson Mcocrmick WPtel: [phone] patient unable to leave urine CANCELED Appointment: Robson Mccormick WPtel: [phone] [id number] US CANCELED 02/02/2021 Appointment: Robson Mccormick WPtel: [phone] [id number] US UA 02/02/2021 Care Plan: [facility] Pending 01/26/2021 Visit Diagnosis Plan: Hematuria Discussion: Culture ur ine ICD-9 : 599.70 ICD-10 : R31.9 01/25/2021 Visit Diagnosis Plan: Blood loss anemia Discussion: Aspen real CBC now ICD-9 : 280.0 ICD-10 : D50.0 01/25/2021 Appointment: Robson Mccormick WPtel: [address] [place], [place] [phone] [place] ACUTE ILLNESS 01/25/2021 Appointment: Sara Aguila WPtel: [phone] [facility] [place] CANCELED 01/01/2021 Visit Diagnosis Plan: Anxiety [...] : K21.9 12/30/2020 Appointment: Robson Mccormick WPtel: [address] [place], [place] [id number] [place] FOLLOW UP 12/30/2020 Appointment: Robson Mccormick WPtel: [address] [place], [place] [id number] NURSE SERVICES 12/21/2020 Visit Diagnosis Plan: Insomnia [...] : F43.0 11/10/2020 Appointment: Robson Mccormick WPtel: [address] [place], [place] [id number] [place] FOLLOW UP 11/10/2020 Patient Education: trazodone- [employer] Coupon [phone] [email or web address]/getResource/[email or web address] Completed 11/10/2020 Visit Diagnosis Plan: Mass of upper lobe of right lung Discussion: CT scan of lung results discussed with patient and told this looks like cancer Agrees to see pulmonology to see if will be amenable to bronchoscopy to get cells/washings ICD-9 : 786.6 ICD-10 : R91.8 07/29/2020 Appointment: Robson Mccormick WPtel: [phone] [id number] WORK IN 07/29/2020 Care Plan: Referral Order SNOMED-CT : [id number] Pending 07/29/2020 Care Plan: CT SFT TSUE NCK W/O & W/DYE L OINC : 68972-2 Pending 07/21/2020 Visit Diagnosis Plan: Fatigue Discussion: [...] 07/20/2020 Appointment: Mingo Sara WPtel: [phone] [facility] ACUTE ILLNESS 07/20/2020 Patient Education: Patient Medication [...] ICD-10 : N39.0 04/30/2020 Appointment: Meena Li [address] [place] [address] ACUTE ILLNESS 04/30/2020 Appointment: Meena Li R. [address] [place], [place] [phone] 04/21/2020 1020---patient needed seen fo r appointment [...] : F32.9 04/09/2020 Appointment: Robson Mccormick WPtel: [address] [place] [address] FOLLOW UP 04/09/2020 Care Plan: COMPREH[place] METAB[place] : 67490-9 Pending 04/09/2020 Appointment: Robson Mccormick WPtel: [address] [place] [address] [place] LAB 04/07/2020 Visit Diagnosis Plan: Fatigue Discussion: no other sym ptoms other than fatigue for 4 weeks so will update labs. order sent to [facility] for blood work and ua with c&s. instructed to call office with new or worsening symptoms. ICD-9 : 780.79 ICD-10 : R53.83 11/22/2019 Appointment: Meena Li [address] [place], [place] [phone] TELEMEDICINE 11/22/2019 Appointment: Robson Mccormick WPtel: [address] [place], [place] [phone] [place] LAB 09/30/2019 Visit Diagnosis Plan: Coronary [...] : I10 09/10/2019 Appointment: Robson Mccormick WPtel: [address] [place] [address] [place] NEW PATIENT 09/10/2019 Patient Education: carvedilol- OptimizeRX Coupon [phone] [email or web address]/resources/getResource/[email or web address] Completed 09/10/2019 Appointment: Robson Mccormick WPtel: [address] [place] [address] [place] RESCHEDULED 08/20/2019 Appointment: Robson Mccormick WPtel: [address] [place] [address] [place] CANCELED 07/22/2019 Referral: Vikram Mgauire WPtel: [address] [facility] [address] [id number] [place] Referral Appointment Requested Instructions No Instructions Medical Equipment No Medical Equipment data Health Concerns Section Health Concerns data not found Goals Section Goals data not found Interventions Section Interventions data not found Health Status Evaluations/Outcomes Section Health Status Evaluations/Outcomes data not found Advance Directives No Advance Directive data
--- OUTSIDE RECORDS SUMMARY | 2021-05-18 09:15 | XMS REPORT | CCD ---
Author Author Erica Mccormick D.O. Organization ERICKA MCCORMICK DO [facility] Address [address] [place] [address] Phone Care Team Providers Care Data Base Design Analyst Name Role Phone PP Unavailable CCM Unavailable Summary Purpose Interface Exchange Insurance Providers Payer name Policy type / Coverage type Covered libertarian ID Effective Begin Date Effective End Date WPS MEDICARE PART B [place] Medicare Part B [id number] Unknown Unknown [employer] [place] [employer] [place] MEDIC[place] Medicare Part B X [id number] Unknown Unknown Family History Family History data not found Social History Social History Element Codes Description Effective Dates Marital status Unknown 09/10/2019 Number of children Unknown 1 09/10/2019 Employment Unknown Retired 09/10/[address]: 6472590 Former smoker quit 201109/10/[address]: 678103 Currently drinks alcohol 09/09 Frequency of drinks SNOMED CT: 237551206 1-4 drinks per week Allergies, Adverse Reactions, [...] Condition Codes Effective Dates Condition Status Urinary frequency ICD-10: R35.0 ICD-9: 788.41 05/07/2021 Active Urinary tract infection ICD-10: N39.0 ICD-9: 599.0 04/30/2020 Active Abnormal weight loss ICD-10: R63.4 ICD-9: 783.21 [...] Start Date Stop Date Status Fill Instructions Cipro 250 mg tablet RxNorm: 465634 Take 1 Tablet(s) Oral Q12H 05/0705/09/2021 Active pantoprazole 20 mg tablet,delayed release RxNorm: 965367 1 Tablet(s) Oral two times a day 05/06/2021 11/01/2021 Active tramadol 50 mg tablet RxNorm: 164431 1 Tablet(s) Oral t wo times a day as needed for pain 03/15/2021 No Stop Date Active ferrous sulfate 325 mg (65 mg iron) tablet RxNorm: 151004 Take 1 Tablet(s) Oral QD 01/28/2021 05/04/2021 Inactive pantoprazole 20 mg tablet,delayed release RxNorm: 732584 1 Tablet(s) Oral two times a day 12/22/2020 12/22/2020 Inactive paroxetine 20 mg tablet RxNorm: 2414787 1 Tablet(s) Oral QD 021 05/04/2021 Inactive pantoprazole 20 mg tablet,delayed release RxNorm: 667704 1 Tablet(s) Oral two times a day 12/22/2020 12/22/2020 Inactive paroxetine 20 mg tablet RxNorm: 1322910 1 Tablet(s) Oral QD 021 12/15/2020 Inactive paroxetine 20 mg tablet RxNorm: 5334567 1 Tablet(s) Oral QD 021 12/15/2020 Inactive MagOx 400 mg (241.3 mg magnesium) tablet RxNorm: 017795 Take 1 Tablet(s) Oral every night at bedtime with melatonin 11/23/2020 01/24/2021 Inactive melatonin 3 mg tablet RxNorm: 754185 Take 1-2 Tablet(s) Oral every night at bedtime 11/18/2020 No Stop Date Active Plavix 75 mg tablet RxNorm: 884254 Take 1 Tablet(s) Oral QD 07/20/2 021 No Stop Date Active trazodone 50 mg tablet RxNorm: 868805 Take 1-2 Tablet(s ) Oral QPM as needed for sleep 11/10/2020 11/22/2020 Inactive atorvastatin 40 mg tablet RxNorm: 937010 Take 1 Tablet( s) Oral every night at bedtime 11/10/2020 05/04/2021 Inactive alprazolam 0.25 mg tablet RxNorm: 407512 1/2-1 Tablet(s ) Oral QPM as needed for sleep 08/03/2020 09/01/2020 Inactive alprazolam 0.25 mg tablet RxNorm: 494289 1/2-1 Tablet(s ) Oral QPM as needed for sleep 08/03/2020 08/02/2020 Inactive Aspirin Low Dose 81 mg tablet,delayed release RxNorm: 677266 1 Tablet(s) Oral QD 09/10/2019 No Stop Date Active carvedilol 6.25 mg tablet RxNorm: 711535 1 Tablet(s) Oral two t imes a day 09/10/2019 11/09/2020 Inactive Fish Oil 1,000 mg (120 mg-180 mg) capsule RxNorm: 1 Caps ule(s) Oral QD 09/10/2019 11/25/2019 Inactive losartan 25 mg tablet RxNorm: 713527 1 Tablet(s) Oral QD 09/10/2019 0 05/04/2021 Inactive Medication Administered No Medication Administered data Immunizations No Immunization data Results Observation Observation Code Item Item Code Result Date S [facility] Location GFR CALC 2399809 GFR Non Afr Amr >60 mL/min 04/30/2021 Un known GFR CALC 1976855 GFR Afr Amr >60 mL/min 04/30/2021 Unknow n COMPREHENSIVE METABOLIC 07384 AST 13 U/L 2021 Unknown COMPREHENSIVE METABOLIC 54750 ALT 12 U/L 2021 Unknown COMPREHENSIVE METABOLIC 68531 BUN 15 mg/dL 2021 Unknown COMPREHENSIVE METABOLIC 92219 ALBUMIN 4.0 g/dL 2021 Unknown COMPREHENSIVE METABOLIC 72212 CHLORIDE 103 mmol/L 04/30 Unknown COMPREHENSIVE METABOLIC 54306 Bili Total 0.4 mg/dL 04/30 Unknown COMPREHENSIVE METABOLIC 57530 ALK PHOS 75 U/L 2021 Unknown COMPREHENSIVE METABOLIC 43696 SODIUM 136 mmol/L 04/30 Unknown COMPREHENSIVE METABOLIC 37436 CREATININE 0.69 mg/dL 10/2021 Unknown COMPREHENSIVE METABOLIC 83905 CALCIUM 8.9 mg/dL 2021 Unknown COMPREHENSIVE METABOLIC 31585 POTASSIUM 4.3 mmol/L 04/30 Unknown COMPREHENSIVE METABOLIC 66415 Total Protein 6.7 g/dL Unknown COMPREHENSIVE METABOLIC 42544 Glucose 94 mg/dL 2021 Unknown COMPREHENSIVE METABOLIC 50325 Bicarbonate 25 mmol/L 10/2021 Unknown COMPREHENSIVE METABOLIC 83523 AGAP 8 mmol/L 2021 Unknown COMPLETE BLOOD COUNT 1113108 WBC 4.6 10e9/L 04/30/19 22 Unknown COMPLETE BLOOD COUNT [id number] RBC 3.76 10e12/L 2021 Unknown COMPLETE BLOOD COUNT 4255404 HEMOGLOBIN 10.9 g/dL 04/30/19 22 Unknown COMPLETE BLOOD COUNT [id number] HEMATOCRIT 35.3 % 04/30/19 22 Unknown COMPLETE BLOOD COUNT 8153148 MCV 93.9 fL 2 Unknown COMPLETE BLOOD COUNT [id number] MCH 29.0 pg 2 Unknown COMPLETE BLOOD COUNT 2894425 MCHC 30.9 g/dL 2 Unknown COMPLETE BLOOD COUNT [id number] PLATELET COUNT 254 10e9/L 10/2021 Unknown COMPLETE BLOOD COUNT [id number] Mean Plt Volume 9.0 fL 10/2021 Unknown COMPLETE BLOOD COUNT [id number] Neut Auto 73.2 % 2 Unknown COMPLETE BLOOD COUNT [id number] Lymph Auto 14.3 % 04/30/19 22 Unknown COMPLETE BLOOD COUNT 0527449 [place] Auto 8.1 % 2 Unknown COMPLETE BLOOD COUNT [id number] Eos Auto 3.7 % 2 Unknown COMPLETE BLOOD COUNT [id number] RDW 17.8 % 2 Unknown COMPLETE BLOOD COUNT 7105607 Baso Auto 0.7 % 2 Unknown COMPLETE BLOOD COUNT [id number] Neutrophil Abs 3.37 10e9/L Unknown COMPLETE BLOOD COUNT [id number] Lymphocyte Abs 0.66 10e9/L Unknown COMPLETE BLOOD COUNT [id number] Monocyte Abs 0.37 10e9/L 10/2021 Unknown COMPLETE BLOOD COUNT [id number] Eosinophil Abs 0.17 10e9/L Unknown COMPLETE BLOOD COUNT [id number] Basophil Abs 0.03 10e9/L 10/2021 Unknown COMPLETE BLOOD COUNT [id number] RDW-SD 59.5 fL Unknown UA W/MICR 59520 UA Protein TNP:Specimen Not Received Unknown UA W/MICR 90031 UA Hemoglobin TNP:Specimen Not Received 02/17/2021 Unknown UA W/MICR 53260 UA Glucose TNP:Specimen Not Received Unknown UA W/MICR 51905 UA Ketones TNP:Specimen Not Received Unknown UA W/MICR 10077 UA pH TNP:Specimen Not Received Unknown UA W/MICR 21856 U Spec [place] TNP:Specimen Not Received 02/17/2021 Unknown UA W/MICR 89531 UA Bilirubin TNP:Specimen Not Received 02/17/2021 Unknown UA W/MICR 53479 UA Leuk [place] TNP:Specimen Not Receive d 02/17/2021 Unknown UA W/MICR 96711 UA Nitrite TNP:Specimen Not Received Unknown UA W/MICR 26650 UA WBC/hpf TNP:Specimen Not Received Unknown UA W/MICR 93011 UA RBC hpf TNP:Specimen Not Received Unknown UA W/MICR 41862 UA Protein TNP:Specimen Integrity 01/27 Unknown UA W/MICR 33819 UA Hemoglobin TNP:Specimen Integrity Unknown UA W/MICR 60437 UA Glucose TNP:Specimen Integrity 01/27 Unknown UA W/MICR 57662 UA Ketones TNP:Specimen Integrity 01/27 Unknown UA W/MICR 21404 UA pH TNP:Specimen Integrity 2020 Unknown UA W/MICR 76109 U Spec [place] TNP:Specimen Integrity 1 Unknown UA W/MICR 59027 UA Bilirubin TNP:Specimen Integrity 09/2020 Unknown UA W/MICR 57386 UA Leuk [place] TNP:Specimen Integrity 01/27/2021 Unknown UA W/MICR 50449 UA Nitrite TNP:Specimen Integrity 01/27 Unknown UA W/MICR 34126 UA WBC/hpf TNP:Specimen Integrity 01/27 Unknown UA W/MICR 62431 UA RBC hpf TNP:Specimen Integrity 01/27 Unknown COMPLETE BLOOD COUNT [id number] WBC 6.1 10e9/L 01/26/20 21 Unknown COMPLETE BLOOD COUNT [id number] RBC 3.34 10e12/L 2020 Unknown COMPLETE BLOOD COUNT [id number] HEMOGLOBIN 8.8 g/dL 01/26/20 21 Unknown COMPLETE BLOOD COUNT [id number] HEMATOCRIT 28.5 % 01/26/20 21 Unknown COMPLETE BLOOD COUNT [id number] MCV 85.3 fL 1 Unknown COMPLETE BLOOD COUNT 6255639 MCH 26.3 pg 1 Unknown COMPLETE BLOOD COUNT 6308133 MCHC 30.9 g/dL 1 Unknown COMPLETE BLOOD COUNT 8640101 PLATELET COUNT 268 10e9/L 07/2020 Unknown COMPLETE BLOOD COUNT [id number] Mean Plt Volume 8.7 fL 07/2020 Unknown COMPLETE BLOOD COUNT [id number] Neut Auto 67.7 % 1 Unknown COMPLETE BLOOD COUNT 1050165 Lymph Auto 19.4 % 01/26/20 21 Unknown COMPLETE BLOOD COUNT [id number] [place] Auto 8.4 % 1 Unknown COMPLETE BLOOD COUNT 8373061 Eos Auto 3.8 % 1 Unknown COMPLETE BLOOD COUNT [id number] RDW 16.7 % 1 Unknown COMPLETE BLOOD COUNT 1390746 Baso Auto 0.7 % 1 Unknown COMPLETE BLOOD COUNT [id number] Neutrophil Abs 4.13 10e9/L Unknown COMPLETE BLOOD COUNT [id number] Lymphocyte Abs 1.18 10e9/L Unknown COMPLETE BLOOD COUNT [id number] Monocyte Abs 0.51 10e9/L 07/2020 Unknown COMPLETE BLOOD COUNT [id number] Eosinophil Abs 0.23 10e9/L Unknown COMPLETE BLOOD COUNT [id number] RDW-SD 50.9 fL 1 Unknown COMPLETE BLOOD COUNT [id number] Basophil Abs 0.04 10e9/L 07/2020 Unknown GFR CALC 1909020 GFR Non Afr Amr >60 mL/min 01/25/2021 Un known GFR CALC 8457806 GFR Afr Amr >60 mL/min 01/25/2021 Unknow n COMPREHENSIVE METABOLIC 23795 AST 17 U/L 2020 Unknown COMPREHENSIVE METABOLIC 04684 ALT 13 U/L 2020 Unknown COMPREHENSIVE METABOLIC 67867 BUN 14 mg/dL 2020 Unknown COMPREHENSIVE METABOLIC 74207 ALBUMIN 4.1 g/dL 2020 Unknown COMPREHENSIVE METABOLIC 56569 CHLORIDE 102 mmol/L 01/25 Unknown COMPREHENSIVE METABOLIC 77502 Bili Total 0.4 mg/dL 01/25 Unknown COMPREHENSIVE METABOLIC 25066 ALK PHOS 85 U/L 2020 Unknown COMPREHENSIVE METABOLIC 30414 SODIUM 134 mmol/L 01/25 Unknown COMPREHENSIVE METABOLIC 69243 CREATININE 0.71 mg/dL 07/2020 Unknown COMPREHENSIVE METABOLIC 31098 CALCIUM 9.3 mg/dL 2020 Unknown COMPREHENSIVE METABOLIC 02403 POTASSIUM 4.3 mmol/L 01/25 Unknown COMPREHENSIVE METABOLIC 21916 Total Protein 7.0 g/dL Unknown COMPREHENSIVE METABOLIC 71649 Glucose 111 mg/dL 2020 Unknown COMPREHENSIVE METABOLIC 73355 Bicarbonate 24 mmol/L 07/2020 Unknown COMPREHENSIVE METABOLIC 43856 AGAP 8 mmol/L 2020 Unknown COMPREHENSIVE METABOLIC 01561 AST 16 U/L 2019 Unknown COMPREHENSIVE METABOLIC 35491 ALT 12 U/L 2019 Unknown COMPREHENSIVE METABOLIC 16472 BUN 13 mg/dL 2019 Unknown COMPREHENSIVE METABOLIC 07946 ALBUMIN 4.1 g/dL 2019 Unknown COMPREHENSIVE METABOLIC 30903 CHLORIDE 96 mmol/L 2019 Unknown COMPREHENSIVE METABOLIC 93721 Bili Total 1.1 mg/dL 04/09 Unknown COMPREHENSIVE METABOLIC 41990 ALK PHOS 80 U/L 2019 Unknown COMPREHENSIVE METABOLIC 55946 SODIUM 131 mmol/L 04/09 Unknown COMPREHENSIVE METABOLIC 98485 CREATININE 0.76 mg/dL 03/24 Unknown COMPREHENSIVE METABOLIC 52284 CALCIUM 9.0 mg/dL 2019 Unknown COMPREHENSIVE METABOLIC 75679 POTASSIUM 4.2 mmol/L 04/09 Unknown COMPREHENSIVE METABOLIC 75294 Total Protein 6.8 g/dL Unknown COMPREHENSIVE METABOLIC 00161 Glucose 101 mg/dL 2019 Unknown COMPREHENSIVE METABOLIC 16692 Bicarbonate 25 mmol/L 03/24 Unknown COMPREHENSIVE METABOLIC 45303 AGAP 10 mmol/L 2019 Unknown GFR CALC 8001798 GFR Afr Amr >60 mL/min 04/09/2020 Unknow n GFR CALC 0899697 GFR Non Afr Amr >60 mL/min 04/09/2020 Un known GAMMA GLUTAMYL TRANSFERASE 69446 GGT 19 U/L Unknown COMPLETE BLOOD COUNT [id number] WBC 6.3 10e9/L 04/07/20 20 Unknown COMPLETE BLOOD COUNT [id number] RBC 4.36 10e12/L 2019 Unknown COMPLETE BLOOD COUNT 8227665 HEMOGLOBIN 15.2 g/dL 04/07/20 20 Unknown COMPLETE BLOOD COUNT [id number] HEMATOCRIT 43.8 % 04/07/20 20 Unknown COMPLETE BLOOD COUNT 2458330 MCV 100.5 fL 0 Unknown COMPLETE BLOOD COUNT 9046872 MCH 34.9 pg 0 Unknown COMPLETE BLOOD COUNT 5805130 MCHC 34.7 g/dL 0 Unknown COMPLETE BLOOD COUNT 7419602 PLATELET COUNT 254 10e9/L Unknown COMPLETE BLOOD COUNT 3605839 Mean Plt Volume 9.9 fL Unknown COMPLETE BLOOD COUNT 3567250 Neut Auto 63.3 % 0 Unknown COMPLETE BLOOD COUNT [id number] Lymph Auto 24.5 % 04/07/20 20 Unknown COMPLETE BLOOD COUNT [id number] [place] Auto 8.4 % 0 Unknown COMPLETE BLOOD COUNT 1030811 Eos Auto 3.2 % 0 Unknown COMPLETE BLOOD COUNT 0757942 RDW 12.8 % 0 Unknown COMPLETE BLOOD COUNT 4130825 Baso Auto 0.6 % 0 Unknown COMPLETE BLOOD COUNT 7580466 Neutrophil Abs 3.99 10e9/L Unknown COMPLETE BLOOD COUNT 7990812 Lymphocyte Abs 1.54 10e9/L Unknown COMPLETE BLOOD COUNT [id number] Monocyte Abs 0.53 10e9/L 03/24 Unknown COMPLETE BLOOD COUNT 4990148 Eosinophil Abs 0.20 10e9/L Unknown COMPLETE BLOOD COUNT 6894170 RDW-SD 47.6 fL 0 Unknown COMPLETE BLOOD COUNT 1332536 Basophil Abs 0.04 10e9/L 03/24 Unknown VITAMIN B 12 67313 VITAMIN B12 661 pg/mL 04/07/2020 Unkn own LIPID GROUP 74655 Cholesterol 168 mg/dL 09/30/2019 Unkno wn LIPID GROUP 76863 Triglyceride 141 mg/dL 09/30/2019 Unkn own LIPID GROUP 65826 HDL CHOLESTEROL 66 mg/dL 09/30/2019 U nknown LIPID GROUP 53616 Chol/HDL Ratio 2.55 ratio 09/30/2019 U nknown LIPID GROUP 30308 NON-HDL Chol 102 mg/dL 09/30/2019 Unkn own LIPID GROUP 85429 LDL Cholesterol 74 mg/dL 09/30/2019 U nknown FREE T4 82718 T4 Free 0.76 ng/dL 09/30/2019 Unknown THYROID STIMULATING HORMONE 07179 TSH 2.186 uIU/mL 09/30/2019 Unknown GFR CALC 6565384 GFR Non Afr Amr >60 mL/min 09/30/2019 Un known GFR CALC 4877347 GFR Afr Amr >60 mL/min 09/30/2019 Unknow n COMPREHENSIVE METABOLIC 79021 AST 14 U/L 2019 Unknown COMPREHENSIVE METABOLIC 07064 ALT 11 U/L 2019 Unknown COMPREHENSIVE METABOLIC 45107 BUN 15 mg/dL 2019 Unknown COMPREHENSIVE METABOLIC 59693 ALBUMIN 4.0 g/dL 2019 Unknown COMPREHENSIVE METABOLIC 03465 CHLORIDE 96 mmol/L 2019 Unknown COMPREHENSIVE METABOLIC 13572 Bili Total 0.9 mg/dL 09/29 Unknown COMPREHENSIVE METABOLIC 56046 ALK PHOS 72 U/L 2019 Unknown COMPREHENSIVE METABOLIC 87127 SODIUM 132 mmol/L 09/29 Unknown COMPREHENSIVE METABOLIC 04483 CREATININE 0.73 mg/dL 11/2019 Unknown COMPREHENSIVE METABOLIC 64583 CALCIUM 9.1 mg/dL 2019 Unknown COMPREHENSIVE METABOLIC 47173 POTASSIUM 4.6 mmol/L 09/29 Unknown COMPREHENSIVE METABOLIC 25433 Total Protein 6.4 g/dL Unknown COMPREHENSIVE METABOLIC 60269 Glucose 97 mg/dL 2019 Unknown COMPREHENSIVE METABOLIC 66429 Bicarbonate 25 mmol/L 11/2019 Unknown COMPREHENSIVE METABOLIC 78143 AGAP 11 mmol/L 2019 Unknown COMPLETE BLOOD COUNT 3428381 WBC 5.3 10e9/L 09/30/19 20 Unknown COMPLETE BLOOD COUNT 6759202 RBC 4.16 10e12/L 2019 Unknown COMPLETE BLOOD COUNT 5885434 HEMOGLOBIN 14.1 g/dL 09/30/19 20 Unknown COMPLETE BLOOD COUNT 7041184 HEMATOCRIT 42.6 % 09/30/19 20 Unknown COMPLETE BLOOD COUNT 2363273 MCV 102.4 fL 0 Unknown COMPLETE BLOOD COUNT 6873593 MCH 33.9 pg 0 Unknown COMPLETE BLOOD COUNT 5732978 MCHC 33.1 g/dL 0 Unknown COMPLETE BLOOD COUNT 8540661 PLATELET COUNT 273 10e9/L 11/2019 Unknown COMPLETE BLOOD COUNT 4670952 Mean Plt Volume 9.4 fL 11/2019 Unknown COMPLETE BLOOD COUNT 2698553 Neut Auto 57.3 % 0 Unknown COMPLETE BLOOD COUNT [id number] Lymph Auto 29.3 % 09/30/19 20 Unknown COMPLETE BLOOD COUNT 6507839 [place] Auto 7.6 % 0 Unknown COMPLETE BLOOD COUNT 5892236 Eos Auto 4.5 % 0 Unknown COMPLETE BLOOD COUNT 1872293 RDW 13.8 % 0 Unknown COMPLETE BLOOD COUNT 3842284 Baso Auto 1.3 % 0 Unknown COMPLETE BLOOD COUNT 6334288 Neutrophil Abs 3.04 10e9/L Unknown COMPLETE BLOOD COUNT 8938354 Lymphocyte Abs 1.55 10e9/L Unknown COMPLETE BLOOD COUNT 4740809 Monocyte Abs 0.40 10e9/L 11/2019 Unknown COMPLETE BLOOD COUNT 1944599 Eosinophil Abs 0.24 10e9/L Unknown COMPLETE BLOOD COUNT 6041966 RDW-SD 50.7 fL 0 Unknown COMPLETE BLOOD COUNT [id number] Basophil Abs 0.07 10e9/L 11/2019 Unknown Procedures Procedure Codes Date URINALYSIS NONAUTO W/O SCOPE CPT-4: 50317 05/07/2021 URINE CULTURE/ COLONY COUNT CPT-4: 06559 05/07/2021 ROUTINE VENIPUNCTURE CPT-4: 01748 04/30/2021 COMPREHEN METABOLIC PANEL CPT-4: 42065 04/30/2021 COMPLETE CBC W/AUTO DIFF WBC CPT-4: 61197 04/30/2021 UA W/MICR CPT-4: 16919 02/15/2021 URINE CULTURE/ COLONY COUNT CPT-4: 08026 02/02/2021 ROUTINE VENIPUNCTURE CPT-4: 52155 01/25/2021 COMPREHEN METABOLIC PANEL CPT-4: 22631 01/25/2021 COMPLETE CBC W/AUTO DIFF WBC CPT-4: 16805 01/25/2021 URINE CULTURE/ COLONY COUNT CPT-4: 42657 01/25/2021 URINALYSIS NONAUTO W/O SCOPE CPT-4: 83952 01/25/2021 ROUTINE VENIPUNCTURE CPT-4: 47028 07/20/2020 COMPREHEN METABOLIC PANEL CPT-4: 87334 07/20/2020 ASSAY OF FREE THYROXINE CPT-4: 84809 07/20/2020 ASSAY THYROID STIM HORMONE CPT-4: 68386 07/20/2020 COMPLETE CBC W/AUTO DIFF WBC CPT-4: 21113 07/20/2020 RBC SED RATE AUTOMATED CPT-4: 28348 07/20/2020 URINALYSIS NONAUTO W/O SCOPE CPT-4: 31850 04/30/2020 URINE CULTURE/ COLONY COUNT CPT-4: 25501 04/30/2020 ROUTINE VENIPUNCTURE CPT-4: 48356 04/07/2020 COMPLETE CBC W/AUTO DIFF WBC CPT-4: 55319 04/07/2020 VITAMIN B-12 CPT-4: 27381 04/07/2020 ASSAY OF GGT CPT-4: 62772 04/07/2020 ROUTINE VENIPUNCTURE CPT-4: 53528 09/30/2019 ASSAY OF FREE THYROXINE CPT-4: 08943 09/30/2019 ASSAY THYROID STIM HORMONE CPT-4: 97126 09/30/2019 COMPREHEN METABOLIC PANEL CPT-4: 69235 09/30/2019 COMPLETE CBC W/AUTO DIFF WBC CPT-4: 64849 09/30/2019 LIPID PANEL CPT-4: 02380 09/30/2019 Vital Signs Date Vital 05/07/2021 Blood Pressure 1: 126/68 Code: 8480-6 Heart Rate 1: 52 bpm Respiratory Rate: 20 bpm SpO2: 99% Temperature: 36.6 (C) / 97.9 (F) We ight: 80 lbs Code: 44347-7 05/05/2021 Blood Pressure 1: 118/76 Code: 8480-6 BMI: 13.1 Code: 20720-1 Heart Rate 1: 67 bpm Height: 5'5" Code: 8302-2 Respiratory Rate: 16 bpm Temperatu re: 36.4 (C) / 97.5 (F) Weight: 79 lbs Code: 63508-9 01/25/2021 Blood Pressure 1: 102/68 Code: 8480-6 Heart Rate 1: 76 bpm Respiratory Rate: 20 bpm SpO2: 100% Temperature: 36.9 (C) / 98.5 (F) We ight: 87 lbs Code: 40436-2 12/30/2020 Blood Pressure 1: 134/80 Code: 8480-6 BMI: 14.1 Code: 32683-8 Heart Rate 1: 72 bpm Height: 5'5" Code: 8302-2 Respiratory Rate: 18 bpm SpO2: 97% Temperature: 36.6 (C) / 97.8 (F) Weight: 85 lbs Code: 68173-7 11/10/2020 Blood Pressure 1: 130/74 Code: 8480-6 Heart Rate 1: 56 bpm Respiratory Rate: 20 bpm SpO2: 98% Temperature: 36.3 (C) / 97.4 (F) We ight: 85 lbs Code: 31884-1 07/29/2020 Blood Pressure 1: 121/65 Code: 8480-6 BMI: 14.3 Code: 34652-0 Heart Rate 1: 58 bpm Height: 5'5" Code: 8302-2 Respiratory Rate: 15 bpm SpO2: 98% Temperature: 36.9 (C) / 98.4 (F) Weight: 86 lbs Code: 30726-1 07/20/2020 Blood Pressure 1: 123/69 Code: 8480-6 Heart Rate 1: 68 bpm Respiratory Rate: 15 bpm SpO2: 99% Temperature: 36.6 (C) / 97.8 (F) We ight: 83 lbs Code: 92342-4 04/30/2020 Blood Pressure 1: 128/82 Code: 8480-6 Heart Rate 1: 68 bpm Respiratory Rate: 20 bpm SpO2: 95% Temperature: 36.5 (C) / 97.7 (F) We ight: 91 lbs Code: 12835-5 04/09/2020 Blood Pressure 1: 130/78 Code: 8480-6 Heart Rate 1: 68 bpm Respiratory Rate: 20 bpm SpO2: 99% Temperature: 36.3 (C) / 97.4 (F) We ight: 90 lbs Code: 82064-1 11/22/2019 Temperature: 36.3 (C) / 97.3 (F) 09/10/2019 Blood Pressure 1: 128/72 Code: 8480-6 BMI: 15.6 Code: 87017-5 Heart Rate 1: 68 bpm Height: 5'5" Code: 8302-2 Respiratory Rate: 20 bpm SpO2: 97% Temperature: 36.6 (C) / 97.9 (F) Weight: 94 lbs Code: 52598-8 Functional Status No Functional Status data Reason For Visit Reason For Visit Effective Dates Notes frequent urination 05/07/2021 follow up 05/05/2021 blood in urine 02/15/2021 [...] Codes Date () OFFICE/OUTPATIENT VISIT EST Diagnosis: Urinary tract infection[ICD10: N39.0] Diagnosis: Urinary frequency[ICD10: R35.0] Sara MCCORMICK DO [facility] CPT-4: 58486 05/07/2021 ([id number]) OFFICE/OUTPATIENT VISIT EST Diagnosis: Mass of right lung[ICD10: R91.8] Diagnosis: Right patella fracture[ICD10: S82.001A] Diagnosis: Abnormal weight loss[ICD10: R63.4] Diagnosis: Coronary artery arteriosclerosis[ICD10: I25.10] Diagnosis: Fatigue[ICD10: R53.83] Ericka Maharaj [facility] CPT-4: 24728 05/05/2021 ([id number]) NURSE/OUTPATIENT VISIT EST Diagnosis: Essential (primary) hypertension[ICD10: I10] Diagnosis: Fatigue[ICD10: R53.83] Diagnosis: Blood loss anemia[ICD10: D50.0] Ericka MCCORMICK [facility] CPT-4: 36058 04/30/2021 ([id number]) NURSE/OUTPATIENT VISIT EST Diagnosis: Urinary tract infection[ICD10: N39.0] Ericka MCCORMICK [facility] CPT-4: 81126 02/02/2021 ([id number]) OFFICE/OUTPATIENT VISIT EST Diagnosis: Fatigue[ICD10: R53.83] Diagnosis: Blood loss anemia[ICD10: D50.0] Diagnosis: Coronary artery disease[ICD10: I25.10] Diagnosis: Hematuria[ICD10: R31.9] Ericka CHANEL [facility] CPT-4: 35722 01/25/2021 ([id number]) OFFICE/OUTPATIENT VISIT EST Diagnosis: GERD (gastroesophageal reflux disease)[ICD10: K21.9] Diagnosis: Duodenal ulcer[ICD10: K26.9] Diagnosis: Coronary artery disease[ICD10: I25.10] Diagnosis: Anxiety[ICD10: F41.9] Diagnosis: Blood loss anemia[ICD10: D50.0] Ericka MCCORMICK [facility] CPT-4: 84333 12/30/2020 ([id number]) NURSE/OUTPATIENT VISIT EST Diagnosis: Edema[ICD10: R60.9] Ericka MCCORMICK [facility] CPT-4: 96038 12/21/2020 ([id number]) OFFICE/OUTPATIENT VISIT EST Diagnosis: Coronary artery disease[ICD10: I25.10] Diagnosis: Essential (primary) hypertension[ICD10: I10] Diagnosis: Stress reaction[ICD10: F43.0] Diagnosis: Insomnia[ICD10: G47.00] Diagnosis: Pulmonary nodule[ICD10: R91.1] Ericka Marianocurtispromise MCCORMICK [facility] CPT-4: 50075 11/10/2020 ([id number]) NO CHARGE Diagnosis: Mass of upper lobe of right lung[ICD10: R91.8] Ericka Anny MCCORMICK [facility] CPT-4: 95680 07/29/2020 ([id number]) OFFICE/OUTPATIENT VISIT EST Diagnosis: Fatigue[ICD10: R53.83] Diagnosis: Lymphadenopathy of head and neck[ICD10: R59.1] Diagnosis: Weight loss, non-intentional[ICD10: R63.4] Diagnosis: History of melanoma[ICD10: Z85.820] Diagnosis: Skin lesion[ICD10: L98.9] Sara Delgadovitormomo NUNEZ [facility] CPT-4: 28241 07/20/2020 ([id number]) OFFICE/OUTPATIENT VISIT EST Diagnosis: Urinary tract infection[ICD10: N39.0] Meena Martinezmichael RÍOS BUBBA MCCORMICK [facility] CPT-4: 10160 04/30/2020 ([id number]) OFFICE/OUTPATIENT VISIT EST Diagnosis: Dizziness[ICD10: R42] Diagnosis: Depressed mood with feeling of loneliness[ICD10: F32.9] Diagnosis: Insomnia[ICD10: G47.00] Ericka Anny HAYNESLINE Kayli CHANEL [facility] CPT-4: 34115 04/09/2020 ([id number]) NURSE/OUTPATIENT VISIT EST Diagnosis: Coronary artery disease[ICD10: I25.10] Diagnosis: Fatigue[ICD10: R53.83] Diagnosis: Essential (primary) hypertension[ICD10: I10] Ericka Garcíadeysi ERICKA Kayli MCCORMICK [facility] CPT-4: 92099 04/07/2020 ([id number]) OFFICE/OUTPATIENT VISIT EST Diagnosis: Fatigue[ICD10: R53.83] Meena Martinezimaldi [facility] CPT-4: 36600 11/22/2019 ([id number]) NURSE/OUTPATIENT VISIT EST Diagnosis: Essential (primary) hypertension[ICD10: I10] Diagnosis: Coronary artery disease[ICD10: I25.10] Diagnosis: Encounter for general adult medical examination with abnormal findings[ICD10: Z00.01] Ericka CHANCE KatherineNilda ANNY Moncai CPT-4: 53646 09/30/2019 ([id number]) OFFICE/OUTPATIENT VISIT NEW Diagnosis: Essential (primary) hypertension[ICD10: I10] Diagnosis: Coronary artery disease[ICD10: I25.10] Diagnosis: Aortic valve stenosis with insufficiency[ICD10: I35.2] Ericka Milan ANNY [employer] CPT-4: 03956 09/10/2019 Plan of Care Planned Activity Notes Codes Status Date Visit Diagnosis Plan: Urinary tract infection Discussi on: Will start cipro and send urine for culture. Push fluids. Will f/u with culture results. ICD-9 : 599.0 ICD-10 : N39.0 05/07/2021 Patient Education: Patient Medication Summary Completed 05/07/2021 Visit Diagnosis Plan: Right patella fracture Discussio [...] : 414.00 ICD-10 : I25.10 05/05/2021 Appointment: Ericka Mccormicktel: [address] [place] [address] US FOLLOW UP 05/05/2021 Visit Plan: 04/30/2021 Appointment: Ericka Mccormick WPtel: [address] [place], [place] [phone] [place] LAB 04/30/2021 Appointment: Ericka Mccormick WPtel: [address] [place] [address] US scheduled by VC CANCELED 03/10/2021 Appointment: Ericka Mccormick WPtel: [address] [place] [address] patient unable to leave urine CANCELED Appointment: Ericka Mccormick WPtel: [address] [place], [place] [phone] [place] CANCELED 02/02/2021 Appointment: Ericka Mccormick WPtel: [address] [place], [place] [phone] US UA 02/02/2021 Care Plan: UA W/MICR ADD ON ORDER LOINC : 38944-3 Pending 01/26/2021 Visit Diagnosis Plan: Hematuria Discussion: Culture ur ine ICD-9 : 599.70 ICD-10 : R31.9 01/25/2021 Visit Diagnosis Plan: Blood loss anemia Discussion: Ch real CBC now ICD-9 : 280.0 ICD-10 : D50.0 01/25/2021 Appointment: Ericka Mccormick WPtel: [address] [place], [place] [phone] [place] ACUTE ILLNESS 01/25/2021 Appointment: Sara Aguila WPtel: [phone] [facility] [place] CANCELED 01/01/2021 Visit Diagnosis Plan: Anxiety [...] : K21.9 12/30/2020 Appointment: Ericka Mccormick WPtel: [address] [place], [place] [phone] [place] FOLLOW UP 12/30/2020 Appointment: Ericka Mccormick WPtel: [address] [place], [place] [phone] NURSE SERVICES 12/21/2020 Visit Diagnosis Plan: Insomnia [...] F43.0 11/10/2020 Appointment: Ericka Mccormick WPtel: [address] [place], [place] [phone] FOLLOW UP 11/10/2020 Patient Education: trazodone- [employer] Coupon [id number] [email or web address] Completed 11/10/2020 Visit Diagnosis Plan: Mass of upper lobe of right lung Discussion: CT scan of lung results discussed with patient and told this looks like cancer Agrees to see pulmonology to see if will be amenable to bronchoscopy to get cells/washings ICD-9 : 786.6 ICD-10 : R91.8 07/29/2020 Appointment: Ericka Mccormick WPtel: [address] [place], [place] [phone] WORK IN 07/29/2020 Care Plan: Referral Order SNOMED-CT : [id number] [phone] Pending 07/29/2020 Care Plan: CT SFT TSUE NCK W/O & W/DYE L OINC : 89330-9 Pending 07/21/2020 Visit Diagnosis Plan: Fatigue Discussion: [...] S [facility] ACUTE ILLNESS 07/20/2020 Patient Education: Patient [...] ICD-10 : N39.0 04/30/2020 Appointment: Meena Li [address] [place] [address] ACUTE ILLNESS 04/30/2020 Appointment: Meena Li [address] [place] [address] 04/21/2020 1020---patient needed seen fo r appointment [...] F32.9 04/09/2020 Appointment: Ericka Mccormick WPtel: [address] [facility] [place] [facility] FOLLOW UP 04/09/2020 Care Plan: COMPREH[place] : [address]-7 Pending 04/09/2020 Appointment: Ericka Mccormick WPtel: [address] [place], [place] [phone] LAB 04/07/2020 Visit Diagnosis Plan: Fatigue Discussion: no other sym ptoms other than fatigue for 4 weeks so will update labs. [facility] [place] [facility] [place] work and ua with c&s. instructed to call office with new or worsening symptoms. ICD-9 : 780.79 ICD-10 : R53.83 11/22/2019 Appointment: Meena Li [facility]66[facility] TELEMEDICINE 11/22/2019 Appointment: Ericka Mccormick WPtel: [address] [place] [address] LAB 09/30/2019 Visit Diagnosis Plan: Coronary artery [...] : I10 09/10/2019 Appointment: Ericka Mccormick WPtel: [address] [place], [place] [phone] NEW PATIENT 09/10/2019 Patient Education: carvedilol- Opt[employer]RX Elvin [phone] [email or web address] Completed 09/10/2019 Appointment: Ericka Mccormick WPtel: [address] [place], [place] [phone] [place] RESCHEDULED 08/20/2019 Appointment: Ericka Mccormick WPtel: [id number] [place] CANCELED 07/22/2019 Referral: Vikram Maguire WPtel: [address] [facility] [address] [id number] [place] Referral Appointment Requested Instructions No Instructions Medical Equipment No Medical Equipment data Health Concerns Section Health Concerns data not found Goals Section Goals data not found Interventions Section Interventions data not found Health Status Evaluations/Outcomes Section Health Status Evaluations/Outcomes data not found Advance Directives No Advance Directive data
--- OUTSIDE RECORDS SUMMARY | 2021-05-18 09:16 | XMS REPORT | CCD ---
Author Author Erica Mccormick D.O. Organization [facility] Address [address] [place] [address] Phone Care Team Providers Care Operations Chief Name Role Phone PP Unavailable CCM Unavailable Summary Purpose Interface Exchange Insurance Providers Payer name Policy type / Coverage type Covered alliance party ID Effective Begin Date Effective End Date WPS MEDICARE PART B [place] Medicare Part B [id number] Unknown Unknown [employer] [place] [employer] [place] MEDIC[place] Medicare Part B X [id number] Unknown Unknown Family History Family History data not found Social History Social History Element Codes Description Effective Dates Marital status Unknown 09/10/2019 Number of children Unknown 1 09/10/2019 Employment Unknown Retired 09/10/[address]: 9527400 Former smoker quit 201109/10/[address]: 522305 Currently drinks alcohol 09/09 Frequency of drinks SNOMED CT: 649227301 1-4 drinks per week Allergies, Adverse Reactions, [...] Start Date Stop Date Status Fill Instructions tramadol 50 mg tablet RxNorm: 839666 1 Tablet(s) Oral t wo times a day as needed for pain 03/15/2021 No Stop Date Active ferrous sulfate 325 mg (65 mg iron) tablet RxNorm: 156827 Take 1 Tablet(s) Oral QD 01/28/2021 05/04/2021 Inactive pantoprazole 20 mg tablet,delayed release RxNorm: 492720 1 Tablet(s) Oral two times a day 12/22/2020 03/21/2021 Inactive pantoprazole 20 mg tablet,delayed release RxNorm: 230210 1 Tablet(s) Oral two times a day 12/22/2020 12/22/2020 Inactive paroxetine 20 mg tablet RxNorm: 5854043 1 Tablet(s) Oral QD 021 05/04/2021 Inactive paroxetine 20 mg tablet RxNorm: 7754429 1 Tablet(s) Oral QD 021 12/15/2020 Inactive paroxetine 20 mg tablet RxNorm: 2101054 1 Tablet(s) Oral QD 021 12/15/2020 Inactive MagOx 400 mg (241.3 mg magnesium) tablet RxNorm: 670054 Take 1 Tablet(s) Oral every night at bedtime with melatonin 11/23/2020 01/24/2021 Inactive melatonin 3 mg tablet RxNorm: 920851 Take 1-2 Tablet(s) Oral every night at bedtime 11/18/2020 No Stop Date Active Plavix 75 mg tablet RxNorm: 724050 Take 1 Tablet(s) Oral QD No Stop Date Active trazodone 50 mg tablet RxNorm: 590747 Take 1-2 Tablet(s ) Oral QPM as needed for sleep 11/10/2020 11/22/2020 Inactive atorvastatin 40 mg tablet RxNorm: 557489 Take 1 Tablet( s) Oral every night at bedtime 11/10/2020 05/04/2021 Inactive alprazolam 0.25 mg tablet RxNorm: 396397 1/2-1 Tablet(s ) Oral QPM as needed for sleep 08/03/2020 09/01/2020 Inactive alprazolam 0.25 mg tablet RxNorm: 246270 2-1 Tablet(s ) Oral QPM as needed for sleep 08/03/2020 08/02/2020 Inactive Aspirin Low Dose 81 mg tablet,delayed release RxNorm: 767369 1 Tablet(s) Oral QD 09/10/2019 No Stop Date Active carvedilol 6.25 mg tablet RxNorm: 444931 1 Tablet(s) Oral two t imes a day 09/10/2019 11/09/2020 Inactive Fish Oil 1,000 mg (120 mg-180 mg) capsule RxNorm: 1 Caps ule(s) Oral QD 09/10/2019 11/25/2019 Inactive losartan 25 mg tablet RxNorm: 004710 1 Tablet(s) Oral QD 09/10/2019 0 05/04/2021 Inactive Medication Administered No Medication Administered data Immunizations No Immunization data Results Observation Observation Code Item Item Code Result Date S ervice Location GFR CALC 5857845 GFR Non Afr Amr >60 mL/min 04/30/2021 Un known GFR CALC 1075104 GFR Afr Amr >60 mL/min 04/30/2021 Unknow n COMPREHENSIVE METABOLIC 80924 AST 13 U/L 2021 Unknown COMPREHENSIVE METABOLIC 81094 ALT 12 U/L 2021 Unknown COMPREHENSIVE METABOLIC 90301 BUN 15 mg/dL 2021 Unknown COMPREHENSIVE METABOLIC 71640 ALBUMIN 4.0 g/dL 2021 Unknown COMPREHENSIVE METABOLIC 24585 CHLORIDE 103 mmol/L 04/30 Unknown COMPREHENSIVE METABOLIC 03348 Bili Total 0.4 mg/dL 04/30 Unknown COMPREHENSIVE METABOLIC 42098 ALK PHOS 75 U/L 2021 Unknown COMPREHENSIVE METABOLIC 68304 SODIUM 136 mmol/L 04/30 Unknown COMPREHENSIVE METABOLIC 26044 CREATININE 0.69 mg/dL 10/2021 Unknown COMPREHENSIVE METABOLIC 16463 CALCIUM 8.9 mg/dL 2021 Unknown COMPREHENSIVE METABOLIC 16086 POTASSIUM 4.3 mmol/L 04/30 Unknown COMPREHENSIVE METABOLIC 62048 Total Protein 6.7 g/dL Unknown COMPREHENSIVE METABOLIC 17619 Glucose 94 mg/dL 2021 Unknown COMPREHENSIVE METABOLIC 53140 Bicarbonate 25 mmol/L 10/2021 Unknown COMPREHENSIVE METABOLIC 35649 AGAP 8 mmol/L 2021 Unknown COMPLETE BLOOD COUNT [id number] WBC 4.6 10e9/L 04/30/19 22 Unknown COMPLETE BLOOD COUNT [id number] RBC 3.76 10e12/L 2021 Unknown COMPLETE BLOOD COUNT [id number] HEMOGLOBIN 10.9 g/dL 04/30/19 22 Unknown COMPLETE BLOOD COUNT [id number] HEMATOCRIT 35.3 % 04/30/19 22 Unknown COMPLETE BLOOD COUNT [id number] MCV 93.9 fL 2 Unknown COMPLETE BLOOD COUNT [id number] MCH 29.0 pg 2 Unknown COMPLETE BLOOD COUNT [id number] MCHC 30.9 g/dL 2 Unknown COMPLETE BLOOD COUNT [id number] PLATELET COUNT 254 10e9/L 10/2021 Unknown COMPLETE BLOOD COUNT 0778304 Mean Plt Volume 9.0 fL 10/2021 Unknown COMPLETE BLOOD COUNT [id number] Neut Auto 73.2 % 2 Unknown COMPLETE BLOOD COUNT 3368388 Lymph Auto 14.3 % 04/30/19 22 Unknown COMPLETE BLOOD COUNT [id number] [place] Auto 8.1 % 2 Unknown COMPLETE BLOOD COUNT [id number] RDW 17.8 % 2 Unknown COMPLETE BLOOD COUNT [id number] Eos Auto 3.7 % 2 Unknown COMPLETE BLOOD COUNT [id number] Baso Auto 0.7 % 2 Unknown COMPLETE BLOOD COUNT [id number] Neutrophil Abs 3.37 10e9/L Unknown COMPLETE BLOOD COUNT [id number] Lymphocyte Abs 0.66 10e9/L Unknown COMPLETE BLOOD COUNT [id number] Monocyte Abs 0.37 10e9/L 10/2021 Unknown COMPLETE BLOOD COUNT [id number] Eosinophil Abs 0.17 10e9/L Unknown COMPLETE BLOOD COUNT [id number] RDW-SD 59.5 fL 2 Unknown COMPLETE BLOOD COUNT [id number] Basophil Abs 0.03 10e9/L 10/2021 Unknown UA W/MICR 77727 UA Protein TNP:Specimen Not Received Unknown UA W/MICR 93297 UA Hemoglobin TNP:Specimen Not Received 02/17/2021 Unknown UA W/MICR 34288 UA Glucose TNP:Specimen Not Received Unknown UA W/MICR 62886 UA Ketones TNP:Specimen Not Received Unknown UA W/MICR 35322 UA pH TNP:Specimen Not Received Unknown UA W/MICR 79250 U Spec [place] TNP:Specimen Not Received 02/17/2021 Unknown UA W/MICR 71222 UA Bilirubin TNP:Specimen Not Received 02/17/2021 Unknown UA W/MICR 09479 UA Leuk [place] TNP:Specimen Not Receive d 02/17/2021 Unknown UA W/MICR 37315 UA Nitrite TNP:Specimen Not Received Unknown UA W/MICR 80282 UA WBC/hpf TNP:Specimen Not Received Unknown UA W/MICR 02237 UA RBC hpf TNP:Specimen Not Received Unknown UA W/MICR 14638 UA Protein TNP:Specimen Integrity 01/27 Unknown UA W/MICR 44261 UA Hemoglobin TNP:Specimen Integrity Unknown UA W/MICR 34432 UA Glucose TNP:Specimen Integrity 01/27 Unknown UA W/MICR 81152 UA Ketones TNP:Specimen Integrity 01/27 Unknown UA W/MICR 65637 UA pH TNP:Specimen Integrity 2020 Unknown UA W/MICR 44723 U Spec [place] TNP:Specimen Integrity 1 Unknown UA W/MICR 57471 UA Bilirubin TNP:Specimen Integrity 09/2020 Unknown UA W/MICR 67713 UA Leuk [place] TNP:Specimen Integrity 01/27/2021 Unknown UA W/MICR 40922 UA Nitrite TNP:Specimen Integrity 01/27 Unknown UA W/MICR 73305 UA WBC/hpf TNP:Specimen Integrity 01/27 Unknown UA W/MICR 95723 UA RBC hpf TNP:Specimen Integrity 01/27 Unknown COMPLETE BLOOD COUNT [id number] WBC 6.1 10e9/L 01/26/20 21 Unknown COMPLETE BLOOD COUNT [id number] RBC 3.34 10e12/L 2020 Unknown COMPLETE BLOOD COUNT [id number] HEMOGLOBIN 8.8 g/dL 01/26/20 21 Unknown COMPLETE BLOOD COUNT [id number] HEMATOCRIT 28.5 % 01/26/20 21 Unknown COMPLETE BLOOD COUNT [id number] MCV 85.3 fL 1 Unknown COMPLETE BLOOD COUNT [id number] MCH 26.3 pg 1 Unknown COMPLETE BLOOD COUNT [id number] MCHC 30.9 g/dL 1 Unknown COMPLETE BLOOD COUNT [id number] PLATELET COUNT 268 10e9/L 07/2020 Unknown COMPLETE BLOOD COUNT [id number] Mean Plt Volume 8.7 fL 07/2020 Unknown COMPLETE BLOOD COUNT 8547999 Neut Auto 67.7 % 1 Unknown COMPLETE BLOOD COUNT [id number] Lymph Auto 19.4 % 01/26/20 21 Unknown COMPLETE BLOOD COUNT [id number] [place] Auto 8.4 % 1 Unknown COMPLETE BLOOD COUNT [id number] RDW 16.7 % 1 Unknown COMPLETE BLOOD COUNT [id number] Eos Auto 3.8 % 1 Unknown COMPLETE BLOOD COUNT 9079476 Baso Auto 0.7 % 1 Unknown COMPLETE BLOOD COUNT [id number] Neutrophil Abs 4.13 10e9/L Unknown COMPLETE BLOOD COUNT [id number] Lymphocyte Abs 1.18 10e9/L Unknown COMPLETE BLOOD COUNT [id number] Monocyte Abs 0.51 10e9/L 07/2020 Unknown COMPLETE BLOOD COUNT [id number] Eosinophil Abs 0.23 10e9/L Unknown COMPLETE BLOOD COUNT [id number] RDW-SD 50.9 fL 1 Unknown COMPLETE BLOOD COUNT [id number] Basophil Abs 0.04 10e9/L 07/2020 Unknown GFR CALC [id number] GFR Non Afr Amr >60 mL/min 01/25/2021 Un known GFR CALC 7449832 GFR Afr Amr >60 mL/min 01/25/2021 Unknow n COMPREHENSIVE METABOLIC 25360 AST 17 U/L 2020 Unknown COMPREHENSIVE METABOLIC 12267 ALT 13 U/L 2020 Unknown COMPREHENSIVE METABOLIC 32136 BUN 14 mg/dL 2020 Unknown COMPREHENSIVE METABOLIC 52770 ALBUMIN 4.1 g/dL 2020 Unknown COMPREHENSIVE METABOLIC 39235 CHLORIDE 102 mmol/L 01/25 Unknown COMPREHENSIVE METABOLIC 22463 Bili Total 0.4 mg/dL 01/25 Unknown COMPREHENSIVE METABOLIC 34899 ALK PHOS 85 U/L 2020 Unknown COMPREHENSIVE METABOLIC 33710 SODIUM 134 mmol/L 01/25 Unknown COMPREHENSIVE METABOLIC 27457 CREATININE 0.71 mg/dL 07/2020 Unknown COMPREHENSIVE METABOLIC 93136 CALCIUM 9.3 mg/dL 2020 Unknown COMPREHENSIVE METABOLIC 88567 POTASSIUM 4.3 mmol/L 01/25 Unknown COMPREHENSIVE METABOLIC 80750 Total Protein 7.0 g/dL Unknown COMPREHENSIVE METABOLIC 04411 Glucose 111 mg/dL 2020 Unknown COMPREHENSIVE METABOLIC 68675 Bicarbonate 24 mmol/L 07/2020 Unknown COMPREHENSIVE METABOLIC 09820 AGAP 8 mmol/L 2020 Unknown COMPREHENSIVE METABOLIC 19765 AST 16 U/L 2019 Unknown COMPREHENSIVE METABOLIC 94839 ALT 12 U/L 2019 Unknown COMPREHENSIVE METABOLIC 51487 BUN 13 mg/dL 2019 Unknown COMPREHENSIVE METABOLIC 66190 ALBUMIN 4.1 g/dL 2019 Unknown COMPREHENSIVE METABOLIC 49562 CHLORIDE 96 mmol/L 2019 Unknown COMPREHENSIVE METABOLIC 29858 Bili Total 1.1 mg/dL 04/09 Unknown COMPREHENSIVE METABOLIC 40284 ALK PHOS 80 U/L 2019 Unknown COMPREHENSIVE METABOLIC 16410 SODIUM 131 mmol/L 04/09 Unknown COMPREHENSIVE METABOLIC 58452 CREATININE 0.76 mg/dL 03/24 Unknown COMPREHENSIVE METABOLIC 65281 CALCIUM 9.0 mg/dL 2019 Unknown COMPREHENSIVE METABOLIC 98209 POTASSIUM 4.2 mmol/L 04/09 Unknown COMPREHENSIVE METABOLIC 64801 Total Protein 6.8 g/dL Unknown COMPREHENSIVE METABOLIC 14805 Glucose 101 mg/dL 2019 Unknown COMPREHENSIVE METABOLIC 13629 Bicarbonate 25 mmol/L 03/24 Unknown COMPREHENSIVE METABOLIC 88816 AGAP 10 mmol/L 2019 Unknown GFR CALC 8333126 GFR Non Afr Amr >60 mL/min 04/09/2020 Un known GFR CALC 6128461 GFR Afr Amr >60 mL/min 04/09/2020 Unknow n GAMMA GLUTAMYL TRANSFERASE 47065 GGT 19 U/L Unknown COMPLETE BLOOD COUNT [id number] WBC 6.3 10e9/L 04/07/20 20 Unknown COMPLETE BLOOD COUNT [id number] RBC 4.36 10e12/L 2019 Unknown COMPLETE BLOOD COUNT [id number] HEMOGLOBIN 15.2 g/dL 04/07/20 20 Unknown COMPLETE BLOOD COUNT [id number] HEMATOCRIT 43.8 % 04/07/20 20 Unknown COMPLETE BLOOD COUNT [id number] MCV 100.5 fL 0 Unknown COMPLETE BLOOD COUNT 3640701 MCH 34.9 pg 0 Unknown COMPLETE BLOOD COUNT [id number] MCHC 34.7 g/dL 0 Unknown COMPLETE BLOOD COUNT 1577430 PLATELET COUNT 254 10e9/L Unknown COMPLETE BLOOD COUNT 3591885 Mean Plt Volume 9.9 fL Unknown COMPLETE BLOOD COUNT 1274986 Neut Auto 63.3 % 0 Unknown COMPLETE BLOOD COUNT [id number] Lymph Auto 24.5 % 04/07/20 Unknown COMPLETE BLOOD COUNT 6247938 [place] Auto 8.4 % 0 Unknown COMPLETE BLOOD COUNT 2729159 RDW 12.8 % 0 Unknown COMPLETE BLOOD COUNT 1029973 Eos Auto 3.2 % 0 Unknown COMPLETE BLOOD COUNT 7577086 Baso Auto 0.6 % 0 Unknown COMPLETE BLOOD COUNT [id number] Neutrophil Abs 3.99 10e9/L Unknown COMPLETE BLOOD COUNT 8728136 Lymphocyte Abs 1.54 10e9/L Unknown COMPLETE BLOOD COUNT [id number] Monocyte Abs 0.53 10e9/L 03/24 Unknown COMPLETE BLOOD COUNT 4276139 Eosinophil Abs 0.20 10e9/L Unknown COMPLETE BLOOD COUNT 1767924 RDW-SD 47.6 fL 0 Unknown COMPLETE BLOOD COUNT [id number] Basophil Abs 0.04 10e9/L 03/24 Unknown VITAMIN B 12 88273 VITAMIN B12 661 pg/mL 04/07/2020 Unkn own LIPID GROUP 87190 Cholesterol 168 mg/dL 09/30/2019 Unkno wn LIPID GROUP 06656 Triglyceride 141 mg/dL 09/30/2019 Unkn own LIPID GROUP 67537 HDL CHOLESTEROL 66 mg/dL 09/30/2019 U nknown LIPID GROUP 75688 Chol/HDL Ratio 2.55 ratio 09/30/2019 U nknown LIPID GROUP 59882 NON-HDL Chol 102 mg/dL 09/30/2019 Unkn own LIPID GROUP 83080 LDL Cholesterol 74 mg/dL 09/30/2019 U nknown FREE T4 32641 T4 Free 0.76 ng/dL 09/30/2019 Unknown THYROID STIMULATING HORMONE 74016 TSH 2.186 uIU/mL 09/30/2019 Unknown GFR CALC 6770179 GFR Non Afr Amr >60 mL/min 09/30/2019 Un known GFR CALC 5376245 GFR Afr Amr >60 mL/min 09/30/2019 Unknow n COMPREHENSIVE METABOLIC 67897 AST 14 U/L 2019 Unknown COMPREHENSIVE METABOLIC 06548 ALT 11 U/L 2019 Unknown COMPREHENSIVE METABOLIC 24553 BUN 15 mg/dL 2019 Unknown COMPREHENSIVE METABOLIC 90516 ALBUMIN 4.0 g/dL 2019 Unknown COMPREHENSIVE METABOLIC 60636 CHLORIDE 96 mmol/L 2019 Unknown COMPREHENSIVE METABOLIC 59733 Bili Total 0.9 mg/dL 09/29 Unknown COMPREHENSIVE METABOLIC 51917 ALK PHOS 72 U/L 2019 Unknown COMPREHENSIVE METABOLIC 56825 SODIUM 132 mmol/L 09/29 Unknown COMPREHENSIVE METABOLIC 32341 CREATININE 0.73 mg/dL 11/2019 Unknown COMPREHENSIVE METABOLIC 18714 CALCIUM 9.1 mg/dL 2019 Unknown COMPREHENSIVE METABOLIC 89878 POTASSIUM 4.6 mmol/L 09/29 Unknown COMPREHENSIVE METABOLIC 93927 Total Protein 6.4 g/dL Unknown COMPREHENSIVE METABOLIC 35416 Glucose 97 mg/dL 2019 Unknown COMPREHENSIVE METABOLIC 54298 Bicarbonate 25 mmol/L 11/2019 Unknown COMPREHENSIVE METABOLIC 40223 AGAP 11 mmol/L 2019 Unknown COMPLETE BLOOD COUNT [id number] WBC 5.3 10e9/L 09/30/19 20 Unknown COMPLETE BLOOD COUNT [id number] RBC 4.16 10e12/L 2019 Unknown COMPLETE BLOOD COUNT 5481656 HEMOGLOBIN 14.1 g/dL 09/30/19 20 Unknown COMPLETE BLOOD COUNT 7808837 HEMATOCRIT 42.6 % 09/30/19 20 Unknown COMPLETE BLOOD COUNT [id number] MCV 102.4 fL 0 Unknown COMPLETE BLOOD COUNT [id number] MCH 33.9 pg 0 Unknown COMPLETE BLOOD COUNT 4941090 MCHC 33.1 g/dL 0 Unknown COMPLETE BLOOD COUNT 0361360 PLATELET COUNT 273 10e9/L 11/2019 Unknown COMPLETE BLOOD COUNT 0522027 Mean Plt Volume 9.4 fL 11/2019 Unknown COMPLETE BLOOD COUNT 9108682 Neut Auto 57.3 % 0 Unknown COMPLETE BLOOD COUNT 9386074 Lymph Auto 29.3 % 09/30/19 20 Unknown COMPLETE BLOOD COUNT 7167340 [place] Auto 7.6 % 0 Unknown COMPLETE BLOOD COUNT 2168830 RDW 13.8 % 0 Unknown COMPLETE BLOOD COUNT 9269603 Eos Auto 4.5 % 0 Unknown COMPLETE BLOOD COUNT 5748224 Baso Auto 1.3 % 0 Unknown COMPLETE BLOOD COUNT 1556295 Neutrophil Abs 3.04 10e9/L Unknown COMPLETE BLOOD COUNT [id number] Lymphocyte Abs 1.55 10e9/L Unknown COMPLETE BLOOD COUNT [id number] Monocyte Abs 0.40 10e9/L 11/2019 Unknown COMPLETE BLOOD COUNT 0194466 Eosinophil Abs 0.24 10e9/L Unknown COMPLETE BLOOD COUNT 9566449 RDW-SD 50.7 fL 0 Unknown COMPLETE BLOOD COUNT [id number] Basophil Abs 0.07 10e9/L 11/2019 Unknown Procedures Procedure Codes Date ROUTINE VENIPUNCTURE CPT-4: 98371 04/30/2021 COMPREHEN METABOLIC PANEL CPT-4: 64851 04/30/2021 COMPLETE CBC W/AUTO DIFF WBC CPT-4: 80513 04/30/2021 UA W/MICR CPT-4: 61234 02/15/2021 URINE CULTURE/ COLONY COUNT CPT-4: 62927 02/02/2021 ROUTINE VENIPUNCTURE CPT-4: 71469 01/25/2021 COMPREHEN METABOLIC PANEL CPT-4: 86635 01/25/2021 COMPLETE CBC W/AUTO DIFF WBC CPT-4: 33208 01/25/2021 URINE CULTURE/ COLONY COUNT CPT-4: 77319 01/25/2021 URINALYSIS NONAUTO W/O SCOPE CPT-4: 44238 01/25/2021 ROUTINE VENIPUNCTURE CPT-4: 59091 07/20/2020 COMPREHEN METABOLIC PANEL CPT-4: 48575 07/20/2020 ASSAY OF FREE THYROXINE CPT-4: 69716 07/20/2020 ASSAY THYROID STIM HORMONE CPT-4: 09804 07/20/2020 COMPLETE CBC W/AUTO DIFF WBC CPT-4: 56347 07/20/2020 RBC SED RATE AUTOMATED CPT-4: 61132 07/20/2020 URINALYSIS NONAUTO W/O SCOPE CPT-4: 71068 04/30/2020 URINE CULTURE/ COLONY COUNT CPT-4: 97248 04/30/2020 ROUTINE VENIPUNCTURE CPT-4: 22785 04/07/2020 COMPLETE CBC W/AUTO DIFF WBC CPT-4: 82042 04/07/2020 VITAMIN B-12 CPT-4: 73237 04/07/2020 ASSAY OF GGT CPT-4: 52232 04/07/2020 ROUTINE VENIPUNCTURE CPT-4: 36951 09/30/2019 ASSAY OF FREE THYROXINE CPT-4: 84483 09/30/2019 ASSAY THYROID STIM HORMONE CPT-4: 13463 09/30/2019 COMPREHEN METABOLIC PANEL CPT-4: 96793 09/30/2019 COMPLETE CBC W/AUTO DIFF WBC CPT-4: 98878 09/30/2019 LIPID PANEL CPT-4: 89584 09/30/2019 Vital Signs Date Vital 05/05/2021 Blood Pressure 1: 118/76 Code: 8480-6 BMI: 13.1 Code: 21838-7 Heart Rate 1: 67 bpm Height: 5'5" Code: 8302-2 Respiratory Rate: 16 bpm Temperatu re: 36.4 (C) / 97.5 (F) Weight: 79 lbs Code: 55396-2 01/25/2021 Blood Pressure 1: 102/68 Code: 8480-6 Heart Rate 1: 76 bpm Respiratory Rate: 20 bpm SpO2: 100% Temperature: 36.9 (C) / 98.5 (F) We ight: 87 lbs Code: 12180-1 12/30/2020 Blood Pressure 1: 134/80 Code: 8480-6 BMI: 14.1 Code: 95747-1 Heart Rate 1: 72 bpm Height: 5'5" Code: 8302-2 Respiratory Rate: 18 bpm SpO2: 97% Temperature: 36.6 (C) / 97.8 (F) Weight: 85 lbs Code: 56309-0 11/10/2020 Blood Pressure 1: 130/74 Code: 8480-6 Heart Rate 1: 56 bpm Respiratory Rate: 20 bpm SpO2: 98% Temperature: 36.3 (C) / 97.4 (F) We ight: 85 lbs Code: 15013-6 07/29/2020 Blood Pressure 1: 121/65 Code: 8480-6 BMI: 14.3 Code: 39780-4 Heart Rate 1: 58 bpm Height: 5'5" Code: 8302-2 Respiratory Rate: 15 bpm SpO2: 98% Temperature: 36.9 (C) / 98.4 (F) Weight: 86 lbs Code: 27263-3 07/20/2020 Blood Pressure 1: 123/69 Code: 8480-6 Heart Rate 1: 68 bpm Respiratory Rate: 15 bpm SpO2: 99% Temperature: 36.6 (C) / 97.8 (F) We ight: 83 lbs Code: 90013-9 04/30/2020 Blood Pressure 1: 128/82 Code: 8480-6 Heart Rate 1: 68 bpm Respiratory Rate: 20 bpm SpO2: 95% Temperature: 36.5 (C) / 97.7 (F) We ight: 91 lbs Code: 26815-0 04/09/2020 Blood Pressure 1: 130/78 Code: 8480-6 Heart Rate 1: 68 bpm Respiratory Rate: 20 bpm SpO2: 99% Temperature: 36.3 (C) / 97.4 (F) We ight: 90 lbs Code: 01972-4 11/22/2019 Temperature: 36.3 (C) / 97.3 (F) 09/10/2019 Blood Pressure 1: 128/72 Code: 8480-6 BMI: 15.6 Code: 49017-5 Heart Rate 1: 68 bpm Height: 5'5" Code: 8302-2 Respiratory Rate: 20 bpm SpO2: 97% Temperature: 36.6 (C) / 97.9 (F) Weight: 94 lbs Code: 55210-4 Functional Status No Functional Status data Reason [...] visit Encounters Encounter Performer Location Codes Date ([id number]) OFFICE/OUTPATIENT VISIT EST Diagnosis: Mass of right lung[ICD10: R91.8] Diagnosis: Right patella fracture[ICD10: S82.001A] Diagnosis: Abnormal weight loss[ICD10: R63.4] Diagnosis: Coronary artery arteriosclerosis[ICD10: I25.10] Diagnosis: Fatigue[ICD10: R53.83] Robson Maharaj [employer] CPT-4: 98774 05/05/2021 ([id number]) NURSE/OUTPATIENT VISIT EST Diagnosis: Essential (primary) hypertension[ICD10: I10] Diagnosis: Fatigue[ICD10: R53.83] Diagnosis: Blood loss anemia[ICD10: D50.0] Robson PEPPER [facility]over[facility] CPT-4: 84290 04/30/2021 ([id number]) NURSE/OUTPATIENT VISIT EST Diagnosis: Urinary tract infection[ICD10: N39.0] Robson PEPPER [facility] CPT-4: 76343 02/02/2021 ([id number]) OFFICE/OUTPATIENT VISIT EST Diagnosis: Fatigue[ICD10: R53.83] Diagnosis: Blood loss anemia[ICD10: D50.0] Diagnosis: Coronary artery disease[ICD10: I25.10] Diagnosis: Hematuria[ICD10: R31.9] Robson CHANEL [employer] CPT-4: 91507 01/25/2021 ([id number]) OFFICE/OUTPATIENT VISIT EST Diagnosis: GERD (gastroesophageal reflux disease)[ICD10: K21.9] Diagnosis: Duodenal ulcer[ICD10: K26.9] Diagnosis: Coronary artery disease[ICD10: I25.10] Diagnosis: Anxiety[ICD10: F41.9] Diagnosis: Blood loss anemia[ICD10: D50.0] Robson [facility]ORMICK [facility] CPT-4: 37797 12/30/2020 ([id number]) NURSE/OUTPATIENT VISIT EST Diagnosis: Edema[ICD10: R60.9] Robson MCCORMICK [facility] CPT-4: 58251 12/21/2020 ([id number]) OFFICE/OUTPATIENT VISIT EST Diagnosis: Coronary artery disease[ICD10: I25.10] Diagnosis: Essential (primary) hypertension[ICD10: I10] Diagnosis: Stress reaction[ICD10: F43.0] Diagnosis: Insomnia[ICD10: G47.00] Diagnosis: Pulmonary nodule[ICD10: R91.1] Robson [facility]ORMICK [facility] CPT-4: 68037 11/10/2020 ([id number]) NO CHARGE Diagnosis: Mass of upper lobe of right lung[ICD10: R91.8] Robson MCCORMICK [facility] CPT-4: 35629 07/29/2020 ([id number]) OFFICE/OUTPATIENT VISIT EST Diagnosis: Fatigue[ICD10: R53.83] Diagnosis: Lymphadenopathy of head and neck[ICD10: R59.1] Diagnosis: Weight loss, non-intentional[ICD10: R63.4] Diagnosis: History of melanoma[ICD10: Z85.820] Diagnosis: Skin lesion[ICD10: L98.9] Sara Mingo ROBSON NUNEZ [facility] CPT-4: 65763 07/20/2020 ([id number]) OFFICE/OUTPATIENT VISIT EST Diagnosis: Urinary tract infection[ICD10: N39.0] [facility] 08081 04/30/2020 ([id number]) OFFICE/OUTPATIENT VISIT EST Diagnosis: Dizziness[ICD10: R42] Diagnosis: Depressed mood with feeling of loneliness[ICD10: F32.9] Diagnosis: Insomnia[ICD10: G47.00] Robsondouglas CHANEL [facility] CPT-4: 60361 04/09/2020 ([id number]) NURSE/OUTPATIENT VISIT EST Diagnosis: Coronary artery disease[ICD10: I25.10] Diagnosis: Fatigue[ICD10: R53.83] Diagnosis: Essential (primary) hypertension[ICD10: I10] Robson MCCORMICK DO [facility] CPT-4: 70925 04/07/2020 ([id number]) OFFICE/OUTPATIENT VISIT EST Diagnosis: Fatigue[ICD10: R53.83] Meena Li [facility] CPT-4: 50298 11/22/2019 ([id number]) NURSE/OUTPATIENT VISIT EST Diagnosis: Essential (primary) hypertension[ICD10: I10] Diagnosis: Coronary artery disease[ICD10: I25.10] Diagnosis: Encounter for general adult medical examination with abnormal findings[ICD10: Z00.01] Robson Anny [facility] CPT-4: 24718 09/30/2019 ([id number]) OFFICE/OUTPATIENT VISIT NEW Diagnosis: Essential (primary) hypertension[ICD10: I10] Diagnosis: Coronary artery disease[ICD10: I25.10] Diagnosis: Aortic valve stenosis with insufficiency[ICD10: I35.2] Robson MCCORMICK [facility] CPT-4: 80991 09/10/2019 Plan of Care Planned Activity Notes [...] ICD-9 : 414.00 ICD-10 : I25.10 05/05/2021 Visit Plan: 04/30/2021 App[facility]ment[facility] [phone] [id number] [facility] 04/30/2021 Appointment: Robson Mccormick WPtel: [address] [place] [address] US scheduled by VC CANCELED 03/10/2021 Appointment: Robson Mccormick WPtel: [phone] [place], [place] [phone] US patient unable to leave urine CANCELED Appointment: Robson Mccormick WPtel: [phone] [place], [place] [phone] US CANCELED 02/02/2021 Appointment: Robson Mccormick WPtel: [address] [place] [address] US UA 02/02/2021 Care Plan: UA W/MICR ADD ON ORDER LOINC : 60964-7 Pending 01/26/2021 Visit Diagnosis Plan: Hematuria Discussion: Culture ur ine ICD-9 : 599.70 ICD-10 : R31.9 01/25/2021 Visit Diagnosis Plan: Blood loss anemia Discussion: Ch real CBC now ICD-9 : 280.0 ICD-10 : D50.0 01/25/2021 Appointment: Robson Mccormick WPtel: [address] [place], [place] [id number] ACUTE ILLNESS 01/25/2021 Appointment: Sara Aguila WPtel: [address] [place], [place] [id number] [place] CANCELED 01/01/2021 Visit Diagnosis Plan: Anxiety [...] Visit Diagnosis Plan: GERD ([facility]) Discussion: Stable on pantoprazole ICD-9 : 530.81 ICD-10 : K21.9 12/30/2020 Appointment: Robson Mccormick WPtel: [address] [place], [place] [phone] [place] FOLLOW UP 12/30/2020 Appointment: Robson Mccormick WPtel: [address] [place], [place] [phone] NURSE SERVICES 12/21/2020 Visit Diagnosis Plan: Insomnia [...] : F43.0 11/10/2020 Appointment: Robson Mccormick WPtel: [address] [place], [place] [phone] [place] FOLLOW UP 11/10/2020 Patient Education: [email or web address] [id number] [email or web address] Completed 11/10/2020 Visit Diagnosis Plan: Mass of upper lobe of right lung Discussion: CT scan of lung results discussed with patient and told this looks like cancer Agrees to see pulmonology to see if will be amenable to bronchoscopy to get cells/washings ICD-9 : 786.6 ICD-10 : R91.8 07/29/2020 Appointment: Robson Mccormick WPtel: [id number] [place] WORK IN 07/29/2020 Care Plan: Referral Order SNOMED-CT : [id number] Pending 07/29/2020 Care Plan: CT SFT TSUE NCK W/O & W/DYE L OINC : 20425-6 Pending 07/21/2020 Visit Diagnosis Plan: Fatigue Discussion: [...] 07/20/2020 Appointment: Sara Aguila WPtel: [phone] [facility] [facility] ACUTE ILLNESS 07/20/2020 Patient Education: [...] ICD-10 : N39.0 04/30/2020 Appointment: Meena Li [address] [place], [place] [id number] ACUTE ILLNESS 04/30/2020 Appointment: Meena Li [address] [place], [place] [id number] 04/21/2020 1020---patient needed seen fo [...] : F32.9 04/09/2020 Appointment: Robson Mccormick WPtel: [address] [place], [place] [id number] [place] FOLLOW UP 04/09/2020 Care Plan: COMPREHEN METABOLIC [place] : [id number] Pending 04/09/2020 Appointment: Robson Mccormick WPtel: [address] [place] [address] US LAB 04/07/2020 Visit Diagnosis Plan: Fatigue Discussion: no other sym ptoms other than fatigue for 4 weeks so will update labs. order sent to [facility] for blood work and ua with c&s. instructed to call office with new or worsening symptoms. ICD-9 : 780.79 ICD-10 : R53.83 11/22/2019 Appointment: Meena Li [address] [place] [address] TELEMEDICINE 11/22/2019 Appointment: Robson Mccormick WPtel: [address] [place], [place] [phone] US LAB 09/30/2019 Visit Diagnosis Plan: Coronary [...] : I10 09/10/2019 Appointment: Robson Mccormick WPtel: [facility] [place], [place] [phone] [place] NEW PATIENT 09/10/2019 Patient Education: carvedilol- [employer] C[employer]on [id number] [email or web address] Completed 09/10/2019 Appointment: Robson Mccormick WPtel: [address] [place], [place] [phone] US RESCHEDULED 08/20/2019 Appointment: Robson Mccormick WPtel: [address] [place], [place] [phone] US CANCELED 07/22/2019 Referral: Vikram Maguire WPtel: [address] [facility] [address] [id number] [place] Referral Appointment Requested Instructions No Instructions Medical Equipment No Medical Equipment data Health Concerns Section Health Concerns data not found Goals Section Goals data not found Interventions Section Interventions data not found Health Status Evaluations/Outcomes Section Health Status Evaluations/Outcomes data not found Advance Directives No Advance Directive data
--- OUTSIDE RECORDS SUMMARY | 2021-05-18 09:16 | XMS REPORT | CCD ---
Author Author Erica Mccormick D.O. Organization [facility] Address [address] [place] [address] Phone Care Team Providers Care Sausage Cutter Name Role Phone PP Unavailable CCM Unavailable Summary Purpose Interface Exchange Insurance Providers Payer name Policy type / Coverage type Covered democrat ID Effective Begin Date Effective End Date WPS MEDICARE PART B [place] Medicare Part B [id number] Unknown Unknown [employer] [place] [employer] [place] MEDIC[place] SU[place] Medicare Part B X [id number] Unknown Unknown Family History Family History data not found Social History Social History Element Codes Description Effective Dates Marital status Unknown 09/10/2019 Number of children Unknown 1 09/10/2019 Employment Unknown Retired 09/10/[address]: 8517519 Former smoker quit 201109/10/[address]: 321648 Currently drinks alcohol 09/09 Frequency of drinks SNOMED CT: 915654797 1-4 drinks per week Allergies, Adverse Reactions, [...] Fill Instructions tramadol 50 mg tablet RxNorm: 060380 1 Tablet(s) Oral t wo times a day as needed for pain 03/15/2021 No Stop Date Active ferrous sulfate 325 mg (65 mg iron) tablet RxNorm: 676673 Take 1 Tablet(s) Oral QD 01/28/2021 05/04/2021 Inactive pantoprazole 20 mg tablet,delayed release RxNorm: 951529 1 Tablet(s) Oral two times a day 12/22/2020 03/21/2021 Inactive pantoprazole 20 mg tablet,delayed release RxNorm: 952399 1 Tablet(s) Oral two times a day 12/22/2020 12/22/2020 Inactive paroxetine 20 mg tablet RxNorm: 1343334 1 Tablet(s) Oral QD 021 05/04/2021 Inactive paroxetine 20 mg tablet RxNorm: 0412538 1 Tablet(s) Oral QD 021 12/15/2020 Inactive paroxetine 20 mg tablet RxNorm: 5460179 1 Tablet(s) Oral QD 021 12/15/2020 Inactive MagOx 400 mg (241.3 mg magnesium) tablet RxNorm: 987349 Take 1 Tablet(s) Oral every night at bedtime with melatonin 11/23/2020 01/24/2021 Inactive melatonin 3 mg tablet RxNorm: 284221 Take 1-2 Tablet(s) Oral every night at bedtime 11/18/2020 No Stop Date Active Plavix 75 mg tablet RxNorm: 391987 Take 1 Tablet(s) Oral QD No Stop Date Active trazodone 50 mg tablet RxNorm: 878424 Take 1-2 Tablet(s ) Oral QPM as needed for sleep 11/10/2020 11/22/2020 Inactive atorvastatin 40 mg tablet RxNorm: 969761 Take 1 Tablet( s) Oral every night at bedtime 11/10/2020 05/04/2021 Inactive alprazolam 0.25 mg tablet RxNorm: 996511 1/2-1 Tablet(s ) Oral QPM as needed for sleep 08/03/2020 09/01/2020 Inactive alprazolam 0.25 mg tablet RxNorm: 990035 2-1 Tablet(s ) Oral QPM as needed for sleep 08/03/2020 08/02/2020 Inactive Aspirin Low Dose 81 mg tablet,delayed release RxNorm: 390111 1 Tablet(s) Oral QD 09/10/2019 No Stop Date Active carvedilol 6.25 mg tablet RxNorm: 962083 1 Tablet(s) Oral two t imes a day 09/10/2019 11/09/2020 Inactive Fish Oil 1,000 mg (120 mg-180 mg) capsule RxNorm: 1 Caps ule(s) Oral QD 09/10/2019 11/25/2019 Inactive losartan 25 mg tablet RxNorm: 351267 1 Tablet(s) Oral QD 09/10/2019 0 05/04/2021 Inactive Medication Administered No Medication Administered data Immunizations No Immunization data Results Observation Observation Code Item Item Code Result Date S ervice Location GFR CALC 5851702 GFR Non Afr Amr >60 mL/min 04/30/2021 Un known GFR CALC [id number] GFR Afr Amr >60 mL/min 04/30/2021 Unknow n COMPREHENSIVE METABOLIC 24903 AST 13 U/L 2021 Unknown COMPREHENSIVE METABOLIC 66171 ALT 12 U/L 2021 Unknown COMPREHENSIVE METABOLIC 69855 BUN 15 mg/dL 2021 Unknown COMPREHENSIVE METABOLIC 35298 ALBUMIN 4.0 g/dL 2021 Unknown COMPREHENSIVE METABOLIC 89828 CHLORIDE 103 mmol/L 04/30 Unknown COMPREHENSIVE METABOLIC 26351 Bili Total 0.4 mg/dL 04/30 Unknown COMPREHENSIVE METABOLIC 75799 ALK PHOS 75 U/L 2021 Unknown COMPREHENSIVE METABOLIC 19838 SODIUM 136 mmol/L 04/30 Unknown COMPREHENSIVE METABOLIC 09402 CREATININE 0.69 mg/dL 10/2021 Unknown COMPREHENSIVE METABOLIC 98121 CALCIUM 8.9 mg/dL 2021 Unknown COMPREHENSIVE METABOLIC 65007 POTASSIUM 4.3 mmol/L 04/30 Unknown COMPREHENSIVE METABOLIC 30574 Total Protein 6.7 g/dL Unknown COMPREHENSIVE METABOLIC 62056 Glucose 94 mg/dL 2021 Unknown COMPREHENSIVE METABOLIC 67891 Bicarbonate 25 mmol/L 10/2021 Unknown COMPREHENSIVE METABOLIC 51728 AGAP 8 mmol/L 2021 Unknown COMPLETE BLOOD COUNT [id number] WBC 4.6 10e9/L 04/30/19 22 Unknown COMPLETE BLOOD COUNT [id number] RBC 3.76 10e12/L 2021 Unknown COMPLETE BLOOD COUNT [id number] HEMOGLOBIN 10.9 g/dL 04/30/19 22 Unknown COMPLETE BLOOD COUNT [id number] HEMATOCRIT 35.3 % 04/30/19 22 Unknown COMPLETE BLOOD COUNT [id number] MCV 93.9 fL 2 Unknown COMPLETE BLOOD COUNT [id number] MCH 29.0 pg 2 Unknown COMPLETE BLOOD COUNT [id number] MCHC 30.9 g/dL 2 Unknown COMPLETE BLOOD COUNT [id number] PLATELET COUNT 254 10e9/L 10/2021 Unknown COMPLETE BLOOD COUNT [id number] Mean Plt Volume 9.0 fL 10/2021 Unknown COMPLETE BLOOD COUNT [id number] Neut Auto 73.2 % 2 Unknown COMPLETE BLOOD COUNT [id number] Lymph Auto 14.3 % 04/30/19 22 Unknown COMPLETE BLOOD COUNT [id number] Cochran Auto 8.1 % 2 Unknown COMPLETE BLOOD COUNT 1344817 RDW 17.8 % 2 Unknown COMPLETE BLOOD COUNT [id number] Eos Auto 3.7 % 2 Unknown COMPLETE BLOOD COUNT [id number] Baso Auto 0.7 % 2 Unknown COMPLETE BLOOD COUNT [id number] Neutrophil Abs 3.37 10e9/L Unknown COMPLETE BLOOD COUNT [id number] Lymphocyte Abs 0.66 10e9/L Unknown COMPLETE BLOOD COUNT [id number] Monocyte Abs 0.37 10e9/L 10/2021 Unknown COMPLETE BLOOD COUNT [id number] Eosinophil Abs 0.17 10e9/L Unknown COMPLETE BLOOD COUNT [id number] RDW-SD 59.5 fL 2 Unknown COMPLETE BLOOD COUNT [id number] Basophil Abs 0.03 10e9/L 10/2021 Unknown UA W/MICR 99279 UA Protein TNP:Specimen Not Received Unknown UA W/MICR 90571 UA Hemoglobin TNP:Specimen Not Received 02/17/2021 Unknown UA W/MICR 01204 UA Glucose TNP:Specimen Not Received Unknown UA W/MICR 16046 UA Ketones TNP:Specimen Not Received Unknown UA W/MICR 79798 UA pH TNP:Specimen Not Received Unknown UA W/MICR 09174 U Spec [place] TNP:Specimen Not Received 02/17/2021 Unknown UA W/MICR 44822 UA Bilirubin TNP:Specimen Not Received 02/17/2021 Unknown UA W/MICR 86485 UA Leuk [place]ster[place] TNP:Specimen Not Receive d 02/17/2021 Unknown UA W/MICR 74945 UA Nitrite TNP:Specimen Not Received Unknown UA W/MICR 91455 UA WBC/hpf TNP:Specimen Not Received Unknown UA W/MICR 55451 UA RBC hpf TNP:Specimen Not Received Unknown UA W/MICR 24059 UA Protein TNP:Specimen Integrity 01/27 Unknown UA W/MICR 17791 UA Hemoglobin TNP:Specimen Integrity Unknown UA W/MICR 08186 UA Glucose TNP:Specimen Integrity 01/27 Unknown UA W/MICR 03514 UA Ketones TNP:Specimen Integrity 01/27 Unknown UA W/MICR 50925 UA pH TNP:Specimen Integrity 2020 Unknown UA W/MICR 91335 U Spec [place] TNP:Specimen Integrity 1 Unknown UA W/MICR 53473 UA Bilirubin TNP:Specimen Integrity 09/2020 Unknown UA W/MICR 15274 UA Leuk [place] TNP:Specimen Integrity 01/27/2021 Unknown UA W/MICR 31219 UA Nitrite TNP:Specimen Integrity 01/27 Unknown UA W/MICR 66693 UA WBC/hpf TNP:Specimen Integrity 01/27 Unknown UA W/MICR 69858 UA RBC hpf TNP:Specimen Integrity 01/27 Unknown COMPLETE BLOOD COUNT [id number] WBC 6.1 10e9/L 01/26/20 21 Unknown COMPLETE BLOOD COUNT [id number] RBC 3.34 10e12/L 2020 Unknown COMPLETE BLOOD COUNT [id number] HEMOGLOBIN 8.8 g/dL 01/26/20 21 Unknown COMPLETE BLOOD COUNT [id number] HEMATOCRIT 28.5 % 01/26/20 21 Unknown COMPLETE BLOOD COUNT [id number] MCV 85.3 fL 1 Unknown COMPLETE BLOOD COUNT [id number] MCH 26.3 pg 1 Unknown COMPLETE BLOOD COUNT [id number] MCHC 30.9 g/dL 1 Unknown COMPLETE BLOOD COUNT 9110357 PLATELET COUNT 268 10e9/L 07/2020 Unknown COMPLETE BLOOD COUNT [id number] Mean Plt Volume 8.7 fL 07/2020 Unknown COMPLETE BLOOD COUNT 6769730 Neut Auto 67.7 % 1 Unknown COMPLETE BLOOD COUNT [id number] Lymph Auto 19.4 % 01/26/20 21 Unknown COMPLETE BLOOD COUNT [id number] Cochran Auto 8.4 % 1 Unknown COMPLETE BLOOD COUNT 7690378 RDW 16.7 % 1 Unknown COMPLETE BLOOD COUNT 2120682 Eos Auto 3.8 % 1 Unknown COMPLETE BLOOD COUNT 8866941 Baso Auto 0.7 % 1 Unknown COMPLETE BLOOD COUNT [id number] Neutrophil Abs 4.13 10e9/L Unknown COMPLETE BLOOD COUNT [id number] Lymphocyte Abs 1.18 10e9/L Unknown COMPLETE BLOOD COUNT [id number] Monocyte Abs 0.51 10e9/L 07/2020 Unknown COMPLETE BLOOD COUNT [id number] Eosinophil Abs 0.23 10e9/L Unknown COMPLETE BLOOD COUNT [id number] RDW-SD 50.9 fL 1 Unknown COMPLETE BLOOD COUNT [id number] Basophil Abs 0.04 10e9/L 07/2020 Unknown GFR CALC [id number] GFR Non Afr Amr >60 mL/min 01/25/2021 Un known GFR CALC [id number] GFR Afr Amr >60 mL/min 01/25/2021 Unknow n COMPREHENSIVE METABOLIC 15667 AST 17 U/L 2020 Unknown COMPREHENSIVE METABOLIC 15432 ALT 13 U/L 2020 Unknown COMPREHENSIVE METABOLIC 47613 BUN 14 mg/dL 2020 Unknown COMPREHENSIVE METABOLIC 48921 ALBUMIN 4.1 g/dL 2020 Unknown COMPREHENSIVE METABOLIC 25472 CHLORIDE 102 mmol/L 01/25 Unknown COMPREHENSIVE METABOLIC 90713 Bili Total 0.4 mg/dL 01/25 Unknown COMPREHENSIVE METABOLIC 16959 ALK PHOS 85 U/L 2020 Unknown COMPREHENSIVE METABOLIC 07644 SODIUM 134 mmol/L 01/25 Unknown COMPREHENSIVE METABOLIC 76556 CREATININE 0.71 mg/dL 07/2020 Unknown COMPREHENSIVE METABOLIC 98690 CALCIUM 9.3 mg/dL 2020 Unknown COMPREHENSIVE METABOLIC 02865 POTASSIUM 4.3 mmol/L 01/25 Unknown COMPREHENSIVE METABOLIC 49047 Total Protein 7.0 g/dL Unknown COMPREHENSIVE METABOLIC 30441 Glucose 111 mg/dL 2020 Unknown COMPREHENSIVE METABOLIC 43618 Bicarbonate 24 mmol/L 07/2020 Unknown COMPREHENSIVE METABOLIC 32550 AGAP 8 mmol/L 2020 Unknown COMPREHENSIVE METABOLIC 16426 AST 16 U/L 2019 Unknown COMPREHENSIVE METABOLIC 96751 ALT 12 U/L 2019 Unknown COMPREHENSIVE METABOLIC 54295 BUN 13 mg/dL 2019 Unknown COMPREHENSIVE METABOLIC 37811 ALBUMIN 4.1 g/dL 2019 Unknown COMPREHENSIVE METABOLIC 74662 CHLORIDE 96 mmol/L 2019 Unknown COMPREHENSIVE METABOLIC 14476 Bili Total 1.1 mg/dL 04/09 Unknown COMPREHENSIVE METABOLIC 33100 ALK PHOS 80 U/L 2019 Unknown COMPREHENSIVE METABOLIC 99552 SODIUM 131 mmol/L 04/09 Unknown COMPREHENSIVE METABOLIC 88603 CREATININE 0.76 mg/dL 03/24 Unknown COMPREHENSIVE METABOLIC 32708 CALCIUM 9.0 mg/dL 2019 Unknown COMPREHENSIVE METABOLIC 23300 POTASSIUM 4.2 mmol/L 04/09 Unknown COMPREHENSIVE METABOLIC 53002 Total Protein 6.8 g/dL Unknown COMPREHENSIVE METABOLIC 43306 Glucose 101 mg/dL 2019 Unknown COMPREHENSIVE METABOLIC 46077 Bicarbonate 25 mmol/L 03/24 Unknown COMPREHENSIVE METABOLIC 37658 AGAP 10 mmol/L 2019 Unknown GFR CALC 1242610 GFR Non Afr Amr >60 mL/min 04/09/2020 Un known GFR CALC [id number] GFR Afr Amr >60 mL/min 04/09/2020 Unknow n GAMMA GLUTAMYL TRANSFERASE 41048 GGT 19 U/L Unknown COMPLETE BLOOD COUNT [id number] WBC 6.3 10e9/L 04/07/20 20 Unknown COMPLETE BLOOD COUNT [id number] RBC 4.36 10e12/L 2019 Unknown COMPLETE BLOOD COUNT [id number] HEMOGLOBIN 15.2 g/dL 04/07/20 20 Unknown COMPLETE BLOOD COUNT [id number] HEMATOCRIT 43.8 % 04/07/20 20 Unknown COMPLETE BLOOD COUNT 8376511 MCV 100.5 fL 0 Unknown COMPLETE BLOOD COUNT [id number] MCH 34.9 pg 0 Unknown COMPLETE BLOOD COUNT 4174998 MCHC 34.7 g/dL 0 Unknown COMPLETE BLOOD COUNT 3070310 PLATELET COUNT 254 10e9/L Unknown COMPLETE BLOOD COUNT 4499812 Mean Plt Volume 9.9 fL Unknown COMPLETE BLOOD COUNT 7595673 Neut Auto 63.3 % 0 Unknown COMPLETE BLOOD COUNT 1957431 Lymph Auto 24.5 % 04/07/20 Unknown COMPLETE BLOOD COUNT 4999061 Cochran Auto 8.4 % 0 Unknown COMPLETE BLOOD COUNT 9111828 RDW 12.8 % 0 Unknown COMPLETE BLOOD COUNT 5404288 Eos Auto 3.2 % 0 Unknown COMPLETE BLOOD COUNT 0678269 Baso Auto 0.6 % 0 Unknown COMPLETE BLOOD COUNT 5568689 Neutrophil Abs 3.99 10e9/L Unknown COMPLETE BLOOD COUNT 5200284 Lymphocyte Abs 1.54 10e9/L Unknown COMPLETE BLOOD COUNT [id number] Monocyte Abs 0.53 10e9/L 03/24 Unknown COMPLETE BLOOD COUNT [id number] Eosinophil Abs 0.20 10e9/L Unknown COMPLETE BLOOD COUNT 9851708 RDW-SD 47.6 fL 0 Unknown COMPLETE BLOOD COUNT [id number] Basophil Abs 0.04 10e9/L 03/24 Unknown VITAMIN B 12 94770 VITAMIN B12 661 pg/mL 04/07/2020 Unkn own LIPID GROUP 11493 Cholesterol 168 mg/dL 09/30/2019 Unkno wn LIPID GROUP 59755 Triglyceride 141 mg/dL 09/30/2019 Unkn own LIPID GROUP 66997 HDL CHOLESTEROL 66 mg/dL 09/30/2019 U nknown LIPID GROUP 10711 Chol/HDL Ratio 2.55 ratio 09/30/2019 U nknown LIPID GROUP 57378 NON-HDL Chol 102 mg/dL 09/30/2019 Unkn own LIPID GROUP 75186 LDL Cholesterol 74 mg/dL 09/30/2019 U nknown FREE T4 23303 T4 Free 0.76 ng/dL 09/30/2019 Unknown THYROID STIMULATING HORMONE 20997 TSH 2.186 uIU/mL 09/30/2019 Unknown GFR CALC 3504756 GFR Non Afr Amr >60 mL/min 09/30/2019 Un known GFR CALC 4682259 GFR Afr Amr >60 mL/min 09/30/2019 Unknow n COMPREHENSIVE METABOLIC 62946 AST 14 U/L 2019 Unknown COMPREHENSIVE METABOLIC 79207 ALT 11 U/L 2019 Unknown COMPREHENSIVE METABOLIC 19642 BUN 15 mg/dL 2019 Unknown COMPREHENSIVE METABOLIC 90168 ALBUMIN 4.0 g/dL 2019 Unknown COMPREHENSIVE METABOLIC 34957 CHLORIDE 96 mmol/L 2019 Unknown COMPREHENSIVE METABOLIC 29841 Bili Total 0.9 mg/dL 09/29 Unknown COMPREHENSIVE METABOLIC 25917 ALK PHOS 72 U/L 2019 Unknown COMPREHENSIVE METABOLIC 10772 SODIUM 132 mmol/L 09/29 Unknown COMPREHENSIVE METABOLIC 14321 CREATININE 0.73 mg/dL 11/2019 Unknown COMPREHENSIVE METABOLIC 75177 CALCIUM 9.1 mg/dL 2019 Unknown COMPREHENSIVE METABOLIC 28690 POTASSIUM 4.6 mmol/L 09/29 Unknown COMPREHENSIVE METABOLIC 65022 Total Protein 6.4 g/dL Unknown COMPREHENSIVE METABOLIC 40484 Glucose 97 mg/dL 2019 Unknown COMPREHENSIVE METABOLIC 61798 Bicarbonate 25 mmol/L 11/2019 Unknown COMPREHENSIVE METABOLIC 22663 AGAP 11 mmol/L 2019 Unknown COMPLETE BLOOD COUNT 8795915 WBC 5.3 10e9/L 09/30/19 20 Unknown COMPLETE BLOOD COUNT [id number] RBC 4.16 10e12/L 2019 Unknown COMPLETE BLOOD COUNT 6470768 HEMOGLOBIN 14.1 g/dL 09/30/19 20 Unknown COMPLETE BLOOD COUNT 4636044 HEMATOCRIT 42.6 % 09/30/19 20 Unknown COMPLETE BLOOD COUNT 3978603 MCV 102.4 fL 0 Unknown COMPLETE BLOOD COUNT 6171261 MCH 33.9 pg 0 Unknown COMPLETE BLOOD COUNT 5143562 MCHC 33.1 g/dL 0 Unknown COMPLETE BLOOD COUNT 9185648 PLATELET COUNT 273 10e9/L 11/2019 Unknown COMPLETE BLOOD COUNT 3091129 Mean Plt Volume 9.4 fL 11/2019 Unknown COMPLETE BLOOD COUNT 6769995 Neut Auto 57.3 % 0 Unknown COMPLETE BLOOD COUNT 6254988 Lymph Auto 29.3 % 09/30/19 20 Unknown COMPLETE BLOOD COUNT 4508763 Cochran Auto 7.6 % 0 Unknown COMPLETE BLOOD COUNT 6819812 RDW 13.8 % 0 Unknown COMPLETE BLOOD COUNT 9621662 Eos Auto 4.5 % 0 Unknown COMPLETE BLOOD COUNT 0367840 Baso Auto 1.3 % 0 Unknown COMPLETE BLOOD COUNT 6760216 Neutrophil Abs 3.04 10e9/L Unknown COMPLETE BLOOD COUNT 7514005 Lymphocyte Abs 1.55 10e9/L Unknown COMPLETE BLOOD COUNT [id number] Monocyte Abs 0.40 10e9/L 11/2019 Unknown COMPLETE BLOOD COUNT 7769657 Eosinophil Abs 0.24 10e9/L Unknown COMPLETE BLOOD COUNT [id number] RDW-SD 50.7 fL 0 Unknown COMPLETE BLOOD COUNT [id number] Basophil Abs 0.07 10e9/L 11/2019 Unknown Procedures Procedure Codes Date ROUTINE VENIPUNCTURE CPT-4: 70642 04/30/2021 COMPREHEN METABOLIC PANEL CPT-4: 15976 04/30/2021 COMPLETE CBC W/AUTO DIFF WBC CPT-4: 99910 04/30/2021 UA W/MICR CPT-4: 43749 02/15/2021 URINE CULTURE/ COLONY COUNT CPT-4: 98503 02/02/2021 ROUTINE VENIPUNCTURE CPT-4: 86826 01/25/2021 COMPREHEN METABOLIC PANEL CPT-4: 06877 01/25/2021 COMPLETE CBC W/AUTO DIFF WBC CPT-4: 89129 01/25/2021 URINE CULTURE/ COLONY COUNT CPT-4: 19204 01/25/2021 URINALYSIS NONAUTO W/O SCOPE CPT-4: 51272 01/25/2021 ROUTINE VENIPUNCTURE CPT-4: 63721 07/20/2020 COMPREHEN METABOLIC PANEL CPT-4: 44396 07/20/2020 ASSAY OF FREE THYROXINE CPT-4: 95067 07/20/2020 ASSAY THYROID STIM HORMONE CPT-4: 74582 07/20/2020 COMPLETE CBC W/AUTO DIFF WBC CPT-4: 79195 07/20/2020 RBC SED RATE AUTOMATED CPT-4: 30301 07/20/2020 URINALYSIS NONAUTO W/O SCOPE CPT-4: 92662 04/30/2020 URINE CULTURE/ COLONY COUNT CPT-4: 84914 04/30/2020 ROUTINE VENIPUNCTURE CPT-4: 44583 04/07/2020 COMPLETE CBC W/AUTO DIFF WBC CPT-4: 00206 04/07/2020 VITAMIN B-12 CPT-4: 51069 04/07/2020 ASSAY OF GGT CPT-4: 00081 04/07/2020 ROUTINE VENIPUNCTURE CPT-4: 79020 09/30/2019 ASSAY OF FREE THYROXINE CPT-4: 86674 09/30/2019 ASSAY THYROID STIM HORMONE CPT-4: 90742 09/30/2019 COMPREHEN METABOLIC PANEL CPT-4: 88833 09/30/2019 COMPLETE CBC W/AUTO DIFF WBC CPT-4: 63832 09/30/2019 LIPID PANEL CPT-4: 57847 09/30/2019 Vital Signs Date Vital 05/05/2021 Blood Pressure 1: 118/76 Code: 8480-6 BMI: 13.1 Code: 84907-5 Heart Rate 1: 67 bpm Height: 5'5" Code: 8302-2 Respiratory Rate: 16 bpm Temperatu re: 36.4 (C) / 97.5 (F) Weight: 79 lbs Code: 50007-5 01/25/2021 Blood Pressure 1: 102/68 Code: 8480-6 Heart Rate 1: 76 bpm Respiratory Rate: 20 bpm SpO2: 100% Temperature: 36.9 (C) / 98.5 (F) We ight: 87 lbs Code: 72349-1 12/30/2020 Blood Pressure 1: 134/80 Code: 8480-6 BMI: 14.1 Code: 72231-2 Heart Rate 1: 72 bpm Height: 5'5" Code: 8302-2 Respiratory Rate: 18 bpm SpO2: 97% Temperature: 36.6 (C) / 97.8 (F) Weight: 85 lbs Code: 89426-9 11/10/2020 Blood Pressure 1: 130/74 Code: 8480-6 Heart Rate 1: 56 bpm Respiratory Rate: 20 bpm SpO2: 98% Temperature: 36.3 (C) / 97.4 (F) We ight: 85 lbs Code: 29221-1 07/29/2020 Blood Pressure 1: 121/65 Code: 8480-6 BMI: 14.3 Code: 36669-0 Heart Rate 1: 58 bpm Height: 5'5" Code: 8302-2 Respiratory Rate: 15 bpm SpO2: 98% Temperature: 36.9 (C) / 98.4 (F) Weight: 86 lbs Code: 52016-4 07/20/2020 Blood Pressure 1: 123/69 Code: 8480-6 Heart Rate 1: 68 bpm Respiratory Rate: 15 bpm SpO2: 99% Temperature: 36.6 (C) / 97.8 (F) We ight: 83 lbs Code: 99342-9 04/30/2020 Blood Pressure 1: 128/82 Code: 8480-6 Heart Rate 1: 68 bpm Respiratory Rate: 20 bpm SpO2: 95% Temperature: 36.5 (C) / 97.7 (F) We ight: 91 lbs Code: 62455-3 04/09/2020 Blood Pressure 1: 130/78 Code: 8480-6 Heart Rate 1: 68 bpm Respiratory Rate: 20 bpm SpO2: 99% Temperature: 36.3 (C) / 97.4 (F) We ight: 90 lbs Code: 36931-1 11/22/2019 Temperature: 36.3 (C) / 97.3 (F) 09/10/2019 Blood Pressure 1: 128/72 Code: 8480-6 BMI: 15.6 Code: 33005-6 Heart Rate 1: 68 bpm Height: 5'5" Code: 8302-2 Respiratory Rate: 20 bpm SpO2: 97% Temperature: 36.6 (C) / 97.9 (F) Weight: 94 lbs Code: 60827-7 Functional Status No Functional Status data Reason [...] visit Encounters Encounter Performer Location Codes Date (29303) OFFICE/OUTPATIENT VISIT EST Diagnosis: Mass of right lung[ICD10: R91.8] Diagnosis: Right patella fracture[ICD10: S82.001A] Diagnosis: Abnormal weight loss[ICD10: R63.4] Diagnosis: Coronary artery arteriosclerosis[ICD10: I25.10] Diagnosis: Fatigue[ICD10: R53.83] Robson Maharaj [employer] CPT-4: 54902 05/05/2021 ([id number]) NURSE/OUTPATIENT VISIT EST Diagnosis: Essential (primary) hypertension[ICD10: I10] Diagnosis: Fatigue[ICD10: R53.83] Diagnosis: Blood loss anemia[ICD10: D50.0] Robson PEPPER [employer] [facility] CPT-4: 65437 04/30/2021 ([id number]) NURSE/OUTPATIENT VISIT EST Diagnosis: Urinary tract infection[ICD10: N39.0] Robson PEPPER [employer] [facility] CPT-4: 52539 02/02/2021 ([id number]) OFFICE/OUTPATIENT VISIT EST Diagnosis: Fatigue[ICD10: R53.83] Diagnosis: Blood loss anemia[ICD10: D50.0] Diagnosis: Coronary artery disease[ICD10: I25.10] Diagnosis: Hematuria[ICD10: R31.9] Robson CHANEL [employer] CPT-4: 25422 01/25/2021 ([id number]) OFFICE/OUTPATIENT VISIT EST Diagnosis: GERD (gastroesophageal reflux disease)[ICD10: K21.9] Diagnosis: Duodenal ulcer[ICD10: K26.9] Diagnosis: Coronary artery disease[ICD10: I25.10] Diagnosis: Anxiety[ICD10: F41.9] Diagnosis: Blood loss anemia[ICD10: D50.0] Robson MCCORMICK [facility] CPT-4: 65750 12/30/2020 ([id number]) NURSE/OUTPATIENT VISIT EST Diagnosis: Edema[ICD10: R60.9] Robson MCCORMICK [facility] CPT-4: 45267 12/21/2020 ([id number]) OFFICE/OUTPATIENT VISIT EST Diagnosis: Coronary artery disease[ICD10: I25.10] Diagnosis: Essential (primary) hypertension[ICD10: I10] Diagnosis: Stress reaction[ICD10: F43.0] Diagnosis: Insomnia[ICD10: G47.00] Diagnosis: Pulmonary nodule[ICD10: R91.1] Robson MCCORMICK [facility] CPT-4: 00373 11/10/2020 ([id number]) NO CHARGE Diagnosis: Mass of upper lobe of right lung[ICD10: R91.8] Robson MCCORMICK [facility] CPT-4: 57904 07/29/2020 ([id number]) OFFICE/OUTPATIENT VISIT EST Diagnosis: Fatigue[ICD10: R53.83] Diagnosis: Lymphadenopathy of head and neck[ICD10: R59.1] Diagnosis: Weight loss, non-intentional[ICD10: R63.4] Diagnosis: History of melanoma[ICD10: Z85.820] Diagnosis: Skin lesion[ICD10: L98.9] Sara Mingo ROBSON NUNEZ [facility] CPT-4: 35972 07/20/2020 ([id number]) OFFICE/OUTPATIENT VISIT EST Diagnosis: Urinary tract infection[ICD10: N39.0] Meena [facility] CPT-4: 41522 04/30/2020 ([id number]) OFFICE/OUTPATIENT VISIT EST Diagnosis: Dizziness[ICD10: R42] Diagnosis: Depressed mood with feeling of loneliness[ICD10: F32.9] Diagnosis: Insomnia[ICD10: G47.00] Robsondouglas CHANEL [employer] [facility] CPT-4: 78085 04/09/2020 ([id number]) NURSE/OUTPATIENT VISIT EST Diagnosis: Coronary artery disease[ICD10: I25.10] Diagnosis: Fatigue[ICD10: R53.83] Diagnosis: Essential (primary) hypertension[ICD10: I10] Robson MCCORMICK DO [facility] CPT-4: 66560 04/07/2020 ([id number]) OFFICE/OUTPATIENT VISIT EST Diagnosis: Fatigue[ICD10: R53.83] Meena Li [facility] CPT-4: 25651 11/22/2019 ([id number]) NURSE/OUTPATIENT VISIT EST Diagnosis: Essential (primary) hypertension[ICD10: I10] Diagnosis: Coronary artery disease[ICD10: I25.10] Diagnosis: Encounter for general adult medical examination with abnormal findings[ICD10: Z00.01] Robson Anny [facility] [employer] [facility] CPT-4: 54207 09/30/2019 ([id number]) OFFICE/OUTPATIENT VISIT NEW Diagnosis: Essential (primary) hypertension[ICD10: I10] Diagnosis: Coronary artery disease[ICD10: I25.10] Diagnosis: Aortic valve stenosis with insufficiency[ICD10: I35.2] Robson MCCORMICK [employer] [facility] CPT-4: 73751 09/10/2019 Plan of Care Planned Activity Notes [...] Plan: 04/30/2021 Appointment[facility] [phone] [id number] [facility] 04/30/2021 Appointment: Robson Mccormick WPtel: [address] [place] [address] US scheduled by VC CANCELED 03/10/2021 Appointment: Robson Mccormick WPtel: [address] [place], [place] [phone] US patient unable to leave urine CANCELED Appointment: Robson Mccormick WPtel: [phone] [place], [place] [phone] US CANCELED 02/02/2021 Appointment: Robson Mccormick WPtel: [address] [place] [address] US UA 02/02/2021 Care Plan: UA W/MICR ADD ON ORDER LOINC : 64862-3 Pending 01/26/2021 Visit Diagnosis Plan: Hematuria Discussion: Culture ur ine ICD-9 : 599.70 ICD-10 : R31.9 01/25/2021 Visit Diagnosis Plan: Blood loss anemia Discussion: Ch real CBC now ICD-9 : 280.0 ICD-10 : D50.0 01/25/2021 Appointment: Robson Mccormick WPtel: [address] [place], [place] [id number] 01/25/2021 Appointment: Sara Aguila WPtel: [address] [place], [place] [phone] US CANCELED 01/01/2021 Visit Diagnosis Plan: Anxiety [...] Visit Diagnosis Plan: [facility]ER[facility] ([facility] Discussion: Stable on pantoprazole ICD-9 : 530.81 ICD-10 : K21.9 12/30/2020 Appointment: Robson Mccormick WPtel: [address] [place], [place] [phone] US FOLLOW UP 12/30/2020 Appointment: Robson Mccormick WPtel: [address] [place], [place] [phone] NURSE SERVICES 12/21/2020 Visit Diagnosis Plan: Insomnia [...] : F43.0 11/10/2020 Appointment: Robson Mccormick WPtel: [address] [place], [place] [phone] US FOLLOW UP 11/10/2020 Patient Education: trazodone- [employer] C[employer]on [id number] [email or web address] Completed 11/10/2020 Visit Diagnosis Plan: Mass of upper lobe of right lung Discussion: CT scan of lung results discussed with patient and told this looks like cancer Agrees to see pulmonology to see if will be amenable to bronchoscopy to get cells/washings ICD-9 : 786.6 ICD-10 : R91.8 07/29/2020 Appointment: Robson Mccormick WPtel: [id number] US WORK IN 07/29/2020 Care Plan: Referral Order SNOMED-CT : [id number] [phone] Pending 07/29/2020 Care Plan: CT SFT TSUE NCK W/O & W/DYE L OINC : 11025-4 Pending 07/21/2020 Visit Diagnosis Plan: Fatigue Discussion: [...] 07/20/2020 Appointment: Sara Aguila WPtel: [phone] [facility] 07/20/2020 [...] ICD-10 : N39.0 04/30/2020 Appointment: Meena Li [address] [place], [place] [id number] ACUTE ILLNESS 04/30/2020 Appointment: Meena Li [address] [place], [place] [phone] 04/21/2020 1020---patient needed [...] : F32.9 04/09/2020 Appointment: Robson Mccormick WPtel: [address] [place], [place] [phone] US FOLLOW UP 04/09/2020 Care Plan: [place] : [id number] Pending 04/09/2020 Appointment: Robson Mccormick WPtel: [address] [place] [address] [place] LAB 04/07/2020 Visit Diagnosis Plan: Fatigue Discussion: no other sym ptoms other than fatigue for 4 weeks so will update labs. order sent to [facility] [place] blood work and ua with c&s. instructed to call office with new or worsening symptoms. ICD-9 : 780.79 ICD-10 : R53.83 11/22/2019 Appointment: Meena Li [address] [place] [address] TELEMEDICINE 11/22/2019 Appointment: Robson Mccormick WPtel: [address] [place], [place] [phone] US LAB 09/30/2019 Visit Diagnosis Plan: Coronary [...] : I10 09/10/2019 Appointment: Robson Mccormick WPtel: [facility] [place], [place] [id number] [place] NEW PATIENT 09/10/2019 Patient Education: carvedilol- [employer] Coupon [id number] [email or web address] Completed 09/10/2019 Appointment: Robson Mccormick WPtel: [address] [place], [place] [phone] [place] RESCHEDULED 08/20/2019 Appointment: Robson Mccormick WPtel: [address] [place], [place] [phone] [place] CANCELED 07/22/2019 Referral: Vikram Maguire WPtel: [address] [facility] [address] [id number] [place] Referral Appointment Requested Instructions No Instructions Medical Equipment No Medical Equipment data Health Concerns Section Health Concerns data not found Goals Section Goals data not found Interventions Section Interventions data not found Health Status Evaluations/Outcomes Section Health Status Evaluations/Outcomes data not found Advance Directives No Advance Directive data
--- OUTSIDE RECORDS SUMMARY | 2021-05-18 09:18 | XMS REPORT | CCD ---
Author Author Erica Mccormick D.O. Organization [facility]ON [facility] DO [facility] Address [address] [place] [address] Phone Care Team Providers Care Telephonic Case Manager Name Role Phone PP Unavailable CCM Unavailable Summary Purpose Interface Exchange Insurance Providers Payer name Policy type / Coverage type Covered green party ID Effective Begin Date Effective End Date WPS MEDICARE PART B [place] Medicare Part B [id number] Unknown Unknown [employer]UE [employer] [place] MEDIC[place] SU[place] Medicare Part B X [id number] Unknown Unknown Family History Family History data not found Social History Social History Element Codes Description Effective Dates Marital status Unknown 09/10/2019 Number of children Unknown 1 09/10/2019 Employment Unknown Retired 09/10/[address]: 0961665 Former smoker quit 201109/10/[address]: 158170 Currently drinks alcohol 09/09 Frequency of drinks SNOMED CT: 465733034 1-4 drinks per week Allergies, Adverse Reactions, [...] Fill Instructions tramadol 50 mg tablet RxNorm: 026922 1 Tablet(s) Oral t wo times a day as needed for pain 03/15/2021 No Stop Date Active ferrous sulfate 325 mg (65 mg iron) tablet RxNorm: 394269 Take 1 Tablet(s) Oral QD 01/28/2021 05/04/2021 Inactive pantoprazole 20 mg tablet,delayed release RxNorm: 814879 1 Tablet(s) Oral two times a day 12/22/2020 03/21/2021 Inactive pantoprazole 20 mg tablet,delayed release RxNorm: 177112 1 Tablet(s) Oral two times a day 12/22/2020 12/22/2020 Inactive paroxetine 20 mg tablet RxNorm: 2122137 1 Tablet(s) Oral QD 021 05/04/2021 Inactive paroxetine 20 mg tablet RxNorm: 3489911 1 Tablet(s) Oral QD 021 12/15/2020 Inactive paroxetine 20 mg tablet RxNorm: 4894746 1 Tablet(s) Oral QD 021 12/15/2020 Inactive MagOx 400 mg (241.3 mg magnesium) tablet RxNorm: 136088 Take 1 Tablet(s) Oral every night at bedtime with melatonin 11/23/2020 01/24/2021 Inactive melatonin 3 mg tablet RxNorm: 947206 Take 1-2 Tablet(s) Oral every night at bedtime 11/18/2020 No Stop Date Active Plavix 75 mg tablet RxNorm: 131697 Take 1 Tablet(s) Oral QD No Stop Date Active trazodone 50 mg tablet RxNorm: 512901 Take 1-2 Tablet(s ) Oral QPM as needed for sleep 11/10/2020 11/22/2020 Inactive atorvastatin 40 mg tablet RxNorm: 101347 Take 1 Tablet( s) Oral every night at bedtime 11/10/2020 05/04/2021 Inactive alprazolam 0.25 mg tablet RxNorm: 511729 1/2-1 Tablet(s ) Oral QPM as needed for sleep 08/03/2020 09/01/2020 Inactive alprazolam 0.25 mg tablet RxNorm: 859349 2-1 Tablet(s ) Oral QPM as needed for sleep 08/03/2020 08/02/2020 Inactive Aspirin Low Dose 81 mg tablet,delayed release RxNorm: 661205 1 Tablet(s) Oral QD 09/10/2019 No Stop Date Active carvedilol 6.25 mg tablet RxNorm: 537424 1 Tablet(s) Oral two t imes a day 09/10/2019 11/09/2020 Inactive Fish Oil 1,000 mg (120 mg-180 mg) capsule RxNorm: 1 Caps ule(s) Oral QD 09/10/2019 11/25/2019 Inactive losartan 25 mg tablet RxNorm: 990313 1 Tablet(s) Oral QD 09/10/2019 0 05/04/2021 Inactive Medication Administered No Medication Administered data Immunizations No Immunization data Results Observation Observation Code Item Item Code Result Date S ervice Location GFR CALC 1791283 GFR Non Afr Amr >60 mL/min 04/30/2021 Un known GFR CALC 2091002 GFR Afr Amr >60 mL/min 04/30/2021 Unknow n COMPREHENSIVE METABOLIC 20703 AST 13 U/L 2021 Unknown COMPREHENSIVE METABOLIC 05129 ALT 12 U/L 2021 Unknown COMPREHENSIVE METABOLIC 71997 BUN 15 mg/dL 2021 Unknown COMPREHENSIVE METABOLIC 65582 ALBUMIN 4.0 g/dL 2021 Unknown COMPREHENSIVE METABOLIC 79520 CHLORIDE 103 mmol/L 04/30 Unknown COMPREHENSIVE METABOLIC 55596 Bili Total 0.4 mg/dL 04/30 Unknown COMPREHENSIVE METABOLIC 68521 ALK PHOS 75 U/L 2021 Unknown COMPREHENSIVE METABOLIC 95649 SODIUM 136 mmol/L 04/30 Unknown COMPREHENSIVE METABOLIC 05303 CREATININE 0.69 mg/dL 10/2021 Unknown COMPREHENSIVE METABOLIC 56588 CALCIUM 8.9 mg/dL 2021 Unknown COMPREHENSIVE METABOLIC 65346 POTASSIUM 4.3 mmol/L 04/30 Unknown COMPREHENSIVE METABOLIC 45047 Total Protein 6.7 g/dL Unknown COMPREHENSIVE METABOLIC 60306 Glucose 94 mg/dL 2021 Unknown COMPREHENSIVE METABOLIC 35597 Bicarbonate 25 mmol/L 10/2021 Unknown COMPREHENSIVE METABOLIC 63590 AGAP 8 mmol/L 2021 Unknown COMPLETE BLOOD COUNT [id number] WBC 4.6 10e9/L 04/30/19 22 Unknown COMPLETE BLOOD COUNT [id number] RBC 3.76 10e12/L 2021 Unknown COMPLETE BLOOD COUNT [id number] HEMOGLOBIN 10.9 g/dL 04/30/19 22 Unknown COMPLETE BLOOD COUNT [id number] HEMATOCRIT 35.3 % 04/30/19 22 Unknown COMPLETE BLOOD COUNT [id number] MCV 93.9 fL 2 Unknown COMPLETE BLOOD COUNT [id number] MCH 29.0 pg 2 Unknown COMPLETE BLOOD COUNT [id number] MCHC 30.9 g/dL 2 Unknown COMPLETE BLOOD COUNT [id number] PLATELET COUNT 254 10e9/L 10/2021 Unknown COMPLETE BLOOD COUNT [id number] Mean Plt Volume 9.0 fL 10/2021 Unknown COMPLETE BLOOD COUNT [id number] Neut Auto 73.2 % 2 Unknown COMPLETE BLOOD COUNT [id number] Lymph Auto 14.3 % 04/30/19 22 Unknown COMPLETE BLOOD COUNT [id number] [place] Auto 8.1 % 2 Unknown COMPLETE BLOOD COUNT [id number] RDW 17.8 % 2 Unknown COMPLETE BLOOD COUNT [id number] Eos Auto 3.7 % 2 Unknown COMPLETE BLOOD COUNT [id number] Baso Auto 0.7 % 2 Unknown COMPLETE BLOOD COUNT [id number] Neutrophil Abs 3.37 10e9/L Unknown COMPLETE BLOOD COUNT [id number] Lymphocyte Abs 0.66 10e9/L Unknown COMPLETE BLOOD COUNT [id number] Monocyte Abs 0.37 10e9/L 10/2021 Unknown COMPLETE BLOOD COUNT [id number] Eosinophil Abs 0.17 10e9/L Unknown COMPLETE BLOOD COUNT [id number] RDW-SD 59.5 fL 2 Unknown COMPLETE BLOOD COUNT [id number] Basophil Abs 0.03 10e9/L 10/2021 Unknown UA W/MICR 86111 UA Protein TNP:Specimen Not Received Unknown UA W/MICR 15425 UA Hemoglobin TNP:Specimen Not Received 02/17/2021 Unknown UA W/MICR 35184 UA Glucose TNP:Specimen Not Received Unknown UA W/MICR 86107 UA Ketones TNP:Specimen Not Received Unknown UA W/MICR 27910 UA pH TNP:Specimen Not Received Unknown UA W/MICR 77967 U Spec [place] TNP:Specimen Not Received 02/17/2021 Unknown UA W/MICR 30005 UA Bilirubin TNP:Specimen Not Received 02/17/2021 Unknown UA W/MICR 83493 UA Leuk [place] TNP:Specimen Not Receive d 02/17/2021 Unknown UA W/MICR 93297 UA Nitrite TNP:Specimen Not Received Unknown UA W/MICR 61805 UA WBC/hpf TNP:Specimen Not Received Unknown UA W/MICR 05852 UA RBC hpf TNP:Specimen Not Received Unknown UA W/MICR 90259 UA Protein TNP:Specimen Integrity 01/27 Unknown UA W/MICR 91386 UA Hemoglobin TNP:Specimen Integrity Unknown UA W/MICR 87921 UA Glucose TNP:Specimen Integrity 01/27 Unknown UA W/MICR 71468 UA Ketones TNP:Specimen Integrity 01/27 Unknown UA W/MICR 85452 UA pH TNP:Specimen Integrity 2020 Unknown UA W/MICR 87030 U Spec [place] TNP:Specimen Integrity 1 Unknown UA W/MICR 63798 UA Bilirubin TNP:Specimen Integrity 09/2020 Unknown UA W/MICR 16665 UA Leuk [place] TNP:Specimen Integrity 01/27/2021 Unknown UA W/MICR 35506 UA Nitrite TNP:Specimen Integrity 01/27 Unknown UA W/MICR 51059 UA WBC/hpf TNP:Specimen Integrity 01/27 Unknown UA W/MICR 97030 UA RBC hpf TNP:Specimen Integrity 01/27 Unknown COMPLETE BLOOD COUNT [id number] WBC 6.1 10e9/L 01/26/20 21 Unknown COMPLETE BLOOD COUNT [id number] RBC 3.34 10e12/L 2020 Unknown COMPLETE BLOOD COUNT [id number] HEMOGLOBIN 8.8 g/dL 01/26/20 21 Unknown COMPLETE BLOOD COUNT [id number] HEMATOCRIT 28.5 % 01/26/20 21 Unknown COMPLETE BLOOD COUNT [id number] MCV 85.3 fL 1 Unknown COMPLETE BLOOD COUNT [id number] MCH 26.3 pg 1 Unknown COMPLETE BLOOD COUNT 7245534 MCHC 30.9 g/dL 1 Unknown COMPLETE BLOOD COUNT [id number] PLATELET COUNT 268 10e9/L 07/2020 Unknown COMPLETE BLOOD COUNT [id number] Mean Plt Volume 8.7 fL 07/2020 Unknown COMPLETE BLOOD COUNT 8682545 Neut Auto 67.7 % 1 Unknown COMPLETE BLOOD COUNT [id number] Lymph Auto 19.4 % 01/26/20 21 Unknown COMPLETE BLOOD COUNT [id number] [place] Auto 8.4 % 1 Unknown COMPLETE BLOOD COUNT [id number] RDW 16.7 % 1 Unknown COMPLETE BLOOD COUNT [id number] Eos Auto 3.8 % 1 Unknown COMPLETE BLOOD COUNT 1519904 Baso Auto 0.7 % 1 Unknown COMPLETE BLOOD COUNT [id number] Neutrophil Abs 4.13 10e9/L Unknown COMPLETE BLOOD COUNT [id number] Lymphocyte Abs 1.18 10e9/L Unknown COMPLETE BLOOD COUNT [id number] Monocyte Abs 0.51 10e9/L 07/2020 Unknown COMPLETE BLOOD COUNT [id number] Eosinophil Abs 0.23 10e9/L Unknown COMPLETE BLOOD COUNT [id number] RDW-SD 50.9 fL 1 Unknown COMPLETE BLOOD COUNT [id number] Basophil Abs 0.04 10e9/L 07/2020 Unknown GFR CALC 1924745 GFR Non Afr Amr >60 mL/min 01/25/2021 Un known GFR CALC 9447396 GFR Afr Amr >60 mL/min 01/25/2021 Unknow n COMPREHENSIVE METABOLIC 44178 AST 17 U/L 2020 Unknown COMPREHENSIVE METABOLIC 39577 ALT 13 U/L 2020 Unknown COMPREHENSIVE METABOLIC 22214 BUN 14 mg/dL 2020 Unknown COMPREHENSIVE METABOLIC 76500 ALBUMIN 4.1 g/dL 2020 Unknown COMPREHENSIVE METABOLIC 99500 CHLORIDE 102 mmol/L 01/25 Unknown COMPREHENSIVE METABOLIC 18191 Bili Total 0.4 mg/dL 01/25 Unknown COMPREHENSIVE METABOLIC 50909 ALK PHOS 85 U/L 2020 Unknown COMPREHENSIVE METABOLIC 83649 SODIUM 134 mmol/L 01/25 Unknown COMPREHENSIVE METABOLIC 16271 CREATININE 0.71 mg/dL 07/2020 Unknown COMPREHENSIVE METABOLIC 99579 CALCIUM 9.3 mg/dL 2020 Unknown COMPREHENSIVE METABOLIC 30095 POTASSIUM 4.3 mmol/L 01/25 Unknown COMPREHENSIVE METABOLIC 92073 Total Protein 7.0 g/dL Unknown COMPREHENSIVE METABOLIC 15272 Glucose 111 mg/dL 2020 Unknown COMPREHENSIVE METABOLIC 81470 Bicarbonate 24 mmol/L 07/2020 Unknown COMPREHENSIVE METABOLIC 25367 AGAP 8 mmol/L 2020 Unknown COMPREHENSIVE METABOLIC 21876 AST 16 U/L 2019 Unknown COMPREHENSIVE METABOLIC 87239 ALT 12 U/L 2019 Unknown COMPREHENSIVE METABOLIC 96864 BUN 13 mg/dL 2019 Unknown COMPREHENSIVE METABOLIC 97607 ALBUMIN 4.1 g/dL 2019 Unknown COMPREHENSIVE METABOLIC 79419 CHLORIDE 96 mmol/L 2019 Unknown COMPREHENSIVE METABOLIC 28199 Bili Total 1.1 mg/dL 04/09 Unknown COMPREHENSIVE METABOLIC 00887 ALK PHOS 80 U/L 2019 Unknown COMPREHENSIVE METABOLIC 67520 SODIUM 131 mmol/L 04/09 Unknown COMPREHENSIVE METABOLIC 32337 CREATININE 0.76 mg/dL 03/24 Unknown COMPREHENSIVE METABOLIC 69232 CALCIUM 9.0 mg/dL 2019 Unknown COMPREHENSIVE METABOLIC 28632 POTASSIUM 4.2 mmol/L 04/09 Unknown COMPREHENSIVE METABOLIC 37481 Total Protein 6.8 g/dL Unknown COMPREHENSIVE METABOLIC 22962 Glucose 101 mg/dL 2019 Unknown COMPREHENSIVE METABOLIC 65112 Bicarbonate 25 mmol/L 03/24 Unknown COMPREHENSIVE METABOLIC 71817 AGAP 10 mmol/L 2019 Unknown GFR CALC 5395849 GFR Non Afr Amr >60 mL/min 04/09/2020 Un known GFR CALC 5134599 GFR Afr Amr >60 mL/min 04/09/2020 Unknow n GAMMA GLUTAMYL TRANSFERASE 21724 GGT 19 U/L Unknown COMPLETE BLOOD COUNT [id number] WBC 6.3 10e9/L 04/07/20 20 Unknown COMPLETE BLOOD COUNT [id number] RBC 4.36 10e12/L 2019 Unknown COMPLETE BLOOD COUNT 8055684 HEMOGLOBIN 15.2 g/dL 04/07/20 20 Unknown COMPLETE BLOOD COUNT [id number] HEMATOCRIT 43.8 % 04/07/20 20 Unknown COMPLETE BLOOD COUNT [id number] MCV 100.5 fL 0 Unknown COMPLETE BLOOD COUNT [id number] MCH 34.9 pg 0 Unknown COMPLETE BLOOD COUNT 5410930 MCHC 34.7 g/dL 0 Unknown COMPLETE BLOOD COUNT [id number] PLATELET COUNT 254 10e9/L Unknown COMPLETE BLOOD COUNT 9836782 Mean Plt Volume 9.9 fL Unknown COMPLETE BLOOD COUNT 5527424 Neut Auto 63.3 % 0 Unknown COMPLETE BLOOD COUNT 1762224 Lymph Auto 24.5 % 04/07/20 Unknown COMPLETE BLOOD COUNT [id number] [place] Auto 8.4 % 0 Unknown COMPLETE BLOOD COUNT 9063714 RDW 12.8 % 0 Unknown COMPLETE BLOOD COUNT [id number] Eos Auto 3.2 % 0 Unknown COMPLETE BLOOD COUNT 5483427 Baso Auto 0.6 % 0 Unknown COMPLETE BLOOD COUNT [id number] Neutrophil Abs 3.99 10e9/L Unknown COMPLETE BLOOD COUNT 1354471 Lymphocyte Abs 1.54 10e9/L Unknown COMPLETE BLOOD COUNT [id number] Monocyte Abs 0.53 10e9/L 03/24 Unknown COMPLETE BLOOD COUNT [id number] Eosinophil Abs 0.20 10e9/L Unknown COMPLETE BLOOD COUNT [id number] RDW-SD 47.6 fL 0 Unknown COMPLETE BLOOD COUNT [id number] Basophil Abs 0.04 10e9/L 03/24 Unknown VITAMIN B 12 33042 VITAMIN B12 661 pg/mL 04/07/2020 Unkn own LIPID GROUP 93401 Cholesterol 168 mg/dL 09/30/2019 Unkno wn LIPID GROUP 09196 Triglyceride 141 mg/dL 09/30/2019 Unkn own LIPID GROUP 65657 HDL CHOLESTEROL 66 mg/dL 09/30/2019 U nknown LIPID GROUP 75886 Chol/HDL Ratio 2.55 ratio 09/30/2019 U nknown LIPID GROUP 85447 NON-HDL Chol 102 mg/dL 09/30/2019 Unkn own LIPID GROUP 91038 LDL Cholesterol 74 mg/dL 09/30/2019 U nknown FREE T4 41237 T4 Free 0.76 ng/dL 09/30/2019 Unknown THYROID STIMULATING HORMONE 53297 TSH 2.186 uIU/mL 09/30/2019 Unknown GFR CALC 6412261 GFR Non Afr Amr >60 mL/min 09/30/2019 Un known GFR CALC 0055456 GFR Afr Amr >60 mL/min 09/30/2019 Unknow n COMPREHENSIVE METABOLIC 08400 AST 14 U/L 2019 Unknown COMPREHENSIVE METABOLIC 08890 ALT 11 U/L 2019 Unknown COMPREHENSIVE METABOLIC 14736 BUN 15 mg/dL 2019 Unknown COMPREHENSIVE METABOLIC 94260 ALBUMIN 4.0 g/dL 2019 Unknown COMPREHENSIVE METABOLIC 53572 CHLORIDE 96 mmol/L 2019 Unknown COMPREHENSIVE METABOLIC 65865 Bili Total 0.9 mg/dL 09/29 Unknown COMPREHENSIVE METABOLIC 98020 ALK PHOS 72 U/L 2019 Unknown COMPREHENSIVE METABOLIC 74615 SODIUM 132 mmol/L 09/29 Unknown COMPREHENSIVE METABOLIC 71813 CREATININE 0.73 mg/dL 11/2019 Unknown COMPREHENSIVE METABOLIC 88825 CALCIUM 9.1 mg/dL 2019 Unknown COMPREHENSIVE METABOLIC 18073 POTASSIUM 4.6 mmol/L 09/29 Unknown COMPREHENSIVE METABOLIC 77494 Total Protein 6.4 g/dL Unknown COMPREHENSIVE METABOLIC 00558 Glucose 97 mg/dL 2019 Unknown COMPREHENSIVE METABOLIC 96936 Bicarbonate 25 mmol/L 11/2019 Unknown COMPREHENSIVE METABOLIC 06765 AGAP 11 mmol/L 2019 Unknown COMPLETE BLOOD COUNT [id number] WBC 5.3 10e9/L 09/30/19 20 Unknown COMPLETE BLOOD COUNT [id number] RBC 4.16 10e12/L 2019 Unknown COMPLETE BLOOD COUNT [id number] HEMOGLOBIN 14.1 g/dL 09/30/19 20 Unknown COMPLETE BLOOD COUNT 1437690 HEMATOCRIT 42.6 % 09/30/19 20 Unknown COMPLETE BLOOD COUNT 9817101 MCV 102.4 fL 0 Unknown COMPLETE BLOOD COUNT 5359145 MCH 33.9 pg 0 Unknown COMPLETE BLOOD COUNT 8190120 MCHC 33.1 g/dL 0 Unknown COMPLETE BLOOD COUNT 3365933 PLATELET COUNT 273 10e9/L 11/2019 Unknown COMPLETE BLOOD COUNT 7226323 Mean Plt Volume 9.4 fL 11/2019 Unknown COMPLETE BLOOD COUNT 9989139 Neut Auto 57.3 % 0 Unknown COMPLETE BLOOD COUNT 6990750 Lymph Auto 29.3 % 09/30/19 20 Unknown COMPLETE BLOOD COUNT [id number] [place] Auto 7.6 % 0 Unknown COMPLETE BLOOD COUNT 8101316 RDW 13.8 % 0 Unknown COMPLETE BLOOD COUNT 4831082 Eos Auto 4.5 % 0 Unknown COMPLETE BLOOD COUNT 8487119 Baso Auto 1.3 % 0 Unknown COMPLETE BLOOD COUNT [id number] Neutrophil Abs 3.04 10e9/L Unknown COMPLETE BLOOD COUNT [id number] Lymphocyte Abs 1.55 10e9/L Unknown COMPLETE BLOOD COUNT [id number] Monocyte Abs 0.40 10e9/L 11/2019 Unknown COMPLETE BLOOD COUNT [id number] Eosinophil Abs 0.24 10e9/L Unknown COMPLETE BLOOD COUNT [id number] RDW-SD 50.7 fL 0 Unknown COMPLETE BLOOD COUNT [id number] Basophil Abs 0.07 10e9/L 11/2019 Unknown Procedures Procedure Codes Date ROUTINE VENIPUNCTURE CPT-4: 21835 04/30/2021 COMPREHEN METABOLIC PANEL CPT-4: 66868 04/30/2021 COMPLETE CBC W/AUTO DIFF WBC CPT-4: 13525 04/30/2021 UA W/MICR CPT-4: 31890 02/15/2021 URINE CULTURE/ COLONY COUNT CPT-4: 31676 02/02/2021 ROUTINE VENIPUNCTURE CPT-4: 46125 01/25/2021 COMPREHEN METABOLIC PANEL CPT-4: 96084 01/25/2021 COMPLETE CBC W/AUTO DIFF WBC CPT-4: 56240 01/25/2021 URINE CULTURE/ COLONY COUNT CPT-4: 50233 01/25/2021 URINALYSIS NONAUTO W/O SCOPE CPT-4: 78839 01/25/2021 ROUTINE VENIPUNCTURE CPT-4: 10008 07/20/2020 COMPREHEN METABOLIC PANEL CPT-4: 10964 07/20/2020 ASSAY OF FREE THYROXINE CPT-4: 09406 07/20/2020 ASSAY THYROID STIM HORMONE CPT-4: 50392 07/20/2020 COMPLETE CBC W/AUTO DIFF WBC CPT-4: 87517 07/20/2020 RBC SED RATE AUTOMATED CPT-4: 91311 07/20/2020 URINALYSIS NONAUTO W/O SCOPE CPT-4: 72388 04/30/2020 URINE CULTURE/ COLONY COUNT CPT-4: 02657 04/30/2020 ROUTINE VENIPUNCTURE CPT-4: 21118 04/07/2020 COMPLETE CBC W/AUTO DIFF WBC CPT-4: 56094 04/07/2020 VITAMIN B-12 CPT-4: 76735 04/07/2020 ASSAY OF GGT CPT-4: 68054 04/07/2020 ROUTINE VENIPUNCTURE CPT-4: 45799 09/30/2019 ASSAY OF FREE THYROXINE CPT-4: 45327 09/30/2019 ASSAY THYROID STIM HORMONE CPT-4: 99373 09/30/2019 COMPREHEN METABOLIC PANEL CPT-4: 32282 09/30/2019 COMPLETE CBC W/AUTO DIFF WBC CPT-4: 74246 09/30/2019 LIPID PANEL CPT-4: 36478 09/30/2019 Vital Signs Date Vital 05/05/2021 Blood Pressure 1: 118/76 Code: 8480-6 BMI: 13.1 Code: 38599-0 Heart Rate 1: 67 bpm Height: 5'5" Code: 8302-2 Respiratory Rate: 16 bpm Temperatu re: 36.4 (C) / 97.5 (F) Weight: 79 lbs Code: 11883-8 01/25/2021 Blood Pressure 1: 102/68 Code: 8480-6 Heart Rate 1: 76 bpm Respiratory Rate: 20 bpm SpO2: 100% Temperature: 36.9 (C) / 98.5 (F) We ight: 87 lbs Code: 42845-7 12/30/2020 Blood Pressure 1: 134/80 Code: 8480-6 BMI: 14.1 Code: 53156-0 Heart Rate 1: 72 bpm Height: 5'5" Code: 8302-2 Respiratory Rate: 18 bpm SpO2: 97% Temperature: 36.6 (C) / 97.8 (F) Weight: 85 lbs Code: 48197-4 11/10/2020 Blood Pressure 1: 130/74 Code: 8480-6 Heart Rate 1: 56 bpm Respiratory Rate: 20 bpm SpO2: 98% Temperature: 36.3 (C) / 97.4 (F) We ight: 85 lbs Code: 80722-0 07/29/2020 Blood Pressure 1: 121/65 Code: 8480-6 BMI: 14.3 Code: 19842-4 Heart Rate 1: 58 bpm Height: 5'5" Code: 8302-2 Respiratory Rate: 15 bpm SpO2: 98% Temperature: 36.9 (C) / 98.4 (F) Weight: 86 lbs Code: 38334-1 07/20/2020 Blood Pressure 1: 123/69 Code: 8480-6 Heart Rate 1: 68 bpm Respiratory Rate: 15 bpm SpO2: 99% Temperature: 36.6 (C) / 97.8 (F) We ight: 83 lbs Code: 66361-0 04/30/2020 Blood Pressure 1: 128/82 Code: 8480-6 Heart Rate 1: 68 bpm Respiratory Rate: 20 bpm SpO2: 95% Temperature: 36.5 (C) / 97.7 (F) We ight: 91 lbs Code: 15852-9 04/09/2020 Blood Pressure 1: 130/78 Code: 8480-6 Heart Rate 1: 68 bpm Respiratory Rate: 20 bpm SpO2: 99% Temperature: 36.3 (C) / 97.4 (F) We ight: 90 lbs Code: 11334-2 11/22/2019 Temperature: 36.3 (C) / 97.3 (F) 09/10/2019 Blood Pressure 1: 128/72 Code: 8480-6 BMI: 15.6 Code: 89707-6 Heart Rate 1: 68 bpm Height: 5'5" Code: 8302-2 Respiratory Rate: 20 bpm SpO2: 97% Temperature: 36.6 (C) / 97.9 (F) Weight: 94 lbs Code: 87063-6 Functional Status No Functional Status data Reason [...] visit Encounters Encounter Performer Location Codes Date ([id number]) OFFICE/OUTPATIENT VISIT EST Diagnosis: Mass of right lung[ICD10: R91.8] Diagnosis: Right patella fracture[ICD10: S82.001A] Diagnosis: Abnormal weight loss[ICD10: R63.4] Diagnosis: Coronary artery arteriosclerosis[ICD10: I25.10] Diagnosis: Fatigue[ICD10: R53.83] Robson Maharaj [employer] CPT-4: 51113 05/05/2021 ([id number]) NURSE/OUTPATIENT VISIT EST Diagnosis: Essential (primary) hypertension[ICD10: I10] Diagnosis: Fatigue[ICD10: R53.83] Diagnosis: Blood loss anemia[ICD10: D50.0] Robson PEPPER [employer] [facility] CPT-4: 20676 04/30/2021 ([id number]) NURSE/OUTPATIENT VISIT EST Diagnosis: Urinary tract infection[ICD10: N39.0] Robson PEPPER [employer] [facility] CPT-4: 41432 02/02/2021 ([id number]) OFFICE/OUTPATIENT VISIT EST Diagnosis: Fatigue[ICD10: R53.83] Diagnosis: Blood loss anemia[ICD10: D50.0] Diagnosis: Coronary artery disease[ICD10: I25.10] Diagnosis: Hematuria[ICD10: R31.9] Robson CHANEL [employer] CPT-4: 52661 01/25/2021 ([id number]) OFFICE/OUTPATIENT VISIT EST Diagnosis: GERD (gastroesophageal reflux disease)[ICD10: K21.9] Diagnosis: Duodenal ulcer[ICD10: K26.9] Diagnosis: Coronary artery disease[ICD10: I25.10] Diagnosis: Anxiety[ICD10: F41.9] Diagnosis: Blood loss anemia[ICD10: D50.0] Robson MCCORMICK [facility] CPT-4: 03137 12/30/2020 ([id number]) NURSE/OUTPATIENT VISIT EST Diagnosis: Edema[ICD10: R60.9] Robson MCCORMICK [facility] CPT-4: 33753 12/21/2020 ([id number]) OFFICE/OUTPATIENT VISIT EST Diagnosis: Coronary artery disease[ICD10: I25.10] Diagnosis: Essential (primary) hypertension[ICD10: I10] Diagnosis: Stress reaction[ICD10: F43.0] Diagnosis: Insomnia[ICD10: G47.00] Diagnosis: Pulmonary nodule[ICD10: R91.1] Robson MCCORMICK [facility] CPT-4: 95555 11/10/2020 ([id number]) NO CHARGE Diagnosis: Mass of upper lobe of right lung[ICD10: R91.8] Robson MCCORMICK [facility] CPT-4: 66686 07/29/2020 ([id number]) OFFICE/OUTPATIENT VISIT EST Diagnosis: Fatigue[ICD10: R53.83] Diagnosis: Lymphadenopathy of head and neck[ICD10: R59.1] Diagnosis: Weight loss, non-intentional[ICD10: R63.4] Diagnosis: History of melanoma[ICD10: Z85.820] Diagnosis: Skin lesion[ICD10: L98.9] Sara Mingo ROBSON NUNEZ [facility] CPT-4: 07970 07/20/2020 ([id number]) OFFICE/OUTPATIENT VISIT EST Diagnosis: Urinary tract infection[ICD10: N39.0] [facility] 80975 04/30/2020 ([id number]) OFFICE/OUTPATIENT VISIT EST Diagnosis: Dizziness[ICD10: R42] Diagnosis: Depressed mood with feeling of loneliness[ICD10: F32.9] Diagnosis: Insomnia[ICD10: G47.00] Robsondouglas CHANEL [employer] [facility] CPT-4: 93470 04/09/2020 ([id number]) NURSE/OUTPATIENT VISIT EST Diagnosis: Coronary artery disease[ICD10: I25.10] Diagnosis: Fatigue[ICD10: R53.83] Diagnosis: Essential (primary) hypertension[ICD10: I10] Robson MCCORMICK DO [facility] CPT-4: 99409 04/07/2020 ([id number]) OFFICE/OUTPATIENT VISIT EST Diagnosis: Fatigue[ICD10: R53.83] Meena Li [facility] CPT-4: 33053 11/22/2019 ([id number]) NURSE/OUTPATIENT VISIT EST Diagnosis: Essential (primary) hypertension[ICD10: I10] Diagnosis: Coronary artery disease[ICD10: I25.10] Diagnosis: Encounter for general adult medical examination with abnormal findings[ICD10: Z00.01] Robson Anny MCCORMICK [employer] [facility] CPT-4: 12198 09/30/2019 ([id number]) OFFICE/OUTPATIENT VISIT NEW Diagnosis: Essential (primary) hypertension[ICD10: I10] Diagnosis: Coronary artery disease[ICD10: I25.10] Diagnosis: Aortic valve stenosis with insufficiency[ICD10: I35.2] Robson MCCORMICK [employer] [facility] CPT-4: 91262 09/10/2019 Plan of Care Planned Activity Notes [...] Plan: 04/30/2021 Appointment[facility] [phone] [id number] [facility] 04/30/2021 Appointment: Robson Mccormick WPtel: [address] [place] [address] US scheduled by VC CANCELED 03/10/2021 Appointment: Robson Mccormick WPtel: [address] [place], [place] [phone] [place] patient unable to leave urine CANCELED Appointment: Robson Mccormick WPtel: [address] [place], [place] [phone] US CANCELED 02/02/2021 Appointment: Robson Mccormick WPtel: [address] [place] [address] US UA 02/02/2021 Care Plan: UA W/MICR ADD ON ORDER LOINC : 52773-0 Pending 01/26/2021 Visit Diagnosis Plan: Hematuria Discussion: Culture ur ine ICD-9 : 599.70 ICD-10 : R31.9 01/25/2021 Visit Diagnosis Plan: Blood loss anemia Discussion: Ch real CBC now ICD-9 : 280.0 ICD-10 : D50.0 01/25/2021 Appointment: Robson Mccormick WPtel: [address] [place], [place] [phone] ACUTE ILLNESS 01/25/2021 Appointment: Sara Aguila WPtel: [address] [place], [place] [phone] US CANCELED 01/01/2021 Visit Diagnosis Plan: Anxiety [...] Visit Diagnosis Plan: [facility]ER[facility]) Discussion: Stable on pantoprazole ICD-9 : 530.81 ICD-10 : K21.9 12/30/2020 Appointment: Robson Mccormick WPtel: [address] [place], [place] [phone] US FOLLOW UP 12/30/2020 Appointment: Robson Mccormick WPtel: [address] [place], [place] [phone] NURSE SERVICES 12/21/2020 Visit Diagnosis Plan: Insomnia [...] F43.0 11/10/2020 Appointment: Robson Mccormick WPtel: [address] [place], [place] [phone] US FOLLOW UP 11/10/2020 Patient Education: [email or web address] [phone] [email or web address] Completed 11/10/2020 Visit Diagnosis Plan: Mass of upper lobe of right lung Discussion: CT scan of lung results discussed with patient and told this looks like cancer Agrees to see pulmonology to see if will be amenable to bronchoscopy to get cells/washings ICD-9 : 786.6 ICD-10 : R91.8 07/29/2020 Appointment: Robson Mccormick WPtel: [id number] US WORK IN 07/29/2020 Care Plan: Referral Order SNOMED-CT : [id number] Pending 07/29/2020 Care Plan: CT SFT TSUE NCK W/O & W/DYE L OINC : 67426-7 Pending 07/21/2020 Visit Diagnosis Plan: Fatigue Discussion: [...] 07/20/2020 Appointment: Sara Aguila WPtel: [phone] [id number] ACUTE ILLNESS 07/20/2020 Patient Education: Patient Medication [...] ICD-10 : N39.0 04/30/2020 Appointment: Meena Li [address] [place], [place] [id number] ACUTE ILLNESS 04/30/2020 Appointment: Meena Li [address] [place], [place] [id number] 04/21/2020 1020---patient needed seen fo r appointment [...] : F32.9 04/09/2020 Appointment: Robson Mccormick WPtel: [address] [place], [place] [phone] [place] FOLLOW UP 04/09/2020 Care Plan: [place] : [id number] Pending 04/09/2020 Appointment: Robson Mccormick WPtel: [address] [place] [address] US LAB 04/07/2020 Visit Diagnosis Plan: Fatigue Discussion: no other sym ptoms other than fatigue for 4 weeks so will update labs. order sent to [facility] [place] blood work and ua with c&s. instructed to call office with new or worsening symptoms. ICD-9 : 780.79 ICD-10 : R53.83 11/22/2019 Appointment: Meena Li [address] [place] [address] TELEMEDICINE 11/22/2019 Appointment: Robson Mccormick WPtel: [address] [place], [place] [phone] [place] LAB 09/30/2019 Visit Diagnosis Plan: Coronary [...] : I10 09/10/2019 Appointment: Robson Mccormick WPtel: [facility] [place], [place] [id number] [place] NEW PATIENT 09/10/2019 Patient Education: carvedilol- [email or web address] Coupon [id number] [email or web address] Completed 09/10/2019 Appointment: Robson Mccormick WPtel: [address] [place], [place] [phone] [place] RESCHEDULED 08/20/2019 Appointment: Robson Mccormick WPtel: [address] [place], [place] [phone] [place] CANCELED 07/22/2019 Referral: Vikram Maguire WPtel: [phone] [facility] [address] [id number] [place] Referral Appointment Requested Instructions No Instructions Medical Equipment No Medical Equipment data Health Concerns Section Health Concerns data not found Goals Section Goals data not found Interventions Section Interventions data not found Health Status Evaluations/Outcomes Section Health Status Evaluations/Outcomes data not found Advance Directives No Advance Directive data
--- OUTSIDE RECORDS SUMMARY | 2021-05-18 09:18 | XMS REPORT | CCD ---
Author Author Erica Mccormick D.O. Organization [facility] Address [address] [place] [address] Phone Care Team Providers Care Night Club Manager Name Role Phone PP Unavailable CCM Unavailable Summary Purpose Interface Exchange Insurance Providers Payer name Policy type / Coverage type Covered democrat ID Effective Begin Date Effective End Date WPS MEDICARE PART B [place] Medicare Part B [id number] Unknown Unknown [employer] [place] [place] MEDIC[place] SU[place] Medicare Part B X [id number] Unknown Unknown Family History Family History data not found Social History Social History Element Codes Description Effective Dates Marital status Unknown 09/10/2019 Number of children Unknown 1 09/10/2019 Employment Unknown Retired 09/10/[address]: 1525202 Former smoker quit 201109/10/[address]: 999559 Currently drinks alcohol 09/09 Frequency of drinks SNOMED CT: 016341155 1-4 drinks per week Allergies, Adverse Reactions, [...] Fill Instructions tramadol 50 mg tablet RxNorm: 608027 1 Tablet(s) Oral t wo times a day as needed for pain 03/15/2021 No Stop Date Active ferrous sulfate 325 mg (65 mg iron) tablet RxNorm: 923909 Take 1 Tablet(s) Oral QD 01/28/2021 05/04/2021 Inactive pantoprazole 20 mg tablet,delayed release RxNorm: 854804 1 Tablet(s) Oral two times a day 12/22/2020 03/21/2021 Inactive pantoprazole 20 mg tablet,delayed release RxNorm: 931208 1 Tablet(s) Oral two times a day 12/22/2020 12/22/2020 Inactive paroxetine 20 mg tablet RxNorm: 5114220 1 Tablet(s) Oral QD 021 05/04/2021 Inactive paroxetine 20 mg tablet RxNorm: 8224375 1 Tablet(s) Oral QD 021 12/15/2020 Inactive paroxetine 20 mg tablet RxNorm: 7422362 1 Tablet(s) Oral QD 021 12/15/2020 Inactive MagOx 400 mg (241.3 mg magnesium) tablet RxNorm: 940640 Take 1 Tablet(s) Oral every night at bedtime with melatonin 11/23/2020 01/24/2021 Inactive melatonin 3 mg tablet RxNorm: 533998 Take 1-2 Tablet(s) Oral every night at bedtime 11/18/2020 No Stop Date Active Plavix 75 mg tablet RxNorm: 234439 Take 1 Tablet(s) Oral QD No Stop Date Active trazodone 50 mg tablet RxNorm: 820207 Take 1-2 Tablet(s ) Oral QPM as needed for sleep 11/10/2020 11/22/2020 Inactive atorvastatin 40 mg tablet RxNorm: 067489 Take 1 Tablet( s) Oral every night at bedtime 11/10/2020 05/04/2021 Inactive alprazolam 0.25 mg tablet RxNorm: 477913 1/2-1 Tablet(s ) Oral QPM as needed for sleep 08/03/2020 09/01/2020 Inactive alprazolam 0.25 mg tablet RxNorm: 940253 2-1 Tablet(s ) Oral QPM as needed for sleep 08/03/2020 08/02/2020 Inactive Aspirin Low Dose 81 mg tablet,delayed release RxNorm: 220003 1 Tablet(s) Oral QD 09/10/2019 No Stop Date Active carvedilol 6.25 mg tablet RxNorm: 920757 1 Tablet(s) Oral two t imes a day 09/10/2019 11/09/2020 Inactive Fish Oil 1,000 mg (120 mg-180 mg) capsule RxNorm: 1 Caps ule(s) Oral QD 09/10/2019 11/25/2019 Inactive losartan 25 mg tablet RxNorm: 079311 1 Tablet(s) Oral QD 09/10/2019 0 05/04/2021 Inactive Medication Administered No Medication Administered data Immunizations No Immunization data Results Observation Observation Code Item Item Code Result Date S ervice Location GFR CALC 8514660 GFR Non Afr Amr >60 mL/min 04/30/2021 Un known GFR CALC [id number] GFR Afr Amr >60 mL/min 04/30/2021 Unknow n COMPREHENSIVE METABOLIC 60138 AST 13 U/L 2021 Unknown COMPREHENSIVE METABOLIC 28218 ALT 12 U/L 2021 Unknown COMPREHENSIVE METABOLIC 42314 BUN 15 mg/dL 2021 Unknown COMPREHENSIVE METABOLIC 17070 ALBUMIN 4.0 g/dL 2021 Unknown COMPREHENSIVE METABOLIC 18691 CHLORIDE 103 mmol/L 04/30 Unknown COMPREHENSIVE METABOLIC 37131 Bili Total 0.4 mg/dL 04/30 Unknown COMPREHENSIVE METABOLIC 24994 ALK PHOS 75 U/L 2021 Unknown COMPREHENSIVE METABOLIC 03541 SODIUM 136 mmol/L 04/30 Unknown COMPREHENSIVE METABOLIC 69357 CREATININE 0.69 mg/dL 10/2021 Unknown COMPREHENSIVE METABOLIC 90270 CALCIUM 8.9 mg/dL 2021 Unknown COMPREHENSIVE METABOLIC 61503 POTASSIUM 4.3 mmol/L 04/30 Unknown COMPREHENSIVE METABOLIC 22051 Total Protein 6.7 g/dL Unknown COMPREHENSIVE METABOLIC 65463 Glucose 94 mg/dL 2021 Unknown COMPREHENSIVE METABOLIC 07535 Bicarbonate 25 mmol/L 10/2021 Unknown COMPREHENSIVE METABOLIC 36768 AGAP 8 mmol/L 2021 Unknown COMPLETE BLOOD COUNT [id number] WBC 4.6 10e9/L 04/30/19 22 Unknown COMPLETE BLOOD COUNT [id number] RBC 3.76 10e12/L 2021 Unknown COMPLETE BLOOD COUNT [id number] HEMOGLOBIN 10.9 g/dL 04/30/19 22 Unknown COMPLETE BLOOD COUNT [id number] HEMATOCRIT 35.3 % 04/30/19 22 Unknown COMPLETE BLOOD COUNT [id number] MCV 93.9 fL 2 Unknown COMPLETE BLOOD COUNT [id number] MCH 29.0 pg 2 Unknown COMPLETE BLOOD COUNT [id number] MCHC 30.9 g/dL 2 Unknown COMPLETE BLOOD COUNT [id number] PLATELET COUNT 254 10e9/L 10/2021 Unknown COMPLETE BLOOD COUNT [id number] Mean Plt Volume 9.0 fL 10/2021 Unknown COMPLETE BLOOD COUNT [id number] Neut Auto 73.2 % 2 Unknown COMPLETE BLOOD COUNT [id number] Lymph Auto 14.3 % 04/30/19 22 Unknown COMPLETE BLOOD COUNT [id number] [place] Auto 8.1 % 2 Unknown COMPLETE BLOOD COUNT [id number] RDW 17.8 % 2 Unknown COMPLETE BLOOD COUNT [id number] Eos Auto 3.7 % 2 Unknown COMPLETE BLOOD COUNT [id number] Baso Auto 0.7 % 2 Unknown COMPLETE BLOOD COUNT [id number] Neutrophil Abs 3.37 10e9/L Unknown COMPLETE BLOOD COUNT [id number] Lymphocyte Abs 0.66 10e9/L Unknown COMPLETE BLOOD COUNT [id number] Monocyte Abs 0.37 10e9/L 10/2021 Unknown COMPLETE BLOOD COUNT [id number] Eosinophil Abs 0.17 10e9/L Unknown COMPLETE BLOOD COUNT [id number] RDW-SD 59.5 fL 2 Unknown COMPLETE BLOOD COUNT [id number] Basophil Abs 0.03 10e9/L 10/2021 Unknown UA W/MICR 79838 UA Protein TNP:Specimen Not Received Unknown UA W/MICR 40921 UA Hemoglobin TNP:Specimen Not Received 02/17/2021 Unknown UA W/MICR 25163 UA Glucose TNP:Specimen Not Received Unknown UA W/MICR 86229 UA Ketones TNP:Specimen Not Received Unknown UA W/MICR 84948 UA pH TNP:Specimen Not Received Unknown UA W/MICR 46114 U Spec [place] TNP:Specimen Not Received 02/17/2021 Unknown UA W/MICR 90667 UA Bilirubin TNP:Specimen Not Received 02/17/2021 Unknown UA W/MICR 19049 UA Leuk [place] TNP:Specimen Not Receive d 02/17/2021 Unknown UA W/MICR 56713 UA Nitrite TNP:Specimen Not Received Unknown UA W/MICR 73601 UA WBC/hpf TNP:Specimen Not Received Unknown UA W/MICR 44627 UA RBC hpf TNP:Specimen Not Received Unknown UA W/MICR 81853 UA Protein TNP:Specimen Integrity 01/27 Unknown UA W/MICR 42665 UA Hemoglobin TNP:Specimen Integrity Unknown UA W/MICR 18667 UA Glucose TNP:Specimen Integrity 01/27 Unknown UA W/MICR 63916 UA Ketones TNP:Specimen Integrity 01/27 Unknown UA W/MICR 80484 UA pH TNP:Specimen Integrity 2020 Unknown UA W/MICR 84170 U Spec [place] TNP:Specimen Integrity 1 Unknown UA W/MICR 33457 UA Bilirubin TNP:Specimen Integrity 09/2020 Unknown UA W/MICR 68849 UA Leuk [place] TNP:Specimen Integrity 01/27/2021 Unknown UA W/MICR 74272 UA Nitrite TNP:Specimen Integrity 01/27 Unknown UA W/MICR 35381 UA WBC/hpf TNP:Specimen Integrity 01/27 Unknown UA W/MICR 18773 UA RBC hpf TNP:Specimen Integrity 01/27 Unknown COMPLETE BLOOD COUNT [id number] WBC 6.1 10e9/L 01/26/20 21 Unknown COMPLETE BLOOD COUNT [id number] RBC 3.34 10e12/L 2020 Unknown COMPLETE BLOOD COUNT [id number] HEMOGLOBIN 8.8 g/dL 01/26/20 21 Unknown COMPLETE BLOOD COUNT [id number] HEMATOCRIT 28.5 % 01/26/20 21 Unknown COMPLETE BLOOD COUNT [id number] MCV 85.3 fL 1 Unknown COMPLETE BLOOD COUNT 4763643 MCH 26.3 pg 1 Unknown COMPLETE BLOOD COUNT 4346537 MCHC 30.9 g/dL 1 Unknown COMPLETE BLOOD COUNT 9015775 PLATELET COUNT 268 10e9/L 07/2020 Unknown COMPLETE BLOOD COUNT [id number] Mean Plt Volume 8.7 fL 07/2020 Unknown COMPLETE BLOOD COUNT 9401450 Neut Auto 67.7 % 1 Unknown COMPLETE BLOOD COUNT [id number] Lymph Auto 19.4 % 01/26/20 21 Unknown COMPLETE BLOOD COUNT 3122361 [place] Auto 8.4 % 1 Unknown COMPLETE BLOOD COUNT 4004159 RDW 16.7 % 1 Unknown COMPLETE BLOOD COUNT 2405336 Eos Auto 3.8 % 1 Unknown COMPLETE BLOOD COUNT 3064930 Baso Auto 0.7 % 1 Unknown COMPLETE BLOOD COUNT [id number] Neutrophil Abs 4.13 10e9/L Unknown COMPLETE BLOOD COUNT [id number] Lymphocyte Abs 1.18 10e9/L Unknown COMPLETE BLOOD COUNT [id number] Monocyte Abs 0.51 10e9/L 07/2020 Unknown COMPLETE BLOOD COUNT [id number] Eosinophil Abs 0.23 10e9/L Unknown COMPLETE BLOOD COUNT [id number] RDW-SD 50.9 fL 1 Unknown COMPLETE BLOOD COUNT [id number] Basophil Abs 0.04 10e9/L 07/2020 Unknown GFR CALC 7118475 GFR Non Afr Amr >60 mL/min 01/25/2021 Un known GFR CALC 1844687 GFR Afr Amr >60 mL/min 01/25/2021 Unknow n COMPREHENSIVE METABOLIC 28238 AST 17 U/L 2020 Unknown COMPREHENSIVE METABOLIC 59564 ALT 13 U/L 2020 Unknown COMPREHENSIVE METABOLIC 85663 BUN 14 mg/dL 2020 Unknown COMPREHENSIVE METABOLIC 86815 ALBUMIN 4.1 g/dL 2020 Unknown COMPREHENSIVE METABOLIC 15010 CHLORIDE 102 mmol/L 01/25 Unknown COMPREHENSIVE METABOLIC 63305 Bili Total 0.4 mg/dL 01/25 Unknown COMPREHENSIVE METABOLIC 62473 ALK PHOS 85 U/L 2020 Unknown COMPREHENSIVE METABOLIC 73453 SODIUM 134 mmol/L 01/25 Unknown COMPREHENSIVE METABOLIC 74324 CREATININE 0.71 mg/dL 07/2020 Unknown COMPREHENSIVE METABOLIC 56258 CALCIUM 9.3 mg/dL 2020 Unknown COMPREHENSIVE METABOLIC 02727 POTASSIUM 4.3 mmol/L 01/25 Unknown COMPREHENSIVE METABOLIC 27351 Total Protein 7.0 g/dL Unknown COMPREHENSIVE METABOLIC 92511 Glucose 111 mg/dL 2020 Unknown COMPREHENSIVE METABOLIC 93704 Bicarbonate 24 mmol/L 07/2020 Unknown COMPREHENSIVE METABOLIC 83378 AGAP 8 mmol/L 2020 Unknown COMPREHENSIVE METABOLIC 09440 AST 16 U/L 2019 Unknown COMPREHENSIVE METABOLIC 66986 ALT 12 U/L 2019 Unknown COMPREHENSIVE METABOLIC 28161 BUN 13 mg/dL 2019 Unknown COMPREHENSIVE METABOLIC 12118 ALBUMIN 4.1 g/dL 2019 Unknown COMPREHENSIVE METABOLIC 51157 CHLORIDE 96 mmol/L 2019 Unknown COMPREHENSIVE METABOLIC 38025 Bili Total 1.1 mg/dL 04/09 Unknown COMPREHENSIVE METABOLIC 74144 ALK PHOS 80 U/L 2019 Unknown COMPREHENSIVE METABOLIC 63396 SODIUM 131 mmol/L 04/09 Unknown COMPREHENSIVE METABOLIC 60011 CREATININE 0.76 mg/dL 03/24 Unknown COMPREHENSIVE METABOLIC 47931 CALCIUM 9.0 mg/dL 2019 Unknown COMPREHENSIVE METABOLIC 14736 POTASSIUM 4.2 mmol/L 04/09 Unknown COMPREHENSIVE METABOLIC 64120 Total Protein 6.8 g/dL Unknown COMPREHENSIVE METABOLIC 36073 Glucose 101 mg/dL 2019 Unknown COMPREHENSIVE METABOLIC 12259 Bicarbonate 25 mmol/L 03/24 Unknown COMPREHENSIVE METABOLIC 35479 AGAP 10 mmol/L 2019 Unknown GFR CALC 9907264 GFR Non Afr Amr >60 mL/min 04/09/2020 Un known GFR CALC 5466160 GFR Afr Amr >60 mL/min 04/09/2020 Unknow n GAMMA GLUTAMYL TRANSFERASE 37058 GGT 19 U/L Unknown COMPLETE BLOOD COUNT 8478989 WBC 6.3 10e9/L 04/07/20 20 Unknown COMPLETE BLOOD COUNT [id number] RBC 4.36 10e12/L 2019 Unknown COMPLETE BLOOD COUNT 9375090 HEMOGLOBIN 15.2 g/dL 04/07/20 20 Unknown COMPLETE BLOOD COUNT [id number] HEMATOCRIT 43.8 % 04/07/20 20 Unknown COMPLETE BLOOD COUNT [id number] MCV 100.5 fL 0 Unknown COMPLETE BLOOD COUNT [id number] MCH 34.9 pg 0 Unknown COMPLETE BLOOD COUNT 7741950 MCHC 34.7 g/dL 0 Unknown COMPLETE BLOOD COUNT 2952781 PLATELET COUNT 254 10e9/L Unknown COMPLETE BLOOD COUNT 4278266 Mean Plt Volume 9.9 fL Unknown COMPLETE BLOOD COUNT 0058488 Neut Auto 63.3 % 0 Unknown COMPLETE BLOOD COUNT 0103043 Lymph Auto 24.5 % 04/07/20 Unknown COMPLETE BLOOD COUNT 7219014 [place] Auto 8.4 % 0 Unknown COMPLETE BLOOD COUNT 8445574 RDW 12.8 % 0 Unknown COMPLETE BLOOD COUNT 0648018 Eos Auto 3.2 % 0 Unknown COMPLETE BLOOD COUNT 6363862 Baso Auto 0.6 % 0 Unknown COMPLETE BLOOD COUNT [id number] Neutrophil Abs 3.99 10e9/L Unknown COMPLETE BLOOD COUNT [id number] Lymphocyte Abs 1.54 10e9/L Unknown COMPLETE BLOOD COUNT [id number] Monocyte Abs 0.53 10e9/L 03/24 Unknown COMPLETE BLOOD COUNT 8526420 Eosinophil Abs 0.20 10e9/L Unknown COMPLETE BLOOD COUNT [id number] RDW-SD 47.6 fL 0 Unknown COMPLETE BLOOD COUNT [id number] Basophil Abs 0.04 10e9/L 03/24 Unknown VITAMIN B 12 51624 VITAMIN B12 661 pg/mL 04/07/2020 Unkn own LIPID GROUP 35144 Cholesterol 168 mg/dL 09/30/2019 Unkno wn LIPID GROUP 30684 Triglyceride 141 mg/dL 09/30/2019 Unkn own L[facility] GROUP 94012 HDL CHOLESTEROL 66 mg/dL 09/30/2019 U nknown LIPID GROUP 14528 Chol/HDL Ratio 2.55 ratio 09/30/2019 U nknown LIPID GROUP 47660 NON-HDL Chol 102 mg/dL 09/30/2019 Unkn own LIPID GROUP 00812 LDL Cholesterol 74 mg/dL 09/30/2019 U nknown FREE T4 09542 T4 Free 0.76 ng/dL 09/30/2019 Unknown THYROID STIMULATING HORMONE 81956 TSH 2.186 uIU/mL 09/30/2019 Unknown GFR CALC 7541506 GFR Afr Amr >60 mL/min 09/30/2019 Unknow n GFR CALC 2379460 GFR Non Afr Amr >60 mL/min 09/30/2019 Un known COMPREHENSIVE METABOLIC 10954 AST 14 U/L 2019 Unknown COMPREHENSIVE METABOLIC 56011 ALT 11 U/L 2019 Unknown COMPREHENSIVE METABOLIC 96987 BUN 15 mg/dL 2019 Unknown COMPREHENSIVE METABOLIC 99744 ALBUMIN 4.0 g/dL 2019 Unknown COMPREHENSIVE METABOLIC 50734 CHLORIDE 96 mmol/L 2019 Unknown COMPREHENSIVE METABOLIC 53553 Bili Total 0.9 mg/dL 09/29 Unknown COMPREHENSIVE METABOLIC 25949 ALK PHOS 72 U/L 2019 Unknown COMPREHENSIVE METABOLIC 46124 SODIUM 132 mmol/L 09/29 Unknown COMPREHENSIVE METABOLIC 33291 CREATININE 0.73 mg/dL 11/2019 Unknown COMPREHENSIVE METABOLIC 32344 CALCIUM 9.1 mg/dL 2019 Unknown COMPREHENSIVE METABOLIC 91452 POTASSIUM 4.6 mmol/L 09/29 Unknown COMPREHENSIVE METABOLIC 63869 Total Protein 6.4 g/dL Unknown COMPREHENSIVE METABOLIC 32350 Glucose 97 mg/dL 2019 Unknown COMPREHENSIVE METABOLIC 71783 Bicarbonate 25 mmol/L 11/2019 Unknown COMPREHENSIVE METABOLIC 23136 AGAP 11 mmol/L 2019 Unknown COMPLETE BLOOD COUNT 7637247 WBC 5.3 10e9/L 09/30/19 20 Unknown COMPLETE BLOOD COUNT 6147171 RBC 4.16 10e12/L 2019 Unknown COMPLETE BLOOD COUNT 8688994 HEMOGLOBIN 14.1 g/dL 09/30/19 20 Unknown COMPLETE BLOOD COUNT 7064626 HEMATOCRIT 42.6 % 09/30/19 20 Unknown COMPLETE BLOOD COUNT 4842170 MCV 102.4 fL 0 Unknown COMPLETE BLOOD COUNT 3954975 MCH 33.9 pg 0 Unknown COMPLETE BLOOD COUNT 9387784 MCHC 33.1 g/dL 0 Unknown COMPLETE BLOOD COUNT 5492748 PLATELET COUNT 273 10e9/L 11/2019 Unknown COMPLETE BLOOD COUNT 8164497 Mean Plt Volume 9.4 fL 11/2019 Unknown COMPLETE BLOOD COUNT 5622320 Neut Auto 57.3 % 0 Unknown COMPLETE BLOOD COUNT 9751742 Lymph Auto 29.3 % 09/30/19 20 Unknown COMPLETE BLOOD COUNT 9298103 [place] Auto 7.6 % 0 Unknown COMPLETE BLOOD COUNT 8252237 RDW 13.8 % 0 Unknown COMPLETE BLOOD COUNT 2853463 Eos Auto 4.5 % 0 Unknown COMPLETE BLOOD COUNT 9415345 Baso Auto 1.3 % 0 Unknown COMPLETE BLOOD COUNT 8074718 Neutrophil Abs 3.04 10e9/L Unknown COMPLETE BLOOD COUNT 3061867 Lymphocyte Abs 1.55 10e9/L Unknown COMPLETE BLOOD COUNT 2061534 Monocyte Abs 0.40 10e9/L 11/2019 Unknown COMPLETE BLOOD COUNT 3504034 Eosinophil Abs 0.24 10e9/L Unknown COMPLETE BLOOD COUNT 0553454 RDW-SD 50.7 fL 0 Unknown COMPLETE BLOOD COUNT [id number] Basophil Abs 0.07 10e9/L 11/2019 Unknown Procedures Procedure Codes Date ROUTINE VENIPUNCTURE CPT-4: 80925 04/30/2021 COMPREHEN METABOLIC PANEL CPT-4: 40560 04/30/2021 COMPLETE CBC W/AUTO DIFF WBC CPT-4: 67152 04/30/2021 UA W/MICR CPT-4: 45173 02/15/2021 URINE CULTURE/ COLONY COUNT CPT-4: 47198 02/02/2021 ROUTINE VENIPUNCTURE CPT-4: 38704 01/25/2021 COMPREHEN METABOLIC PANEL CPT-4: 25436 01/25/2021 COMPLETE CBC W/AUTO DIFF WBC CPT-4: 74235 01/25/2021 URINE CULTURE/ COLONY COUNT CPT-4: 91196 01/25/2021 URINALYSIS NONAUTO W/O SCOPE CPT-4: 11647 01/25/2021 ROUTINE VENIPUNCTURE CPT-4: 41641 07/20/2020 COMPREHEN METABOLIC PANEL CPT-4: 66390 07/20/2020 ASSAY OF FREE THYROXINE CPT-4: 79620 07/20/2020 ASSAY THYROID STIM HORMONE CPT-4: 79065 07/20/2020 COMPLETE CBC W/AUTO DIFF WBC CPT-4: 39802 07/20/2020 RBC SED RATE AUTOMATED CPT-4: 91576 07/20/2020 URINALYSIS NONAUTO W/O SCOPE CPT-4: 52545 04/30/2020 URINE CULTURE/ COLONY COUNT CPT-4: 21044 04/30/2020 ROUTINE VENIPUNCTURE CPT-4: 39283 04/07/2020 COMPLETE CBC W/AUTO DIFF WBC CPT-4: 39643 04/07/2020 VITAMIN B-12 CPT-4: 08774 04/07/2020 ASSAY OF GGT CPT-4: 55219 04/07/2020 ROUTINE VENIPUNCTURE CPT-4: 59204 09/30/2019 ASSAY OF FREE THYROXINE CPT-4: 85606 09/30/2019 ASSAY THYROID STIM HORMONE CPT-4: 20466 09/30/2019 COMPREHEN METABOLIC PANEL CPT-4: 87668 09/30/2019 COMPLETE CBC W/AUTO DIFF WBC CPT-4: 96289 09/30/2019 LIPID PANEL CPT-4: 47353 09/30/2019 Vital Signs Date Vital 05/05/2021 Blood Pressure 1: 118/76 Code: 8480-6 BMI: 13.1 Code: 30704-6 Heart Rate 1: 67 bpm Height: 5'5" Code: 8302-2 Respiratory Rate: 16 bpm Temperatu re: 36.4 (C) / 97.5 (F) Weight: 79 lbs Code: 83102-9 01/25/2021 Blood Pressure 1: 102/68 Code: 8480-6 Heart Rate 1: 76 bpm Respiratory Rate: 20 bpm SpO2: 100% Temperature: 36.9 (C) / 98.5 (F) We ight: 87 lbs Code: 15395-3 12/30/2020 Blood Pressure 1: 134/80 Code: 8480-6 BMI: 14.1 Code: 27426-9 Heart Rate 1: 72 bpm Height: 5'5" Code: 8302-2 Respiratory Rate: 18 bpm SpO2: 97% Temperature: 36.6 (C) / 97.8 (F) Weight: 85 lbs Code: 92870-8 11/10/2020 Blood Pressure 1: 130/74 Code: 8480-6 Heart Rate 1: 56 bpm Respiratory Rate: 20 bpm SpO2: 98% Temperature: 36.3 (C) / 97.4 (F) We ight: 85 lbs Code: 13329-9 07/29/2020 Blood Pressure 1: 121/65 Code: 8480-6 BMI: 14.3 Code: 89406-4 Heart Rate 1: 58 bpm Height: 5'5" Code: 8302-2 Respiratory Rate: 15 bpm SpO2: 98% Temperature: 36.9 (C) / 98.4 (F) Weight: 86 lbs Code: 12456-2 07/20/2020 Blood Pressure 1: 123/69 Code: 8480-6 Heart Rate 1: 68 bpm Respiratory Rate: 15 bpm SpO2: 99% Temperature: 36.6 (C) / 97.8 (F) We ight: 83 lbs Code: 57857-2 04/30/2020 Blood Pressure 1: 128/82 Code: 8480-6 Heart Rate 1: 68 bpm Respiratory Rate: 20 bpm SpO2: 95% Temperature: 36.5 (C) / 97.7 (F) We ight: 91 lbs Code: 69327-4 04/09/2020 Blood Pressure 1: 130/78 Code: 8480-6 Heart Rate 1: 68 bpm Respiratory Rate: 20 bpm SpO2: 99% Temperature: 36.3 (C) / 97.4 (F) We ight: 90 lbs Code: 17330-8 11/22/2019 Temperature: 36.3 (C) / 97.3 (F) 09/10/2019 Blood Pressure 1: 128/72 Code: 8480-6 BMI: 15.6 Code: 41440-6 Heart Rate 1: 68 bpm Height: 5'5" Code: 8302-2 Respiratory Rate: 20 bpm SpO2: 97% Temperature: 36.6 (C) / 97.9 (F) Weight: 94 lbs Code: 55140-1 Functional Status No Functional Status data Reason [...] visit Encounters Encounter Performer Location Codes Date ([id number]) OFFICE/OUTPATIENT VISIT EST Diagnosis: Mass of right lung[ICD10: R91.8] Diagnosis: Right patella fracture[ICD10: S82.001A] Diagnosis: Abnormal weight loss[ICD10: R63.4] Diagnosis: Coronary artery arteriosclerosis[ICD10: I25.10] Diagnosis: Fatigue[ICD10: R53.83] Robson Maharaj [facility] CPT-4: 82012 05/05/2021 ([id number]) NURSE/OUTPATIENT VISIT EST Diagnosis: Essential (primary) hypertension[ICD10: I10] Diagnosis: Fatigue[ICD10: R53.83] Diagnosis: Blood loss anemia[ICD10: D50.0] Robson PEPPER [facility] CPT-4: 47832 04/30/2021 ([id number]) NURSE/OUTPATIENT VISIT EST Diagnosis: Urinary tract infection[ICD10: N39.0] Robson PEPPER [facility] CPT-4: 24525 02/02/2021 ([id number]) OFFICE/OUTPATIENT VISIT EST Diagnosis: Fatigue[ICD10: R53.83] Diagnosis: Blood loss anemia[ICD10: D50.0] Diagnosis: Coronary artery disease[ICD10: I25.10] Diagnosis: Hematuria[ICD10: R31.9] Robson CHANEL [facility] CPT-4: 58231 01/25/2021 ([id number]) OFFICE/OUTPATIENT VISIT EST Diagnosis: GERD (gastroesophageal reflux disease)[ICD10: K21.9] Diagnosis: Duodenal ulcer[ICD10: K26.9] Diagnosis: Coronary artery disease[ICD10: I25.10] Diagnosis: Anxiety[ICD10: F41.9] Diagnosis: Blood loss anemia[ICD10: D50.0] Robson [facility] CPT-4: 46163 12/30/2020 ([id number]) NURSE/OUTPATIENT VISIT EST Diagnosis: Edema[ICD10: R60.9] Robson [facility] CPT-4: 60062 12/21/2020 ([id number]) OFFICE/OUTPATIENT VISIT EST Diagnosis: Coronary artery disease[ICD10: I25.10] Diagnosis: Essential (primary) hypertension[ICD10: I10] Diagnosis: Stress reaction[ICD10: F43.0] Diagnosis: Insomnia[ICD10: G47.00] Diagnosis: Pulmonary nodule[ICD10: R91.1] Robson [facility] CPT-4: 18794 11/10/2020 ([id number]) NO CHARGE Diagnosis: Mass of upper lobe of right lung[ICD10: R91.8] Robson [facility] CPT-4: 94536 07/29/2020 ([id number]) OFFICE/OUTPATIENT VISIT EST Diagnosis: Fatigue[ICD10: R53.83] Diagnosis: Lymphadenopathy of head and neck[ICD10: R59.1] Diagnosis: Weight loss, non-intentional[ICD10: R63.4] Diagnosis: History of melanoma[ICD10: Z85.820] Diagnosis: Skin lesion[ICD10: L98.9] Sara Mingo ROBSON [facility] CPT-4: 32699 07/20/2020 ([id number]) OFFICE/OUTPATIENT VISIT EST Diagnosis: Urinary tract infection[ICD10: N39.0] [facility] 36298 04/30/2020 ([id number]) OFFICE/OUTPATIENT VISIT EST Diagnosis: Dizziness[ICD10: R42] Diagnosis: Depressed mood with feeling of loneliness[ICD10: F32.9] Diagnosis: Insomnia[ICD10: G47.00] Robsondouglas CHANEL [facility] CPT-4: 46889 04/09/2020 ([id number]) NURSE/OUTPATIENT VISIT EST Diagnosis: Coronary artery disease[ICD10: I25.10] Diagnosis: Fatigue[ICD10: R53.83] Diagnosis: Essential (primary) hypertension[ICD10: I10] Robson [facility] CPT-4: 69766 04/07/2020 ([id number]) OFFICE/OUTPATIENT VISIT EST Diagnosis: Fatigue[ICD10: R53.83] Meena Li [facility] CPT-4: 83804 11/22/2019 ([id number]) NURSE/OUTPATIENT VISIT EST Diagnosis: Essential (primary) hypertension[ICD10: I10] Diagnosis: Coronary artery disease[ICD10: I25.10] Diagnosis: Encounter for general adult medical examination with abnormal findings[ICD10: Z00.01] Robson Anny [facility] CPT-4: 88952 09/30/2019 ([id number]) OFFICE/OUTPATIENT VISIT NEW Diagnosis: Essential (primary) hypertension[ICD10: I10] Diagnosis: Coronary artery disease[ICD10: I25.10] Diagnosis: Aortic valve stenosis with insufficiency[ICD10: I35.2] Robson MCCORMICK [facility] CPT-4: 92160 09/10/2019 Plan of Care Planned Activity Notes [...] Plan: 04/30/2021 Appointment[facility] [phone] [id number] [facility] 04/30/2021 Appointment: Robson Mccormick WPtel: [address] [place] [address] [place] scheduled by VC CANCELED 03/10/2021 Appointment: Robson Mccormick WPtel: [phone] [place], [place] [phone] [place] patient unable to leave urine CANCELED Appointment: Robson Mccormick WPtel: [phone] [place], [place] [phone] [place] CANCELED 02/02/2021 Appointment: Robson Mccormick WPtel: [address] [place] [address] [place] UA 02/02/2021 Care Plan: UA W/MICR ADD ON ORDER LOINC : 43022-7 Pending 01/26/2021 Visit Diagnosis Plan: Hematuria Discussion: Culture ur ine ICD-9 : 599.70 ICD-10 : R31.9 01/25/2021 Visit Diagnosis Plan: Blood loss anemia Discussion: Ch real CBC now ICD-9 : 280.0 ICD-10 : D50.0 01/25/2021 Appointment: Robson Mccormick WPtel: [address] [place], [place] [phone] 01/25/2021 Appointment: Sara Aguila WPtel: [address] [place], [place] [phone] US CANCELED 01/01/2021 Visit Diagnosis Plan: Anxiety [...] Visit Diagnosis Plan: GERD ([facility]) Discussion: Stable on pantoprazole ICD-9 : 530.81 ICD-10 : K21.9 12/30/2020 Appointment: Robson Mccormick WPtel: [address] [place], [place] [phone] US FOLLOW UP 12/30/2020 Appointment: Robson Mccormick WPtel: [address] [place], [place] [phone] NURSE SERVICES 12/21/2020 Visit Diagnosis Plan: Insomnia [...] : F43.0 11/10/2020 Appointment: Robson Mccormick WPtel: [address] [place], [place] [phone] US FOLLOW UP 11/10/2020 Patient Education: trazodone- [employer] Coupon [phone] [email or web address] Completed 11/10/2020 Visit Diagnosis Plan: Mass of upper lobe of right lung Discussion: CT scan of lung results discussed with patient and told this looks like cancer Agrees to see pulmonology to see if will be amenable to bronchoscopy to get cells/washings ICD-9 : 786.6 ICD-10 : R91.8 07/29/2020 Appointment: Robson Mccormick WPtel: [facility] US WORK IN 07/29/2020 Care Plan: Referral Order SNOMED-CT : [id number] Pending 07/29/2020 Care Plan: CT SFT TSUE NCK W/O & W/DYE L OINC : 71115-9 Pending 07/21/2020 Visit Diagnosis Plan: Fatigue Discussion: [...] 07/20/2020 Appointment: Sara Aguila WPtel: [phone] [facility] [facility] ACUTE ILLNESS 07/20/2020 Patient [...] ICD-10 : N39.0 04/30/2020 Appointment: Meena Li [address] [place], [place] [id number] ACUTE ILLNESS 04/30/2020 Appointment: Meena Li [address] [place], [place] [id number] 04/21/2020 1020---patient needed seen [...] : F32.9 04/09/2020 Appointment: Robson Mccormick WPtel: [address] [place], [place] [id number] US FOLLOW UP 04/09/2020 Care Plan: [place] : [id number] Pending 04/09/2020 Appointment: Robson Mccormick WPtel: [address] [place] [address] US LAB 04/07/2020 Visit Diagnosis Plan: Fatigue Discussion: no other sym ptoms other than fatigue for 4 weeks so will update labs. order sent to [facility] for blood work and ua with c&s. instructed to call office with new or worsening symptoms. ICD-9 : 780.79 ICD-10 : R53.83 11/22/2019 Appointment: Meena Li [address] [place] [address] TELEMEDICINE 11/22/2019 Appointment: Robson Mccormick WPtel: [address] [place], [place] [phone] US LAB 09/30/2019 Visit Diagnosis Plan: Coronary [...] : I10 09/10/2019 Appointment: Robson Mccormick WPtel: [facility] [place], [place] [phone] [place] NEW PATIENT 09/10/2019 Patient Education: carvedilol- [employer] Coupon [phone] [email or web address] Completed 09/10/2019 Appointment: Robson Mccormick WPtel: [address] [place], [place] [phone] US RESCHEDULED 08/20/2019 Appointment: Robson Mccormick WPtel: [address] [place], [place] [phone] US CANCELED 07/22/2019 Referral: Vikram Maguire WPtel: [address] [facility] [address] [id number] [place] Referral Appointment Requested Instructions No Instructions Medical Equipment No Medical Equipment data Health Concerns Section Health Concerns data not found Goals Section Goals data not found Interventions Section Interventions data not found Health Status Evaluations/Outcomes Section Health Status Evaluations/Outcomes data not found Advance Directives No Advance Directive data
--- OUTSIDE RECORDS SUMMARY | 2021-05-18 09:19 | XMS REPORT | CCD ---
Author Author Erica Mccormick D.O. Organization ERICKA MCCORMICK DO [facility] Address [address] [place] [address] Phone Care Team Providers Care Telegraph Office Route Aide Name Role Phone PP Unavailable CCM Unavailable Summary Purpose Interface Exchange Insurance Providers Payer name Policy type / Coverage type Covered green party ID Effective Begin Date Effective End Date WPS MEDICARE PART B [place] Medicare Part B [id number] Unknown Unknown [employer]UE [place] [employer] [place] MEDIC[place] Medicare Part B X [id number] Unknown Unknown Family History Family History data not found Social History Social History Element Codes Description Effective Dates Marital status Unknown 09/10/2019 Number of children Unknown 1 09/10/2019 Employment Unknown Retired 09/10/[address]: 0194096 Former smoker quit 201109/10/[address]: 608392 Currently drinks alcohol 09/09 Frequency of drinks SNOMED CT: 119794715 1-4 drinks per week Allergies, Adverse Reactions, [...] hypertension ICD-10: I10 ICD-9: 401.9 09/10/2019 Active Fatigue ICD-10: R53.83 ICD-9: 780.79 11/22/2019 Active Hematuria ICD-10: R31.9 ICD-9: 599.70 01/25/2021 Active Urinary tract infection ICD-10: N39.0 ICD-9: 599.0 04/30/2020 Active Coronary artery disease ICD-10: I25.10 ICD-9: 414.00 09/10/2019 Active Anxiety ICD-10: F41.9 ICD-9: 300.00 12/30/2020 [...] Fill Instructions tramadol 50 mg tablet RxNorm: 835701 1 Tablet(s) Oral t wo times a day as needed for pain 03/15/2021 No Stop Date Active ferrous sulfate 325 mg (65 mg iron) tablet RxNorm: 547084 Take 1 Tablet(s) Oral QD 01/28/2021 No Stop Date Active paroxetine 20 mg tablet RxNorm: 7203434 1 Tablet(s) Oral QD 021 01/20/2021 Inactive pantoprazole 20 mg tablet,delayed release RxNorm: 269496 1 Tablet(s) Oral two times a day 12/22/2020 03/21/2021 Inactive pantoprazole 20 mg tablet,delayed release RxNorm: 373701 1 Tablet(s) Oral two times a day 12/22/2020 12/22/2020 Inactive paroxetine 20 mg tablet RxNorm: 5983966 1 Tablet(s) Oral QD 021 12/15/2020 Inactive paroxetine 20 mg tablet RxNorm: 4989751 1 Tablet(s) Oral QD 021 12/15/2020 Inactive MagOx 400 mg (241.3 mg magnesium) tablet RxNorm: 450490 Take 1 Tablet(s) Oral every night at bedtime with melatonin 11/23/2020 01/24/2021 Inactive melatonin 3 mg tablet RxNorm: 653201 Take 1-2 Tablet(s) Oral every night at bedtime 11/18/2020 No Stop Date Active atorvastatin 40 mg tablet RxNorm: 124928 Take 1 Tablet( s) Oral every night at bedtime 11/10/2020 No Stop Date Active Plavix 75 mg tablet RxNorm: 371920 Take 1 Tablet(s) Oral QD No Stop Date Active trazodone 50 mg tablet RxNorm: 943837 Take 1-2 Tablet(s ) Oral QPM as needed for sleep 11/10/2020 11/22/2020 Inactive alprazolam 0.25 mg tablet RxNorm: 915176 1/2-1 Tablet(s ) Oral QPM as needed for sleep 08/03/2020 09/01/2020 Inactive alprazolam 0.25 mg tablet RxNorm: 372663 1/2-1 Tablet(s ) Oral QPM as needed for sleep 08/03/2020 08/02/2020 Inactive Aspirin Low Dose 81 mg tablet,delayed release RxNorm: 691000 1 Tablet(s) Oral QD 09/10/2019 No Stop Date Active losartan 25 mg tablet RxNorm: 167480 1 Tablet(s) Oral QD 09/10/2019 No Stop Date Active carvedilol 6.25 mg tablet RxNorm: 803594 1 Tablet(s) Oral two t imes a day 09/10/2019 11/09/2020 Inactive Fish Oil 1,000 mg (120 mg-180 mg) capsule RxNorm: 1 Caps ule(s) Oral QD 09/10/2019 11/25/2019 Inactive Medication Administered No Medication Administered data Immunizations No Immunization data Results Observation Observation Code Item Item Code Result Date S ervice Location UA W/MICR [id number] UA Protein TNP:Specimen Not Received Unknown UA W/MICR 88656 UA Hemoglobin TNP:Specimen Not Received 02/17/2021 Unknown UA W/MICR 95694 UA Glucose TNP:Specimen Not Received Unknown UA W/MICR 73855 UA Ketones TNP:Specimen Not Received Unknown UA W/MICR 79741 UA pH TNP:Specimen Not Received Unknown UA W/MICR 71275 U Spec [place] TNP:Specimen Not Received 02/17/2021 Unknown UA W/MICR 72755 UA Bilirubin TNP:Specimen Not Received 02/17/2021 Unknown UA W/MICR 15631 UA Leuk [place]ster[place] TNP:Specimen Not Receive d 02/17/2021 Unknown UA W/MICR 97207 UA Nitrite TNP:Specimen Not Received Unknown UA W/MICR 62554 UA WBC/hpf TNP:Specimen Not Received Unknown UA W/MICR 95013 UA RBC hpf TNP:Specimen Not Received Unknown UA W/MICR 53121 UA Protein TNP:Specimen Integrity 01/27 Unknown UA W/MICR 33707 UA Hemoglobin TNP:Specimen Integrity Unknown UA W/MICR 06315 UA Glucose TNP:Specimen Integrity 01/27 Unknown UA W/MICR 77833 UA Ketones TNP:Specimen Integrity 01/27 Unknown UA W/MICR 46671 UA pH TNP:Specimen Integrity 2020 Unknown UA W/MICR 91855 U Spec [place] TNP:Specimen Integrity 1 Unknown UA W/MICR 54241 UA Bilirubin TNP:Specimen Integrity 09/2020 Unknown UA W/MICR 32407 UA Leuk [place] TNP:Specimen Integrity 01/27/2021 Unknown UA W/MICR 27825 UA Nitrite TNP:Specimen Integrity 01/27 Unknown UA W/MICR 49498 UA WBC/hpf TNP:Specimen Integrity 01/27 Unknown UA W/MICR 08837 UA RBC hpf TNP:Specimen Integrity 01/27 Unknown COMPLETE BLOOD COUNT [id number] WBC 6.1 10e9/L 01/26/20 21 Unknown COMPLETE BLOOD COUNT [id number] RBC 3.34 10e12/L 2020 Unknown COMPLETE BLOOD COUNT [id number] HEMOGLOBIN 8.8 g/dL 01/26/20 21 Unknown COMPLETE BLOOD COUNT [id number] HEMATOCRIT 28.5 % 01/26/20 21 Unknown COMPLETE BLOOD COUNT [id number] MCV 85.3 fL 1 Unknown COMPLETE BLOOD COUNT [id number] MCH 26.3 pg 1 Unknown COMPLETE BLOOD COUNT [id number] MCHC 30.9 g/dL 1 Unknown COMPLETE BLOOD COUNT [id number] PLATELET COUNT 268 10e9/L 07/2020 Unknown COMPLETE BLOOD COUNT 1734174 Mean Plt Volume 8.7 fL 07/2020 Unknown COMPLETE BLOOD COUNT 9440952 Neut Auto 67.7 % 1 Unknown COMPLETE BLOOD COUNT [id number] Lymph Auto 19.4 % 01/26/20 21 Unknown COMPLETE BLOOD COUNT 9433577 P[place] Auto 8.4 % 1 Unknown COMPLETE BLOOD COUNT 6108009 RDW 16.7 % 1 Unknown COMPLETE BLOOD COUNT 9385095 Eos Auto 3.8 % 1 Unknown COMPLETE BLOOD COUNT 3649586 Baso Auto 0.7 % 1 Unknown COMPLETE BLOOD COUNT 0411667 Neutrophil Abs 4.13 10e9/L Unknown COMPLETE BLOOD COUNT [id number] Lymphocyte Abs 1.18 10e9/L Unknown COMPLETE BLOOD COUNT 1476156 Monocyte Abs 0.51 10e9/L 07/2020 Unknown COMPLETE BLOOD COUNT 0978294 Eosinophil Abs 0.23 10e9/L Unknown COMPLETE BLOOD COUNT 3743240 RDW-SD 50.9 fL Unknown COMPLETE BLOOD COUNT 1163766 Basophil Abs 0.04 10e9/L 07/2020 Unknown GFR CALC 1490869 GFR Non Afr Amr >60 mL/min 01/25/2021 Un known GFR CALC [id number] GFR Afr Amr >60 mL/min 01/25/2021 Unknow n COMPREHENSIVE METABOLIC 52778 AST 17 U/L 2020 Unknown COMPREHENSIVE METABOLIC 61045 ALT 13 U/L 2020 Unknown COMPREHENSIVE METABOLIC 74714 BUN 14 mg/dL 2020 Unknown COMPREHENSIVE METABOLIC 49380 ALBUMIN 4.1 g/dL 2020 Unknown COMPREHENSIVE METABOLIC 23723 CHLORIDE 102 mmol/L 01/25 Unknown COMPREHENSIVE METABOLIC 16561 Bili Total 0.4 mg/dL 01/25 Unknown COMPREHENSIVE METABOLIC 86808 ALK PHOS 85 U/L 2020 Unknown COMPREHENSIVE METABOLIC 29119 SODIUM 134 mmol/L 01/25 Unknown COMPREHENSIVE METABOLIC 29748 CREATININE 0.71 mg/dL 07/2020 Unknown COMPREHENSIVE METABOLIC 72475 CALCIUM 9.3 mg/dL 2020 Unknown COMPREHENSIVE METABOLIC 38072 POTASSIUM 4.3 mmol/L 01/25 Unknown COMPREHENSIVE METABOLIC 30576 Total Protein 7.0 g/dL Unknown COMPREHENSIVE METABOLIC 45273 Glucose 111 mg/dL 2020 Unknown COMPREHENSIVE METABOLIC 97903 Bicarbonate 24 mmol/L 07/2020 Unknown COMPREHENSIVE METABOLIC 79871 AGAP 8 mmol/L 2020 Unknown COMPREHENSIVE METABOLIC 43804 AST 16 U/L 2019 Unknown COMPREHENSIVE METABOLIC 68950 ALT 12 U/L 2019 Unknown COMPREHENSIVE METABOLIC 62608 BUN 13 mg/dL 2019 Unknown COMPREHENSIVE METABOLIC 92308 ALBUMIN 4.1 g/dL 2019 Unknown COMPREHENSIVE METABOLIC 44880 CHLORIDE 96 mmol/L 2019 Unknown COMPREHENSIVE METABOLIC 75327 Bili Total 1.1 mg/dL 04/09 Unknown COMPREHENSIVE METABOLIC 54405 ALK PHOS 80 U/L 2019 Unknown COMPREHENSIVE METABOLIC 09178 SODIUM 131 mmol/L 04/09 Unknown COMPREHENSIVE METABOLIC 66798 CREATININE 0.76 mg/dL 03/24 Unknown COMPREHENSIVE METABOLIC 02436 CALCIUM 9.0 mg/dL 2019 Unknown COMPREHENSIVE METABOLIC 65688 POTASSIUM 4.2 mmol/L 04/09 Unknown COMPREHENSIVE METABOLIC 13593 Total Protein 6.8 g/dL Unknown COMPREHENSIVE METABOLIC 25139 Glucose 101 mg/dL 2019 Unknown COMPREHENSIVE METABOLIC 25572 Bicarbonate 25 mmol/L 03/24 Unknown COMPREHENSIVE METABOLIC 32294 AGAP 10 mmol/L 2019 Unknown GFR CALC 1727863 GFR Non Afr Amr >60 mL/min 04/09/2020 Un known GFR CALC [id number] GFR Afr Amr >60 mL/min 04/09/2020 Unknow n GAMMA GLUTAMYL TRANSFERASE 22088 GGT 19 U/L Unknown COMPLETE BLOOD COUNT [id number] WBC 6.3 10e9/L 04/07/20 20 Unknown COMPLETE BLOOD COUNT 4863271 RBC 4.36 10e12/L 2019 Unknown COMPLETE BLOOD COUNT 4082012 HEMOGLOBIN 15.2 g/dL 04/07/20 20 Unknown COMPLETE BLOOD COUNT 1206551 HEMATOCRIT 43.8 % 04/07/20 20 Unknown COMPLETE BLOOD COUNT 9921674 MCV 100.5 fL 0 Unknown COMPLETE BLOOD COUNT 9791322 MCH 34.9 pg 0 Unknown COMPLETE BLOOD COUNT 0271133 MCHC 34.7 g/dL 0 Unknown COMPLETE BLOOD COUNT 1074517 PLATELET COUNT 254 10e9/L Unknown COMPLETE BLOOD COUNT 3991972 Mean Plt Volume 9.9 fL Unknown COMPLETE BLOOD COUNT 2158220 Neut Auto 63.3 % 0 Unknown COMPLETE BLOOD COUNT 8722854 Lymph Auto 24.5 % 04/07/20 20 Unknown COMPLETE BLOOD COUNT 3606156 [place] Auto 8.4 % 0 Unknown COMPLETE BLOOD COUNT 6532395 RDW 12.8 % 0 Unknown COMPLETE BLOOD COUNT 4207980 Eos Auto 3.2 % 0 Unknown COMPLETE BLOOD COUNT 8723126 Baso Auto 0.6 % 0 Unknown COMPLETE BLOOD COUNT 1512969 Neutrophil Abs 3.99 10e9/L Unknown COMPLETE BLOOD COUNT 1437304 Lymphocyte Abs 1.54 10e9/L Unknown COMPLETE BLOOD COUNT 1609602 Monocyte Abs 0.53 10e9/L 03/24 Unknown COMPLETE BLOOD COUNT 5450236 Eosinophil Abs 0.20 10e9/L Unknown COMPLETE BLOOD COUNT 5811294 RDW-SD 47.6 fL 0 Unknown COMPLETE BLOOD COUNT 3088628 Basophil Abs 0.04 10e9/L 03/24 Unknown VITAMIN B 12 56852 VITAMIN B12 661 pg/mL 04/07/2020 Unkn own LIPID GROUP 00213 Cholesterol 168 mg/dL 09/30/2019 Unkno wn LIPID GROUP 68681 Triglyceride 141 mg/dL 09/30/2019 Unkn own LIPID GROUP 55678 HDL CHOLESTEROL 66 mg/dL 09/30/2019 U nknown LIPID GROUP 79889 Chol/HDL Ratio 2.55 ratio 09/30/2019 U nknown LIPID GROUP 65146 NON-HDL Chol 102 mg/dL 09/30/2019 Unkn own LIPID GROUP 59966 LDL Cholesterol 74 mg/dL 09/30/2019 U nknown FREE T4 00963 T4 Free 0.76 ng/dL 09/30/2019 Unknown THYROID STIMULATING HORMONE 81004 TSH 2.186 uIU/mL 09/30/2019 Unknown GFR CALC 9860696 GFR Non Afr Amr >60 mL/min 09/30/2019 Un known GFR CALC 2599556 GFR Afr Amr >60 mL/min 09/30/2019 Unknow n COMPREHENSIVE METABOLIC 87736 AST 14 U/L 2019 Unknown COMPREHENSIVE METABOLIC 22580 ALT 11 U/L 2019 Unknown COMPREHENSIVE METABOLIC 12635 BUN 15 mg/dL 2019 Unknown COMPREHENSIVE METABOLIC 44868 ALBUMIN 4.0 g/dL 2019 Unknown COMPREHENSIVE METABOLIC 83858 CHLORIDE 96 mmol/L 2019 Unknown COMPREHENSIVE METABOLIC 11733 Bili Total 0.9 mg/dL 09/29 Unknown COMPREHENSIVE METABOLIC 77866 ALK PHOS 72 U/L 2019 Unknown COMPREHENSIVE METABOLIC 53224 SODIUM 132 mmol/L 09/29 Unknown COMPREHENSIVE METABOLIC 97648 CREATININE 0.73 mg/dL 11/2019 Unknown COMPREHENSIVE METABOLIC 68029 CALCIUM 9.1 mg/dL 2019 Unknown COMPREHENSIVE METABOLIC 27644 POTASSIUM 4.6 mmol/L 09/29 Unknown COMPREHENSIVE METABOLIC 02841 Total Protein 6.4 g/dL Unknown COMPREHENSIVE METABOLIC 17167 Glucose 97 mg/dL 2019 Unknown COMPREHENSIVE METABOLIC 01127 Bicarbonate 25 mmol/L 11/2019 Unknown COMPREHENSIVE METABOLIC 12587 AGAP 11 mmol/L 2019 Unknown COMPLETE BLOOD COUNT 1448066 WBC 5.3 10e9/L 09/30/19 20 Unknown COMPLETE BLOOD COUNT 6548732 RBC 4.16 10e12/L 2019 Unknown COMPLETE BLOOD COUNT 7613808 HEMOGLOBIN 14.1 g/dL 09/30/19 20 Unknown COMPLETE BLOOD COUNT 6455601 HEMATOCRIT 42.6 % 09/30/19 20 Unknown COMPLETE BLOOD COUNT 2028887 MCV 102.4 fL 0 Unknown COMPLETE BLOOD COUNT 4790747 MCH 33.9 pg 0 Unknown COMPLETE BLOOD COUNT 5722519 MCHC 33.1 g/dL 0 Unknown COMPLETE BLOOD COUNT 0577600 PLATELET COUNT 273 10e9/L 11/2019 Unknown COMPLETE BLOOD COUNT 0905553 Mean Plt Volume 9.4 fL 11/2019 Unknown COMPLETE BLOOD COUNT 3409581 Neut Auto 57.3 % 0 Unknown COMPLETE BLOOD COUNT 8866523 Lymph Auto 29.3 % 09/30/19 20 Unknown COMPLETE BLOOD COUNT 3867258 Pinal Auto 7.6 % 0 Unknown COMPLETE BLOOD COUNT 8227373 RDW 13.8 % 0 Unknown COMPLETE BLOOD COUNT 7847013 Eos Auto 4.5 % 0 Unknown COMPLETE BLOOD COUNT 8123878 Baso Auto 1.3 % 0 Unknown COMPLETE BLOOD COUNT 4755048 Neutrophil Abs 3.04 10e9/L Unknown COMPLETE BLOOD COUNT 8843638 Lymphocyte Abs 1.55 10e9/L Unknown COMPLETE BLOOD COUNT 1761845 Monocyte Abs 0.40 10e9/L 11/2019 Unknown COMPLETE BLOOD COUNT 4037829 Eosinophil Abs 0.24 10e9/L Unknown COMPLETE BLOOD COUNT 3096391 RDW-SD 50.7 fL 0 Unknown COMPLETE BLOOD COUNT 7058206 Basophil Abs 0.07 10e9/L 06/0 11/2019 Unknown Procedures Procedure Codes Date ROUTINE VENIPUNCTURE CPT-4: 80494 04/30/2021 COMPREHEN METABOLIC PANEL CPT-4: 85317 04/30/2021 COMPLETE CBC W/AUTO DIFF WBC CPT-4: 32087 04/30/2021 UA W/MICR CPT-4: 27069 02/15/2021 URINE CULTURE/ COLONY COUNT CPT-4: 58089 02/02/2021 ROUTINE VENIPUNCTURE CPT-4: 61032 01/25/2021 COMPREHEN METABOLIC PANEL CPT-4: 37123 01/25/2021 COMPLETE CBC W/AUTO DIFF WBC CPT-4: 43371 01/25/2021 URINE CULTURE/ COLONY COUNT CPT-4: 13940 01/25/2021 URINALYSIS NONAUTO W/O SCOPE CPT-4: 57784 01/25/2021 ROUTINE VENIPUNCTURE CPT-4: 18049 07/20/2020 COMPREHEN METABOLIC PANEL CPT-4: 98220 07/20/2020 ASSAY OF FREE THYROXINE CPT-4: 93872 07/20/2020 ASSAY THYROID STIM HORMONE CPT-4: 78591 07/20/2020 COMPLETE CBC W/AUTO DIFF WBC CPT-4: 76790 07/20/2020 RBC SED RATE AUTOMATED CPT-4: 72499 07/20/2020 URINALYSIS NONAUTO W/O SCOPE CPT-4: 53245 04/30/2020 URINE CULTURE/ COLONY COUNT CPT-4: 16050 04/30/2020 ROUTINE VENIPUNCTURE CPT-4: 71053 04/07/2020 COMPLETE CBC W/AUTO DIFF WBC CPT-4: 24631 04/07/2020 VITAMIN B-12 CPT-4: 67624 04/07/2020 ASSAY OF GGT CPT-4: 49711 04/07/2020 ROUTINE VENIPUNCTURE CPT-4: 60266 09/30/2019 ASSAY OF FREE THYROXINE CPT-4: 68202 09/30/2019 ASSAY THYROID STIM HORMONE CPT-4: 09644 09/30/2019 COMPREHEN METABOLIC PANEL CPT-4: 90617 09/30/2019 COMPLETE CBC W/AUTO DIFF WBC CPT-4: 86557 09/30/2019 LIPID PANEL CPT-4: 76655 09/30/2019 Vital Signs Date Vital 01/25/2021 Blood Pressure 1: 102/68 Code: 8480-6 Heart Rate 1: 76 bpm Respiratory Rate: 20 bpm SpO2: 100% Temperature: 36.9 (C) / 98.5 (F) We ight: 87 lbs Code: 95325-0 12/30/2020 Blood Pressure 1: 134/80 Code: 8480-6 BMI: 14.1 Code: 09679-0 Heart Rate 1: 72 bpm Height: 5'5" Code: 8302-2 Respiratory Rate: 18 bpm SpO2: 97% Temperature: 36.6 (C) / 97.8 (F) Weight: 85 lbs Code: 26378-4 11/10/2020 Blood Pressure 1: 130/74 Code: 8480-6 Heart Rate 1: 56 bpm Respiratory Rate: 20 bpm SpO2: 98% Temperature: 36.3 (C) / 97.4 (F) We ight: 85 lbs Code: 76172-4 07/29/2020 Blood Pressure 1: 121/65 Code: 8480-6 BMI: 14.3 Code: 82206-1 Heart Rate 1: 58 bpm Height: 5'5" Code: 8302-2 Respiratory Rate: 15 bpm SpO2: 98% Temperature: 36.9 (C) / 98.4 (F) Weight: 86 lbs Code: 42434-7 07/20/2020 Blood Pressure 1: 123/69 Code: 8480-6 Heart Rate 1: 68 bpm Respiratory Rate: 15 bpm SpO2: 99% Temperature: 36.6 (C) / 97.8 (F) We ight: 83 lbs Code: 10559-8 04/30/2020 Blood Pressure 1: 128/82 Code: 8480-6 Heart Rate 1: 68 bpm Respiratory Rate: 20 bpm SpO2: 95% Temperature: 36.5 (C) / 97.7 (F) We ight: 91 lbs Code: 85143-4 04/09/2020 Blood Pressure 1: 130/78 Code: 8480-6 Heart Rate 1: 68 bpm Respiratory Rate: 20 bpm SpO2: 99% Temperature: 36.3 (C) / 97.4 (F) We ight: 90 lbs Code: 58328-2 11/22/2019 Temperature: 36.3 (C) / 97.3 (F) 09/10/2019 Blood Pressure 1: 128/72 Code: 8480-6 BMI: 15.6 Code: 05134-2 Heart Rate 1: 68 bpm Height: 5'5" Code: 8302-2 Respiratory Rate: 20 bpm SpO2: 97% Temperature: 36.6 (C) / 97.9 (F) Weight: 94 lbs Code: 42900-5 Functional Status No Functional Status data Reason [...] Codes Date () NURSE/OUTPATIENT VISIT EST Diagnosis: Essential (primary) hypertension[ICD10: I10] Diagnosis: Fatigue[ICD10: R53.83] Diagnosis: Blood loss anemia[ICD10: D50.0] Ericka PEPPERViS CPT-4: 50844 04/30/2021 ([id number]) NURSE/OUTPATIENT VISIT EST Diagnosis: Urinary tract infection[ICD10: N39.0] Ericka PEPPERER Needl CPT-4: 12463 02/02/2021 ([id number]) OFFICE/OUTPATIENT VISIT EST Diagnosis: Fatigue[ICD10: R53.83] Diagnosis: Blood loss anemia[ICD10: D50.0] Diagnosis: Coronary artery disease[ICD10: I25.10] Diagnosis: Hematuria[ICD10: R31.9] Ericka Milan RelaborateSHANTANU CHANEL Needl CPT-4: 04627 01/25/2021 ([id number]) OFFICE/OUTPATIENT VISIT EST Diagnosis: GERD (gastroesophageal reflux disease)[ICD10: K21.9] Diagnosis: Duodenal ulcer[ICD10: K26.9] Diagnosis: Coronary artery disease[ICD10: I25.10] Diagnosis: Anxiety[ICD10: F41.9] Diagnosis: Blood loss anemia[ICD10: D50.0] Ericka MCCORMICK [facility] CPT-4: 59751 12/30/2020 ([id number]) NURSE/OUTPATIENT VISIT EST Diagnosis: Edema[ICD10: R60.9] Ericka MCCORMICK [facility] CPT-4: 77940 12/21/2020 ([id number]) OFFICE/OUTPATIENT VISIT EST Diagnosis: Coronary artery disease[ICD10: I25.10] Diagnosis: Essential (primary) hypertension[ICD10: I10] Diagnosis: Stress reaction[ICD10: F43.0] Diagnosis: Insomnia[ICD10: G47.00] Diagnosis: Pulmonary nodule[ICD10: R91.1] [facility] 27681 11/10/2020 ([id number]) NO CHARGE Diagnosis: Mass of upper lobe of right lung[ICD10: R91.8] Ericka MCCORMICK [facility] CPT-4: 77588 07/29/2020 ([id number]) OFFICE/OUTPATIENT VISIT EST Diagnosis: Fatigue[ICD10: R53.83] Diagnosis: Lymphadenopathy of head and neck[ICD10: R59.1] Diagnosis: Weight loss, non-intentional[ICD10: R63.4] Diagnosis: History of melanoma[ICD10: Z85.820] Diagnosis: Skin lesion[ICD10: L98.9] Sara Aguila ERICKA NUNEZ [facility] CPT-4: 08821 07/20/2020 ([id number]) OFFICE/OUTPATIENT VISIT EST Diagnosis: Urinary tract infection[ICD10: N39.0] Meena Ferreiradi [facility] CPT-4: 88332 04/30/2020 ([id number]) OFFICE/OUTPATIENT VISIT EST Diagnosis: Dizziness[ICD10: R42] Diagnosis: Depressed mood with feeling of loneliness[ICD10: F32.9] Diagnosis: Insomnia[ICD10: G47.00] Ericka CHANEL Needl CPT-4: 25659 04/09/2020 ([id number]) NURSE/OUTPATIENT VISIT EST Diagnosis: Coronary artery disease[ICD10: I25.10] Diagnosis: Fatigue[ICD10: R53.83] Diagnosis: Essential (primary) hypertension[ICD10: I10] Ericka Anny MCCORMICK Needl CPT-4: 44572 04/07/2020 ([id number]) OFFICE/OUTPATIENT VISIT EST Diagnosis: Fatigue[ICD10: R53.83] Meena Li [facility] CPT-4: 27302 11/22/2019 ([id number]) NURSE/OUTPATIENT VISIT EST Diagnosis: Essential (primary) hypertension[ICD10: I10] Diagnosis: Coronary artery disease[ICD10: I25.10] Diagnosis: Encounter for general adult medical examination with abnormal findings[ICD10: Z00.01] Ericka Anny MCCORMICK Needl CPT-4: 62812 09/30/2019 ([id number]) OFFICE/OUTPATIENT VISIT NEW Diagnosis: Essential (primary) hypertension[ICD10: I10] Diagnosis: Coronary artery disease[ICD10: I25.10] Diagnosis: Aortic valve stenosis with insufficiency[ICD10: I35.2] Ericka Anny MCCORMICK Needl CPT-4: 94172 09/10/2019 Plan of Care Planned Activity Notes Codes Status Date Appointment: Ericka Mccormicktel: [phone] [facility] [place] scheduled by VC CANCELED 03/10/2021 Appointment: Ericka Mccormick WPtel: [phone] [facility] [place] patient unable to leave urine CANCELED Appointment: Ericka Mccormick WPtel: [phone] [facility] [place] CANCELED 02/02/2021 Appointment: Ericka Mccormick WPtel: [address] [place], [place] [phone] UA 02/02/2021 Care Plan: UA W/MICR ADD ON ORDER LOINC : 54878-6 Pending 01/26/2021 Visit Diagnosis Plan: Hematuria Discussion: Culture ur ine ICD-9 : 599.70 ICD-10 : R31.9 01/25/2021 Visit Diagnosis Plan: Blood loss anemia Discussion: Ch real CBC now ICD-9 : 280.0 ICD-10 : D50.0 01/25/2021 Appointment: Ericka Mccormick WPtel: [address] [place], [place] [phone] ACUTE ILLNESS 01/25/2021 Appointment: Sara [facility]ila [facility] [phone] [facility] [place] CANCELED 01/01/2021 Visit Diagnosis Plan: [...] : K21.9 12/30/2020 Appointment: Ericka Mccormick WPtel: [address] [place], [place] [phone] FOLLOW UP 12/30/2020 Appointment: Ericka Mccormick WPtel: [address] [place], [place] [phone] NURSE SERVICES 12/21/2020 Visit Diagnosis Plan: Insomnia [...] : F43.0 11/10/2020 Appointment: Ericka Mccormick WPtel: [phone] [facility] [place] FOLLOW UP 11/10/2020 Patient Education: trazodone- Opt[employer] Coupon [phone] [email or web address]/resources/[email or web address] Completed 11/10/2020 Visit Diagnosis Plan: Mass of upper lobe of right lung Discussion: CT scan of lung results discussed with patient and told this looks like cancer Agrees to see pulmonology to see if will be amenable to bronchoscopy to get cells/washings ICD-9 : 786.6 ICD-10 : R91.8 07/29/2020 Appointment: Ericka Mccormick WPtel: [phone] [facility] [place] WORK IN 07/29/2020 Care Plan: Referral Order SNOMED-CT : [id number] Pending 07/29/2020 Care Plan: CT SFT TSUE NCK W/O & W/DYE L OINC : 97643-2 Pending 07/21/2020 Visit Diagnosis Plan: Fatigue Discussion: [...] 07/20/2020 Appointment: Mingo Sara WPtel: [phone] ACUTE ILLNESS 07/20/2020 Patient Education: Patient [...] ICD-10 : N39.0 04/30/2020 Appointment: Meena Li [address] [place] [address] ACUTE ILLNESS 04/30/2020 Appointment: Meena Li [address] [place] [address] 04/21/2020 1020---patient needed seen fo r appointment [...] : F32.9 04/09/2020 Appointment: Ericka Mccormick WPtel: [phone] FOLLOW UP 04/09/2020 Care Plan: COMPREHEN [place]AB[place] : 221[address]-3 Pending 04/09/2020 Appointment: Ericka Mccormick WPtel: [address] [place], [place] [phone] [place] LAB 04/07/2020 Visit Diagnosis Plan: Fatigue Discussion: no other sym ptoms other than fatigue for 4 weeks so will update labs. order sent to [facility] for blood work and ua with c&s. instructed to call office with new or worsening symptoms. ICD-9 : 780.79 ICD-10 : R53.83 11/22/2019 Appointment: Meena Li [address] [place] [address] TELEMEDICINE 11/22/2019 Appointment: Ericka Mccormick WPtel: [address] [place] [address] US LAB 09/30/2019 Visit Diagnosis Plan: Coronary [...] : I10 09/10/2019 Appointment: Ericka Mccormick WPtel: [address] [place] [address] NEW PATIENT 09/10/2019 Patient Education: carvedilol- Opt[employer] Coupon [phone] [email or web address]/resources/getResource/[email or web address] Completed 09/10/2019 Appointment: Ericka Mccormick WPtel: [address] [place], [place] [address] RESCHEDULED 08/20/2019 Appointment: Ericka Mccormick WPtel: [phone] [id number] [place] CANCELED 07/22/2019 Referral: Vikram Maguire WPtel: [phone] [facility] [address] [id number] [place] Referral Appointment Requested Instructions No Instructions Medical Equipment No Medical Equipment data Health Concerns Section Health Concerns data not found Goals Section Goals data not found Interventions Section Interventions data not found Health Status Evaluations/Outcomes Section Health Status Evaluations/Outcomes data not found Advance Directives No Advance Directive data
--- OUTSIDE RECORDS SUMMARY | 2021-05-18 09:19 | XMS REPORT | CCD ---
Author Author Erica Mccormick D.O. Organization ERICKA MCCORMICK DO [facility] Address [address] [place] [address] Phone Care Team Providers Care Wet Trimmer Name Role Phone PP Unavailable CCM Unavailable Summary Purpose Interface Exchange Insurance Providers Payer name Policy type / Coverage type Covered alliance party ID Effective Begin Date Effective End Date WPS MEDICARE PART B [place] Medicare Part B [id number] Unknown Unknown [employer]UE [place] [place] MEDIC[place] Medicare Part B X [id number] Unknown Unknown Family History Family History data not found Social History Social History Element Codes Description Effective Dates Marital status Unknown 09/10/2019 Number of children Unknown 1 09/10/2019 Employment Unknown Retired 09/10/[address]: 2281711 Former smoker quit 201109/10/[address]: 195232 Currently drinks alcohol 09/09 Frequency of drinks SNOMED CT: 815946439 1-4 drinks per week Allergies, Adverse Reactions, [...] Fill Instructions tramadol 50 mg tablet RxNorm: 913333 1 Tablet(s) Oral t wo times a day as needed for pain 03/15/2021 No Stop Date Active ferrous sulfate 325 mg (65 mg iron) tablet RxNorm: 990248 Take 1 Tablet(s) Oral QD 01/28/2021 No Stop Date Active paroxetine 20 mg tablet RxNorm: 7125270 1 Tablet(s) Oral QD 021 01/20/2021 Inactive pantoprazole 20 mg tablet,delayed release RxNorm: 178756 1 Tablet(s) Oral two times a day 12/22/2020 03/21/2021 Inactive pantoprazole 20 mg tablet,delayed release RxNorm: 091644 1 Tablet(s) Oral two times a day 12/22/2020 12/22/2020 Inactive paroxetine 20 mg tablet RxNorm: 0789171 1 Tablet(s) Oral QD 021 12/15/2020 Inactive paroxetine 20 mg tablet RxNorm: 7644039 1 Tablet(s) Oral QD 021 12/15/2020 Inactive MagOx 400 mg (241.3 mg magnesium) tablet RxNorm: 497943 Take 1 Tablet(s) Oral every night at bedtime with melatonin 11/23/2020 01/24/2021 Inactive melatonin 3 mg tablet RxNorm: 749389 Take 1-2 Tablet(s) Oral every night at bedtime 11/18/2020 No Stop Date Active atorvastatin 40 mg tablet RxNorm: 818571 Take 1 Tablet( s) Oral every night at bedtime 11/10/2020 No Stop Date Active Plavix 75 mg tablet RxNorm: 338998 Take 1 Tablet(s) Oral QD No Stop Date Active trazodone 50 mg tablet RxNorm: 797468 Take 1-2 Tablet(s ) Oral QPM as needed for sleep 11/10/2020 11/22/2020 Inactive alprazolam 0.25 mg tablet RxNorm: 312794 1/2-1 Tablet(s ) Oral QPM as needed for sleep 08/03/2020 09/01/2020 Inactive alprazolam 0.25 mg tablet RxNorm: 903707 1/2-1 Tablet(s ) Oral QPM as needed for sleep 08/03/2020 08/02/2020 Inactive Aspirin Low Dose 81 mg tablet,delayed release RxNorm: 914830 1 Tablet(s) Oral QD 09/10/2019 No Stop Date Active losartan 25 mg tablet RxNorm: 141377 1 Tablet(s) Oral QD 09/10/2019 No Stop Date Active carvedilol 6.25 mg tablet RxNorm: 281537 1 Tablet(s) Oral two t imes a day 09/10/2019 11/09/2020 Inactive Fish Oil 1,000 mg (120 mg-180 mg) capsule RxNorm: 1 Caps ule(s) Oral QD 09/10/2019 11/25/2019 Inactive Medication Administered No Medication Administered data Immunizations No Immunization data Results Observation Observation Code Item Item Code Result Date S [facility] Location COMPLETE BLOOD COUNT [id number] WBC 4.6 10e9/L 04/30/19 22 Unknown COMPLETE BLOOD COUNT [id number] RBC 3.76 10e12/L 2021 Unknown COMPLETE BLOOD COUNT [id number] HEMOGLOBIN 10.9 g/dL 04/30/19 22 Unknown COMPLETE BLOOD COUNT [id number] HEMATOCRIT 35.3 % 04/30/19 22 Unknown COMPLETE BLOOD COUNT [id number] MCV 93.9 fL 2 Unknown COMPLETE BLOOD COUNT [id number] MCH 29.0 pg 2 Unknown COMPLETE BLOOD COUNT [id number] MCHC 30.9 g/dL 2 Unknown COMPLETE BLOOD COUNT [id number] PLATELET COUNT 254 10e9/L 10/2021 Unknown COMPLETE BLOOD COUNT [id number] Mean Plt Volume 9.0 fL 10/2021 Unknown COMPLETE BLOOD COUNT [id number] Neut Auto 73.2 % 2 Unknown COMPLETE BLOOD COUNT [id number] Lymph Auto 14.3 % 04/30/19 22 Unknown COMPLETE BLOOD COUNT [id number] [place] Auto 8.1 % 2 Unknown COMPLETE BLOOD COUNT [id number] RDW 17.8 % 2 Unknown COMPLETE BLOOD COUNT [id number] Eos Auto 3.7 % 2 Unknown COMPLETE BLOOD COUNT [id number] Baso Auto 0.7 % 2 Unknown COMPLETE BLOOD COUNT [id number] Neutrophil Abs 3.37 10e9/L Unknown COMPLETE BLOOD COUNT [id number] Lymphocyte Abs 0.66 10e9/L Unknown COMPLETE BLOOD COUNT [id number] Monocyte Abs 0.37 10e9/L 10/2021 Unknown COMPLETE BLOOD COUNT [id number] Eosinophil Abs 0.17 10e9/L Unknown COMPLETE BLOOD COUNT [id number] RDW-SD 59.5 fL Unknown COMPLETE BLOOD COUNT [id number] Basophil Abs 0.03 10e9/L 10/2021 Unknown UA W/MICR 38131 UA Protein TNP:Specimen Not Received Unknown UA W/MICR 38480 UA Hemoglobin TNP:Specimen Not Received 02/17/2021 Unknown UA W/MICR 71102 UA Glucose TNP:Specimen Not Received Unknown UA W/MICR 87495 UA Ketones TNP:Specimen Not Received Unknown UA W/MICR 47464 UA pH TNP:Specimen Not Received Unknown UA W/MICR 61274 U Spec [place] TNP:Specimen Not Received 02/17/2021 Unknown UA W/MICR 86087 UA Bilirubin TNP:Specimen Not Received 02/17/2021 Unknown UA W/MICR 91022 UA Leuk [place] TNP:Specimen Not Receive d 02/17/2021 Unknown UA W/MICR 73439 UA Nitrite TNP:Specimen Not Received Unknown UA W/MICR 91147 UA WBC/hpf TNP:Specimen Not Received Unknown UA W/MICR 58148 UA RBC hpf TNP:Specimen Not Received Unknown UA W/MICR 33173 UA Protein TNP:Specimen Integrity 01/27 Unknown UA W/MICR 70778 UA Hemoglobin TNP:Specimen Integrity Unknown UA W/MICR 10333 UA Glucose TNP:Specimen Integrity 01/27 Unknown UA W/MICR 79584 UA Ketones TNP:Specimen Integrity 01/27 Unknown UA W/MICR 97921 UA pH TNP:Specimen Integrity 2020 Unknown UA W/MICR 64772 U Spec [place] TNP:Specimen Integrity 1 Unknown UA W/MICR 73495 UA Bilirubin TNP:Specimen Integrity 09/2020 Unknown UA W/MICR 95086 UA Leuk [place] TNP:Specimen Integrity 01/27/2021 Unknown UA W/MICR 28678 UA Nitrite TNP:Specimen Integrity 01/27 Unknown UA W/MICR 54756 UA WBC/hpf TNP:Specimen Integrity 01/27 Unknown UA W/MICR 98974 UA RBC hpf TNP:Specimen Integrity 01/27 Unknown COMPLETE BLOOD COUNT [id number] WBC 6.1 10e9/L 01/26/20 21 Unknown COMPLETE BLOOD COUNT [id number] RBC 3.34 10e12/L 2020 Unknown COMPLETE BLOOD COUNT [id number] HEMOGLOBIN 8.8 g/dL 01/26/20 21 Unknown COMPLETE BLOOD COUNT [id number] HEMATOCRIT 28.5 % 01/26/20 21 Unknown COMPLETE BLOOD COUNT [id number] MCV 85.3 fL 1 Unknown COMPLETE BLOOD COUNT [id number] MCH 26.3 pg 1 Unknown COMPLETE BLOOD COUNT [id number] MCHC 30.9 g/dL 1 Unknown COMPLETE BLOOD COUNT [id number] PLATELET COUNT 268 10e9/L 07/2020 Unknown COMPLETE BLOOD COUNT 5155906 Mean Plt Volume 8.7 fL 07/2020 Unknown COMPLETE BLOOD COUNT 9620009 Neut Auto 67.7 % 1 Unknown COMPLETE BLOOD COUNT [id number] Lymph Auto 19.4 % 01/26/20 21 Unknown COMPLETE BLOOD COUNT [id number] [place] Auto 8.4 % 1 Unknown COMPLETE BLOOD COUNT [id number] RDW 16.7 % 1 Unknown COMPLETE BLOOD COUNT 6136255 Eos Auto 3.8 % 1 Unknown COMPLETE BLOOD COUNT [id number] Baso Auto 0.7 % 1 Unknown COMPLETE BLOOD COUNT [id number] Neutrophil Abs 4.13 10e9/L Unknown COMPLETE BLOOD COUNT [id number] Lymphocyte Abs 1.18 10e9/L Unknown COMPLETE BLOOD COUNT [id number] Monocyte Abs 0.51 10e9/L 07/2020 Unknown COMPLETE BLOOD COUNT [id number] Eosinophil Abs 0.23 10e9/L Unknown COMPLETE BLOOD COUNT [id number] RDW-SD 50.9 fL Unknown COMPLETE BLOOD COUNT [id number] Basophil Abs 0.04 10e9/L 07/2020 Unknown GFR CALC [id number] GFR Non Afr Amr >60 mL/min 01/25/2021 Un known GFR CALC [id number] GFR Afr Amr >60 mL/min 01/25/2021 Unknow n COMPREHENSIVE METABOLIC 69371 AST 17 U/L 2020 Unknown COMPREHENSIVE METABOLIC 18373 ALT 13 U/L 2020 Unknown COMPREHENSIVE METABOLIC 77096 BUN 14 mg/dL 2020 Unknown COMPREHENSIVE METABOLIC 48925 ALBUMIN 4.1 g/dL 2020 Unknown COMPREHENSIVE METABOLIC 84679 CHLORIDE 102 mmol/L 01/25 Unknown COMPREHENSIVE METABOLIC 58071 Bili Total 0.4 mg/dL 01/25 Unknown COMPREHENSIVE METABOLIC 88481 ALK PHOS 85 U/L 2020 Unknown COMPREHENSIVE METABOLIC 87083 SODIUM 134 mmol/L 01/25 Unknown COMPREHENSIVE METABOLIC 09381 CREATININE 0.71 mg/dL 07/2020 Unknown COMPREHENSIVE METABOLIC 02809 CALCIUM 9.3 mg/dL 2020 Unknown COMPREHENSIVE METABOLIC 35059 POTASSIUM 4.3 mmol/L 01/25 Unknown COMPREHENSIVE METABOLIC 11597 Total Protein 7.0 g/dL Unknown COMPREHENSIVE METABOLIC 89123 Glucose 111 mg/dL 2020 Unknown COMPREHENSIVE METABOLIC 15073 Bicarbonate 24 mmol/L 07/2020 Unknown COMPREHENSIVE METABOLIC 65902 AGAP 8 mmol/L 2020 Unknown COMPREHENSIVE METABOLIC 33358 AST 16 U/L 2019 Unknown COMPREHENSIVE METABOLIC 78757 ALT 12 U/L 2019 Unknown COMPREHENSIVE METABOLIC 25713 BUN 13 mg/dL 2019 Unknown COMPREHENSIVE METABOLIC 12291 ALBUMIN 4.1 g/dL 2019 Unknown COMPREHENSIVE METABOLIC 84792 CHLORIDE 96 mmol/L 2019 Unknown COMPREHENSIVE METABOLIC 05150 Bili Total 1.1 mg/dL 04/09 Unknown COMPREHENSIVE METABOLIC 08304 ALK PHOS 80 U/L 2019 Unknown COMPREHENSIVE METABOLIC 93841 SODIUM 131 mmol/L 04/09 Unknown COMPREHENSIVE METABOLIC 68623 CREATININE 0.76 mg/dL 03/24 Unknown COMPREHENSIVE METABOLIC 66016 CALCIUM 9.0 mg/dL 2019 Unknown COMPREHENSIVE METABOLIC 39513 POTASSIUM 4.2 mmol/L 04/09 Unknown COMPREHENSIVE METABOLIC 41643 Total Protein 6.8 g/dL Unknown COMPREHENSIVE METABOLIC 07025 Glucose 101 mg/dL 2019 Unknown COMPREHENSIVE METABOLIC 71787 Bicarbonate 25 mmol/L 03/24 Unknown COMPREHENSIVE METABOLIC 41659 AGAP 10 mmol/L 2019 Unknown GFR CALC 5842997 GFR Non Afr Amr >60 mL/min 04/09/2020 Un known GFR CALC [id number] GFR Afr Amr >60 mL/min 04/09/2020 Unknow n GAMMA GLUTAMYL TRANSFERASE 58816 GGT 19 U/L Unknown COMPLETE BLOOD COUNT [id number] WBC 6.3 10e9/L 04/07/20 20 Unknown COMPLETE BLOOD COUNT [id number] RBC 4.36 10e12/L 2019 Unknown COMPLETE BLOOD COUNT 5910501 HEMOGLOBIN 15.2 g/dL 04/07/20 20 Unknown COMPLETE BLOOD COUNT [id number] HEMATOCRIT 43.8 % 04/07/20 20 Unknown COMPLETE BLOOD COUNT [id number] MCV 100.5 fL 0 Unknown COMPLETE BLOOD COUNT [id number] MCH 34.9 pg 0 Unknown COMPLETE BLOOD COUNT 7523201 MCHC 34.7 g/dL 0 Unknown COMPLETE BLOOD COUNT 9896003 PLATELET COUNT 254 10e9/L Unknown COMPLETE BLOOD COUNT 3878273 Mean Plt Volume 9.9 fL Unknown COMPLETE BLOOD COUNT 1865775 Neut Auto 63.3 % 0 Unknown COMPLETE BLOOD COUNT [id number] Lymph Auto 24.5 % 04/07/20 20 Unknown COMPLETE BLOOD COUNT 0496111 [place] Auto 8.4 % 0 Unknown COMPLETE BLOOD COUNT 2704862 RDW 12.8 % 0 Unknown COMPLETE BLOOD COUNT 7306203 Eos Auto 3.2 % 0 Unknown COMPLETE BLOOD COUNT 7482809 Baso Auto 0.6 % 0 Unknown COMPLETE BLOOD COUNT [id number] Neutrophil Abs 3.99 10e9/L Unknown COMPLETE BLOOD COUNT [id number] Lymphocyte Abs 1.54 10e9/L Unknown COMPLETE BLOOD COUNT [id number] Monocyte Abs 0.53 10e9/L 03/24 Unknown COMPLETE BLOOD COUNT [id number] Eosinophil Abs 0.20 10e9/L Unknown COMPLETE BLOOD COUNT [id number] RDW-SD 47.6 fL 0 Unknown COMPLETE BLOOD COUNT [id number] Basophil Abs 0.04 10e9/L 03/24 Unknown VITAMIN B 12 98507 VITAMIN B12 661 pg/mL 04/07/2020 Unkn own LIPID GROUP 43920 Cholesterol 168 mg/dL 09/30/2019 Unkno wn LIPID GROUP 83746 Triglyceride 141 mg/dL 09/30/2019 Unkn own LIPID GROUP 45788 HDL CHOLESTEROL 66 mg/dL 09/30/2019 U nknown LIPID GROUP 24246 Chol/HDL Ratio 2.55 ratio 09/30/2019 U nknown LIPID GROUP 26271 NON-HDL Chol 102 mg/dL 09/30/2019 Unkn own LIPID GROUP 81941 LDL Cholesterol 74 mg/dL 09/30/2019 U nknown FREE T4 47905 T4 Free 0.76 ng/dL 09/30/2019 Unknown THYROID STIMULATING HORMONE 55036 TSH 2.186 uIU/mL 09/30/2019 Unknown GFR CALC 2911688 GFR Non Afr Amr >60 mL/min 09/30/2019 Un known GFR CALC [id number] GFR Afr Amr >60 mL/min 09/30/2019 Unknow n COMPREHENSIVE METABOLIC 79911 AST 14 U/L 2019 Unknown COMPREHENSIVE METABOLIC 08300 ALT 11 U/L 2019 Unknown COMPREHENSIVE METABOLIC 59602 BUN 15 mg/dL 2019 Unknown COMPREHENSIVE METABOLIC 39937 ALBUMIN 4.0 g/dL 2019 Unknown COMPREHENSIVE METABOLIC 01554 CHLORIDE 96 mmol/L 2019 Unknown COMPREHENSIVE METABOLIC 34766 Bili Total 0.9 mg/dL 09/29 Unknown COMPREHENSIVE METABOLIC 36701 ALK PHOS 72 U/L 2019 Unknown COMPREHENSIVE METABOLIC 58564 SODIUM 132 mmol/L 09/29 Unknown COMPREHENSIVE METABOLIC 74035 CREATININE 0.73 mg/dL 11/2019 Unknown COMPREHENSIVE METABOLIC 11548 CALCIUM 9.1 mg/dL 2019 Unknown COMPREHENSIVE METABOLIC 26513 POTASSIUM 4.6 mmol/L 09/29 Unknown COMPREHENSIVE METABOLIC 50969 Total Protein 6.4 g/dL Unknown COMPREHENSIVE METABOLIC 58177 Glucose 97 mg/dL 2019 Unknown COMPREHENSIVE METABOLIC 34853 Bicarbonate 25 mmol/L 11/2019 Unknown COMPREHENSIVE METABOLIC 36135 AGAP 11 mmol/L 2019 Unknown COMPLETE BLOOD COUNT 2897999 WBC 5.3 10e9/L 09/30/19 20 Unknown COMPLETE BLOOD COUNT [id number] RBC 4.16 10e12/L 2019 Unknown COMPLETE BLOOD COUNT 7694871 HEMOGLOBIN 14.1 g/dL 09/30/19 20 Unknown COMPLETE BLOOD COUNT 5460461 HEMATOCRIT 42.6 % 09/30/19 20 Unknown COMPLETE BLOOD COUNT [id number] MCV 102.4 fL 0 Unknown COMPLETE BLOOD COUNT [id number] MCH 33.9 pg 0 Unknown COMPLETE BLOOD COUNT 2928324 MCHC 33.1 g/dL 0 Unknown COMPLETE BLOOD COUNT 7088909 PLATELET COUNT 273 10e9/L 11/2019 Unknown COMPLETE BLOOD COUNT 6964167 Mean Plt Volume 9.4 fL 11/2019 Unknown COMPLETE BLOOD COUNT 3127365 Neut Auto 57.3 % 0 Unknown COMPLETE BLOOD COUNT 4418747 Lymph Auto 29.3 % 09/30/19 20 Unknown COMPLETE BLOOD COUNT 1123711 [place] Auto 7.6 % 0 Unknown COMPLETE BLOOD COUNT 0937354 RDW 13.8 % 0 Unknown COMPLETE BLOOD COUNT 4269200 Eos Auto 4.5 % 0 Unknown COMPLETE BLOOD COUNT 9017728 Baso Auto 1.3 % 0 Unknown COMPLETE BLOOD COUNT 2391172 Neutrophil Abs 3.04 10e9/L Unknown COMPLETE BLOOD COUNT 9941604 Lymphocyte Abs 1.55 10e9/L Unknown COMPLETE BLOOD COUNT 7737004 Monocyte Abs 0.40 10e9/L 11/2019 Unknown COMPLETE BLOOD COUNT 7014690 Eosinophil Abs 0.24 10e9/L Unknown COMPLETE BLOOD COUNT [id number] RDW-SD 50.7 fL 0 Unknown COMPLETE BLOOD COUNT [id number] Basophil Abs 0.07 10e9/L 11/2019 Unknown Procedures Procedure Codes Date ROUTINE VENIPUNCTURE CPT-4: 30622 04/30/2021 COMPREHEN METABOLIC PANEL CPT-4: 87400 04/30/2021 COMPLETE CBC W/AUTO DIFF WBC CPT-4: 60378 04/30/2021 UA W/MICR CPT-4: 54044 02/15/2021 URINE CULTURE/ COLONY COUNT CPT-4: 48238 02/02/2021 ROUTINE VENIPUNCTURE CPT-4: 52030 01/25/2021 COMPREHEN METABOLIC PANEL CPT-4: 78112 01/25/2021 COMPLETE CBC W/AUTO DIFF WBC CPT-4: 74365 01/25/2021 URINE CULTURE/ COLONY COUNT CPT-4: 27286 01/25/2021 URINALYSIS NONAUTO W/O SCOPE CPT-4: 77061 01/25/2021 ROUTINE VENIPUNCTURE CPT-4: 74133 07/20/2020 COMPREHEN METABOLIC PANEL CPT-4: 48020 07/20/2020 ASSAY OF FREE THYROXINE CPT-4: 30825 07/20/2020 ASSAY THYROID STIM HORMONE CPT-4: 00331 07/20/2020 COMPLETE CBC W/AUTO DIFF WBC CPT-4: 53894 07/20/2020 RBC SED RATE AUTOMATED CPT-4: 37057 07/20/2020 URINALYSIS NONAUTO W/O SCOPE CPT-4: 40565 04/30/2020 URINE CULTURE/ COLONY COUNT CPT-4: 74159 04/30/2020 ROUTINE VENIPUNCTURE CPT-4: 77175 04/07/2020 COMPLETE CBC W/AUTO DIFF WBC CPT-4: 85996 04/07/2020 VITAMIN B-12 CPT-4: 97533 04/07/2020 ASSAY OF GGT CPT-4: 82289 04/07/2020 ROUTINE VENIPUNCTURE CPT-4: 45884 09/30/2019 ASSAY OF FREE THYROXINE CPT-4: 12872 09/30/2019 ASSAY THYROID STIM HORMONE CPT-4: 74379 09/30/2019 COMPREHEN METABOLIC PANEL CPT-4: 79519 09/30/2019 COMPLETE CBC W/AUTO DIFF WBC CPT-4: 70410 09/30/2019 LIPID PANEL CPT-4: 13204 09/30/2019 Vital Signs Date Vital 01/25/2021 Blood Pressure 1: 102/68 Code: 8480-6 Heart Rate 1: 76 bpm Respiratory Rate: 20 bpm SpO2: 100% Temperature: 36.9 (C) / 98.5 (F) We ight: 87 lbs Code: 85258-2 12/30/2020 Blood Pressure 1: 134/80 Code: 8480-6 BMI: 14.1 Code: 47807-2 Heart Rate 1: 72 bpm Height: 5'5" Code: 8302-2 Respiratory Rate: 18 bpm SpO2: 97% Temperature: 36.6 (C) / 97.8 (F) Weight: 85 lbs Code: 79256-2 11/10/2020 Blood Pressure 1: 130/74 Code: 8480-6 Heart Rate 1: 56 bpm Respiratory Rate: 20 bpm SpO2: 98% Temperature: 36.3 (C) / 97.4 (F) We ight: 85 lbs Code: 96760-0 07/29/2020 Blood Pressure 1: 121/65 Code: 8480-6 BMI: 14.3 Code: 36439-7 Heart Rate 1: 58 bpm Height: 5'5" Code: 8302-2 Respiratory Rate: 15 bpm SpO2: 98% Temperature: 36.9 (C) / 98.4 (F) Weight: 86 lbs Code: 52505-4 07/20/2020 Blood Pressure 1: 123/69 Code: 8480-6 Heart Rate 1: 68 bpm Respiratory Rate: 15 bpm SpO2: 99% Temperature: 36.6 (C) / 97.8 (F) We ight: 83 lbs Code: 61455-0 04/30/2020 Blood Pressure 1: 128/82 Code: 8480-6 Heart Rate 1: 68 bpm Respiratory Rate: 20 bpm SpO2: 95% Temperature: 36.5 (C) / 97.7 (F) We ight: 91 lbs Code: 69910-1 04/09/2020 Blood Pressure 1: 130/78 Code: 8480-6 Heart Rate 1: 68 bpm Respiratory Rate: 20 bpm SpO2: 99% Temperature: 36.3 (C) / 97.4 (F) We ight: 90 lbs Code: 28266-3 11/22/2019 Temperature: 36.3 (C) / 97.3 (F) 09/10/2019 Blood Pressure 1: 128/72 Code: 8480-6 BMI: 15.6 Code: 20977-3 Heart Rate 1: 68 bpm Height: 5'5" Code: 8302-2 Respiratory Rate: 20 bpm SpO2: 97% Temperature: 36.6 (C) / 97.9 (F) Weight: 94 lbs Code: 10136-6 Functional Status No Functional Status data Reason [...] urination 04/30/2020 follow up 04/09/2020 Discuss labs---amilcar mclean has been holding iron and vitamin b12. She has started taking nature balance mutivitamins fatigue 11/22/2019 ~generic 09/10/2019 New Patient---julio russo visit Encounters Encounter Performer Location Codes Date (62335) NURSE/OUTPATIENT VISIT EST Diagnosis: Essential (primary) hypertension[ICD10: I10] Diagnosis: Fatigue[ICD10: R53.83] Diagnosis: Blood loss anemia[ICD10: D50.0] Ericka Milan [employer] CPT-4: 35614 04/30/2021 ([id number]) NURSE/OUTPATIENT VISIT EST Diagnosis: Urinary tract infection[ICD10: N39.0] Ericka Milan [facility] CPT-4: 77168 02/02/2021 ([id number]) OFFICE/OUTPATIENT VISIT EST Diagnosis: Fatigue[ICD10: R53.83] Diagnosis: Blood loss anemia[ICD10: D50.0] Diagnosis: Coronary artery disease[ICD10: I25.10] Diagnosis: Hematuria[ICD10: R31.9] Ericka Milan [place] [employer] CPT-4: 89371 01/25/2021 ([id number]) OFFICE/OUTPATIENT VISIT EST Diagnosis: GERD (gastroesophageal reflux disease)[ICD10: K21.9] Diagnosis: Duodenal ulcer[ICD10: K26.9] Diagnosis: Coronary artery disease[ICD10: I25.10] Diagnosis: Anxiety[ICD10: F41.9] Diagnosis: Blood loss anemia[ICD10: D50.0] Ericka MCCORMICK DO [facility] CPT-4: 37655 12/30/2020 ([id number]) NURSE/OUTPATIENT VISIT EST Diagnosis: Edema[ICD10: R60.9] Ericka MCCORMICK DO [facility] CPT-4: 41793 12/21/2020 ([id number]) OFFICE/OUTPATIENT VISIT EST Diagnosis: Coronary artery disease[ICD10: I25.10] Diagnosis: Essential (primary) hypertension[ICD10: I10] Diagnosis: Stress reaction[ICD10: F43.0] Diagnosis: Insomnia[ICD10: G47.00] Diagnosis: Pulmonary nodule[ICD10: R91.1] Ericka MCCORMICK DO [facility] CPT-4: 09543 11/10/2020 ([id number]) NO CHARGE Diagnosis: Mass of upper lobe of right lung[ICD10: R91.8] Ericka MCCORMICK DO [facility] CPT-4: 31965 07/29/2020 ([id number]) OFFICE/OUTPATIENT VISIT EST Diagnosis: Fatigue[ICD10: R53.83] Diagnosis: Lymphadenopathy of head and neck[ICD10: R59.1] Diagnosis: Weight loss, non-intentional[ICD10: R63.4] Diagnosis: History of melanoma[ICD10: Z85.820] Diagnosis: Skin lesion[ICD10: L98.9] Sara Aguila ERICKA NUNEZ [facility] CPT-4: 64715 07/20/2020 ([id number]) OFFICE/OUTPATIENT VISIT EST Diagnosis: Urinary tract infection[ICD10: N39.0] Meena MCCORMICK [facility] CPT-4: 98994 04/30/2020 ([id number]) OFFICE/OUTPATIENT VISIT EST Diagnosis: Dizziness[ICD10: R42] Diagnosis: Depressed mood with feeling of loneliness[ICD10: F32.9] Diagnosis: Insomnia[ICD10: G47.00] Ericka CHANEL [facility] CPT-4: 52606 04/09/2020 ([id number]) NURSE/OUTPATIENT VISIT EST Diagnosis: Coronary artery disease[ICD10: I25.10] Diagnosis: Fatigue[ICD10: R53.83] Diagnosis: Essential (primary) hypertension[ICD10: I10] Ericka Sanchezpromise WEEMSERICKA Kayli MCCORMICK DO [facility] CPT-4: 46716 04/07/2020 ([id number]) OFFICE/OUTPATIENT VISIT EST Diagnosis: Fatigue[ICD10: R53.83] Meena Li [facility] CPT-4: 77910 11/22/2019 ([id number]) NURSE/OUTPATIENT VISIT EST Diagnosis: Essential (primary) hypertension[ICD10: I10] Diagnosis: Coronary artery disease[ICD10: I25.10] Diagnosis: Encounter for general adult medical examination with abnormal findings[ICD10: Z00.01] Ericka Mccormick ERICKA Kayli MCCORMICK DO [facility] CPT-4: 28293 09/30/2019 ([id number]) OFFICE/OUTPATIENT VISIT NEW Diagnosis: Essential (primary) hypertension[ICD10: I10] Diagnosis: Coronary artery disease[ICD10: I25.10] Diagnosis: Aortic valve stenosis with insufficiency[ICD10: I35.2] Ericka Mccormick ERICKA KatherineNilda CHELY [employer] CPT-4: 67570 09/10/2019 Plan of Care Planned Activity Notes Codes Status Date Appointment: Ericka Mccormick WPtel: [address] [place] [address] [place] scheduled by VC CANCELED 03/10/2021 Appointment: Ericka Mccormick WPtel: [address] [place], [place] [phone] [place] patient unable to leave urine CANCELED Appointment: Ericka Mccormick WPtel: [address] [place], [place] [phone] [place] CANCELED 02/02/2021 Appointment: Ericka Mccormick WPtel: [address] [place], [place] [phone] [place] UA 02/02/2021 Care Plan: UA W/MICR ADD ON ORDER LOINC : 23742-6 Pending 01/26/2021 Visit Diagnosis Plan: Hematuria Discussion: Culture ur ine ICD-9 : 599.70 ICD-10 : R31.9 01/25/2021 Visit Diagnosis Plan: Blood loss anemia Discussion: Ch real CBC now ICD-9 : 280.0 ICD-10 : D50.0 01/25/2021 Appointment: [facility] [phone] [facility] [facility] 01/25/2021 Appointment: [facility] [phone] [facility] [place] CANC[facility]ED 01/01/2021 Visit Diagnosis Plan: [...] K21.9 12/30/2020 Appointment: Ericka Mccormick WPtel: [address] [place], [place] [phone] FOLLOW UP 12/30/2020 Appointment: Ericka Mccormick WPtel: [address] [place], [place] [id number] NURSE SERVICES 12/21/2020 Visit Diagnosis Plan: Insomnia Discussion: Trial of saskia lowe--call in 1 week on how doing ICD-9 [...] F43.0 11/10/2020 Appointment: Eric[facility]ccormick [facility] [phone] [facility] [place] FOLLOW UP 11/10/2020 Patient Education: [email or web address]- [email or web address] Coupon [phone] [email or web address] Completed 11/10/2020 Visit Diagnosis Plan: Mass of upper lobe of right lung Discussion: CT scan of lung results discussed with patient and told this looks like cancer Agrees to see pulmonology to see if will be amenable to bronchoscopy to get cells/washings ICD-9 : 786.6 ICD-10 : R91.8 07/29/2020 Appointment: Ericka [facility]ccormick [facility]el[facility] [phone] [facility] [place] WORK IN 07/29/2020 Care Plan: Referral Order SNOMED-CT : [id number] Pending 07/29/2020 Care Plan: CT SFT TSUE NCK W/O & W/DYE L OINC : 88606-9 Pending 07/21/2020 Visit Diagnosis Plan: Fatigue Discussion: [...] 07/20/2020 Appointment: Sara Aguila WPtel: [phone] [facility] ACUTE ILLNESS 07/20/2020 Patient Education: Patient [...] ICD-10 : N39.0 04/30/2020 Appointment: Meena Li [address] [place] [address] ACUTE ILLNESS 04/30/2020 Appointment: Meena Li [address] [place] [address] 04/21/2020 1020---patient needed seen fo r appointment [...] : F32.9 04/09/2020 Appointment: Ericka Mccormick WPtel: [phone] [facility] [place] FOLLOW UP 04/09/2020 Care Plan: COMPREH[place]AB[place]IC [place] : [id number] Pending 04/09/2020 Appointment: Ericka Mccormick WPtel: [phone] [facility] US LAB 04/07/2020 Visit Diagnosis Plan: Fatigue Discussion: no other sym ptoms other than fatigue for 4 weeks so will update labs. order sent to [facility] for blood work and ua with c&s. instructed to call office with new or worsening symptoms. ICD-9 : 780.79 ICD-10 : R53.83 11/22/2019 Appointment: Meena Li [address] [place] [address] TELEMEDICINE 11/22/2019 Appointment: Ericka Mccormick WPtel: [address] [place] [address] US LAB 09/30/2019 Visit Diagnosis Plan: Coronary [...] : I10 09/10/2019 Appointment: Ericka Mccormick WPtel: [address] [place] [address] US NEW PATIENT 09/10/2019 Patient Education: carvedilol- [employer] [id number] [email or web address] Completed 09/10/2019 Appointment: Ericka Mccormick WPtel: [address] [place] [address] US RESCHEDULED 08/20/2019 Appointment: Ericka Mccormick WPtel: [address] [place] [address] US CANCELED 07/22/2019 Referral: Vikram Maguire WPtel: [facility] [facility] 201 [id number] US Referral Appointment Requested Instructions No Instructions Medical Equipment No Medical Equipment data Health Concerns Section Health Concerns data not found Goals Section Goals data not found Interventions Section Interventions data not found Health Status Evaluations/Outcomes Section Health Status Evaluations/Outcomes data not found Advance Directives No Advance Directive data
--- OUTSIDE RECORDS SUMMARY | 2021-05-18 09:19 | XMS REPORT | CCD ---
Author Author Erica Mccormick D.O. Organization ERICKA MCCORMICK DO [facility] Address [address] [place] [address] Phone Care Team Providers Care Slot Tag Inserter Name Role Phone PP Unavailable CCM Unavailable Summary Purpose Interface Exchange Insurance Providers Payer name Policy type / Coverage type Covered green party ID Effective Begin Date Effective End Date WPS MEDICARE PART B [place] Medicare Part B [id number] Unknown Unknown [employer] [place] MEDIC[place] Medicare Part B X [id number] Unknown Unknown Family History Family History data not found Social History Social History Element Codes Description Effective Dates Marital status Unknown 09/10/2019 Number of children Unknown 1 09/10/2019 Employment Unknown Retired 09/10/[address]: 2220328 Former smoker quit 201109/10/[address]: 546330 Currently drinks alcohol 09/09 Frequency of drinks SNOMED CT: 062714494 1-4 drinks per week Allergies, Adverse Reactions, [...] Fill Instructions tramadol 50 mg tablet RxNorm: 217387 1 Tablet(s) Oral t wo times a day as needed for pain 03/15/2021 No Stop Date Active ferrous sulfate 325 mg (65 mg iron) tablet RxNorm: 031499 Take 1 Tablet(s) Oral QD 01/28/2021 No Stop Date Active paroxetine 20 mg tablet RxNorm: 7773658 1 Tablet(s) Oral QD 021 01/20/2021 Inactive pantoprazole 20 mg tablet,delayed release RxNorm: 196337 1 Tablet(s) Oral two times a day 12/22/2020 03/21/2021 Inactive pantoprazole 20 mg tablet,delayed release RxNorm: 889230 1 Tablet(s) Oral two times a day 12/22/2020 12/22/2020 Inactive paroxetine 20 mg tablet RxNorm: 0080993 1 Tablet(s) Oral QD 021 12/15/2020 Inactive paroxetine 20 mg tablet RxNorm: 6602678 1 Tablet(s) Oral QD 021 12/15/2020 Inactive MagOx 400 mg (241.3 mg magnesium) tablet RxNorm: 126556 Take 1 Tablet(s) Oral every night at bedtime with melatonin 11/23/2020 01/24/2021 Inactive melatonin 3 mg tablet RxNorm: 403355 Take 1-2 Tablet(s) Oral every night at bedtime 11/18/2020 No Stop Date Active atorvastatin 40 mg tablet RxNorm: 064650 Take 1 Tablet( s) Oral every night at bedtime 11/10/2020 No Stop Date Active Plavix 75 mg tablet RxNorm: 165881 Take 1 Tablet(s) Oral QD No Stop Date Active trazodone 50 mg tablet RxNorm: 562695 Take 1-2 Tablet(s ) Oral QPM as needed for sleep 11/10/2020 11/22/2020 Inactive alprazolam 0.25 mg tablet RxNorm: 451145 1/2-1 Tablet(s ) Oral QPM as needed for sleep 08/03/2020 09/01/2020 Inactive alprazolam 0.25 mg tablet RxNorm: 968548 1/2-1 Tablet(s ) Oral QPM as needed for sleep 08/03/2020 08/02/2020 Inactive Aspirin Low Dose 81 mg tablet,delayed release RxNorm: 702873 1 Tablet(s) Oral QD 09/10/2019 No Stop Date Active losartan 25 mg tablet RxNorm: 524116 1 Tablet(s) Oral QD 09/10/2019 No Stop Date Active carvedilol 6.25 mg tablet RxNorm: 718509 1 Tablet(s) Oral two t imes a day 09/10/2019 11/09/2020 Inactive Fish Oil 1,000 mg (120 mg-180 mg) capsule RxNorm: 1 Caps ule(s) Oral QD 09/10/2019 11/25/2019 Inactive Medication Administered No Medication Administered data Immunizations No Immunization data Results Observation Observation Code Item Item Code Result Date S ervice Location GFR CALC 7981004 GFR Non Afr Amr >60 mL/min 04/30/2021 Un known GFR CALC 9481033 GFR Afr Amr >60 mL/min 04/30/2021 Unknow n COMPREHENSIVE METABOLIC 97747 AST 13 U/L 2021 Unknown COMPREHENSIVE METABOLIC 12593 ALT 12 U/L 2021 Unknown COMPREHENSIVE METABOLIC 91784 BUN 15 mg/dL 2021 Unknown COMPREHENSIVE METABOLIC 58891 ALBUMIN 4.0 g/dL 2021 Unknown COMPREHENSIVE METABOLIC 44968 CHLORIDE 103 mmol/L 04/30 Unknown COMPREHENSIVE METABOLIC 20559 Bili Total 0.4 mg/dL 04/30 Unknown COMPREHENSIVE METABOLIC 77106 ALK PHOS 75 U/L 2021 Unknown COMPREHENSIVE METABOLIC 69960 SODIUM 136 mmol/L 04/30 Unknown COMPREHENSIVE METABOLIC 18333 CREATININE 0.69 mg/dL 10/2021 Unknown COMPREHENSIVE METABOLIC 49785 CALCIUM 8.9 mg/dL 2021 Unknown COMPREHENSIVE METABOLIC 79788 POTASSIUM 4.3 mmol/L 04/30 Unknown COMPREHENSIVE METABOLIC 07034 Total Protein 6.7 g/dL Unknown COMPREHENSIVE METABOLIC 81432 Glucose 94 mg/dL 2021 Unknown COMPREHENSIVE METABOLIC 05998 Bicarbonate 25 mmol/L 10/2021 Unknown COMPREHENSIVE METABOLIC 42073 AGAP 8 mmol/L 2021 Unknown COMPLETE BLOOD COUNT [id number] WBC 4.6 10e9/L 04/30/19 22 Unknown COMPLETE BLOOD COUNT [id number] RBC 3.76 10e12/L 2021 Unknown COMPLETE BLOOD COUNT [id number] HEMOGLOBIN 10.9 g/dL 04/30/19 22 Unknown COMPLETE BLOOD COUNT [id number] HEMATOCRIT 35.3 % 04/30/19 22 Unknown COMPLETE BLOOD COUNT [id number] MCV 93.9 fL 2 Unknown COMPLETE BLOOD COUNT [id number] MCH 29.0 pg 2 Unknown COMPLETE BLOOD COUNT [id number] MCHC 30.9 g/dL 2 Unknown COMPLETE BLOOD COUNT 1402817 PLATELET COUNT 254 10e9/L 10/2021 Unknown COMPLETE BLOOD COUNT 2482255 Mean Plt Volume 9.0 fL 10/2021 Unknown COMPLETE BLOOD COUNT [id number] Neut Auto 73.2 % 2 Unknown COMPLETE BLOOD COUNT [id number] Lymph Auto 14.3 % 04/30/19 22 Unknown COMPLETE BLOOD COUNT [id number] Carson Auto 8.1 % 2 Unknown COMPLETE BLOOD COUNT [id number] Eos Auto 3.7 % 2 Unknown COMPLETE BLOOD COUNT [id number] RDW 17.8 % 2 Unknown COMPLETE BLOOD COUNT [id number] Baso Auto 0.7 % 2 Unknown COMPLETE BLOOD COUNT [id number] Neutrophil Abs 3.37 10e9/L Unknown COMPLETE BLOOD COUNT [id number] Lymphocyte Abs 0.66 10e9/L Unknown COMPLETE BLOOD COUNT [id number] Monocyte Abs 0.37 10e9/L 10/2021 Unknown COMPLETE BLOOD COUNT [id number] Eosinophil Abs 0.17 10e9/L Unknown COMPLETE BLOOD COUNT [id number] Basophil Abs 0.03 10e9/L 10/2021 Unknown COMPLETE BLOOD COUNT [id number] RDW-SD 59.5 fL 2 Unknown UA W/MICR 90741 UA Protein TNP:Specimen Not Received Unknown UA W/MICR 13938 UA Hemoglobin TNP:Specimen Not Received 02/17/2021 Unknown UA W/MICR 67217 UA Glucose TNP:Specimen Not Received Unknown UA W/MICR 41661 UA Ketones TNP:Specimen Not Received Unknown UA W/MICR 28962 UA pH TNP:Specimen Not Received Unknown UA W/MICR 75185 U Spec [place] TNP:Specimen Not Received 02/17/2021 Unknown UA W/MICR 08795 UA Bilirubin TNP:Specimen Not Received 02/17/2021 Unknown UA W/MICR 98162 UA Leuk [place] TNP:Specimen Not Receive d 02/17/2021 Unknown UA W/MICR 42169 UA Nitrite TNP:Specimen Not Received Unknown UA W/MICR 95689 UA WBC/hpf TNP:Specimen Not Received Unknown UA W/MICR 26334 UA RBC hpf TNP:Specimen Not Received Unknown UA W/MICR 49910 UA Protein TNP:Specimen Integrity 01/27 Unknown UA W/MICR 41542 UA Hemoglobin TNP:Specimen Integrity Unknown UA W/MICR 31804 UA Glucose TNP:Specimen Integrity 01/27 Unknown UA W/MICR 21388 UA Ketones TNP:Specimen Integrity 01/27 Unknown UA W/MICR 59615 UA pH TNP:Specimen Integrity 2020 Unknown UA W/MICR 72919 U Spec [place] TNP:Specimen Integrity 1 Unknown UA W/MICR 43760 UA Bilirubin TNP:Specimen Integrity 09/2020 Unknown UA W/MICR 09280 UA Leuk [place] TNP:Specimen Integrity 01/27/2021 Unknown UA W/MICR 93270 UA Nitrite TNP:Specimen Integrity 01/27 Unknown UA W/MICR 53416 UA WBC/hpf TNP:Specimen Integrity 01/27 Unknown UA W/MICR 17952 UA RBC hpf TNP:Specimen Integrity 01/27 Unknown COMPLETE BLOOD COUNT [id number] WBC 6.1 10e9/L 01/26/20 21 Unknown COMPLETE BLOOD COUNT [id number] RBC 3.34 10e12/L 2020 Unknown COMPLETE BLOOD COUNT [id number] HEMOGLOBIN 8.8 g/dL 01/26/20 21 Unknown COMPLETE BLOOD COUNT [id number] HEMATOCRIT 28.5 % 01/26/20 21 Unknown COMPLETE BLOOD COUNT [id number] MCV 85.3 fL 1 Unknown COMPLETE BLOOD COUNT [id number] MCH 26.3 pg 1 Unknown COMPLETE BLOOD COUNT 0305199 MCHC 30.9 g/dL 1 Unknown COMPLETE BLOOD COUNT [id number] PLATELET COUNT 268 10e9/L 07/2020 Unknown COMPLETE BLOOD COUNT [id number] Mean Plt Volume 8.7 fL 07/2020 Unknown COMPLETE BLOOD COUNT 7330755 Neut Auto 67.7 % 1 Unknown COMPLETE BLOOD COUNT 0896140 Lymph Auto 19.4 % 01/26/20 21 Unknown COMPLETE BLOOD COUNT [id number] Carson Auto 8.4 % 1 Unknown COMPLETE BLOOD COUNT 7660826 RDW 16.7 % 1 Unknown COMPLETE BLOOD COUNT 8392175 Eos Auto 3.8 % 1 Unknown COMPLETE BLOOD COUNT [id number] Baso Auto 0.7 % 1 Unknown COMPLETE BLOOD COUNT [id number] Neutrophil Abs 4.13 10e9/L Unknown COMPLETE BLOOD COUNT [id number] Lymphocyte Abs 1.18 10e9/L Unknown COMPLETE BLOOD COUNT [id number] Monocyte Abs 0.51 10e9/L 07/2020 Unknown COMPLETE BLOOD COUNT 1116572 Eosinophil Abs 0.23 10e9/L Unknown COMPLETE BLOOD COUNT [id number] RDW-SD 50.9 fL 1 Unknown COMPLETE BLOOD COUNT [id number] Basophil Abs 0.04 10e9/L 07/2020 Unknown GFR CALC 1114669 GFR Non Afr Amr >60 mL/min 01/25/2021 Un known GFR CALC 4732416 GFR Afr Amr >60 mL/min 01/25/2021 Unknow n COMPREHENSIVE METABOLIC 14091 AST 17 U/L 2020 Unknown COMPREHENSIVE METABOLIC 39005 ALT 13 U/L 2020 Unknown COMPREHENSIVE METABOLIC 69533 BUN 14 mg/dL 2020 Unknown COMPREHENSIVE METABOLIC 09051 ALBUMIN 4.1 g/dL 2020 Unknown COMPREHENSIVE METABOLIC 72352 CHLORIDE 102 mmol/L 01/25 Unknown COMPREHENSIVE METABOLIC 42734 Bili Total 0.4 mg/dL 01/25 Unknown COMPREHENSIVE METABOLIC 36371 ALK PHOS 85 U/L 2020 Unknown COMPREHENSIVE METABOLIC 58476 SODIUM 134 mmol/L 01/25 Unknown COMPREHENSIVE METABOLIC 98099 CREATININE 0.71 mg/dL 07/2020 Unknown COMPREHENSIVE METABOLIC 77655 CALCIUM 9.3 mg/dL 2020 Unknown COMPREHENSIVE METABOLIC 47075 POTASSIUM 4.3 mmol/L 01/25 Unknown COMPREHENSIVE METABOLIC 72697 Total Protein 7.0 g/dL Unknown COMPREHENSIVE METABOLIC 31440 Glucose 111 mg/dL 2020 Unknown COMPREHENSIVE METABOLIC 76088 Bicarbonate 24 mmol/L 07/2020 Unknown COMPREHENSIVE METABOLIC 00078 AGAP 8 mmol/L 2020 Unknown COMPREHENSIVE METABOLIC 77035 AST 16 U/L 2019 Unknown COMPREHENSIVE METABOLIC 90310 ALT 12 U/L 2019 Unknown COMPREHENSIVE METABOLIC 32585 BUN 13 mg/dL 2019 Unknown COMPREHENSIVE METABOLIC 67446 ALBUMIN 4.1 g/dL 2019 Unknown COMPREHENSIVE METABOLIC 32799 CHLORIDE 96 mmol/L 2019 Unknown COMPREHENSIVE METABOLIC 27314 Bili Total 1.1 mg/dL 04/09 Unknown COMPREHENSIVE METABOLIC 91965 ALK PHOS 80 U/L 2019 Unknown COMPREHENSIVE METABOLIC 24028 SODIUM 131 mmol/L 04/09 Unknown COMPREHENSIVE METABOLIC 75993 CREATININE 0.76 mg/dL 03/24 Unknown COMPREHENSIVE METABOLIC 75563 CALCIUM 9.0 mg/dL 2019 Unknown COMPREHENSIVE METABOLIC 76647 POTASSIUM 4.2 mmol/L 04/09 Unknown COMPREHENSIVE METABOLIC 80284 Total Protein 6.8 g/dL Unknown COMPREHENSIVE METABOLIC 74700 Glucose 101 mg/dL 2019 Unknown COMPREHENSIVE METABOLIC 10123 Bicarbonate 25 mmol/L 03/24 Unknown COMPREHENSIVE METABOLIC 27507 AGAP 10 mmol/L 2019 Unknown GFR CALC 0686620 GFR Non Afr Amr >60 mL/min 04/09/2020 Un known GFR CALC 7425299 GFR Afr Amr >60 mL/min 04/09/2020 Unknow n GAMMA GLUTAMYL TRANSFERASE 83268 GGT 19 U/L Unknown COMPLETE BLOOD COUNT [id number] WBC 6.3 10e9/L 04/07/20 20 Unknown COMPLETE BLOOD COUNT [id number] RBC 4.36 10e12/L 2019 Unknown COMPLETE BLOOD COUNT 8703468 HEMOGLOBIN 15.2 g/dL 04/07/20 20 Unknown COMPLETE BLOOD COUNT [id number] HEMATOCRIT 43.8 % 04/07/20 20 Unknown COMPLETE BLOOD COUNT 4831783 MCV 100.5 fL 0 Unknown COMPLETE BLOOD COUNT 8509312 MCH 34.9 pg 0 Unknown COMPLETE BLOOD COUNT 9165235 MCHC 34.7 g/dL 0 Unknown COMPLETE BLOOD COUNT 9055771 PLATELET COUNT 254 10e9/L Unknown COMPLETE BLOOD COUNT 4673529 Mean Plt Volume 9.9 fL Unknown COMPLETE BLOOD COUNT 2653696 Neut Auto 63.3 % 0 Unknown COMPLETE BLOOD COUNT [id number] Lymph Auto 24.5 % 04/07/20 20 Unknown COMPLETE BLOOD COUNT [id number] [place] Auto 8.4 % 0 Unknown COMPLETE BLOOD COUNT 8280853 Eos Auto 3.2 % 0 Unknown COMPLETE BLOOD COUNT 3757619 RDW 12.8 % 0 Unknown COMPLETE BLOOD COUNT 7390624 Baso Auto 0.6 % 0 Unknown COMPLETE BLOOD COUNT 4839637 Neutrophil Abs 3.99 10e9/L Unknown COMPLETE BLOOD COUNT 5458266 Lymphocyte Abs 1.54 10e9/L Unknown COMPLETE BLOOD COUNT [id number] Monocyte Abs 0.53 10e9/L 03/24 Unknown COMPLETE BLOOD COUNT [id number] Eosinophil Abs 0.20 10e9/L Unknown COMPLETE BLOOD COUNT [id number] RDW-SD 47.6 fL 0 Unknown COMPLETE BLOOD COUNT [id number] Basophil Abs 0.04 10e9/L 03/24 Unknown VITAMIN B 12 09383 VITAMIN B12 661 pg/mL 04/07/2020 Unkn own LIPID GROUP 31066 Cholesterol 168 mg/dL 09/30/2019 Unkno wn LIPID GROUP 10334 Triglyceride 141 mg/dL 09/30/2019 Unkn own [facility] 18542 HDL CHOLESTEROL 66 mg/dL 09/30/2019 U nknown LIPID GROUP 25994 Chol/HDL Ratio 2.55 ratio 09/30/2019 U nknown LIPID GROUP 42113 NON-HDL Chol 102 mg/dL 09/30/2019 Unkn own LIPID GROUP 12447 LDL Cholesterol 74 mg/dL 09/30/2019 U nknown FREE T4 54056 T4 Free 0.76 ng/dL 09/30/2019 Unknown THYROID STIMULATING HORMONE 86976 TSH 2.186 uIU/mL 09/30/2019 Unknown GFR CALC 2142258 GFR Non Afr Amr >60 mL/min 09/30/2019 Un known GFR CALC 3050230 GFR Afr Amr >60 mL/min 09/30/2019 Unknow n COMPREHENSIVE METABOLIC 82580 AST 14 U/L 2019 Unknown COMPREHENSIVE METABOLIC 62333 ALT 11 U/L 2019 Unknown COMPREHENSIVE METABOLIC 08689 BUN 15 mg/dL 2019 Unknown COMPREHENSIVE METABOLIC 23938 ALBUMIN 4.0 g/dL 2019 Unknown COMPREHENSIVE METABOLIC 25078 CHLORIDE 96 mmol/L 2019 Unknown COMPREHENSIVE METABOLIC 13598 Bili Total 0.9 mg/dL 09/29 Unknown COMPREHENSIVE METABOLIC 11603 ALK PHOS 72 U/L 2019 Unknown COMPREHENSIVE METABOLIC 07838 SODIUM 132 mmol/L 09/29 Unknown COMPREHENSIVE METABOLIC 22368 CREATININE 0.73 mg/dL 11/2019 Unknown COMPREHENSIVE METABOLIC 42356 CALCIUM 9.1 mg/dL 2019 Unknown COMPREHENSIVE METABOLIC 97347 POTASSIUM 4.6 mmol/L 09/29 Unknown COMPREHENSIVE METABOLIC 47596 Total Protein 6.4 g/dL Unknown COMPREHENSIVE METABOLIC 54613 Glucose 97 mg/dL 2019 Unknown COMPREHENSIVE METABOLIC 31145 Bicarbonate 25 mmol/L 11/2019 Unknown COMPREHENSIVE METABOLIC 87482 AGAP 11 mmol/L 2019 Unknown COMPLETE BLOOD COUNT 7880868 WBC 5.3 10e9/L 09/30/19 20 Unknown COMPLETE BLOOD COUNT 8321415 RBC 4.16 10e12/L 2019 Unknown COMPLETE BLOOD COUNT 2283906 HEMOGLOBIN 14.1 g/dL 09/30/19 20 Unknown COMPLETE BLOOD COUNT 8565596 HEMATOCRIT 42.6 % 09/30/19 20 Unknown COMPLETE BLOOD COUNT 1222840 MCV 102.4 fL 0 Unknown COMPLETE BLOOD COUNT [id number] MCH 33.9 pg 0 Unknown COMPLETE BLOOD COUNT 3199265 MCHC 33.1 g/dL 0 Unknown COMPLETE BLOOD COUNT 6294628 PLATELET COUNT 273 10e9/L 11/2019 Unknown COMPLETE BLOOD COUNT 4754502 Mean Plt Volume 9.4 fL 11/2019 Unknown COMPLETE BLOOD COUNT 3751975 Neut Auto 57.3 % 0 Unknown COMPLETE BLOOD COUNT 8523474 Lymph Auto 29.3 % 09/30/19 20 Unknown COMPLETE BLOOD COUNT [id number] [place] Auto 7.6 % 0 Unknown COMPLETE BLOOD COUNT [id number] RDW 13.8 % 0 Unknown COMPLETE BLOOD COUNT 1361135 Eos Auto 4.5 % 0 Unknown COMPLETE BLOOD COUNT 4368232 Baso Auto 1.3 % 0 Unknown COMPLETE BLOOD COUNT [id number] Neutrophil Abs 3.04 10e9/L Unknown COMPLETE BLOOD COUNT [id number] Lymphocyte Abs 1.55 10e9/L Unknown COMPLETE BLOOD COUNT 4686998 Monocyte Abs 0.40 10e9/L 11/2019 Unknown COMPLETE BLOOD COUNT 1696026 Eosinophil Abs 0.24 10e9/L Unknown COMPLETE BLOOD COUNT [id number] Basophil Abs 0.07 10e9/L 11/2019 Unknown COMPLETE BLOOD COUNT 8722570 RDW-SD 50.7 fL 0 Unknown Procedures Procedure Codes Date ROUTINE VENIPUNCTURE CPT-4: 65966 04/30/2021 COMPREHEN METABOLIC PANEL CPT-4: 86190 04/30/2021 COMPLETE CBC W/AUTO DIFF WBC CPT-4: 24983 04/30/2021 UA W/MICR CPT-4: 80002 02/15/2021 URINE CULTURE/ COLONY COUNT CPT-4: 52722 02/02/2021 ROUTINE VENIPUNCTURE CPT-4: 98044 01/25/2021 COMPREHEN METABOLIC PANEL CPT-4: 69615 01/25/2021 COMPLETE CBC W/AUTO DIFF WBC CPT-4: 13909 01/25/2021 URINE CULTURE/ COLONY COUNT CPT-4: 46699 01/25/2021 URINALYSIS NONAUTO W/O SCOPE CPT-4: 84240 01/25/2021 ROUTINE VENIPUNCTURE CPT-4: 09250 07/20/2020 COMPREHEN METABOLIC PANEL CPT-4: 34551 07/20/2020 ASSAY OF FREE THYROXINE CPT-4: 24499 07/20/2020 ASSAY THYROID STIM HORMONE CPT-4: 36167 07/20/2020 COMPLETE CBC W/AUTO DIFF WBC CPT-4: 43682 07/20/2020 RBC SED RATE AUTOMATED CPT-4: 87434 07/20/2020 URINALYSIS NONAUTO W/O SCOPE CPT-4: 04595 04/30/2020 URINE CULTURE/ COLONY COUNT CPT-4: 04175 04/30/2020 ROUTINE VENIPUNCTURE CPT-4: 82478 04/07/2020 COMPLETE CBC W/AUTO DIFF WBC CPT-4: 92182 04/07/2020 VITAMIN B-12 CPT-4: 29389 04/07/2020 ASSAY OF GGT CPT-4: 22916 04/07/2020 ROUTINE VENIPUNCTURE CPT-4: 91774 09/30/2019 ASSAY OF FREE THYROXINE CPT-4: 66897 09/30/2019 ASSAY THYROID STIM HORMONE CPT-4: 03112 09/30/2019 COMPREHEN METABOLIC PANEL CPT-4: 04929 09/30/2019 COMPLETE CBC W/AUTO DIFF WBC CPT-4: 78065 09/30/2019 LIPID PANEL CPT-4: 82077 09/30/2019 Vital Signs Date Vital 01/25/2021 Blood Pressure 1: 102/68 Code: 8480-6 Heart Rate 1: 76 bpm Respiratory Rate: 20 bpm SpO2: 100% Temperature: 36.9 (C) / 98.5 (F) We ight: 87 lbs Code: 45774-2 12/30/2020 Blood Pressure 1: 134/80 Code: 8480-6 BMI: 14.1 Code: 06153-2 Heart Rate 1: 72 bpm Height: 5'5" Code: 8302-2 Respiratory Rate: 18 bpm SpO2: 97% Temperature: 36.6 (C) / 97.8 (F) Weight: 85 lbs Code: 92567-7 11/10/2020 Blood Pressure 1: 130/74 Code: 8480-6 Heart Rate 1: 56 bpm Respiratory Rate: 20 bpm SpO2: 98% Temperature: 36.3 (C) / 97.4 (F) We ight: 85 lbs Code: 03526-2 07/29/2020 Blood Pressure 1: 121/65 Code: 8480-6 BMI: 14.3 Code: 00291-6 Heart Rate 1: 58 bpm Height: 5'5" Code: 8302-2 Respiratory Rate: 15 bpm SpO2: 98% Temperature: 36.9 (C) / 98.4 (F) Weight: 86 lbs Code: 27258-9 07/20/2020 Blood Pressure 1: 123/69 Code: 8480-6 Heart Rate 1: 68 bpm Respiratory Rate: 15 bpm SpO2: 99% Temperature: 36.6 (C) / 97.8 (F) We ight: 83 lbs Code: 14767-9 04/30/2020 Blood Pressure 1: 128/82 Code: 8480-6 Heart Rate 1: 68 bpm Respiratory Rate: 20 bpm SpO2: 95% Temperature: 36.5 (C) / 97.7 (F) We ight: 91 lbs Code: 59758-0 04/09/2020 Blood Pressure 1: 130/78 Code: 8480-6 Heart Rate 1: 68 bpm Respiratory Rate: 20 bpm SpO2: 99% Temperature: 36.3 (C) / 97.4 (F) We ight: 90 lbs Code: 55214-7 11/22/2019 Temperature: 36.3 (C) / 97.3 (F) 09/10/2019 Blood Pressure 1: 128/72 Code: 8480-6 BMI: 15.6 Code: 03136-8 Heart Rate 1: 68 bpm Height: 5'5" Code: 8302-2 Respiratory Rate: 20 bpm SpO2: 97% Temperature: 36.6 (C) / 97.9 (F) Weight: 94 lbs Code: 94006-3 Functional Status No Functional Status data Reason [...] visit Encounters Encounter Performer Location Codes Date ([id number]) NURSE/OUTPATIENT VISIT EST Diagnosis: Essential (primary) hypertension[ICD10: I10] Diagnosis: Fatigue[ICD10: R53.83] Diagnosis: Blood loss anemia[ICD10: D50.0] Ericka MCCORMICK DO [facility] CPT-4: 56725 04/30/2021 ([id number]) NURSE/OUTPATIENT VISIT EST Diagnosis: Urinary tract infection[ICD10: N39.0] Ericka MCCORMICK DO [facility] CPT-4: 18575 02/02/2021 ([id number]) OFFICE/OUTPATIENT VISIT EST Diagnosis: Fatigue[ICD10: R53.83] Diagnosis: Blood loss anemia[ICD10: D50.0] Diagnosis: Coronary artery disease[ICD10: I25.10] Diagnosis: Hematuria[ICD10: R31.9] Ericka CHANEL [facility] CPT-4: 00636 01/25/2021 ([id number]) OFFICE/OUTPATIENT VISIT EST Diagnosis: GERD (gastroesophageal reflux disease)[ICD10: K21.9] Diagnosis: Duodenal ulcer[ICD10: K26.9] Diagnosis: Coronary artery disease[ICD10: I25.10] Diagnosis: Anxiety[ICD10: F41.9] Diagnosis: Blood loss anemia[ICD10: D50.0] Ericka MCCORMICK DO [facility] [employer] CPT-4: 26721 12/30/2020 ([id number]) NURSE/OUTPATIENT VISIT EST Diagnosis: Edema[ICD10: R60.9] Ericka MCCORMICK DO [facility] CPT-4: 17895 12/21/2020 ([id number]) OFFICE/OUTPATIENT VISIT EST Diagnosis: Coronary artery disease[ICD10: I25.10] Diagnosis: Essential (primary) hypertension[ICD10: I10] Diagnosis: Stress reaction[ICD10: F43.0] Diagnosis: Insomnia[ICD10: G47.00] Diagnosis: Pulmonary nodule[ICD10: R91.1] Ericka MCCORMICK DO [employer] CPT-4: 88240 11/10/2020 ([id number]) NO CHARGE Diagnosis: Mass of upper lobe of right lung[ICD10: R91.8] Ericka Garcíaenrique CHANCE KatherineNilda CHELY [facility] CPT-4: 87691 07/29/2020 ([id number]) OFFICE/OUTPATIENT VISIT EST Diagnosis: Fatigue[ICD10: R53.83] Diagnosis: Lymphadenopathy of head and neck[ICD10: R59.1] Diagnosis: Weight loss, non-intentional[ICD10: R63.4] Diagnosis: History of melanoma[ICD10: Z85.820] Diagnosis: Skin lesion[ICD10: L98.9] Sara Aguila ERICKA KatherineNilda GARCÍA CAMACHONicko [facility] CPT-4: 80438 07/20/2020 ([id number]) OFFICE/OUTPATIENT VISIT EST Diagnosis: Urinary tract infection[ICD10: N39.0] Meena Martinezimaldi MICHOACANO MurphyNilda CHELY [facility] CPT-4: 90718 04/30/2020 ([id number]) OFFICE/OUTPATIENT VISIT EST Diagnosis: Dizziness[ICD10: R42] Diagnosis: Depressed mood with feeling of loneliness[ICD10: F32.9] Diagnosis: Insomnia[ICD10: G47.00] Ericka CHANCE KatherineNilda EVGENY DARÍO [facility] CPT-4: 86493 04/09/2020 ([id number]) NURSE/OUTPATIENT VISIT EST Diagnosis: Coronary artery disease[ICD10: I25.10] Diagnosis: Fatigue[ICD10: R53.83] Diagnosis: Essential (primary) hypertension[ICD10: I10] Ericka CHANCE KatherineNilda CHELY [facility] CPT-4: 10505 04/07/2020 ([id number]) OFFICE/OUTPATIENT VISIT EST Diagnosis: Fatigue[ICD10: R53.83] Meena Li [facility] CPT-4: 55500 11/22/2019 ([id number]) NURSE/OUTPATIENT VISIT EST Diagnosis: Essential (primary) hypertension[ICD10: I10] Diagnosis: Coronary artery disease[ICD10: I25.10] Diagnosis: Encounter for general adult medical examination with abnormal findings[ICD10: Z00.01] Ericka CHANCE KatherineNilda CHELY [employer] [employer] CPT-4: 84349 09/30/2019 ([id number]) OFFICE/OUTPATIENT VISIT NEW Diagnosis: Essential (primary) hypertension[ICD10: I10] Diagnosis: Coronary artery disease[ICD10: I25.10] Diagnosis: Aortic valve stenosis with insufficiency[ICD10: I35.2] Ericka Milan GARCÍAENRIQUE [facility] CPT-4: 55524 09/10/2019 Plan of Care Planned Activity Notes Codes Status Date Visit Plan: 04/30/2021 Appointment: Ericka Mccormick WPtel: [address] [place] [address] LAB 04/30/2021 Appointment: Ericka Mccormick WPtel: [address] [place] [address] US scheduled by VC CANCELED 03/10/2021 Appointment: Ericka Mccormick WPtel: [address] [place] [address] patient unable to leave urine CANCELED Appointment: Ericka Mccormick WPtel: [address] [place] [address] US CANCELED 02/02/2021 Appointment: Ericka Mccormick WPtel: [address] [place] [address] UA 02/02/2021 Care Plan: UA W/MICR ADD ON ORDER LOINC : 20788-6 Pending 01/26/2021 Visit Diagnosis Plan: Hematuria Discussion: Culture ur ine ICD-9 : 599.70 ICD-10 : R31.9 01/25/2021 Visit Diagnosis Plan: Blood loss anemia Discussion: Ch real CBC now ICD-9 : 280.0 ICD-10 : D50.0 01/25/2021 Appointment: Ericka Mccormick WPtel: [address] [place] [address] ACUTE ILLNESS 01/25/2021 Appointment: Sara Aguila [facility] [phone] [id number] [place] CANCELED 01/01/2021 Visit Diagnosis Plan: Anxiety [...] : K21.9 12/30/2020 Appointment: Ericka Mccormick WPtel: [address] [place], [place] [phone] [place] FOLLOW UP 12/30/2020 Appointment: Ericka Mccormick WPtel: [address] [place] [phone] NURSE SERVICES 12/21/2020 Visit Diagnosis Plan: Insomnia [...] 308.9 ICD-10 : F43.0 11/10/2020 Appointment: Ericka Mccormicktel: [address] [place], [place] [phone] [place] FOLLOW UP 11/10/2020 Patient Education: [email or web address] Coupon [id number] [email or web address] Completed 11/10/2020 Visit Diagnosis Plan: Mass of upper lobe of right lung Discussion: CT scan of lung results discussed with patient and told this looks like cancer Agrees to see pulmonology to see if will be amenable to bronchoscopy to get cells/washings ICD-9 : 786.6 ICD-10 : R91.8 07/29/2020 Appointment: Ericka Mccormick WPtel: [phone] [facility] WORK IN 07/29/2020 Care Plan: Referral Order SNOMED-CT : [id number] Pending 07/29/2020 Care Plan: CT SFT TSUE NCK W/O & W/DYE L OINC : 98480-8 Pending 07/21/2020 Visit Diagnosis Plan: Fatigue Discussion: [...] ICD-10 : L98.9 07/20/2020 Appointment: MingoSara WPtel: [phone] [facility] ACUTE ILLNESS 07/20/2020 Patient Education: Patient [...] ICD-10 : N39.0 04/30/2020 Appointment: Meena Li [address] [place] [address] ACUTE ILLNESS 04/30/2020 Appointment: Meena Li [address] [place], [place] [phone] 04/21/2020 1020---patient needed seen fo [...] : F32.9 04/09/2020 Appointment: Ericka Mccormick WPtel: [address] [place] [address] [place] FOLLOW UP 04/09/2020 Care Plan: COMPREH[place] : [address]-8 Pending 04/09/2020 Appointment: Ericka Mccormick WPtel: [address] [place] [address] US LAB 04/07/2020 Visit Diagnosis Plan: Fatigue Discussion: no other sym ptoms other than fatigue for 4 weeks so will update labs. order sent to [facility] – [facility] for blood work and ua with c&s. instructed to call office with new or worsening symptoms. ICD-9 : 780.79 ICD-10 : R53.83 11/22/2019 Appointment: Meena Li [address] [place], [place] [phone] US TELEMEDICINE 11/22/2019 Appointment: Ericka Mccormick WPtel: [address] [place], [place] [phone] [place] LAB 09/30/2019 Visit Diagnosis Plan: Coronary [...] I10 09/10/2019 Appointment: Ericka Mccormick WPtel: [address] [place] [address] US NEW PATIENT 09/10/2019 Patient Education: carvedilol- [employer] Coupon [id number] [email or web address] Completed 09/10/2019 Appointment: Ericka Mccormick WPtel: [address] [place], [place] [phone] US RESCHEDULED 08/20/2019 Appointment: Ericka Mccormick WPtel: [address] [place], [place] [phone] US CANCELED 07/22/2019 Referral: Vikram Maguire WPtel: [address] [facility] 201 [id number] [place] Referral Appointment Requested Instructions No Instructions Medical Equipment No Medical Equipment data Health Concerns Section Health Concerns data not found Goals Section Goals data not found Interventions Section Interventions data not found Health Status Evaluations/Outcomes Section Health Status Evaluations/Outcomes data not found Advance Directives No Advance Directive data
--- OUTSIDE RECORDS SUMMARY | 2021-05-18 09:20 | XMS REPORT | CCD ---
Author Author Erica Mccormick D.O. 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 Role Phone PP Unavailable CCM Unavailable Summary Purpose Interface Exchange Insurance Providers Payer name Policy type / Coverage type Covered democrat ID Effective Begin Date Effective End Date WPS MEDICARE PART B [place] Medicare Part B [id number] Unknown Unknown [place]UE [place] MEDIC[place] SU[place] Medicare Part B X [id number] Unknown Unknown Family History Family History data not found Social History Social History Element Codes Description Effective Dates Marital status Unknown 09/10/2019 Number of children Unknown 1 09/10/2019 Employment Unknown Retired 09/10/[address]: 6184549 Former smoker quit 201109/10/[address]: 991904 Currently drinks alcohol 09/09 Frequency of drinks SNOMED CT: 527420807 1-4 drinks per week Allergies, Adverse Reactions, [...] Fill Instructions Cipro 250 mg tablet RxNorm: 530790 Take 1 Tablet(s) Oral Q12H 05/0705/09/2021 Inactive pantoprazole 20 mg tablet,delayed release RxNorm: 544720 1 Tablet(s) Oral two times a day 05/06/2021 11/01/2021 Active tramadol 50 mg tablet RxNorm: 043064 1 Tablet(s) Oral t wo times a day as needed for pain 03/15/2021 No Stop Date Active ferrous sulfate 325 mg (65 mg iron) tablet RxNorm: 706410 Take 1 Tablet(s) Oral QD 01/28/2021 05/04/2021 Inactive pantoprazole 20 mg tablet,delayed release RxNorm: 401668 1 Tablet(s) Oral two times a day 12/22/2020 12/22/2020 Inactive paroxetine 20 mg tablet RxNorm: 2322878 1 Tablet(s) Oral QD 021 05/04/2021 Inactive pantoprazole 20 mg tablet,delayed release RxNorm: 732507 1 Tablet(s) Oral two times a day 12/22/2020 12/22/2020 Inactive paroxetine 20 mg tablet RxNorm: 8411445 1 Tablet(s) Oral QD 021 12/15/2020 Inactive paroxetine 20 mg tablet RxNorm: 1684278 1 Tablet(s) Oral QD 021 12/15/2020 Inactive MagOx 400 mg (241.3 mg magnesium) tablet RxNorm: 764313 Take 1 Tablet(s) Oral every night at bedtime with melatonin 11/23/2020 01/24/2021 Inactive melatonin 3 mg tablet RxNorm: 658554 Take 1-2 Tablet(s) Oral every night at bedtime 11/18/2020 No Stop Date Active Plavix 75 mg tablet RxNorm: 260399 Take 1 Tablet(s) Oral QD 07/20/2 021 No Stop Date Active trazodone 50 mg tablet RxNorm: 292315 Take 1-2 Tablet(s ) Oral QPM as needed for sleep 11/10/2020 11/22/2020 Inactive atorvastatin 40 mg tablet RxNorm: 227547 Take 1 Tablet( s) Oral every night at bedtime 11/10/2020 05/04/2021 Inactive alprazolam 0.25 mg tablet RxNorm: 298539 1/2-1 Tablet(s ) Oral QPM as needed for sleep 08/03/2020 09/01/2020 Inactive alprazolam 0.25 mg tablet RxNorm: 643555 1/2-1 Tablet(s ) Oral QPM as needed for sleep 08/03/2020 08/02/2020 Inactive Aspirin Low Dose 81 mg tablet,delayed release RxNorm: 625721 1 Tablet(s) Oral QD 09/10/2019 No Stop Date Active carvedilol 6.25 mg tablet RxNorm: 497266 1 Tablet(s) Oral two t imes a day 09/10/2019 11/09/2020 Inactive Fish Oil 1,000 mg (120 mg-180 mg) capsule RxNorm: 1 Caps ule(s) Oral QD 09/10/2019 11/25/2019 Inactive losartan 25 mg tablet RxNorm: 865656 1 Tablet(s) Oral QD 09/10/2019 0 05/04/2021 Inactive Medication Administered No Medication Administered data Immunizations No Immunization data Results Observation Observation Code Item Item Code Result Date S vice Location GFR CALC 1803923 GFR Afr Amr >60 mL/min 04/30/2021 Unknow n GFR CALC 2129149 GFR Non Afr Amr >60 mL/min 04/30/2021 Un known COMPREHENSIVE METABOLIC 18679 AST 13 U/L 2021 Unknown COMPREHENSIVE METABOLIC 01073 ALT 12 U/L 2021 Unknown COMPREHENSIVE METABOLIC 50675 BUN 15 mg/dL 2021 Unknown COMPREHENSIVE METABOLIC 23627 ALBUMIN 4.0 g/dL 2021 Unknown COMPREHENSIVE METABOLIC 70970 CHLORIDE 103 mmol/L 04/30 Unknown COMPREHENSIVE METABOLIC 30415 Bili Total 0.4 mg/dL 04/30 Unknown COMPREHENSIVE METABOLIC 66099 ALK PHOS 75 U/L 2021 Unknown COMPREHENSIVE METABOLIC 12228 SODIUM 136 mmol/L 04/30 Unknown COMPREHENSIVE METABOLIC 05375 CREATININE 0.69 mg/dL 10/2021 Unknown COMPREHENSIVE METABOLIC 02887 CALCIUM 8.9 mg/dL 2021 Unknown COMPREHENSIVE METABOLIC 29052 POTASSIUM 4.3 mmol/L 04/30 Unknown COMPREHENSIVE METABOLIC 66936 Total Protein 6.7 g/dL Unknown COMPREHENSIVE METABOLIC 02560 Glucose 94 mg/dL 2021 Unknown COMPREHENSIVE METABOLIC 70028 Bicarbonate 25 mmol/L 10/2021 Unknown COMPREHENSIVE METABOLIC 57743 AGAP 8 mmol/L 2021 Unknown COMPLETE BLOOD COUNT [id number] WBC 4.6 10e9/L 04/30/19 22 Unknown COMPLETE BLOOD COUNT [id number] RBC 3.76 10e12/L 2021 Unknown COMPLETE BLOOD COUNT [id number] HEMOGLOBIN 10.9 g/dL 04/30/19 22 Unknown COMPLETE BLOOD COUNT [id number] HEMATOCRIT 35.3 % 04/30/19 22 Unknown COMPLETE BLOOD COUNT [id number] MCV 93.9 fL 2 Unknown COMPLETE BLOOD COUNT [id number] MCH 29.0 pg 2 Unknown COMPLETE BLOOD COUNT 9244706 MCHC 30.9 g/dL 2 Unknown COMPLETE BLOOD COUNT [id number] PLATELET COUNT 254 10e9/L 10/2021 Unknown COMPLETE BLOOD COUNT [id number] Mean Plt Volume 9.0 fL 10/2021 Unknown COMPLETE BLOOD COUNT [id number] Neut Auto 73.2 % 2 Unknown COMPLETE BLOOD COUNT [id number] Lymph Auto 14.3 % 04/30/19 22 Unknown COMPLETE BLOOD COUNT [id number] [place] Auto 8.1 % 2 Unknown COMPLETE BLOOD COUNT [id number] RDW 17.8 % 2 Unknown COMPLETE BLOOD COUNT [id number] Eos Auto 3.7 % 2 Unknown COMPLETE BLOOD COUNT [id number] Baso Auto 0.7 % 2 Unknown COMPLETE BLOOD COUNT [id number] Neutrophil Abs 3.37 10e9/L Unknown COMPLETE BLOOD COUNT [id number] Lymphocyte Abs 0.66 10e9/L Unknown COMPLETE BLOOD COUNT [id number] Monocyte Abs 0.37 10e9/L 10/2021 Unknown COMPLETE BLOOD COUNT [id number] Eosinophil Abs 0.17 10e9/L Unknown COMPLETE BLOOD COUNT [id number] Basophil Abs 0.03 10e9/L 10/2021 Unknown COMPLETE BLOOD COUNT [id number] RDW-SD 59.5 fL Unknown UA W/MICR 13965 UA Protein TNP:Specimen Not Received Unknown UA W/MICR 19022 UA Hemoglobin TNP:Specimen Not Received 02/17/2021 Unknown UA W/MICR 12800 UA Glucose TNP:Specimen Not Received Unknown UA W/MICR 73847 UA Ketones TNP:Specimen Not Received Unknown UA W/MICR 73436 UA pH TNP:Specimen Not Received Unknown UA W/MICR 59896 U Spec [place] TNP:Specimen Not Received 02/17/2021 Unknown UA W/MICR 05322 UA Bilirubin TNP:Specimen Not Received 02/17/2021 Unknown UA W/MICR 44571 UA Leuk [place] TNP:Specimen Not Receive d 02/17/2021 Unknown UA W/MICR 49703 UA Nitrite TNP:Specimen Not Received Unknown UA W/MICR 99473 UA WBC/hpf TNP:Specimen Not Received Unknown UA W/MICR 79647 UA RBC hpf TNP:Specimen Not Received Unknown UA W/MICR 01543 UA Protein TNP:Specimen Integrity 01/27 Unknown UA W/MICR 95316 UA Hemoglobin TNP:Specimen Integrity Unknown UA W/MICR 30556 UA Glucose TNP:Specimen Integrity 01/27 Unknown UA W/MICR 91909 UA Ketones TNP:Specimen Integrity 01/27 Unknown UA W/MICR 57057 UA pH TNP:Specimen Integrity 2020 Unknown UA W/MICR 14642 U Spec [place] TNP:Specimen Integrity 1 Unknown UA W/MICR 24937 UA Bilirubin TNP:Specimen Integrity 09/2020 Unknown UA W/MICR 55177 UA Leuk [place] TNP:Specimen Integrity 01/27/2021 Unknown UA W/MICR 67680 UA Nitrite TNP:Specimen Integrity 01/27 Unknown UA W/MICR 09666 UA WBC/hpf TNP:Specimen Integrity 01/27 Unknown UA W/MICR 75829 UA RBC hpf TNP:Specimen Integrity 01/27 Unknown COMPLETE BLOOD COUNT [id number] WBC 6.1 10e9/L 01/26/20 21 Unknown COMPLETE BLOOD COUNT [id number] RBC 3.34 10e12/L 2020 Unknown COMPLETE BLOOD COUNT [id number] HEMOGLOBIN 8.8 g/dL 01/26/20 21 Unknown COMPLETE BLOOD COUNT [id number] HEMATOCRIT 28.5 % 01/26/20 21 Unknown COMPLETE BLOOD COUNT [id number] MCV 85.3 fL 1 Unknown COMPLETE BLOOD COUNT [id number] MCH 26.3 pg 1 Unknown COMPLETE BLOOD COUNT [id number] MCHC 30.9 g/dL 1 Unknown COMPLETE BLOOD COUNT [id number] PLATELET COUNT 268 10e9/L 07/2020 Unknown COMPLETE BLOOD COUNT 7497130 Mean Plt Volume 8.7 fL 07/2020 Unknown COMPLETE BLOOD COUNT [id number] Neut Auto 67.7 % 1 Unknown COMPLETE BLOOD COUNT [id number] Lymph Auto 19.4 % 01/26/20 21 Unknown COMPLETE BLOOD COUNT 6258165 [place] Auto 8.4 % 1 Unknown COMPLETE BLOOD COUNT 9561446 Eos Auto 3.8 % 1 Unknown COMPLETE BLOOD COUNT [id number] RDW 16.7 % 1 Unknown COMPLETE BLOOD COUNT 4138138 Baso Auto 0.7 % 1 Unknown COMPLETE BLOOD COUNT [id number] Neutrophil Abs 4.13 10e9/L Unknown COMPLETE BLOOD COUNT [id number] Lymphocyte Abs 1.18 10e9/L Unknown COMPLETE BLOOD COUNT [id number] Monocyte Abs 0.51 10e9/L 07/2020 Unknown COMPLETE BLOOD COUNT [id number] Eosinophil Abs 0.23 10e9/L Unknown COMPLETE BLOOD COUNT 3744666 RDW-SD 50.9 fL 1 Unknown COMPLETE BLOOD COUNT [id number] Basophil Abs 0.04 10e9/L 07/2020 Unknown GFR CALC 6465554 GFR Afr Amr >60 mL/min 01/25/2021 Unknow n GFR CALC 4365909 GFR Non Afr Amr >60 mL/min 01/25/2021 Un known COMPREHENSIVE METABOLIC 43203 AST 17 U/L 2020 Unknown COMPREHENSIVE METABOLIC 32841 ALT 13 U/L 2020 Unknown COMPREHENSIVE METABOLIC 56486 BUN 14 mg/dL 2020 Unknown COMPREHENSIVE METABOLIC 43443 ALBUMIN 4.1 g/dL 2020 Unknown COMPREHENSIVE METABOLIC 05713 CHLORIDE 102 mmol/L 01/25 Unknown COMPREHENSIVE METABOLIC 91952 Bili Total 0.4 mg/dL 01/25 Unknown COMPREHENSIVE METABOLIC 23598 ALK PHOS 85 U/L 2020 Unknown COMPREHENSIVE METABOLIC 01093 SODIUM 134 mmol/L 01/25 Unknown COMPREHENSIVE METABOLIC 07107 CREATININE 0.71 mg/dL 07/2020 Unknown COMPREHENSIVE METABOLIC 88719 CALCIUM 9.3 mg/dL 2020 Unknown COMPREHENSIVE METABOLIC 72462 POTASSIUM 4.3 mmol/L 01/25 Unknown COMPREHENSIVE METABOLIC 67446 Total Protein 7.0 g/dL Unknown COMPREHENSIVE METABOLIC 60487 Glucose 111 mg/dL 2020 Unknown COMPREHENSIVE METABOLIC 58157 Bicarbonate 24 mmol/L 07/2020 Unknown COMPREHENSIVE METABOLIC 66048 AGAP 8 mmol/L 2020 Unknown COMPREHENSIVE METABOLIC 61297 AST 16 U/L 2019 Unknown COMPREHENSIVE METABOLIC 33132 ALT 12 U/L 2019 Unknown COMPREHENSIVE METABOLIC 67569 BUN 13 mg/dL 2019 Unknown COMPREHENSIVE METABOLIC 99311 ALBUMIN 4.1 g/dL 2019 Unknown COMPREHENSIVE METABOLIC 43040 CHLORIDE 96 mmol/L 2019 Unknown COMPREHENSIVE METABOLIC 10792 Bili Total 1.1 mg/dL 04/09 Unknown COMPREHENSIVE METABOLIC 27859 ALK PHOS 80 U/L 2019 Unknown COMPREHENSIVE METABOLIC 37209 SODIUM 131 mmol/L 04/09 Unknown COMPREHENSIVE METABOLIC 45756 CREATININE 0.76 mg/dL 03/24 Unknown COMPREHENSIVE METABOLIC 09617 CALCIUM 9.0 mg/dL 2019 Unknown COMPREHENSIVE METABOLIC 35853 POTASSIUM 4.2 mmol/L 04/09 Unknown COMPREHENSIVE METABOLIC 53158 Total Protein 6.8 g/dL Unknown COMPREHENSIVE METABOLIC 93452 Glucose 101 mg/dL 2019 Unknown COMPREHENSIVE METABOLIC 51213 Bicarbonate 25 mmol/L 03/24 Unknown COMPREHENSIVE METABOLIC 97054 AGAP 10 mmol/L 2019 Unknown GFR CALC 8492627 GFR Non Afr Amr >60 mL/min 04/09/2020 Un known GFR CALC 4867896 GFR Afr Amr >60 mL/min 04/09/2020 Unknow n GAMMA GLUTAMYL TRANSFERASE 04392 GGT 19 U/L Unknown COMPLETE BLOOD COUNT [id number] WBC 6.3 10e9/L 04/07/20 20 Unknown COMPLETE BLOOD COUNT [id number] RBC 4.36 10e12/L 2019 Unknown COMPLETE BLOOD COUNT [id number] HEMOGLOBIN 15.2 g/dL 04/07/20 20 Unknown COMPLETE BLOOD COUNT [id number] HEMATOCRIT 43.8 % 04/07/20 20 Unknown COMPLETE BLOOD COUNT [id number] MCV 100.5 fL 0 Unknown COMPLETE BLOOD COUNT [id number] MCH 34.9 pg 0 Unknown COMPLETE BLOOD COUNT 9236997 MCHC 34.7 g/dL 0 Unknown COMPLETE BLOOD COUNT 7360725 PLATELET COUNT 254 10e9/L Unknown COMPLETE BLOOD COUNT 4995648 Mean Plt Volume 9.9 fL Unknown COMPLETE BLOOD COUNT 2156271 Neut Auto 63.3 % 0 Unknown COMPLETE BLOOD COUNT 2993826 Lymph Auto 24.5 % 04/07/20 20 Unknown COMPLETE BLOOD COUNT 8800868 [place] Auto 8.4 % 0 Unknown COMPLETE BLOOD COUNT 8216186 Eos Auto 3.2 % 0 Unknown COMPLETE BLOOD COUNT 1212035 RDW 12.8 % 0 Unknown COMPLETE BLOOD COUNT 3857958 Baso Auto 0.6 % 0 Unknown COMPLETE BLOOD COUNT 1124590 Neutrophil Abs 3.99 10e9/L Unknown COMPLETE BLOOD COUNT 8379396 Lymphocyte Abs 1.54 10e9/L Unknown COMPLETE BLOOD COUNT [id number] Monocyte Abs 0.53 10e9/L 03/24 Unknown COMPLETE BLOOD COUNT [id number] Eosinophil Abs 0.20 10e9/L Unknown COMPLETE BLOOD COUNT 6216077 RDW-SD 47.6 fL 0 Unknown COMPLETE BLOOD COUNT 3443585 Basophil Abs 0.04 10e9/L 03/24 Unknown VITAMIN B 12 29419 VITAMIN B12 661 pg/mL 04/07/2020 Unkn own LIPID GROUP 30083 Cholesterol 168 mg/dL 09/30/2019 Unkno wn LIPID GROUP 50299 Triglyceride 141 mg/dL 09/30/2019 Unkn own LIPID GROUP 95285 HDL CHOLESTEROL 66 mg/dL 09/30/2019 U nknown LIPID GROUP 95682 Chol/HDL Ratio 2.55 ratio 09/30/2019 U nknown LIPID GROUP 39355 NON-HDL Chol 102 mg/dL 09/30/2019 Unkn own LIPID GROUP 41189 LDL Cholesterol 74 mg/dL 09/30/2019 U nknown FREE T4 91722 T4 Free 0.76 ng/dL 09/30/2019 Unknown THYROID STIMULATING HORMONE 27731 TSH 2.186 uIU/mL 09/30/2019 Unknown GFR CALC 1450936 GFR Non Afr Amr >60 mL/min 09/30/2019 Un known GFR CALC 9522634 GFR Afr Amr >60 mL/min 09/30/2019 Unknow n COMPREHENSIVE METABOLIC 46679 AST 14 U/L 2019 Unknown COMPREHENSIVE METABOLIC 72696 ALT 11 U/L 2019 Unknown COMPREHENSIVE METABOLIC 43151 BUN 15 mg/dL 2019 Unknown COMPREHENSIVE METABOLIC 50188 ALBUMIN 4.0 g/dL 2019 Unknown COMPREHENSIVE METABOLIC 19148 CHLORIDE 96 mmol/L 2019 Unknown COMPREHENSIVE METABOLIC 97367 Bili Total 0.9 mg/dL 09/29 Unknown COMPREHENSIVE METABOLIC 76582 ALK PHOS 72 U/L 2019 Unknown COMPREHENSIVE METABOLIC 13341 SODIUM 132 mmol/L 09/29 Unknown COMPREHENSIVE METABOLIC 40773 CREATININE 0.73 mg/dL 11/2019 Unknown COMPREHENSIVE METABOLIC 73777 CALCIUM 9.1 mg/dL 2019 Unknown COMPREHENSIVE METABOLIC 83122 POTASSIUM 4.6 mmol/L 09/29 Unknown COMPREHENSIVE METABOLIC 07938 Total Protein 6.4 g/dL Unknown COMPREHENSIVE METABOLIC 30460 Glucose 97 mg/dL 2019 Unknown COMPREHENSIVE METABOLIC 61962 Bicarbonate 25 mmol/L 11/2019 Unknown COMPREHENSIVE METABOLIC 54156 AGAP 11 mmol/L 2019 Unknown COMPLETE BLOOD COUNT 2429488 WBC 5.3 10e9/L 09/30/19 20 Unknown COMPLETE BLOOD COUNT 4368684 RBC 4.16 10e12/L 2019 Unknown COMPLETE BLOOD COUNT 8127894 HEMOGLOBIN 14.1 g/dL 09/30/19 20 Unknown COMPLETE BLOOD COUNT 9479032 HEMATOCRIT 42.6 % 09/30/19 20 Unknown COMPLETE BLOOD COUNT 8834006 MCV 102.4 fL 0 Unknown COMPLETE BLOOD COUNT 6554557 MCH 33.9 pg 0 Unknown COMPLETE BLOOD COUNT 5015272 MCHC 33.1 g/dL 0 Unknown COMPLETE BLOOD COUNT 0450458 PLATELET COUNT 273 10e9/L 11/2019 Unknown COMPLETE BLOOD COUNT 5709302 Mean Plt Volume 9.4 fL 11/2019 Unknown COMPLETE BLOOD COUNT 3645773 Neut Auto 57.3 % 0 Unknown COMPLETE BLOOD COUNT 5016223 Lymph Auto 29.3 % 09/30/19 20 Unknown COMPLETE BLOOD COUNT 8250536 [place] Auto 7.6 % 0 Unknown COMPLETE BLOOD COUNT 4989269 Eos Auto 4.5 % 0 Unknown COMPLETE BLOOD COUNT 9250553 RDW 13.8 % 0 Unknown COMPLETE BLOOD COUNT 9094247 Baso Auto 1.3 % 0 Unknown COMPLETE BLOOD COUNT [id number] Neutrophil Abs 3.04 10e9/L Unknown COMPLETE BLOOD COUNT 2716000 Lymphocyte Abs 1.55 10e9/L Unknown COMPLETE BLOOD COUNT [id number] Monocyte Abs 0.40 10e9/L 11/2019 Unknown COMPLETE BLOOD COUNT 4545549 Eosinophil Abs 0.24 10e9/L Unknown COMPLETE BLOOD COUNT 2629992 RDW-SD 50.7 fL 0 Unknown COMPLETE BLOOD COUNT 0691471 Basophil Abs 0.07 10e9/L 11/2019 Unknown Procedures Procedure Codes Date URINALYSIS NONAUTO W/O SCOPE CPT-4: 55531 05/07/2021 URINE CULTURE/ COLONY COUNT CPT-4: 85411 05/07/2021 ROUTINE VENIPUNCTURE CPT-4: 71152 04/30/2021 COMPREHEN METABOLIC PANEL CPT-4: 97410 04/30/2021 COMPLETE CBC W/AUTO DIFF WBC CPT-4: 76885 04/30/2021 UA W/MICR CPT-4: 20182 02/15/2021 URINE CULTURE/ COLONY COUNT CPT-4: 30314 02/02/2021 ROUTINE VENIPUNCTURE CPT-4: 57545 01/25/2021 COMPREHEN METABOLIC PANEL CPT-4: 60826 01/25/2021 COMPLETE CBC W/AUTO DIFF WBC CPT-4: 33272 01/25/2021 URINE CULTURE/ COLONY COUNT CPT-4: 46707 01/25/2021 URINALYSIS NONAUTO W/O SCOPE CPT-4: 90019 01/25/2021 ROUTINE VENIPUNCTURE CPT-4: 28049 07/20/2020 COMPREHEN METABOLIC PANEL CPT-4: 63160 07/20/2020 ASSAY OF FREE THYROXINE CPT-4: 02542 07/20/2020 ASSAY THYROID STIM HORMONE CPT-4: 74973 07/20/2020 COMPLETE CBC W/AUTO DIFF WBC CPT-4: 16936 07/20/2020 RBC SED RATE AUTOMATED CPT-4: 08694 07/20/2020 URINALYSIS NONAUTO W/O SCOPE CPT-4: 36894 04/30/2020 URINE CULTURE/ COLONY COUNT CPT-4: 97564 04/30/2020 ROUTINE VENIPUNCTURE CPT-4: 44158 04/07/2020 COMPLETE CBC W/AUTO DIFF WBC CPT-4: 49599 04/07/2020 VITAMIN B-12 CPT-4: 90234 04/07/2020 ASSAY OF GGT CPT-4: 11539 04/07/2020 ROUTINE VENIPUNCTURE CPT-4: 85985 09/30/2019 ASSAY OF FREE THYROXINE CPT-4: 48039 09/30/2019 ASSAY THYROID STIM HORMONE CPT-4: 26069 09/30/2019 COMPREHEN METABOLIC PANEL CPT-4: 94380 09/30/2019 COMPLETE CBC W/AUTO DIFF WBC CPT-4: 52179 09/30/2019 LIPID PANEL CPT-4: 58775 09/30/2019 Vital Signs Date Vital 05/07/2021 Blood Pressure 1: 126/68 Code: 8480-6 Heart Rate 1: 52 bpm Respiratory Rate: 20 bpm SpO2: 99% Temperature: 36.6 (C) / 97.9 (F) We ight: 80 lbs Code: 94140-7 05/05/2021 Blood Pressure 1: 118/76 Code: 8480-6 BMI: 13.1 Code: 53953-8 Heart Rate 1: 67 bpm Height: 5'5" Code: 8302-2 Respiratory Rate: 16 bpm Temperatu re: 36.4 (C) / 97.5 (F) Weight: 79 lbs Code: 74120-9 01/25/2021 Blood Pressure 1: 102/68 Code: 8480-6 Heart Rate 1: 76 bpm Respiratory Rate: 20 bpm SpO2: 100% Temperature: 36.9 (C) / 98.5 (F) We ight: 87 lbs Code: 56685-9 12/30/2020 Blood Pressure 1: 134/80 Code: 8480-6 BMI: 14.1 Code: 66588-0 Heart Rate 1: 72 bpm Height: 5'5" Code: 8302-2 Respiratory Rate: 18 bpm SpO2: 97% Temperature: 36.6 (C) / 97.8 (F) Weight: 85 lbs Code: 24195-3 11/10/2020 Blood Pressure 1: 130/74 Code: 8480-6 Heart Rate 1: 56 bpm Respiratory Rate: 20 bpm SpO2: 98% Temperature: 36.3 (C) / 97.4 (F) We ight: 85 lbs Code: 61115-1 07/29/2020 Blood Pressure 1: 121/65 Code: 8480-6 BMI: 14.3 Code: 19456-3 Heart Rate 1: 58 bpm Height: 5'5" Code: 8302-2 Respiratory Rate: 15 bpm SpO2: 98% Temperature: 36.9 (C) / 98.4 (F) Weight: 86 lbs Code: 44952-3 07/20/2020 Blood Pressure 1: 123/69 Code: 8480-6 Heart Rate 1: 68 bpm Respiratory Rate: 15 bpm SpO2: 99% Temperature: 36.6 (C) / 97.8 (F) We ight: 83 lbs Code: 16139-6 04/30/2020 Blood Pressure 1: 128/82 Code: 8480-6 Heart Rate 1: 68 bpm Respiratory Rate: 20 bpm SpO2: 95% Temperature: 36.5 (C) / 97.7 (F) We ight: 91 lbs Code: 71367-0 04/09/2020 Blood Pressure 1: 130/78 Code: 8480-6 Heart Rate 1: 68 bpm Respiratory Rate: 20 bpm SpO2: 99% Temperature: 36.3 (C) / 97.4 (F) We ight: 90 lbs Code: 95182-4 11/22/2019 Temperature: 36.3 (C) / 97.3 (F) 09/10/2019 Blood Pressure 1: 128/72 Code: 8480-6 BMI: 15.6 Code: 11001-0 Heart Rate 1: 68 bpm Height: 5'5" Code: 8302-2 Respiratory Rate: 20 bpm SpO2: 97% Temperature: 36.6 (C) / 97.9 (F) Weight: 94 lbs Code: 47132-6 Functional Status No Functional Status data Reason [...] Diagnosis: Urinary frequency[ICD10: R35.0] Sara MCCORMICK DO [facility] CPT-4: 76369 05/07/2021 ([id number]) OFFICE/OUTPATIENT VISIT EST Diagnosis: Mass of right lung[ICD10: R91.8] Diagnosis: Right patella fracture[ICD10: S82.001A] Diagnosis: Abnormal weight loss[ICD10: R63.4] Diagnosis: Coronary artery arteriosclerosis[ICD10: I25.10] Diagnosis: Fatigue[ICD10: R53.83] Ericka Maharaj [facility] CPT-4: 38041 05/05/2021 ([id number]) NURSE/OUTPATIENT VISIT EST Diagnosis: Essential (primary) hypertension[ICD10: I10] Diagnosis: Fatigue[ICD10: R53.83] Diagnosis: Blood loss anemia[ICD10: D50.0] Ericka MCCORMICK [facility] CPT-4: 44461 04/30/2021 ([id number]) NURSE/OUTPATIENT VISIT EST Diagnosis: Urinary tract infection[ICD10: N39.0] Ericka MCCORMICK [facility] CPT-4: 33508 02/02/2021 ([id number]) OFFICE/OUTPATIENT VISIT EST Diagnosis: Fatigue[ICD10: R53.83] Diagnosis: Blood loss anemia[ICD10: D50.0] Diagnosis: Coronary artery disease[ICD10: I25.10] Diagnosis: Hematuria[ICD10: R31.9] Ericka CHANEL [facility] CPT-4: 59442 01/25/2021 ([id number]) OFFICE/OUTPATIENT VISIT EST Diagnosis: GERD (gastroesophageal reflux disease)[ICD10: K21.9] Diagnosis: Duodenal ulcer[ICD10: K26.9] Diagnosis: Coronary artery disease[ICD10: I25.10] Diagnosis: Anxiety[ICD10: F41.9] Diagnosis: Blood loss anemia[ICD10: D50.0] Ericka MCCORMICK [facility] CPT-4: 24711 12/30/2020 ([id number]) NURSE/OUTPATIENT VISIT EST Diagnosis: Edema[ICD10: R60.9] Ericka MCCORMICK [facility] CPT-4: 60849 12/21/2020 ([id number]) OFFICE/OUTPATIENT VISIT EST Diagnosis: Coronary artery disease[ICD10: I25.10] Diagnosis: Essential (primary) hypertension[ICD10: I10] Diagnosis: Stress reaction[ICD10: F43.0] Diagnosis: Insomnia[ICD10: G47.00] Diagnosis: Pulmonary nodule[ICD10: R91.1] Ericka Marianocurtispromise MCCORMICK [facility] CPT-4: 98070 11/10/2020 ([id number]) NO CHARGE Diagnosis: Mass of upper lobe of right lung[ICD10: R91.8] Ericka Anny MCCORMICK [facility] CPT-4: 18941 07/29/2020 ([id number]) OFFICE/OUTPATIENT VISIT EST Diagnosis: Fatigue[ICD10: R53.83] Diagnosis: Lymphadenopathy of head and neck[ICD10: R59.1] Diagnosis: Weight loss, non-intentional[ICD10: R63.4] Diagnosis: History of melanoma[ICD10: Z85.820] Diagnosis: Skin lesion[ICD10: L98.9] Sara Delgadovitormomo NUNEZ [facility] CPT-4: 73734 07/20/2020 ([id number]) OFFICE/OUTPATIENT VISIT EST Diagnosis: Urinary tract infection[ICD10: N39.0] Meena Martinezmichael RÍOS BUBBA M[facility]ORMICK [facility] CPT-4: 01650 04/30/2020 ([id number]) OFFICE/OUTPATIENT VISIT EST Diagnosis: Dizziness[ICD10: R42] Diagnosis: Depressed mood with feeling of loneliness[ICD10: F32.9] Diagnosis: Insomnia[ICD10: G47.00] Ericka Anny HAYNESLINE Kayli CHANEL [facility] CPT-4: 25721 04/09/2020 ([id number]) NURSE/OUTPATIENT VISIT EST Diagnosis: Coronary artery disease[ICD10: I25.10] Diagnosis: Fatigue[ICD10: R53.83] Diagnosis: Essential (primary) hypertension[ICD10: I10] Ericka Garcíadeysi ERICKA Kayli [facility] CPT-4: 11911 04/07/2020 ([id number]) OFFICE/OUTPATIENT VISIT EST Diagnosis: Fatigue[ICD10: R53.83] Meena Martinezimaldi [facility] CPT-4: 64851 11/22/2019 ([id number]) NURSE/OUTPATIENT VISIT EST Diagnosis: Essential (primary) hypertension[ICD10: I10] Diagnosis: Coronary artery disease[ICD10: I25.10] Diagnosis: Encounter for general adult medical examination with abnormal findings[ICD10: Z00.01] Ericka CHANCE KatherineNilda ANNY [facility] CPT-4: 29451 09/30/2019 ([id number]) OFFICE/OUTPATIENT VISIT NEW Diagnosis: Essential (primary) hypertension[ICD10: I10] Diagnosis: Coronary artery disease[ICD10: I25.10] Diagnosis: Aortic valve stenosis with insufficiency[ICD10: I35.2] Ericka Garcíadeysi ERICKA SNilda [facility]NY [facility] CPT-4: 65632 09/10/2019 Plan of Care Planned Activity Notes Codes Status Date Visit Diagnosis Plan: Urinary tract infection Discussi on: Will start cipro and send urine for culture. Push fluids. Will f/u with culture results. ICD-9 : 599.0 ICD-10 : N39.0 05/07/2021 Appointment: Sara Aguila WPtel: [phone] ACUTE ILLNESS 05/07/2021 Patient Education: Patient Medication Summary Completed [...] 414.00 ICD-10 : I25.10 05/05/2021 Appointment: Ericka Mccormick WPtel: [address] [place], [place] [phone] US FOLLOW UP 05/05/2021 Visit Plan: 04/30/2021 Appointment: Ericka Mccormick WPtel: [address] [place], [place] [phone] US LAB 04/30/2021 Appointment: Ericka Mccormick WPtel: [address] [place], [place] [phone] US scheduled by CANCELED 03/10/2021 Appointment: Ericka Mccormick WPtel: [address] [place], [place] [phone] US patient unable to leave urine CANCELED Appointment: Ericka Mccormick WPtel: [address] [place], [place] [phone] US CANCELED 02/02/2021 Appointment: Ericka Mccormick WPtel: [address] [place], [place] [phone] US UA 02/02/2021 Care Plan: UA W/MICR ADD ON ORDER LOINC : 60628-5 Pending 01/26/2021 Visit Diagnosis Plan: Hematuria Discussion: Culture ur ine ICD-9 : 599.70 ICD-10 : R31.9 01/25/2021 Visit Diagnosis Plan: Blood loss anemia Discussion: Ch real CBC now ICD-9 : 280.0 ICD-10 : D50.0 01/25/2021 Appointment: Ericka Mccormick WPtel: [address] [place], [place] [id number] ACUTE [facility] 01/25/2021 Appointment: Sara Aguila WPtel: [address] [place], [place] [phone] US CANCELED 01/01/2021 Visit Diagnosis Plan: Anxiety [...] K21.9 12/30/2020 Appointment: Ericka Mccormick WPtel: [address] [place], [place] [phone] FOLLOW UP 12/30/2020 Appointment: Ericka Mccormick WPtel: [address] [place], [place] [phone] NURSE SERVICES 12/21/2020 Visit Diagnosis Plan: Insomnia [...] : F43.0 11/10/2020 Appointment: Ericka Mccormick WPtel: [address] [place], [place] [phone] FOLLOW UP 11/10/2020 Patient Education: [email or web address]- [employer] Coupon [id number] [email or web address] Completed 11/10/2020 Visit Diagnosis Plan: Mass of upper lobe of right lung Discussion: CT scan of lung results discussed with patient and told this looks like cancer Agrees to see pulmonology to see if will be amenable to bronchoscopy to get cells/washings ICD-9 : 786.6 ICD-10 : R91.8 07/29/2020 Appointment: Ericka Mccormick WPtel: [facility][note 3]6 [facility] US WORK IN 07/29/2020 Care Plan: Referral Order SNOMED-CT : [id number] Pending 07/29/2020 Care Plan: CT SFT TSUE NCK W/O & W/DYE L OINC : 58770-4 Pending 07/21/2020 Visit Diagnosis Plan: Fatigue Discussion: [...] 07/20/2020 Appointment: Sara Aguila WPtel: [phone] [facility] ACUTE ILLNESS 07/20/2020 Patient Education: Patient [...] : N39.0 04/30/2020 Appointment: Meena Li [address] [place], [place] [phone] ACUTE ILLNESS 04/30/2020 Appointment: Meena Li [address] [place], [place] [phone] 04/21/2020 1020---patient needed seen fo r appointment [...] : F32.9 04/09/2020 Appointment: Ericka Mccormick WPtel: [address] [place], [place] [phone] [place] FOLLOW UP 04/09/2020 Care Plan: [place] : [address]-1 Pending 04/09/2020 Appointment: Ericka Mccormick WPtel: [address] [place], [place] [phone] [place] LAB 04/07/2020 Visit Diagnosis Plan: Fatigue Discussion: no other sym ptoms other than fatigue for 4 weeks so will update labs. [place] [facility] [place] and ua with c&s. instructed to call office with new or worsening symptoms. ICD-9 : 780.79 ICD-10 : R53.83 11/22/2019 Appointment: Meena Li [address] [place] [address] TELEMEDICINE 11/22/2019 Appointment: Ericka Mccormick WPtel: [address] [place] [address] LAB 09/30/2019 Visit Diagnosis Plan: Coronary artery [...] I10 09/10/2019 Appointment: Ericka Mccormick WPtel: [address] [place], [place] [phone] NEW PATIENT 09/10/2019 Patient Education: carvedilol- [employer] [id number] [email or web address] Completed 09/10/2019 Appointment: Ericka Mccormick WPtel: [address] [facility] US RESCHEDULED 08/20/2019 Appointment: [facility]ick [facility]el[facility] [address] [facility] [place] CANCELED 07/22/2019 Referral: Vikram Maguire WPtel: [address] [facility] 201 [id number] [place] Referral Appointment Requested Instructions No Instructions Medical Equipment No Medical Equipment data Health Concerns Section Health Concerns data not found Goals Section Goals data not found Interventions Section Interventions data not found Health Status Evaluations/Outcomes Section Health Status Evaluations/Outcomes data not found Advance Directives No Advance Directive data
--- OUTSIDE RECORDS SUMMARY | 2021-05-18 09:20 | XMS REPORT | CCD ---
Author Author Erica Mccormick D.O. 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 Manager Name Role Phone PP Unavailable CCM Unavailable Summary Purpose Interface Exchange Insurance Providers Payer name Policy type / Coverage type Covered republican ID Effective Begin Date Effective End Date WPS MEDICARE PART B [place] Medicare Part B [id number] Unknown Unknown BLUE [employer] [place] [place] MEDIC[place] Medicare Part B X [id number] Unknown Unknown Family History Family History data not found Social History Social History Element Codes Description Effective Dates Marital status Unknown 09/10/2019 Number of children Unknown 1 09/10/2019 Employment Unknown Retired 09/10/[address]: 5247237 Former smoker quit 201109/10/[address]: 505526 Currently drinks alcohol 09/09 Frequency of drinks SNOMED CT: 786569020 1-4 drinks per week Allergies, Adverse Reactions, [...] Fill Instructions tramadol 50 mg tablet RxNorm: 950925 1 Tablet(s) Oral t wo times a day as needed for pain 03/15/2021 No Stop Date Active ferrous sulfate 325 mg (65 mg iron) tablet RxNorm: 711129 Take 1 Tablet(s) Oral QD 01/28/2021 No Stop Date Active paroxetine 20 mg tablet RxNorm: 0283578 1 Tablet(s) Oral QD 021 01/20/2021 Inactive pantoprazole 20 mg tablet,delayed release RxNorm: 661851 1 Tablet(s) Oral two times a day 12/22/2020 03/21/2021 Inactive pantoprazole 20 mg tablet,delayed release RxNorm: 512029 1 Tablet(s) Oral two times a day 12/22/2020 12/22/2020 Inactive paroxetine 20 mg tablet RxNorm: 8227382 1 Tablet(s) Oral QD 021 12/15/2020 Inactive paroxetine 20 mg tablet RxNorm: 1814864 1 Tablet(s) Oral QD 021 12/15/2020 Inactive MagOx 400 mg (241.3 mg magnesium) tablet RxNorm: 214462 Take 1 Tablet(s) Oral every night at bedtime with melatonin 11/23/2020 01/24/2021 Inactive melatonin 3 mg tablet RxNorm: 989464 Take 1-2 Tablet(s) Oral every night at bedtime 11/18/2020 No Stop Date Active atorvastatin 40 mg tablet RxNorm: 420585 Take 1 Tablet( s) Oral every night at bedtime 11/10/2020 No Stop Date Active Plavix 75 mg tablet RxNorm: 875536 Take 1 Tablet(s) Oral QD No Stop Date Active trazodone 50 mg tablet RxNorm: 115042 Take 1-2 Tablet(s ) Oral QPM as needed for sleep 11/10/2020 11/22/2020 Inactive alprazolam 0.25 mg tablet RxNorm: 197547 1/2-1 Tablet(s ) Oral QPM as needed for sleep 08/03/2020 09/01/2020 Inactive alprazolam 0.25 mg tablet RxNorm: 983710 1/2-1 Tablet(s ) Oral QPM as needed for sleep 08/03/2020 08/02/2020 Inactive Aspirin Low Dose 81 mg tablet,delayed release RxNorm: 098647 1 Tablet(s) Oral QD 09/10/2019 No Stop Date Active losartan 25 mg tablet RxNorm: 527107 1 Tablet(s) Oral QD 09/10/2019 No Stop Date Active carvedilol 6.25 mg tablet RxNorm: 870755 1 Tablet(s) Oral two t imes a day 09/10/2019 11/09/2020 Inactive Fish Oil 1,000 mg (120 mg-180 mg) capsule RxNorm: 1 Caps ule(s) Oral QD 09/10/2019 11/25/2019 Inactive Medication Administered No Medication Administered data Immunizations No Immunization data Results Observation Observation Code Item Item Code Result Date S ervice Location UA W/MICR 08201 UA Protein TNP:Specimen Not Received Unknown UA W/MICR 42010 UA Hemoglobin TNP:Specimen Not Received 02/17/2021 Unknown UA W/MICR 84837 UA Glucose TNP:Specimen Not Received Unknown UA W/MICR 54900 UA Ketones TNP:Specimen Not Received Unknown UA W/MICR 92358 UA pH TNP:Specimen Not Received Unknown UA W/MICR 62684 U Spec Haynes TNP:Specimen Not Received 02/17/2021 Unknown UA W/MICR 22480 UA Bilirubin TNP:Specimen Not Received 02/17/2021 Unknown UA W/MICR 83969 UA Leuk Esteras TNP:Specimen Not Receive d 02/17/2021 Unknown UA W/MICR 88748 UA Nitrite TNP:Specimen Not Received Unknown UA W/MICR 90645 UA WBC/hpf TNP:Specimen Not Received Unknown UA W/MICR 00186 UA RBC hpf TNP:Specimen Not Received Unknown UA W/MICR 99985 UA Protein TNP:Specimen Integrity 01/27 Unknown UA W/MICR 95951 UA Hemoglobin TNP:Specimen Integrity Unknown UA W/MICR 95076 UA Glucose TNP:Specimen Integrity 01/27 Unknown UA W/MICR 93898 UA Ketones TNP:Specimen Integrity 01/27 Unknown UA W/MICR 83518 UA pH TNP:Specimen Integrity 2020 Unknown UA W/MICR 02204 U Spec Haynes TNP:Specimen Integrity 1 Unknown UA W/MICR 60893 UA Bilirubin TNP:Specimen Integrity 09/2020 Unknown UA W/MICR 37905 UA Leuk Esteras TNP:Specimen Integrity 01/27/2021 Unknown UA W/MICR 31112 UA Nitrite TNP:Specimen Integrity 01/27 Unknown UA W/MICR 86626 UA WBC/hpf TNP:Specimen Integrity 01/27 Unknown UA W/MICR 40409 UA RBC hpf TNP:Specimen Integrity 01/27 Unknown COMPLETE BLOOD COUNT [id number] WBC 6.1 10e9/L 01/26/20 21 Unknown COMPLETE BLOOD COUNT [id number] RBC 3.34 10e12/L 2020 Unknown COMPLETE BLOOD COUNT [id number] HEMOGLOBIN 8.8 g/dL 01/26/20 21 Unknown COMPLETE BLOOD COUNT [id number] HEMATOCRIT 28.5 % 01/26/20 21 Unknown COMPLETE BLOOD COUNT [id number] MCV 85.3 fL 1 Unknown COMPLETE BLOOD COUNT [id number] MCH 26.3 pg 1 Unknown COMPLETE BLOOD COUNT 9883503 MCHC 30.9 g/dL 1 Unknown COMPLETE BLOOD COUNT 7254297 PLATELET COUNT 268 10e9/L 07/2020 Unknown COMPLETE BLOOD COUNT 1074982 Mean Plt Volume 8.7 fL 07/2020 Unknown COMPLETE BLOOD COUNT 9008711 Neut Auto 67.7 % 1 Unknown COMPLETE BLOOD COUNT [id number] Lymph Auto 19.4 % 01/26/20 21 Unknown COMPLETE BLOOD COUNT 6858943 Pitt Auto 8.4 % 1 Unknown COMPLETE BLOOD COUNT [id number] Eos Auto 3.8 % 1 Unknown COMPLETE BLOOD COUNT 7790973 RDW 16.7 % 1 Unknown COMPLETE BLOOD COUNT 0115197 Baso Auto 0.7 % 1 Unknown COMPLETE BLOOD COUNT 8008783 Neutrophil Abs 4.13 10e9/L Unknown COMPLETE BLOOD COUNT 2003489 Lymphocyte Abs 1.18 10e9/L Unknown COMPLETE BLOOD COUNT [id number] Monocyte Abs 0.51 10e9/L 07/2020 Unknown COMPLETE BLOOD COUNT [id number] Eosinophil Abs 0.23 10e9/L Unknown COMPLETE BLOOD COUNT 5106857 RDW-SD 50.9 fL Unknown COMPLETE BLOOD COUNT [id number] Basophil Abs 0.04 10e9/L 07/2020 Unknown GFR CALC 9134711 GFR Non Afr Amr >60 mL/min 01/25/2021 Un known GFR CALC [id number] GFR Afr Amr >60 mL/min 01/25/2021 Unknow n COMPREHENSIVE METABOLIC 47235 AST 17 U/L 2020 Unknown COMPREHENSIVE METABOLIC 86327 ALT 13 U/L 2020 Unknown COMPREHENSIVE METABOLIC 40207 BUN 14 mg/dL 2020 Unknown COMPREHENSIVE METABOLIC 34202 ALBUMIN 4.1 g/dL 2020 Unknown COMPREHENSIVE METABOLIC 27900 CHLORIDE 102 mmol/L 01/25 Unknown COMPREHENSIVE METABOLIC 48323 Bili Total 0.4 mg/dL 01/25 Unknown COMPREHENSIVE METABOLIC 22320 ALK PHOS 85 U/L 2020 Unknown COMPREHENSIVE METABOLIC 70154 SODIUM 134 mmol/L 01/25 Unknown COMPREHENSIVE METABOLIC 51363 CREATININE 0.71 mg/dL 07/2020 Unknown COMPREHENSIVE METABOLIC 58323 CALCIUM 9.3 mg/dL 2020 Unknown COMPREHENSIVE METABOLIC 73957 POTASSIUM 4.3 mmol/L 01/25 Unknown COMPREHENSIVE METABOLIC 85808 Total Protein 7.0 g/dL Unknown COMPREHENSIVE METABOLIC 31121 Glucose 111 mg/dL 2020 Unknown COMPREHENSIVE METABOLIC 22270 Bicarbonate 24 mmol/L 07/2020 Unknown COMPREHENSIVE METABOLIC 55605 AGAP 8 mmol/L 2020 Unknown COMPREHENSIVE METABOLIC 03638 AST 16 U/L 2019 Unknown COMPREHENSIVE METABOLIC 54108 ALT 12 U/L 2019 Unknown COMPREHENSIVE METABOLIC 12139 BUN 13 mg/dL 2019 Unknown COMPREHENSIVE METABOLIC 54644 ALBUMIN 4.1 g/dL 2019 Unknown COMPREHENSIVE METABOLIC 90791 CHLORIDE 96 mmol/L 2019 Unknown COMPREHENSIVE METABOLIC 90884 Bili Total 1.1 mg/dL 04/09 Unknown COMPREHENSIVE METABOLIC 22880 ALK PHOS 80 U/L 2019 Unknown COMPREHENSIVE METABOLIC 01656 SODIUM 131 mmol/L 04/09 Unknown COMPREHENSIVE METABOLIC 10459 CREATININE 0.76 mg/dL 03/24 Unknown COMPREHENSIVE METABOLIC 16795 CALCIUM 9.0 mg/dL 2019 Unknown COMPREHENSIVE METABOLIC 66825 POTASSIUM 4.2 mmol/L 04/09 Unknown COMPREHENSIVE METABOLIC 54253 Total Protein 6.8 g/dL Unknown COMPREHENSIVE METABOLIC 99757 Glucose 101 mg/dL 2019 Unknown COMPREHENSIVE METABOLIC 12312 Bicarbonate 25 mmol/L 03/24 Unknown COMPREHENSIVE METABOLIC 76253 AGAP 10 mmol/L 2019 Unknown GFR CALC 7879616 GFR Non Afr Amr >60 mL/min 04/09/2020 Un known GFR CALC [id number] GFR Afr Amr >60 mL/min 04/09/2020 Unknow n GAMMA GLUTAMYL TRANSFERASE 28337 GGT 19 U/L Unknown COMPLETE BLOOD COUNT 2481911 WBC 6.3 10e9/L 04/07/20 20 Unknown COMPLETE BLOOD COUNT [id number] RBC 4.36 10e12/L 2019 Unknown COMPLETE BLOOD COUNT 2230152 HEMOGLOBIN 15.2 g/dL 04/07/20 20 Unknown COMPLETE BLOOD COUNT 1017923 HEMATOCRIT 43.8 % 04/07/20 20 Unknown COMPLETE BLOOD COUNT 3186416 MCV 100.5 fL 0 Unknown COMPLETE BLOOD COUNT [id number] MCH 34.9 pg 0 Unknown COMPLETE BLOOD COUNT 5279628 MCHC 34.7 g/dL 0 Unknown COMPLETE BLOOD COUNT 4107561 PLATELET COUNT 254 10e9/L Unknown COMPLETE BLOOD COUNT 3361255 Mean Plt Volume 9.9 fL Unknown COMPLETE BLOOD COUNT 7904117 Neut Auto 63.3 % 0 Unknown COMPLETE BLOOD COUNT 2885882 Lymph Auto 24.5 % 04/07/20 20 Unknown COMPLETE BLOOD COUNT 6325810 Pitt Auto 8.4 % 0 Unknown COMPLETE BLOOD COUNT 5792086 RDW 12.8 % 0 Unknown COMPLETE BLOOD COUNT 6714186 Eos Auto 3.2 % 0 Unknown COMPLETE BLOOD COUNT 5351687 Baso Auto 0.6 % 0 Unknown COMPLETE BLOOD COUNT 7471898 Neutrophil Abs 3.99 10e9/L Unknown COMPLETE BLOOD COUNT 3314497 Lymphocyte Abs 1.54 10e9/L Unknown COMPLETE BLOOD COUNT 0687771 Monocyte Abs 0.53 10e9/L 03/24 Unknown COMPLETE BLOOD COUNT 8799039 Eosinophil Abs 0.20 10e9/L Unknown COMPLETE BLOOD COUNT 1352435 RDW-SD 47.6 fL 0 Unknown COMPLETE BLOOD COUNT 2082055 Basophil Abs 0.04 10e9/L 03/24 Unknown VITAMIN B 12 84984 VITAMIN B12 661 pg/mL 04/07/2020 Unkn own LIPID GROUP 75230 Cholesterol 168 mg/dL 09/30/2019 Unkno wn LIPID GROUP 11248 Triglyceride 141 mg/dL 09/30/2019 Unkn own LIPID GROUP 34824 HDL CHOLESTEROL 66 mg/dL 09/30/2019 U nknown LIPID GROUP 65392 Chol/HDL Ratio 2.55 ratio 09/30/2019 U nknown LIPID GROUP 52052 NON-HDL Chol 102 mg/dL 09/30/2019 Unkn own LIPID GROUP 43976 LDL Cholesterol 74 mg/dL 09/30/2019 U nknown FREE T4 85532 T4 Free 0.76 ng/dL 09/30/2019 Unknown THYROID STIMULATING HORMONE 68860 TSH 2.186 uIU/mL 09/30/2019 Unknown GFR CALC 0588547 GFR Afr Amr >60 mL/min 09/30/2019 Unknow n GFR CALC 9148605 GFR Non Afr Amr >60 mL/min 09/30/2019 Un known COMPREHENSIVE METABOLIC 33551 AST 14 U/L 2019 Unknown COMPREHENSIVE METABOLIC 20043 ALT 11 U/L 2019 Unknown COMPREHENSIVE METABOLIC 52017 BUN 15 mg/dL 2019 Unknown COMPREHENSIVE METABOLIC 81866 ALBUMIN 4.0 g/dL 2019 Unknown COMPREHENSIVE METABOLIC 93742 CHLORIDE 96 mmol/L 2019 Unknown COMPREHENSIVE METABOLIC 33851 Bili Total 0.9 mg/dL 09/29 Unknown COMPREHENSIVE METABOLIC 99273 ALK PHOS 72 U/L 2019 Unknown COMPREHENSIVE METABOLIC 37478 SODIUM 132 mmol/L 09/29 Unknown COMPREHENSIVE METABOLIC 48894 CREATININE 0.73 mg/dL 11/2019 Unknown COMPREHENSIVE METABOLIC 97475 CALCIUM 9.1 mg/dL 2019 Unknown COMPREHENSIVE METABOLIC 82797 POTASSIUM 4.6 mmol/L 09/29 Unknown COMPREHENSIVE METABOLIC 99202 Total Protein 6.4 g/dL Unknown COMPREHENSIVE METABOLIC 09334 Glucose 97 mg/dL 2019 Unknown COMPREHENSIVE METABOLIC 10075 Bicarbonate 25 mmol/L 11/2019 Unknown COMPREHENSIVE METABOLIC 33389 AGAP 11 mmol/L 2019 Unknown COMPLETE BLOOD COUNT 7428720 WBC 5.3 10e9/L 09/30/19 20 Unknown COMPLETE BLOOD COUNT 6471803 RBC 4.16 10e12/L 2019 Unknown COMPLETE BLOOD COUNT 1498576 HEMOGLOBIN 14.1 g/dL 09/30/19 20 Unknown COMPLETE BLOOD COUNT 6657318 HEMATOCRIT 42.6 % 09/30/19 20 Unknown COMPLETE BLOOD COUNT 1980490 MCV 102.4 fL 0 Unknown COMPLETE BLOOD COUNT 4101788 MCH 33.9 pg 0 Unknown COMPLETE BLOOD COUNT 1822861 MCHC 33.1 g/dL 0 Unknown COMPLETE BLOOD COUNT 4019618 PLATELET COUNT 273 10e9/L 11/2019 Unknown COMPLETE BLOOD COUNT 2751456 Mean Plt Volume 9.4 fL 11/2019 Unknown COMPLETE BLOOD COUNT 7009457 Neut Auto 57.3 % 0 Unknown COMPLETE BLOOD COUNT 0158478 Lymph Auto 29.3 % 09/30/19 20 Unknown COMPLETE BLOOD COUNT 1640899 Pitt Auto 7.6 % 0 Unknown COMPLETE BLOOD COUNT 5464558 RDW 13.8 % 0 Unknown COMPLETE BLOOD COUNT 2379191 Eos Auto 4.5 % 0 Unknown COMPLETE BLOOD COUNT 7090920 Baso Auto 1.3 % 0 Unknown COMPLETE BLOOD COUNT 1381446 Neutrophil Abs 3.04 10e9/L Unknown COMPLETE BLOOD COUNT 8743128 Lymphocyte Abs 1.55 10e9/L Unknown COMPLETE BLOOD COUNT 4231679 Monocyte Abs 0.40 10e9/L 11/2019 Unknown COMPLETE BLOOD COUNT 0133104 Eosinophil Abs 0.24 10e9/L Unknown COMPLETE BLOOD COUNT 6749482 Basophil Abs 0.07 10e9/L 11/2019 Unknown COMPLETE BLOOD COUNT 1228294 RDW-SD 50.7 fL 0 Unknown Procedures Procedure Codes Date ROUTINE VENIPUNCTURE CPT-4: 08221 04/30/2021 COMPREHEN METABOLIC PANEL CPT-4: 30965 04/30/2021 COMPLETE CBC W/AUTO DIFF WBC CPT-4: 19600 04/30/2021 UA W/MICR CPT-4: 08751 02/15/2021 URINE CULTURE/ COLONY COUNT CPT-4: 04956 02/02/2021 ROUTINE VENIPUNCTURE CPT-4: 01753 01/25/2021 COMPREHEN METABOLIC PANEL CPT-4: 76291 01/25/2021 COMPLETE CBC W/AUTO DIFF WBC CPT-4: 43709 01/25/2021 URINE CULTURE/ COLONY COUNT CPT-4: 49274 01/25/2021 URINALYSIS NONAUTO W/O SCOPE CPT-4: 68362 01/25/2021 ROUTINE VENIPUNCTURE CPT-4: 66391 07/20/2020 COMPREHEN METABOLIC PANEL CPT-4: 63192 07/20/2020 ASSAY OF FREE THYROXINE CPT-4: 41771 07/20/2020 ASSAY THYROID STIM HORMONE CPT-4: 01026 07/20/2020 COMPLETE CBC W/AUTO DIFF WBC CPT-4: 47278 07/20/2020 RBC SED RATE AUTOMATED CPT-4: 73215 07/20/2020 URINALYSIS NONAUTO W/O SCOPE CPT-4: 31957 04/30/2020 URINE CULTURE/ COLONY COUNT CPT-4: 87471 04/30/2020 ROUTINE VENIPUNCTURE CPT-4: 64266 04/07/2020 COMPLETE CBC W/AUTO DIFF WBC CPT-4: 97076 04/07/2020 VITAMIN B-12 CPT-4: 33754 04/07/2020 ASSAY OF GGT CPT-4: 77549 04/07/2020 ROUTINE VENIPUNCTURE CPT-4: 54931 09/30/2019 ASSAY OF FREE THYROXINE CPT-4: 73119 09/30/2019 ASSAY THYROID STIM HORMONE CPT-4: 78215 09/30/2019 COMPREHEN METABOLIC PANEL CPT-4: 90288 09/30/2019 COMPLETE CBC W/AUTO DIFF WBC CPT-4: 06385 09/30/2019 LIPID PANEL CPT-4: 95303 09/30/2019 Vital Signs Date Vital 01/25/2021 Blood Pressure 1: 102/68 Code: 8480-6 Heart Rate 1: 76 bpm Respiratory Rate: 20 bpm SpO2: 100% Temperature: 36.9 (C) / 98.5 (F) We ight: 87 lbs Code: 88883-0 12/30/2020 Blood Pressure 1: 134/80 Code: 8480-6 BMI: 14.1 Code: 29052-9 Heart Rate 1: 72 bpm Height: 5'5" Code: 8302-2 Respiratory Rate: 18 bpm SpO2: 97% Temperature: 36.6 (C) / 97.8 (F) Weight: 85 lbs Code: 33606-1 11/10/2020 Blood Pressure 1: 130/74 Code: 8480-6 Heart Rate 1: 56 bpm Respiratory Rate: 20 bpm SpO2: 98% Temperature: 36.3 (C) / 97.4 (F) We ight: 85 lbs Code: 99145-4 07/29/2020 Blood Pressure 1: 121/65 Code: 8480-6 BMI: 14.3 Code: 72355-2 Heart Rate 1: 58 bpm Height: 5'5" Code: 8302-2 Respiratory Rate: 15 bpm SpO2: 98% Temperature: 36.9 (C) / 98.4 (F) Weight: 86 lbs Code: 37117-3 07/20/2020 Blood Pressure 1: 123/69 Code: 8480-6 Heart Rate 1: 68 bpm Respiratory Rate: 15 bpm SpO2: 99% Temperature: 36.6 (C) / 97.8 (F) We ight: 83 lbs Code: 91437-3 04/30/2020 Blood Pressure 1: 128/82 Code: 8480-6 Heart Rate 1: 68 bpm Respiratory Rate: 20 bpm SpO2: 95% Temperature: 36.5 (C) / 97.7 (F) We ight: 91 lbs Code: 22818-3 04/09/2020 Blood Pressure 1: 130/78 Code: 8480-6 Heart Rate 1: 68 bpm Respiratory Rate: 20 bpm SpO2: 99% Temperature: 36.3 (C) / 97.4 (F) We ight: 90 lbs Code: 93156-9 11/22/2019 Temperature: 36.3 (C) / 97.3 (F) 09/10/2019 Blood Pressure 1: 128/72 Code: 8480-6 BMI: 15.6 Code: 17391-6 Heart Rate 1: 68 bpm Height: 5'5" Code: 8302-2 Respiratory Rate: 20 bpm SpO2: 97% Temperature: 36.6 (C) / 97.9 (F) Weight: 94 lbs Code: 03210-6 Functional Status No Functional Status data Reason [...] R53.83] Diagnosis: Blood loss anemia[ICD10: D50.0] Ericka PEPPERBoxever CPT-4: 10082 04/30/2021 ([id number]) NURSE/OUTPATIENT VISIT EST Diagnosis: Urinary tract infection[ICD10: N39.0] Ericka PEPPERER [employer] CPT-4: 89522 02/02/2021 ([id number]) OFFICE/OUTPATIENT VISIT EST Diagnosis: Fatigue[ICD10: R53.83] Diagnosis: Blood loss anemia[ICD10: D50.0] Diagnosis: Coronary artery disease[ICD10: I25.10] Diagnosis: Hematuria[ICD10: R31.9] Ericka Milan [employer]AN[employer] CHANEL [employer] CPT-4: 30230 01/25/2021 ([id number]) OFFICE/OUTPATIENT VISIT EST Diagnosis: GERD (gastroesophageal reflux disease)[ICD10: K21.9] Diagnosis: Duodenal ulcer[ICD10: K26.9] Diagnosis: Coronary artery disease[ICD10: I25.10] Diagnosis: Anxiety[ICD10: F41.9] Diagnosis: Blood loss anemia[ICD10: D50.0] Ericka MCCORMICK [facility] CPT-4: 56681 12/30/2020 ([id number]) NURSE/OUTPATIENT VISIT EST Diagnosis: Edema[ICD10: R60.9] Ericka MCCORMICK [facility] CPT-4: 02551 12/21/2020 ([id number]) OFFICE/OUTPATIENT VISIT EST Diagnosis: Coronary artery disease[ICD10: I25.10] Diagnosis: Essential (primary) hypertension[ICD10: I10] Diagnosis: Stress reaction[ICD10: F43.0] Diagnosis: Insomnia[ICD10: G47.00] Diagnosis: Pulmonary nodule[ICD10: R91.1] [facility] CPT-[facility]: 87646 11/10/2020 ([id number]) NO CHARGE Diagnosis: Mass of upper lobe of right lung[ICD10: R91.8] Ericka MCCORMICK [facility] CPT-4: 66692 07/29/2020 ([id number]) OFFICE/OUTPATIENT VISIT EST Diagnosis: Fatigue[ICD10: R53.83] Diagnosis: Lymphadenopathy of head and neck[ICD10: R59.1] Diagnosis: Weight loss, non-intentional[ICD10: R63.4] Diagnosis: History of melanoma[ICD10: Z85.820] Diagnosis: Skin lesion[ICD10: L98.9] Sara Aguila ERICKA NUNEZ [facility] CPT-4: 81951 07/20/2020 ([id number]) OFFICE/OUTPATIENT VISIT EST Diagnosis: Urinary tract infection[ICD10: N39.0] Meena Ferreiradi [facility] C[facility]: 23663 04/30/2020 ([id number]) OFFICE/OUTPATIENT VISIT EST Diagnosis: Dizziness[ICD10: R42] Diagnosis: Depressed mood with feeling of loneliness[ICD10: F32.9] Diagnosis: Insomnia[ICD10: G47.00] Ericka CHANEL [employer] CPT-4: 56436 04/09/2020 ([id number]) NURSE/OUTPATIENT VISIT EST Diagnosis: Coronary artery disease[ICD10: I25.10] Diagnosis: Fatigue[ICD10: R53.83] Diagnosis: Essential (primary) hypertension[ICD10: I10] Ericka Anny MCCORMICK [employer] CPT-4: 54653 04/07/2020 ([id number]) OFFICE/OUTPATIENT VISIT EST Diagnosis: Fatigue[ICD10: R53.83] Meena Li [facility] CPT-4: 64969 11/22/2019 ([id number]) NURSE/OUTPATIENT VISIT EST Diagnosis: Essential (primary) hypertension[ICD10: I10] Diagnosis: Coronary artery disease[ICD10: I25.10] Diagnosis: Encounter for general adult medical examination with abnormal findings[ICD10: Z00.01] Ericka Anny MCCORMICK [employer] CPT-4: 61322 09/30/2019 ([id number]) OFFICE/OUTPATIENT VISIT NEW Diagnosis: Essential (primary) hypertension[ICD10: I10] Diagnosis: Coronary artery disease[ICD10: I25.10] Diagnosis: Aortic valve stenosis with insufficiency[ICD10: I35.2] Ericka Anny MCCORMICK [employer] CPT-4: 05743 09/10/2019 Plan of Care Planned Activity Notes Codes Status Date App[facility]ment: [facility] [phone] [facility] [place] [facility] CANCELED 03/10/2021 Appointment: [facility]orm[facility] [address] [facility] [place] patient unable to leave urine CANCELED Appointment: [facility] [phone] [facility] [place] CANCELED 02/02/2021 Appointment: Ericka Mccormick WPtel: [address] [place], [place] [phone] UA 02/02/2021 Care Plan: UA W/MICR ADD ON ORDER LOINC : 45334-4 Pending 01/26/2021 Visit Diagnosis Plan: Hematuria Discussion: Culture ur ine ICD-9 : 599.70 ICD-10 : R31.9 01/25/2021 Visit Diagnosis Plan: Blood loss anemia Discussion: Ch real CBC now ICD-9 : 280.0 ICD-10 : D50.0 01/25/2021 Appointment: Ericka Mccormick WPtel: [address] [place], [place] [phone] ACUTE ILLNESS 01/25/2021 Appointment: Sara [facility]ila [facility] [phone] [facility] [place] CANCELED 01/01/2021 Visit [...] : K21.9 12/30/2020 Appointment: Ericka Mccormick WPtel: [address] [place], [place] [phone] FOLLOW UP 12/30/2020 Appointment: Ericka Mccormick WPtel: [address] [place], [place] [phone] NURSE SERVICES 12/21/2020 Visit Diagnosis Plan: Insomnia [...] F43.0 11/10/2020 Appointment: [facility]ick [facility] [phone] [facility] [place] FO[facility] 11/10/2020 Patient Education: trazodone- [employer] Coupon [phone] [email or web address]/[email or web address] Completed 11/10/2020 Visit Diagnosis Plan: Mass of upper lobe of right lung Discussion: CT scan of lung results discussed with patient and told this looks like cancer Agrees to see pulmonology to see if will be amenable to bronchoscopy to get cells/washings ICD-9 : 786.6 ICD-10 : R91.8 07/29/2020 Appointment: [facility] [phone] [facility] [facility] IN 07/29/2020 Care Plan: Referral Order SNOMED-CT : 30 [id number] Pending 07/29/2020 Care Plan: CT SFT TSUE NCK W/O & W/DYE L OINC : 87609-5 Pending 07/21/2020 Visit Diagnosis Plan: Fatigue Discussion: [...] 07/20/2020 Appointment: Mingo Sara WPtel: [address] ACUTE ILLNESS 07/20/2020 Patient Education: Patient [...] ICD-10 : N39.0 04/30/2020 Appointment: Meena Li [address] [place] [address] ACUTE ILLNESS 04/30/2020 Appointment: Meena Li [address] [place] [address] 04/21/2020 1020---patient needed seen fo r appointment [...] : 311 ICD-10 : F32.9 04/09/2020 Appointment: Eircka Mccormick WPtel: [phone] FOLLOW UP 04/09/2020 Care Plan: COMPREHEN METABOLIC PANEL [place] : 06718-1 Pending 04/09/2020 Appointment: Ericka Mccormick WPtel: [address] [place], [place] [phone] [place] LAB 04/07/2020 Visit Diagnosis Plan: Fatigue Discussion: no other sym ptoms other than fatigue for 4 weeks so will update labs. order sent to [facility] for blood work and ua with c&s. instructed to call office with new or worsening symptoms. ICD-9 : 780.79 ICD-10 : R53.83 11/22/2019 Appointment: Meena Li [address] [place] [address] TELEMEDICINE 11/22/2019 Appointment: Ericka Mccormick WPtel: [address] [place] [address] US LAB 09/30/2019 Visit Diagnosis Plan: Coronary [...] I10 09/10/2019 Appointment: Ericka Mccormick WPtel: [address] [place] [address] NEW PATIENT 09/10/2019 Patient Education: carvedilol- [employer] Coupon [phone] [email or web address]/[email or web address] Completed 09/10/2019 Appointment: Ericka Mccorimck WPtel: [address] [place], [place] [address] RESCHEDULED 08/20/2019 Appointment: Ericka Mccormick WPtel: [phone] [id number] [place] CANCELED 07/22/2019 Referral: Vikram Maguire WPtel: [address] [facility] [address] [id number] [place] Referral Appointment Requested Instructions No Instructions Medical Equipment No Medical Equipment data Health Concerns Section Health Concerns data not found Goals Section Goals data not found Interventions Section Interventions data not found Health Status Evaluations/Outcomes Section Health Status Evaluations/Outcomes data not found Advance Directives No Advance Directive data
--- OUTSIDE RECORDS SUMMARY | 2021-05-18 09:20 | XMS REPORT | CCD ---
Author Author Erica Mccormick D.O. Organization ERICKA MCCORMICK DO [facility] Address [address] [place] [address] Phone Care Team Providers Care Radiation Protection Engineer Name Role Phone PP Unavailable CCM Unavailable Summary Purpose Interface Exchange Insurance Providers Payer name Policy type / Coverage type Covered democrat ID Effective Begin Date Effective End Date WPS MEDICARE PART [place] Medicare Part B [id number] Unknown Unknown [employer]UE [place] [employer] [place] MEDIC[place] SUPP Medicare Part B X [id number] Unknown Unknown Family History Family History data not found Social History Social History Element Codes Description Effective Dates Marital status Unknown 09/10/2019 Number of children Unknown 1 09/10/2019 Employment Unknown Retired 09/10/[address]: 2501902 Former smoker quit 201109/10/[address]: 770825 Currently drinks alcohol 09/09 Frequency of drinks SNOMED CT: 289714913 1-4 drinks per week Allergies, Adverse Reactions, [...] Fill Instructions tramadol 50 mg tablet RxNorm: 483934 1 Tablet(s) Oral t wo times a day as needed for pain 03/15/2021 No Stop Date Active ferrous sulfate 325 mg (65 mg iron) tablet RxNorm: 399698 Take 1 Tablet(s) Oral QD 01/28/2021 No Stop Date Active paroxetine 20 mg tablet RxNorm: 7532445 1 Tablet(s) Oral QD 021 01/20/2021 Inactive pantoprazole 20 mg tablet,delayed release RxNorm: 743120 1 Tablet(s) Oral two times a day 12/22/2020 03/21/2021 Inactive pantoprazole 20 mg tablet,delayed release RxNorm: 236635 1 Tablet(s) Oral two times a day 12/22/2020 12/22/2020 Inactive paroxetine 20 mg tablet RxNorm: 2256353 1 Tablet(s) Oral QD 021 12/15/2020 Inactive paroxetine 20 mg tablet RxNorm: 2865819 1 Tablet(s) Oral QD 021 12/15/2020 Inactive MagOx 400 mg (241.3 mg magnesium) tablet RxNorm: 509551 Take 1 Tablet(s) Oral every night at bedtime with melatonin 11/23/2020 01/24/2021 Inactive melatonin 3 mg tablet RxNorm: 754124 Take 1-2 Tablet(s) Oral every night at bedtime 11/18/2020 No Stop Date Active atorvastatin 40 mg tablet RxNorm: 112295 Take 1 Tablet( s) Oral every night at bedtime 11/10/2020 No Stop Date Active Plavix 75 mg tablet RxNorm: 799818 Take 1 Tablet(s) Oral QD No Stop Date Active trazodone 50 mg tablet RxNorm: 388527 Take 1-2 Tablet(s ) Oral QPM as needed for sleep 11/10/2020 11/22/2020 Inactive alprazolam 0.25 mg tablet RxNorm: 051478 1/2-1 Tablet(s ) Oral QPM as needed for sleep 08/03/2020 09/01/2020 Inactive alprazolam 0.25 mg tablet RxNorm: 139647 1/2-1 Tablet(s ) Oral QPM as needed for sleep 08/03/2020 08/02/2020 Inactive Aspirin Low Dose 81 mg tablet,delayed release RxNorm: 938077 1 Tablet(s) Oral QD 09/10/2019 No Stop Date Active losartan 25 mg tablet RxNorm: 538755 1 Tablet(s) Oral QD 09/10/2019 No Stop Date Active carvedilol 6.25 mg tablet RxNorm: 585488 1 Tablet(s) Oral two t imes a day 09/10/2019 11/09/2020 Inactive Fish Oil 1,000 mg (120 mg-180 mg) capsule RxNorm: 1 Caps ule(s) Oral QD 09/10/2019 11/25/2019 Inactive Medication Administered No Medication Administered data Immunizations No Immunization data Results Observation Observation Code Item Item Code Result Date S ervice Location UA W/MICR 57101 UA Protein TNP:Specimen Not Received Unknown UA W/MICR 62405 UA Hemoglobin TNP:Specimen Not Received 02/17/2021 Unknown UA W/MICR 46183 UA Glucose TNP:Specimen Not Received Unknown UA W/MICR 84208 UA Ketones TNP:Specimen Not Received Unknown UA W/MICR 61632 UA pH TNP:Specimen Not Received Unknown UA W/MICR 12667 U Spec [place] TNP:Specimen Not Received 02/17/2021 Unknown UA W/MICR 48709 UA Bilirubin TNP:Specimen Not Received 02/17/2021 Unknown UA W/MICR 25712 UA Leuk Esteras TNP:Specimen Not Receive d 02/17/2021 Unknown UA W/MICR 02589 UA Nitrite TNP:Specimen Not Received Unknown UA W/MICR 14373 UA WBC/hpf TNP:Specimen Not Received Unknown UA W/MICR 96264 UA RBC hpf TNP:Specimen Not Received Unknown UA W/MICR 54753 UA Protein TNP:Specimen Integrity 01/27 Unknown UA W/MICR 54941 UA Hemoglobin TNP:Specimen Integrity Unknown UA W/MICR 57711 UA Glucose TNP:Specimen Integrity 01/27 Unknown UA W/MICR 39745 UA Ketones TNP:Specimen Integrity 01/27 Unknown UA W/MICR 94925 UA pH TNP:Specimen Integrity 2020 Unknown UA W/MICR 49900 U Spec Warren TNP:Specimen Integrity 1 Unknown UA W/MICR 81030 UA Bilirubin TNP:Specimen Integrity 09/2020 Unknown UA W/MICR 93434 UA Leuk Esteras TNP:Specimen Integrity 01/27/2021 Unknown UA W/MICR 57805 UA Nitrite TNP:Specimen Integrity 01/27 Unknown UA W/MICR 73074 UA WBC/hpf TNP:Specimen Integrity 01/27 Unknown UA W/MICR 07768 UA RBC hpf TNP:Specimen Integrity 01/27 Unknown COMPLETE BLOOD COUNT [id number] WBC 6.1 10e9/L 01/26/20 21 Unknown COMPLETE BLOOD COUNT [id number] RBC 3.34 10e12/L 2020 Unknown COMPLETE BLOOD COUNT [id number] HEMOGLOBIN 8.8 g/dL 01/26/20 21 Unknown COMPLETE BLOOD COUNT [id number] HEMATOCRIT 28.5 % 01/26/20 21 Unknown COMPLETE BLOOD COUNT [id number] MCV 85.3 fL 1 Unknown COMPLETE BLOOD COUNT [id number] MCH 26.3 pg 1 Unknown COMPLETE BLOOD COUNT [id number] MCHC 30.9 g/dL 1 Unknown COMPLETE BLOOD COUNT [id number] PLATELET COUNT 268 10e9/L 07/2020 Unknown COMPLETE BLOOD COUNT [id number] Mean Plt Volume 8.7 fL 07/2020 Unknown COMPLETE BLOOD COUNT [id number] Neut Auto 67.7 % 1 Unknown COMPLETE BLOOD COUNT [id number] Lymph Auto 19.4 % 01/26/20 21 Unknown COMPLETE BLOOD COUNT [id number] Rains Auto 8.4 % 1 Unknown COMPLETE BLOOD COUNT [id number] RDW 16.7 % 1 Unknown COMPLETE BLOOD COUNT [id number] Eos Auto 3.8 % 1 Unknown COMPLETE BLOOD COUNT 4907010 Baso Auto 0.7 % 1 Unknown COMPLETE BLOOD COUNT [id number] Neutrophil Abs 4.13 10e9/L Unknown COMPLETE BLOOD COUNT [id number] Lymphocyte Abs 1.18 10e9/L Unknown COMPLETE BLOOD COUNT [id number] Monocyte Abs 0.51 10e9/L 07/2020 Unknown COMPLETE BLOOD COUNT [id number] Eosinophil Abs 0.23 10e9/L Unknown COMPLETE BLOOD COUNT [id number] RDW-SD 50.9 fL Unknown COMPLETE BLOOD COUNT [id number] Basophil Abs 0.04 10e9/L 07/2020 Unknown GFR CALC [id number] GFR Non Afr Amr >60 mL/min 01/25/2021 Un known GFR CALC 1169127 GFR Afr Amr >60 mL/min 01/25/2021 Unknow n COMPREHENSIVE METABOLIC 51368 AST 17 U/L 2020 Unknown COMPREHENSIVE METABOLIC 58780 ALT 13 U/L 2020 Unknown COMPREHENSIVE METABOLIC 29870 BUN 14 mg/dL 2020 Unknown COMPREHENSIVE METABOLIC 26714 ALBUMIN 4.1 g/dL 2020 Unknown COMPREHENSIVE METABOLIC 83778 CHLORIDE 102 mmol/L 01/25 Unknown COMPREHENSIVE METABOLIC 08239 Bili Total 0.4 mg/dL 01/25 Unknown COMPREHENSIVE METABOLIC 94152 ALK PHOS 85 U/L 2020 Unknown COMPREHENSIVE METABOLIC 22980 SODIUM 134 mmol/L 01/25 Unknown COMPREHENSIVE METABOLIC 89607 CREATININE 0.71 mg/dL 07/2020 Unknown COMPREHENSIVE METABOLIC 49740 CALCIUM 9.3 mg/dL 2020 Unknown COMPREHENSIVE METABOLIC 20062 POTASSIUM 4.3 mmol/L 01/25 Unknown COMPREHENSIVE METABOLIC 66513 Total Protein 7.0 g/dL Unknown COMPREHENSIVE METABOLIC 82424 Glucose 111 mg/dL 2020 Unknown COMPREHENSIVE METABOLIC 07323 Bicarbonate 24 mmol/L 07/2020 Unknown COMPREHENSIVE METABOLIC 85093 AGAP 8 mmol/L 2020 Unknown COMPREHENSIVE METABOLIC 80522 AST 16 U/L 2019 Unknown COMPREHENSIVE METABOLIC 61191 ALT 12 U/L 2019 Unknown COMPREHENSIVE METABOLIC 79157 BUN 13 mg/dL 2019 Unknown COMPREHENSIVE METABOLIC 33349 ALBUMIN 4.1 g/dL 2019 Unknown COMPREHENSIVE METABOLIC 18147 CHLORIDE 96 mmol/L 2019 Unknown COMPREHENSIVE METABOLIC 24239 Bili Total 1.1 mg/dL 04/09 Unknown COMPREHENSIVE METABOLIC 92940 ALK PHOS 80 U/L 2019 Unknown COMPREHENSIVE METABOLIC 87498 SODIUM 131 mmol/L 04/09 Unknown COMPREHENSIVE METABOLIC 08561 CREATININE 0.76 mg/dL 03/24 Unknown COMPREHENSIVE METABOLIC 86652 CALCIUM 9.0 mg/dL 2019 Unknown COMPREHENSIVE METABOLIC 30553 POTASSIUM 4.2 mmol/L 04/09 Unknown COMPREHENSIVE METABOLIC 21268 Total Protein 6.8 g/dL Unknown COMPREHENSIVE METABOLIC 78664 Glucose 101 mg/dL 2019 Unknown COMPREHENSIVE METABOLIC 92141 Bicarbonate 25 mmol/L 03/24 Unknown COMPREHENSIVE METABOLIC 95128 AGAP 10 mmol/L 2019 Unknown GFR CALC 6209330 GFR Non Afr Amr >60 mL/min 04/09/2020 Un known GFR CALC [id number] GFR Afr Amr >60 mL/min 04/09/2020 Unknow n GAMMA GLUTAMYL TRANSFERASE 00626 GGT 19 U/L Unknown COMPLETE BLOOD COUNT [id number] WBC 6.3 10e9/L 04/07/20 20 Unknown COMPLETE BLOOD COUNT [id number] RBC 4.36 10e12/L 2019 Unknown COMPLETE BLOOD COUNT 2835198 HEMOGLOBIN 15.2 g/dL 04/07/20 20 Unknown COMPLETE BLOOD COUNT [id number] HEMATOCRIT 43.8 % 04/07/20 20 Unknown COMPLETE BLOOD COUNT [id number] MCV 100.5 fL 0 Unknown COMPLETE BLOOD COUNT 4274070 MCH 34.9 pg 0 Unknown COMPLETE BLOOD COUNT 0115267 MCHC 34.7 g/dL 0 Unknown COMPLETE BLOOD COUNT 4605110 PLATELET COUNT 254 10e9/L Unknown COMPLETE BLOOD COUNT 5840075 Mean Plt Volume 9.9 fL Unknown COMPLETE BLOOD COUNT 1412077 Neut Auto 63.3 % 0 Unknown COMPLETE BLOOD COUNT [id number] Lymph Auto 24.5 % 04/07/20 20 Unknown COMPLETE BLOOD COUNT 0359402 Rains Auto 8.4 % 0 Unknown COMPLETE BLOOD COUNT 3798831 RDW 12.8 % 0 Unknown COMPLETE BLOOD COUNT 7820401 Eos Auto 3.2 % 0 Unknown COMPLETE BLOOD COUNT 3423787 Baso Auto 0.6 % 0 Unknown COMPLETE BLOOD COUNT 4303326 Neutrophil Abs 3.99 10e9/L Unknown COMPLETE BLOOD COUNT 2643461 Lymphocyte Abs 1.54 10e9/L Unknown COMPLETE BLOOD COUNT [id number] Monocyte Abs 0.53 10e9/L 03/24 Unknown COMPLETE BLOOD COUNT 4667815 Eosinophil Abs 0.20 10e9/L Unknown COMPLETE BLOOD COUNT 7044856 RDW-SD 47.6 fL 0 Unknown COMPLETE BLOOD COUNT [id number] Basophil Abs 0.04 10e9/L 03/24 Unknown VITAMIN B 12 85395 VITAMIN B12 661 pg/mL 04/07/2020 Unkn own LIPID GROUP 31213 Cholesterol 168 mg/dL 09/30/2019 Unkno wn LIPID GROUP 22341 Triglyceride 141 mg/dL 09/30/2019 Unkn own [facility] 96686 HDL CHOLESTEROL 66 mg/dL 09/30/2019 U nknown LIPID GROUP 38956 Chol/HDL Ratio 2.55 ratio 09/30/2019 U nknown LIPID GROUP 81178 NON-HDL Chol 102 mg/dL 09/30/2019 Unkn own L[facility] GROUP 21862 LDL Cholesterol 74 mg/dL 09/30/2019 U nknown FREE T4 07806 T4 Free 0.76 ng/dL 09/30/2019 Unknown THYROID STIMULATING HORMONE 48608 TSH 2.186 uIU/mL 09/30/2019 Unknown GFR CALC 5353413 GFR Non Afr Amr >60 mL/min 09/30/2019 Un known GFR CALC 8215735 GFR Afr Amr >60 mL/min 09/30/2019 Unknow n COMPREHENSIVE METABOLIC 06858 AST 14 U/L 2019 Unknown COMPREHENSIVE METABOLIC 63190 ALT 11 U/L 2019 Unknown COMPREHENSIVE METABOLIC 71789 BUN 15 mg/dL 2019 Unknown COMPREHENSIVE METABOLIC 88575 ALBUMIN 4.0 g/dL 2019 Unknown COMPREHENSIVE METABOLIC 34472 CHLORIDE 96 mmol/L 2019 Unknown COMPREHENSIVE METABOLIC 34992 Bili Total 0.9 mg/dL 09/29 Unknown COMPREHENSIVE METABOLIC 47671 ALK PHOS 72 U/L 2019 Unknown COMPREHENSIVE METABOLIC 89335 SODIUM 132 mmol/L 09/29 Unknown COMPREHENSIVE METABOLIC 16335 CREATININE 0.73 mg/dL 11/2019 Unknown COMPREHENSIVE METABOLIC 67619 CALCIUM 9.1 mg/dL 2019 Unknown COMPREHENSIVE METABOLIC 84227 POTASSIUM 4.6 mmol/L 09/29 Unknown COMPREHENSIVE METABOLIC 27714 Total Protein 6.4 g/dL Unknown COMPREHENSIVE METABOLIC 07356 Glucose 97 mg/dL 2019 Unknown COMPREHENSIVE METABOLIC 74030 Bicarbonate 25 mmol/L 11/2019 Unknown COMPREHENSIVE METABOLIC 22192 AGAP 11 mmol/L 2019 Unknown COMPLETE BLOOD COUNT 5898177 WBC 5.3 10e9/L 09/30/19 20 Unknown COMPLETE BLOOD COUNT 7772572 RBC 4.16 10e12/L 2019 Unknown COMPLETE BLOOD COUNT 4459537 HEMOGLOBIN 14.1 g/dL 09/30/19 20 Unknown COMPLETE BLOOD COUNT [id number] HEMATOCRIT 42.6 % 09/30/19 20 Unknown COMPLETE BLOOD COUNT 8638241 MCV 102.4 fL 0 Unknown COMPLETE BLOOD COUNT 0356820 MCH 33.9 pg 0 Unknown COMPLETE BLOOD COUNT 4187866 MCHC 33.1 g/dL 0 Unknown COMPLETE BLOOD COUNT 3462734 PLATELET COUNT 273 10e9/L 11/2019 Unknown COMPLETE BLOOD COUNT 4571079 Mean Plt Volume 9.4 fL 11/2019 Unknown COMPLETE BLOOD COUNT 8331707 Neut Auto 57.3 % 0 Unknown COMPLETE BLOOD COUNT 7719100 Lymph Auto 29.3 % 09/30/19 20 Unknown COMPLETE BLOOD COUNT 4405285 Rains Auto 7.6 % 0 Unknown COMPLETE BLOOD COUNT 2159492 RDW 13.8 % 0 Unknown COMPLETE BLOOD COUNT 6284398 Eos Auto 4.5 % 0 Unknown COMPLETE BLOOD COUNT 9659861 Baso Auto 1.3 % 0 Unknown COMPLETE BLOOD COUNT 3272341 Neutrophil Abs 3.04 10e9/L Unknown COMPLETE BLOOD COUNT 8436109 Lymphocyte Abs 1.55 10e9/L Unknown COMPLETE BLOOD COUNT 3371168 Monocyte Abs 0.40 10e9/L 11/2019 Unknown COMPLETE BLOOD COUNT 7358322 Eosinophil Abs 0.24 10e9/L Unknown COMPLETE BLOOD COUNT 2108570 RDW-SD 50.7 fL 0 Unknown COMPLETE BLOOD COUNT 9858384 Basophil Abs 0.07 10e9/L 06/0 11/2019 Unknown Procedures Procedure Codes Date ROUTINE VENIPUNCTURE CPT-4: 72299 04/30/2021 COMPREHEN METABOLIC PANEL CPT-4: 53755 04/30/2021 COMPLETE CBC W/AUTO DIFF WBC CPT-4: 77926 04/30/2021 UA W/MICR CPT-4: 00272 02/15/2021 URINE CULTURE/ COLONY COUNT CPT-4: 66782 02/02/2021 ROUTINE VENIPUNCTURE CPT-4: 53910 01/25/2021 COMPREHEN METABOLIC PANEL CPT-4: 90967 01/25/2021 COMPLETE CBC W/AUTO DIFF WBC CPT-4: 45376 01/25/2021 URINE CULTURE/ COLONY COUNT CPT-4: 47315 01/25/2021 URINALYSIS NONAUTO W/O SCOPE CPT-4: 99865 01/25/2021 ROUTINE VENIPUNCTURE CPT-4: 39170 07/20/2020 COMPREHEN METABOLIC PANEL CPT-4: 88483 07/20/2020 ASSAY OF FREE THYROXINE CPT-4: 01643 07/20/2020 ASSAY THYROID STIM HORMONE CPT-4: 14960 07/20/2020 COMPLETE CBC W/AUTO DIFF WBC CPT-4: 14253 07/20/2020 RBC SED RATE AUTOMATED CPT-4: 38865 07/20/2020 URINALYSIS NONAUTO W/O SCOPE CPT-4: 48157 04/30/2020 URINE CULTURE/ COLONY COUNT CPT-4: 20845 04/30/2020 ROUTINE VENIPUNCTURE CPT-4: 46674 04/07/2020 COMPLETE CBC W/AUTO DIFF WBC CPT-4: 19010 04/07/2020 VITAMIN B-12 CPT-4: 35492 04/07/2020 ASSAY OF GGT CPT-4: 36689 04/07/2020 ROUTINE VENIPUNCTURE CPT-4: 57479 09/30/2019 ASSAY OF FREE THYROXINE CPT-4: 07857 09/30/2019 ASSAY THYROID STIM HORMONE CPT-4: 96982 09/30/2019 COMPREHEN METABOLIC PANEL CPT-4: 07089 09/30/2019 COMPLETE CBC W/AUTO DIFF WBC CPT-4: 64196 09/30/2019 LIPID PANEL CPT-4: 42351 09/30/2019 Vital Signs Date Vital 01/25/2021 Blood Pressure 1: 102/68 Code: 8480-6 Heart Rate 1: 76 bpm Respiratory Rate: 20 bpm SpO2: 100% Temperature: 36.9 (C) / 98.5 (F) We ight: 87 lbs Code: 08150-0 12/30/2020 Blood Pressure 1: 134/80 Code: 8480-6 BMI: 14.1 Code: 74250-4 Heart Rate 1: 72 bpm Height: 5'5" Code: 8302-2 Respiratory Rate: 18 bpm SpO2: 97% Temperature: 36.6 (C) / 97.8 (F) Weight: 85 lbs Code: 95652-1 11/10/2020 Blood Pressure 1: 130/74 Code: 8480-6 Heart Rate 1: 56 bpm Respiratory Rate: 20 bpm SpO2: 98% Temperature: 36.3 (C) / 97.4 (F) We ight: 85 lbs Code: 46897-0 07/29/2020 Blood Pressure 1: 121/65 Code: 8480-6 BMI: 14.3 Code: 93280-3 Heart Rate 1: 58 bpm Height: 5'5" Code: 8302-2 Respiratory Rate: 15 bpm SpO2: 98% Temperature: 36.9 (C) / 98.4 (F) Weight: 86 lbs Code: 76352-5 07/20/2020 Blood Pressure 1: 123/69 Code: 8480-6 Heart Rate 1: 68 bpm Respiratory Rate: 15 bpm SpO2: 99% Temperature: 36.6 (C) / 97.8 (F) We ight: 83 lbs Code: 62708-9 04/30/2020 Blood Pressure 1: 128/82 Code: 8480-6 Heart Rate 1: 68 bpm Respiratory Rate: 20 bpm SpO2: 95% Temperature: 36.5 (C) / 97.7 (F) We ight: 91 lbs Code: 49773-6 04/09/2020 Blood Pressure 1: 130/78 Code: 8480-6 Heart Rate 1: 68 bpm Respiratory Rate: 20 bpm SpO2: 99% Temperature: 36.3 (C) / 97.4 (F) We ight: 90 lbs Code: 28684-7 11/22/2019 Temperature: 36.3 (C) / 97.3 (F) 09/10/2019 Blood Pressure 1: 128/72 Code: 8480-6 BMI: 15.6 Code: 85312-2 Heart Rate 1: 68 bpm Height: 5'5" Code: 8302-2 Respiratory Rate: 20 bpm SpO2: 97% Temperature: 36.6 (C) / 97.9 (F) Weight: 94 lbs Code: 29138-5 Functional Status No Functional Status data Reason [...] R53.83] Diagnosis: Blood loss anemia[ICD10: D50.0] Ericka PEPPEROnline Dealer CPT-4: 02244 04/30/2021 ([id number]) NURSE/OUTPATIENT VISIT EST Diagnosis: Urinary tract infection[ICD10: N39.0] Ericka PEPPERER [facility] CPT-4: 70702 02/02/2021 ([id number]) OFFICE/OUTPATIENT VISIT EST Diagnosis: Fatigue[ICD10: R53.83] Diagnosis: Blood loss anemia[ICD10: D50.0] Diagnosis: Coronary artery disease[ICD10: I25.10] Diagnosis: Hematuria[ICD10: R31.9] Ericka Milan BuxferSHANATNU CHANEL [facility] CPT-4: 03044 01/25/2021 ([id number]) OFFICE/OUTPATIENT VISIT EST Diagnosis: GERD (gastroesophageal reflux disease)[ICD10: K21.9] Diagnosis: Duodenal ulcer[ICD10: K26.9] Diagnosis: Coronary artery disease[ICD10: I25.10] Diagnosis: Anxiety[ICD10: F41.9] Diagnosis: Blood loss anemia[ICD10: D50.0] Ericka MCCORMICK [facility] CPT-4: 08341 12/30/2020 ([id number]) NURSE/OUTPATIENT VISIT EST Diagnosis: Edema[ICD10: R60.9] Ericka MCCORMICK [facility] CPT-4: 20573 12/21/2020 ([id number]) OFFICE/OUTPATIENT VISIT EST Diagnosis: Coronary artery disease[ICD10: I25.10] Diagnosis: Essential (primary) hypertension[ICD10: I10] Diagnosis: Stress reaction[ICD10: F43.0] Diagnosis: Insomnia[ICD10: G47.00] Diagnosis: Pulmonary nodule[ICD10: R91.1] [facility] CPT-[facility]: 72012 11/10/2020 ([id number]) NO CHARGE Diagnosis: Mass of upper lobe of right lung[ICD10: R91.8] Ericka MCCORMICK [facility] CPT-4: 94733 07/29/2020 ([id number]) OFFICE/OUTPATIENT VISIT EST Diagnosis: Fatigue[ICD10: R53.83] Diagnosis: Lymphadenopathy of head and neck[ICD10: R59.1] Diagnosis: Weight loss, non-intentional[ICD10: R63.4] Diagnosis: History of melanoma[ICD10: Z85.820] Diagnosis: Skin lesion[ICD10: L98.9] Sara Aguila ERICKA NUNEZ [facility] CPT-4: 04783 07/20/2020 ([id number]) OFFICE/OUTPATIENT VISIT EST Diagnosis: Urinary tract infection[ICD10: N39.0] Meena Ferreiradi DANKMIKI [facility] CPT-4: 56606 04/30/2020 ([id number]) OFFICE/OUTPATIENT VISIT EST Diagnosis: Dizziness[ICD10: R42] Diagnosis: Depressed mood with feeling of loneliness[ICD10: F32.9] Diagnosis: Insomnia[ICD10: G47.00] Ericka CHANEL [facility] CPT-4: 36152 04/09/2020 ([id number]) NURSE/OUTPATIENT VISIT EST Diagnosis: Coronary artery disease[ICD10: I25.10] Diagnosis: Fatigue[ICD10: R53.83] Diagnosis: Essential (primary) hypertension[ICD10: I10] Ericka Anny MCCORMICK [facility] CPT-4: 83121 04/07/2020 ([id number]) OFFICE/OUTPATIENT VISIT EST Diagnosis: Fatigue[ICD10: R53.83] Meena Li [facility] CPT-4: 13839 11/22/2019 ([id number]) NURSE/OUTPATIENT VISIT EST Diagnosis: Essential (primary) hypertension[ICD10: I10] Diagnosis: Coronary artery disease[ICD10: I25.10] Diagnosis: Encounter for general adult medical examination with abnormal findings[ICD10: Z00.01] Ericka Anny MCCORMICK [facility] CPT-4: 87179 09/30/2019 ([id number]) OFFICE/OUTPATIENT VISIT NEW Diagnosis: Essential (primary) hypertension[ICD10: I10] Diagnosis: Coronary artery disease[ICD10: I25.10] Diagnosis: Aortic valve stenosis with insufficiency[ICD10: I35.2] Ericka Anny MCCORMICK [facility] CPT-4: 12594 09/10/2019 Plan of Care Planned Activity Notes Codes Status Date App[facility]ment: [facility] [phone] [facility] [facility] by VC CANCELED 03/10/2021 Appointment: [facility]orm[facility] [phone] [facility] [facility] patient unable to leave urine CANCELED Appointment: [facility] [phone] [facility] [facility] CANCELED 02/02/2021 Appointment: Ericka Mccormick WPtel: [address] [place], [place] [phone] UA 02/02/2021 Care Plan: UA W/MICR ADD ON ORDER LOINC : 40212-9 Pending 01/26/2021 Visit Diagnosis Plan: Hematuria Discussion: Culture ur ine ICD-9 : 599.70 ICD-10 : R31.9 01/25/2021 Visit Diagnosis Plan: Blood loss anemia Discussion: Ch real CBC now ICD-9 : 280.0 ICD-10 : D50.0 01/25/2021 Appointment: Ericka Mccormick WPtel: [address] [place], [place] [phone] ACUTE ILLNESS 01/25/2021 Appointment: Sara [facility] [phone] [facility] [facility]ED 01/01/2021 Visit Diagnosis Plan: [...] : K21.9 12/30/2020 Appointment: Ericka Mccormick WPtel: [address] [place], [place] [phone] FOLLOW UP 12/30/2020 Appointment: Ericka Mccormick WPtel: [address] [place], [place] [phone] NURSE SERVICES 12/21/2020 Visit Diagnosis Plan: Insomnia [...] F43.0 11/10/2020 Appointment: [facility]ick [facility]el[facility] [phone] [facility] [facility] FO[facility] 11/10/2020 Patient Education: [email or web address]- [email or web address] Coupon [id number] [email or web address]/[email or web address] Completed 11/10/2020 Visit Diagnosis Plan: Mass of upper lobe of right lung Discussion: CT scan of lung results discussed with patient and told this looks like cancer Agrees to see pulmonology to see if will be amenable to bronchoscopy to get cells/washings ICD-9 : 786.6 ICD-10 : R91.8 07/29/2020 Appointment: [facility] [phone] [facility] [facility] IN 07/29/2020 Care Plan: Referral Order SNOMED-CT : [id number] Pending 07/29/2020 Care Plan: CT SFT TSUE NCK W/O & W/DYE L OINC : 61161-0 Pending 07/21/2020 Visit Diagnosis Plan: Fatigue Discussion: [...] 07/20/2020 Appointment: Mingo Sara WPtel: [phone] ACUTE ILLNESS 07/20/2020 Patient Education: Patient [...] ICD-10 : N39.0 04/30/2020 Appointment: Meena Li [address] [place] [address] ACUTE ILLNESS 04/30/2020 Appointment: Meena Li [address] [place] [address] 04/21/2020 1020---patient needed seen fo r appointment [...] : F32.9 04/09/2020 Appointment: Ericka Mccormick WPtel: [phone] FOLLOW UP 04/09/2020 Care Plan: COMPREHEN METABOLIC PANEL [place] : 00406-5 Pending 04/09/2020 Appointment: Ericka Mccormick WPtel: [address] [place], [place] [phone] US LAB 04/07/2020 Visit Diagnosis Plan: Fatigue Discussion: no other sym ptoms other than fatigue for 4 weeks so will update labs. order sent to [facility] for blood work and ua with c&s. instructed to call office with new or worsening symptoms. ICD-9 : 780.79 ICD-10 : R53.83 11/22/2019 Appointment: Meena Li [address] [place] [address] TELEMEDICINE 11/22/2019 Appointment: Ericka Mccormick WPtel: [address] [place] [address] US LAB 09/30/2019 Visit Diagnosis Plan: Coronary [...] : I10 09/10/2019 Appointment: Ericka Mccormick WPtel: [address] [place] [address] NEW PATIENT 09/10/2019 Patient Education: [email or web address]- [email or web address] Coupon [id number] [email or web address]/[email or web address] Completed 09/10/2019 Appointment: Ericka Mccormick WPtel: [address] [place], [place] [address] RESCHEDULED 08/20/2019 Appointment: Ericka Mccormick WPtel: [phone] [id number] [place] CANCELED 07/22/2019 Referral: Vikram Maguire WPtel: [address] [facility] [address] [id number] [place] Referral Appointment Requested Instructions No Instructions Medical Equipment No Medical Equipment data Health Concerns Section Health Concerns data not found Goals Section Goals data not found Interventions Section Interventions data not found Health Status Evaluations/Outcomes Section Health Status Evaluations/Outcomes data not found Advance Directives No Advance Directive data
--- OUTSIDE RECORDS SUMMARY | 2021-05-18 09:20 | XMS REPORT | CCD ---
Author Author Erica Mccormick D.O. Organization ERICKA MCCORMICK DO [facility] Address [address] [place] [address] Phone Care Team Providers Care Physician Asst Name Role Phone PP Unavailable CCM Unavailable Summary Purpose Interface Exchange Insurance Providers Payer name Policy type / Coverage type Covered alliance party ID Effective Begin Date Effective End Date WPS MEDICARE PART B [place] Medicare Part B [id number] Unknown Unknown [employer] [employer] [place] MEDIC[place] Medicare Part B X [id number] Unknown Unknown Family History Family History data not found Social History Social History Element Codes Description Effective Dates Marital status Unknown 09/10/2019 Number of children Unknown 1 09/10/2019 Employment Unknown Retired 09/10/[address]: 9030697 Former smoker quit 201109/10/[address]: 083216 Currently drinks alcohol 09/09 Frequency of drinks SNOMED CT: 869227140 1-4 drinks per week Allergies, Adverse Reactions, [...] Fill Instructions Cipro 250 mg tablet RxNorm: 201745 Take 1 Tablet(s) Oral Q12H 05/0705/09/2021 Active pantoprazole 20 mg tablet,delayed release RxNorm: 019459 1 Tablet(s) Oral two times a day 05/06/2021 11/01/2021 Active tramadol 50 mg tablet RxNorm: 638093 1 Tablet(s) Oral t wo times a day as needed for pain 03/15/2021 No Stop Date Active ferrous sulfate 325 mg (65 mg iron) tablet RxNorm: 129209 Take 1 Tablet(s) Oral QD 01/28/2021 05/04/2021 Inactive pantoprazole 20 mg tablet,delayed release RxNorm: 691934 1 Tablet(s) Oral two times a day 12/22/2020 12/22/2020 Inactive paroxetine 20 mg tablet RxNorm: 8250898 1 Tablet(s) Oral QD 021 05/04/2021 Inactive pantoprazole 20 mg tablet,delayed release RxNorm: 032007 1 Tablet(s) Oral two times a day 12/22/2020 12/22/2020 Inactive paroxetine 20 mg tablet RxNorm: 2640920 1 Tablet(s) Oral QD 021 12/15/2020 Inactive paroxetine 20 mg tablet RxNorm: 6457698 1 Tablet(s) Oral QD 021 12/15/2020 Inactive MagOx 400 mg (241.3 mg magnesium) tablet RxNorm: 862937 Take 1 Tablet(s) Oral every night at bedtime with melatonin 11/23/2020 01/24/2021 Inactive melatonin 3 mg tablet RxNorm: 800382 Take 1-2 Tablet(s) Oral every night at bedtime 11/18/2020 No Stop Date Active Plavix 75 mg tablet RxNorm: 341941 Take 1 Tablet(s) Oral QD 07/20/2 021 No Stop Date Active trazodone 50 mg tablet RxNorm: 174619 Take 1-2 Tablet(s ) Oral QPM as needed for sleep 11/10/2020 11/22/2020 Inactive atorvastatin 40 mg tablet RxNorm: 163312 Take 1 Tablet( s) Oral every night at bedtime 11/10/2020 05/04/2021 Inactive alprazolam 0.25 mg tablet RxNorm: 945471 1/2-1 Tablet(s ) Oral QPM as needed for sleep 08/03/2020 09/01/2020 Inactive alprazolam 0.25 mg tablet RxNorm: 354722 1/2-1 Tablet(s ) Oral QPM as needed for sleep 08/03/2020 08/02/2020 Inactive Aspirin Low Dose 81 mg tablet,delayed release RxNorm: 596998 1 Tablet(s) Oral QD 09/10/2019 No Stop Date Active carvedilol 6.25 mg tablet RxNorm: 839124 1 Tablet(s) Oral two t imes a day 09/10/2019 11/09/2020 Inactive Fish Oil 1,000 mg (120 mg-180 mg) capsule RxNorm: 1 Caps ule(s) Oral QD 09/10/2019 11/25/2019 Inactive losartan 25 mg tablet RxNorm: 733890 1 Tablet(s) Oral QD 09/10/2019 0 05/04/2021 Inactive Medication Administered No Medication Administered data Immunizations No Immunization data Results Observation Observation Code Item Item Code Result Date S [facility] Location GFR CALC [id number] GFR Non Afr Amr >60 mL/min 04/30/2021 Un known GFR CALC [id number] GFR Afr Amr >60 mL/min 04/30/2021 Unknow n COMPREHENSIVE METABOLIC 01117 AST 13 U/L 2021 Unknown COMPREHENSIVE METABOLIC 95519 ALT 12 U/L 2021 Unknown COMPREHENSIVE METABOLIC 88655 BUN 15 mg/dL 2021 Unknown COMPREHENSIVE METABOLIC 80742 ALBUMIN 4.0 g/dL 2021 Unknown COMPREHENSIVE METABOLIC 00101 CHLORIDE 103 mmol/L 04/30 Unknown COMPREHENSIVE METABOLIC 07425 Bili Total 0.4 mg/dL 04/30 Unknown COMPREHENSIVE METABOLIC 47514 ALK PHOS 75 U/L 2021 Unknown COMPREHENSIVE METABOLIC 54800 SODIUM 136 mmol/L 04/30 Unknown COMPREHENSIVE METABOLIC 33776 CREATININE 0.69 mg/dL 10/2021 Unknown COMPREHENSIVE METABOLIC 67066 CALCIUM 8.9 mg/dL 2021 Unknown COMPREHENSIVE METABOLIC 13861 POTASSIUM 4.3 mmol/L 04/30 Unknown COMPREHENSIVE METABOLIC 27090 Total Protein 6.7 g/dL Unknown COMPREHENSIVE METABOLIC 80299 Glucose 94 mg/dL 2021 Unknown COMPREHENSIVE METABOLIC 57149 Bicarbonate 25 mmol/L 10/2021 Unknown COMPREHENSIVE METABOLIC 57389 AGAP 8 mmol/L 2021 Unknown COMPLETE BLOOD COUNT [id number] WBC 4.6 10e9/L 04/30/19 22 Unknown COMPLETE BLOOD COUNT [id number] RBC 3.76 10e12/L 2021 Unknown COMPLETE BLOOD COUNT 8160509 HEMOGLOBIN 10.9 g/dL 04/30/19 22 Unknown COMPLETE BLOOD COUNT [id number] HEMATOCRIT 35.3 % 04/30/19 22 Unknown COMPLETE BLOOD COUNT [id number] MCV 93.9 fL 2 Unknown COMPLETE BLOOD COUNT [id number] MCH 29.0 pg 2 Unknown COMPLETE BLOOD COUNT [id number] MCHC 30.9 g/dL 2 Unknown COMPLETE BLOOD COUNT [id number] PLATELET COUNT 254 10e9/L 10/2021 Unknown COMPLETE BLOOD COUNT [id number] Mean Plt Volume 9.0 fL 10/2021 Unknown COMPLETE BLOOD COUNT [id number] Neut Auto 73.2 % 2 Unknown COMPLETE BLOOD COUNT [id number] Lymph Auto 14.3 % 04/30/19 22 Unknown COMPLETE BLOOD COUNT 1350152 Benson Auto 8.1 % 2 Unknown COMPLETE BLOOD COUNT [id number] RDW 17.8 % 2 Unknown COMPLETE BLOOD COUNT [id number] Eos Auto 3.7 % 2 Unknown COMPLETE BLOOD COUNT 8338363 Baso Auto 0.7 % 2 Unknown COMPLETE BLOOD COUNT [id number] Neutrophil Abs 3.37 10e9/L Unknown COMPLETE BLOOD COUNT [id number] Lymphocyte Abs 0.66 10e9/L Unknown COMPLETE BLOOD COUNT [id number] Monocyte Abs 0.37 10e9/L 10/2021 Unknown COMPLETE BLOOD COUNT [id number] Eosinophil Abs 0.17 10e9/L Unknown COMPLETE BLOOD COUNT [id number] RDW-SD 59.5 fL Unknown COMPLETE BLOOD COUNT [id number] Basophil Abs 0.03 10e9/L 10/2021 Unknown UA W/MICR 81992 UA Protein TNP:Specimen Not Received Unknown UA W/MICR 89066 UA Hemoglobin TNP:Specimen Not Received 02/17/2021 Unknown UA W/MICR 90174 UA Glucose TNP:Specimen Not Received Unknown UA W/MICR 52296 UA Ketones TNP:Specimen Not Received Unknown UA W/MICR 60628 UA pH TNP:Specimen Not Received Unknown UA W/MICR 16584 U Spec [place] TNP:Specimen Not Received 02/17/2021 Unknown UA W/MICR 34530 UA Bilirubin TNP:Specimen Not Received 02/17/2021 Unknown UA W/MICR 97807 UA Leuk [place]ster[place] TNP:Specimen Not Receive d 02/17/2021 Unknown UA W/MICR 38867 UA Nitrite TNP:Specimen Not Received Unknown UA W/MICR 97705 UA WBC/hpf TNP:Specimen Not Received Unknown UA W/MICR 04197 UA RBC hpf TNP:Specimen Not Received Unknown UA W/MICR 91911 UA Protein TNP:Specimen Integrity 01/27 Unknown UA W/MICR 66307 UA Hemoglobin TNP:Specimen Integrity Unknown UA W/MICR 52010 UA Glucose TNP:Specimen Integrity 01/27 Unknown UA W/MICR 09356 UA Ketones TNP:Specimen Integrity 01/27 Unknown UA W/MICR 93844 UA pH TNP:Specimen Integrity 2020 Unknown UA W/MICR 37506 U Spec [place] TNP:Specimen Integrity 1 Unknown UA W/MICR 09659 UA Bilirubin TNP:Specimen Integrity 09/2020 Unknown UA W/MICR 55211 UA Leuk [place] TNP:Specimen Integrity 01/27/2021 Unknown UA W/MICR 93753 UA Nitrite TNP:Specimen Integrity 01/27 Unknown UA W/MICR 38100 UA WBC/hpf TNP:Specimen Integrity 01/27 Unknown UA W/MICR 21419 UA RBC hpf TNP:Specimen Integrity 01/27 Unknown COMPLETE BLOOD COUNT [id number] WBC 6.1 10e9/L 01/26/20 21 Unknown COMPLETE BLOOD COUNT [id number] RBC 3.34 10e12/L 2020 Unknown COMPLETE BLOOD COUNT [id number] HEMOGLOBIN 8.8 g/dL 01/26/20 21 Unknown COMPLETE BLOOD COUNT 0540022 HEMATOCRIT 28.5 % 01/26/20 21 Unknown COMPLETE BLOOD COUNT [id number] MCV 85.3 fL 1 Unknown COMPLETE BLOOD COUNT 4852012 MCH 26.3 pg 1 Unknown COMPLETE BLOOD COUNT [id number] MCHC 30.9 g/dL 1 Unknown COMPLETE BLOOD COUNT [id number] PLATELET COUNT 268 10e9/L 07/2020 Unknown COMPLETE BLOOD COUNT [id number] Mean Plt Volume 8.7 fL 07/2020 Unknown COMPLETE BLOOD COUNT [id number] Neut Auto 67.7 % 1 Unknown COMPLETE BLOOD COUNT [id number] Lymph Auto 19.4 % 01/26/20 21 Unknown COMPLETE BLOOD COUNT [id number] Benson Auto 8.4 % 1 Unknown COMPLETE BLOOD COUNT [id number] RDW 16.7 % 1 Unknown COMPLETE BLOOD COUNT 6166118 Eos Auto 3.8 % 1 Unknown COMPLETE BLOOD COUNT 6234120 Baso Auto 0.7 % 1 Unknown COMPLETE BLOOD COUNT [id number] Neutrophil Abs 4.13 10e9/L Unknown COMPLETE BLOOD COUNT [id number] Lymphocyte Abs 1.18 10e9/L Unknown COMPLETE BLOOD COUNT [id number] Monocyte Abs 0.51 10e9/L 07/2020 Unknown COMPLETE BLOOD COUNT [id number] Eosinophil Abs 0.23 10e9/L Unknown COMPLETE BLOOD COUNT [id number] RDW-SD 50.9 fL 1 Unknown COMPLETE BLOOD COUNT [id number] Basophil Abs 0.04 10e9/L 07/2020 Unknown GFR CALC 2531886 GFR Non Afr Amr >60 mL/min 01/25/2021 Un known GFR CALC 0433494 GFR Afr Amr >60 mL/min 01/25/2021 Unknow n COMPREHENSIVE METABOLIC 02451 AST 17 U/L 2020 Unknown COMPREHENSIVE METABOLIC 37468 ALT 13 U/L 2020 Unknown COMPREHENSIVE METABOLIC 50050 BUN 14 mg/dL 2020 Unknown COMPREHENSIVE METABOLIC 74676 ALBUMIN 4.1 g/dL 2020 Unknown COMPREHENSIVE METABOLIC 76378 CHLORIDE 102 mmol/L 01/25 Unknown COMPREHENSIVE METABOLIC 58140 Bili Total 0.4 mg/dL 01/25 Unknown COMPREHENSIVE METABOLIC 38570 ALK PHOS 85 U/L 2020 Unknown COMPREHENSIVE METABOLIC 10314 SODIUM 134 mmol/L 01/25 Unknown COMPREHENSIVE METABOLIC 18055 CREATININE 0.71 mg/dL 07/2020 Unknown COMPREHENSIVE METABOLIC 25962 CALCIUM 9.3 mg/dL 2020 Unknown COMPREHENSIVE METABOLIC 35414 POTASSIUM 4.3 mmol/L 01/25 Unknown COMPREHENSIVE METABOLIC 10806 Total Protein 7.0 g/dL Unknown COMPREHENSIVE METABOLIC 95720 Glucose 111 mg/dL 2020 Unknown COMPREHENSIVE METABOLIC 57434 Bicarbonate 24 mmol/L 07/2020 Unknown COMPREHENSIVE METABOLIC 21229 AGAP 8 mmol/L 2020 Unknown COMPREHENSIVE METABOLIC 96287 AST 16 U/L 2019 Unknown COMPREHENSIVE METABOLIC 79669 ALT 12 U/L 2019 Unknown COMPREHENSIVE METABOLIC 01499 BUN 13 mg/dL 2019 Unknown COMPREHENSIVE METABOLIC 63668 ALBUMIN 4.1 g/dL 2019 Unknown COMPREHENSIVE METABOLIC 08075 CHLORIDE 96 mmol/L 2019 Unknown COMPREHENSIVE METABOLIC 44741 Bili Total 1.1 mg/dL 04/09 Unknown COMPREHENSIVE METABOLIC 46858 ALK PHOS 80 U/L 2019 Unknown COMPREHENSIVE METABOLIC 53671 SODIUM 131 mmol/L 04/09 Unknown COMPREHENSIVE METABOLIC 85051 CREATININE 0.76 mg/dL 03/24 Unknown COMPREHENSIVE METABOLIC 92438 CALCIUM 9.0 mg/dL 2019 Unknown COMPREHENSIVE METABOLIC 35588 POTASSIUM 4.2 mmol/L 04/09 Unknown COMPREHENSIVE METABOLIC 93836 Total Protein 6.8 g/dL Unknown COMPREHENSIVE METABOLIC 26038 Glucose 101 mg/dL 2019 Unknown COMPREHENSIVE METABOLIC 74566 Bicarbonate 25 mmol/L 03/24 Unknown COMPREHENSIVE METABOLIC 08941 AGAP 10 mmol/L 2019 Unknown GFR CALC 8425375 GFR Non Afr Amr >60 mL/min 04/09/2020 Un known GFR CALC [id number] GFR Afr Amr >60 mL/min 04/09/2020 Unknow n GAMMA GLUTAMYL TRANSFERASE 01210 GGT 19 U/L Unknown COMPLETE BLOOD COUNT [id number] WBC 6.3 10e9/L 04/07/20 20 Unknown COMPLETE BLOOD COUNT [id number] RBC 4.36 10e12/L 2019 Unknown COMPLETE BLOOD COUNT 1070128 HEMOGLOBIN 15.2 g/dL 04/07/20 20 Unknown COMPLETE BLOOD COUNT [id number] HEMATOCRIT 43.8 % 04/07/20 20 Unknown COMPLETE BLOOD COUNT [id number] MCV 100.5 fL 0 Unknown COMPLETE BLOOD COUNT [id number] MCH 34.9 pg 0 Unknown COMPLETE BLOOD COUNT 9998349 MCHC 34.7 g/dL 0 Unknown COMPLETE BLOOD COUNT 7155532 PLATELET COUNT 254 10e9/L Unknown COMPLETE BLOOD COUNT 0669282 Mean Plt Volume 9.9 fL Unknown COMPLETE BLOOD COUNT 4681883 Neut Auto 63.3 % 0 Unknown COMPLETE BLOOD COUNT [id number] Lymph Auto 24.5 % 04/07/20 20 Unknown COMPLETE BLOOD COUNT 2559347 Benson Auto 8.4 % 0 Unknown COMPLETE BLOOD COUNT 9452642 RDW 12.8 % 0 Unknown COMPLETE BLOOD COUNT 5143000 Eos Auto 3.2 % 0 Unknown COMPLETE BLOOD COUNT 5551303 Baso Auto 0.6 % 0 Unknown COMPLETE BLOOD COUNT [id number] Neutrophil Abs 3.99 10e9/L Unknown COMPLETE BLOOD COUNT 3672146 Lymphocyte Abs 1.54 10e9/L Unknown COMPLETE BLOOD COUNT [id number] Monocyte Abs 0.53 10e9/L 03/24 Unknown COMPLETE BLOOD COUNT [id number] Eosinophil Abs 0.20 10e9/L Unknown COMPLETE BLOOD COUNT [id number] RDW-SD 47.6 fL 0 Unknown COMPLETE BLOOD COUNT 3668201 Basophil Abs 0.04 10e9/L 03/24 Unknown VITAMIN B 12 62501 VITAMIN B12 661 pg/mL 04/07/2020 Unkn own LIPID GROUP 30440 Cholesterol 168 mg/dL 09/30/2019 Unkno wn LIPID GROUP 40237 Triglyceride 141 mg/dL 09/30/2019 Unkn own L[facility] GROUP 81070 HDL CHOLESTEROL 66 mg/dL 09/30/2019 U nknown LIPID GROUP 33082 Chol/HDL Ratio 2.55 ratio 09/30/2019 U nknown LIPID GROUP 88738 NON-HDL Chol 102 mg/dL 09/30/2019 Unkn own LIPID GROUP 90875 LDL Cholesterol 74 mg/dL 09/30/2019 U nknown FREE T4 75994 T4 Free 0.76 ng/dL 09/30/2019 Unknown THYROID STIMULATING HORMONE 49507 TSH 2.186 uIU/mL 09/30/2019 Unknown GFR CALC 7537032 GFR Non Afr Amr >60 mL/min 09/30/2019 Un known GFR CALC 6392502 GFR Afr Amr >60 mL/min 09/30/2019 Unknow n COMPREHENSIVE METABOLIC 76816 AST 14 U/L 2019 Unknown COMPREHENSIVE METABOLIC 62928 ALT 11 U/L 2019 Unknown COMPREHENSIVE METABOLIC 44346 BUN 15 mg/dL 2019 Unknown COMPREHENSIVE METABOLIC 75340 ALBUMIN 4.0 g/dL 2019 Unknown COMPREHENSIVE METABOLIC 81529 CHLORIDE 96 mmol/L 2019 Unknown COMPREHENSIVE METABOLIC 25630 Bili Total 0.9 mg/dL 09/29 Unknown COMPREHENSIVE METABOLIC 87613 ALK PHOS 72 U/L 2019 Unknown COMPREHENSIVE METABOLIC 13195 SODIUM 132 mmol/L 09/29 Unknown COMPREHENSIVE METABOLIC 44186 CREATININE 0.73 mg/dL 11/2019 Unknown COMPREHENSIVE METABOLIC 16900 CALCIUM 9.1 mg/dL 2019 Unknown COMPREHENSIVE METABOLIC 10267 POTASSIUM 4.6 mmol/L 09/29 Unknown COMPREHENSIVE METABOLIC 57716 Total Protein 6.4 g/dL Unknown COMPREHENSIVE METABOLIC 42725 Glucose 97 mg/dL 2019 Unknown COMPREHENSIVE METABOLIC 11030 Bicarbonate 25 mmol/L 11/2019 Unknown COMPREHENSIVE METABOLIC 09158 AGAP 11 mmol/L 2019 Unknown COMPLETE BLOOD COUNT 9176583 WBC 5.3 10e9/L 09/30/19 20 Unknown COMPLETE BLOOD COUNT [id number] RBC 4.16 10e12/L 2019 Unknown COMPLETE BLOOD COUNT 8852066 HEMOGLOBIN 14.1 g/dL 09/30/19 20 Unknown COMPLETE BLOOD COUNT 1200829 HEMATOCRIT 42.6 % 09/30/19 20 Unknown COMPLETE BLOOD COUNT 2801706 MCV 102.4 fL 0 Unknown COMPLETE BLOOD COUNT 8111869 MCH 33.9 pg 0 Unknown COMPLETE BLOOD COUNT 2225592 MCHC 33.1 g/dL 0 Unknown COMPLETE BLOOD COUNT 4209206 PLATELET COUNT 273 10e9/L 11/2019 Unknown COMPLETE BLOOD COUNT 2949552 Mean Plt Volume 9.4 fL 11/2019 Unknown COMPLETE BLOOD COUNT 7011208 Neut Auto 57.3 % 0 Unknown COMPLETE BLOOD COUNT 4274507 Lymph Auto 29.3 % 09/30/19 20 Unknown COMPLETE BLOOD COUNT 2597392 Benson Auto 7.6 % 0 Unknown COMPLETE BLOOD COUNT 7449376 RDW 13.8 % 0 Unknown COMPLETE BLOOD COUNT 7040214 Eos Auto 4.5 % 0 Unknown COMPLETE BLOOD COUNT 9525295 Baso Auto 1.3 % 0 Unknown COMPLETE BLOOD COUNT 2548765 Neutrophil Abs 3.04 10e9/L Unknown COMPLETE BLOOD COUNT 3047846 Lymphocyte Abs 1.55 10e9/L Unknown COMPLETE BLOOD COUNT [id number] Monocyte Abs 0.40 10e9/L 11/2019 Unknown COMPLETE BLOOD COUNT [id number] Eosinophil Abs 0.24 10e9/L Unknown COMPLETE BLOOD COUNT [id number] RDW-SD 50.7 fL 0 Unknown COMPLETE BLOOD COUNT [id number] Basophil Abs 0.07 10e9/L 11/2019 Unknown Procedures Procedure Codes Date URINALYSIS NONAUTO W/O SCOPE CPT-4: 98203 05/07/2021 URINE CULTURE/ COLONY COUNT CPT-4: 25779 05/07/2021 ROUTINE VENIPUNCTURE CPT-4: 44856 04/30/2021 COMPREHEN METABOLIC PANEL CPT-4: 39992 04/30/2021 COMPLETE CBC W/AUTO DIFF WBC CPT-4: 57021 04/30/2021 UA W/MICR CPT-4: 84253 02/15/2021 URINE CULTURE/ COLONY COUNT CPT-4: 65094 02/02/2021 ROUTINE VENIPUNCTURE CPT-4: 48475 01/25/2021 COMPREHEN METABOLIC PANEL CPT-4: 92222 01/25/2021 COMPLETE CBC W/AUTO DIFF WBC CPT-4: 20778 01/25/2021 URINE CULTURE/ COLONY COUNT CPT-4: 76627 01/25/2021 URINALYSIS NONAUTO W/O SCOPE CPT-4: 11903 01/25/2021 ROUTINE VENIPUNCTURE CPT-4: 57353 07/20/2020 COMPREHEN METABOLIC PANEL CPT-4: 35917 07/20/2020 ASSAY OF FREE THYROXINE CPT-4: 71438 07/20/2020 ASSAY THYROID STIM HORMONE CPT-4: 89200 07/20/2020 COMPLETE CBC W/AUTO DIFF WBC CPT-4: 77535 07/20/2020 RBC SED RATE AUTOMATED CPT-4: 96008 07/20/2020 URINALYSIS NONAUTO W/O SCOPE CPT-4: 08601 04/30/2020 URINE CULTURE/ COLONY COUNT CPT-4: 44051 04/30/2020 ROUTINE VENIPUNCTURE CPT-4: 75511 04/07/2020 COMPLETE CBC W/AUTO DIFF WBC CPT-4: 18495 04/07/2020 VITAMIN B-12 CPT-4: 85537 04/07/2020 ASSAY OF GGT CPT-4: 21819 04/07/2020 ROUTINE VENIPUNCTURE CPT-4: 14682 09/30/2019 ASSAY OF FREE THYROXINE CPT-4: 76038 09/30/2019 ASSAY THYROID STIM HORMONE CPT-4: 81122 09/30/2019 COMPREHEN METABOLIC PANEL CPT-4: 56503 09/30/2019 COMPLETE CBC W/AUTO DIFF WBC CPT-4: 43444 09/30/2019 LIPID PANEL CPT-4: 87163 09/30/2019 Vital Signs Date Vital 05/07/2021 Blood Pressure 1: 126/68 Code: 8480-6 Heart Rate 1: 52 bpm Respiratory Rate: 20 bpm SpO2: 99% Temperature: 36.6 (C) / 97.9 (F) We ight: 80 lbs Code: 48002-1 05/05/2021 Blood Pressure 1: 118/76 Code: 8480-6 BMI: 13.1 Code: 02981-8 Heart Rate 1: 67 bpm Height: 5'5" Code: 8302-2 Respiratory Rate: 16 bpm Temperatu re: 36.4 (C) / 97.5 (F) Weight: 79 lbs Code: 44971-2 01/25/2021 Blood Pressure 1: 102/68 Code: 8480-6 Heart Rate 1: 76 bpm Respiratory Rate: 20 bpm SpO2: 100% Temperature: 36.9 (C) / 98.5 (F) We ight: 87 lbs Code: 91822-6 12/30/2020 Blood Pressure 1: 134/80 Code: 8480-6 BMI: 14.1 Code: 59441-6 Heart Rate 1: 72 bpm Height: 5'5" Code: 8302-2 Respiratory Rate: 18 bpm SpO2: 97% Temperature: 36.6 (C) / 97.8 (F) Weight: 85 lbs Code: 80041-9 11/10/2020 Blood Pressure 1: 130/74 Code: 8480-6 Heart Rate 1: 56 bpm Respiratory Rate: 20 bpm SpO2: 98% Temperature: 36.3 (C) / 97.4 (F) We ight: 85 lbs Code: 10761-7 07/29/2020 Blood Pressure 1: 121/65 Code: 8480-6 BMI: 14.3 Code: 76906-4 Heart Rate 1: 58 bpm Height: 5'5" Code: 8302-2 Respiratory Rate: 15 bpm SpO2: 98% Temperature: 36.9 (C) / 98.4 (F) Weight: 86 lbs Code: 78222-3 07/20/2020 Blood Pressure 1: 123/69 Code: 8480-6 Heart Rate 1: 68 bpm Respiratory Rate: 15 bpm SpO2: 99% Temperature: 36.6 (C) / 97.8 (F) We ight: 83 lbs Code: 55457-1 04/30/2020 Blood Pressure 1: 128/82 Code: 8480-6 Heart Rate 1: 68 bpm Respiratory Rate: 20 bpm SpO2: 95% Temperature: 36.5 (C) / 97.7 (F) We ight: 91 lbs Code: 30161-7 04/09/2020 Blood Pressure 1: 130/78 Code: 8480-6 Heart Rate 1: 68 bpm Respiratory Rate: 20 bpm SpO2: 99% Temperature: 36.3 (C) / 97.4 (F) We ight: 90 lbs Code: 78793-1 11/22/2019 Temperature: 36.3 (C) / 97.3 (F) 09/10/2019 Blood Pressure 1: 128/72 Code: 8480-6 BMI: 15.6 Code: 49694-3 Heart Rate 1: 68 bpm Height: 5'5" Code: 8302-2 Respiratory Rate: 20 bpm SpO2: 97% Temperature: 36.6 (C) / 97.9 (F) Weight: 94 lbs Code: 55615-2 Functional Status No Functional Status data Reason [...] Diagnosis: Urinary frequency[ICD10: R35.0] Sara MCCORMICK DO [facility] CPT-4: 87225 05/07/2021 ([id number]) OFFICE/OUTPATIENT VISIT EST Diagnosis: Mass of right lung[ICD10: R91.8] Diagnosis: Right patella fracture[ICD10: S82.001A] Diagnosis: Abnormal weight loss[ICD10: R63.4] Diagnosis: Coronary artery arteriosclerosis[ICD10: I25.10] Diagnosis: Fatigue[ICD10: R53.83] Ericka Maharaj [facility] CPT-4: 84753 05/05/2021 ([id number]) NURSE/OUTPATIENT VISIT EST Diagnosis: Essential (primary) hypertension[ICD10: I10] Diagnosis: Fatigue[ICD10: R53.83] Diagnosis: Blood loss anemia[ICD10: D50.0] Ericka MCCORMICK [facility] CPT-4: 60860 04/30/2021 ([id number]) NURSE/OUTPATIENT VISIT EST Diagnosis: Urinary tract infection[ICD10: N39.0] Ericka MCCORMICK [facility] CPT-4: 43984 02/02/2021 ([id number]) OFFICE/OUTPATIENT VISIT EST Diagnosis: Fatigue[ICD10: R53.83] Diagnosis: Blood loss anemia[ICD10: D50.0] Diagnosis: Coronary artery disease[ICD10: I25.10] Diagnosis: Hematuria[ICD10: R31.9] Ericka CHANEL [facility] CPT-4: 28574 01/25/2021 ([id number]) OFFICE/OUTPATIENT VISIT EST Diagnosis: GERD (gastroesophageal reflux disease)[ICD10: K21.9] Diagnosis: Duodenal ulcer[ICD10: K26.9] Diagnosis: Coronary artery disease[ICD10: I25.10] Diagnosis: Anxiety[ICD10: F41.9] Diagnosis: Blood loss anemia[ICD10: D50.0] Ericka MCCORMICK [facility] CPT-4: 13293 12/30/2020 ([id number]) NURSE/OUTPATIENT VISIT EST Diagnosis: Edema[ICD10: R60.9] Ericka MCCORMICK [facility] CPT-4: 07077 12/21/2020 ([id number]) OFFICE/OUTPATIENT VISIT EST Diagnosis: Coronary artery disease[ICD10: I25.10] Diagnosis: Essential (primary) hypertension[ICD10: I10] Diagnosis: Stress reaction[ICD10: F43.0] Diagnosis: Insomnia[ICD10: G47.00] Diagnosis: Pulmonary nodule[ICD10: R91.1] Ericka Marianocurtispromise MCCORMICK [facility] CPT-4: 64692 11/10/2020 ([id number]) NO CHARGE Diagnosis: Mass of upper lobe of right lung[ICD10: R91.8] Ericka Anny MCCORMICK [facility] CPT-4: 17663 07/29/2020 ([id number]) OFFICE/OUTPATIENT VISIT EST Diagnosis: Fatigue[ICD10: R53.83] Diagnosis: Lymphadenopathy of head and neck[ICD10: R59.1] Diagnosis: Weight loss, non-intentional[ICD10: R63.4] Diagnosis: History of melanoma[ICD10: Z85.820] Diagnosis: Skin lesion[ICD10: L98.9] Sara Delgadovitormomo NUNEZ [facility] CPT-4: 60077 07/20/2020 ([id number]) OFFICE/OUTPATIENT VISIT EST Diagnosis: Urinary tract infection[ICD10: N39.0] Meena Martinezmichael RÍOS BUBBA MCCORMICK [facility] CPT-4: 04734 04/30/2020 ([id number]) OFFICE/OUTPATIENT VISIT EST Diagnosis: Dizziness[ICD10: R42] Diagnosis: Depressed mood with feeling of loneliness[ICD10: F32.9] Diagnosis: Insomnia[ICD10: G47.00] Ericka Anny HAYNESLINE Kayli CHANEL [facility] CPT-4: 77516 04/09/2020 ([id number]) NURSE/OUTPATIENT VISIT EST Diagnosis: Coronary artery disease[ICD10: I25.10] Diagnosis: Fatigue[ICD10: R53.83] Diagnosis: Essential (primary) hypertension[ICD10: I10] Ericka Garcíadeysi ERICKA Kayli MCCORMICK [facility] CPT-4: 17906 04/07/2020 ([id number]) OFFICE/OUTPATIENT VISIT EST Diagnosis: Fatigue[ICD10: R53.83] Meena Martinezimaldi [facility] CPT-4: 14955 11/22/2019 ([id number]) NURSE/OUTPATIENT VISIT EST Diagnosis: Essential (primary) hypertension[ICD10: I10] Diagnosis: Coronary artery disease[ICD10: I25.10] Diagnosis: Encounter for general adult medical examination with abnormal findings[ICD10: Z00.01] Ericka CHANCE KatherineNilda ANNY Et3ar[employer] CPT-4: 49529 09/30/2019 ([id number]) OFFICE/OUTPATIENT VISIT NEW Diagnosis: Essential (primary) hypertension[ICD10: I10] Diagnosis: Coronary artery disease[ICD10: I25.10] Diagnosis: Aortic valve stenosis with insufficiency[ICD10: I35.2] Ericka Milan ANNY [employer] CPT-4: 15110 09/10/2019 Plan of Care Planned Activity Notes [...] ICD-10 : I25.10 05/05/2021 Appointment: Ericka Mccormicktel: [address] [place] [address] US FOLLOW UP 05/05/2021 Visit Plan: 04/30/2021 Appointment: Ericka Mccormick WPtel: [address] [place], [place] [phone] US LAB 04/30/2021 Appointment: Ericka Mccormick WPtel: [address] [place] [address] US scheduled by VC CANCELED 03/10/2021 Appointment: Ericka Mccorimck WPtel: [address] [place] [address] patient unable to leave urine CANCELED Appointment: Ericka Mccormick WPtel: [address] [place], [place] [id number] US CANCELED 02/02/2021 Appointment: Ericka Mccormick WPtel: [address] [place], [place] [id number] US UA 02/02/2021 Care Plan: UA W/MICR ADD ON ORDER LOINC : 57765-2 Pending 01/26/2021 Visit Diagnosis Plan: Hematuria Discussion: Culture ur ine ICD-9 : 599.70 ICD-10 : R31.9 01/25/2021 Visit Diagnosis Plan: Blood loss anemia Discussion: Ch real CBC now ICD-9 : 280.0 ICD-10 : D50.0 01/25/2021 Appointment: Ericka Mccormick WPtel: [address] [place], [place] [phone] US ACUTE ILLNESS 01/25/2021 Appointment: Sara Aguila WPtel: [address] [facility] US CANCELED 01/01/2021 Visit Diagnosis Plan: Anxiety [...] K21.9 12/30/2020 Appointment: Ericka Mccormick WPtel: [address] [place], [place] [phone] US FOLLOW UP 12/30/2020 Appointment: Ericka Mccormick WPtel: [address] [place], [place] [phone] NURSE SERVICES 12/21/2020 Visit Diagnosis Plan: Insomnia [...] : F43.0 11/10/2020 Appointment: Ericka Mccormick WPtel: [address] [place], [place] [id number] FOLLOW UP 11/10/2020 Patient Education: [email or web address]- [email or web address] Coupon [id number] [email or web address] Completed 11/10/2020 Visit Diagnosis Plan: Mass of upper lobe of right lung Discussion: CT scan of lung results discussed with patient and told this looks like cancer Agrees to see pulmonology to see if will be amenable to bronchoscopy to get cells/washings ICD-9 : 786.6 ICD-10 : R91.8 07/29/2020 Appointment: Ericka Mccormick WPtel: [address] [address] [place], [place] [id number] WORK IN 07/29/2020 Care Plan: Referral Order SNOMED-CT : [id number] [phone] Pending 07/29/2020 Care Plan: CT SFT TSUE NCK W/O & W/DYE L OINC : 36226-4 Pending 07/21/2020 Visit Diagnosis Plan: Fatigue Discussion: [...] the doctor who excised her melanoma, Dr. Medarno, in - before surgery referral. She will let us know who she'd like to see. ICD-9 : 709.9 ICD-10 : L98.9 07/20/2020 Appointment: Sara Aguila WPtel: [phone] [facility] ACUTE ILLNESS 07/20/2020 Patient Education: [...] ICD-10 : N39.0 04/30/2020 Appointment: Meena Li [address] [place] [address] ACUTE ILLNESS 04/30/2020 Appointment: Meena Li [address] [place] [address] 04/21/2020 1020---patient needed seen fo r appointment [...] : F32.9 04/09/2020 Appointment: Ericka Mccormick WPtel: [phone] [facility] FOLLOW UP 04/09/2020 Care Plan: COM[place] : [address]-1 Pending 04/09/2020 Appointment: Ericka Mccormick WPtel: [address] [place], [place] [id number] LAB 04/07/2020 Visit Diagnosis Plan: Fatigue Discussion: no other sym ptoms other than fatigue for 4 weeks so will update labs. order sent to [facility] for blood work and ua with c&s. instructed to call office with new or worsening symptoms. ICD-9 : 780.79 ICD-10 : R53.83 11/22/2019 Appointment: Meena Li [facility]66[facility] TELEMEDICINE 11/22/2019 Appointment: Ericka Mccormick WPtel: [address] [place] [address] LAB 09/30/2019 Visit Diagnosis Plan: Coronary artery [...] : I10 09/10/2019 Appointment: Ericka Mccormick WPtel: [address] [place], [place] [phone] NEW PATIENT 09/10/2019 Patient Education: carvedilol- [email or web address] Elvin [id number] [email or web address] Completed 09/10/2019 Appointment: Ericka Mccormick WPtel: [address] [place], [place] [phone] US RESCHEDULED 08/20/2019 Appointment: Ericka Mccormick WPtel: [phone] [id number] US CANCELED 07/22/2019 Referral: Vikram Maguire WPtel: [phone] [facility] [address] [id number] [place] Referral Appointment Requested Instructions No Instructions Medical Equipment No Medical Equipment data Health Concerns Section Health Concerns data not found Goals Section Goals data not found Interventions Section Interventions data not found Health Status Evaluations/Outcomes Section Health Status Evaluations/Outcomes data not found Advance Directives No Advance Directive data
--- OUTSIDE RECORDS SUMMARY | 2021-05-18 09:20 | XMS REPORT | CCD ---
Author Author Erica Mccormick D.O. 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 Name Role Phone PP Unavailable CCM Unavailable Summary Purpose Interface Exchange Insurance Providers Payer name Policy type / Coverage type Covered alliance party ID Effective Begin Date Effective End Date WPS MEDICARE PART B [place] Medicare Part B [id number] Unknown Unknown [employer]UE [place] [place] [place] MEDIC[place] Medicare Part B X [id number] Unknown Unknown Family History Family History data not found Social History Social History Element Codes Description Effective Dates Marital status Unknown 09/10/2019 Number of children Unknown 1 09/10/2019 Employment Unknown Retired 09/10/[address]: 7559305 Former smoker quit 201109/10/[address]: 376465 Currently drinks alcohol 09/09 Frequency of drinks SNOMED CT: 471289937 1-4 drinks per week Allergies, Adverse Reactions, [...] Fill Instructions Cipro 250 mg tablet RxNorm: 955517 Take 1 Tablet(s) Oral Q12H 05/0705/09/2021 Active pantoprazole 20 mg tablet,delayed release RxNorm: 600162 1 Tablet(s) Oral two times a day 05/06/2021 11/01/2021 Active tramadol 50 mg tablet RxNorm: 352778 1 Tablet(s) Oral t wo times a day as needed for pain 03/15/2021 No Stop Date Active ferrous sulfate 325 mg (65 mg iron) tablet RxNorm: 336608 Take 1 Tablet(s) Oral QD 01/28/2021 05/04/2021 Inactive pantoprazole 20 mg tablet,delayed release RxNorm: 470196 1 Tablet(s) Oral two times a day 12/22/2020 12/22/2020 Inactive paroxetine 20 mg tablet RxNorm: 4784713 1 Tablet(s) Oral QD 021 05/04/2021 Inactive pantoprazole 20 mg tablet,delayed release RxNorm: 478117 1 Tablet(s) Oral two times a day 12/22/2020 12/22/2020 Inactive paroxetine 20 mg tablet RxNorm: 8140743 1 Tablet(s) Oral QD 021 12/15/2020 Inactive paroxetine 20 mg tablet RxNorm: 1324653 1 Tablet(s) Oral QD 021 12/15/2020 Inactive MagOx 400 mg (241.3 mg magnesium) tablet RxNorm: 720361 Take 1 Tablet(s) Oral every night at bedtime with melatonin 11/23/2020 01/24/2021 Inactive melatonin 3 mg tablet RxNorm: 049631 Take 1-2 Tablet(s) Oral every night at bedtime 11/18/2020 No Stop Date Active Plavix 75 mg tablet RxNorm: 314248 Take 1 Tablet(s) Oral QD 07/20/2 021 No Stop Date Active trazodone 50 mg tablet RxNorm: 607215 Take 1-2 Tablet(s ) Oral QPM as needed for sleep 11/10/2020 11/22/2020 Inactive atorvastatin 40 mg tablet RxNorm: 769385 Take 1 Tablet( s) Oral every night at bedtime 11/10/2020 05/04/2021 Inactive alprazolam 0.25 mg tablet RxNorm: 605709 1/2-1 Tablet(s ) Oral QPM as needed for sleep 08/03/2020 09/01/2020 Inactive alprazolam 0.25 mg tablet RxNorm: 649734 1/2-1 Tablet(s ) Oral QPM as needed for sleep 08/03/2020 08/02/2020 Inactive Aspirin Low Dose 81 mg tablet,delayed release RxNorm: 123653 1 Tablet(s) Oral QD 09/10/2019 No Stop Date Active carvedilol 6.25 mg tablet RxNorm: 799139 1 Tablet(s) Oral two t imes a day 09/10/2019 11/09/2020 Inactive Fish Oil 1,000 mg (120 mg-180 mg) capsule RxNorm: 1 Caps ule(s) Oral QD 09/10/2019 11/25/2019 Inactive losartan 25 mg tablet RxNorm: 014575 1 Tablet(s) Oral QD 09/10/2019 0 05/04/2021 Inactive Medication Administered No Medication Administered data Immunizations No Immunization data Results Observation Observation Code Item Item Code Result Date S [facility] Location GFR CALC [id number] GFR Non Afr Amr >60 mL/min 04/30/2021 Un known GFR CALC [id number] GFR Afr Amr >60 mL/min 04/30/2021 Unknow n COMPREHENSIVE METABOLIC 46021 AST 13 U/L 2021 Unknown COMPREHENSIVE METABOLIC 02356 ALT 12 U/L 2021 Unknown COMPREHENSIVE METABOLIC 73199 BUN 15 mg/dL 2021 Unknown COMPREHENSIVE METABOLIC 08500 ALBUMIN 4.0 g/dL 2021 Unknown COMPREHENSIVE METABOLIC 69072 CHLORIDE 103 mmol/L 04/30 Unknown COMPREHENSIVE METABOLIC 50973 Bili Total 0.4 mg/dL 04/30 Unknown COMPREHENSIVE METABOLIC 65935 ALK PHOS 75 U/L 2021 Unknown COMPREHENSIVE METABOLIC 47757 SODIUM 136 mmol/L 04/30 Unknown COMPREHENSIVE METABOLIC 13885 CREATININE 0.69 mg/dL 10/2021 Unknown COMPREHENSIVE METABOLIC 12703 CALCIUM 8.9 mg/dL 2021 Unknown COMPREHENSIVE METABOLIC 07751 POTASSIUM 4.3 mmol/L 04/30 Unknown COMPREHENSIVE METABOLIC 46576 Total Protein 6.7 g/dL Unknown COMPREHENSIVE METABOLIC 67283 Glucose 94 mg/dL 2021 Unknown COMPREHENSIVE METABOLIC 64380 Bicarbonate 25 mmol/L 10/2021 Unknown COMPREHENSIVE METABOLIC 82687 AGAP 8 mmol/L 2021 Unknown COMPLETE BLOOD COUNT [id number] WBC 4.6 10e9/L 04/30/19 22 Unknown COMPLETE BLOOD COUNT [id number] RBC 3.76 10e12/L 2021 Unknown COMPLETE BLOOD COUNT [id number] HEMOGLOBIN 10.9 g/dL 04/30/19 22 Unknown COMPLETE BLOOD COUNT 0999973 HEMATOCRIT 35.3 % 04/30/19 22 Unknown COMPLETE BLOOD COUNT 8269783 MCV 93.9 fL 2 Unknown COMPLETE BLOOD COUNT 4004452 MCH 29.0 pg 2 Unknown COMPLETE BLOOD COUNT 5242010 MCHC 30.9 g/dL 2 Unknown COMPLETE BLOOD COUNT [id number] PLATELET COUNT 254 10e9/L 10/2021 Unknown COMPLETE BLOOD COUNT [id number] Mean Plt Volume 9.0 fL 10/2021 Unknown COMPLETE BLOOD COUNT [id number] Neut Auto 73.2 % 2 Unknown COMPLETE BLOOD COUNT 1010035 Lymph Auto 14.3 % 04/30/19 22 Unknown COMPLETE BLOOD COUNT [id number] Scott Auto 8.1 % 2 Unknown COMPLETE BLOOD COUNT [id number] RDW 17.8 % 2 Unknown COMPLETE BLOOD COUNT [id number] Eos Auto 3.7 % 2 Unknown COMPLETE BLOOD COUNT 1216709 Baso Auto 0.7 % 2 Unknown COMPLETE BLOOD COUNT [id number] Neutrophil Abs 3.37 10e9/L Unknown COMPLETE BLOOD COUNT [id number] Lymphocyte Abs 0.66 10e9/L Unknown COMPLETE BLOOD COUNT [id number] Monocyte Abs 0.37 10e9/L 10/2021 Unknown COMPLETE BLOOD COUNT [id number] Eosinophil Abs 0.17 10e9/L Unknown COMPLETE BLOOD COUNT [id number] RDW-SD 59.5 fL Unknown COMPLETE BLOOD COUNT [id number] Basophil Abs 0.03 10e9/L 10/2021 Unknown UA W/MICR 97188 UA Protein TNP:Specimen Not Received Unknown UA W/MICR 82247 UA Hemoglobin TNP:Specimen Not Received 02/17/2021 Unknown UA W/MICR 34623 UA Glucose TNP:Specimen Not Received Unknown UA W/MICR 82557 UA Ketones TNP:Specimen Not Received Unknown UA W/MICR 97845 UA pH TNP:Specimen Not Received Unknown UA W/MICR 94570 U Spec [place] TNP:Specimen Not Received 02/17/2021 Unknown UA W/MICR 88782 UA Bilirubin TNP:Specimen Not Received 02/17/2021 Unknown UA W/MICR 63393 UA Leuk [place] TNP:Specimen Not Receive d 02/17/2021 Unknown UA W/MICR 30029 UA Nitrite TNP:Specimen Not Received Unknown UA W/MICR 12974 UA WBC/hpf TNP:Specimen Not Received Unknown UA W/MICR 21753 UA RBC hpf TNP:Specimen Not Received Unknown UA W/MICR 24378 UA Protein TNP:Specimen Integrity 01/27 Unknown UA W/MICR 58524 UA Hemoglobin TNP:Specimen Integrity Unknown UA W/MICR 33001 UA Glucose TNP:Specimen Integrity 01/27 Unknown UA W/MICR 54787 UA Ketones TNP:Specimen Integrity 01/27 Unknown UA W/MICR 51802 UA pH TNP:Specimen Integrity 2020 Unknown UA W/MICR 17765 U Spec [place] TNP:Specimen Integrity 1 Unknown UA W/MICR 80488 UA Bilirubin TNP:Specimen Integrity 09/2020 Unknown UA W/MICR 18924 UA Leuk [place] TNP:Specimen Integrity 01/27/2021 Unknown UA W/MICR 05740 UA Nitrite TNP:Specimen Integrity 01/27 Unknown UA W/MICR 42839 UA WBC/hpf TNP:Specimen Integrity 01/27 Unknown UA W/MICR 29801 UA RBC hpf TNP:Specimen Integrity 01/27 Unknown COMPLETE BLOOD COUNT [id number] WBC 6.1 10e9/L 01/26/20 21 Unknown COMPLETE BLOOD COUNT [id number] RBC 3.34 10e12/L 2020 Unknown COMPLETE BLOOD COUNT [id number] HEMOGLOBIN 8.8 g/dL 01/26/20 21 Unknown COMPLETE BLOOD COUNT [id number] HEMATOCRIT 28.5 % 01/26/20 21 Unknown COMPLETE BLOOD COUNT [id number] MCV 85.3 fL 1 Unknown COMPLETE BLOOD COUNT [id number] MCH 26.3 pg 1 Unknown COMPLETE BLOOD COUNT 0458243 MCHC 30.9 g/dL 1 Unknown COMPLETE BLOOD COUNT [id number] PLATELET COUNT 268 10e9/L 07/2020 Unknown COMPLETE BLOOD COUNT 7674152 Mean Plt Volume 8.7 fL 07/2020 Unknown COMPLETE BLOOD COUNT 0473305 Neut Auto 67.7 % 1 Unknown COMPLETE BLOOD COUNT 8234529 Lymph Auto 19.4 % 01/26/20 21 Unknown COMPLETE BLOOD COUNT [id number] Scott Auto 8.4 % 1 Unknown COMPLETE BLOOD COUNT 1242016 RDW 16.7 % 1 Unknown COMPLETE BLOOD COUNT 7305079 Eos Auto 3.8 % 1 Unknown COMPLETE BLOOD COUNT 7246669 Baso Auto 0.7 % 1 Unknown COMPLETE BLOOD COUNT [id number] Neutrophil Abs 4.13 10e9/L Unknown COMPLETE BLOOD COUNT [id number] Lymphocyte Abs 1.18 10e9/L Unknown COMPLETE BLOOD COUNT [id number] Monocyte Abs 0.51 10e9/L 07/2020 Unknown COMPLETE BLOOD COUNT [id number] Eosinophil Abs 0.23 10e9/L Unknown COMPLETE BLOOD COUNT [id number] RDW-SD 50.9 fL 1 Unknown COMPLETE BLOOD COUNT [id number] Basophil Abs 0.04 10e9/L 07/2020 Unknown GFR CALC 5112724 GFR Non Afr Amr >60 mL/min 01/25/2021 Un known GFR CALC 7070662 GFR Afr Amr >60 mL/min 01/25/2021 Unknow n COMPREHENSIVE METABOLIC 05259 AST 17 U/L 2020 Unknown COMPREHENSIVE METABOLIC 71001 ALT 13 U/L 2020 Unknown COMPREHENSIVE METABOLIC 92851 BUN 14 mg/dL 2020 Unknown COMPREHENSIVE METABOLIC 49885 ALBUMIN 4.1 g/dL 2020 Unknown COMPREHENSIVE METABOLIC 54046 CHLORIDE 102 mmol/L 01/25 Unknown COMPREHENSIVE METABOLIC 33199 Bili Total 0.4 mg/dL 01/25 Unknown COMPREHENSIVE METABOLIC 88742 ALK PHOS 85 U/L 2020 Unknown COMPREHENSIVE METABOLIC 45539 SODIUM 134 mmol/L 01/25 Unknown COMPREHENSIVE METABOLIC 37446 CREATININE 0.71 mg/dL 07/2020 Unknown COMPREHENSIVE METABOLIC 74872 CALCIUM 9.3 mg/dL 2020 Unknown COMPREHENSIVE METABOLIC 79018 POTASSIUM 4.3 mmol/L 01/25 Unknown COMPREHENSIVE METABOLIC 13885 Total Protein 7.0 g/dL Unknown COMPREHENSIVE METABOLIC 80899 Glucose 111 mg/dL 2020 Unknown COMPREHENSIVE METABOLIC 52187 Bicarbonate 24 mmol/L 07/2020 Unknown COMPREHENSIVE METABOLIC 16941 AGAP 8 mmol/L 2020 Unknown COMPREHENSIVE METABOLIC 36672 AST 16 U/L 2019 Unknown COMPREHENSIVE METABOLIC 19701 ALT 12 U/L 2019 Unknown COMPREHENSIVE METABOLIC 43384 BUN 13 mg/dL 2019 Unknown COMPREHENSIVE METABOLIC 33878 ALBUMIN 4.1 g/dL 2019 Unknown COMPREHENSIVE METABOLIC 40067 CHLORIDE 96 mmol/L 2019 Unknown COMPREHENSIVE METABOLIC 99421 Bili Total 1.1 mg/dL 04/09 Unknown COMPREHENSIVE METABOLIC 77558 ALK PHOS 80 U/L 2019 Unknown COMPREHENSIVE METABOLIC 73069 SODIUM 131 mmol/L 04/09 Unknown COMPREHENSIVE METABOLIC 12199 CREATININE 0.76 mg/dL 03/24 Unknown COMPREHENSIVE METABOLIC 19517 CALCIUM 9.0 mg/dL 2019 Unknown COMPREHENSIVE METABOLIC 40719 POTASSIUM 4.2 mmol/L 04/09 Unknown COMPREHENSIVE METABOLIC 62885 Total Protein 6.8 g/dL Unknown COMPREHENSIVE METABOLIC 56707 Glucose 101 mg/dL 2019 Unknown COMPREHENSIVE METABOLIC 61204 Bicarbonate 25 mmol/L 03/24 Unknown COMPREHENSIVE METABOLIC 48734 AGAP 10 mmol/L 2019 Unknown GFR CALC 5464754 GFR Non Afr Amr >60 mL/min 04/09/2020 Un known GFR CALC 8543058 GFR Afr Amr >60 mL/min 04/09/2020 Unknow n GAMMA GLUTAMYL TRANSFERASE 89906 GGT 19 U/L Unknown COMPLETE BLOOD COUNT 6953757 WBC 6.3 10e9/L 04/07/20 20 Unknown COMPLETE BLOOD COUNT [id number] RBC 4.36 10e12/L 2019 Unknown COMPLETE BLOOD COUNT 7448311 HEMOGLOBIN 15.2 g/dL 04/07/20 20 Unknown COMPLETE BLOOD COUNT [id number] HEMATOCRIT 43.8 % 04/07/20 20 Unknown COMPLETE BLOOD COUNT [id number] MCV 100.5 fL 0 Unknown COMPLETE BLOOD COUNT [id number] MCH 34.9 pg 0 Unknown COMPLETE BLOOD COUNT 8953242 MCHC 34.7 g/dL 0 Unknown COMPLETE BLOOD COUNT 2467586 PLATELET COUNT 254 10e9/L Unknown COMPLETE BLOOD COUNT 5430250 Mean Plt Volume 9.9 fL Unknown COMPLETE BLOOD COUNT 7656190 Neut Auto 63.3 % 0 Unknown COMPLETE BLOOD COUNT [id number] Lymph Auto 24.5 % 04/07/20 20 Unknown COMPLETE BLOOD COUNT 7097000 Scott Auto 8.4 % 0 Unknown COMPLETE BLOOD COUNT 1488901 RDW 12.8 % 0 Unknown COMPLETE BLOOD COUNT 1183237 Eos Auto 3.2 % 0 Unknown COMPLETE BLOOD COUNT 4072563 Baso Auto 0.6 % 0 Unknown COMPLETE BLOOD COUNT 2372705 Neutrophil Abs 3.99 10e9/L Unknown COMPLETE BLOOD COUNT [id number] Lymphocyte Abs 1.54 10e9/L Unknown COMPLETE BLOOD COUNT [id number] Monocyte Abs 0.53 10e9/L 03/24 Unknown COMPLETE BLOOD COUNT [id number] Eosinophil Abs 0.20 10e9/L Unknown COMPLETE BLOOD COUNT 2663283 RDW-SD 47.6 fL 0 Unknown COMPLETE BLOOD COUNT 6175591 Basophil Abs 0.04 10e9/L 03/24 Unknown VITAMIN B 12 11989 VITAMIN B12 661 pg/mL 04/07/2020 Unkn own LIPID GROUP 81097 Cholesterol 168 mg/dL 09/30/2019 Unkno wn LIPID GROUP 53088 Triglyceride 141 mg/dL 09/30/2019 Unkn own [facility] 46468 HDL CHOLESTEROL 66 mg/dL 09/30/2019 U nknown L[facility] GROUP 56324 Chol/HDL Ratio 2.55 ratio 09/30/2019 U nknown LIPID GROUP 96860 NON-HDL Chol 102 mg/dL 09/30/2019 Unkn own LIP[facility] GROUP 83435 LDL Cholesterol 74 mg/dL 09/30/2019 U nknown FREE T4 33421 T4 Free 0.76 ng/dL 09/30/2019 Unknown THYROID STIMULATING HORMONE 46524 TSH 2.186 uIU/mL 09/30/2019 Unknown GFR CALC 5646822 GFR Non Afr Amr >60 mL/min 09/30/2019 Un known GFR CALC 5692745 GFR Afr Amr >60 mL/min 09/30/2019 Unknow n COMPREHENSIVE METABOLIC 58717 AST 14 U/L 2019 Unknown COMPREHENSIVE METABOLIC 61783 ALT 11 U/L 2019 Unknown COMPREHENSIVE METABOLIC 77341 BUN 15 mg/dL 2019 Unknown COMPREHENSIVE METABOLIC 59905 ALBUMIN 4.0 g/dL 2019 Unknown COMPREHENSIVE METABOLIC 07552 CHLORIDE 96 mmol/L 2019 Unknown COMPREHENSIVE METABOLIC 72419 Bili Total 0.9 mg/dL 09/29 Unknown COMPREHENSIVE METABOLIC 32319 ALK PHOS 72 U/L 2019 Unknown COMPREHENSIVE METABOLIC 60958 SODIUM 132 mmol/L 09/29 Unknown COMPREHENSIVE METABOLIC 59476 CREATININE 0.73 mg/dL 11/2019 Unknown COMPREHENSIVE METABOLIC 65637 CALCIUM 9.1 mg/dL 2019 Unknown COMPREHENSIVE METABOLIC 68519 POTASSIUM 4.6 mmol/L 09/29 Unknown COMPREHENSIVE METABOLIC 82356 Total Protein 6.4 g/dL Unknown COMPREHENSIVE METABOLIC 79494 Glucose 97 mg/dL 2019 Unknown COMPREHENSIVE METABOLIC 40740 Bicarbonate 25 mmol/L 11/2019 Unknown COMPREHENSIVE METABOLIC 66698 AGAP 11 mmol/L 2019 Unknown COMPLETE BLOOD COUNT 2573214 WBC 5.3 10e9/L 09/30/19 20 Unknown COMPLETE BLOOD COUNT [id number] RBC 4.16 10e12/L 2019 Unknown COMPLETE BLOOD COUNT 4918313 HEMOGLOBIN 14.1 g/dL 09/30/19 20 Unknown COMPLETE BLOOD COUNT 3958046 HEMATOCRIT 42.6 % 09/30/19 20 Unknown COMPLETE BLOOD COUNT 6841856 MCV 102.4 fL 0 Unknown COMPLETE BLOOD COUNT 1075608 MCH 33.9 pg 0 Unknown COMPLETE BLOOD COUNT [id number] MCHC 33.1 g/dL 0 Unknown COMPLETE BLOOD COUNT 3752925 PLATELET COUNT 273 10e9/L 11/2019 Unknown COMPLETE BLOOD COUNT 5514423 Mean Plt Volume 9.4 fL 11/2019 Unknown COMPLETE BLOOD COUNT 5931045 Neut Auto 57.3 % 0 Unknown COMPLETE BLOOD COUNT 1679088 Lymph Auto 29.3 % 09/30/19 20 Unknown COMPLETE BLOOD COUNT 7474916 Scott Auto 7.6 % 0 Unknown COMPLETE BLOOD COUNT 7187158 RDW 13.8 % 0 Unknown COMPLETE BLOOD COUNT 8763284 Eos Auto 4.5 % 0 Unknown COMPLETE BLOOD COUNT 4143474 Baso Auto 1.3 % 0 Unknown COMPLETE BLOOD COUNT 1147000 Neutrophil Abs 3.04 10e9/L Unknown COMPLETE BLOOD COUNT [id number] Lymphocyte Abs 1.55 10e9/L Unknown COMPLETE BLOOD COUNT [id number] Monocyte Abs 0.40 10e9/L 11/2019 Unknown COMPLETE BLOOD COUNT [id number] Eosinophil Abs 0.24 10e9/L Unknown COMPLETE BLOOD COUNT 3740683 RDW-SD 50.7 fL 0 Unknown COMPLETE BLOOD COUNT [id number] Basophil Abs 0.07 10e9/L 11/2019 Unknown Procedures Procedure Codes Date URINALYSIS NONAUTO W/O SCOPE CPT-4: 92661 05/07/2021 URINE CULTURE/ COLONY COUNT CPT-4: 16843 05/07/2021 ROUTINE VENIPUNCTURE CPT-4: 62931 04/30/2021 COMPREHEN METABOLIC PANEL CPT-4: 57393 04/30/2021 COMPLETE CBC W/AUTO DIFF WBC CPT-4: 71900 04/30/2021 UA W/MICR CPT-4: 36415 02/15/2021 URINE CULTURE/ COLONY COUNT CPT-4: 10086 02/02/2021 ROUTINE VENIPUNCTURE CPT-4: 97847 01/25/2021 COMPREHEN METABOLIC PANEL CPT-4: 48108 01/25/2021 COMPLETE CBC W/AUTO DIFF WBC CPT-4: 16924 01/25/2021 URINE CULTURE/ COLONY COUNT CPT-4: 79216 01/25/2021 URINALYSIS NONAUTO W/O SCOPE CPT-4: 38014 01/25/2021 ROUTINE VENIPUNCTURE CPT-4: 86711 07/20/2020 COMPREHEN METABOLIC PANEL CPT-4: 61185 07/20/2020 ASSAY OF FREE THYROXINE CPT-4: 17537 07/20/2020 ASSAY THYROID STIM HORMONE CPT-4: 64608 07/20/2020 COMPLETE CBC W/AUTO DIFF WBC CPT-4: 97888 07/20/2020 RBC SED RATE AUTOMATED CPT-4: 97359 07/20/2020 URINALYSIS NONAUTO W/O SCOPE CPT-4: 01331 04/30/2020 URINE CULTURE/ COLONY COUNT CPT-4: 40984 04/30/2020 ROUTINE VENIPUNCTURE CPT-4: 89349 04/07/2020 COMPLETE CBC W/AUTO DIFF WBC CPT-4: 96898 04/07/2020 VITAMIN B-12 CPT-4: 75196 04/07/2020 ASSAY OF GGT CPT-4: 86553 04/07/2020 ROUTINE VENIPUNCTURE CPT-4: 71108 09/30/2019 ASSAY OF FREE THYROXINE CPT-4: 99397 09/30/2019 ASSAY THYROID STIM HORMONE CPT-4: 77751 09/30/2019 COMPREHEN METABOLIC PANEL CPT-4: 85081 09/30/2019 COMPLETE CBC W/AUTO DIFF WBC CPT-4: 99688 09/30/2019 LIPID PANEL CPT-4: 35248 09/30/2019 Vital Signs Date Vital 05/07/2021 Blood Pressure 1: 126/68 Code: 8480-6 Heart Rate 1: 52 bpm Respiratory Rate: 20 bpm SpO2: 99% Temperature: 36.6 (C) / 97.9 (F) We ight: 80 lbs Code: 24939-8 05/05/2021 Blood Pressure 1: 118/76 Code: 8480-6 BMI: 13.1 Code: 56670-4 Heart Rate 1: 67 bpm Height: 5'5" Code: 8302-2 Respiratory Rate: 16 bpm Temperatu re: 36.4 (C) / 97.5 (F) Weight: 79 lbs Code: 48185-0 01/25/2021 Blood Pressure 1: 102/68 Code: 8480-6 Heart Rate 1: 76 bpm Respiratory Rate: 20 bpm SpO2: 100% Temperature: 36.9 (C) / 98.5 (F) We ight: 87 lbs Code: 87048-7 12/30/2020 Blood Pressure 1: 134/80 Code: 8480-6 BMI: 14.1 Code: 61209-7 Heart Rate 1: 72 bpm Height: 5'5" Code: 8302-2 Respiratory Rate: 18 bpm SpO2: 97% Temperature: 36.6 (C) / 97.8 (F) Weight: 85 lbs Code: 03198-4 11/10/2020 Blood Pressure 1: 130/74 Code: 8480-6 Heart Rate 1: 56 bpm Respiratory Rate: 20 bpm SpO2: 98% Temperature: 36.3 (C) / 97.4 (F) We ight: 85 lbs Code: 94676-0 07/29/2020 Blood Pressure 1: 121/65 Code: 8480-6 BMI: 14.3 Code: 15437-1 Heart Rate 1: 58 bpm Height: 5'5" Code: 8302-2 Respiratory Rate: 15 bpm SpO2: 98% Temperature: 36.9 (C) / 98.4 (F) Weight: 86 lbs Code: 84369-9 07/20/2020 Blood Pressure 1: 123/69 Code: 8480-6 Heart Rate 1: 68 bpm Respiratory Rate: 15 bpm SpO2: 99% Temperature: 36.6 (C) / 97.8 (F) We ight: 83 lbs Code: 77098-2 04/30/2020 Blood Pressure 1: 128/82 Code: 8480-6 Heart Rate 1: 68 bpm Respiratory Rate: 20 bpm SpO2: 95% Temperature: 36.5 (C) / 97.7 (F) We ight: 91 lbs Code: 95142-0 04/09/2020 Blood Pressure 1: 130/78 Code: 8480-6 Heart Rate 1: 68 bpm Respiratory Rate: 20 bpm SpO2: 99% Temperature: 36.3 (C) / 97.4 (F) We ight: 90 lbs Code: 24555-0 11/22/2019 Temperature: 36.3 (C) / 97.3 (F) 09/10/2019 Blood Pressure 1: 128/72 Code: 8480-6 BMI: 15.6 Code: 26909-3 Heart Rate 1: 68 bpm Height: 5'5" Code: 8302-2 Respiratory Rate: 20 bpm SpO2: 97% Temperature: 36.6 (C) / 97.9 (F) Weight: 94 lbs Code: 23555-4 Functional Status No Functional Status data Reason [...] Diagnosis: Urinary frequency[ICD10: R35.0] Sara MCCORMICK DO [facility] CPT-4: 02217 05/07/2021 ([id number]) OFFICE/OUTPATIENT VISIT EST Diagnosis: Mass of right lung[ICD10: R91.8] Diagnosis: Right patella fracture[ICD10: S82.001A] Diagnosis: Abnormal weight loss[ICD10: R63.4] Diagnosis: Coronary artery arteriosclerosis[ICD10: I25.10] Diagnosis: Fatigue[ICD10: R53.83] Ericka Maharaj [facility] CPT-4: 54262 05/05/2021 ([id number]) NURSE/OUTPATIENT VISIT EST Diagnosis: Essential (primary) hypertension[ICD10: I10] Diagnosis: Fatigue[ICD10: R53.83] Diagnosis: Blood loss anemia[ICD10: D50.0] Ericka MCCORMICK [facility] CPT-4: 39292 04/30/2021 ([id number]) NURSE/OUTPATIENT VISIT EST Diagnosis: Urinary tract infection[ICD10: N39.0] Ericka MCCORMICK [facility] CPT-4: 26621 02/02/2021 ([id number]) OFFICE/OUTPATIENT VISIT EST Diagnosis: Fatigue[ICD10: R53.83] Diagnosis: Blood loss anemia[ICD10: D50.0] Diagnosis: Coronary artery disease[ICD10: I25.10] Diagnosis: Hematuria[ICD10: R31.9] Ericka CHANEL [facility] CPT-4: 50284 01/25/2021 ([id number]) OFFICE/OUTPATIENT VISIT EST Diagnosis: GERD (gastroesophageal reflux disease)[ICD10: K21.9] Diagnosis: Duodenal ulcer[ICD10: K26.9] Diagnosis: Coronary artery disease[ICD10: I25.10] Diagnosis: Anxiety[ICD10: F41.9] Diagnosis: Blood loss anemia[ICD10: D50.0] Ericka MCCORMICK [facility] CPT-4: 03540 12/30/2020 ([id number]) NURSE/OUTPATIENT VISIT EST Diagnosis: Edema[ICD10: R60.9] Ericka MCCORMICK [facility] CPT-4: 94487 12/21/2020 ([id number]) OFFICE/OUTPATIENT VISIT EST Diagnosis: Coronary artery disease[ICD10: I25.10] Diagnosis: Essential (primary) hypertension[ICD10: I10] Diagnosis: Stress reaction[ICD10: F43.0] Diagnosis: Insomnia[ICD10: G47.00] Diagnosis: Pulmonary nodule[ICD10: R91.1] Ericka Marianocurtispromise MCCORMICK [facility] CPT-4: 40146 11/10/2020 ([id number]) NO CHARGE Diagnosis: Mass of upper lobe of right lung[ICD10: R91.8] Ericka Anny MCCORMICK [facility] CPT-4: 23846 07/29/2020 ([id number]) OFFICE/OUTPATIENT VISIT EST Diagnosis: Fatigue[ICD10: R53.83] Diagnosis: Lymphadenopathy of head and neck[ICD10: R59.1] Diagnosis: Weight loss, non-intentional[ICD10: R63.4] Diagnosis: History of melanoma[ICD10: Z85.820] Diagnosis: Skin lesion[ICD10: L98.9] Sara Delgadovitormomo NUNEZ [facility] CPT-4: 47214 07/20/2020 ([id number]) OFFICE/OUTPATIENT VISIT EST Diagnosis: Urinary tract infection[ICD10: N39.0] Meena Martinezmichael RÍOS BUBBA MCCORMICK [facility] CPT-4: 79302 04/30/2020 ([id number]) OFFICE/OUTPATIENT VISIT EST Diagnosis: Dizziness[ICD10: R42] Diagnosis: Depressed mood with feeling of loneliness[ICD10: F32.9] Diagnosis: Insomnia[ICD10: G47.00] Ericka Anny HAYNESLINE Kayli CHANEL [facility] CPT-4: 18467 04/09/2020 ([id number]) NURSE/OUTPATIENT VISIT EST Diagnosis: Coronary artery disease[ICD10: I25.10] Diagnosis: Fatigue[ICD10: R53.83] Diagnosis: Essential (primary) hypertension[ICD10: I10] Ericka Garcíadeysi ERICKA Kayli MCCORMICK [facility] CPT-4: 26251 04/07/2020 ([id number]) OFFICE/OUTPATIENT VISIT EST Diagnosis: Fatigue[ICD10: R53.83] Meena Martinezimaldi [facility] CPT-4: 15378 11/22/2019 ([id number]) NURSE/OUTPATIENT VISIT EST Diagnosis: Essential (primary) hypertension[ICD10: I10] Diagnosis: Coronary artery disease[ICD10: I25.10] Diagnosis: Encounter for general adult medical examination with abnormal findings[ICD10: Z00.01] Ericka CHANCE KatherineNilda ANNY [employer] CPT-4: 35298 09/30/2019 ([id number]) OFFICE/OUTPATIENT VISIT NEW Diagnosis: Essential (primary) hypertension[ICD10: I10] Diagnosis: Coronary artery disease[ICD10: I25.10] Diagnosis: Aortic valve stenosis with insufficiency[ICD10: I35.2] Ericka Milan ANNY [employer] CPT-4: 18179 09/10/2019 Plan of Care Planned Activity Notes [...] ICD-10 : I25.10 05/05/2021 Appointment: Ericka Mccormicktel: [address] [place] [address] US FOLLOW UP 05/05/2021 Visit Plan: 04/30/2021 Appointment: Ericka Mccormick WPtel: [address] [place], [place] [phone] US LAB 04/30/2021 Appointment: Ericka Mccormick WPtel: [address] [place] [address] US scheduled by VC CANCELED 03/10/2021 Appointment: Ericka Mccormick WPtel: [address] [place] [address] patient unable to leave urine CANCELED Appointment: Ericka Mccormick WPtel: [address] [place], [place] [phone] [place] CANCELED 02/02/2021 Appointment: Ericka Mccormick WPtel: [address] [place], [place] [phone] US UA 02/02/2021 Care Plan: UA W/MICR ADD ON ORDER LOINC : 31851-4 Pending 01/26/2021 Visit Diagnosis Plan: Hematuria Discussion: Culture ur ine ICD-9 : 599.70 ICD-10 : R31.9 01/25/2021 Visit Diagnosis Plan: Blood loss anemia Discussion: Ch real CBC now ICD-9 : 280.0 ICD-10 : D50.0 01/25/2021 Appointment: Ericka Mccormick WPtel: [address] [place], [place] [phone] US ACUTE ILLNESS 01/25/2021 Appointment: Sara Aguila WPtel: [phone] [id number] [place] CANCELED 01/01/2021 Visit Diagnosis Plan: Anxiety [...] : K21.9 12/30/2020 Appointment: Ericka Mccormick WPtel: [address] [place], [place] [phone] US FOLLOW UP 12/30/2020 Appointment: Ericka Mccormick WPtel: [address] [place], [place] [phone] NURSE SERVICES 12/21/2020 Visit Diagnosis Plan: Insomnia [...] : F43.0 11/10/2020 Appointment: Ericka Mccormick WPtel: [address] [place] [place] [id number] FOLLOW UP 11/10/2020 Patient Education: trazodone- [employer] Coupon [phone] [email or web address].[email or web address]/resources/getResource/[email or web address] Completed 11/10/2020 Visit Diagnosis Plan: Mass of upper lobe of right lung Discussion: CT scan of lung results discussed with patient and told this looks like cancer Agrees to see pulmonology to see if will be amenable to bronchoscopy to get cells/washings ICD-9 : 786.6 ICD-10 : R91.8 07/29/2020 Appointment: Ericka Mccormick WPtel: [address] [place], [place] [phone] WORK IN 07/29/2020 Care Plan: Referral Order SNOMED-CT : [id number] Pending 07/29/2020 Care Plan: CT SFT TSUE NCK W/O & W/DYE L OINC : 38781-6 Pending 07/21/2020 Visit Diagnosis Plan: Fatigue Discussion: [...] Appointment: Sara Aguila WPtel: [phone] [facility] ACUTE ILLNESS [...] ICD-10 : N39.0 04/30/2020 Appointment: Meena Li [address] [place] [address] ACUTE ILLNESS 04/30/2020 Appointment: Meena Li [address] [place] [address] 04/21/2020 1020---patient needed seen fo r appointment [...] : F32.9 04/09/2020 Appointment: Ericka Mccormick WPtel: [phone] [facility] FOLLOW UP 04/09/2020 Care Plan: COMPREH[place]AB[place] : 16[address]-6 Pending 04/09/2020 Appointment: Ericka Mccormick WPtel: [address] [place], [place] [phone] LAB 04/07/2020 Visit Diagnosis Plan: Fatigue Discussion: no other sym ptoms other than fatigue for 4 weeks so will update labs. order sent to [facility] for blood work and ua with c&s. instructed to call office with new or worsening symptoms. ICD-9 : 780.79 ICD-10 : R53.83 11/22/2019 Appointment: Meena Li [facility]66[facility] TELEMEDICINE 11/22/2019 Appointment: Ericka Mccormick WPtel: [address] [place] [address] LAB 09/30/2019 Visit Diagnosis Plan: Coronary artery [...] : I10 09/10/2019 Appointment: Ericka Mccormick WPtel: [address] [place], [place] [phone] NEW PATIENT 09/10/2019 Patient Education: carvedilol- OptimizeRX Elvin [phone] [email or web address].[email or web address]/[employer]/resources/getResource/[email or web address] Completed 09/10/2019 Appointment: Ericka Mccormick WPtel: [address] [place], [place] [phone] US RESCHEDULED 08/20/2019 Appointment: Ericka Mccormick WPtel: [phone] [id number] US CANCELED 07/22/2019 Referral: Vikram Maguire WPtel: [phone] [facility] [address] [id number] [place] Referral Appointment Requested Instructions No Instructions Medical Equipment No Medical Equipment data Health Concerns Section Health Concerns data not found Goals Section Goals data not found Interventions Section Interventions data not found Health Status Evaluations/Outcomes Section Health Status Evaluations/Outcomes data not found Advance Directives No Advance Directive data
--- OUTSIDE RECORDS SUMMARY | 2021-05-18 09:20 | XMS REPORT | CCD ---
Author Author Erica Mccormick D.O. Organization [facility] Address [address] [place] [address] Phone Care Team Providers Care Accelerator Operator Name Role Phone PP Unavailable CCM Unavailable Summary Purpose Interface Exchange Insurance Providers Payer name Policy type / Coverage type Covered alliance party ID Effective Begin Date Effective End Date WPS MEDICARE PART B [place] Medicare Part B [id number] Unknown Unknown [employer] [place] MEDIC[place] SUPP Medicare Part B X [id number] Unknown Unknown Family History Family History data not found Social History Social History Element Codes Description Effective Dates Marital status Unknown 09/10/2019 Number of children Unknown 1 09/10/2019 Employment Unknown Retired 09/10/[address]: 3717620 Former smoker quit 201109/10/[address]: 343095 Currently drinks alcohol 09/09 Frequency of drinks SNOMED CT: 377086034 1-4 drinks per week Allergies, Adverse Reactions, [...] Fill Instructions tramadol 50 mg tablet RxNorm: 446219 1 Tablet(s) Oral t wo times a day as needed for pain 03/15/2021 No Stop Date Active ferrous sulfate 325 mg (65 mg iron) tablet RxNorm: 801133 Take 1 Tablet(s) Oral QD 01/28/2021 No Stop Date Active paroxetine 20 mg tablet RxNorm: 7568381 1 Tablet(s) Oral QD 021 01/20/2021 Inactive pantoprazole 20 mg tablet,delayed release RxNorm: 430843 1 Tablet(s) Oral two times a day 12/22/2020 03/21/2021 Inactive pantoprazole 20 mg tablet,delayed release RxNorm: 193983 1 Tablet(s) Oral two times a day 12/22/2020 12/22/2020 Inactive paroxetine 20 mg tablet RxNorm: 6594969 1 Tablet(s) Oral QD 021 12/15/2020 Inactive paroxetine 20 mg tablet RxNorm: 4716752 1 Tablet(s) Oral QD 021 12/15/2020 Inactive MagOx 400 mg (241.3 mg magnesium) tablet RxNorm: 172331 Take 1 Tablet(s) Oral every night at bedtime with melatonin 11/23/2020 01/24/2021 Inactive melatonin 3 mg tablet RxNorm: 853976 Take 1-2 Tablet(s) Oral every night at bedtime 11/18/2020 No Stop Date Active atorvastatin 40 mg tablet RxNorm: 558725 Take 1 Tablet( s) Oral every night at bedtime 11/10/2020 No Stop Date Active Plavix 75 mg tablet RxNorm: 685350 Take 1 Tablet(s) Oral QD No Stop Date Active trazodone 50 mg tablet RxNorm: 258378 Take 1-2 Tablet(s ) Oral QPM as needed for sleep 11/10/2020 11/22/2020 Inactive alprazolam 0.25 mg tablet RxNorm: 953968 1/2-1 Tablet(s ) Oral QPM as needed for sleep 08/03/2020 09/01/2020 Inactive alprazolam 0.25 mg tablet RxNorm: 636173 1/2-1 Tablet(s ) Oral QPM as needed for sleep 08/03/2020 08/02/2020 Inactive Aspirin Low Dose 81 mg tablet,delayed release RxNorm: 668525 1 Tablet(s) Oral QD 09/10/2019 No Stop Date Active losartan 25 mg tablet RxNorm: 319128 1 Tablet(s) Oral QD 09/10/2019 No Stop Date Active carvedilol 6.25 mg tablet RxNorm: 845323 1 Tablet(s) Oral two t imes a day 09/10/2019 11/09/2020 Inactive Fish Oil 1,000 mg (120 mg-180 mg) capsule RxNorm: 1 Caps ule(s) Oral QD 09/10/2019 11/25/2019 Inactive Medication Administered No Medication Administered data Immunizations No Immunization data Results Observation Observation Code Item Item Code Result Date S ervice Location UA W/MICR 62064 UA Protein TNP:Specimen Not Received Unknown UA W/MICR 02628 UA Hemoglobin TNP:Specimen Not Received 02/17/2021 Unknown UA W/MICR 85738 UA Glucose TNP:Specimen Not Received Unknown UA W/MICR 37554 UA Ketones TNP:Specimen Not Received Unknown UA W/MICR 91300 UA pH TNP:Specimen Not Received Unknown UA W/MICR 88247 U Spec [place] TNP:Specimen Not Received 02/17/2021 Unknown UA W/MICR 65277 UA Bilirubin TNP:Specimen Not Received 02/17/2021 Unknown UA W/MICR 45901 UA Leuk [place] TNP:Specimen Not Receive d 02/17/2021 Unknown UA W/MICR 87101 UA Nitrite TNP:Specimen Not Received Unknown UA W/MICR 69130 UA WBC/hpf TNP:Specimen Not Received Unknown UA W/MICR 81011 UA RBC hpf TNP:Specimen Not Received Unknown UA W/MICR 70122 UA Protein TNP:Specimen Integrity 01/27 Unknown UA W/MICR 96387 UA Hemoglobin TNP:Specimen Integrity Unknown UA W/MICR 87822 UA Glucose TNP:Specimen Integrity 01/27 Unknown UA W/MICR 54741 UA Ketones TNP:Specimen Integrity 01/27 Unknown UA W/MICR 33445 UA pH TNP:Specimen Integrity 2020 Unknown UA W/MICR 50003 U Spec [place] TNP:Specimen Integrity 1 Unknown UA W/MICR 37028 UA Bilirubin TNP:Specimen Integrity 09/2020 Unknown UA W/MICR 14810 UA Leuk [place] TNP:Specimen Integrity 01/27/2021 Unknown UA W/MICR 17792 UA Nitrite TNP:Specimen Integrity 01/27 Unknown UA W/MICR 13804 UA WBC/hpf TNP:Specimen Integrity 01/27 Unknown UA W/MICR 98549 UA RBC hpf TNP:Specimen Integrity 01/27 Unknown COMPLETE BLOOD COUNT [id number] WBC 6.1 10e9/L 01/26/20 21 Unknown COMPLETE BLOOD COUNT [id number] RBC 3.34 10e12/L 2020 Unknown COMPLETE BLOOD COUNT [id number] HEMOGLOBIN 8.8 g/dL 01/26/20 21 Unknown COMPLETE BLOOD COUNT [id number] HEMATOCRIT 28.5 % 01/26/20 21 Unknown COMPLETE BLOOD COUNT [id number] MCV 85.3 fL 1 Unknown COMPLETE BLOOD COUNT [id number] MCH 26.3 pg 1 Unknown COMPLETE BLOOD COUNT [id number] MCHC 30.9 g/dL 1 Unknown COMPLETE BLOOD COUNT [id number] PLATELET COUNT 268 10e9/L 07/2020 Unknown COMPLETE BLOOD COUNT [id number] Mean Plt Volume 8.7 fL 07/2020 Unknown COMPLETE BLOOD COUNT [id number] Neut Auto 67.7 % 1 Unknown COMPLETE BLOOD COUNT [id number] Lymph Auto 19.4 % 01/26/20 21 Unknown COMPLETE BLOOD COUNT [id number] [place] Auto 8.4 % 1 Unknown COMPLETE BLOOD COUNT [id number] RDW 16.7 % 1 Unknown COMPLETE BLOOD COUNT [id number] Eos Auto 3.8 % 1 Unknown COMPLETE BLOOD COUNT [id number] Baso Auto 0.7 % 1 Unknown COMPLETE BLOOD COUNT [id number] Neutrophil Abs 4.13 10e9/L Unknown COMPLETE BLOOD COUNT [id number] Lymphocyte Abs 1.18 10e9/L Unknown COMPLETE BLOOD COUNT [id number] Monocyte Abs 0.51 10e9/L 07/2020 Unknown COMPLETE BLOOD COUNT [id number] Eosinophil Abs 0.23 10e9/L Unknown COMPLETE BLOOD COUNT [id number] RDW-SD 50.9 fL Unknown COMPLETE BLOOD COUNT [id number] Basophil Abs 0.04 10e9/L 07/2020 Unknown GFR CALC [id number] GFR Non Afr Amr >60 mL/min 01/25/2021 Un known GFR CALC [id number] GFR Afr Amr >60 mL/min 01/25/2021 Unknow n COMPREHENSIVE METABOLIC 62493 AST 17 U/L 2020 Unknown COMPREHENSIVE METABOLIC 09096 ALT 13 U/L 2020 Unknown COMPREHENSIVE METABOLIC 94383 BUN 14 mg/dL 2020 Unknown COMPREHENSIVE METABOLIC 66576 ALBUMIN 4.1 g/dL 2020 Unknown COMPREHENSIVE METABOLIC 15448 CHLORIDE 102 mmol/L 01/25 Unknown COMPREHENSIVE METABOLIC 33878 Bili Total 0.4 mg/dL 01/25 Unknown COMPREHENSIVE METABOLIC 88994 ALK PHOS 85 U/L 2020 Unknown COMPREHENSIVE METABOLIC 00528 SODIUM 134 mmol/L 01/25 Unknown COMPREHENSIVE METABOLIC 94122 CREATININE 0.71 mg/dL 07/2020 Unknown COMPREHENSIVE METABOLIC 18522 CALCIUM 9.3 mg/dL 2020 Unknown COMPREHENSIVE METABOLIC 38293 POTASSIUM 4.3 mmol/L 01/25 Unknown COMPREHENSIVE METABOLIC 83492 Total Protein 7.0 g/dL Unknown COMPREHENSIVE METABOLIC 39287 Glucose 111 mg/dL 2020 Unknown COMPREHENSIVE METABOLIC 16206 Bicarbonate 24 mmol/L 07/2020 Unknown COMPREHENSIVE METABOLIC 64009 AGAP 8 mmol/L 2020 Unknown COMPREHENSIVE METABOLIC 59406 AST 16 U/L 2019 Unknown COMPREHENSIVE METABOLIC 69809 ALT 12 U/L 2019 Unknown COMPREHENSIVE METABOLIC 01976 BUN 13 mg/dL 2019 Unknown COMPREHENSIVE METABOLIC 94675 ALBUMIN 4.1 g/dL 2019 Unknown COMPREHENSIVE METABOLIC 30119 CHLORIDE 96 mmol/L 2019 Unknown COMPREHENSIVE METABOLIC 75819 Bili Total 1.1 mg/dL 04/09 Unknown COMPREHENSIVE METABOLIC 45358 ALK PHOS 80 U/L 2019 Unknown COMPREHENSIVE METABOLIC 53045 SODIUM 131 mmol/L 04/09 Unknown COMPREHENSIVE METABOLIC 07301 CREATININE 0.76 mg/dL 03/24 Unknown COMPREHENSIVE METABOLIC 59672 CALCIUM 9.0 mg/dL 2019 Unknown COMPREHENSIVE METABOLIC 98157 POTASSIUM 4.2 mmol/L 04/09 Unknown COMPREHENSIVE METABOLIC 69702 Total Protein 6.8 g/dL Unknown COMPREHENSIVE METABOLIC 67424 Glucose 101 mg/dL 2019 Unknown COMPREHENSIVE METABOLIC 79640 Bicarbonate 25 mmol/L 03/24 Unknown COMPREHENSIVE METABOLIC 49338 AGAP 10 mmol/L 2019 Unknown GFR CALC [id number] GFR Non Afr Amr >60 mL/min 04/09/2020 Un known GFR CALC [id number] GFR Afr Amr >60 mL/min 04/09/2020 Unknow n GAMMA GLUTAMYL TRANSFERASE 59878 GGT 19 U/L Unknown COMPLETE BLOOD COUNT [id number] WBC 6.3 10e9/L 04/07/20 20 Unknown COMPLETE BLOOD COUNT [id number] RBC 4.36 10e12/L 2019 Unknown COMPLETE BLOOD COUNT 4206962 HEMOGLOBIN 15.2 g/dL 04/07/20 20 Unknown COMPLETE BLOOD COUNT 7694501 HEMATOCRIT 43.8 % 04/07/20 20 Unknown COMPLETE BLOOD COUNT [id number] MCV 100.5 fL 0 Unknown COMPLETE BLOOD COUNT 2530126 MCH 34.9 pg 0 Unknown COMPLETE BLOOD COUNT 9043543 MCHC 34.7 g/dL 0 Unknown COMPLETE BLOOD COUNT 4706849 PLATELET COUNT 254 10e9/L Unknown COMPLETE BLOOD COUNT 5748399 Mean Plt Volume 9.9 fL Unknown COMPLETE BLOOD COUNT 0972510 Neut Auto 63.3 % 0 Unknown COMPLETE BLOOD COUNT 1352909 Lymph Auto 24.5 % 04/07/20 20 Unknown COMPLETE BLOOD COUNT 0936307 [place] Auto 8.4 % 0 Unknown COMPLETE BLOOD COUNT 6175338 RDW 12.8 % 0 Unknown COMPLETE BLOOD COUNT 1139420 Eos Auto 3.2 % 0 Unknown COMPLETE BLOOD COUNT 2290461 Baso Auto 0.6 % 0 Unknown COMPLETE BLOOD COUNT [id number] Neutrophil Abs 3.99 10e9/L Unknown COMPLETE BLOOD COUNT 6135798 Lymphocyte Abs 1.54 10e9/L Unknown COMPLETE BLOOD COUNT [id number] Monocyte Abs 0.53 10e9/L 03/24 Unknown COMPLETE BLOOD COUNT 3986888 Eosinophil Abs 0.20 10e9/L Unknown COMPLETE BLOOD COUNT 9754242 RDW-SD 47.6 fL 0 Unknown COMPLETE BLOOD COUNT 4309952 Basophil Abs 0.04 10e9/L 03/24 Unknown VITAMIN B 12 09723 VITAMIN B12 661 pg/mL 04/07/2020 Unkn own LIPID GROUP 33462 Cholesterol 168 mg/dL 09/30/2019 Unkno wn LIPID GROUP 64272 Triglyceride 141 mg/dL 09/30/2019 Unkn own [facility] 30535 HDL CHOLESTEROL 66 mg/dL 09/30/2019 U nknown LIPID GROUP 13449 Chol/HDL Ratio 2.55 ratio 09/30/2019 U nknown LIPID GROUP 94258 NON-HDL Chol 102 mg/dL 09/30/2019 Unkn own LIPID GROUP 75951 LDL Cholesterol 74 mg/dL 09/30/2019 U nknown FREE T4 71909 T4 Free 0.76 ng/dL 09/30/2019 Unknown THYROID STIMULATING HORMONE 12075 TSH 2.186 uIU/mL 09/30/2019 Unknown GFR CALC 4270987 GFR Non Afr Amr >60 mL/min 09/30/2019 Un known GFR CALC 9830631 GFR Afr Amr >60 mL/min 09/30/2019 Unknow n COMPREHENSIVE METABOLIC 88136 AST 14 U/L 2019 Unknown COMPREHENSIVE METABOLIC 81907 ALT 11 U/L 2019 Unknown COMPREHENSIVE METABOLIC 46856 BUN 15 mg/dL 2019 Unknown COMPREHENSIVE METABOLIC 22544 ALBUMIN 4.0 g/dL 2019 Unknown COMPREHENSIVE METABOLIC 81572 CHLORIDE 96 mmol/L 2019 Unknown COMPREHENSIVE METABOLIC 08275 Bili Total 0.9 mg/dL 09/29 Unknown COMPREHENSIVE METABOLIC 14625 ALK PHOS 72 U/L 2019 Unknown COMPREHENSIVE METABOLIC 38194 SODIUM 132 mmol/L 09/29 Unknown COMPREHENSIVE METABOLIC 68779 CREATININE 0.73 mg/dL 11/2019 Unknown COMPREHENSIVE METABOLIC 91118 CALCIUM 9.1 mg/dL 2019 Unknown COMPREHENSIVE METABOLIC 41537 POTASSIUM 4.6 mmol/L 09/29 Unknown COMPREHENSIVE METABOLIC 25515 Total Protein 6.4 g/dL Unknown COMPREHENSIVE METABOLIC 29187 Glucose 97 mg/dL 2019 Unknown COMPREHENSIVE METABOLIC 70789 Bicarbonate 25 mmol/L 11/2019 Unknown COMPREHENSIVE METABOLIC 84980 AGAP 11 mmol/L 2019 Unknown COMPLETE BLOOD COUNT 9992117 WBC 5.3 10e9/L 09/30/19 20 Unknown COMPLETE BLOOD COUNT 8908437 RBC 4.16 10e12/L 2019 Unknown COMPLETE BLOOD COUNT 8756261 HEMOGLOBIN 14.1 g/dL 09/30/19 20 Unknown COMPLETE BLOOD COUNT 8842316 HEMATOCRIT 42.6 % 09/30/19 20 Unknown COMPLETE BLOOD COUNT 2785194 MCV 102.4 fL 0 Unknown COMPLETE BLOOD COUNT 5292665 MCH 33.9 pg 0 Unknown COMPLETE BLOOD COUNT 9566208 MCHC 33.1 g/dL 0 Unknown COMPLETE BLOOD COUNT 9275931 PLATELET COUNT 273 10e9/L 11/2019 Unknown COMPLETE BLOOD COUNT 6738679 Mean Plt Volume 9.4 fL 11/2019 Unknown COMPLETE BLOOD COUNT 7470107 Neut Auto 57.3 % 0 Unknown COMPLETE BLOOD COUNT 1211330 Lymph Auto 29.3 % 09/30/19 20 Unknown COMPLETE BLOOD COUNT 0890064 [place] Auto 7.6 % 0 Unknown COMPLETE BLOOD COUNT 0355050 RDW 13.8 % 0 Unknown COMPLETE BLOOD COUNT 5132424 Eos Auto 4.5 % 0 Unknown COMPLETE BLOOD COUNT 4576166 Baso Auto 1.3 % 0 Unknown COMPLETE BLOOD COUNT 7732540 Neutrophil Abs 3.04 10e9/L Unknown COMPLETE BLOOD COUNT 1445424 Lymphocyte Abs 1.55 10e9/L Unknown COMPLETE BLOOD COUNT 1604023 Monocyte Abs 0.40 10e9/L 11/2019 Unknown COMPLETE BLOOD COUNT 1531686 Eosinophil Abs 0.24 10e9/L Unknown COMPLETE BLOOD COUNT 6018269 RDW-SD 50.7 fL 0 Unknown COMPLETE BLOOD COUNT [id number] Basophil Abs 0.07 10e9/L 06/0 11/2019 Unknown Procedures Procedure Codes Date ROUTINE VENIPUNCTURE CPT-4: 12628 04/30/2021 COMPREHEN METABOLIC PANEL CPT-4: 99862 04/30/2021 COMPLETE CBC W/AUTO DIFF WBC CPT-4: 85324 04/30/2021 UA W/MICR CPT-4: 98519 02/15/2021 URINE CULTURE/ COLONY COUNT CPT-4: 80524 02/02/2021 ROUTINE VENIPUNCTURE CPT-4: 42550 01/25/2021 COMPREHEN METABOLIC PANEL CPT-4: 36115 01/25/2021 COMPLETE CBC W/AUTO DIFF WBC CPT-4: 77581 01/25/2021 URINE CULTURE/ COLONY COUNT CPT-4: 24042 01/25/2021 URINALYSIS NONAUTO W/O SCOPE CPT-4: 19531 01/25/2021 ROUTINE VENIPUNCTURE CPT-4: 42914 07/20/2020 COMPREHEN METABOLIC PANEL CPT-4: 51688 07/20/2020 ASSAY OF FREE THYROXINE CPT-4: 84055 07/20/2020 ASSAY THYROID STIM HORMONE CPT-4: 80331 07/20/2020 COMPLETE CBC W/AUTO DIFF WBC CPT-4: 62345 07/20/2020 RBC SED RATE AUTOMATED CPT-4: 49426 07/20/2020 URINALYSIS NONAUTO W/O SCOPE CPT-4: 77432 04/30/2020 URINE CULTURE/ COLONY COUNT CPT-4: 98609 04/30/2020 ROUTINE VENIPUNCTURE CPT-4: 63574 04/07/2020 COMPLETE CBC W/AUTO DIFF WBC CPT-4: 80678 04/07/2020 VITAMIN B-12 CPT-4: 79781 04/07/2020 ASSAY OF GGT CPT-4: 28069 04/07/2020 ROUTINE VENIPUNCTURE CPT-4: 88166 09/30/2019 ASSAY OF FREE THYROXINE CPT-4: 76891 09/30/2019 ASSAY THYROID STIM HORMONE CPT-4: 06582 09/30/2019 COMPREHEN METABOLIC PANEL CPT-4: 61897 09/30/2019 COMPLETE CBC W/AUTO DIFF WBC CPT-4: 58178 09/30/2019 LIPID PANEL CPT-4: 31169 09/30/2019 Vital Signs Date Vital 01/25/2021 Blood Pressure 1: 102/68 Code: 8480-6 Heart Rate 1: 76 bpm Respiratory Rate: 20 bpm SpO2: 100% Temperature: 36.9 (C) / 98.5 (F) We ight: 87 lbs Code: 46565-5 12/30/2020 Blood Pressure 1: 134/80 Code: 8480-6 BMI: 14.1 Code: 42105-1 Heart Rate 1: 72 bpm Height: 5'5" Code: 8302-2 Respiratory Rate: 18 bpm SpO2: 97% Temperature: 36.6 (C) / 97.8 (F) Weight: 85 lbs Code: 89869-2 11/10/2020 Blood Pressure 1: 130/74 Code: 8480-6 Heart Rate 1: 56 bpm Respiratory Rate: 20 bpm SpO2: 98% Temperature: 36.3 (C) / 97.4 (F) We ight: 85 lbs Code: 68227-0 07/29/2020 Blood Pressure 1: 121/65 Code: 8480-6 BMI: 14.3 Code: 07630-8 Heart Rate 1: 58 bpm Height: 5'5" Code: 8302-2 Respiratory Rate: 15 bpm SpO2: 98% Temperature: 36.9 (C) / 98.4 (F) Weight: 86 lbs Code: 53027-7 07/20/2020 Blood Pressure 1: 123/69 Code: 8480-6 Heart Rate 1: 68 bpm Respiratory Rate: 15 bpm SpO2: 99% Temperature: 36.6 (C) / 97.8 (F) We ight: 83 lbs Code: 29400-5 04/30/2020 Blood Pressure 1: 128/82 Code: 8480-6 Heart Rate 1: 68 bpm Respiratory Rate: 20 bpm SpO2: 95% Temperature: 36.5 (C) / 97.7 (F) We ight: 91 lbs Code: 96066-9 04/09/2020 Blood Pressure 1: 130/78 Code: 8480-6 Heart Rate 1: 68 bpm Respiratory Rate: 20 bpm SpO2: 99% Temperature: 36.3 (C) / 97.4 (F) We ight: 90 lbs Code: 70841-2 11/22/2019 Temperature: 36.3 (C) / 97.3 (F) 09/10/2019 Blood Pressure 1: 128/72 Code: 8480-6 BMI: 15.6 Code: 78437-2 Heart Rate 1: 68 bpm Height: 5'5" Code: 8302-2 Respiratory Rate: 20 bpm SpO2: 97% Temperature: 36.6 (C) / 97.9 (F) Weight: 94 lbs Code: 55105-8 Functional Status No Functional Status data Reason [...] R53.83] Diagnosis: Blood loss anemia[ICD10: D50.0] Ericka PEPPERWorkables CPT-4: 19011 04/30/2021 ([id number]) NURSE/OUTPATIENT VISIT EST Diagnosis: Urinary tract infection[ICD10: N39.0] Ericka PEPPERER Jelli CPT-4: 17262 02/02/2021 ([id number]) OFFICE/OUTPATIENT VISIT EST Diagnosis: Fatigue[ICD10: R53.83] Diagnosis: Blood loss anemia[ICD10: D50.0] Diagnosis: Coronary artery disease[ICD10: I25.10] Diagnosis: Hematuria[ICD10: R31.9] Ericka Milan AledadeSHANTANU CHANEL Jelli CPT-4: 51075 01/25/2021 ([id number]) OFFICE/OUTPATIENT VISIT EST Diagnosis: GERD (gastroesophageal reflux disease)[ICD10: K21.9] Diagnosis: Duodenal ulcer[ICD10: K26.9] Diagnosis: Coronary artery disease[ICD10: I25.10] Diagnosis: Anxiety[ICD10: F41.9] Diagnosis: Blood loss anemia[ICD10: D50.0] Ericka MCCORMICK [facility] CPT-4: 63638 12/30/2020 ([id number]) NURSE/OUTPATIENT VISIT EST Diagnosis: Edema[ICD10: R60.9] Ericka MCCORMICK [facility] CPT-4: 59113 12/21/2020 ([id number]) OFFICE/OUTPATIENT VISIT EST Diagnosis: Coronary artery disease[ICD10: I25.10] Diagnosis: Essential (primary) hypertension[ICD10: I10] Diagnosis: Stress reaction[ICD10: F43.0] Diagnosis: Insomnia[ICD10: G47.00] Diagnosis: Pulmonary nodule[ICD10: R91.1] [facility]: 73910 11/10/2020 ([id number]) NO CHARGE Diagnosis: Mass of upper lobe of right lung[ICD10: R91.8] Ericka MCCORMICK [facility] CPT-4: 86594 07/29/2020 ([id number]) OFFICE/OUTPATIENT VISIT EST Diagnosis: Fatigue[ICD10: R53.83] Diagnosis: Lymphadenopathy of head and neck[ICD10: R59.1] Diagnosis: Weight loss, non-intentional[ICD10: R63.4] Diagnosis: History of melanoma[ICD10: Z85.820] Diagnosis: Skin lesion[ICD10: L98.9] Sara Aguila ERICKA NUNEZ [facility] CPT-4: 38321 07/20/2020 ([id number]) OFFICE/OUTPATIENT VISIT EST Diagnosis: Urinary tract infection[ICD10: N39.0] Meena Ferreiradi [facility] CPT-[facility]: 95822 04/30/2020 ([id number]) OFFICE/OUTPATIENT VISIT EST Diagnosis: Dizziness[ICD10: R42] Diagnosis: Depressed mood with feeling of loneliness[ICD10: F32.9] Diagnosis: Insomnia[ICD10: G47.00] Ericka CHANEL Jelli CPT-4: 37801 04/09/2020 ([id number]) NURSE/OUTPATIENT VISIT EST Diagnosis: Coronary artery disease[ICD10: I25.10] Diagnosis: Fatigue[ICD10: R53.83] Diagnosis: Essential (primary) hypertension[ICD10: I10] Ericka Anny MCCORMICK Jelli CPT-4: 05823 04/07/2020 ([id number]) OFFICE/OUTPATIENT VISIT EST Diagnosis: Fatigue[ICD10: R53.83] Meena iL [facility] CPT-4: 03519 11/22/2019 ([id number]) NURSE/OUTPATIENT VISIT EST Diagnosis: Essential (primary) hypertension[ICD10: I10] Diagnosis: Coronary artery disease[ICD10: I25.10] Diagnosis: Encounter for general adult medical examination with abnormal findings[ICD10: Z00.01] Ericka Anny MCCORMICK Jelli CPT-4: 93001 09/30/2019 ([id number]) OFFICE/OUTPATIENT VISIT NEW Diagnosis: Essential (primary) hypertension[ICD10: I10] Diagnosis: Coronary artery disease[ICD10: I25.10] Diagnosis: Aortic valve stenosis with insufficiency[ICD10: I35.2] Ericka Anny MCCORMICK Jelli CPT-4: 37203 09/10/2019 Plan of Care Planned Activity Notes Codes Status Date Appointment: [facility] [phone] [facility] [facility] scheduled by VC CANCELED 03/10/2021 Appointment: Eric[facility]ccormick [facility] [phone] [facility] [facility] patient unable to leave urine CANCELED Appointment: Eric[facility]ccormick [facility]el[facility] [phone] [facility] [facility] CANCELED 02/02/2021 Appointment: Ericka Mccormick WPtel: [address] [place], [place] [phone] UA 02/02/2021 Care Plan: UA W/MICR ADD ON ORDER LOINC : 08229-9 Pending 01/26/2021 Visit Diagnosis Plan: Hematuria Discussion: Culture ur ine ICD-9 : 599.70 ICD-10 : R31.9 01/25/2021 Visit Diagnosis Plan: Blood loss anemia Discussion: Ch real CBC now ICD-9 : 280.0 ICD-10 : D50.0 01/25/2021 Appointment: Ericka Mccormick WPtel: [address] [place], [place] [phone] ACUTE ILLNESS 01/25/2021 Appointment: Sara Aguila [facility] [phone] [facility] [place] CANCELED 01/01/2021 Visit Diagnosis Plan: Anxiety [...] : K21.9 12/30/2020 Appointment: Ericka Mccormick WPtel: [address] [place], [place] [phone] FOLLOW UP 12/30/2020 Appointment: Ericka Mccormick WPtel: [address] [place], [place] [phone] NURSE SERVICES 12/21/2020 Visit Diagnosis Plan: Insomnia [...] F43.0 11/10/2020 Appointment: Ericka Mccormick [facility]el[facility] [phone] [facility] [facility] FOLLOW UP 11/10/2020 Patient Education: trazodone- Opt[employer] Coupon [id number] https://www.[employer]/samplemd/resources/getResource/61/[email or web address]-[email or web address] Completed 11/10/2020 Visit Diagnosis Plan: Mass of upper lobe of right lung Discussion: CT scan of lung results discussed with patient and told this looks like cancer Agrees to see pulmonology to see if will be amenable to bronchoscopy to get cells/washings ICD-9 : 786.6 ICD-10 : R91.8 07/29/2020 Appointment: Ericka Mccormick [facility]el[facility] [phone] [facility] [facility] WORK IN 07/29/2020 Care Plan: Referral Order SNOMED-CT : 30 [id number] Pending 07/29/2020 Care Plan: CT SFT TSUE NCK W/O & W/DYE L OINC : 02582-0 Pending 07/21/2020 Visit Diagnosis Plan: Fatigue Discussion: [...] 07/20/2020 Appointment: Mingo Sara WPtel: [phone] ACUTE ILLNESS 07/20/2020 Patient Education: Patient [...] ICD-10 : N39.0 04/30/2020 Appointment: Meena Li [address] [place] [address] ACUTE ILLNESS 04/30/2020 Appointment: Meena Li [address] [place] [address] 04/21/2020 1020---patient needed seen fo r appointment [...] F32.9 04/09/2020 Appointment: Ericka Mccormick WPtel: [phone] FOLLOW UP 04/09/2020 Care Plan: COMPREHEN METABOLIC [place] : 77523-8 Pending 04/09/2020 Appointment: Ericka Mccormick WPtel: [address] [place], [place] [phone] US LAB 04/07/2020 Visit Diagnosis Plan: Fatigue Discussion: no other sym ptoms other than fatigue for 4 weeks so will update labs. order [place] [facility] [place] work and ua with c&s. instructed to call office with new or worsening symptoms. ICD-9 : 780.79 ICD-10 : R53.83 11/22/2019 Appointment: Meena Li [address] [place] [address] TELEMEDICINE 11/22/2019 Appointment: Ericka Mccormick WPtel: [address] [place] [address] US LAB 09/30/2019 Visit Diagnosis Plan: Coronary [...] : I10 09/10/2019 Appointment: Ericka Mccormick WPtel: [address] [place] [address] NEW PATIENT 09/10/2019 Patient Education: carvedilol- [employer] Coupon [id number] https://www.[employer]/samplemd/resources/getResource/61/[email or web address]-4815-[email or web address] Completed 09/10/2019 Appointment: Ericka Mccormick WPtel: [address] [place], [place] [address] RESCHEDULED 08/20/2019 Appointment: Erikca Mccormick WPtel: [phone] [id number] [place] CANCELED 07/22/2019 Referral: Vikram Maguire WPtel: [phone] [facility] [address] [id number] [place] Referral Appointment Requested Instructions No Instructions Medical Equipment No Medical Equipment data Health Concerns Section Health Concerns data not found Goals Section Goals data not found Interventions Section Interventions data not found Health Status Evaluations/Outcomes Section Health Status Evaluations/Outcomes data not found Advance Directives No Advance Directive data
[2021-05-18] MEDS: NS IV 1000 ML 1,000 ML IV SCH ×5 (09:42→19:52)
[2021-05-18 09:45] LABS: HEMATOCRIT 38 % (35-52); HEMOGLOBIN 11.9 g/dL (11.5-16.0); MEAN CORPUSCULAR HEMOGLOBIN 29 pg (25-34); MEAN CORPUSCULAR HGB CONC 31 g/dL (32-36); MEAN CORPUSCULAR VOLUME 93 fL (80-99); MEAN PLATELET VOLUME 9.1 fL (9.0-12.2); PLATELET COUNT 270 10^3/uL (130-400); WHITE BLOOD COUNT 6.2 10^3/uL (4.3-11.0)
[2021-05-18 10:07] LABS: INR 1.1 (0.8-1.4); PROTHROMBIN TIME PATIENT 14.3 SEC (12.2-14.7)
[2021-05-18 10:16] LABS: ALBUMIN 4.4 GM/DL (3.2-4.5); BILIRUBIN,TOTAL 0.6 MG/DL (0.1-1.0); CALCIUM 9.4 MG/DL (8.5-10.1); CREATININE SERUM 0.75 MG/DL (0.60-1.30); POTASSIUM 3.8 MMOL/L (3.6-5.0); TOTAL PROTEIN 8.1 GM/DL (6.4-8.2)
[~2021-05-18 11:00] MED LIST changes: +EPTIFIBATIDE BOLUS 10 ML IV ONE; +HEParin (CATH LAB) 2,000 ML IV ONE; +HEParin 1000 UNIT/ML (10ML VIAL) FOR BOLUS ONE; +LIDOCAINE 1% INJ 20 ML VIAL ONE; +MIDAZOLAM 5 MG/5 ML (VERSED) VIAL ONE; +NITRO DRIP 25000 MCG/D5W 250 ML IV ONE; +NS IV 1000 ML 1,000 ML ONE; +fentaNYL INJ 100 MCG/2 ML AMP ONE
[2021-05-18] MEDS ORDERED: ASPIRIN 81 MG CHEW (CHILDREN'S ASA) ONE (11:06)
[2021-05-18] MEDS ORDERED: CLOPIDOGREL 75 MG (PLAVIX) TABLET ONE (11:06)
--- NOTE | 2021-05-18 11:11 | Cardiac Procedure Note-CS/ASA ---
Pre-Procedure Note Pre-Op Procedure Note H&P Reviewed The H&P was reviewed, patient examined and no changes noted. Date H&P Reviewed: May 18, 2021 Time H&P Reviewed: 09:45 Conscious Sedation Pre-Proced Time 09:45 ASA Score 3 For ASA 3 and 4: Consider anesthesia and medical clearance. Also, for patients with a history of failed moderate sedation consider anesthesia. Airway Lungs Heart ASA score ASA 1: a normal healthy patient ASA 2: a patient with a mild systemic disease (mid diabetes, controlled hypertension, obesity ASA 3: a patient with a severe systemic disease that limits activity (angina, COPD, prior Myocardial infarction) ASA 4: a patient with an incapacitating disease that is a constant threat to life (CHF, renal failure) ASA 5: a moribund patient not expected to survive 24 hrs. (ruptured aneurysm) ASA 6: a declared brain- patient whose organs are being harvested. For emergent operations, add the letter E after the classification Mallampati Classification Grade 2 Sedation Plan Analgesia, Amnesia, Plan communicated to team members, Discussed options with patient/fam, Discussed risks with patient/fam The patient is an appropriate candidate to undergo the planned procedure, sedation, and anesthesia. The patient immediately re-assessed prior to indication. TEMITOPE KUO MD FACP FAC CCDS May 18, 2021 11:11
[2021-05-18] MEDS ORDERED: PATIENT MAY USE OWN MEDS, ALL PO SCH (11:15)
[2021-05-18 11:37] VITALS: BP 145/82
[2021-05-18] MEDS ORDERED: CLOPIDOGREL 75 MG (PLAVIX) TABLET PO SCH (12:00)
--- NOTE | 2021-05-18 12:15 | CARDIAC CATHETERIZATION ---
DATE OF SERVICE: 05/18/2021 CORONARY INTERVENTION REPORT INDICATION FOR PROCEDURE: The patient is an 81-year-old lady, who is known to have coronary artery disease and who had stenting of the mid left anterior descending artery in 09/2020. She was found to have a severe mid vessel right coronary artery disease at that time as well. Staged intervention had been recommended, but she had refused right coronary intervention until recently. She has now provided informed consent and was brought in for the intervention. DESCRIPTION OF PROCEDURE: She was brought to the cardiac catheterization laboratory in a fasting state. Right groin was prepared and draped in the usual sterile fashion. Lidocaine 1% was used for local anesthesia. Modified Seldinger technique was used to advance a 6-Uzbek sheath in the right femoral artery. We used a 6-Uzbek JR4 guide catheter with side holes to engage the right coronary artery. Engagement was difficult, but adequate. We gave 4000 units of intravenous heparin and double bolus of Integrilin during the interventional procedure. We used a ChoICE floppy wire to cross the lesion in the left anterior descending and we were able to advance that wire only into the right ventricular branch immediately past the lesion. We carried out balloon angioplasty with a 2.0 x 12 mm balloon, which improved the stenosis from near total to approximately 80%. Prior to ballooning, we did attempt advancing a second wire into the distal right coronary artery proper, but we were not able to do so. Therefore, we carried out balloon angioplasty because the lesion appeared prior to the bifurcation of the artery into the right ventricular branch and the continuation of the right coronary. Following balloon angioplasty, we planned to stent the lesion, but we lost the wire in an attempt to advance a stent. We reengaged with the guide and at this time, we were able to advance the ChoICE floppy wire into the right coronary continuation following the lesion. We were then able to stent it with Skypoint 2.5 x 8 mm stent, which was deployed at 12 atmospheres. Subsequent angiography reveals no significant residual stenosis at the previous site of a near total occlusion. Flow throughout the vessel is normal. She tolerated the procedure well. The sheath was sutured in place and she was transferred to the floor for manual sheath removal. CORONARY ANGIOGRAPHY: Right coronary artery is dominant and had a near total occlusion in its mid portion. There is diffuse calcification and diffuse moderate disease of the right coronary as well. Following intervention to the mid right coronary artery, there is no significant residual stenosis after a Skypoint 2.5 x 8 mm stent has been deployed. CONCLUSION: Successful intervention to a near total occlusion in the mid right coronary with Skypoint 2.5 x 8 mm stent with no significant residual. Job ID: [id number] DocumentID: [id number] Dictated Date: 05/18/2021 11:09:54 Jar Filler Date: 05/18/2021 12:15:05 Dictated By: TEMITOPE KUO MD, MA, FACP, FACC,
[2021-05-18] MEDS ORDERED: ATROPINE INJ 0.4 MG/ML SDV ONE (13:22)
[2021-05-18] MEDS: PANTOPRAZOLE 40 MG (PROTONIX) TAB PO SCH (15:50)
[2021-05-18 16:00] VITALS: BP 108/87
[2021-05-18] MEDS: ACETAMINOPHEN 325 MG TABLET PO PRN (19:02)
[2021-05-18 19:32] VITALS: BP 123/64
[2021-05-18 23:27] VITALS: BP 96/69
[2021-05-19] MEDS: ACETAMINOPHEN 325 MG TABLET PO PRN (01:23)
[2021-05-19 04:11] VITALS: BP 117/52
[2021-05-19] MEDS: PANTOPRAZOLE 40 MG (PROTONIX) TAB PO SCH (06:55)
[2021-05-19] MEDS: NS IV 1000 ML 1,000 ML IV SCH (07:15)
[2021-05-19 07:49] VITALS: BP 154/74
--- NOTE | 2021-05-19 08:05 | Progress Note - Cardiology ---
Cardiology SOAP Progress Note Subjective: Lying in bed No c/o CP, SOB or palpitations Mod right groin discomfort with palpation Objective: I&O/Vital Signs 05/18/21 05/19/21 05/19/21 05/19/21 23:27 01:00 04:11 07:44 Temp 37.1 37.4 Pulse 57 65 68 64 Resp 22 22 B/P (MAP) 96/69 (78) 117/52 (73) Pulse Ox 99 98 O2 Delivery Room Air Room Air 05/19/21 07:49 Temp 36.7 Pulse 64 Resp 14 B/P (MAP) 154/74 (100) Pulse Ox 18 O2 Delivery Room Air Side: right Groin site without hematoma: Yes Condition: DP/PT pulses palpable, extremity w/d/p Bruising: moderated bruising Constitutional: AAO x 3, well-developed, other (thin) Respiratory: No accessory muscle use, No respiratory distress; chest expansion is symmetric, chest is bilaterally symmetric, lungs clear to auscultation Cardiovascular: regular rate-rhythm; No JVD; S1 and S2 Gastrointestional: No tender; soft, audible bowel sounds Extremities: no lower extremity edema bilateral Neurologic/Psychiatric: grossly intact (moves all extremities) Skin: No rash on exposed areas, No ulcerations on exposed areas Results/Procedures: Labs Laboratory Tests 05/18/21 09:41: White Blood Count 6.2, Red Blood Count 4.14, Hemoglobin 11.9, Hematocrit 38, Mean Corpuscular Volume 93, Mean Corpuscular Hemoglobin 29, Mean Corpuscular Hemoglobin Concent 31L, Red Cell Distribution Width 15.1H, Platelet Count 270, Mean Platelet Volume 9.1, Prothrombin Time 14.3, INR Comment 1.1, Activated Partial Thromboplast Time 26, Sodium Level 136, Potassium Level 3.8, Chloride Level 103, Carbon Dioxide Level 22, Anion Gap 11, Blood Urea Nitrogen 16, Creatinine 0.75, Estimat Glomerular Filtration Rate 79, BUN/Creatinine Ratio 21, Glucose Level 106H, Calcium Level 9.4, Corrected Calcium 9.1, Total Bilirubin 0.6, Aspartate Amino Transf (AST/SGOT) 18, Alanine Aminotransferase (ALT/SGPT) 15, Alkaline Phosphatase 104, Total Protein 8.1, Albumin 4.4, Triglycerides Level 134, Cholesterol Level 193, LDL Cholesterol Direct 115, VLDL Cholesterol 27, HDL Cholesterol 62H Microbiology 05/18/21 MRSA Screen - Final, Complete MRSA not isolated Procedures S/P cardiac cath with successful intervention on 05-18-21. Please refer to cardiac cath report of same date for details. A/P: Assessment: Coronary artery disease: - Echocardiogram of 10-08-20 showed mild concenteric hypertrophy. LVEF 40-45%. Grade 1 diastolic dysfunction. Mod AoR. PASP 30-35 mmHg - Cath of 10/13/20: tandem 99% stenoses in the mid left anterior descending, which were successfully treated with deployment of a Mary 2.5 x 28 mm stent. The left circumflex artery has mild plaques. Right coronary artery has 95% mid vessel stenosis (not intervented on, she has not agreed yet) . Normal left ventricular end diastolic pressure. Moderate impairment of global left ventricular systolic function with ejection fraction approximately 40%. - Cardiac cath of 05-18-21: Successful intervention to a near total occlusion in the mid right coronary with Skypoint 2.5 x 8 mm stent with no significant residual. Syncope - of undetermined etiology on 09/25/20, none since cor intervention Hypertension - treated chronically with losartan H/o severe anemia - due to GI bleed from PUD as documented on upper endoscopy by Dr [facility] - Musculoskeletal w/u in the ER after syncope of 09/25/20 showed acute spinous precess fractures of C6 and C7 Underweight - (BMI approx 15). Considerable, unintentional wgt loss since 2017, managed by her pcp H/O tobaccoism - Quit smoking in 2011 Mild, chronic, hyponatremia - of undetermined etiology, managed by her pcp Hard of hearing Plan: S/P successful coronary intervention on 05-18-21 Ok to discharge home today Continue DAPT Advise out pt f/u in 1-2 weeks FACUNDO SANTO May 19, 2021 08:05
[2021-05-19] MEDS ORDERED: BALANCE OF NATURE PO SCH (09:00)
[2021-05-19] MEDS ORDERED: ASPIRIN 81 MG CHEW (CHILDREN'S ASA) PO SCH (09:00)
--- NOTE | 2021-05-19 11:32 | Discharge Inst-Cardiology ---
Discharge Inst-Cardiac Discharge Medications Continued Medications: Aspirin (Aspirin) 81 Mg Tab.chew 81 MG PO DAILY, TAB [Balance Of Nature] () 1 EA PO DAILY Clopidogrel Bisulfate (Clopidogrel) 75 Mg Tablet 75 MG PO 1200, TAB Pantoprazole Sodium (Pantoprazole Sodium) 40 Mg Tablet. 40 MG PO BIDAC, #60 TAB Patient Instructions Patient Instructions: Please schedule follow up appointment to see Dr. Daniel in 1-2 weeks FACUNDO SANTO May 19, 2021 11:32
--- NOTE | 2021-05-19 16:29 | Progress Note - Cardiology ---
Cardiology SOAP Progress Note Subjective: No cp or palp or syncope or shortness of breath No focal weakness No n/v/d Bruising of groin, no leg discoloration Objective: I&O/Vital Signs 05/19/21 05/19/21 05/19/21 07:44 07:49 09:00 Temp 36.7 Pulse 64 64 Resp 14 B/P (MAP) 154/74 (100) Pulse Ox 18 O2 Delivery Room Air Room Air Side: right Groin site without hematoma: Yes Condition: DP/PT pulses palpable, extremity w/d/p Bruising: moderated bruising Constitutional: AAO x 3, well-developed, other (thin) Respiratory: No accessory muscle use, No respiratory distress; chest expansion is symmetric, chest is bilaterally symmetric, lungs clear to auscultation Cardiovascular: regular rate-rhythm; No JVD; S1 and S2 Gastrointestional: No tender; soft, audible bowel sounds Extremities: no lower extremity edema bilateral Neurologic/Psychiatric: grossly intact (moves all extremities) Skin: No rash on exposed areas, No ulcerations on exposed areas Results/Procedures: Labs Microbiology 05/18/21 MRSA Screen - Final, Complete MRSA not isolated A/P: Assessment: Coronary artery disease: - Echocardiogram of 10-08-20 showed mild concenteric hypertrophy. LVEF 40-45%. Grade 1 diastolic dysfunction. Mod AoR. PASP 30-35 mmHg - Cath of 10/13/20: tandem 99% stenoses in the mid left anterior descending, which were successfully treated with deployment of a Mary 2.5 x 28 mm stent. The left circumflex artery has mild plaques. Right coronary artery has 95% mid vessel stenosis (not intervented on, she has not agreed yet) . Normal left ventricular end diastolic pressure. Moderate impairment of global left ventricular systolic function with ejection fraction approximately 40%. - Cardiac cath of 05-18-21: Successful intervention to a near total occlusion in the mid right coronary with Skypoint 2.5 x 8 mm stent with no significant residu al. Syncope - of undetermined etiology on 09/25/20, none since cor intervention Hypertension - treated chronically with losartan H/o severe anemia - due to GI bleed from PUD as documented on upper endoscopy by Dr [facility] - Musculoskeletal w/u in the ER after syncope of 09/25/20 showed acute spinous precess fractures of C6 and C7 Underweight - (BMI approx 15). Considerable, unintentional wgt loss since 2018, managed by her pcp H/O tobaccoism - Quit smoking in 2011 Mild, chronic, hyponatremia - of undetermined etiology, managed by her pcp Hard of hearing Plan: S/P successful coronary intervention on 05-18-21 Ok to discharge home today Continue DAPT Advise out pt f/u in 1-2 weeks TEMITOPE KUO MD FACP FAC CCDS May 19, 2021 16:29
== END 2021-05-19 10:30 | disposition home or self-care (01) ==
LOC: CATH 11:00 → CSD 11:27 → CATH 05-19 10:30
PROVIDERS: ATTEND Internal Medicine Cardiovascular Disease
DX: I25.10 Atherosclerotic heart disease of native coronary artery without angina pectoris (principal); H91.90 Unspecified hearing loss, unspecified ear; K21.9 Gastro-esophageal reflux disease without esophagitis; D64.9 Anemia, unspecified; R55 Syncope and collapse; I10 Essential (primary) hypertension; R63.6 Underweight; E87.1 Hypo-osmolality and hyponatremia; Z79.899 Other long term (current) drug therapy; Z79.82 Long term (current) use of aspirin; Z87.891 Personal history of nicotine dependence
CPT/HCPCS: 80053; 80061; 85027; 85610; 85730; 87081; C1725; C1769 ×2; C1874; C1887; C1894; C9600; 36415

== ENCOUNTER → 2021-05-24 | Outpatient (RCR) | payer MEDICARE ==
[~2021-05-24] MED LIST changes: -EPTIFIBATIDE BOLUS 10 ML IV ONE; -HEParin (CATH LAB) 2,000 ML IV ONE; -HEParin 1000 UNIT/ML (10ML VIAL) FOR BOLUS ONE; -LIDOCAINE 1% INJ 20 ML VIAL ONE; -MIDAZOLAM 5 MG/5 ML (VERSED) VIAL ONE; -NITRO DRIP 25000 MCG/D5W 250 ML IV ONE; -NS IV 1000 ML 1,000 ML ONE; -fentaNYL INJ 100 MCG/2 ML AMP ONE
== END | disposition home or self-care (01) ==
PROVIDERS: ATTEND Orthopaedic Surgery
DX: S82.031D Displaced transverse fracture of right patella, subsequent encounter for closed fracture with routine healing (principal); X58.XXXD Exposure to other specified factors, subsequent encounter

== ENCOUNTER → 2021-05-24 | Outpatient (CLI) | payer MEDICARE ==
--- NOTE | 2021-05-24 10:23 | Diagnostic Imaging Report ---
US RIGHT LOW EXT [id number] INDICATION: Right groin swelling and bruising after heart cath one week ago COMPARISON: None available. TECHNIQUE: Grayscale, color Doppler and spectral Doppler imaging of the right groin was performed. FINDINGS: Color Doppler imaging shows patency of the common femoral and superficial femoral arteries. There is no collection of blood flow to indicate pseudoaneurysm. No arteriovenous malformation. IMPRESSION: 1. No pseudoaneurysm or arterial venous malformation within the right groin. 2. No loculated fluid collection that would indicate hematoma. Dictated by: Dictated on workstation # [id number]
== END ==
LOC: RAD 09:08
PROVIDERS: ATTEND Internal Medicine Cardiovascular Disease
DX: I97.630 Postprocedural hematoma of a circulatory system organ or structure following a cardiac catheterization (principal)
CPT/HCPCS: 93926

== ENCOUNTER 2021-06-03 11:19 | Outpatient (RCR) | payer MEDICARE | END 2021-06-21 | disposition home or self-care (01) | LOC: ONC 11:19 | PROVIDERS: ATTEND Radiology Radiation Oncology | DX: R91.1 Solitary pulmonary nodule (principal); J44.9 Chronic obstructive pulmonary disease, unspecified; I25.10 Atherosclerotic heart disease of native coronary artery without angina pectoris; Z87.891 Personal history of nicotine dependence; Z79.02 Long term (current) use of antithrombotics/antiplatelets; R31.9 Hematuria, unspecified; Z85.828 Personal history of other malignant neoplasm of skin; Z79.899 Other long term (current) drug therapy; Z95.5 Presence of coronary angioplasty implant and graft | CPT/HCPCS: 99213 ==

== ENCOUNTER 2021-06-04 11:26 | Outpatient (RCR) | payer MEDICARE | END 2021-06-21 | disposition home or self-care (01) | PROVIDERS: ATTEND Orthopaedic Surgery | DX: S82.031D Displaced transverse fracture of right patella, subsequent encounter for closed fracture with routine healing (principal); X58.XXXD Exposure to other specified factors, subsequent encounter ==

== ENCOUNTER → 2021-06-16 | Outpatient (CLI) | payer MEDICARE | LOC: ORTHO 09:52 | PROVIDERS: ATTEND Orthopaedic Surgery | DX: S82.001D Unspecified fracture of right patella, subsequent encounter for closed fracture with routine healing (principal); X58.XXXD Exposure to other specified factors, subsequent encounter ==

== ENCOUNTER → 2021-07-26 | Outpatient (CLI) | payer MEDICARE ==
--- NOTE | 2021-07-26 14:27 | Diagnostic Imaging Report ---
EXAMINATION: CT CHEST WO. TECHNIQUE: Multiple contiguous axial images were obtained through the chest without the use of intravenous contrast. All CT scans use one or more of the following dose optimizing techniques: automated exposure control, MA and/or KvP adjustment based on a patient size and exam type, or iterative reconstruction. INDICATION: Lung cancer. COMPARISON: 07/28/2020. FINDINGS: Lungs and airway: Severe centrilobular emphysema is again noted. The pulmonary nodule in the right upper lobe has significantly decreased in volume and now has a more flattened configuration. This now measures approximately 8 x 8 mm (previously 13 x 12 mm when measured similarly). The margins are spiculated, likely due to surrounding post treatment change. No new pulmonary nodules have developed. Stable 3 mm lentiform nodule in the left upper lobe (image 49, series 3). Pleura: No pleural effusion or pneumothorax. Heart and mediastinum: No supraclavicular or axillary lymphadenopathy. No mediastinal or discrete hilar lymphadenopathy. Severe coronary artery calcifications are unchanged. Normal caliber thoracic aorta. No pericardial effusion. Upper abdomen: No concerning abnormality in the upper abdomen. Musculoskeletal: No lytic or blastic skeletal lesions. IMPRESSION: 1. Post treatment change in the right upper lobe with decreased size of the primary lung cancer. 2. No features of intrathoracic metastases. Dictated by: Dictated on workstation # [id number]
== END ==
LOC: RAD 09:23
PROVIDERS: ATTEND Radiology Radiation Oncology
DX: C34.90 Malignant neoplasm of unspecified part of unspecified bronchus or lung (principal)
CPT/HCPCS: 71250

== ENCOUNTER 2021-07-29 10:47 | Outpatient (RCR) | payer MEDICARE | END 2021-08-21 | disposition home or self-care (01) | LOC: ONC 10:47 | PROVIDERS: ATTEND Radiology Radiation Oncology | DX: R91.1 Solitary pulmonary nodule (principal); I25.10 Atherosclerotic heart disease of native coronary artery without angina pectoris; I11.9 Hypertensive heart disease without heart failure; I35.1 Nonrheumatic aortic (valve) insufficiency; E87.1 Hypo-osmolality and hyponatremia; R63.6 Underweight; Z68.1 Body mass index [BMI] 19.9 or less, adult; Z87.891 Personal history of nicotine dependence | CPT/HCPCS: 99213 ==

== ENCOUNTER 2021-10-11 09:04 | Emergency (ER) | payer MEDICARE ==
[~2021-10-11] VITALS: Ht 165.1 cm; Wt 39.9 kg
[2021-10-11 09:30] VITALS: BP 142/73
--- NOTE | 2021-10-11 10:07 | ED General ---
General Chief Complaint: Abdominal/GI Problems Stated Complaint: LIGHT HEADED - WEAK - BLACK STOOLS Nursing Triage Note: PT AMB TO [facility] 8 WITH COMPLAINT WEAKNESS, DIARRHEA, AND BLACK STOOLS. STATES STARTED MONDAY. Source of Information: Patient Exam Limitations: No Limitations History of Present Illness Date Seen by Provider: Oct 11, 2021 Time Seen by Provider: 09:50 Initial Comments Patient is an 81-year-old female who presents to the emergency department today with a chief complaint of feeling generally weak, a little dizzy having dark black stools since Monday and feeling like she did when she had an episode of bleeding ulcer in November 2020. Patient states the symptoms have been coming on for several weeks, 2-3 but worse in the last 3 days. She states her stools have been loose. She denies any fevers or chills. She does not really feel short of breath she is having no chest pain. No abdominal pain. She does take iron replacement every other day but states this has not generally made her stools black. She has had no energy to get up and around over the last 2 days. She has been laying in bed. She is on Plavix and daily baby aspirin, history of cardiac stents. She follows with Dr. Daniel. Her surgeon is Dr. CHASE. She has a scheduled appointment on Monday of this week with Dr. CHASE. She states she is compliant with her Protonix. She quit smoking in 2010. All other review of systems reviewed and negative except as stated Allergies and Home Medications Allergies Coded Allergies: Penicillins (Verified Allergy, Mild, Skin rash Several years ago, 02/16/21) hydrocodone (Verified Allergy, Mild, The patient states that the hy drocodone made her feel "goofy, 02/16/21) Patient Home Medication List Home Medication List Reviewed: Yes Aspirin (Aspirin) 81 Mg Tab.chew, 81 MG PO DAILY, (Reported) Entered as Reported by: MANOJ BRASWELL on 05/18/21 0947 Clopidogrel Bisulfate (Clopidogrel) 75 Mg Tablet, 75 MG PO 1200, (Reported) Entered as Reported by: ARTEM BLUM on 12/09/20 1441 Hydroxyzine HCl (Hydroxyzine HCl) 25 Mg Tablet, 25 MG PO Q6H PRN for anxiety Prescribed by: OTTO CALLOWAY on 10/11/21 1128 Pantoprazole Sodium (Pantoprazole Sodium) 40 Mg Tablet.dr, 40 MG PO BIDAC Prescribed by: CASIE COSTA on 03/02/21 0859 Sucralfate (Carafate) 1 Gram Tablet, 1 GM PO Q6H Prescribed by: OTTO CALLOWAY on 10/11/21 1128 [Balance Of Nature] , 1 EA PO DAILY, (Reported) Entered as Reported by: ARTEM BLUM on 02/23/21 0135 Review of Systems Review of Systems Constitutional: see HPI, malaise, weakness EENTM: no symptoms reported Respiratory: no symptoms reported Cardiovascular: no symptoms reported Gastrointestinal: other (Black stool) Genitourinary: no symptoms reported : No Musculoskeletal: no symptoms reported Skin: no symptoms reported Psychiatric/Neurological: Anxiety All Other Systems Reviewed Negative Unless Noted: Yes Past Hrdamog-Kjexve-Msnlzy Hx Patient Social History Tobacco Use?: No Smoking Status: Former Smoker Use of E-Cig and/or Vaping dev: No Substance use?: No Alcohol Use?: No Alcohol type: Wine Alcohol Frequency: Couple times a week Pt feels they are or have been: No Immunizations Up To Date Tetanus Booster (TDap): Unknown First/Initial COVID19 Vaccinat: June Second COVID19 Vaccination Sivakumar: June Third COVID19 Vaccination Date: June Seasonal Allergies Seasonal Allergies: No Past Medical History Surgery/Hospitalization HX: appendectomy, tonsilectomy, hysterectomy, varicose vein stripping Surgeries: Yes (VARICOSE VEIN STRIPPING) Appendectomy, Coronary Stent, Hysterectomy, Orthopedic, Tonsillectomy Respiratory: Yes (Pulmonary lesion) Currently Using CPAP: No Currently Using BIPAP: No Cardiac: Yes ("WEAK HEART MUSCLE") Coronary Artery Disease, High Cholesterol, Hypertension Neurological: No Female Reproductive Disorders: Denies [employer] DIRECTOR History: Hysterectomy Sexually Transmitted Disease: No HIV/AIDS: No Genitourinary: No Gastrointestinal: No Gastrointestinal Bleed Musculoskeletal: No Arthritis Endocrine: No HEENT: No Cancer: No Psychosocial: No Integumentary: No Blood Disorders: No Physical Exam Vital Signs Vital Signs - First Documented 10/11/21 09:30 Temp 35.8 Pulse 60 Resp 28 B/P (MAP) 142/73 (96) Pulse Ox 98 O2 Delivery Room Air Capillary Refill : Less Than 3 Seconds Height, Weight, BMI Height: '" Weight: lbs. oz. kg; 14.00 BMI Method: General Appearance: No Apparent Distress, WD/WN Eyes: Bilateral Eye Normal Inspection, Bilateral Eye PERRL, Bilateral Eye EOMI, Bilateral Eye Conjunctivae Pale HEENT: Pharynx Normal, Moist Mucous Membranes Neck: Normal Inspection Respiratory: Lungs Clear, Normal Breath Sounds, No Accessory Muscle Use, No Respiratory Distress Cardiovascular: Regular Rate, Rhythm, Normal Peripheral Pulses Gastrointestinal: Non Tender, Soft Genital/Rectal: Other (Trace heme positive stool on digital rectal exam with dark black stool noted on exam, exam is nontender) Extremity: Normal Capillary Refill, Normal Inspection, Normal Range of Motion, Non Tender, No Pedal Edema Neurologic/Psychiatric: Alert, Oriented x3, No Motor/Sensory Deficits, Other (Slightly anxious) Skin: Warm/Dry, Pallor Progress/Results/Core Measures Suspected Sepsis SIRS Temperature: Pulse: 60 Respiratory Rate: 28 Laboratory Tests 10/11/21 09:42: White Blood Count 4.7 Blood Pressure 142 /73 Mean: 96 Laboratory Tests 10/11/21 09:42: Creatinine 0.73, Platelet Count 242, Total Bilirubin 0.4 Results/Orders Lab Results Laboratory Tests Test 10/11/21 09:42 Range/Units White Blood Count 4.7 4.3-11.0 10^3/uL Red Blood Count 3.00 L 3.80-5.11 10^6/uL Hemoglobin 9.1 L 11.5-16.0 g/dL Hematocrit 30 L 35-52 % Mean Corpuscular Volume 99 80-99 fL Mean Corpuscular Hemoglobin 30 25-34 pg Mean Corpuscular Hemoglobin Concent 31 L 32-36 g/dL Red Cell Distribution Width 17.8 H 10.0-14.5 % Platelet Count 242 130-400 10^3/uL Mean Platelet Volume 9.4 9.0-12.2 fL Immature Granulocyte % (Auto) 0 % Neutrophils (%) (Auto) 71 42-75 % Lymphocytes (%) (Auto) 18 12-44 % Monocytes (%) (Auto) 7 0-12 % Eosinophils (%) (Auto) 3 0-10 % Basophils (%) (Auto) 1 0-10 % Neutrophils # (Auto) 3.3 1.8-7.8 10^3/uL Lymphocytes # (Auto) 0.9 L 1.0-4.0 10^3/uL Monocytes # (Auto) 0.3 0.0-1.0 10^3/uL Eosinophils # (Auto) 0.1 0.0-0.3 10^3/uL Basophils # (Auto) 0.0 0.0-0.1 10^3/uL Immature Granulocyte # (Auto) 0.0 0.0-0.1 10^3/uL Sodium Level 137 135-145 MMOL/L Potassium Level 4.1 3.6-5.0 MMOL/L Chloride Level 104 98-107 MMOL/L Carbon Dioxide Level 22 21-32 MMOL/L Anion Gap 11 5-14 MMOL/L Blood Urea Nitrogen 19 H 7-18 MG/DL Creatinine 0.73 0.60-1.30 MG/DL Estimat Glomerular Filtration Rate 82 BUN/Creatinine Ratio 26 Glucose Level 107 H 70-105 MG/DL Calcium Level 8.9 8.5-10.1 MG/DL Corrected Calcium 8.8 8.5-10.1 MG/DL Total Bilirubin 0.4 0.1-1.0 MG/DL Aspartate Amino Transf (AST/SGOT) 17 5-34 U/L Alanine Aminotransferase (ALT/SGPT) 12 0-55 U/L Alkaline Phosphatase 70 40-136 U/L Total Protein 6.9 6.4-8.2 GM/DL Albumin 4.1 3.2-4.5 GM/DL My Orders Orders - OTTO CALLOWAY MD Ed Iv/Invasive Line Start (10/11/21 10:04) Cbc With Automated Diff (10/11/21 10:04) Comprehensive Metabolic Panel (10/11/21 10:04) Ns Iv 500 Ml (Sodium Chloride 0.9%) (10/11/21 10:15) Sucralfate Tablet (Carafate Tablet) (10/11/21 11:45) Famotidine Tablet (Pepcid Tablet) (10/11/21 11:45) Vital Signs/I&O 10/11/21 09:30 Temp 35.8 Pulse 60 Resp 28 B/P (MAP) 142/73 (96) Pulse Ox 98 O2 Delivery Room Air Capillary Refill : Less Than 3 Seconds Blood Pressure Mean: 96 Progress Note : Time: 11:29 Progress Note Patient seen and examined, 81-year-old with history of coronary artery disease on Plavix and daily baby aspirin presents with a chief complaint of generalized fatigue, weakness malaise. Dark stool onset 2 days ago. Decreased appetite. No abdominal pain. No bright red blood/per rectum. Patient is on pantoprazole daily. She states she is compliant with this medication. She is a former smoker. Evaluation includes basic laboratory studies with a digital rectal exam confirming the above. She is found to be anemic at 9.1 hemoglobin. Most recent laboratory studies in the computer show a hemoglobin in April 2010. Her vital signs are stable. She is not tachycardic heart is regular in the 60s. Blood pressure is in the 130s to 140s systolic. Clinically she is very stable. I discussed the case with Dr. CHASE who recommends adding Carafate for the next 2 weeks 4 times daily and he will see her at her scheduled appointment on Monday. The patient also asks for some medication for her anxiety. We will add Vistaril, 25 mg tablets every 6 hours as needed. Patient is encouraged to keep her appointment with Dr. CHASE, follow-up with Dr. Guzman and return precautions have been given. She verbalized understanding. All questions have been sought and answered. 1135 notified by nursing staff that the patient is unable allergic to Carafate, will add Pepcid 20 mg twice daily for 2 weeks until she has further management by Dr. CHASE Departure Communication (Admissions) Time/Spoke to Consulting Phy: 11:[address] CHASE. He states with relationship to her vital signs and current laboratory studies he would be comfortable seeing her as an outpatient in clinic at her scheduled appointment on Monday. He recommends adding Carafate 1 g 4 times daily for the next 2 weeks. I advised her to take her iron daily until her visit with him. Impression Primary Impression: GIB (gastrointestinal bleeding) Qualified Codes: K92.2 - Gastrointestinal hemorrhage, unspecified Additional Impressions: History of ulcer disease Anemia Qualified Codes: D64.9 - Anemia, unspecified Anxiety about health Disposition: 01 HOME, SELF-CARE Condition: Stable Departure-Patient Inst. Decision time for Depature: 11:25 Referrals: OSIEL GUZMAN MD (PCP/Family) Primary Care Physician GODWIN CHASE MD Patient Instructions: Gastrointestinal Bleeding Add. Discharge Instructions: We are adding Pepcid, 20mg 2 times a day for the next 2 weeks to your medication regimen. Take your iron supplement daily until you see Dr. CHASE on Monday. If you develop worse weakness, especially with shortness of breath or feel like you are about to pass out or have a passing out spell you will need to come back to the emergency room (obviously) for further evaluation, management and admission. Please keep your appointment with Dr. CHASE on Monday. You should also follow-up with Dr. Guzman. I am also adding hydroxyzine(Vistaril) 25 mg every 6 hours as needed for anxiety. This medication may make you a little sleepy. Scripts Famotidine (Pepcid) 20 Mg Tablet 20 MG PO BID, #28 TAB Prov: OTTO CALLOWAY MD 10/11/21 Hydroxyzine HCl (Hydroxyzine HCl) 25 Mg Tablet 25 MG PO Q6H PRN for anxiety, #12 TAB Prov: OTTO CALLOWAY MD 10/11/21 Copy Copies To 1: GODWIN CHASE MD Copies To 2: OSIEL GUZMAN MD, KATHRYN M MD Oct 11, 2021 10:07
[2021-10-11 10:11] LABS: BASOPHILS % (AUTO) 1 % (0-10); EOSINOPHILS # (AUTO) 0.1 10^3/uL (0.0-0.3); EOSINOPHILS % (AUTO) 3 % (0-10); HEMATOCRIT 30 % (35-52); HEMOGLOBIN 9.1 g/dL (11.5-16.0); LYMPHOCYTES # (AUTO) 0.9 10^3/uL (1.0-4.0); LYMPHOCYTES % (AUTO) 18 % (12-44); MEAN CORPUSCULAR HEMOGLOBIN 30 pg (25-34); MEAN CORPUSCULAR HGB CONC 31 g/dL (32-36); MEAN CORPUSCULAR VOLUME 99 fL (80-99); MEAN PLATELET VOLUME 9.4 fL (9.0-12.2); MONOCYTES # (AUTO) 0.3 10^3/uL (0.0-1.0); MONOCYTES % (AUTO) 7 % (0-12); NEUTROPHILS # (AUTO) 3.3 10^3/uL (1.8-7.8); NEUTROPHILS % (AUTO) 71 % (42-75); PLATELET COUNT 242 10^3/uL (130-400); WHITE BLOOD COUNT 4.7 10^3/uL (4.3-11.0)
[2021-10-11 10:15] LABS: ALBUMIN 4.1 GM/DL (3.2-4.5); POTASSIUM 4.1 MMOL/L (3.6-5.0)
[2021-10-11] MEDS ORDERED: NS IV 500 ML 500 ML IV SCH (10:15)
[2021-10-11 10:16] LABS: CALCIUM 8.9 MG/DL (8.5-10.1)
[2021-10-11 10:17] LABS: TOTAL PROTEIN 6.9 GM/DL (6.4-8.2)
[2021-10-11 10:19] LABS: BILIRUBIN,TOTAL 0.4 MG/DL (0.1-1.0)
[2021-10-11 10:21] LABS: CREATININE SERUM 0.73 MG/DL (0.60-1.30)
[2021-10-11] MEDS ORDERED: SUCR1TAB36 PO (11:28)
[2021-10-11] MEDS ORDERED: HYDR-700 PO (11:28)
[2021-10-11] MEDS ORDERED: FAMO-119 PO (11:35)
[2021-10-11] MEDS ORDERED: SUCRALFATE 1 GM (CARAFATE) TAB PO ONE (11:45)
[2021-10-11] MEDS ORDERED: FAMOTIDINE 20 MG (PEPCID) TABLET PO ONE (11:45)
== END 2021-10-11 11:45 | disposition home or self-care (01) ==
LOC: EDUNIT# 09:04 → ER 09:06
DX: K92.2 Gastrointestinal hemorrhage, unspecified (principal); D64.9 Anemia, unspecified; F41.1 Generalized anxiety disorder; I25.10 Atherosclerotic heart disease of native coronary artery without angina pectoris; Z87.891 Personal history of nicotine dependence; Z87.19 Personal history of other diseases of the digestive system; Z79.02 Long term (current) use of antithrombotics/antiplatelets; Z79.82 Long term (current) use of aspirin; Z79.899 Other long term (current) drug therapy; Z90.49 Acquired absence of other specified parts of digestive tract; Z90.710 Acquired absence of both cervix and uterus
CPT/HCPCS: 36415; 80053; 85025

== ENCOUNTER → 2021-10-14 | Outpatient (CLI) | payer MEDICARE ==
[~2021-10-14] MED LIST changes: +FAMO-119 PO; +HYDR-700 PO; +SUCR1TAB36 PO
== END ==
LOC: LABNPT 08:00
PROVIDERS: ATTEND Surgery
DX: U07.1 COVID-19 (principal)
CPT/HCPCS: 87636

== ENCOUNTER → 2022-01-24 | Outpatient (CLI) | payer MEDICARE ==
--- NOTE | 2022-01-24 16:37 | Diagnostic Imaging Report ---
PROCEDURE: CT chest without contrast. TECHNIQUE: Multiple contiguous axial images were obtained through the chest without the use of intravenous contrast. Auto Exposure Controls were utilized during the CT exam to meet ALARA standards for radiation dose reduction. INDICATION: Lung cancer followup. COMPARISON: CT of 07/26/2021. FINDINGS: The irregular nodule in the right upper lobe has decreased in density and is predominately sub-solid. It measures about 9 mm x 12 mm. Perilesional fibrotic changes persist. No new lung mass. Chronic COPD and air trapping are stable. There is no axillary, hilar, or mediastinal lymphadenopathy. The ectatic atherosclerotic thoracic aorta is stable. The upper abdomen shows the adrenals to be intact with a partially visualized nonfocal unopacified liver. No effusion or pneumothorax. 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 No lymphadenopathy. No adverse development. Atherosclerotic vascular ectasia and mild cardiomegaly, unchanged. Dictated by: Dictated on workstation # [id number]
== END ==
LOC: RAD 12:15
PROVIDERS: ATTEND Radiology Radiation Oncology
DX: R91.1 Solitary pulmonary nodule (principal); C34.90 Malignant neoplasm of unspecified part of unspecified bronchus or lung; J44.9 Chronic obstructive pulmonary disease, unspecified; I25.10 Atherosclerotic heart disease of native coronary artery without angina pectoris; I51.7 Cardiomegaly
CPT/HCPCS: 71250

== ENCOUNTER 2022-01-27 08:48 | Outpatient (RCR) | payer MEDICARE | END 2022-02-21 | disposition home or self-care (01) | LOC: ONC 08:48 | PROVIDERS: ATTEND Radiology Radiation Oncology | DX: R91.1 Solitary pulmonary nodule (principal); I25.10 Atherosclerotic heart disease of native coronary artery without angina pectoris; I11.9 Hypertensive heart disease without heart failure; I35.1 Nonrheumatic aortic (valve) insufficiency; E87.1 Hypo-osmolality and hyponatremia; R63.6 Underweight; J44.9 Chronic obstructive pulmonary disease, unspecified; Z68.1 Body mass index [BMI] 19.9 or less, adult; Z87.891 Personal history of nicotine dependence | CPT/HCPCS: 99213 ==

== ENCOUNTER 2022-03-04 19:07 | Emergency (ER) | payer MEDICARE ==
--- NOTE | 2022-03-04 19:38 | ED Integumentary General ---
General Chief Complaint: Skin/Wound Problems Stated Complaint: L LEG LAC Source: patient History of Present Illness Date Seen by Provider: Mar 04, 2022 Time Seen by Provider: 19:18 Initial Comments PT ARRIVES VIA POV WITH A FEMALE PT HAD A BIOPSY OF A SKIN LESION ON HER LEFT ANKLE [address] CASAS--BASAL CELL CANCER PT STATES SHE WENT BACK YESTERDAY AND DR. CASAS "SCRAPED IT AND FROZE IT" PT STATES THE AREA BLED A LITTLE BIT THIS MORNING BUT IT STOPPED. THIS AFTERNOON AROUND 1630, IT STARTED BLEEDING HEAVILY AND HAS NOT STOPPED. SHE ARRIVES WITH GAUZED TAPED TO THE AREA AND HER FOOT AND ANKLE IN PLASTIC BAGS, ALL SATURATED WITH BLOOD NO SIGNIFICANT PAIN TO THE AREA PT DENIES BUMPING IT, ETC. SHE IS ON PLAVIX SHE ALSO DRINKS RED WINE EVERY DAY. NO BLEEDING OR EXCESSIVE BRUISING FROM OTHER SITES. NO PETECHIAE. PCP DR. MO DERMATOLOGY: DR. CASAS Allergies and Home Medications Allergies Coded Allergies: Penicillins (Verified Allergy, Mild, Skin rash Several years ago, 02/16/21) hydrocodone (Verified Allergy, Mild, The patient states that the hydrocodone made her feel "goofy, 02/16/21) Patient Home Medication List Aspirin (Aspirin) 81 Mg Tab.chew, 81 MG PO DAILY, (Reported) Entered as Reported by: MANOJ BRASWELL on 05/18/21 0947 Clopidogrel Bisulfate (Clopidogrel) 75 Mg Tablet, 75 MG PO 1200, (Reported) Entered as Reported by: ARTEM BLUM on 12/09/20 1441 Famotidine (Pepcid) 20 Mg Tablet, 20 MG PO BID Prescribed by: OTTO CALLOWAY on 10/11/21 1135 Hydroxyzine HCl (Hydroxyzine HCl) 25 Mg Tablet, 25 MG PO Q6H PRN for anxiety Prescribed by: OTTO CALLOWAY on 10/11/21 1128 Pantoprazole Sodium (Pantoprazole Sodium) 40 Mg Tablet., 40 MG PO BIDAC Prescribed by: CASIE COSTA on 03/02/21 0859 [Balance Of Nature] , 1 EA PO DAILY, (Reported) Entered as Reported by: ARTEM BLUM on 02/23/21 1555 Review of Systems Review of Systems Constitutional: no symptoms reported Skin: see HPI Past Jowowkx-Vintvk-Nwqbez Hx Patient Social History Smoking Status: Former Smoker Substance use?: No Alcohol Use?: Yes Alcohol type: Wine Alcohol Frequency: Daily Immunizations Up To Date Tetanus Booster (TDap): Unknown First/Initial COVID19 Vaccinat: June Second COVID19 Vaccination Sivakumar: June Third COVID19 Vaccination Date: June Seasonal Allergies Seasonal Allergies: No Past Medical History Surgery/Hospitalization HX: appendectomy, tonsilectomy, hysterectomy, varicose vein stripping Surgeries: Yes (VARICOSE VEIN STRIPPING) Appendectomy, Cardiac, Coronary Stent, Hysterectomy, Orthopedic, Tonsillectomy Respiratory: Yes (Pulmonary lesion) Currently Using CPAP: No Currently Using BIPAP: No Cardiac: Yes ("WEAK HEART MUSCLE") Coronary Artery Disease, High Cholesterol, Hypertension Neurological: No Female Reproductive Disorders: Denies [employer] History: Hysterectomy, Menopausal Sexually Transmitted Disease: No HIV/AIDS: No Genitourinary: No Gastrointestinal: Yes Gastrointestinal Bleed Musculoskeletal: Yes Arthritis Endocrine: No HEENT: No Cancer: Yes Skin Did You Recieve Any Treatments: Yes What Type of Treatment Did You: Surgical Intervention BASAL CELL REMOVED FROM LEFT ANKLE--01/2022 Psychosocial: No Integumentary: Yes (SKIN CANCER) Blood Disorders: No Physical Exam Vital Signs Capillary Refill : General Appearance: WD/WN, no apparent distress, other (MILDLY ANXIOUS) Extremities: no pedal edema, normal capillary refill, other (MEDIAL MALLEOLUS AREA OF LEFT ANKLE WITH 1 1/2 CM DIAMTER WOUND WITH PROFUSE ACTIVE BLEEDING. ) Neurologic/Psychiatric: no motor/sensory deficits, alert, oriented x 3 Procedures/Interventions Other Wound Location MEDIAL LEFT ANKLE Wound Length (cm): 1.5 Wound Explored: clean Betadine Prep?: No (BETASEPT) Anesthesia: 1% Lidocaine Sterile Dressing Applied?: Yes Progress AREA CLEANSED WITH BETASEPT INJECTED WITH 1% LIDOCAINE PLAIN ENTIRE BASE OF WOUND CAUTERIZED WITH ELECTROCAUTERY. ALL BLEEDING STOPPED. NON-ADHERENT DRESSING APPLIED OVER WOUND AND THEN RE-INFORCED WITH ABD DRESSING AND KERLEX GAUZE. PT TOLERATED WELL. Departure Impression Primary Impression: BLEEDING FROM SURGICAL SITE LEFT ANKLE Disposition: 01 HOME, SELF-CARE Condition: Improved Departure-Patient Inst. Decision time for Depature: 19:37 Referrals: ROBSON MO DO (PCP/Family) Primary Care Physician ROBSON CASAS MD Patient Instructions: Wound Care (DC) Add. Discharge Instructions: LEAVE DRESSING IN PLACE FOR 24 HOURS AFTER THAT, YOU MAY VERY GENTLY CLEAN THE AREA WITH SOAP AND WATER DAILY AND GENTLY PAT DRY. APPLY FRESH DRESSING DAILY ELEVATE FOOT MUCH POSSIBLE FOLLOW UP WITH DR. CASAS ON MONDAY FOR RECHECK RETURN TO ER IF BLEEDING RETURNS All discharge instructions reviewed with patient and/or family. Voiced under standing. TODD CESAR DO Mar 04, 2022 19:38
[2022-03-04 20:03] VITALS: BP 156/79
== END 2022-03-04 20:07 | disposition home or self-care (01) ==
LOC: EDUNIT# 19:07 → ER 19:08
DX: M96.831 Postprocedural hemorrhage of a musculoskeletal structure following other procedure (principal); Z87.891 Personal history of nicotine dependence

== ENCOUNTER → 2022-08-01 | Outpatient (CLI) | payer MEDICARE ==
--- NOTE | 2022-08-01 15:58 | Diagnostic Imaging Report ---
EXAMINATION: CT chest without contrast. TECHNIQUE: Multiple contiguous axial images were obtained through the chest without the use of intravenous contrast. All CT scans use one or more of the following dose optimizing techniques: automated exposure control, MA and/or KvP adjustment based on patient size and exam type or iterative reconstruction. HISTORY: History of lung cancer. Follow-up. COMPARISON: 01/24/2022. FINDINGS: The heart size is within normal limits. No pericardial effusion is present. There is calcified aortic and coronary atherosclerotic plaque without aneurysm. There is no mediastinal, hilar, or axillary lymphadenopathy. Spiculated nodule is seen in the right upper lobe measuring 1.5 x 1.0 cm and 1.5 cm craniocaudal, similar to the prior exam. Surrounding architectural distortion and interlobular septal thickening is seen. No new nodules or focal consolidations. Centrilobular emphysema is seen in the lungs. Minimal bibasilar atelectasis is present. There is no pleural effusion or pneumothorax. The osseous structures demonstrate no acute abnormalities. Limited views of the upper abdominal structures demonstrate no acute abnormalities. Both adrenal glands are unremarkable. IMPRESSION: 1. Stable spiculated nodule in the right upper lobe. No new suspicious pulmonary nodules. Recommend continued follow-up, as indicated. 2. Centrilobular emphysema. 3. No lymphadenopathy in the chest. Dictated by: Dictated on workstation # [id number]
== END ==
LOC: RAD 11:23
PROVIDERS: ATTEND Radiology Radiation Oncology
DX: C34.11 Malignant neoplasm of upper lobe, right bronchus or lung (principal); J43.2 Centrilobular emphysema
CPT/HCPCS: 71250

== ENCOUNTER 2022-08-04 08:53 | Outpatient (RCR) | payer MEDICARE | END 2022-08-21 | disposition home or self-care (01) | LOC: ONC 08:53 | PROVIDERS: ATTEND Radiology Radiation Oncology | DX: I25.10 Atherosclerotic heart disease of native coronary artery without angina pectoris (principal); I11.9 Hypertensive heart disease without heart failure; I35.1 Nonrheumatic aortic (valve) insufficiency; E87.1 Hypo-osmolality and hyponatremia; R63.6 Underweight; R55 Syncope and collapse; Z68.1 Body mass index [BMI] 19.9 or less, adult; Z87.891 Personal history of nicotine dependence | CPT/HCPCS: 99213 ==